=== PATIENT | male | born 1985 | race Caucasian/White ===

== ENCOUNTER 2024-04-04 12:24 | Outpatient (OUT) | payer MEDICARE, MEDICAID, SELFPAY ==
[2024-04-04 13:36] LABS: Basophils Percent Auto 0.1 % (0.2-2.0); Eosinophils Absolute Auto 0.5 10^3/uL (0.0-0.7); Eosinophils Percent Auto 6.7 % (0.9-7.0); Hematocrit 34.6 % (42.0-54.0); Hemoglobin 11.2 g/dL (14.0-18.0); Immature Granulocytes Abs Auto 0.02 10^3/uL (0.00-0.03); Immature Granulocytes Pct Auto 0.3 % (0.0-0.5); Lymphocytes Absolute Auto 2.4 10^3/uL (1.2-3.8); Lymphocytes Percent Auto 31.2 % (20.5-60.0); Mean Corpuscular HGB Conc 32.4 g/dL (29.9-35.2); Mean Corpuscular Hemoglobin 31.9 pg (25.9-34.0); Mean Corpuscular Volume 98.6 fL (80.0-94.0); Monocytes Absolute Auto 0.8 10^3/uL (0.3-0.8); Monocytes Percent Auto 9.9 % (1.7-12.0); Neutrophils Percent Auto 51.8 % (43.0-75.0); Platelet Count 192 10^3/uL (150-450); Red Blood Count 3.51 10^6/uL (4.70-6.10); Red Cell Distribution Width 13.7 % (11.0-15.0); White Blood Count 7.7 10^3/uL (4.0-11.0)
[2024-04-04 15:56] LABS: Alanine Aminotransferase 28 U/L (16-63); Albumin Globulin Ratio 1.3; Alkaline Phosphatase 166 U/L (46-116); Anion Gap 18.3; Aspartate Amino Transferase 21 U/L (15-37); Bilirubin Total 0.3 mg/dL (0.2-1.0); Calcium 9.5 mg/dL (8.5-10.1); Carbon Dioxide 20.8 mmol/L (21.0-32.0); Chloride 106 mmol/L (98-107); Chol HDL Ratio 3.1; Cholesterol 173 mg/dL (<=200); Estimated GFR (African America 22 (>=60); Estimated GFR (Non-African Ame 18 (>=60); Free T3 2.39 pg/mL (2.18-3.98); Glucose 95 mg/dL (74-106); HDL Cholesterol 56 mg/dL (40-60); LDL Cholesterol Calculated 91.2 mg/dL; Potassium 5.1 mmol/L (3.5-5.1); Prostate Specific Antigen Scrn 0.93 ng/mL (<=4.00); Sodium 140 mmol/L (136-145); Thyroid Stimulating Hormone 1.949 uIU/mL (0.358-3.740); Triglycerides 129 mg/dL (<=150); VLDL CHOLESTEROL 25.8 mg/dL
[2024-04-04 15:59] LABS: Estimated Average Glucose 100 mg/dL; Glycohemoglobin A1C 5.1 % (4.5-6.2)
== END 2024-04-04 12:25 | disposition home or self-care (01) ==
LOC: LAB 12:29
PROVIDERS: PCP Family Medicine; Visit Provider Family Medicine
DX: D64.9 Anemia, unspecified (principal); N18.6 End stage renal disease; I15.1 Hypertension secondary to other renal disorders; J96.11 Chronic respiratory failure with hypoxia; E21.3 Hyperparathyroidism, unspecified
CPT/HCPCS: 36415; 80053; 80061; 83036; 84436; 84443; 84481; 85025; G0103

== ENCOUNTER 2024-04-09 16:42 | Outpatient (REF) | payer MEDICARE, MEDICAID, SELFPAY ==
[2024-04-09 17:01] LABS: Internal Control Within Normal Limits; Occult Blood Negative
== END 2024-04-09 16:43 | disposition home or self-care (01) ==
LOC: LAB 16:42
PROVIDERS: PCP Family Medicine; Visit Provider Family Medicine
DX: N18.6 End stage renal disease (principal); I15.1 Hypertension secondary to other renal disorders; D64.9 Anemia, unspecified; J96.11 Chronic respiratory failure with hypoxia; E21.3 Hyperparathyroidism, unspecified
CPT/HCPCS: G0328

== ENCOUNTER 2024-08-22 15:19 | Outpatient (OUT) | payer MEDICARE, MEDICAID, SELFPAY ==
--- NOTE | 2024-08-22 15:20 | XR_ITS ---
The [address] [address] Patient Name: RIGO REDDY MRN: [id number] date: 1985 Sex: M Assigned Patient Location: RAD Current Patient Location: RAD Accession/Order Number: [id number] Exam Date: 08/22/2024 15:23 Report Date: 08/22/2024 15:45 At the request of: DEA COCHRAN Procedure: XR chest 2V EXAM: CHEST 2 VIEWS HISTORY: Acute Cough TECHNIQUE: PA and lateral views chest. COMPARISON: None. FINDINGS: The lungs are hyperinflated with background emphysema that is worse in the right upper lobe. There is no focal lung consolidation, pleural effusion or pneumothorax. There is a vague 8 mm nodule in the right upper lobe. Pulmonary vasculature is within normal limits. The cardiomediastinal silhouette is normal. XR/XR chest 2V IMPRESSION: 1. Chronic obstructive pulmonary disease without focal consolidation or effusion. Recommend followup imaging if symptoms worsen or persist. 2. Vague 8 mm nodule in the right upper lobe. Given background emphysema, recommend nonemergent/outpatient chest CT for further evaluation. Electronically authenticated by: DIVYA HO Date: 08/22/2024 15:45
== END 2024-08-22 15:20 | disposition home or self-care (01) ==
LOC: RAD 15:19
PROVIDERS: PCP Family Medicine; Visit Provider Internal Medicine
DX: R05.1 Acute cough (principal); R91.1 Solitary pulmonary nodule
CPT/HCPCS: 71046

== ENCOUNTER 2024-09-26 15:00 | Outpatient (OUT) | payer MEDICARE, MEDICAID, SELFPAY ==
--- NOTE | 2024-09-26 15:03 | CT_ITS ---
[address] [address] Patient Name: RIGO REDDY MRN: [id number] date: 1985 Sex: M Assigned Patient Location: CT Current Patient Location: Accession/Order Number: [id number] Exam Date: 09/26/2024 15:28 Report Date: 09/27/2024 07:53 At the request of: DEA COCHRAN Procedure: CT chest wo con EXAMINATION: CT chest wo con HISTORY: Solitary Pulmonary Nodule COMPARISON: 03/18/2021, 08/22/2024 TECHNIQUE: Multi-planar CT images were created with IV contrast. Axial, Coronal, and Sagittal images. Dose reduction techniques were achieved by using automated exposure control and/or adjustment of mA and/or kV according to patient size and/or use of iterative reconstruction technique. FINDINGS: LUNGS: Severe diffuse bilateral centrilobular emphysema. Moderate diffuse bronchiectasis with peribronchial thickening. Scattered stable nodules the largest solid noncalcified nodule in the right lung measures 7.9 mm along the major fissure axial image #29. Area of ill-defined soft tissue density medial basilar segment of the left lower lobe measuring 1.8 x 1.4 cm, axial image 77 PLEURA: No mass, effusion, or pneumothorax. VASCULATURE: No abnormality. SIRENA: No mass or adenopathy. MEDIASTINUM: No mass or adenopathy. CARDIAC: No enlargement or pericardial effusion Coronary arteries: Mild calcifications AORTA: No aortic aneurysm. CHEST WALL: No mass or axillary adenopathy. BONES: No bone lesion or fracture. LIMITED ABDOMEN: Severe bilateral renal atrophy OTHER: Negative. CT/CT chest wo con IMPRESSION: Stable emphysema and scattered pulmonary nodules Lung-RADS 2 FINDINGS: Solid nodule(s): <6 mm or new <4 mm; part solid nodule(s) <6 mm total diameter on baseline screening; nonsolid nodule(s) (GGN): <20 mm or greater than/equal to 20 mm and unchanged or slowly growing; category 3 or 4 nodules unchanged for greater than/equal to 3 months. MANAGEMENT: Continue annual screening with LDCT in 12 months. Electronically authenticated by: JUSTYN ZARAGOZA Date: 09/27/2024 07:53
== END 2024-09-26 15:01 | disposition home or self-care (01) ==
LOC: CT 15:00
PROVIDERS: PCP Family Medicine; Visit Provider Internal Medicine
DX: R91.1 Solitary pulmonary nodule (principal); J43.9 Emphysema, unspecified
CPT/HCPCS: 71250

== ENCOUNTER 2024-10-18 17:53 | Emergency (ER) | payer MEDICARE, MEDICAID, SELFPAY ==
[2024-10-18 18:01] VITALS: BP 129/97; PULSE 97; TEMP 37.4; O2SAT 97; BMI 22.2
--- OUTSIDE RECORDS SUMMARY | 2024-10-18 18:08 | XMS_ITS | CCD ---
Author Organization [facility] Care Team Providers Care [employer] Associate Name Role Phone PHYSICIAN, DEFAULT Unavailable Unavailable PHYSICIAN, DEFAULT Unavailable Unavailable DRE JAFFE Unavailable Unavailable Denis Melvin MD Primary Care Provider JUSTYN ALVAREZ Referring Unavailable DENIS MELVIN Primary Care Unavailable Denis Melvin MD Primary Care Provider DR DENIS MELVIN Admitting Unavailable OLEGARIO, DR BARRIOS Attending Unavailable DR DENIS MELVIN Primary Care Unavailable DR DENIS MELVIN Consulting Unavailable COTY MARVIN Admitting Unavailable COTY MARVIN Attending Unavailable OLEGARIO, DR BARRIOS Primary Care Unavailable COTY MARVIN Consulting Unavailable MD Denis Melvin Primary Care Provider MD Dre Cardoza Emergency Provider MD Sofia Barber Admit Provider MD Sofia Barber Attending Provider MD Melina Garcia Other Provider MD Kostas Wade Other Provider DO Van Bernardo Other Provider MD Ceferino Godinez Attending Provider MD Alejandro Escalera Other Provider [phone] ELOINA Mendieta Emergency Provider MD Michael Gonzalez Admit Provider MD Michael Gonzalez Attending Provider MD Gabby Bedolla Other Provider Asaad, MD Imad Other Provider MD Spencer Dyson Admit Provider MD Spencer Dyson Attending Provider Kostas Wade Unavailable MD Jessica Macdonald Other Provider MD Aureliano Rangel Other Provider MD David Zayas Other Provider VICTORIA Rose Other Provider MD Jami Grimes Other Provider MD Juve Blackwell Other Provider [phone] MD Edna Blanco Other Provider [phone] DO Jared Horvath Other Provider MD Kiya Ortega Other Provider MD Dre Kowalski Other Provider MD Antonio Lopez Other Provider DO Broderick Sesay Other Provider MD Rajendra Pierce Attending Provider MD Rojas No Other Provider [phone] Denis Melvin MD Primary Care Provider MD Kostas Wade Attending Provider Jessica Macdonald Consulting Unavailable Spencer Dyson Admitting Unavailable Denis Melvin Primary Care Unavailable Rajendra Pierce Attending Unavailable Jose, Melina Consulting Unavailable Aureliano Rangel Consulting Unavailable David Zayas Consulting Unavailable Gabby Bedolla Consulting Unavailable Alondra Rose Consulting Unavailable Jami Grimes Consulting Unavailable Juve Blackwell Consulting UnavailEdna Ruiz Consulting Unavailable Jared Horvath Consulting Unavailabl e Kiya Ortega Consulting Unavailable Dre Kowalski Consulting Unavailable Antonio Lopez Consulting Unavailable Broderick Sesay Consulting Unavailable Rojas No Consulting Unavailable Jose, Melina Consulting Unavailable Denis Melvin Primary Care Unavailable Sofia Barber Admitting Unavailable Herbert Ceferino Attending Unavailable Kostas Wade Consulting Unavailable Van Bernardo Consulting Unavailable Alejandro Escalera Consulting UnavailGabby Willson Consulting Unavailable Michael Gonzalez Attending Unavailable Denis Melvin Primary Care Unavailable Daromar Obaydadanie M Admitting Unavailable Asaad, Imad Consulting Unavailable Kostas Wade Admitting Unavailable Kostas Wade Attending Unavailable COTY MARVIN Attending Unavailable Denis Melvin MD Primary Care Provider [phone] Denis Melvin MD Primary Care Provider [phone] JUSTYN ALVAREZ Admitting Unavailable JUSTYN ALVAREZ Attending Unavailable DENIS MELVIN Primary Care Unavailable DENIS MELVIN Primary Care Unavailable JUSTYN ALVAREZ Admitting Unavailable JUSTYN ALVAREZ Attending Unavailable DENIS MELVIN Primary Care Unavailable JUSTYN ALVAREZ Attending Unavailable JUSTYN ALVAREZ Referring Unavailable Allergies Allergy Classification Reported Allergen(s) Allergy Type Date of Onset Reaction(s) Facility (9 sources) Latex Drug allergy (disorder) 0 [facility], Hives [facility] Repository (9 sources) Ciprofloxacin Drug Allergy 1 [facility] (10 sources) Latex Propensity to adverse reactions to drug 1 Hives, Other (See Comments) [facility] Work Phone: (1 source) Ciprofloxacin Drug Allergy [facility] Repository (10 sources) Ciprofloxacin; Translations: [ciprofloxacin] Drug Allergy 3 Unknown, Other [facility] (1 source) Latex Drug allergy (disorder) 3 [facility] Repository (1 source) Latex Allergy to substance 1 Hives, Rash [facility] Medications Current Medications Medication Drug Class(es) Dates Sig (Normalized) Sig (Original) Acetaminophen (5 sources) Start: 05-26-2023 acetaminophen (TYLENOL) tablet 650 mg Start: 01-18-2022 End: 02-01-2022 take 2 tablets by mouth every eight hours as needed acetaminophen (TYLENOL EXTRA STRENGTH) 500 mg tablet Take 2 tablets (1,000 mg total) by mouth every 8 (eight) hours as needed. 01/18/2022 Active Albuterol (1 source) beta2-Adrenergic Agonist Start: 05-26-2023 albuterol (PROVENTIL) (2.5 MG/3ML) 0.083% nebulizer solution 15 mg apixaban 2.5 mg oral tablet (15 sources) Factor Xa Inhibitor Start: 07-21-2023 End: 07-16-2024 take 1 tablet by mouth twice daily at bedtime ELIQUIS 2.5 mg tablet Indications: History of pulmonary embolism TAKE 1 TABLET BY MOUTH TWICE DAILY (IN THE MORNING and BEFORE bedtime) 60 tablet 11 07/16/2024 Active Start: 07-08-2021 End: 05-27-2023 take 1 tablet by mouth twice daily Apixaban (Eliquis) 2.5 mg Tablet Discontinued 2.5 MG PO Twice daily April 28, 2023 12:00am May 17, 2023 7:20pm ascorbic acid 60 mg / calcium pantothenate 10 mg / d-biotin 0.3 mg / folic acid 0.8 mg / niacinamide 20 mg / pyridoxine 10 mg / riboflavin 1.7 mg / thiamine 1.5 mg / vitamin b12 0.006 mg oral tablet (7 sources) Vitamin B12, Vitamin C Start: 12-06-2021 take 1 tablet by mouth once daily B Vngkazy-B-Ehyde Acid (TAVIA-BETY) TABS TAKE 1 TABLET BY MOUTH DAILY 0 12/06/2021 Active B Tjdowjx-S-Httrcm-E- Min-FA (DIALYVITE 3000) 3 MG TABS (1 source) B Kvdzbao-B-Dmtjhd-E-Mi n-FA (DIALYVITE 3000) 3 MG TABS Take by mouth Active B Zgkgkfu-E-Xyklf Acid (Renal Vitamin) 0.8 MG tablet (1 source) take 1 tablet by mouth in the morning B Gxatcme-B-Skofb Acid (Renal Vitamin) 0.8 MG tablet Take 1 tablet by mouth in the morning. Active B Complex-Vitamin C-Folic Acid (Dialyvite) 100-1 mg Tablet (7 sources) Start: 04-28-2023 take 1 tablet by mouth once daily at bedtime B Complex-Vitamin C-Folic Acid (Dialyvite) 100-1 mg Tablet Active 1 TAB PO Daily at bedtime April 28, 2023 12:00am Start: 04-28-2023 take 1 tablet by tor once daily B Complex-Vitamin C-Folic Acid (Dialyvite) 100-1 mg Tablet Active 1 TAB PO Daily April 28, 2023 12:00am calcium acetate 667 mg oral capsule (2 sources) take 1 capsule by mouth three times daily at mealtime calcium acetate (PHOSLO) 667 MG CAPS capsule Take 1 capsule by mouth 3 times daily (with meals) Active carboxymethylcellulose sodiu m 10 mg/ml ophthalmic solution (2 sources) take 1 drop(s) into the eye(s) twice daily carboxymethylcellulose 1 % ophthalmic solution Place 1 drop into both eyes 2 times daily Active carboxymethylcel lulose sodium 1 % drops 1 drop. Active clindamycin 0.01 mg/mg topical gel (3 sources) Lincosamide Antibacterial clindamycin (CLINDAGEL) 1 % gel Apply topically 2 times daily Apply topically 2 times daily. Active clonazePAM 0.5 mg oral tablet (19 sources) Benzodiazepine Start: 05-27-20 take 1 tablet by mouth in the morning, then take 1 tablet by mouth in the evening, then take 1 tablet by mouth at bedtime clonazePAM (KlonoPIN) 0.5 MG tablet Indications: Jerking TAKE 1 TABLET BY MOUTH IN THE MORNING, then ONE TABLET BY MOUTH IN THE EVENING, then ONE TABLET BY MOUTH BEFORE bedtime 90 tablet 5 04/18/2024 Active Start: 04-28-2023 take 0.5 mg by mouth three times daily Clonazepam Active 0.5 MG PO Three times daily April 28, 2023 12:00am dextromethorphan hydrobromide 20 mg / quiNIDine sulfate 10 mg oral capsule (20 sources) Antiarrhythmic, Uncompetitive P-atskfc-C-aspartate Receptor Antagonist, Cytochrome P450 2D6 Inhibitor, Sigma-1 Agonist Start: 10-31-2023 End: 08-14-2024 take 1 capsule by mouth in the morning Nuedexta 20-10 MG capsule Indications: Pseudobulbar affect TAKE 1 CAPSULE BY MOUTH IN THE MORNING and ONE CAPSULE BY MOUTH BEFORE bedtime 60 capsule 5 08/14/2024 Active Start: 04-28-2023 take [address] [facility] every twelve hours Dextromethorphan-Quinidine (Nuedexta) 20 -10 mg Capsule Active 1 CAP PO Q12H April 28, 2023 12:00am Start: 12-06-2021 take [address] [facility] twice daily NUEDEXTA 20-10 MG CAPS per capsule TAKE 1 CAPSULE BY MOUTH TWICE DAILY 12/06/2021 Active Dialyvite - (1 source) take 1 tablet by mouth once daily Dialyvite - 1 tablet Orally Once a day Active ertapenem 1000 mg injection (9 sources) Penem Antibacterial Start: take 0.5 g intravenously once daily Ertapenem Active 0.5 GM IV Daily May 19, 2023 12:00am Start: 05-03-2023 End: 05-17-2023 Ertapenem Discontinued 0.5 G M IV Q24H May 03, 2023 12:00am May 17, 2023 7:23pm written 05/07 x28 days Start: 05-03-2023 take 0.5 g intraveno usly every twenty-four hours Ertapenem Active 0.5 GM IV Q24H May 03, 2023 12:00am Ertapenem Sodium 1 GM as directed Injection Active 2 ml fentaNYL 0.05 mg/ml injection (3 sources) Opioid Agonist Start: 05-27-2023 fentaNYL (SUBL IMAZE) injection 50 mcg Start: 05-27-2023 fentaNYL (SUBL IMAZE) injection 25 mcg Start: 01-18-2022 fentaNYL (SUBL IMAZE) injection 25 mcg FIBER, CORN DEXTRIN, PO (1 source) FIBER, CORN DEXT RIN, PO Take by mouth Active 1 ml heparin sodium, porcine 1000 unt/ml injection (5 sources) Unfractionated Heparin, Anti-coagulant Start: 05-27-2023 heparin (porcine) injection 2,300 Units Start: 05-26-2023 inject 1 dose by sub cutaneous injection three times daily 5,000 Units, SubCUTAneous, EVERY 8 HOURS SCHEDULED (3 times per day), First dose on Mon05/26/23 at 2330, Until Discontinued Start: 05-26-2023 End: 05-26-2023 heparin (porcine) injection 5,000 Units Start: 01-18-2022 End: 01-18-2022 heparin (porcine) injection 1,900 Units 1 ml hydrALAZINE hydrochloride 20 mg/ml injection (1 source) Arteriolar Vasodilator Start: 05-27-2023 hydrALAZINE (APRESOLINE) injection 10 mg lidocaine 25 mg/ml / prilocaine 25 mg/ml topical cream (10 sources) Antiarrhythmic, Amide Local Anesthetic Start: 06-30-2023 lidocaine-prilocaine (Emla) 2.5-2.5 % cream APPLY to dialysis access site 1 (ONE) HOUR prior to treatment MONDAY, MONDAY, and Monday06/30/2023 Active Start: 04-28-2023 Lidocaine-Pril ocaine Active 1 APPLIC TOPICAL Once April 28, 2023 12:00am 45 minutes prior to dialysis Lidocaine-Priloc ghassan 2.5-2.5 % as directed Externally Active Maltodextrin (2 sources) Start: 05-17-2023 Maltodextrin A ctive 1 EACH PO Daily May 17, 2023 12:00am given mixed in apple juice. Maltodextrin (Fiber Powder) Powder (1 source) Start: 05-17-2023 Maltodextrin ( Fiber Powder) Powder Active 1 EACH PO Daily May 17, 2023 12:00am given mixed in apple juice. 0.5 ml meperidine hydrochloride 50 mg/ml injection (1 source) Opioid Agonist Start: 01-18-2022 meperidine (DEMEROL) injection SOLN 12.5 mg metoprolol tartrate 25 mg oral tablet (19 sources) beta-Adrenergic Radha Start: 04-25-2021 take 1 tablet by mouth twice daily metoprolol tartrate (LOPRESSOR) 25 MG tablet Take 1 tablet by mouth 2 times daily 04/25/2021 Active metoprolol tartr ate (Lopressor) 25 MG tablet every 12 (twelve) hours. Active OLANZapine 7.5 mg oral tablet (3 sources) Atypical Antipsychotic Start: 02-26-2024 End: 08-14-2024 take 1 tablet by mouth at bedtime OLANZapine (ZyPREXA) 7.5 MG tablet Indications: Agitation TAKE 1 TABLET BY MOUTH AT BEDTIME 30 tablet 5 08/14/2024 Active omeprazole 20 mg delayed release oral tablet (20 sources) Proton Pump Inhibitor Start: 05-07-2023 take 20 mg by mouth twice daily Omeprazole Active 20 MG PO Twice daily 60 May 07, 2023 12:49pm Start: 04-28-2023 End: 05-07-2023 take 20 mg by mouth once daily Omeprazole Discontinued 20 MG PO Daily April 28, 2023 12:00am May 07, 2023 1:08pm take 1 capsule by mo uth twice daily omeprazole (PRILOSEC) 20 MG delayed release capsule Take 1 capsule by mouth 2 times daily Active take 2 capsules by m outh every twelve hours omeprazole (PriLOSEC) [address] capsule Take 2 capsules by mouth every 12 (twelve) hours Active 2 ml ondansetron 2 mg/ml injection (2 sources) Serotonin-3 Receptor Antagonist Start: 05-27-2023 End: 05-28-2023 ondansetron (ZOFRAN) injection 4 mg Start: 01-18-2022 End: 01-18-2022 ondansetron (ZOFRAN) injecti on 4 mg ondansetron (ZOFRAN-ODT) disintegrating tablet 4 mg (1 source) Start: 05-26-2023 ondansetron (Z OFRAN-ODT) disintegrating tablet 4 mg psyllium 3400 mg powder for oral suspension (1 source) take 1 dose by mouth in the morning psyllium (METAMUCIL) powder Take 1 packet by mouth in the morning. Active RENAL VITAMIN 0.8 mg tablet (1 source) Start: 07-02-2022 take 1 tablet by mouth in the morning RENAL VITAMIN 0.8 mg tablet Take 1 tablet by mouth in the morning. 07/02/2022 Active 1000 ml sodium chloride 9 mg/ml injection (17 sources) Start: 09-12-2024 IntraVENous, a t 25 mL/hr, CONTINUOUS, Starting on Mon09/12/24 at 1430, Pre-Procedure(Cath) Start: 05-27-2023 sodium chlorid e flush 0.9 % injection 5-40 mL Start: 05-27-2023 0.9 % sodium c hloride infusion Start: 05-27-2023 sodium chlorid e flush 0.9 % injection 5-40 mL Start: 05-26-2023 IntraVENous, a t 5-250 mL/hr, PRN, if patient receiving piggyback infusions and maintenance fluids are not ordered OR KVO fluids to protect IV site / prevent frequent line interruptions/ long duration, Starting on Mon05/26/23 at 2305 For piggyback infusion, administer at same rate as piggyback for a total of 25 mL. Enter 25 mL into dose field and piggyback rate into rate field of order. If piggyback is infusing at a rate less than 100 mL/hr, enter 25 mL into dose field and 100 mL/hr into rate field of order. For KVO fluids, enter rate of 20 mL/hr or less into rate field of order. Start: 05-26-2023 take 1 dose intraven ously twice daily 5-40 mL, IntraVENous, EVERY 12 HOURS SCHEDULED (2 times per day), First dose on Mon05/26/23 at 2330, Until Discontinued For Line Patency: Peripheral IV = 5 mL; Midline or Central Line = 10 mL/lumen. If following IV push medication, administer flush at same rate as the IV push. Flush volume is determined by type of infusion therapy being given. For non-viscous solutions use: Peripheral IV = 5 mL Midline or Central Line = 10 mL/lumen For viscous solutions (i.e. blood components, parenteral nutrition, contrast media, or after obtaining blood sample) use: Peripheral IV = 10 mL Midline or Central Line = 20 mL/lumen Start: 05-26-2023 take 10 mL intraveno usly once as needed 10 mL, IntraVENous, PRN, Starting on Mon05/26/23 at 2305, Until Discontinued, Line Care, After every IV line use Start: 02-02-2023 sodium chlorid e flush 0.9 % injection 5-40 mL Start: 02-02-2023 0.9 % sodium c hloride infusion Start: 02-02-2023 sodium chlorid e flush 0.9 % injection 5-40 mL Start: 01-18-2022 sodium chlorid e flush 0.9 % injection 5-40 mL Start: 01-18-2022 sodium chlorid e flush 0.9 % injection 5-40 mL Start: 01-18-2022 0.9 % sodium c hloride infusion warfarin sodium 2 mg oral tablet (2 sources) Vitamin K Antagonist Start: 05-05-2021 End: 01-18-2022 warfarin (COUMADIN) 2 MG tablet Take 2-4 mg by mouth daily 0 05/05/2021 01/18/2022 Discontinued (LIST CLEANUP) wheat dextrin 3000 mg powder for oral solution (1 source) Start: 09-18-2004 Wheat Dextrin (Benefiber) powder as directed Orally 09/18/2004 Active Completed/Discontinued Medications Medication Drug Class(es) Dates Sig (Normalized) Sig (Original) 120 actuat albuterol 0.1 mg/actuat / ipratropium bromide 0.02 mg/actuat inhalation spray (7 sources) Anticholinergic, beta2-Adrenergic Agonist Start: 04-28-2023 End: 04-29-2023 take 1 puff(s) by inhalation every four hours Ipratropium-Albuter ol Discontinued 1 PUFF INHALATION Q4H April 28, 2023 12:00am April 29, 2023 7:31am bumetanide 1 mg oral tablet (19 sources) Loop Diuretic Start: 05-27-2023 take 2 mg by mouth once daily 2 mg, Oral, DAILY, First dose on 05/27/23 at 0900, Until Discontinued Start: 04-01-2021 take 1 tablet by tor th once daily bumetanide (BUMEX) 2 MG tablet Take 1 tablet by mouth daily 04/01/2021 Active busPIRone hydrochloride 10 mg oral tablet (6 sources) Start: 08-02-2022 take 10 mg by mouth once daily 10 mg, Oral, Nightly, First dose on Mon05/26/23 at 2200, Until Discontinued dilTIAZem hydrochloride 30 mg oral tablet (14 sources) Calcium Channel Radha Start: 05-27-2023 take 30 mg by mouth once daily 30 mg, Oral, DAILY, First dose on 05/27/23 at 0900, Until Discontinued Start: 04-25-2021 take 1 tablet by tor th three times daily dilTIAZem (CARDIZEM) 30 MG tablet Take 1 tablet by mouth 3 times daily 04/25/2021 Active folbee plus tablet 1 tablet (1 source) Start: 05-27-2023 take 1 tablet by mouth once daily 1 tablet, Oral, DAILY, First dose on 05/27/23 at 0900, Until Discontinued ipratropium bromide 0.2 mg/ml inhalation solution (17 sources) Anticholinergic Start: 05-27-2023 0.5 mg (500 mc g), Nebulization, 4 TIMES DAILY RESP, First dose on Mon05/27/23 at 0800, Until Discontinued Initiate RT Bronchodilator Protocol: Yes - Inpatient Protocol Start: 04-29-2023 take 500 ug by inhal ation every eight hours Ipratropium [place] Active 500 MCG INHALATION Q8H April 29, 2023 12:00am Start: 04-29-2023 take 1 mL by inhalat ion every eight hours Ipratropium [place] Active 2.5 ML INHALATION Q8H April 29, 2023 12:00am take 2.5 mL by inhal ation three times daily ipratropium (ATROVENT) 0.02 % nebulizer solution Inhale 2.5 mLs into the lungs 3 times daily Active ipratropium (Atr ovent) 0.02 % nebulizer solution every 8 (eight) hours. Active ipratropium (ATR OVENT) 0.02 % nebulizer solution Inhale 2.5 mL (0.5 mg total) by nebulization in the morning and 2.5 mL (0.5 mg total) at noon and 2.5 mL (0.5 mg total) in the evening. Active take 500 ug by inhal ation three times daily ipratropium (ATROVENT) 0.02 % nebulizer solution Inhale 500 mcg into the lungs 3 times daily 0 Active levalbuterol 0.417 mg/ml inhalation solution (20 sources) beta2-Adrenergic Agonist Start: 05-26-2023 1.25 mg (1 ampule), Nebulization, EVERY 6 HOURS PRN, Starting on Mon05/26/23 at 2148, Until Discontinued, Wheezing Start: 04-29-2023 levalbuterol ( XOPENEX) nebulizer solution 1.25 mg Start: 04-28-2023 End: 04-29-2023 take 2.5 mg by inhalation every four hours Levalbuterol Hcl Discontinued 2.5 MG INHALATION Q4H April 28, 2023 12:00am April 29, 2023 7:27am take 3 mL by inhalat ion three times daily levalbuterol (XOPENEX) 1.25 MG/3ML nebulizer solution Inhale 3 mLs into the lungs 3 times daily Active take 3 mL by inhalat ion three times daily levalbuterol (XOPENEX) 1.25 mg/3 mL nebulizer solution Inhale 3 mL (1.25 mg total) by nebulization 3 (three) times a day. Active take 3 mL by inhalat ion every eight hours as needed Levalbuterol HCl 1.25 MG/3ML 3 mL as needed Inhalation every 8 hrs Active magnesium oxide 400 mg oral tablet (13 sources) Start: 12-06-2021 take 1 tablet by mouth twice daily magnesium oxide (MAG-OX) 400 (241.3 Mg) MG TABS tablet TAKE 1 TABLET BY MOUTH TWICE DAILY 0 12/06/2021 Active Start: 03-31-2021 End: 08-18-2022 take 400 mg by mouth twice daily 400 mg, Oral, 2 TIMES DAILY, First dose on 05/27/23 at 0900, Until Discontinued pantoprazole 40 mg delayed release oral tablet (1 source) Proton Pump Inhibitor Start: 05-27-2023 take 40 mg by mouth once daily before breakfast 40 mg, Oral, DAILY BEFORE BREAKFAST, First dose on 05/27/23 at 0700, Until Discontinued Do not crush or break. Substituted for Omeprazole (PRILOSEC). polyethylene glycol 3350 40902 mg powder for oral solution (1 source) Osmotic Laxative Start: 05-26-2023 17 g, Oral, DAILY PRN, Starting on Mon05/26/23 at 2305, Until Discontinued, Constipation First line therapy for constipation sildenafil 20 mg oral tablet (19 sources) Phosphodiesterase 5 Inhibitor Start: 05-27-2023 take 20 mg by mouth three times daily 20 mg, Oral, 3 TIMES DAILY, First dose on 05/27/23 at 0900, Until Discontinued Start: 04-28-2023 Sildenafil (Pu lm.Hypertension) Active 20 MG PO Three times daily April 28, 2023 12:00am administer doses at least 4-6 hours apart Problems Active Problems Problem Classification Problem Date Documented Date Episodic/Chronic Administrative/social admission (20 sources) Advance directive discussed with patient; Translations: [Other specified counseling] Onset: 3 05-01-2023 Episodic Chronic kidney disease (20 sources) End stage renal failure on dialysis; Translations: [End stage renal disease] Onset: 3 Chronic Chronic obstructive pulmonary disease and bronchiectasis (1 source) Panacinar emphysema; Translations: [Panlobular emphysema] Onset: 1 04-14-2021 Chronic Complication of device; implant or graft (11 sources) Arteriovenous fistula stenosis; Translations: [Stenosis of other vascular prosthetic devices, implants and grafts, initial encounter] Onset: 2 Chronic Complication of device; implant or graft (10 sources) Mechanical complication of arteriovenous surgical fistula; Translations: [Other mechanical complication of surgically created arteriovenous fistula, initial encounter] Onset: 3 05-18-2023 Episodic Congestive heart failure; nonhypertensive (1 source) Unspecified diastolic (congestive) heart failure; Translations: [UNSPECIFIED DIASTOLIC HEART FAILURE] Onset: 2 Chronic Deficiency and other anemia (3 sources) Anemia of chronic disease; Translations: [Anemia in other chronic diseases classified elsewhere] Onset: 3 05-27-2023 Chronic Deficiency and other anemia (1 source) Anemia in chronic kidney disease; Translations: [Anemia in chronic kidney disease] Onset: 3 Chronic Deficiency and other anemia (14 sources) Anemia, unspecified; Translations: [Anemia, unspecified] Onset: 2 05-09-2023 Episodic Deficiency and other anemia (9 sources) Anemia; Translations: [Anemia, unspecified] 05-09-2023 Episodic Delirium, dementia, and amnestic and other cognitive disorders (2 sources) Pseudobulbar affect; Translations: [Pseudobulbar affect] Onset: 3 08-14-2024 Chronic Developmental disorders (5 sources) Unspecified intellectual disabilities; Translations: [Cognitive developmental delay] Onset: 2 05-27-2023 Chronic Diabetes mellitus without complication (1 source) Other abnormal glucose; Translations: [OTHER ABNORMAL GLUCOSE] Onset: 2 Episodic Disorders of lipid metabolism (1 source) Hyperlipidemia, unspecified; Translations: [HYPERLIPIDEMIA UNSPECIFIED] Onset: 2 Chronic Gastrointestinal hemorrhage (13 sources) Hematochezia; Translations: [Melena] Onset: 3 05-06-2023 Episodic Hyperplasia of prostate (2 sources) Large prostate ; Translations: [Benign prostatic hyperplasia without lower urinary tract symptoms] Chronic Hypertension with complications and secondary hypertension (4 sources) Hypertensive heart disease with heart failure; Translations: [HTN HEART DISEASE W/HEART FAIL] Onset: 2 Chronic Inflammatory conditions of male genital organs (16 sources) Prostatitis; Translations: [Inflammatory disease of prostate, unspecified] Onset: 3 05-04-2023 Episodic Malaise and fatigue (7 sources) Asthenia; Translations: [Weakness] Onset: 3 05-17-2023 Episodic Other aftercare (1 source) 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 Episodic Other circulatory disease (3 sources) Arteriovenous fistula; Translations: [Arteriovenous fistula, acquired] 05-17-2023 Chronic Other circulatory disease (4 sources) Arteriovenous fistula, acquired; Translations: [Arteriovenous fistula, acquired] Onset: 3 05-17-2023 Chronic Other circulatory disease (1 source) Hypotension, unspecified; Translations: [Hypotension, unspecified] Onset: 3 Episodic Other diseases of kidney and ureters (6 sources) Secondary hyperparathyroidism; Translations: [Secondary hyperparathyroidism of renal origin] 04-29-2023 Chronic Other diseases of kidney and ureters (9 sources) Secondary hyperparathyroidism of renal origin; Translations: [Secondary hyperparathyroidism (of renal origin)] Onset: 3 05-07-2023 Chronic Other gastrointestinal disorders (6 sources) Occult blood in stools; Translations: [Other fecal abnormalities] 05-06-2023 Episodic Other gastrointestinal disorders (7 sources) Other fecal abnormalities; Translations: [Nonspecific abnormal findings in stool contents] Onset: 3 05-07-2023 Episodic Other nervous system disorders (4 sources) Polyneuropathy, unspecified; Translations: [POLYNEUROPATHY UNSPECIFIED] Onset: 2 Chronic Other nervous system disorders (1 source) Static encephalopathy; Translations: [Other encephalopathy] Onset: 3 01-31-2023 Chronic Paralysis (20 sources) Cerebral palsy; Translations: [Cerebral palsy, unspecified] Onset: 3 05-01-2023 Chronic Pneumonia (except that caused by tuberculosis or sexually transmitted disease) (17 sources) Pneumonia; Translations: [Pneumonia, unspecified organism] Onset: 3 04-28-2023 Episodic Pulmonary heart disease (1 source) Pulmonary hypertension, unspecified; Translations: [Pulmonary hypertension, unspecified] Onset: 3 Chronic Pulmonary heart disease (4 sources) H/O: pulmonary embolus; Translations: [Personal history of pulmonary embolism] Onset: 1 Resolved: 1 07-16-2024 Episodic Residual codes; unclassified (3 sources) Obstructive sleep apnea syndrome; Translations: [Obstructive sleep apnea (adult) (pediatric)] Onset: 3 05-27-2023 Chronic Residual codes; unclassified (2 sources) Restlessness and agitation; Translations: [Restlessness and agitation] Onset: 3 08-14-2024 Chronic Residual codes; unclassified (2 sources) History of cardiovascular surgery; Translations: [Other specified postprocedural states] Onset: 3 09-12-2024 Episodic Respiratory failure; insufficiency; arrest (adult) (8 sources) Acute on chronic hypoxemic and hypercapnic respiratory failure; Translations: [Acute and chronic respiratory failure with hypoxia] Onset: 3 05-19-2023 Chronic Respiratory failure; insufficiency; arrest (adult) (7 sources) Acute hypercapnic respiratory failure; Translations: [Acute respiratory failure with hypercapnia] Onset: 3 05-17-2023 Episodic Respiratory failure; insufficiency; arrest (adult) (1 source) Respiratory failure; insufficiency; arrest (adult); Translations: [Acute and chronic respiratory failure with hypercapnia] Onset: 3 Septicemia (except in labor) (16 sources) Sepsis; Translations: [Sepsis, unspecified organism] Onset: 3 04-29-2023 Episodic Septicemia (except in labor) (1 source) Septicemia (except in labor); Translations: [Sepsis, unspecified organism] Onset: 3 Past or Other Problems Problem Classification Problem Date Documented Date Episodic/Chronic Acute and unspecified renal failure (1 source) Acute renal failure syndrome; Translations: [Acute kidney failure, unspecified] Onset: 03-17-2021 04-13-2021 Episodic Bacterial infection; unspecified site (20 sources) Bacteremia caused by Gram-negative bacteria; Translations: [Bacteremia] Onset: 04-13-2021 04-29-2023 Episodic Mood disorders (1 source) Disturbance in mood; Translations: [Emotional lability] Onset: 01-31-2023 Resolved: 01-31-2023 01-31-2023 Episodic Mood disorders (1 source) Mood disorders Onset: 04-12-2021 04-12-2021 Other aftercare (1 source) Long-term current use of anticoagulant; Translations: [[facility] (current) use of anticoagulants] Onset: 03-24-2021 Resolved: 07-13-2021 07-13-2021 Episodic Other connective tissue disease (1 source) Spasm of cervical paraspinous muscle; Translations: [Other muscle spasm] Onset: 01-31-2023 01-31-2023 Episodic Other nervous system disorders (1 source) Spasmodic movement; Translations: [Fasciculation] Onset: 01-31-2023 01-31-2023 Episodic Residual codes; unclassified (4 sources) Complication associated with vascular device; Translations: [Other specified health status] Onset: 05-26-2023 05-26-2023 Episodic Residual codes; unclassified (1 source) Other specified postprocedural states; Translations: [Other specified postprocedural states] Onset: 06-13-2023 Episodic Urinary tract infections (4 sources) Escherichia coli urinary tract infection; Translations: [Urinary tract infection, site not specified] Onset: 04-12-2021 05-27-2023 Episodic Results Test Name Value Interpretation Reference Range Facility BUN, POCon 09-12-2024 Urea nitrogen [Mass/Vol] 21 mg/dL Normal 8-26 [facility] Creatinine W/GFR Point of Ca reon 09-12-2024 Creatinine [Mass/Vol] 2.7 mg/dL High 0.51 - 1.19 mg/dL [facility] eGFR, POC 30 Low - PINF [facility] Comment on above: These results are not intended for use in patients <18 years of age. eGFR results are calculated without a race factor using the 2020 CKD-EPI equation. Careful clinical correlation is recommended, particularly when comparing to results calculated using previous equations. The CKD-EPI equation is less accurate in patients with extremes of muscle mass, extra-renal metabolism of creatine, excessive creatine ingestion, or following therapy that affects renal tubular secretion. Creatinine w/GFR, POCon Creatinine [Mass/Vol] 2.7 mg/dL High 0.51-1.19 [facility] GFR/1.73 sq M.predicted among non-blacks MDRD (S/P/Bld) [Vol rate/Area] 30 mL/min/{1.73_m2} Low >60 [facility] Comment on above: Result Comment: These results are not intended for use in patients <18 years of age. eGFR results are calculated without a race factor using the 2020 CKD-EPI equation. Careful clinical correlation is recommended, particularly when comparing to results calculated using previous equations. The CKD-EPI equation is less accurate in patients with extremes of muscle mass, extra-renal metabolism of creatine, excessive creatine ingestion, or following therapy that affects renal tubular secretion. Glucose (POC)on 09-12-2024 Glucose [Mass/Vol] 98 mg/dL Normal 74-100 [facility] Hemoglobin and hematocrit, b loodon 09-12-2024 Hematocrit (Bld) [Volume fraction] 33 % Low 41 - 53 % [facility] Hemoglobin (Bld) [Mass/Vol] 11.2 g/dL Low 13.5 - 17.5 g/dL [facility] Hgb/Hct, POCon 09-12-2024 Hematocrit (Bld) [Volume fraction] 33 % Low 41-53 [facility] Hemoglobin (Bld) [Mass/Vol] 11.2 g/dL Low 13.5-17.5 [facility] Lactic Acid (POC)on 09-12-19 25 Lactate [Moles/Vol] 0.6 mmol/L Normal 0.56-1.39 [facility] Lactic Acid, POCon POC Lactic Acid 0.6 mmol/L 0.56 - 1.39 mmol/L [facility] No Panel Informationon 09-12 Interpretation and review of laboratory results Abnormal [facility] POCT Glucoseon 09-12-2024 Glucose [Mass/Vol] 98 mg/dL 74 - 100 mg/dL [facility] POCT urea (BUN)on 09-12-2024 Urea nitrogen [Mass/Vol] 21 mg/dL 8 - 26 mg/dL [facility] POTASSIUM (POC)on 09-12-2024 Potassium [Moles/Vol] 4.3 mmol/L 3.5 - 4.5 mmol/L [facility] Potassium (POC)on 09-12-2024 Potassium [Moles/Vol] 4.3 mmol/L Normal 3.5-4.5 [facility] SODIUM (POC)on 09-12-2024 Sodium [Moles/Vol] 142 mmol/L 138 - 146 mmol/L [facility] Sodium (POC)on 09-12-2024 Sodium [Moles/Vol] 142 mmol/L Normal 138-146 [facility] BUN, POCon 05-21-2024 Urea nitrogen [Mass/Vol] 55 mg/dL High 8-26 [facility] Chloride (POC)on 05-21-2024 Chloride [Moles/Vol] 106 mmol/L Normal 98-107 [facility] Creatinine w/GFR, POCon 05-05 Creatinine [Mass/Vol] 3.1 mg/dL High 0.51-1.19 [facility] GFR/1.73 sq M.predicted among non-blacks MDRD (S/P/Bld) [Vol rate/Area] 25 mL/min/{1.73_m2} Low >60 [facility] Comment on above: Result Comment: These results are not intended for use in patients <18 years of age. eGFR results are calculated without a race factor using the 2020 CKD-EPI equation. Careful clinical correlation is recommended, particularly when comparing to results calculated using previous equations. The CKD-EPI equation is less accurate in patients with extremes of muscle mass, extra-renal metabolism of creatine, excessive creatine ingestion, or following therapy that affects renal tubular secretion. Glucose (POC)on 05-21-2024 Glucose [Mass/Vol] 103 mg/dL High 74-100 [facility] Hgb/Hct, POCon 05-21-2024 Hematocrit (Bld) [Volume fraction] 36 % Low 41-53 [facility] Hemoglobin (Bld) [Mass/Vol] 12.4 g/dL Low 13.5-17.5 [facility] Potassium (POC)on 05-21-2024 Potassium [Moles/Vol] 5.6 mmol/L High 3.5-4.5 [facility] Sodium (POC)on 05-21-2024 Sodium [Moles/Vol] 136 mmol/L Low 138-146 [facility] PSA Total (Not a Screen)on 0 05-30-2023 PSA Total (Not a Screen) 2.840 ng/mL Normal 0.000-4.00 0 [facility] Comment on above: Result Comment: PERF ORMED BY: [facility] [address] [place] [address] PATHOLOGIST C.O.D. BILLER DI CORONEL M.D. Performed By: #### C BC, BMP #### [address] Prostate specific Ag [Mass/v olume] in Serum or PlasmaOrdered By: Kostas Wade on 05-30-2023 Prostate specific Ag [Mass/Vol] 2.840 ng/mL 0.000-4.00 0 [facility] Basic Metabolic Panel w/ Ref kortney to MGon 05-27-2023 Anion gap [Moles/Vol] 18 mmol/L High 9 - 17 mmol/L [email or web address] Calcium [Mass/Vol] 8.6 mg/dL 8.6 - 10. 4 mg/dL [email or web address] Chloride [Moles/Vol] 103 mmol/L 98 - 10 7 mmol/L [email or web address] CO2 [Moles/Vol] 18 mmol/L Low 20 - 31 mmol/L [email or web address] Creatinine [Mass/Vol] 6.1 mg/dL Critically high 0.7 - 1.2 mg/dL [email or web address] GFR/1.73 sq M.predicted MDRD (S/P/Bld) [Vol rate/Area] 11 mL/min/{1.73_m2} Low - PINF [email or web address] Comment on above: These results are not intended for use in patients <18 years of age. eGFR results are calculated without a race factor using the 2020 CKD-EPI equation. Careful clinical correlation is recommended, particularly when comparing to results calculated using previous equations. The CKD-EPI equation is less accurate in patients with extremes of muscle mass, extra-renal metabolism of creatine, excessive creatine ingestion, or following therapy that affects renal tubular secretion. Glucose [Mass/Vol] 89 mg/dL 70 - 99 mg/dL [facility] Interpretation and review of laboratory results Abnormal [facility] Potassium [Moles/Vol] 4.5 mmol/L 3.7 - 5.3 mmol/L [facility] Sodium [Moles/Vol] 139 mmol/L 135 - 144 mmol/L [facility] Urea nitrogen [Mass/Vol] 45 mg/dL High 6 - 20 mg/dL [facility] CBC with Auto Differentialon 05-27-2023 Basophils (Bld) [#/Vol] B ON [facility] Basophils/100 WBC (Bld) 0 % 0 - 2 % B ON [facility] Eosinophils (Bld) [#/Vol] 0.70 10*3/uL High [facility] Eosinophils/100 WBC (Bld) 10 % High 1 - 4 % [facility] Erythrocyte distribution width (RBC) [Ratio] 14.5 % High 11.8 - 14.4 % [facility] Hematocrit (Bld) [Volume fraction] 38.3 % Low 40.7 - 50.3 % [facility] Hemoglobin (Bld) [Mass/Vol] 11.3 g/dL Low 13.0 - 17.0 g/dL [facility] Immature granulocytes (Bld) [#/Vol] 0.03 10*3/uL [facility] Immature granulocytes/100 WBC (Bld) 0 % 0 [facility] Interpretation and review of laboratory results Abnormal [facility] Lymphocytes/100 WBC (Bld) 24 % 24 - 43 % [facility] Lymphocytes/100 WBC (Bld) 1.62 % [facility] MCH (RBC) [Entitic mass] 30.0 pg 25.2 - 33.5 pg [facility] MCHC (RBC) [Mass/Vol] 29.5 g/dL 28.4 - 34.8 g/dL [facility] MCV (RBC) [Entitic vol] 101.6 fL 82.6 - 102.9 fL [facility] Monocytes/100 WBC (Bld) 10 % 3 - 12 % B ON [facility] Monocytes/100 WBC (Bld) 0.68 % B ON [facility] Neutrophils/100 WBC (Bld) 56 % 36 - 65 % [facility] Nucleated RBC/100 WBC (Bld) [Ratio] 0.0 % 0.0 per 100 WBC [facility] Platelet mean volume (Bld) [Entitic vol] 9.6 fL 8.1 - 13.5 fL [facility] Platelets (Bld) [#/Vol] 210 10*3/uL [facility] RBC (Bld) [#/Vol] 3.77 10*6/uL Low 4.21 - 5.77 m/uL [facility] RBC (Bld) [#/Vol] ANISOCYTOSIS PRESENT [facility] Segmented neutrophils/100 WBC (Bld) 3.65 % [facility] WBC other (Bld) [#/Vol] 6.7 B ON [facility] Cath hemo interfaceOrdered B y: User Epic on 05-27-2023 Body surface area Derived from formula 1.73 m2 [facility] Work Phone: Invasive vascular procedureo n 05-27-2023 Please see operative note [facility] CV CPACS HEMO [facility] Radiology Study observation (narrative) [facility] No Panel Informationon 05-27 No acute findings. [facility] EXAMINATION: 2 XRAY VIEWS OF THE RIGHT ANKLE; TWO XRAY VIEWS OF THE RIGHT FOOT 05/27/2023 9:06 am COMPARISON: None. HISTORY: ORDERING SYSTEM PROVIDED HISTORY: ankle pain TECHNOLOGIST PROVIDED HISTORY: ankle pain FINDINGS: Ankle and foot alignment anatomic. No acute osseous abnormality. Joint spaces maintained. Soft tissues unremarkable. [facility] Colin Walker DO - 05/27/2023 EXAMINATION: 2 XRAY VIEWS OF THE RIGHT ANKLE; TWO XRAY VIEWS OF THE RIGHT FOOT 05/27/2023 9:06 am COMPARISON: None. HISTORY: ORDERING SYSTEM PROVIDED HISTORY: ankle pain TECHNOLOGIST PROVIDED HISTORY: ankle pain FINDINGS: Ankle and foot alignment anatomic. No acute osseous abnormality. Joint spaces maintained. Soft tissues unremarkable. IMPRESSION: No acute findings. [facility] Radiology Study observation (narrative) [facility] No Panel InformationOrdered By: Colin Walker on 05-27-2023 [facility] Work Phone: Protime-INRon 05-27-2023 INR Coag (PPP) [Relative time] 0.9 {INR} [facility] Comment on above: Therapeutic Range: Moderate Anticoagulant Intensity: INR = 2.0-3.0 High Anticoagulant Intensity: INR = 2.5-3.5 PT Coag (PPP) [Time] 12.4 s [facility] CBC with Auto Differentialon 05-26-2023 Basophils (Bld) [#/Vol] B ON [facility] Basophils/100 WBC (Bld) 0 % 0 - 2 % B ON [facility] Eosinophils (Bld) [#/Vol] 0.76 10*3/uL High [facility] Eosinophils/100 WBC (Bld) 9 % High 1 - 4 % [facility] Erythrocyte distribution width (RBC) [Ratio] 14.5 % High 11.8 - 14.4 % [facility] Hematocrit (Bld) [Volume fraction] 35.1 % Low 40.7 - 50.3 % [facility] Hemoglobin (Bld) [Mass/Vol] 10.3 g/dL Low 13.0 - 17.0 g/dL [facility] Immature granulocytes (Bld) [#/Vol] 0.04 10*3/uL [facility] Immature granulocytes/100 WBC (Bld) 1 % High 0 [facility] Interpretation and review of laboratory results Abnormal [facility] Lymphocytes/100 WBC (Bld) 15 % Low 24 - 43 % [facility] Lymphocytes/100 WBC (Bld) 1.29 % [facility] MCH (RBC) [Entitic mass] 29.4 pg 25.2 - 33.5 pg [facility] MCHC (RBC) [Mass/Vol] 29.3 g/dL 28.4 - 34.8 g/dL [facility] MCV (RBC) [Entitic vol] 100.3 fL 82.6 - 102.9 fL [facility] Monocytes/100 WBC (Bld) 12 % 3 - 12 % B ON [facility] Monocytes/100 WBC (Bld) 0.98 % B ON [facility] Neutrophils/100 WBC (Bld) 63 % 36 - 65 % [facility] Nucleated RBC/100 WBC (Bld) [Ratio] 0.2 % High 0.0 per 100 WBC [facility] Platelet mean volume (Bld) [Entitic vol] 9.5 fL 8.1 - 13.5 fL [facility] Platelets (Bld) [#/Vol] 212 10*3/uL [facility] RBC (Bld) [#/Vol] 3.50 10*6/uL Low 4.21 - 5.77 m/uL [facility] RBC (Bld) [#/Vol] ANISOCYTOSIS PRESENT [facility] Segmented neutrophils/100 WBC (Bld) 5.46 % [facility] WBC other (Bld) [#/Vol] 8.6 B ON [facility] Comprehensive Metabolic Pane clara 05-26-2023 Albumin [Mass/Vol] 3.4 g/dL Low 3.5 - 5.2 g/dL [facility] Albumin/Globulin [Mass ratio] 1.4 {ratio} 1.0 - 2.5 [facility] ALP [Catalytic activity/Vol] 106 U/L 40 - 129 U/L [facility] ALT [Catalytic activity/Vol] 7 U/L 5 - 41 U/L [facility] Anion gap [Moles/Vol] 14 mmol/L 9 - 17 mmol/L [facility] AST [Catalytic activity/Vol] 8 U/L NINF - 40 U/L [facility] Bilirubin [Mass/Vol] 0.2 mg/dL Low 0.3 - 1 .2 mg/dL [facility] Calcium [Mass/Vol] 8.2 mg/dL Low 8.6 - 10. 4 mg/dL [facility] Chloride [Moles/Vol] 103 mmol/L 98 - 10 7 mmol/L [facility] CO2 [Moles/Vol] 19 mmol/L Low 20 - 31 mmol/L [facility] Creatinine [Mass/Vol] 5.9 mg/dL Critically high 0.7 - 1.2 mg/dL [facility] GFR/1.73 sq M.predicted MDRD (S/P/Bld) [Vol rate/Area] 12 mL/min/{1.73_m2} Low - PINF [facility] Comment on above: These results are not intended for use in patients <18 years of age. eGFR results are calculated without a race factor using the 2020 CKD-EPI equation. Careful clinical correlation is recommended, particularly when comparing to results calculated using previous equations. The CKD-EPI equation is less accurate in patients with extremes of muscle mass, extra-renal metabolism of creatine, excessive creatine ingestion, or following therapy that affects renal tubular secretion. Glucose [Mass/Vol] 96 mg/dL 70 - 99 mg/dL [facility] Interpretation and review of laboratory results Abnormal [facility] Potassium [Moles/Vol] 4.6 mmol/L 3.7 - 5.3 mmol/L [facility] Protein [Mass/Vol] 5.8 g/dL Low 6.4 - 8.3 g/dL [facility] Sodium [Moles/Vol] 136 mmol/L 135 - 144 mmol/L [facility] Urea nitrogen [Mass/Vol] 43 mg/dL High 6 - 20 mg/dL [facility] Basic Metabolic Panelon 05-05 Creatinine Clr Calc Pharmacy 23.47 [facility] Comment on above: Performed By: #### B MG MARQUEZ #### [address] GFR/1.73 sq M.predicted MDRD (S/P/Bld) [Vol rate/Area] 20.161 mL/min/{1.73_m2} [facility] Comment on above: Performed By: #### B MP, MG #### [facility] [address] [place] [address] [place] Calcium [Mass/volume] in Ser um or PlasmaOrdered By: Rajendra Pierce on 05-20-2023 Calcium [Mass/Vol] 9.0 mg/dL Normal 8.6-10.3 [facility] Comment on above: Performed By: #### B MP, MG #### [facility] [address] [place] [address] [place] Carbon dioxide, total [Moles /volume] in Serum or PlasmaOrdered By: Rajendra Pierce on 05-20-2023 CO2 [Moles/Vol] 29.3 mmol/L Normal 21.0-31.0 [facility] Comment on above: Performed By: #### B MARQUEZ, MG #### [facility] [address] [place] [address] [place] Chloride [Moles/volume] in S adolph or PlasmaOrdered By: Rajendra Pierce on 05-20-2023 Chloride [Moles/Vol] 103 mmol/L Normal 98-107 [facility] Comment on above: Performed By: #### B MARQUEZ, MG #### [facility] [address] [place] [address] [place] Creatinine [Mass/volume] in Serum or PlasmaOrdered By: Rajendra Pierce on 05-20-2023 Creatinine [Mass/Vol] 3.76 mg/dL Significan t change up 0.70-1.30 [facility] Comment on above: Delta: 6.70 on 05/19-5 Performed By: #### B MP, MG #### [facility] [address] [place] [address] [place] Glucose [Mass/volume] in Ser um or PlasmaOrdered By: Rajendra Pierce on 05-20-2023 Glucose [Mass/Vol] 93 mg/dL Normal 70-100 [facility] Comment on above: ADA recommended refe rence rangeRandom Glucose Reference Range is dependent on time and content of last meal. Glucose of more than 200 mg/dL in a nonstressed, ambulatory subject supports the diagnosis of Diabetes Mellitus. Result Comment: [facility] Glucose Reference Range is dependent on time and content of last meal. Glucose of more than 200 mg/dL in a nonstressed, ambulatory subject supports the diagnosis of Diabetes Mellitus. ADA recommended reference range Performed By: #### B MARQUEZ, MG #### [facility] [address] [place] [address] Magnesium [Mass/volume] in S adolph or PlasmaOrdered By: Rajendra Pierce on 05-20-2023 Magnesium [Mass/Vol] 2.0 mg/dL Normal 1.9-2.7 [facility] Comment on above: Result Comment: PERF ORMED BY: [place] [address] PATHOLOGIST C.O.D. BILLER DI CORONEL M.D. Performed By: #### B MARQUEZ, MG #### [address] No Panel InformationOrdered By: Rajendra Pierce on 05-20-2023 Estimated GFR (CKD-EPI) 20.161 mL/Min [facility] Creatinine Clearance (Chem 23.47 [facility] Potassium [Moles/volume] in Serum or PlasmaOrdered By: Rajendra Pierce on 05-20-2023 Potassium [Moles/Vol] 3.9 mmol/L Normal 3.5-5.1 [facility] Comment on above: Performed By: #### B MARQUEZ, MG #### [address] Serum or plasma anion gap de terminationOrdered By: Rajendra Pierce on 05-20-2023 Anion gap [Moles/Vol] 8.6 mmol/L Normal 6.0-15.0 [facility] Comment on above: Performed By: #### B MP, MG #### [address] Sodium [Moles/volume] in Ser um or PlasmaOrdered By: Rajendra Pierce on 05-20-2023 Sodium [Moles/Vol] 137 mmol/L Normal 136-145 [facility] Comment on above: Performed By: #### B MARQUEZ MG #### [facility] [address] Urea nitrogen [Mass/volume] in Serum or PlasmaOrdered By: Rajendra Pierce on 05-20-2023 Urea nitrogen [Mass/Vol] 21 mg/dL Significant change down 7-25 [facility] Comment on above: Delta: 54 on 3-0415 Performed By: #### B MARQUEZ MG #### [facility] [address] Albumin [Mass/volume] in Ser um or Plasma by Bromocresol green (BCG) dye binding methoOrdered By: Melina Garcia on 05-19-2023 Albumin BCG dye [Mass/Vol] 3.2 g/dL 3.5-5.7 [facility] Phosphate [Mass/volume] in S adolph or PlasmaOrdered By: Melina Garcia on 05-19-2023 Phosphate [Mass/Vol] 5.4 mg/dL 3.7-7.2 [facility] Renal Function Panelon 05-19 Albumin [Mass/Vol] 3.2 g/dL Low 3.5-5.7 [facility] Comment on above: Performed By: #### R ENAL ####[facility] [place] [id number] [facility] Anion gap [Moles/Vol] 17.6 mmol/L High 6.0-15.0 [facility] Comment on above: Performed By: #### R ENAL ####[facility] [place] [id number] [facility] Calcium [Mass/Vol] 8.4 mg/dL Low 8.6-10.3 [facility] Comment on above: Performed By: #### R ENAL ####[facility] [address] [place] [id number] [facility] Chloride [Moles/Vol] 102 mmol/L Normal 98-107 [facility] Comment on above: Performed By: #### R ENAL ####[facility] [id number] [place] [id number] [facility] CO2 [Moles/Vol] 24.7 mmol/L Normal 21.0-31.0 [facility] Comment on above: Performed By: #### R ENAL ####[place] [address] [place] [id number] [facility] Creatinine [Mass/Vol] 6.70 mg/dL Significan t change up 0.70-1.30 [facility] Comment on above: Performed By: #### R ENAL ####[place] [id number] Creatinine Clr Calc Pharmacy 14.31 Normal [facility] Comment on above: Result Comment: PERF ORMED BY: [facility] [facility] [address] [place] [id number] PATHOLOGIST C.O.D. BILLER DI CORONEL M.D. Performed By: #### R ENAL ####[address] GFR/1.73 sq M.predicted MDRD (S/P/Bld) [Vol rate/Area] 10.080 mL/min/{1.73_m2} Normal [facility] Comment on above: Performed By: #### R ENAL ####[place] [id number] [facility] Glucose [Mass/Vol] 87 mg/dL Normal 70-100 [facility] Comment on above: Result Comment: [place] Glucose Reference Range is dependent on time and content of last meal. Glucose of more than 200 mg/dL in a nonstressed, ambulatory subject supports the diagnosis of Diabetes Mellitus. ADA recommended reference range Performed By: #### R ENAL ####[place] [id number] [place] [id number] [facility] Phosphate [Mass/Vol] 5.4 mg/dL Normal 3.7-7.2 [facility] Comment on above: Performed By: #### R ENAL ####[place] [id number] [facility] Potassium [Moles/Vol] 4.3 mmol/L Normal 3.5-5.1 [facility] Comment on above: Performed By: #### R ENAL ####[facility] [address] [place] [address] [facility] Sodium [Moles/Vol] 140 mmol/L Significant change down 136-145 [facility] Comment on above: Performed By: #### R ENAL ####[facility] [address] [place] [address] [facility] Urea nitrogen [Mass/Vol] 54 mg/dL High 7-25 [facility] Comment on above: Performed By: #### R ENAL ####[facility] [id number] [place] [address] [facility] Amphetamine Screen Ql (U)Ord ered By: Rajendra Pierce on 05-18-2023 Amphetamines Ql (U) Negative Negative [facility] Arterial Blood Gason 023 ABG Base Excess -5.8 mmol/L Low -3.0-3.0 [facility] Comment on above: Performed By: #### A BG #### Point of Care testing , ABG Frac Inspired O2 40 % Normal [facility] Comment on above: Performed By: #### A BG #### Point of Care testing , ABG Oxygen Content 6.9 mmol/L Normal 6.6-9.7 [facility] Comment on above: Performed By: #### A BG #### Point of Care testing , ABG Oxygen Saturation 97.0 % Normal 95.0-100.0 [facility] Comment on above: Performed By: #### A BG #### Point of Care testing , ABG PCO2 57.6 mm[Hg] Off scale high 35.0-45.0 [facility] Comment on above: Performed By: #### A BG #### Point of Care testing , ABG PEEP 5 Normal [facility] Comment on above: Performed By: #### A BG #### Point of Care testing , ABG PH 7.21 Low 7.35-7.45 [facility] Comment on above: Performed By: #### A BG #### Point of Care testing , ABG PO2 90.1 mm[Hg] Normal 80.0-100.0 [facility] Comment on above: Performed By: #### A BG #### Point of Care testing , ABG TV 450 mL Normal [facility] Comment on above: Performed By: #### A BG #### Point of Care testing , CO2 [Moles/Vol] 24.2 mmol/L Normal 23.0-27.0 [facility] Comment on above: Performed By: #### A BG #### Point of Care testing , HCO3 (Bld) [Moles/Vol] 22.5 mmol/L Low 23.0-29.0 [facility] Comment on above: Performed By: #### A BG #### Point of Care testing , Respiratory Critical [facility] Comment on above: Result Comment: Crit ical Value called on: 05/18/2023 at 14:58 PERFORMED BY: [place] [address] PATHOLOGIST C.O.D. BILLER DI CORONEL M.D. Performed By: #### A BG #### Point of Care testing , Set Respiratory Rate 14 Normal [facility] Comment on above: Performed By: #### A BG #### Point of Care testing , VBG Draw Site Right Brachial Normal [facility] Comment on above: Performed By: #### A BG #### Point of Care testing , ABG Base Excess -7.0 mmol/L Low -3.0-3.0 [facility] Comment on above: Performed By: #### B MARQUEZ MG #### [facility] [address] [place] [address] ABG Frac Inspired O2 40 % [facility] Comment on above: Performed By: #### B MARQUEZ MG #### [facility] [address] [place] [address] ABG Oxygen Content 6.6 mmol/L Normal 6.6-9.7 [facility] Comment on above: Performed By: #### B MARQUEZ MG #### [facility] [address] [place] [address] ABG Oxygen Saturation 89.1 % Low 95.0-100.0 [facility] Comment on above: Performed By: #### B MP, MG #### [facility] [address] [place] [address] ABG PCO2 71.9 mm[Hg] Off scale high 35.0-45.0 [facility] Comment on above: Performed By: #### B MP, MG #### [facility] [address] [place] [address] ABG PEEP 8 Normal [facility] Comment on above: Performed By: #### B MP, MG #### [facility] [address] [place] [address] ABG PH 7.13 Off scale low 7.35-7.45 [facility] Comment on above: Performed By: #### B MP, MG #### [facility] [address] [place] [address] ABG PO2 56.5 mm[Hg] Low 80.0-100.0 [facility] Comment on above: Performed By: #### B MP, MG #### [facility] [address] [place] [address] CO2 [Moles/Vol] 25.3 mmol/L Normal 23.0-27.0 [facility] Comment on above: Performed By: #### B MP, MG #### [facility] [address] [place] [address] HCO3 (Bld) [Moles/Vol] 23.1 mmol/L Normal 23.0-29.0 [facility] Comment on above: Performed By: #### B MP, MG #### [facility] [address] [place] [address] Respiratory Critical Normal [facility] Comment on above: Result Comment: Crit ical Value called on: 05/18/2023 at 05:34 PERFORMED BY: [place] [address] PATHOLOGIST C.O.D. BILLER DI CORONEL M.D. Performed By: #### B MP, MG #### [facility] [address] VBG Draw Site Right Radial Normal [facility] Comment on above: Performed By: #### B MG MARQUEZ #### [facility] [address] Barbiturates [Presence] in U rine by Screen methodOrdered By: Rajendra Pierce on 05-18-2023 Barbiturates Screen Ql (U) Negative Negative [facility] Basic Metabolic Panelon 05-05 Anion gap [Moles/Vol] 9.3 mmol/L Normal 6.0-15.0 [facility] Comment on above: Performed By: #### A BG #### Point of Care testing , Calcium [Mass/Vol] 8.6 mg/dL Normal 8.6-10.3 [facility] Comment on above: Performed By: #### A BG #### Point of Care testing , Chloride [Moles/Vol] 104 mmol/L Normal 98-107 [facility] Comment on above: Performed By: #### A BG #### Point of Care testing , CO2 [Moles/Vol] 25.4 mmol/L Normal 21.0-31.0 [facility] Comment on above: Performed By: #### A BG #### Point of Care testing , Creatinine [Mass/Vol] 6.01 mg/dL High 0.70-1.30 [facility] Comment on above: Performed By: #### A BG #### Point of Care testing , Creatinine Clr Calc Pharmacy 15.35 [facility] Comment on above: Performed By: #### A BG #### Point of Care testing , GFR/1.73 sq M.predicted MDRD (S/P/Bld) [Vol rate/Area] 11.484 mL/min/{1.73_m2} [facility] Comment on above: Performed By: #### A BG #### Point of Care testing , Glucose [Mass/Vol] 97 mg/dL Normal 70-100 [facility] Comment on above: Result Comment: [place] Glucose Reference Range is dependent on time and content of last meal. Glucose of more than 200 mg/dL in a nonstressed, ambulatory subject supports the diagnosis of Diabetes Mellitus. ADA recommended reference range Performed By: #### A BG #### Point of Care testing , Potassium [Moles/Vol] 4.7 mmol/L Normal 3.5-5.1 [facility] Comment on above: Performed By: #### A BG #### Point of Care testing , Sodium [Moles/Vol] 134 mmol/L Low 136-145 [facility] Comment on above: Performed By: #### A BG #### Point of Care testing , Urea nitrogen [Mass/Vol] 44 mg/dL High 7-25 [facility] Comment on above: Performed By: #### A BG #### Point of Care testing , Basophils Auto (Bld) [#/Vol] Ordered By: Terra Cardoza on 05-18-2023 Basophils (Bld) [#/Vol] 0.1 10*3/uL 0.0-0.2 [facility] Basophils/100 WBC Auto (Bld) Ordered By: Terra Cardoza on 05-18-2023 Basophils/100 WBC (Bld) 0.6 % . [facility] Benzodiazepines Screen Ql (U )Ordered By: Rajendra Pierce on 05-18-2023 Benzodiazepines Ql (U) Negative Negative [facility] Benzoylecgonine [Presence] i n Urine by Screen methodOrdered By: Rajendra Pierce on 05-18-2023 Benzoylecgonine Screen Ql (U) Negative Negative [facility] Cannabinoids [Presence] in U rine by Screen methodOrdered By: Rajendra Pierce on 05-18-2023 Cannabinoids Screen Ql (U) Negative Negative [facility] Comment on above: These are unconfirme d results and should not be used for legal purposes. Drug Cut-Off Concentration: AMPH 1000 ng/mL SARAH 200 ng/mL CRISTA 200 ng/mL COCM 300 ng/mL OP 300 ng/mL PCP 25 ng/mL THC 20 ng/mL Complete Blood Count Auto Di ffon 05-18-2023 Basophils (Bld) [#/Vol] 0.1 10*3/uL Normal 0.0-0.2 [facility] Comment on above: Result Comment: PERF ORMED BY: [place] [address] PATHOLOGIST C.O.D. BILLER DI CORONEL M.D. Performed By: #### B MP, MG #### [facility] [address] [place] [address] [place] Basophils/100 WBC (Bld) 0.6 % Normal . [facility] Comment on above: Performed By: #### B MP, MG #### [facility] [address] [place] [address] [place] Eosinophils (Bld) [#/Vol] 0.5 10*3/uL High 0.0-0.45 [facility] Comment on above: Performed By: #### B MP, MG #### [place] [address] [place] Eosinophils/100 WBC (Bld) 5.3 % Normal . [facility] Comment on above: Performed By: #### B MP, MG #### [facility] [address] [place] [address] Erythrocyte distribution width (RBC) [Ratio] 14.8 % Normal 12.0-14.8 [facility] Comment on above: Performed By: #### B MP, MG #### [facility] [address] [place] [address] Hematocrit (Bld) [Volume fraction] 32.7 % Low 38.8-50.0 [facility] Comment on above: Performed By: #### B MP, MG #### [place] [address] [place] Hemoglobin (Bld) [Mass/Vol] 10.5 g/dL Low 13.0-17.0 [facility] Comment on above: Performed By: #### B MP, MG #### [place] [address] [place] Lymphocytes (Bld) [#/Vol] 1.0 10*3/uL Normal 1.00-4.8 [facility] Comment on above: Performed By: #### B MP, MG #### [address] Lymphocytes/100 WBC (Bld) 11.3 % Normal . [facility] Comment on above: Performed By: #### B MP, MG #### [facility] [address] [place] [address] MCH (RBC) [Entitic mass] 30.5 pg Normal 27.5-35.2 [facility] Comment on above: Performed By: #### B MP, MG #### [address] MCV (RBC) [Entitic vol] 94.6 fL Normal 83.5-101 [facility] Comment on above: Performed By: #### B MP, MG #### [address] Mean Corpuscular HGB Conc 32.2 g/dL Low 32.5-35.6 [facility] Comment on above: Performed By: #### B MP, MG #### [place] [address] [place] Monocytes (Bld) [#/Vol] 1.1 10*3/uL High 0.0-0.8 [facility] Comment on above: Performed By: #### B MP, MG #### [address] Monocytes/100 WBC (Bld) 11.8 % Normal . [facility] Comment on above: Performed By: #### B MP, MG #### [address] Neutrophils (Bld) [#/Vol] 6.4 10*3/uL Normal 1.8-7.7 [facility] Comment on above: Performed By: #### B MP, MG #### [address] Neutrophils/100 WBC (Bld) 71.0 % Normal . [facility] Comment on above: Performed By: #### B MP, MG #### [address] NRBC% 0.4 /100{WBC} Normal 0-0.5 [facility] Comment on above: Performed By: #### B MP, MG #### [address] Platelet mean volume (Bld) [Entitic vol] 7.3 fL Normal 6.6-10.1 [facility] Comment on above: Performed By: #### B MP, MG #### [address] Platelets (Bld) [#/Vol] 242 10*3/uL Normal 150-450 [facility] Comment on above: Performed By: #### B MP, MG #### [address] RBC (Bld) [#/Vol] 3.45 10*6/uL Low 3.90-5.60 [facility] Comment on above: Performed By: #### B MP, MG #### [address] WBC (Bld) [#/Vol] 9.1 10*3/uL Normal 4.1-10.5 [facility] Comment on above: Performed By: #### B MP, MG #### [address] Drug Screen,Urineon 05-18-20 23 Amphetamine Screen,Urine Negative Normal Negative [facility] Comment on above: Performed By: #### C UU, URDS #### [address] Barbiturate Screen,Urine Negative Normal Negative [facility] Comment on above: Performed By: #### C UU, URDS #### [address] Benzodiazepines Screen,Urine Negative Normal Negative [facility] Comment on above: Performed By: #### C UU, URDS #### [address] Cannabinoid Screen,Urine Negative Normal Negative [facility] Comment on above: Result Comment: Thes e are unconfirmed results and should not be used for legal purposes. Drug Cut-Off Concentration: AMPH 1000 ng/mL SARAH 200 ng/mL CRISTA 200 ng/mL COCM 300 ng/mL OP 300 ng/mL PCP 25 ng/mL THC 20 ng/mL PERFORMED BY: [place] [address] PATHOLOGIST C.O.D. BILLER DI CORONEL M.D. Performed By: #### C UU, URDS #### [facility] [address] [place] [address] Cocaine Screen,Urine Negative Normal Negative [facility] Comment on above: Performed By: #### C UU, URDS #### [facility] [address] [place] [address] Opiate Screen,Urine Negative Normal Negative [facility] Comment on above: Performed By: #### C UU, URDS #### [facility] [address] [place] [address] Phencyclidine Screen,Urine Negative Normal Negative [facility] Comment on above: Performed By: #### C UU, URDS #### [facility] [address] [place] [address] Eosinophils Auto (Bld) [#/Vo l]Ordered By: Terra Cardoza on 05-18-2023 Eosinophils (Bld) [#/Vol] 0.5 10*3/uL 0.0-0.45 [facility] Eosinophils/100 WBC Auto (Bl d)Ordered By: Terra Cardoza on 05-18-2023 Eosinophils/100 WBC (Bld) 5.3 % . [facility] Erythrocyte distribution wid th Auto (RBC) [Ratio]Ordered By: Terra Cardoza on 05-18-2023 Erythrocyte distribution width (RBC) [Ratio] 14.8 % 12.0-14.8 [facility] Hematocrit Auto (Bld) [Volum e fraction]Ordered By: Terra Cardoza on 05-18-2023 Hematocrit (Bld) [Volume fraction] 32.7 % 38.8-50.0 [facility] Hemoglobin [Mass/volume] in BloodOrdered By: Terra Cardoza on 05-18-2023 Hemoglobin (Bld) [Mass/Vol] 10.5 g/dL 13.0-17.0 [facility] Laboratory - Chemistry and C hemistry - challengeOrdered By: Rajendra Pierce on 05-18-2023 CO2 [Moles/Vol] 24.2 mmol/L 23.0-27.0 [facility] HCO3 (Bld) [Moles/Vol] 22.5 mmol/L 23.0-29.0 [facility] Leukocytes [#/volume] correc radha for nucleated erythrocytes in Blood by Automated counOrdered By: Terra Cardoza on 05-18-2023 WBC corrected for nucl RBC Auto (Bld) [#/Vol] 9.1 10*3/uL 4.1-10.5 [facility] Lymphocytes Auto (Bld) [#/Vo l]Ordered By: Terra Cardoza on 05-18-2023 Lymphocytes (Bld) [#/Vol] 1.0 10*3/uL 1.00-4.8 [facility] Lymphocytes/100 WBC Auto (Bl d)Ordered By: Terra Cardoza on 05-18-2023 Lymphocytes/100 WBC (Bld) 11.3 % . [facility] MCH Auto (RBC) [Entitic mass ]Ordered By: Terra Cardoza on 05-18-2023 MCH (RBC) [Entitic mass] 30.5 pg 27.5-35.2 [facility] MCHC Auto (RBC) [Mass/Vol]Or dered By: Terra Cardoza on 05-18-2023 MCHC (RBC) [Mass/Vol] 32.2 g/dL 32.5-35.6 [facility] MCV Auto (RBC) [Entitic vol] Ordered By: Terra Cardoza on 05-18-2023 MCV (RBC) [Entitic vol] 94.6 fL 83.5-101 [facility] Magnesiumon 05-18-2023 Magnesium [Mass/Vol] 1.7 mg/dL Low 1.9-2.7 [facility] Comment on above: Result Comment: PERF ORMED BY: [facility] [address] [place] [address] PATHOLOGIST C.O.D. BILLER DI CORONEL M.D. Performed By: #### A BG #### Point of Care testing , Monocytes Auto (Bld) [#/Vol] Ordered By: Terra Cardoza on 05-18-2023 Monocytes (Bld) [#/Vol] 1.1 10*3/uL 0.0-0.8 [facility] Monocytes/100 WBC Auto (Bld) Ordered By: Terra Cardoza on 05-18-2023 Monocytes/100 WBC (Bld) 11.8 % . [facility] Neutrophils Auto (Bld) [#/Vo l]Ordered By: Terra Cardoza on 05-18-2023 Neutrophils (Bld) [#/Vol] 6.4 10*3/uL 1.8-7.7 [facility] Neutrophils/100 WBC Auto (Bl d)Ordered By: Terra Cardoza on 05-18-2023 Neutrophils/100 WBC (Bld) 71.0 % . [facility] No Panel InformationOrdered By: Rajendra Pierce on 05-18-2023 Arterial Blood Base Excess -5.8 mmol/L -3.0-3.0 [facility] Arterial Blood Oxygen Content 6.9 mmol/L 6.6-9.7 [facility] Arterial Blood Oxygen Saturation 97.0 % 95.0-100.0 [facility] Arterial Blood Partial Pressure CO2 57.6 mm[Hg] 35.0-45.0 [facility] Arterial Blood Partial Pressure O2 90.1 mm[Hg] 80.0-100.0 [facility] Arterial Blood pH 7.21 7.35-7.45 [facility] Blood Gas Critical Value See comment [facility] Comment on above: Critical Value sainz d on: 05/18/2023 at 14:58 Blood Gas PEEP 5 cmH2O [facility] Blood Gas Sample Site Right brachial [facility] Blood Gas Set Respiration Rate 14 [facility] Blood Gas Tidal Volume 450 mL [facility] FiO2 40 % [facility] Nucleated erythrocytes [Pres ence] in Blood by Automated countOrdered By: Terra Cardoza on 05-18-2023 Nucleated RBC Auto Ql (Bld) 0.4 /100{WBC} 0-0.5 [facility] Opiates [Presence] in Urine by Screen methodOrdered By: Rajendra Pierce on 05-18-2023 Opiates Screen Ql (U) Negative Negative [facility] Phencyclidine Screen Ql (U)O rdered By: Rajendra Pierce on 05-18-2023 Phencyclidine Ql (U) Negative Negative [facility] Platelet mean volume Auto (B ld) [Entitic vol]Ordered By: Terra Cardoza on 05-18-2023 Platelet mean volume (Bld) [Entitic vol] 7.3 fL 6.6-10.1 [facility] Platelets Auto (Bld) [#/Vol] Ordered By: Terra Cardoza on 05-18-2023 Platelets (Bld) [#/Vol] 242 10*3/uL 150-450 [facility] RBC Auto (Bld) [#/Vol]Ordere d By: Terra Cardoza on 05-18-2023 RBC (Bld) [#/Vol] 3.45 10*6/uL 3.90-5.60 [facility] US AV Fistulaon 05-18-2023 US AV Fistula [facility] [place] [place] [address] Ultrasound Report Signed Patient: Ruddy Palmer MR#: [id number] 9 : 1985 Acct:[id number] Age/Sex: 37 / M ADM Date: 05/17/23 Loc: Room: [address] [place] [address] Type: ADM IN Attending Dr: Rajendra Pierce MD Ordering Provider: Terra Cardoza APRN Date of Service: 05/18/23 US/US AV Fistula: weak thrill to left upper arm fistula Copies to: VICTORIA Dodge MD Duplex examination of a left arm autologous fistula Indication for study: Inadequate fistula by physical examination PROCEDURE: Color-flow duplex scanning is used to interrogate the patient's left upper extremity autologous fistula. The vein is adequate in size between 6 and 12 mm in diameter. Flows are less than expected. Estimated flow in the left brachial artery is only 300 cc/m. There are sequential areas of anastomotic and midsegment stenosis in the vein. These are noted in the mid and distal portion of the fistula as well as at the anastomosis. Overall flow within the fistula is less than expected at between 204 100 cc/m. US/US AV Fistula IMPRESSION: This fistula has adequate size but there are several areas of stenosis noted. Overall flows are less than expected. Impression dictated by: Rojas No M.D.05/18/2023 1:35 PM [facility] Tech: Naz Pamela Transcribed By: DESEAN 05/18/23 133 Dictated By: Rojas No MD 05/18/231333 Signed By: 05/18/231334 [facility] Urine Cultureon 05-18-2023 Bacteria identified Cx Nom (U) No Growth 2 Days PERFORMED BY: [place] [address] PATHOLOGIST C.O.D. BILLER DI CORONEL M.D. [facility] Comment on above: Performed By: #### C UU, URDS #### [facility] [address] [place] [address] Urine culture routineOrdered By: Rajendra Pierce on 05-18-2023 Bacteria identified Cx Nom (U) No Growth 2 Days [facility] WBC Auto (Bld) [#/Vol]Ordere d By: Terra Cardoza on 05-18-2023 WBC (Bld) [#/Vol] 9.1 10*3/uL 4.1-10.5 [facility] Alanine aminotransferase [En zymatic activity/volume] in Serum or PlasmaOrdered By: Fransico Mendieta on 05-17-2023 ALT [Catalytic activity/Vol] 10 U/L 7-52 [facility] Albumin [Mass/volume] in Ser um or Plasma by Bromocresol green (BCG) dye binding methoOrdered By: Fransico Mendieta on 05-17-2023 Albumin BCG dye [Mass/Vol] 3.5 g/dL 3.5-5.7 [facility] Alkaline phosphatase [Enzyma tic activity/volume] in Serum or PlasmaOrdered By: Fransico Mendieta on 05-17-2023 ALP [Catalytic activity/Vol] 100 U/L 34-104 [facility] Arterial Blood Gason 023 ABG Base Excess -8.0 mmol/L Low -3.0-3.0 [facility] Comment on above: Performed By: #### C UU, URDS #### [facility] [address] ABG Frac Inspired O2 28 % Normal [facility] Comment on above: Performed By: #### C UU, URDS #### [facility] [address] ABG Oxygen Content 6.8 mmol/L Normal 6.6-9.7 [facility] Comment on above: Performed By: #### C UU, URDS #### [facility] [address] ABG Oxygen Saturation 95.3 % Normal 95.0-100.0 [facility] Comment on above: Performed By: #### C UU, URDS #### [facility] [address] ABG PCO2 70.8 mm[Hg] Off scale high 35.0-45.0 [facility] Comment on above: Performed By: #### C UU, URDS #### [facility] [address] ABG PH 7.11 Off scale low 7.35-7.45 [facility] Comment on above: Performed By: #### C UU, URDS #### [facility] [address] ABG PO2 79.9 mm[Hg] Low 80.0-100.0 [facility] [facility] Comment on above: Performed By: #### C UU, URDS #### [facility] [address] CO2 [Moles/Vol] 24.3 mmol/L Normal 23.0-27.0 [facility] Comment on above: Performed By: #### C UU, URDS #### [facility] [address] HCO3 (Bld) [Moles/Vol] 22.1 mmol/L Low 23.0-29.0 [facility] Comment on above: Performed By: #### C UU, URDS #### [facility] [address] Respiratory Critical Normal [facility] Comment on above: Result Comment: Crit ical Value called on: 05/17/2023 at 20:39 PERFORMED BY: [place] [address] PATHOLOGIST C.O.D. BILLER DI CORONEL M.D. Performed By: #### C UU, URDS #### [facility] [address] VBG Draw Site Right Brachial Normal [facility] Comment on above: Performed By: #### C UU, URDS #### [facility] [address] Aspartate aminotransferase [ Enzymatic activity/volume] in Serum or PlasmaOrdered By: Fransico Mendieta on 05-17-2023 AST [Catalytic activity/Vol] 14 U/L [facility] Automated erythrocytes count in urine sediment (number/area)Ordered By: Fransico Mendieta on 05-17-2023 RBC Auto (Urine sed) [#/Area] None seen [HPF] 0-4 [facility] Automated leukocytes count i n urine sediment (number/area)Ordered By: Fransico Mendieta on 05-17-2023 WBC Auto (Urine sed) [#/Area] 20-49 [HPF] 0-4 [facility] Bacterial blood cultureOrder ed By: Fransico Mendieta on 05-17-2023 Bacteria identified Cx Nom (Bld) NO GROWTH 5 DAYS [facility] Basic Metabolic Panelon 05-05 Anion gap [Moles/Vol] 8.6 mmol/L Normal 6.0-15.0 [facility] Comment on above: Performed By: #### A BG #### Point of Care testing , Calcium [Mass/Vol] 8.8 mg/dL Normal 8.6-10.3 [facility] Comment on above: Performed By: #### A BG #### Point of Care testing , Chloride [Moles/Vol] 102 mmol/L Normal 98-107 [facility] Comment on above: Performed By: #### A BG #### Point of Care testing , CO2 [Moles/Vol] 26.1 mmol/L Normal 21.0-31.0 [facility] Comment on above: Performed By: #### A BG #### Point of Care testing , Creatinine [Mass/Vol] 5.78 mg/dL High 0.70-1.30 [facility] Comment on above: Performed By: #### A BG #### Point of Care testing , Creatinine Clr Calc Pharmacy 15.56 [facility] Comment on above: Performed By: #### A BG #### Point of Care testing , GFR/1.73 sq M.predicted MDRD (S/P/Bld) [Vol rate/Area] 12.034 mL/min/{1.73_m2} [facility] Comment on above: Performed By: #### A BG #### Point of Care testing , Glucose [Mass/Vol] 105 mg/dL High 70-100 [facility] Comment on above: Result Comment: [facility] Glucose Reference Range is dependent on time and content of last meal. Glucose of more than 200 mg/dL in a nonstressed, ambulatory subject supports the diagnosis of Diabetes Mellitus. ADA recommended reference range Performed By: #### A BG #### Point of Care testing , Potassium [Moles/Vol] 4.7 mmol/L Normal 3.5-5.1 [facility] Comment on above: Performed By: #### A BG #### Point of Care testing , Sodium [Moles/Vol] 132 mmol/L Low 136-145 [facility] Comment on above: Performed By: #### A BG #### Point of Care testing , Urea nitrogen [Mass/Vol] 40 mg/dL High 7-25 [facility] Comment on above: Performed By: #### A BG #### Point of Care testing , Basophils Auto (Bld) [#/Vol] Ordered By: Fransico Mendieta on 05-17-2023 Basophils (Bld) [#/Vol] 0.1 10*3/uL 0.0-0.2 [facility] Basophils/100 WBC Auto (Bld) Ordered By: Fransico Mendieta on 05-17-2023 Basophils/100 WBC (Bld) 0.8 % . [facility] Bilirubin Test strip Ql (U)O rdered By: Fransico Mendieta on 05-17-2023 Bilirubin Ql (U) Negative Negative [facility] Bilirubin.direct [Mass/volum e] in Serum or PlasmaOrdered By: Fransico Mendieta on 05-17-2023 Bilirubin.direct [Mass/Vol] 0.00 mg/dL 0.03-0.18 [facility] Comment on above: If the DBIL is less than 0.1, IBIL is not able to becalculated. Bilirubin.total [Mass/volume ] in Serum or PlasmaOrdered By: Fransico Mendieta on 05-17-2023 Bilirubin [Mass/Vol] 0.3 mg/dL 0.3-1.0 [facility] Blood Cultureon 05-17-2023 Bacteria identified Cx Nom (Bld) NO GROWTH 5 DAYS PERFORMED BY: [place] [address] PATHOLOGIST C.O.D. BILLER DI CORONEL M.D. [facility] Comment on above: Performed By: #### A BG #### Point of Care testing , Bacteria identified Cx Nom (Bld) NO GROWTH 5 DAYS PERFORMED BY: [place] [address] PATHOLOGIST C.O.D. BILLER DI CORONEL M.D. [facility] Comment on above: Performed By: #### C UU, URDS #### [address] Calcium [Mass/volume] in Ser um or PlasmaOrdered By: Fransico Mendieta on 05-17-2023 Calcium [Mass/Vol] 8.8 mg/dL 8.6-10.3 [facility] Carbon dioxide, total [Moles /volume] in Serum or PlasmaOrdered By: Fransico Mendieta on 05-17-2023 CO2 [Moles/Vol] 26.1 mmol/L 21.0-31.0 [facility] Chloride [Moles/volume] in [place] or PlasmaOrdered By: Fransico Mendieta on 05-17-2023 Chloride [Moles/Vol] 102 mmol/L 98-107 [facility] Color Auto (U)Ordered By: Darian Mendieta on 05-17-2023 Color (U) Yellow Yellow [facility] Complete Blood Count Auto Di ffon 05-17-2023 Basophils (Bld) [#/Vol] 0.1 10*3/uL Normal 0.0-0.2 [facility] Comment on above: Result Comment: PERF ORMED BY: [facility] [place] [address] PATHOLOGIST C.O.D. BILLER DI CORONEL M.D. Performed By: #### A BG #### Point of Care testing , Basophils/100 WBC (Bld) 0.8 % Normal . [facility] Comment on above: Performed By: #### A BG #### Point of Care testing , Eosinophils (Bld) [#/Vol] 0.4 10*3/uL Normal 0.0-0.45 [facility] Comment on above: Performed By: #### A BG #### Point of Care testing , Eosinophils/100 WBC (Bld) 4.0 % Normal . [facility] Comment on above: Performed By: #### A BG #### Point of Care testing , Erythrocyte distribution width (RBC) [Ratio] 14.7 % Normal 12.0-14.8 [facility] Comment on above: Performed By: #### A BG #### Point of Care testing , Hematocrit (Bld) [Volume fraction] 33.3 % Low 38.8-50.0 [facility] Comment on above: Performed By: #### A BG #### Point of Care testing , Hemoglobin (Bld) [Mass/Vol] 10.6 g/dL Low 13.0-17.0 [facility] Comment on above: Performed By: #### A BG #### Point of Care testing , Lymphocytes (Bld) [#/Vol] 1.1 10*3/uL Normal 1.00-4.8 [facility] Comment on above: Performed By: #### A BG #### Point of Care testing , Lymphocytes/100 WBC (Bld) 9.9 % Normal . [facility] Comment on above: Performed By: #### A BG #### Point of Care testing , MCH (RBC) [Entitic mass] 29.9 pg Normal 27.5-35.2 [facility] Comment on above: Performed By: #### A BG #### Point of Care testing , MCV (RBC) [Entitic vol] 93.5 fL Normal 83.5-101 [facility] Comment on above: Performed By: #### A BG #### Point of Care testing , Mean Corpuscular HGB Conc 32.0 g/dL Low 32.5-35.6 [facility] Comment on above: Performed By: #### A BG #### Point of Care testing , Monocytes (Bld) [#/Vol] 1.5 10*3/uL High 0.0-0.8 [facility] Comment on above: Performed By: #### A BG #### Point of Care testing , Monocytes/100 WBC (Bld) 18.65 % Normal 0.00-20.00 [facility] Comment on above: Performed By: #### A BG #### Point of Care testing , Monocytes/100 WBC (Bld) 14.0 % Normal . [facility] Comment on above: Performed By: #### A BG #### Point of Care testing , Neutrophils (Bld) [#/Vol] 7.6 10*3/uL Normal 1.8-7.7 [facility] Comment on above: Performed By: #### A BG #### Point of Care testing , Neutrophils/100 WBC (Bld) 71.3 % Normal . [facility] Comment on above: Performed By: #### A BG #### Point of Care testing , NRBC% 0.3 /100{WBC} Normal 0-0.5 [facility] Comment on above: Performed By: #### A BG #### Point of Care testing , Platelet mean volume (Bld) [Entitic vol] 7.2 fL Normal 6.6-10.1 [facility] Comment on above: Performed By: #### A BG #### Point of Care testing , Platelets (Bld) [#/Vol] 266 10*3/uL Normal 150-450 [facility] Comment on above: Performed By: #### A BG #### Point of Care testing , RBC (Bld) [#/Vol] 3.56 10*6/uL Low 3.90-5.60 [facility] Comment on above: Performed By: #### A BG #### Point of Care testing , WBC (Bld) [#/Vol] 10.6 10*3/uL High 4.1-10.5 [facility] Comment on above: Performed By: #### A BG #### Point of Care testing , Creatine Kinaseon 05-17-2023 CK [Catalytic activity/Vol] 26 U/L Low 30-223 [facility] Comment on above: Performed By: #### A BG #### Point of Care testing , Creatine kinase [Enzymatic a ctivity/volume] in Serum or PlasmaOrdered By: Fransico Mendieta on 05-17-2023 CK [Catalytic activity/Vol] 26 U/L 30-223 [facility] Creatinine [Mass/volume] in Serum or PlasmaOrdered By: Fransico Mendieta on 05-17-2023 Creatinine [Mass/Vol] 5.78 mg/dL 0.70-1.30 [facility] Dipstick and Microscopicon 0 05-17-2023 Appearance (U) Clear Normal Clear [facility] Comment on above: Order Comment: Name Collection Type:: Clean-Voided Midstream Performed By: #### A BG #### Point of Care testing , Bacteria,Urine None Seen Normal None Seen [facility] Comment on above: Order Comment: Name Collection Type:: Clean-Voided Midstream Performed By: #### A BG #### Point of Care testing , Bilirubin,Urine Negative Normal Negative [facility] Comment on above: Order Comment: Name Collection Type:: Clean-Voided Midstream Performed By: #### A BG #### Point of Care testing , Color (U) Yellow Normal Yellow [facility] Comment on above: Order Comment: Name Collection Type:: Clean-Voided Midstream Performed By: #### A BG #### Point of Care testing , Glucose Ql (U) Normal Normal Normal [facility] Comment on above: Order Comment: Name Collection Type:: Clean-Voided Midstream Performed By: #### A BG #### Point of Care testing , Hyaline Casts,Urine None Seen Normal 0-8 [facility] Comment on above: Order Comment: Name Collection Type:: Clean-Voided Midstream Result Comment: PERF ORMED BY: [address] [place] [address] PATHOLOGIST C.O.D. BILLER DI CORONEL M.D. Performed By: #### A BG #### Point of Care testing , Ketones Ql (U) Negative Normal Negative [facility] Comment on above: Order Comment: Name Collection Type:: Clean-Voided Midstream Performed By: #### A BG #### Point of Care testing , Leukocyte esterase Test strip Ql (U) Negative Normal Negative [facility] Comment on above: Order Comment: Name Collection Type:: Clean-Voided Midstream Performed By: #### A BG #### Point of Care testing , Nitrite,Urine Negative Normal Negative [facility] Comment on above: Order Comment: Name Collection Type:: Clean-Voided Midstream Performed By: #### A BG #### Point of Care testing , Occult Blood,Urine Negative Normal Negative [facility] Comment on above: Order Comment: Name Collection Type:: Clean-Voided Midstream Result Comment: PERF ORMED BY: [address] [place] [address] PATHOLOGIST C.O.D. BILLER DI CORONEL M.D. Performed By: #### A BG #### Point of Care testing , pH (U) 6.0 [pH] Normal 5.0-9.0 [facility] Comment on above: Order Comment: Name Collection Type:: Clean-Voided Midstream Performed By: #### A BG #### Point of Care testing , Protein,Urine Trace High Negative [facility] Comment on above: Order Comment: Name Collection Type:: Clean-Voided Midstream Performed By: #### A BG #### Point of Care testing , RBC,Urine None Seen Normal 0-4 [facility] Comment on above: Order Comment: Name Collection Type:: Clean-Voided Midstream Performed By: #### A BG #### Point of Care testing , Specificy [place]on,Urine 1.006 Normal 1.00 1-1.03 0 [facility] Comment on above: Order Comment: Name Collection Type:: Clean-Voided Midstream Performed By: #### A BG #### Point of Care testing , Squamous Epithelial Cell,Urine None Seen Normal 0-2 [facility] Comment on above: Order Comment: Name Collection Type:: Clean-Voided Midstream Performed By: #### A BG #### Point of Care testing , Urobilinogen,Urine Normal Normal Normal [facility] Comment on above: Order Comment: Name Collection Type:: Clean-Voided Midstream Performed By: #### A BG #### Point of Care testing , WBC,Urine 20-49 High 0-4 [facility] Comment on above: Order Comment: Name Collection Type:: Clean-Voided Midstream Performed By: #### A BG #### Point of Care testing , ECG 12 lead ECGon 05-17-2023 ECG 12 lead ECG [facility] [place] [place] [address] Electrocardiograph Report Signed Patient: Ruddy Palmer MR#: [id number] 9 : 1985 Acct:[id number] Age/Sex: 37 / M ADM Date: 05/17/23 Loc: ER Room: Type: [facility] ER Attending Dr: Ordering Provider: Fransico Mendieta PA-C Date of Service: 05/17/23 ECG/ECG 12 lead ECG: Nausea/Vomiting/Diarrhea Copies to: Test Reason : Blood Pressure : / mmHG Vent. Rate : 075 BPM Atrial Rate : 075 BPM P-R Int : 170 ms QRS Dur : 098 ms QT Int : 334 ms P-R-T Axes : 081 080 071 degrees QTc Int : 372 ms Normal sinus rhythm Nonspecific ST abnormality Abnormal ECG When compared with ECG of 09-MAY-2023 16:01, No significant change was found Confirmed by Layton Becerra DO ([id number]) on 05/17/2023 7:33:34 PM Referred By: Electronically Signed By:Layton Becerra DO Transcribed By: MUS Signed By Layton Becerra DO 3 [phone] Normal [facility] Eosinophils Auto (Bld) [#/Vo l]Ordered By: Fransico Mendieta on 05-17-2023 Eosinophils (Bld) [#/Vol] 0.4 10*3/uL 0.0-0.45 [facility] Eosinophils/100 WBC Auto (Bl d)Ordered By: Fransico Mendieta on 05-17-2023 Eosinophils/100 WBC (Bld) 4.0 % . [facility] Erythrocyte distribution wid th Auto (RBC) [Ratio]Ordered By: Fransico Mendieta on 05-17-2023 Erythrocyte distribution width (RBC) [Ratio] 14.7 % 12.0-14.8 [facility] Globulin Calc (S) [Mass/Vol] Ordered By: Fransico Mendieta on 05-17-2023 Globulin (S) [Mass/Vol] 2.3 g/dL [facility] Glucose [Mass/volume] in Ser um or PlasmaOrdered By: Fransico Mendieta on 05-17-2023 Glucose [Mass/Vol] 105 mg/dL 70-100 [facility] Comment on above: ADA recommended refe rence rangeRandom Glucose Reference Range is dependent on time and content of last meal. Glucose of more than 200 mg/dL in a nonstressed, ambulatory subject supports the diagnosis of Diabetes Mellitus. Hematocrit Auto (Bld) [Volum e fraction]Ordered By: Fransico Mendieta on 05-17-2023 Hematocrit (Bld) [Volume fraction] 33.3 % 38.8-50.0 [facility] Hemoglobin [Mass/volume] in BloodOrdered By: Fransico Mendieta on 05-17-2023 Hemoglobin (Bld) [Mass/Vol] 10.6 g/dL 13.0-17.0 [facility] Hepatic Panelon 05-17-2023 Albumin [Mass/Vol] 3.5 g/dL Normal 3.5-5.7 [facility] Comment on above: Performed By: #### A BG #### Point of Care testing , Albumin/Globulin [Mass ratio] 1.5 {ratio} Normal [facility] Comment on above: Performed By: #### A BG #### Point of Care testing , ALP [Catalytic activity/Vol] 100 U/L Normal 34-104 [facility] Comment on above: Performed By: #### A BG #### Point of Care testing , ALT [Catalytic activity/Vol] 10 U/L Normal 7-52 [facility] Comment on above: Performed By: #### A BG #### Point of Care testing , AST [Catalytic activity/Vol] 14 U/L Normal 13-39 [facility] Comment on above: Performed By: #### A BG #### Point of Care testing , Bilirubin [Mass/Vol] 0.3 mg/dL Normal 0.3-1.0 [facility] Comment on above: Performed By: #### A BG #### Point of Care testing , Bilirubin,Indirect 0.3 mg/dL Normal [facility] Comment on above: Performed By: #### A BG #### Point of Care testing , Bilirubin.indirect [Mass/Vol] 0.00 mg/dL Low 0.03-0.18 [facility] Comment on above: Result Comment: If t he DBIL is less than 0.1, IBIL is not able to be calculated. Performed By: #### A BG #### Point of Care testing , Globulin (S) [Mass/Vol] 2.3 g/dL Normal [facility] Comment on above: Performed By: #### A BG #### Point of Care testing , Protein [Mass/Vol] 5.8 g/dL Low 6.4-8.9 [facility] Comment on above: Performed By: #### A BG #### Point of Care testing , Ketones Auto test strip (U) [Mass/Vol]Ordered By: Fransico Mendieta on 05-17-2023 Ketones (U) [Mass/Vol] Negative Negative [facility] - Chemistry and C hemistry - challengeOrdered By: Fransico Mendieta on 05-17-2023 CO2 [Moles/Vol] 24.3 mmol/L 23.0-27.0 [facility] HCO3 (Bld) [Moles/Vol] 22.1 mmol/L 23.0-29.0 [facility] Laboratory - UrinalysisOrder ed By: Fransico Mendieta on 05-17-2023 Hyaline casts LM Ql (Urine sed) None seen [LPF] 0-8 [facility] Leukocytes [#/volume] correc radha for nucleated erythrocytes in Blood by Automated counOrdered By: Fransico Mendieta on 05-17-2023 WBC corrected for nucl RBC Auto (Bld) [#/Vol] 10.6 10*3/uL 4.1-10.5 [facility] Lipaseon 05-17-2023 Lipase [Catalytic activity/Vol] 32.0 U/L Normal 11.0-82.0 [facility] Comment on above: Result Comment: PERF ORMED BY: [facility] [address] [place] [address] PATHOLOGIST C.O.D. BILLER DI CORONEL M.D. Performed By: #### A BG #### Point of Care testing , Lipase [Enzymatic activity/v olume] in Serum or PlasmaOrdered By: Fransico Mendieta on 05-17-2023 Lipase [Catalytic activity/Vol] 32.0 U/L 11.0-82.0 [facility] Lymphocytes Auto (Bld) [#/Vo l]Ordered By: Fransico Mendieta on 05-17-2023 Lymphocytes (Bld) [#/Vol] 1.1 10*3/uL 1.00-4.8 [facility] Lymphocytes/100 WBC Auto (Bl d)Ordered By: Fransico Mendieta on 05-17-2023 Lymphocytes/100 WBC (Bld) 9.9 % . [facility] MCH Auto (RBC) [Entitic mass ]Ordered By: Fransico Mendieta on 05-17-2023 MCH (RBC) [Entitic mass] 29.9 pg 27.5-35.2 [facility] MCHC Auto (RBC) [Mass/Vol]Or dered By: Fransico Mendieta on 05-17-2023 MCHC (RBC) [Mass/Vol] 32.0 g/dL 32.5-35.6 [facility] MCV Auto (RBC) [Entitic vol] Ordered By: Fransico Mendieta on 05-17-2023 MCV (RBC) [Entitic vol] 93.5 fL 83.5-101 [facility] Monocyte distribution width [Entitic volume] in Blood by AutomatedOrdered By: Fransico Mendieta on 05-17-2023 Monocyte distribution width Auto (Bld) [Entitic vol] 18.65 % 0.00-20.00 [facility] Monocytes Auto (Bld) [#/Vol] Ordered By: Fransico Mendieta on 05-17-2023 Monocytes (Bld) [#/Vol] 1.5 10*3/uL 0.0-0.8 [facility] Monocytes/100 WBC Auto (Bld) Ordered By: Fransico Mendieta on 05-17-2023 Monocytes/100 WBC (Bld) 14.0 % . [facility] Neutrophils Auto (Bld) [#/Vo l]Ordered By: Fransico Mendieta on 05-17-2023 Neutrophils (Bld) [#/Vol] 7.6 10*3/uL 1.8-7.7 [facility] Neutrophils/100 WBC Auto (Bl d)Ordered By: Fransico Mendieta on 05-17-2023 Neutrophils/100 WBC (Bld) 71.3 % . [facility] Nitrite Test strip Ql (U)Ord ered By: Fransico Mendieta on 05-17-2023 Nitrite Ql (U) Negative Negative [facility] No Panel InformationOrdered By: Fransico Mendieta on 05-17-2023 Arterial Blood Base Excess -8.0 mmol/L -3.0-3.0 [facility] Arterial Blood Oxygen Content 6.8 mmol/L 6.6-9.7 [facility] Arterial Blood Oxygen Saturation 95.3 % 95.0-100.0 [facility] Arterial Blood Partial Pressure CO2 70.8 mm[Hg] 35.0-45.0 [facility] Arterial Blood Partial Pressure O2 79.9 mm[Hg] 80.0-100.0 [facility] Arterial Blood pH 7.11 7.35-7.45 [facility] Blood Gas Critical Value See comment [facility] Comment on above: Critical Value sainz d on: 05/17/2023 at 20:39 Blood Gas Sample Site Right brachial [facility] FiO2 28 % [facility] Estimated GFR (CKD-EPI) 12.034 mL/Min [facility] Pharmacy Creatinine Clearance (Chem 15.56 [facility] Nucleated erythrocytes [Pres ence] in Blood by Automated countOrdered By: Fransico Mendieta on 05-17-2023 Nucleated RBC Auto Ql (Bld) 0.3 /100{WBC} 0-0.5 [facility] Platelet mean volume Auto (B ld) [Entitic vol]Ordered By: Fransico Mendieta on 05-17-2023 Platelet mean volume (Bld) [Entitic vol] 7.2 fL 6.6-10.1 [facility] Platelets Auto (Bld) [#/Vol] Ordered By: Fransico Mendieta on 05-17-2023 Platelets (Bld) [#/Vol] 266 10*3/uL 150-450 [facility] Potassium [Moles/volume] in Serum or PlasmaOrdered By: Fransico Mendieta on 05-17-2023 Potassium [Moles/Vol] 4.7 mmol/L 3.5-5.1 [facility] Protein Auto test strip (U) [Mass/Vol]Ordered By: Fransico Mendieta on 05-17-2023 Protein (U) [Mass/Vol] Trace mg/dL Negative [facility] Protein [Mass/volume] in Ser um or PlasmaOrdered By: Fransico Mendieta on 05-17-2023 Protein [Mass/Vol] 5.8 g/dL 6.4-8.9 [facility] RBC Auto (Bld) [#/Vol]Ordere d By: Fransico Mendieta on 05-17-2023 RBC (Bld) [#/Vol] 3.56 10*6/uL 3.90-5.60 [facility] Serum or plasma albumin/glob ulin mass ratioOrdered By: Fransico Mendieta on 05-17-2023 Albumin/Globulin [Mass ratio] 1.5 {ratio} [facility] Serum or plasma anion gap de terminationOrdered By: Fransico Mendieta on 05-17-2023 Anion gap [Moles/Vol] 8.6 mmol/L 6.0-15.0 [facility] Serum or plasma non-glucuron idated bilirubin measurement (mass/volume)Ordered By: Fransico Mendieta on 05-17-2023 Bilirubin.indirect [Mass/Vol] 0.3 mg/dL [facility] Sodium [Moles/volume] in Ser um or PlasmaOrdered By: Fransico Mendieta on 05-17-2023 Sodium [Moles/Vol] 132 mmol/L 136-145 [facility] Specific gravity Auto test s trip (U) [Rel density]Ordered By: Fransico Mnedieta on 05-17-2023 Specific gravity (U) [Rel density] 1.006 1.001-1.03 0 [facility] Squamous epithelial cells de tection in urine sediment by light microscopyOrdered By: Fransico Mendieta on 05-17-2023 Epithelial cells.squamous LM Ql (Urine sed) None seen [HPF] 0-2 [facility] Troponin I High Sensitivityo n 05-17-2023 Troponin I High Sensitivity 10.8 pg/mL Normal 0.0-20.0 [facility] Comment on above: Result Comment: PERF ORMED BY: [facility] [address] [place] [address] PATHOLOGIST C.O.D. BILLER DI CORONEL M.D. Performed By: #### A BG #### Point of Care testing , Troponin I.cardiac [Mass/vol ume] in Serum or Plasma by Detection limit <= 0.01 ng/Ordered By: Fransico Mendieta on 05-17-2023 Troponin I.cardiac DL <= 0.01 ng/mL [Mass/Vol] 10.8 pg/mL 0.0-20.0 [facility] Type and Screenon 09-13-2023 ABO and Rh group Nom (Bld) Blood group A Rh(D) positive Normal [facility] Comment on above: Result Comment: PERF ORMED BY: [place] [address] PATHOLOGIST C.O.D. BILLER DI CORONEL M.D. Urea nitrogen [Mass/volume] in Serum or PlasmaOrdered By: Fransico Mendieta on 05-17-2023 Urea nitrogen [Mass/Vol] 40 mg/dL 7 [facility] Urine bacteria detection by automated methodOrdered By: Fransico Mendieta on 05-17-2023 Bacteria Auto Ql (U) None seen None Seen [facility] Urine clarity by refractomet ry automatedOrdered By: Fransico Mendieta on 05-17-2023 Clarity Refractometry automated (U) Clear Clear [facility] Urine glucose measurement by automated test strip (mass/volume)Ordered By: Fransico Mendieta on 05-17-2023 Glucose Auto test strip (U) [Mass/Vol] Normal mg/dL Normal [facility] Urine hemoglobin detection b y automated test stripOrdered By: Fransico Mendieta on 05-17-2023 Hemoglobin Auto test strip Ql (U) Negative Negative [facility] Urine leukocyte esterase det ection by automated test stripOrdered By: Fransico Mendieta on 05-17-2023 Leukocyte esterase Auto test strip Ql (U) Negative Negative [facility] Urobilinogen Auto test strip (U) [Mass/Vol]Ordered By: Fransico Mendieta on 05-17-2023 Urobilinogen (U) [Mass/Vol] Normal mg/dL Normal [facility] WBC Auto (Bld) [#/Vol]Ordere d By: Fransico Mendieta on 05-17-2023 WBC (Bld) [#/Vol] 10.6 10*3/uL 4.1-10.5 [facility] XR chest 1V portableon 05-17 XR chest 1V portable [facility] Main [address] [address] XRay Report Signed Patient: Ruddy Palmer MR#: [id number] 9 : 1985 Acct:[id number] Age/Sex: 37 / M ADM Date: 05/17/23 Loc: ER Room: Type: [facility] ER Attending Dr: Copies to: Fransico Mendieta PA-C Ordering Provider: Fransico Mendieta PA-C Date of Service: 05/17/23 XR/XR chest 1V portable: Nausea/Vomiting/Diarrhea PORTABLE AP ERECT CHEST 1600 hours CLINICAL HISTORY: Nausea, fatigue, vomiting, diarrhea and snoring COMPARISON: 05/09/2023 A right-sided PICC line is again visualized. The lungs are hyperinflated and there are symmetric hyperlucency of the right in comparison to the left. No focal consolidation is noted. No sizable effusion or pneumothorax is seen. The cardiac and mediastinal contours are similar. The bony structures are osteopenic. XR/XR chest 1V portable IMPRESSION: OBSTRUCTIVE LUNG DISEASE. NO ACUTE FINDINGS. Impression dictated by: Holli Alfonso M.D.05/17/2023 4:43 PM Dictation Location: [place] [address] Transcribed By: [facility] 05/17/23 164 Dictated By: Holli Alfonso MD 05/17/23 1638 Signed By: 05/17/23 1643 [facility] pH Auto test strip (U)Ordere d By: Fransico Mendieta on 05-17-2023 pH (U) 6.0 [pH] 5.0-9.0 [facility] Basic Metabolic Panelon Creatinine Clr Calc Pharmacy 13.53 [facility] Comment on above: Result Comment: PERF ORMED BY: [place] [address] PATHOLOGIST C.O.D. BILLER DI CORONEL M.D. Performed By: #### C UU, URDS #### [facility] [address] [place] [address] [place] GFR/1.73 sq M.predicted MDRD (S/P/Bld) [Vol rate/Area] 9.403 mL/min/{1.73_m2} [facility] Comment on above: Performed By: #### C UU, URDS #### [facility] [address] [place], [place] [id number] [place] Calcium [Mass/volume] in Ser um or PlasmaOrdered By: Obaydah Daromar on 05-12-2023 Calcium [Mass/Vol] 8.4 mg/dL Low 8.6-10.3 [facility] Comment on above: Performed By: #### C UU, URDS #### [facility] [address] [place] [address] Carbon dioxide, total [Moles /volume] in Serum or PlasmaOrdered By: Obaydah Daromar on 05-12-2023 CO2 [Moles/Vol] 22.4 mmol/L Normal 21.0-31.0 [facility] Comment on above: Performed By: #### C UU, URDS #### [facility] [address] [place] [address] Chloride [Moles/volume] in S adolph or PlasmaOrdered By: Obaydah Daromar on 05-12-2023 Chloride [Moles/Vol] 99 mmol/L Normal 98-107 [facility] Comment on above: Performed By: #### C UU, URDS #### [facility] [address] [place] [address] Creatinine [Mass/volume] in Serum or PlasmaOrdered By: Obaydah Daromar on 05-12-2023 Creatinine [Mass/Vol] 7.10 mg/dL High 0.70-1.30 [facility] Comment on above: Performed By: #### C UU, URDS #### [facility] [address] [place] [address] [place] Erythrocyte distribution wid th [Ratio] by Automated countOrdered By: Obarlenedah Daromar on 05-12-2023 Erythrocyte distribution width (RBC) [Ratio] 14.8 % Normal 12.0-14.8 [facility] Comment on above: Performed By: #### C UU, URDS #### [facility] [address] [place] [address] [place] Erythrocytes [#/volume] in B lood by Automated countOrdered By: Obarlenedah Daromar on 05-12-2023 RBC (Bld) [#/Vol] 3.50 10*6/uL Low 3.90-5.60 [facility] Comment on above: Performed By: #### C YEIMY AGARWAL #### [facility] [address] Glucose [Mass/volume] in Ser um or PlasmaOrdered By: Michael Hindsr on 05-12-2023 Glucose [Mass/Vol] 96 mg/dL Normal 70-100 [facility] Comment on above: ADA recommended refe rence rangeRandom Glucose Reference Range is dependent on time and content of last meal. Glucose of more than 200 mg/dL in a nonstressed, ambulatory subject supports the diagnosis of Diabetes Mellitus. Result Comment: [place] Glucose Reference Range is dependent on time and content of last meal. Glucose of more than 200 mg/dL in a nonstressed, ambulatory subject supports the diagnosis of Diabetes Mellitus. ADA recommended reference range Performed By: #### C STEFANO, URJACQUELYN #### [facility] [address] Hematocrit [Volume Fraction] of Blood by Automated countOrdered By: Michael Gonzalez on 05-12-2023 Hematocrit (Bld) [Volume fraction] 31.9 % Significant change down 38.8-50.0 [facility] Comment on above: Delta: 22.2 on 05/11-1430 Performed By: #### C STEFANO, URDS #### [facility] [address] Hemoglobin [Mass/volume] in BloodOrdered By: Michael Gonzalez on 05-12-2023 Hemoglobin (Bld) [Mass/Vol] 10.6 g/dL Low 13.0-17.0 [facility] Comment on above: Performed By: #### C STEFANO, URDS #### [facility] [address] Hemogram CBC Without Diffon 05-12-2023 Mean Corpuscular HGB Conc 33.2 g/dL Normal 32.5-35.6 [facility] Comment on above: Performed By: #### C UU, URDS #### [facility] [address] WBC (Bld) [#/Vol] 9.1 10*3/uL Normal 4.1-10.5 [facility] Comment on above: Performed By: #### C UU, URDS #### [facility] [address] Leukocytes [#/volume] correc radha for nucleated erythrocytes in Blood by Automated counOrdered By: Michael Willardomar on 05-12-2023 WBC corrected for nucl RBC Auto (Bld) [#/Vol] 9.1 10*3/uL 4.1-10.5 [facility] MCH [Entitic mass] by Automa radha countOrdered By: Michael Hindsr on 05-12-2023 MCH (RBC) [Entitic mass] 30.3 pg Normal 27.5-35.2 [facility] Comment on above: Performed By: #### C UU, URDS #### [address] MCHC Auto (RBC) [Mass/Vol]Or dered By: Michael Willardomar on 05-12-2023 MCHC (RBC) [Mass/Vol] 33.2 g/dL 32.5-35.6 [facility] MCV [Entitic volume] by Auto mated countOrdered By: Michael Gonzalez on 05-12-2023 MCV (RBC) [Entitic vol] 91.1 fL Normal 83.5-101 [facility] Comment on above: Performed By: #### C UU, URDS #### [facility] [address] [place] [address] No Panel InformationOrdered By: Michael Gonzalez on 05-12-2023 Estimated GFR (CKD-EPI) 9.403 mL/Min [facility] Pharmacy Creatinine Clearance (Chem 13.53 [facility] Platelet mean volume [Entiti c volume] in Blood by Automated countOrdered By: Michael Hindsr on 05-12-2023 Platelet mean volume (Bld) [Entitic vol] 7.6 fL Normal 6.6-10.1 [facility] Comment on above: Result Comment: PERF ORMED BY: [place] [address] PATHOLOGIST C.O.D. BILLER DI CORONEL M.D. Performed By: #### C UU, URDS #### [facility] [address] [place] [address] [place] Platelets [#/volume] in Bloo d by Automated countOrdered By: Obaydah Daromar on 05-12-2023 Platelets (Bld) [#/Vol] 300 10*3/uL Normal 150-450 [facility] Comment on above: Performed By: #### C UU, URDS #### [address] Potassium [Moles/volume] in Serum or PlasmaOrdered By: Obaydah Daromar on 05-12-2023 Potassium [Moles/Vol] 4.2 mmol/L Normal 3.5-5.1 [facility] Comment on above: Performed By: #### C UU, URDS #### [address] Serum or plasma anion gap de terminationOrdered By: Obaydah Daromar on 05-12-2023 Anion gap [Moles/Vol] 15.8 mmol/L High 6.0-15.0 [facility] Comment on above: Performed By: #### C UU, URDS #### [facility] [address] [place] [address] [place] Sodium [Moles/volume] in Ser um or PlasmaOrdered By: Obaydah Daromar on 05-12-2023 Sodium [Moles/Vol] 133 mmol/L Low 136-145 [facility] Comment on above: Performed By: #### C UU, URDS #### [facility] [address] [place] [address] [place] Urea nitrogen [Mass/volume] in Serum or PlasmaOrdered By: Obaydah Daromar on 05-12-2023 Urea nitrogen [Mass/Vol] 86 mg/dL High 7-25 [facility] Comment on above: Performed By: #### C STEFANO URJACQUELYN #### [facility] [address] Basic Metabolic Panelon Anion gap [Moles/Vol] 14.3 mmol/L Normal 6.0-15.0 [facility] Comment on above: Performed By: #### C UBernarda, URDS #### [facility] [address] Calcium [Mass/Vol] 8.3 mg/dL Low 8.6-10.3 [facility] Comment on above: Performed By: #### C STEFANO URDS #### [address] Chloride [Moles/Vol] 99 mmol/L Normal 98-107 [facility] Comment on above: Performed By: #### C UBernarda, URDS #### [address] CO2 [Moles/Vol] 22.0 mmol/L Normal 21.0-31.0 [facility] Comment on above: Performed By: #### C STEFANO URJACQUELYN #### [address] Creatinine [Mass/Vol] 6.83 mg/dL Significan t change up 0.70-1.30 [facility] Comment on above: Performed By: #### C UU, URDS #### [address] Creatinine Clr Calc Pharmacy 13.57 Normal [facility] Comment on above: Result Comment: PERF ORMED BY: [place] [address] PATHOLOGIST C.O.D. BILLER DI CORONEL M.D. Performed By: #### C UU, URDS #### [address] GFR/1.73 sq M.predicted MDRD (S/P/Bld) [Vol rate/Area] 9.850 mL/min/{1.73_m2} Normal [facility] Comment on above: Performed By: #### C UU, URDS #### [facility] [address] Glucose [Mass/Vol] 93 mg/dL Normal 70-100 [facility] Comment on above: Result Comment: [facility] Glucose Reference Range is dependent on time and content of last meal. Glucose of more than 200 mg/dL in a nonstressed, ambulatory subject supports the diagnosis of Diabetes Mellitus. ADA recommended reference range Performed By: #### C UU, URDS #### [facility] [address] Potassium [Moles/Vol] 4.3 mmol/L Normal 3.5-5.1 [facility] Comment on above: Performed By: #### C UU, URDS #### [address] Sodium [Moles/Vol] 131 mmol/L Low 136-145 [facility] Comment on above: Performed By: #### C UU, URDS #### [address] Urea nitrogen [Mass/Vol] 80 mg/dL High 7-25 [facility] Comment on above: Performed By: #### C UU, URDS #### [address] Hemoglobin and Hematocriton 05-11-2023 Hematocrit (Bld) [Volume fraction] 22.2 % Low 38.8-50.0 [facility] Comment on above: Result Comment: PERF ORMED BY: [place] [address] PATHOLOGIST C.O.D. BILLER DI CORONEL M.D. Performed By: #### C UU, URDS #### [address] Hemoglobin (Bld) [Mass/Vol] 7.3 g/dL Low 13.0-17.0 [facility] Comment on above: Performed By: #### C UU, URDS #### [address] Hemogram CBC Without Diffon 05-11-2023 Erythrocyte distribution width (RBC) [Ratio] 14.6 % Normal 12.0-14.8 [facility] Comment on above: Performed By: #### C UU, URDS #### [address] Hematocrit (Bld) [Volume fraction] 24.8 % Low 38.8-50.0 [facility] Comment on above: Performed By: #### C UU, URDS #### [address] Hemoglobin (Bld) [Mass/Vol] 8.1 g/dL Low 13.0-17.0 [facility] Comment on above: Performed By: #### C UU, URDS #### [address] MCH (RBC) [Entitic mass] 30.5 pg Normal 27.5-35.2 [facility] Comment on above: Performed By: #### C UU, URDS #### [address] MCV (RBC) [Entitic vol] 93.4 fL Normal 83.5-101 [facility] Comment on above: Performed By: #### C UU, URDS #### [address] Mean Corpuscular HGB Conc 32.7 g/dL Normal 32.5-35.6 [facility] Comment on above: Performed By: #### C UU, URDS #### [address] Platelet mean volume (Bld) [Entitic vol] 7.3 fL Normal 6.6-10.1 [facility] Comment on above: Result Comment: PERF ORMED BY: [place] [address] PATHOLOGIST C.O.D. BILLER DI CORONEL M.D. Performed By: #### C UU, URDS #### [facility] [address] Platelets (Bld) [#/Vol] 350 10*3/uL Normal 150-450 [facility] Comment on above: Performed By: #### C UU, URDS #### [facility] [address] RBC (Bld) [#/Vol] 2.65 10*6/uL Low 3.90-5.60 [facility] Comment on above: Performed By: #### C UU, URDS #### [facility] [address] WBC (Bld) [#/Vol] 10.4 10*3/uL Normal 4.1-10.5 [facility] Comment on above: Performed By: #### C UU, URDS #### [facility] [address] Alanine aminotransferase [En zymatic activity/volume] in Serum or PlasmaOrdered By: Obaydah Daromar on 05-10-2023 ALT [Catalytic activity/Vol] 12 U/L 7-52 [facility] Albumin [Mass/volume] in Ser um or Plasma by Bromocresol green (BCG) dye binding methoOrdered By: Obaydah Daromar on 05-10-2023 Albumin BCG dye [Mass/Vol] 3.2 g/dL 3.5-5.7 [facility] Alkaline phosphatase [Enzyma tic activity/volume] in Serum or PlasmaOrdered By: Obaydah Daromar on 05-10-2023 ALP [Catalytic activity/Vol] 90 U/L 34-104 [facility] Aspartate aminotransferase [ Enzymatic activity/volume] in Serum or PlasmaOrdered By: Obaydah Daromar on 05-10-2023 AST [Catalytic activity/Vol] 11 U/L 13-39 [facility] Basophils Auto (Bld) [#/Vol] Ordered By: Obaydah Daromar on 05-10-2023 Basophils (Bld) [#/Vol] 0.0 10*3/uL 0.0-0.2 [facility] Basophils/100 WBC Auto (Bld) Ordered By: Michael Gonzalez on 05-10-2023 Basophils/100 WBC (Bld) 0.3 % . [facility] Bilirubin.total [Mass/volume ] in Serum or PlasmaOrdered By: Michael Gonzalez on 05-10-2023 Bilirubin [Mass/Vol] 0.5 mg/dL 0.3-1.0 [facility] Complete Blood Count Auto Di ffon 05-10-2023 Basophils (Bld) [#/Vol] 0.0 10*3/uL Normal 0.0-0.2 [facility] Comment on above: Result Comment: PERF ORMED BY: [place] [address] PATHOLOGIST C.O.D. BILLER DI CORONEL M.D. Performed By: #### C UU, URDS #### [address] Basophils/100 WBC (Bld) 0.3 % Normal . [facility] Comment on above: Performed By: #### C UU, URDS #### [address] Eosinophils (Bld) [#/Vol] 0.3 10*3/uL Normal 0.0-0.45 [facility] Comment on above: Performed By: #### C UU, URDS #### [place] [address] [place] Eosinophils/100 WBC (Bld) 3.7 % Normal . [facility] Comment on above: Performed By: #### C UU, URDS #### [address] Erythrocyte distribution width (RBC) [Ratio] 14.8 % Normal 12.0-14.8 [facility] Comment on above: Performed By: #### C UU, URDS #### [place] [address] [place] Hematocrit (Bld) [Volume fraction] 28.4 % Low 38.8-50.0 [facility] Comment on above: Performed By: #### C UU, URDS #### [facility] [address] Hemoglobin (Bld) [Mass/Vol] 9.2 g/dL Low 13.0-17.0 [facility] Comment on above: Performed By: #### C UU, URDS #### [address] Lymphocytes (Bld) [#/Vol] 1.2 10*3/uL Normal 1.00-4.8 [facility] Comment on above: Performed By: #### C STEFANO, URDS #### [address] Lymphocytes/100 WBC (Bld) 13.4 % Normal . [facility] Comment on above: Performed By: #### C STEFANO, URDS #### [address] MCH (RBC) [Entitic mass] 30.7 pg Normal 27.5-35.2 [facility] Comment on above: Performed By: #### C STEFANO, URDS #### [address] MCV (RBC) [Entitic vol] 94.9 fL Normal 83.5-101 [facility] Comment on above: Performed By: #### C BernardaU, URDS #### [address] Mean Corpuscular HGB Conc 32.4 g/dL Low 32.5-35.6 [facility] Comment on above: Performed By: #### C UU, URDS #### [address] Monocytes (Bld) [#/Vol] 0.8 10*3/uL Normal 0.0-0.8 [facility] Comment on above: Performed By: #### C BernardaU, URDS #### [facility] [address] [place] [address] [place] Monocytes/100 WBC (Bld) 9.0 % Normal . [facility] Comment on above: Performed By: #### C UU, URDS #### [facility] [address] Neutrophils (Bld) [#/Vol] 6.8 10*3/uL Normal 1.8-7.7 [facility] Comment on above: Performed By: #### C UU, URDS #### [facility] [address] Neutrophils/100 WBC (Bld) 73.6 % Normal . [facility] Comment on above: Performed By: #### C UU, URDS #### [facility] [address] NRBC% 0.1 /100{WBC} Normal 0-0.5 [facility] Comment on above: Performed By: #### C UU, URDS #### [facility] [address] Platelet mean volume (Bld) [Entitic vol] 7.7 fL Normal 6.6-10.1 [facility] Comment on above: Performed By: #### C UU, URDS #### [facility] [address] [place] [address] [place] Platelets (Bld) [#/Vol] 350 10*3/uL Normal 150-450 [facility] Comment on above: Performed By: #### C UU, URDS #### [facility] [address] [place] [address] [place] RBC (Bld) [#/Vol] 2.99 10*6/uL Low 3.90-5.60 [facility] Comment on above: Performed By: #### C UU, URDS #### [facility] [address] [place] [address] [place] WBC (Bld) [#/Vol] 9.2 10*3/uL Normal 4.1-10.5 [facility] Comment on above: Performed By: #### C UU, URDS #### [facility] [address] Comprehensive Metabolic Pane clara 05-10-2023 Albumin [Mass/Vol] 3.2 g/dL Low 3.5-5.7 [facility] Comment on above: Performed By: #### C UU, URDS #### [facility] [address] Albumin/Globulin [Mass ratio] 1.4 {ratio} Normal [facility] Comment on above: Performed By: #### C UU, URDS #### [facility] [address] ALP [Catalytic activity/Vol] 90 U/L Normal 34-104 [facility] Comment on above: Performed By: #### C UU, URDS #### [facility] [address] ALT [Catalytic activity/Vol] 12 U/L Normal 7-52 [facility] Comment on above: Performed By: #### C UU, URDS #### [facility] [address] Anion gap [Moles/Vol] 14.7 mmol/L Normal 6.0-15.0 [facility] Comment on above: Performed By: #### C UU, URDS #### [facility] [address] AST [Catalytic activity/Vol] 11 U/L Low 13-39 [facility] Comment on above: Performed By: #### C UU, URDS #### [facility] [address] Bilirubin [Mass/Vol] 0.5 mg/dL Normal 0.3-1.0 [facility] Comment on above: Performed By: #### C UU, URDS #### [facility] [address] Calcium [Mass/Vol] 8.2 mg/dL Low 8.6-10.3 [facility] Comment on above: Performed By: #### C UU, URDS #### [facility] [address] [place] [address] [place] Chloride [Moles/Vol] 99 mmol/L Normal 98-107 [facility] Comment on above: Performed By: #### C UU, URDS #### [facility] [address] [place] [address] [place] CO2 [Moles/Vol] 22.2 mmol/L Normal 21.0-31.0 [facility] Comment on above: Performed By: #### C UU, URDS #### [facility] [address] Creatinine [Mass/Vol] 5.62 mg/dL Significan t change up 0.70-1.30 [facility] Comment on above: Performed By: #### C UU, URDS #### [facility] [address] Creatinine Clr Calc Pharmacy 16.49 [facility] Comment on above: Performed By: #### C UU, URDS #### [facility] [address] [place] [address] [place] GFR/1.73 sq M.predicted MDRD (S/P/Bld) [Vol rate/Area] 12.447 mL/min/{1.73_m2} Normal [facility] Comment on above: Performed By: #### C UU, URDS #### [facility] [address] [place] [address] [place] Globulin (S) [Mass/Vol] 2.3 g/dL Normal [facility] Comment on above: Performed By: #### C UU, URDS #### [facility] [address] [place] [address] [place] Glucose [Mass/Vol] 89 mg/dL Normal 70-100 [facility] Comment on above: Result Comment: [place] Glucose Reference Range is dependent on time and content of last meal. Glucose of more than 200 mg/dL in a nonstressed, ambulatory subject supports the diagnosis of Diabetes Mellitus. ADA recommended reference range Performed By: #### C UU, URDS #### [facility] [facility] [address] [place] [address] [place] Potassium [Moles/Vol] 4.9 mmol/L Normal 3.5-5.1 [facility] Comment on above: Performed By: #### C UU, URDS #### [facility] [address] Protein [Mass/Vol] 5.5 g/dL Low 6.4-8.9 [facility] Comment on above: Performed By: #### C UU, URDS #### [facility] [address] Sodium [Moles/Vol] 131 mmol/L Low 136-145 [facility] Comment on above: Performed By: #### C UU, URDS #### [facility] [address] Urea nitrogen [Mass/Vol] 69 mg/dL High 7-25 [facility] Comment on above: Performed By: #### C UU, URDS #### [facility] [address] [place] [address] [place] Eosinophils Auto (Bld) [#/Vo l]Ordered By: Michael Gonzalez on 05-10-2023 Eosinophils (Bld) [#/Vol] 0.3 10*3/uL 0.0-0.45 [facility] Eosinophils/100 WBC Auto (Bl d)Ordered By: Michael Gonzalez on 05-10-2023 Eosinophils/100 WBC (Bld) 3.7 % . [facility] Globulin Calc (S) [Mass/Vol] Ordered By: Michael Gonzalez on 05-10-2023 Globulin (S) [Mass/Vol] 2.3 g/dL [facility] INR in Platelet poor plasma by Coagulation assayOrdered By: Michael Gonzalez on 05-10-2023 INR Coag (PPP) [Relative time] 0.9 {INR} [facility] Comment on above: INR Therapeutic Rang e A) Pre- and Peroperative OAT started two weeks before surgery. NOT HIP SURGERY: 1.5 - 2.5 HIP SURGERY: 2 - 3B) Primary and secondary prevention of venous THROMBOSIS: 2 - 3C) Active venous thrombosis, pulmonary embolismand prevention of recurrent venous thrombosis: 2 - 3D) Prevention of arterial thromboembolismincluding patients with mechanical heart valves: 3 - 4.5 Laboratory - CoagulationOrde red By: Michael Gonzalez on 05-10-2023 PT Coag (PPP) [Time] 10.7 s 9.0-12.9 [facility] Lymphocytes Auto (Bld) [#/Vo l]Ordered By: Michael Gonzalez on 05-10-2023 Lymphocytes (Bld) [#/Vol] 1.2 10*3/uL 1.00-4.8 [facility] Lymphocytes/100 WBC Auto (Bl d)Ordered By: Michael Gonzalez on 05-10-2023 Lymphocytes/100 WBC (Bld) 13.4 % . [facility] Magnesiumon 05-10-2023 Magnesium [Mass/Vol] 1.9 mg/dL Normal 1.9-2.7 [facility] Comment on above: Result Comment: PERF ORMED BY: [place] [address] PATHOLOGIST C.O.D. BILLER DI CORONEL M.D. Performed By: #### C UU, YEIMY #### [address] Magnesium [Mass/volume] in S ad[place] or PlasmaOrdered By: Michael Gonzalez on 05-10-2023 Magnesium [Mass/Vol] 1.9 mg/dL 1.9-2.7 [facility] Monocytes Auto (Bld) [#/Vol] Ordered By: Michael Hindsr on 05-10-2023 Monocytes (Bld) [#/Vol] 0.8 10*3/uL 0.0-0.8 [facility] Monocytes/100 WBC Auto (Bld) Ordered By: Michael Hindsr on 05-10-2023 Monocytes/100 WBC (Bld) 9.0 % . [facility] Neutrophils Auto (Bld) [#/Vo l]Ordered By: Michael Gonzalez on 05-10-2023 Neutrophils (Bld) [#/Vol] 6.8 10*3/uL 1.8-7.7 [facility] Neutrophils/100 WBC Auto (Bl d)Ordered By: Michael Gonzalez on 05-10-2023 Neutrophils/100 WBC (Bld) 73.6 % . [facility] Nucleated erythrocytes [Pres ence] in Blood by Automated countOrdered By: Michael Gonzalez on 05-10-2023 Nucleated RBC Auto Ql (Bld) 0.1 /100{WBC} 0-0.5 [facility] Phosphate [Mass/volume] in S ad[place] or PlasmaOrdered By: Michael Gonzalez on 05-10-2023 Phosphate [Mass/Vol] 7.0 mg/dL 3.7-7.2 [facility] Phosphoruson 05-10-2023 Phosphate [Mass/Vol] 7.0 mg/dL Normal 3.7-7.2 [facility] Comment on above: Performed By: #### C UU, URDS #### [address] Protein [Mass/volume] in Ser um or PlasmaOrdered By: Michael Gonzalez on 05-10-2023 Protein [Mass/Vol] 5.5 g/dL 6.4-8.9 [facility] Prothrombin Time INRon 05-10 INR Coag (PPP) [Relative time] 0.9 {INR} Normal [facility] Comment on above: Result Comment: INR Therapeutic Range A) Pre- and Peroperative OAT started two weeks before surgery. NOT HIP SURGERY: 1.5 - 2.5 HIP SURGERY: 2 - 3 B) Primary and secondary prevention of venous THROMBOSIS: 2 - 3 C) Active venous thrombosis, pulmonary embolism and prevention of recurrent venous thrombosis: 2 - 3 D) Prevention of arterial thromboembolism including patients with mechanical heart valves: 3 - 4.5 PERFORMED BY: [place] [address] PATHOLOGIST C.O.D. BILLER DI CORONEL M.D. Performed By: #### C UU, URDS #### [facility] [address] [place] [id number] [facility] PT Coag (PPP) [Time] 10.7 s Normal 9.0-12.9 [facility] Comment on above: Performed By: #### C UU, URDS #### [facility] [address] Serum or plasma albumin/glob ulin mass ratioOrdered By: Obdanuta Willardomar on 05-10-2023 Albumin/Globulin [Mass ratio] 1.4 {ratio} [facility] WBC Auto (Bld) [#/Vol]Ordere d By: Obaydadanie Willardomar on 05-10-2023 WBC (Bld) [#/Vol] 9.2 10*3/uL 4.1-10.5 [facility] Alanine aminotransferase [En zymatic activity/volume] in Serum or PlasmaOrdered By: Fransico Mendieta on 05-09-2023 ALT [Catalytic activity/Vol] 13 U/L 7-52 [facility] Albumin [Mass/volume] in Ser um or Plasma by Bromocresol green (BCG) dye binding methoOrdered By: Fransico Mendieta on 05-09-2023 Albumin BCG dye [Mass/Vol] 3.2 g/dL 3.5-5.7 [facility] Alkaline phosphatase [Enzyma tic activity/volume] in Serum or PlasmaOrdered By: Fransico Mendieta on 05-09-2023 ALP [Catalytic activity/Vol] 79 U/L 34-104 [facility] Aspartate aminotransferase [ Enzymatic activity/volume] in Serum or PlasmaOrdered By: Fransico Mendieta on 05-09-2023 AST [Catalytic activity/Vol] 13 U/L 13-39 [facility] B-Type Natriuretic Peptideon 05-09-2023 Natriuretic peptide B (Bld) [Mass/Vol] 787.0 pg/mL High 5-100 [facility] Comment on above: Result Comment: PERF ORMED BY: [place] [address] PATHOLOGIST C.O.D. BILLER DI CORONEL M.D. Performed By: #### B MP #### [facility] [address] Bacterial blood cultureOrder ed By: Fransico Mendieta on 05-09-2023 Bacteria identified Cx Nom (Bld) NO GROWTH 5 DAYS [facility] Basic Metabolic Panelon Anion gap [Moles/Vol] 11.0 mmol/L Normal 6.0-15.0 [facility] Comment on above: Performed By: #### C BC, BNP, CUBLD, BMP, HS TROP, CK, HEPATIC, LACTIC ####[facility] Calcium [Mass/Vol] 7.9 mg/dL Low 8.6-10.3 [facility] Comment on above: Performed By: #### C BC, BNP, CUBLD, BMP, HS TROP, CK, HEPATIC, LACTIC ####[facility] Chloride [Moles/Vol] 99 mmol/L Normal 98-107 [facility] Comment on above: Performed By: #### C BC, BNP, CUBLD, BMP, HS TROP, CK, HEPATIC, LACTIC ####[facility] CO2 [Moles/Vol] 23.8 mmol/L Normal 21.0-31.0 [facility] Comment on above: Performed By: #### C BC, BNP, CUBLD, BMP, HS TROP, CK, HEPATIC, LACTIC ####[place] [address] [address] Creatinine [Mass/Vol] 4.81 mg/dL High 0.70-1.30 [facility] Comment on above: Performed By: #### C BC, BNP, CUBLD, BMP, HS TROP, CK, HEPATIC, LACTIC ####[place] [address] Creatinine Clr Calc Pharmacy 19.82 Normal [facility] Comment on above: Result Comment: PERF ORMED BY: [facility] [address] [place] [address] PATHOLOGIST C.O.D. BILLER DI CORONEL M.D. Performed By: #### C BC, BNP, CUBLD, BMP, HS TROP, CK, HEPATIC, LACTIC ####[place] [address] [place] [id number] [facility] GFR/1.73 sq M.predicted MDRD (S/P/Bld) [Vol rate/Area] 15.003 mL/min/{1.73_m2} Normal [facility] Comment on above: Performed By: #### C BC, BNP, CUBLD, BMP, HS TROP, CK, HEPATIC, LACTIC ####[place] [address] [place] [id number] [facility] Glucose [Mass/Vol] 103 mg/dL High 70-100 [facility] Comment on above: Result Comment: [facility] Glucose Reference Range is dependent on time and content of last meal. Glucose of more than 200 mg/dL in a nonstressed, ambulatory subject supports the diagnosis of Diabetes Mellitus. ADA recommended reference range Performed By: #### C BC, BNP, CUBLD, BMP, HS TROP, CK, HEPATIC, LACTIC ####[place] [address] [place] [id number] [facility] Potassium [Moles/Vol] 4.8 mmol/L Normal 3.5-5.1 [facility] Comment on above: Performed By: #### C BC, BNP, CUBLD, BMP, HS TROP, CK, HEPATIC, LACTIC ####[place] [address] [place] [address] [facility] Sodium [Moles/Vol] 129 mmol/L Low 136-145 [facility] Comment on above: Performed By: #### C BC, BNP, CUBLD, BMP, HS TROP, CK, HEPATIC, LACTIC ####[address] [address] [facility] Urea nitrogen [Mass/Vol] 64 mg/dL High 7-25 [facility] Comment on above: Performed By: #### C BC, BNP, CUBLD, BMP, HS TROP, CK, HEPATIC, LACTIC ####[place] [address] [place] [address] [facility] Basophils Auto (Bld) [#/Vol] Ordered By: Fransico Mendieta on 05-09-2023 Basophils (Bld) [#/Vol] 0.0 10*3/uL 0.0-0.2 [facility] Basophils/100 WBC Auto (Bld) Ordered By: Fransico Mendieta on 05-09-2023 Basophils/100 WBC (Bld) 0.2 % . [facility] Bilirubin.direct [Mass/volum e] in Serum or PlasmaOrdered By: Fransico Mendieta on 05-09-2023 Bilirubin.direct [Mass/Vol] 0.00 mg/dL 0.03-0.18 [facility] Comment on above: If the DBIL is less than 0.1, IBIL is not able to becalculated. Bilirubin.total [Mass/volume ] in Serum or PlasmaOrdered By: Fransico Mendieta on 05-09-2023 Bilirubin [Mass/Vol] 0.3 mg/dL 0.3-1.0 [facility] Blood Cultureon 05-09-2023 Bacteria identified Cx Nom (Bld) NO GROWTH 5 DAYS PERFORMED BY: [place] [address] PATHOLOGIST C.O.D. BILLER DI CORONEL M.D. [facility] Comment on above: Performed By: #### B MP #### [facility] [address] [place] [address] Bacteria identified Cx Nom (Bld) NO GROWTH 5 DAYS PERFORMED BY: [place] [address] PATHOLOGIST C.O.D. BILLER DI CORONEL M.D. [facility] Comment on above: Performed By: #### B MP #### [facility] [address] [place] [address] Calcium [Mass/volume] in Ser um or PlasmaOrdered By: Fransico Mendieta on 05-09-2023 Calcium [Mass/Vol] 7.9 mg/dL 8.6-10.3 [facility] Carbon dioxide, total [Moles /volume] in Serum or PlasmaOrdered By: Fransico Mendieta on 05-09-2023 CO2 [Moles/Vol] 23.8 mmol/L 21.0-31.0 [facility] Chloride [Moles/volume] in S [place] or PlasmaOrdered By: Fransico Mendieta on 05-09-2023 Chloride [Moles/Vol] 99 mmol/L 98-107 [facility] Complete Blood Count Auto Di ffon 05-09-2023 Basophils (Bld) [#/Vol] 0.0 10*3/uL Normal 0.0-0.2 [facility] Comment on above: Result Comment: PERF ORMED BY: [facility] [address] [address] PATHOLOGIST C.O.D. BILLER DI CORONEL M.D. Performed By: #### C BC, BNP, CUBLD, BMP, HS TROP, CK, HEPATIC, LACTIC ####[address] Basophils/100 WBC (Bld) 0.2 % Normal . [facility] Comment on above: Performed By: #### C BC, BNP, CUBLD, BMP, HS TROP, CK, HEPATIC, LACTIC ####[address] Eosinophils (Bld) [#/Vol] 0.1 10*3/uL Normal 0.0-0.45 [facility] Comment on above: Performed By: #### C BC, BNP, CUBLD, BMP, HS TROP, CK, HEPATIC, LACTIC ####[address] Eosinophils/100 WBC (Bld) 1.2 % Normal . [facility] Comment on above: Performed By: #### C BC, BNP, CUBLD, BMP, HS TROP, CK, HEPATIC, LACTIC ####[address] Erythrocyte distribution width (RBC) [Ratio] 14.7 % Normal 12.0-14.8 [facility] Comment on above: Performed By: #### C BC, BNP, CUBLD, BMP, HS TROP, CK, HEPATIC, LACTIC ####[address] Hematocrit (Bld) [Volume fraction] 24.3 % Low 38.8-50.0 [facility] Comment on above: Performed By: #### C BC, BNP, CUBLD, BMP, HS TROP, CK, HEPATIC, LACTIC ####[address] Hemoglobin (Bld) [Mass/Vol] 7.6 g/dL Low 13.0-17.0 [facility] Comment on above: Performed By: #### C BC, BNP, CUBLD, BMP, HS TROP, CK, HEPATIC, LACTIC ####[address] Lymphocytes (Bld) [#/Vol] 1.3 10*3/uL Normal 1.00-4.8 [facility] Comment on above: Performed By: #### C BC, BNP, CUBLD, BMP, HS TROP, CK, HEPATIC, LACTIC ####[address] Lymphocytes/100 WBC (Bld) 13.3 % Normal . [facility] Comment on above: Performed By: #### C BC, BNP, CUBLD, BMP, HS TROP, CK, HEPATIC, LACTIC ####[address] MCH (RBC) [Entitic mass] 30.1 pg Normal 27.5-35.2 [facility] Comment on above: Performed By: #### C BC, BNP, CUBLD, BMP, HS TROP, CK, HEPATIC, LACTIC ####[address] MCV (RBC) [Entitic vol] 95.9 fL Normal 83.5-101 [facility] Comment on above: Performed By: #### C BC, BNP, CUBLD, BMP, HS TROP, CK, HEPATIC, LACTIC ####[address] Mean Corpuscular HGB Conc 31.4 g/dL Low 32.5-35.6 [facility] Comment on above: Performed By: #### C BC, BNP, CUBLD, BMP, HS TROP, CK, HEPATIC, LACTIC ####[address] Monocytes (Bld) [#/Vol] 1.1 10*3/uL High 0.0-0.8 [facility] Comment on above: Performed By: #### C BC, BNP, CUBLD, BMP, HS TROP, CK, HEPATIC, LACTIC ####[address] Monocytes/100 WBC (Bld) 18.33 % Normal 0.00-20.00 [facility] Comment on above: Performed By: #### C BC, BNP, CUBLD, BMP, HS TROP, CK, HEPATIC, LACTIC ####[address] Monocytes/100 WBC (Bld) 10.8 % Normal . [facility] Comment on above: Performed By: #### C BC, BNP, CUBLD, BMP, HS TROP, CK, HEPATIC, LACTIC ####[address] Neutrophils (Bld) [#/Vol] 7.5 10*3/uL Normal 1.8-7.7 [facility] Comment on above: Performed By: #### C BC, BNP, CUBLD, BMP, HS TROP, CK, HEPATIC, LACTIC ####[address] Neutrophils/100 WBC (Bld) 74.5 % Normal . [facility] Comment on above: Performed By: #### C BC, BNP, CUBLD, BMP, HS TROP, CK, HEPATIC, LACTIC ####[place] [id number] [facility] NRBC% 0.1 /100{WBC} Normal 0-0.5 [facility] Comment on above: Performed By: #### C BC, BNP, CUBLD, BMP, HS TROP, CK, HEPATIC, LACTIC ####[address] Platelet mean volume (Bld) [Entitic vol] 7.4 fL Normal 6.6-10.1 [facility] Comment on above: Performed By: #### C BC, BNP, CUBLD, BMP, HS TROP, CK, HEPATIC, LACTIC ####[facility] Platelets (Bld) [#/Vol] 362 10*3/uL Normal 150-450 [facility] Comment on above: Performed By: #### C BC, BNP, CUBLD, BMP, HS TROP, CK, HEPATIC, LACTIC ####[facility] RBC (Bld) [#/Vol] 2.53 10*6/uL Low 3.90-5.60 [facility] Comment on above: Performed By: #### C BC, BNP, CUBLD, BMP, HS TROP, CK, HEPATIC, LACTIC ####[facility] WBC (Bld) [#/Vol] 10.0 10*3/uL Normal 4.1-10.5 [facility] Comment on above: Performed By: #### C BC, BNP, CUBLD, BMP, HS TROP, CK, HEPATIC, LACTIC ####[facility] Creatine Kinaseon 05-09-2023 CK [Catalytic activity/Vol] 31 U/L Normal 30-223 [facility] Comment on above: Performed By: #### B MP #### [facility] [address] Creatine kinase [Enzymatic a ctivity/volume] in Serum or PlasmaOrdered By: Fransico Mendieta on 05-09-2023 CK [Catalytic activity/Vol] 31 U/L 30-223 [facility] Creatinine [Mass/volume] in Serum or PlasmaOrdered By: Fransico Mendieta on 05-09-2023 Creatinine [Mass/Vol] 4.81 mg/dL 0.70-1.30 [facility] ECG 12 lead ECGon 05-09-2023 ECG 12 lead ECG [facility] [address] [place] [address] [place] [address] Electrocardiograph Report Signed Patient: Ruddy Palmer MR#: [id number] 9 : 1985 Acct:[id number] Age/Sex: 37 / M ADM Date: 05/09/23 Loc: ER Room: Type: [facility] ER Attending Dr: Ordering Provider: Fransico Mendieta PA-C Date of Service: 05/09/2301/24/1601 ECG/ECG 12 lead ECG: Recheck/Abnormal Lab/Rx Copies to: Test Reason : Blood Pressure : / mmHG Vent. Rate : 074 BPM Atrial Rate : 074 BPM P-R Int : 176 ms QRS Dur : 094 ms QT Int : 346 ms P-R-T Axes : 083 085 084 degrees QTc Int : 384 ms Normal sinus rhythm ST elevation, consider early repolarization, pericarditis, or injury Nonspecific ST abnormality Abnormal ECG When compared with ECG of 28-APR-2023 13:07, No significant change was found Confirmed by Layton Becerra DO ([id number]) on 05/09/2023 6:51:23 PM Referred By: Electronically Signed By:Layton Becerra DO Transcribed By: MUS Signed By Layton Becerra DO 3 1851 Normal [facility] Eosinophils Auto (Bld) [#/Vo l]Ordered By: Fransico Mendieta on 05-09-2023 Eosinophils (Bld) [#/Vol] 0.1 10*3/uL 0.0-0.45 [facility] Eosinophils/100 WBC Auto (Bl d)Ordered By: Fransico Mendieta on 05-09-2023 Eosinophils/100 WBC (Bld) 1.2 % . [facility] Erythrocyte distribution wid th Auto (RBC) [Ratio]Ordered By: Fransico Mendieta on 05-09-2023 Erythrocyte distribution width (RBC) [Ratio] 14.7 % 12.0-14.8 [facility] Globulin Calc (S) [Mass/Vol] Ordered By: Fransico Mendieta on 05-09-2023 Globulin (S) [Mass/Vol] 2.1 g/dL [facility] Glucose [Mass/volume] in Ser um or PlasmaOrdered By: Fransico Mendieta on 05-09-2023 Glucose [Mass/Vol] 103 mg/dL 70-100 [facility] Comment on above: ADA recommended refe rence rangeRandom Glucose Reference Range is dependent on time and content of last meal. Glucose of more than 200 mg/dL in a nonstressed, ambulatory subject supports the diagnosis of Diabetes Mellitus. Hematocrit Auto (Bld) [Volum e fraction]Ordered By: Fransico Mendieta on 05-09-2023 Hematocrit (Bld) [Volume fraction] 24.3 % 38.8-50.0 [facility] Hemoglobin [Mass/volume] in BloodOrdered By: Fransico Mendieta on 05-09-2023 Hemoglobin (Bld) [Mass/Vol] 7.6 g/dL 13.0-17.0 [facility] Hepatic Panelon 05-09-2023 Albumin [Mass/Vol] 3.2 g/dL Low 3.5-5.7 [facility] Comment on above: Performed By: #### C BC, BNP, CUBLD, BMP, HS TROP, CK, HEPATIC, LACTIC ####[place] [address] Albumin/Globulin [Mass ratio] 1.5 {ratio} Normal [facility] Comment on above: Performed By: #### C BC, BNP, CUBLD, BMP, HS TROP, CK, HEPATIC, LACTIC ####[place] [id number] [facility] ALP [Catalytic activity/Vol] 79 U/L Normal 34-104 [facility] Comment on above: Performed By: #### C BC, BNP, CUBLD, BMP, HS TROP, CK, HEPATIC, LACTIC ####[place] [phone] [facility] ALT [Catalytic activity/Vol] 13 U/L Normal 7-52 [facility] Comment on above: Performed By: #### C BC, BNP, CUBLD, BMP, HS TROP, CK, HEPATIC, LACTIC ####[place] [phone] [facility] AST [Catalytic activity/Vol] 13 U/L Normal 13-39 [facility] Comment on above: Performed By: #### C BC, BNP, CUBLD, BMP, HS TROP, CK, HEPATIC, LACTIC ####[address] Bilirubin [Mass/Vol] 0.3 mg/dL Normal 0.3-1.0 [facility] Comment on above: Performed By: #### C BC, BNP, CUBLD, BMP, HS TROP, CK, HEPATIC, LACTIC ####[address] Bilirubin,Indirect 0.3 mg/dL Normal [facility] Comment on above: Performed By: #### C BC, BNP, CUBLD, BMP, HS TROP, CK, HEPATIC, LACTIC ####[address] Bilirubin.indirect [Mass/Vol] 0.00 mg/dL Low 0.03-0.18 [facility] Comment on above: Result Comment: If t he DBIL is less than 0.1, IBIL is not able to be calculated. Performed By: #### C BC, BNP, CUBLD, BMP, HS TROP, CK, HEPATIC, LACTIC ####[address] Globulin (S) [Mass/Vol] 2.1 g/dL Normal [facility] Comment on above: Performed By: #### C BC, BNP, CUBLD, BMP, HS TROP, CK, HEPATIC, LACTIC ####[address] Protein [Mass/Vol] 5.3 g/dL Low 6.4-8.9 [facility] Comment on above: Performed By: #### C BC, BNP, CUBLD, BMP, HS TROP, CK, HEPATIC, LACTIC ####[address] Lactate [Moles/volume] in Se rum or PlasmaOrdered By: Fransico Mendieta on 05-09-2023 Lactate [Moles/Vol] 0.4 mmol/L 0.5-2.2 [facility] Lactic Acidon 05-09-2023 Lactate [Moles/Vol] 0.4 mmol/L Normal 0.5-2.2 [facility] Comment on above: Result Comment: PERF ORMED BY: [facility] [address] [place] [address] PATHOLOGIST C.O.D. BILLER DI CORONEL M.D. Performed By: #### C BC, BNP, CUBLD, BMP, HS TROP, CK, HEPATIC, LACTIC ####[facility] [id number] [place] [address] [facility] LeukoReduced RBCon 3 LeukoReduced RBC TRANSFUSED 05/11/23 2146 Normal [facility] Leukocytes [#/volume] correc radha for nucleated erythrocytes in Blood by Automated counOrdered By: Fransico Mendieta on 05-09-2023 WBC corrected for nucl RBC Auto (Bld) [#/Vol] 10.0 10*3/uL 4.1-10.5 [facility] Lymphocytes Auto (Bld) [#/Vo l]Ordered By: Fransico Mendieta on 05-09-2023 Lymphocytes (Bld) [#/Vol] 1.3 10*3/uL 1.00-4.8 [facility] Lymphocytes/100 WBC Auto (Bl d)Ordered By: Fransico Mendieta on 05-09-2023 Lymphocytes/100 WBC (Bld) 13.3 % . [facility] MCH Auto (RBC) [Entitic mass ]Ordered By: Fransico Mendieta on 05-09-2023 MCH (RBC) [Entitic mass] 30.1 pg 27.5-35.2 [facility] MCHC Auto (RBC) [Mass/Vol]Or dered By: Fransico Mendieta on 05-09-2023 MCHC (RBC) [Mass/Vol] 31.4 g/dL 32.5-35.6 [facility] MCV Auto (RBC) [Entitic vol] Ordered By: Fransico Mendieta on 05-09-2023 MCV (RBC) [Entitic vol] 95.9 fL 83.5-101 [facility] Monocyte distribution width [Entitic volume] in Blood by AutomatedOrdered By: Fransico Mendieta on 05-09-2023 Monocyte distribution width Auto (Bld) [Entitic vol] 18.33 % 0.00-20.00 [facility] Monocytes Auto (Bld) [#/Vol] Ordered By: Fransico Mendieta on 05-09-2023 Monocytes (Bld) [#/Vol] 1.1 10*3/uL 0.0-0.8 [facility] Monocytes/100 WBC Auto (Bld) Ordered By: Fransico Mendieta on 05-09-2023 Monocytes/100 WBC (Bld) 10.8 % . [facility] Natriuretic peptide B [Mass/ Vol]Ordered By: Fransico Mendieta on 05-09-2023 Natriuretic peptide B (Bld) [Mass/Vol] 787.0 pg/mL 5-100 [facility] Neutrophils Auto (Bld) [#/Vo l]Ordered By: Fransico Mendieta on 05-09-2023 Neutrophils (Bld) [#/Vol] 7.5 10*3/uL 1.8-7.7 [facility] Neutrophils/100 WBC Auto (Bl d)Ordered By: Fransico Mendieta on 05-09-2023 Neutrophils/100 WBC (Bld) 74.5 % . [facility] No Panel InformationOrdered By: Fransico Mendieta on 05-09-2023 Estimated GFR (CKD-EPI) 15.003 mL/Min [facility] Creatinine Clearance (Chem 19.82 [facility] Nucleated erythrocytes [Pres ence] in Blood by Automated countOrdered By: Fransico Mendieta on 05-09-2023 Nucleated RBC Auto Ql (Bld) 0.1 /100{WBC} 0-0.5 [facility] Platelet mean volume Auto (B ld) [Entitic vol]Ordered By: Fransico Mendieta on 05-09-2023 Platelet mean volume (Bld) [Entitic vol] 7.4 fL 6.6-10.1 [facility] Platelets Auto (Bld) [#/Vol] Ordered By: Fransico Mendieta on 05-09-2023 Platelets (Bld) [#/Vol] 362 10*3/uL 150-450 [facility] Potassium [Moles/volume] in Serum or PlasmaOrdered By: Fransico Mendieta on 05-09-2023 Potassium [Moles/Vol] 4.8 mmol/L 3.5-5.1 [facility] Protein [Mass/volume] in Ser um or PlasmaOrdered By: Fransico Mendieta on 05-09-2023 Protein [Mass/Vol] 5.3 g/dL 6.4-8.9 [facility] RBC Auto (Bld) [#/Vol]Ordere d By: Fransico Mendieta on 05-09-2023 RBC (Bld) [#/Vol] 2.53 10*6/uL 3.90-5.60 [facility] Serum or plasma albumin/glob ulin mass ratioOrdered By: Fransico Mendieta on 05-09-2023 Albumin/Globulin [Mass ratio] 1.5 {ratio} [facility] Serum or plasma anion gap de terminationOrdered By: Fransico Mendieta on 05-09-2023 Anion gap [Moles/Vol] 11.0 mmol/L 6.0-15.0 [facility] Serum or plasma non-glucuron idated bilirubin measurement (mass/volume)Ordered By: Fransico Mendieta on 05-09-2023 Bilirubin.indirect [Mass/Vol] 0.3 mg/dL [facility] Sodium [Moles/volume] in Ser um or PlasmaOrdered By: Fransico Mendieta on 05-09-2023 Sodium [Moles/Vol] 129 mmol/L 136-145 [facility] Troponin I High Sensitivityo n 05-09-2023 Troponin I High Sensitivity 7.5 pg/mL Normal 0.0-20.0 [facility] Comment on above: Result Comment: PERF ORMED BY: [place] [address] PATHOLOGIST C.O.D. BILLER DI CORONEL M.D. Performed By: #### B MP #### [address] Troponin I.cardiac [Mass/vol ume] in Serum or Plasma by Detection limit <= 0.01 ng/Ordered By: Fransico Mendieta on 05-09-2023 Troponin I.cardiac DL <= 0.01 ng/mL [Mass/Vol] 7.5 pg/mL 0.0-20.0 [facility] Type and Screenon 05-09-2023 ABO and Rh group Nom (Bld) Blood group A Rh(D) positive Normal [facility] Comment on above: Order Comment: Trans fuse now? Y Number of units to transfuse now? 1 Transfuse now? Y Number of units to transfuse now? 2 Result Comment: PERF ORMED BY: [address] [address] PATHOLOGIST C.O.D. BILLER DI CORONEL M.D. Urea nitrogen [Mass/volume] in Serum or PlasmaOrdered By: Fransico Mendieta on 05-09-2023 Urea nitrogen [Mass/Vol] 64 mg/dL 03-28 [facility] WBC Auto (Bld) [#/Vol]Ordere d By: Fransico Mendieta on 05-09-2023 WBC (Bld) [#/Vol] 10.0 10*3/uL 4.1-10.5 [facility] XR chest 1V portableon 05-09 XR chest 1V portable [facility] Main [address] [address] XRay Report Signed Patient: Ruddy Palmer MR#: [id number] 9 : 1985 Acct:[id number] Age/Sex: 37 / M ADM Date: 05/09/23 Loc: ER Room: Type: [facility] ER Attending Dr: Copies to: Fransico Mendieta PA-C Ordering Provider: Fransico Mendieta PA-C Date of Service: 05/09/23 XR/XR chest 1V portable: Recheck/Abnormal Lab/Rx SINGLE VIEW CHEST CLINICAL HISTORY: Discharge Monday with sepsis and pneumonia. Increased fatigue and body swelling. COMPARISON: Chest 05/03/2023 FINDINGS: Right-sided PICC line is identified tip in the SVC. Heart appears normal in size. Prominent interstitial changes, similar to the prior study. No consolidation pneumothorax pleural effusion or free air. XR/XR chest 1V portable IMPRESSION: NO ACUTE FINDINGS. Impression dictated by: Maurilio Art Jr., D.OIsidra05/09/2023 5:15 PM Dictation Location: [place] [address] Transcribed By: [facility] 05/09/23 1715 Dictated By: Maurilio Art Jr, DO 05/09/23 1712 Signed By: 05/09/23 1715 Normal [facility] Alanine aminotransferase [En zymatic activity/volume] in Serum or PlasmaOrdered By: Ceferino Godinez on 05-07-2023 ALT [Catalytic activity/Vol] 15 U/L 7-52 [facility] Albumin [Mass/volume] in Ser um or Plasma by Bromocresol green (BCG) dye binding methoOrdered By: Ceferino Godinez on 05-07-2023 Albumin BCG dye [Mass/Vol] 3.2 g/dL 3.5-5.7 [facility] Alkaline phosphatase [Enzyma tic activity/volume] in Serum or PlasmaOrdered By: Ceferino Godinez on 05-07-2023 ALP [Catalytic activity/Vol] 102 U/L 34-104 [facility] Aspartate aminotransferase [ Enzymatic activity/volume] in Serum or PlasmaOrdered By: Ceferino Godinez on 05-07-2023 AST [Catalytic activity/Vol] 10 U/L 13-39 [facility] Automated basophil %Ordered By: Ceferino Godinez on 05-07-2023 Basophils/100 WBC (Bld) 0.3 % Normal . [facility] Comment on above: Performed By: #### C MP, CBC ####[facility] [id number] Automated basophil countOrde red By: Ceferino Godinez on 05-07-2023 Basophils (Bld) [#/Vol] 0.0 10*3/uL Normal 0.0-0.2 [facility] Comment on above: Result Comment: PERF ORMED BY: [facility] [address] [place] [address] PATHOLOGIST C.O.D. BILLER DI CORONEL M.D. Performed By: #### C MP, CBC ####[facility] [place] [id number] [facility] Automated blood monocyte cou ntOrdered By: Ceferino Godinez on 05-07-2023 Monocytes (Bld) [#/Vol] 0.2 10*3/uL Normal 0.0-0.8 [facility] Comment on above: Performed By: #### C MP, CBC ####[address] Automated eosinophil %Ordere d By: Ceferino Herbert on 05-07-2023 Eosinophils/100 WBC (Bld) 0.1 % Normal . [facility] Comment on above: Performed By: #### C MP, CBC ####[address] Automated eosinophil countOr dered By: Ceferino Herbert on 05-07-2023 Eosinophils (Bld) [#/Vol] 0.0 10*3/uL Normal 0.0-0.45 [facility] Comment on above: Performed By: #### C MP, CBC ####[address] Automated monocyte %Ordered By: Ceferinocleo Godinez on 05-07-2023 Monocytes/100 WBC (Bld) 1.6 % Normal . [facility] Comment on above: Performed By: #### C MP, CBC ####[address] Automated neutrophil %Ordere d By: Ceferino Herbert on 05-07-2023 Neutrophils/100 WBC (Bld) 93.1 % Normal . [facility] Comment on above: Performed By: #### C MP, CBC ####[address] Bilirubin.total [Mass/volume ] in Serum or PlasmaOrdered By: Ceferino Herbert on 05-07-2023 Bilirubin [Mass/Vol] 0.3 mg/dL 0.3-1.0 [facility] Calcium [Mass/volume] in Ser um or PlasmaOrdered By: Ceferino Herbert on 05-07-2023 Calcium [Mass/Vol] 8.1 mg/dL 8.6-10.3 [facility] Carbon dioxide, total [Moles /volume] in Serum or PlasmaOrdered By: Ceferino Herbert on 05-07-2023 CO2 [Moles/Vol] 25.2 mmol/L 21.0-31.0 [facility] Chloride [Moles/volume] in [place] or PlasmaOrdered By: Ceferino Godinez on 05-07-2023 Chloride [Moles/Vol] 97 mmol/L 98-107 [facility] Complete Blood Count Auto Di ffon 05-07-2023 Mean Corpuscular HGB Conc 32.4 g/dL Low 32.5-35.6 [facility] Comment on above: Performed By: #### C MP, CBC ####[facility] [id number] [place] [address] [facility] NRBC% 0.1 /100{WBC} Normal 0-0.5 [facility] Comment on above: Performed By: #### C MP, CBC ####[facility] [id number] [place] [address] [facility] Comprehensive Metabolic Pane clara 05-07-2023 Albumin [Mass/Vol] 3.2 g/dL Low 3.5-5.7 [facility] Comment on above: Performed By: #### C MP, CBC ####[address] [address] [facility] Albumin/Globulin [Mass ratio] 1.2 {ratio} Normal [facility] Comment on above: Performed By: #### C MP, CBC ####[address] [address] [facility] ALP [Catalytic activity/Vol] 102 U/L Normal 34-104 [facility] Comment on above: Performed By: #### C MP, CBC ####[facility] [id number] [place] [address] [facility] ALT [Catalytic activity/Vol] 15 U/L Normal 7-52 [facility] Comment on above: Performed By: #### C MP, CBC ####[address] [address] [facility] Anion gap [Moles/Vol] 12.5 mmol/L Normal 6.0-15.0 [facility] Comment on above: Performed By: #### C MP, CBC ####[facility] [address] [place] [address] [facility] AST [Catalytic activity/Vol] 10 U/L Low 13-39 [facility] Comment on above: Performed By: #### C MP, CBC ####[facility] [place] [address] [facility] Bilirubin [Mass/Vol] 0.3 mg/dL Normal 0.3-1.0 [facility] Comment on above: Performed By: #### C MP, CBC ####[facility] [id number] [place] [address] [facility] Calcium [Mass/Vol] 8.1 mg/dL Low 8.6-10.3 [facility] Comment on above: Performed By: #### C MP, CBC ####[place] [address] [place] [address] [facility] Chloride [Moles/Vol] 97 mmol/L Low 98-107 [facility] Comment on above: Performed By: #### C MP, CBC ####[place] [address] [place] [address] [facility] CO2 [Moles/Vol] 25.2 mmol/L Normal 21.0-31.0 [facility] Comment on above: Performed By: #### C MP, CBC ####[place] [address] [place] [address] [facility] Creatinine [Mass/Vol] 5.94 mg/dL Significan t change up 0.70-1.30 [facility] Comment on above: Performed By: #### C MP, CBC ####[place] [address] [place] [address] [facility] Creatinine Clr Calc Pharmacy 13.95 Normal [facility] Comment on above: Result Comment: PERF ORMED BY: [facility] [address] [place] [id number] PATHOLOGIST C.O.D. BILLER ID CORONEL M.D. Performed By: #### C MP, CBC ####[place] [address] [place] [address] [facility] GFR/1.73 sq M.predicted MDRD (S/P/Bld) [Vol rate/Area] 11.646 mL/min/{1.73_m2} Normal [facility] Comment on above: Performed By: #### C MP, CBC ####[place] [address] [place] [id number] [facility] Globulin (S) [Mass/Vol] 2.6 g/dL Normal [facility] Comment on above: Performed By: #### C MP, CBC ####[place] [id number] [facility] Glucose [Mass/Vol] 118 mg/dL High 70-100 [facility] Comment on above: Result Comment: [facility] Glucose Reference Range is dependent on time and content of last meal. Glucose of more than 200 mg/dL in a nonstressed, ambulatory subject supports the diagnosis of Diabetes Mellitus. ADA recommended reference range Performed By: #### C MP, CBC ####[place] [id number] [facility] Potassium [Moles/Vol] 4.7 mmol/L Normal 3.5-5.1 [facility] Comment on above: Performed By: #### C MP, CBC ####[place] [id number] [facility] Protein [Mass/Vol] 5.8 g/dL Low 6.4-8.9 [facility] Comment on above: Performed By: #### C MP, CBC ####[place] [id number] [facility] Sodium [Moles/Vol] 130 mmol/L Low 136-145 [facility] Comment on above: Performed By: #### C MP, CBC ####[place] [id number] [facility] Urea nitrogen [Mass/Vol] 82 mg/dL Significant change up 03-28 [facility] Comment on above: Performed By: #### C MP, CBC ####[place] [id number] [facility] Creatinine [Mass/volume] in Serum or PlasmaOrdered By: Ceferino Godinez on 05-07-2023 Creatinine [Mass/Vol] 5.94 mg/dL 0.70-1.30 [facility] Comment on above: Delta: 4.58 on 05/06 Erythrocyte distribution wid th [Ratio] by Automated countOrdered By: Ceferino Godinez on 05-07-2023 Erythrocyte distribution width (RBC) [Ratio] 14.5 % Normal 12.0-14.8 [facility] Comment on above: Performed By: #### C MP, CBC ####[facility] [address] [place] [id number] [facility] Erythrocytes [#/volume] in B lood by Automated countOrdered By: Ceferino Godinez on 05-07-2023 RBC (Bld) [#/Vol] 2.59 10*6/uL Low 3.90-5.60 [facility] Comment on above: Performed By: #### C MP, CBC ####[place] [address] [place] [id number] [facility] Globulin Calc (S) [Mass/Vol] Ordered By: Ceferino Godinez on 05-07-2023 Globulin (S) [Mass/Vol] 2.6 g/dL [facility] Glucose [Mass/volume] in Ser um or PlasmaOrdered By: Ceferino Godinez on 05-07-2023 Glucose [Mass/Vol] 118 mg/dL 70-100 [facility] Comment on above: ADA recommended refe rence rangeRandom Glucose Reference Range is dependent on time and content of last meal. Glucose of more than 200 mg/dL in a nonstressed, ambulatory subject supports the diagnosis of Diabetes Mellitus. Hematocrit [Volume Fraction] of Blood by Automated countOrdered By: Ceferino Godinez on 05-07-2023 Hematocrit (Bld) [Volume fraction] 24.2 % Low 38.8-50.0 [facility] Comment on above: Performed By: #### C MP, CBC ####[facility] [address] [place] [address] [facility] Hemoglobin [Mass/volume] in BloodOrdered By: Ceferino Godinez on 05-07-2023 Hemoglobin (Bld) [Mass/Vol] 7.9 g/dL Low 13.0-17.0 [facility] Comment on above: Performed By: #### C MP, CBC ####[address] Leukocytes [#/volume] correc radha for nucleated erythrocytes in Blood by Automated counOrdered By: Ceferino Herbert on 05-07-2023 WBC corrected for nucl RBC Auto (Bld) [#/Vol] 9.2 10*3/uL 4.1-10.5 [facility] Leukocytes [#/volume] in Blo od by Automated countOrdered By: Ceferino Herbert on 05-07-2023 WBC (Bld) [#/Vol] 9.2 10*3/uL Normal 4.1-10.5 [facility] Comment on above: Performed By: #### C MP, CBC ####[address] Lymphocytes [#/volume] in Bl ood by Automated countOrdered By: Ceferino Herbert on 05-07-2023 Lymphocytes (Bld) [#/Vol] 0.5 10*3/uL Low 1.00-4.8 [facility] Comment on above: Performed By: #### C MP, CBC ####[address] Lymphocytes/100 leukocytes i n Blood by Automated countOrdered By: Ceferinosarah Godinez on 05-07-2023 Lymphocytes/100 WBC (Bld) 4.9 % Normal . [facility] Comment on above: Performed By: #### C MP, CBC ####[place] [id number] [facility] MCH [Entitic mass] by Automa radha countOrdered By: Ceferino Herbert on 05-07-2023 MCH (RBC) [Entitic mass] 30.3 pg Normal 27.5-35.2 [facility] Comment on above: Performed By: #### C MP, CBC ####[address] [address] [facility] MCHC Auto (RBC) [Mass/Vol]Or dered By: Ceferino Herbert on 05-07-2023 MCHC (RBC) [Mass/Vol] 32.4 g/dL 32.5-35.6 [facility] MCV [Entitic volume] by Auto mated countOrdered By: Ceferino Herbert on 05-07-2023 MCV (RBC) [Entitic vol] 93.6 fL Normal 83.5-101 [facility] Comment on above: Performed By: #### C MP, CBC ####[address] Neutrophils [#/volume] in Bl ood by Automated countOrdered By: Ceferino Godinez on 05-07-2023 Neutrophils (Bld) [#/Vol] 8.6 10*3/uL High 1.8-7.7 [facility] Comment on above: Performed By: #### C MP, CBC ####[address] No Panel InformationOrdered By: Ceferinosarah Godinez on 05-07-2023 Estimated GFR (CKD-EPI) 11.646 mL/Min [facility] Creatinine Clearance (Chem 13.95 [facility] Nucleated erythrocytes [Pres ence] in Blood by Automated countOrdered By: Ceferino Herbert on 05-07-2023 Nucleated RBC Auto Ql (Bld) 0.1 /100{WBC} 0-0.5 [facility] Platelet mean volume [Entiti c volume] in Blood by Automated countOrdered By: Ceferino Herbert on 05-07-2023 Platelet mean volume (Bld) [Entitic vol] 7.9 fL Normal 6.6-10.1 [facility] Comment on above: Performed By: #### C MP, CBC ####[address] Platelets [#/volume] in Bloo d by Automated countOrdered By: Ceferino Godinez on 05-07-2023 Platelets (Bld) [#/Vol] 306 10*3/uL Normal 150-450 [facility] Comment on above: Performed By: #### C MP, CBC ####[facility] G[address] Potassium [Moles/volume] in Serum or PlasmaOrdered By: Ceferino Herbert on 05-07-2023 Potassium [Moles/Vol] 4.7 mmol/L 3.5-5.1 [facility] Protein [Mass/volume] in Ser um or PlasmaOrdered By: Ceferino Herbert on 05-07-2023 Protein [Mass/Vol] 5.8 g/dL 6.4-8.9 [facility] Serum or plasma albumin/glob ulin mass ratioOrdered By: Ceferino Herbert on 05-07-2023 Albumin/Globulin [Mass ratio] 1.2 {ratio} [facility] Serum or plasma anion gap de terminationOrdered By: Ceferino Herbert on 05-07-2023 Anion gap [Moles/Vol] 12.5 mmol/L 6.0-15.0 [facility] Sodium [Moles/volume] in Ser um or PlasmaOrdered By: Ceferino Herbert on 05-07-2023 Sodium [Moles/Vol] 130 mmol/L 136-145 [facility] Urea nitrogen [Mass/volume] in Serum or PlasmaOrdered By: Ceferino Herbert on 05-07-2023 Urea nitrogen [Mass/Vol] 82 mg/dL 7-25 [facility] Comment on above: Delta: 36 on [phone] Basic Metabolic Panelon Anion gap [Moles/Vol] 13.1 mmol/L Normal 6.0-15.0 [facility] Comment on above: Performed By: #### C BC, BMP #### [facility] [address] [place] [id number] [facility] Calcium [Mass/Vol] 8.4 mg/dL Low 8.6-10.3 [facility] Comment on above: Performed By: #### C BC, BMP #### [facility] [address] Chloride [Moles/Vol] 96 mmol/L Low 98-107 [facility] Comment on above: Performed By: #### C BC, BMP #### [address] CO2 [Moles/Vol] 26.6 mmol/L Normal 21.0-31.0 [facility] Comment on above: Performed By: #### C BC, BMP #### [address] Creatinine [Mass/Vol] 4.58 mg/dL Significan t change up 0.70-1.30 [facility] Comment on above: Performed By: #### C BC, BMP #### [address] Creatinine Clr Calc Pharmacy 18.81 [facility] Comment on above: Result Comment: PERF ORMED BY: [place] [address] PATHOLOGIST C.O.D. BILLER DI CORONEL M.D. Performed By: #### C BC, BMP #### [address] GFR/1.73 sq M.predicted MDRD (S/P/Bld) [Vol rate/Area] 15.911 mL/min/{1.73_m2} [facility] Comment on above: Performed By: #### C BC, BMP #### [address] Glucose [Mass/Vol] 140 mg/dL High 70-100 [facility] Comment on above: Result Comment: [place] Glucose Reference Range is dependent on time and content of last meal. Glucose of more than 200 mg/dL in a nonstressed, ambulatory subject supports the diagnosis of Diabetes Mellitus. ADA recommended reference range Performed By: #### C BC, BMP #### [address] Potassium [Moles/Vol] 4.7 mmol/L Normal 3.5-5.1 [facility] Comment on above: Performed By: #### C BC, BMP #### [address] Sodium [Moles/Vol] 131 mmol/L Low 136-145 [facility] Comment on above: Performed By: #### C BC, BMP #### [facility] [address] Urea nitrogen [Mass/Vol] 36 mg/dL High 7-25 [facility] Comment on above: Performed By: #### C BC, BMP #### [address] Complete Blood Count Auto Di ffon 05-06-2023 Basophils (Bld) [#/Vol] 0.0 10*3/uL Normal 0.0-0.2 [facility] Comment on above: Result Comment: PERF ORMED BY: [place] [address] PATHOLOGIST C.O.D. BILLER DI CORONEL M.D. Performed By: #### C BC, BMP #### [address] Basophils/100 WBC (Bld) 0.1 % Normal . [facility] Comment on above: Performed By: #### C BC, BMP #### [address] Eosinophils (Bld) [#/Vol] 0.0 10*3/uL Normal 0.0-0.45 [facility] Comment on above: Performed By: #### C BC, BMP #### [address] Eosinophils/100 WBC (Bld) 0.1 % Normal . [facility] Comment on above: Performed By: #### C BC, BMP #### [address] Erythrocyte distribution width (RBC) [Ratio] 14.4 % Normal 12.0-14.8 [facility] Comment on above: Performed By: #### C BC, BMP #### [address] Hematocrit (Bld) [Volume fraction] 27.1 % Low 38.8-50.0 [facility] Comment on above: Performed By: #### C BC, BMP #### [address] Hemoglobin (Bld) [Mass/Vol] 8.8 g/dL Low 13.0-17.0 [facility] Comment on above: Performed By: #### C BC, BMP #### [address] Lymphocytes (Bld) [#/Vol] 0.3 10*3/uL Low 1.00-4.8 [facility] Comment on above: Performed By: #### C BC, BMP #### [address] Lymphocytes/100 WBC (Bld) 3.9 % Normal . [facility] Comment on above: Performed By: #### C BC, BMP #### [address] MCH (RBC) [Entitic mass] 30.6 pg Normal 27.5-35.2 [facility] Comment on above: Performed By: #### C BC, BMP #### [address] MCV (RBC) [Entitic vol] 94.0 fL Normal 83.5-101 [facility] Comment on above: Performed By: #### C BC, BMP #### [address] Mean Corpuscular HGB Conc 32.6 g/dL Normal 32.5-35.6 [facility] Comment on above: Performed By: #### C BC, BMP #### [address] Monocytes (Bld) [#/Vol] 0.0 10*3/uL Normal 0.0-0.8 [facility] Comment on above: Performed By: #### C BC, BMP #### [address] [place] [address] [place] Monocytes/100 WBC (Bld) 0.7 % Normal . [facility] Comment on above: Performed By: #### C BC, BMP #### [facility] [address] Neutrophils (Bld) [#/Vol] 6.5 10*3/uL Normal 1.8-7.7 [facility] Comment on above: Performed By: #### C BC, BMP #### [facility] [address] Neutrophils/100 WBC (Bld) 95.2 % Normal . [facility] Comment on above: Performed By: #### C BC, BMP #### [facility] [address] NRBC% 0.1 /100{WBC} Normal 0-0.5 [facility] Comment on above: Performed By: #### C BC, BMP #### [facility] [address] Platelet mean volume (Bld) [Entitic vol] 7.9 fL Normal 6.6-10.1 [facility] Comment on above: Performed By: #### C BC, BMP #### [address] Platelets (Bld) [#/Vol] 223 10*3/uL Normal 150-450 [facility] Comment on above: Performed By: #### C BC, BMP #### [facility] [address] [address] RBC (Bld) [#/Vol] 2.88 10*6/uL Low 3.90-5.60 [facility] Comment on above: Performed By: #### C BC, BMP #### [facility] [address] WBC (Bld) [#/Vol] 6.8 10*3/uL Normal 4.1-10.5 [facility] Comment on above: Performed By: #### C BC, BMP #### [facility] [address] ABO/Rh Retypeon 05-05-2023 ABO/RH Recheck Result Positive Normal Fir [facility] Comment on above: Result Comment: PERF ORMED BY: [facility] [address] [place] [address] PATHOLOGIST C.O.D. BILLER DI CORONEL M.D. Band form neutrophils/100 WB C Manual cnt (Bld)Ordered By: Jessica Macdonald on 05-05-2023 Band form neutrophils/100 WBC (Bld) 1 % 0-5 [facility] Basophils/100 WBC Manual cnt (Bld)Ordered By: Jessica Macdonald on 05-05-2023 Basophils/100 WBC (Bld) 1 % 0-2 [facility] Diff and CBCon 05-05-2023 Band form neutrophils/100 WBC (Bld) 1 % Normal 0-5 [facility] Comment on above: Performed By: #### D IFF CBC ####[address] Basophils/100 WBC (Bld) 1 % Normal 0-2 [facility] Comment on above: Performed By: #### D IFF CBC ####[address] Eosinophils/100 WBC (Bld) 8 % High 1-3 [facility] Comment on above: Performed By: #### D IFF CBC ####[address] Erythrocyte distribution width (RBC) [Ratio] 13.6 % Normal 12.0-14.8 [facility] Comment on above: Performed By: #### D IFF CBC ####[address] Hematocrit (Bld) [Volume fraction] 22.4 % Low 38.8-50.0 [facility] Comment on above: Performed By: #### D IFF CBC ####[address] Hemoglobin (Bld) [Mass/Vol] 7.0 g/dL Low 13.0-17.0 [facility] Comment on above: Performed By: #### D IFF CBC ####[place] [address] [place] [address] [facility] Hypochromasia Moderate Normal [facility] Comment on above: Performed By: #### D IFF CBC ####[address] [address] [facility] Lymphocytes/100 WBC (Bld) 11 % Low 18-42 [facility] Comment on above: Performed By: #### D IFF CBC ####[address] [address] [facility] MCH (RBC) [Entitic mass] 30.1 pg Normal 27.5-35.2 [facility] Comment on above: Performed By: #### D IFF CBC ####[address] [address] [facility] MCV (RBC) [Entitic vol] 95.8 fL Normal 83.5-101 [facility] Comment on above: Performed By: #### D IFF CBC ####[address] [address] [facility] Mean Corpuscular HGB Conc 31.4 g/dL Low 32.5-35.6 [facility] Comment on above: Performed By: #### D IFF CBC ####[address] [address] [facility] Metamyelocytes 2 % High 0-0 [facility] Comment on above: Performed By: #### D IFF CBC ####[address] [address] [facility] Monocytes/100 WBC (Bld) 5 % Normal 2-11 [facility] Comment on above: Performed By: #### D IFF CBC ####[address] [address] [facility] Myelocytes 1 % High 0-0 [facility] Comment on above: Performed By: #### D IFF CBC ####[place] [id number] [facility] Platelet Estimate Normal Normal Normal [facility] Comment on above: Performed By: #### D IFF CBC ####[address] [place] [address] [facility] Platelet mean volume (Bld) [Entitic vol] 7.9 fL Normal 6.6-10.1 [facility] Comment on above: Performed By: #### D IFF CBC ####[address] [address] [facility] Platelet Morphology Normal Normal Normal [facility] Comment on above: Result Comment: PERF ORMED BY: [facility] [address] [place] [id number] PATHOLOGIST C.O.D. BILLER DI CORONEL M.D. Performed By: #### D IFF CBC ####[address] [address] [facility] Platelets (Bld) [#/Vol] 178 10*3/uL Normal 150-450 [facility] Comment on above: Performed By: #### D IFF CBC ####[address] [place] [address] [facility] RBC (Bld) [#/Vol] 2.34 10*6/uL Low 3.90-5.60 [facility] Comment on above: Performed By: #### D IFF CBC ####[address] [address] [facility] Segmented neutrophils/100 WBC (Bld) 71 % High 50-70 [facility] Comment on above: Performed By: #### D IFF CBC ####[address] [place] [address] [facility] Stomatocytes Moderate Normal [facility] Comment on above: Performed By: #### D IFF CBC ####[address] [address] [facility] WBC (Bld) [#/Vol] 10.2 10*3/uL Normal 4.1-10.5 [facility] Comment on above: Performed By: #### D IFF CBC ####[place] [address] [place] [address] [facility] Eosinophils/100 WBC Manual c nt (Bld)Ordered By: Jessica Macdonald on 05-05-2023 Eosinophils/100 WBC (Bld) 8 % 1-3 [facility] Ferritinon 05-05-2023 Ferritin [Mass/Vol] 1147.6 ng/mL High 23.9-336.2 [facility] Comment on above: Performed By: #### V [id number], FE and TIBC, DHRUV ####[facility] [id number] [place] [address] [facility] Ferritin [Mass/volume] in Se rum or PlasmaOrdered By: Jessica Macdonald on 05-05-2023 Ferritin [Mass/Vol] 1147.6 ng/mL 23.9-336.2 [facility] Folate [Mass/volume] in Seru m or PlasmaOrdered By: Jessica Macdonald on 05-05-2023 Folate [Mass/Vol] 36.0 ng/mL >5.9 [facility] Comment on above: Folate reference ran ge: >5.9 ng/mlThe WHO technical consultation on folate and vitamin [id number] has determined that folate concentrations lessthan 4 ng/ml are considered deficient. Hypochromia LM Ql (Bld)Order ed By: Jessica Macdonald on 05-05-2023 Hypochromia Ql (Bld) Moderate [facility] Iron [Mass/volume] in Serum or PlasmaOrdered By: Jessica Macdonald on 05-05-2023 Iron [Mass/Vol] 39 ug/dL 50-212 [facility] Iron and TIBC Profileon % Iron Saturation 20.0 % Normal 20-50 [facility] Comment on above: Performed By: #### V [id number], FE and TIBC, DHRUV ####[facility] [id number] [place] [address] [facility] Iron [Mass/Vol] 39 ug/dL Low 50-212 [facility] Comment on above: Performed By: #### V [id number], FE and TIBC, DHRUV ####[facility] [address]ns[address] [place] [address] [facility] Total Iron Binding Capacity 195 ug/dL Low 255-450 [facility] Comment on above: Performed By: #### V [id number], FE and TIBC, DHRUV ####[facility] [address] [place] [address] [facility] Transferrin [Mass/Vol] 139 mg/dL Low 203-362 [facility] Comment on above: Performed By: #### V [id number], FE and TIBC, DHRUV ####[facility] Hmu[address]19 [place] [address] [facility] Iron binding capacity [Mass/ volume] in Serum or PlasmaOrdered By: Jessica Macdonald on 05-05-2023 Iron binding capacity [Mass/Vol] 195 ug/dL 255-450 [facility] Iron saturation [Mass Fracti on] in Serum or PlasmaOrdered By: Jessica Macdonald on 05-05-2023 Iron saturation [Mass fraction] 20.0 % 20-50 [facility] LeukoReduced RBCon 3 LeukoReduced RBC TRANSFUSED 05/05/23 1512 Normal [facility] Lymphocytes/100 WBC Manual c nt (Bld)Ordered By: Jessica Macdonald on 05-05-2023 Lymphocytes/100 WBC (Bld) 11 % 18-42 [facility] Metamyelocytes/100 WBC Manua l cnt (Bld)Ordered By: Jessica Macdonald on 05-05-2023 Metamyelocytes/100 WBC (Bld) 2 % 0-0 [facility] Monocytes/100 WBC Manual cnt (Bld)Ordered By: Jessica Macdonald on 05-05-2023 Monocytes/100 WBC (Bld) 5 % 2-11 [facility] Myelocytes/100 WBC Manual cn t (Bld)Ordered By: Jessica Macdonald on 05-05-2023 Myelocytes/100 WBC (Bld) 1 % 0-0 [facility] Phosphate [Mass/volume] in S adolph or PlasmaOrdered By: Jessica Macdonald on 05-05-2023 Phosphate [Mass/Vol] 5.8 mg/dL 3.7-7.2 [facility] Platelet adequacy [Presence] in Blood by Light microscopyOrdered By: Jessica Macdonald on 05-05-2023 Platelets LM Ql (Bld) Normal Normal [facility] Platelet morphology finding [Identifier] in BloodOrdered By: Jessica Macdonald on 05-05-2023 Platelet morphology finding Nom (Bld) Normal Normal [facility] RBC morphologyOrdered By: Susan Macdonald on 05-05-2023 RBC morphology finding Nom (Bld) N/A [facility] Red blood cell stomatocyte d etectionOrdered By: Jessica Macdonald on 05-05-2023 Stomatocytes LM Ql (Bld) Moderate [facility] Renal Function Panelon 05-05 Albumin [Mass/Vol] 3.1 g/dL Low 3.5-5.7 [facility] Comment on above: Performed By: #### B MP, MG #### [facility] [address] Anion gap [Moles/Vol] 14.7 mmol/L Normal 6.0-15.0 [facility] Comment on above: Performed By: #### B MP, MG #### [facility] [address] [place] [address] [place] Calcium [Mass/Vol] 7.3 mg/dL Low 8.6-10.3 [facility] Comment on above: Performed By: #### B MP, MG #### [facility] [address] [place] [id number] [place] Chloride [Moles/Vol] 96 mmol/L Low 98-107 [facility] Comment on above: Performed By: #### B MP, MG #### [facility] [address] [place] [address] [place] CO2 [Moles/Vol] 27.0 mmol/L Normal 21.0-31.0 [facility] Comment on above: Performed By: #### B MP, MG #### [facility] [address] [place] [id number] [place] Creatinine [Mass/Vol] 6.65 mg/dL High 0.70-1.30 [facility] Comment on above: Performed By: #### B MP, MG #### [place] [address] [place] Creatinine Clr Calc Pharmacy 13.40 Normal [facility] Comment on above: Result Comment: PERF ORMED BY: [place] [address] PATHOLOGIST C.O.D. BILLER DI CORONEL M.D. Performed By: #### B MP, MG #### [place] [address] [place] GFR/1.73 sq M.predicted MDRD (S/P/Bld) [Vol rate/Area] 10.171 mL/min/{1.73_m2} Normal [facility] Comment on above: Performed By: #### B MP, MG #### [address] Glucose [Mass/Vol] 96 mg/dL Normal 70-100 [facility] Comment on above: Result Comment: [facility] Glucose Reference Range is dependent on time and content of last meal. Glucose of more than 200 mg/dL in a nonstressed, ambulatory subject supports the diagnosis of Diabetes Mellitus. ADA recommended reference range Performed By: #### B MP, MG #### [place] [address] [place] Phosphate [Mass/Vol] 5.8 mg/dL Normal 3.7-7.2 [facility] Comment on above: Performed By: #### B MP, MG #### [place] [address] [place] Potassium [Moles/Vol] 3.7 mmol/L Normal 3.5-5.1 [facility] Comment on above: Performed By: #### B MP, MG #### [place] [address] [place] Sodium [Moles/Vol] 134 mmol/L Low 136-145 [facility] Comment on above: Performed By: #### B MP, MG #### [place] [address] [place] Urea nitrogen [Mass/Vol] 53 mg/dL High 7-25 [facility] Comment on above: Performed By: #### B MP, MG #### [facility] [address] Segmented neutrophils/100 WB C Manual cnt (Bld)Ordered By: Jessica Macdonald on 05-05-2023 Segmented neutrophils/100 WBC (Bld) 71 % 50-70 [facility] Transferrin [Mass/volume] in Serum or PlasmaOrdered By: Jessica Macdonald on 05-05-2023 Transferrin [Mass/Vol] 139 mg/dL 203-362 [facility] Type and Screenon 05-05-2023 ABO and Rh group Nom (Bld) Blood group A Rh(D) positive Normal [facility] Comment on above: Order Comment: Trans fuse now? Y Number of units to transfuse now? 1 Vit. B12/Folate Profileon Cobalamin (Vitamin B12) [Mass/Vol] 3439 pg/mL High 180-914 [facility] Comment on above: Performed By: #### V [id number], FE and TIBC, DHRUV ####[facility] [id number] Folate 36.0 ng/mL Normal >5.9 [facility] Comment on above: Result Comment: Irma te reference range: >5.9 ng/ml The WHO technical consultation on folate and vitamin b12 deficiencies has determined that folate concentrations less than 4 ng/ml are considered deficient. PERFORMED BY: [facility] [address] [facility] [place] [address] PATHOLOGIST C.O.D. BILLER DI CORONEL M.D. Performed By: #### V [id number], FE and TIBC, DHRUV ####[facility] [id number] [place] [id number] [facility] Vitamin B12 ser/plasOrdered By: Jessica Macdonald on 05-05-2023 Cobalamin (Vitamin B12) [Mass/Vol] 3439 pg/mL 180-914 [facility] Arterial Blood Gason 05-03- 023 ABG Base Excess -1.3 mmol/L Normal -3.0-3.0 [facility] Comment on above: Performed By: #### A BG ####Point of Care testing, ABG Frac Inspired O2 50 % Normal [facility] Comment on above: Performed By: #### A BG ####Point of Care testing, ABG Oxygen Content 5.7 mmol/L Low 6.6-9.7 [facility] Comment on above: Performed By: #### A BG ####Point of Care testing, ABG Oxygen Saturation 94.5 % Low 95.0-100.0 [facility] Comment on above: Performed By: #### A BG ####Point of Care testing, ABG PCO2 69.8 mm[Hg] Off scale high 35.0-45.0 [facility] Comment on above: Performed By: #### A BG ####Point of Care testing, ABG PH 7.21 Low 7.35-7.45 [facility] Comment on above: Performed By: #### A BG ####Point of Care testing, ABG PO2 79.7 mm[Hg] Low 80.0-100.0 [facility] Comment on above: Performed By: #### A BG ####Point of Care testing, CO2 [Moles/Vol] 29.5 mmol/L High 23.0-27.0 [facility] Comment on above: Performed By: #### A BG ####Point of Care testing, HCO3 (Bld) [Moles/Vol] 27.4 mmol/L Normal 23.0-29.0 [facility] Comment on above: Performed By: #### A BG ####Point of Care testing, Respiratory Critical Normal [facility] Comment on above: Result Comment: Crit ical Value called on: 05/03/2023 at 18:19 PERFORMED BY: [facility] [address] [place] [address] PATHOLOGIST C.O.D. BILLER DI CORONEL M.D. Performed By: #### A BG ####Point of Care testing, VBG Draw Site Right Brachial Normal [facility] Comment on above: Performed By: #### A BG ####Point of Care testing, Basic Metabolic Panelon 08-3 Anion gap [Moles/Vol] 11.3 mmol/L Normal 6.0-15.0 [facility] Comment on above: Performed By: #### B MP #### [facility] [address] Calcium [Mass/Vol] 8.2 mg/dL Low 8.6-10.3 [facility] Comment on above: Performed By: #### B MP #### [facility] [address] Chloride [Moles/Vol] 92 mmol/L Low 98-107 [facility] Comment on above: Performed By: #### B MP #### [address] CO2 [Moles/Vol] 30.3 mmol/L Normal 21.0-31.0 [facility] Comment on above: Performed By: #### B MP #### [address] Creatinine [Mass/Vol] 5.78 mg/dL Significan t change up 0.70-1.30 [facility] Comment on above: Performed By: #### B MP #### [place] [address] [place] Creatinine Clr Calc Pharmacy 15.27 [facility] Comment on above: Result Comment: PERF ORMED BY: [place] [address] PATHOLOGIST C.O.D. BILLER DI CORONEL M.D. Performed By: #### B MP #### [place] [address] [place] GFR/1.73 sq M.predicted MDRD (S/P/Bld) [Vol rate/Area] 12.034 mL/min/{1.73_m2} [facility] Comment on above: Performed By: #### B MP #### [address] Glucose [Mass/Vol] 90 mg/dL Normal 70-100 [facility] Comment on above: Result Comment: [place] Glucose Reference Range is dependent on time and content of last meal. Glucose of more than 200 mg/dL in a nonstressed, ambulatory subject supports the diagnosis of Diabetes Mellitus. ADA recommended reference range Performed By: #### B MP #### [facility] [address] Potassium [Moles/Vol] 3.6 mmol/L Normal 3.5-5.1 [facility] Comment on above: Performed By: #### B MP #### [facility] [address] Sodium [Moles/Vol] 130 mmol/L Low 136-145 [facility] Comment on above: Performed By: #### B MP #### [facility] [address] Urea nitrogen [Mass/Vol] 47 mg/dL High 7-25 [facility] Comment on above: Performed By: #### B MP #### [facility] [address] Laboratory - Chemistry and C hemistry - challengeOrdered By: Bradford Henriquez on 05-03-2023 CO2 [Moles/Vol] 29.5 mmol/L 23.0-27.0 [facility] HCO3 (Bld) [Moles/Vol] 27.4 mmol/L 23.0-29.0 [facility] No Panel InformationOrdered By: Bradford Henriquez on 05-03-2023 Arterial Blood Base Excess -1.3 mmol/L -3.0-3.0 [facility] Arterial Blood Oxygen Content 5.7 mmol/L 6.6-9.7 [facility] Arterial Blood Oxygen Saturation 94.5 % 95.0-100.0 [facility] Arterial Blood Partial Pressure CO2 69.8 mm[Hg] 35.0-45.0 [facility] Arterial Blood Partial Pressure O2 79.7 mm[Hg] 80.0-100.0 [facility] Arterial Blood pH 7.21 7.35-7.45 [facility] Blood Gas Critical Value See comment [facility] Comment on above: Critical Value alistair sepulveda on: 05/03/2023 at 18:19 Blood Gas Sample Site Right brachial [facility] FiO2 50 % [facility] XR chest 1V portableon 05-03 XR chest 1V portable [facility] [address] [place] [address] [place] [address] XRay Report Signed Patient: Ruddy Palmer MR#: [id number] 9 : 1985 Acct:[id number] Age/Sex: 37 / M ADM Date: 04/28/23 Loc: Room: [address] [place] [address] Type: ADM IN Attending Dr: Bradford Henriquez MD Copies to: Bradford Henriquez MD Ordering Provider: Bradford Henriquez MD Date of Service: 05/03/23 XR/XR chest 1V portable: Dyspnea Plain film chest single view HISTORY: Shortness of breath COMPARISON: 04/28/2023 FINDINGS: SUPPORT DEVICES: None POSTSURGICAL CHANGES: None HEART: Within normal limits PULMONARY SIRENA: Within normal limits MEDIASTINUM: Unremarkable LUNGS AND PLEURA: Similar interstitial prominence with left basilar parenchymal densities. There are no large pleural effusion or pneumothorax. BONY STRUCTURES: Intact ADDITIONAL FINDINGS None XR/XR chest 1V portable IMPRESSION: Continued mild interstitial prominence in the left basilar parenchymal densities. No new findings. Impression dictated by: Rojas Navarrete M.D.05/03/2023 7:23 PM Dictation Location: [place] [address] Transcribed By: [facility] 05/03/231922 Dictated By: Rojas Navarrete DO 05/03/231917 Signed By: 05/03/231922 Normal [facility] Anisocytosis LM Ql (Bld)Orde red By: Bradford Henriquez on 05-02-2023 Anisocytosis Ql (Bld) Slight [place] [facility] Basic Metabolic Panelon 04-05 Anion gap [Moles/Vol] 11.7 mmol/L Normal 6.0-15.0 [facility] Comment on above: Performed By: #### B MP, SCAN CBC ####[facility] [id number] Calcium [Mass/Vol] 8.2 mg/dL Low 8.6-10.3 [facility] Comment on above: Performed By: #### B MP, SCAN CBC ####[facility] [id number] [place] [id number] [facility] Chloride [Moles/Vol] 95 mmol/L Low 98-107 [facility] Comment on above: Performed By: #### B MP, SCAN CBC ####[facility] [id number] CO2 [Moles/Vol] 30.1 mmol/L Normal 21.0-31.0 [facility] Comment on above: Performed By: #### B MP, SCAN CBC ####[facility] [id number] [address] Creatinine [Mass/Vol] 4.05 mg/dL Significan t change up 0.70-1.30 [facility] Comment on above: Performed By: #### B MP, SCAN CBC ####[place] [place] [address] [place] Creatinine Clr Calc Pharmacy 21.34 Normal [facility] Comment on above: Result Comment: PERF ORMED BY: [facility] [address] [place] [address] PATHOLOGIST C.O.D. BILLER DI CORONEL M.D. Performed By: #### B MP, SCAN CBC ####[place] [address] GFR/1.73 sq M.predicted MDRD (S/P/Bld) [Vol rate/Area] 18.441 mL/min/{1.73_m2} Normal [facility] Comment on above: Performed By: #### B MP, SCAN CBC ####[place] [address] [place] [id number] [facility] Glucose [Mass/Vol] 93 mg/dL Normal 70-100 [facility] Comment on above: Result Comment: [place] Glucose Reference Range is dependent on time and content of last meal. Glucose of more than 200 mg/dL in a nonstressed, ambulatory subject supports the diagnosis of Diabetes Mellitus. ADA recommended reference range Performed By: #### B MP, SCAN CBC ####[facility] [id number] [address] Potassium [Moles/Vol] 3.8 mmol/L Normal 3.5-5.1 [facility] Comment on above: Performed By: #### B MP, SCAN CBC ####[facility] [id number] Sodium [Moles/Vol] 133 mmol/L Low 136-145 [facility] Comment on above: Performed By: #### B MP, SCAN CBC ####[facility] [id number] [address] Urea nitrogen [Mass/Vol] 34 mg/dL High 7-25 [facility] Comment on above: Performed By: #### B MP, SCAN CBC ####[facility] [id number] [address] PSA Total (Not a Screen)on 0 05-02-2023 PSA Total (Not a Screen) 14.530 ng/mL High 0.000-4.00 0 [facility] Comment on above: Result Comment: PERF ORMED BY: [place] [address] PATHOLOGIST C.O.D. BILLER DI CORONEL M.D. Performed By: #### B MP, MG #### [facility] [address] Platelets Large [Presence] i n Blood by Light microscopyOrdered By: Bradford Henriquez on 05-02-2023 Platelets Large LM Ql (Bld) [facility] Poikilocytosis [Presence] in Blood by Light microscopyOrdered By: Bradford Henriquez on 05-02-2023 Poikilocytosis LM Ql (Bld) [facility] Polychromasia [Presence] in Blood by Light microscopyOrdered By: Bradford Henriquez on 05-02-2023 Polychromasia LM Ql (Bld) [facility] Prostate specific Ag [Mass/v olume] in Serum or PlasmaOrdered By: Kostas Wade on 05-02-2023 Prostate specific Ag [Mass/Vol] 14.530 ng/mL 0.000-4.00 0 [facility] Scan and CBCon 05-02-2023 Anisocytosis Ql (Bld) Slight Normal [place] [facility] Comment on above: Performed By: #### B MP, SCAN CBC ####[facility] [id number] [place] [address] [facility] Basophils (Bld) [#/Vol] 0.0 10*3/uL Normal 0.0-0.2 [facility] Comment on above: Performed By: #### B MP, SCAN CBC ####[place] [address] [place] [id number] [facility] Basophils/100 WBC (Bld) 0.2 % Normal . [facility] Comment on above: Performed By: #### B MP, SCAN CBC ####[place] [address] [place] [id number] [facility] Eosinophils (Bld) [#/Vol] 0.7 10*3/uL High 0.0-0.45 [facility] Comment on above: Performed By: #### B MP, SCAN CBC ####[place] [address] [place] [id number] [facility] Eosinophils/100 WBC (Bld) 6.0 % Normal . [facility] Comment on above: Performed By: #### B MP, SCAN CBC ####[place] [address] [place] [id number] [facility] Erythrocyte distribution width (RBC) [Ratio] 14.3 % Normal 12.0-14.8 [facility] Comment on above: Performed By: #### B MP, SCAN CBC ####[place] [address] [place] [address] [facility] Hematocrit (Bld) [Volume fraction] 25.4 % Low 38.8-50.0 [facility] Comment on above: Performed By: #### B MP, SCAN CBC ####[place] [address] [place] [address] [facility] Hemoglobin (Bld) [Mass/Vol] 8.2 g/dL Low 13.0-17.0 [facility] Comment on above: Performed By: #### B MP, SCAN CBC ####[address] Hypochromasia Slight Normal [facility] Comment on above: Performed By: #### B MP, SCAN CBC ####[address] Large Platelets Slight Normal [facility] Comment on above: Result Comment: PERF ORMED BY: [facility] [address] [place] [address] PATHOLOGIST C.O.D. BILLER DI CORONEL M.D. Performed By: #### B MP, SCAN CBC ####[address] Lymphocytes (Bld) [#/Vol] 1.0 10*3/uL Normal 1.00-4.8 [facility] Comment on above: Performed By: #### B MP, SCAN CBC ####[address] Lymphocytes/100 WBC (Bld) 8.8 % Normal . [facility] Comment on above: Performed By: #### B MP, SCAN CBC ####[address] MCH (RBC) [Entitic mass] 29.8 pg Normal 27.5-35.2 [facility] Comment on above: Performed By: #### B MP, SCAN CBC ####[address] MCV (RBC) [Entitic vol] 92.9 fL Normal 83.5-101 [facility] Comment on above: Performed By: #### B MP, SCAN CBC ####[address] Mean Corpuscular HGB Conc 32.1 g/dL Low 32.5-35.6 [facility] Comment on above: Performed By: #### B MP, SCAN CBC ####[address] Monocytes (Bld) [#/Vol] 1.3 10*3/uL High 0.0-0.8 [facility] Comment on above: Performed By: #### B MP, SCAN CBC ####[place] [id number] [facility] Monocytes/100 WBC (Bld) 11.5 % Normal . [facility] Comment on above: Performed By: #### B MP, SCAN CBC ####[place] [id number] [facility] Neutrophils (Bld) [#/Vol] 8.1 10*3/uL High 1.8-7.7 [facility] Comment on above: Performed By: #### B MP, SCAN CBC ####[place] [id number] [facility] Neutrophils/100 WBC (Bld) 73.5 % Normal . [facility] Comment on above: Performed By: #### B MP, SCAN CBC ####[place] [id number] [facility] NRBC% 0.1 /100{WBC} Normal 0-0.5 [facility] Comment on above: Performed By: #### B MP, SCAN CBC ####[place] [id number] [facility] Platelet Estimate Decreased Normal Normal [facility] Comment on above: Performed By: #### B MP, SCAN CBC ####[place] [id number] [facility] Platelet mean volume (Bld) [Entitic vol] 9.7 fL Normal 6.6-10.1 [facility] Comment on above: Performed By: #### B MP, SCAN CBC ####[address] [address] [facility] Platelets (Bld) [#/Vol] 66 10*3/uL Low 150-450 [facility] Comment on above: Performed By: #### B MP, SCAN CBC ####[place] [id number] [facility] Poikilocytosis Slight Normal [facility] Comment on above: Performed By: #### B MP, SCAN CBC ####[facility] [id number] [place] [id number] [facility] Polychromasia Slight Normal [facility] Comment on above: Performed By: #### B MP, SCAN CBC ####[facility] [id number] [place] [address] [facility] RBC (Bld) [#/Vol] 2.73 10*6/uL Low 3.90-5.60 [facility] Comment on above: Performed By: #### B MP, SCAN CBC ####[facility] [id number] [place] [address] [facility] Stomatocytes Moderate Normal [facility] Comment on above: Performed By: #### B MP, SCAN CBC ####[facility] [id number] [place] [id number] [facility] Tear Drop Cells Slight Normal [facility] Comment on above: Performed By: #### B MP, SCAN CBC ####[facility] [id number] [place] [id number] [facility] WBC (Bld) [#/Vol] 11.0 10*3/uL High 4.1-10.5 [facility] Comment on above: Performed By: #### B MP, SCAN CBC ####[facility] [id number] [place] [id number] [facility] Teardrop cell detectionOrder ed By: Bradford Henriquez on 05-02-2023 Dacrocytes LM Ql (Bld) Slight [facility] Bacterial blood cultureOrder ed By: Bradford Henriquez on 05-01-2023 Bacteria identified Cx Nom (Bld) NO GROWTH 5 DAYS [facility] Basic Metabolic Panelon 04-05 Anion gap [Moles/Vol] 14.9 mmol/L Normal 6.0-15.0 [facility] Comment on above: Order Comment: per r n draw last Performed By: #### B MP, CBCNO ####[address] Calcium [Mass/Vol] 8.4 mg/dL Low 8.6-10.3 [facility] Comment on above: Order Comment: per r n draw last Performed By: #### B MARQUEZ, CBCNO ####[place] [address] [place] [address] [facility] Chloride [Moles/Vol] 95 mmol/L Low 98-107 [facility] Comment on above: Order Comment: per r n draw last Performed By: #### B MARQUEZ, CBCNO ####[place] [address] [place] [address] [facility] CO2 [Moles/Vol] 23.9 mmol/L Normal 21.0-31.0 [facility] Comment on above: Order Comment: per r n draw last Performed By: #### B MARQUEZ, CBCNO ####[place] [address] [place] [address] [facility] Creatinine [Mass/Vol] 6.03 mg/dL Significan t change up 0.70-1.30 [facility] Comment on above: Order Comment: per r n draw last Performed By: #### B MARQUEZ, CBCNO ####[place] [address] [place] [address] [facility] Creatinine Clr Calc Pharmacy 14.35 Normal [facility] Comment on above: Order Comment: per r n draw last Result Comment: PERF ORMED BY: [facility] [address] [place] [id number] PATHOLOGIST C.O.D. BILLER DI CORONEL M.D. Performed By: #### B MARQUEZ, CBCNO ####[place] [address] [place] [address] [facility] GFR/1.73 sq M.predicted MDRD (S/P/Bld) [Vol rate/Area] 11.439 mL/min/{1.73_m2} Normal [facility] Comment on above: Order Comment: per r n draw last Performed By: #### B MARQUEZ, CBCNO ####[place] [address] [place] [address] [facility] Glucose [Mass/Vol] 82 mg/dL Normal 70-100 [facility] Comment on above: Order Comment: per r n draw last Result Comment: [place] Glucose Reference Range is dependent on time and content of last meal. Glucose of more than 200 mg/dL in a nonstressed, ambulatory subject supports the diagnosis of Diabetes Mellitus. ADA recommended reference range Performed By: #### B MARQUEZ, CBCNO ####[facility] [id number] [place] [address] [facility] Potassium [Moles/Vol] 3.8 mmol/L Normal 3.5-5.1 [facility] Comment on above: Order Comment: per r n draw last Performed By: #### B MARQUEZ, CBCNO ####[place] [address] [place] [address] [facility] Sodium [Moles/Vol] 130 mmol/L Low 136-145 [facility] Comment on above: Order Comment: per r n draw last Performed By: #### B MARQUEZ, CBCNO ####[place] [address] [place] [address] [facility] Urea nitrogen [Mass/Vol] 58 mg/dL High 7-25 [facility] Comment on above: Order Comment: per r n draw last Performed By: #### B MARQUEZ, CBCNO ####[place] [address] [place] [address] [facility] Blood Cultureon 05-01-2023 Bacteria identified Cx Nom (Bld) NO GROWTH 5 DAYS PERFORMED BY: [facility] [address] [place] [address] PATHOLOGIST C.O.D. BILLER DI CORONEL M.D. [facility] Comment on above: Performed By: #### C UBLD ####[place] [address] [place] [address] [facility] Bacteria identified Cx Nom (Bld) NO GROWTH 5 DAYS PERFORMED BY: [facility] [address] [place] [id number] PATHOLOGIST C.O.D. BILLER DI CORONEL M.D. [facility] Comment on above: Performed By: #### C UBLD ####[address] [address] [facility] CT abdomen pelvis wo conon 0 05-01-2023 CT abdomen pelvis wo con [facility] [place] [address] [place] [address] CT Scan Report Signed Patient: Ruddy Palmer MR#: [id number] 9 : 1985 Acct:[id number] Age/Sex: 37 / M ADM Date: 04/28/23 Loc: Room: [address] [place] [address] Type: ADM IN Attending Dr: Bradford Henriquez MD Copies to: MD Kostas Pierce MD Ordering Provider: Kostas Wade MD Date of Service: 05/01/23 CT/CT abdomen pelvis wo con: ecoli bacteremia CT ABDOMEN AND PELVIS WITHOUT INTRAVENOUS CONTRAST: CLINICAL HISTORY: Escherichia coli bacteremia. COMPARISON: None TECHNIQUE: Spiral images were obtained through the abdomen and pelvis without intravenous contrast. This CT exam was performed using one or more following dose reduction techniques: Automated exposure control, adjustment of the mA and/or kV according to patient size, or use of iterative reconstruction technique. FINDINGS: Lung Bases: [Emphysematous changes with bibasilar scarring.] Organs:Suboptimal evaluation due to lack of IV contrast. Cholelithiasis. Liver spleen pancreas and adrenal glands all appear unremarkable. Kidneys demonstrate no evidence of stone or hydronephrosis. The left kidney is asymmetrically atrophic compared to the left. Abdominal aorta appears normal in caliber.[ GI: Thickening of the esophagus at the GE junction. Stomach is grossly unremarkable. Small bowel appears nondilated. Appendix is normal. No acute colonic abnormality.[ Pelvis:[Prostatomegaly with urinary bladder wall thickening.] Peritoneum/Retroperitone um:No free air, free fluid or lymphadenopathy.[ Abd wall/Bones:Abdominal wall demonstrate no acute findings. Osseous structures demonstrate no acute findings. CT/CT abdomen pelvis wo con IMPRESSION: 1. No acute findings. 2. Cholelithiasis. 3. Thickening of the esophagus to the GE junction. Finding May relate to esophagitis. Correlation endoscopy is recommended as underlying malignancy cannot BE excluded. 4. Prostatomegaly with urinary bladder wall thickening suggestive of bladder outlet obstruction. Impression dictated by: Maurilio Art Jr., D.OIsidra05/01/2023 3:38 PM Dictation Location: [place] [address] Transcribed By: DESEAN 05/01/23 1538 Dictated By: Maurilio Art Jr, DO 05/01/23 1534 Signed By: 05/01/23 1538 Normal [facility] Fecal occult blood detection by immunochemistryOrdered By: Bradford Henriquez on 05-01-2023 Hemoglobin.gastrointest inal Ql (Stl) [facility] Hemogram CBC Without Diffon 05-01-2023 Erythrocyte distribution width (RBC) [Ratio] 14.1 % Normal 12.0-14.8 [facility] Comment on above: Order Comment: per r n draw last Performed By: #### B MARQUEZ CBCNO ####[address] Hematocrit (Bld) [Volume fraction] 26.5 % Low 38.8-50.0 [facility] Comment on above: Order Comment: per r n draw last Performed By: #### B MARQUEZ CBCNO ####[place] [id number] [facility] Hemoglobin (Bld) [Mass/Vol] 8.3 g/dL Low 13.0-17.0 [facility] Comment on above: Order Comment: per r n draw last Performed By: #### B MARQUEZ CBCNO ####[place] [id number] [facility] MCH (RBC) [Entitic mass] 29.2 pg Normal 27.5-35.2 [facility] Comment on above: Order Comment: per r n draw last Performed By: #### B MARQUEZ, CBCNO ####[place] [id number] [facility] MCV (RBC) [Entitic vol] 92.9 fL Normal 83.5-101 [facility] Comment on above: Order Comment: per r n draw last Performed By: #### B MARQUEZ, CBCNO ####[place] [id number] [facility] Mean Corpuscular HGB Conc 31.5 g/dL Low 32.5-35.6 [facility] Comment on above: Order Comment: per r n draw last Performed By: #### B MARQUEZ, CBCNO ####[place] [id number] [facility] Platelet mean volume (Bld) [Entitic vol] 10.2 fL High 6.6-10.1 [facility] Comment on above: Order Comment: per r n draw last Result Comment: PERF ORMED BY: [facility] [address] [address] PATHOLOGIST C.O.D. BILLER DI CORONEL M.D. Performed By: #### B MP, CBCNO ####[place] [id number] [facility] Platelets (Bld) [#/Vol] 63 10*3/uL Low 150-450 [facility] Comment on above: Order Comment: per r n draw last Performed By: #### B MP, CBCNO ####[place] [id number] [facility] RBC (Bld) [#/Vol] 2.85 10*6/uL Low 3.90-5.60 [facility] Comment on above: Order Comment: per r n draw last Performed By: #### B MP, CBCNO ####[address] WBC (Bld) [#/Vol] 13.1 10*3/uL High 4.1-10.5 [facility] Comment on above: Order Comment: per r n draw last Performed By: #### B MARQUEZ, CBCNO ####[place] [id number] [facility] Stool Occult Blood (Guaiac)o n 05-01-2023 Stool Occult Blood (Guaiac) Occult Blood Positive for Occult Blood by Guaiac Methodology ------ Reference range = Negative PERFORMED BY: [facility] [address] [place] [address] PATHOLOGIST C.O.D. BILLER DI CORONEL M.D. [facility] Comment on above: Performed By: #### C UU, URDS #### [address] Basic Metabolic Panelon 08-2 Anion gap [Moles/Vol] 10.6 mmol/L Normal 6.0-15.0 [facility] Comment on above: Performed By: #### B MP, MG #### [address] Calcium [Mass/Vol] 8.4 mg/dL Low 8.6-10.3 [facility] Comment on above: Performed By: #### B MP, MG #### [address] Chloride [Moles/Vol] 97 mmol/L Low 98-107 [facility] Comment on above: Performed By: #### B MP, MG #### [address] CO2 [Moles/Vol] 27.1 mmol/L Normal 21.0-31.0 [facility] Comment on above: Performed By: #### B MP, MG #### [address] Creatinine [Mass/Vol] 4.28 mg/dL Significan t change up 0.70-1.30 [facility] Comment on above: Performed By: #### B MP, MG #### [address] Creatinine Clr Calc Pharmacy 20.75 [facility] Comment on above: Result Comment: PERF ORMED BY: [place] [address] PATHOLOGIST C.O.D. BILLER DI CORONEL M.D. Performed By: #### B MP, MG #### [address] GFR/1.73 sq M.predicted MDRD (S/P/Bld) [Vol rate/Area] 17.258 mL/min/{1.73_m2} Normal [facility] Comment on above: Performed By: #### B MP, MG #### [facility] [address] Glucose [Mass/Vol] 86 mg/dL Normal 70-100 [facility] Comment on above: Result Comment: [place] Glucose Reference Range is dependent on time and content of last meal. Glucose of more than 200 mg/dL in a nonstressed, ambulatory subject supports the diagnosis of Diabetes Mellitus. ADA recommended reference range Performed By: #### B MP, MG #### [facility] [address] Potassium [Moles/Vol] 3.7 mmol/L Normal 3.5-5.1 [facility] Comment on above: Performed By: #### B MP, MG #### [facility] [address] Sodium [Moles/Vol] 131 mmol/L Low 136-145 [facility] Comment on above: Performed By: #### B MP, MG #### [facility] [address] Urea nitrogen [Mass/Vol] 43 mg/dL High 7-25 [facility] Comment on above: Performed By: #### B MP, MG #### [facility] [address] Blood Cultureon 04-30-2023 Bacteria identified Cx Nom (Bld) [facility] BCID Panel results called at 0308 on 05/01/23 Gram Stain Gram Negative Bacilli ORGANISM: Escherichia coli (ESBL) (O:ESCCOLESBL) Aerobic TRINA Charge (NMIC56) - SUSCEPTIBILITY ORGANISM: O:ESCCOLESBL ANTIBIOTIC INTERPRETATION TRINA Amikacin S <16 Amoxacillin/K Clavulanate S <8 Ampicillin R* >16 Ampicillin/Sulbactam R >16 Aztreonam ESBL >16 Cefazolin R* >16 Cefepime R* >16 Ceftazidime ESBL >16 Ceftazidime/Avibactam S <4 Ceftolozane/Tazobactam S <2 Ceftriaxone ESBL >32 Cefuroxime R* >16 Ciprofloxacin R >2 Ertapenem S <0.5 Gentamicin R >8 Levofloxacin R >4 Meropenem S <1 Meropenem/Vaborbactam S <2 Piperacillin/Tazobactam S <8 Tetracycline S <4 Tobramycin I 8 Trimethoprim/Sulfamethox azole S <0.5 [facility] BCID Panel results called at 0308 on 05/01/23 Staphylococcus aureus DNA [Presence] by LU with non-probe detection in Positive blood culture Not detected Bacteroides fragilis DNA [Presence] by LU with non-probe detection in Positive blood culture Not detected Paola auris DNA [Presence] by LU with non-probe detection in Positive blood culture Not detected Paola albicans DNA [Presence] by LU with non-probe detection in Positive blood culture Not detected Acinetobacter calcoaceticus-baumannii complex DNA [Presence] by LU with non-probe detection in Positive blood culture Not detected Cryptococcus neoformans or gattii 9002 Not detected Cephalosporin resistance blaCTX-M gene [Presence] by Molecular method Detected Escherichia coli Detected Enterobacterales DNA [Presence] by LU with non-probe detection in Positive blood culture Detected Enterobacter cloacae complex DNA [Presence] by LU with non-probe detection in Positive blood culture Not detected Staphylococcus epidermidis DNA [Presence] by LU with non-probe detection in Positive blood culture Not detected Enterococcus faecalis DNA [Presence] by LU with non-probe detection in Positive blood culture Not detected Enterococcus faecium DNA [Presence] by LU with non-probe detection in Positive blood culture Not detected Paola glabrata DNA [Presence] by LU with non-probe detection in Positive blood culture Not detected Haemophilus influenzae (reported as H flu) Not detected Carbapenem resistance blaIMP gene [Presence] by Molecular method Not detected Klebsiella aerogenes DNA [Presence] by LU with non-probe detection in Positive blood culture Not detected Klebsiella pneumoniae+Klebsiella variicola+Klebsiella quasipneumoniae DNA [Presence] by LU with non-probe detection in Positive blood culture Not detected Klebsiella oxytoca DNA [Presence] by LU with non-probe detection in Positive blood culture Not detected Carbapenem resistance blaKPC gene [Presence] by Molecular method Not detected Paola krusei DNA [Presence] by LU with non-probe detection in Positive blood culture Not detected Listeria monocytogenes (reported as listeriosis) Not detected Staphylococcus lugdunensis DNA [Presence] by LU with non-probe detection in Positive blood culture Not detected Methicillin resistance mecA+mecC genes+SCCmec+OrfX junction [Presence] by Molecular method Not Applicable Carbapenem resistance blaNDM gene [Presence] by Molecular method Not detected Neisseria meningitidis - reported as meningococcal disease Not detected Carbapenem resistance lorena OXA-48-like gene [Presence] by Molecular method Not detected Paola parapsilosis DNA [Presence] by LU with non-probe detection in Positive blood culture Not detected Streptococcus pneumoniae - reported at [facility] Not detected Proteus sp DNA [Presence] by LU with non-probe detection in Positive blood culture Not detected Pseudomonas aeruginosa DNA [Presence] by LU with non-probe detection in Positive blood culture Not detected Salmonella sp DNA [Presence] by LU with non-probe detection in Positive blood culture Not detected Serratia marcescens DNA [Presence] by LU with non-probe detection in Positive blood culture Not detected Staphylococcus sp DNA [Presence] by LU with non-probe detection in Positive blood culture Not detected Stenotrophomonas maltophilia DNA [Presence] by LU with non-probe detection in Positive blood culture Not detected Group A (Streptococcus pyogenes) [id number] Not detected Group B Strep (Streptococcus agalactiae) Not detected Streptococcus sp DNA [Presence] by LU with non-probe detection in Positive blood culture Not detected Paola tropicalis DNA [Presence] by LU with non-probe detection in Positive blood culture Not detected Vancomycin resistance Roland + vanB genes [Presence] by Molecular method Not Applicable Carbapenem resistance blaVIM gene [Presence] by Molecular method Not detected Colistin resistance mcr-1 gene [Presence] by Molecular method Not detected Methicillin resistance mecA+mecC genes [Presence] in Isolate (more content not included)... Normal [facility] Comment on above: Performed By: #### C UBLD ####[facility] Hemogram CBC Without Diffon 04-30-2023 Erythrocyte distribution width (RBC) [Ratio] 14.2 % Normal 12.0-14.8 [facility] Comment on above: Performed By: #### B MP, MG #### [facility] [address] Hematocrit (Bld) [Volume fraction] 26.0 % Low 38.8-50.0 [facility] Comment on above: Performed By: #### B MP, MG #### [address] Hemoglobin (Bld) [Mass/Vol] 8.3 g/dL Low 13.0-17.0 [facility] Comment on above: Performed By: #### B MP, MG #### [address] MCH (RBC) [Entitic mass] 29.6 pg Normal 27.5-35.2 [facility] Comment on above: Performed By: #### B MP, MG #### [address] MCV (RBC) [Entitic vol] 92.7 fL Normal 83.5-101 F [facility] Comment on above: Performed By: #### B MP, MG #### [address] Mean Corpuscular HGB Conc 32.0 g/dL Low 32.5-35.6 [facility] Comment on above: Performed By: #### B MP, MG #### [address] Platelet mean volume (Bld) [Entitic vol] 9.9 fL Normal 6.6-10.1 [facility] Comment on above: Result Comment: PERF ORMED BY: [place] [address] PATHOLOGIST C.O.D. BILLER DI CORONEL M.D. Performed By: #### B MP, MG #### [address] Platelets (Bld) [#/Vol] 59 10*3/uL Low 150-450 [facility] Comment on above: Performed By: #### B MP, MG #### [address] RBC (Bld) [#/Vol] 2.80 10*6/uL Low 3.90-5.60 [facility] Comment on above: Performed By: #### B MP, MG #### [facility] [address] WBC (Bld) [#/Vol] 14.4 10*3/uL High 4.1-10.5 [facility] Comment on above: Performed By: #### B MP, MG #### [facility] [address] Automated erythrocytes count in urine sediment (number/area)Ordered By: Dre Cardoza on 04-29-2023 RBC Auto (Urine sed) [#/Area] 20-49 [HPF] 0-4 [facility] Automated leukocytes count i n urine sediment (number/area)Ordered By: Dre Cardoza on 04-29-2023 WBC Auto (Urine sed) [#/Area] Innumerable [HPF] 0-4 [facility] Automated urine color determ inationOrdered By: Dre Cardoza on 04-29-2023 Color (U) [place] Critically abnormal Yellow [facility] Comment on above: Order Comment: Name Collection Type:: Straight Catheter Performed By: #### C BC, BMP #### [address] Basic Metabolic Panelon 04-05 Anion gap [Moles/Vol] 11.0 mmol/L Normal 6.0-15.0 [facility] Comment on above: Performed By: #### C UU, URDS #### [address] Calcium [Mass/Vol] 8.5 mg/dL Low 8.6-10.3 [facility] Comment on above: Performed By: #### C UU, URDS #### [address] Chloride [Moles/Vol] 97 mmol/L Low 98-107 [facility] Comment on above: Performed By: #### C UU, URDS #### [place] [address] [place] CO2 [Moles/Vol] 26.8 mmol/L Normal 21.0-31.0 [facility] Comment on above: Performed By: #### C UU, URDS #### [facility] [address] Creatinine [Mass/Vol] 5.30 mg/dL Significan t change up 0.70-1.30 [facility] Comment on above: Performed By: #### C UU, URDS #### [facility] [address] Creatinine Clr Calc Pharmacy 16.95 Normal [facility] Comment on above: Result Comment: PERF ORMED BY: [place] [address] PATHOLOGIST C.O.D. BILLER DI CORONEL M.D. Performed By: #### C UU, URDS #### [address] GFR/1.73 sq M.predicted MDRD (S/P/Bld) [Vol rate/Area] 13.354 mL/min/{1.73_m2} Normal [facility] Comment on above: Performed By: #### C UU, URDS #### [address] Glucose [Mass/Vol] 78 mg/dL Normal 70-100 [facility] Comment on above: Result Comment: [place] Glucose Reference Range is dependent on time and content of last meal. Glucose of more than 200 mg/dL in a nonstressed, ambulatory subject supports the diagnosis of Diabetes Mellitus. ADA recommended reference range Performed By: #### C UU, URDS #### [facility] [address] [place] [address] [place] Potassium [Moles/Vol] 4.8 mmol/L Normal 3.5-5.1 [facility] Comment on above: Performed By: #### C UU, URDS #### [facility] [address] [place] [address] [place] Sodium [Moles/Vol] 130 mmol/L Low 136-145 [facility] Comment on above: Performed By: #### C UU, URDS #### [facility] [address] [place] [address] [place] Urea nitrogen [Mass/Vol] 63 mg/dL Significant change up 03-28 [facility] Comment on above: Performed By: #### C UU, URDS #### [facility] [address] Bilirubin Test strip Ql (U)O rdered By: Dre Cardoza on 04-29-2023 Bilirubin Ql (U) 1+ Negative [facility] Dipstick and Microscopicon 0 04-29-2023 Appearance (U) [place] Critically abnormal Clear [facility] Comment on above: Order Comment: Name Collection Type:: Straight Catheter Performed By: #### C BC, BMP #### [facility] [address] [place] [address] [place] Bacteria,Urine 4+ High None Seen [facility] Comment on above: Order Comment: Name Collection Type:: Straight Catheter Performed By: #### C BC, BMP #### [facility] [address] [place] [address] [place] Bilirubin,Urine 1+ High Negative [facility] Comment on above: Order Comment: Name Collection Type:: Straight Catheter Performed By: #### C BC, BMP #### [facility] [address] [place] [address] [place] Glucose Ql (U) Normal Normal Normal [facility] Comment on above: Order Comment: Name Collection Type:: Straight Catheter Performed By: #### C BC, BMP #### [facility] [address] [place] [id number] [place] Hyaline Casts,Urine 0-8 Normal 0-8 [facility] Comment on above: Order Comment: Name Collection Type:: Straight Catheter Performed By: #### C BC, BMP #### [facility] [address] [place] [id number] [place] Ketones Ql (U) Negative Normal Negative [facility] Comment on above: Order Comment: Name Collection Type:: Straight Catheter Performed By: #### C BC, BMP #### [facility] [address] [place] [address] Leukocyte esterase Test strip Ql (U) 4+ High Negative [facility] Comment on above: Order Comment: Name Collection Type:: Straight Catheter Performed By: #### C BC, BMP #### [address] Nitrite,Urine Positive High Negative [facility] Comment on above: Order Comment: Name Collection Type:: Straight Catheter Performed By: #### C BC, BMP #### [address] Occult Blood,Urine 3+ High Negative [facility] Comment on above: Order Comment: Name Collection Type:: Straight Catheter Result Comment: PERF ORMED BY: [place] [address] PATHOLOGIST C.O.D. BILLER DI CORONEL M.D. Performed By: #### C BC, BMP #### [address] RBC,Urine 20-49 High 0-4 [facility] Comment on above: Order Comment: Name Collection Type:: Straight Catheter Performed By: #### C BC, BMP #### [address] Specificy [place],Urine 1.015 Normal 1.00 1-1.03 0 [facility] Comment on above: Order Comment: Name Collection Type:: Straight Catheter Performed By: #### C BC, BMP #### [address] Squamous Epithelial Cell,Urine 0-1 Normal 0-2 [facility] Comment on above: Order Comment: Name Collection Type:: Straight Catheter Performed By: #### C BC, BMP #### [address] Urobilinogen,Urine Normal Normal Normal [facility] Comment on above: Order Comment: Name Collection Type:: Straight Catheter Performed By: #### C BC, BMP #### [address] WBC,Urine Innumerable High 0-4 [facility] Comment on above: Order Comment: Name Collection Type:: Straight Catheter Performed By: #### C BC, BMP #### [address] Yeast,Urine Rare Critically abnormal None Seen [facility] Comment on above: Order Comment: Name Collection Type:: Straight Catheter Result Comment: PERF ORMED BY: [place] [address] PATHOLOGIST C.O.D. BILLER DI CORONEL M.D. Performed By: #### C BC, BMP #### [address] Hemogram CBC Without Diffon 04-29-2023 Erythrocyte distribution width (RBC) [Ratio] 14.0 % Normal 12.0-14.8 [facility] Comment on above: Performed By: #### C UU, URDS #### [address] Hematocrit (Bld) [Volume fraction] 28.0 % Low 38.8-50.0 [facility] Comment on above: Performed By: #### C UU, URDS #### [address] Hemoglobin (Bld) [Mass/Vol] 9.0 g/dL Low 13.0-17.0 [facility] Comment on above: Performed By: #### C UU, URDS #### [address] MCH (RBC) [Entitic mass] 29.9 pg Normal 27.5-35.2 [facility] Comment on above: Performed By: #### C UU, URDS #### [address] MCV (RBC) [Entitic vol] 92.7 fL Normal 83.5-101 [facility] Comment on above: Performed By: #### C UU, URDS #### [address] Mean Corpuscular HGB Conc 32.2 g/dL Low 32.5-35.6 [facility] Comment on above: Performed By: #### C UU, URDS #### [facility] [address] Platelet mean volume (Bld) [Entitic vol] 10.6 fL High 6.6-10.1 [facility] Comment on above: Result Comment: PERF ORMED BY: [place] [address] PATHOLOGIST C.O.D. BILLER DI CORONEL M.D. Performed By: #### C UU, URDS #### [facility] [address] Platelets (Bld) [#/Vol] 65 10*3/uL Low 150-450 [facility] Comment on above: Performed By: #### C UU, URDS #### [address] RBC (Bld) [#/Vol] 3.03 10*6/uL Low 3.90-5.60 [facility] Comment on above: Performed By: #### C UU, URDS #### [address] WBC (Bld) [#/Vol] 14.9 10*3/uL High 4.1-10.5 [facility] Comment on above: Performed By: #### C UU, URDS #### [address] Ketones Auto test strip (U) [Mass/Vol]Ordered By: Dre Cardoza on 04-29-2023 Ketones (U) [Mass/Vol] Negative Negative [facility] - UrinalysisOrder ed By: Dre Cardoza on 04-29-2023 Hyaline casts LM Ql (Urine sed) 0-8 [LPF] 0-8 [facility] Nitrite Test strip Ql (U)Ord ered By: Dre Cardoza on 04-29-2023 Nitrite Ql (U) Positive Negative [facility] Specific gravity Auto test s trip (U) [Rel density]Ordered By: Dre Cardoza on 04-29-2023 Specific gravity (U) [Rel density] 1.015 1.001-1.03 0 [facility] Squamous epithelial cells de tection in urine sediment by light microscopyOrdered By: Dre Cardoza on 04-29-2023 Epithelial cells.squamous LM Ql (Urine sed) 0-1 [HPF] 0-2 [facility] Urine Cultureon 04-29-2023 Bacteria identified Cx Nom (U) ORGANISM: Escherichia coli (ESBL) (O:ESCCOLESBL) [place] Count >100,000 Results called at 0842 on 05/01/23 Aerobic TRINA Charge (NMIC56) - SUSCEPTIBILITY ORGANISM: O:ESCCOLESBL ANTIBIOTIC INTERPRETATION TRINA Amikacin S <16 Amoxacillin/K Clavulanate S <8 Ampicillin R* >16 Ampicillin/Sulbactam R >16 Aztreonam ESBL >16 Cefazolin R* >16 Cefepime R* >16 Ceftazidime ESBL >16 Ceftazidime/Avibactam S <4 Ceftolozane/Tazobactam S <2 Ceftriaxone ESBL >32 Cefuroxime R* >16 Ciprofloxacin R >2 Ertapenem S <0.5 Gentamicin R >8 Levofloxacin R >4 Meropenem S <1 Meropenem/Vaborbactam S <2 Nitrofurantoin S <32 Piperacillin/Tazobactam S <8 Tetracycline S <4 Tigecycline S <2 Tobramycin I 8 Trimethoprim/Sulfamethox azole S <0.5 S = SUSCEPTIBLE I = INTERMEDIATE R = RESISTANT BLANK = DATA NOT AVAILABLE, OR DRUG NOT ADVISABLE OR TESTED R* = RESISTANCE DUE TO EXTENDED SPECTRUM BETA-LACTAMASES ESBL = EXTENDED SPECTRUM BETA-LACTAMASE TFG = THYMIDINE-DEPENDENT STRAIN ROSIE = BETA-LACTAMASE POSITIVE IB = INDUCIBLE BETA-LACTAMASE. APPEARS IN PLACE OF 'S' WITH SPECIES KNOWN TO POSSESS INDUCIBLE BETA-LACTAMASES. POTENTIALLY THEY MAY BECOME RESISTANT TO ALL B-LACTAM DRUGS. PERFORMED BY: [address] [place] [address] PATHOLOGIST C.O.D. BILLER DI CORONEL M.D. [facility] Comment on above: Performed By: #### C ERLIN, SOFÍA #### [address] Urine bacteria detection by automated methodOrdered By: Dre Cardoza on 04-29-2023 Bacteria Auto Ql (U) 4+ None Seen [facility] Urine clarity by refractomet ry automatedOrdered By: Dre Cardoza on 04-29-2023 Clarity Refractometry automated (U) Turbid Clear [facility] Urine culture routineOrdered By: Dre Cardoza on 04-29-2023 Bacteria identified Cx Nom (U) Escherichia coli (ESBL) [facility] Urine glucose measurement by automated test strip (mass/volume)Ordered By: Dre Cardoza on 04-29-2023 Glucose Auto test strip (U) [Mass/Vol] Normal mg/dL Normal [facility] Urine hemoglobin detection b y automated test stripOrdered By: Dre Cardoza on 04-29-2023 Hemoglobin Auto test strip Ql (U) 3+ Negative [facility] Urine leukocyte esterase det ection by automated test stripOrdered By: Dre Cardoza on 04-29-2023 Leukocyte esterase Auto test strip Ql (U) 4+ Negative [facility] Urine pH measurement by auto mated test stripOrdered By: Dre Cardoza on 04-29-2023 pH (U) 6.0 [pH] Normal 5.0-9.0 [facility] Comment on above: Order Comment: Name Collection Type:: Straight Catheter Performed By: #### C ERLIN, SOFÍA #### [place] [address] [place] Urine protein measurement by automated test strip (mass/volume)Ordered By: Dre Cardoza on 04-29-2023 Protein (U) [Mass/Vol] 300 mg/dL High Negative [facility] Comment on above: Order Comment: Name Collection Type:: Straight Catheter Performed By: #### C ERLIN, SOFÍA #### [place] [address] [place] Urobilinogen Auto test strip (U) [Mass/Vol]Ordered By: Dre Cardoza on 04-29-2023 Urobilinogen (U) [Mass/Vol] Normal mg/dL Normal [facility] Yeast detection in urine sed iment by light microscopyOrdered By: Dre Cardoza on 04-29-2023 Yeast LM Ql (Urine sed) Rare [HPF] None Seen [facility] Activated partial thrombopla stin time (aPTT) in platelet poor plasma by coagulation aOrdered By: Dre Cardoza on 04-28-2023 aPTT Coag (PPP) [Time] 36.0 s 25.1-36.5 [facility] Alanine aminotransferase [En zymatic activity/volume] in Serum or PlasmaOrdered By: Dre Cardoza on 04-28-2023 ALT [Catalytic activity/Vol] 27 U/L 7-52 [facility] Albumin [Mass/volume] in Ser um or Plasma by Bromocresol green (BCG) dye binding methoOrdered By: Dre Cardoza on 04-28-2023 Albumin BCG dye [Mass/Vol] 3.4 g/dL 3.5-5.7 [facility] Alkaline phosphatase [Enzyma tic activity/volume] in Serum or PlasmaOrdered By: Dre Cardoza on 04-28-2023 ALP [Catalytic activity/Vol] 107 U/L 34-104 [facility] Aspartate aminotransferase [ Enzymatic activity/volume] in Serum or PlasmaOrdered By: Dre Cardoza on 04-28-2023 AST [Catalytic activity/Vol] 27 U/L 13-39 [facility] Band form neutrophils/100 WB C Manual cnt (Bld)Ordered By: Dre Cardoza on 04-28-2023 Band form neutrophils/100 WBC (Bld) 36 % 0-5 [facility] Basophils Auto (Bld) [#/Vol] Ordered By: Dre Cardoza on 04-28-2023 Basophils (Bld) [#/Vol] N/A [facility] Basophils/100 WBC Auto (Bld) Ordered By: Dre Cardoza on 04-28-2023 Basophils/100 WBC (Bld) N/A [facility] Basophils/100 WBC Manual cnt (Bld)Ordered By: Dre Cardoza on 04-28-2023 Basophils/100 WBC (Bld) 0 % 0-2 [facility] Bilirubin.total [Mass/volume ] in Serum or PlasmaOrdered By: Dre Cardoza on 04-28-2023 Bilirubin [Mass/Vol] 0.3 mg/dL 0.3-1.0 [facility] Blood Cultureon 04-28-2023 Bacteria identified Cx Nom (Bld) [employer] BCID Panel results called at 0247 on 04/29/23 Gram Stain Gram Negative Bacilli ORGANISM: Escherichia coli (ESBL) (O:ESCCOLESBL) Organism Comments For TRINA Refer to Final Report of Blood Culture Collected Date 04/28/23 PERFORMED BY: [facility] [address] [place] [address] PATHOLOGIST C.O.D. BILLER DI CORONEL M.D. Normal [facility] Comment on above: Performed By: #### C UU, URDS #### [facility] [address] Bacteria identified Cx Nom (Bld) [employer] BCID Panel results called at 0247 on 04/29/23 ESBL results called at 0932 on 04/30/23 Gram Stain Gram Negative Bacilli ORGANISM: Escherichia coli (ESBL) (O:ESCCOLESBL) Aerobic TRINA Charge (NMIC56) - SUSCEPTIBILITY ORGANISM: O:ESCCOLESBL ANTIBIOTIC INTERPRETATION TRINA Amikacin S <16 Amoxacillin/K Clavulanate I 1616/8 Ampicillin R* >16 Ampicillin/Sulbactam R >16 Aztreonam ESBL >16 Cefazolin R* >16 Cefepime R* >16 Ceftazidime ESBL >16 Ceftazidime/Avibactam S <4 Ceftolozane/Tazobactam S <2 Ceftriaxone ESBL >32 Cefuroxime R* >16 Ciprofloxacin R >2 Ertapenem S <0.5 Gentamicin R >8 Levofloxacin R >4 Meropenem S <1 Meropenem/Vaborbactam S <2 Piperacillin/Tazobactam S <8 Tetracycline S <4 Tobramycin I 8 Trimethoprim/Sulfamethox azole S <0.5 [employer] BCID Panel results called at 0247 on 04/29/23 ESBL results called at 0932 on 04/30/23 Staphylococcus aureus DNA [Presence] by LU with non-probe detection in Positive blood culture Not detected Bacteroides fragilis DNA [Presence] by LU with non-probe detection in Positive blood culture Not detected Paola auris DNA [Presence] by LU with non-probe detection in Positive blood culture Not detected Paola albicans DNA [Presence] by LU with non-probe detection in Positive blood culture Not detected Acinetobacter calcoaceticus-baumannii complex DNA [Presence] by LU with non-probe detection in Positive blood culture Not detected Cryptococcus neoformans or gattii 9002 Not detected Cephalosporin resistance blaCTX-M gene [Presence] by Molecular method Detected Escherichia coli Detected Enterobacterales DNA [Presence] by LU with non-probe detection in Positive blood culture Detected Enterobacter cloacae complex DNA [Presence] by LU with non-probe detection in Positive blood culture Not detected Staphylococcus epidermidis DNA [Presence] by LU with non-probe detection in Positive blood culture Not detected Enterococcus faecalis DNA [Presence] by LU with non-probe detection in Positive blood culture Not detected Enterococcus faecium DNA [Presence] by LU with non-probe detection in Positive blood culture Not detected Paola glabrata DNA [Presence] by LU with non-probe detection in Positive blood culture Not detected Haemophilus influenzae (reported as H flu) Not detected Carbapenem resistance blaIMP gene [Presence] by Molecular method Not detected Klebsiella aerogenes DNA [Presence] by LU with non-probe detection in Positive blood culture Not detected Klebsiella pneumoniae+Klebsiella variicola+Klebsiella quasipneumoniae DNA [Presence] by LU with non-probe detection in Positive blood culture Not detected Klebsiella oxytoca DNA [Presence] by LU with non-probe detection in Positive blood culture Not detected Carbapenem resistance blaKPC gene [Presence] by Molecular method Not detected Paola krusei DNA [Presence] by LU with non-probe detection in Positive blood culture Not detected Listeria monocytogenes (reported as listeriosis) Not detected Staphylococcus lugdunensis DNA [Presence] by LU with non-probe detection in Positive blood culture Not detected Methicillin resistance mecA+mecC genes+SCCmec+OrfX junction [Presence] by Molecular method Not Applicable Carbapenem resistance blaNDM gene [Presence] by Molecular method Not detected Neisseria meningitidis - reported as meningococcal disease Not detected Carbapenem resistance lorena OXA-48-like gene [Presence] by Molecular method Not detected Paola parapsilosis DNA [Presence] by LU with non-probe detection in Positive blood culture Not detected Streptococcus pneumoniae - reported at IS Not detected Proteus sp DNA [Presence] by LU with non-probe detection in Positive blood culture Not detected Pseudomonas aeruginosa DNA [Presence] by LU with non-probe detection in Positive blood culture Not detected Salmonella sp DNA [Presence] by LU with non-probe detection in Positive blood culture Not detected Serratia marcescens DNA [Presence] by LU with non-probe detection in Positive blood culture Not detected Staphylococcus sp DNA [Presence] by LU with non-probe detection in Positive blood culture Not detected Stenotrophomonas maltophilia DNA [Presence] by LU with non-probe detection in Positive blood culture Not detected Group A (Streptococcus pyogenes) [id number] Not detected Group B Strep (Streptococcus agalactiae) Not detected Streptococcus sp DNA [Presence] by LU with non-probe detection in Positive blood culture Not detected Paola tropicalis DNA [Presence] by LU with non-probe detection in Positive blood culture Not detected Vancomycin resistance Roland + vanB genes [Presence] by Molecular method Not Applicable Carbapenem resistance blaVIM gene [Presence] by Molecular method Not detected Colistin resistance mcr-1 gene [Presence] b (more content not included)... Normal [facility] Comment on above: Performed By: #### C BC, BMP #### [address] Rao cells [Presence] in Blo od by Light microscopyOrdered By: Dre Cardoza on 04-28-2023 Rao cells LM Ql (Bld) Slight Fi [facility] Calcium [Mass/volume] in Ser um or PlasmaOrdered By: Dre Cardoza on 04-28-2023 Calcium [Mass/Vol] 9.0 mg/dL 8.6-10.3 [facility] Carbon dioxide, total [Moles /volume] in Serum or PlasmaOrdered By: Dre Cardoza on 04-28-2023 CO2 [Moles/Vol] 20.7 mmol/L 21.0-31.0 [facility] Chloride [Moles/volume] in [place] or PlasmaOrdered By: Dre Cardoza on 04-28-2023 Chloride [Moles/Vol] 96 mmol/L 98-107 [facility] Comprehensive Metabolic Pane clara 04-28-2023 Albumin [Mass/Vol] 3.4 g/dL Low 3.5-5.7 [facility] Comment on above: Performed By: #### C BC, BMP #### [facility] [address] Albumin/Globulin [Mass ratio] 1.3 {ratio} Normal [facility] Comment on above: Performed By: #### C BC, BMP #### [facility] [address] ALP [Catalytic activity/Vol] 107 U/L High 34-104 [facility] Comment on above: Performed By: #### C BC, BMP #### [facility] [address] ALT [Catalytic activity/Vol] 27 U/L Normal 7-52 [facility] Comment on above: Performed By: #### C BC, BMP #### [facility] [address] Anion gap [Moles/Vol] 16.3 mmol/L High 6.0-15.0 [facility] Comment on above: Performed By: #### C BC, BMP #### [facility] [address] AST [Catalytic activity/Vol] 27 U/L Normal 13-39 [facility] Comment on above: Performed By: #### C BC, BMP #### [facility] [address] Bilirubin [Mass/Vol] 0.3 mg/dL Normal 0.3-1.0 [facility] Comment on above: Performed By: #### C BC, BMP #### [facility] [address] Calcium [Mass/Vol] 9.0 mg/dL Normal 8.6-10.3 [facility] Comment on above: Performed By: #### C BC, BMP #### [facility] [address] [place] [address] [place] Chloride [Moles/Vol] 96 mmol/L Low 98-107 [facility] Comment on above: Performed By: #### C BC, BMP #### [facility] [address] CO2 [Moles/Vol] 20.7 mmol/L Low 21.0-31.0 [facility] Comment on above: Performed By: #### C BC, BMP #### [facility] [address] Creatinine [Mass/Vol] 6.75 mg/dL High 0.70-1.30 [facility] Comment on above: Performed By: #### C BC, BMP #### [facility] [address] [place] [address] [place] GFR/1.73 sq M.predicted MDRD (S/P/Bld) [Vol rate/Area] 9.990 mL/min/{1.73_m2} Normal [facility] Comment on above: Performed By: #### C BC, BMP #### [address] Globulin (S) [Mass/Vol] 2.6 g/dL Normal [facility] Comment on above: Performed By: #### C BC, BMP #### [address] Glucose [Mass/Vol] 97 mg/dL Normal 70-100 [facility] Comment on above: Result Comment: [place] Glucose Reference Range is dependent on time and content of last meal. Glucose of more than 200 mg/dL in a nonstressed, ambulatory subject supports the diagnosis of Diabetes Mellitus. ADA recommended reference range Performed By: #### C BC, BMP #### [facility] [address] Potassium [Moles/Vol] 5.0 mmol/L Normal 3.5-5.1 [facility] Comment on above: Performed By: #### C BC, BMP #### [facility] [address] Protein [Mass/Vol] 6.0 g/dL Low 6.4-8.9 [facility] Comment on above: Performed By: #### C BC, BMP #### [place] [address] [place] Sodium [Moles/Vol] 128 mmol/L Low 136-145 [facility] Comment on above: Performed By: #### C BC, BMP #### [facility] [address] Urea nitrogen [Mass/Vol] 98 mg/dL High 03-28 [facility] Comment on above: Performed By: #### C BC, BMP #### [facility] [address] [place] [id number] [place] Creatine Kinaseon 04-28-2023 CK [Catalytic activity/Vol] 398 U/L High [facility] Comment on above: Performed By: #### C BC, BMP #### [address] Creatine kinase [Enzymatic a ctivity/volume] in Serum or PlasmaOrdered By: Dre Cardoza on 04-28-2023 CK [Catalytic activity/Vol] 398 U/L [facility] Creatinine [Mass/volume] in Serum or PlasmaOrdered By: Dre Cardoza on 04-28-2023 Creatinine [Mass/Vol] 6.75 mg/dL 0.70-1.30 [facility] Diff and CBCon 04-28-2023 Band form neutrophils/100 WBC (Bld) 36 % High 0-5 [facility] Comment on above: Performed By: #### C BC, BMP #### [facility] [address] [place] [address] Basophils/100 WBC (Bld) 0 % Normal 0-2 [facility] Comment on above: Performed By: #### C BC, BMP #### [facility] [address] [place] [address] [place] Crenated RBC Slight Normal [facility] Comment on above: Performed By: #### C BC, BMP #### [facility] [address] [place] [address] [place] Eosinophils/100 WBC (Bld) 1 % Normal 1-3 [facility] Comment on above: Performed By: #### C BC, BMP #### [facility] [address] [place] [address] [place] Erythrocyte distribution width (RBC) [Ratio] 13.8 % Normal 12.0-14.8 [facility] Comment on above: Performed By: #### C BC, BMP #### [address] Hematocrit (Bld) [Volume fraction] 31.6 % Low 38.8-50.0 [facility] Comment on above: Performed By: #### C BC, BMP #### [address] Hemoglobin (Bld) [Mass/Vol] 10.0 g/dL Low 13.0-17.0 [facility] Comment on above: Performed By: #### C BC, BMP #### [address] Hypochromasia Slight Normal [facility] Comment on above: Performed By: #### C BC, BMP #### [address] Lymphocytes/100 WBC (Bld) 2 % Low 18-42 [facility] Comment on above: Performed By: #### C BC, BMP #### [address] MCH (RBC) [Entitic mass] 29.4 pg Normal 27.5-35.2 [facility] Comment on above: Performed By: #### C BC, BMP #### [address] MCV (RBC) [Entitic vol] 92.8 fL Normal 83.5-101 [facility] Comment on above: Performed By: #### C BC, BMP #### [address] Mean Corpuscular HGB Conc 31.7 g/dL Low 32.5-35.6 [facility] Comment on above: Performed By: #### C BC, BMP #### [address] Metamyelocytes 5 % High 0-0 [facility] Comment on above: Performed By: #### C BC, BMP #### [address] Monocytes/100 WBC (Bld) 42.47 % High 0.00-20.00 [facility] Comment on above: Result Comment: For adults in ED, MDW > 20.0 may be associated with a higher risk of sepsis during the first 12 hrs of hospital admission The predictive value of MDW for identifying sepsis in patients with hematological abnormalities has not been established Performed By: #### C BC, BMP #### [facility] [address] Monocytes/100 WBC (Bld) 3 % Normal 2-11 [facility] Comment on above: Performed By: #### C BC, BMP #### [address] Platelet Estimate Decreased Normal Normal [facility] Comment on above: Performed By: #### C BC, BMP #### [address] Platelet mean volume (Bld) [Entitic vol] 10.3 fL High 6.6-10.1 [facility] Comment on above: Performed By: #### C BC, BMP #### [address] Platelet Morphology Normal Normal Normal [facility] Comment on above: Result Comment: PERF ORMED BY: [place] [address] PATHOLOGIST C.O.D. BILLER DI CORONEL M.D. Performed By: #### C BC, BMP #### [place] [address] [place] Platelets (Bld) [#/Vol] 80 10*3/uL Low 150-450 [facility] Comment on above: Performed By: #### C BC, BMP #### [place] [address] [place] RBC (Bld) [#/Vol] 3.40 10*6/uL Low 3.90-5.60 [facility] Comment on above: Performed By: #### C BC, BMP #### [facility] [address] Segmented neutrophils/100 WBC (Bld) 53 % Normal 50-70 [facility] Comment on above: Performed By: #### C BC, BMP #### [facility] [address] WBC (Bld) [#/Vol] 19.9 10*3/uL High 4.1-10.5 [facility] Comment on above: Performed By: #### C ERLIN, BMP #### [facility] [address] ECG 12 lead ECGon 04-28-2023 ECG 12 lead ECG [facility] [place] [address] [place] [address] Electrocardiograph Report Signed Patient: Ruddy Palmer MR#: [id number] 9 : 1985 Acct:[id number] Age/Sex: 37 / M ADM Date: 04/28/23 Loc: ER Room: Type: [facility] ER Attending Dr: Ordering Provider: Dre Cardoza MD Date of Service: 04/28/23 ECG/ECG 12 lead ECG: ALTERED MENTAL STATUS Copies to: Test Reason : Blood Pressure : 100/051 mmHG Vent. Rate : 077 BPM Atrial Rate : 077 BPM P-R Int : 154 ms QRS Dur : 104 ms QT Int : 344 ms P-R-T Axes : 082 085 074 degrees QTc Int : 389 ms Normal sinus rhythm Nonspecific ST abnormality Abnormal ECG No previous ECGs available Confirmed by DRE CARDOZA MD ([id number]) on 04/28/2023 2:50:30 PM Referred By: Electronically Signed By:DRE CARDOZA MD Transcribed By: MUS Signed By Dre Cardoza MD 04/28/23 1450 Normal [facility] Eosinophils Auto (Bld) [#/Vo l]Ordered By: Dre Cardoza on 04-28-2023 Eosinophils (Bld) [#/Vol] N/A [facility] Eosinophils/100 WBC Auto (Bl d)Ordered By: Dre Cardoza on 04-28-2023 Eosinophils/100 WBC (Bld) N/A [facility] Eosinophils/100 WBC Manual c nt (Bld)Ordered By: Dre Cardoza on 04-28-2023 Eosinophils/100 WBC (Bld) 1 % 1-3 [facility] Erythrocyte distribution wid th Auto (RBC) [Ratio]Ordered By: Dre Cardoza on 04-28-2023 Erythrocyte distribution width (RBC) [Ratio] 13.8 % 12.0-14.8 [facility] Globulin Calc (S) [Mass/Vol] Ordered By: Dre Cardoza on 04-28-2023 Globulin (S) [Mass/Vol] 2.6 g/dL [facility] Glucose [Mass/volume] in Ser um or PlasmaOrdered By: Dre Cardoza on 04-28-2023 Glucose [Mass/Vol] 97 mg/dL 70-100 [facility] Comment on above: ADA recommended refe rence rangeRandom Glucose Reference Range is dependent on time and content of last meal. Glucose of more than 200 mg/dL in a nonstressed, ambulatory subject supports the diagnosis of Diabetes Mellitus. Hematocrit Auto (Bld) [Volum e fraction]Ordered By: Dre Cardoza on 04-28-2023 Hematocrit (Bld) [Volume fraction] 31.6 % 38.8-50.0 [facility] Hemoglobin [Mass/volume] in BloodOrdered By: Dre Cardoza on 04-28-2023 Hemoglobin (Bld) [Mass/Vol] 10.0 g/dL 13.0-17.0 [facility] Hypochromia LM Ql (Bld)Order ed By: Dre Cardoza on 04-28-2023 Hypochromia Ql (Bld) Slight [facility] INR in Platelet poor plasma by Coagulation assayOrdered By: Dre Cardoza on 04-28-2023 INR Coag (PPP) [Relative time] 1.2 {INR} [facility] Comment on above: INR Therapeutic Rang e A) Pre- and Peroperative OAT started two weeks before surgery. NOT HIP SURGERY: 1.5 - 2.5 HIP SURGERY: 2 - 3B) Primary and secondary prevention of venous THROMBOSIS: 2 - 3C) Active venous thrombosis, pulmonary embolismand prevention of recurrent venous thrombosis: 2 - 3D) Prevention of arterial thromboembolismincluding patients with mechanical heart valves: 3 - 4.5 Laboratory - CoagulationOrde red By: Dre Cardoza on 04-28-2023 PT Coag (PPP) [Time] 14.4 s 9.0-12.9 [facility] Lactate [Moles/volume] in Se rum or PlasmaOrdered By: Dre Cardoza on 04-28-2023 Lactate [Moles/Vol] 1.4 mmol/L 0.5-2.2 [facility] Lactic Acidon 04-28-2023 Lactate [Moles/Vol] 2.5 mmol/L Off scale high 0.5-2.2 [facility] Comment on above: Result Comment: Crit ical Result : Called to and read back by: HUHG ROMAN at: 04/28/2023 14:35:18 by:MLG PERFORMED BY: [phone] PATHOLOGIST C.O.D. BILLER DI CORONEL M.D. Performed By: #### C BC, BMP #### [facility] [address] [place] [address] Lactic Acid Reflexon 023 Lactic Acid Reflex 1.4 mmol/L Normal 0.5-2.2 [facility] Comment on above: Order Comment: RN No tified AB [id number] Result Comment: PERF ORMED BY: [place] [phone] PATHOLOGIST C.O.D. BILLER DI CORONEL M.D. Performed By: #### C UU, URDS #### [facility] [address] [place] [address] Leukocytes [#/volume] correc radha for nucleated erythrocytes in Blood by Automated counOrdered By: Dre Cardoza on 04-28-2023 WBC corrected for nucl RBC Auto (Bld) [#/Vol] 19.9 10*3/uL 4.1-10.5 [facility] Lymphocytes Auto (Bld) [#/Vo l]Ordered By: Dre Cardoza on 04-28-2023 Lymphocytes (Bld) [#/Vol] N/A [facility] Lymphocytes/100 WBC Auto (Bl d)Ordered By: Dre Cardoza on 04-28-2023 Lymphocytes/100 WBC (Bld) N/A [facility] Lymphocytes/100 WBC Manual c nt (Bld)Ordered By: Dre Cardoza on 04-28-2023 Lymphocytes/100 WBC (Bld) 2 % 18-42 [facility] MCH Auto (RBC) [Entitic mass ]Ordered By: Dre Cardoza on 04-28-2023 MCH (RBC) [Entitic mass] 29.4 pg 27.5-35.2 [facility] MCHC Auto (RBC) [Mass/Vol]Or dered By: Dre Cardoza on 04-28-2023 MCHC (RBC) [Mass/Vol] 31.7 g/dL 32.5-35.6 [facility] MCV Auto (RBC) [Entitic vol] Ordered By: Dre Cardoza on 04-28-2023 MCV (RBC) [Entitic vol] 92.8 fL 83.5-101 [facility] Metamyelocytes/100 WBC Manua l cnt (Bld)Ordered By: Dre Cardoza on 04-28-2023 Metamyelocytes/100 WBC (Bld) 5 % 0-0 [facility] Monocyte distribution width [Entitic volume] in Blood by AutomatedOrdered By: Dre Cardoza on 04-28-2023 Monocyte distribution width Auto (Bld) [Entitic vol] 42.47 % 0.00-20.00 [facility] Comment on above: For adults in ED, MD W > 20.0 may be associated with a higher risk of sepsis during the first 12 hrs of hospital admissionThe predictive value of MDW for identifying sepsis in patients with hematological abnormalities has not been established Monocytes Auto (Bld) [#/Vol] Ordered By: Dre Cardoza on 04-28-2023 Monocytes (Bld) [#/Vol] N/A [facility] Monocytes/100 WBC Auto (Bld) Ordered By: Dre Cardoza on 04-28-2023 Monocytes/100 WBC (Bld) N/A [facility] Monocytes/100 WBC Manual cnt (Bld)Ordered By: Dre Cardoza on 04-28-2023 Monocytes/100 WBC (Bld) 3 % 2-11 [facility] Neutrophils Auto (Bld) [#/Vo l]Ordered By: Dre Cardoza on 04-28-2023 Neutrophils (Bld) [#/Vol] N/A [facility] Neutrophils/100 WBC Auto (Bl d)Ordered By: Dre Cardoza on 04-28-2023 Neutrophils/100 WBC (Bld) N/A [facility] No Panel InformationOrdered By: Dre Cardoza on 04-28-2023 Estimated GFR (CKD-EPI) 9.990 mL/Min [facility] Pharmacy Creatinine Clearance (Chem N/A [facility] Nucleated erythrocytes [Pres ence] in Blood by Automated countOrdered By: Dre Cardoza on 04-28-2023 Nucleated RBC Auto Ql (Bld) N/A [facility] Partial Thromboplastin Timeo n 04-28-2023 aPTT Coag (Bld) [Time] 36.0 s Normal 25.1-36.5 [facility] Comment on above: Result Comment: PERF ORMED BY: [place] [address] PATHOLOGIST C.O.D. BILLER DI CORONEL M.D. Performed By: #### C BC, BMP #### [address] Platelet adequacy [Presence] in Blood by Light microscopyOrdered By: Dre Cardoza on 04-28-2023 Platelets LM Ql (Bld) Decreased Normal [facility] Platelet mean volume Auto (B ld) [Entitic vol]Ordered By: Dre Cardoza on 04-28-2023 Platelet mean volume (Bld) [Entitic vol] 10.3 fL 6.6-10.1 [facility] Platelet morphology finding [Identifier] in BloodOrdered By: Dre Cardoza on 04-28-2023 Platelet morphology finding Nom (Bld) Normal Normal [facility] Platelets Auto (Bld) [#/Vol] Ordered By: Dre Cardoza on 04-28-2023 Platelets (Bld) [#/Vol] 80 10*3/uL 150-450 [facility] Potassium [Moles/volume] in Serum or PlasmaOrdered By: Dre Cardoza on 04-28-2023 Potassium [Moles/Vol] 5.0 mmol/L 3.5-5.1 [facility] Protein [Mass/volume] in Ser um or PlasmaOrdered By: Dre Cardoza on 04-28-2023 Protein [Mass/Vol] 6.0 g/dL 6.4-8.9 [facility] Prothrombin Time INRon 04-28 INR Coag (PPP) [Relative time] 1.2 {INR} Normal [facility] Comment on above: Result Comment: INR Therapeutic Range A) Pre- and Peroperative OAT started two weeks before surgery. NOT HIP SURGERY: 1.5 - 2.5 HIP SURGERY: 2 - 3 B) Primary and secondary prevention of venous THROMBOSIS: 2 - 3 C) Active venous thrombosis, pulmonary embolism and prevention of recurrent venous thrombosis: 2 - 3 D) Prevention of arterial thromboembolism including patients with mechanical heart valves: 3 - 4.5 Performed By: #### C ERLIN, SOFÍA #### [facility] [address] PT Coag (PPP) [Time] 14.4 s High 9.0-12.9 [facility] Comment on above: Performed By: #### C ERLIN, SOFÍA #### [facility] [address] [place] [address] RBC Auto (Bld) [#/Vol]Ordere d By: Dre Cardoza on 04-28-2023 RBC (Bld) [#/Vol] 3.40 10*6/uL 3.90-5.60 [facility] RBC morphologyOrdered By: Becky Cardoza on 04-28-2023 RBC morphology finding Nom (Bld) N/A [facility] Segmented neutrophils/100 WB C Manual cnt (Bld)Ordered By: Dre Cardoza on 04-28-2023 Segmented neutrophils/100 WBC (Bld) 53 % 50-70 [facility] Serum or plasma albumin/glob ulin mass ratioOrdered By: Dre Cardoza on 04-28-2023 Albumin/Globulin [Mass ratio] 1.3 {ratio} [facility] Serum or plasma anion gap de terminationOrdered By: Dre Cardoza on 04-28-2023 Anion gap [Moles/Vol] 16.3 mmol/L 6.0-15.0 [facility] Sodium [Moles/volume] in Ser um or PlasmaOrdered By: Dre Cardoza on 08-25-2023 Sodium [Moles/Vol] 128 mmol/L 136-145 [facility] Thyroid Stimulating Hormoneo n 04-28-2023 TSH Qn 1.33 m[IU]/L Normal 0.45-5.33 [facility] Comment on above: Result Comment: PERF ORMED BY: [place] [address] PATHOLOGIST C.O.D. BILLER DI CORONEL M.D. Performed By: #### C ERLIN, BMP #### [facility] [address] [place], [place] [id number] [facility] Thyrotropin [Units/volume] i n Serum or PlasmaOrdered By: Dre Cardoza on 04-28-2023 TSH Qn 1.33 m[IU]/L 0.45-5.33 [facility] Troponin I High Sensitivityo n 04-28-2023 Troponin I High Sensitivity 24.4 pg/mL High 0.0-20.0 [facility] Comment on above: Result Comment: PERF ORMED BY: [place] [address] PATHOLOGIST C.O.D. BILLER DI CORONEL M.D. Performed By: #### C ERLIN, BMP #### [facility] [address] [place] [address] Troponin I.cardiac [Mass/vol ume] in Serum or Plasma by Detection limit <= 0.01 ng/Ordered By: Dre Cardoza on 04-28-2023 Troponin I.cardiac DL <= 0.01 ng/mL [Mass/Vol] 24.4 pg/mL 0.0-20.0 [facility] Urea nitrogen [Mass/volume] in Serum or PlasmaOrdered By: Dre Cardoza on 04-28-2023 Urea nitrogen [Mass/Vol] 98 mg/dL 03-28 [facility] WBC Auto (Bld) [#/Vol]Ordere d By: Dre Cradoza on 04-28-2023 WBC (Bld) [#/Vol] 19.9 10*3/uL 4.1-10.5 [facility] XR chest 1V portableon 04-28 XR chest 1V portable [facility] [place] [address] XRay Report Signed Patient: Ruddy Palmer MR#: [id number] 9 : 1985 Acct:[id number] Age/Sex: 37 / M ADM Date: 04/28/23 Loc: ER Room: Type: PRE ER Attending Dr: Copies to: Dre Cardoza MD Ordering Provider: Dre Cardoza MD Date of Service: 04/28/23 XR/XR chest 1V portable: ALTERED MENTAL STATUS Plain film chest single view HISTORY: Hypotension. Fever. COMPARISON: None FINDINGS: SUPPORT DEVICES: None POSTSURGICAL CHANGES: None HEART: Within normal limits PULMONARY SIRENA: Within normal limits MEDIASTINUM: Unremarkable LUNGS AND PLEURA: No pleural effusion or pneumothorax. Minor interstitial prominence. Left basilar consolidation suggesting subtle infiltrate/atelectasis. BONY STRUCTURES: Intact ADDITIONAL FINDINGS None XR/XR chest 1V portable IMPRESSION: No acute process. Minor interstitial changes with left basilar parenchymal densities suggesting subtle infiltrate/atelectasis. Impression dictated by: Rojas Navarrete M.D.04/28/2023 2:05 PM Dictation Location: [place] [address] Transcribed By: [facility] 04/28/23 140 Dictated By: Rojas Navarrete DO 04/28/23 140 Signed By: 04/28/23 140 [facility] Basic Metabolic Panelon 10-06 Anion gap [Moles/Vol] 12 mmol/L 9 - 17 mmol/L [email or web address] Calcium [Mass/Vol] 9.3 mg/dL 8.6 - 10. 4 mg/dL [email or web address] Chloride [Moles/Vol] 98 mmol/L 98 - 10 7 mmol/L [email or web address] CO2 [Moles/Vol] 27 mmol/L 20 - 31 mmol/L [email or web address] Creatinine [Mass/Vol] 4.16 mg/dL High 0.70 - 1.20 mg/dL [email or web address] GFR/1.73 sq M.predicted MDRD (S/P/Bld) [Vol rate/Area] 18 mL/min/{1.73_m2} Low - PINF [email or web address] Comment on above: These results are not intended for use in patients <18 years of age. eGFR results are calculated without a race factor using the 2020 CKD-EPI equation. Careful clinical correlation is recommended, particularly when comparing to results calculated using previous equations. The CKD-EPI equation is less accurate in patients with extremes of muscle mass, extra-renal metabolism of creatine, excessive creatine ingestion, or following therapy that affects renal tubular secretion. Glucose [Mass/Vol] 101 mg/dL High 70 - 99 mg/dL [facility] Interpretation and review of laboratory results Abnormal [facility] Potassium [Moles/Vol] 4.3 mmol/L 3.7 - 5.3 mmol/L [facility] Sodium [Moles/Vol] 137 mmol/L 135 - 144 mmol/L [facility] Urea nitrogen [Mass/Vol] 55 mg/dL High 6 - 20 mg/dL [facility] DEXTROMETHORPHANon Dextromethorphan 63.7 ng/ml Critically high 2.0 - 6.0 [facility] Comment on above: Result Comment: This test was developed and its performance characteristics determined by [facility]. It has not been cleared or approved by the Food and Drug Administration. Performed By: #### D EXTRO #### [facility] [address] [place] [address] Dr. Hoda Richards BNPon 08-11-2022 Natriuretic peptide B (Bld) [Mass/Vol] 919.0 pg/mL Critically high <=450.0 [facility] Comment on above: Performed By: #### T SH, CMP, T7, LIPID, BNP #### [facility] [address] [place] [address] Dr. Hoda Richards CBC AUTO DIFFon 08-11-2022 BASO # 0.0 103/ul Normal 0.0-0.1 [facility] Comment on above: Performed By: #### C BC #### [facility] [address] [place] [address] Dr. Hoda Richards Basophils/100 WBC (Bld) 0.1 % Critically low 0.2-2.0 [facility] Comment on above: Performed By: #### C BC #### [facility] [address] [place] [address] Dr. Hoda Richards EO # 0.6 103/ul Normal 0.0-0.7 [facility] Comment on above: Performed By: #### C BC #### [facility] [address] [place] [address] Dr. Hoda Richards Eosinophils/100 WBC (Bld) 7.1 % Critically high 0.9-7.0 [facility] Comment on above: Performed By: #### C BC #### [facility] [address] [place] [address] Dr. Hoda Richards Erythrocyte distribution width (RBC) [Ratio] 13.6 % Normal 11.0-15.0 [facility] Comment on above: Performed By: #### C BC #### [facility] [address] [place] [address] Dr. Hoda Richards Hematocrit (Bld) [Volume fraction] 33.8 % Critically low 42.0-54.0 [facility] Comment on above: Performed By: #### C BC #### [facility] [address] [place] [address] Dr. Hoda Richards Hemoglobin (Bld) [Mass/Vol] 10.9 g/dL Critically low 14.0-18.0 [facility] Comment on above: Performed By: #### C BC #### [facility] [address] [place] [address] Dr. Hoda Richards IG # 0.02 10e3/ul Normal 0.00-0.03 [facility] Comment on above: Performed By: #### C BC #### [facility] [address] [place] [address] Dr. Hoda Richards IG % 0.2 % Normal 0.0-0.5 [facility] Comment on above: Performed By: #### C BC #### [facility] [address] [place] [address] Dr. Hoda Richards LYMPH # 2.1 103/ul Normal 1.2-3.8 [facility] Comment on above: Performed By: #### C BC #### [facility] [address] [place] [address] Dr. Hoda Richards Lymphocytes/100 WBC (Bld) 22.9 % Normal 20.5-60.0 [facility] Comment on above: Performed By: #### C BC #### [facility] [address] [place] [address] Dr. Hoda Richards MANUAL DIFF REQ NO Normal [facility] Comment on above: Performed By: #### C BC #### [facility] [address] [place] [address] [address] Hoda Richards MCH (RBC) [Entitic mass] 30.9 pg Normal 25.9-34.0 [facility] Comment on above: Performed By: #### C BC #### [facility] [address] [place] [address] Dr. Hoda Richards MCHC (RBC) [Mass/Vol] 32.2 g/dL Normal 29.9-35.2 [facility] Comment on above: Performed By: #### C BC #### [facility] [address] [place] [address] Dr. Hoda Richards MCV (RBC) [Entitic vol] 95.8 fL Critically high 80.0-94 .0 [facility] Comment on above: Performed By: #### C BC #### [facility] [address] [place] [address] Dr. Hoda Richards MONO # 0.6 103/ul Normal 0.3-0.8 [facility] Comment on above: Performed By: #### C BC #### [facility] [address] [place] [address] Dr. Hoda Richards Monocytes/100 WBC (Bld) 7.0 % Normal 1.7-12.[address] [facility] Comment on above: Performed By: #### C BC #### [facility] [address] [place] [address] Dr. Hoda Richards NEUT # 5.6 103/ul Normal 1.4-6.5 [facility] Comment on above: Performed By: #### C BC #### [facility] [address] [place] [address] Dr. Hoda Richards Neutrophils/100 WBC (Bld) 62.7 % Normal 43.0-75.0 [facility] Comment on above: Performed By: #### C BC #### [facility] [address] [address] [address] Hoda Richards Platelet mean volume (Bld) [Entitic vol] 9.5 fL Normal 9.5-13.5 [facility] Comment on above: Performed By: #### C BC #### [facility] [address] [place] [address] Dr. Hoda Richards PLT 235 103/ul Normal 150-450 [facility] Comment on above: Performed By: #### C BC #### [facility] [address] [address] [address] Hoda Richards RBC 3.53 106/ul Critically low 4.70-6.10 [facility] Comment on above: Performed By: #### C BC #### [facility] [address] [address] [address] Hoda Richards WBC 9.0 103/ul Normal 4.0-11.0 [facility] Comment on above: Performed By: #### C BC #### [facility] [address] [place] [address] Dr. Hoda Richards FREE THYROXINE INDEX T7on FTI 2.38 Normal 1.30-4.50 [facility] Comment on above: Performed By: #### T SH, CMP, T7, LIPID, BNP #### [facility] [address] [place] [address] Dr. Hoda Richards T3U 35.0 % Normal 33.0-40.0 [facility] Comment on above: Performed By: #### T SH, CMP, T7, LIPID, BNP #### [facility] [address] [place] [address] Dr. Hoda Richards T4 [Mass/Vol] 6.80 ug/dL Normal 4.50-12.10 [facility] Comment on above: Performed By: #### T SH, CMP, T7, LIPID, BNP #### [facility] [address] [place] [address] Dr. Hoda Richards GLYCOHEMOGLOBIN A1Con 2021 ADA RECOMMENDATION SEE BELOW Normal [facility] Comment on above: Result Comment: ADA RECOMMENDED LIMIT 4.0 - 6.0 ADA THERAPEUTIC TARGET < 7.0 ACTION SUGGESTED > 7.0 Performed By: #### A 1C #### [facility] [address] [place] [address] Dr. Hoda Richards Glucose [Mass/Vol] 103 mg/dL Normal [facility] Comment on above: Performed By: #### A 1C #### [facility] [address] [place] [address] Dr. Hoda Richards HbA1c (Bld) [Mass fraction] 5.2 % Normal 4.5-6.2 [facility] Comment on above: Performed By: #### A 1C #### [facility] [address] [place] [address] Dr. Hoda Richards IRONon 08-11-2022 Iron [Mass/Vol] 58.0 ug/dL Critically low 65.0-175.[address] [facility] Comment on above: Performed By: #### I RUBÉN #### [facility] [address] [place] [address] Dr. Hoda Richards LIPID PROFILEon 08-11-2022 CHOL-HDL RATIO NORM SEE BELOW Normal [facility] Comment on above: Result Comment: 3.3 - 4.4 LOW RISK 4.4 - 7.1 AVERAGE RISK 7.1 - 11.0 MODERATE RISK >11.0 HIGH RISK Performed By: #### T SH, CMP, T7, LIPID, BNP #### [facility] [address] [place] [address] Dr. Hoda Richards Cholesterol [Mass/Vol] 157 mg/dL Normal <=200 [facility] Comment on above: Performed By: #### T SH, CMP, T7, LIPID, BNP #### [facility] [address] [place] [address] Dr. Hoda Richards Cholesterol in HDL [Mass/Vol] 48 mg/dL Normal 40-60 [facility] Comment on above: Performed By: #### T SH, CMP, T7, LIPID, BNP #### [facility] [address] [address] [address] Hoda Richards Cholesterol in LDL [Mass/Vol] 73.2 mg/dL Normal [facility] Comment on above: Performed By: #### T SH, CMP, T7, LIPID, BNP #### [facility] [address] [address] [address] Hoda Richards Cholesterol.total/Rhiannon sterol in HDL [Mass ratio] 3.3 {ratio} Normal [facility] Comment on above: Performed By: #### T SH, CMP, T7, LIPID, BNP #### [facility] [address] [address] [address] Hoda Richards HDL NORMAL > or = 60 mg/dl - LO W CARDIOVASCULAR RISK <40 mg/dl - HIGH CARDIOVASCULAR RISK Normal [facility] Comment on above: Performed By: #### T SH, CMP, T7, LIPID, BNP #### [facility] [address] [address] [address] Hoda Richards LDL CALC NORMAL SEE BELOW Normal [facility] Comment on above: Result Comment: <100 mg/dl OPTIMAL 100 - 129 mg/dl NEAR OR ABOVE OPTIMAL 130 - 159 mg/dl BORDERLINE HIGH 160 - 189 mg/dl HIGH >190 mg/dl VERY HIGH Performed By: #### T SH, CMP, T7, LIPID, BNP #### [facility] [address] [address] [address] Hoda Richards Triglyceride [Mass/Vol] 179 mg/dL Critically high <=150 [facility] Comment on above: Performed By: #### T SH, CMP, T7, LIPID, BNP #### [facility] [address] [address] [address] Hoda Richards VLDL CALC 35.8 mg/dL Normal [facility] Comment on above: Performed By: #### T SH, CMP, T7, LIPID, BNP #### [facility] [address] [address] [address] Hoda Richards PROF 14(COMP METB)on 022 Albumin [Mass/Vol] 4.0 g/dL Normal 3.4-5.0 [facility] Comment on above: Performed By: #### T SH, CMP, T7, LIPID, BNP #### [facility] [address] [place] [address] Dr. Hoda Richards Albumin/Globulin [Mass ratio] 1.1 {ratio} Normal [facility] Comment on above: Performed By: #### T SH, CMP, T7, LIPID, BNP #### [facility] [address] [place] [address] Dr. Hoda Richards ALP [Catalytic activity/Vol] 126 U/L Critically high 46-116 [facility] Comment on above: Performed By: #### T SH, CMP, T7, LIPID, BNP #### [facility] [address] [place] [address] Dr. Hoda Richards ALT [Catalytic activity/Vol] 24 U/L Normal 16-63 [facility] Comment on above: Performed By: #### T SH, CMP, T7, LIPID, BNP #### [facility] [address] [place] [address] Dr. Hoda Richards Anion gap [Moles/Vol] 14.2 mmol/L Normal [facility] Comment on above: Performed By: #### T SH, CMP, T7, LIPID, BNP #### [facility] [address] [place] [address] Dr. Hoda Richards AST [Catalytic activity/Vol] 18 U/L Normal 15-37 [facility] Comment on above: Performed By: #### T SH, CMP, T7, LIPID, BNP #### [facility] [address] [place] [address] Dr. Hoda Richards Bilirubin [Mass/Vol] 0.3 mg/dL Normal 0.2-1.0 [facility] Comment on above: Performed By: #### T SH, CMP, T7, LIPID, BNP #### [facility] [address] [place] [address] Dr. Hoda Richards Calcium [Mass/Vol] 9.2 mg/dL Normal 8.5-10.1 [facility] Comment on above: Performed By: #### T SH, CMP, T7, LIPID, BNP #### [facility] [address] [place] [address] Dr. Hoda Richards Chloride [Moles/Vol] 102 mmol/L Normal 98-107 [facility] Comment on above: Performed By: #### T SH, CMP, T7, LIPID, BNP #### [facility] [address] [place] [address] Dr. Hoda Richards CO2 [Moles/Vol] 28.1 mmol/L Normal 21.0-32.0 [facility] Comment on above: Performed By: #### T SH, CMP, T7, LIPID, BNP #### [facility] [address] [place] [address] Dr. Hoda Richards Creatinine [Mass/Vol] 3.77 mg/dL Critically high 0.70-1.30 [facility] Comment on above: Performed By: #### T SH, CMP, T7, LIPID, BNP #### [facility] [address] [place] [address] Dr. Hoda Richards EGFR-AF KOSOVAN 22 mL/min/1.73m2 Critically low >=60 [facility] Comment on above: Performed By: #### T SH, CMP, T7, LIPID, BNP #### [facility] [address] [place] [address] Dr. Hoda Richards EGFR-NON AF KOSOVAN 18 mL/min/1.73m2 Critically low >=60 [facility] Comment on above: Performed By: #### T SH, CMP, T7, LIPID, BNP #### [facility] [address] [place] [address] Dr. Hoda Richards Globulin (S) [Mass/Vol] 3.5 g/dL Normal [facility] Comment on above: Performed By: #### T SH, CMP, T7, LIPID, BNP #### [facility] [address] [place] [address] Dr. Hoda Richards Glucose [Mass/Vol] 94 mg/dL Normal 74-106 [facility] Comment on above: Performed By: #### T SH, CMP, T7, LIPID, BNP #### [facility] [address] [address] [address] Hoda Richards Potassium [Moles/Vol] 4.3 mmol/L Normal 3.5-5.1 [facility] Comment on above: Performed By: #### T SH, CMP, T7, LIPID, BNP #### [facility] [address] [address] [address] Hoda Richards Protein [Mass/Vol] 7.5 g/dL Normal 6.4-8.2 [facility] Comment on above: Performed By: #### T SH, CMP, T7, LIPID, BNP #### [facility] [address] [address] [address] Hoda Richards Sodium [Moles/Vol] 140 mmol/L Normal 136-145 [facility] Comment on above: Performed By: #### T SH, CMP, T7, LIPID, BNP #### [facility] [address] [place] [address] Dr. Hoda Richards Urea nitrogen [Mass/Vol] 54.0 mg/dL Critically high 7.0-18.0 [facility] Comment on above: Performed By: #### T SH, CMP, T7, LIPID, BNP #### [facility] [address] [place] [address] Dr. Hoda Richards Urea nitrogen/Creatinine [Mass ratio] 14.3 mg/mg Normal [facility] Comment on above: Performed By: #### T SH, CMP, T7, LIPID, BNP #### [facility] [address] [place] [address] Dr. Hoda Richards TSHon 08-11-2022 TSH 1.682 uIU/mL Normal 0.358-3.74 0 [facility] Comment on above: Performed By: #### T SH, CMP, T7, LIPID, BNP #### [facility] [address] [place] [address] Dr. Hoda Richards POTASSIUM (POC)on 02-04-2022 Interpretation and review of laboratory results Abnormal [facility] Potassium [Moles/Vol] 4.6 mmol/L High 3.5 - 4.5 mmol/L [facility] CHLORIDE (POC)on 01-18-2022 Chloride [Moles/Vol] 105 mmol/L 98 - 10 7 mmol/L [facility] Creatinine W/GFR Point of Ca reon 01-18-2022 Creatinine [Mass/Vol] 3.06 mg/dL High 0.51 - 1.19 mg/dL [facility] GFR Non- 23 mL/min Low >60 [facility] GFR/1.73 sq M.predicted MDRD (S/P/Bld) [Vol rate/Area] 28 mL/min/{1.73_m2} Low >60 [facility] GFR/1.73 sq M.predicted MDRD (S/P/Bld) [Vol rate/Area] [facility] Comment on above: Average GFR for 30-3 9 years old: 107 mL/min/1.73sq m Chronic Kidney Disease: <60 mL/min/1.73sq m Kidney failure: <15 mL/min/1.73sq m eGFR calculated using average adult body mass. Additional eGFR calculator available at: http://www.[employer]/multiple_crcl_2012.htm Hemoglobin and hematocrit, b loodon 01-18-2022 Hematocrit (Bld) [Volume fraction] 38 % Low 41 - 53 % [facility] Hemoglobin (Bld) [Mass/Vol] 12.8 g/dL Low 13.5 - 17.5 g/dL [facility] No Panel Informationon 01-18 Interpretation and review of laboratory results Abnormal [facility] POCT Glucoseon 01-18-2022 Glucose [Mass/Vol] 95 mg/dL 74 - 100 mg/dL [facility] POCT urea (BUN)on 01-18-2022 Urea nitrogen [Mass/Vol] 23 mg/dL 8 - 26 mg/dL [facility] POTASSIUM (POC)on 01-18-2022 Potassium [Moles/Vol] 4.6 mmol/L High 3.5 - 4.5 mmol/L [facility] SODIUM (POC)on 01-18-2022 Sodium [Moles/Vol] 140 mmol/L 138 - 146 mmol/L [facility] VL Upper Extremity Bilateral Venous Duplexon 01-03-2022 [facility] Upper Extremity Vein Mapping and Upper Extremity Vein Mapping Procedure Patient Name SPENCER SIERRA Date of Study 01/03/2022 J Date of 1985 Gender Male Age 36 year(s) Race Room Number OP Corporate ID [id number] # Patient Acct [id number] # MR # [id number] 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 Indications for Study:Pre-op AV fistula. Patient Status:Out Patient. Technical Quality:Adequate visualization. Conclusions Summary Marginal caliber cephalic and basilic veins for fistula on the right Absent cephalic vein on the left. Good caliber basilic vein for transposition on the left. Signature Left Impression: Most portions of the cephalic vein were too small to visualized. Velocities are measured in cm/s ; Diameters are measured in cm Cephalic Mapping + ++--- -----+ +-----++ --------+ +---- ---+ ! !!Right ! !Left !! ! ! ! + ++--- -----+ +-----++ --------+ +---- ---+ !Location !!AP Diam.!Trans Diam!Depth!!AP Diam.!Trans Diam!Depth ! + ++--- -----+ +-----++ --------+ +---- ---+ !Cephalic at UA !!0.26 !0.26 !1.04 !!0.07 !0.07 !0.6 ! + ++--- -----+ +-----++ --------+ +---- ---+ !Cephalic at Mid UA!!0.25 !0.25 !1.38 !! ! ! ! + ++--- -----+ +-----++ --------+ +---- ---+ !Cephalic at AF !!0.27 !0.27 !0.33 !! ! ! ! + ++--- -----+ +-----++ --------+ +---- ---+ !Cephalic at Mid LA!!0.08 !0.08 !0.23 !! ! ! ! + ++--- -----+ +-----++ --------+ +---- ---+ !Cephalic at LA !!0.11 !0.11 !0.22 !!0.06 !0.06 !0.24 ! + ++--- -----+ +-----++ --------+ +---- ---+ Basilic Mapping + ++--- ----+ +-----++ -------+ +---- ---+ ! !!Right ! !Left !! ! ! ! + ++--- ----+ +-----++ -------+ +---- ---+ !Location !!AP Diam!Trans Diam !Depth!!AP Diam!Trans Diam !Depth ! + ++--- ----+ +-----++ -------+ +---- ---+ !Basilic at UA !!0.41 !0.41 !1.1 !!0.7 !0.7 !1.21 ! + ++--- ----+ +-----++ -------+ +---- ---+ !Basilic at Mid UA !!0.22 !0.22 !1.21 !!0.61 !0.61 !1.19 ! + ++--- ----+ +-----++ -------+ +---- ---+ !Basilic at AF !!0.32 !0.32 !0.67 !!0.5 !0.5 !0.71 ! + ++--- ----+ +-----++ -------+ +---- ---+ !Basilic at Mid LA !!0.24 !0.24 !0.28 !!0.22 !0.22 !0.29 ! + ++--- ----+ +-----++ -------+ +---- ---+ !Basilic at LA !!0.18 !0.18 !0.16 !!0.09 !0.09 !0.23 ! 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 Indications for Study:Pre-op AV fistula. Patient Status:Out Patient. Technical Quality:Adequate visualization. Conclusions Summary Marginal caliber cephalic and basilic veins for fistula on the right Absent cephalic vein on the left. Good caliber basilic vein for transposition on the left. Signature Left Impression: Most portions of the cephalic vein were too small to visualized. Velocities are measured in cm/s ; Diameters are measured in cm Cephalic Mapping + ++--- -----+ +-----++ --------+ +---- --- + ! !!Right ! !Left !! ! ! ! + ++--- -----+ +-----++ --------+ +---- --- + !Location !!AP Diam.!Trans Diam!Depth!!AP Diam.!Trans Diam!Depth ! + ++--- -----+ +-----++ --------+ +---- --- + !Cephalic at UA !!0.26 !0.26 !1.04 !!0.07 !0.07 !0.6 ! + ++--- -----+ +-----++ --------+ +---- --- + !Cephalic at Mid UA!!0.25 !0.25 !1.38 !! ! ! ! + ++--- -----+ +-----++ --------+ +---- --- + !Cephalic at AF !!0.27 !0.27 !0.33 !! ! ! ! + ++--- -----+ +-----++ --------+ +---- --- + !Cephalic at Mid LA!!0.08 !0.08 !0.23 !! ! ! ! + ++--- -----+ +-----++ --------+ +---- --- + !Cephalic at LA !!0.11 !0.11 !0.22 !!0.06 !0.06 !0.24 ! + ++--- -----+ +-----++ --------+ +---- --- + Basilic Mapping + ++--- ----+ +-----++ -------+ +---- --- + ! !!Right ! !Left !! ! ! ! + ++--- ----+ +-----++ -------+ +---- --- + !Location !!AP Diam!Trans Diam !Depth!!AP Diam!Trans Diam !Depth ! + ++--- ----+ +-----++ -------+ +---- --- + !Basilic at UA !!0.41 !0.41 !1.1 !!0.7 !0.7 !1.21 ! + ++--- ----+ +-----++ -------+ +---- --- + !Basilic at Mid UA !!0.22 !0.22 !1.21 !!0.61 !0.61 !1.19 ! + ++--- ----+ +-----++ -------+ +---- --- + !Basilic at AF !!0.32 !0.32 !0.67 !!0.5 !0.5 !0.71 ! + ++--- ----+ +-----++ -------+ +---- --- + !Basilic at Mid LA !!0.24 !0.24 !0.28 !!0.22 !0.22 !0.29 ! + ++--- ----+ +-----++ -------+ +---- --- + !Basilic at LA !!0.18 !0.18 !0.16 !!0.09 !0.09 !0.23 ! + ++--- ----+ +-----++ -------+ +---- --- + [employer] Work Phone: [employer] Work Phone: Radiology Study observation (narrative) [facility] Work Phone: Vital Signs Date Time Vital Sign Value Performing Clinician Facility 09-12-2024 18:00-0500 Diastolic blood pressure 73 mm[Hg] Justyn Alvarez MD Work Phone: [facility] [employer] 09-12-2024 18:00-0500 Heart rate 72 /min Justyn Alvarez MD Work Phone: [facility] [employer] 09-12-2024 18:00-0500 SaO2% (BldA) [Mass fraction] 100 % Justyn Alvarez MD Work Phone: [facility] [employer] 09-12-2024 18:00-0500 Systolic blood pressure 160 mm[Hg] Justyn Alvarez MD Work Phone: [facility] [employer] 09-12-2024 14:33-0500 Body temperature 96.8 [degF] Justyn Alvarez MD Work Phone: [email or web address] 09-12-2024 14:33-0500 Respiratory rate 12 /min Justyn Alvarez MD Work Phone: [email or web address] 05-27-2023 17:11-0400 Body mass index (BMI) [Ratio] 18.13 kg/m2 Kostas Roque MD Work Phone: [email or web address] 05-27-2023 17:11-0400 Body temperature 98.1 [degF] Kostas Roque MD Work Phone: [email or web address] 05-27-2023 17:11-0400 Body weight 55.7 kg Kostas Roque MD Work Phone: [email or web address] 05-27-2023 17:11-0400 Diastolic blood pressure 91 mm[Hg] Kostas Roque MD Work Phone: [email or web address] 05-27-2023 17:11-0400 Heart rate 77 /min Kostas Roque MD Work Phone: [email or web address] 05-27-2023 17:11-0400 Respiratory rate 17 /min Kostas Roque MD Work Phone: [email or web address] 05-27-2023 17:11-0400 Systolic blood pressure 153 mm[Hg] Kostas Roque MD Work Phone: [email or web address] 05-27-2023 12:35-0400 SaO2% (BldA) [Mass fraction] 96 % Kostas Roque MD Work Phone: [email or web address] 05-26-2023 23:15-0400 Body height 175.3 cm Kostas Roque MD Work Phone: [email or web address] 05-25-2023 14:30-0400 Body weight 61.69 kg Kostas Wade Other [employer] Other 05-20-2023 15:33-0400 Respiratory rate 20 /min MD Denis Melvin Work Phone: [facility] 05-20-2023 14:34-0400 Heart rate 80 /min MD Denis Melvin Work Phone: [facility] 05-20-2023 08:00-0400 Body temperature 98 [degF] MD Denis Melvin Work Phone: [facility] 05-20-2023 08:00-0400 Diastolic blood pressure 73 mm[Hg] MD Denis Melvin Work Phone: [facility] 05-20-2023 08:00-0400 Inhaled oxygen concentration 40 % MD Denis Melvin Work Phone: [facility] 05-20-2023 08:00-0400 Inhaled oxygen flow rate 3 L/min MD Denis Melvin Work Phone: [facility] 05-20-2023 08:00-0400 SaO2% (BldA) [Mass fraction] 94 % MD Denis Melvin Work Phone: [facility] 05-20-2023 08:00-0400 Systolic blood pressure 129 mm[Hg] MD Denis Melvin Work Phone: [facility] 05-20-2023 06:00-0400 Body weight 62.3 kg MD Denis Melvin Work Phone: [facility] 05-18-2023 12:24-0400 Body height 175.26 cm MD Denis Melvin Work Phone: [facility] 05-17-2023 23:05-0400 Diastolic blood pressure 63 mm[Hg] MD Denis Melvin Work Phone: [facility] 05-17-2023 23:05-0400 Heart rate 88 /min MD Denis Melvin Work Phone: [facility] 05-17-2023 23:05-0400 Respiratory rate 16 /min MD Denis Melvin Work Phone: [facility] 05-17-2023 23:05-0400 SaO2% (BldA) [Mass fraction] 97 % MD Denis Melvin Work Phone: [facility] 05-17-2023 23:05-0400 Systolic blood pressure 122 mm[Hg] MD Denis Melvin Work Phone: [facility] 05-17-2023 21:21-0400 Inhaled oxygen concentration 40 % MD Denis Melvin Work Phone: [facility] 05-17-2023 20:44-0400 Inhaled oxygen flow rate 3 L/min MD Densi Melvin Work Phone: [facility] 05-17-2023 12:34-0400 Body height 175.26 cm MD Denis Melvin Work Phone: [facility] 05-17-2023 12:34-0400 Body temperature 98.8 [degF] MD Denis Melvin Work Phone: [facility] 05-17-2023 12:34-0400 Body weight 63.5 kg MD Denis Melvin Work Phone: [facility] 05-12-2023 16:00-0400 Inhaled oxygen concentration 3 % MD Denis Melvin Work Phone: [facility] 05-12-2023 16:00-0400 Inhaled oxygen flow rate 3 L/min MD Denis Melvin Work Phone: [facility] 05-12-2023 16:00-0400 SaO2% (BldA) [Mass fraction] 96 % MD Denis Melvin Work Phone: [facility] 05-12-2023 14:00-0400 Body temperature 98.5 [degF] MD Denis Melvin Work Phone: [facility] 05-12-2023 14:00-0400 Diastolic blood pressure 76 mm[Hg] MD Denis Melvin Work Phone: [facility] 05-12-2023 14:00-0400 Heart rate 88 /min MD Denis Melvin Work Phone: [facility] 05-12-2023 14:00-0400 Respiratory rate 16 /min MD Denis Melvin Work Phone: [facility] 05-12-2023 14:00-0400 Systolic blood pressure 123 mm[Hg] MD Denis Melvin Work Phone: [facility] 05-12-2023 06:00-0400 Body weight 67.8 kg MD Denis Melvin Work Phone: [facility] 05-10-2023 15:21-0400 Body height 175.26 cm MD Denis Melvin Work Phone: [facility] 05-09-2023 20:28-0400 Diastolic blood pressure 52 mm[Hg] MD Denis Melvin Work Phone: [facility] 05-09-2023 20:28-0400 Heart rate 74 /min MD Denis Melvin Work Phone: [facility] 05-09-2023 20:28-0400 Systolic blood pressure 113 mm[Hg] MD Denis Melvin Work Phone: [facility] 05-09-2023 19:18-0400 Inhaled oxygen flow rate 3 L/min MD Denis Melvin Work Phone: [facility] 05-09-2023 19:18-0400 Respiratory rate 20 /min MD Denis Melvin Work Phone: [facility] 05-09-2023 19:18-0400 SaO2% (BldA) [Mass fraction] 95 % MD Denis Melvin Work Phone: [facility] 05-09-2023 16:02-0400 Body height 175.26 cm MD Denis Melvin Work Phone: [facility] 05-09-2023 16:02-0400 Body temperature 98.4 [degF] MD Denis Melvin Work Phone: [facility] 05-09-2023 16:02-0400 Body weight 67.3 kg MD Denis Melvin Work Phone: [facility] 05-07-2023 15:08-0400 Body temperature 98.5 [degF] MD Denis Melvin Work Phone: [facility] 05-07-2023 15:08-0400 Diastolic blood pressure 68 mm[Hg] MD Denis Melvin Work Phone: [facility] 05-07-2023 15:08-0400 Heart rate 88 /min MD Denis Melvin Work Phone: [facility] 05-07-2023 15:08-0400 Inhaled oxygen flow rate 5 L/min MD Denis Melvin Work Phone: [facility] 05-07-2023 15:08-0400 Respiratory rate 22 /min MD Denis Melvin Work Phone: [facility] 05-07-2023 15:08-0400 SaO2% (BldA) [Mass fraction] 95 % MD Denis Melvin Work Phone: [facility] 05-07-2023 15:08-0400 Systolic blood pressure 112 mm[Hg] MD Denis Melvin Work Phone: [facility] 05-07-2023 12:00-0400 Inhaled oxygen concentration 40 % MD Denis Melvin Work Phone: [facility] 05-07-2023 05:01-0400 Body weight 58.5 kg MD Denis Melvin Work Phone: [facility] 05-05-2023 16:02-0400 Body height 175.26 cm MD Denis Melvin Work Phone: [facility] 04-28-2023 20:00-0400 Body height 175.26 cm MD Denis Melvin Work Phone: [facility] 04-28-2023 20:00-0400 Body temperature 100.3 [degF] MD Denis Melvin Work Phone: [facility] 04-28-2023 20:00-0400 Body weight 63.7 kg MD Denis Melvin Work Phone: [facility] 04-28-2023 20:00-0400 Diastolic blood pressure 65 mm[Hg] MD Denis Melvin Work Phone: [facility] 04-28-2023 20:00-0400 Heart rate 97 /min MD Denis Melvin Work Phone: [facility] 04-28-2023 20:00-0400 Inhaled oxygen flow rate 2 L/min MD Denis Melvin Work Phone: [facility] 04-28-2023 20:00-0400 Respiratory rate 18 /min MD Denis Melvin Work Phone: [facility] 04-28-2023 20:00-0400 SaO2% (BldA) [Mass fraction] 93 % MD Denis Melvin Work Phone: [facility] 04-28-2023 20:00-0400 Systolic blood pressure 104 mm[Hg] MD Denis Melvin Work Phone: [facility] 02-02-2023 16:45-0400 Diastolic blood pressure 99 mm[Hg] Justyn Alvarez MD Work Phone: [facility] [employer] 02-02-2023 16:45-0400 Heart rate 66 /min Justyn Alvarez MD Work Phone: [facility] [employer] 02-02-2023 16:45-0400 Respiratory rate 0 /min Justyn Alvarez MD Work Phone: [facility] [employer] 02-02-2023 16:45-0400 SaO2% (BldA) [Mass fraction] 95 % Justyn Alvarez MD Work Phone: [facility] [employer] 02-02-2023 16:45-0400 Systolic blood pressure 134 mm[Hg] Justyn Alvarez MD Work Phone: [facility] [employer] 10-27-2022 12:45-0500 Heart rate 58 /min Justyn Alvarez MD Work Phone: [facility] [employer] 10-27-2022 12:45-0500 Respiratory rate 18 /min Justyn [facility]varez [facility] 10-27-2022 12:45-0500 SaO2% (BldA) [Mass fraction] 96 % Justyn Alvarez MD [facility] 10-27-2022 10:37-0500 Body height 175.3 cm Justyn Alvarez MD [facility] 10-27-2022 10:37-0500 Body mass index (BMI) [Ratio] 20.12 kg/m2 Justyn Alvarez MD [facility] 10-27-2022 10:37-0500 Body temperature 97.59 [degF] Justyn Alvarez MD [facility] 10-27-2022 10:37-0500 Body weight 61.8 kg Justyn Alvarez MD Work Phone: [facility] [employer] 10-27-2022 10:37-0500 Diastolic blood pressure 92 mm[Hg] Justyn Alvarez MD Work Phone: [facility] [employer] 10-27-2022 10:37-0500 Systolic blood pressure 137 mm[Hg] Justyn Alvarez MD [facility] 08-18-2022 11:06-0500 Diastolic blood pressure 85 mm[Hg] Justyn Alvarez MD Work Phone: [facility] [employer] 08-18-2022 11:06-0500 Heart rate 63 /min Justyn Alvarez MD Work Phone: [facility] [employer] 08-18-2022 11:06-0500 SaO2% (BldA) [Mass fraction] 98 % Justyn Alvarez MD Work Phone: [facility] [employer] 08-18-2022 11:06-0500 Systolic blood pressure 128 mm[Hg] Justyn Alvarez MD Work Phone: [facility] [employer] 08-18-2022 10:54-0500 Respiratory rate 16 /min Justyn Alvarez MD Work Phone: [facility] 08-18-2022 09:12-0500 Body height 175.3 cm Justyn Alvarez MD Work Phone: [facility] 08-18-2022 09:12-0500 Body mass index (BMI) [Ratio] 20.12 kg/m2 Justyn Alvarez MD Work Phone: [facility] [employer] 08-18-2022 09:12-0500 Body temperature 98.1 [degF] Justyn Alvarez MD Work Phone: [facility] 08-18-2022 09:12-0500 Body weight 61.8 kg Justyn Alvarez MD Work Phone: [facility] 02-04-2022 11:54-0400 Body temperature 97.59 [degF] [facility] [employer] 02-04-2022 11:54-0400 Diastolic blood pressure 87 mm[Hg] [facility] 02-04-2022 11:54-0400 Heart rate 56 /min St[facility] [employer] 02-04-2022 11:54-0400 Respiratory rate 16 /min [facility] [employer] 02-04-2022 11:54-0400 SaO2% (BldA) [Mass fraction] 98 % St[facility] [email or web address] 02-04-2022 11:54-0400 Systolic blood pressure 144 mm[Hg] Stv A [facility] [employer] 01-18-2022 12:35-0400 Diastolic blood pressure 69 mm[Hg] Justyn Alvarez MD [facility] 01-18-2022 12:35-0400 Heart rate 57 /min Justyn Alvarez MD Work Phone[facility] 01-18-2022 12:35-0400 Respiratory rate 11 /min Justyn Alvarez MD Work Phone: [facility] 01-18-2022 12:35-0400 SaO2% (BldA) [Mass fraction] 100 % Jusytn Alvarez MD Work Phone: [facility] 01-18-2022 12:35-0400 Systolic blood pressure 127 mm[Hg] Justyn Alvarez MD Work Phone: [facility] Encounters Encounter Date Encounter Type Care Provider Facility Start: 09-12-2024 End: 09-12-2024 ambulatory JUSTYN ALVAREZ [facility] Start: 09-12-2024 End: 09-12-2024 Subsequent hospital visit by physician Justyn Alvarez MD Work Phone: [facility] Comment on above: 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); S/P arteriovenous (AV) fistula creation Start: 08-14-2024 End: 08-14-2024 Refill Coty Marvin MD Work Phone: [facility] 111 Comment on above: Agitation; Pseudobulbar affect Start: 07-16-2024 End: 07-16-2024 Refill Josue Key MD Work Phone[facility] Comment on above: History of pulmonary embolism Start: 05-21-2024 End: 05-21-2024 ambulatory DENIS MELVIN [facility] Start: 08-29-2023 End: 08-29-2023 ambulatory COTY MARVIN Not Available Start: 05-30-2023 End: 05-30-2023 ambulatory Kostas Wade Facility:[facility] Start: 05-30-2023 End: 05-30-2023 ambulatory MD Denis Melvin Work Phone: [facility] Work Phone: Start: 05-30-2023 End: 05-30-2023 Patient encounter procedure MD Denis Melvin Work Phone: [facility] Work Phone: Start: 05-26-2023 End: 05-27-2023 Emergency department patient visit Kostas Roque MD Work Phone: [facility] Comment on above: Problem with vascula r access (Primary Dx); AV graft thrombosis, initial encounter (HCC); Malfunction of arteriovenous graft, initial encounter (HCC); Cognitive developmental delay; Cerebral palsy, unspecified type (HCC) Start: 05-25-2023 End: 05-25-2023 ambulatory Kostas Wade Other [place] [facility] Other Start: 05-25-2023 Office outpatient vi sit 25 minutes Kostas Wade [facility] Infectious Disease Start: 05-17-2023 End: 05-20-2023 Evaluation and management of inpatient Jessica Macdonald Facility:[facility] Start: 05-17-2023 End: 05-20-2023 Evaluation and management of inpatient MD Denis Melvin Work Phone: [facility] Work Phone: Start: 05-09-2023 End: 05-12-2023 Evaluation and management of inpatient Aziz Bakhous Facility:[facility] Start: 05-09-2023 End: 05-12-2023 Evaluation and management of inpatient MD Denis Melvin Work Phone: [facility] Work Phone: Start: 04-28-2023 End: 05-07-2023 Evaluation and management of inpatient Melina Jose Facility:[facility] Start: 04-28-2023 End: 05-07-2023 Evaluation and management of inpatient MD Denis Melvin Work Phone: [facility] Work Phone: Start: 02-02-2023 End: 02-02-2023 Subsequent hospital visit by physician Justyn Alvarez MD Work Phone: [facility] Start: 10-27-2022 End: 10-27-2022 Subsequent hospital visit by physician Justyn Alvarez MD Work Phone: [facility] Start: 08-18-2022 End: 08-18-2022 Subsequent hospital visit by physician Justyn Alvarez MD Work Phone: [facility] Start: 08-11-2022 End: 08-12-2022 ambulatory COTY RUBIN Facility: Start: 02-04-2022 End: 02-04-2022 Subsequent hospital visit by physician [facility] [employer] Specialist Rm A [facility] [employer] Comment on above: Arrived Start: 01-18-2022 End: 01-18-2022 Subsequent hospital visit by physician Justyn Alvarez MD Work Phone: [facility] Start: 01-03-2022 End: 01-04-2022 ambulatory JUST[facility]VAREZ [facility] Start: 01-03-2022 End: 01-03-[address] [facility] Start: 01-03-2022 End: 01-03-2022 Subsequent hospital visit by physician [facility] Rm [facility] Comment on above: ESRD (end stage tavia l disease) on dialysis (HCC); Preop testing Start: 11-23-2017 End: 11-24-2017 Ambulatory DEFAULT PHYSICIAN Facility:[facility] Procedures Date Procedure Procedure Detail Performing Clinician Start: 09-12-2024 CATH HEMO INTERFACE Migel mike Alvarez MD Work Phone: Start: 09-12-2024 CREATININE W/GFR POI NT OF CARE Justyn Alvarez MD Work Phone: Start: 09-12-2024 Gluc bld gluc mntr d ev cleared fda spec home use Justyn Alvarez MD Work Phone: Start: 09-12-2024 LACTIC ACID,POINT OF CARE Justyn Alvarez MD Work Phone: Start: 09-12-2024 Potassium [Moles/vol ume] in Serum or Plasma Justyn Alvarez MD Work Phone: Start: 09-12-2024 Sodium [Moles/volume ] in Serum or Plasma Justyn Alvarez MD Work Phone: Start: 09-12-2024 CATH HEMO INTERFACE Migel Alvarez MD Work Phone: Start: 05-27-2023 INVASIVE VASCULAR PROCEDURE Cindy Love MD Work Phone: Start: 05-27-2023 Radiologic examinati on ankle 2 views Beronica Malik MD Work Phone: Start: 05-27-2023 CATH HEMO INTERFACE Amirah Love MD Work Phone: Start: 05-27-2023 BASIC METABOLIC PANE L W/ REFLEX TO MG FOR LOW K Anabell Alvarez 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 BILLER DI CORONEL M.D. Start: 05-17-2023 Plain chest X-ray MD Gutierres Work Phone: Start: 05-17-2023 Blood culture for ba cteria, including anaerobic screen MD Denis Melvin Work Phone: Start: 05-09-2023 Antibody screen Jessica cavazos Comment on above: Order Comment: Trans fuse now? Y Number of units to transfuse now? 1 Transfuse now? Y Number of units to transfuse now? 2 Result Comment: PERF ORMED BY: [facility] [address] [place] [address] PATHOLOGIST C.O.D. BILLER DI CORONEL M.D. Start: 05-09-2023 Plain chest X-ray MD Gutierres Work Phone: Start: 05-09-2023 Blood culture for ba cteria, including anaerobic screen MD Denis Melvin Work Phone: Start: 05-05-2023 Antibody screen Lennyhossein Grant marcelocarlito Comment on above: Order Comment: Trans fuse now? Y Number of units to transfuse now? 1 Result Comment: PERF ORMED BY: [facility] [address] [place] [address] PATHOLOGIST C.O.D. BILLER DI CORONEL M.D. Start: 05-04-2023 Insertion of periphe rally inserted central catheter MD Denis Melvin Work Phone: Start: 05-03-2023 Plain chest X-ray MD Gutierres Work Phone: Start: 05-01-2023 Blood culture for ba cteria, including anaerobic screen MD Denis Melvin Work Phone: Start: 05-01-2023 Screening for occult blood in feces MD Denis Melvin Work Phone: Start: 05-01-2023 CT of abdomen and pe lvis without contrast MD Denis Melvin Work Phone: Start: 04-29-2023 Urine culture MD Yuly Melvin Work Phone: Start: 04-28-2023 Plain chest X-ray MD Gutierres Work Phone: Start: 10-27-2022 End: 10-27-2022 Intro cath dialysis circuit dx angrph fluor s&i Justyn Alvarez MD Work Phone: Start: 10-27-2022 Basic metabolic pane l calcium total Alexis Doll MD Work Phone: Start: 02-04-2022 Potassium [Moles/vol ume] in Serum or Plasma Cindy Love MD Work Phone: Start: 01-18-2022 Chloride [Moles/volu me] in Serum or Plasma Justyn Alvarez MD Work Phone: Start: 01-18-2022 CREATININE W/GFR POI NT OF CARE Justyn Alvarez MD Work Phone: Start: 01-18-2022 Gluc bld gluc mntr d ev cleared fda spec home use Justyn Alvarez MD Work Phone: Start: 01-18-2022 Potassium [Moles/vol ume] in Serum or Plasma Justyn Alvarez MD Work Phone: Start: 01-18-2022 Sodium [Moles/volume ] in Serum or Plasma Justyn Alvarez MD Work Phone: Start: 01-03-2022 Dup-scan xtr veins c omplete bilateral study Justyn Alvarez MD Work Phone: Plan of Treatment Date Care Activity Detail Author Start: 2034 Shingles vaccine (1 of 2) Shingles vaccine (1 of 2) [facility] Start: 10-29-2024 End: 10-29-2024 Patient encounter procedure 10/29/2024 3:45 PM EST Office Visit [facility] [address] [place] [address] Coty Marvin MD [address] [facility] [address] [place] [address] [facility] Start: 08-12-2024 End: 08-12-2024 Telemedicine consultation with patient 08/12/2024 2:00 PM EST Telemedicine [facility] [address] [place] [address] Josue Key MD [address] [place], [place] [id number] [facility] Start: 08-10-2024 Adult BMI Screening Adult BMI Screening [facility] Start: 08-10-2024 Tobacco Screening Tobacco Screening [facility] Start: 05-05-2024 COVID-19 Vaccine ( season) [facility] Start: 05-05-2024 Influenza vaccination [facility] Start: 04-04-2024 Influenza vaccination Flu [facility] (#1[facility] Start: 10-27-2023 GFR test (Diabetes, CKD 3-4, OR last GFR 15-59) GFR test (Diabetes, CKD 3-4, OR last GFR 15-59) [facility] Start: 07-31-2023 Annual Wellness Visit (Medicare) Annual Wellness Visit (Medicare) [facility] Start: 05-20-2023 [facility] Start: 05-18-2023 Referral to vascular surgeon [facility] Start: 05-18-2023 Blood chemistry [facility] Start: 05-18-2023 Ultrasonography of arteriovenous fistula US AV Fistula [facility] Start: 05-18-2023 [facility] Start: 05-17-2023 Consultation [facility] Start: 05-17-2023 Physical therapy procedure [facility] Start: 05-17-2023 Referral to occupational therapist [facility] Start: 05-17-2023 Referral to milk driver [facility] Start: 05-17-2023 Hospital admission [facility] Start: 05-17-2023 End: 05-17-2023 [facility] Start: 05-17-2023 Bacteria identified in Blood by Culture Blood Culture [facility] Start: 05-17-2023 Blood culture for bacteria, including anaerobic screen Blood Culture [facility] Start: 05-17-2023 Performance of Urinary Filtration, Intermittent, Less than 6 Hours Per Day Performance of Urinary Filtration, Intermittent, Less than 6 Hours Per Day [facility] Start: 05-12-2023 [facility] Start: 05-11-2023 Referral to tree chipper [facility] Start: 05-10-2023 Comprehensive metabolic 2000 panel - Serum or Plasma [facility] Start: 05-10-2023 End: 05-10-2023 [facility] Start: 05-09-2023 [facility] Start: 05-09-2023 Referral to milk driver [facility] Start: 05-09-2023 Referral to speech and language therapy service [facility] Start: 05-09-2023 Physical therapy procedure [facility] Start: 05-09-2023 Referral to occupational therapist [facility] Start: 05-09-2023 Hospital admission [facility] Start: 05-09-2023 [facility] Start: 05-09-2023 Bacteria identified in Blood by Culture [facility] Start: 05-09-2023 Blood culture for bacteria, including anaerobic screen Blood Culture [facility] Start: 05-09-2023 Performance of Urinary Filtration, Intermittent, Less than 6 Hours Per Day Performance of Urinary Filtration, Intermittent, Less than 6 Hours Per Day [facility] Start: 05-07-2023 [facility] Start: 05-06-2023 Referral to tree chipper [facility] Start: 05-05-2023 [facility] Start: 05-03-2023 Blood chemistry [facility] Start: 05-02-2023 Blood chemistry [facility] Start: 05-01-2023 Administration of prophylactic treatment [facility] Start: 05-01-2023 Physical therapy procedure [facility] Start: 05-01-2023 Blood chemistry [facility] Start: 05-01-2023 [facility] Start: 04-30-2023 Referral to palliative care physician [facility] Start: 04-30-2023 Blood chemistry [facility] Start: 04-30-2023 End: 04-30-2023 [facility] Start: 04-29-2023 Referral to infectious diseases physician [facility] Start: 04-29-2023 Blood chemistry [facility] Start: 04-29-2023 [facility] Start: 04-28-2023 [facility] Start: 04-28-2023 Hospital admission [facility] Start: 04-28-2023 Referral to milk driver [facility] Start: 04-28-2023 Bacteria identified in Blood by Culture Blood Culture [facility] Start: 04-28-2023 Insertion of Infusion Device into Superior Vena Cava, Percutaneous Approach Insertion of Infusion Device into Superior Vena Cava, Percutaneous Approach [facility] Start: 04-28-2023 Performance of Urinary Filtration, Intermittent, Less than 6 Hours Per Day Performance of Urinary Filtration, Intermittent, Less than 6 Hours Per Day [facility] Start: 04-28-2023 [facility] Start: 04-28-2023 Bacteria identified in Urine by Culture [facility] Start: 04-04-2023 Influenza vaccination [facility] Start: 02-02-2023 End: 02-02-2023 Angiography extremity unilateral rs&i ANGIOGRAM Malfunction of arteriovenous dialysis fistula, initial encounter ([facility]) 02/02/2023 3:20 PM EDT [facility] Start: 05-12-2022 Creatinine measurement Creatinine [facility] Start: 05-12-2022 Potassium [Moles/volume] in Serum or Plasma Potassium [facility] Start: 05-05-2022 Influenza vaccination Flu vaccine (Season Ended) [facility] Start: 04-04-2022 Influenza vaccination Flu vaccine (#1) [facility] Start: 02-07-2022 End: 02-07-2022 Patient encounter procedure 02/07/2022 Office Visit Vascular Surgery Justyn Alvarez MD [address] [place] [id number] [facility] Start: 01-18-2022 End: 01-18-2022 Admission to same day surgery center 01/18/2022 Surgery IP Unit Justyn Alvarez MD [address] [address] [address] [place], [place] [id number] UPPER EXTREMITY AV FISTULA CREATION VS AV GRAFT [facility] Comment on above: UPPER EXTREMITY AV FISTULA CREATION VS A V GRAFT Start: 01-18-2022 Subsequent hospital visit by physician 01/18/2022 Hospital Encounter IP Unit Justyn Alvarez MD [address] [address] [address] [place], [place] [id number] [facility] Start: 01-18-2022 End: 01-18-2022 AV FISTULA CREATION [facility] Start: 2003 Shingles vaccine (1 of 2) Shingles vaccine (1 of 2) [facility] Start: 2002 Hepatitis C screening Hepatitis C screen [facility] Start: 1999 HIV screening HIV screen [facility] Start: 04-09-1999 DTaP,Tdap and Td Vaccines (6 - Tdap) DTaP,Tdap and Td Vaccines (6 - Tdap) [facility] Start: 04-09-1999 DTaP/Tdap/Td vaccine (6 - Tdap) DTaP/Tdap/Td vaccine (6 - Tdap) [facility] Start: 1997 Varicella vaccine (1 of 2 - 13+ 2-dose series) Varicella vaccine (1 of 2 - 13+ 2-dose series) [facility] Start: 1996 Depression Screen Depression Screen [facility] Start: 1996 Depression Screening Depression Screening [facility] Start: 1990 Pneumococcal 0-64 years Vaccine (1 - PCV) Pneumococcal 0-64 years Vaccine (1 - PCV) [facility] Start: 1990 Pneumococcal 0-64 years Vaccine (1 of 2 - PCV) Pneumococcal 0-64 years Vaccine (1 of 2 - PCV) [facility] Start: 1989 COVID-19 Vaccine (1) COVID-19 Vaccine (1) [facility] Start: 1985 Varicella vaccine (1 of 2 - 2-dose childhood series) Varicella vaccine (1 of 2 - 2-dose childhood series) [facility] Start: 03-21-1985 COVID-19 Vaccine (#1) COVID-19 Vaccine (#1) [facility] Adult NIV/Positive A irway Pressure Adult NIV/Positive Airway Pressure Respiratory Care Routine Every 4hr until discontinued starting 05/27/2023 [facility] Comment on above: Every 4hr until discontinued starting Bacteria identified in Blood by Culture [facility] End: 02-04-2022 Catheterization and angiography procedure details panel [facility] Work Phone: Comment on above: One Time for 1 Occurrences starting 0 11/2021 until 02/04/2022 End: 08-18-2022 Catheterization and angiography procedure details panel Cardiac Catheterization Cardiac Cath Routine One Time for 1 Occurrences starting 08/18/2022 until 08/18/2022 [facility] Phone: Comment on above: One Time for 1 Occurrences starting 08/04 until 08/18/2022 End: 10-27-2022 Catheterization and angiography procedure details panel Diagnostic Cardiac [employer] Specialist Procedure Cardiac Cath Routine One Time for 1 Occurrences starting 10/27/2022 until 10/27/2022 [facility] Phone: Comment on above: One Time for 1 Occurrences starting 10/06 until 10/27/2022 End: 02-02-2023 Catheterization and angiography procedure details panel [facility] Phone: Comment on above: One Time for 1 Occurrences starting 09/2022 until 02/02/2023 Continuous pulse oximetry Pulse oximetry, continuous Respiratory Care Routine Every 4hr until discontinued starting 05/27/2023 [email or web address] Comment on above: Every 4hr until discontinued starting End: 05-27-2023 Hemodialysis Hemodialysis Dialysis Routine One Time for 1 Occurrences starting 05/27/2023 until 05/27/2023 [email or web address] Comment on above: One Time for 1 Occurrences starting 05/06 until 05/27/2023 Initiate ED RT Bronc hospasm Protocol Initiate ED RT Bronchospasm Protocol Respiratory Care Routine Daily until discontinued starting 05/26/2023 [email or web address] Comment on above: Daily until discontinued starting 2022 End: 01-18-2022 INITIATE PACU OXYGEN THERAPY PROTOCOL Initiate PACU Oxygen Therapy Protocol Respiratory Care Routine Continuous until discontinued starting 01/18/2022 [employer] Phone: Comment on above: Continuous until discontinued starting 0 01/18/2022 End: 05-27-2023 INITIATE PACU OXYGEN THERAPY PROTOCOL Initiate PACU Oxygen Therapy Protocol Respiratory Care Routine Continuous until discontinued starting 05/27/2023 [email or web address] Comment on above: Continuous until discontinued starting 0 05/27/2023 Intermittent pulse oximetry Puls e Oximetry Spot Check Respiratory Care Routine As Needed until discontinued starting 05/26/2023 [email or web address] Comment on above: As Needed until discontinued starting Oxygen therapy [Mini mum Data Set] Initiate Oxygen Therapy Protocol Respiratory Care Routine As Needed until discontinued starting 02/04/2022 [email or web address] Work Phone: Comment on above: As Needed until discontinued starting Oxygen therapy [Mini mum Data Set] Initiate Oxygen Therapy Protocol Respiratory Care Routine As Needed until discontinued starting 08/18/2022 [email or web address] Work Phone: Comment on above: As Needed until discontinued starting Oxygen therapy [Mini mum Data Set] Initiate Oxygen Therapy Protocol Respiratory Care Routine As Needed until discontinued starting 02/02/2023 [email or web address] Work Phone: Comment on above: As Needed until discontinued starting Oxygen therapy [Mini mum Data Set] Initiate Oxygen Therapy Protocol Respiratory Care Routine As Needed until discontinued starting 02/02/2023 [email or web address] Work Phone: Comment on above: As Needed until discontinued starting Oxygen therapy [Mini mum Data Set] Initiate Oxygen Therapy Protocol Respiratory Care Routine As Needed until discontinued starting 05/26/2023 [email or web address] Work Phone: Comment on above: As Needed until discontinued starting Oxygen therapy [Mini mum Data Set] Initiate Oxygen Therapy Protocol Respiratory Care Routine As Needed until discontinued starting 09/12/2024 [employer] Comment on above: As Needed until discontinued starting Patient Education Anemia of Infl ammation (DC) Chronic Kidney Disease (DC) Normocytic Normochromic Anemia (DC) [facility] Work Phone: Patient referral [facility] Work Phone: End: 02-04-2022 POC CHEMISTRY (NA,K,ICA,GLU,CALC HCT/HGB,LACTATE,CREA,CL) POC CHEMISTRY (NA,K,ICA,GLU,CALC HCT/HGB,LACTATE,CREA,CL) Point of Care Testing STAT One Time for 1 Occurrences starting 02/04/2022 until 02/04/2022 [facility] Work Phone: Comment on above: One Time for 1 Occurrences starting 11/2021 until 02/04/2022 End: 09-12-2024 POC CHEMISTRY (NA,K,ICA,GLU,CALC HCT/HGB,LACTATE,CREA,CL) POC CHEMISTRY (NA,K,ICA,GLU,CALC HCT/HGB,LACTATE,CREA,CL) Point of Care Testing Routine One Time for 1 Occurrences starting 09/12/2024 until 09/12/2024 [facility] Comment on above: One Time for 1 Occurrences starting 05/2025 until 09/12/2024 End: 05-27-2023 Wound ostomy eval and treat Wound ostomy eval and treat Wound Ostomy Routine One Time for 1 Occurrences starting 05/27/2023 until 05/27/2023 [facility] Comment on above: One Time for 1 Occurrences starting 05/06 until 05/27/2023 [facility] Immunizations Immunization Date Immunization Notes Care Provider [facility] 08-01-2022 COVID-19 mRNA Bivale nt Booster (Pfizer) MD Denis Melvin Work Phone: [facility] 07-01-2022 influenza virus vaccine, unspecified formulation Josue Key MD Work Phone: [employer] 09-01-2021 COVID-19 mRNA Bivale nt Booster (Moderna) MD Denis Melvin Work Phone: [facility] 10-29-2020 COVID-19 mRNA-1273 (Moderna) MD Denis Melvin Work Phone: [facility] 10-01-2020 COVID-19 mRNA-1273 (Moderna) MD Denis Melvin Work Phone: [facility] Payers Date Payer Category Payer Self-pay 2017 Medicaid [id number] 2004 Medicare [id number] 1984 Unknown [id number] 2.16.8 [id number] 1984 Unknown [id number] 2.16.84 [id number] 1984 Unknown [id number] 2.16.84 [id number] 1984 Unknown [id number] 1984 Unknown [id number] 2.16. [id number] 1984 Unknown [id number] 2.16. [id number] 1984 Unknown [id number] 2.16. [id number] 1959 Medicaid [id number]. [id number] 1960 Medicare [id number] Unknown Unknown [id number] 2.16.8 [id number] Unknown [id number] 2.16.8 [id number] Unknown [id number] 2.16.8 [id number] Unknown [id number] 2.16.8 [id number] Social History Date Type Detail Facility Start: 01-03-2022 End: 08-18-2022 Tobacco smoking status NHIS Never smoked tobacco [facility] Start: 01-03-2022 End: 08-18-2022 Tobacco use and exposure Smokeless tobacco non-user [employer] Phone: Start: 01-03-2022 End: 09-12-2024 Alcohol intake Lifetime non-drinker (finding) [employer] Phone: Start: 1985 Sex Assigned At Not on file [employer] Work Phone: Start: 01-08-2022 End: 10-27-2022 Exposure to SARS-CoV-2 (event) Not sure [employer] Phone: Start: 04-28-2023 End: 05-06-2023 Tobacco smoking status NHIS Unknown if ever smoked [facility] Start: 1985 Sex Assigned At Male [facility] Start: 05-27-2023 End: 08-05-2023 Sex Assigned At [facility] Start: 05-27-2023 End: 08-05-2023 History of Social function [facility] Do you belong to any clubs or organizations such as synagogue groups, unions, fraternal or athletic groups, or school groups? No [facility] Are you now , , , , never or living with a partner? Never [facility] How often to you hav e a drink containing alcohol? Never [facility] Average Number of Drinks Not on file [facility] Do you feel stress - tense, restless, nervous, or anxious, or unable to sleep at night because your mind is troubled all the time - these days [OSQ] Not at all [facility] Start: 04-09-2015 Sex Male (finding) [facility] Start: 04-01-2021 Gender identity Identifies as male gender (finding) [facility] Start: 01-27-2023 Alcohol Comment Caffeine: none [facility] (I/We) worried whegenaro er (my/our) food would run out before (I/we) got money to buy more. Never true [facility] Procedure Code Equipment Code Equipment Origin al Text Equipment Identifier Dates Graft Vasc L40cm Dia6mm Bov Car Art Cllgn For Func Had Accs - [id number] Start: 01-18-2022 Graft Vasc L300m m Od4-7mm Univ Eptfe Str Std Wall Tapr - [id number] , [id number] FDA Start: 06-13-2023 Goals Date Patient Goal Desired Activity /State Personal health goal Comment on above: Formatting of this n ote might be different from the original. Evaluation of progress towards goal: Pts family plan for pt to discharge home with family support; decline need for home care services. Functional Status Date Assessment Result Facility 05-20-2023 Functional status Patient at [facility] Work Phone: 05-12-2023 Functional status Patient at [facility] Work Phone: 05-07-2023 Functional status Patient is Pro gressing Toward Baseline [facility] Work Phone: 04-28-2023 Functional status Patient at [facility] Work Phone: Mental Status Date Assessment Result Facility 05-20-2023 Cognitive function Cognitive Sta tus Patient at Baseline [facility] Work Phone: 05-12-2023 Cognitive function Cognitive Sta tus Patient at Baseline [facility] Work Phone: 05-07-2023 Cognitive function Cognitive Sta tus Patient at Baseline [facility] Work Phone: 04-28-2023 Cognitive function Cognitive Sta tus Patient at Baseline [facility] Work Phone: Clinical Notes 2018 to 09-12-2024 Laith Huston RN - 09/12/2024 6:22 PM Laith Gómez RN - 09/12/2024 6:11 PM ESTLaith Huston RN - 09/12/2024 5:11 PM ESTFrida Doan RN - 09/12/2024 2:17 PM ESTDischarge Instructions Note Date & Type Note Facility 09-12-2024 History of Presen t illness Narrative Discharge instructions given to care givers Patient walked to restroom. Patient voids large amount Received post procedure Patient admitted, consent signed and questions answered. Patient ready for procedure. Call light to reach with side rails up 2 of 2. Family and guardian at bedside with patient. History and physical needed. documented in this encounter [facility] 09-12-2024 Hospital Discharg e instructions Carlos Lima DO - 09/12/2024 4:32 PM EST Vascular Surgery Patient Discharge Instructions Discharged To: Home RESUME ACTIVITY: WOUND CARE: Suture to be removed in 1-2 weeks. Can be removed at dialysis clinic BATHING: no restrictions. DRIVING: No restrictions RETURN TO WORK: No restrictions WALKING: Yes LIFTING: No restrictions DIET: Ok to resume regular diet. MEDICATIONS: Take medications as prescribed by physician. If prescribed narcotic medications (Congers, Percocet, or Roxicodone) attempt to wean off medications as soon as possible. FOLLOW UP: Call and make appointment to follow up in vascular surgery clinic as needed. SPECIAL INSTRUCTIONS: Ok to use left upper extremity AV graft for dialysis. documented in this encounter [facility] 05-27-2023 History of Presen t illness Narrative Discharge instructions given to mom. Dialysis Post Treatment Note Vitals: 05/27/23 1711 BP: (!) 153/91 Pulse: 77 Resp: 17 Temp: 98.1 F (36.7 C) SpO2: Pre-Weight = 56.6kg Post-weight = Weight - Scale: 122 lb 12.7 oz (55.7 kg) Total Liters Processed = Blood Volume Processed (Liters): 75.32 L Rinseback Volume (mL) = Rinseback Volume (ml): 250 ml Net Removal (mL) = 1200 Type of access used=Perm catheter Length of [id number] Patient tolerated treatment well. Patient seen in dialysis, tolerating treatment well. No overt concerns noted. Tunnel catheter works well. Orders were discussed with dialysis staff. Dialysis Time Out To be done by RN and tech or 2 RNs Staff Names Oxana FALL & Camille GUERRERO [x] Identity of the patient using 2 patient identifiers [x] Consent for treatment [x] Equipment-proper machine and dialyzer [x] B-Hep B status [x] Orders- to include bath, blood flow, dialyzer, time and fluid removal [x] Access-Correct site and in working order [x] Time for patient to ask questions. Images from the original note were not included. Division of Vascular Surgery Progress Note History of Present Illness: Ruddy Palmer is a 37 y.o. gentleman who presents with thrombosed LUE AV graft. Plan for OR today for thrombectomy and fistulagram. Pt was seen and examined at bedside this morning. No acute events overnight. Mother is at bedside. She denies any complaints from the patient at this time. Physical Exam: Vitals: BP 131/65 Pulse 68 Temp 97.9 F (36.6 C) (Axillary) Resp 18 Ht 5' 9 (1.753 m) Wt 135 lb 4.8 oz (61.4 kg) SpO2 96% BMI 19.98 kg/m Physical Exam Vitals and nursing note reviewed. Constitutional: General: He is sleeping. Appearance: Normal appearance. He is not ill-appearing or toxic-appearing. HENT: Head: Normocephalic and atraumatic. Nose: Nose normal. Mouth/Throat: Mouth: Mucous membranes are moist. Pharynx: Oropharynx is clear. Cardiovascular: Rate and Rhythm: Normal rate and regular rhythm. Pulses: Normal pulses. Comments: Left upper extremity AV graft noted. Absent thrill, nonpulsatile. Suspect thrombosis. Pulmonary: Effort: Pulmonary effort is normal. Abdominal: General: Abdomen is flat. Musculoskeletal: General: No swelling or deformity. Skin: General: Skin is warm and dry. Neurological: Mental Status: He is easily aroused. Imaging/Labs: 37-year-old male with thrombosis of left upper extremity AV graft. Assessment and Plan: -Plan for open lobectomy of left upper extremity AV graft with completion fistulogram this morning. The procedure, risk, benefits, alternatives, and expected outcomes were discussed with the patient's mother who is at bedside. All questions were answered. Written consent was obtained. -Plan for dialysis afterwards [facility] Office: [phone] Email: [email or web address] attestation - Cindy Love MD - 05/27/2023 12:09 PM EDT Images from the original note were not included. ATTENDING ATTESTATION: I personally examined Ruddy Palmer today and confirmed the pertinent history, exam and medical decision making in the resident's note. Please note there may be additional comments below. Additional Comments: Unsuccessful thrombectomy of AV graft, tunneled dialysis catheter placed. Ok to undergo dialysis with catheter and discharge afterwards. Plan for new access creation in the next 1-2 weeks as outpatient. [facility] O: C: Email: [email or web address] NOTE: The electrolyte replacement protocol for potassium/magnesium has been discontinued per P&T guidelines because the patient has reduced renal function (CrCl < 30 mL/min). The patient's most recent potassium & magnesium levels are: Recent Labs 05/26/23 1620 K 4.6 Estimated Creatinine Clearance: 15 mL/min (A) (based on SCr of 5.9 mg/dL (HH)). For patients with decreased renal function (below 30ml/min) needing potassium/magnesium supplementation, please order individual bolus doses with appropriate monitoring. Please contact the inpatient pharmacy with any concerns. Thank you. Images from the original note were not included. Pharmacist Review and Automatic Dose Adjustment of Prophylactic Enoxaparin Reviewed reason(s) for admission/hospital problem list The reviewing pharmacist has made an adjustment to the ordered enoxaparin dose or converted to UFH per the approved [facility] protocol and table as identified below. Ruddy Palmer is a 37 y.o. male. Recent Labs 05/26/23 1620 CREATININE 5.9* Estimated Creatinine Clearance: 15 mL/min (A) (based on SCr of 5.9 mg/dL (HH)). Recent Labs 05/26/23 1620 HGB 10.3* HCT 35.1* PLT 212 No results for input(s): INR in the last 72 hours. Height: Ht Readings from Last 1 Encounters: 10/27/22 5' 9 (1.753 m) Weight: Wt Readings from Last 1 Encounters: 05/26/23 141 lb (64 kg) Plan: Based upon the patient's weight and renal function Ordered: Enoxaparin 40mg SUBQ Daily Changed/converted to New Order: Heparin 5,000 units SUBQ TID Thank you, Carlos Petersen RPH 05/26/2023, 9:53 PM documented in this encounter [facility] 05-27-2023 Hospital course Narrative Images from the original note were not included. [facility] Office: [phone] Les Geiger DO, Tank Heard DO, Bright Rollins DO, Rojas Alex DO, Malachi Lemons MD, Andressa Stewart MD, Urvashi Rebollar MD, Reema Booker MD, Chaz Armstrong MD, Cindy Galvan MD, Chivo Lara DO, Eber Garcia MD, Tamica Kaur DO, Migel Huff MD, Bandar Mccurdy MD, Kostas Geiger DO, Beronica Malik MD, Shaggy Lei DO, Aniya Fish MD, Archana Lal MD, Gisella Irving MD, Ángel Wadsworth MD, Aquilino Mallory MD, Elsy Wynne MD, Mayuri Le MD, Abner Morales MD, Juve Moeller DO, Victorino Bruno MD, Jason Brwon MD, Quang Grande MD, Christina Landis CNP, Nadya Schultz CNP,, Spencer Valencia CNP, Mimi Bridges, CARMELLA, Muriel Mcfarland CNP, Gerri Roth CNP, Stefany Méndez [employer], Elvira Stuart, [employer] SUPERVISOR, Ashley Mendes CNP, Felipa Stern CNP, Nevin Ovalle, FRANCHESCA, Thelma Navarrete CNP, Anabell Alvarez, BEATRICE [facility] Discharge Summary Patient ID: Ruddy Palmer : 1985 ACCOUNT: [id number] Patient Location : Patient's PCP: Denis Melvin MD Admit Date: 05/26/2023 Discharge Date: 05/27/23 Length of Stay: 0 Code Status: Full Code Admitting Physician: Bandar Mccurdy MD Discharge Physician: Urvashi Rebollar MD Active Discharge Diagnosis : Primary Problem Problem with vascular access Hospital Problems Active Hospital Problems Diagnosis Date Noted E-coli UTI [N39.0, B96.20] 05/27/2023 Acute on chronic respiratory failure with hypoxia ([facility]) [J96.21] 05/27/2023 RILEY (obstructive sleep apnea) [G47.33] 05/27/2023 Cognitive developmental delay [F81.9] 05/27/2023 Cerebral palsy (HCC) [G80.9] 05/27/2023 ESRD (end stage renal disease) ([facility]) [N18.6] 05/27/2023 Anemia, chronic disease [D63.8] 05/27/2023 Problem with vascular access [Z78.9] 05/26/2023 AV graft thrombosis, initial encounter ([facility]) [T82.868A] 05/26/2023 Admission Condition: fair Discharged Condition: stable Hospital Stay: Hospital Course: Ruddy Palmer is a 37 y.o. male who was admitted for the management of Problem with vascular access , presented to ER with Vascular Access Problem Patient had thrombosed AV fistula . He has known H/O ESRD on hemodialysis, Cerebral Palsy. He was recently admitted at [facility] for HCAP and discharged on Ertepenem for home Via PICC line. Patient underwent surgery for open thrombectomy and AV graft was non salvageable. Tunneled catheter was placed and patient had hemodialysis . Patient was advised to continue Etepenem as previously prescribed and follow up with ID and PCP. PICC line will need to removed once antibiotics completed. Significant therapeutic interventions: Open thrombectomy of Left AV graft Tunneled catheter placement Hemodialysis Significant Diagnostic Studies: Labs / Micro:/Radiology Recent Labs 05/27/23 0634 05/26/23 1620 WBC 6.7 8.6 HGB 11.3* 10.3* HCT 38.3* 35.1* MCV 101.6 100.3 PLT 210 212 Latest Ref Rng & Units 05/27/2023 6:34 AM 05/26/2023 4:20 PM 10/27/2022 12:34 PM Labs Renal BUN 6 - 20 mg/dL 45 43 55 Cr 0.7 - 1.2 mg/dL 6.1 5.9 4.16 K 3.7 - 5.3 mmol/L 4.5 4.6 4.3 Na 135 - 144 mmol/L 139 136 137 Lab Results Component Value Date ALT 7 05/26/2023 AST 8 05/26/2023 ALKPHOS 106 05/26/2023 BILITOT 0.2 (L) 05/26/2023 No results found for: TSHFT4 , TSH No results found for: HAV , HEPAIGM , HEPBIGM , HEPBCAB , HBEAG , HEPCAB No results found for: VOL , APPEARANCE , COLORU , LABSPEC , LABPH , LEUKBLD , NITRU , GLUCOSEU , KETUA , UROBILINOGEN , BILIRUBINUR , OCBU No results found for: LABA1C No results found for: EAG Lab Results Component Value Date INR 0.9 05/27/2023 PROTIME 12.4 05/27/2023 XR ANKLE RIGHT (2 VIEWS) Result Date: 05/27/2023 No acute findings. XR FOOT RIGHT (2 VIEWS) Result Date: 05/27/2023 No acute findings. , Consultations: Consults: Final Specialist Recommendations/Findings: IP CONSULT TO VASCULAR SURGERY IP CONSULT TO HOSPITALIST IP CONSULT TO PHARMACY The patient was seen and examined on day of discharge and this discharge summary is in conjunction with any daily progress note from day of discharge. Discharge plan: Disposition: Home with home Health Physician Follow Up: PCP Denis Melvin MD No follow-up provider specified. Requiring Further Evaluation/Follow Up POST HOSPITALIZATION/Incidental Findings: IV antibiotics Diet: Activity: limited Instructions to Patient: follow up with vascular Discharge Medications: Medication List CONTINUE taking these medications acetaminophen 500 MG tablet Commonly known as: TYLENOL Take 2 tablets by mouth every 8 hours as needed for Pain bumetanide 2 MG tablet Commonly known as: BUMEX busPIRone 10 MG tablet Commonly known as: BUSPAR clonazePAM 0.5 MG tablet Commonly known as: KLONOPIN dilTIAZem 30 MG tablet Commonly known as: CARDIZEM ipratropium 0.02 % nebulizer solution Commonly known as: ATROVENT levalbuterol 1.25 MG/3ML nebulizer solution Commonly known as: XOPENEX magnesium oxide 400 (241.3 Mg) MG Tabs tablet Commonly known as: MAG-OX metoprolol tartrate 25 MG tablet Commonly known as: LOPRESSOR Nuedexta 20-10 MG Caps per capsule Generic drug: dextromethorphan-quiNIDine omeprazole 20 MG delayed release capsule Commonly known as: PRILOSEC tavia-bety Tabs sildenafil 20 MG tablet Commonly known as: REVATIO STOP taking these medications apixaban 2.5 MG Tabs tablet Commonly known as: ELIQUIS Time Spent on discharge is 33 mins in patient examination, evaluation, counseling as well as medication reconciliation, prescriptions for required medications, discharge plan and follow up. Electronically signed by Urvashi Rebollar MD 05/27/[address] Denis Melvin MD for the opportunity to be involved in this patient's care. documented in this encounter [facility] 05-27-2023 Hospital Discharg e instructions Urvashi Rebollar MD - 05/27/2023 5:01 PM EDT Continuity of Care Form Patient Name: Ruddy Palmer : 1985 Admit date: 05/26/2023 Discharge date: Code Status Order: Full Code Advance Directives: Admitting Physician: Bandar Mccurdy MD PCP: Denis Melvin MD Discharging Nurse: Discharging Hospital Unit/Room#: 0441/0441-01 Discharging Unit Phone Number: Emergency Contact: Extended Emergency Contact Information Primary Emergency Contact: Ernesto Lackey Mobile Relation: Parent Secondary Emergency Contact: Fabby Lackey Relation: Parent Past Surgical History: Past Surgical History: Procedure Laterality Date CENTRAL VENOUS CATHETER for dialysis DIALYSIS FISTULA CREATION Left 01/18/2022 LEFT UPPER EXTREMITY AV FISTULA GRAFT CREATION, 6MM X 44CM ARTEGRAFT performed by Justyn Alvarez MD at [facility] CVOR DIALYSIS FISTULA CREATION Left 08/18/2022 LEFT UPPER EXTREMITY FISTULAGRAM performed by Justyn Alvarez MD at [facility] CVOR FISTULAGRAM Left 08/18/2022 FISTULAGRAM Left FISTULAGRAM Left 10/27/2022 left upper extremity fistulagram with angioplasty of av fistula performed by Justyn Alvarez MD at [facility] CVOR HERNIA REPAIR X3 OTHER SURGICAL HISTORY multiple cleaning ear canals OTHER SURGICAL HISTORY Left 01/18/2022 Left AV fistula TONSILLECTOMY VASCULAR SURGERY Left 02/02/2023 UPPER EXTREMITY FISTULAGRAM with balloon angioplasty of fistula. performed by Justyn Alvarez MD at [facility] Immunization History: There is no immunization history on file for this patient. Active Problems: Patient Active Problem List Diagnosis Code Stenosis of AV fistula, initial encounter ([facility]) T82.858A Problem with vascular access Z78.9 AV graft thrombosis, initial encounter ([facility]) T82.868A E-coli UTI N39.0, B96.20 Acute on chronic respiratory failure with hypoxia ([facility]) J96.21 RILEY (obstructive sleep apnea) G47.33 Cognitive developmental delay F81.9 Cerebral palsy ([facility]) G80.9 ESRD (end stage renal disease) ([facility]) N18.6 Anemia, chronic disease D63.8 Isolation/Infection: Isolation No Isolation Patient Infection Status None to display Nurse Assessment: Last Vital Signs: BP (!) 141/88 Pulse 82 Temp 98 F (36.7 C) Resp 15 Ht 5' 9 (1.753 m) Wt 128 lb 12 oz (58.4 kg) SpO2 96% BMI 19.01 kg/m Last documented pain score (0-10 scale): Last Weight: Wt Readings from Last 1 Encounters: 05/27/23 128 lb 12 oz (58.4 kg) Mental Status: {IP PT MENTAL STATUS:} IV Access: { JOANNE IV ACCESS:731156756} Nursing Mobility/ADLs: Walking {CHP DME ADLs:850615333} Transfer {CHP DME ADLs:849638752} Bathing {CHP DME ADLs:856141377} Dressing {CHP DME ADLs:871528822} Toileting {CHP DME ADLs:981423136} Feeding {CHP DME ADLs:874028403} Candy Decorator {CHP DME ADLs:155568619} Med Delivery { JOANNE MED Delivery:075720240} Wound Care Documentation and Therapy: Puncture 08/18/22 Brachial (Active) Number of days: 282 Puncture 10/27/22 Brachial (Active) Number of days: 212 Puncture 02/02/23 Elbow (Active) Number of days: 114 Incision 01/18/22 Brachial Anterior;Distal;Left (Active) Number of days: 494 Incision 01/18/22 Brachial Anterior;Left (Active) Number of days: 494 Incision 05/27/23 Radial Left;Proximal (Active) Dressing Status Clean;Dry;Intact 05/27/23 1200 Dressing/Treatment Dry dressing 05/27/23 1200 Drainage Amount None (dry) 05/27/23 1200 Number of days: 0 Elimination: Continence: Bowel: {YES / NO:} Bladder: {YES / NO:} Urinary Catheter: {Urinary Catheter:321983496} Colostomy/Ileostomy/Ileal Conduit: {YES / NO:} Date of Last BM: Intake/Output Summary (Last 24 hours) at 05/27/2023 1701 Last data filed at 05/27/2023 1120 Gross per 24 hour Intake 500 ml Output -- Net 500 ml No intake/output data recorded. Safety Concerns: { JOANNE Safety Concerns:967851307} Impairments/Disabilities: { JAONNE Impairments/Disabilities:368683 273} Nutrition Therapy: Current Nutrition Therapy: { JOANNE Diet List:390523955} Routes of Feeding: {[facility] Other Feedings:014139149} Liquids: {[facility] liquid thickness:12869} Daily Fluid Restriction: {[facility] DME Yes amt example:790078129} Last Modified Barium Swallow with Video (Video Swallowing Test): {Done Not Done Date:} Treatments at the Time of Hospital Discharge: Respiratory Treatments: Oxygen Therapy: {Therapy; copd oxygen:80744} Ventilator: { CC Vent List:963862217} Rehab Therapies: {THERAPEUTIC INTERVENTION:0729824747} Weight Bearing Status/Restrictions: {[facility] Weight Bearin} Other Medical Equipment (for information only, NOT a DME order): {EQUIPMENT:925870156} Other Treatments: Patient's personal belongings (please select all that are sent with patient): {[facility] DME Belongings:953050066} RN SIGNATURE: {Esignature:463159440} CASE MANAGEMENT/SOCIAL WORK SECTION Inpatient Status Date: Readmission Risk Assessment Score: Readmission Risk Risk of Unplanned Readmission: 0 Discharging to Facility/ Agency Name: Address: Phone: Fax: Dialysis Facility (if applicable) Name: Address: Dialysis Schedule: Phone: Fax: [employer]er/Independent Driver signature: {Belengnature:936510800} PHYSICIAN SECTION Prognosis: Guarded Condition at Discharge: Stable Rehab Potential (if transferring to Rehab): Guarded Recommended Labs or Other Treatments After Discharge: PT, Line care . Home antibiotics Remove PICC line once antibiotics completed. Physician Certification: I certify the above information and transfer of Ruddy Palmer is necessary for the continuing treatment of the diagnosis listed and that he requires Home Care for less 30 days. Update Admission H&P: No change in H&P PHYSICIAN SIGNATURE: documented in this encounter [facility] 05-25-2023 Evaluation note Encounter Date Diagnosis Assessment Notes May, Bacteremia (ICD-10 - R78.81) Patient's PSA was quite elevated when he was hospitalized as were treating him with a prolonged treatment course given concern for prostate being the source. Follow-up PSA to be done next week sometime. Antibiotics he has approximately 10 to 14 days left and he is tolerating ertapenem. He is having some loose stools but does not appear to be uncomfortable. Patient's mom as well as telephone recorder states he is doing quite well otherwise. Will await PSA today determine true stop date of IV antibiotic as sometimes prostate sources need to be treated with longer courses of antibiotics May, Unspecified Escherichia coli [E. coli] as the cause of diseases classified elsewhere (ICD-10 - B96.20) May, Bacterial infection, unspecified (ICD-10 - A49.9) May, Extended spectrum beta lactamase (ESBL) resistance (ICD-10 - Z16.12) May, Prostate enlargement (ICD-10 - N40.0) May, Receiving intravenous antibiotic treatment at home (ICD-10 - Z79.2) [employer] Other 09-16-2023 Progress note Author Melina Garcia [facility] May 20, 2023 1:40pm Note Date/Time May 20, 2023 1:39pm [facility] [address] [place], [place] [id number] Nephrology Progress Note Signed Patient: Ruddy Palmer MR#: [id number] : 1985 Acct:[id number] Age/Sex: 37 / M Adm Date: 3 Loc: Room: [address] [place] [address] Type: ADM IN Attending Dr: Rajendra Pierce MD Copies to: ~ Date of Service: 05/20/2023 Subjective Subjective Narrative: This is a 37-year-old male with a medical history of cerebral palsy, infantile intracranial hemorrhage, hypertension, blindness, deafness, chronic respiratory failure on home oxygen, pulm hypertension, history of PE on Eliquis ,ESRD on hemodialysis was brought into the emergency room for generalized weakness. On evaluation emergency room patient had a ABG which showed pH 7.11 PCO2 70.8 PO2 79.9 bicarb 22.1. His chest x-ray showed no acute finding. Patient was placed on BiPAP due to the hypercapnic respiratory failure. Patient has a ESRD due to the solitary kidney and septic induced MCKENNA. He has been on dialysis for more than 2 years and currently goes to the [facility] twice a week schedule Monday and Monday. He currently has AV fistula and was found to have a weak thrill on admission. He had ultrasound of the fistula which showed low blood flow with multiple stenosis. Nephrology is consulted for his ESRD management during the hospital stay. Interval history Patient was seen and examined at bedside in his room. He is on nasal oxygen. Patient appears to be his baseline. Patient is nonverbal. He had hemodialysis yesterday and tolerated well. Exam Physical Exam Vital Signs: Temp Pulse Resp BP Pulse Ox O2 Del Method O2 Flow Rate 98.0 F 68 16 129/73 94 L Nasal Cannula 3 05/20/23 08:00 05/20/23 08:00 05/20/23 08:00 05/20/23 08:00 05/20/23 08:00 05/20/23 08:00 05/20/23 08:00 FiO2 40 05/20/23 08:00 Narrative: General: Appears comfortable and not in distress Heart: S1-S2, no rub Lung: Bilateral air entry, no wheezing or crackles Abdomen: Soft, positive bowel sounds Extremities: No edema, no cyanosis Head: Atraumatic, normocephalic Ear: No external ear redness or tenderness Eyes: No pallor or redness Neck: No JVD or visible mass Skin: No rashes , warm to touch 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: Nonverbal, 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 Objective Intake and Output I&O: Intake & Output 05/17/23 05/18/23 05/19/23 05/20/23 23:59 23:59 23:59 23:59 Intake Total 100 / 100 700 / 700 1680 / 1680 100 / 100 Output Total 500 / 500 1499 / 1499 Balance 100 / 100 200 / 200 181 / 181 100 / 100 Weight 65.1 kg 67.7 kg 64.4 kg 62.3 kg Meds and Allergies Meds: Active Medications Acetaminophen (Acetaminophen 325 Mg Tablet) 650 mg PO Q6HR PRN PRN Reason: Pain Scale 1 - 3 or fever Stop: 05/16/24 22:34 Bumetanide (Bumetanide 2 Mg Tablet) 2 mg PO SuTuWeThSa@0900 [facility] Stop: 05/17/24 08:59 Last Admin: 05/20/23 09:14 Dose: 2 mg Clonazepam (Clonazepam 0.25 Mg Tablet) 0.25 mg PO TID PRN PRN Reason: anxiety Stop: 11/13/23 22:49 Darbepoetin Tatianna (Darbepoetin Tatianna In Polysorbat 60 Mcg/Ml Vial) 60 mcg IV-PUSHFr@0900 [facility] Stop: 05/18/24 08:59 Last Admin: 05/19/23 10:07 Dose: 60 mcg Diltiazem HCl (Diltiazem 30 Mg Tablet) 30 mg PO TID [facility] Stop: 05/16/24 22:49 Last Admin: 05/20/23 09:14 Dose: 30 mg Heparin Sodium (Porcine) (Heparin 10,000 Unit/10 Ml Vial) 2,000 unit IV PRN PRN PRN Reason: Dialysis Stop: 05/18/24 07:46 Heparin Sodium (Porcine) (Heparin 10,000 Unit/10 Ml Vial) 1,000 unit IV PRN PRN PRN Reason: Dialysis Stop: 05/18/24 07:46 Ertapenem 0.5 gm/ Sodium (Chloride) 100 mls @ 200 mls/hr IV Q24H PENNY Stop: 05/17/24 18:59 Last Infusion: 05/19/23 18:38 Dose: Infused Sodium Chloride (0.9% Sodium Chloride 1,000 Ml) 1,000 mls @ 0 mls/hr MISCELLANE.Q0M PRN PRN Reason: Dialysis Stop: 05/18/24 07:46 Last Infusion: 05/19/23 10:09 Dose: Infused Ipratropium [place] (Ipratropium [place] 0.5 Mg/2.5 Ml Vial.Neb) 0.5 mg INHALATION TID [facility] Stop: 05/16/24 22:59 Last Admin: 05/20/23 07:33 Dose: 0.5 mg Levalbuterol HCl (Levalbuterol Hcl *Nf* 1.25 Mg/3 Ml Vial.Neb) 1.25 mg INHALATION TID [facility]; Protocol Stop: 05/16/24 22:59 Last Admin: 05/20/23 07:32 Dose: 1.25 mg Metoprolol Tartrate (Metoprolol Tartrate 25 Mg Tablet) 25 mg PO BID PENNY Stop: 05/16/24 22:49 Last Admin: 05/20/23 09:14 Dose: 25 mg Non-Formulary Medication (Maltodextrin) 1 each PO DAILY PENNY Stop: 05/17/24 08:59 Non-Formulary Medication (Dextromethorphan-Quinidine [Nuedexta]) 1 cap PO Q12H PENNY Stop: 05/16/24 22:59 Pantoprazole Sodium (Pantoprazole 40 Mg Tablet.Dr) 40 mg PO DAILY PENNY Stop: 05/18/24 08:59 Last Admin: 05/20/23 09:14 Dose: 40 mg Sildenafil Citrate (Sildenafil Citrate 20 Mg Tablet) 20 mg PO TID PENNY Stop: 05/16/24 22:49 Last Admin: 05/20/23 09:14 Dose: 20 mg Sodium Chloride (Sodium Chloride 0.9 % 10 Ml Syringe) 0 ml IV-PUSH QSHIFT PENNY Stop: 05/17/24 13:59 Last Admin: 05/19/23 22:08 Dose: 10 ml Sodium Chloride (Sodium Chloride 0.9 % 10 Ml Syringe) 0 ml IV-PUSH PRN PRN PRN Reason: Flush Stop: 05/18/24 07:46 Last Admin: 05/19/23 18:09 Dose: 10 ml Vitamin B Complex/Vit C/Folic Acid (Folic Acid/Vit Bcomp,C 1 Tab Tablet) 1 tab PO QHS PENNY Stop: 05/17/24 21:59 Last Admin: 05/19/23 22:07 Dose: 1 tab Allergies ciprofloxacin [From Cipro] Allergy (Verified 05/17/23 12:29) Hives latex Allergy (Verified 05/17/23 12:29) Hives Results Labs 05/18/23 04:15 05/20/23 05:00 Labs: 05/20/23 05:00 BUN 21 D Creatinine 3.76 H D Radiology Impressions Impressions - last 24 hours: Any impression(s) listed above is documentation that was entered by the reading physician into a diagnostic report(s) for Ruddy Palmer. I have reviewed the report(s) and am incorporating any findings in the treatment plan of this patient where applicable. A&P - Nephrology Assessment/Plan (1) Acute hypercapnic respiratory failure: Assessment/Problem Details: Patient was found to have acute hypercapnic hayder failure and currently on BiPAP.. Pulmonary has been consulted currently on BiPAP. (2) ESRD (end stage renal disease) on dialysis: Assessment/Problem Details: He has ESRD due to the solitary kidney and failure to recovery after septic shock induced MCKENNA. He currently goes to the [facility] twice a week schedule. (3) Dialysis AV fistula malfunction: Assessment/Problem Details: His AV fistula showed low blood flow with multiple stenosis. (4) Anemia of renal disease: Assessment/Problem Details: Hemoglobin is within the goal. He currently receives Mircera with hemodialysis. (5) Secondary hyperparathyroidism: Assessment/Problem Details: He has a secondary hyperparathyroidism due to the ESRD. He currently on IV Hectorol with dialysis. (6) Prostatitis: Assessment/Problem Details: He is recently diagnosed to have prostatitis currently on IV ertapenem. Plan * No need for dialysis today. Next dialysis will be on Monday. * Will continue IV Zemplar with hemodialysis. * Will continue Aranesp once weekly with hemodialysis while he is inpatient. * Vascular surgery consult appreciated recommended fistulogram inpatient versus outpatient. Documented By: Melina Garcia MD 05/20/2337 Signed By: <Electronically signed by Melina Garcia MD> 05/20/23 1340 [facility] Work Phone: 1([phone]) 867-426909-16-2023 Progress note Author Rajendra Pierce [facility] May 20, 2023 11:45am Note Date/Time May 20, 2023 11:45am [facility] [address] [place] [id number] Progress Note Signed Patient: Ruddy Palmer MR#: [id number] : 1985 Acct:[id number] Age/Sex: 37 / M Adm Date: 3 Loc: 4P Room: [address] [place] [address] Type: ADM IN Attending Dr: Rajendra Pierce MD Copies to: ~ Date of Service: 05/20/2023 Progress Narrative Note PROGRESS NOTE Progress Note: I called his mom Fabby and gave her update on his condition, status and tx plan. I answered all other questions. Fabby is appreciative of the care that her sonhad received here at [facility]. Documented By: Rajendra Pierce MD 05/20/23 114 Signed By: <Electronically signed by Rajendra Pierce MD> 05/20/23 1145 [facility] Work Phone: 1(472) 613-672809-16-2023 Discharge summary Author Rajendra Pierce [facility] May 20, 2023 11:43am Note Date/Time May 20, 2023 11:40am [facility] [address] [place] [address] Discharge Summary Signed Patient: Ruddy Palmer MR#: [id number] : 1985 Acct:[id number] Age/Sex: 37 / M Adm Date: 3 Loc: 4P Room: [address] [place] [address]: Rajendra Pierce MD Copies to: MD Rajendra Rutledge MD~ Providers Date of Discharge: 05/20/23 Discharging Provider: Rajendra Pierce Primary Care Provider: Denis Melvin Consults: 05/17/23 22:35 Consult to Nephrology Routine 05/17/23 22:40 Consult to Occupational Therapy Routine Consult to Physical Therapy Routine 05/17/23 23:09 Consult to Pulmonology Routine 05/18/23 14:10 Consult to Vascular Surgery Routine Discharge Diagnosis (1) Acute hypercapnic respiratory failure: (2) ESRD (end stage renal disease): (3) Anemia of renal disease: (4) Secondary hyperparathyroidism: (5) ESRD (end stage renal disease) on dialysis: (6) Cerebral palsy: (7) E coli bacteremia: Final Diagnosis Final Discharge Diagnosis: As listed above and others that are not listed Summary Hospital Course Hospital course: Mr. Palmer is a 37-year-old gentleman who is known to have cerebral palsy, blindness, deafness, bedbound status and significant cognitive and functional disability. He is known to have end-stage renal disease on hemodialysis. Patient came in with lethargy and change in mental status. He was found to haverecurrent hypercapnic respiratory failure requiring the use of BiPAP. Patient had improvement and resolution of the change in mental status with BiPAPand the correction of his high hypercapnia. Patient was seen by pulmonology team. Given his recurrent episodes of hypercapnia, pulmonary team recommended initiation of noninvasive ventilation athome. This was arranged and ready to be delivered to his home. The plan is to teach his mom how to operate the machine at home. Patient had received hemodialysis without any complications Patient has been on intravenous antibiotic after he was recently admitted with UTI and bacteremia. Patient will continue to receive IV antibiotic at home to complete the recommended course. Patient has multiple complex medical issues as listed above and others that are not listed. All appear to be stable. Patient is awake. Unable to engage. Unable to answer any questions. Nonverbal. Patient is back to baseline state. I do not have any clear or strong clinical justification to extend inpatient hospitalization. Patient however will require close and the frequent monitoringas well as additional work-up, investigation and therapeutic intervention that could take place from this point on post discharge. That is to prevent relapse,decompensation, rehospitalization and other medical implications. Patient will be arranged to have a hospital bed to help with change position, skin care, feed while in upright position to prevent aspiration. Patient will be arranged to have noninvasive ventilation at home. Patient will be arranged to have home health care. I instructed patient to ask her primary care doctor [facility] to address abnormalities seen on labs and imagingand to follow-up on needed medical care in the outpatient setting. Time Spent with Patient Time spent providing/coordinating discharge services (# min): 60 Diagnostic Studies Completed and Pending Studies Pending studies at discharge: 05/17/23 14:13 Blood Culture Stat Preliminary micro results at discharge 05/17/23 14:13 Blood Culture - Preliminary Blood - Right Antecubital No Growth 2 Days 05/17/23 14:18 Blood Culture - Preliminary Blood - Pic Line No Growth 2 Days Labs on day of discharge: 05/20/23 05:00: PHA Creatinine Clear 23.47, Sodium 137, Potassium 3.9, Chloride 103, Carbon Dioxide 29.3, Anion Gap 8.6, BUN 21 D, Creatinine 3.76 H D, Est GFR(CKD- EPI) 20.161, Glucose 93, Calcium 9.0, Magnesium 2.0 Exam Physical Exam Vital Signs: Temp Pulse Resp BP Pulse Ox O2 Del Method O2 Flow Rate 98.0 F 68 16 129/73 94 L Nasal Cannula 3 05/20/23 08:00 05/20/23 08:00 05/20/23 08:00 05/20/23 08:00 05/20/23 08:00 05/20/23 08:00 05/20/23 08:00 FiO2 40 05/20/23 06:31 Narrative: CONST- Thin, features of cerebral palsy. HEAD - Normocephalic and atraumatic EENT-Blind, bilateral eye atrophy. NECK-Supple, no cervical lymphadenopathy CARDIAC-normal rate, regular rhythm, S1 & S2. PULM-diminished, bipap on, no accessory muscle use or cough noted ABD - Soft.? Bowel sounds are normal. No distention. No tenderness noted EXTREM-no edema BLE calves, nontender SKIN- W/D good turgor MS-unable to assess as patient does not participate in exam, AV fistula to LUE NEURO- nonverbal, upper and lower extremities muscle atrophy. Upper and lower extremity joints contraction PSYCH-unable to assess Discharge Plan Discharge Plan Patient Disposition: Home Additional Instructions: I may not have addressed or treated all of your medical illnesses or the abnormal blood work or imaging studies during this hospitalization. Please ask your primary care provider to obtain [facility] records entirely to follow up on all of the abnormal physical, laboratory, and imaging findings that I have not addressed. Please return back to the emergency room or seek medical attention if your symptoms worsen or return. Discharging you from [facility] does not mean that your medical care ends here and now. You may still need additional monitoring, work up, investigation, and treatment plan to be handled from this point on by out patient providers including your primary care provider and specialists. For any medication question, please contact your retail pharmacist or your primary care provider. Thank you. Prescriptions: New ertapenem 1 gram recon soln 0.5 g IV DAILY 15 Days Qty: 15 0RF Continued bumetanide 2 mg Tablet 2 mg PO QAM Rx Instructions: only on non-dialysis days. (T,W,T,S,S) clonazepam 0.5 mg Tablet 0.5 mg PO TID lidocaine-prilocaine 2.5-2.5 % Cream 1 applic TOPICAL ONCE Rx Instructions: 45 minutes prior to dialysis diltiazem HCl 30 mg Tablet 30 mg PO TID metoprolol tartrate 25 mg Tablet 25 mg PO BID sildenafil (pulm.hypertension) 20 mg Tablet 20 mg PO TID Rx Instructions: administer doses at least 4-6 hours apart Dialyvite 100-1 mg Tablet 1 tab PO QHS Nuedexta 20-10 mg Capsule 1 cap PO Q12H levalbuterol HCl 1.25 mg/3 mL solution for nebulization 1.25 mg INHALATION Q8H Patient Comments: USE 1 VIAL VIA NEBULIZER EVERY 8 HOURS ipratropium bromide 0.02 % solution 500 mcg inhalation Q8H Patient Comments: USE 1 VIAL VIA NEBULIZER EVERY 8 HOURS omeprazole 20 mg Tablet,Delayed Release (Dr/Ec) 20 mg PO BID Qty: 60 0RF maltodextrin Powder 1 ea PO DAILY Rx Instructions: given mixed in apple juice. Other Ambulatory Orders: DME Home Medical Equipment (Routine) Timeframe: 20230518 Location: Determined by Patient Ordered By: Rajendra Pierce Follow Up: Kostas Wade MD [Active Staff] - 05/25/23 2:30 pm (Please keep previously scheduled follow up appointment with Infectious Disease.) Quinton Gonzales [Referring] - Documented By: Rajendra Pierce MD 05/20/23 1136 Signed By: <Electronically signed by Rajendra Pierce MD> 05/20/23 1143 [facility] Work Phone: 1(825) 291-467109-16-2023 Progress note Author Rajendra Pierce [facility] May 20, 2023 10:59am Note Date/Time May 20, 2023 10:59am [facility] [address] [place], [place] [id number] Hospitalist Progress Note Signed Patient: Ruddy Palmer MR#: [id number] : 1985 Acct:[id number] Age/Sex: 37 / M Adm Date: 3 Loc: 4 Room: [address] [place] [address] Type: ADM IN Attending Dr: Rajendra Pierce MD Copies to: ~ Date of Service: 05/20/2023 Subjective Subjective Narrative: Patient resting in bed, nursing staff at bedside for breakfast food. No family at bedside. Exam Physical Exam Vital Signs: Temp Pulse Resp BP Pulse Ox O2 Del Method O2 Flow Rate 98.0 F 68 16 129/73 94 L Nasal Cannula 3 05/20/23 08:00 05/20/23 08:00 05/20/23 08:00 05/20/23 08:00 05/20/23 08:00 05/20/23 08:00 05/20/23 08:00 FiO2 40 05/20/23 06:31 Narrative: CONST- Thin, features of cerebral palsy. HEAD - Normocephalic and atraumatic EENT-Blind, bilateral eye atrophy. NECK-Supple, no cervical lymphadenopathy CARDIAC-normal rate, regular rhythm, S1 & S2. PULM-diminished, bipap on, no accessory muscle use or cough noted ABD - Soft.? Bowel sounds are normal. No distention. No tenderness noted EXTREM-no edema BLE calves, nontender SKIN- W/D good turgor MS-unable to assess as patient does not participate in exam, AV fistula to LUE NEURO- nonverbal, upper and lower extremities muscle atrophy. Upper and lower extremity joints contraction PSYCH-unable to assess Objective Lab Results 05/18/23 04:15 05/20/23 05:00 Microbiology Results Microbiology 05/18/23 09:52 Straight Catheter Urine Culture - Final No Growth 2 Days 05/17/23 14:13 Blood - Right Antecubital Blood Culture - Preliminary No Growth 2 Days 05/17/23 14:18 Blood - Pic Line Blood Culture - Preliminary No Growth 2 Days Meds Allergies and Active Meds Allergies ciprofloxacin [From Cipro] Allergy (Verified 05/17/23 12:29) Hives latex Allergy (Verified 05/17/23 12:29) Hives Active Meds: Active Medications Generic Name Dose Route Start Last Admin Trade Name Freq PRN Reason Stop Dose Admin Acetaminophen 650 mg 05/17/23 22:35 Acetaminophen 325 Mg Tablet PO 05/16/24 22:34 Q6HR PRN Pain Scale 1 - 3 or fever Bumetanide 2 mg 05/18/23 09:00 05/20/23 09:14 Bumetanide 2 Mg Tablet PO 05/17/24 08:59 2 mg SuTuWeThSa@0900 PENNY Administration Clonazepam 0.25 mg 05/18/23 11:47 Clonazepam 0.25 Mg Tablet PO 11/13/23 22:49 TID PRN anxiety Darbepoetin Tatianna 60 mcg 05/19/23 09:00 05/19/23 10:07 Darbepoetin Tatianna In Polysorbat 60 Mcg/Ml Vial IV-PUSH 05/18/24 08:59 60 mcg Fr@0900 PENNY Administration Diltiazem HCl 30 mg 05/17/23 22:50 05/20/23 09:14 Diltiazem 30 Mg Tablet PO 05/16/24 22:49 30 mg TID PENNY Administration Heparin Sodium (Porcine) 2,000 unit 05/19/23 07:47 Heparin 10,000 Unit/10 Ml Vial IV 05/18/24 07:46 PRN PRN Dialysis Heparin Sodium (Porcine) 1,000 unit 05/19/23 07:47 Heparin 10,000 Unit/10 Ml Vial IV 05/18/24 07:46 PRN PRN Dialysis Ertapenem 0.5 gm/ Sodium 100 mls @ 200 mls/hr 05/18/23 19:00 05/19/23 18:38 Chloride IV 05/17/24 18:59 Infused Q24H PENNY Infusion Sodium Chloride 1,000 mls @ 0 mls/hr 05/19/23 07:47 05/19/23 10:09 0.9% Sodium Chloride 1,000 Ml MISCELLANE 05/18/24 07:46 Infused .Q0M PRN Infusion Dialysis As Directed Ipratropium [place] 0.5 mg 05/18/23 09:00 05/20/23 07:33 Ipratropium [place] 0.5 Mg/2.5 Ml Vial.Neb INHALATION 05/16/24 22:59 0.5 mg TID PENNY Administration Levalbuterol HCl 1.25 mg 05/18/23 09:00 05/20/23 07:32 Levalbuterol Hcl *Nf* 1.25 Mg/3 Ml Vial.Neb INHALATION 05/16/24 22:59 1.25 mg TID PENNY Administration Protocol Metoprolol Tartrate 25 mg 05/17/23 22:50 05/20/23 09:14 Metoprolol Tartrate 25 Mg Tablet PO 05/16/24 22:49 25 mg BID PENNY Administration Non-Formulary Medication 1 each 05/18/23 09:00 Maltodextrin PO 05/17/24 08:59 DAILY PENNY Non-Formulary Medication 1 cap 05/17/23 23:00 Dextromethorphan-Quinidine [Nuedexta] PO 05/16/24 22:59 Q12H PENNY Pantoprazole Sodium 40 mg 05/19/23 09:00 05/20/23 09:14 Pantoprazole 40 Mg Tablet. PO 05/18/24 08:59 40 mg DAILY PENNY Administration Sildenafil Citrate 20 mg 05/17/23 22:50 05/20/23 09:14 Sildenafil Citrate 20 Mg Tablet PO 05/16/24 22:49 20 mg TID PENNY Administration Sodium Chloride 0 ml 05/18/23 14:00 05/19/23 22:08 Sodium Chloride 0.9 % 10 Ml Syringe IV-PUSH 05/17/24 13:59 10 ml QSHIFT PENNY Administration Sodium Chloride 0 ml 05/19/23 07:47 05/19/23 18:09 Sodium Chloride 0.9 % 10 Ml Syringe IV-PUSH 05/18/24 07:46 10 ml PRN PRN Administration Flush Vitamin B Complex/Vit C/Folic Acid 1 tab 05/18/23 22:00 05/19/23 22:07 Folic Acid/Vit Bcomp,C 1 Tab Tablet PO 05/17/24 21:59 1 tab QHS PENNY Administration A&P - Hospitalist Assessment/Plan (1) Acute hypercapnic respiratory failure: (2) ESRD (end stage renal disease): (3) Anemia of renal disease: (4) Secondary hyperparathyroidism: (5) ESRD (end stage renal disease) on dialysis: (6) Cerebral palsy: Plan Acute hypercapnic respiratory failure Chronic hypoxic respiratory failure?wears oxygen at all times at home ? Continue BiPAP overnight and as needed -Pulmonology consulted and following, recommended noninvasive positive pressure ventilation Patient will be discharged home once cleared by pulmonary team and noninvasive positive pressure ventilation is arranged. Weakness and fatigue ? 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 Consult nephrology -Left upper extremity AV fistula?patient has had fistula declotted before ? US AV fistula showed decreased flow fistula, vascular consult placed. Vascular team is recommending elective fistulogram. -BUN 40, creatinine 5.78 upon admission?has worsened today to BUN 54, creatinine 6.7 Chronic conditions E. coli bacteremia?continue ertapenem, repeat blood cultures negative. Hearing impaired, blindness?assist with mealtimes Cerebral palsy Severe pulmonary hypertension?continue sildenafil HTN?monitor, continue diltiazem, metoprolol, Bumex?not on hemodialysis days Panacinar emphysema, bronchopulmonary dysplasia, asthma?continue nebulizers DVT PPx-SCDs, nonpharmacological therapy due to anemia, recent GI bleed Diet order-pur?ed CODE STATUS-DNR CCA without intubation as discussed with mother and prior records Documented By: Rajendra Piecre MD 05/20/231056 Signed By: <Electronically signed by Rajendra Pierce MD> 05/20/231058 [facility] Work Phone: 1(210) 301-485409-15-2023 History and physical note Author Spencer Dyson [facility] May 19, 2023 8:09pm Note Date/Time May 17, 2023 10:09pm [facility] [address] [place] [address] Hospitalist H&P Signed Patient: Ruddy Palmer MR#: [id number] : 1985 Acct:[id number] Age/Sex: 37 / M Adm Date: 3 Loc: Room: [address] [place] [address] Type: ADM IN Attending Dr: Rajendra Pierce MD Copies to: Spencer J Karis, MD MD Terra Rutledge APRN Rafik Massouh, MD~ HPI DATE OF EXAMINATION: 05/17/23 CHIEF COMPLAINT: weakness HISTORY OF PRESENT ILLNESS: Mr. Palmer is a 37-year-old male with a PMH of cerebral palsy, blindness, ESRD on HD, asthma, emphysema, severe pulmonary hypertension the presents to the emergency room today for complaints of weakness, fatigue. Patient seen and evaluated in the emergency room, resting on the cart quietly, mother at bedside. Mother states that she noticed last night after dinner the patient almost fell forward when trying to pull his pants up in the bathroom. She states she noticed he was snoring a lot last night horrendous snoring and this morning hewoke up and there was a large amount of slimy saliva with chunks on the bed, shethinks that he had thrown up in his sleep. She states his gait was unsteady when she walked into the bathroom he needed a lot of redirection, she got him inthe bathtub we gave him a bath and when he went to stand up he kind of slumped down into the tub and had to pick him up out of the bottom of the bathtub. Thatshe decided to bring him here. She had also noted that his SPO2 at home had been in the 90s. He has had some episodes of diarrhea. She states that he was just discharged on Monday and had been doing well until last night. EKG in the ER shows normal sinus rhythm. Chest x-ray shows no acute process, obstructive lung disease, right-sided PICC. Lab work was essentially unremarkable, creatinine down to 5.78, BUN 40?these are improved from previous hospitalization. Patient was going to be discharged to home but they noticed a difference in his breathing so they performed an ABG?pH 7.11, PCO2 70.8, PO2 79.9, bicarb 22.1. Patient was placed on BiPAP 10/5 with a rate of 12 and an FiO2 of 40%. He will be admitted to the progressive floor under the care of thehospitalist team for further evaluation and treatment. Review of Systems Review of Systems Unobtainable due to mental condition [facility] Medical History (Updated 05/17/23 @ 22:22 by Terra Cardoza APRN) A-V fistula LUE Adult hyaline membrane disease Asthma Blind Cerebral palsy Cystic BPD (bronchopulmonary dysplasia) Hearing impaired Hypertension Non-verbal learning disorder Panacinar emphysema Pulmonary hypertension Surgical History (Updated 05/17/23 @ 22:18 by Terra Cardoza APRN) H/O eye surgery Attempted to reattach retina x 1, 1984, 1985 H/O inguinal hernia repair 1984-right, 1985-left History of placement of ear tubes 1985, 1986 Social History Marital Status: Single Household Members: family Housing: house Smoking Status: Never smoker Substance Use Type: None Current Occupational Status: disabled Social History Comments: lives with parents, mother is caregiver at home, 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 Medications and Allergies Allergies ciprofloxacin [From Cipro] Allergy (Verified 05/17/23 12:29) Hives latex Allergy (Verified 05/17/23 12:29) Hives Home Medications bumetanide 2 mg tablet 2 mg PO QAM 04/28/23 [History Confirmed 05/17/23] clonazepam 0.5 mg tablet 0.5 mg PO TID 04/28/23 [History Confirmed 05/17/23] dextromethorphan 20 mg-quinidine 10 mg capsule (Nuedexta) 1 cap PO Q12H 04/28/23[History Confirmed 05/17/23] diltiazem HCl 30 mg tablet 30 mg PO TID 04/28/23 [History Confirmed 05/17/23] lidocaine-prilocaine 2.5 %-2.5 % topical cream 1 applic topical ONCE 04/28/23 [History Confirmed 05/17/23] metoprolol tartrate 25 mg tablet 25 mg PO BID 04/28/23 [History Confirmed 05/17/23] sildenafil (pulm.hypertension) 20 mg tablet 20 mg PO TID 04/28/23 [History Confirmed 05/17/23] vitamin B complex-vitamin C 100 mg-folic acid 1 mg tablet (Dialyvite) 1 tab PO QHS 04/28/23 [History Confirmed 05/17/23] ipratropium bromide 0.02 % solution for inhalation 500 mcg inhalation Q8H 04/29/23 [History Confirmed 05/17/23] levalbuterol HCl 1.25 mg/3 mL solution for nebulization 1.25 mg inhalation Q8H 04/29/23 [History Confirmed 05/17/23] omeprazole 20 mg tablet,delayed release 20 mg PO BID #60 tabs 05/07/23 [Rx Confirmed 05/17/23] maltodextrin 1 ea PO DAILY 05/17/23 [History Confirmed 05/17/23] Exam Physical Exam Vital Signs: Temp Pulse Resp BP Pulse Ox O2 Del Method O2 Flow Rate 98.8 F 83 18 116/58 L 94 L Nasal Cannula 3 05/17/23 12:34 05/17/23 21:34 05/17/23 21:34 05/17/23 20:44 05/17/23 21:21 05/17/23 20:44 05/17/23 20:44 FiO2 40 05/17/23 21:21 Narrative: CONST- Appears well -developed and well nourished. Thin HEAD - Normocephalic and atraumatic EENT-Blind, conjunctive are non-erythemic, moist oral mucosa, pharynx clear NECK-Supple, no cervical lymphadenopathy CARDIAC-normal rate, regular rhythm, S1 & S2. PULM-diminished, fine crackles anterior and posterior, bipap, no accessory muscle use or cough noted ABD - Soft. Bowel sounds are normal. No distention. No tenderness EXTREM-no edema BLE calves, nontender SKIN- W/D good turgor MS- MAEX4 spontaneously with equal with equal strength, AV fistula to LUE, weak thrill noted to lower portion NEURO- nonverbal, tongue midline, equal facial symmetry, no focal motor deficits PSYCH-Mood, affect, and behavior appropriate Results Lab Results Labs: Laboratory Last Values Corrected WBC 10.6 X10E3/uL (4.1-10.5) H 05/17/23 14:04 Uncorrected WBC Count 10.6 x10E3/uL (4.1-10.5) H 05/17/23 14:04 RBC 3.56 X10E6/uL (3.90-5.60) L 05/17/23 14:04 Hgb 10.6 g/dL (13.0-17.0) L 05/17/23 14:04 Hct 33.3 % (38.8-50.0) L 05/17/23 14:04 MCV 93.5 fl (83.5-101) 05/17/23 14:04 MCH 29.9 pg (27.5-35.2) 05/17/23 14:04 MCHC 32.0 g/dL (32.5-35.6) L 05/17/23 14:04 RDW 14.7 % (12.0-14.8) 05/17/23 14:04 Plt Count 266 x10E3/uL (150-450) 05/17/23 14:04 MPV 7.2 fl (6.6-10.1) 05/17/23 14:04 Neut % (Auto) 71.3 % (.) 05/17/23 14:04 Lymph % (Auto) 9.9 % (.) 05/17/23 14:04 [place] % (Auto) 14.0 % (.) 05/17/23 14:04 Eos % (Auto) 4.0 % (.) 05/17/23 14:04 Baso % (Auto) 0.8 % (.) 05/17/23 14:04 Nucleat RBC Rel Count 0.3 /100 WBC (0-0.5) 05/17/23 14:04 Neut # (Auto) 7.6 x10E3/uL (1.8-7.7) 05/17/23 14:04 Lymph # (Auto) 1.1 x10E3/uL (1.00-4.8) 05/17/23 14:04 [place] # (Auto) 1.5 x10E3/uL (0.0-0.8) H 05/17/23 14:04 Eos # (Auto) 0.4 x10E3/uL (0.0-0.45) 05/17/23 14:04 Baso # (Auto) 0.1 x10E3/uL (0.0-0.2) 05/17/23 14:04 Monocyte Dist Width 18.65 % (0.00-20.00) 05/17/23 14:04 Sample Site Right brachial 05/17/23 20:37 ABG pH 7.11 (7.35-7.45) L* 05/17/23 20:37 ABG pCO2 70.8 mmHg (35.0-45.0) H* 05/17/23 20:37 ABG pO2 79.9 mmHg (80.0-100.0) L 05/17/23 20:37 ABG HCO3 22.1 mmol/L (23.0-29.0) L 05/17/23 20:37 ABG Total CO2 24.3 mmol/L (23.0-27.0) 05/17/23 20:37 ABG O2 Saturation 95.3 % (95.0-100.0) 05/17/23 20:37 ABG O2 Content 6.8 mmol/L (6.6-9.7) 05/17/23 20:37 ABG Base Excess -8.0 mmol/L (-3.0-3.0) L 05/17/23 20:37 FiO2 28 % 05/17/23 20:37 Critical Value 05/17/23 20:37 PHA Creatinine Clear 15.56 05/17/23 14:04 Sodium 132 mmol/L (136-145) L 05/17/23 14:04 Potassium 4.7 mmol/L (3.5-5.1) 05/17/23 14:04 Chloride 102 mmol/L (98-107) 05/17/23 14:04 Carbon Dioxide 26.1 mmol/L (21.0-31.0) 05/17/23 14:04 Anion Gap 8.6 mEq/L (6.0-15.0) 05/17/23 14:04 BUN 40 mg/dL (7-25) H 05/17/23 14:04 Creatinine 5.78 mg/dL (0.70-1.30) H 05/17/23 14:04 Est GFR (CKD-EPI) 12.034 mL/Min 05/17/23 14:04 Glucose 105 mg/dL (70-100) H 05/17/23 14:04 Calcium 8.8 mg/dL (8.6-10.3) 05/17/23 14:04 Total Bilirubin 0.3 mg/dl (0.3-1.0) 05/17/23 14:04 Direct Bilirubin 0.00 mg/dL (0.03-0.18) L 05/17/23 14:04 Indirect Bilirubin 0.3 mg/dL 05/17/23 14:04 AST 14 U/L (13-39) 05/17/23 14:04 ALT 10 U/L (7-52) 05/17/23 14:04 Alkaline Phosphatase 100 U/L (34-104) 05/17/23 14:04 Total Creatine Kinase 26 U/L (30-223) L 05/17/23 14:04 Troponin I High Sens 10.8 pg/mL (0.0-20.0) 05/17/23 14:04 Total Protein 5.8 gm/dL (6.4-8.9) L 05/17/23 14:04 Albumin 3.5 gm/dL (3.5-5.7) 05/17/23 14:04 Globulin 2.3 gm/dL 05/17/23 14:04 Albumin/Globulin Ratio 1.5 05/17/23 14:04 Lipase 32.0 U/L (11.0-82.0) 05/17/23 14:04 Urine Color Yellow (Yellow) 05/17/23 17:27 Urine Appearance Clear (Clear) 05/17/23 17:27 Urine pH 6.0 (5.0-9.0) 05/17/23 17:27 Ur Specific [place] 1.006 (1.001-1.030) 05/17/23 17:27 Urine Protein Trace mg/dL (Negative) H 05/17/23 17:27 Urine Glucose (UA) Normal mg/dL (Normal) 05/17/23 17:27 Urine Ketones Negative (Negative) 05/17/23 17:27 Urine Occult Blood Negative (Negative) 05/17/23 17:27 Urine Nitrite Negative (Negative) 05/17/23 17:27 Urine Bilirubin Negative (Negative) 05/17/23 17:27 Urine Urobilinogen Normal mg/dL (Normal) 05/17/23 17:27 Ur Leukocyte Esterase Negative (Negative) 05/17/23 17:27 Urine RBC None seen /HPF (0-4) 05/17/23 17:27 Urine WBC 20-49 /HPF (0-4) H 05/17/23 17:27 Ur Squamous Epith Cells None seen /HPF (0-2) 05/17/23 17:27 Urine Bacteria None seen (None Seen) 05/17/23 17:27 Hyaline Casts None seen /LPF (0-8) 05/17/23 17:27 Blood Type A Positive 05/17/23 14:04 Antibody Screen Negative 05/17/23 14:04 ABG Interpretation ABG results: 05/17/23 20:37 ABG pH 7.11 L* ABG pCO2 70.8 H* ABG pO2 79.9 L ABG HCO3 22.1 L ABG Total CO2 24.3 ABG O2 Saturation 95.3 ABG O2 Content 6.8 ABG Base Excess -8.0 L Assessment & Plan Assessment/Plan (1) Acute hypercapnic respiratory failure: (2) Weakness: (3) ESRD (end stage renal disease) on dialysis: (4) A-V fistula: Plan Acute hypercapnic respiratory failure Chronic hypoxic respiratory failure?wears oxygen at all times at home ? Continue BiPAP overnight and as needed ? Patient wears 3 L nasal cannula at all times ? Repeat ABG in a.m. Weakness and fatigue ? 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 Consult nephrology Left upper extremity AV fistula?weak thrill noted, patient has had fistula declotted before ? US AV fistula in am Chronic conditions E. coli bacteremia?continue ertapenem Hearing impaired, blindness?assist with mealtimes Cerebral palsy Severe pulmonary hypertension?continue sildenafil HTN?monitor, continue diltiazem, metoprolol, Bumex?not on hemodialysis days Panacinar emphysema, bronchopulmonary dysplasia, asthma?continue nebulizers DVT PPx-SCDs, nonpharmacological therapy due to anemia, recent GI bleed Diet order-pur?ed CODE STATUS-DNR CCA without intubation as discussed with mother and prior records IP vs OBS Justification Based on differential dx, clinical care plan, and risk of adverse events, if untreated, in my clinical judgement this patient requires an acute care setting as: INPATIENT because of an expectation of an over 2 midnight stay. Estimated length of stay (# of days): 3 Documented By: Terra Cardoza APRN 05/17/232208 Signed By: <Electronically signed by VICTORIA Cardoza> 05/17/232257 <Electronically signed by Spencer Dyson MD> 05/19/232008 [facility] Work Phone: 1([phone]) 482-779309-15-2023 Consult note Author Rojas No [facility] May 19, 2023 2:42pm Note Date/Time May 19, 2023 2:42pm [facility] [address] [place] [address] Vascular Surgery Consult Note Signed Patient: Ruddy Palmer MR#: [id number] : 1985 Acct:[id number] Age/Sex: 37 / M Adm Date: 3 Loc: 4 Room: [address] [place] [address] Type: ADM IN Attending Dr: Rajendra Pierce MD Copies to: MD Rojas Rutledge MD Rafik Massouh, MD~ HPI Consult HPI Reason for consult: Inadequate left arm fistula History of present illness: Mr. Palmer is a 37 year old male with a left upper arm autologous fistula who dialyzes in [facility]. He generally gets intervention for his access in [place]. I was asked to examine his dialysis access today as it is quite pulsatile and the flows by ultrasound are diminished. cc:: CC: Rajendra Pierce MD Data of Consult Consult date: 05/19/2023 Requesting Physician: Rajendra Pierce MD [facility] Medical History A-V fistula LUE Adult hyaline membrane disease Asthma Blind Cerebral palsy Cystic BPD (bronchopulmonary dysplasia) ESRD (end stage renal disease) on dialysis M + F Hearing impaired Hypertension Non-verbal learning disorder Panacinar emphysema Pulmonary hypertension Surgical History H/O eye surgery Attempted to reattach retina x 1, 1984, 1985 H/O inguinal hernia repair 1984-right, 1985-left History of placement of ear tubes 1985, 1986 Social History Smoking Status: Never smoker Substance Use Type: None Social History Comments: Mother Allergies & Active Medications Medications and Allergies Allergies ciprofloxacin [From Cipro] Allergy (Verified 05/17/23 12:29) Hives latex Allergy (Verified 05/17/23 12:29) Hives Exam Physical Exam Vital Signs: Temp Pulse Resp BP Pulse Ox O2 Del Method O2 Flow Rate 97.6 F 66 20 147/83 H 100 BiPAP 3 05/19/23 13:29 05/19/23 13:29 05/19/23 13:29 05/19/23 13:29 05/19/23 13:29 05/19/23 13:29 05/19/23 09:00 FiO2 40 05/19/23 13:29 Narrative: Left upper arm access is pulsatile. There is a thrill proximally but no distal thrill. Results Labs 05/18/23 04:15 05/19/23 04:15 Labs: Laboratory Results - last 24 hr 05/18/23 05/19/23 14:56 04:15 Sample Site Right brachial ABG pH 7.21 L ABG pCO2 57.6 H* ABG pO2 90.1 ABG HCO3 22.5 L ABG Total CO2 24.2 ABG O2 Saturation 97.0 ABG O2 Content 6.9 ABG Base Excess -5.8 L Set Respiration Rate 14 FiO2 40 Tidal Volume 450 PEEP 5 Critical Value PHA Creatinine Clear 14.31 Sodium 140 D Potassium 4.3 Chloride 102 Carbon Dioxide 24.7 Anion Gap 17.6 H BUN 54 H Creatinine 6.70 H D Est GFR (CKD-EPI) 10.080 Glucose 87 Calcium 8.4 L Phosphorus 5.4 Albumin 3.2 L A&P - Vascular (1) Acute hypercapnic respiratory failure: Code(s): J96.02 - Acute respiratory failure with hypercapnia Status: Acute (2) E coli bacteremia: Code(s): R78.81 - Bacteremia; B96.20 - Unspecified Escherichia coli [E. coli] as the cause of diseases classified elsewhere Status: Acute (3) ESRD (end stage renal disease): Code(s): N18.6 - End stage renal disease Status: Inactive (4) Dialysis AV fistula malfunction: Plan: Based on his ultrasound and physical examination he warrants diagnostic fistulogram and intervention for his fistula. If he remains in the hospital over the weekend I will do this for him Monday. If he is discharged prior to that date it can be arranged as an outpatient through our office [facility] Code(s): T82.590A - Other mechanical complication of surgically created arteriovenous fistula, initial encounter Status: Acute Documented By: Rojas No MD 05/19/23 144 0 Signed By: <Electronically signed by MD Rojas No> 05/19/23 1442 [facility] Work Phone: [phone]) 739-965509-15-2023 Progress note Author Jami Grimes [facility] May 19, 2023 2:40pm Note Date/Time May 19, 2023 2:40pm [facility] [address] [place] [address] Pulmonology Progress Note Signed Patient: Ruddy Palmer MR#: [id number] : 1985 Acct:[id number] Age/Sex: 37 / M Adm Date: 3 Loc: Room: [address] [place] [address] Type: ADM IN Attending Dr: Rajendra Pierce MD Copies to: ~ Date of Service: 05/19/2023 Subjective Subjective Narrative: Patient was seen, examined and discussed during rounds today, he was in the inpatient dialysis unit receiving his hemodialysis when I saw him. He had BiPAPon which he tolerated adequately, his gases showed improvement in his hypercapnia. Patient had ABGs done on May 04 which was the first ever done on him showing same level of hypercapnia with a CO2 of 69 but his pH was 7.21, yesterday's pH was 7.11 with the same PCO2, indicating acute metabolic acidosis on top of his chronic respiratory acidosis. His CO2 is down to 57 today with pHup to 7.21 after initiating BiPAP therapy. Exam Physical Exam Vital Signs: Temp Pulse Resp BP Pulse Ox O2 Del Method O2 Flow Rate 97.6 F 66 20 147/83 H 100 BiPAP 3 05/19/23 13:29 05/19/23 13:29 05/19/23 13:29 05/19/23 13:29 05/19/23 13:29 05/19/23 13:29 05/19/23 09:00 FiO2 40 05/19/23 13:29 Narrative: General: Patient is alert awake, somewhat agitated during dialysis but otherwiseappears in no significant distress, currently with BiPAP on via facemask Eyes: Pupils equal round reactive to light HEENT: Normocephalic, atraumatic, oral mucosa moist Neck: Supple no lymphadenopathy or thyromegaly Cardiovascular: S1, S2, normal sounds, no murmurs or gallops noted, regular rhythm Lungs: Adequate air entry bilaterally, clear to auscultation Extremities: No significant peripheral edema, peripheral pulses adequate Neurologic: Limited exam at this point Objective Intake and Output I&O - Last 24 Hours: Intake & Output 0905/19/23 05/19/23 23:59 07:59 15:59 Intake Total 300 / 600 0 / 980 980 / 980 Output Total 1499 / 1499 Balance 300 / 100 0 / -519 -519 / -519 Weight 64.4 kg Labs 05/18/23 04:15 05/19/23 04:15 Microbiology Micro: Microbiology 05/17/23 14:13 Blood Culture - Preliminary Blood - Right Antecubital No Growth 2 Days 05/17/23 14:18 Blood Culture - Preliminary Blood - Pic Line No Growth 2 Days 05/18/23 09:52 Urine Culture - Preliminary Straight Catheter No Growth 1 Day Assessment/Plan Assessment/Plan (1) Anemia of renal disease: (2) ESRD (end stage renal disease) on dialysis: (3) Cerebral palsy: (4) Acute on chronic respiratory failure with hypoxia and hypercapnia: (5) Pneumonia: (6) Sepsis associated hypotension: (7) E coli bacteremia: Plan Patient is stable with noninvasive ventilatory support at this point. I suspecthe has chronic hypercapnic respiratory failure with baseline PCO2 around 70 now with decompensated with a combination of respiratory and metabolic acidosis, requiring noninvasive ventilatory support with some improvement. Patient is limited in terms of mobility, he has high risk for aspiration, hospital bed to maintain elevation of the head of the bed is essential in his care and would be recommended, noninvasive ventilatory support at home is recommended as well, will initiate paperwork to arrange for equipments meanwhile continue all currenttreatment as before, can use BiPAP as needed during the day and at night. Documented By: Jami Grimes MD 05/19/23 1435 Signed By: <Electronically signed by Jami Grimes MD> 05/19/23 1440 [facility] Work Phone: 1(536) 553-298409-15-2023 Progress note Author Rajendra Pierce [facility] May 19, 2023 1:13pm Note Date/Time May 19, 2023 1:07pm [facility] [address] [place], [place] [id number] Progress Note Signed Patient: Ruddy Palmer MR#: [id number] : 1985 Acct:[id number] Age/Sex: 37 / M Adm Date: 3 Loc: Room: [address] [place] [address] Type: ADM IN Attending Dr: Rajendra Pierce MD Copies to: ~ Date of Service: 05/19/2023 Progress Narrative Note PROGRESS NOTE Progress Note: Patient needs a hospital bed for home use. Patient requires frequent or immediate changes in body positioning not feasible in a standard bed due to cerebral palsy and hypoxic respiratory failure. Patient requires head of bed to be elevated more than 30 degrees most of the time due to hypoxic respiratory failure and risk of aspiration, and use of noninvasive positive pressure ventilation. Documented By: Valorie Arrington RN 05/19/23 1300 Signed By: <Electronically signed by Valorie Arrington RN> 05/19/23 1312 <Electronically signed by Rajendra Pierce MD> 05/19/233 [facility] Work Phone: 1(350) 311-209309-15-2023 Progress note Author Rajendra Pierce [facility] May 19, 2023 12:32pm Note Date/Time May 19, 2023 8:22am [facility] [address] [place] [address] Hospitalist Progress Note Signed Patient: Ruddy Palmer MR#: [id number] : 1985 Acct:[id number] Age/Sex: 37 / M Adm Date: 3 Loc: 4 Room: 4G2056-2 Type: ADM IN Attending Dr: Rajendra Pierce MD Copies to: ~ Date of Service: 05/19/2023 Subjective Subjective Narrative: Patient resting in bed, nursing staff at bedside for breakfast food. No family at bedside. Exam Physical Exam Vital Signs: Temp Pulse Resp BP Pulse Ox O2 Del Method O2 Flow Rate 97.6 F 83 20 114/59 L 95 Nasal Cannula 3 05/19/23 07:58 05/19/23 07:58 05/19/23 07:58 05/19/23 07:58 05/19/23 07:58 05/19/23 07:58 05/19/23 07:58 FiO2 40 05/19/23 05:34 Narrative: CONST- Thin, features of cerebral palsy. HEAD - Normocephalic and atraumatic EENT-Blind, bilateral eye atrophy. NECK-Supple, no cervical lymphadenopathy CARDIAC-normal rate, regular rhythm, S1 & S2. PULM-diminished, bipap on, no accessory muscle use or cough noted ABD - Soft.? Bowel sounds are normal. No distention. No tenderness noted EXTREM-no edema BLE calves, nontender SKIN- W/D good turgor MS-unable to assess as patient does not participate in exam, AV fistula to LUE NEURO- nonverbal, upper and lower extremities muscle atrophy. Upper and lower extremity joints contraction PSYCH-unable to assess Objective Lab Results 05/18/23 04:15 05/19/23 04:15 Microbiology Results Microbiology 05/17/23 14:13 Blood - Right Antecubital Blood Culture - Preliminary No Growth 1 Day 05/17/23 14:18 Blood - Pic Line Blood Culture - Preliminary No Growth 1 Day Meds Allergies and Active Meds Allergies ciprofloxacin [From Cipro] Allergy (Verified 05/17/23 12:29) Hives latex Allergy (Verified 05/17/23 12:29) Hives Active Meds: Active Medications Generic Name Dose Route Start Last Admin Trade Name Freq PRN Reason Stop Dose Admin Acetaminophen 650 mg 05/17/23 22:35 Acetaminophen 325 Mg Tablet PO 05/16/24 22:34 Q6HR PRN Pain Scale 1 - 3 or fever Bumetanide 2 mg 05/18/23 09:00 05/18/23 08:43 Bumetanide 2 Mg Tablet PO 05/17/24 08:59 2 mg SuTuWeThSa@0900 [facility] Administration Clonazepam 0.25 mg 05/18/23 11:47 Clonazepam 0.25 Mg Tablet PO 11/13/23 22:49 TID PRN anxiety Darbepoetin Tatianna 60 mcg 05/19/23 09:00 Darbepoetin Tatianna In Polysorbat 60 Mcg/Ml Vial IV-PUSH 05/18/24 08:59 Fr@0900 [facility] Diltiazem HCl 30 mg 05/17/23 22:50 05/18/23 22:03 Diltiazem 30 Mg Tablet PO 05/16/24 22:49 30 mg TID PENNY Administration Heparin Sodium (Porcine) 2,000 unit 05/19/23 07:47 Heparin 10,000 Unit/10 Ml Vial IV 05/18/24 07:46 PRN PRN Dialysis Heparin Sodium (Porcine) 1,000 unit 05/19/23 07:47 Heparin 10,000 Unit/10 Ml Vial IV 05/18/24 07:46 PRN PRN Dialysis Ertapenem 0.5 gm/ Sodium 100 mls @ 200 mls/hr 05/18/23 19:00 05/18/23 19:13 Chloride IV 05/17/24 18:59 200 mls/hr Q24H PENNY Administration Sodium Chloride 1,000 mls @ 0 mls/hr 05/19/23 07:47 0.9% Sodium Chloride 1,000 Ml MISCELLANE 05/18/24 07:46 .Q0M PRN Dialysis As Directed Ipratropium [place] 0.5 mg 05/18/23 09:00 05/18/23 20:50 Ipratropium [place] 0.5 Mg/2.5 Ml Vial.Neb INHALATION 05/16/24 22:59 0.5 mg TID PENNY Administration Levalbuterol HCl 1.25 mg 05/18/23 09:00 05/18/23 20:50 Levalbuterol Hcl *Nf* 1.25 Mg/3 Ml Vial.Neb INHALATION 05/16/24 22:59 1.25 mg TID PENNY Administration Protocol Lidocaine/Prilocaine 1 applic 05/19/23 08:30 Lidocaine-Prilocaine Cr 2.5-2.5% 5 Gm Tube TOPICAL 05/19/23 08:31 ONCE ONE Metoprolol Tartrate 25 mg 05/17/23 22:50 05/18/23 22:03 Metoprolol Tartrate 25 Mg Tablet PO 05/16/24 22:49 25 mg BID PENNY Administration Non-Formulary Medication 1 each 05/18/23 09:00 Maltodextrin PO 05/17/24 08:59 DAILY PENNY Non-Formulary Medication 1 cap 05/17/23 23:00 Dextromethorphan-Quinidine [Nuedexta] PO 05/16/24 22:59 Q12H PENNY Pantoprazole Sodium 40 mg 05/19/23 09:00 Pantoprazole 40 Mg Tablet. PO 05/18/24 08:59 DAILY PENNY Sildenafil Citrate 20 mg 05/17/23 22:50 05/18/23 22:03 Sildenafil Citrate 20 Mg Tablet PO 05/16/24 22:49 20 mg TID PENNY Administration Sodium Chloride 0 ml 05/18/23 14:00 05/19/23 05:11 Sodium Chloride 0.9 % 10 Ml Syringe IV-PUSH 05/17/24 13:59 Not Given QSHIFT PENNY Sodium Chloride 0 ml 05/19/23 07:47 Sodium Chloride 0.9 % 10 Ml Syringe IV-PUSH 05/18/24 07:46 PRN PRN Flush Vitamin B Complex/Vit C/Folic Acid 1 tab 05/18/23 22:00 05/18/23 22:03 Folic Acid/Vit Bcomp,C 1 Tab Tablet PO 05/17/24 21:59 1 tab QHS PENNY Administration A&P - Hospitalist Assessment/Plan (1) Acute hypercapnic respiratory failure: (2) E coli bacteremia: (3) ESRD (end stage renal disease): Plan Acute hypercapnic respiratory failure Chronic hypoxic respiratory failure?wears oxygen at all times at home ? Continue BiPAP overnight and as needed ? Patient wears 3 L nasal cannula at all times ? Repeat ABG shortly after admission showed pH 7.13, PCO2 71.9, PO2 56.5, 89% O2 sat -ABG to improved today pH 7.21, PCO2 57.6, PO2 90.1, HCO3 22.5 -Pulmonology consulted and following, recommended noninvasive positive pressure ventilation Patient will be discharged home once cleared by pulmonary team and noninvasive positive pressure ventilation is arranged. Weakness and fatigue ? 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 Consult nephrology -Left upper extremity AV fistula?patient has had fistula declotted before ? US AV fistula showed decreased flow fistula, vascular consult placed -BUN 40, creatinine 5.78 upon admission?has worsened today to BUN 54, creatinine 6.7 Chronic conditions E. coli bacteremia?continue ertapenem Hearing impaired, blindness?assist with mealtimes Cerebral palsy Severe pulmonary hypertension?continue sildenafil HTN?monitor, continue diltiazem, metoprolol, Bumex?not on hemodialysis days Panacinar emphysema, bronchopulmonary dysplasia, asthma?continue nebulizers DVT PPx-SCDs, nonpharmacological therapy due to anemia, recent GI bleed Diet order-pur?ed CODE STATUS-DNR CCA without intubation as discussed with mother and prior records Documented By: Rajendra Pierce MD 05/19/23 0820 Signed By: <Electronically signed by Rajendra Pierce MD> 05/19/23 1232 <Electronically signed by DO BALL Lissett Hernandez> 05/19/23 0822 [facility] Work Phone: [phone]) 140-373609-15-2023 Progress note Author Melina Garcia [facility] May 19, 2023 10:24am Note Date/Time May 19, 2023 10:24am [facility] [address] [place], [place] [id number] Nephrology Progress Note Signed Patient: Ruddy Palmer MR#: [id number] : 1985 Acct:[id number] Age/Sex: 37 / M Adm Date: 3 Loc: Room: [address] [place] [address] Type: ADM IN Attending Dr: Rajendra Pierce MD Copies to: ~ Date of Service: 05/19/2023 Subjective Subjective Narrative: This is a 37-year-old male with a medical history of cerebral palsy, infantile intracranial hemorrhage, hypertension, blindness, deafness, chronic respiratory failure on home oxygen, pulm hypertension, history of PE on Eliquis ,ESRD on hemodialysis was brought into the emergency room for generalized weakness. On evaluation emergency room patient had a ABG which showed pH 7.11 PCO2 70.8 PO2 79.9 bicarb 22.1. His chest x-ray showed no acute finding. Patient was placed on BiPAP due to the hypercapnic respiratory failure. Patient has a ESRD due to the solitary kidney and septic induced MCKENNA. He has been on dialysis for more than 2 years and currently goes to the [facility] twice a week schedule Monday and Monday. He currently has AV fistula and was found to have a weak thrill on admission. He had ultrasound of the fistula which showed low blood flow with multiple stenosis. Nephrology is consulted for his ESRD management during the hospital stay. Interval history Patient was seen and examined at bedside and case was discussed with the HD RN. He is currently on BiPAP. Exam Physical Exam Vital Signs: Temp Pulse Resp BP Pulse Ox O2 Del Method O2 Flow Rate 97.7 F 69 20 130/71 100 BiPAP 3 05/19/23 09:32 05/19/23 10:00 05/19/23 09:32 05/19/23 10:00 05/19/23 09:32 05/19/23 09:32 05/19/23 09:00 FiO2 40 05/19/23 09:32 Narrative: General: Appears comfortable and not in distress Heart: S1-S2, no rub Lung: Bilateral air entry, no wheezing or crackles Abdomen: Soft, positive bowel sounds Extremities: No edema, no cyanosis Head: Atraumatic, normocephalic Ear: No external ear redness or tenderness Eyes: No pallor or redness Neck: No JVD or visible mass Skin: No rashes , warm to touch 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: Nonverbal, 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 Objective Intake and Output I&O: Intake & Output 05/16/23 05/17/23 05/18/23 05/19/23 23:59 23:59 23:59 23:59 Intake Total 100 / 100 600 / 600 500 / 500 Output Total 500 / 500 Balance 100 / 100 100 / 100 500 / 500 Weight 65.1 kg 67.7 kg 64.4 kg Meds and Allergies Meds: Active Medications Acetaminophen (Acetaminophen 325 Mg Tablet) 650 mg PO Q6HR PRN PRN Reason: Pain Scale 1 - 3 or fever Stop: 05/16/24 22:34 Bumetanide (Bumetanide 2 Mg Tablet) 2 mg PO SuTuWeThSa@0900 [facility] Stop: 05/17/24 08:59 Last Admin: 05/18/23 08:43 Dose: 2 mg Clonazepam (Clonazepam 0.25 Mg Tablet) 0.25 mg PO TID PRN PRN Reason: anxiety Stop: 11/13/23 22:49 Darbepoetin Tatianna (Darbepoetin Tatianna In Polysorbat 60 Mcg/Ml Vial) 60 mcg IV-PUSHFr@0900 [facility] Stop: 05/18/24 08:59 Last Admin: 05/19/23 10:07 Dose: 60 mcg Diltiazem HCl (Diltiazem 30 Mg Tablet) 30 mg PO TID [facility] Stop: 05/16/24 22:49 Last Admin: 05/19/23 08:34 Dose: Not Given Heparin Sodium (Porcine) (Heparin 10,000 Unit/10 Ml Vial) 2,000 unit IV PRN PRN PRN Reason: Dialysis Stop: 05/18/24 07:46 Heparin Sodium (Porcine) (Heparin 10,000 Unit/10 Ml Vial) 1,000 unit IV PRN PRN PRN Reason: Dialysis Stop: 05/18/24 07:46 Ertapenem 0.5 gm/ Sodium (Chloride) 100 mls @ 200 mls/hr IV Q24H PENNY Stop: 05/17/24 18:59 Last Admin: 05/18/23 19:13 Dose: 200 mls/hr Sodium Chloride (0.9% Sodium Chloride 1,000 Ml) 1,000 mls @ 0 mls/hr MISCELLANE.Q0M PRN PRN Reason: Dialysis Stop: 05/18/24 07:46 Last Infusion: 05/19/23 10:09 Dose: Infused Ipratropium [place] (Ipratropium [place] 0.5 Mg/2.5 Ml Vial.Kelsey) 0.5 mg INHALATION TID [facility] Stop: 05/16/24 22:59 Last Admin: 05/19/23 09:00 Dose: 0.5 mg Levalbuterol HCl (Levalbuterol Hcl *Nf* 1.25 Mg/3 Ml Vial.Kelsey) 1.25 mg INHALATION TID [facility]; Protocol Stop: 05/16/24 22:59 Last Admin: 05/19/23 08:59 Dose: 1.25 mg Metoprolol Tartrate (Metoprolol Tartrate 25 Mg Tablet) 25 mg PO BID [facility] Stop: 05/16/24 22:49 Last Admin: 05/19/23 08:34 Dose: Not Given Non-Formulary Medication (Maltodextrin) 1 each PO DAILY PENNY Stop: 05/17/24 08:59 Non-Formulary Medication (Dextromethorphan-Quinidine [Nuedexta]) 1 cap PO Q12H PENNY Stop: 05/16/24 22:59 Pantoprazole Sodium (Pantoprazole 40 Mg Tablet.) 40 mg PO DAILY [facility] Stop: 05/18/24 08:59 Sildenafil Citrate (Sildenafil Citrate 20 Mg Tablet) 20 mg PO TID [facility] Stop: 05/16/24 22:49 Last Admin: 05/19/23 08:34 Dose: Not Given Sodium Chloride (Sodium Chloride 0.9 % 10 Ml Syringe) 0 ml IV-PUSH QSHIFT PENNY Stop: 05/17/24 13:59 Last Admin: 05/19/23 05:11 Dose: Not Given Sodium Chloride (Sodium Chloride 0.9 % 10 Ml Syringe) 0 ml IV-PUSH PRN PRN PRN Reason: Flush Stop: 05/18/24 07:46 Last Admin: 05/19/23 10:08 Dose: 10 ml Vitamin B Complex/Vit C/Folic Acid (Folic Acid/Vit Bcomp,C 1 Tab Tablet) 1 tab PO QHS PENYN Stop: 05/17/24 21:59 Last Admin: 05/18/23 22:03 Dose: 1 tab Allergies ciprofloxacin [From Cipro] Allergy (Verified 05/17/23 12:29) Hives latex Allergy (Verified 05/17/23 12:29) Hives Results Labs 05/18/23 04:15 05/19/23 04:15 Labs: 05/19/23 04:15 BUN 54 H Creatinine 6.70 H D Phosphorus 5.4 Albumin 3.2 L Radiology Impressions Impressions - last 24 hours: Impressions A/V Fistula Ultrasound 05/18/23 05:00 IMPRESSION: This fistula has adequate size but there are several areas of stenosis noted. Overall flows are less than expected. Impression dictated by: Rojas No M.D.05/18/2023 1:35 PM Dictation Location: [facility]04 Any impression(s) listed above is documentation that was entered by the reading physician into a diagnostic report(s) for Ruddy Palmer. I have reviewed the report(s) and am incorporating any findings in the treatment plan of this patient where applicable. A&P - Nephrology Assessment/Plan (1) Acute hypercapnic respiratory failure: Assessment/Problem Details: Patient was found to have acute hypercapnic hayder failure and currently on BiPAP.. Pulmonary has been consulted currently on BiPAP. (2) ESRD (end stage renal disease) on dialysis: Assessment/Problem Details: He has ESRD due to the solitary kidney and failure to recovery after septic shock induced MCKENNA. He currently goes to the [facility] twice a week schedule. (3) Dialysis AV fistula malfunction: Assessment/Problem Details: His AV fistula showed low blood flow with multiple stenosis. (4) Anemia of renal disease: Assessment/Problem Details: Hemoglobin is within the goal. He currently receives Mircera with hemodialysis. (5) Secondary hyperparathyroidism: Assessment/Problem Details: He has a secondary hyperparathyroidism due to the ESRD. He currently on IV Hectorol with dialysis. (6) Prostatitis: Assessment/Problem Details: He is recently diagnosed to have prostatitis currently on IV ertapenem. Plan * Hemodialysis today as ordered. * Will continue IV Zemplar with hemodialysis. * Will continue Aranesp once weekly with hemodialysis while he is inpatient. * Continue vent management of respiratory failure as per pulmonary. * Vascular surgery has been consulted for his AV graft stenoses. * Continue IV antibiotics. Pharmacy to dose medication. Documented By: Melina Garcia MD 05/19/23 1022 Signed By: <Electronically signed by Melina Garcia MD> 05/19/23 1024 [facility] Work Phone: [phone] 606-957709-14-2023 Consult note Author Melina Garcia [facility] May 18, 2023 2:43pm Note Date/Time May 18, 2023 2:26pm [facility] [address] [place] [address] Nephrology Consult Note Signed Patient: Ruddy Palmer MR#: [id number] : 1985 Acct:[id number] Age/Sex: 37 / M Adm Date: 3 Loc: Room: [address] [place] [address] Type: ADM IN Attending Dr: Rajendra Pierce MD Copies to: MD Denis Faulkner MD Rafik Massouh, MD~ Providers Consult Date: 05/18/23 Requesting Provider: Rajendra Pierce MD Primary Care Provider: Denis Melvin MD HPI Reason for Consult: ESRD management History of Present Illness: This is a 37-year-old male with a medical history of cerebral palsy, infantile intracranial hemorrhage, hypertension, blindness, deafness, chronic respiratory failure on home oxygen, pulm hypertension, history of PE on Eliquis ,ESRD on hemodialysis was brought into the emergency room for generalized weakness. On evaluation emergency room patient had a ABG which showed pH 7.11 PCO2 70.8 PO2 79.9 bicarb 22.1. His chest x-ray showed no acute finding. Patient was placed on BiPAP due to the hypercapnic respiratory failure. Patient has a ESRD due to the solitary kidney and septic induced MCKENNA. He has been on dialysis for more than 2 years and currently goes to the [facility] twice a week schedule Monday and Monday. He currently has AV fistula and was found to have a weak thrill on admission. He had ultrasound of the fistula which showed low blood flow with multiple stenosis. Nephrology is consulted for his ESRD management during the hospital stay. Patient was seen and examined at bedside and case wasdiscussed with the bedside RN. Patient is a poor historian most of history was taken from patient chart. Patient had a multiple hospitalization during the last few weeks. His last hospitalization was due to the symptomatic anemia and E. coli bacteremia. He was discharged home on IV ertapenem. Review of Systems Review of Systems Unobtainable due to mental status [facility] Medical History A-V fistula LUE Adult hyaline membrane disease Asthma Blind Cerebral palsy Cystic BPD (bronchopulmonary dysplasia) ESRD (end stage renal disease) on dialysis M + F Hearing impaired Hypertension Non-verbal learning disorder Panacinar emphysema Pulmonary hypertension Surgical History H/O eye surgery Attempted to reattach retina x 1, 1984, 1985 H/O inguinal hernia repair 1984-right, 1985-left History of placement of ear tubes 1985, 1986 Social History Smoking Status: Never smoker Substance Use Type: None Social History Comments: Mother Meds Medications & Allergies Allergies ciprofloxacin [From Cipro] Allergy (Verified 05/17/23 12:29) Hives latex Allergy (Verified 05/17/23 12:29) Hives Home Medications bumetanide 2 mg tablet 2 mg PO QAM 04/28/23 [History Confirmed 05/17/23] clonazepam 0.5 mg tablet 0.5 mg PO TID 04/28/23 [History Confirmed 05/17/23] dextromethorphan 20 mg-quinidine 10 mg capsule (Nuedexta) 1 cap PO Q12H 04/28/23[History Confirmed 05/17/23] diltiazem HCl 30 mg tablet 30 mg PO TID 04/28/23 [History Confirmed 05/17/23] lidocaine-prilocaine 2.5 %-2.5 % topical cream 1 applic topical ONCE 04/28/23 [History Confirmed 05/17/23] metoprolol tartrate 25 mg tablet 25 mg PO BID 04/28/23 [History Confirmed 05/17/23] sildenafil (pulm.hypertension) 20 mg tablet 20 mg PO TID 04/28/23 [History Confirmed 05/17/23] vitamin B complex-vitamin C 100 mg-folic acid 1 mg tablet (Dialyvite) 1 tab PO QHS 04/28/23 [History Confirmed 05/17/23] ipratropium bromide 0.02 % solution for inhalation 500 mcg inhalation Q8H 04/29/23 [History Confirmed 05/17/23] levalbuterol HCl 1.25 mg/3 mL solution for nebulization 1.25 mg inhalation Q8H 04/29/23 [History Confirmed 05/17/23] omeprazole 20 mg tablet,delayed release 20 mg PO BID #60 tabs 05/07/23 [Rx Confirmed 05/17/23] maltodextrin 1 ea PO DAILY 05/17/23 [History Confirmed 05/17/23] Active Medications: Active Medications Acetaminophen (Acetaminophen 325 Mg Tablet) 650 mg PO Q6HR PRN PRN Reason: Pain Scale 1 - 3 or fever Stop: 05/16/24 22:34 Bumetanide (Bumetanide 2 Mg Tablet) 2 mg PO SuTuWeThSa@0900 [facility] Stop: 05/17/24 08:59 Last Admin: 05/18/23 08:43 Dose: 2 mg Clonazepam (Clonazepam 0.25 Mg Tablet) 0.25 mg PO TID PRN PRN Reason: anxiety Stop: 11/13/23 22:49 Diltiazem HCl (Diltiazem 30 Mg Tablet) 30 mg PO TID [facility] Stop: 05/16/24 22:49 Last Admin: 05/18/23 13:27 Dose: 30 mg Ertapenem 0.5 gm/ Sodium (Chloride) 100 mls @ 200 mls/hr IV Q24H [facility] Stop: 05/17/24 18:59 Ipratropium [place] (Ipratropium [place] 0.5 Mg/2.5 Ml Vial.Neb) 0.5 mg INHALATION TID [facility] Stop: 05/16/24 22:59 Last Admin: 05/18/23 13:20 Dose: 0.5 mg Levalbuterol HCl (Levalbuterol Hcl *Nf* 1.25 Mg/3 Ml Vial.Neb) 1.25 mg INHALATION TID [facility]; Protocol Stop: 05/16/24 22:59 Last Admin: 05/18/23 13:20 Dose: 1.25 mg Metoprolol Tartrate (Metoprolol Tartrate 25 Mg Tablet) 25 mg PO BID PENNY Stop: 05/16/24 22:49 Last Admin: 05/18/23 08:43 Dose: 25 mg Non-Formulary Medication (Maltodextrin) 1 each PO DAILY PENNY Stop: 05/17/24 08:59 Non-Formulary Medication (Dextromethorphan-Quinidine [Nuedexta]) 1 cap PO Q12H PENNY Stop: 05/16/24 22:59 Pantoprazole Sodium (Pantoprazole 40 Mg Tablet.Dr) 40 mg PO DAILY PENNY Stop: 05/18/24 08:59 Sildenafil Citrate (Sildenafil Citrate 20 Mg Tablet) 20 mg PO TID PENNY Stop: 05/16/24 22:49 Last Admin: 05/18/23 13:27 Dose: 20 mg Sodium Chloride (Sodium Chloride 0.9 % 10 Ml Syringe) 0 ml IV-PUSH PRN PRN PRN Reason: Flush Stop: 05/16/24 12:27 Last Admin: 05/17/23 19:14 Dose: 10 ml Sodium Chloride (Sodium Chloride 0.9 % 10 Ml Syringe) 0 ml IV-PUSH QSHIFT PENNY Stop: 05/17/24 05:59 Last Admin: 05/18/23 13:27 Dose: 10 ml Sodium Chloride (Sodium Chloride 0.9 % 10 Ml Syringe) 10 ml IV-PUSH Q8H PENNY Stop: 05/17/24 11:59 Last Admin: 05/18/23 13:27 Dose: 10 ml Sodium Chloride (Sodium Chloride 0.9 % 10 Ml Syringe) 0 ml IV-PUSH QSHIFT PENNY Stop: 05/17/24 13:59 Last Admin: 05/18/23 13:27 Dose: 10 ml Vitamin B Complex/Vit C/Folic Acid (Folic Acid/Vit Bcomp,C 1 Tab Tablet) 1 tab PO QHS PENNY Stop: 05/17/24 21:59 Exam Physical Exam Vital Signs: Temp Pulse Resp BP Pulse Ox O2 Del Method O2 Flow Rate 98.2 F 78 18 105/70 93 L BiPAP 3 05/18/23 11:23 05/18/23 13:21 05/18/23 13:21 05/18/23 11:23 05/18/23 12:50 05/18/23 11:23 05/17/23 20:44 FiO2 40 05/18/23 12:50 Narrative: General: Appears comfortable and not in distress Heart: S1-S2, no rub Lung: Bilateral air entry, no wheezing or crackles Abdomen: Soft, positive bowel sounds Extremities: No edema, no cyanosis Head: Atraumatic, normocephalic Ear: No external ear redness or tenderness Eyes: No pallor or redness Neck: No JVD or visible mass Skin: No rashes , warm to touch 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: Nonverbal, 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 Results Labs 05/18/23 04:15 05/18/23 04:15 Labs: 05/17/23 05/17/23 05/18/23 14:04 17:27 04:15 BUN 40 H 44 H Creatinine 5.78 H 6.01 H Albumin 3.5 Urine Color Yellow Urine Appearance Clear Urine pH 6.0 Ur Specific Hermon 1.006 Urine Protein Trace H Urine Glucose (UA) Normal Urine Ketones Negative Urine Occult Blood Negative Urine Nitrite Negative Ur Leukocyte Esterase Negative Urine RBC None seen Urine WBC 20-49 H Urine Bacteria None seen Radiology Impressions Impressions - last 24 hours: Impressions Chest X-Ray 05/17/23 15:51 IMPRESSION: OBSTRUCTIVE LUNG DISEASE. NO ACUTE FINDINGS. Impression dictated by: Holli Alfonso M.D.05/17/2023 4:43 PM Dictation Location: [place] [address] A/V Fistula Ultrasound 05/18/23 05:00 IMPRESSION: This fistula has adequate size but there are several areas of stenosis noted. Overall flows are less than expected. Impression dictated by: Rojas No M.D.05/18/2023 1:35 PM Dictation Location: [place] [address] Any impression(s) listed above is documentation that was entered by the reading physician into a diagnostic report(s) for Ruddy Palmer. I have reviewed the report(s) and am incorporating any findings in the treatment plan of this patient where applicable. A&P - Nephrology Assessment/Plan (1) Acute hypercapnic respiratory failure: Assessment/Problem Details: Patient was found to have acute hypercapnic hayder failure and currently on BiPAP.. Pulmonary has been consulted currently on BiPAP. (2) ESRD (end stage renal disease) on dialysis: Assessment/Problem Details: He has ESRD due to the solitary kidney and failure to recovery after septic shock induced MCKENNA. He currently goes to the [facility] twice a week schedule. (3) Dialysis AV fistula malfunction: Assessment/Problem Details: His AV fistula showed low blood flow with multiple stenosis. (4) Anemia of renal disease: Assessment/Problem Details: Hemoglobin is within the goal. He currently receives Mircera with hemodialysis. (5) Secondary hyperparathyroidism: Assessment/Problem Details: He has a secondary hyperparathyroidism due to the ESRD. He currently on IV Hectorol with dialysis. (6) Prostatitis: Assessment/Problem Details: He is recently diagnosed to have prostatitis currently on IV ertapenem. Plan * No need for dialysis today. Next dialysis will be tomorrow as per schedule. * Will continue IV Zemplar with hemodialysis. * Will continue Aranesp once weekly with hemodialysis while he is inpatient. * Continue vent management of respiratory failure as per pulmonary. * Will consult vascular surgery for AV fistula malfunction. * Continue IV antibiotics. Pharmacy to dose medication. * Thanks for consult. We will continue follow with you. Please feel free to call us with any question. Documented By: Melina Garcia MD 05/18/23 1419 Signed By: <Electronically signed by Melina Garcia MD> 05/18/23 1443 [facility] Work Phone: 1(147) 655-610209-14-2023 Consult note Author Juve Blackwell [facility] May 18, 2023 1:06pm Note Date/Time May 18, 2023 10:45am [facility] [address] [place] [address] Pulmonology Consult Note Signed Patient: Ruddy Palmer MR#: [id number] : 1985 Acct:[id number] Age/Sex: 37 / M Adm Date: 3 Loc: Room: [address] [place] [address] Type: ADM IN Attending Dr: Rajendra Pierce MD Copies to: Carlos Rust MD, RES MD Denis Giang MD Rafik Massouh, MD~ HPI Date/Time of Consultation: Date of Service: 05/18/2023 Time of Service: 10:15 Consulting Provider: Juve Blackwell Requesting Provider: Rajendra Pierce Reason for Consult: Acute hypercapnic respiratory failure History of Present Illness History of present illness: Mr. Palmer is a 37 year old male with past medical history of cerebral palsy, blindness, ESRD on HD, asthma, emphysema, severe pulmonary hypertension who presented to the hospital for 1 day of weakness and fatigue. He has been hospitalized twice in the past month for E. coli sepsis and symptomatic anemia. He was most recently discharged on 05/12/2023 and was recovering well per mother until 2 nights ago he was showing greater weakness and fatigue. Yesterday he continued to decline to the point that he seemed too weak to licensing court magistrate the bathtub and his mother and caregiver state and laying down and decided to bring him to the ER. His mother reports he also had snoring worse than normal the night prior, similar to the time preceding previous hospitalizations for respiratory failure. She was also concerned she will come up yesterday that he had possibly vomited in his sleep. He typically wears 2 L oxygen at home, but had been wearing 3 L since his most recent hospitalization. His mother reports home oxygen saturations never went below 92%. In the ED EKG showed normal sinusrhythm, chest x-ray showed no acute process. Labs showed hemoglobin 10.6, same as at discharge for his hospitalization for anemia, and BUN 48 and creatinine 5.78, both improved from most recent hospitalization. The ER was planning for discharge home when mother noticed changes in his breathing. ABG was obtained and showed pH 7.11, CO2 70.8, O2 79.9. He was placed on BiPAP and admitted. Repeat ABG this morning showed no significant change. Patient is resting comfortably in bed and mother reports no significant change in his status since admission. Review of Systems Review of Systems Unobtainable due to mental status Review of systems: 10 point review of systems is negative aside from noted above. [facility] Medical History (Updated 05/18/23 @ 03:13 by Nicole Nolan RN) A-V fistula LUE Adult hyaline membrane disease Asthma Blind Cerebral palsy Cystic BPD (bronchopulmonary dysplasia) ESRD (end stage renal disease) on dialysis M + F Hearing impaired Hypertension Non-verbal learning disorder Panacinar emphysema Pulmonary hypertension Surgical History H/O eye surgery Attempted to reattach retina x 1, 1984, 1985 H/O inguinal hernia repair 1985-right, 1985-left History of placement of ear tubes 1985, 1986 Social History Smoking Status: Never smoker Substance Use Type: None Social History Comments: Mother Meds Medications and Allergies Allergies ciprofloxacin [From Cipro] Allergy (Verified 05/17/23 12:29) Hives latex Allergy (Verified 05/17/23 12:29) Hives Home Medications bumetanide 2 mg tablet 2 mg PO QAM 04/28/23 [History Confirmed 05/17/23] clonazepam 0.5 mg tablet 0.5 mg PO TID 04/28/23 [History Confirmed 05/17/23] dextromethorphan 20 mg-quinidine 10 mg capsule (Nuedexta) 1 cap PO Q12H 04/28/23[History Confirmed 05/17/23] diltiazem HCl 30 mg tablet 30 mg PO TID 04/28/23 [History Confirmed 05/17/23] lidocaine-prilocaine 2.5 %-2.5 % topical cream 1 applic topical ONCE 04/28/23 [History Confirmed 05/17/23] metoprolol tartrate 25 mg tablet 25 mg PO BID 04/28/23 [History Confirmed 05/17/23] sildenafil (pulm.hypertension) 20 mg tablet 20 mg PO TID 04/28/23 [History Confirmed 05/17/23] vitamin B complex-vitamin C 100 mg-folic acid 1 mg tablet (Dialyvite) 1 tab PO QHS 04/28/23 [History Confirmed 05/17/23] ipratropium bromide 0.02 % solution for inhalation 500 mcg inhalation Q8H 04/29/23 [History Confirmed 05/17/23] levalbuterol HCl 1.25 mg/3 mL solution for nebulization 1.25 mg inhalation Q8H 04/29/23 [History Confirmed 05/17/23] omeprazole 20 mg tablet,delayed release 20 mg PO BID #60 tabs 05/07/23 [Rx Confirmed 05/17/23] maltodextrin 1 ea PO DAILY 05/17/23 [History Confirmed 05/17/23] Exam Physical Exam Vital Signs: Temp Pulse Resp BP Pulse Ox O2 Del Method O2 Flow Rate 97.8 F 74 16 128/68 95 BiPAP 3 05/18/23 08:41 05/18/23 09:26 05/18/23 09:26 05/18/23 08:41 05/18/23 09:26 05/18/23 08:41 05/17/23 20:44 FiO2 40 05/18/23 09:26 Narrative: Constitutional: Sleeping, on BiPAP, resting in bed comfortably HEENT: Moist mucous membranes, neck supple, blind Cardiovascular: RRR, no M/R/G, normal S1 and S2, no JVD Respiratory: Sounds diminished bilaterally, on BiPAP GI: Soft, NTND, normoactive bowel sounds : Deferred Neuro: Nonverbal, responding to stimulation but not fully arousable Skin: No rash, bruising, abrasions noted. Extremities: No clubbing, cyanosis or edema. Left upper extremity AV fistula Psych: Deferred Const Nutritional Appearance: average body habitus Orientation: not alert, not awake and obtunded Limitations: altered mental status HEENT Head: normal to inspection, normocephalic and atraumatic Ears: external ears normal Nose: external nose normal Face and sinus: normal facial exam Eyes Eyelids: eyelids normal Sclera: sclerae normal Neck Neck: normal visual inspection and no lymphadenopathy Chest Chest palpation & inspection: normal inspection of the chest Resp Auscultation: clear to auscultation bilaterally, no rales, no rhonchi and no wheezes Cardio Rate: regular rate Rhythm: regular rhythm Heart Sounds: S1 normal, S2 normal, no gallops, no murmurs and no rubs GI Inspection: normal to inspection Palpation: soft Auscultation: hypoactive bowel sounds Rectal Exam: deferred General: deferred Skin General: no rashes or lesions noted (Warm and dry) Extrem General: normal to inspection (SCDs in place) and no pedal edema Results Intake and Output I&O - Last 24 Hours: Intake & Output 05/17/23 05/18/23 05/18/23 23:59 07:59 15:59 Intake Total 100 / 100 50 / 50 Balance 100 / 100 50 / 50 Weight 65.1 kg 67.7 kg Labs 05/18/23 04:15 05/18/23 04:15 Microbiology Micro: 05/18/23 09:52 Urine Culture - Pending Straight Catheter 05/17/23 14:13 Blood Culture - Pending Blood - Right Antecubital 05/17/23 14:18 Blood Culture - Pending Blood - Pic Line Imaging and Cardiology Chest x-ray: Status: image reviewed by me Additional comments: Date of Service: 05/17/23 XR/XR chest 1V portable: Nausea/Vomiting/Diarrhea ? PORTABLE AP ERECT CHEST? 1600 hours CLINICAL HISTORY:? Nausea, fatigue, vomiting, diarrhea and snoring COMPARISON:? 05/09/2023 A right-sided PICC line is again visualized.? The lungs are hyperinflated and there are symmetric hyperlucency of the right in comparison to the left.? No focal consolidation is noted.? No sizable effusion or pneumothorax is seen.? Thecardiac and mediastinal contours are similar.? The bony structures are osteopenic. XR/XR chest 1V portable IMPRESSION: ? OBSTRUCTIVE LUNG DISEASE. ? NO ACUTE FINDINGS. Assessment/Plan (1) Anemia of renal disease: (2) Weakness: (3) Acute hypercapnic respiratory failure: (4) ESRD (end stage renal disease) on dialysis: (5) Cerebral palsy: Plan Patient is a 37-year-old male with past medical history of cerebral palsy, blindness, ESRD on HD, asthma, emphysema, severe pulmonary hypertension being treated for acute hypercapnic respiratory failure. His presentation is somewhat similar to his most recent hospitalization for symptomatic anemia, however his hemoglobin has remained stable since discharge. There was also concern for aspiration pneumonia but WBC is within normal limits and chest x-ray shows no acute processes. Given his recent hospitalizations and multiple chronic diagnoses including cerebral palsy, his acute hypercapnic respiratory failure ismost likely due to insufficient 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 response for respiratory compensation. We will consider increasing BiPAP settings and continue to monitor. Case discussed and patient seen on rounds in conjunction with Dr. Rust. Patient was interviewed and examined. Vital signs and labs were reviewed. Exam is notable for BiPAP mask in place. Lungs were clear without obvious wheezes, rhonchi, nor rales. Cardiovascular exam was regular without murmur or gallop. Abdomen was soft to palpation without obvious tenderness nor guarding. Extremities reveal no edema with SCDs in place. I agree with the note above. Patient has prior history of cerebral palsy and is nonverbal but is ambulatory per family. 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 There is a questionable history of a pulmonary vascular filling defect with patient taken off anticoagulation at last visit due to anemia though without obvious source of GI blood losswith deferral of endoscopy due to reported history of pulmonary hypertension treated with sildenafil monotherapy. The patient has no obvious pulmonary limitations to activity. Given the patient's overall clinical scenario, the patient's hypoventilation may be more 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 related exacerbated by an acute issue with note of prior ESBL producing E. coli presumably from the urine and concernsfor prostatitis. Patient has been on ertapenem IV. His exam and laboratory values as well as radiographic studies do not suggest an obvious other etiology for worsening of 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 function. Cultures are pending and will give the patient adose of vancomycin which should last given the patient's chronic end-stage renaldisease. The patient is confirmed to be DNR CCA without intubation. We will change him to noninvasive positive pressure ventilation with average volume assured pressure support as I suspect this is poor a central hypercapnic respiratory failure and not necessarily obstructive. We will follow with you and provide assistance as able. Documented By: Carlos Rust MD, RES 05/18/23 1015 Signed By: <Electronically signed by MD LIZZY Rust> 05/18/23 1210 <Electronically signed by MD Juve Blackwell> 05/18/23 130[address] [facility] Work Phone: 1(637) 461-484609-14-2023 Progress note Author Rajendra Pierce [facility] May 18, 2023 11:49am Note Date/Time May 18, 2023 8:41am [facility] [address] [place] [address] Hospitalist Progress Note Signed Patient: Ruddy Palmer MR#: [id number] : 1985 Acct:[id number] Age/Sex: 37 / M Adm Date: 3 Loc: 4 Room: [address] [place] [address] Type: ADM IN Attending Dr: Rajendra Pierce MD Copies to: ~ Date of Service: 05/18/2023 Subjective Subjective Narrative: Patient sleeping in bed with BiPAP on, no family at bedside. Does grimace to painful stimuli but otherwise does not arouse to verbal stimuli. Is blind and hearing impaired. Update mother at bedside when we returned to room. States he does snore loudly but has never witnessed any apneic episodes. She does state that prior to coming hospital he did have a lot of salivating and possibly emesis episode while sleeping. Otherwise, she does just endorse generalized weakness. Patientdoes not speak at baseline. Exam Physical Exam Vital Signs: Temp Pulse Resp BP Pulse Ox O2 Del Method O2 Flow Rate 97.7 F 67 16 108/69 96 BiPAP 3 05/17/23 23:39 05/18/23 05:25 05/18/23 05:25 05/18/23 04:00 05/18/23 05:25 05/18/23 04:00 05/17/23 20:44 FiO2 40 05/18/23 05:25 Narrative: CONST- Thin HEAD - Normocephalic and atraumatic EENT-Blind NECK-Supple, no cervical lymphadenopathy CARDIAC-normal rate, regular rhythm, S1 & S2. PULM-diminished, bipap on, no accessory muscle use or cough noted ABD - Soft.? Bowel sounds are normal. No distention. No tenderness noted EXTREM-no edema BLE calves, nontender SKIN- W/D good turgor MS-unable to assess as patient does not participate in exam, AV fistula to LUE NEURO- nonverbal PSYCH-unable to assess Objective Lab Results 05/18/23 04:15 05/18/23 04:15 ABG Interpretation ABG results: 05/17/23 05/18/23 20:37 05:32 ABG pH 7.11 L* 7.13 L* ABG pCO2 70.8 H* 71.9 H* ABG pO2 79.9 L 56.5 L ABG HCO3 22.1 L 23.1 ABG Total CO2 24.3 25.3 ABG O2 Saturation 95.3 89.1 L ABG O2 Content 6.8 6.6 ABG Base Excess -8.0 L -7.0 L Meds Allergies and Active Meds Allergies ciprofloxacin [From Cipro] Allergy (Verified 05/17/23 12:29) Hives latex Allergy (Verified 05/17/23 12:29) Hives Active Meds: Active Medications Generic Name Dose Route Start Last Admin Trade Name Freq PRN Reason Stop Dose Admin Acetaminophen 650 mg 05/17/23 22:35 Acetaminophen 325 Mg Tablet PO 05/16/24 22:34 Q6HR PRN Pain Scale 1 - 3 or fever Bumetanide 2 mg 05/18/23 09:00 Bumetanide 2 Mg Tablet PO 05/17/24 08:59 [id number] PENNY Clonazepam 0.5 mg 05/17/23 22:50 05/18/23 00:56 Clonazepam 0.5 Mg Tablet PO 11/13/23 22:49 Not Given TID PENNY Diltiazem HCl 30 mg 05/17/23 22:50 05/18/23 00:56 Diltiazem 30 Mg Tablet PO 05/16/24 22:49 30 mg TID PENNY Administration Ertapenem 0.5 gm/ Sodium 100 mls @ 200 mls/hr 05/18/23 19:00 Chloride IV 05/17/24 18:59 Q24H PENNY Ipratropium [place] 0.5 mg 05/18/23 09:00 Ipratropium [place] 0.5 Mg/2.5 Ml Vial.Neb INHALATION 05/16/24 22:59 TID PENNY Levalbuterol HCl 1.25 mg 05/18/23 09:00 Levalbuterol Hcl *Nf* 1.25 Mg/3 Ml Vial.Neb INHALATION 05/16/24 22:59 TID [facility] Protocol Metoprolol Tartrate 25 mg 05/17/23 22:50 05/18/23 00:56 Metoprolol Tartrate 25 Mg Tablet PO 05/16/24 22:49 25 mg BID PENNY Administration Non-Formulary Medication 1 each 05/18/23 09:00 Maltodextrin PO 05/17/24 08:59 DAILY PENNY Non-Formulary Medication 1 cap 05/17/23 23:00 Dextromethorphan-Quinidine [Nuedexta] PO 05/16/24 22:59 Q12H PENNY Pantoprazole Sodium 40 mg 05/18/23 23:30 Pantoprazole 40 Mg Tablet. PO 05/17/24 23:29 BID PENNY Sildenafil Citrate 20 mg 05/17/23 22:50 05/18/23 00:56 Sildenafil Citrate 20 Mg Tablet PO 05/16/24 22:49 20 mg TID PENNY Administration Sodium Chloride 0 ml 05/17/23 12:28 05/17/23 19:14 Sodium Chloride 0.9 % 10 Ml Syringe IV-PUSH 05/16/24 12:27 10 ml PRN PRN Administration Flush Sodium Chloride 0 ml 05/18/23 06:00 05/18/23 05:14 Sodium Chloride 0.9 % 10 Ml Syringe IV-PUSH 05/17/24 05:59 10 ml QSHIFT PENNY Administration Vitamin B Complex/Vit C/Folic Acid 1 tab 05/18/23 22:00 Folic Acid/Vit Bcomp,C 1 Tab Tablet PO 05/17/24 21:59 QHS [facility] A&P - Hospitalist Assessment/Plan (1) Acute hypercapnic respiratory failure: (2) E coli bacteremia: (3) ESRD (end stage renal disease): Plan Acute hypercapnic respiratory failure I suspect that the patient may have obstructive sleep apnea or hypoventilation syndrome Patient also reportedly has obstructive lung disease according to his mom. No prior history of smoking. Suspect that patient has restrictive lung disease Chronic hypoxic respiratory failure?wears oxygen at all times at home ? Continue BiPAP overnight and as needed ? Patient wears 3 L nasal cannula at all times ? Repeat ABG showed pH 7.13, PCO2 71.9, PO2 56.5, 89% O2 sat -Pulmonology consulted Defer further needed diagnostic and therapeutic invention related to his respiratory status and hypoventilation to pulmonary team Weakness and fatigue ? 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 Consult nephrology -Left upper extremity AV fistula?patient has had fistula declotted before ? US AV fistula, read pending -BUN 40, creatinine 5.78 upon admission Chronic conditions E. coli bacteremia?continue ertapenem Hearing impaired, blindness?assist with mealtimes Cerebral palsy Severe pulmonary hypertension?continue sildenafil HTN?monitor, continue diltiazem, metoprolol, Bumex?not on hemodialysis days Panacinar emphysema, bronchopulmonary dysplasia, asthma?continue nebulizers DVT PPx-SCDs, nonpharmacological therapy due to anemia, recent GI bleed Diet order-pur?ed CODE STATUS-DNR CCA without intubation as discussed with mother and prior records Discussed this case with his mom at the bedside. Documented By: Rajendra Pierce MD 05/18/23 0835 Signed By: <Electronically signed by Rajendra Pierce MD> 05/18/23 1149 <Electronically signed by DO LIZZY Hernandez> 05/18/23 110[address] [facility] Work Phone: 1(253) 319-612009-08-2023 Discharge summary Author Michael Gonzalez [facility] May 12, 2023 1:55pm Note Date/Time May 12, 2023 1:55pm [facility] [address] [place] [address] Discharge Summary Signed Patient: Ruddy Palmer MR#: [id number] : 1985 Acct:[id number] Age/Sex: 37 / M Adm Date: 3 Loc: Room: [address] [place] [address]: Michael Gonzalez MD Copies to: MD Michael Rutledge MD~ Providers Date of Discharge: 05/12/23 Discharging Provider: Michael Gonzalez Primary Care Provider: Denis Melvin Consults: 05/09/23 18:50 Consult to Occupational Therapy Routine Consult to Physical Therapy Routine 05/09/23 20:00 Consult to Speech Therapy Routine 05/09/23 20:03 Consult to Nephrology Routine 05/10/23 00:44 Consult to Dietitian Routine 05/10/23 08:30 Speech Therapy Modified Barium Swallow ONCE 05/11/23 13:15 Consult to Gastroenterology Routine Discharge Diagnosis (1) Symptomatic anemia: (2) ESRD (end stage renal disease): (3) E coli bacteremia: Final Diagnosis Final Discharge Diagnosis: Acute blood loss anemia Symptomatic anemia Concern for GI bleed E.coli Bacteremia- being treated Suspected prostatitis source ESRD on HD Chronic hypoxic respiratory failure on home oxygen Physical debility Functional decline 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, Cerebral Palsy, Blindness, Hearing impairment Summary Hospital Course Hospital course: Patient is a 37-year-old male past medical history of hypertension, 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 No report of nausea, vomiting, abdominal pain, melena, coffee-ground emesis, rectal bleed.? Patient had dialysis session yesterday which they could not remove any fluids due to hypotension.? Patient normally gets around as per mother and participate in activities but currently has been very weak.? He was discharged recently from our facility on ertapenem for E. coli bacteremia with suspected source of prostatitis with plan to complete 4 weeks of antibiotics.? Mother also reports that he has been waking upwith redness and puffiness under his right eye, no other rash on his body, she suspects side effects from ertapenem. It did go resolve on its own.? She broughthim in today for further evaluation and management.? In the ER, he was found to have low hemoglobin compared to his baseline with borderline blood pressure which appears to be symptomatic anemia for which she was ordered 1 unit of bloodin the ER, occult blood was positive.? Decision was made to admit for further evaluation and management. During hospital course, patient required multiple blood transfusions total of 3 units while here with improvement in Hb to 10.6 as of most recent check. He underwent HD as per nephrology. Patient seems back to baseline status. GI was consulted and recommended to investigate GI etiology in outpatient settings at tertiary care center where optimal management on pulmonary HTN can be done prioranesthesia or any other elective endoscopic procedures. This has been discussed between our GI specialist and patient's parents and they agreed to the plan. Patient remained hemodynamically stable at this time and suitable for discharge with outpatient follow ups. Advised to continue to hold Eliquis for now in the setting of anemia of unclear etiology and follow with PCP to check H/H and assess if need to restart Eliquis. Advised to continue with Ertapenem IV AB as prior with no change. He tolerated this AB while here with no adverse event noted or reported. Patient is stable for discharge at this time. Condition Condition at Discharge: Stable Time Spent with Patient Time spent providing/coordinating discharge services (# min): 37 Diagnostic Studies Completed and Pending Studies Pending studies at discharge: 05/09/23 20:32 Blood Culture Stat 05/12/23 20:00 Hemoglobin and Hematocrit Q6HR Preliminary micro results at discharge 05/09/23 20:32 Blood Culture - Preliminary Blood - Right Hand No Growth 2 Days 05/09/23 16:23 Blood Culture - Preliminary Blood - Pic Line No Growth 2 Days Labs on day of discharge: 05/12/23 05:00: PHA Creatinine Clear 13.53, Sodium 133 L, Potassium 4.2, Chloride 99, Carbon Dioxide 22.4, Anion Gap 15.8 H, BUN 86 H, Creatinine 7.10 H,Est GFR (CKD- EPI) 9.403, Glucose 96, Calcium 8.4 L 05/12/23 05:00: Corrected WBC 9.1, RBC 3.50 L, Hgb 10.6 L, Hct 31.9 L D, MCV 91.1, MCH 30.3, MCHC 33.2, RDW 14.8, Plt Count 300, MPV 7.6 05/11/23 14:30: Hgb 7.3 L, Hct 22.2 L 05/09/23 20:31: Blood Type A Positive, Antibody Screen Negative, Crossmatch (AHG) See Detail Exam Physical Exam Vital Signs: Temp Pulse Resp BP Pulse Ox O2 Del Method O2 Flow Rate 98.1 F 93 H 16 134/73 97 Nasal Cannula 3 05/12/23 13:13 05/12/23 13:13 05/12/23 13:13 05/12/23 13:13 05/12/23 13:13 05/12/23 13:13 05/12/23 13:13 FiO2 3 05/12/23 09:30 Narrative: Const General: comfortable HEENT normal oropharyngeal mucosa without any ulcers or exudates Eyes: blind in both eyes. Pulmonary Auscultation: Diminished breath sounds, no crackles, no wheezes Cardiovascular Rate: normal rate Rhythm: regular rhythm Heart Sounds: S1 normal, S2 normal and no murmurs GI Inspection: non-distended Palpation: soft, not firm and nontender. No rigidity or rebound. Deferred Neuro General: alert and awake. seems at baseline. Extrem General: no cyanosis, no pedal edema Discharge Plan Discharge Plan Patient Disposition: Home Health [facility] Activity: Ambulate as Tolerated Diet: Renal and Other Comment: See speech therapy recommendations below. Additional Instructions: Continue oxygen as per chronic orders Continue hemodialysis treatments as before Speech therapy recommendations: *Constant feeding supervision with meals *Thin liquids *Pureed solids and meats *Crush pills and give in applesauce *Sit upright at 90 degrees during all oral intake *Take small bites and sips *Pace yourself and eat at a slow-rate Home health to manage: -RN and PT to eval and treat -Monitor VS per protocol -Fall precautions -Perform GI and respiratory assessments -Assist with medication management and education -Monitor for signs of infection or bleeding -Monitor intake and output -Daily weight -Continue oxygen as per chronic orders -Continue hemodialysis treatments as before -Maintain and perform routine care to right upper arm PICC line *Resume IV antibiotics as previously ordered -Speech therapy recommendations: *Constant feeding supervision with meals *Thin liquids *Pureed solids and meats *Crush pills and give in applesauce *Sit upright at 90 degrees during all oral intake *Take small bites and sips *Pace yourself and eat at a slow-rate GI recommends an outpatient EGD be arranged in a tertiary care center. Instructions: Anemia of Inflammation (DC), Chronic Kidney Disease (DC), Normocytic Normochromic Anemia (DC) Prescriptions: Continued bumetanide 2 mg Tablet 2 mg PO QAM Rx Instructions: only on non-dialysis days. (T,W,T,S,S) clonazepam 0.5 mg Tablet 0.5 mg PO TID lidocaine-prilocaine 2.5-2.5 % Cream 1 applic TOPICAL ONCE Rx Instructions: 45 minutes prior to dialysis diltiazem HCl 30 mg Tablet 30 mg PO TID metoprolol tartrate 25 mg Tablet 25 mg PO BID sildenafil (pulm.hypertension) 20 mg Tablet 20 mg PO TID Rx Instructions: administer doses at least 4-6 hours apart Dialyvite 100-1 mg Tablet 1 tab PO DAILY Nuedexta 20-10 mg Capsule 1 cap PO Q12H levalbuterol HCl 1.25 mg/3 mL solution for nebulization 1.25 mg INHALATION Q8H Patient Comments: USE 1 VIAL VIA NEBULIZER EVERY 8 HOURS ipratropium bromide 0.02 % solution 2.5 ml inhalation Q8H Patient Comments: USE 1 VIAL VIA NEBULIZER EVERY 8 HOURS ertapenem 1 gram recon soln 0.5 g IV Q24H 28 Days Qty: 28 0RF Rx Instructions: written 05/07 x28 days omeprazole 20 mg Tablet,Delayed Release (Dr/Ec) 20 mg PO BID Qty: 60 0RF Held Eliquis 2.5 mg Tablet 2.5 mg PO BID Hold Instructions: Recommend to hold Eliquis for now due to anemia. Follow upwith PCP regarding this if need to restart. Also reach out to GI clinic to make an appointment at [facility] or [facility] for Endoscopy if needed. Other Ambulatory Orders: Initiate Home Health (Routine) Timeframe: [id number] Location: Determined by Patient Ordered By: Michael Gonzalez Follow Up: Denis Melvin MD [Primary Care Provider] - 05/17/23 11:15 am (You have been scheduled for a follow up appointment for the following date and time, please call to reschedule if needed.) Documented By: Michael Gonzalez MD 05/12/23 13 48 Signed By: <Electronically signed by Michael Gonzalez MD> 05/12/23 1355 [facility] Work Phone: 1(671) 652-551709-08-2023 Progress note Author Gabby Bedolla [facility] May 12, 2023 12:47pm Note Date/Time May 12, 2023 12:47pm [facility] [address] [place] [address] Nephrology Progress Note Signed Patient: Ruddy Palmer MR#: [id number] : 1985 Acct:[id number] Age/Sex: 37 / M Adm Date: 3 Loc: Room: [address] [place] [address] Type: ADM IN Attending Dr: Michael Gonzalez MD Copies to: ~ Date of Service: 05/12/2023 Subjective Subjective Narrative: This is a 37-year-old male patient with a past medical history of cerebral palsy, infantile intra cranial hemorrhage, hypertension, blindness and deafness,COPD, chronic respiratory failure, pulmonary hypertension, history of PE on Eliquis, history of end-stage renal disease on twice weekly hemodialysis at [facility]. Patient was brought in to the hospital by his mother for generalized weakness and fatigue for the last couple days. Last hemodialysis session was Monday without Ultrafiltration due to low blood pressure. Normally patient can move around but he has not been able to do so for the last couple days. In the emergency room hemoglobin was found to be low at 7.6 g deciliter. Eliquis was held and patient was given 1 unit of blood. Patient currently on Protonix 40 mg IV twice daily Of note, patient was recently admitted to the hospital for E. coli bacteremia from prostatitis and was discharged with IV ertapenem to complete 4 weeks course Currently he is being treated with meropenem. Patient was seen and examined in his room. Patient is awake cannot talk. Patient is coughing. Remains on 3 L nasal cannula. Interval history: Patient was seen and examined during hemodialysis session today. Vital signs stable. Patient is up able to communicate GI evaluated the patient for GI bleed. Patient deemed high risk for EGD/colonoscopy. Patient received 1 unit of blood yesterday and hemoglobin is up to 10.6 g deciliter. There is no active bleeding Exam Physical Exam Vital Signs: Temp Pulse Resp BP Pulse Ox O2 Del Method O2 Flow Rate 97.8 F 98 H 20 120/66 96 Nasal Cannula 3 05/12/23 09:30 05/12/23 12:30 05/12/23 12:14 05/12/23 12:30 05/12/23 09:30 05/12/23 09:30 05/12/23 08:00 FiO2 3 05/12/23 09:30 Narrative: General: No acute distress Head :atraumatic normocephalic Eyes: PERRLA. Neck: no JVD no bruit. Heart: S1-S2. RRR Respiratory: Clear to auscultation. No wheezing. No crackles Abdomen: Soft, positive bowel sounds,no tenderness. Neurology: Not oriented. Patient has history of cerebral palsy. No focal deficits Extremity. No cyanosis. No edema. Lower extremity muscle wasting Skin: No skin rash Objective Intake and Output I&O: Intake & Output 05/09/23 05/10/23 05/11/23 05/12/23 23:59 23:59 23:59 23:59 Intake Total 200 / 200 280 / 280 875 / 875 700 / 700 Balance 200 / 200 280 / 280 875 / 875 700 / 700 Weight 65.3 kg 65.4 kg 67.8 kg 67.8 kg Meds and Allergies Meds: Active Medications Acetaminophen (Acetaminophen 325 Mg Tablet) 650 mg PO Q6HR PRN PRN Reason: Pain Scale 1 - 3 or fever Stop: 05/08/24 18:44 Bumetanide (Bumetanide 2 Mg Tablet) 2 mg PO Camacho@0900 [facility] Stop: 05/09/24 08:59 Last Admin: 05/11/23 09:28 Dose: 2 mg Clonazepam (Clonazepam 0.5 Mg Tablet) 0.5 mg PO TID [facility] Stop: 11/07/23 21:59 Last Admin: 05/11/23 22:21 Dose: 0.5 mg Darbepoetin Tatianna (Darbepoetin Tatianna In Polysorbat 40 Mcg/Ml Vial) 40 mcg IV- PUSHFR@10 [facility] Stop: 05/11/24 09:59 Last Admin: 05/12/23 10:10 Dose: 40 mcg Diltiazem HCl (Diltiazem 30 Mg Tablet) 30 mg PO TID [facility] Stop: 05/08/24 21:59 Last Admin: 05/11/23 22:21 Dose: 30 mg Diphenhydramine HCl (Diphenhydramine 50 Mg/Ml Vial) 25 mg IV-PUSH Q8H PRN PRN Reason: Severe Rash or Itching Stop: 05/08/24 18:44 Ferric Sodium Gluconate Complex (Sodium Ferric Gluconat/Sucrose 62.5 Mg/5 Ml Vial) 62.5 mg IV-PUSH MO [facility] Stop: 05/14/24 08:01 Ertapenem 0.5 gm/ Sodium (Chloride) 100 mls @ 200 mls/hr IV Q24H [facility] Stop: 05/09/24 17:59 Last Infusion: 05/11/23 19:20 Dose: Infused Sodium Chloride (0.9 % Sodium Chloride) 500 mls @ 20 mls/hr IV PROTOCOL PRN PRN Reason: BLOOD TRANSFUSION Stop: 05/12/23 15:09 Sodium Chloride (0.9% Sodium Chloride 1,000 Ml) 1,000 mls @ 0 mls/hr MISCELLANE.Q0M PRN PRN Reason: Dialysis Stop: 05/11/24 08:01 Last Infusion: 05/12/23 10:12 Dose: Infused Ipratropium [place] (Ipratropium [place] 0.5 Mg/2.5 Ml Vial.Neb) 0.5 mg INHALATION QID.RESP [facility] Stop: 05/08/24 19:59 Last Admin: 05/12/23 12:14 Dose: 0.5 mg Lidocaine/Prilocaine (Lidocaine-Prilocaine Cr 2.5-2.5% 5 Gm Tube) 1 applic TOPICAL MOFR@0800 [facility] Stop: 05/11/24 07:59 Last Admin: 05/12/23 08:58 Dose: 1 applic Metoprolol Tartrate (Metoprolol Tartrate 25 Mg Tablet) 25 mg PO BID [facility] Stop: 05/08/24 20:59 Last Admin: 05/11/23 20:11 Dose: 25 mg Non-Formulary Medication (Dextromethorphan-Quinidine [Nuedexta]) 1 cap PO Q12H [facility] Stop: 05/10/24 14:29 Pantoprazole Sodium (Pantoprazole 40 Mg Vial) 40 mg IV-PUSH BID [facility] Stop: 05/08/24 20:59 Last Admin: 05/11/23 20:11 Dose: 40 mg Paricalcitol (Paricalcitol 10 Mcg/2 Ml Vial) 2 mcg IV-PUSH MoFr@09 [facility] Stop: 05/11/24 08:14 Last Admin: 05/12/23 10:10 Dose: 2 mcg Prochlorperazine Edisylate (Prochlorperazine Edisylate 10 Mg/2 Ml Vial) 5 mg IV- PUSH Q4H PRN PRN Reason: Nausea And Vomiting Stop: 05/08/24 18:44 Sodium Chloride (Sodium Chloride 0.9 % 10 Ml Syringe) 0 ml IV-PUSH PRN PRN PRN Reason: Flush Stop: 05/08/24 15:45 Last Admin: 05/12/23 10:11 Dose: 10 ml Sodium Chloride (Sodium Chloride 0.9 % 10 Ml Syringe) 10 ml IV-PUSH PRN PRN PRN Reason: Flush Stop: 05/08/24 18:44 Sodium Chloride (Sodium Chloride 0.9 % 10 Ml Vial.Pf) 10 ml INJECTION PRN PRN PRN Reason: Dilution Stop: 05/08/24 18:44 Last Admin: 05/11/23 09:28 Dose: 10 ml Sodium Chloride (Sodium Chloride 0.9 % 10 Ml Syringe) 0 ml IV-PUSH PRN PRN PRN Reason: Flush Stop: 05/11/24 08:01 Vitamin B Complex/Vit C/Folic Acid (Folic Acid/Vit Bcomp,C 1 Tab Tablet) 1 tab PO DAILY [facility] Stop: 05/09/24 08:59 Last Admin: 05/11/23 09:32 Dose: 1 tab Allergies ciprofloxacin [From Cipro] Allergy (Verified 05/09/23 15:47) Hives latex Allergy (Verified 05/09/23 15:47) Hives Results Labs 05/12/23 05:00 05/12/23 05:00 Labs: 05/12/23 05:00 BUN 86 H Creatinine 7.10 H Radiology Impressions Impressions - last 24 hours: Any impression(s) listed above is documentation that was entered by the reading physician into a diagnostic report(s) for Ruddy Palmer. I have reviewed the report(s) and am incorporating any findings in the treatment plan of this patient where applicable. A&P - Nephrology Assessment/Plan (1) ESRD (end stage renal disease): Plan: Patient has been on twice weekly hemodialysis schedule Monday and Monday. Patient goes to [facility]. Patient has functioning left upper extremity AVfistula (2) Symptomatic anemia: Plan: Patient presented with generalized weakness and fatigue. He was found to have low hemoglobin 7.6 g deciliter. Fecal occult test in the stool came back positive. Currently on Protonix. Hemoglobin is up to 9.2 g deciliter (3) E coli bacteremia: Plan: Patient was admitted recently for E. coli bacteremia from prostatitis. Currently receiving ertapenem IV as outpatient. Antibiotics was switched to meropenem while inpatient Plan - Hemodialysis session today. Blood flow rate 400, dialysate flow rate 500, ultrafiltration 2 L -Blood pressure and volume status are well controlled. Patient is back on metoprolol. Diltiazem remains on hold for low blood pressure yesterday. -Eliquis remains on hold for GI bleed. Continue to monitor H&H and transfuse asneeded. Currently patient on PPI. Will defer consulting GI to the primary hospitalist service. -Continue Zemplar per outpatient hemodialysis order -Patient is on ertapenem FOr E. coli bacteremia. Will defer ertapenem dosing to the pharmacy. -We will give the patient 1 dose of Aranesp 60 mcg IV 1 time. Continue Ferrlecit 62.5 mg IV weekly -Check renal function panel before hemodialysis to adjust order as needed Documented By: Gabby Bedolla MD 05/12/23 1244 Signed By: <Electronically signed by Gabby Bedolla MD> 05/12/23 1247 [facility] Work Phone: [phone]) 650-427509-07-2023 Consult note Author Elizabeth Benson [facility] May 11, 2023 7:42pm Note Date/Time May 11, 2023 7:28pm [facility] [address] [place] [address] Gastroenterology Consult Note Signed Patient: Ruddy Palmer MR#: [id number] : 1985 Acct:[id number] Age/Sex: 37 / M Adm Date: 3 Loc: Room: [address] [place] [address] Type: ADM IN Attending Dr: Michael Gonzalez MD Copies to: MD Elizabeth Rutledge MD Obaydah M Daromar, MD~ HPI Data of Consult Date of Consultation: 05/11/23 Requesting Physician: Michael Gonzalez MD Consult Narrative History of present illness: Mr. 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 As per the mother, patient has been having generalized weakness and fatigue. Per mother patient does not have black stools. he sometime gets dark brown BMs. His last BM was yesterday and it was light brown. 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 Medications and Allergies Allergies ciprofloxacin [From Cipro] Allergy (Verified 05/09/23 15:47) Hives latex Allergy (Verified 05/09/23 15:47) Hives Home Medications apixaban 2.5 mg tablet (Eliquis) 2.5 mg PO BID 04/28/23 [History Confirmed 05/10/23] bumetanide 2 mg tablet 2 mg PO QAM 04/28/23 [History Confirmed 05/10/23] clonazepam 0.5 mg tablet 0.5 mg PO TID 04/28/23 [History Confirmed 05/10/23] dextromethorphan 20 mg-quinidine 10 mg capsule (Nuedexta) 1 cap PO Q12H 04/28/23[History Confirmed 05/10/23] diltiazem HCl 30 mg tablet 30 mg PO TID 04/28/23 [History Confirmed 05/10/23] lidocaine-prilocaine 2.5 %-2.5 % topical cream 1 applic topical ONCE 04/28/23 [History Confirmed 05/10/23] metoprolol tartrate 25 mg tablet 25 mg PO BID 04/28/23 [History Confirmed 05/10/23] sildenafil (pulm.hypertension) 20 mg tablet 20 mg PO TID 04/28/23 [History Confirmed 05/10/23] vitamin B complex-vitamin C 100 mg-folic acid 1 mg tablet (Dialyvite) 1 tab PO DAILY 04/28/23 [History Confirmed 05/10/23] ipratropium bromide 0.02 % solution for inhalation 2.5 ml inhalation Q8H 04/29/23 [History Confirmed 05/10/23] levalbuterol HCl 1.25 mg/3 mL solution for nebulization 1.25 mg inhalation Q8H 04/29/23 [History Confirmed 05/10/23] ertapenem 1 gram solution for injection 0.5 g IV Q24H 28 days #28 ea 05/03/23 [Rx Confirmed 05/10/23] omeprazole 20 mg tablet,delayed release 20 mg PO BID #60 tabs 05/07/23 [Rx Confirmed 05/10/23] Exam Physical Exam Vital Signs: Temp Pulse Resp BP Pulse Ox O2 Del Method O2 Flow Rate 98.0 F 96 H 18 157/80 H 95 Nasal Cannula 3 05/11/23 18:44 05/11/23 18:44 05/11/23 18:44 05/11/23 18:44 05/11/23 18:44 05/11/23 15:48 05/11/23 15:48 Narrative: General: NAD Eyes: No Icterus. Skin: No Jaundice Cardiac: RRR, No murmurs Lungs: CTA Abdomen: Soft, NT, + BS Neuro: AOX0 Results Labs Labs: Laboratory Results - last 24 hr 05/09/23 05/11/23 05/11/23 20:31 04:25 04:25 Corrected WBC 10.4 RBC 2.65 L Hgb 8.1 L Hct 24.8 L MCV 93.4 MCH 30.5 MCHC 32.7 RDW 14.6 Plt Count 350 MPV 7.3 PHA Creatinine Clear 13.57 Sodium 131 L Potassium 4.3 Chloride 99 Carbon Dioxide 22.0 Anion Gap 14.3 BUN 80 H Creatinine 6.83 H D Est GFR (CKD-EPI) 9.850 Glucose 93 Calcium 8.3 L Blood Type A Positive Antibody Screen Negative Crossmatch (AHG) See Detail 05/11/23 14:30 Corrected WBC RBC Hgb 7.3 L Hct 22.2 L MCV MCH MCHC RDW Plt Count MPV PHA Creatinine Clear Sodium Potassium Chloride Carbon Dioxide Anion Gap BUN Creatinine Est GFR (CKD-EPI) Glucose Calcium Blood Type Antibody Screen Crossmatch (AHG) A&P - Gastroenterology Assessment/Plan (1) Anemia: Code(s): D64.9 - Anemia, unspecified Status: Acute Plan Mr. 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 Hb dropped 9.2-->7.3 without evidence of overt bleeding. Last BM yesterday is light brown per family. He never had melena or hematochezia. Occult bleeding cant cause such drop in Hb. FOBT has no value in this clinical scenario. Fatigue is expected when patient has bacteremia in the setting of his other comorbidities. Patient has anemia of chronic disease related to his comorbidities including ESRD. - Based on the previous findings there is no emergent indication for endoscopic evaluation. GI etiology of anemia can be investigated as outpatient. I explainedto the family(father and mother) that I recommend endoscopic evaluation to be done in a tertiary care center where optimal management of pulmonary hypertension can be done prior to anesthesia or any elective endoscopic procedure. Both parents agreed with the plan. All questions were answered. Both reportedunderstanding. Documented By: Elizabeth Benson MD 05/11/231920 Signed By: <Electronically signed by Elizabeth Benson MD> 05/11/231941 [facility] Work Phone: 1([phone]) 360-715209-07-2023 Progress note Author Michael Gonzalez [facility] May 11, 2023 4:04pm Note Date/Time May 11, 2023 2:21pm [facility] [address] [place] [address] Hospitalist Progress Note Signed with Addenda Patient: Ruddy Palmer MR#: [id number] : 1985 Acct:[id number] Age/Sex: 37 / M Adm Date: 3 Loc: Room: [address] [place] [address] Type: ADM IN Attending Dr: Michael Gonzalez MD Copies to: ~ ADDENDUM1 Repeat hemoglobin came back 7.3 from 8.1 this am and 9.2 yesterday. Will transfuse another 2 units of blood. Continue close monitoring. Awaiting GI evaluation for input. Addendum Documented By: Michael Gonzalez MD 05/11/23 160 Addendum Signed By: <Electronically signed by Michael Gonzalez MD> 05/11/23 1604 Date of Service: 05/11/2023 Subjective Subjective Narrative: Patient was evaluated at bedside. Remained afebrile, no leukocytosis. No adverse events noted from Ertapenem overnight. His caregiver at bedside. Hb improved with blood transfusion but again downtrending today. He is again more weak today and wants to stay in bed. Caregiver mentioned dark stools during thisstay and previous hospital stay. No nausea, vomiting, diarrhea. Exam Physical Exam Vital Signs: Temp Pulse Resp BP Pulse Ox O2 Del Method O2 Flow Rate 97.7 F 85 20 143/76 H 96 Nasal Cannula 3 05/11/23 12:25 05/11/23 12:25 05/11/23 12:25 05/11/23 12:25 05/11/23 12:25 05/11/23 12:25 05/11/23 12:25 Narrative: Const General: comfortable HEENT normal oropharyngeal mucosa without any ulcers or exudates Eyes: blind in both eyes. Pulmonary Auscultation: Diminished breath sounds, no crackles, no wheezes Cardiovascular Rate: normal rate Rhythm: regular rhythm Heart Sounds: S1 normal, S2 normal and no murmurs GI Inspection: non-distended Palpation: soft, not firm and nontender. No rigidity or rebound. Deferred Neuro General: alert and awake. seems at baseline. Extrem General: no cyanosis, no pedal edema Objective Lab Results 05/11/23 04:25 05/11/23 04:25 Microbiology Results Microbiology 05/09/23 20:32 Blood - Right Hand Blood Culture - Preliminary No Growth 1 Day 05/09/23 16:23 Blood - Pic Line Blood Culture - Preliminary No Growth 1 Day Meds Allergies and Active Meds Allergies ciprofloxacin [From Cipro] Allergy (Verified 05/09/23 15:47) Hives latex Allergy (Verified 05/09/23 15:47) Hives Active Meds: Active Medications Generic Name Dose Route Start Last Admin Trade Name Freq PRN Reason Stop Dose Admin Acetaminophen 650 mg 05/09/23 18:45 Acetaminophen 325 Mg Tablet PO 05/08/24 18:44 Q6HR PRN Pain Scale 1 - 3 or fever Bumetanide 2 mg 05/10/23 09:00 05/11/23 09:28 Bumetanide 2 Mg Tablet PO 05/09/24 08:59 2 mg SuTuWeThSa@0900 [facility] Administration Diltiazem HCl 30 mg 05/09/23 22:00 Diltiazem 30 Mg Tablet PO 05/08/24 21:59 TID P[facility] Diphenhydramine HCl 25 mg 05/09/23 18:45 Diphenhydramine 50 Mg/Ml Vial IV-PUSH 05/08/24 18:44 Q8H PRN Severe Rash or Itching Ertapenem 0.5 gm/ Sodium 100 mls @ 200 mls/hr 05/10/23 18:00 05/10/23 20:42 Chloride IV 05/09/24 17:59 200 mls/hr Q24H [facility] Administration Ipratropium [place] 0.5 mg 05/10/23 08:00 05/11/23 11:50 Ipratropium [place] 0.5 Mg/2.5 Ml Vial.Neb INHALATION 05/08/24 19:59 0.5 mg QID.RESP [facility] Administration Lidocaine/Prilocaine 1 applic 05/12/23 08:00 Lidocaine-Prilocaine Cr 2.5-2.5% 5 Gm Tube TOPICAL 05/11/24 07:59 MOFR@0800 [facility] Metoprolol Tartrate 25 mg 05/09/23 21:00 Metoprolol Tartrate 25 Mg Tablet PO 05/08/24 20:59 BID PENNY Pantoprazole Sodium 40 mg 05/09/23 21:00 05/11/23 09:28 Pantoprazole 40 Mg Vial IV-PUSH 05/08/24 20:59 40 mg BID PENNY Administration Prochlorperazine Edisylate 5 mg 05/09/23 18:45 Prochlorperazine Edisylate 10 Mg/2 Ml Vial IV-PUSH 05/08/24 18:44 Q4H PRN Nausea And Vomiting Sodium Chloride 0 ml 05/09/23 15:46 05/11/23 09:28 Sodium Chloride 0.9 % 10 Ml Syringe IV-PUSH 05/08/24 15:45 10 ml PRN PRN Administration Flush Sodium Chloride 10 ml 05/09/23 18:45 Sodium Chloride 0.9 % 10 Ml Syringe IV-PUSH 05/08/24 18:44 PRN PRN Flush Sodium Chloride 10 ml 05/09/23 18:45 05/11/23 09:28 Sodium Chloride 0.9 % 10 Ml Vial.Pf INJECTION 05/08/24 18:44 10 ml PRN PRN Administration Dilution Vitamin B Complex/Vit C/Folic Acid 1 tab 05/10/23 09:00 05/11/23 09:32 Folic Acid/Vit Bcomp,C 1 Tab Tablet PO 05/09/24 08:59 1 tab DAILY [facility] Administration A&P - Hospitalist Assessment/Plan (1) Symptomatic anemia: (2) Cerebral palsy: (3) Anemia of renal disease: Plan Acute blood loss anemia Symptomatic anemia Concern for GI bleed -Vitals relatively stable on admission -Hemoglobin 7.6 on admission. transfused 1 unit in ER. Hb improved to 9.2 then today down to 8.1. -Occult blood positive -Transfuse as needed to keep Hb above 8 or symptomatic anemia or ongoing bleeding -diet per ST eval -Protonix IV BID -Antiemetics IV/IM as directed -Hold antiplatelets and anticoagulation -Avoid NSAIDs -Will consult GI for opinion. -Monitor on telemetry -Monitor for any overt GI bleed/hemodynamic status E.coli Bacteremia- being treated Pneumonia Suspected prostatitis source -Discharged recently from our facility with PICC, plan to complete 4 weeks of IVAB. Reported by family concern for allergic reaction/side effects while infusingErtapenem. He did receive Ertapenem while here with no reported adverse events. ESRD on HD Chronic hypoxic respiratory failure on home oxygen -Oxygen requirements seems at baseline -Nephrology following Physical debility Functional decline 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, Cerebral Palsy, Blindness, Hearing impairment -PT/OT following -CM following for disposition Home medications reviewed and restarted as appropriate. Resumed metoprolol and Cardizem PO home meds and Klonopin. Diet: per ST DVT ppx: SCDs, hold Eliquis for now GI ppx: Protonix Code status: DNR CCA without intubation Discussed with patient's caregiver at bedside. All questions answered. Documented By: Michael Gonzalez MD 05/11/23 14 17 Signed By: <Electronically signed by Michael Gonzalez MD> 05/11/23 [facility] Work Phone: [phone]) [phone] Progress note Author Gabby Bedolla [facility] May 11, 2023 12:09pm Note Date/Time May 11, 2023 12:08pm [facility] [address] [place] [address] Nephrology Progress Note Signed Patient: Ruddy Palmer MR#: [id number] : 1985 Acct:[id number] Age/Sex: 37 / M Adm Date: 3 Loc: Room: [address] [place] [address] Type: ADM IN Attending Dr: Michael Gonzalez MD Copies to: ~ Date of Service: 05/11/2023 Subjective Subjective Narrative: This is a 37-year-old male patient with a past medical history of cerebral palsy, infantile intra cranial hemorrhage, hypertension, blindness and deafness,COPD, chronic respiratory failure, pulmonary hypertension, history of PE on Eliquis, history of end-stage renal disease on twice weekly hemodialysis at [facility]. Patient was brought in to the hospital by his mother for generalized weakness and fatigue for the last couple days. Last hemodialysis session was Monday without Ultrafiltration due to low blood pressure. Normally patient can move around but he has not been able to do so for the last couple days. In the emergency room hemoglobin was found to be low at 7.6 g deciliter. Eliquis was held and patient was given 1 unit of blood. Patient currently on Protonix 40 mg IV twice daily Of note, patient was recently admitted to the hospital for E. coli bacteremia from prostatitis and was discharged with IV ertapenem to complete 4 weeks course Currently he is being treated with meropenem. Patient was seen and examined in his room. Patient is awake cannot talk. Patient is coughing. Remains on 3 L nasal cannula. Interval history: Patient was seen and examined in his room. Patient's mother at bedside Patient has been doing well as per the mother. There is no reported shortness of breath. Remains on nasal cannula 3 L/min which is home dose. No reported nausea vomiting. No reported chest pain Hemoglobin continues to drop. Hemoglobin down to 8.1 g/dL. Patient received 1 unit of RBCs at admission for hemoglobin of 7.2 with appropriate hemoglobin response up to 9.2 g deciliter next day. There is no active bleeding. Patient has positive fecal occult blood status. Patient is back on ertapenem for E. coli bacteremia Exam Physical Exam Vital Signs: Temp Pulse Resp BP Pulse Ox O2 Del Method O2 Flow Rate 97.4 F L 100 H 20 155/76 H 94 L Nasal Cannula 3 05/11/23 08:00 05/11/23 11:50 05/11/23 11:50 05/11/23 08:00 05/11/23 08:00 05/11/23 08:00 05/11/23 08:00 Narrative: General: No acute distress Head :atraumatic normocephalic Eyes: PERRLA. Neck: no JVD no bruit. Heart: S1-S2. RRR Respiratory: Clear to auscultation. No wheezing. No crackles Abdomen: Soft, positive bowel sounds,no tenderness. Neurology: Not oriented. Patient has history of cerebral palsy. No focal deficits Extremity. No cyanosis. No edema. Lower extremity muscle wasting Skin: No skin rash Objective Intake and Output I&O: Intake & Output 05/08/23 05/09/23 05/10/23 05/11/23 23:59 23:59 23:59 23:59 Intake Total 200 / 200 280 / 280 0 / 0 Balance 200 / 200 280 / 280 0 / 0 Weight 65.3 kg 65.4 kg 67.8 kg Meds and Allergies Meds: Active Medications Acetaminophen (Acetaminophen 325 Mg Tablet) 650 mg PO Q6HR PRN PRN Reason: Pain Scale 1 - 3 or fever Stop: 05/08/24 18:44 Bumetanide (Bumetanide 2 Mg Tablet) 2 mg PO SuTuWeThSa@0900 [facility] Stop: 05/09/24 08:59 Last Admin: 05/11/23 09:28 Dose: 2 mg Diltiazem HCl (Diltiazem 30 Mg Tablet) 30 mg PO TID [facility] Stop: 05/08/24 21:59 Diphenhydramine HCl (Diphenhydramine 50 Mg/Ml Vial) 25 mg IV-PUSH Q8H PRN PRN Reason: Severe Rash or Itching Stop: 05/08/24 18:44 Ertapenem 0.5 gm/ Sodium (Chloride) 100 mls @ 200 mls/hr IV Q24H [facility] Stop: 05/09/24 17:59 Last Admin: 05/10/23 20:42 Dose: 200 mls/hr Ipratropium [place] (Ipratropium [place] 0.5 Mg/2.5 Ml Vial.Neb) 0.5 mg INHALATION QID.RESP [facility] Stop: 05/08/24 19:59 Last Admin: 05/11/23 11:50 Dose: 0.5 mg Lidocaine/Prilocaine (Lidocaine-Prilocaine Cr 2.5-2.5% 5 Gm Tube) 1 applic TOPICAL MOFR@0800 [facility] Stop: 05/11/24 07:59 Metoprolol Tartrate (Metoprolol Tartrate 25 Mg Tablet) 25 mg PO BID [facility] Stop: 05/08/24 20:59 Pantoprazole Sodium (Pantoprazole 40 Mg Vial) 40 mg IV-PUSH BID [facility] Stop: 05/08/24 20:59 Last Admin: 05/11/23 09:28 Dose: 40 mg Prochlorperazine Edisylate (Prochlorperazine Edisylate 10 Mg/2 Ml Vial) 5 mg IV- PUSH Q4H PRN PRN Reason: Nausea And Vomiting Stop: 05/08/24 18:44 Sodium Chloride (Sodium Chloride 0.9 % 10 Ml Syringe) 0 ml IV-PUSH PRN PRN PRN Reason: Flush Stop: 05/08/24 15:45 Last Admin: 05/11/23 09:28 Dose: 10 ml Sodium Chloride (Sodium Chloride 0.9 % 10 Ml Syringe) 10 ml IV-PUSH PRN PRN PRN Reason: Flush Stop: 05/08/24 18:44 Sodium Chloride (Sodium Chloride 0.9 % 10 Ml Vial.Pf) 10 ml INJECTION PRN PRN PRN Reason: Dilution Stop: 05/08/24 18:44 Last Admin: 05/11/23 09:28 Dose: 10 ml Vitamin B Complex/Vit C/Folic Acid (Folic Acid/Vit Bcomp,C 1 Tab Tablet) 1 tab PO DAILY [facility] Stop: 05/09/24 08:59 Last Admin: 05/11/23 09:32 Dose: 1 tab Allergies ciprofloxacin [From Cipro] Allergy (Verified 05/09/23 15:47) Hives latex Allergy (Verified 05/09/23 15:47) Hives Results Labs 05/11/23 04:25 05/11/23 04:25 Labs: 05/11/23 04:25 BUN 80 H Creatinine 6.83 H D Radiology Impressions Impressions - last 24 hours: Any impression(s) listed above is documentation that was entered by the reading physician into a diagnostic report(s) for Ruddy Palmer. I have reviewed the report(s) and am incorporating any findings in the treatment plan of this patient where applicable. A&P - Nephrology Assessment/Plan (1) ESRD (end stage renal disease): Plan: Patient has been on twice weekly hemodialysis schedule Monday and Monday. Patient goes to [facility]. Patient has functioning left upper extremity AVfistula (2) Symptomatic anemia: Plan: Patient presented with generalized weakness and fatigue. He was found to have low hemoglobin 7.6 g deciliter. Fecal occult test in the stool came back positive. Currently on Protonix. Hemoglobin is up to 9.2 g deciliter (3) E coli bacteremia: Plan: Patient was admitted recently for E. coli bacteremia from prostatitis. Currently receiving ertapenem IV as outpatient. Antibiotics was switched to meropenem while inpatient Plan - There is no need for hemodialysis session today. Next hemodialysis session will be Monday. -Blood pressure and volume status are well controlled. Home metoprolol and diltiazem are on hold for low blood pressure yesterday. Patient slightly tachycardic. I recommend to start home metoprolol -Eliquis remains on hold for GI bleed. Continue to monitor H&H and transfuse asneeded. Currently patient on PPI. Will defer consulting GI to the primary hospitalist service. -Continue active vitamin D as per outpatient hemodialysis order -Patient is already been for E. coli bacteremia. Will defer ertapenem dosing to the pharmacy -Check renal function panel tomorrow before hemodialysis to adjust order as needed Documented By: Gabby Bedolla MD 05/11/23 120 Signed By: <Electronically signed by Gabby Bedolla MD> 05/11/23 1202 [facility] Work Phone: [phone]) 950-544109-07-2023 Hospital Discharge instructionsAmbulatory Orders* Initiate Home Health Time Frame: 05/11/23, Location: Determined By Patient Additional Instructions Continue oxygen as per chronic orders Continue hemodialysis treatments as before Speech therapy recommendations: *Constant feeding supervision with meals *Thin liquids *Pureed solids and meats *Crush pills and give in applesauce *Sit upright at 90 degrees during all oral intake *Take small bites and sips *Pace yourself and eat at a slow-rate Home health to manage: -RN and PT to eval and treat -Monitor VS per protocol -Fall precautions -Perform GI and respiratory assessments -Assist with medication management and education -Monitor for signs of infection or bleeding -Monitor intake and output -Daily weight -Continue oxygen as per chronic orders -Continue hemodialysis treatments as before -Maintain and perform routine care to right upper arm PICC line *Resume IV antibiotics as previously ordered -Speech therapy recommendations: *Constant feeding supervision with meals *Thin liquids *Pureed solids and meats *Crush pills and give in applesauce *Sit upright at 90 degrees during all oral intake *Take small bites and sips *Pace yourself and eat at a slow-rate GI recommends an outpatient EGD be arranged in a tertiary care center. [facility] Work Phone: [phone]) 774-189209-06-2023 Progress note Author Michael Gonzalez [facility] May 10, 2023 1:45pm Note Date/Time May 10, 2023 1:45pm [facility] [address] [place], [place] [id number] Hospitalist Progress Note Signed Patient: Ruddy Palmer MR#: [id number] : 1985 Acct:[id number] Age/Sex: 37 / M Adm Date: 3 Loc: Room: [address] [place] [address] Type: ADM IN Attending Dr: Michael Gonzalez MD Copies to: ~ Date of Service: 05/10/2023 Subjective Subjective Narrative: Patient was evaluated at bedside. Remained afebrile, no leukocytosis. No adverseevents noted from Meropenem. He is out of bed to chair today. Hb improved with blood transfusion. He is more awake today. Mother at bedside, she states he seems back to his baseline. PT/OT following. Exam Physical Exam Vital Signs: Temp Pulse Resp BP Pulse Ox O2 Del Method O2 Flow Rate 98.7 F 90 18 113/52 L 95 Nasal Cannula 3 05/10/23 09:00 05/10/23 12:07 05/10/23 12:07 05/10/23 09:00 05/10/23 09:00 05/10/23 09:00 05/10/23 09:00 Narrative: Const General: comfortable HEENT normal oropharyngeal mucosa without any ulcers or exudates Eyes: blind in both eyes. Pulmonary Auscultation: Diminished breath sounds, no crackles, no wheezes Cardiovascular Rate: normal rate Rhythm: regular rhythm Heart Sounds: S1 normal, S2 normal and no murmurs GI Inspection: non-distended Palpation: soft, not firm and nontender. No rigidity or rebound. Deferred Neuro General: alert and awake. seems back to baseline. Extrem General: no cyanosis, no pedal edema Objective Lab Results 05/10/23 05:01 05/10/23 05:01 Meds Allergies and Active Meds Allergies ciprofloxacin [From Cipro] Allergy (Verified 05/09/23 15:47) Hives latex Allergy (Verified 05/09/23 15:47) Hives Active Meds: Active Medications Generic Name Dose Route Start Last Admin Trade Name Freq PRN Reason Stop Dose Admin Acetaminophen 650 mg 05/09/23 18:45 Acetaminophen 325 Mg Tablet PO 05/08/24 18:44 Q6HR PRN Pain Scale 1 - 3 or fever Bumetanide 2 mg 05/10/23 09:00 05/10/23 10:30 Bumetanide 2 Mg Tablet PO 05/09/24 08:59 2 mg [id number]@0900 PENNY Administration Diltiazem HCl 30 mg 05/09/23 22:00 Diltiazem 30 Mg Tablet PO 05/08/24 21:59 TID PENNY Diphenhydramine HCl 25 mg 05/09/23 18:45 Diphenhydramine 50 Mg/Ml Vial IV-PUSH 05/08/24 18:44 Q8H PRN Severe Rash or Itching Ertapenem 1 each 05/10/23 13:40 Ertapenem - Pharmacy Dosing MISCELLANE ONCE PRN ZZ.Pharmacy Consult Protocol Sodium Chloride 500 mls @ 20 mls/hr 05/09/23 19:51 05/09/23 23:02 0.9 % Sodium Chloride IV 05/10/23 19:50 0 mls/hr PROTOCOL PRN Infusion BLOOD TRANSFUSION Ipratropium [place] 0.5 mg 05/10/23 08:00 05/10/23 12:06 Ipratropium [place] 0.5 Mg/2.5 Ml Vial.Neb INHALATION 05/08/24 19:59 0.5 mg QID.RESP PENNY Administration Lidocaine/Prilocaine 1 applic 05/09/23 20:00 Lidocaine-Prilocaine Cr 2.5-2.5% 5 Gm Tube TOPICAL 05/08/24 19:59 PRN PRN Dialysis Metoprolol Tartrate 25 mg 05/09/23 21:00 Metoprolol Tartrate 25 Mg Tablet PO 05/08/24 20:59 BID PENNY Pantoprazole Sodium 40 mg 05/09/23 21:00 05/10/23 10:30 Pantoprazole 40 Mg Vial IV-PUSH 05/08/24 20:59 40 mg BID PENNY Administration Prochlorperazine Edisylate 5 mg 05/09/23 18:45 Prochlorperazine Edisylate 10 Mg/2 Ml Vial IV-PUSH 05/08/24 18:44 Q4H PRN Nausea And Vomiting Sodium Chloride 0 ml 05/09/23 15:46 05/09/23 23:01 Sodium Chloride 0.9 % 10 Ml Syringe IV-PUSH 05/08/24 15:45 10 ml PRN PRN Administration Flush Sodium Chloride 10 ml 05/09/23 18:45 Sodium Chloride 0.9 % 10 Ml Syringe IV-PUSH 05/08/24 18:44 PRN PRN Flush Sodium Chloride 10 ml 05/09/23 18:45 05/09/23 23:01 Sodium Chloride 0.9 % 10 Ml Vial.Pf INJECTION 05/08/24 18:44 10 ml PRN PRN Administration Dilution Vitamin B Complex/Vit C/Folic Acid 1 tab 05/10/23 09:00 05/10/23 10:30 Folic Acid/Vit Bcomp,C 1 Tab Tablet PO 05/09/24 08:59 1 tab DAILY PENNY Administration A&P - Hospitalist Assessment/Plan (1) Symptomatic anemia: (2) Cerebral palsy: (3) Anemia of renal disease: Plan Acute blood loss anemia Symptomatic anemia Concern for GI bleed -Vitals relatively stable on admission -Hemoglobin 7.6 on admission. transfused 1 unit in ER. Hb improved to 9.2. -Occult blood positive -Transfuse as needed to keep Hb above 8 or symptomatic anemia or ongoing bleeding -diet per ST eval -Protonix IV BID -Antiemetics IV/IM as directed -Hold antiplatelets and anticoagulation -Avoid NSAIDs -Will consider GI consult if any signs of overt GI bleed since he was deemed high risk EGD. -Monitor on telemetry -Monitor for any overt GI bleed/hemodynamic status E.coli Bacteremia- being treated Pneumonia Suspected prostatitis source -Discharged recently from our facility with PICC, plan to complete 4 weeks of IVAB. Reported by family concern for allergic reaction/side effects while infusingErtapenem. He received meropenem with no adverse events. Will change him back toErtapenem and monitor for any reaction. Benadryl ordered as needed. ESRD on HD Chronic hypoxic respiratory failure on home oxygen -Oxygen requirements seems at baseline -No indication for urgent HD at this time. He had HD session yesterday and they did not remove fluids due to hypotension. -Nephrology consult to maintain HD schedule and fluids removal. Physical debility Functional decline 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, Cerebral Palsy, Blindness, Hearing impairment -PT/OT following -CM following for disposition Home medications reviewed and restarted as appropriate. We will hold his blood pressure medications due to soft BP and Klonopin due to mental status Diet: per ST DVT ppx:SCDs, hold Eliquis for now GI ppx: Protonix Code status: DNR CCA without intubation Discussed with patient's mother at bedside. All questions answered. Documented By: Michael Gonzalez MD 05/10/23 13 40 Signed By: <Electronically signed by Michael Gonzalez MD> 05/10/23 1345 [facility] Work Phone: [phone]) 493-638209-06-2023 Consult note Author Gabby Bedolla [facility] May 10, 2023 10:59am Note Date/Time May 10, 2023 10:55am [facility] [address] [place] [address] Nephrology Consult Note Signed Patient: Ruddy Palmer MR#: [id number] : 1985 Acct:[id number] Age/Sex: 37 / M Adm Date: 3 Loc: Room: [address] [place] [address] Type: ADM IN Attending Dr: Michael Gonzalez MD Copies to: MD Denis Winchester MD Obaydah M Daromar, MD~ Providers Consult Date: 05/10/23 Requesting Provider: Michael Gonzalez MD Primary Care Provider: Denis Melvin MD HPI Reason for Consult: End-stage renal disease on hemodialysis History of Present Illness: This is a 37-year-old male patient with a past medical history of cerebral palsy, infantile intra cranial hemorrhage, hypertension, blindness and deafness,COPD, chronic respiratory failure, pulmonary hypertension, history of PE on Eliquis, history of end-stage renal disease on twice weekly hemodialysis at [facility]. Patient was brought in to the hospital by his mother for generalized weakness and fatigue for the last couple days. Last hemodialysis session was Monday without Ultrafiltration due to low blood pressure. Normally patient can move around but he has not been able to do so for the last couple days. In the emergency room hemoglobin was found to be low at 7.6 g deciliter. Eliquis was held and patient was given 1 unit of blood. Patient currently on Protonix 40 mg IV twice daily Of note, patient was recently admitted to the hospital for E. coli bacteremia from prostatitis and was discharged with IV ertapenem to complete 4 weeks course Currently he is being treated with meropenem. Patient was seen and examined in his room. Patient is awake cannot talk. Patient is coughing. 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 Meds Medications & Allergies Allergies ciprofloxacin [From Cipro] Allergy (Verified 05/09/23 15:47) Hives latex Allergy (Verified 05/09/23 15:47) Hives Home Medications apixaban 2.5 mg tablet (Eliquis) 2.5 mg PO BID 04/28/23 [History Confirmed 05/09/23] bumetanide 2 mg tablet 2 mg PO QAM 04/28/23 [History Confirmed 05/09/23] clonazepam 0.5 mg tablet 0.5 mg PO TID 04/28/23 [History Confirmed 05/09/23] dextromethorphan 20 mg-quinidine 10 mg capsule (Nuedexta) 1 cap PO Q12H 04/28/23[History Confirmed 05/09/23] diltiazem HCl 30 mg tablet 30 mg PO TID 04/28/23 [History Confirmed 05/09/23] lidocaine-prilocaine 2.5 %-2.5 % topical cream 1 applic topical ONCE 04/28/23 [History Confirmed 05/09/23] metoprolol tartrate 25 mg tablet 25 mg PO BID 04/28/23 [History Confirmed 05/09/23] sildenafil (pulm.hypertension) 20 mg tablet 20 mg PO TID 04/28/23 [History Confirmed 05/09/23] vitamin B complex-vitamin C 100 mg-folic acid 1 mg tablet (Dialyvite) 1 tab PO DAILY 04/28/23 [History Confirmed 05/09/23] ipratropium bromide 0.02 % solution for inhalation 2.5 ml inhalation Q8H 04/29/23 [History Confirmed 05/09/23] levalbuterol HCl 1.25 mg/3 mL solution for nebulization 1.25 mg inhalation Q8H 04/29/23 [History Confirmed 05/09/23] ertapenem 1 gram solution for injection 0.5 g IV Q24H 28 days #28 ea 05/03/23 [Rx Confirmed 05/09/23] omeprazole 20 mg tablet,delayed release 20 mg PO BID #60 tabs 05/07/23 [Rx Confirmed 05/09/23] Active Medications: Active Medications Acetaminophen (Acetaminophen 325 Mg Tablet) 650 mg PO Q6HR PRN PRN Reason: Pain Scale 1 - 3 or fever Stop: 05/08/24 18:44 Bumetanide (Bumetanide 2 Mg Tablet) 2 mg PO SuTuWeThSa@0900 [facility] Stop: 05/09/24 08:59 Last Admin: 05/10/23 10:30 Dose: 2 mg Diltiazem HCl (Diltiazem 30 Mg Tablet) 30 mg PO TID [facility] Stop: 05/08/24 21:59 Diphenhydramine HCl (Diphenhydramine 50 Mg/Ml Vial) 25 mg IV-PUSH Q8H PRN PRN Reason: Severe Rash or Itching Stop: 05/08/24 18:44 Sodium Chloride (0.9 % Sodium Chloride) 500 mls @ 20 mls/hr IV PROTOCOL PRN PRN Reason: BLOOD TRANSFUSION Stop: 05/10/23 19:50 Last Infusion: 05/09/23 23:02 Dose: 0 mls/hr Meropenem (Merrem) 0.5 gm in 100 mls @ 200 mls/hr IV Q24H [facility] Last Infusion: 05/09/23 23:30 Dose: Infused Ipratropium [place] (Ipratropium [place] 0.5 Mg/2.5 Ml Vial.Neb) 0.5 mg INHALATION QID.RESP [facility] Stop: 05/08/24 19:59 Last Admin: 05/10/23 08:09 Dose: 0.5 mg Lidocaine/Prilocaine (Lidocaine-Prilocaine Cr 2.5-2.5% 5 Gm Tube) 1 applic TOPICAL PRN PRN PRN Reason: Dialysis Stop: 05/08/24 19:59 Metoprolol Tartrate (Metoprolol Tartrate 25 Mg Tablet) 25 mg PO BID [facility] Stop: 05/08/24 20:59 Pantoprazole Sodium (Pantoprazole 40 Mg Vial) 40 mg IV-PUSH BID [facility] Stop: 05/08/24 20:59 Last Admin: 05/10/23 10:30 Dose: 40 mg Prochlorperazine Edisylate (Prochlorperazine Edisylate 10 Mg/2 Ml Vial) 5 mg IV- PUSH Q4H PRN PRN Reason: Nausea And Vomiting Stop: 05/08/24 18:44 Sodium Chloride (Sodium Chloride 0.9 % 10 Ml Syringe) 0 ml IV-PUSH PRN PRN PRN Reason: Flush Stop: 05/08/24 15:45 Last Admin: 05/09/23 23:01 Dose: 10 ml Sodium Chloride (Sodium Chloride 0.9 % 10 Ml Syringe) 10 ml IV-PUSH PRN PRN PRN Reason: Flush Stop: 05/08/24 18:44 Sodium Chloride (Sodium Chloride 0.9 % 10 Ml Vial.Pf) 10 ml INJECTION PRN PRN PRN Reason: Dilution Stop: 05/08/24 18:44 Last Admin: 05/09/23 23:01 Dose: 10 ml Vitamin B Complex/Vit C/Folic Acid (Folic Acid/Vit Bcomp,C 1 Tab Tablet) 1 tab PO DAILY PENNY Stop: 05/09/24 08:59 Last Admin: 05/10/23 10:30 Dose: 1 tab Exam Physical Exam Vital Signs: Temp Pulse Resp BP Pulse Ox O2 Del Method O2 Flow Rate 98.7 F 95 H 18 125/79 95 Nasal Cannula 3 05/10/23 08:00 05/10/23 08:13 05/10/23 08:13 05/10/23 08:00 05/10/23 08:00 05/10/23 08:10 05/10/23 08:10 Narrative: General: No acute distress Head :atraumatic normocephalic Eyes: PERRLA. Neck: no JVD no bruit. Heart: S1-S2. RRR Respiratory: Clear to auscultation. No wheezing. No crackles Abdomen: Soft, positive bowel sounds,no tenderness. Neurology: Not oriented. Patient has history of cerebral palsy. No focal deficits Extremity. No cyanosis. No edema. Lower extremity muscle wasting Skin: No skin rash Results Labs 05/10/23 05:01 05/10/23 05:01 Labs: 05/09/23 05/10/23 16:23 05:01 BUN 64 H 69 H Creatinine 4.81 H 5.62 H D Phosphorus 7.0 Albumin 3.2 L 3.2 L Radiology Impressions Impressions - last 24 hours: Impressions Chest X-Ray 05/09/23 16:30 IMPRESSION: NO ACUTE FINDINGS. Impression dictated by: Maurilio Art Jr., D.O.05/09/2023 5:15 PM Dictation Location: [place] [address] Any impression(s) listed above is documentation that was entered by the reading physician into a diagnostic report(s) for Ruddy Palmer. I have reviewed the report(s) and am incorporating any findings in the treatment plan of this patient where applicable. A&P - Nephrology Assessment/Plan (1) ESRD (end stage renal disease): Plan: Patient has been on twice weekly hemodialysis schedule Monday and Monday. Patient goes to [facility]. Patient has functioning left upper extremity AVfistula (2) Symptomatic anemia: Plan: Patient presented with generalized weakness and fatigue. He was found to have low hemoglobin 7.6 g deciliter. Fecal occult test in the stool came back positive. Currently on Protonix. Hemoglobin is up to 9.2 g deciliter (3) E coli bacteremia: Plan: Patient was admitted recently for E. coli bacteremia from prostatitis. Currently receiving ertapenem IV as outpatient. Antibiotics was switched to meropenem while inpatient Plan - There is no need for hemodialysis session today. Next hemodialysis session will be Monday. -Continue to monitor H&H and transfuse as needed. Currently patient on PPI. Will defer consulting GI to the primary hospitalist service -Antibiotics switched to meropenem for recent history of E. coli bacteremia. Please dose meropenem for patient on twice weekly hemodialysis Documented By: Gabby Bedolla MD 05/10/23 1051 Signed By: <Electronically signed by Gabby Bedolla MD> 05/10/23 105 [facility] Work Phone: [phone]) 985-591009-05-2023 History and physical note Author Michael Gonzalez [facility] May 09, 2023 8:02pm Note Date/Time May 09, 2023 7:01pm [facility] [address] [place] [address] Hospitalist H&P Signed Patient: Ruddy Palmer MR#: [id number] : 1985 Acct:[id number] Age/Sex: 37 / M Adm Date: 3 Loc: Room: [address] [place] [address] Type: ADM IN Attending Dr: Michael Gonzalez MD Copies to: MD Michael Rutledge MD~ HPI DATE OF EXAMINATION: 05/09/23 CHIEF COMPLAINT: Generalized weakness HISTORY OF PRESENT ILLNESS: Patient is a 37-year-old male past medical history of hypertension, 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 No report of nausea, vomiting, abdominal pain, melena, coffee- ground emesis, rectal bleed. Patient had dialysis session yesterday which they could not remove any fluids due to hypotension. Patient normally gets around as per mother and participate in activities but currently has been very weak. He was discharged recently fromour facility on ertapenem for E. coli bacteremia with suspected source of prostatitis with plan to complete 4 weeks of antibiotics. Mother also reports that he has been waking up with redness and puffiness under his right eye, no other rash on his body, she suspects side effects from ertapenem. It did go resolve on its own. She brought him in today for further evaluation and management. In the ER, he was found to have low hemoglobin compared to his baseline with borderline blood pressure which appears to be symptomatic anemia for which she was ordered 1 unit of blood in the ER, occult blood was positive. Decision was made to admit for further evaluation and management. Review of Systems Review of Systems Unobtainable due to mental condition [facility] Medical History Adult hyaline membrane disease Asthma Blind Cerebral palsy Cystic BPD (bronchopulmonary dysplasia) Hearing impaired Hypertension Non-verbal learning disorder Panacinar emphysema Pulmonary hypertension Social History Smoking Status: Never smoker Substance Use Type: None Meds Medications and Allergies Allergies ciprofloxacin [From Cipro] Allergy (Verified 05/09/23 15:47) Hives latex Allergy (Verified 05/09/23 15:47) Hives Home Medications apixaban 2.5 mg tablet (Eliquis) 2.5 mg PO BID 04/28/23 [History Confirmed 05/09/23] bumetanide 2 mg tablet 2 mg PO QAM 04/28/23 [History Confirmed 05/09/23] clonazepam 0.5 mg tablet 0.5 mg PO TID 04/28/23 [History Confirmed 05/09/23] dextromethorphan 20 mg-quinidine 10 mg capsule (Nuedexta) 1 cap PO Q12H 04/28/23[History Confirmed 05/09/23] diltiazem HCl 30 mg tablet 30 mg PO TID 04/28/23 [History Confirmed 05/09/23] lidocaine-prilocaine 2.5 %-2.5 % topical cream 1 applic topical ONCE 04/28/23 [History Confirmed 05/09/23] metoprolol tartrate 25 mg tablet 25 mg PO BID 04/28/23 [History Confirmed 05/09/23] sildenafil (pulm.hypertension) 20 mg tablet 20 mg PO TID 04/28/23 [History Confirmed 05/09/23] vitamin B complex-vitamin C 100 mg-folic acid 1 mg tablet (Dialyvite) 1 tab PO DAILY 04/28/23 [History Confirmed 05/09/23] ipratropium bromide 0.02 % solution for inhalation 2.5 ml inhalation Q8H 04/29/23 [History Confirmed 05/09/23] levalbuterol HCl 1.25 mg/3 mL solution for nebulization 1.25 mg inhalation Q8H 04/29/23 [History Confirmed 05/09/23] ertapenem 1 gram solution for injection 0.5 g IV Q24H 28 days #28 ea 05/03/23 [Rx Confirmed 05/09/23] omeprazole 20 mg tablet,delayed release 20 mg PO BID #60 tabs 05/07/23 [Rx Confirmed 05/09/23] Exam Physical Exam Vital Signs: Temp Pulse Resp BP Pulse Ox O2 Del Method O2 Flow Rate 98.4 F 72 24 111/53 L 99 Nasal Cannula 3 05/09/23 16:02 05/09/23 17:46 05/09/23 17:00 05/09/23 17:46 05/09/23 17:46 05/09/23 17:46 05/09/23 17:46 Narrative: Const General: lethargic HEENT normal oropharyngeal mucosa without any ulcers or exudates Eyes: Conjunctiva normal Pulmonary Auscultation: Diminished breath sounds, no crackles, no wheezes Cardiovascular Rate: normal rate Rhythm: regular rhythm Heart Sounds: S1 normal, S2 normal and no murmurs GI Inspection: non-distended Palpation: soft, not firm and nontender. No rigidity or rebound. Deferred Neuro General: lethargic and somnolent, limited exam, unable to participate. Extrem General: no cyanosis, no pedal edema Results Lab Results Labs: Laboratory Last Values Corrected WBC 10.0 X10E3/uL (4.1-10.5) 05/09/23 16:23 Uncorrected WBC Count 10.0 x10E3/uL (4.1-10.5) 05/09/23 16:23 RBC 2.53 X10E6/uL (3.90-5.60) L 05/09/23 16:23 Hgb 7.6 g/dL (13.0-17.0) L 05/09/23 16:23 Hct 24.3 % (38.8-50.0) L 05/09/23 16:23 MCV 95.9 fl (83.5-101) 05/09/23 16:23 MCH 30.1 pg (27.5-35.2) 05/09/23 16:23 MCHC 31.4 g/dL (32.5-35.6) L 05/09/23 16:23 RDW 14.7 % (12.0-14.8) 05/09/23 16:23 Plt Count 362 x10E3/uL (150-450) 05/09/23 16:23 MPV 7.4 fl (6.6-10.1) 05/09/23 16:23 Neut % (Auto) 74.5 % (.) 05/09/23 16:23 Lymph % (Auto) 13.3 % (.) 05/09/23 16:23 [place] % (Auto) 10.8 % (.) 05/09/23 16:23 Eos % (Auto) 1.2 % (.) 05/09/23 16:23 Baso % (Auto) 0.2 % (.) 05/09/23 16:23 Nucleat RBC Rel Count 0.1 /100 WBC (0-0.5) 05/09/23 16:23 Neut # (Auto) 7.5 x10E3/uL (1.8-7.7) 05/09/23 16:23 Lymph # (Auto) 1.3 x10E3/uL (1.00-4.8) 05/09/23 16:23 [place] # (Auto) 1.1 x10E3/uL (0.0-0.8) H 05/09/23 16:23 Eos # (Auto) 0.1 x10E3/uL (0.0-0.45) 05/09/23 16:23 Baso # (Auto) 0.0 x10E3/uL (0.0-0.2) 05/09/23 16:23 Monocyte Dist Width 18.33 % (0.00-20.00) 05/09/23 16:23 PHA Creatinine Clear 19.82 05/09/23 16:23 Sodium 129 mmol/L (136-145) L 05/09/23 16:23 Potassium 4.8 mmol/L (3.5-5.1) 05/09/23 16:23 Chloride 99 mmol/L (98-107) 05/09/23 16:23 Carbon Dioxide 23.8 mmol/L (21.0-31.0) 05/09/23 16:23 Anion Gap 11.0 mEq/L (6.0-15.0) 05/09/23 16:23 BUN 64 mg/dL (7-25) H 05/09/23 16:23 Creatinine 4.81 mg/dL (0.70-1.30) H 05/09/23 16:23 Est GFR (CKD-EPI) 15.003 mL/Min 05/09/23 16:23 Glucose 103 mg/dL (70-100) H 05/09/23 16:23 Lactic Acid 0.4 mmol/L (0.5-2.2) 05/09/23 16:23 Calcium 7.9 mg/dL (8.6-10.3) L 05/09/23 16:23 Total Bilirubin 0.3 mg/dl (0.3-1.0) 05/09/23 16:23 Direct Bilirubin 0.00 mg/dL (0.03-0.18) L 05/09/23 16:23 Indirect Bilirubin 0.3 mg/dL 05/09/23 16:23 AST 13 U/L (13-39) 05/09/23 16:23 ALT 13 U/L (7-52) 05/09/23 16:23 Alkaline Phosphatase 79 U/L (34-104) 05/09/23 16:23 Total Creatine Kinase 31 U/L (30-223) 05/09/23 16:23 Troponin I High Sens 7.5 pg/mL (0.0-20.0) 05/09/23 16:23 B-Natriuretic Peptide 787.0 pg/mL (5-100) H 05/09/23 16:23 Total Protein 5.3 gm/dL (6.4-8.9) L 05/09/23 16:23 Albumin 3.2 gm/dL (3.5-5.7) L 05/09/23 16:23 Globulin 2.1 gm/dL 05/09/23 16:23 Albumin/Globulin Ratio 1.5 05/09/23 16:23 Assessment & Plan Assessment/Plan (1) Symptomatic anemia: (2) Cerebral palsy: (3) Anemia of renal disease: Plan Acute blood loss anemia Symptomatic anemia Concern for GI bleed -Vitals relatively stable on admission -Hemoglobin 7.6 on admission. He will be transfused 1 unit in ER. Dropped from 8.8 (05/06/2023). Follow-up H&H every 6 hours -Occult blood positive -Obtain 2 large bore IV access -Transfuse as needed to keep Hb above 8 or symptomatic anemia or ongoing bleeding -Renal diet -Protonix IV BID -Antiemetics IV/IM as directed -Hold antiplatelets and anticoagulation -Avoid NSAIDs -Will consider GI consult if any signs of overt GI bleed since he was deemed high risk EGD. -Monitor on telemetry -Monitor for any overt GI bleed/hemodynamic status E.coli Bacteremia- being treated Pneumonia Suspected prostatitis source -Discharged recently from our facility with PICC, plan to complete 4 weeks of IVAB. Reported by family concern for allergic reaction/side effects while infusingErtapenem. Will change to Meropenem for now and watch for any rash, swelling or other side effects. ESRD on HD Chronic hypoxic respiratory failure on home oxygen -Oxygen requirements seems at baseline -No indication for urgent HD at this time. He had HD session yesterday and they did not remove fluids due to hypotension. -Nephrology consult to maintain HD schedule and fluids removal. 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 We will hold his blood pressure medications due to soft BP and Klonopin due to mental status Diet: Renal diet DVT ppx:SCDs, hold Eliquis for now GI ppx: Protonix Code status: DNR CCA without intubation Disposition: Inpatient status Discussed with patient at bedside. All questions answered. In agreement with theabove plan IP vs OBS Justification Based on differential dx, clinical care plan, and risk of adverse events, if untreated, in my clinical judgement this patient requires an acute care setting as: INPATIENT because of an expectation of an over 2 midnight stay. Estimated length of stay (# of days): 3 Documented By: Michael Gonzalez MD 05/09/23 18 52 Signed By: <Electronically signed by Michael Gonzalez MD> 05/09/232001 [facility] Work Phone: 1(637) 873-931809-03-2023 Discharge summary Author Ceferino Godinez [facility] May 07, 2023 12:59pm Note Date/Time May 07, 2023 12:59pm [facility] [address] [place] [address] Discharge Summary Signed Patient: Ruddy Palmer MR#: [id number] : 1985 Acct:[id number] Age/Sex: 37 / M Adm Date: 3 Loc: Room: [address] [place] [address]: Ceferino Godinez MD Copies to: MD Ceferino Rutledge MD~ Providers Date of Discharge: 05/07/23 Discharging Provider: Ceferino Godinez Primary Care Provider: Denis Melvin Consults: 04/28/23 15:30 Consult to Nephrology Stat 04/29/23 07:53 Consult to Infectious Diseases Routine 04/30/23 12:04 Consult to Palliative Care Doctor Routine 05/01/23 11:25 Consult to Occupational Therapy Routine Consult to Physical Therapy Routine 05/05/23 12:45 swallow [Consult to Speech Therapy] Routine 05/06/23 13:42 Consult to Gastroenterology Routine Discharge Diagnosis (1) ESRD (end stage renal disease): (2) Sepsis associated hypotension: (3) Anemia of renal disease: (4) Secondary hyperparathyroidism: Final Diagnosis Final Discharge Diagnosis: 1. E. coli bacteremia 2. End-stage renal disease currently on hemodialysis 3. Pneumonia 4. Possible prostatitis Summary Hospital Course Hospital course: This is an unfortunate 37-year-old gentleman with history of cerebral palsy and intracranial hemorrhage at , currently has ESRD on hemodialysis sent to us from the dialysis because of low blood pressure and generalized weakness. He was found to be positive for E. coli in the blood with no specific source. His PSA was high at 14.53. Infectious disease was consulted. He was treated with IV ertapenem. As per infectious disease he will be continuing this IV antibiotic for 4 weeks. Accordingly PICC has been done. Home health will be delivering him IV antibiotic. He also has anemia with positive blood in the stool. We consulted tree chipper they did not find any reason for scope at this time. We increased omeprazole from once a day to twice daily. Patient will continue his hemodialysis as an outpatient. His next dialysis session willbe tomorrow. Details of his hospital stay, consultants notes, imaging studies, and biochemical lab results will be found in the electronic health record of [facility]. On the day of discharge patient was at his baseline. Mother was there to take him home in stable condition. Condition Condition at Discharge: Stable Time Spent with Patient Time spent providing/coordinating discharge services (# min): 25 Surgeries and Procedures Operation Date: 05/04/23 11:05 Actual Procedures p IR PICC Line Insertion(Right) - Rojas No MD Diagnostic Studies Completed and Pending Studies Pending studies at discharge: 05/01/23 12:01 Sputum Culture Routine 05/05/23 11:16 Stool Occult Blood (Guaiac) Routine Labs on day of discharge: 05/07/23 04:40: PHA Creatinine Clear 13.95, Sodium 130 L, Potassium 4.7, Chloride 97 L, Carbon Dioxide 25.2, Anion Gap 12.5, BUN 82 H D, Creatinine 5.94 H D, Est GFR (CKD-EPI) 11.646, Glucose 118 H, Calcium 8.1 L, Total Bilirubin 0.3, AST 10 L, ALT 15, Alkaline Phosphatase 102, Total Protein 5.8 L, Albumin 3.2 L, Globulin 2.6, Albumin/Globulin Ratio 1.2 05/07/23 04:00: Corrected WBC 9.2, Uncorrected WBC Count 9.2, RBC 2.59 L, Hgb 7.9 L, Hct 24.2 L, MCV 93.6, MCH 30.3, MCHC 32.4 L, RDW 14.5, Plt Count 306, MPV7.9, Neut % (Auto) 93.1, Lymph % (Auto) 4.9, [place] % (Auto) 1.6, Eos % (Auto) 0.1, Baso % (Auto) 0.3, Nucleat RBC Rel Count 0.1, Neut # (Auto) 8.6 H, Lymph # (Auto) 0.5 L, [place] # (Auto) 0.2, Eos # (Auto) 0.0, Baso # (Auto) 0.0 Exam Physical Exam Vital Signs: Temp Pulse Resp BP Pulse Ox O2 Del Method O2 Flow Rate 98.5 F 90 20 117/64 94 L Nasal Cannula 5 05/07/23 08:00 05/07/23 10:11 05/07/23 10:11 05/07/23 08:00 05/07/23 08:00 05/07/23 08:00 05/07/23 11:57 FiO2 40 05/06/23 17:59 Discharge Plan Discharge Plan Patient Disposition: Home Health [facility] Activity: No Activity Restriction Diet: Renal Additional Instructions: Continue Hemodialysis as scheduled. Please weigh yourself daily. Keep a record of these to take to your Dr. appointments. Continue to use home oxygen as directed. HOME HEALTH TO MANAGE: Nursing/PT to eval and treat Monitor VS per protocol Monitor Urinary assessment and for signs of increased infection--UTI, Bacteremia Monitor assessment--ESRD Assist with medication management and provide medication education Assist with monitoring daily weights Maintain and routine care to PICC line--Educate family on *Inserted on 05/04/23 Maintain home oxygen at 2l continuous Administer IV antibiotic as ordered--Educate family on Provide education on high risk fall precautions PSA in 3 weeks, see order Prescriptions: New ertapenem 1 gram recon soln 0.5 g IV Q24H 28 Days Qty: 28 0RF Continued bumetanide 2 mg Tablet 2 mg PO QAM Rx Instructions: only on non-dialysis days. (T,W,T,S,S) clonazepam 0.5 mg Tablet 0.5 mg PO TID lidocaine-prilocaine [Emla] 2.5-2.5 % Cream 1 applic TOPICAL ONCE Rx Instructions: 45 minutes prior to dialysis diltiazem HCl 30 mg Tablet 30 mg PO TID metoprolol tartrate 25 mg Tablet 25 mg PO BID sildenafil (pulm.hypertension) 20 mg Tablet 20 mg PO TID Rx Instructions: administer doses at least 4-6 hours apart Dialyvite 100-1 mg Tablet 1 tab PO DAILY Nuedexta 20-10 mg Capsule 1 cap PO Q12H Eliquis 2.5 mg Tablet 2.5 mg PO BID levalbuterol HCl 1.25 mg/3 mL solution for nebulization 1.25 mg INHALATION Q8H Patient Comments: USE 1 VIAL VIA NEBULIZER EVERY 8 HOURS ipratropium bromide 0.02 % solution 2.5 ml inhalation Q8H Patient Comments: USE 1 VIAL VIA NEBULIZER EVERY 8 HOURS Changed omeprazole 20 mg Tablet,Delayed Release (Dr/Ec) 20 mg PO BID Qty: 60 0RF Other Ambulatory Orders: PSA Total (Not a Screen) (Routine) Timeframe: 3 Weeks Location: Determined by Patient Ordered By: Kostas Wade Initiate Home Health (Routine) Timeframe: 20230504 Location: Determined by Patient Ordered By: Bradford BOWIE Home Medical Equipment (Routine) Timeframe: 1 Day Location: Determined by Patient Ordered By: Ceferino Godinez Follow Up: Kostas Wade MD [Active Staff] - 05/25/23 2:30 pm Denis Melvin MD [Primary Care Provider] - 05/10/23 10:45 am (Post hospital appointment. Please call to reschedule if needed.) Documented By: Ceferino Godinez MD 05/07/23 1253 Signed By: <Electronically signed by Ceferino Godinez MD> 05/07/23 1259 [facility] Work Phone: 1(706) 215-243309-03-2023 Progress note Author Jessica Macdonald [facility] May 07, 2023 10:51am Note Date/Time May 07, 2023 10:51am [facility] [address] [place] [address] Nephrology Progress Note Signed Patient: Ruddy Palmer MR#: [id number] : 1985 Acct:[id number] Age/Sex: 37 / M Adm Date: 3 Loc: Room: [address] [place] [address] Type: ADM IN Attending Dr: Ceferino Godinez MD Copies to: ~ Date of Service: 05/07/2023 Subjective Subjective Narrative: This is a 37-year-old male with a medical history of hypertension, cerebral palsy, COPD, pulm hypertension , ESRD, PE on Apixaban, anemia of renal disease and secondary hyperparathyroidism was brought into the emergency room for fever and hypotension. He does not communicate and most of the history was taken frompatient's chart and the patient's mother. His mother stated that patient started running fever 2 days prior to admission and had a fever of 102. He started having mild cough. He went for a his dialysis and was noticed to have a hypotension so he was sent to the emergency room for evaluation. Mother reported patient has a ESRD for 2 years after he had a septic shock and required dialysis. She reported that he was seen by the milk driver many years ago whenhe was found to have a solitary kidney. Patient currently goes to the [facility] twice a week Monday and Monday schedule. He currently has AV fistula asa dialysis access. Mother reported that patient still makes urine but he he is incontinent. Nephrology is consulted for ESRD management during the hospital stay. Interval history Patient is sleeping comfortably, no reported complaints. Blood pressure stable. Patient on IV ertapenem via PICC line E. coli, ESBL per ID recommendation. Hemoglobin did drop again to 7.9 from 8.8 g/dL yesterday. He had 1 unit of packed RBCs. No evidence of obvious bleeding. Iron stores, B12 and folic acid are adequate. Stool for blood was positive on May 01 however the patient does not seems to have obvious active bleeding at this point with adequate iron stores. He does receive erythropoietin with hemodialysis. Lab was reviewed Exam Physical Exam Vital Signs: Temp Pulse Resp BP Pulse Ox O2 Del Method O2 Flow Rate 36.9 C 90 20 117/64 94 L Nasal Cannula 4 05/07/23 08:00 05/07/23 10:11 05/07/23 10:11 05/07/23 08:00 05/07/23 08:00 05/07/23 08:00 05/07/23 08:00 FiO2 40 05/06/23 17:59 Narrative: General: Awake, nonverbal. HEENT: Legally blind he has mild pallor with no jaundice or cyanosis. Neck: Supple no JVD no carotid bruit CVS S1-S2: regular rate and rhythm no murmur no gallop Chest clear to auscultation percussion no wheezing no crackles Abdomen: Soft bowel sounds normoactive no rebound no guarding Extremities no edema no clubbing Neurologic non verbal Skin exam: Normal no skin rash or lesions Vascular access: Left arm AV fistula with good thrill. No evidence of infection. Objective Intake and Output I&O: Intake & Output 05/04/23 05/05/23 05/06/23 05/07/23 23:59 23:59 23:59 23:59 Intake Total 1030 / 1030 900 / 900 550 / 550 150 / 150 Output Total 0 / 0 1902 / 1902 0 / 0 Balance 1030 / 1030 -1002 / -1002 550 / 550 150 / 150 Weight 61 kg 62.9 kg 60.8 kg 58.5 kg Meds and Allergies Meds: Active Medications Acetaminophen (Acetaminophen 325 Mg Tablet) 650 mg PO Q6H PRN PRN Reason: Pain 1-5 or fever Stop: 04/27/24 17:45 Last Admin: 05/02/23 21:42 Dose: 650 mg Hydrocodone Bitart/Acetaminophen (Hydrocodone/Acetaminophen 5-325 Mg Tablet) 1 tab PO Q4H PRN PRN Reason: Pain Scale 4 - 6 Last Admin: 05/07/23 06:59 Dose: 1 tab Acetylcysteine (Acetylcysteine 10% 100 Mg/Ml Vial) 400 mg INHALATION BID [facility] Stop: 05/04/24 09:29 Last Admin: 05/07/23 05:54 Dose: 400 mg Apixaban (Apixaban 2.5 Mg Tablet) 2.5 mg PO BID PENNY Stop: 04/27/24 20:59 Last Admin: 05/07/23 08:48 Dose: Not Given Bumetanide (Bumetanide 2 Mg Tablet) 2 mg PO SuTuWeThSa@0900 PENNY Stop: 04/28/24 08:59 Last Admin: 05/07/23 08:47 Dose: 2 mg Clonazepam (Clonazepam 0.5 Mg Tablet) 0.5 mg PO TID PENNY Stop: 10/25/23 21:59 Last Admin: 05/07/23 08:47 Dose: 0.5 mg Diltiazem HCl (Diltiazem 30 Mg Tablet) 30 mg PO TID [facility] Stop: 04/27/24 21:59 Last Admin: 05/07/23 08:47 Dose: 30 mg Ferric Sodium Gluconate Complex (Sodium Ferric Gluconat/Sucrose 62.5 Mg/5 Ml Vial) 62.5 mg IV-PUSH WEEKLY [facility] Stop: 04/30/24 08:59 Last Admin: 05/01/23 12:07 Dose: 62.5 mg Sodium Chloride (0.9% Sodium Chloride 1,000 Ml) 1,000 mls @ 0 mls/hr MISCELLANE.Q0M PRN PRN Reason: Dialysis Stop: 04/27/24 15:23 Last Infusion: 05/01/23 12:09 Dose: Infused Ertapenem 0.5 gm/ Sodium (Chloride) 100 mls @ 200 mls/hr IV Q24H PENNY Stop: 04/29/24 11:29 Last Admin: 05/06/23 14:37 Dose: 200 mls/hr Sodium Chloride (0.9% Sodium Chloride 1,000 Ml) 1,000 mls @ 0 mls/hr MISCELLANE.Q0M PRN PRN Reason: Dialysis Stop: 04/30/24 08:32 Last Infusion: 05/05/23 10:31 Dose: Infused Sodium Chloride (0.9% Sodium Chloride 1,000 Ml) 1,000 mls @ 0 mls/hr MISCELLANE.Q0M PRN PRN Reason: Dialysis Stop: 04/30/24 10:46 Ipratropium [place] (Ipratropium [place] 0.5 Mg/2.5 Ml Vial.Neb) 0.5 mg INHALATION QID [facility] Stop: 04/28/24 21:59 Last Admin: 05/07/23 09:58 Dose: 0.5 mg Levalbuterol HCl (Levalbuterol Hcl *Nf* 1.25 Mg/3 Ml Vial.Neb) 1.25 mg INHALATION Q4H.SHABANA [facility]; Protocol Stop: 05/04/24 12:59 Last Admin: 05/07/23 09:58 Dose: 1.25 mg Lidocaine/Prilocaine (Lidocaine-Prilocaine Cr 2.5-2.5% 5 Gm Tube) 1 applic TOPICAL ONCE PRN PRN Reason: Dialysis Stop: 04/27/24 17:44 Last Admin: 05/05/23 08:57 Dose: 1 applic Methylprednisolone Sodium Succinate (Methylprednisolone Sod Succ 40 Mg/Ml Vial) 40 mg IV-PUSH Q8HR [facility] Stop: 05/04/24 13:59 Last Admin: 05/07/23 05:05 Dose: 40 mg Metoprolol Tartrate (Metoprolol Tartrate 25 Mg Tablet) 25 mg PO BID [facility] Stop: 04/27/24 20:59 Last Admin: 04/28/23 21:28 Dose: 25 mg Ondansetron HCl (Ondansetron 4 Mg/2 Ml Vial) 4 mg IV-PUSH Q6H PRN PRN Reason: Nausea And Vomiting Stop: 04/27/24 17:45 Pantoprazole Sodium (Pantoprazole 40 Mg Tablet.) 40 mg PO BID [facility] Stop: 05/05/24 20:59 Last Admin: 05/07/23 08:47 Dose: 40 mg Paricalcitol (Paricalcitol 10 Mcg/2 Ml Vial) 2 mcg IV-PUSH MoFr@11 [facility] Stop: 04/30/24 10:59 Last Admin: 05/05/23 10:30 Dose: 2 mcg Potassium Chloride (Potassium Chloride Er 20 Meq Tab.Er.Prt) 40 meq PO DAILY PRN PRN Reason: Hypokalemia Stop: 04/27/24 17:45 Sildenafil Citrate (Sildenafil Citrate 20 Mg Tablet) 20 mg PO TID [facility] Stop: 04/27/24 21:59 Last Admin: 05/07/23 08:47 Dose: 20 mg Sodium Chloride (Sodium Chloride 0.9 % 10 Ml Syringe) 0 ml IV-PUSH PRN PRN PRN Reason: Flush Stop: 04/27/24 13:03 Last Admin: 05/05/23 15:28 Dose: 10 ml Sodium Chloride (Sodium Chloride 0.9 % 10 Ml Syringe) 0 ml IV-PUSH PRN PRN PRN Reason: Flush Stop: 04/27/24 15:23 Last Admin: 04/29/23 12:39 Dose: 10 ml Sodium Chloride (Sodium Chloride 0.9 % 10 Ml Syringe) 0 ml IV-PUSH PRN PRN PRN Reason: Flush Stop: 04/30/24 08:32 Last Admin: 05/05/23 10:30 Dose: 10 ml Sodium Chloride (Sodium Chloride 0.9 % 10 Ml Syringe) 0 ml IV-PUSH PRN PRN PRN Reason: Flush Stop: 04/30/24 10:46 Sodium Chloride (Sodium Chloride 0.9 % 10 Ml Syringe) 0 ml IV-PUSH PRN PRN PRN Reason: Flush Stop: 05/02/24 10:16 Sterile Water (Water For Injection,Sterile 10 Ml Vial) 1 ml INJECTION PRN PRN PRN Reason: Reconstitute methylPREDNISolone sod succ Stop: 05/04/24 09:21 Last Admin: 05/07/23 05:05 Dose: 1 ml Allergies ciprofloxacin [From Cipro] Allergy (Verified 04/28/23 13:10) Hives latex Allergy (Verified 04/28/23 13:10) Hives Results Labs 05/07/23 04:00 05/07/23 04:40 Labs: 05/07/23 04:40 BUN 82 H D Creatinine 5.94 H D Albumin 3.2 L Radiology Impressions Impressions - last 24 hours: Any impression(s) listed above is documentation that was entered by the reading physician into a diagnostic report(s) for Ruddy Palmer. I have reviewed the report(s) and am incorporating any findings in the treatment plan of this patient where applicable. A&P - Nephrology Assessment/Plan (1) ESRD (end stage renal disease): Plan: He has a ESRD after MCKENNA in setting of sepsis. He has been on dialysis for 2 years and currently goes to the [facility] twice a week on Monday schedule (2) Sepsis associated hypotension: Plan: He was presented with fever leukocytosis and hypertension. His blood culture positive for E. coli bacteremia on ertapenem for ESBL. Source could be prostatic based on the CT scan finding of prostatomegaly and bladder outlet obstruction. (3) Anemia of renal disease: Plan: Hemoglobin is low in the setting of infection he receives Mircera with dialysis. Hemoglobin dropped further to 7 g/dL today. Platelets did improve. Stool for occult blood was positive in 05/01. Repeat stool for blood is pending. (4) Secondary hyperparathyroidism: Plan: He has a secondary hyperparathyroidism and currently receives IV Hectorol with dialysis. Plan * Patient had 1 unit of packed RBCs with improvement of hemoglobin from 7 to 8.8 g/dL however today is slightly down to 7.9 g/dL. Platelets did improve up to 306 thousand. Stool for occult blood was positive in 05/01. Repeat stool for blood is pending. No evidence of active bleeding at this point. Patient has adequate iron stores, B12 and folic acid. Patient will continue Aranesp as outpatient and hemoglobin expected to improve with treatment of infection. * Patient gets twice weekly dialysis. Next hemodialysis will be on Monday if the patient still in the hospital otherwise it will be at his dialysis unit in [place]. * Patient had PICC line to continue ertapenem 0.5 g daily for ESBL bacteremia. CT scan of the abdomen showed prostatomegaly and PSA is elevated suggestive of prostatitis as a source of E. coli. ID recommend 4 weeks of antibiotics. Documented By: Jessica Macdonald MD 05/07/23 1047 Signed By: <Electronically signed by MD Jessica Macdonald> 05/07/23 1055 [facility] Work Phone: 1(639) 235-155709-02-2023 Consult note Author Alejandro Escalera [facility] May 06, 2023 3:39pm Note Date/Time May 06, 2023 3:39pm [facility] [address] [place] [address] Gastroenterology Consult Note Signed Patient: Ruddy Palmer MR#: [id number] : 1985 Acct:[id number] Age/Sex: 37 / M Adm Date: 3 Loc: Room: [address] [place] [address] Type: ADM IN Attending Dr: Ceferino Godinez MD Copies to: MD Alejandro Rutledge MD Mushtaq Mahmood, MD~ HPI Data of Consult Date of Consultation: 05/06/23 Requesting Physician: Ceferino Godinez MD Consult Narrative History of present illness: Mr. Palmer is a 37 year old male who is consulted because of anemia and Hemoccult positive stools. The history is well recorded. The patient has a history of cerebral palsy and blindness. Despite this he is semiindependent at home. He can hold himself if you hand to close to him and walks around the house and cannot communicate nonverbally. He is not verbal at all. He has had problems with recurrent infections. He first had a UTI with sepsis which led torenal impairment. He now requires dialysis therapy. He was felt to have refluxand is not clear if he had endoscopy in the past. He was on PPI therapy twice aday but has been decreased to 20 mg of omeprazole every morning. CT scan did show thickening of the distal esophagus consistent with reflux esophagitis. Patient was admitted to the hospital with pneumonia and fever of 102 degrees. He was noted to be hypotensive with his dialysis which led to admission. Medical problems to include adult hyaline membrane disease, koehler acinar emphysema, pulmonary hypertension, history of pulmonary embolus for which she messi Eliqudavid. cc:: CC: Ceferino Godinez MD Review of Systems Review of Systems All other systems reviewed & are negative unless noted below or in HPI [facility] Medical History (Updated 05/06/23 @ 15:37 by Alejandro Escalera MD) Adult hyaline membrane disease Asthma Blind Cerebral palsy Cystic BPD (bronchopulmonary dysplasia) Hearing impaired Hypertension Non-verbal learning disorder Panacinar emphysema Pulmonary hypertension Social History Smoking Status: Unknown if ever smoked Substance Use Type: Unknown Meds Medications and Allergies Allergies ciprofloxacin [From Cipro] Allergy (Verified 04/28/23 13:10) Hives latex Allergy (Verified 04/28/23 13:10) Hives Home Medications apixaban 2.5 mg tablet (Eliquis) 2.5 mg PO BID 04/28/23 [History Confirmed 04/28/23] bumetanide 2 mg tablet 2 mg PO QAM 04/28/23 [History Confirmed 04/28/23] clonazepam 0.5 mg tablet 0.5 mg PO TID 04/28/23 [History Confirmed 04/28/23] dextromethorphan 20 mg-quinidine 10 mg capsule (Nuedexta) 1 cap PO Q12H 04/28/23[History Confirmed 04/28/23] diltiazem HCl 30 mg tablet 30 mg PO TID 04/28/23 [History Confirmed 04/28/23] lidocaine-prilocaine 2.5 %-2.5 % topical cream 1 applic topical ONCE 04/28/23 [History Confirmed 04/28/23] metoprolol tartrate 25 mg tablet 25 mg PO BID 04/28/23 [History Confirmed 04/28/23] omeprazole 20 mg tablet,delayed release 20 mg PO DAILY 04/28/23 [History Confirmed 04/28/23] sildenafil (pulm.hypertension) 20 mg tablet 20 mg PO TID 04/28/23 [History Confirmed 04/28/23] vitamin B complex-vitamin C 100 mg-folic acid 1 mg tablet (Dialyvite) 1 tab PO DAILY 04/28/23 [History Confirmed 04/28/23] ipratropium bromide 0.02 % solution for inhalation 2.5 ml inhalation Q8H 04/29/23 [History Confirmed 04/29/23] levalbuterol HCl 1.25 mg/3 mL solution for nebulization 1.25 mg inhalation Q8H 04/29/23 [History Confirmed 04/29/23] ertapenem 1 gram solution for injection 0.5 g IV Q24H 28 days #28 ea 05/03/23 [Rx] Exam Physical Exam Vital Signs: Temp Pulse Resp BP Pulse Ox O2 Del Method O2 Flow Rate 98.5 F 90 18 118/74 92 L Nasal Cannula 4 05/06/23 14:00 05/06/23 12:33 05/06/23 14:00 05/06/23 14:00 05/06/23 14:00 05/06/23 14:00 05/06/23 14:00 FiO2 40 05/06/23 14:00 Narrative: Constitutional: Well-developed, well nourished, does not respond to verbal stimuli. Head: Normocephalic. Eyes pupils equal and round, reactive to light and accommodation. No icterus or conjunctivitis. Ears: Normal appearance. Neck and nodes: negative Mouth, nose and throat: Normal appearance. Chest: Clear to auscultation and percussion. Heart: Regular rhythm without murmurs or gallops. No thrills or heaves. Abdomen: No distention or tympany. Normal bowel sounds. Liver and spleen normal to percussion and palpation. No masses or tenderness. No bruits heard Rectum: Grossly normal. Extremities: No palmar erythema. No Dupuytren's contractures. No edema noted. Neuro: Grossly negative. Skin: Normal Results Labs Labs: Laboratory Results - last 24 hr 05/05/23 05/06/23 05/06/23 09:50 05:05 05:05 Corrected WBC 6.8 Uncorrected WBC Count 6.8 RBC 2.88 L Hgb 8.8 L Hct 27.1 L MCV 94.0 MCH 30.6 MCHC 32.6 RDW 14.4 Plt Count 223 MPV 7.9 Neut % (Auto) 95.2 Lymph % (Auto) 3.9 [place] % (Auto) 0.7 Eos % (Auto) 0.1 Baso % (Auto) 0.1 Nucleat RBC Rel Count 0.1 Neut # (Auto) 6.5 Lymph # (Auto) 0.3 L [place] # (Auto) 0.0 Eos # (Auto) 0.0 Baso # (Auto) 0.0 PHA Creatinine Clear 18.81 Sodium 131 L Potassium 4.7 Chloride 96 L Carbon Dioxide 26.6 Anion Gap 13.1 BUN 36 H Creatinine 4.58 H D Est GFR (CKD-EPI) 15.911 Glucose 140 H Calcium 8.4 L Ferritin 1147.6 H Vitamin B12 3439 H Folate 36.0 A&P - Gastroenterology Assessment/Plan (1) Heme + stool: Plan: Patient likely has reflux esophagitis is noted on CT scan and this has been noticed in the past when he was started on twice daily PPI therapy. I would increase patient's omeprazole to 40 mg p.o. twice daily. Is probably possible that he had reflux and aspiration causing this pneumonia. I believe that endoscopy would be more risk than benefit unless he develops active GI bleeding. Patient can be safely discharged from a GI standpoint. Code(s): R19.5 - Other fecal abnormalities Status: Acute Documented By: Alejandro Escalera MD 05/06/23 4191 Signed By: <Electronically signed by MD Alejandro Escalera> 05/06/23 1539 [facility] Work Phone: 1(757) 214-402109-02-2023 Progress note Author Ceferino Godinez [facility] May 06, 2023 1:50pm Note Date/Time May 06, 2023 1:50pm [facility] [address] [place] [address] Hospitalist Progress Note Signed Patient: Ruddy Palmer MR#: [id number] : 1985 Acct:[id number] Age/Sex: 37 / M Adm Date: 3 Loc: Room: [address] [place] [address] Type: ADM IN Attending Dr: Ceferino Godinez MD Copies to: ~ Date of Service: 05/06/2023 Subjective Subjective Narrative: Patient was seen at bedside. He is nonverbal. Mom was sitting at bedside. He became little bit irritable as I touched him. As per mom this is normal for him. He did not spike any fever. His H&H incremented appropriately. He had stool occult positive. Currently he is on Eliquis for pulmonary embolism about 3 years ago. Exam Physical Exam Vital Signs: Temp Pulse Resp BP Pulse Ox O2 Del Method O2 Flow Rate 98.5 F 90 18 128/71 92 L Nasal Cannula 4 05/06/23 12:00 05/06/23 12:33 05/06/23 12:33 05/06/23 12:00 05/06/23 12:00 05/06/23 12:00 05/06/23 12:00 FiO2 40 05/06/23 10:00 Objective Lab Results 05/06/23 05:05 05/06/23 05:05 Microbiology Results Microbiology 05/01/23 09:25 Blood - Right Hand Blood Culture - Final NO GROWTH 5 DAYS 05/01/23 09:23 Blood - Right Antecubital Blood Culture - Final NO GROWTH 5 DAYS Meds Allergies and Active Meds Allergies ciprofloxacin [From Cipro] Allergy (Verified 04/28/23 13:10) Hives latex Allergy (Verified 04/28/23 13:10) Hives Active Meds: Active Medications Generic Name Dose Route Start Last Admin Trade Name Freq PRN Reason Stop Dose Admin Acetaminophen 650 mg 04/28/23 17:46 05/02/23 21:42 Acetaminophen 325 Mg Tablet PO 04/27/24 17:45 650 mg Q6H PRN Administration Pain 1-5 or fever Hydrocodone Bitart/Acetaminophen 1 tab 04/28/23 17:46 05/05/23 10:59 Hydrocodone/Acetaminophen 5-325 Mg Tablet PO 1 tab Q4H PRN Administration Pain Scale 4 - 6 Acetylcysteine 400 mg 05/05/23 09:30 05/06/23 07:46 Acetylcysteine 10% 100 Mg/Ml Vial INHALATION 05/04/24 09:29 400 mg BID PENNY Administration Apixaban 2.5 mg 04/28/23 21:00 05/06/23 09:27 Apixaban 2.5 Mg Tablet PO 04/27/24 20:59 2.5 mg BID PENNY Administration Bumetanide 2 mg 04/29/23 09:00 05/06/23 09:27 Bumetanide 2 Mg Tablet PO 04/28/24 08:59 2 mg SuTuWeThSa@0900 PENNY Administration Clonazepam 0.5 mg 04/28/23 22:00 05/06/23 13:44 Clonazepam 0.5 Mg Tablet PO 10/25/23 21:59 0.5 mg TID PENNY Administration Diltiazem HCl 30 mg 04/28/23 22:00 05/06/23 13:45 Diltiazem 30 Mg Tablet PO 04/27/24 21:59 30 mg TID PENNY Administration Ferric Sodium Gluconate Complex 62.5 mg 05/01/23 09:00 05/01/23 12:07 Sodium Ferric Gluconat/Sucrose 62.5 Mg/5 Ml Vial IV-PUSH 04/30/24 08:59 62.5 mg WEEKLY PENNY Administration Sodium Chloride 1,000 mls @ 0 mls/hr 04/28/23 15:24 05/01/23 12:09 0.9% Sodium Chloride 1,000 Ml MISCELLANE 04/27/24 15:23 Infused .Q0M PRN Infusion Dialysis As Directed Ertapenem 0.5 gm/ Sodium 100 mls @ 200 mls/hr 04/30/23 11:30 05/05/23 15:28 Chloride IV 04/29/24 11:29 200 mls/hr Q24H PENNY Administration Sodium Chloride 1,000 mls @ 0 mls/hr 05/01/23 08:33 09/01/23 10:31 0.9% Sodium Chloride 1,000 Ml MISCELLANE 04/30/24 08:32 Infused .Q0M PRN Infusion Dialysis As Directed Sodium Chloride 1,000 mls @ 0 mls/hr 05/01/23 10:47 0.9% Sodium Chloride 1,000 Ml MISCELLANE 04/30/24 10:46 .Q0M PRN Dialysis As Directed Ipratropium [place] 0.5 mg 04/29/23 22:00 05/06/23 12:32 Ipratropium [place] 0.5 Mg/2.5 Ml Vial.Neb INHALATION 04/28/24 21:59 0.5 mg QID PENNY Administration Levalbuterol HCl 1.25 mg 05/05/23 13:00 05/06/23 12:33 Levalbuterol Hcl *Nf* 1.25 Mg/3 Ml Vial.Neb INHALATION 05/04/24 12:59 1.25 mg Q4H.WA PENNY Administration Protocol Lidocaine/Prilocaine 1 applic 04/28/23 17:45 05/05/23 08:57 Lidocaine-Prilocaine Cr 2.5-2.5% 5 Gm Tube TOPICAL 04/27/24 17:44 1 applic ONCE PRN Administration Dialysis Methylprednisolone Sodium Succinate 40 mg 05/05/23 14:00 05/06/23 13:45 Methylprednisolone Sod Succ 40 Mg/Ml Vial IV-PUSH 05/04/24 13:59 40 mg Q8HR PENNY Administration Metoprolol Tartrate 25 mg 04/28/23 21:00 04/28/23 21:28 Metoprolol Tartrate 25 Mg Tablet PO 04/27/24 20:59 25 mg BID PENNY Administration Ondansetron HCl 4 mg 04/28/23 17:46 Ondansetron 4 Mg/2 Ml Vial IV-PUSH 04/27/24 17:45 Q6H PRN Nausea And Vomiting Pantoprazole Sodium 40 mg 04/29/23 09:00 05/06/23 09:27 Pantoprazole 40 Mg Tablet. PO 04/28/24 08:59 40 mg DAILY PENNY Administration Paricalcitol 2 mcg 05/01/23 11:00 05/05/23 10:30 Paricalcitol 10 Mcg/2 Ml Vial IV-PUSH 08/27/24 10:59 2 mcg MoFr@11 PENNY Administration Potassium Chloride 40 meq 04/28/23 17:46 Potassium Chloride Er 20 Meq Tab.Er.Prt PO 04/27/24 17:45 DAILY PRN Hypokalemia Sildenafil Citrate 20 mg 04/28/23 22:00 05/06/23 13:45 Sildenafil Citrate 20 Mg Tablet PO 04/27/24 21:59 20 mg TID PENNY Administration Sodium Chloride 0 ml 04/28/23 13:04 05/05/23 15:28 Sodium Chloride 0.9 % 10 Ml Syringe IV-PUSH 04/27/24 13:03 10 ml PRN PRN Administration Flush Sodium Chloride 0 ml 04/28/23 15:24 04/29/23 12:39 Sodium Chloride 0.9 % 10 Ml Syringe IV-PUSH 04/27/24 15:23 10 ml PRN PRN Administration Flush Sodium Chloride 0 ml 05/01/23 08:33 05/05/23 10:30 Sodium Chloride 0.9 % 10 Ml Syringe IV-PUSH 04/30/24 08:32 10 ml PRN PRN Administration Flush Sodium Chloride 0 ml 05/01/23 10:47 Sodium Chloride 0.9 % 10 Ml Syringe IV-PUSH 04/30/24 10:46 PRN PRN Flush Sodium Chloride 0 ml 05/03/23 10:17 Sodium Chloride 0.9 % 10 Ml Syringe IV-PUSH 05/02/24 10:16 PRN PRN Flush Sterile Water 1 ml 05/05/23 09:22 05/06/23 05:09 Water For Injection,Sterile 10 Ml Vial INJECTION 05/04/24 09:21 1 ml PRN PRN Administration Reconstitute methylPREDNISolone sod succ A&P - Hospitalist Assessment/Plan (1) Prostatitis: (2) Cerebral palsy: (3) Anemia of renal disease: (4) ESRD (end stage renal disease): (5) E coli bacteremia: (6) Sepsis associated hypotension: (7) Blood in stool: Plan Patient has PICC. He will continue with Invanz at this moment. He will need a longer antibiotic as per ID. Antibiotic has been supplied to the home. Eventually he will go home with his PICC home health nurse monitor his IV antibiotic. At this moment parents are agreeing to take him home however I consulted tree chipper. He had low H&H and occult blood in the stool. I want to get their opinion whether patient will be a candidate for any further scope or we will keep him under observation. If I get clearance from the gastroenterology then he will be able to go home tomorrow. Documented By: Ceferino Godinez MD 05/06/23 1927 Signed By: <Electronically signed by Ceferino Godinez MD> 05/06/23 1357 [facility] Work Phone: [phone] 249-887509-02-2023 Progress note Author Jessica Macdonald [facility] May 06, 2023 11:12am Note Date/Time May 06, 2023 11:12am [facility] [address] [place] [address] Nephrology Progress Note Signed Patient: Ruddy Palmer MR#: [id number] : 1985 Acct:[id number] Age/Sex: 37 / M Adm Date: 3 Loc: Room: [address] [place] [address] Type: ADM IN Attending Dr: Ceferino Godinez MD Copies to: ~ Date of Service: 05/06/2023 Subjective Subjective Narrative: This is a 37-year-old male with a medical history of hypertension, cerebral palsy, COPD, pulm hypertension , ESRD, PE on Apixaban, anemia of renal disease and secondary hyperparathyroidism was brought into the emergency room for fever and hypotension. He does not communicate and most of the history was taken frompatient's chart and the patient's mother. His mother stated that patient started running fever 2 days prior to admission and had a fever of 102. He started having mild cough. He went for a his dialysis and was noticed to have a hypotension so he was sent to the emergency room for evaluation. Mother reported patient has a ESRD for 2 years after he had a septic shock and required dialysis. She reported that he was seen by the milk driver many years ago whenhe was found to have a solitary kidney. Patient currently goes to the [facility] twice a week Monday and Monday schedule. He currently has AV fistula asa dialysis access. Mother reported that patient still makes urine but he he is incontinent. Nephrology is consulted for ESRD management during the hospital stay. Interval history Patient is awake, no reported complaints. Patient had hemodialysis yesterday with no events. Blood pressure stable. Still has intermittent fever with temperature today 37.4 ?C. Patient has a PICCline for prolonged course of antibiotic for E. coli, ESBL per ID recommendation. Hemoglobin was down to 7 g/dL yesterday. He received 1 unit of packed RBCs and hemoglobin is appropriate To 8.8 g/dL. No evidence of obvious bleeding. Iron stores, B12 and folic acid are adequate. Stool for blood was positive on however the patient does not seems to have active bleeding at this point withadequate iron stores. Exam Physical Exam Vital Signs: Temp Pulse Resp BP Pulse Ox O2 Del Method O2 Flow Rate 37.4 C H 106 H 18 118/74 92 L Nasal Cannula 4 05/06/23 10:05/06/23 08:00 05/06/23 10:05/06/23 10:00 05/06/23 10:05/06/23 10:00 05/06/23 10:00 FiO2 40 05/06/23 10:00 Narrative: General: Awake, nonverbal. HEENT: Legally blind he has mild pallor with no jaundice or cyanosis. Neck: Supple no JVD no carotid bruit CVS S1-S2: regular rate and rhythm no murmur no gallop Chest clear to auscultation percussion no wheezing no crackles Abdomen: Soft bowel sounds normoactive no rebound no guarding Extremities no edema no clubbing Neurologic non verbal Skin exam: Normal no skin rash or lesions Vascular access: Left arm AV fistula with good thrill. No evidence of infection. Objective Intake and Output I&O: Intake & Output 05/03/23 05/04/23 05/05/23 05/06/23 23:59 23:59 23:59 23:59 Intake Total 1230 / 1230 1030 / 1030 800 / 800 150 / 150 Output Total 250 / 250 0 / 0 1902 / 1902 0 / 0 Balance 980 / 980 1030 / 1030 -1102 / -1102 150 / 150 Weight 62.3 kg 61 kg 62.9 kg 60.8 kg Meds and Allergies Meds: Active Medications Acetaminophen (Acetaminophen 325 Mg Tablet) 650 mg PO Q6H PRN PRN Reason: Pain 1-5 or fever Stop: 04/27/24 17:45 Last Admin: 05/02/23 21:42 Dose: 650 mg Hydrocodone Bitart/Acetaminophen (Hydrocodone/Acetaminophen 5-325 Mg Tablet) 1 tab PO Q4H PRN PRN Reason: Pain Scale 4 - 6 Last Admin: 05/05/23 10:59 Dose: 1 tab Acetylcysteine (Acetylcysteine 10% 100 Mg/Ml Vial) 400 mg INHALATION BID PENNY Stop: 05/04/24 09:29 Last Admin: 05/06/23 07:46 Dose: 400 mg Apixaban (Apixaban 2.5 Mg Tablet) 2.5 mg PO BID PENNY Stop: 04/27/24 20:59 Last Admin: 05/06/23 09:27 Dose: 2.5 mg Bumetanide (Bumetanide 2 Mg Tablet) 2 mg PO SuTuWeThSa@0900 PENNY Stop: 04/28/24 08:59 Last Admin: 05/06/23 09:27 Dose: 2 mg Clonazepam (Clonazepam 0.5 Mg Tablet) 0.5 mg PO TID PENNY Stop: 10/25/23 21:59 Last Admin: 05/06/23 09:28 Dose: 0.5 mg Diltiazem HCl (Diltiazem 30 Mg Tablet) 30 mg PO TID PENNY Stop: 04/27/24 21:59 Last Admin: 05/06/23 09:28 Dose: 30 mg Ferric Sodium Gluconate Complex (Sodium Ferric Gluconat/Sucrose 62.5 Mg/5 Ml Vial) 62.5 mg IV-PUSH WEEKLY [facility] Stop: 04/30/24 08:59 Last Admin: 05/01/23 12:07 Dose: 62.5 mg Sodium Chloride (0.9% Sodium Chloride 1,000 Ml) 1,000 mls @ 0 mls/hr MISCELLANE.Q0M PRN PRN Reason: Dialysis Stop: 04/27/24 15:23 Last Infusion: 05/01/23 12:09 Dose: Infused Ertapenem 0.5 gm/ Sodium (Chloride) 100 mls @ 200 mls/hr IV Q24H PENNY Stop: 04/29/24 11:29 Last Admin: 05/05/23 15:28 Dose: 200 mls/hr Sodium Chloride (0.9% Sodium Chloride 1,000 Ml) 1,000 mls @ 0 mls/hr MISCELLANE.Q0M PRN PRN Reason: Dialysis Stop: 04/30/24 08:32 Last Infusion: 05/05/23 10:31 Dose: Infused Sodium Chloride (0.9% Sodium Chloride 1,000 Ml) 1,000 mls @ 0 mls/hr MISCELLANE.Q0M PRN PRN Reason: Dialysis Stop: 04/30/24 10:46 Sodium Chloride (0.9 % Sodium Chloride) 500 mls @ 20 mls/hr IV PROTOCOL PRN PRN Reason: BLOOD TRANSFUSION Stop: 05/06/23 11:10 Ipratropium [place] (Ipratropium [place] 0.5 Mg/2.5 Ml Vial.Neb) 0.5 mg INHALATION QID [facility] Stop: 04/28/24 21:59 Last Admin: 05/06/23 07:45 Dose: 0.5 mg Levalbuterol HCl (Levalbuterol Hcl *Nf* 1.25 Mg/3 Ml Vial.Neb) 1.25 mg INHALATION Q4H.[place] [facility]; Protocol Stop: 05/04/24 12:59 Last Admin: 05/06/23 07:45 Dose: 1.25 mg Lidocaine/Prilocaine (Lidocaine-Prilocaine Cr 2.5-2.5% 5 Gm Tube) 1 applic TOPICAL ONCE PRN PRN Reason: Dialysis Stop: 04/27/24 17:44 Last Admin: 05/05/23 08:57 Dose: 1 applic Methylprednisolone Sodium Succinate (Methylprednisolone Sod Succ 40 Mg/Ml Vial) 40 mg IV-PUSH Q8HR [facility] Stop: 05/04/24 13:59 Last Admin: 05/06/23 05:09 Dose: 40 mg Metoprolol Tartrate (Metoprolol Tartrate 25 Mg Tablet) 25 mg PO BID [facility] Stop: 04/27/24 20:59 Last Admin: 04/28/23 21:28 Dose: 25 mg Ondansetron HCl (Ondansetron 4 Mg/2 Ml Vial) 4 mg IV-PUSH Q6H PRN PRN Reason: Nausea And Vomiting Stop: 04/27/24 17:45 Pantoprazole Sodium (Pantoprazole 40 Mg Tablet.) 40 mg PO DAILY [facility] Stop: 04/28/24 08:59 Last Admin: 05/06/23 09:27 Dose: 40 mg Paricalcitol (Paricalcitol 10 Mcg/2 Ml Vial) 2 mcg IV-PUSH MoFr@11 [facility] Stop: 04/30/24 10:59 Last Admin: 05/05/23 10:30 Dose: 2 mcg Potassium Chloride (Potassium Chloride Er 20 Meq Tab.Er.Prt) 40 meq PO DAILY PRN PRN Reason: Hypokalemia Stop: 04/27/24 17:45 Sildenafil Citrate (Sildenafil Citrate 20 Mg Tablet) 20 mg PO TID PENNY Stop: 04/27/24 21:59 Last Admin: 05/06/23 09:27 Dose: 20 mg Sodium Chloride (Sodium Chloride 0.9 % 10 Ml Syringe) 0 ml IV-PUSH PRN PRN PRN Reason: Flush Stop: 04/27/24 13:03 Last Admin: 05/05/23 15:28 Dose: 10 ml Sodium Chloride (Sodium Chloride 0.9 % 10 Ml Syringe) 0 ml IV-PUSH PRN PRN PRN Reason: Flush Stop: 04/27/24 15:23 Last Admin: 04/29/23 12:39 Dose: 10 ml Sodium Chloride (Sodium Chloride 0.9 % 10 Ml Syringe) 0 ml IV-PUSH PRN PRN PRN Reason: Flush Stop: 04/30/24 08:32 Last Admin: 05/05/23 10:30 Dose: 10 ml Sodium Chloride (Sodium Chloride 0.9 % 10 Ml Syringe) 0 ml IV-PUSH PRN PRN PRN Reason: Flush Stop: 04/30/24 10:46 Sodium Chloride (Sodium Chloride 0.9 % 10 Ml Syringe) 0 ml IV-PUSH PRN PRN PRN Reason: Flush Stop: 05/02/24 10:16 Sterile Water (Water For Injection,Sterile 10 Ml Vial) 1 ml INJECTION PRN PRN PRN Reason: Reconstitute methylPREDNISolone sod succ Stop: 05/04/24 09:21 Last Admin: 05/06/23 05:09 Dose: 1 ml Allergies ciprofloxacin [From Cipro] Allergy (Verified 04/28/23 13:10) Hives latex Allergy (Verified 04/28/23 13:10) Hives Results Labs 05/06/23 05:05 05/06/23 05:05 Labs: 05/05/23 05/06/23 09:50 05:05 BUN 36 H Creatinine 4.58 H D Iron Saturation 20.0 Ferritin 1147.6 H Radiology Impressions Impressions - last 24 hours: Any impression(s) listed above is documentation that was entered by the reading physician into a diagnostic report(s) for Ruddy Palmer. I have reviewed the report(s) and am incorporating any findings in the treatment plan of this patient where applicable. A&P - Nephrology Assessment/Plan (1) ESRD (end stage renal disease): Plan: He has a ESRD after MCKENNA in setting of sepsis. He has been on dialysis for 2 years and currently goes to the [facility] twice a week on Monday schedule (2) Sepsis associated hypotension: Plan: He was presented with fever leukocytosis and hypertension. His blood culture positive for E. coli bacteremia on ertapenem for ESBL. Source could be prostatic based on the CT scan finding of prostatomegaly and bladder outlet obstruction. (3) Anemia of renal disease: Plan: Hemoglobin is low in the setting of infection he receives Mircera with dialysis. Hemoglobin dropped further to 7 g/dL today. Platelets did improve. Stool for occult blood was positive in 05/01. Repeat stool for blood is pending. (4) Secondary hyperparathyroidism: Plan: He has a secondary hyperparathyroidism and currently receives IV Hectorol with dialysis. Plan * Hemoglobin dropped further to 7 g/dL today. Platelets did improve. Stool for occult blood was positive in 05/01. Repeat stool for blood is pending. Hemoglobin did improve after 1 unit of packed RBCs to 8.8 g/dL. No evidence of active bleeding at this point. Patient has adequate iron stores, B12 and folic acid. Patient will continue Aranesp as outpatient and hemoglobin expected to improve with treatment of infection. * Patient had full hemodialysis yesterday. Next hemodialysis will be on Monday if the patient still in the hospital otherwise it will be at his dialysis unit in [place]. * Patient had PICC line to continue ertapenem 0.5 g daily for ESBL bacteremia. CT scan of the abdomen showed prostatomegaly and PSA is elevated suggestive of prostatitis as a source of E. coli. ID recommend 4 weeks of antibiotics. Documented By: Jessica Macdonald MD 05/06/231106 Signed By: <Electronically signed by MD Jessica Macdonald> 05/06/23 1115 [facility] Work Phone: 1(459) 857-109009-01-2023 Progress note Author Kostas Wade [facility] May 05, 2023 2:16pm Note Date/Time May 05, 2023 2:16pm [facility] [address] [place] [address] Infect. Disease Progress Note Signed Patient: Ruddy Palmer MR#: [id number] : 1985 Acct:[id number] Age/Sex: 37 / M Adm Date: 3 Loc: Room: [address] [place] [address] Type: ADM IN Attending Dr: Bradford Henriquez MD Copies to: ~ Date of Service: 05/05/2023 Subjective Interval history: Patient being fed by his caregiver. Looks comfortable. No distress. Exam Physical Exam Vital Signs: Vital Signs Temp Pulse Pulse Resp BP BP BP 05/05/23 11:59 108 H 119/64 05/05/23 11:30 118 H 119/64 05/05/23 10:30 117 H 126/62 05/05/23 11:00 107 H 131/67 05/05/23 10:00 108 H 127/82 05/05/23 09:46 99 F 61 22 126/60 05/05/23 08:00 05/05/23 08:00 98.8 F 126 H 22 135/68 05/05/23 08:28 114 H 24 05/05/23 08:00 05/05/23 03:26 97.9 F 95 H 18 112/71 05/05/23 00:00 14 05/05/23 00:10 05/04/23 20:00 103 H 14 106/71 05/04/23 20:00 05/04/23 20:08 97 H 22 05/04/23 20:01 100 H 22 05/04/23 19:51 106 H 22 05/04/23 15:45 98.7 F 94 H 20 122/73 05/04/23 15:45 05/04/23 15:45 111 H 20 Const General: cooperative and no acute distress Orientation: other (nonverbal at baseline) HEENT Head: normal to inspection Neck Neck: normal visual inspection Chest Chest palpation & inspection: normal inspection of the chest Resp Effort & Inspection: normal respiratory effort Cardio Palpation: normal PMI GI Inspection: normal to inspection Skin General: no rashes or lesions noted Neuro General: patient alert Extrem General: muscle atrophy Objective Labs CBC/BMP: CBC, BMP 05/05/23 05/05/23 09:50 09:50 Corrected WBC 10.2 Uncorrected WBC Count 10.2 RBC 2.34 L Hgb 7.0 L Hct 22.4 L Plt Count 178 Sodium 134 L Potassium 3.7 Chloride 96 L Carbon Dioxide 27.0 Anion Gap 14.7 BUN 53 H Creatinine 6.65 H Calcium 7.3 L Labs: 05/05/23 09:50 BUN 53 H Creatinine 6.65 H Microbiology Microbiology: Microbiology - Results from entire visit 05/01/23 09:23 Blood - Right Antecubital Blood Culture - Preliminary No Growth 4 Days 05/01/23 09:25 Blood - Right Hand Blood Culture - Preliminary No Growth 4 Days 04/30/23 05:50 Blood - Right Antecubital Blood Culture - Final Escherichia coli (ESBL) 04/30/23 05:50 Blood - Right Antecubital Bacterial ID (NA Multiplex Assay) - Final 04/28/23 14:23 Blood - Right Antecubital Blood Culture - Final Escherichia coli (ESBL) 04/28/23 13:23 Blood - Right Antecubital Blood Culture - Final Escherichia coli (ESBL) 04/28/23 13:23 Blood - Right Antecubital Bacterial ID (NA Multiplex Assay) - Final 05/01/23 16:32 Stool Stool Occult Blood (TRINA) - Final 04/29/23 17:00 Straight Catheter Urine Culture - Final Escherichia coli (ESBL) Allergies and Medications Allergies and Active Meds Allergies ciprofloxacin [From Cipro] Allergy (Verified 04/28/23 13:10) Hives latex Allergy (Verified 04/28/23 13:10) Hives Active Medications Acetaminophen (Acetaminophen 325 Mg Tablet) 650 mg PO Q6H PRN PRN Reason: Pain 1-5 or fever Stop: 04/27/24 17:45 Last Admin: 05/02/23 21:42 Dose: 650 mg Hydrocodone Bitart/Acetaminophen (Hydrocodone/Acetaminophen 5-325 Mg Tablet) 1 tab PO Q4H PRN PRN Reason: Pain Scale 4 - 6 Last Admin: 05/05/23 10:59 Dose: 1 tab Acetylcysteine (Acetylcysteine 10% 100 Mg/Ml Vial) 400 mg INHALATION BID PENNY Stop: 05/04/24 09:29 Last Admin: 05/05/23 09:34 Dose: Not Given Apixaban (Apixaban 2.5 Mg Tablet) 2.5 mg PO BID [facility] Stop: 04/27/24 20:59 Last Admin: 05/05/23 08:42 Dose: Not Given Bumetanide (Bumetanide 2 Mg Tablet) 2 mg PO SuTuWeThSa@0900 PENNY Stop: 04/28/24 08:59 Last Admin: 05/04/23 08:04 Dose: 2 mg Clonazepam (Clonazepam 0.5 Mg Tablet) 0.5 mg PO TID [facility] Stop: 10/25/23 21:59 Last Admin: 05/05/23 08:42 Dose: Not Given Diltiazem HCl (Diltiazem 30 Mg Tablet) 30 mg PO TID [facility] Stop: 04/27/24 21:59 Last Admin: 05/05/23 08:42 Dose: Not Given Ferric Sodium Gluconate Complex (Sodium Ferric Gluconat/Sucrose 62.5 Mg/5 Ml Vial) 62.5 mg IV-PUSH WEEKLY [facility] Stop: 04/30/24 08:59 Last Admin: 05/01/23 12:07 Dose: 62.5 mg Sodium Chloride (0.9% Sodium Chloride 1,000 Ml) 1,000 mls @ 0 mls/hr MISCELLANE.Q0M PRN PRN Reason: Dialysis Stop: 04/27/24 15:23 Last Infusion: 05/01/23 12:09 Dose: Infused Ertapenem 0.5 gm/ Sodium (Chloride) 100 mls @ 200 mls/hr IV Q24H PENNY Stop: 04/29/24 11:29 Last Admin: 05/04/23 15:21 Dose: 200 mls/hr Sodium Chloride (0.9% Sodium Chloride 1,000 Ml) 1,000 mls @ 0 mls/hr MISCELLANE.Q0M PRN PRN Reason: Dialysis Stop: 04/30/24 08:32 Last Infusion: 05/05/23 10:31 Dose: Infused Sodium Chloride (0.9% Sodium Chloride 1,000 Ml) 1,000 mls @ 0 mls/hr [email or web address].[email or web address] PRN PRN Reason: Dialysis Stop: 04/30/24 10:46 Sodium Chloride (0.9 % Sodium Chloride) 500 mls @ 20 mls/hr IV PROTOCOL PRN PRN Reason: BLOOD TRANSFUSION Stop: 05/06/23 11:10 Ipratropium [place] (Ipratropium [place] 0.5 Mg/2.5 Ml Vial.Neb) 0.5 mg INHALATION QID [facility] Stop: 04/28/24 21:59 Last Admin: 05/05/23 08:27 Dose: 0.5 mg Levalbuterol HCl (Levalbuterol Hcl *Nf* 1.25 Mg/3 Ml Vial.Neb) 1.25 mg INHALATION Q4H.SHABANA [facility]; Protocol Stop: 05/04/24 12:59 Lidocaine/Prilocaine (Lidocaine-Prilocaine Cr 2.5-2.5% 5 Gm Tube) 1 applic TOPICAL ONCE PRN PRN Reason: Dialysis Stop: 04/27/24 17:44 Last Admin: 05/05/23 08:57 Dose: 1 applic Methylprednisolone Sodium Succinate (Methylprednisolone Sod Succ 40 Mg/Ml Vial) 40 mg IV-PUSH Q8HR [facility] Stop: 05/04/24 13:59 Metoprolol Tartrate (Metoprolol Tartrate 25 Mg Tablet) 25 mg PO BID [facility] Stop: 04/27/24 20:59 Last Admin: 04/28/23 21:28 Dose: 25 mg Ondansetron HCl (Ondansetron 4 Mg/2 Ml Vial) 4 mg IV-PUSH Q6H PRN PRN Reason: Nausea And Vomiting Stop: 04/27/24 17:45 Pantoprazole Sodium (Pantoprazole 40 Mg Tablet.) 40 mg PO DAILY [facility] Stop: 04/28/24 08:59 Last Admin: 05/05/23 08:42 Dose: Not Given Paricalcitol (Paricalcitol 10 Mcg/2 Ml Vial) 2 mcg IV-PUSH MoFr@11 [facility] Stop: 04/30/24 10:59 Last Admin: 05/05/23 10:30 Dose: 2 mcg Potassium Chloride (Potassium Chloride Er 20 Meq Tab.Er.Prt) 40 meq PO DAILY PRN PRN Reason: Hypokalemia Stop: 04/27/24 17:45 Sildenafil Citrate (Sildenafil Citrate 20 Mg Tablet) 20 mg PO TID [facility] Stop: 04/27/24 21:59 Last Admin: 05/05/23 08:42 Dose: Not Given Sodium Chloride (Sodium Chloride 0.9 % 10 Ml Syringe) 0 ml IV-PUSH PRN PRN PRN Reason: Flush Stop: 04/27/24 13:03 Last Admin: 05/03/23 15:12 Dose: 10 ml Sodium Chloride (Sodium Chloride 0.9 % 10 Ml Syringe) 0 ml IV-PUSH PRN PRN PRN Reason: Flush Stop: 04/27/24 15:23 Last Admin: 04/29/23 12:39 Dose: 10 ml Sodium Chloride (Sodium Chloride 0.9 % 10 Ml Syringe) 0 ml IV-PUSH PRN PRN PRN Reason: Flush Stop: 04/30/24 08:32 Last Admin: 05/05/23 10:30 Dose: 10 ml Sodium Chloride (Sodium Chloride 0.9 % 10 Ml Syringe) 0 ml IV-PUSH PRN PRN PRN Reason: Flush Stop: 04/30/24 10:46 Sodium Chloride (Sodium Chloride 0.9 % 10 Ml Syringe) 0 ml IV-PUSH PRN PRN PRN Reason: Flush Stop: 05/02/24 10:16 Sterile Water (Water For Injection,Sterile 10 Ml Vial) 1 ml INJECTION PRN PRN PRN Reason: Reconstitute methylPREDNISolone sod succ Stop: 05/04/24 09:21 A&P - Infectious Disease Assessment/Plan (1) E coli bacteremia: Code(s): R78.81 - Bacteremia; B96.20 - Unspecified Escherichia coli [E. coli] as the cause of diseases classified elsewhere Status: Acute (2) ESRD (end stage renal disease): Code(s): N18.6 - End stage renal disease Status: Acute (3) Pneumonia: Code(s): J18.9 - Pneumonia, unspecified organism Status: Acute Plan Patient source of E. coli in his blood I feel is secondary to perhaps prostate source based on imaging findings. PSA elevated 14.530. Given this we will treat for prostate a source of infection. Plan to treat for 4 weeks. PICC linecan be placed PSA ordered for 3 weeks. Documented By: Kostas Wade MD 05/05/23 141 Signed By: <Electronically signed by MD Kostas Wade> 05/05/23 1416 [facility] Work Phone: [phone] 767-795709-01-2023 Progress note Author Bradford Henriquez [facility] May 05, 2023 12:45pm Note Date/Time May 05, 2023 12:45pm [facility] [address] [place] [address] Hospitalist Progress Note Signed Patient: Ruddy Palmer MR#: [id number] : 1985 Acct:[id number] Age/Sex: 37 / M Adm Date: 3 Loc: 3T Room: [address] [place] [address] Type: ADM IN Attending Dr: Bradford Henriquez MD Copies to: ~ Date of Service: 05/05/2023 Subjective Subjective Narrative: Assessment And Plan 37M with PMH of HTN, 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, Cerebral Palsy, Blindness, Hearing impairment, COPD, CRF (on Home O2), Pulmonary HTN, ESRD (on HD), PE (on Eliquis) who presented with Hypotension from dialysis center and admitted for the evaluation and treatment of suspected Bacterial Pneumonia vs UTI Acute hypercapnic respiratory failure Seen and examined Clinically slightly worse Diffuse wheezing Requiring more O2 H/H are trending down Transfuse one unit blood Dialysis today Discussed with nephrolog y Albuterol and Atrovent Add Solu medrol IV 40 mg TID Increase Levalbuterol to every 4 hours Swallow evaluation UTI ECOli ESBL E.Coli Bacteremia No fever BLood cultures Blood Culture Preliminary 05/01/23-311 Gram Stain Gram Negative Bacilli Organism 1 Escherichia coli (ESBL) Urine culture Urine Culture Final 05/01/23-47 Organism 1 Escherichia coli (ESBL) [place] Count >100,000 CFU/ml Repeat blood cultures is negative so far PICC line placement Plan to dc with 2 weeks Invanz ID is following Bacterial pneumonia - ruled out No fever Blood cultures grew ECOLI Urine culture grew ECOLI On Invanz daily Swallow eval ESRD Nephrology was consulted for the management of dialysis and ESRD complication recommendation appreciated Dialysis today Transfuse one RBC Subjective: Not doing well Requiring more O2 Diffuse wheezing He is not verbal Exam Physical Exam Vital Signs: Temp Pulse Resp BP Pulse Ox O2 Del Method O2 Flow Rate 99 F 108 H 22 119/64 93 L Nasal Cannula 5 05/05/23 09:46 05/05/23 11:59 05/05/23 09:46 05/05/23 11:59 05/05/23 09:46 05/05/23 09:46 05/05/23 09:46 FiO2 40 05/04/23 08:00 Narrative: General:alert and awake non verbal not on acute distress HEENT: PERRLA, oral mucosa moist Neck: Supple no JVD no carotid bruit CVS S1-S2 regular rate and rhythm no murmur no gallop Chest clear to auscultation percussion no wheezing no crackles Abdomen: Soft bowel sounds normoactive no rebound no guarding Extremities no edema no clubbing Neurologic non verbal Skin exam: Normal no skin rash or lesions Musculoskeletal exam normal no joint effusion no movement limited no redness or swelling Objective Lab Results 05/05/23 09:50 05/05/23 09:50 Microbiology Results Microbiology 05/01/23 09:23 Blood - Right Antecubital Blood Culture - Preliminary No Growth 4 Days 05/01/23 09:25 Blood - Right Hand Blood Culture - Preliminary No Growth 4 Days Meds Allergies and Active Meds Allergies ciprofloxacin [From Cipro] Allergy (Verified 04/28/23 13:10) Hives latex Allergy (Verified 04/28/23 13:10) Hives Active Meds: Active Medications Generic Name Dose Route Start Last Admin Trade Name Nehemias PRN Reason Stop Dose Admin Acetaminophen 650 mg 04/28/23 17:46 05/02/23 21:42 Acetaminophen 325 Mg Tablet PO 04/27/24 17:45 650 mg Q6H PRN Administration Pain 1-5 or fever Hydrocodone Bitart/Acetaminophen 1 tab 04/28/23 17:46 05/05/23 10:59 Hydrocodone/Acetaminophen 5-325 Mg Tablet PO 1 tab Q4H PRN Administration Pain Scale 4 - 6 Acetylcysteine 400 mg 05/05/23 09:30 05/05/23 09:34 Acetylcysteine 10% 100 Mg/Ml Vial INHALATION 05/04/24 09:29 Not Given BID PENNY Apixaban 2.5 mg 04/28/23 21:00 05/05/23 08:42 Apixaban 2.5 Mg Tablet PO 04/27/24 20:59 Not Given BID PENNY Bumetanide 2 mg 04/29/23 09:00 05/04/23 08:04 Bumetanide 2 Mg Tablet PO 04/28/24 08:59 2 mg SuTuWeThSa@0900 PENNY Administration Clonazepam 0.5 mg 04/28/23 22:00 05/05/23 08:42 Clonazepam 0.5 Mg Tablet PO 10/25/23 21:59 Not Given TID PENNY Diltiazem HCl 30 mg 04/28/23 22:00 05/05/23 08:42 Diltiazem 30 Mg Tablet PO 04/27/24 21:59 Not Given TID PENNY Ferric Sodium Gluconate Complex 62.5 mg 05/01/23 09:00 05/01/23 12:07 Sodium Ferric Gluconat/Sucrose 62.5 Mg/5 Ml Vial IV-PUSH 04/30/24 08:59 62.5 mg WEEKLY PENNY Administration Sodium Chloride 1,000 mls @ 0 mls/hr 04/28/23 15:24 05/01/23 12:09 0.9% Sodium Chloride 1,000 Ml MISCELLANE 04/27/24 15:23 Infused .Q0M PRN Infusion Dialysis As Directed Ertapenem 0.5 gm/ Sodium 100 mls @ 200 mls/hr 04/30/23 11:30 05/04/23 15:21 Chloride IV 04/29/24 11:29 200 mls/hr Q24H [facility] Administration Sodium Chloride 1,000 mls @ 0 mls/hr 05/01/23 08:33 05/05/23 10:31 0.9% Sodium Chloride 1,000 Ml MISCELLANE 04/30/24 08:32 Infused .Q0M PRN Infusion Dialysis As Directed Sodium Chloride 1,000 mls @ 0 mls/hr 05/01/23 10:47 0.9% Sodium Chloride 1,000 Ml MISCELLANE 04/30/24 10:46 .Q0M PRN Dialysis As Directed Sodium Chloride 500 mls @ 20 mls/hr 05/05/23 11:11 0.9 % Sodium Chloride IV 05/06/23 11:10 PROTOCOL PRN BLOOD TRANSFUSION Ipratropium [place] 0.5 mg 04/29/23 22:00 05/05/23 08:27 Ipratropium [place] 0.5 Mg/2.5 Ml Vial.Neb INHALATION 04/28/24 21:59 0.5 mg QID PENNY Administration Levalbuterol HCl 1.25 mg 05/05/23 13:00 Levalbuterol Hcl *Nf* 1.25 Mg/3 Ml Vial.Neb INHALATION 05/04/24 12:59 Q4H.WA [facility] Protocol Lidocaine/Prilocaine 1 applic 04/28/23 17:45 05/05/23 08:57 Lidocaine-Prilocaine Cr 2.5-2.5% 5 Gm Tube TOPICAL 04/27/24 17:44 1 applic ONCE PRN Administration Dialysis Methylprednisolone Sodium Succinate 40 mg 05/05/23 14:00 Methylprednisolone Sod Succ 40 Mg/Ml Vial IV-PUSH 05/04/24 13:59 Q8HR [facility] Metoprolol Tartrate 25 mg 04/28/23 21:00 04/28/23 21:28 Metoprolol Tartrate 25 Mg Tablet PO 04/27/24 20:59 25 mg BID P[facility] Administration Ondansetron HCl 4 mg 04/28/23 17:46 Ondansetron 4 Mg/2 Ml Vial IV-PUSH 04/27/24 17:45 Q6H PRN Nausea And Vomiting Pantoprazole Sodium 40 mg 04/29/23 09:00 05/05/23 08:42 Pantoprazole 40 Mg Tablet. PO 04/28/24 08:59 Not Given DAILY [facility] Paricalcitol 2 mcg 05/01/23 11:00 05/05/23 10:30 Paricalcitol 10 Mcg/2 Ml Vial IV-PUSH 04/30/24 10:59 2 mcg MoFr@11 [facility] Administration Potassium Chloride 40 meq 04/28/23 17:46 Potassium Chloride Er 20 Meq Tab.Er.Prt PO 04/27/24 17:45 DAILY PRN Hypokalemia Sildenafil Citrate 20 mg 04/28/23 22:00 05/05/23 08:42 Sildenafil Citrate 20 Mg Tablet PO 04/27/24 21:59 Not Given TID PENNY Sodium Chloride 0 ml 04/28/23 13:04 05/03/23 15:12 Sodium Chloride 0.9 % 10 Ml Syringe IV-PUSH 04/27/24 13:03 10 ml PRN PRN Administration Flush Sodium Chloride 0 ml 04/28/23 15:24 04/29/23 12:39 Sodium Chloride 0.9 % 10 Ml Syringe IV-PUSH 04/27/24 15:23 10 ml PRN PRN Administration Flush Sodium Chloride 0 ml 05/01/23 08:33 05/05/23 10:30 Sodium Chloride 0.9 % 10 Ml Syringe IV-PUSH 04/30/24 08:32 10 ml PRN PRN Administration Flush Sodium Chloride 0 ml 05/01/23 10:47 Sodium Chloride 0.9 % 10 Ml Syringe IV-PUSH 04/30/24 10:46 PRN PRN Flush Sodium Chloride 0 ml 05/03/23 10:17 Sodium Chloride 0.9 % 10 Ml Syringe IV-PUSH 05/02/24 10:16 PRN PRN Flush Sterile Water 1 ml 05/05/23 09:22 Water For Injection,Sterile 10 Ml Vial INJECTION 05/04/24 09:21 PRN PRN Reconstitute methylPREDNISolone sod succ Documented By: Bradford Henriquez MD 05/05/23 1241 Signed By: <Electronically signed by Bradford Henriquez MD> 05/05/23 1245 [facility] Work Phone: [phone]) 680-825509-01-2023 Progress note Author Jessica [facility] May 05, 2023 11:16am Note Date/Time May 05, 2023 11:16am [facility] [address] [place] [address] Nephrology Progress Note Signed Patient: Ruddy Palmer MR#: [id number] : 1985 Acct:[id number] Age/Sex: 37 / M Adm Date: 3 Loc: Room: [address] [place] [address] Type: ADM IN Attending Dr: Bradford Henriquez MD Copies to: ~ Date of Service: 05/05/2023 Subjective Subjective Narrative: This is a 37-year-old male with a medical history of hypertension, cerebral palsy, COPD, pulm hypertension , ESRD, PE on Apixaban, anemia of renal disease and secondary hyperparathyroidism was brought into the emergency room for fever and hypotension. He does not communicate and most of the history was taken frompatient's chart and the patient's mother. His mother stated that patient started running fever 2 days prior to admission and had a fever of 102. He started having mild cough. He went for a his dialysis and was noticed to have a hypotension so he was sent to the emergency room for evaluation. Mother reported patient has a ESRD for 2 years after he had a septic shock and required dialysis. She reported that he was seen by the milk driver many years ago whenhe was found to have a solitary kidney. Patient currently goes to the [facility] twice a week Monday and Monday schedule. He currently has AV fistula asa dialysis access. Mother reported that patient still makes urine but he he is incontinent. Nephrology is consulted for ESRD management during the hospital stay. Interval history Patient is being seen and examined on hemodialysis. He had right arm PICC line yesterday to continue ertapenem as outpatient for total 4 weeks for E. coli ESBL bacteremia related to prostatitis. Patient is more lethargic with shortness of breath. He is known to have pulmonary hypertension on sildenafil. Hemoglobin did drop down to 7 g/dL with no obvious bleeding. Platelet count has been low however it is up more than 100today. Patient almost at his dry weight. He has good urine output. Exam Physical Exam Vital Signs: Temp Pulse Resp BP Pulse Ox O2 Del Method O2 Flow Rate 37.2 C 107 H 22 131/67 93 L Nasal Cannula 5 05/05/23 09:46 05/05/23 11:00 05/05/23 09:46 05/05/23 11:00 05/05/23 09:46 05/05/23 09:46 05/05/23 09:46 FiO2 40 05/04/23 08:00 Narrative: General: Awake, nonverbal. HEENT: Legally blind he has mild pallor with no jaundice or cyanosis. Neck: Supple no JVD no carotid bruit CVS S1-S2: regular rate and rhythm no murmur no gallop Chest clear to auscultation percussion no wheezing no crackles Abdomen: Soft bowel sounds normoactive no rebound no guarding Extremities no edema no clubbing Neurologic non verbal Skin exam: Normal no skin rash or lesions Vascular access: Left arm AV fistula with good thrill. No evidence of infection. Objective Intake and Output I&O: Intake & Output 05/02/23 05/03/23 05/04/23 05/05/23 23:59 23:59 23:59 23:59 Intake Total 1150 / 1150 1230 / 1230 930 / 930 650 / 650 Output Total 250 / 250 0 / 0 Balance 1150 / 1150 980 / 980 930 / 930 650 / 650 Weight 61 kg 62.3 kg 61 kg 62.9 kg Meds and Allergies Meds: Active Medications Acetaminophen (Acetaminophen 325 Mg Tablet) 650 mg PO Q6H PRN PRN Reason: Pain 1-5 or fever Stop: 04/27/24 17:45 Last Admin: 05/02/23 21:42 Dose: 650 mg Hydrocodone Bitart/Acetaminophen (Hydrocodone/Acetaminophen 5-325 Mg Tablet) 1 tab PO Q4H PRN PRN Reason: Pain Scale 4 - 6 Last Admin: 05/05/23 10:59 Dose: 1 tab Acetylcysteine (Acetylcysteine 10% 100 Mg/Ml Vial) 400 mg INHALATION BID [facility] Stop: 05/04/24 09:29 Last Admin: 05/05/23 09:34 Dose: Not Given Apixaban (Apixaban 2.5 Mg Tablet) 2.5 mg PO BID [facility] Stop: 04/27/24 20:59 Last Admin: 05/05/23 08:42 Dose: Not Given Bumetanide (Bumetanide 2 Mg Tablet) 2 mg PO SuTuWeThSa@0900 [facility] Stop: 04/28/24 08:59 Last Admin: 05/04/23 08:04 Dose: 2 mg Clonazepam (Clonazepam 0.5 Mg Tablet) 0.5 mg PO TID [facility] Stop: 10/25/23 21:59 Last Admin: 05/05/23 08:42 Dose: Not Given Diltiazem HCl (Diltiazem 30 Mg Tablet) 30 mg PO TID [facility] Stop: 04/27/24 21:59 Last Admin: 05/05/23 08:42 Dose: Not Given Ferric Sodium Gluconate Complex (Sodium Ferric Gluconat/Sucrose 62.5 Mg/5 Ml Vial) 62.5 mg IV-PUSH WEEKLY [facility] Stop: 04/30/24 08:59 Last Admin: 05/01/23 12:07 Dose: 62.5 mg Sodium Chloride (0.9% Sodium Chloride 1,000 Ml) 1,000 mls @ 0 mls/hr MISCELLANE.Q0M PRN PRN Reason: Dialysis Stop: 04/27/24 15:23 Last Infusion: 05/01/23 12:09 Dose: Infused Ertapenem 0.5 gm/ Sodium (Chloride) 100 mls @ 200 mls/hr IV Q24H [facility] Stop: 04/29/24 11:29 Last Admin: 05/04/23 15:21 Dose: 200 mls/hr Sodium Chloride (0.9% Sodium Chloride 1,000 Ml) 1,000 mls @ 0 mls/hr MISCELLANE.Q0M PRN PRN Reason: Dialysis Stop: 04/30/24 08:32 Last Infusion: 05/05/23 10:31 Dose: Infused Sodium Chloride (0.9% Sodium Chloride 1,000 Ml) 1,000 mls @ 0 mls/hr MISCELLANE.Q0M PRN PRN Reason: Dialysis Stop: 04/30/24 10:46 Sodium Chloride (0.9 % Sodium Chloride) 500 mls @ 20 mls/hr IV PROTOCOL PRN PRN Reason: BLOOD TRANSFUSION Stop: 05/06/23 11:10 Ipratropium [place] (Ipratropium [place] 0.5 Mg/2.5 Ml Vial.Neb) 0.5 mg INHALATION QID [facility] Stop: 04/28/24 21:59 Last Admin: 05/05/23 08:27 Dose: 0.5 mg Levalbuterol HCl (Levalbuterol Hcl *Nf* 1.25 Mg/3 Ml Vial.Neb) 1.25 mg INHALATION Q4H.SHABANA [facility]; Protocol Stop: 05/04/24 12:59 Lidocaine/Prilocaine (Lidocaine-Prilocaine Cr 2.5-2.5% 5 Gm Tube) 1 applic TOPICAL ONCE PRN PRN Reason: Dialysis Stop: 04/27/24 17:44 Last Admin: 05/05/23 08:57 Dose: 1 applic Methylprednisolone Sodium Succinate (Methylprednisolone Sod Succ 40 Mg/Ml Vial) 40 mg IV-PUSH Q8HR [facility] Stop: 05/04/24 13:59 Metoprolol Tartrate (Metoprolol Tartrate 25 Mg Tablet) 25 mg PO BID [facility] Stop: 04/27/24 20:59 Last Admin: 04/28/23 21:28 Dose: 25 mg Ondansetron HCl (Ondansetron 4 Mg/2 Ml Vial) 4 mg IV-PUSH Q6H PRN PRN Reason: Nausea And Vomiting Stop: 04/27/24 17:45 Pantoprazole Sodium (Pantoprazole 40 Mg Tablet.Dr) 40 mg PO DAILY [facility] Stop: 04/28/24 08:59 Last Admin: 05/05/23 08:42 Dose: Not Given Paricalcitol (Paricalcitol 10 Mcg/2 Ml Vial) 2 mcg IV-PUSH MoFr@11 [facility] Stop: 04/30/24 10:59 Last Admin: 05/05/23 10:30 Dose: 2 mcg Potassium Chloride (Potassium Chloride Er 20 Meq Tab.Er.Prt) 40 meq PO DAILY PRN PRN Reason: Hypokalemia Stop: 04/27/24 17:45 Sildenafil Citrate (Sildenafil Citrate 20 Mg Tablet) 20 mg PO TID [facility] Stop: 04/27/24 21:59 Last Admin: 05/05/23 08:42 Dose: Not Given Sodium Chloride (Sodium Chloride 0.9 % 10 Ml Syringe) 0 ml IV-PUSH PRN PRN PRN Reason: Flush Stop: 04/27/24 13:03 Last Admin: 05/03/23 15:12 Dose: 10 ml Sodium Chloride (Sodium Chloride 0.9 % 10 Ml Syringe) 0 ml IV-PUSH PRN PRN PRN Reason: Flush Stop: 04/27/24 15:23 Last Admin: 04/29/23 12:39 Dose: 10 ml Sodium Chloride (Sodium Chloride 0.9 % 10 Ml Syringe) 0 ml IV-PUSH PRN PRN PRN Reason: Flush Stop: 04/30/24 08:32 Last Admin: 05/05/23 10:30 Dose: 10 ml Sodium Chloride (Sodium Chloride 0.9 % 10 Ml Syringe) 0 ml IV-PUSH PRN PRN PRN Reason: Flush Stop: 04/30/24 10:46 Sodium Chloride (Sodium Chloride 0.9 % 10 Ml Syringe) 0 ml IV-PUSH PRN PRN PRN Reason: Flush Stop: 05/02/24 10:16 Sterile Water (Water For Injection,Sterile 10 Ml Vial) 1 ml INJECTION PRN PRN PRN Reason: Reconstitute methylPREDNISolone sod succ Stop: 05/04/24 09:21 Allergies ciprofloxacin [From Cipro] Allergy (Verified 04/28/23 13:10) Hives latex Allergy (Verified 04/28/23 13:10) Hives Results Labs 05/05/23 09:50 05/05/23 09:50 Labs: 05/05/23 09:50 BUN 53 H Creatinine 6.65 H Phosphorus 5.8 Albumin 3.1 L Radiology Impressions Impressions - last 24 hours: Any impression(s) listed above is documentation that was entered by the reading physician into a diagnostic report(s) for Ruddy Palmer. I have reviewed the report(s) and am incorporating any findings in the treatment plan of this patient where applicable. A&P - Nephrology Assessment/Plan (1) ESRD (end stage renal disease): Plan: He has a ESRD after MCKENNA in setting of sepsis. He has been on dialysis for 2 years and currently goes to the [facility] twice a week on Monday schedule (2) Sepsis associated hypotension: Plan: He was presented with fever leukocytosis and hypertension. His blood culture positive for E. coli bacteremia on ertapenem for ESBL. Source could be prostatic based on the CT scan finding of prostatomegaly and bladder outlet obstruction. (3) Anemia of renal disease: Plan: Hemoglobin is low in the setting of infection he receives Mircera with dialysis. Hemoglobin dropped further to 7 g/dL today. Platelets did improve. (4) Secondary hyperparathyroidism: Plan: He has a secondary hyperparathyroidism and currently receives IV Hectorol with dialysis. Plan * Hemodialysis today per his chronic orders for 3 and half hours, 3K bath. We will check BMP today and adjust potassium bath accordingly. * Hemoglobin did drop down to 7 g/dL. Heparin still on hold since platelets was low however platelets did improve. Patient has more shortness of breath seems to be related to underlying obstructive lung disease however he required more oxygen in the setting of anemia. We will transfuse 1 unit of packed RBCs. * Patient had PICC line to continue ertapenem 0.5 g daily for ESBL bacteremia. CT scan of the abdomen showed prostatomegaly and PSA is elevated suggestive of prostatitis as a source of E. coli. ID recommend 3 to 4 weeks of antibiotics. * Continue darbepoetin tatianna 40 mcg weekly, ferric sodium gluconate 62.5 mg IV weekly and paricalcitol 2 mcg with each hemodialysis * Will check iron stores, B12 and folic acid and replete as indicated. We will check stool for blood as well. He does not take any blood thinner medications. Documented By: Jessica Macdonald MD 05/05/231112 Signed By: <Electronically signed by MD Jessica Macdonald> 05/05/23 1116 [facility] Work Phone: [phone]) 461-937708-31-2023 Progress note Author Jessica Macdonald [facility] May 04, 2023 12:22pm Note Date/Time May 04, 2023 12 :22pm [facility] [address] [place] [address] Nephrology Progress Note Signed Patient: Ruddy Palmer MR#: [id number] : 1985 Acct:[id number] Age/Sex: 37 / M Adm Date: 3 Loc: Room: [address] [place] [address] Type: ADM IN Attending Dr: Bradford Henriquez MD Copies to: ~ Date of Service: 05/04/2023 Subjective Subjective Narrative: This is a 37-year-old male with a medical history of hypertension, cerebral palsy, COPD, pulm hypertension , ESRD, PE on Apixaban, anemia of renal disease and secondary hyperparathyroidism was brought into the emergency room for fever and hypotension. He does not communicate and most of the history was taken frompatient's chart and the patient's mother. His mother stated that patient started running fever 2 days prior to admission and had a fever of 102. He started having mild cough. He went for a his dialysis and was noticed to have a hypotension so he was sent to the emergency room for evaluation. Mother reported patient has a ESRD for 2 years after he had a septic shock and required dialysis. She reported that he was seen by the milk driver many years ago whenhe was found to have a solitary kidney. Patient currently goes to the [facility] twice a week Monday and Monday schedule. He currently has AV fistula asa dialysis access. Mother reported that patient still makes urine but he he is incontinent. Nephrology is consulted for ESRD management during the hospital stay. Interval history No new complaints. Patient still ertapenem for E. coli ESBL bacteremia that need to be continued as outpatient. Patient is going to have PICC line. Patient gets dialysis twice a week since he has some residual renal function. Patient has mild acidosis however seems to be mainly respiratory with PCO2 69.8 Exam Physical Exam Vital Signs: Temp Pulse Resp BP Pulse Ox O2 Del Method O2 Flow Rate 36.9 C 94 H 24 122/75 95 BiPAP 10 05/04/23 08:00 05/04/23 09:00 05/04/23 09:00 05/04/23 08:00 05/04/23 08:00 05/04/23 08:00 05/04/23 08:00 FiO2 40 05/04/23 08:00 Narrative: General: Awake, nonverbal. HEENT: Legally blind he has mild pallor with no jaundice or cyanosis. Neck: Supple no JVD no carotid bruit CVS S1-S2: regular rate and rhythm no murmur no gallop Chest clear to auscultation percussion no wheezing no crackles Abdomen: Soft bowel sounds normoactive no rebound no guarding Extremities no edema no clubbing Neurologic non verbal Skin exam: Normal no skin rash or lesions Vascular access: Left arm AV fistula with good thrill. No evidence of infection. Objective Intake and Output I&O: Intake & Output 05/01/23 05/02/23 05/03/23 05/04/23 23:59 23:59 23:59 23:59 Intake Total 1350 / 1350 1150 / 1150 1130 / 1130 Output Total 1500 / 1500 250 / 250 Balance -150 / -150 1150 / 1150 880 / 880 Weight 61.1 kg 61 kg 62.3 kg 61 kg Meds and Allergies Meds: Active Medications Acetaminophen (Acetaminophen 325 Mg Tablet) 650 mg PO Q6H PRN PRN Reason: Pain 1-5 or fever Stop: 04/27/24 17:45 Last Admin: 05/02/23 21:42 Dose: 650 mg Hydrocodone Bitart/Acetaminophen (Hydrocodone/Acetaminophen 5-325 Mg Tablet) 1 tab PO Q4H PRN PRN Reason: Pain Scale 4 - 6 Apixaban (Apixaban 2.5 Mg Tablet) 2.5 mg PO BID [facility] Stop: 04/27/24 20:59 Last Admin: 05/04/23 08:04 Dose: 2.5 mg Bumetanide (Bumetanide 2 Mg Tablet) 2 mg PO SuTuWeThSa@0900 [facility] Stop: 04/28/24 08:59 Last Admin: 05/04/23 08:04 Dose: 2 mg Clonazepam (Clonazepam 0.5 Mg Tablet) 0.5 mg PO TID [facility] Stop: 10/25/23 21:59 Last Admin: 05/04/23 08:04 Dose: 0.5 mg Diltiazem HCl (Diltiazem 30 Mg Tablet) 30 mg PO TID [facility] Stop: 04/27/24 21:59 Last Admin: 05/04/23 08:04 Dose: 30 mg Ferric Sodium Gluconate Complex (Sodium Ferric Gluconat/Sucrose 62.5 Mg/5 Ml Vial) 62.5 mg IV-PUSH WEEKLY [facility] Stop: 04/30/24 08:59 Last Admin: 05/01/23 12:07 Dose: 62.5 mg Sodium Chloride (0.9% Sodium Chloride 1,000 Ml) 1,000 mls @ 0 mls/hr MISCELLANE.Q0M PRN PRN Reason: Dialysis Stop: 04/27/24 15:23 Last Infusion: 05/01/23 12:09 Dose: Infused Ertapenem 0.5 gm/ Sodium (Chloride) 100 mls @ 200 mls/hr IV Q24H PENNY Stop: 04/29/24 11:29 Last Admin: 05/03/23 15:11 Dose: 200 mls/hr Sodium Chloride (0.9% Sodium Chloride 1,000 Ml) 1,000 mls @ 0 mls/hr MISCELLANE.Q0M PRN PRN Reason: Dialysis Stop: 04/30/24 08:32 Sodium Chloride (0.9% Sodium Chloride 1,000 Ml) 1,000 mls @ 0 mls/hr MISCELLANE.Q0M PRN PRN Reason: Dialysis Stop: 04/30/24 10:46 Ipratropium [place] (Ipratropium [place] 0.5 Mg/2.5 Ml Vial.Neb) 0.5 mg INHALATION QID [facility] Stop: 04/28/24 21:59 Last Admin: 05/04/23 09:09 Dose: 0.5 mg Levalbuterol HCl (Levalbuterol Hcl *Nf* 1.25 Mg/3 Ml Vial.Neb) 1.25 mg INHALATION QID [facility]; Protocol Stop: 04/28/24 21:59 Last Admin: 05/04/23 09:09 Dose: 1.25 mg Lidocaine/Prilocaine (Lidocaine-Prilocaine Cr 2.5-2.5% 5 Gm Tube) 1 applic TOPICAL ONCE PRN PRN Reason: Dialysis Stop: 04/27/24 17:44 Last Admin: 05/01/23 08:34 Dose: 1 applic Metoprolol Tartrate (Metoprolol Tartrate 25 Mg Tablet) 25 mg PO BID [facility] Stop: 04/27/24 20:59 Last Admin: 04/28/23 21:28 Dose: 25 mg Ondansetron HCl (Ondansetron 4 Mg/2 Ml Vial) 4 mg IV-PUSH Q6H PRN PRN Reason: Nausea And Vomiting Stop: 04/27/24 17:45 Pantoprazole Sodium (Pantoprazole 40 Mg Tablet.Dr) 40 mg PO DAILY [facility] Stop: 04/28/24 08:59 Last Admin: 05/04/23 08:04 Dose: 40 mg Paricalcitol (Paricalcitol 10 Mcg/2 Ml Vial) 2 mcg IV-PUSH MoFr@11 [facility] Stop: 04/30/24 10:59 Last Admin: 05/01/23 12:06 Dose: 2 mcg Potassium Chloride (Potassium Chloride Er 20 Meq Tab.Er.Prt) 40 meq PO DAILY PRN PRN Reason: Hypokalemia Stop: 04/27/24 17:45 Sildenafil Citrate (Sildenafil Citrate 20 Mg Tablet) 20 mg PO TID [facility] Stop: 04/27/24 21:59 Last Admin: 05/04/23 08:04 Dose: 20 mg Sodium Chloride (Sodium Chloride 0.9 % 10 Ml Syringe) 0 ml IV-PUSH PRN PRN PRN Reason: Flush Stop: 04/27/24 13:03 Last Admin: 05/03/23 15:12 Dose: 10 ml Sodium Chloride (Sodium Chloride 0.9 % 10 Ml Syringe) 0 ml IV-PUSH PRN PRN PRN Reason: Flush Stop: 04/27/24 15:23 Last Admin: 04/29/23 12:39 Dose: 10 ml Sodium Chloride (Sodium Chloride 0.9 % 10 Ml Syringe) 0 ml IV-PUSH PRN PRN PRN Reason: Flush Stop: 04/30/24 08:32 Sodium Chloride (Sodium Chloride 0.9 % 10 Ml Syringe) 0 ml IV-PUSH PRN PRN PRN Reason: Flush Stop: 04/30/24 10:46 Sodium Chloride (Sodium Chloride 0.9 % 10 Ml Syringe) 0 ml IV-PUSH PRN PRN PRN Reason: Flush Stop: 05/02/24 10:16 Allergies ciprofloxacin [From Cipro] Allergy (Verified 04/28/23 13:10) Hives latex Allergy (Verified 04/28/23 13:10) Hives Results Labs 05/02/23 05:40 05/03/23 05:40 Radiology Impressions Impressions - last 24 hours: Impressions Chest X-Ray 05/03/23 17:30 IMPRESSION: Continued mild interstitial prominence in the left basilar parenchymal densities. No new findings. Impression dictated by: Rojas Navarrete M.D.05/03/2023 7:23 PM Dictation Location: [place] [address] Any impression(s) listed above is documentation that was entered by the reading physician into a diagnostic report(s) for Ruddy Palmer. I have reviewed the report(s) and am incorporating any findings in the treatment plan of this patient where applicable. A&P - Nephrology Assessment/Plan (1) ESRD (end stage renal disease): Plan: He has a ESRD after MCKENNA in setting of sepsis. He has been on dialysis for 2 years and currently goes to the [facility] twice a week on Monday schedule (2) Sepsis associated hypotension: Plan: He was presented with fever leukocytosis and hypertension. His blood culture positive for E. coli bacteremia on ertapenem for ESBL. Source could be prostatic based on the CT scan finding of prostatomegaly and bladder outlet obstruction. (3) Anemia of renal disease: Plan: Hemoglobin is low in the setting of infection he receives Mircera with dialysis. (4) Secondary hyperparathyroidism: Plan: He has a secondary hyperparathyroidism and currently receives IV Hectorol with dialysis. Plan * Patient gets dialysis twice a week on Monday and Monday. He has no volume overload. Acidosis seems to be related to respiratory acidosis with decreased ventilation. Next hemodialysis will be tomorrow. * Patient going to have PICC line to continue ertapenem 0.5 g daily for ESBL bacteremia. CT scan of the abdomen showed prostatomegaly and PSA is elevated suggestive of prostatitis as a source of E. coli. ID recommend 3 to 4 weeks of antibiotics. * Continue darbepoetin tatianna 40 mcg weekly, ferric sodium gluconate 62.5 mg IV weekly and paricalcitol 2 mcg with each hemodialysis Documented By: Jessica Macdonald MD 05/04/23 1219 Signed By: <Electronically signed by MD Jessica Macdonald> 05/04/23 1222 [facility] Work Phone: 1(524) 947-410808-31-2023 Hospital Discharge instructionsAmbulatory Orders* Initiate Home Health Time Frame: 05/04/23, Location: Determined By Patient * DME Home Medical Equipment Time Frame: 1 Day, Location: Determined By Patient Additional Instructions Continue Hemodialysis as scheduled. Please weigh yourself daily. Keep a record of these to take to your Dr. appointments. Continue to use home oxygen as directed. HOME HEALTH TO MANAGE: Nursing/PT to eval and treat Monitor VS per protocol Monitor Urinary assessment and for signs of increased infection--UTI, Bacteremia Monitor assessment--ESRD Assist with medication management and provide medication education Assist with monitoring daily weights Maintain and routine care to PICC line--Educate family on *Inserted on 05/04/23 Oxygen at 5L per nasal cannula, wean as tolerated back to chronic 2L Administer IV antibiotic as ordered--Educate family on Provide education on high risk fall precautions PSA in 3 weeks, see order COntinue pureed [facility] Work Phone: [phone]) 839-349608-31-2023 Progress note Author Bradford Henriquez [facility] May 04, 2023 10:50am Note Date/Time May 04, 2023 10 :43am [facility] [address] [place] [address] Hospitalist Progress Note Signed Patient: Ruddy Palmer MR#: [id number] : 1985 Acct:[id number] Age/Sex: 37 / M Adm Date: 3 Loc: Room: [address] [place] [address] Type: ADM IN Attending Dr: Bradford Henriquez MD Copies to: ~ Date of Service: 05/04/2023 Subjective Subjective Narrative: Assessment And Plan 37M with PMH of HTN, 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, Cerebral Palsy, Blindness, Hearing impairment, COPD, CRF (on Home O2), Pulmonary HTN, ESRD (on HD), PE (on Eliquis) who presented with Hypotension from dialysis center and admitted for the evaluation and treatment of suspected Bacterial Pneumonia vs UTI Acute hypercapnic respiratory failure Seen and examined Clinically better BIPAP at night Switched to NS Staturation is 97% Albuterol and Atrovent UTI ECOli ESBL E.Coli Bacteremia No fever BLood cultures Blood Culture Preliminary 05/01/23-311 Gram Stain Gram Negative Bacilli Organism 1 Escherichia coli (ESBL) Urine culture Urine Culture Final 05/01/23-846 Organism 1 Escherichia coli (ESBL) [place] Count >100,000 CFU/ml Repeat blood cultures is negative so far PICC line placement Plan to dc with 2 weeks Invanz ID is following Bacterial pneumonia - ruled out No fever Blood cultures grew ECOLI Urine culture grew ECOLI On Invanz daily Repeat blood cultures are negative so far ESRD Nephrology was consulted for the management of dialysis and ESRD complication recommendation appreciated Plan to dc on IV Invanz daily for [address] PICC line Subjective: Was on BIPAP over the night He is not verbal Not on acute distress No fever Exam Physical Exam Vital Signs: Temp Pulse Resp BP Pulse Ox O2 Del Method O2 Flow Rate 98.5 F 94 H 24 122/75 95 BiPAP 10 05/04/23 08:00 05/04/23 09:00 05/04/23 09:00 05/04/23 08:00 05/04/23 08:00 05/04/23 08:00 05/04/23 08:00 FiO2 40 05/04/23 08:00 Narrative: General:alert and awake non verbal not on acute distress HEENT: PERRLA, oral mucosa moist Neck: Supple no JVD no carotid bruit CVS S1-S2 regular rate and rhythm no murmur no gallop Chest clear to auscultation percussion no wheezing no crackles Abdomen: Soft bowel sounds normoactive no rebound no guarding Extremities no edema no clubbing Neurologic non verbal Skin exam: Normal no skin rash or lesions Musculoskeletal exam normal no joint effusion no movement limited no redness or swelling Objective Lab Results 05/02/23 05:40 05/03/23 05:40 Microbiology Results Microbiology 05/01/23 09:23 Blood - Right Antecubital Blood Culture - Preliminary No Growth 3 Days 05/01/23 09:25 Blood - Right Hand Blood Culture - Preliminary No Growth 3 Days 04/30/23 05:50 Blood - Right Antecubital Blood Culture - Final Escherichia coli (ESBL) 04/30/23 05:50 Blood - Right Antecubital Bacterial ID (NA Multiplex Assay) - Final Meds Allergies and Active Meds Allergies ciprofloxacin [From Cipro] Allergy (Verified 04/28/23 13:10) Hives latex Allergy (Verified 04/28/23 13:10) Hives Active Meds: Active Medications Generic Name Dose Route Start Last Admin Trade Name Freq PRN Reason Stop Dose Admin Acetaminophen 650 mg 04/28/23 17:46 05/02/23 21:42 Acetaminophen 325 Mg Tablet PO 04/27/24 17:45 650 mg Q6H PRN Administration Pain 1-5 or fever Hydrocodone Bitart/Acetaminophen 1 tab 04/28/23 17:46 Hydrocodone/Acetaminophen 5-325 Mg Tablet PO Q4H PRN Pain Scale 4 - 6 Apixaban 2.5 mg 04/28/23 21:00 05/04/23 08:04 Apixaban 2.5 Mg Tablet PO 04/27/24 20:59 2.5 mg BID PENNY Administration Bumetanide 2 mg 04/29/23 09:00 05/04/23 08:04 Bumetanide 2 Mg Tablet PO 04/28/24 08:59 2 mg [id number]@0900 PENNY Administration Clonazepam 0.5 mg 04/28/23 22:00 05/04/23 08:04 Clonazepam 0.5 Mg Tablet PO 10/25/23 21:59 0.5 mg TID PENNY Administration Diltiazem HCl 30 mg 04/28/23 22:00 05/04/23 08:04 Diltiazem 30 Mg Tablet PO 04/27/24 21:59 30 mg TID PENNY Administration Ferric Sodium Gluconate Complex 62.5 mg 05/01/23 09:00 05/01/23 12:07 Sodium Ferric Gluconat/Sucrose 62.5 Mg/5 Ml Vial IV-PUSH 04/30/24 08:59 62.5 mg WEEKLY PENNY Administration Sodium Chloride 1,000 mls @ 0 mls/hr 04/28/23 15:24 05/01/23 12:09 0.9% Sodium Chloride 1,000 Ml MISCELLANE 04/27/24 15:23 Infused .Q0M PRN Infusion Dialysis As Directed Ertapenem 0.5 gm/ Sodium 100 mls @ 200 mls/hr 04/30/23 11:30 05/03/23 15:11 Chloride IV 04/29/24 11:29 200 mls/hr Q24H PENNY Administration Sodium Chloride 1,000 mls @ 0 mls/hr 05/01/23 08:33 0.9% Sodium Chloride 1,000 Ml MISCELLANE 04/30/24 08:32 .Q0M PRN Dialysis As Directed Sodium Chloride 1,000 mls @ 0 mls/hr 05/01/23 10:47 0.9% Sodium Chloride 1,000 Ml MISCELLANE 04/30/24 10:46 .Q0M PRN Dialysis As Directed Ipratropium [place] 0.5 mg 04/29/23 22:00 05/04/23 09:09 Ipratropium [place] 0.5 Mg/2.5 Ml Vial.Neb INHALATION 04/28/24 21:59 0.5 mg QID PENNY Administration Levalbuterol HCl 1.25 mg 04/29/23 22:00 05/04/23 09:09 Levalbuterol Hcl *Nf* 1.25 Mg/3 Ml Vial.Neb INHALATION 04/28/24 21:59 1.25 mg QID PENNY Administration Protocol Lidocaine/Prilocaine 1 applic 04/28/23 17:45 05/01/23 08:34 Lidocaine-Prilocaine Cr 2.5-2.5% 5 Gm Tube TOPICAL 04/27/24 17:44 1 applic ONCE PRN Administration Dialysis Metoprolol Tartrate 25 mg 04/28/23 21:00 04/28/23 21:28 Metoprolol Tartrate 25 Mg Tablet PO 04/27/24 20:59 25 mg BID PENNY Administration Ondansetron HCl 4 mg 04/28/23 17:46 Ondansetron 4 Mg/2 Ml Vial IV-PUSH 04/27/24 17:45 Q6H PRN Nausea And Vomiting Pantoprazole Sodium 40 mg 04/29/23 09:00 05/04/23 08:04 Pantoprazole 40 Mg Tablet.Dr PO 04/28/24 08:59 40 mg DAILY PENNY Administration Paricalcitol 2 mcg 05/01/23 11:00 05/01/23 12:06 Paricalcitol 10 Mcg/2 Ml Vial IV-PUSH 04/30/24 10:59 2 mcg MoFr@11 PENNY Administration Potassium Chloride 40 meq 04/28/23 17:46 Potassium Chloride Er 20 Meq Tab.Er.Prt PO 04/27/24 17:45 DAILY PRN Hypokalemia Sildenafil Citrate 20 mg 04/28/23 22:00 05/04/23 08:04 Sildenafil Citrate 20 Mg Tablet PO 04/27/24 21:59 20 mg TID PENNY Administration Sodium Chloride 0 ml 04/28/23 13:04 05/03/23 15:12 Sodium Chloride 0.9 % 10 Ml Syringe IV-PUSH 04/27/24 13:03 10 ml PRN PRN Administration Flush Sodium Chloride 0 ml 04/28/23 15:24 04/29/23 12:39 Sodium Chloride 0.9 % 10 Ml Syringe IV-PUSH 04/27/24 15:23 10 ml PRN PRN Administration Flush Sodium Chloride 0 ml 05/01/23 08:33 Sodium Chloride 0.9 % 10 Ml Syringe IV-PUSH 04/30/24 08:32 PRN PRN Flush Sodium Chloride 0 ml 05/01/23 10:47 Sodium Chloride 0.9 % 10 Ml Syringe IV-PUSH 04/30/24 10:46 PRN PRN Flush Sodium Chloride 0 ml 05/03/23 10:17 Sodium Chloride 0.9 % 10 Ml Syringe IV-PUSH 05/02/24 10:16 PRN PRN Flush Documented By: Bradford Henriquez MD 05/04/23 1039 Signed By: <Electronically signed by Bradford Henriquez MD> 05/04/23 1050 [facility] Work Phone: [phone]) [phone] Progress note Author Kostas Wade [facility] May 04, 2023 10:46am Note Date/Time May 04, 2023 10 :43am [facility] [address] [place], [place] [id number] Infect. Disease Progress Note Signed Patient: Ruddy Palmer MR#: [id number] : 1985 Acct:[id number] Age/Sex: 37 / M Adm Date: 3 Loc: 3T Room: [address] [place] [address] Type: ADM IN Attending Dr: Bradford Henriquez MD Copies to: ~ Date of Service: 05/04/2023 Subjective Interval history: Patient is clinically about the same. His caregiver was present in the room. Ihad a nice discussion with her about plan of care. Patient is awaiting PICC line Exam Physical Exam Vital Signs: Temp Pulse Resp BP Pulse Ox O2 Del Method O2 Flow Rate 98.5 F 94 H 24 122/75 95 BiPAP 10 05/04/23 08:00 05/04/23 09:00 05/04/23 09:00 05/04/23 08:00 05/04/23 08:00 05/04/23 08:00 05/04/23 08:00 FiO2 40 05/04/23 08:00 Const General: cooperative and no acute distress HEENT Head: normal to inspection Neck Neck: normal visual inspection Chest Chest palpation & inspection: normal inspection of the chest Resp Effort & Inspection: normal respiratory effort and cough Cardio Palpation: normal PMI GI Inspection: normal to inspection Skin General: no rashes or lesions noted Neuro General: patient alert Extrem General: muscle atrophy Objective Microbiology Microbiology: Microbiology - Results from entire visit 05/01/23 09:23 Blood - Right Antecubital Blood Culture - Preliminary No Growth 3 Days 05/01/23 09:25 Blood - Right Hand Blood Culture - Preliminary No Growth 3 Days 04/30/23 05:50 Blood - Right Antecubital Blood Culture - Final Escherichia coli (ESBL) 04/30/23 05:50 Blood - Right Antecubital Bacterial ID (NA Multiplex Assay) - Final 04/28/23 14:23 Blood - Right Antecubital Blood Culture - Final Escherichia coli (ESBL) 04/28/23 13:23 Blood - Right Antecubital Blood Culture - Final Escherichia coli (ESBL) 04/28/23 13:23 Blood - Right Antecubital Bacterial ID (NA Multiplex Assay) - Final 05/01/23 16:32 Stool Stool Occult Blood (TRINA) - Final 04/29/23 17:00 Straight Catheter Urine Culture - Final Escherichia coli (ESBL) Allergies and Medications Allergies and Active Meds Allergies ciprofloxacin [From Cipro] Allergy (Verified 04/28/23 13:10) Hives latex Allergy (Verified 04/28/23 13:10) Hives Active Medications Acetaminophen (Acetaminophen 325 Mg Tablet) 650 mg PO Q6H PRN PRN Reason: Pain 1-5 or fever Stop: 04/27/24 17:45 Last Admin: 05/02/23 21:42 Dose: 650 mg Hydrocodone Bitart/Acetaminophen (Hydrocodone/Acetaminophen 5-325 Mg Tablet) 1 tab PO Q4H PRN PRN Reason: Pain Scale 4 - 6 Apixaban (Apixaban 2.5 Mg Tablet) 2.5 mg PO BID PENNY Stop: 04/27/24 20:59 Last Admin: 05/04/23 08:04 Dose: 2.5 mg Bumetanide (Bumetanide 2 Mg Tablet) 2 mg PO SuTuWeThSa@0900 PENNY Stop: 04/28/24 08:59 Last Admin: 05/04/23 08:04 Dose: 2 mg Clonazepam (Clonazepam 0.5 Mg Tablet) 0.5 mg PO TID [facility] Stop: 10/25/23 21:59 Last Admin: 05/04/23 08:04 Dose: 0.5 mg Diltiazem HCl (Diltiazem 30 Mg Tablet) 30 mg PO TID PENNY Stop: 04/27/24 21:59 Last Admin: 05/04/23 08:04 Dose: 30 mg Ferric Sodium Gluconate Complex (Sodium Ferric Gluconat/Sucrose 62.5 Mg/5 Ml Vial) 62.5 mg IV-PUSH WEEKLY PENNY Stop: 04/30/24 08:59 Last Admin: 05/01/23 12:07 Dose: 62.5 mg Sodium Chloride (0.9% Sodium Chloride 1,000 Ml) 1,000 mls @ 0 mls/hr MISCELLANE.Q0M PRN PRN Reason: Dialysis Stop: 04/27/24 15:23 Last Infusion: 05/01/23 12:09 Dose: Infused Ertapenem 0.5 gm/ Sodium (Chloride) 100 mls @ 200 mls/hr IV Q24H PENNY Stop: 04/29/24 11:29 Last Admin: 05/03/23 15:11 Dose: 200 mls/hr Sodium Chloride (0.9% Sodium Chloride 1,000 Ml) 1,000 mls @ 0 mls/hr MISCELLANE.Q0M PRN PRN Reason: Dialysis Stop: 04/30/24 08:32 Sodium Chloride (0.9% Sodium Chloride 1,000 Ml) 1,000 mls @ 0 mls/hr MISCELLANE.Q0M PRN PRN Reason: Dialysis Stop: 04/30/24 10:46 Ipratropium [place] (Ipratropium [place] 0.5 Mg/2.5 Ml Vial.[place]sey) 0.5 mg INHALATION QID [facility] Stop: 04/28/24 21:59 Last Admin: 05/04/23 09:09 Dose: 0.5 mg Levalbuterol HCl (Levalbuterol Hcl *Nf* 1.25 Mg/3 Ml Vial.Kelsey) 1.25 mg INHALATION QID [facility]; Protocol Stop: 04/28/24 21:59 Last Admin: 05/04/23 09:09 Dose: 1.25 mg Lidocaine/Prilocaine (Lidocaine-Prilocaine Cr 2.5-2.5% 5 Gm Tube) 1 applic TOPICAL ONCE PRN PRN Reason: Dialysis Stop: 04/27/24 17:44 Last Admin: 05/01/23 08:34 Dose: 1 applic Metoprolol Tartrate (Metoprolol Tartrate 25 Mg Tablet) 25 mg PO BID [facility] Stop: 04/27/24 20:59 Last Admin: 04/28/23 21:28 Dose: 25 mg Ondansetron HCl (Ondansetron 4 Mg/2 Ml Vial) 4 mg IV-PUSH Q6H PRN PRN Reason: Nausea And Vomiting Stop: 04/27/24 17:45 Pantoprazole Sodium (Pantoprazole 40 Mg Tablet.) 40 mg PO DAILY [facility] Stop: 04/28/24 08:59 Last Admin: 05/04/23 08:04 Dose: 40 mg Paricalcitol (Paricalcitol 10 Mcg/2 Ml Vial) 2 mcg IV-PUSH MoFr@11 [facility] Stop: 04/30/24 10:59 Last Admin: 05/01/23 12:06 Dose: 2 mcg Potassium Chloride (Potassium Chloride Er 20 Meq Tab.Er.Prt) 40 meq PO DAILY PRN PRN Reason: Hypokalemia Stop: 04/27/24 17:45 Sildenafil Citrate (Sildenafil Citrate 20 Mg Tablet) 20 mg PO TID [facility] Stop: 04/27/24 21:59 Last Admin: 05/04/23 08:04 Dose: 20 mg Sodium Chloride (Sodium Chloride 0.9 % 10 Ml Syringe) 0 ml IV-PUSH PRN PRN PRN Reason: Flush Stop: 04/27/24 13:03 Last Admin: 05/03/23 15:12 Dose: 10 ml Sodium Chloride (Sodium Chloride 0.9 % 10 Ml Syringe) 0 ml IV-PUSH PRN PRN PRN Reason: Flush Stop: 04/27/24 15:23 Last Admin: 04/29/23 12:39 Dose: 10 ml Sodium Chloride (Sodium Chloride 0.9 % 10 Ml Syringe) 0 ml IV-PUSH PRN PRN PRN Reason: Flush Stop: 04/30/24 08:32 Sodium Chloride (Sodium Chloride 0.9 % 10 Ml Syringe) 0 ml IV-PUSH PRN PRN PRN Reason: Flush Stop: 04/30/24 10:46 Sodium Chloride (Sodium Chloride 0.9 % 10 Ml Syringe) 0 ml IV-PUSH PRN PRN PRN Reason: Flush Stop: 05/02/24 10:16 A&P - Infectious Disease Assessment/Plan (1) E coli bacteremia: Code(s): R78.81 - Bacteremia; B96.20 - Unspecified Escherichia coli [E. coli] as the cause of diseases classified elsewhere Status: Acute (2) ESRD (end stage renal disease): Code(s): N18.6 - End stage renal disease Status: Acute (3) Pneumonia: Code(s): J18.9 - Pneumonia, unspecified organism Status: Acute Plan Patient source of E. coli in his blood I feel is secondary to perhaps prostate source based on imaging findings. Once blood cultures clear for which they are negative now at 1 day will likely benefit from a couple weeks worth of IV antibiotics. Given the ESBL producing organism he has grown continuing ertapenem. PSA elevated 14.530. Given this we will treat for prostate a sourceof infection. Plan 3 to 4 weeks. PICC line can be placed Documented By: Kostas Wade MD 05/04/23 104 Signed By: <Electronically signed by MD Kostas Wade> 05/04/23 1046 [facility] Work Phone: 1(139) 565-373408-30-2023 Progress note Author [facility] May 03, 2023 11:54am Note Date/Time May 03, 2023 11 :54am [facility] [address] [place] [address] Nephrology Progress Note Signed Patient: Ruddy Palmer MR#: [id number] : 1985 Acct:[id number] Age/Sex: 37 / M Adm Date: 3 Loc: Room: [address] [place] [address] Type: ADM IN Attending Dr: Bradford Henriquez MD Copies to: ~ Date of Service: 05/03/2023 Subjective Subjective Narrative: This is a 37-year-old male with a medical history of hypertension, cerebral palsy, COPD, pulm hypertension , ESRD, PE on Apixaban, anemia of renal disease and secondary hyperparathyroidism was brought into the emergency room for fever and hypotension. He does not communicate and most of the history was taken frompatient's chart and the patient's mother. His mother stated that patient started running fever 2 days prior to admission and had a fever of 102. He started having mild cough. He went for a his dialysis and was noticed to have a hypotension so he was sent to the emergency room for evaluation. Mother reported patient has a ESRD for 2 years after he had a septic shock and required dialysis. She reported that he was seen by the milk driver many years ago whenhe was found to have a solitary kidney. Patient currently goes to the [facility] twice a week Monday and Monday schedule. He currently has AV fistula asa dialysis access. Mother reported that patient still makes urine but he he is incontinent. Nephrology is consulted for ESRD management during the hospital stay. Interval history Patient is being seen and examined in his room. He is nonverbal. Cannot express himself with no reported complaints. Patient still on ertapenem for E. coli ESBL bacteremia source of which most likely prostate since he had prostatomegaly on CT scan and PSA is elevated 14.5. ID recommended 3 to 4 weeks of IV antibiotics for prostatitis. Patient gets dialysis twice a week since he has some residual renal function. Lab was reviewed today. Potassium 3.6. Blood pressure is normal. No acidosis. Exam Physical Exam Vital Signs: Temp Pulse Resp BP Pulse Ox O2 Del Method O2 Flow Rate 37.1 C 99 H 20 126/76 93 L Nasal Cannula 5 05/03/23 08:00 05/03/23 08:45 05/03/23 08:45 05/03/23 08:00 05/03/23 08:00 05/03/23 08:00 05/03/23 08:00 Narrative: General: Awake, nonverbal. HEENT: Legally blind he has mild pallor with no jaundice or cyanosis. Neck: Supple no JVD no carotid bruit CVS S1-S2: regular rate and rhythm no murmur no gallop Chest clear to auscultation percussion no wheezing no crackles Abdomen: Soft bowel sounds normoactive no rebound no guarding Extremities no edema no clubbing Neurologic non verbal Skin exam: Normal no skin rash or lesions Vascular access: Left arm AV fistula with good thrill. No evidence of infection. Objective Intake and Output I&O: Intake & Output 04/30/23 05/01/23 05/02/23 05/03/23 23:59 23:59 23:59 23:59 Intake Total 340 / 340 1350 / 1350 1150 / 1150 150 / 150 Output Total 1500 / 1500 Balance 340 / 340 -150 / -150 1150 / 1150 150 / 150 Weight 62.7 kg 61.1 kg 61 kg 62.3 kg Meds and Allergies Meds: Active Medications Acetaminophen (Acetaminophen 325 Mg Tablet) 650 mg PO Q6H PRN PRN Reason: Pain 1-5 or fever Stop: 04/27/24 17:45 Last Admin: 05/02/23 21:42 Dose: 650 mg Hydrocodone Bitart/Acetaminophen (Hydrocodone/Acetaminophen 5-325 Mg Tablet) 1 tab PO Q4H PRN PRN Reason: Pain Scale 4 - 6 Apixaban (Apixaban 2.5 Mg Tablet) 2.5 mg PO BID PENNY Stop: 04/27/24 20:59 Last Admin: 08/30/23 08:21 Dose: 2.5 mg Bumetanide (Bumetanide 2 Mg Tablet) 2 mg PO SuTuWeThSa@0900 PENNY Stop: 04/28/24 08:59 Last Admin: 05/03/23 08:21 Dose: 2 mg Clonazepam (Clonazepam 0.5 Mg Tablet) 0.5 mg PO TID [facility]ENNY Stop: 10/25/23 21:59 Last Admin: 05/03/23 08:21 Dose: 0.5 mg Diltiazem HCl (Diltiazem 30 Mg Tablet) 30 mg PO TID PENNY Stop: 04/27/24 21:59 Last Admin: 05/03/23 08:21 Dose: 30 mg Ferric Sodium Gluconate Complex (Sodium Ferric Gluconat/Sucrose 62.5 Mg/5 Ml Vial) 62.5 mg IV-PUSH WEEKLY [facility] Stop: 04/30/24 08:59 Last Admin: 05/01/23 12:07 Dose: 62.5 mg Sodium Chloride (0.9% Sodium Chloride 1,000 Ml) 1,000 mls @ 0 mls/hr MISCELLANE.Q0M PRN PRN Reason: Dialysis Stop: 04/27/24 15:23 Last Infusion: 05/01/23 12:09 Dose: Infused Ertapenem 0.5 gm/ Sodium (Chloride) 100 mls @ 200 mls/hr IV Q24H PENNY Stop: 04/29/24 11:29 Last Infusion: 05/02/23 15:00 Dose: Infused Sodium Chloride (0.9% Sodium Chloride 1,000 Ml) 1,000 mls @ 0 mls/hr MISCELLANE.Q0M PRN PRN Reason: Dialysis Stop: 04/30/24 08:32 Sodium Chloride (0.9% Sodium Chloride 1,000 Ml) 1,000 mls @ 0 mls/hr MISCELLANE.Q0M PRN PRN Reason: Dialysis Stop: 04/30/24 10:46 Ipratropium [place] (Ipratropium [place] 0.5 Mg/2.5 Ml Vial.Neb) 0.5 mg INHALATION QID [facility] Stop: 04/28/24 21:59 Last Admin: 05/03/23 08:44 Dose: 0.5 mg Levalbuterol HCl (Levalbuterol Hcl *Nf* 1.25 Mg/3 Ml Vial.Neb) 1.25 mg INHALATION QID [facility]; Protocol Stop: 04/28/24 21:59 Last Admin: 05/03/23 08:43 Dose: 1.25 mg Lidocaine/Prilocaine (Lidocaine-Prilocaine Cr 2.5-2.5% 5 Gm Tube) 1 applic TOPICAL ONCE PRN PRN Reason: Dialysis Stop: 04/27/24 17:44 Last Admin: 05/01/23 08:34 Dose: 1 applic Metoprolol Tartrate (Metoprolol Tartrate 25 Mg Tablet) 25 mg PO BID [facility] Stop: 04/27/24 20:59 Last Admin: 04/28/23 21:28 Dose: 25 mg Non-Formulary Medication (Dextromethorphan-Quinidine [Nuedexta]) 1 cap PO Q12H [facility] Stop: 04/27/24 17:44 Ondansetron HCl (Ondansetron 4 Mg/2 Ml Vial) 4 mg IV-PUSH Q6H PRN PRN Reason: Nausea And Vomiting Stop: 04/27/24 17:45 Pantoprazole Sodium (Pantoprazole 40 Mg Tablet.Dr) 40 mg PO DAILY [facility] Stop: 04/28/24 08:59 Last Admin: 05/03/23 08:21 Dose: 40 mg Paricalcitol (Paricalcitol 10 Mcg/2 Ml Vial) 2 mcg IV-PUSH MoFr@11 [facility] Stop: 04/30/24 10:59 Last Admin: 05/01/23 12:06 Dose: 2 mcg Potassium Chloride (Potassium Chloride Er 20 Meq Tab.Er.Prt) 40 meq PO DAILY PRN PRN Reason: Hypokalemia Stop: 04/27/24 17:45 Sildenafil Citrate (Sildenafil Citrate 20 Mg Tablet) 20 mg PO TID [facility] Stop: 04/27/24 21:59 Last Admin: 05/03/23 08:21 Dose: 20 mg Sodium Chloride (Sodium Chloride 0.9 % 10 Ml Syringe) 0 ml IV-PUSH PRN PRN PRN Reason: Flush Stop: 04/27/24 13:03 Last Admin: 05/02/23 14:30 Dose: 10 ml Sodium Chloride (Sodium Chloride 0.9 % 10 Ml Syringe) 0 ml IV-PUSH PRN PRN PRN Reason: Flush Stop: 04/27/24 15:23 Last Admin: 04/29/23 12:39 Dose: 10 ml Sodium Chloride (Sodium Chloride 0.9 % 10 Ml Syringe) 0 ml IV-PUSH PRN PRN PRN Reason: Flush Stop: 04/30/24 08:32 Sodium Chloride (Sodium Chloride 0.9 % 10 Ml Syringe) 0 ml IV-PUSH PRN PRN PRN Reason: Flush Stop: 04/30/24 10:46 Sodium Chloride (Sodium Chloride 0.9 % 10 Ml Syringe) 0 ml IV-PUSH PRN PRN PRN Reason: Flush Stop: 05/02/24 10:16 Allergies ciprofloxacin [From Cipro] Allergy (Verified 04/28/23 13:10) Hives latex Allergy (Verified 04/28/23 13:10) Hives Results Labs 05/02/23 05:40 05/03/23 05:40 Labs: 05/03/23 05:40 BUN 47 H Creatinine 5.78 H D Radiology Impressions Impressions - last 24 hours: Any impression(s) listed above is documentation that was entered by the reading physician into a diagnostic report(s) for Ruddy Palmer. I have reviewed the report(s) and am incorporating any findings in the treatment plan of this patient where applicable. A&P - Nephrology Assessment/Plan (1) ESRD (end stage renal disease): Plan: He has a ESRD after [facility]CK[facility] in setting of sepsis. He has been on dialysis for 2 years and currently goes to the [facility] twice a week on Monday schedule (2) Sepsis associated hypotension: Plan: He was presented with fever leukocytosis and hypertension. His blood culture positive for E. coli bacteremia on ertapenem for ESBL. Source could be prostatic based on the CT scan finding of prostatomegaly and bladder outlet obstruction. (3) Anemia of renal disease: Plan: Hemoglobin is below the goal. He receives Mircera with dialysis. (4) Secondary hyperparathyroidism: Plan: He has a secondary hyperparathyroidism and currently receives IV Hectorol with dialysis. Plan * Patient gets dialysis twice a week on Monday and Monday. No volume overload or hyperkalemia. Next hemodialysis will be on Monday if still in-house. * Continue ertapenem 0.5 g daily for ESBL bacteremia. CT scan of the abdomen showed prostatomegaly and PSA is elevated suggestive of prostatitis as a source of E. coli. ID recommend 3 to 4 weeks of antibiotics. * Continue darbepoetin tatianna 40 mcg weekly, ferric sodium gluconate 62.5 mg IV we ekly and paricalcitol 2 mcg with each hemodialysis * Continue oral Bumex as the patient has residual urine output and renal function * Monitor platelets closely and stop Eliquis if patient's platelet continue to drop Documented By: Jessica Macdonald MD 05/03/23 1149 Signed By: <Electronically signed by MD Jessica Macdonald> 05/03/23 115 [facility] Work Phone: 1(462) 491-106208-30-2023 Progress note Author Kostas Wade [facility] May 03, 2023 11:27am Note Date/Time May 03, 2023 11 :27am [facility] [address] [place] [address] Infect. Disease Progress Note Signed Patient: Ruddy Palmer MR#: [id number] : 1985 Acct:[id number] Age/Sex: 37 / M Adm Date: 3 Loc: Room: [address] [place] [address] Type: ADM IN Attending Dr: Bradford Henriquez MD Copies to: ~ Date of Service: 05/03/2023 Subjective Interval history: Patient is about the same as he has been. Again nonverbal eyes closed. Vital signs were stable overnight. Exam Physical Exam Vital Signs: Temp Pulse Resp BP Pulse Ox O2 Del Method O2 Flow Rate 98.8 F 99 H 20 126/76 93 L Nasal Cannula 5 05/03/23 08:00 05/03/23 08:45 05/03/23 08:45 05/03/23 08:00 05/03/23 08:00 05/03/23 08:00 05/03/23 08:00 Const General: combative and ill appearing HEENT Head: normal to inspection Neck Neck: normal visual inspection Chest Chest palpation & inspection: normal inspection of the chest Resp Effort & Inspection: normal respiratory effort and cough Cardio Palpation: normal PMI GI Inspection: normal to inspection Skin General: no rashes or lesions noted Objective Labs CBC/BMP: CBC, BMP 05/03/23 05:40 Sodium 130 L Potassium 3.6 Chloride 92 L Carbon Dioxide 30.3 Anion Gap 11.3 BUN 47 H Creatinine 5.78 H D Calcium 8.2 L Labs: 05/03/23 05:40 BUN 47 H Creatinine 5.78 H D Laboratory Results - last 24 hr 05/02/23 05/03/23 12:20 05:40 PHA Creatinine Clear 15.27 Sodium 130 L Potassium 3.6 Chloride 92 L Carbon Dioxide 30.3 Anion Gap 11.3 BUN 47 H Creatinine 5.78 H D Est GFR (CKD-EPI) 12.034 Glucose 90 Calcium 8.2 L Total PSA 14.530 H Microbiology Microbiology: Microbiology - Results from entire visit 05/01/23 09:23 Blood - Right Antecubital Blood Culture - Preliminary No Growth 2 Days 05/01/23 09:25 Blood - Right Hand Blood Culture - Preliminary No Growth 2 Days 04/30/23 05:50 Blood - Right Antecubital Blood Culture - Final Escherichia coli (ESBL) 04/30/23 05:50 Blood - Right Antecubital Bacterial ID (NA Multiplex Assay) - Final 04/28/23 14:23 Blood - Right Antecubital Blood Culture - Final Escherichia coli (ESBL) 04/28/23 13:23 Blood - Right Antecubital Blood Culture - Final Escherichia coli (ESBL) 04/28/23 13:23 Blood - Right Antecubital Bacterial ID (NA Multiplex Assay) - Final 05/01/23 16:32 Stool Stool Occult Blood (TRINA) - Final 04/29/23 17:00 Straight Catheter Urine Culture - Final Escherichia coli (ESBL) Allergies and Medications Allergies and Active Meds Allergies ciprofloxacin [From Cipro] Allergy (Verified 04/28/23 13:10) Hives latex Allergy (Verified 04/28/23 13:10) Hives Active Medications Acetaminophen (Acetaminophen 325 Mg Tablet) 650 mg PO Q6H PRN PRN Reason: Pain 1-5 or fever Stop: 04/27/24 17:45 Last Admin: 05/02/23 21:42 Dose: 650 mg Hydrocodone Bitart/Acetaminophen (Hydrocodone/Acetaminophen 5-325 Mg Tablet) 1 tab PO Q4H PRN PRN Reason: Pain Scale 4 - 6 Apixaban (Apixaban 2.5 Mg Tablet) 2.5 mg PO BID [facility] Stop: 04/27/24 20:59 Last Admin: 05/03/23 08:21 Dose: 2.5 mg Bumetanide (Bumetanide 2 Mg Tablet) 2 mg PO SuTuWeThSa@0900 [facility] Stop: 04/28/24 08:59 Last Admin: 05/03/23 08:21 Dose: 2 mg Clonazepam (Clonazepam 0.5 Mg Tablet) 0.5 mg PO TID [facility] Stop: 10/25/23 21:59 Last Admin: 05/03/23 08:21 Dose: 0.5 mg Diltiazem HCl (Diltiazem 30 Mg Tablet) 30 mg PO TID [facility] Stop: 04/27/24 21:59 Last Admin: 05/03/23 08:21 Dose: 30 mg Ferric Sodium Gluconate Complex (Sodium Ferric Gluconat/Sucrose 62.5 Mg/5 Ml Vial) 62.5 mg IV-PUSH WEEKLY [facility] Stop: 04/30/24 08:59 Last Admin: 05/01/23 12:07 Dose: 62.5 mg Sodium Chloride (0.9% Sodium Chloride 1,000 Ml) 1,000 mls @ 0 mls/hr MISCELLANE.Q0M PRN PRN Reason: Dialysis Stop: 04/27/24 15:23 Last Infusion: 05/01/23 12:09 Dose: Infused Ertapenem 0.5 gm/ Sodium (Chloride) 100 mls @ 200 mls/hr IV Q24H [facility] Stop: 04/29/24 11:29 Last Infusion: 05/02/23 15:00 Dose: Infused Sodium Chloride (0.9% Sodium Chloride 1,000 Ml) 1,000 mls @ 0 mls/hr MISCELLANE.Q0M PRN PRN Reason: Dialysis Stop: 04/30/24 08:32 Sodium Chloride (0.9% Sodium Chloride 1,000 Ml) 1,000 mls @ 0 mls/hr MISCELLANE.Q0M PRN PRN Reason: Dialysis Stop: 04/30/24 10:46 Ipratropium [place] (Ipratropium [place] 0.5 Mg/2.5 Ml Vial.Neb) 0.5 mg INHALATION QID [facility] Stop: 04/28/24 21:59 Last Admin: 05/03/23 08:44 Dose: 0.5 mg Levalbuterol HCl (Levalbuterol Hcl *Nf* 1.25 Mg/3 Ml Vial.Neb) 1.25 mg INHALATION QID [facility]; Protocol Stop: 04/28/24 21:59 Last Admin: 05/03/23 08:43 Dose: 1.25 mg Lidocaine/Prilocaine (Lidocaine-Prilocaine Cr 2.5-2.5% 5 Gm Tube) 1 applic TOPICAL ONCE PRN PRN Reason: Dialysis Stop: 04/27/24 17:44 Last Admin: 05/01/23 08:34 Dose: 1 applic Metoprolol Tartrate (Metoprolol Tartrate 25 Mg Tablet) 25 mg PO BID [facility] Stop: 04/27/24 20:59 Last Admin: 04/28/23 21:28 Dose: 25 mg Non-Formulary Medication (Dextromethorphan-Quinidine [Nuedexta]) 1 cap PO Q12H [facility] Stop: 04/27/24 17:44 Ondansetron HCl (Ondansetron 4 Mg/2 Ml Vial) 4 mg IV-PUSH Q6H PRN PRN Reason: Nausea And Vomiting Stop: 04/27/24 17:45 Pantoprazole Sodium (Pantoprazole 40 Mg Tablet.Dr) 40 mg PO DAILY [facility] Stop: 04/28/24 08:59 Last Admin: 05/03/23 08:21 Dose: 40 mg Paricalcitol (Paricalcitol 10 Mcg/2 Ml Vial) 2 mcg IV-PUSH MoFr@11 [facility] Stop: 04/30/24 10:59 Last Admin: 05/01/23 12:06 Dose: 2 mcg Potassium Chloride (Potassium Chloride Er 20 Meq Tab.Er.Prt) 40 meq PO DAILY PRN PRN Reason: Hypokalemia Stop: 04/27/24 17:45 Sildenafil Citrate (Sildenafil Citrate 20 Mg Tablet) 20 mg PO TID [facility] Stop: 04/27/24 21:59 Last Admin: 05/03/23 08:21 Dose: 20 mg Sodium Chloride (Sodium Chloride 0.9 % 10 Ml Syringe) 0 ml IV-PUSH PRN PRN PRN Reason: Flush Stop: 04/27/24 13:03 Last Admin: 05/02/23 14:30 Dose: 10 ml Sodium Chloride (Sodium Chloride 0.9 % 10 Ml Syringe) 0 ml IV-PUSH PRN PRN PRN Reason: Flush Stop: 04/27/24 15:23 Last Admin: 04/29/23 12:39 Dose: 10 ml Sodium Chloride (Sodium Chloride 0.9 % 10 Ml Syringe) 0 ml IV-PUSH PRN PRN PRN Reason: Flush Stop: 04/30/24 08:32 Sodium Chloride (Sodium Chloride 0.9 % 10 Ml Syringe) 0 ml IV-PUSH PRN PRN PRN Reason: Flush Stop: 04/30/24 10:46 Sodium Chloride (Sodium Chloride 0.9 % 10 Ml Syringe) 0 ml IV-PUSH PRN PRN PRN Reason: Flush Stop: 05/02/24 10:16 A&P - Infectious Disease Assessment/Plan (1) E coli bacteremia: Code(s): R78.81 - Bacteremia; B96.20 - Unspecified Escherichia coli [E. coli] as the cause of diseases classified elsewhere Status: Acute (2) ESRD (end stage renal disease): Code(s): N18.6 - End stage renal disease Status: Acute (3) Pneumonia: Code(s): J18.9 - Pneumonia, unspecified organism Status: Acute Plan Patient source of E. coli in his blood I feel is secondary to perhaps prostate source based on imaging findings. Once blood cultures clear for which they are negative now at 1 day will likely benefit from a couple weeks worth of IV antibiotics. Given the ESBL producing organism he has grown continuing ertapenem. PSA elevated 14.530. Given this we will treat for prostate a sourceof infection. Plan 3 to 4 weeks. PICC line can be placed Documented By: Kostas Wade MD 05/03/231123 Signed By: <Electronically signed by MD Kostas Wade> 05/03/23 [facility] Work Phone: 1(329) 265-267308-30-2023 Progress note Author Bradford Henriquez [facility] May 03, 2023 10:21am Note Date/Time May 03, 2023 10 :17am [facility] [address] [place] [address] Hospitalist Progress Note Signed Patient: Ruddy Palmer MR#: [id number] : 1985 Acct:[id number] Age/Sex: 37 / M Adm Date: 3 Loc: 3T Room: [address] [place] [address] Type: ADM IN Attending Dr: Bradford Henriquez MD Copies to: ~ Date of Service: 05/03/2023 Subjective Subjective Narrative: Assessment And Plan 37M with PMH of HTN, 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, Cerebral Palsy, Blindness, Hearing impairment, COPD, CRF (on Home O2), Pulmonary HTN, ESRD (on HD), PE (on Eliquis) who presented with Hypotension from dialysis center and admitted for the evaluation and treatment of suspected Bacterial Pneumonia vs UTI UTI ECOli ESBL E.Coli Bacteremia Seen and examined Clinically better No fever BLood cultures Blood Culture Preliminary 05/01/23-311 Gram Stain Gram Negative Bacilli Organism 1 Escherichia coli (ESBL) Urine culture Urine Culture Final 05/01/23-47 Organism 1 Escherichia coli (ESBL) [place] Count >100,000 CFU/ml Repeat blood cultures is negative so far PICC line placement Plan to dc with 2 weeks Invanz ID is following Bacterial pneumonia - ruled out No fever Blood cultures grew ECOLI Urine culture grew ECOLI On Invanz daily Repeat blood cultures are negative so far ESRD Nephrology was consulted for the management of dialysis and ESRD complication recommendation appreciated Plan to dc on IV Invanz daily for [address] PICC line Subjective: He is not verbal Not on acute distress No fever Exam Physical Exam Vital Signs: Temp Pulse Resp BP Pulse Ox O2 Del Method O2 Flow Rate 98.8 F 99 H 20 126/76 93 L Nasal Cannula 5 05/03/23 08:00 05/03/23 08:45 05/03/23 08:45 05/03/23 08:00 05/03/23 08:00 05/03/23 08:00 05/03/23 08:00 Narrative: General:alert and awake non verbal not on acute distress HEENT: PERRLA, oral mucosa moist Neck: Supple no JVD no carotid bruit CVS S1-S2 regular rate and rhythm no murmur no gallop Chest clear to auscultation percussion no wheezing no crackles Abdomen: Soft bowel sounds normoactive no rebound no guarding Extremities no edema no clubbing Neurologic non verbal Skin exam: Normal no skin rash or lesions Musculoskeletal exam normal no joint effusion no movement limited no redness or swelling Objective Lab Results 05/02/23 05:40 05/03/23 05:40 Microbiology Results Microbiology 05/01/23 09:23 Blood - Right Antecubital Blood Culture - Preliminary No Growth 2 Days 05/01/23 09:25 Blood - Right Hand Blood Culture - Preliminary No Growth 2 Days 04/30/23 05:50 Blood - Right Antecubital Blood Culture - Final Escherichia coli (ESBL) 04/30/23 05:50 Blood - Right Antecubital Bacterial ID (NA Multiplex Assay) - Final 04/28/23 14:23 Blood - Right Antecubital Blood Culture - Final Escherichia coli (ESBL) 04/28/23 13:23 Blood - Right Antecubital Blood Culture - Final Escherichia coli (ESBL) 04/28/23 13:23 Blood - Right Antecubital Bacterial ID (NA Multiplex Assay) - Final Meds Allergies and Active Meds Allergies ciprofloxacin [From Cipro] Allergy (Verified 04/28/23 13:10) Hives latex Allergy (Verified 04/28/23 13:10) Hives Active Meds: Active Medications Generic Name Dose Route Start Last Admin Trade Name Jaradq PRN Reason Stop Dose Admin Acetaminophen 650 mg 04/28/23 17:46 05/02/23 21:42 Acetaminophen 325 Mg Tablet PO 04/27/24 17:45 650 mg Q6H PRN Administration Pain 1-5 or fever Hydrocodone Bitart/Acetaminophen 1 tab 04/28/23 17:46 Hydrocodone/Acetaminophen 5-325 Mg Tablet PO Q4H PRN Pain Scale 4 - 6 Apixaban 2.5 mg 04/28/23 21:00 05/03/23 08:21 Apixaban 2.5 Mg Tablet PO 04/27/24 20:59 2.5 mg BID [facility] Administration Bumetanide 2 mg 04/29/23 09:00 05/03/23 08:21 Bumetanide 2 Mg Tablet PO 08/25/24 08:59 2 mg [id number]@0900 [facility] Administration Clonazepam 0.5 mg 04/28/23 22:00 05/03/23 08:21 Clonazepam 0.5 Mg Tablet PO 10/25/23 21:59 0.5 mg TID [facility] Administration Diltiazem HCl 30 mg 04/28/23 22:00 05/03/23 08:21 Diltiazem 30 Mg Tablet PO 04/27/24 21:59 30 mg TID [facility] Administration Ferric Sodium Gluconate Complex 62.5 mg 05/01/23 09:00 05/01/23 12:07 Sodium Ferric Gluconat/Sucrose 62.5 Mg/5 Ml Vial IV-PUSH 04/30/24 08:59 62.5 mg WEEKLY [facility] Administration Sodium Chloride 1,000 mls @ 0 mls/hr 04/28/23 15:24 05/01/23 12:09 0.9% Sodium Chloride 1,000 Ml MISCELLANE 04/27/24 15:23 Infused .Q0M PRN Infusion Dialysis As Directed Ertapenem 0.5 gm/ Sodium 100 mls @ 200 mls/hr 04/30/23 11:30 05/02/23 15:00 Chloride IV 04/29/24 11:29 Infused Q24H [facility] Infusion Sodium Chloride 1,000 mls @ 0 mls/hr 05/01/23 08:33 0.9% Sodium Chloride 1,000 Ml MISCELLANE 04/30/24 08:32 .Q0M PRN Dialysis As Directed Sodium Chloride 1,000 mls @ 0 mls/hr 05/01/23 10:47 0.9% Sodium Chloride 1,000 Ml MISCELLANE 04/30/24 10:46 .Q0M PRN Dialysis As Directed Ipratropium [place] 0.5 mg 04/29/23 22:00 05/03/23 08:44 Ipratropium [place] 0.5 Mg/2.5 Ml Vial.Neb INHALATION 04/28/24 21:59 0.5 mg QID [facility] Administration Levalbuterol HCl 1.25 mg 04/29/23 22:00 05/03/23 08:43 Levalbuterol Hcl *Nf* 1.25 Mg/3 Ml Vial.Neb INHALATION 04/28/24 21:59 1.25 mg QID [facility] Administration Protocol Lidocaine/Prilocaine 1 applic 04/28/23 17:45 05/01/23 08:34 Lidocaine-Prilocaine Cr 2.5-2.5% 5 Gm Tube TOPICAL 04/27/24 17:44 1 applic ONCE PRN Administration Dialysis Metoprolol Tartrate 25 mg 04/28/23 21:00 04/28/23 21:28 Metoprolol Tartrate 25 Mg Tablet PO 04/27/24 20:59 25 mg BID [facility] Administration Non-Formulary Medication 1 cap 04/28/23 17:45 Dextromethorphan-Quinidine [Nuedexta] PO 04/27/24 17:44 Q12H [facility] Ondansetron HCl 4 mg 04/28/23 17:46 Ondansetron 4 Mg/2 Ml Vial IV-PUSH 04/27/24 17:45 Q6H PRN Nausea And Vomiting Pantoprazole Sodium 40 mg 04/29/23 09:00 05/03/23 08:21 Pantoprazole 40 Mg Tablet.Dr PO 04/28/24 08:59 40 mg DAILY [facility] Administration Paricalcitol 2 mcg 05/01/23 11:00 05/01/23 12:06 Paricalcitol 10 Mcg/2 Ml Vial IV-PUSH 04/30/24 10:59 2 mcg MoFr@11 [facility] Administration Potassium Chloride 40 meq 04/28/23 17:46 Potassium Chloride Er 20 Meq Tab.Er.Prt PO 04/27/24 17:45 DAILY PRN Hypokalemia Sildenafil Citrate 20 mg 04/28/23 22:00 05/03/23 08:21 Sildenafil Citrate 20 Mg Tablet PO 04/27/24 21:59 20 mg TID [facility] Administration Sodium Chloride 0 ml 04/28/23 13:04 05/02/23 14:30 Sodium Chloride 0.9 % 10 Ml Syringe IV-PUSH 04/27/24 13:03 10 ml PRN PRN Administration Flush Sodium Chloride 0 ml 04/28/23 15:24 04/29/23 12:39 Sodium Chloride 0.9 % 10 Ml Syringe IV-PUSH 04/27/24 15:23 10 ml PRN PRN Administration Flush Sodium Chloride 0 ml 05/01/23 08:33 Sodium Chloride 0.9 % 10 Ml Syringe IV-PUSH 04/30/24 08:32 PRN PRN Flush Sodium Chloride 0 ml 05/01/23 10:47 Sodium Chloride 0.9 % 10 Ml Syringe IV-PUSH 04/30/24 10:46 PRN PRN Flush Documented By: Bradford Henriquez MD 05/03/23 1016 Signed By: <Electronically signed by Bradford Henriquez MD> 05/03/23 1021 [facility] Work Phone: 1(855) 134-537408-29-2023 Progress note Author Van Bernardo [facility] May 02, 2023 2:36pm Note Date/Time May 02, 2023 2: 29pm [facility] [address] [place], [place] [id number] Palliative Care Progress Note Signed Patient: Ruddy Palmer MR#: [id number] : 1985 Acct:[id number] Age/Sex: 37 / M Adm Date: 3 Loc: Room: [address] [place] [address] Type: ADM IN Attending Dr: Bradford Henriquez MD Copies to: ~ Date of Service: 05/02/2023 Subjective Subjective HPI: This is a 37-year-old male with past medical history significant for cerebral palsy, hypertension, blindness, hearing impairment, COPD, pulmonary pretension, end- stage renal disease on hemodialysis twice weekly x2 years, pulmonary embolism on Eliquis. He was sent to the ER from his dialysis unit?[facility] in [place] because he was febrile and hypotensive. Patient did have mild lactic acidosis and was given IV fluids in the ED. Chest x-ray showed left basilar parenchymal densities and blood cultures were taken. Blood cultures do show ESBL. Respiratory panel was negative. Patient was started on IV antibiotics. Infectious disease and nephrology consulted. Today is hospitalization day #3. Patient is nonverbal and does not follow commands. Palliative medicine was consulted to help with goals of care and with advance care planning. Patient seen and evaluated at the dialysis unit on the fourth floor. He appearsto be comfortable, but chronically ill. He does not answer any questions or follow any commands. He does not open his eyes. Dialysis staff say that he didgive them his arm and was able to get through dialysis without a problem today. Patient appears to be well kept and well groomed. His CODE STATUS currently is DNR CCA without intubation, confirmed by family on admission. Patient's caregiver is at bedside in his hospital room?Laurie. She tells me that patient does have legal guardian in place?his mom, Fabby, and his stepdad, Ernesto, are his legal guardians. I called his mom, Fabby, and had a 35-minute discussion on the phone about goals of care and advance care planning. She tells me that Ruddy was a premature baby at , born at 29 weeks gestational age. He was 2 pounds and 10 ounces at and was on the ventilator machine for 5 months with severe respiratory failure. She tells me he was blind at , and also blind because he needed high levels of O2 to survive. Also he has had hearing impairment that been severe since he was born. She tells me that she had abruptio placenta when she was with him, andthat prompted the early delivery. She says that Ruddy was in the ICU for 6-1/2 months before he was brought home. She tells me that Ruddy has had a cognitive level of a 12-month to [id number] at baseline. She tells me that Ruddy has not been able to talk, but has been able to follow commands. He is dependent on ADLs?including toileting, bathing, dressing, feeding. But he does get up and walk at home spontaneously, and is even able to follow some commands and goes to the restroom when she asks him to. Over the past 5 years Fabby says that Ruddy has had numerous hospitalizations. His last hospitalization was in 2020, and he was sick with sepsis and renal failure. He does have history ofsolitary kidney. He has been on dialysis since 2020. Mom says he does still produce quite a bit of urine. He is only on dialysis twice weekly. She says she does feed Ruddy all meals, he is unable to chew food and is on a pur?ed diet. Had a long talk with Fabby, Ruddy's mother, on the phone. She understands that Ruddy is sick with positive blood cultures and is having further evaluation?including CT scan of abdomen pelvis to rule out other sources of infection. We did discuss how Ruddy will likely need IV antibiotics for some time depending on the work-up for the source of infection. She prefers he discharged to home instead of retirement facility when he is ready for discharge. She says she has plenty of help with caregivers. She says the caregivers help when she is working, and then when she is off work she is Ruddy'sprimary caregiver. She thinks Ruddy would be much more comfortable at home rather than retirement facility for rehab and IV antibiotics. We did talk about quality life and when Ruddy might want to discontinue dialysis in the future. For now, she thinks Ruddy has had a decent quality life at home. But Fabby did tell me that his quality life has been slowly declining recently. She says she would have a tough time deciding to stop hemodialysis in the futurebecause she would feel like she would be responsible for Ruddy's . We did have a talk about this on the phone. Fabby did confirm CODE STATUS of DNR CCA without intubation. She does not think Ruddy would want CPR if his heart were tostop and she does not think he would want to be on a ventilator machine in the future. Fabby says she will be in to visit him later this evening, we will attempt to talk later. Fabby was thankful for the conversation. Will follow up tomorrow. Please call if questions. 05/02 Patient seen and evaluated. He does seem to be more responsive today, but does not follow commands for me. He opens his eyes more. His corneas appear to be white. He continues on IV antibiotics, will receive dialysis tomorrow. Repeat blood cultures show no growth thus far. CT scan showed possible prostatitis/bladder wall thickening as etiology for infection. His caregiver, Laurie,is at bedside. I called his coguardian, his stepdad, Ernesto. I reviewed Ruddy's current condition and answered questions. Ernesto did again say that they do not just want to keep Ruddy alive on machines, but want to ensure he has some quality life. They tell me that Ruddy has been able to walk around the home, sometimes follow commands, and they think Ruddy would be good with this level of functioning. This is how he has been functioning his whole life. But if he canno longer achieve this level of activity, they tell me that they do not just want to keep him alive on machines. We did talk about how they do not necessarily need to take him to the hospital in the future if he worsens or has more problems. We did talk about what focusing on comfort care might look like in the future?including hospice. We also talked about at what point they might be ready to discontinue hemodialysis in the future as well. Ernesto was thankful for the call. Exam Physical Exam Vital Signs: Temp Pulse Resp BP Pulse Ox O2 Del Method O2 Flow Rate 98.6 F 110 H 18 126/72 95 Nasal Cannula 4 05/02/23 12:45 05/02/23 12:45 05/02/23 12:45 05/02/23 12:45 05/02/23 12:45 05/02/23 12:45 05/02/23 12:45 Const General: comfortable, no acute distress, frail appearing and ill appearing chronically Orientation: not alert, not awake and obtunded HEENT Head: normal to inspection, normocephalic and atraumatic Nose: external nose normal Eyes Eyelids: eyelids normal Neck Neck: supple Lymphatic: no lymphadenopathy noted Resp Auscultation: clear to auscultation bilaterally, diminished lung sounds bilaterally, no rales, no rhonchi and no wheezes Cardio Rate: regular rate Rhythm: regular rhythm GI Palpation: soft, no guarding, no masses and nontender Neuro General: not alert and not awake Extrem General: no edema Objective Labs 05/02/23 05:40 05/02/23 05:40 Labs: Laboratory Results - last 24 hr 05/02/23 05/02/23 05:40 05:40 Corrected WBC 11.0 H Uncorrected WBC Count 11.0 H RBC 2.73 L Hgb 8.2 L Hct 25.4 L MCV 92.9 MCH 29.8 MCHC 32.1 L RDW 14.3 Plt Count 66 L MPV 9.7 Neut % (Auto) 73.5 Lymph % (Auto) 8.8 [place] % (Auto) 11.5 Eos % (Auto) 6.0 Baso % (Auto) 0.2 Nucleat RBC Rel Count 0.1 Neut # (Auto) 8.1 H Lymph # (Auto) 1.0 [place] # (Auto) 1.3 H Eos # (Auto) 0.7 H Baso # (Auto) 0.0 Platelet Estimate Decreased Large Platelets Slight Plt Morphology Comment N/A RBC Morphology N/A Polychromasia Slight Hypochromasia Slight Poikilocytosis Slight Anisocytosis Slight Tear Drop Cells Slight Stomatocytes Moderate PHA Creatinine Clear 21.34 Sodium 133 L Potassium 3.8 Chloride 95 L Carbon Dioxide 30.1 Anion Gap 11.7 BUN 34 H Creatinine 4.05 H D Est GFR (CKD-EPI) 18.441 Glucose 93 Calcium 8.2 L Microbiology Microbiology: Microbiology 04/30/23 05:50 Blood - Right Antecubital Blood Culture - Preliminary Escherichia coli 04/30/23 05:50 Blood - Right Antecubital Bacterial ID (NA Multiplex Assay) - Final 05/01/23 09:25 Blood - Right Hand Blood Culture - Preliminary No Growth 1 Day 05/01/23 09:23 Blood - Right Antecubital Blood Culture - Preliminary No Growth 1 Day 04/28/23 14:23 Blood - Right Antecubital Blood Culture - Final Escherichia coli (ESBL) 04/28/23 13:23 Blood - Right Antecubital Blood Culture - Final Escherichia coli (ESBL) 04/28/23 13:23 Blood - Right Antecubital Bacterial ID (NA Multiplex Assay) - Final 05/01/23 16:32 Stool Stool Occult Blood (TRINA) - Final Assessment/Plan Assessment/Plan (1) ESRD (end stage renal disease): Code(s): N18.6 - End stage renal disease (2) E coli bacteremia: Code(s): R78.81 - Bacteremia; B96.20 - Unspecified Escherichia coli [E. coli] as the cause of diseases classified elsewhere (3) Cerebral palsy: Code(s): G80.9 - Cerebral palsy, unspecified (4) Counseling regarding advanced care planning and goals of care: Code(s): Z71.89 - Other specified counseling Plan 05/02 Patient seen and evaluated. He does seem to be more responsive today, but does not follow commands for me. He opens his eyes more. His corneas appear to be white. He continues on IV antibiotics, will receive dialysis tomorrow. Repeat blood cultures show no growth thus far. CT scan showed possible prostatitis/bladder wall thickening as etiology for infection. His caregiver, Laurie, is at bedside. I called his coguardian, his stepdad, Ernesto. I reviewed Ruddy's current condition and answered questions. Ernesto did again say that they do not just want to keep Ruddy alive on machines, but want to ensure he has some quality life. They tell me that Ruddy has been able to walk around the home, sometimes follow commands, and they think Ruddy would be good with this level of functioning. This is how he has been functioning his whole life. But if he canno longer achieve this level of activity, they tell me that they do not just want to keep him alive on machines. We did talk about how they do not necessarily need to take him to the hospital in the future if he worsens or has more problems. We did talk about what focusing on comfort care might look like in the future?including hospice. We also talked about at what point they might be ready to discontinue hemodialysis in the future as well. Ernesto was thankful for the call. Documented By: Van Bernardo DO 05/02/23 1 427 Signed By: <Electronically signed by DO Van Bernardo> 05/02/23 1436 [facility] Work Phone: 1(809) 464-476408-29-2023 Progress note Author Jessica Macdonald [facility] May 02, 2023 2:01pm Note Date/Time May 02, 2023 2: 01pm [facility] [address] [place] [address] Nephrology Progress Note Signed Patient: Ruddy Palmer MR#: [id number] : 1985 Acct:[id number] Age/Sex: 37 / M Adm Date: 3 Loc: Room: [address] [place] [address] Type: ADM IN Attending Dr: Bradford Henriquez MD Copies to: ~ Date of Service: 05/02/2023 Subjective Subjective Narrative: This is a 37-year-old male with a medical history of hypertension, cerebral palsy, COPD, pulm hypertension , ESRD, PE on Apixaban, anemia of renal disease and secondary hyperparathyroidism was brought into the emergency room for fever and hypotension. He does not communicate and most of the history was taken frompatient's chart and the patient's mother. His mother stated that patient started running fever 2 days prior to admission and had a fever of 102. He started having mild cough. He went for a his dialysis and was noticed to have a hypotension so he was sent to the emergency room for evaluation. Mother reported patient has a ESRD for 2 years after he had a septic shock and required dialysis. She reported that he was seen by the milk driver many years ago whenhe was found to have a solitary kidney. Patient currently goes to the [facility] twice a week Monday and Monday schedule. He currently has AV fistula asa dialysis access. Mother reported that patient still makes urine but he he is incontinent. Nephrology is consulted for ESRD management during the hospital stay. Interval history Patient is being seen and examined in his bed. He is awake however he does not communicate. Mother in the room. Patient has no fever or chills. Blood pressure stable 126/72. He still on ertapenem for ESBL E. coli. CT scan showed large prostate which could be possibly the source. PSA is pending. No shortness of breath. No edema Exam Physical Exam Vital Signs: Temp Pulse Resp BP Pulse Ox O2 Del Method O2 Flow Rate 37.0 C 110 H 18 126/72 95 Nasal Cannula 4 05/02/23 12:45 05/02/23 12:45 05/02/23 12:45 05/02/23 12:45 05/02/23 12:45 05/02/23 12:45 05/02/23 12:45 Narrative: General: Awake, nonverbal on dialysis HEENT: Atraumatic, normal cephalic. He has mild pallor with no jaundice or cyanosis. Neck: Supple no JVD no carotid bruit CVS S1-S2: regular rate and rhythm no murmur no gallop Chest clear to auscultation percussion no wheezing no crackles Abdomen: Soft bowel sounds normoactive no rebound no guarding Extremities no edema no clubbing Neurologic non verbal Skin exam: Normal no skin rash or lesions Musculoskeletal exam normal no joint effusion no movement limited no redness or swelling Vascular access: Left arm AV fistula with good thrill. No evidence of infection. Objective Intake and Output I&O: Intake & Output 04/29/23 04/30/23 05/01/23 05/02/23 23:59 23:59 23:59 23:59 Intake Total 1060 / 1060 340 / 340 1350 / 1350 700 / 700 Output Total 500 / 500 1500 / 1500 Balance 560 / 560 340 / 340 -150 / -150 700 / 700 Weight 63.4 kg 62.7 kg 61.1 kg 61 kg Meds and Allergies Meds: Active Medications Acetaminophen (Acetaminophen 325 Mg Tablet) 650 mg PO Q6H PRN PRN Reason: Pain 1-5 or fever Stop: 04/27/24 17:45 Last Admin: 04/30/23 09:26 Dose: 650 mg Hydrocodone Bitart/Acetaminophen (Hydrocodone/Acetaminophen 5-325 Mg Tablet) 1 tab PO Q4H PRN PRN Reason: Pain Scale 4 - 6 Apixaban (Apixaban 2.5 Mg Tablet) 2.5 mg PO BID [facility] Stop: 04/27/24 20:59 Last Admin: 05/02/23 12:43 Dose: 2.5 mg Bumetanide (Bumetanide 2 Mg Tablet) 2 mg PO SuTuWeThSa@0900 [facility] Stop: 04/28/24 08:59 Last Admin: 05/02/23 09:11 Dose: 2 mg Clonazepam (Clonazepam 0.5 Mg Tablet) 0.5 mg PO TID [facility] Stop: 10/25/23 21:59 Last Admin: 05/02/23 09:11 Dose: 0.5 mg Diltiazem HCl (Diltiazem 30 Mg Tablet) 30 mg PO TID [facility] Stop: 04/27/24 21:59 Last Admin: 05/02/23 09:11 Dose: 30 mg Ferric Sodium Gluconate Complex (Sodium Ferric Gluconat/Sucrose 62.5 Mg/5 Ml Vial) 62.5 mg IV-PUSH WEEKLY [facility] Stop: 04/30/24 08:59 Last Admin: 05/01/23 12:07 Dose: 62.5 mg Sodium Chloride (0.9% Sodium Chloride 1,000 Ml) 1,000 mls @ 0 mls/hr MISCELLANE.Q0M PRN PRN Reason: Dialysis Stop: 04/27/24 15:23 Last Infusion: 05/01/23 12:09 Dose: Infused Ertapenem 0.5 gm/ Sodium (Chloride) 100 mls @ 200 mls/hr IV Q24H [facility] Stop: 04/29/24 11:29 Last Infusion: 05/01/23 16:30 Dose: Infused Sodium Chloride (0.9% Sodium Chloride 1,000 Ml) 1,000 mls @ 0 mls/hr MISCELLANE.Q0M PRN PRN Reason: Dialysis Stop: 04/30/24 08:32 Sodium Chloride (0.9% Sodium Chloride 1,000 Ml) 1,000 mls @ 0 mls/hr MISCELLANE.Q0M PRN PRN Reason: Dialysis Stop: 04/30/24 10:46 Ipratropium [place] (Ipratropium [place] 0.5 Mg/2.5 Ml Vial.Kelsey) 0.5 mg INHALATION QID [facility] Stop: 04/28/24 21:59 Last Admin: 05/02/23 12:13 Dose: 0.5 mg Levalbuterol HCl (Levalbuterol Hcl *Nf* 1.25 Mg/3 Ml Vial.Kelsey) 1.25 mg INHALATION QID [facility]; Protocol Stop: 04/28/24 21:59 Last Admin: 05/02/23 12:13 Dose: 1.25 mg Lidocaine/Prilocaine (Lidocaine-Prilocaine Cr 2.5-2.5% 5 Gm Tube) 1 applic TOPICAL ONCE PRN PRN Reason: Dialysis Stop: 04/27/24 17:44 Last Admin: 05/01/23 08:34 Dose: 1 applic Metoprolol Tartrate (Metoprolol Tartrate 25 Mg Tablet) 25 mg PO BID [facility] Stop: 04/27/24 20:59 Last Admin: 04/28/23 21:28 Dose: 25 mg Non-Formulary Medication (Dextromethorphan-Quinidine [Nuedexta]) 1 cap PO Q12H [facility] Stop: 04/27/24 17:44 Ondansetron HCl (Ondansetron 4 Mg/2 Ml Vial) 4 mg IV-PUSH Q6H PRN PRN Reason: Nausea And Vomiting Stop: 04/27/24 17:45 Pantoprazole Sodium (Pantoprazole 40 Mg Tablet.) 40 mg PO DAILY [facility] Stop: 04/28/24 08:59 Last Admin: 05/02/23 09:11 Dose: 40 mg Paricalcitol (Paricalcitol 10 Mcg/2 Ml Vial) 2 mcg IV-PUSH MoFr@11 [facility] Stop: 04/30/24 10:59 Last Admin: 05/01/23 12:06 Dose: 2 mcg Potassium Chloride (Potassium Chloride Er 20 Meq Tab.Er.Prt) 40 meq PO DAILY PRN PRN Reason: Hypokalemia Stop: 04/27/24 17:45 Sildenafil Citrate (Sildenafil Citrate 20 Mg Tablet) 20 mg PO TID [facility] Stop: 04/27/24 21:59 Last Admin: 05/02/23 09:11 Dose: 20 mg Sodium Chloride (Sodium Chloride 0.9 % 10 Ml Syringe) 0 ml IV-PUSH PRN PRN PRN Reason: Flush Stop: 04/27/24 13:03 Last Admin: 05/01/23 15:54 Dose: 10 ml Sodium Chloride (Sodium Chloride 0.9 % 10 Ml Syringe) 0 ml IV-PUSH PRN PRN PRN Reason: Flush Stop: 04/27/24 15:23 Last Admin: 04/29/23 12:39 Dose: 10 ml Sodium Chloride (Sodium Chloride 0.9 % 10 Ml Syringe) 0 ml IV-PUSH PRN PRN PRN Reason: Flush Stop: 04/30/24 08:32 Sodium Chloride (Sodium Chloride 0.9 % 10 Ml Syringe) 0 ml IV-PUSH PRN PRN PRN Reason: Flush Stop: 04/30/24 10:46 Allergies ciprofloxacin [From Cipro] Allergy (Verified 04/28/23 13:10) Hives latex Allergy (Verified 04/28/23 13:10) Hives Results Labs 05/02/23 05:40 05/02/23 05:40 Labs: 05/02/23 05:40 BUN 34 H Creatinine 4.05 H D Radiology Impressions Impressions - last 24 hours: Impressions Abdomen/Pelvis CT 05/01/23 11:57 IMPRESSION: 1. No acute findings. 2. Cholelithiasis. 3. Thickening of the esophagus to the GE junction. Finding May relate to esophagitis. Correlation endoscopy is recommended as underlying malignancy cannot BE excluded. 4. Prostatomegaly with urinary bladder wall thickening suggestive of bladder outlet obstruction. Impression dictated by: Maurilio Art Jr., D.OIsidra05/01/2023 3:38 PM Dictation Location: [place] [address] Any impression(s) listed above is documentation that was entered by the reading physician into a diagnostic report(s) for Ruddy Palmer. I have reviewed the report(s) and am incorporating any findings in the treatment plan of this patient where applicable. A&P - Nephrology Assessment/Plan (1) ESRD (end stage renal disease): Plan: He has a ESRD after [facility]EN[facility] in setting of sepsis. He has been on dialysis for 2 years and currently goes to the [facility] twice a week on Monday schedule (2) Sepsis associated hypotension: Plan: He was presented with fever leukocytosis and hypertension. His blood culture positive for E. coli bacteremia on ertapenem for ESBL. Source could be prostatic based on the CT scan finding of prostatomegaly and bladder outlet obstruction. (3) Anemia of renal disease: Plan: Hemoglobin is below the goal. He receives Mircera with dialysis. (4) Secondary hyperparathyroidism: Plan: He has a secondary hyperparathyroidism and currently receives IV Hectorol with dialysis. Plan * Patient had full hemodialysis yesterday. No volume overload, hyperkalemia or acidosis. Monitor daily intake and output and renal panel and plan for dialysis tomorrow * Continue ertapenem 0.5 g daily for ESBL bacteremia. ID was consulted and CT scan showed prostatomegaly with bladder neck obstruction possibly contributing to UTI. BC is pending. * Patient still makes urine as per the mother. Continue Bumex on nondialysis day. * Continue darbepoetin tatianna 40 mcg weekly, ferric sodium gluconate 62.5 mg IV weekly and paricalcitol 2 mcg with each hemodialysis * Monitor platelets closely and stop Eliquis if patient's platelet continue to drop Considering his mental status and multiple comorbidities, he was evaluated by palliative care and condition discussed with his family. Patient is currently DNR CCA without intubation however family would continue dialysis. Patient is able to help himself at home Documented By: Jessica Macdonald MD 05/02/23 8545 Signed By: <Electronically signed by MD Jessica Macdonald> 05/02/23 1409 [facility] Work Phone: 1(670) 380-330308-29-2023 Progress note Author Bradford Henriquez [facility] May 02, 2023 11:44am Note Date/Time May 02, 2023 11 :42am [facility] [address] [place] [address] Hospitalist Progress Note Signed Patient: Ruddy Palmer MR#: [id number] : 1985 Acct:[id number] Age/Sex: 37 / M Adm Date: 3 Loc: 3T Room: [address] [place] [address] Type: ADM IN Attending Dr: Bradford Henriquez MD Copies to: ~ Date of Service: 05/02/2023 Subjective Subjective Narrative: Assessment And Plan 37M with PMH of HTN, 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, Cerebral Palsy, Blindness, Hearing impairment, COPD, CRF (on Home O2), Pulmonary HTN, ESRD (on HD), PE (on Eliquis) who presented with Hypotension from dialysis center and admitted for the evaluation and treatment of suspected Bacterial Pneumonia vs UTI UTI ECOli ESBL E.Coli Bacteremia Seen and examined Clinically better No fever BLood cultures Blood Culture Preliminary 05/01/23-311 Gram Stain Gram Negative Bacilli Organism 1 Escherichia coli (ESBL) Urine culture Urine Culture Final 05/01/23-846 Organism 1 Escherichia coli (ESBL) [place] Count >100,000 CFU/ml Repeat blood cultures is negative so far Discussed with ID Plan for PICC line tomorrow Plan for 2 weeks ATB C/w Invanz IV Bacterial pneumonia - ruled out No fever CBC is trending down Blood cultures grew ECOLI Urine culture grew ECOLI On Invanz daily ESRD Nephrology was consulted for the management of dialysis and ESRD complication recommendation appreciated Subjective: He is not verbal Not on acute distress No fever Chronic diseases:?Unless mentioned Above, Essential home medications have been continued.? DVT Px:?Addressed Disposition:?To be determined Plan of care Discussed with:?the medical team, the patient mother Exam Physical Exam Vital Signs: Temp Pulse Resp BP Pulse Ox O2 Del Method O2 Flow Rate 98.2 F 122 H 18 117/63 93 L Nasal Cannula 4 05/02/23 09:00 05/02/23 09:00 05/02/23 09:00 05/02/23 09:00 05/02/23 09:00 05/02/23 09:00 05/02/23 09:00 Narrative: General:alert and awake non verbal not on acute distress HEENT: PERRLA, oral mucosa moist Neck: Supple no JVD no carotid bruit CVS S1-S2 regular rate and rhythm no murmur no gallop Chest clear to auscultation percussion no wheezing no crackles Abdomen: Soft bowel sounds normoactive no rebound no guarding Extremities no edema no clubbing Neurologic non verbal Skin exam: Normal no skin rash or lesions Musculoskeletal exam normal no joint effusion no movement limited no redness or swelling Objective Lab Results 05/02/23 05:40 05/02/23 05:40 Microbiology Results Microbiology 05/01/23 09:25 Blood - Right Hand Blood Culture - Preliminary No Growth 1 Day 05/01/23 09:23 Blood - Right Antecubital Blood Culture - Preliminary No Growth 1 Day 04/28/23 14:23 Blood - Right Antecubital Blood Culture - Final Escherichia coli (ESBL) 04/28/23 13:23 Blood - Right Antecubital Blood Culture - Final Escherichia coli (ESBL) 04/28/23 13:23 Blood - Right Antecubital Bacterial ID (NA Multiplex Assay) - Final 04/30/23 05:50 Blood - Right Antecubital Blood Culture - Preliminary Escherichia coli 04/30/23 05:50 Blood - Right Antecubital Bacterial ID (NA Multiplex Assay) - Final 05/01/23 16:32 Stool Stool Occult Blood (TRINA) - Final 04/29/23 17:00 Straight Catheter Urine Culture - Final Escherichia coli (ESBL) Meds Allergies and Active Meds Allergies ciprofloxacin [From Cipro] Allergy (Verified 04/28/23 13:10) Hives latex Allergy (Verified 04/28/23 13:10) Hives Active Meds: Active Medications Generic Name Dose Route Start Last Admin Trade Name Freq PRN Reason Stop Dose Admin Acetaminophen 650 mg 04/28/23 17:46 04/30/23 09:26 Acetaminophen 325 Mg Tablet PO 04/27/24 17:45 650 mg Q6H PRN Administration Pain 1-5 or fever Hydrocodone Bitart/Acetaminophen 1 tab 04/28/23 17:46 Hydrocodone/Acetaminophen 5-325 Mg Tablet PO Q4H PRN Pain Scale 4 - 6 Apixaban 2.5 mg 04/28/23 21:00 05/01/23 21:46 Apixaban 2.5 Mg Tablet PO 04/27/24 20:59 2.5 mg BID PENNY Administration Bumetanide 2 mg 04/29/23 09:00 05/02/23 09:11 Bumetanide 2 Mg Tablet PO 04/28/24 08:59 2 mg SuTuWeThSa@0900 PENNY Administration Clonazepam 0.5 mg 04/28/23 22:00 05/02/23 09:11 Clonazepam 0.5 Mg Tablet PO 10/25/23 21:59 0.5 mg TID PENNY Administration Diltiazem HCl 30 mg 04/28/23 22:00 05/02/23 09:11 Diltiazem 30 Mg Tablet PO 04/27/24 21:59 30 mg TID PENNY Administration Ferric Sodium Gluconate Complex 62.5 mg 05/01/23 09:00 05/01/23 12:07 Sodium Ferric Gluconat/Sucrose 62.5 Mg/5 Ml Vial IV-PUSH 04/30/24 08:59 62.5 mg WEEKLY PENNY Administration Sodium Chloride 1,000 mls @ 0 mls/hr 04/28/23 15:24 05/01/23 12:09 0.9% Sodium Chloride 1,000 Ml MISCELLANE 04/27/24 15:23 Infused .Q0M PRN Infusion Dialysis As Directed Ertapenem 0.5 gm/ Sodium 100 mls @ 200 mls/hr 04/30/23 11:30 05/01/23 16:30 Chloride IV 04/29/24 11:29 Infused Q24H PENNY Infusion Sodium Chloride 1,000 mls @ 0 mls/hr 05/01/23 08:33 0.9% Sodium Chloride 1,000 Ml MISCELLANE 04/30/24 08:32 .Q0M PRN Dialysis As Directed Sodium Chloride 1,000 mls @ 0 mls/hr 05/01/23 10:47 0.9% Sodium Chloride 1,000 Ml MISCELLANE 04/30/24 10:46 .Q0M PRN Dialysis As Directed Ipratropium [place] 0.5 mg 04/29/23 22:00 05/02/23 08:35 Ipratropium [place] 0.5 Mg/2.5 Ml Vial.Neb INHALATION 04/28/24 21:59 0.5 mg QID PENNY Administration Levalbuterol HCl 1.25 mg 04/29/23 22:00 05/02/23 08:35 Levalbuterol Hcl *Nf* 1.25 Mg/3 Ml Vial.Neb INHALATION 04/28/24 21:59 1.25 mg QID PENNY Administration Protocol Lidocaine/Prilocaine 1 applic 04/28/23 17:45 05/01/23 08:34 Lidocaine-Prilocaine Cr 2.5-2.5% 5 Gm Tube TOPICAL 04/27/24 17:44 1 applic ONCE PRN Administration Dialysis Metoprolol Tartrate 25 mg 04/28/23 21:00 04/28/23 21:28 Metoprolol Tartrate 25 Mg Tablet PO 04/27/24 20:59 25 mg BID PENNY Administration Non-Formulary Medication 1 cap 04/28/23 17:45 Dextromethorphan-Quinidine [Nuedexta] PO 04/27/24 17:44 Q12H PENNY Ondansetron HCl 4 mg 04/28/23 17:46 Ondansetron 4 Mg/2 Ml Vial IV-PUSH 04/27/24 17:45 Q6H PRN Nausea And Vomiting Pantoprazole Sodium 40 mg 04/29/23 09:00 05/02/23 09:11 Pantoprazole 40 Mg Tablet.Dr PO 04/28/24 08:59 40 mg DAILY PENNY Administration Paricalcitol 2 mcg 05/01/23 11:00 05/01/23 12:06 Paricalcitol 10 Mcg/2 Ml Vial IV-PUSH 04/30/24 10:59 2 mcg MoFr@11 PEN[facility] Administration Potassium Chloride 40 meq 04/28/23 17:46 Potassium Chloride Er 20 Meq Tab.Er.Prt PO 04/27/24 17:45 DAILY PRN Hypokalemia Sildenafil Citrate 20 mg 04/28/23 22:00 05/02/23 09:11 Sildenafil Citrate 20 Mg Tablet PO 04/27/24 21:59 20 mg TID PENNY Administration Sodium Chloride 0 ml 04/28/23 13:04 05/01/23 15:54 Sodium Chloride 0.9 % 10 Ml Syringe IV-PUSH 04/27/24 13:03 10 ml PRN PRN Administration Flush Sodium Chloride 0 ml 04/28/23 15:24 04/29/23 12:39 Sodium Chloride 0.9 % 10 Ml Syringe IV-PUSH 04/27/24 15:23 10 ml PRN PRN Administration Flush Sodium Chloride 0 ml 05/01/23 08:33 Sodium Chloride 0.9 % 10 Ml Syringe IV-PUSH 04/30/24 08:32 PRN PRN Flush Sodium Chloride 0 ml 05/01/23 10:47 Sodium Chloride 0.9 % 10 Ml Syringe IV-PUSH 04/30/24 10:46 PRN PRN Flush Documented By: Bradford Henriquez MD 05/02/23 1142 Signed By: <Electronically signed by Bradford Henriquez MD> 05/02/23 1144 [facility] Work Phone: 1(110) 221-122908-29-2023 Progress note Author Kostas Wade [facility] May 02, 2023 11:36am Note Date/Time May 02, 2023 11 :36am [facility] [address] [place] [address] Infect. Disease Progress Note Signed Patient: Ruddy Palmer MR#: [id number] : 1985 Acct:[id number] Age/Sex: 37 / M Adm Date: 3 Loc: Room: [address] [place] [address] Type: ADM IN Attending Dr: Bradford Henriquez MD Copies to: ~ Date of Service: 05/02/2023 Subjective Interval history: Clinically not much changed compared to yesterday. At baseline mentation. Overnight was afebrile. Exam Physical Exam Vital Signs: Vital Signs Temp Pulse Pulse Resp BP BP Pulse Ox 05/02/23 08:55 05/02/23 09:00 98.2 F 122 H 18 117/63 93 L 05/02/23 08:36 112 H 20 05/02/23 08:00 05/02/23 00:00 05/02/23 03:48 97.9 F 05/02/23 00:00 05/01/23 23:15 112 H 105/59 L 94 L 05/01/23 20:00 05/01/23 20:00 101 H 18 100/55 L 100 05/01/23 20:09 108 H 20 05/01/23 20:01 109 H 20 05/01/23 16:40 114 H 20 05/01/23 16:33 113 H 22 05/01/23 16:00 05/01/23 15:50 98.4 F 121 H 20 114/70 94 L 05/01/23 13:22 110 H 115/64 05/01/23 13:45 98 F 105 H 18 119/69 96 05/01/23 12:30 90 82/39 L 05/01/23 14:10 97.7 F 117 H 20 102/67 96 05/01/23 12:00 85 98/49 L O2 Del Method O2 Flow Rate 05/02/23 08:55 Nasal Cannula 4 05/02/23 09:00 Nasal Cannula 4 05/02/23 08:36 05/02/23 08:00 Nasal Cannula 4 05/02/23 00:00 Nasal Cannula 4 05/02/23 03:48 05/02/23 00:00 Nasal Cannula 4 05/01/23 23:15 Nasal Cannula 4 05/01/23 20:00 Nasal Cannula 4 05/01/23 20:00 Nasal Cannula 4 05/01/23 20:09 05/01/23 20:01 05/01/23 16:40 05/01/23 16:33 05/01/23 16:00 Nasal Cannula 4 05/01/23 15:50 Nasal Cannula 4 05/01/23 13:22 05/01/23 13:45 Nasal Cannula 4 05/01/23 12:30 05/01/23 14:10 Nasal Cannula 4 05/01/23 12:00 Intake and Output 05/01/23 05/02/23 05/02/23 23:59 07:59 15:59 Intake Total 200 / 1350 200 / 200 Balance 200 / -150 200 / 200 Intake: IV 100 / 1000 Ertapenem 0.5 gm In Sodium 100 / 200 Chloride 0.9% 100 ml 100 ml @ 200 mls/hr IV Q24H [facility] Rx#: [id number] Oral 100 / 350 200 / 200 Other: # Unmeasured Voids 3 3 Weight 61 kg Date of Last Bowel Movement 04/29/23 04/29/23 05/02/23 Patient Weight 05/02/23 23:59 Weight 61 kg Const General: combative and ill appearing HEENT Head: normal to inspection Neck Neck: normal visual inspection Chest Chest palpation & inspection: normal inspection of the chest Resp Effort & Inspection: normal respiratory effort and cough Cardio Palpation: normal PMI GI Inspection: normal to inspection Skin General: no rashes or lesions noted Objective Labs CBC/BMP: CBC, BMP 05/02/23 05/02/23 05:40 05:40 Corrected WBC 11.0 H Uncorrected WBC Count 11.0 H RBC 2.73 L Hgb 8.2 L Hct 25.4 L Plt Count 66 L Sodium 133 L Potassium 3.8 Chloride 95 L Carbon Dioxide 30.1 Anion Gap 11.7 BUN 34 H Creatinine 4.05 H D Calcium 8.2 L Labs: 05/02/23 05:40 BUN 34 H Creatinine 4.05 H D Microbiology Microbiology: Microbiology - Results from entire visit 05/01/23 09:25 Blood - Right Hand Blood Culture - Preliminary No Growth 1 Day 05/01/23 09:23 Blood - Right Antecubital Blood Culture - Preliminary No Growth 1 Day 04/28/23 14:23 Blood - Right Antecubital Blood Culture - Final Escherichia coli (ESBL) 04/28/23 13:23 Blood - Right Antecubital Blood Culture - Final Escherichia coli (ESBL) 04/28/23 13:23 Blood - Right Antecubital Bacterial ID (NA Multiplex Assay) - Final 04/30/23 05:50 Blood - Right Antecubital Blood Culture - Preliminary Escherichia coli 04/30/23 05:50 Blood - Right Antecubital Bacterial ID (NA Multiplex Assay) - Final 05/01/23 16:32 Stool Stool Occult Blood (TRINA) - Final 04/29/23 17:00 Straight Catheter Urine Culture - Final Escherichia coli (ESBL) Additional Results Results Comment: ABC CT: IMPRESSION: ? 1. ? No acute findings. 2.? Cholelithiasis. 3.? Thickening of the esophagus to the GE junction. Finding May relate to esophagitis. Correlation endoscopy is recommended as underlying malignancy cannot BE excluded. 4.? Prostatomegaly with urinary bladder wall thickening suggestive of bladder outlet obstruction. Allergies and Medications Allergies and Active Meds Allergies ciprofloxacin [From Cipro] Allergy (Verified 04/28/23 13:10) Hives latex Allergy (Verified 04/28/23 13:10) Hives Active Medications Acetaminophen (Acetaminophen 325 Mg Tablet) 650 mg PO Q6H PRN PRN Reason: Pain 1-5 or fever Stop: 04/27/24 17:45 Last Admin: 04/30/23 09:26 Dose: 650 mg Hydrocodone Bitart/Acetaminophen (Hydrocodone/Acetaminophen 5-325 Mg Tablet) 1 tab PO Q4H PRN PRN Reason: Pain Scale 4 - 6 Apixaban (Apixaban 2.5 Mg Tablet) 2.5 mg PO BID [facility]NY Stop: 04/27/24 20:59 Last Admin: 05/01/23 21:46 Dose: 2.5 mg Bumetanide (Bumetanide 2 Mg Tablet) 2 mg PO SuTuWeThSa@0900 [facility] Stop: 04/28/24 08:59 Last Admin: 05/02/23 09:11 Dose: 2 mg Clonazepam (Clonazepam 0.5 Mg Tablet) 0.5 mg PO TID PENNY Stop: 10/25/23 21:59 Last Admin: 05/02/23 09:11 Dose: 0.5 mg Diltiazem HCl (Diltiazem 30 Mg Tablet) 30 mg PO TID PENNY Stop: 04/27/24 21:59 Last Admin: 05/02/23 09:11 Dose: 30 mg Ferric Sodium Gluconate Complex (Sodium Ferric Gluconat/Sucrose 62.5 Mg/5 Ml Vial) 62.5 mg IV-PUSH WEEKLY [facility]NY Stop: 04/30/24 08:59 Last Admin: 05/01/23 12:07 Dose: 62.5 mg Sodium Chloride (0.9% Sodium Chloride 1,000 Ml) 1,000 mls @ 0 mls/hr MISCELLANE.Q0M PRN PRN Reason: Dialysis Stop: 04/27/24 15:23 Last Infusion: 05/01/23 12:09 Dose: Infused Ertapenem 0.5 gm/ Sodium (Chloride) 100 mls @ 200 mls/hr IV Q24H [facility] Stop: 04/29/24 11:29 Last Infusion: 05/01/23 16:30 Dose: Infused Sodium Chloride (0.9% Sodium Chloride 1,000 Ml) 1,000 mls @ 0 mls/hr MISCELLANE.Q0M PRN PRN Reason: Dialysis Stop: 04/30/24 08:32 Sodium Chloride (0.9% Sodium Chloride 1,000 Ml) 1,000 mls @ 0 mls/hr MISCELLANE.Q0M PRN PRN Reason: Dialysis Stop: 04/30/24 10:46 Ipratropium [place] (Ipratropium [place] 0.5 Mg/2.5 Ml Vial.Neb) 0.5 mg INHALATION QID [facility] Stop: 04/28/24 21:59 Last Admin: 05/02/23 08:35 Dose: 0.5 mg Levalbuterol HCl (Levalbuterol Hcl *Nf* 1.25 Mg/3 Ml Vial.Kelsey) 1.25 mg INHALATION QID [facility]; Protocol Stop: 04/28/24 21:59 Last Admin: 05/02/23 08:35 Dose: 1.25 mg Lidocaine/Prilocaine (Lidocaine-Prilocaine Cr 2.5-2.5% 5 Gm Tube) 1 applic TOPICAL ONCE PRN PRN Reason: Dialysis Stop: 04/27/24 17:44 Last Admin: 05/01/23 08:34 Dose: 1 applic Metoprolol Tartrate (Metoprolol Tartrate 25 Mg Tablet) 25 mg PO BID [facility] Stop: 04/27/24 20:59 Last Admin: 04/28/23 21:28 Dose: 25 mg Non-Formulary Medication (Dextromethorphan-Quinidine [Nuedexta]) 1 cap PO Q12H [facility] Stop: 04/27/24 17:44 Ondansetron HCl (Ondansetron 4 Mg/2 Ml Vial) 4 mg IV-PUSH Q6H PRN PRN Reason: Nausea And Vomiting Stop: 04/27/24 17:45 Pantoprazole Sodium (Pantoprazole 40 Mg Tablet.) 40 mg PO DAILY [facility] Stop: 04/28/24 08:59 Last Admin: 05/02/23 09:11 Dose: 40 mg Paricalcitol (Paricalcitol 10 Mcg/2 Ml Vial) 2 mcg IV-PUSH MoFr@11 [facility] Stop: 04/30/24 10:59 Last Admin: 05/01/23 12:06 Dose: 2 mcg Potassium Chloride (Potassium Chloride Er 20 Meq Tab.Er.Prt) 40 meq PO DAILY PRN PRN Reason: Hypokalemia Stop: 04/27/24 17:45 Sildenafil Citrate (Sildenafil Citrate 20 Mg Tablet) 20 mg PO TID [facility] Stop: 04/27/24 21:59 Last Admin: 05/02/23 09:11 Dose: 20 mg Sodium Chloride (Sodium Chloride 0.9 % 10 Ml Syringe) 0 ml IV-PUSH PRN PRN PRN Reason: Flush Stop: 04/27/24 13:03 Last Admin: 05/01/23 15:54 Dose: 10 ml Sodium Chloride (Sodium Chloride 0.9 % 10 Ml Syringe) 0 ml IV-PUSH PRN PRN PRN Reason: Flush Stop: 04/27/24 15:23 Last Admin: 04/29/23 12:39 Dose: 10 ml Sodium Chloride (Sodium Chloride 0.9 % 10 Ml Syringe) 0 ml IV-PUSH PRN PRN PRN Reason: Flush Stop: 04/30/24 08:32 Sodium Chloride (Sodium Chloride 0.9 % 10 Ml Syringe) 0 ml IV-PUSH PRN PRN PRN Reason: Flush Stop: 04/30/24 10:46 A&P - Infectious Disease Assessment/Plan (1) E coli bacteremia: Code(s): R78.81 - Bacteremia; B96.20 - Unspecified Escherichia coli [E. coli] as the cause of diseases classified elsewhere Status: Acute (2) ESRD (end stage renal disease): Code(s): N18.6 - End stage renal disease Status: Acute (3) Pneumonia: Code(s): J18.9 - Pneumonia, unspecified organism Status: Acute Plan Patient source of E. coli in his blood I feel is secondary to perhaps prostate source based on imaging findings. Once blood cultures clear for which they are negative now at 1 day will likely benefit from a couple weeks worth of IV antibiotics. Given the ESBL producing organism he has grown continuing ertapenem. Given the prostamegaly seen on CT scan for what is worth we will check a PSA Documented By: Kostas Wade MD 05/02/23 1134 Signed By: <Electronically signed by MD Kostas Wade> 05/02/23 1136 [facility] Work Phone: [phone] 845-947708-28-2023 Consult note Author Van Bernardo [facility] May 01, 2023 5:18pm Note Date/Time May 01, 2023 2: 00pm [facility] [address] [place] [address] Palliative Care Consult Note Signed with Juan David Patient: Ruddy Palmer MR#: [id number] : 1985 Acct:[id number] Age/Sex: 37 / M Adm Date: 3 Loc: Room: [address] [place] [address] Type: ADM IN Attending Dr: Bradford Henriquez MD Copies to: MD Denis Pierce MD Larry E Jr Robinson,~ ADDENDUM1 I was able to meet up with patient's mother, Fabby, and we had Ernesto, patient's stepfather, on the phone. They are both patient's legal co-guardians. We again reviewed Ruddy's condition. They are hoping he improves with treatmentof the infection and he might somehow return to the function he had before he got sick this past week. If he fails to improve or worsens, we did discuss comfort care options including stopping dialysis and even considering hospice. They do not think they want to pursue retirement facility at discharge. But they are hoping he will be able to get up and participate in and some care like he did before he got sick this past week. For now they want to continue hemodialysis and hope he improves. But they did make it clear that they want toensure Ruddy is comfortable and does not suffer. We will follow-up tomorrow. 20 additional minutes spent discussing goals of care. Addendum Documented By: DO Van Bernardo 05/01/231717 Addendum Signed By: <Electronically signed by DO Van Bernardo> 05/01/231717 HPI Data of Consult Date of Consult: 05/01/2023 Requesting Physician: Bradford Henriquez MD Primary Care Provider: Denis Melvin MD Consult Narrative Reason for Consult: Advance care planning, goals of care HPI: This is a 37-year-old male with past medical history significant for cerebral palsy, hypertension, blindness, hearing impairment, COPD, pulmonary pretension, end- stage renal disease on hemodialysis twice weekly x2 years, pulmonary embolism on Eliquis. He was sent to the ER from his dialysis unit?[facility] in [place] because he was febrile and hypotensive. Patient did have mild lactic acidosis and was given IV fluids in the ED. Chest x-ray showed left basilar parenchymal densities and blood cultures were taken. Blood cultures do show ESBL. Respiratory panel was negative. Patient was started on IV antibiotics. Infectious disease and nephrology consulted. Today is hospitalization day #3. Patient is nonverbal and does not follow commands. Palliative medicine was consulted to help with goals of care and with advance care planning. Patient seen and evaluated at the dialysis unit on the fourth floor. He appearsto be comfortable, but chronically ill. He does not answer any questions or follow any commands. He does not open his eyes. Dialysis staff say that he didgive them his arm and was able to get through dialysis without a problem today. Patient appears to be well kept and well groomed. His CODE STATUS currently is DNR CCA without intubation, confirmed by family on admission. Patient's caregiver is at bedside in his hospital room?Laurie. She tells me that patient does have legal guardian in place?his mom, Fabby, and his stepdad, Ernesto, are his legal guardians. I called his mom, Fabby, and had a 35-minute discussion on the phone about goals of care and advance care planning. She tells me that Ruddy was a premature baby at , born at 29 weeks gestational age. He was 2 pounds and 10 ounces at and was on the ventilator machine for 5 months with severe respiratory failure. She tells me he was blind at , and also blind because he needed high levels of O2 to survive. Also he has had hearing impairment that been severe since he was born. She tells me that she had abruptio placenta when she was with him, andthat prompted the early delivery. She says that Ruddy was in the ICU for 6-1/2 months before he was brought home. She tells me that Ruddy has had a cognitive level of a 12-month to [id number] at baseline. She tells me that Ruddy has not been able to talk, but has been able to follow commands. He is dependent on ADLs?including toileting, bathing, dressing, feeding. But he does get up and walk at home spontaneously, and is even able to follow some commands and goes to the restroom when she asks him to. Over the past 5 years Fabby says that Ruddy has had numerous hospitalizations. His last hospitalization was in 2020, and he was sick with sepsis and renal failure. He does have history ofsolitary kidney. He has been on dialysis since 2020. Mom says he does still produce quite a bit of urine. He is only on dialysis twice weekly. She says she does feed Ruddy all meals, he is unable to chew food and is on a pur?ed diet. Had a long talk with Fabby, Ruddy's mother, on the phone. She understands that Ruddy is sick with positive blood cultures and is having further evaluation?including CT scan of abdomen pelvis to rule out other sources of infection. We did discuss how Ruddy will likely need IV antibiotics for some time depending on the work-up for the source of infection. She prefers he discharged to home instead of retirement facility when he is ready for discharge. She says she has plenty of help with caregivers. She says the caregivers help when she is working, and then when she is off work she is Ruddy'sprimary caregiver. She thinks Ruddy would be much more comfortable at home rather than retirement facility for rehab and IV antibiotics. We did talk about quality life and when Ruddy might want to discontinue dialysis in the future. For now, she thinks Ruddy has had a decent quality life at home. But Fabby did tell me that his quality life has been slowly declining recently. She says she would have a tough time deciding to stop hemodialysis in the futurebecause she would feel like she would be responsible for Ruddy's . We did have a talk about this on the phone. Fabby did confirm CODE STATUS of DNR CCA without intubation. She does not think Ruddy would want CPR if his heart were tostop and she does not think he would want to be on a ventilator machine in the future. Fabby says she will be in to visit him later this evening, we will attempt to talk later. Fabby was thankful for the conversation. Will follow up tomorrow. Please call if questions. Review of Systems Review of Systems Unobtainable due to mental condition [facility] Medical History (Updated 05/01/23 @ 14:42 by Van Bernardo DO) Adult hyaline membrane disease Asthma Blind Cerebral palsy Cystic BPD (bronchopulmonary dysplasia) Hearing impaired Hypertension Non-verbal learning disorder Panacinar emphysema Pulmonary hypertension Social History Smoking Status: Unknown if ever smoked Substance Use Type: Unknown Allergies & Medications Medications and Allergies Allergies ciprofloxacin [From Cipro] Allergy (Verified 04/28/23 13:10) Hives latex Allergy (Verified 04/28/23 13:10) Hives Home Medications apixaban 2.5 mg tablet (Eliquis) 2.5 mg PO BID 04/28/23 [History Confirmed 04/28/23] bumetanide 2 mg tablet 2 mg PO QAM 04/28/23 [History Confirmed 04/28/23] clonazepam 0.5 mg tablet 0.5 mg PO TID 04/28/23 [History Confirmed 04/28/23] dextromethorphan 20 mg-quinidine 10 mg capsule (Nuedexta) 1 cap PO Q12H 04/28/23[History Confirmed 04/28/23] diltiazem HCl 30 mg tablet 30 mg PO TID 04/28/23 [History Confirmed 04/28/23] lidocaine-prilocaine 2.5 %-2.5 % topical cream 1 applic topical ONCE 04/28/23 [History Confirmed 04/28/23] metoprolol tartrate 25 mg tablet 25 mg PO BID 04/28/23 [History Confirmed 04/28/23] omeprazole 20 mg tablet,delayed release 20 mg PO DAILY 04/28/23 [History Confirmed 04/28/23] sildenafil (pulm.hypertension) 20 mg tablet 20 mg PO TID 04/28/23 [History Confirmed 04/28/23] vitamin B complex-vitamin C 100 mg-folic acid 1 mg tablet (Dialyvite) 1 tab PO DAILY 04/28/23 [History Confirmed 04/28/23] ipratropium bromide 0.02 % solution for inhalation 2.5 ml inhalation Q8H 04/29/23 [History Confirmed 04/29/23] levalbuterol HCl 1.25 mg/3 mL solution for nebulization 1.25 mg inhalation Q8H 04/29/23 [History Confirmed 04/29/23] Active Medications Acetaminophen (Acetaminophen 325 Mg Tablet) 650 mg PO Q6H PRN PRN Reason: Pain 1-5 or fever Stop: 04/27/24 17:45 Last Admin: 04/30/23 09:26 Dose: 650 mg Hydrocodone Bitart/Acetaminophen (Hydrocodone/Acetaminophen 5-325 Mg Tablet) 1 tab PO Q4H PRN PRN Reason: Pain Scale 4 - 6 Apixaban (Apixaban 2.5 Mg Tablet) 2.5 mg PO BID [facility]NY Stop: 04/27/24 20:59 Last Admin: 05/01/23 08:34 Dose: 2.5 mg Bumetanide (Bumetanide 2 Mg Tablet) 2 mg PO SuTuWeThSa@0900 [facility] Stop: 04/28/24 08:59 Last Admin: 04/30/23 09:27 Dose: 2 mg Clonazepam (Clonazepam 0.5 Mg Tablet) 0.5 mg PO TID [facility] Stop: 10/25/23 21:59 Last Admin: 05/01/23 08:34 Dose: 0.5 mg Diltiazem HCl (Diltiazem 30 Mg Tablet) 30 mg PO TID [facility] Stop: 04/27/24 21:59 Last Admin: 05/01/23 08:20 Dose: Not Given Ferric Sodium Gluconate Complex (Sodium Ferric Gluconat/Sucrose 62.5 Mg/5 Ml Vial) 62.5 mg IV-PUSH WEEKLY [facility] Stop: 04/30/24 08:59 Last Admin: 05/01/23 12:07 Dose: 62.5 mg Sodium Chloride (0.9% Sodium Chloride 1,000 Ml) 1,000 mls @ 0 mls/hr MISCELLANE.Q0M PRN PRN Reason: Dialysis Stop: 04/27/24 15:23 Last Infusion: 05/01/23 12:09 Dose: Infused Ertapenem 0.5 gm/ Sodium (Chloride) 100 mls @ 200 mls/hr IV Q24H [facility] Stop: 04/29/24 11:29 Last Infusion: 05/01/23 07:00 Dose: Infused Sodium Chloride (0.9% Sodium Chloride 1,000 Ml) 1,000 mls @ 0 mls/hr MISCELLANE.Q0M PRN PRN Reason: Dialysis Stop: 04/30/24 08:32 Sodium Chloride (0.9% Sodium Chloride 1,000 Ml) 1,000 mls @ 0 mls/hr MISCELLANE.Q0M PRN PRN Reason: Dialysis Stop: 04/30/24 10:46 Ipratropium [place] (Ipratropium [place] 0.5 Mg/2.5 Ml Vial.Neb) 0.5 mg INHALATION QID [facility] Stop: 04/28/24 21:59 Last Admin: 05/01/23 07:21 Dose: 0.5 mg Levalbuterol HCl (Levalbuterol Hcl *Nf* 1.25 Mg/3 Ml Vial.Neb) 1.25 mg INHALATION QID [facility]; Protocol Stop: 04/28/24 21:59 Last Admin: 05/01/23 07:21 Dose: 1.25 mg Lidocaine/Prilocaine (Lidocaine-Prilocaine Cr 2.5-2.5% 5 Gm Tube) 1 applic TOPICAL ONCE PRN PRN Reason: Dialysis Stop: 04/27/24 17:44 Last Admin: 05/01/23 08:34 Dose: 1 applic Metoprolol Tartrate (Metoprolol Tartrate 25 Mg Tablet) 25 mg PO BID [facility] Stop: 04/27/24 20:59 Last Admin: 04/28/23 21:28 Dose: 25 mg Non-Formulary Medication (Dextromethorphan-Quinidine [Nuedexta]) 1 cap PO Q12H [facility] Stop: 04/27/24 17:44 Ondansetron HCl (Ondansetron 4 Mg/2 Ml Vial) 4 mg IV-PUSH Q6H PRN PRN Reason: Nausea And Vomiting Stop: 04/27/24 17:45 Pantoprazole Sodium (Pantoprazole 40 Mg Tablet.) 40 mg PO DAILY [facility] Stop: 04/28/24 08:59 Last Admin: 05/01/23 08:34 Dose: 40 mg Paricalcitol (Paricalcitol 10 Mcg/2 Ml Vial) 2 mcg IV-PUSH MoFr@11 [facility] Stop: 04/30/24 10:59 Last Admin: 05/01/23 12:06 Dose: 2 mcg Potassium Chloride (Potassium Chloride Er 20 Meq Tab.Er.Prt) 40 meq PO DAILY PRN PRN Reason: Hypokalemia Stop: 04/27/24 17:45 Sildenafil Citrate (Sildenafil Citrate 20 Mg Tablet) 20 mg PO TID [facility] Stop: 04/27/24 21:59 Last Admin: 05/01/23 08:20 Dose: Not Given Sodium Chloride (Sodium Chloride 0.9 % 10 Ml Syringe) 0 ml IV-PUSH PRN PRN PRN Reason: Flush Stop: 04/27/24 13:03 Last Admin: 05/01/23 12:08 Dose: 10 ml Sodium Chloride (Sodium Chloride 0.9 % 10 Ml Syringe) 0 ml IV-PUSH PRN PRN PRN Reason: Flush Stop: 04/27/24 15:23 Last Admin: 04/29/23 12:39 Dose: 10 ml Sodium Chloride (Sodium Chloride 0.9 % 10 Ml Syringe) 0 ml IV-PUSH PRN PRN PRN Reason: Flush Stop: 04/30/24 08:32 Sodium Chloride (Sodium Chloride 0.9 % 10 Ml Syringe) 0 ml IV-PUSH PRN PRN PRN Reason: Flush Stop: 04/30/24 10:46 Exam Physical Exam Vital Signs: Temp Pulse Resp BP Pulse Ox O2 Del Method O2 Flow Rate 98.2 F 85 18 98/49 L 92 L Nasal Cannula 4 05/01/23 08:20 05/01/23 12:00 05/01/23 09:40 05/01/23 12:00 05/01/23 09:40 05/01/23 09:40 05/01/23 09:40 Const General: comfortable, no acute distress, frail appearing and ill appearing chronically Orientation: not alert, not awake and obtunded HEENT Head: normal to inspection, normocephalic and atraumatic Nose: external nose normal Eyes Eyelids: eyelids normal Other: doesn't open his eyes. Blind per family. Neck Neck: supple Lymphatic: no lymphadenopathy noted Resp Auscultation: clear to auscultation bilaterally, diminished lung sounds bilaterally, no rales, no rhonchi and no wheezes Cardio Rate: regular rate Rhythm: regular rhythm GI Palpation: soft, no guarding, no masses and nontender Musc Other: Cachexia Neuro General: not alert and not awake Extrem General: no edema Results Labs 05/01/23 06:42 05/01/23 06:42 Labs: Laboratory Last Values Corrected WBC 13.1 X10E3/uL (4.1-10.5) H 05/01/23 06:42 Uncorrected WBC Count 19.9 x10E3/uL (4.1-10.5) H 04/28/23 13:23 RBC 2.85 X10E6/uL (3.90-5.60) L 05/01/23 06:42 Hgb 8.3 g/dL (13.0-17.0) L 05/01/23 06:42 Hct 26.5 % (38.8-50.0) L 05/01/23 06:42 MCV 92.9 fl (83.5-101) 05/01/23 06:42 MCH 29.2 pg (27.5-35.2) 05/01/23 06:42 MCHC 31.5 g/dL (32.5-35.6) L 05/01/23 06:42 RDW 14.1 % (12.0-14.8) 05/01/23 06:42 Plt Count 63 x10E3/uL (150-450) L 05/01/23 06:42 MPV 10.2 fl (6.6-10.1) H 05/01/23 06:42 Neut % (Auto) N/A 04/28/23 13:23 Lymph % (Auto) N/A 04/28/23 13:23 [place] % (Auto) N/A 04/28/23 13:23 Eos % (Auto) N/A 04/28/23 13:23 Baso % (Auto) N/A 04/28/23 13:23 Nucleat RBC Rel Count N/A 04/28/23 13:23 Neut # (Auto) N/A 04/28/23 13:23 Lymph # (Auto) N/A 04/28/23 13:23 [place] # (Auto) N/A 04/28/23 13:23 Eos # (Auto) N/A 04/28/23 13:23 Baso # (Auto) N/A 04/28/23 13:23 Band Neutrophils % 36 % (0-5) H 04/28/23 13:23 Lymphocytes % 2 % (18-42) L 04/28/23 13:23 Monocytes % 3 % (2-11) 04/28/23 13:23 Eosinophils % 1 % (1-3) 04/28/23 13:23 Basophils % 0 % (0-2) 04/28/23 13:23 Metamyelocytes % 5 % (0-0) H 04/28/23 13:23 Segmented Neutrophils 53 % (50-70) 04/28/23 13:23 Monocyte Dist Width 42.47 % (0.00-20.00) H 04/28/23 13:23 Platelet Estimate Decreased (Normal) 04/28/23 13:23 Plt Morphology Comment Normal (Normal) 04/28/23 13:23 RBC Morphology N/A 04/28/23 13:23 Hypochromasia Slight 04/28/23 13:23 Crenated Cell Slight 04/28/23 13:23 PT 14.4 Seconds (9.0-12.9) H 04/28/23 13:23 INR 1.2 04/28/23 13:23 APTT 36.0 Seconds (25.1-36.5) 04/28/23 13:23 PHA Creatinine Clear 14.35 05/01/23 06:42 Sodium 130 mmol/L (136-145) L 05/01/23 06:42 Potassium 3.8 mmol/L (3.5-5.1) 05/01/23 06:42 Chloride 95 mmol/L (98-107) L 05/01/23 06:42 Carbon Dioxide 23.9 mmol/L (21.0-31.0) 05/01/23 06:42 Anion Gap 14.9 mEq/L (6.0-15.0) 05/01/23 06:42 BUN 58 mg/dL (7-25) H 05/01/23 06:42 Creatinine 6.03 mg/dL (0.70-1.30) H D 05/01/23 06:42 Est GFR (CKD-EPI) 11.439 mL/Min 05/01/23 06:42 Glucose 82 mg/dL (70-100) 05/01/23 06:42 Lactic Acid 1.4 mmol/L (0.5-2.2) 04/28/23 19:31 Calcium 8.4 mg/dL (8.6-10.3) L 05/01/23 06:42 Total Bilirubin 0.3 mg/dl (0.3-1.0) 04/28/23 13:23 AST 27 U/L (13-39) 04/28/23 13:23 ALT 27 U/L (7-52) 04/28/23 13:23 Alkaline Phosphatase 107 U/L (34-104) H 04/28/23 13:23 Total Creatine Kinase 398 U/L (30-223) H 04/28/23 13:23 Troponin I High Sens 24.4 pg/mL (0.0-20.0) H 04/28/23 13:23 Total Protein 6.0 gm/dL (6.4-8.9) L 04/28/23 13:23 Albumin 3.4 gm/dL (3.5-5.7) L 04/28/23 13:23 Globulin 2.6 gm/dL 04/28/23 13:23 Albumin/Globulin Ratio 1.3 04/28/23 13:23 TSH 3rd Generation 1.33 uIU/mL (0.45-5.33) 04/28/23 13:23 Urine Color [place] (Yellow) A 04/29/23 17:00 Urine Appearance Turbid (Clear) A 04/29/23 17:00 Urine pH 6.0 (5.0-9.0) 04/29/23 17:00 Ur Specific [place] 1.015 (1.001-1.030) 04/29/23 17:00 Urine Protein 300 mg/dL (Negative) H 04/29/23 17:00 Urine Glucose (UA) Normal mg/dL (Normal) 04/29/23 17:00 Urine Ketones Negative (Negative) 04/29/23 17:00 Urine Occult Blood 3+ (Negative) H 04/29/23 17:00 Urine Nitrite Positive (Negative) H 04/29/23 17:00 Urine Bilirubin 1+ (Negative) H 04/29/23 17:00 Urine Urobilinogen Normal mg/dL (Normal) 04/29/23 17:00 Ur Leukocyte Esterase 4+ (Negative) H 04/29/23 17:00 Urine RBC 20-49 /HPF (0-4) H 04/29/23 17:00 Urine WBC Innumerable /HPF (0-4) H 04/29/23 17:00 Ur Squamous Epith Cells 0-1 /HPF (0-2) 04/29/23 17:00 Urine Bacteria 4+ (None Seen) H 04/29/23 17:00 Hyaline Casts 0-8 /LPF (0-8) 04/29/23 17:00 Urine Yeast Rare /HPF (None Seen) A 04/29/23 17:00 Microbiology Microbiology: 05/01/23 09:23 Blood Culture - Pending Blood - Right Antecubital 05/01/23 09:25 Blood Culture - Pending Blood - Right Hand 04/28/23 14:23 Blood Culture - Preliminary Blood - Right Antecubital Escherichia coli (ESBL) 04/28/23 13:23 Blood Culture - Preliminary Blood - Right Antecubital Escherichia coli (ESBL) Bacterial ID (NA Multiplex Assay) - Final 04/29/23 17:00 Urine Culture - Final Straight Catheter Escherichia coli (ESBL) 04/30/23 05:50 Blood Culture - Preliminary Blood - Right Antecubital Escherichia coli (ESBL) Bacterial ID (NA Multiplex Assay) - Final Assessment/Plan (1) ESRD (end stage renal disease): Code(s): N18.6 - End stage renal disease (2) E coli bacteremia: Code(s): R78.81 - Bacteremia; B96.20 - Unspecified Escherichia coli [E. coli] as the cause of diseases classified elsewhere (3) Cerebral palsy: Code(s): G80.9 - Cerebral palsy, unspecified (4) Counseling regarding advanced care planning and goals of care: Code(s): Z71.89 - Other specified counseling Plan Patient's caregiver is at bedside in his hospital room?Laurie. She tells me that patient does have legal guardian in place?his mom, Fabby, and his stepdad, Ernesto, are his legal guardians. I called his mom, Fabby, and had a 35-minute discussion on the phone about goals of care and advance care planning. She tells me that Ruddy was a premature baby at , born at 29 weeks gestational age. He was 2 pounds and 10 ounces at and was on the ventilator machine for 5 months with severe respiratory failure. She tells me he was blind at , and also blind because he needed high levels of O2 to survive. Also he has had hearing impairment that been severe since he was born. She tells me that she had abruptio placenta when she was with him, andthat prompted the early delivery. She says that Ruddy was in the ICU for 6-1/2 months before he was brought home. She tells me that Ruddy has had a cognitive level of a 12-month to [id number] at baseline. She tells me that Ruddy has not been able to talk, but has been able to follow commands. He is dependent on ADLs?including toileting, bathing, dressing, feeding. But he does get up and walk at home spontaneously, and is even able to follow some commands and goes to the restroom when she asks him to. Over the past 5 years Fabby says that Ruddy has had numerous hospitalizations. His last hospitalization was in 2020, and he was sick with sepsis and renal failure. He does have history ofsolitary kidney. He has been on dialysis since 2020. Mom says he does still produce quite a bit of urine. He is only on dialysis twice weekly. She says she does feed Ruddy all meals, he is unable to chew food and is on a pur?ed diet. Had a long talk with Fabby, Ruddy's mother, on the phone. She understands that Ruddy is sick with positive blood cultures and is having further evaluation?including CT scan of abdomen pelvis to rule out other sources of infection. We did discuss how Ruddy will likely need IV antibiotics for some time depending on the work-up for the source of infection. She prefers he discharged to home instead of retirement facility when he is ready for discharge. She says she has plenty of help with caregivers. She says the caregivers help when she is working, and then when she is off work she is Ruddy'sprimary caregiver. She thinks Ruddy would be much more comfortable at home rather than retirement facility for rehab and IV antibiotics. We did talk about quality life and when Ruddy might want to discontinue dialysis in the future. For now, she thinks Ruddy has had a decent quality life at home. But Fabby did tell me that his quality life has been slowly declining recently. She says she would have a tough time deciding to stop hemodialysis in the futurebecause she would feel like she would be responsible for Ruddy's . We did have a talk about this on the phone. Fabby did confirm CODE STATUS of DNR CCA without intubation. She does not think Ruddy would want CPR if his heart were tostop and she does not think he would want to be on a ventilator machine in the future. Fabby says she will be in to visit him later this evening, we will attempt to talk later. Fabby was thankful for the conversation. Will follow up tomorrow. Please call if questions. Documented By: Van Bernardo DO 05/01/23 1 400 Signed By: <Electronically signed by DO Van Bernardo> 05/01/23 1656 [facility] Work Phone: [phone] 129-270108-28-2023 Progress note Author Jessica Macdonald [facility] May 01, 2023 12:26pm Note Date/Time May 01, 2023 12 :16pm [facility] [address] [place] [address] Nephrology Progress Note Signed Patient: Ruddy Palmer MR#: [id number] : 1985 Acct:[id number] Age/Sex: 37 / M Adm Date: 3 Loc: Room: [address] [place] [address] Type: ADM IN Attending Dr: Bradford Henriquez MD Copies to: ~ Date of Service: 05/01/2023 Subjective Subjective Narrative: This is a 37-year-old male with a medical history of hypertension, cerebral palsy, COPD, pulm hypertension , ESRD, PE on Apixaban, anemia of renal disease and secondary hyperparathyroidism was brought into the emergency room for fever and hypotension. He does not communicate and most of the history was taken frompatient's chart and the patient's mother. His mother stated that patient started running fever 2 days prior to admission and had a fever of 102. He started having mild cough. He went for a his dialysis and was noticed to have a hypotension so he was sent to the emergency room for evaluation. Mother reported patient has a ESRD for 2 years after he had a septic shock and required dialysis. She reported that he was seen by the milk driver many years ago whenhe was found to have a solitary kidney. Patient currently goes to the [facility] twice a week Monday and Monday schedule. He currently has AV fistula asa dialysis access. Mother reported that patient still makes urine but he he is incontinent. Nephrology is consulted for ESRD management during the hospital stay. Interval history Patient is being seen and examined on hemodialysis. He is awake, no fever or chills. Blood pressure is borderline 98/49. Patient does not communicate. Urine analysis and blood culture showed evidence of ESBL E. coli. He is on ertapenem. He was evaluated by ID and further work-up including CT scan of the abdomen is pending. Chest x-ray on admission showed minor interstitial changes on the left side suggestive of subtle infiltrate/atelectasis. Exam Physical Exam Vital Signs: Temp Pulse Resp BP Pulse Ox O2 Del Method O2 Flow Rate 36.8 C 85 18 98/49 L 92 L Nasal Cannula 4 05/01/23 08:20 05/01/23 12:00 05/01/23 09:40 05/01/23 12:00 05/01/23 09:40 05/01/23 09:40 05/01/23 09:40 Narrative: General: Awake, nonverbal on dialysis HEENT: Atraumatic, normal cephalic. He has mild pallor with no jaundice or cyanosis. Neck: Supple no JVD no carotid bruit CVS S1-S2: regular rate and rhythm no murmur no gallop Chest clear to auscultation percussion no wheezing no crackles Abdomen: Soft bowel sounds normoactive no rebound no guarding Extremities no edema no clubbing Neurologic non verbal Skin exam: Normal no skin rash or lesions Musculoskeletal exam normal no joint effusion no movement limited no redness or swelling Vascular access: Left arm AV fistula with good thrill. No evidence of infection. Objective Intake and Output I&O: Intake & Output 04/28/23 04/29/23 04/30/23 05/01/23 23:59 23:59 23:59 23:59 Intake Total 1650 / 1650 1060 / 1060 340 / 340 600 / 600 Output Total 488 / 488 500 / 500 Balance 1162 / 1162 560 / 560 340 / 340 600 / 600 Weight 63.7 kg 63.4 kg 62.7 kg 61.1 kg Meds and Allergies Meds: Active Medications Acetaminophen (Acetaminophen 325 Mg Tablet) 650 mg PO Q6H PRN PRN Reason: Pain 1-5 or fever Stop: 04/27/24 17:45 Last Admin: 04/30/23 09:26 Dose: 650 mg Hydrocodone Bitart/Acetaminophen (Hydrocodone/Acetaminophen 5-325 Mg Tablet) 1 tab PO Q4H PRN PRN Reason: Pain Scale 4 - 6 Apixaban (Apixaban 2.5 Mg Tablet) 2.5 mg PO BID [facility] Stop: 04/27/24 20:59 Last Admin: 05/01/23 08:34 Dose: 2.5 mg Bumetanide (Bumetanide 2 Mg Tablet) 2 mg PO SuTuWeThSa@0900 [facility] Stop: 04/28/24 08:59 Last Admin: 04/30/23 09:27 Dose: 2 mg Clonazepam (Clonazepam 0.5 Mg Tablet) 0.5 mg PO TID [facility] Stop: 10/25/23 21:59 Last Admin: 05/01/23 08:34 Dose: 0.5 mg Diltiazem HCl (Diltiazem 30 Mg Tablet) 30 mg PO TID [facility] Stop: 04/27/24 21:59 Last Admin: 05/01/23 08:20 Dose: Not Given Ferric Sodium Gluconate Complex (Sodium Ferric Gluconat/Sucrose 62.5 Mg/5 Ml Vial) 62.5 mg IV-PUSH WEEKLY [facility] Stop: 04/30/24 08:59 Last Admin: 05/01/23 12:07 Dose: 62.5 mg Sodium Chloride (0.9% Sodium Chloride 1,000 Ml) 1,000 mls @ 0 mls/hr MISCELLANE.Q0M PRN PRN Reason: Dialysis Stop: 04/27/24 15:23 Last Infusion: 05/01/23 12:09 Dose: Infused Ertapenem 0.5 gm/ Sodium (Chloride) 100 mls @ 200 mls/hr IV Q24H [facility] Stop: 04/29/24 11:29 Last Infusion: 05/01/23 07:00 Dose: Infused Sodium Chloride (0.9% Sodium Chloride 1,000 Ml) 1,000 mls @ 0 mls/hr MISCELLANE.Q0M PRN PRN Reason: Dialysis Stop: 04/30/24 08:32 Sodium Chloride (0.9% Sodium Chloride 1,000 Ml) 1,000 mls @ 0 mls/hr MISCELLANE.Q0M PRN PRN Reason: Dialysis Stop: 04/30/24 10:46 Ipratropium [place] (Ipratropium [place] 0.5 Mg/2.5 Ml Vial.Neb) 0.5 mg INHALATION QID [facility] Stop: 04/28/24 21:59 Last Admin: 05/01/23 07:21 Dose: 0.5 mg Levalbuterol HCl (Levalbuterol Hcl *Nf* 1.25 Mg/3 Ml Vial.Neb) 1.25 mg INHALATION QID [facility]; Protocol Stop: 04/28/24 21:59 Last Admin: 05/01/23 07:21 Dose: 1.25 mg Lidocaine/Prilocaine (Lidocaine-Prilocaine Cr 2.5-2.5% 5 Gm Tube) 1 applic TOPICAL ONCE PRN PRN Reason: Dialysis Stop: 04/27/24 17:44 Last Admin: 05/01/23 08:34 Dose: 1 applic Metoprolol Tartrate (Metoprolol Tartrate 25 Mg Tablet) 25 mg PO BID [facility] Stop: 04/27/24 20:59 Last Admin: 04/28/23 21:28 Dose: 25 mg Non-Formulary Medication (Dextromethorphan-Quinidine [Nuedexta]) 1 cap PO Q12H [facility] Stop: 04/27/24 17:44 Ondansetron HCl (Ondansetron 4 Mg/2 Ml Vial) 4 mg IV-PUSH Q6H PRN PRN Reason: Nausea And Vomiting Stop: 04/27/24 17:45 Pantoprazole Sodium (Pantoprazole 40 Mg Tablet.Dr) 40 mg PO DAILY [facility] Stop: 04/28/24 08:59 Last Admin: 05/01/23 08:34 Dose: 40 mg Paricalcitol (Paricalcitol 10 Mcg/2 Ml Vial) 2 mcg IV-PUSH MoFr@11 [facility] Stop: 04/30/24 10:59 Last Admin: 05/01/23 12:06 Dose: 2 mcg Potassium Chloride (Potassium Chloride Er 20 Meq Tab.Er.Prt) 40 meq PO DAILY PRN PRN Reason: Hypokalemia Stop: 04/27/24 17:45 Sildenafil Citrate (Sildenafil Citrate 20 Mg Tablet) 20 mg PO TID [facility] Stop: 04/27/24 21:59 Last Admin: 05/01/23 08:20 Dose: Not Given Sodium Chloride (Sodium Chloride 0.9 % 10 Ml Syringe) 0 ml IV-PUSH PRN PRN PRN Reason: Flush Stop: 04/27/24 13:03 Last Admin: 05/01/23 12:08 Dose: 10 ml Sodium Chloride (Sodium Chloride 0.9 % 10 Ml Syringe) 0 ml IV-PUSH PRN PRN PRN Reason: Flush Stop: 04/27/24 15:23 Last Admin: 04/29/23 12:39 Dose: 10 ml Sodium Chloride (Sodium Chloride 0.9 % 10 Ml Syringe) 0 ml IV-PUSH PRN PRN PRN Reason: Flush Stop: 04/30/24 08:32 Sodium Chloride (Sodium Chloride 0.9 % 10 Ml Syringe) 0 ml IV-PUSH PRN PRN PRN Reason: Flush Stop: 04/30/24 10:46 Allergies ciprofloxacin [From Cipro] Allergy (Verified 04/28/23 13:10) Hives latex Allergy (Verified 04/28/23 13:10) Hives Results Labs 05/01/23 06:42 05/01/23 06:42 Labs: 05/01/23 06:42 BUN 58 H Creatinine 6.03 H D Radiology Impressions Impressions - last 24 hours: Any impression(s) listed above is documentation that was entered by the reading physician into a diagnostic report(s) for Ruddy Palmer. I have reviewed the report(s) and am incorporating any findings in the treatment plan of this patient where applicable. A&P - Nephrology Assessment/Plan (1) ESRD (end stage renal disease): Plan: He has a ESRD after [facility]CK[facility] in setting of sepsis. He has been on dialysis for 2 years and currently goes to the [facility] twice a week on Monday schedule (2) Sepsis associated hypotension: Plan: He was presented with fever leukocytosis and hypertension. His blood culture positive for E. coli bacteremia on ertapenem for ESBL. (3) Anemia of renal disease: Plan: Hemoglobin is below the goal. He receives Mircera with dialysis. (4) Secondary hyperparathyroidism: Plan: He has a secondary hyperparathyroidism and currently receives IV Hectorol with dialysis. Plan * Hemodialysis today for 3 and half hour, will change potassium bath to CK. 1 L ultrafiltration as tolerated. No heparin will be used as platelets still low 63,000 in the setting of infection. Patient already on apixaban. * Patient is currently on Ativan 0.5 g daily for ESBL bacteremia. ID was consulted and CT scan of the abdomen and sputum cultures are pending. Patient is not able to give clear history. * Patient still makes urine as per the mother. Continue Bumex on nondialysis day. * Continue darbepoetin tatianna 40 mcg weekly, ferric sodium gluconate 62.5 mg IV weekly and paricalcitol 2 mcg with each hemodialysis * Monitor platelets closely and stop Eliquis if patient's platelet continue to drop Documented By: Jessica Macdonald MD 05/01/235 Signed By: <Electronically signed by MD Jessica Macdonald> 05/01/23 1221 [facility] Work Phone: 1(500) 719-594608-28-2023 Consult note Author Kostas Wade [facility] May 01, 2023 12:02pm Note Date/Time May 01, 2023 11 :57am [facility] [address] [place] [address] Infect. Disease Consult Note Signed Patient: Ruddy Palmer MR#: [id number] : 1985 Acct:[id number] Age/Sex: 37 / M Adm Date: 3 Loc: Room: [address] [place] [address] Type: ADM IN Attending Dr: Bradford Henriquez MD Copies to: MD Denis Pierce MD Michael S Blank, MD~ HPI Data of Consult Consult date: 05/01/23 Requesting Physician: Bradford Henriquez MD Primary Care Provider: Denis Melvin MD Consult Narrative History of present illness: This is a 37M with PMH of HTN, Cerebral Palsy, Blindness, Hearing impairment, COPD, Pulmonary HTN, ESRD (on HD), PE (on Eliquis) who presented with Hypotesionand admitted for the evaluation and treatment of suspected Bacterial Pneumonia? ? The patient presented with hypotension prior to HD today and was subsequently sent to the ED for evaluation. The patient's mother reported that she had observed him coughing over the past two days, accompanied by a fever reaching upto 102F. The patient has been unable to communicate since childhood. Blood cultures have been positive for E. 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 Patient is coughing whenI saw him in dialysis but I do not see a sputum culture obtained CC: Bradford Henriquez MD Review of Systems Review of Systems Unobtainable due to mental condition [facility] Medical History (Updated 04/29/23 @ 10:27 by Melina Garcia MD) Adult hyaline membrane disease Asthma Blind Cerebral palsy Cystic BPD (bronchopulmonary dysplasia) Hearing impaired Hypertension Non-verbal learning disorder Panacinar emphysema Pulmonary hypertension Social History Smoking Status: Unknown if ever smoked Substance Use Type: Unknown Allergies and Medications Allergies and Active Meds Allergies ciprofloxacin [From Cipro] Allergy (Verified 04/28/23 13:10) Hives latex Allergy (Verified 04/28/23 13:10) Hives Active Medications Acetaminophen (Acetaminophen 325 Mg Tablet) 650 mg PO Q6H PRN PRN Reason: Pain 1-5 or fever Stop: 04/27/24 17:45 Last Admin: 04/30/23 09:26 Dose: 650 mg Hydrocodone Bitart/Acetaminophen (Hydrocodone/Acetaminophen 5-325 Mg Tablet) 1 tab PO Q4H PRN PRN Reason: Pain Scale 4 - 6 Apixaban (Apixaban 2.5 Mg Tablet) 2.5 mg PO BID [facility] Stop: 04/27/24 20:59 Last Admin: 05/01/23 08:34 Dose: 2.5 mg Bumetanide (Bumetanide 2 Mg Tablet) 2 mg PO SuTuWeThSa@0900 [facility] Stop: 04/28/24 08:59 Last Admin: 04/30/23 09:27 Dose: 2 mg Clonazepam (Clonazepam 0.5 Mg Tablet) 0.5 mg PO TID [facility] Stop: 10/25/23 21:59 Last Admin: 05/01/23 08:34 Dose: 0.5 mg Diltiazem HCl (Diltiazem 30 Mg Tablet) 30 mg PO TID [facility] Stop: 04/27/24 21:59 Last Admin: 05/01/23 08:20 Dose: Not Given Ferric Sodium Gluconate Complex (Sodium Ferric Gluconat/Sucrose 62.5 Mg/5 Ml Vial) 62.5 mg IV-PUSH WEEKLY [facility] Stop: 04/30/24 08:59 Sodium Chloride (0.9% Sodium Chloride 1,000 Ml) 1,000 mls @ 0 mls/hr MISCELLANE.Q0M PRN PRN Reason: Dialysis Stop: 04/27/24 15:23 Last Admin: 04/29/23 11:11 Dose: 999 mls/hr Ertapenem 0.5 gm/ Sodium (Chloride) 100 mls @ 200 mls/hr IV Q24H [facility] Stop: 04/29/24 11:29 Last Infusion: 05/01/23 07:00 Dose: Infused Sodium Chloride (0.9% Sodium Chloride 1,000 Ml) 1,000 mls @ 0 mls/hr MISCELLANE.Q0M PRN PRN Reason: Dialysis Stop: 04/30/24 08:32 Sodium Chloride (0.9% Sodium Chloride 1,000 Ml) 1,000 mls @ 0 mls/hr MISCELLANE.Q0M PRN PRN Reason: Dialysis Stop: 04/30/24 10:46 Ipratropium [place] (Ipratropium [place] 0.5 Mg/2.5 Ml Vial.Neb) 0.5 mg INHALATION QID [facility] Stop: 04/28/24 21:59 Last Admin: 05/01/23 07:21 Dose: 0.5 mg Levalbuterol HCl (Levalbuterol Hcl *Nf* 1.25 Mg/3 Ml Vial.Neb) 1.25 mg INHALATION QID [facility]; Protocol Stop: 04/28/24 21:59 Last Admin: 05/01/23 07:21 Dose: 1.25 mg Lidocaine/Prilocaine (Lidocaine-Prilocaine Cr 2.5-2.5% 5 Gm Tube) 1 applic TOPICAL ONCE PRN PRN Reason: Dialysis Stop: 04/27/24 17:44 Last Admin: 05/01/23 08:34 Dose: 1 applic Metoprolol Tartrate (Metoprolol Tartrate 25 Mg Tablet) 25 mg PO BID [facility] Stop: 04/27/24 20:59 Last Admin: 04/28/23 21:28 Dose: 25 mg Non-Formulary Medication (Dextromethorphan-Quinidine [Nuedexta]) 1 cap PO Q12H [facility] Stop: 04/27/24 17:44 Ondansetron HCl (Ondansetron 4 Mg/2 Ml Vial) 4 mg IV-PUSH Q6H PRN PRN Reason: Nausea And Vomiting Stop: 04/27/24 17:45 Pantoprazole Sodium (Pantoprazole 40 Mg Tablet.) 40 mg PO DAILY [facility] Stop: 04/28/24 08:59 Last Admin: 05/01/23 08:34 Dose: 40 mg Paricalcitol (Paricalcitol 10 Mcg/2 Ml Vial) 2 mcg IV-PUSH MoFr@11 [facility] Stop: 04/30/24 10:59 Potassium Chloride (Potassium Chloride Er 20 Meq Tab.Er.Prt) 40 meq PO DAILY PRN PRN Reason: Hypokalemia Stop: 04/27/24 17:45 Sildenafil Citrate (Sildenafil Citrate 20 Mg Tablet) 20 mg PO TID [facility] Stop: 04/27/24 21:59 Last Admin: 05/01/23 08:20 Dose: Not Given Sodium Chloride (Sodium Chloride 0.9 % 10 Ml Syringe) 0 ml IV-PUSH PRN PRN PRN Reason: Flush Stop: 04/27/24 13:03 Last Admin: 04/28/23 16:23 Dose: 10 ml Sodium Chloride (Sodium Chloride 0.9 % 10 Ml Syringe) 0 ml IV-PUSH PRN PRN PRN Reason: Flush Stop: 04/27/24 15:23 Last Admin: 04/29/23 12:39 Dose: 10 ml Sodium Chloride (Sodium Chloride 0.9 % 10 Ml Syringe) 0 ml IV-PUSH PRN PRN PRN Reason: Flush Stop: 04/30/24 08:32 Sodium Chloride (Sodium Chloride 0.9 % 10 Ml Syringe) 0 ml IV-PUSH PRN PRN PRN Reason: Flush Stop: 04/30/24 10:46 Exam Physical Exam Vital Signs: Temp Pulse Resp BP Pulse Ox O2 Del Method O2 Flow Rate 98.2 F 110 H 18 104/53 L 92 L Nasal Cannula 4 05/01/23 08:20 05/01/23 11:30 05/01/23 09:40 05/01/23 11:30 05/01/23 09:40 05/01/23 09:40 05/01/23 09:40 Const General: combative and ill appearing HEENT Head: normal to inspection Neck Neck: normal visual inspection Chest Chest palpation & inspection: normal inspection of the chest Resp Effort & Inspection: normal respiratory effort and cough Cardio Palpation: normal PMI GI Inspection: normal to inspection Skin General: no rashes or lesions noted Neuro Other: Patient is at his baseline mental status cannot provide a history. Results Labs 05/01/23 06:42 05/01/23 06:42 Labs: 05/01/23 06:42: Corrected WBC 13.1 H 05/01/23 06:42: BUN 58 H, Creatinine 6.03 H D Microbiology Results Microbiology Narrative: 05/01/23 09:23 Blood Culture - Pending Blood - Right Antecubital 05/01/23 09:25 Blood Culture - Pending Blood - Right Hand 04/28/23 14:23 Blood Culture - Preliminary Blood - Right Antecubital Escherichia coli (ESBL) 04/28/23 13:23 Blood Culture - Preliminary Blood - Right Antecubital Escherichia coli (ESBL) Bacterial ID (NA Multiplex Assay) - Final 04/29/23 17:00 Urine Culture - Final Straight Catheter Escherichia coli (ESBL) 04/30/23 05:50 Blood Culture - Preliminary Blood - Right Antecubital Escherichia coli (ESBL) Bacterial ID (NA Multiplex Assay) - Final Imaging and Cardiology Status: report viewed by me Results Comments: CXR: IMPRESSION:? No acute process.? Minor interstitial changes with left basilar parenchymal densities suggesting subtle infiltrate/atelectasis. A&P - Infectious Disease (1) E coli bacteremia: Status: Acute (2) ESRD (end stage renal disease): Status: Acute (3) Pneumonia: Status: Acute Plan Patient is coughing when I saw him in dialysis but no sputum perhaps is able to be obtained. Will order sputum culture regardless. Follow-up cultures from the blood are pending. He had a urine culture that also grew some bacteria and given he cannot really communicate very well would like to get a CT scan of the abdomen pelvis without contrast to further evaluate for potential other sources. I agree with ertapenem as treating his ESBL E. coli. Documented By: Kostas Wade MD 05/01/23 1156 Signed By: <Electronically signed by MD Kostas Wade> 05/01/23 1204 [facility] Work Phone: 1(985) 451-584008-28-2023 Progress note Author Bradford Henriquez [facility] May 01, 2023 8:54am Note Date/Time May 01, 2023 8: 46am [facility] [address] [place] [address] Hospitalist Progress Note Signed Patient: Ruddy Palmer MR#: [id number] : 1985 Acct:[id number] Age/Sex: 37 / M Adm Date: 3 Loc: Room: [address] [place] [address] Type: ADM IN Attending Dr: Bradford Henriquez MD Copies to: ~ Date of Service: 05/01/2023 Subjective Subjective Narrative: Assessment And Plan 37M with PMH of HTN, 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, Cerebral Palsy, Blindness, Hearing impairment, COPD, CRF (on Home O2), Pulmonary HTN, ESRD (on HD), PE (on Eliquis) who presented with Hypotension from dialysis center and admitted for the evaluation and treatment of suspected Bacterial Pneumonia vs UTI UTI ECOli ESBL E.Coli Bacteremia Seen and examined Clinically better No fever CBc is improving BLood cultures Blood Culture Preliminary 05/01/23-0312 Gram Stain Gram Negative Bacilli Organism 1 Escherichia coli (ESBL) Urine culture Urine Culture Final 05/01/23-0847 Organism 1 Escherichia coli (ESBL) [place] Count >100,000 CFU/ml ID is following Repeat blood cultures C/w Invanz IV Bacterial pneumonia - ruled out No fever CBC is trending down Blood cultures grew ECOLI Urine culture grew ECOLI On Invanz daily ESRD Nephrology was consulted for the management of dialysis and ESRD complication recommendation appreciated Advance care planing i offered palliative consult to the mother given all his comorbidity who agree Subjective: He is not verbal Not on acute distress No fever Chronic diseases:?Unless mentioned Above, Essential home medications have been continued.? DVT Px:?Addressed Disposition:?To be determined Plan of care Discussed with:?the medical team, the patient mother Exam Physical Exam Vital Signs: Temp Pulse Resp BP Pulse Ox O2 Del Method O2 Flow Rate 98.2 F 117 H 16 103/57 L 94 L Nasal Cannula 4 05/01/23 08:20 05/01/23 08:20 05/01/23 08:20 05/01/23 08:20 05/01/23 08:20 05/01/23 08:20 05/01/23 08:20 Narrative: General:alert and awake non verbal not on acute distress HEENT: PERRLA, oral mucosa moist Neck: Supple no JVD no carotid bruit CVS S1-S2 regular rate and rhythm no murmur no gallop Chest clear to auscultation percussion no wheezing no crackles Abdomen: Soft bowel sounds normoactive no rebound no guarding Extremities no edema no clubbing Neurologic non verbal Skin exam: Normal no skin rash or lesions Musculoskeletal exam normal no joint effusion no movement limited no redness or swelling Objective Lab Results 05/01/23 06:42 05/01/23 06:42 Microbiology Results Microbiology 04/28/23 14:23 Blood - Right Antecubital Blood Culture - Preliminary Escherichia coli (ESBL) 04/28/23 13:23 Blood - Right Antecubital Blood Culture - Preliminary Escherichia coli (ESBL) 04/28/23 13:23 Blood - Right Antecubital Bacterial ID (NA Multiplex Assay) - Final 04/30/23 05:50 Blood - Right Antecubital Blood Culture - Preliminary Escherichia coli (ESBL) 04/30/23 05:50 Blood - Right Antecubital Bacterial ID (NA Multiplex Assay) - Final 04/29/23 17:00 Straight Catheter Urine Culture - Preliminary Escherichia coli Meds Allergies and Active Meds Allergies ciprofloxacin [From Cipro] Allergy (Verified 04/28/23 13:10) Hives latex Allergy (Verified 04/28/23 13:10) Hives Active Meds: Active Medications Generic Name Dose Route Start Last Admin Trade Name Freq PRN Reason Stop Dose Admin Acetaminophen 650 mg 04/28/23 17:46 04/30/23 09:26 Acetaminophen 325 Mg Tablet PO 04/27/24 17:45 650 mg Q6H PRN Administration Pain 1-5 or fever Hydrocodone Bitart/Acetaminophen 1 tab 04/28/23 17:46 Hydrocodone/Acetaminophen 5-325 Mg Tablet PO Q4H PRN Pain Scale 4 - 6 Apixaban 2.5 mg 04/28/23 21:00 05/01/23 08:34 Apixaban 2.5 Mg Tablet PO 04/27/24 20:59 2.5 mg BID [facility] Administration Bumetanide 2 mg 04/29/23 09:00 04/30/23 09:27 Bumetanide 2 Mg Tablet PO 04/28/24 08:59 2 mg SuTuWeThSa@0900 [facility] Administration Clonazepam 0.5 mg 04/28/23 22:00 05/01/23 08:34 Clonazepam 0.5 Mg Tablet PO 10/25/23 21:59 0.5 mg TID PENNY Administration Diltiazem HCl 30 mg 04/28/23 22:00 04/30/23 21:54 Diltiazem 30 Mg Tablet PO 04/27/24 21:59 30 mg TID PENNY Administration Ferric Sodium Gluconate Complex 62.5 mg 05/01/23 09:00 Sodium Ferric Gluconat/Sucrose 62.5 Mg/5 Ml Vial IV-PUSH 04/30/24 08:59 WEEKLY PENNY Sodium Chloride 1,000 mls @ 0 mls/hr 04/28/23 15:24 04/29/23 11:11 0.9% Sodium Chloride 1,000 Ml MISCELLANE 04/27/24 15:23 999 mls/hr .Q0M PRN Administration Dialysis As Directed Ertapenem 0.5 gm/ Sodium 100 mls @ 200 mls/hr 04/30/23 11:30 04/30/23 11:57 Chloride IV 04/29/24 11:29 200 mls/hr Q24H PENNY Administration Sodium Chloride 1,000 mls @ 0 mls/hr 05/01/23 08:33 0.9% Sodium Chloride 1,000 Ml MISCELLANE 04/30/24 08:32 .Q0M PRN Dialysis As Directed Ipratropium [place] 0.5 mg 04/29/23 22:00 05/01/23 07:21 Ipratropium [place] 0.5 Mg/2.5 Ml Vial.Neb INHALATION 04/28/24 21:59 0.5 mg QID PENNY Administration Levalbuterol HCl 1.25 mg 04/29/23 22:00 05/01/23 07:21 Levalbuterol Hcl *Nf* 1.25 Mg/3 Ml Vial.Neb INHALATION 04/28/24 21:59 1.25 mg QID PENNY Administration Protocol Lidocaine/Prilocaine 1 applic 04/28/23 17:45 05/01/23 08:34 Lidocaine-Prilocaine Cr 2.5-2.5% 5 Gm Tube TOPICAL 04/27/24 17:44 1 applic ONCE PRN Administration Dialysis Metoprolol Tartrate 25 mg 04/28/23 21:00 04/28/23 21:28 Metoprolol Tartrate 25 Mg Tablet PO 04/27/24 20:59 25 mg BID PENNY Administration Non-Formulary Medication 1 cap 04/28/23 17:45 Dextromethorphan-Quinidine [Nuedexta] PO 04/27/24 17:44 Q12H PENNY Ondansetron HCl 4 mg 04/28/23 17:46 Ondansetron 4 Mg/2 Ml Vial IV-PUSH 04/27/24 17:45 Q6H PRN Nausea And Vomiting Pantoprazole Sodium 40 mg 04/29/23 09:00 05/01/23 08:34 Pantoprazole 40 Mg Tablet.Dr PO 04/28/24 08:59 40 mg DAILY PENNY Administration Paricalcitol 2 mcg 04/29/23 09:05 04/29/23 11:11 Paricalcitol 10 Mcg/2 Ml Vial IV-PUSH 05/04/24 09:04 2 mcg PRN PRN Administration Dialysis Potassium Chloride 40 meq 04/28/23 17:46 Potassium Chloride Er 20 Meq Tab.Er.Prt PO 04/27/24 17:45 DAILY PRN Hypokalemia Sildenafil Citrate 20 mg 04/28/23 22:00 04/30/23 21:54 Sildenafil Citrate 20 Mg Tablet PO 04/27/24 21:59 20 mg TID PENNY Administration Sodium Chloride 0 ml 04/28/23 13:04 04/28/23 16:23 Sodium Chloride 0.9 % 10 Ml Syringe IV-PUSH 04/27/24 13:03 10 ml PRN PRN Administration Flush Sodium Chloride 0 ml 04/28/23 15:24 04/29/23 12:39 Sodium Chloride 0.9 % 10 Ml Syringe IV-PUSH 04/27/24 15:23 10 ml PRN PRN Administration Flush Sodium Chloride 0 ml 05/01/23 08:33 Sodium Chloride 0.9 % 10 Ml Syringe IV-PUSH 04/30/24 08:32 PRN PRN Flush Documented By: Bradford Henriquez MD 05/01/23 0843 Signed By: <Electronically signed by Bradford Henriquez MD> 05/01/23 0854 [facility] Work Phone: [phone] Progress note Author Sofia Barber [facility] April 30, 2023 5:24pm Note Date/Time April 30, 2023 11 :59am [facility] [address] [place] [address] Hospitalist Progress Note Signed Patient: Ruddy Palmer MR#: [id number] : 1985 Acct:[id number] Age/Sex: 37 / M Adm Date: 3 Loc: Room: [address] [place] [address] Type: ADM IN Attending Dr: Sofia Barber MD Copies to: ~ Date of Service: 04/30/2023 Subjective Subjective Narrative: Assessment And Plan 37M with PMH of HTN, 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 Mild Fever noted, there was leukocytosis Mild lactic acidosis up to 2.5 was resolved with IVF CXR ED shows left basilar parenchymal densities Blood Cx pending Upper Respiratory Panel PCR (including covid19) is negative there is possible infiltrates in the CXR, therefore he was started on Empiric Abx Blood Cx E.Coli resume Metoprol O2 Supplement Abx: switch to Invanz Breathing Tx if needed ID consult Bacterial pneumonia - ruled out give the positive urine and E.Coli Bacteremia his illness likely caused by UTI rather pneumonia therefore Azithromycin IV was discontented ESRD Nephrology was consulted for the management of dialysis and ESRD complication recommendation appreciated Advance care planing i offered palliative consult to the mother given all his comorbidity who agree INTERVAL HPI:?As Above, Pt resting in bed. can't obtain any information form him Chronic diseases:?Unless mentioned Above, Essential home medications have been continued.? DVT Px:?Addressed Disposition:?To be determined Plan of care Discussed with:?the medical team, the patient mother Exam Physical Exam Vital Signs: Temp Pulse Resp BP Pulse Ox O2 Del Method O2 Flow Rate 37.6 C H 91 H 24 115/67 95 Nasal Cannula 3 04/30/23 08:00 04/30/23 08:10 04/30/23 08:10 04/30/23 08:00 04/30/23 08:00 04/30/23 08:10 04/30/23 08:10 Narrative: GEN: not Cooperative NECK: Supple, ? JVD LUNGS: diminished breathing sounds CV: S1S2 nl, ? M/R/G ABD: Soft, ND, + BS, ? HSM EXT: No edema in LE bilaterally NEURO: limited Objective Lab Results 04/30/23 05:50 04/30/23 05:50 Microbiology Results Microbiology 04/29/23 17:00 Straight Catheter Urine Culture - Preliminary Gram Negative Bacilli 04/28/23 13:23 Blood - Right Antecubital Blood Culture - Preliminary Escherichia coli (ESBL) 04/28/23 13:23 Blood - Right Antecubital Bacterial ID (NA Multiplex Assay) - Final 04/28/23 14:23 Blood - Right Antecubital Blood Culture - Preliminary Escherichia coli (ESBL) Meds Allergies and Active Meds Allergies ciprofloxacin [From Cipro] Allergy (Verified 04/28/23 13:10) Hives latex Allergy (Verified 04/28/23 13:10) Hives Active Meds: Active Medications Generic Name Dose Route Start Last Admin Trade Name Freq PRN Reason Stop Dose Admin Acetaminophen 650 mg 04/28/23 17:46 04/30/23 09:26 Acetaminophen 325 Mg Tablet PO 04/27/24 17:45 650 mg Q6H PRN Administration Pain 1-5 or fever Hydrocodone Bitart/Acetaminophen 1 tab 04/28/23 17:46 Hydrocodone/Acetaminophen 5-325 Mg Tablet PO Q4H PRN Pain Scale 4 - 6 Apixaban 2.5 mg 04/28/23 21:00 04/30/23 09:27 Apixaban 2.5 Mg Tablet PO 04/27/24 20:59 2.5 mg BID PENNY Administration Bumetanide 2 mg 04/29/23 09:00 04/30/23 09:27 Bumetanide 2 Mg Tablet PO 04/28/24 08:59 2 mg [id number] PENNY Administration Clonazepam 0.5 mg 04/28/23 22:00 04/30/23 09:27 Clonazepam 0.5 Mg Tablet PO 10/25/23 21:59 0.5 mg TID PENNY Administration Diltiazem HCl 30 mg 04/28/23 22:00 04/30/23 09:27 Diltiazem 30 Mg Tablet PO 04/27/24 21:59 30 mg TID PENNY Administration Sodium Chloride 1,000 mls @ 0 mls/hr 04/28/23 15:24 04/29/23 11:11 0.9% Sodium Chloride 1,000 Ml MISCELLANE 04/27/24 15:23 999 mls/hr .Q0M PRN Administration Dialysis As Directed Ertapenem 0.5 gm/ Sodium 100 mls @ 200 mls/hr 04/30/23 11:30 Chloride IV 04/29/24 11:29 Q24H PENNY Ipratropium [place] 0.5 mg 04/29/23 22:00 04/30/23 08:10 Ipratropium [place] 0.5 Mg/2.5 Ml Vial.Neb INHALATION 04/28/24 21:59 0.5 mg QID PENNY Administration Levalbuterol HCl 1.25 mg 04/29/23 22:00 04/30/23 08:09 Levalbuterol Hcl *Nf* 1.25 Mg/3 Ml Vial.Neb INHALATION 04/28/24 21:59 1.25 mg QID PENNY Administration Protocol Lidocaine/Prilocaine 1 applic 04/28/23 17:45 Lidocaine-Prilocaine Cr 2.5-2.5% 5 Gm Tube TOPICAL 04/27/24 17:44 ONCE PRN Dialysis Metoprolol Tartrate 25 mg 04/28/23 21:00 04/28/23 21:28 Metoprolol Tartrate 25 Mg Tablet PO 04/27/24 20:59 25 mg BID PENNY Administration Non-Formulary Medication 1 cap 04/28/23 17:45 Dextromethorphan-Quinidine [Nuedexta] PO 04/27/24 17:44 Q12H PENNY Ondansetron HCl 4 mg 04/28/23 17:46 Ondansetron 4 Mg/2 Ml Vial IV-PUSH 04/27/24 17:45 Q6H PRN Nausea And Vomiting Pantoprazole Sodium 40 mg 04/29/23 09:00 04/30/23 09:27 Pantoprazole 40 Mg Tablet. PO 04/28/24 08:59 40 mg DAILY PENNY Administration Paricalcitol 2 mcg 04/29/23 09:05 04/29/23 11:11 Paricalcitol 10 Mcg/2 Ml Vial IV-PUSH 05/04/24 09:04 2 mcg PRN PRN Administration Dialysis Potassium Chloride 40 meq 04/28/23 17:46 Potassium Chloride Er 20 Meq Tab.Er.Prt PO 04/27/24 17:45 DAILY PRN Hypokalemia Sildenafil Citrate 20 mg 04/28/23 22:00 04/30/23 09:27 Sildenafil Citrate 20 Mg Tablet PO 04/27/24 21:59 20 mg TID PENNY Administration Sodium Chloride 0 ml 04/28/23 13:04 04/28/23 16:23 Sodium Chloride 0.9 % 10 Ml Syringe IV-PUSH 04/27/24 13:03 10 ml PRN PRN Administration Flush Sodium Chloride 0 ml 04/28/23 15:24 04/29/23 12:39 Sodium Chloride 0.9 % 10 Ml Syringe IV-PUSH 04/27/24 15:23 10 ml PRN PRN Administration Flush Documented By: Sofia Barber MD 04/30/23 1151 Signed By: <Electronically signed by Sofia Barber MD> 04/30/23 1721 [facility] Work Phone: [phone] Progress note Author Melina Garcia [facility] April 30, 2023 11:00am Note Date/Time April 30, 2023 10 :43am [facility] [address] [place] [address] Nephrology Progress Note Signed Patient: Ruddy Palmer MR#: [id number] : 1985 Acct:[id number] Age/Sex: 37 / M Adm Date: 3 Loc: Room: [address] [place] [address] Type: ADM IN Attending Dr: Sofia Barber MD Copies to: ~ Date of Service: 04/30/2023 Subjective Subjective Narrative: This is a 37-year-old male with a medical history of hypertension, cerebral palsy, COPD, pulm hypertension, ESRD, PE, anemia of renal disease and secondary hyperparathyroidism was brought into the emergency room for fever and hypotension. He is a poor historian most of the history was taken from patient's chart and the patient's mother. I called the patient's mother and shetold me patient started running fever since Monday night and had a fever of 102. He started having mild cough yesterday. He went for a his dialysis yesterday and was noticed to have a hypotension so he was sent to the emergency room for evaluation. Mother reported patient has a ESRD for 2 years after he had a septic shock and required dialysis. She reported that he was seen by the milk driver many years ago when he was found to have a solitary kidney. Patient currently goes to the [facility] twice a week Monday and Monday schedule. He currently has IV fistula as a dialysis access. Mother reported that patient still makes urine but he he is incontinent. Nephrology is consulted forESRD management during the hospital stay. Patient had short session of dialysisyesterday and again having as additional session today due to his frail condition. Interval history Patient was seen and examined at bedside. He had a dialysis yesterday toleratedwell. His blood pressures improved. Leukocytosis trending down but has a persistent thrombocytopenia. His blood culture is positive for a ESBL E. coli. Urine cultures are also positive for gram-negative bacilli. He was on Zithromaxand ceftriaxone which was just changed to ertapenem today. Exam Physical Exam Vital Signs: Temp Pulse Resp BP Pulse Ox O2 Del Method O2 Flow Rate 99.7 F H 91 H 24 115/67 95 Nasal Cannula 3 04/30/23 08:00 04/30/23 08:10 04/30/23 08:10 04/30/23 08:00 04/30/23 08:00 04/30/23 08:10 04/30/23 08:10 Narrative: General: Appears comfortable and not in distress Heart: S1-S2, no rub Lung: Bilateral air entry, no wheezing or crackles Abdomen: Soft, positive bowel sounds Extremities: No edema, no cyanosis Head: Atraumatic, normocephalic Ear: No external ear redness or tenderness Eyes: No pallor or redness Neck: No JVD or visible mass Skin: No rashes , warm to touch 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: A 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, nonverbal and 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 or follows commands Musculoskeletal: No joint swelling or limitation of movement Objective Intake and Output I&O: Intake & Output 04/27/23 04/28/23 04/29/23 04/30/23 23:59 23:59 23:59 23:59 Intake Total 1650 / 1650 560 / 560 Output Total 488 / 488 500 / 500 Balance 1162 / 1162 60 / 60 Weight 63.7 kg 63.4 kg 62.7 kg Meds and Allergies Meds: Active Medications Acetaminophen (Acetaminophen 325 Mg Tablet) 650 mg PO Q6H PRN PRN Reason: Pain 1-5 or fever Stop: 04/27/24 17:45 Last Admin: 04/30/23 09:26 Dose: 650 mg Hydrocodone Bitart/Acetaminophen (Hydrocodone/Acetaminophen 5-325 Mg Tablet) 1 tab PO Q4H PRN PRN Reason: Pain Scale 4 - 6 Apixaban (Apixaban 2.5 Mg Tablet) 2.5 mg PO BID [facility] Stop: 04/27/24 20:59 Last Admin: 04/30/23 09:27 Dose: 2.5 mg Bumetanide (Bumetanide 2 Mg Tablet) 2 mg PO [id number]@0900 [facility] Stop: 04/28/24 08:59 Last Admin: 04/30/23 09:27 Dose: 2 mg Clonazepam (Clonazepam 0.5 Mg Tablet) 0.5 mg PO TID [facility] Stop: 10/25/23 21:59 Last Admin: 04/30/23 09:27 Dose: 0.5 mg Diltiazem HCl (Diltiazem 30 Mg Tablet) 30 mg PO TID [facility] Stop: 04/27/24 21:59 Last Admin: 04/30/23 09:27 Dose: 30 mg Sodium Chloride (0.9% Sodium Chloride 1,000 Ml) 1,000 mls @ 0 mls/hr MISCELLANE.Q0M PRN PRN Reason: Dialysis Stop: 04/27/24 15:23 Last Admin: 04/29/23 11:11 Dose: 999 mls/hr Azithromycin (Zithromax) 500 mg in 250 mls @ 250 mls/hr IV Q24H [facility] Last Admin: 04/29/23 13:51 Dose: 250 mls/hr Ceftriaxone Sodium (Rocephin) 2 gm in 50 mls @ 100 mls/hr IV Q24H [facility] Last Admin: 04/29/23 13:49 Dose: 100 mls/hr Ipratropium [place] (Ipratropium [place] 0.5 Mg/2.5 Ml Vial.Kelsey) 0.5 mg INHALATION QID [facility] Stop: 04/28/24 21:59 Last Admin: 04/30/23 08:10 Dose: 0.5 mg Levalbuterol HCl (Levalbuterol Hcl *Nf* 1.25 Mg/3 Ml Vial.Kelsey) 1.25 mg INHALATION QID [facility]; Protocol Stop: 04/28/24 21:59 Last Admin: 04/30/23 08:09 Dose: 1.25 mg Lidocaine/Prilocaine (Lidocaine-Prilocaine Cr 2.5-2.5% 5 Gm Tube) 1 applic TOPICAL ONCE PRN PRN Reason: Dialysis Stop: 04/27/24 17:44 Metoprolol Tartrate (Metoprolol Tartrate 25 Mg Tablet) 25 mg PO BID [facility] Stop: 04/27/24 20:59 Last Admin: 04/28/23 21:28 Dose: 25 mg Non-Formulary Medication (Dextromethorphan-Quinidine [Nuedexta]) 1 cap PO Q12H [facility] Stop: 04/27/24 17:44 Ondansetron HCl (Ondansetron 4 Mg/2 Ml Vial) 4 mg IV-PUSH Q6H PRN PRN Reason: Nausea And Vomiting Stop: 04/27/24 17:45 Pantoprazole Sodium (Pantoprazole 40 Mg Tablet.) 40 mg PO DAILY [facility] Stop: 04/28/24 08:59 Last Admin: 04/30/23 09:27 Dose: 40 mg Paricalcitol (Paricalcitol 10 Mcg/2 Ml Vial) 2 mcg IV-PUSH PRN PRN PRN Reason: Dialysis Stop: 05/04/24 09:04 Last Admin: 04/29/23 11:11 Dose: 2 mcg Potassium Chloride (Potassium Chloride Er 20 Meq Tab.Er.Prt) 40 meq PO DAILY PRN PRN Reason: Hypokalemia Stop: 04/27/24 17:45 Sildenafil Citrate (Sildenafil Citrate 20 Mg Tablet) 20 mg PO TID [facility] Stop: 04/27/24 21:59 Last Admin: 04/30/23 09:27 Dose: 20 mg Sodium Chloride (Sodium Chloride 0.9 % 10 Ml Syringe) 0 ml IV-PUSH PRN PRN PRN Reason: Flush Stop: 04/27/24 13:03 Last Admin: 04/28/23 16:23 Dose: 10 ml Sodium Chloride (Sodium Chloride 0.9 % 10 Ml Syringe) 0 ml IV-PUSH PRN PRN PRN Reason: Flush Stop: 04/27/24 15:23 Last Admin: 04/29/23 12:39 Dose: 10 ml Allergies ciprofloxacin [From Cipro] Allergy (Verified 04/28/23 13:10) Hives latex Allergy (Verified 04/28/23 13:10) Hives Results Labs 04/30/23 05:50 04/30/23 05:50 Labs: 04/29/23 04/30/23 17:00 05:50 BUN 43 H Creatinine 4.28 H D Urine Color [place] A Urine Appearance Turbid A Urine pH 6.0 Ur Specific [place] 1.015 Urine Protein 300 H Urine Glucose (UA) Normal Urine Ketones Negative Urine Occult Blood 3+ H Urine Nitrite Positive H Ur Leukocyte Esterase 4+ H Urine RBC 20-49 H Urine WBC Innumerable H Urine Bacteria 4+ H Radiology Impressions Impressions - last 24 hours: Any impression(s) listed above is documentation that was entered by the reading physician into a diagnostic report(s) for Ruddy Palmer. I have reviewed the report(s) and am incorporating any findings in the treatment plan of this patient where applicable. A&P - Nephrology Assessment/Plan (1) Sepsis associated hypotension: Plan: He was presented with fever leukocytosis and hypertension. His blood culture positive for E. coli bacteremia. Currently on IV antibiotics. (2) ESRD (end stage renal disease): Plan: He has a ESRD after [facility] in setting of sepsis. He has been on dialysis for 2 years and currently goes to the [facility] twice a week on Monday schedule (3) E coli bacteremia: Plan: He has a E. coli bacteremia due to the unclear etiology. Differential diagnosesare endocarditis versus UTI. His urine culture is positive for gram-negative bacilli. Graft site looks good with no sign of infection. (4) Anemia of renal disease: Plan: Hemoglobin is below the goal. He receives Mircera with dialysis. (5) Secondary hyperparathyroidism: Plan: He has a secondary hyperparathyroidism and currently receives IV Hectorol with dialysis. Plan * No need for dialysis today. Next dialysis will be tomorrow. * Blood cultures positive for ESBL. Agreed to change antibiotic to ertapenem * Consult ID due to the bacteremia. * Patient still makes urine as per the mother. Continue Bumex on nondialysis day. * Will give IV Zemplar with dialysis. * Check renal function daily. * Monitor platelets closely and stop Eliquis if patient's platelet continue to drop Documented By: Melina Garcia MD 04/30/23 1036 Signed By: <Electronically signed by Melina Garcia MD> 04/30/23 1100 [facility] Work Phone: [phone]) 308-523308-27-2023 Progress note Author Sofia Barber [facility] April 30, 2023 1:33am Note Date/Time April 29, 2023 4: 14pm [facility] [address] [place] [address] Hospitalist Progress Note Signed Patient: Ruddy Palmer MR#: [id number] : 1985 Acct:[id number] Age/Sex: 37 / M Adm Date: 3 Loc: Room: [address] [place] [address] Type: ADM IN Attending Dr: Sofia Barber MD Copies to: ~ Date of Service: 04/29/2023 Subjective Subjective Narrative: Assessment And Plan 37M with PMH of HTN, 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 Mild Fever noted, there leukocytosis and hypoxia. also given the patient can't give any history UTI can't be ruled out Mild lactic acidosis up to 2.5 was resolved with IVF CXR ED shows left basilar parenchymal densities Blood Cx pending Upper Respiratory Panel PCR (including covid19) is negative there is possible infiltrates in the CXR, therefore he was started on Empiric Abx Blood Cx E.Coli Hold Metoprol O2 Supplement Empiric Abx: Ceftriaxone (switch to 2g daily) and Azithromycin IV Breathing Tx if needed Agree with ID consult ESRD Nephrology was consulted for the management of dialysis and ESRD complication recommendation appreciated INTERVAL HPI:?As Above, Pt resting in bed. Chronic diseases:?Unless mentioned Above, Essential home medications have been continued.? DVT Px:?Addressed Disposition:?To be determined Plan of care Discussed with:?the medical team, the patient mother Exam Physical Exam Vital Signs: Temp Pulse Resp BP Pulse Ox O2 Del Method O2 Flow Rate 36.5 C 90 20 112/61 92 L Nasal Cannula 3 04/29/23 12:59 04/29/23 15:53 04/29/23 15:53 04/29/23 12:59 04/29/23 12:59 04/29/23 15:53 04/29/23 15:53 Narrative: GEN: not Cooperative NECK: Supple, ? JVD LUNGS: diminished breathing sounds. normal respiratory effort. CV: S1S2 nl, ? M/R/G ABD: Soft, ND, + BS,? HSM EXT: No edema in LE bilaterally NEURO: limited Objective Lab Results 04/29/23 05:41 04/29/23 05:41 Microbiology Results Microbiology 04/28/23 14:23 Blood - Right Antecubital Blood Culture - Preliminary Escherichia coli 04/28/23 13:23 Blood - Right Antecubital Blood Culture - Preliminary Escherichia coli 04/28/23 13:23 Blood - Right Antecubital Bacterial ID (NA Multiplex Assay) - Final Meds Allergies and Active Meds Allergies ciprofloxacin [From Cipro] Allergy (Verified 04/28/23 13:10) Hives latex Allergy (Verified 04/28/23 13:10) Hives Active Meds: Active Medications Generic Name Dose Route Start Last Admin Trade Name Nehemias PRN Reason Stop Dose Admin Acetaminophen 650 mg 04/28/23 17:46 04/29/23 03:46 Acetaminophen 325 Mg Tablet PO 04/27/24 17:45 650 mg Q6H PRN Administration Pain 1-5 or fever Hydrocodone Bitart/Acetaminophen 1 tab 04/28/23 17:46 Hydrocodone/Acetaminophen 5-325 Mg Tablet PO Q4H PRN Pain Scale 4 - 6 Apixaban 2.5 mg 04/28/23 21:00 04/29/23 13:51 Apixaban 2.5 Mg Tablet PO 04/27/24 20:59 2.5 mg BID PENNY Administration Bumetanide 2 mg 04/29/23 09:00 04/29/23 13:55 Bumetanide 2 Mg Tablet PO 04/28/24 08:59 Not Given [id number]@0900 PENNY Clonazepam 0.5 mg 04/28/23 22:00 04/29/23 13:50 Clonazepam 0.5 Mg Tablet PO 10/25/23 21:59 0.5 mg TID PENNY Administration Diltiazem HCl 30 mg 04/28/23 22:00 04/29/23 13:51 Diltiazem 30 Mg Tablet PO 04/27/24 21:59 30 mg TID PENNY Administration Sodium Chloride 1,000 mls @ 0 mls/hr 04/28/23 15:24 04/29/23 11:11 0.9% Sodium Chloride 1,000 Ml MISCELLANE 04/27/24 15:23 999 mls/hr .Q0M PRN Administration Dialysis As Directed Azithromycin 500 mg in 250 mls @ 250 mls/hr 04/29/23 13:00 04/29/23 13:51 Zithromax IV 250 mls/hr Q24H PENNY Administration Ceftriaxone Sodium 2 gm in 50 mls @ 100 mls/hr 04/29/23 12:00 04/29/23 13:49 Rocephin IV 100 mls/hr Q24H PENNY Administration Ipratropium [place] 0.5 mg 04/29/23 08:00 04/29/23 15:47 Ipratropium [place] 0.5 Mg/2.5 Ml Vial.Neb INHALATION 04/28/24 07:59 0.5 mg Q8H PENNY Administration Levalbuterol HCl 1.25 mg 04/29/23 08:00 04/29/23 15:47 Levalbuterol Hcl *Nf* 1.25 Mg/3 Ml Vial.Neb INHALATION 04/28/24 07:59 1.25 mg Q8H PENNY Administration Protocol Lidocaine/Prilocaine 1 applic 04/28/23 17:45 Lidocaine-Prilocaine Cr 2.5-2.5% 5 Gm Tube TOPICAL 04/27/24 17:44 ONCE PRN Dialysis Metoprolol Tartrate 25 mg 04/28/23 21:00 04/28/23 21:28 Metoprolol Tartrate 25 Mg Tablet PO 04/27/24 20:59 25 mg BID PENNY Administration Non-Formulary Medication 1 cap 04/28/23 17:45 Dextromethorphan-Quinidine [Nuedexta] PO 04/27/24 17:44 Q12H PENNY Ondansetron HCl 4 mg 04/28/23 17:46 Ondansetron 4 Mg/2 Ml Vial IV-PUSH 04/27/24 17:45 Q6H PRN Nausea And Vomiting Pantoprazole Sodium 40 mg 04/29/23 09:00 04/29/23 13:51 Pantoprazole 40 Mg Tablet. PO 04/28/24 08:59 40 mg DAILY PENNY Administration Paricalcitol 2 mcg 04/29/23 09:05 04/29/23 11:11 Paricalcitol 10 Mcg/2 Ml Vial IV-PUSH 05/04/24 09:04 2 mcg PRN PRN Administration Dialysis Potassium Chloride 40 meq 04/28/23 17:46 Potassium Chloride Er 20 Meq Tab.Er.Prt PO 04/27/24 17:45 DAILY PRN Hypokalemia Sildenafil Citrate 20 mg 04/28/23 22:00 04/29/23 13:51 Sildenafil Citrate 20 Mg Tablet PO 04/27/24 21:59 20 mg TID PENNY Administration Sodium Chloride 0 ml 04/28/23 13:04 04/28/23 16:23 Sodium Chloride 0.9 % 10 Ml Syringe IV-PUSH 04/27/24 13:03 10 ml PRN PRN Administration Flush Sodium Chloride 0 ml 04/28/23 15:24 04/29/23 12:39 Sodium Chloride 0.9 % 10 Ml Syringe IV-PUSH 04/27/24 15:23 10 ml PRN PRN Administration Flush Documented By: Sofia Barber MD 04/29/23 1612 Signed By: <Electronically signed by Sofia Barber MD> 04/30/23 0133 [facility] Work Phone: [phone]) [phone] Consult note Author Melina Garcia [facility] April 29, 2023 10:48am Note Date/Time April 29, 2023 10 :05am [facility] [address] [place] [address] Nephrology Consult Note Signed Patient: Ruddy Palmer MR#: [id number] : 1985 Acct:[id number] Age/Sex: 37 / M Adm Date: 3 Loc: Room: [address] [place] [address] Type: ADM IN Attending Dr: Sofia Barber MD Copies to: MD Denis Faulkner MD Marwan Wassouf, MD~ Providers Consult Date: 04/29/23 Requesting Provider: Sofia Barber MD Primary Care Provider: Denis Melvin MD HPI Reason for Consult: ESRD management History of Present Illness: This is a 37-year-old male with a medical history of hypertension, cerebral palsy, COPD, pulm hypertension, ESRD, PE, anemia of renal disease and secondary hyperparathyroidism was brought into the emergency room for fever and hypotension. He is a poor historian most of the history was taken from patient'schart and the patient's mother. I called the patient's mother and she told me patient started running fever since Monday night and had a fever of 102. Hestarted having mild cough yesterday. He went for a his dialysis yesterday and was noticed to have a hypotension so he was sent to the emergency room for evaluation. Mother reported patient has a ESRD for 2 years after he had a septic shock and required dialysis. She reported that he was seen by the milk driver many years ago when he was found to have a solitary kidney. Patient currently goes to the [facility] twice a week Monday and Monday schedule. He currently has IV fistula as a dialysis access. Mother reported that patient still makes urine but he he is incontinent. Nephrology is consulted for ESRD management during the hospital stay. Patient had short session of dialysis yesterday and again having as additional session today due to his frail condition. Patient was seen and examined at bedside during hemodialysis. He isrelatively hypertensive. His antihypertensive medications from home are on hold. Review of Systems Review of Systems Unobtainable due to mental status [facility] Medical History (Updated 04/29/23 @ 10:27 by Melina Garcia MD) Adult hyaline membrane disease Asthma Blind Cerebral palsy Cystic BPD (bronchopulmonary dysplasia) Hearing impaired Hypertension Non-verbal learning disorder Panacinar emphysema Pulmonary hypertension Social History Smoking Status: Unknown if ever smoked Substance Use Type: Unknown Meds Medications & Allergies Allergies ciprofloxacin [From Cipro] Allergy (Verified 04/28/23 13:10) Hives latex Allergy (Verified 04/28/23 13:10) Hives Home Medications apixaban 2.5 mg tablet (Eliquis) 2.5 mg PO BID 04/28/23 [History Confirmed 04/28/23] bumetanide 2 mg tablet 2 mg PO QAM 04/28/23 [History Confirmed 04/28/23] clonazepam 0.5 mg tablet 0.5 mg PO TID 04/28/23 [History Confirmed 04/28/23] dextromethorphan 20 mg-quinidine 10 mg capsule (Nuedexta) 1 cap PO Q12H 04/28/23[History Confirmed 04/28/23] diltiazem HCl 30 mg tablet 30 mg PO TID 04/28/23 [History Confirmed 04/28/23] lidocaine-prilocaine 2.5 %-2.5 % topical cream 1 applic topical ONCE 04/28/23 [History Confirmed 04/28/23] metoprolol tartrate 25 mg tablet 25 mg PO BID 04/28/23 [History Confirmed 04/28/23] omeprazole 20 mg tablet,delayed release 20 mg PO DAILY 04/28/23 [History Confirmed 04/28/23] sildenafil (pulm.hypertension) 20 mg tablet 20 mg PO TID 04/28/23 [History Confirmed 04/28/23] vitamin B complex-vitamin C 100 mg-folic acid 1 mg tablet (Dialyvite) 1 tab PO DAILY 04/28/23 [History Confirmed 04/28/23] ipratropium bromide 0.02 % solution for inhalation 2.5 ml inhalation Q8H 04/29/23 [History Confirmed 04/29/23] levalbuterol HCl 1.25 mg/3 mL solution for nebulization 1.25 mg inhalation Q8H 04/29/23 [History Confirmed 04/29/23] Active Medications: Active Medications Acetaminophen (Acetaminophen 325 Mg Tablet) 650 mg PO Q6H PRN PRN Reason: Pain 1-5 or fever Stop: 04/27/24 17:45 Last Admin: 04/29/23 03:46 Dose: 650 mg Hydrocodone Bitart/Acetaminophen (Hydrocodone/Acetaminophen 5-325 Mg Tablet) 1 tab PO Q4H PRN PRN Reason: Pain Scale 4 - 6 Apixaban (Apixaban 2.5 Mg Tablet) 2.5 mg PO BID [facility] Stop: 04/27/24 20:59 Last Admin: 04/28/23 21:28 Dose: 2.5 mg Bumetanide (Bumetanide 2 Mg Tablet) 2 mg PO [id number]@0900 [facility] Stop: 04/28/24 08:59 Clonazepam (Clonazepam 0.5 Mg Tablet) 0.5 mg PO TID [facility] Stop: 10/25/23 21:59 Last Admin: 04/29/23 09:13 Dose: Not Given Diltiazem HCl (Diltiazem 30 Mg Tablet) 30 mg PO TID [facility] Stop: 04/27/24 21:59 Last Admin: 04/29/23 09:13 Dose: Not Given Sodium Chloride (0.9% Sodium Chloride 1,000 Ml) 1,000 mls @ 0 mls/hr MISCELLANE.Q0M PRN PRN Reason: Dialysis Stop: 04/27/24 15:23 Last Infusion: 04/28/23 16:46 Dose: Infused Ceftriaxone Sodium (Rocephin) 1 gm in 50 mls @ 100 mls/hr IV Q24H [facility] Azithromycin (Zithromax) 500 mg in 250 mls @ 250 mls/hr IV Q24H [facility] Ipratropium [place] (Ipratropium [place] 0.5 Mg/2.5 Ml Vial.Neb) 0.5 mg INHALATION Q8H [facility] Stop: 04/28/24 07:59 Last Admin: 04/29/23 08:01 Dose: 0.5 mg Levalbuterol HCl (Levalbuterol Hcl *Nf* 1.25 Mg/3 Ml Vial.Kelsey) 1.25 mg INHALATION Q8H [facility]; Protocol Stop: 04/28/24 07:59 Last Admin: 04/29/23 08:01 Dose: 1.25 mg Lidocaine/Prilocaine (Lidocaine-Prilocaine Cr 2.5-2.5% 5 Gm Tube) 1 applic TOPICAL ONCE PRN PRN Reason: Dialysis Stop: 04/27/24 17:44 Metoprolol Tartrate (Metoprolol Tartrate 25 Mg Tablet) 25 mg PO BID [facility] Stop: 04/27/24 20:59 Last Admin: 04/28/23 21:28 Dose: 25 mg Non-Formulary Medication (Dextromethorphan-Quinidine [Nuedexta]) 1 cap PO Q12H [facility] Stop: 04/27/24 17:44 Ondansetron HCl (Ondansetron 4 Mg/2 Ml Vial) 4 mg IV-PUSH Q6H PRN PRN Reason: Nausea And Vomiting Stop: 04/27/24 17:45 Pantoprazole Sodium (Pantoprazole 40 Mg Tablet.) 40 mg PO DAILY [facility] Stop: 04/28/24 08:59 Paricalcitol (Paricalcitol 10 Mcg/2 Ml Vial) 2 mcg IV-PUSH PRN PRN PRN Reason: Dialysis Stop: 05/04/24 09:04 Potassium Chloride (Potassium Chloride Er 20 Meq Tab.Er.Prt) 40 meq PO DAILY PRN PRN Reason: Hypokalemia Stop: 04/27/24 17:45 Sildenafil Citrate (Sildenafil Citrate 20 Mg Tablet) 20 mg PO TID [facility] Stop: 04/27/24 21:59 Last Admin: 04/29/23 09:12 Dose: Not Given Sodium Chloride (Sodium Chloride 0.9 % 10 Ml Syringe) 0 ml IV-PUSH PRN PRN PRN Reason: Flush Stop: 04/27/24 13:03 Last Admin: 04/28/23 16:23 Dose: 10 ml Sodium Chloride (Sodium Chloride 0.9 % 10 Ml Syringe) 0 ml IV-PUSH PRN PRN PRN Reason: Flush Stop: 04/27/24 15:23 Exam Physical Exam Vital Signs: Temp Pulse Resp BP Pulse Ox O2 Del Method O2 Flow Rate 98.3 F 85 20 99/59 L 93 L Nasal Cannula 3 04/29/23 08:00 04/29/23 10:01 04/29/23 08:08 04/29/23 10:01 04/29/23 08:00 04/29/23 08:02 04/29/23 08:02 Narrative: General: Appears comfortable and not in distress Heart: S1-S2, no rub Lung: Bilateral air entry, no wheezing or crackles Abdomen: Soft, positive bowel sounds Extremities: No edema, no cyanosis Head: Atraumatic, normocephalic Ear: No external ear redness or tenderness Eyes: No pallor or redness Neck: No JVD or visible mass Skin: No rashes , warm to touch 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 Minor interstitial changes with left basilar parenchymal densities suggesting subtle infiltrate/atelectasis. Impression dictated by: Rojas Navarrete M.D.04/28/2023 2:05 PM Dictation Location: [place] [address] Any impression(s) listed above is documentation that was entered by the reading physician into a diagnostic report(s) for Ruddy Palmre. I have reviewed the report(s) and am incorporating any findings in the treatment plan of this patient where applicable. A&P - Nephrology Assessment/Plan (1) Sepsis associated hypotension: Plan: He was presented with a fever leukocytosis and hypertension. His blood culture positive for E. coli bacteremia. Currently on IV antibiotics. (2) ESRD (end stage renal disease): Plan: He has a ESRD after [facility] in setting of sepsis. He has been on dialysis for 2 years and currently goes to the [facility] twice a week on Monday schedule (3) E coli bacteremia: Plan: He has a E. coli bacteremia due to the unclear etiology. Differential diagnoses are endocarditis versus UTI or graft infection. (4) Anemia of renal disease: Plan: Hemoglobin is below the goal. He receives Mircera with dialysis. (5) Secondary hyperparathyroidism: Plan: He has a secondary hyperparathyroidism and currently receives IV Hectorol with dialysis. Plan * Will do another session of dialysis today as he has only short session of dialysis yesterday. * Continue IV antibiotic and adjust as needed is on culture sensitivity. Pharmacy to dose medication. * Consult ID due to the bacteremia. * Patient still makes urine as per the mother. Continue Bumex on nondialysis day. * Will give IV Zemplar with dialysis. * Check renal function daily. * Thanks for the consult. We will continue follow with you. Please feel free to call us with any question. Documented By: Melina Garcia MD 04/29/23 1004 Signed By: <Electronically signed by Melina Garcia MD> 04/29/23 7[address] [facility] Work Phone: 1(107) 260-981608-26-2023 History and physical note Author Sofia Barber [facility] April 29, 2023 1:26am Note Date/Time April 28, 2023 5: 45pm [facility] [address] [place] [address] Hospitalist H&P Signed Patient: Ruddy Palmer MR#: [id number] : 1985 Acct:[id number] Age/Sex: 37 / M Adm Date: 3 Loc: Room: [address] [place] [address] Type: ADM IN Attending Dr: Sofia Barber MD Copies to: MD Sofia Rutledge MD~ HPI DATE OF EXAMINATION: 04/28/23 HISTORY OF PRESENT ILLNESS: This is a 37M with PMH of HTN, Cerebral Palsy, Blindness, Hearing impairment, COPD, Pulmonary HTN, ESRD (on HD), PE (on Eliquis) who presented with Hypotesionand admitted for the evaluation and treatment of suspected Bacterial Pneumonia The patient presented with hypotension prior to HD today and was subsequently sent to the ED for evaluation. The patient's mother reported that she had observed him coughing over the past two days, accompanied by a fever reaching upto 102F. The patient has been unable to communicate since childhood. ROS: Unable to obtain Assessment And Plan Possible Bacterial pneumonia He was noted with hypotension before his dialysis today. Mild Fever noted, thereleukocytosis, hypoxia, Mild lactic acidosis up to 2.5 was resolved with IVF CXR ED shows left basilar parenchymal densities Blood Cx pending Upper Respiratory Panel PCR (including covid19) is negative there is possible infiltrates in the CXR, therefore he was started on Empiric Abx Blood Cx pending O2 Supplement Empiric Abx: Ceftriaxone and Azithromycin IV Breathing Tx if needed ESRD Nephrology was consulted for the management of dialysis and ESRD complication EKG ED (i personally reviewed it) shows NSR@77 bpm no significant acute changes Chronic diseases:?Unless mentioned Above, Essential home medications have been continued.? DVT Px:?Addressed Code Status: DNRCCA, DNI, discussed with patient mother Plan of care Discussed with:?the medical team, the patient mother [facility] Medical History (Updated 04/28/23 @ 15:33 by Dre Cardoza MD) Adult hyaline membrane disease Asthma Blind Cerebral palsy Cystic BPD (bronchopulmonary dysplasia) ESRF (end stage renal failure) Hearing impaired Hypertension Non-verbal learning disorder Panacinar emphysema Pulmonary hypertension Social History Smoking Status: Unknown if ever smoked Substance Use Type: Unknown Meds Medications and Allergies Allergies ciprofloxacin [From Cipro] Allergy (Verified 04/28/23 13:10) Hives latex Allergy (Verified 04/28/23 13:10) Hives Home Medications apixaban 2.5 mg tablet (Eliquis) 2.5 mg PO BID 04/28/23 [History Confirmed 04/28/23] bumetanide 2 mg tablet 2 mg PO QAM 04/28/23 [History Confirmed 04/28/23] clonazepam 0.5 mg tablet 0.5 mg PO TID 04/28/23 [History Confirmed 04/28/23] dextromethorphan 20 mg-quinidine 10 mg capsule (Nuedexta) 1 cap PO Q12H 04/28/23[History Confirmed 04/28/23] diltiazem HCl 30 mg tablet 30 mg PO TID 04/28/23 [History Confirmed 04/28/23] ipratropium 20 mcg-albuterol 100 mcg/actuation mist for inhalation 1 puff inhalation Q4H 04/28/23 [History Confirmed 04/28/23] levalbuterol HCl 1.25 mg/3 mL solution for nebulization 2.5 mg inhalation Q4H 04/28/23 [History Confirmed 04/28/23] lidocaine-prilocaine 2.5 %-2.5 % topical cream 1 applic topical ONCE 04/28/23 [History Confirmed 04/28/23] metoprolol tartrate 25 mg tablet 25 mg PO BID 04/28/23 [History Confirmed 04/28/23] omeprazole 20 mg tablet,delayed release 20 mg PO DAILY 04/28/23 [History Confirmed 04/28/23] sildenafil (pulm.hypertension) 20 mg tablet 20 mg PO TID 04/28/23 [History Confirmed 04/28/23] vitamin B complex-vitamin C 100 mg-folic acid 1 mg tablet (Dialyvite) 1 tab PO DAILY 04/28/23 [History Confirmed 04/28/23] Exam Physical Exam Vital Signs: Temp Pulse Resp BP Pulse Ox O2 Del Method O2 Flow Rate 36.5 C 80 16 90/55 L 94 L Nasal Cannula 2 04/28/23 13:09 04/28/23 17:30 04/28/23 15:15 04/28/23 17:30 04/28/23 15:15 04/28/23 15:15 04/28/23 15:15 Narrative: GEN: not Cooperative NECK: Supple, ? JVD LUNGS: crackers in the right base no wheezing . normal respiratory effort. CV: S1S2 nl, ? M/R/G ABD: Soft, ND, + BS, ? rebound/guarding,? HSM EXT: No edema in LE bilaterally NEURO: limited Results Lab Results Labs: Laboratory Last Values Corrected WBC 19.9 X10E3/uL (4.1-10.5) H 04/28/23 13:23 Uncorrected WBC Count 19.9 x10E3/uL (4.1-10.5) H 04/28/23 13:23 RBC 3.40 X10E6/uL (3.90-5.60) L 04/28/23 13:23 Hgb 10.0 g/dL (13.0-17.0) L 04/28/23 13:23 Hct 31.6 % (38.8-50.0) L 04/28/23 13:23 MCV 92.8 fl (83.5-101) 04/28/23 13:23 MCH 29.4 pg (27.5-35.2) 04/28/23 13:23 MCHC 31.7 g/dL (32.5-35.6) L 04/28/23 13:23 RDW 13.8 % (12.0-14.8) 04/28/23 13:23 Plt Count 80 x10E3/uL (150-450) L 04/28/23 13:23 MPV 10.3 fl (6.6-10.1) H 04/28/23 13:23 Neut % (Auto) N/A 04/28/23 13:23 Lymph % (Auto) N/A 04/28/23 13:23 [place] % (Auto) N/A 04/28/23 13:23 Eos % (Auto) N/A 04/28/23 13:23 Baso % (Auto) N/A 04/28/23 13:23 Nucleat RBC Rel Count N/A 04/28/23 13:23 Neut # (Auto) N/A 04/28/23 13:23 Lymph # (Auto) N/A 04/28/23 13:23 [place] # (Auto) N/A 04/28/23 13:23 Eos # (Auto) N/A 04/28/23 13:23 Baso # (Auto) N/A 04/28/23 13:23 Band Neutrophils % 36 % (0-5) H 04/28/23 13:23 Lymphocytes % 2 % (18-42) L 04/28/23 13:23 Monocytes % 3 % (2-11) 04/28/23 13:23 Eosinophils % 1 % (1-3) 04/28/23 13:23 Basophils % 0 % (0-2) 04/28/23 13:23 Metamyelocytes % 5 % (0-0) H 04/28/23 13:23 Segmented Neutrophils 53 % (50-70) 04/28/23 13:23 Monocyte Dist Width 42.47 % (0.00-20.00) H 04/28/23 13:23 Platelet Estimate Decreased (Normal) 04/28/23 13:23 Plt Morphology Comment Normal (Normal) 04/28/23 13:23 RBC Morphology N/A 04/28/23 13:23 Hypochromasia Slight 04/28/23 13:23 Crenated Cell Slight 04/28/23 13:23 PT 14.4 Seconds (9.0-12.9) H 04/28/23 13:23 INR 1.2 04/28/23 13:23 APTT 36.0 Seconds (25.1-36.5) 04/28/23 13:23 PHA Creatinine Clear N/A 04/28/23 13:23 Sodium 128 mmol/L (136-145) L 04/28/23 13:23 Potassium 5.0 mmol/L (3.5-5.1) 04/28/23 13:23 Chloride 96 mmol/L (98-107) L 04/28/23 13:23 Carbon Dioxide 20.7 mmol/L (21.0-31.0) L 04/28/23 13:23 Anion Gap 16.3 mEq/L (6.0-15.0) H 04/28/23 13:23 BUN 98 mg/dL (7-25) H 04/28/23 13:23 Creatinine 6.75 mg/dL (0.70-1.30) H 04/28/23 13:23 Est GFR (CKD-EPI) 9.990 mL/Min 04/28/23 13:23 Glucose 97 mg/dL (70-100) 04/28/23 13:23 Lactic Acid 2.5 mmol/L (0.5-2.2) H* 04/28/23 13:23 Calcium 9.0 mg/dL (8.6-10.3) 04/28/23 13:23 Total Bilirubin 0.3 mg/dl (0.3-1.0) 04/28/23 13:23 AST 27 U/L (13-39) 04/28/23 13:23 ALT 27 U/L (7-52) 04/28/23 13:23 Alkaline Phosphatase 107 U/L (34-104) H 04/28/23 13:23 Total Creatine Kinase 398 U/L (30-223) H 04/28/23 13:23 Troponin I High Sens 24.4 pg/mL (0.0-20.0) H 04/28/23 13:23 Total Protein 6.0 gm/dL (6.4-8.9) L 04/28/23 13:23 Albumin 3.4 gm/dL (3.5-5.7) L 04/28/23 13:23 Globulin 2.6 gm/dL 04/28/23 13:23 Albumin/Globulin Ratio 1.3 04/28/23 13:23 TSH 3rd Generation 1.33 uIU/mL (0.45-5.33) 04/28/23 13:23 Assessment & Plan IP vs OBS Justification Based on differential dx, clinical care plan, and risk of adverse events, if untreated, in my clinical judgement this patient requires an acute care setting as: INPATIENT because of an expectation of an over 2 midnight stay. Estimated length of stay (# of days): 3 Documented By: Sofia Barber MD 04/28/23 [id number] Signed By: <Electronically signed by Sofia Barber MD> 04/29/23 0126 [facility] Work Phone: 1([phone]) 291-707508-25-2023 History and physical note Author Sofia Barber [facility] April 29, 2023 1:26am Note Date/Time April 28, 2023 5: 45pm [facility] [address] [place] [address] Hospitalist H&P Signed Patient: Ruddy Palmer MR#: [id number] : 1985 Acct:[id number] Age/Sex: 37 / M Adm Date: 3 Loc: Room: [address] [place] [address] Type: ADM IN Attending Dr: Sofia Barber MD Copies to: MD Sofia Rutledge MD~ HPI DATE OF EXAMINATION: 04/28/23 HISTORY OF PRESENT ILLNESS: This is a 37M with PMH of HTN, Cerebral Palsy, Blindness, Hearing impairment, COPD, Pulmonary HTN, ESRD (on HD), PE (on Eliquis) who presented with Hypotesionand admitted for the evaluation and treatment of suspected Bacterial Pneumonia The patient presented with hypotension prior to HD today and was subsequently sent to the ED for evaluation. The patient's mother reported that she had observed him coughing over the past two days, accompanied by a fever reaching upto 102F. The patient has been unable to communicate since childhood. ROS: Unable to obtain Assessment And Plan Possible Bacterial pneumonia He was noted with hypotension before his dialysis today. Mild Fever noted, thereleukocytosis, hypoxia, Mild lactic acidosis up to 2.5 was resolved with IVF CXR ED shows left basilar parenchymal densities Blood Cx pending Upper Respiratory Panel PCR (including covid19) is negative there is possible infiltrates in the CXR, therefore he was started on Empiric Abx Blood Cx pending O2 Supplement Empiric Abx: Ceftriaxone and Azithromycin IV Breathing Tx if needed ESRD Nephrology was consulted for the management of dialysis and ESRD complication EKG ED (i personally reviewed it) shows NSR@77 bpm no significant acute changes Chronic diseases:?Unless mentioned Above, Essential home medications have been continued.? DVT Px:?Addressed Code Status: DNRCCA, DNI, discussed with patient mother Plan of care Discussed with:?the medical team, the patient mother [facility] Medical History (Updated 04/28/23 @ 15:33 by Dre Cardoza MD) Adult hyaline membrane disease Asthma Blind Cerebral palsy Cystic BPD (bronchopulmonary dysplasia) ESRF (end stage renal failure) Hearing impaired Hypertension Non-verbal learning disorder Panacinar emphysema Pulmonary hypertension Social History Smoking Status: Unknown if ever smoked Substance Use Type: Unknown Meds Medications and Allergies Allergies ciprofloxacin [From Cipro] Allergy (Verified 04/28/23 13:10) Hives latex Allergy (Verified 04/28/23 13:10) Hives Home Medications apixaban 2.5 mg tablet (Eliquis) 2.5 mg PO BID 04/28/23 [History Confirmed 04/28/23] bumetanide 2 mg tablet 2 mg PO QAM 04/28/23 [History Confirmed 04/28/23] clonazepam 0.5 mg tablet 0.5 mg PO TID 04/28/23 [History Confirmed 04/28/23] dextromethorphan 20 mg-quinidine 10 mg capsule (Nuedexta) 1 cap PO Q12H 04/28/23[History Confirmed 04/28/23] diltiazem HCl 30 mg tablet 30 mg PO TID 04/28/23 [History Confirmed 04/28/23] ipratropium 20 mcg-albuterol 100 mcg/actuation mist for inhalation 1 puff inhalation Q4H 04/28/23 [History Confirmed 04/28/23] levalbuterol HCl 1.25 mg/3 mL solution for nebulization 2.5 mg inhalation Q4H 04/28/23 [History Confirmed 04/28/23] lidocaine-prilocaine 2.5 %-2.5 % topical cream 1 applic topical ONCE 04/28/23 [History Confirmed 04/28/23] metoprolol tartrate 25 mg tablet 25 mg PO BID 04/28/23 [History Confirmed 04/28/23] omeprazole 20 mg tablet,delayed release 20 mg PO DAILY 04/28/23 [History Confirmed 04/28/23] sildenafil (pulm.hypertension) 20 mg tablet 20 mg PO TID 04/28/23 [History Confirmed 04/28/23] vitamin B complex-vitamin C 100 mg-folic acid 1 mg tablet (Dialyvite) 1 tab PO DAILY 04/28/23 [History Confirmed 04/28/23] Exam Physical Exam Vital Signs: Temp Pulse Resp BP Pulse Ox O2 Del Method O2 Flow Rate 36.5 C 80 16 90/55 L 94 L Nasal Cannula 2 04/28/23 13:09 04/28/23 17:30 04/28/23 15:15 04/28/23 17:30 04/28/23 15:15 04/28/23 15:15 04/28/23 15:15 Narrative: GEN: not Cooperative NECK: Supple, ? JVD LUNGS: crackers in the right base no wheezing . normal respiratory effort. CV: S1S2 nl, ? M/R/G ABD: Soft, ND, + BS, ? rebound/guarding,? HSM EXT: No edema in LE bilaterally NEURO: limited Results Lab Results Labs: Laboratory Last Values Corrected WBC 19.9 X10E3/uL (4.1-10.5) H 04/28/23 13:23 Uncorrected WBC Count 19.9 x10E3/uL (4.1-10.5) H 04/28/23 13:23 RBC 3.40 X10E6/uL (3.90-5.60) L 04/28/23 13:23 Hgb 10.0 g/dL (13.0-17.0) L 04/28/23 13:23 Hct 31.6 % (38.8-50.0) L 04/28/23 13:23 MCV 92.8 fl (83.5-101) 04/28/23 13:23 MCH 29.4 pg (27.5-35.2) 04/28/23 13:23 MCHC 31.7 g/dL (32.5-35.6) L 04/28/23 13:23 RDW 13.8 % (12.0-14.8) 04/28/23 13:23 Plt Count 80 x10E3/uL (150-450) L 04/28/23 13:23 MPV 10.3 fl (6.6-10.1) H 04/28/23 13:23 Neut % (Auto) N/A 04/28/23 13:23 Lymph % (Auto) N/A 04/28/23 13:23 [place] % (Auto) N/A 04/28/23 13:23 Eos % (Auto) N/A 04/28/23 13:23 Baso % (Auto) N/A 04/28/23 13:23 Nucleat RBC Rel Count N/A 04/28/23 13:23 Neut # (Auto) N/A 04/28/23 13:23 Lymph # (Auto) N/A 04/28/23 13:23 [place] # (Auto) N/A 04/28/23 13:23 Eos # (Auto) N/A 04/28/23 13:23 Baso # (Auto) N/A 04/28/23 13:23 Band Neutrophils % 36 % (0-5) H 04/28/23 13:23 Lymphocytes % 2 % (18-42) L 04/28/23 13:23 Monocytes % 3 % (2-11) 04/28/23 13:23 Eosinophils % 1 % (1-3) 04/28/23 13:23 Basophils % 0 % (0-2) 04/28/23 13:23 Metamyelocytes % 5 % (0-0) H 04/28/23 13:23 Segmented Neutrophils 53 % (50-70) 04/28/23 13:23 Monocyte Dist Width 42.47 % (0.00-20.00) H 04/28/23 13:23 Platelet Estimate Decreased (Normal) 04/28/23 13:23 Plt Morphology Comment Normal (Normal) 04/28/23 13:23 RBC Morphology N/A 04/28/23 13:23 Hypochromasia Slight 04/28/23 13:23 Crenated Cell Slight 04/28/23 13:23 PT 14.4 Seconds (9.0-12.9) H 04/28/23 13:23 INR 1.2 04/28/23 13:23 APTT 36.0 Seconds (25.1-36.5) 04/28/23 13:23 PHA Creatinine Clear N/A 04/28/23 13:23 Sodium 128 mmol/L (136-145) L 04/28/23 13:23 Potassium 5.0 mmol/L (3.5-5.1) 04/28/23 13:23 Chloride 96 mmol/L (98-107) L 04/28/23 13:23 Carbon Dioxide 20.7 mmol/L (21.0-31.0) L 04/28/23 13:23 Anion Gap 16.3 mEq/L (6.0-15.0) H 04/28/23 13:23 BUN 98 mg/dL (7-25) H 04/28/23 13:23 Creatinine 6.75 mg/dL (0.70-1.30) H 04/28/23 13:23 Est GFR (CKD-EPI) 9.990 mL/Min 04/28/23 13:23 Glucose 97 mg/dL (70-100) 04/28/23 13:23 Lactic Acid 2.5 mmol/L (0.5-2.2) H* 04/28/23 13:23 Calcium 9.0 mg/dL (8.6-10.3) 04/28/23 13:23 Total Bilirubin 0.3 mg/dl (0.3-1.0) 04/28/23 13:23 AST 27 U/L (13-39) 04/28/23 13:23 ALT 27 U/L (7-52) 04/28/23 13:23 Alkaline Phosphatase 107 U/L (34-104) H 04/28/23 13:23 Total Creatine Kinase 398 U/L (30-223) H 04/28/23 13:23 Troponin I High Sens 24.4 pg/mL (0.0-20.0) H 04/28/23 13:23 Total Protein 6.0 gm/dL (6.4-8.9) L 04/28/23 13:23 Albumin 3.4 gm/dL (3.5-5.7) L 04/28/23 13:23 Globulin 2.6 gm/dL 04/28/23 13:23 Albumin/Globulin Ratio 1.3 04/28/23 13:23 TSH 3rd Generation 1.33 uIU/mL (0.45-5.33) 04/28/23 13:23 Assessment & Plan IP vs OBS Justification Based on differential dx, clinical care plan, and risk of adverse events, if untreated, in my clinical judgement this patient requires an acute care setting as: INPATIENT because of an expectation of an over 2 midnight stay. Estimated length of stay (# of days): 3 Documented By: Sofia Barber MD 04/28/23 3872 Signed By: <Electronically signed by Sofia Barber MD> 04/29/23 0126 [facility] Work Phone: [phone] 171-443406-01-2023 History of Present illness Narrative* Frida Doan RN - 02/02/2023 5:29 PM EDT All discharge instructions reviewed, questions answered, paper signed and given copy. Patient discharged per wheelchair with family and belongings. * Frida Doan RN - 02/02/2023 5:28 PM EDT Patient up walking with assistance, gait steady while up. * Frida Doan RN - 02/02/2023 4:14 PM EDT Patient returned to room. Post procedure recovery initiated. Patient assessment unchanged from before. Dressing to left arm is dry and intact no drainage noted. God thrill and bruit noted. * Frida Doan RN - 02/02/2023 3:10 PM EDT Patient taken to OR before admission completed * Frida Doan RN - 02/02/2023 2:55 PM EDT Patient admitted, consent signed and questions answered. Patient ready for procedure. Call light toreach with side rails up 2 of 2.. family at bedside with patient. History and physical needed. documented [facility] this [facility] Work Phone: [phone]) 810-855406-01-2023 Hospital Discharge instructions* Discharge Instructions* Naz Atkins DO - 02/02/2023 4:34 PM EDT May use fistula immediately for dialysis. Take tylenol as needed for pain. Follow up as needed with Dr. Alvarez. documented in [facility] encounterABRA[facility] [employer] Phone: 1([phone]) 269-955202-23-2023 History of Present illness Narrative* Fabby Vance RN - 10/27/2022 3:17 PM EST Discharged via WC. * Fabby Vance RN - 10/27/2022 3:05 PM EST Assisted with getting dressed. Took water and some pudding. * Fabby Vance RN - 10/27/2022 2:59 PM EST Discharge teaching completed with parents present. * Fabby Vance RN - 10/27/2022 2:41 PM EST Returned to [facility] post procedure at 1429. Family at bedside drsg at fistula site with gauze and cleartagederm overtop intact. * Fabby Vance RN - 10/27/2022 10:18 AM EST Patient admitted, consent signed by parents. all questions answered. Pt ready for procedure. Bed inlow position, call light to reach with side rails up 2 of 2. . Family at bedside with patient. Leftupper arm prepped appropriately. documented in this encounterLOVERING [facility]ALS[facility] Phone: [phone]) 116-269002-23-2023 Hospital Discharge instructions* Discharge Instructions* Fabby Vance RN - 10/27/2022 2:45 PM EST Discharge Date: Discharged To: Home RESUME ACTIVITY: WOUND CARE: Remove top/ clear dressing in 48 hours Remove steri strip dressing in 7 days BATHING: Ok to shower in 24 hrs. DRIVING: No driving while on pain medication Activity as tolerated without strenuous activities DIET: Ok to resume regular diet. SPECIAL INSTRUCTIONS: Call the Vascular office if you have a fever > 100 F, or if your incision becomes red, tender, or drains more than a small amount of clear fluid. Call / seek help if affected hand/arm becomes numb and cold, nailbeds turn blue and or severe pain to affected site. Call Vascular office for follow up appointment as needed. 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 Patient discharged per wheelchair with family and belongings. * Julianne Reese RN - 08/18/2022 10:54 AM EST Received post procedure to [facility] to room 3. Assessment obtained. Restrictions reviewed with patient. Post procedure pathway initiated. Left arm incision site soft , band aid dry and intact. No hematomanoted. Family at side. Patient without complaints. * Julianne Reese RN - 08/18/2022 9:11 AM EST Patient admitted, consent signed and questions answered. Patient ready for procedure. Call light toreach with side rails up 2 of 2. Family at bedside with patient. History and physical needs to be completed. documented in [facility] Phone: [phone] Hospital Discharge instructions* Discharge Instructions* Justyn Alvarez MD - 08/18/2022 10:48 AM EST Okay to use the left upper extremity AV graft for dialysis. documented in this encounterSent[facility] Phone: [phone] Hospital Discharge instructions* Instructions* Leana Sauceda RN - 02/04/2022 Dialysis can use tunnel cath. Fistula marked documented in this encounterSent[facility] Phone: [phone] History of Present illness Narrative* Leana Sauceda RN - 02/04/2022 1:15 PM EDT All discharge instructions explained to family. Patient discharged ambulatory with parents and belongings. * Leana Sauceda RN - 02/04/2022 12:[address] Love removes sutures at bedside, sandoval fistula site an repositions tunnel cath using sterile technique. Pt tolerates well. * Leana Sauceda RN - 02/04/2022 12:15 PM EDT Patient admitted, consent signed and questions answered. Patient ready for procedure. Call light toreach with side rails up 2 of 2.. Parents at bedside with patientPatient non verbal. Mother signs consent. History and physical complete. Dr Cruz and Dr Love in to see patient and parents. Tunnel cath accessed using sterile procedure for lab work and IV access.. documented in this [facility]AB[facility] [employer] Phone: [phone]) 729-985306-03-2022 Reason for visit Narrative* Auth/Cert Specialty Diagnoses / Procedures Referred By Osiris monreal Referred To Contact [facility] Commercial Credit Specialist [facility] [place] [address] [employer] [address] [place] [address] Referral ID Status Reason Start Date Expiration Date Visits Re quested Visits Authorized [id number] 1 1 [facility] Phone: 1(237) 859-623705-17-2022 History of Present illness Narrative* Tami Mcmahan RN - 01/18/2022 11:55 AM EDT Returned tp room 6 on PCC post op for recovery, sleeping soundly responds to strong verbal stimuli,simple mask cont. To o2 at 5l, sao2 100, vitals stable, family at bedside during recovery. * Tami Mcmahan RN - 01/18/2022 8:58 AM EDT Patient admitted, consent signed, all questions answered. Pt ready for procedure. Bed in low position, call light to reach with side rails up 2 of 2. familyat bedside with patient. * Bhavya Andrade RN - 01/18/2022 8:26 AM EDT Patient admitted with parents present as patient is nonverbal, consent signed and questions answered. Patient ready for procedure. Call light to reach with side rails up 2 of 2. Family at bedside with patient. History and physical completed. Anesthesia notified of admission. documented in this encounterSecant Therapeutics Phone: [phone] 789-663401-18-2019 Consult note Author Rojas No [facility] May 19, 2023 2:42pm Note Date/Time May 19, 2023 2:42pm [facility] [address] [place] [address] Vascular Surgery Consult Note Signed Patient: Ruddy Palmer MR#: [id number] : 1985 Acct:[id number] Age/Sex: 37 / M Adm Date: 3 Loc: Room: [address] [place] [address] Type: ADM IN Attending Dr: Rajendra Pierce MD Copies to: MD Rojas Rutledge MD Rafik Massouh, MD~ HPI Consult HPI Reason for consult: Inadequate left arm fistula History of present illness: Mr. Palmer is a 37 year old male with a left upper arm autologous fistula who dialyzes in [facility]. He generally gets intervention for his access in [place]. I was asked to examine his dialysis access today as it is quite pulsatile and the flows by ultrasound are diminished. cc:: CC: Rajendra Pierce MD Data of Consult Consult date: 05/19/2023 Requesting Physician: Rajendra Pierce MD [facility] Medical History A-V fistula LUE Adult hyaline membrane disease Asthma Blind Cerebral palsy Cystic BPD (bronchopulmonary dysplasia) ESRD (end stage renal disease) on dialysis M + F Hearing impaired Hypertension Non-verbal learning disorder Panacinar emphysema Pulmonary hypertension Surgical History H/O eye surgery Attempted to reattach retina x 1, 1984, 1985 H/O inguinal hernia repair 1984-right, 1985-left History of placement of ear tubes 1985, 1986 Social History Smoking Status: Never smoker Substance Use Type: None Social History Comments: Mother Allergies & Active Medications Medications and Allergies Allergies ciprofloxacin [From Cipro] Allergy (Verified 05/17/23 12:29) Hives latex Allergy (Verified 05/17/23 12:29) Hives Exam Physical Exam Vital Signs: Temp Pulse Resp BP Pulse Ox O2 Del Method O2 Flow Rate 97.6 F 66 20 147/83 H 100 BiPAP 3 05/19/23 13:29 05/19/23 13:29 05/19/23 13:29 05/19/23 13:29 05/19/23 13:29 05/19/23 13:29 05/19/23 09:00 FiO2 40 05/19/23 13:29 Narrative: Left upper arm access is pulsatile. There is a thrill proximally but no distal thrill. Results Labs 05/18/23 04:15 05/19/23 04:15 Labs: Laboratory Results - last 24 hr 05/18/23 05/19/23 14:56 04:15 Sample Site Right brachial ABG pH 7.21 L ABG pCO2 57.6 H* ABG pO2 90.1 ABG HCO3 22.5 L ABG Total CO2 24.2 ABG O2 Saturation 97.0 ABG O2 Content 6.9 ABG Base Excess -5.8 L Set Respiration Rate 14 FiO2 40 Tidal Volume 450 PEEP 5 Critical Value PHA Creatinine Clear 14.31 Sodium 140 D Potassium 4.3 Chloride 102 Carbon Dioxide 24.7 Anion Gap 17.6 H BUN 54 H Creatinine 6.70 H D Est GFR (CKD-EPI) 10.080 Glucose 87 Calcium 8.4 L Phosphorus 5.4 Albumin 3.2 L A&P - Vascular (1) Acute hypercapnic respiratory failure: Code(s): J96.02 - Acute respiratory failure with hypercapnia Status: Acute (2) E coli bacteremia: Code(s): R78.81 - Bacteremia; B96.20 - Unspecified Escherichia coli [E. coli] as the cause of diseases classified elsewhere Status: Acute (3) ESRD (end stage renal disease): Code(s): N18.6 - End stage renal disease Status: Inactive (4) Dialysis AV fistula malfunction: Plan: Based on his ultrasound and physical examination he warrants diagnostic fistulogram and intervention for his fistula. If he remains in the hospital over the weekend I will do this for him Monday. If he is discharged prior to that date it can be arranged as an outpatient through our office [facility] Code(s): T82.590A - Other mechanical complication of surgically created arteriovenous fistula, initial encounter Status: Acute Documented By: Rojas No MD 05/19/23 144 0 Signed By: <Electronically signed by MD Rojas No> 05/19/23 1442 [facility] Work Phone: Consult note Author Melina Garcia [facility] April 29, 2023 10:48am Note Date/Time April 29, 2023 10 :05am [facility] [address] [place] [address] Nephrology Consult Note Signed Patient: Ruddy Palmer MR#: [id number] : 1985 Acct:[id number] Age/Sex: 37 / M Adm Date: 3 Loc: Room: [address] [place] [address] Type: ADM IN Attending Dr: Sofia Barber MD Copies to: MD Denis Faulkner MD Marwan Wassouf, MD~ Providers Consult Date: 04/29/23 Requesting Provider: Sofia Barber MD Primary Care Provider: Denis Melvin MD HPI Reason for Consult: ESRD management History of Present Illness: This is a 37-year-old male with a medical history of hypertension, cerebral palsy, COPD, pulm hypertension, ESRD, PE, anemia of renal disease and secondary hyperparathyroidism was brought into the emergency room for fever and hypotension. He is a poor historian most of the history was taken from patient'schart and the patient's mother. I called the patient's mother and she told me patient started running fever since Monday night and had a fever of 102. Hestarted having mild cough yesterday. He went for a his dialysis yesterday and was noticed to have a hypotension so he was sent to the emergency room for evaluation. Mother reported patient has a ESRD for 2 years after he had a septic shock and required dialysis. She reported that he was seen by the milk driver many years ago when he was found to have a solitary kidney. Patient currently goes to the [facility] twice a week Monday and Monday schedule. He currently has IV fistula as a dialysis access. Mother reported that patient still makes urine but he he is incontinent. Nephrology is consulted for ESRD management during the hospital stay. Patient had short session of dialysis yesterday and again having as additional session today due to his frail condition. Patient was seen and examined at bedside during hemodialysis. He isrelatively hypertensive. His antihypertensive medications from home are on hold. Review of Systems Review of Systems Unobtainable due to mental status [facility] Medical History (Updated 04/29/23 @ 10:27 by Melina Garcia MD) Adult hyaline membrane disease Asthma Blind Cerebral palsy Cystic BPD (bronchopulmonary dysplasia) Hearing impaired Hypertension Non-verbal learning disorder Panacinar emphysema Pulmonary hypertension Social History Smoking Status: Unknown if ever smoked Substance Use Type: Unknown Meds Medications & Allergies Allergies ciprofloxacin [From Cipro] Allergy (Verified 04/28/23 13:10) Hives latex Allergy (Verified 04/28/23 13:10) Hives Home Medications apixaban 2.5 mg tablet (Eliquis) 2.5 mg PO BID 04/28/23 [History Confirmed 04/28/23] bumetanide 2 mg tablet 2 mg PO QAM 04/28/23 [History Confirmed 04/28/23] clonazepam 0.5 mg tablet 0.5 mg PO TID 04/28/23 [History Confirmed 04/28/23] dextromethorphan 20 mg-quinidine 10 mg capsule (Nuedexta) 1 cap PO Q12H 04/28/23[History Confirmed 04/28/23] diltiazem HCl 30 mg tablet 30 mg PO TID 04/28/23 [History Confirmed 04/28/23] lidocaine-prilocaine 2.5 %-2.5 % topical cream 1 applic topical ONCE 04/28/23 [History Confirmed 04/28/23] metoprolol tartrate 25 mg tablet 25 mg PO BID 04/28/23 [History Confirmed 04/28/23] omeprazole 20 mg tablet,delayed release 20 mg PO DAILY 04/28/23 [History Confirmed 04/28/23] sildenafil (pulm.hypertension) 20 mg tablet 20 mg PO TID 04/28/23 [History Confirmed 04/28/23] vitamin B complex-vitamin C 100 mg-folic acid 1 mg tablet (Dialyvite) 1 tab PO DAILY 04/28/23 [History Confirmed 04/28/23] ipratropium bromide 0.02 % solution for inhalation 2.5 ml inhalation Q8H 04/29/23 [History Confirmed 04/29/23] levalbuterol HCl 1.25 mg/3 mL solution for nebulization 1.25 mg inhalation Q8H 04/29/23 [History Confirmed 04/29/23] Active Medications: Active Medications Acetaminophen (Acetaminophen 325 Mg Tablet) 650 mg PO Q6H PRN PRN Reason: Pain 1-5 or fever Stop: 04/27/24 17:45 Last Admin: 04/29/23 03:46 Dose: 650 mg Hydrocodone Bitart/Acetaminophen (Hydrocodone/Acetaminophen 5-325 Mg Tablet) 1 tab PO Q4H PRN PRN Reason: Pain Scale 4 - 6 Apixaban (Apixaban 2.5 Mg Tablet) 2.5 mg PO BID [facility] Stop: 04/27/24 20:59 Last Admin: 04/28/23 21:28 Dose: 2.5 mg Bumetanide (Bumetanide 2 Mg Tablet) 2 mg PO SuTuWeThSa@0900 [facility] Stop: 04/28/24 08:59 Clonazepam (Clonazepam 0.5 Mg Tablet) 0.5 mg PO TID [facility] Stop: 10/25/23 21:59 Last Admin: 04/29/23 09:13 Dose: Not Given Diltiazem HCl (Diltiazem 30 Mg Tablet) 30 mg PO TID [facility] Stop: 04/27/24 21:59 Last Admin: 04/29/23 09:13 Dose: Not Given Sodium Chloride (0.9% Sodium Chloride 1,000 Ml) 1,000 mls @ 0 mls/hr MISCELLANE.Q0M PRN PRN Reason: Dialysis Stop: 04/27/24 15:23 Last Infusion: 04/28/23 16:46 Dose: Infused Ceftriaxone Sodium (Rocephin) 1 gm in 50 mls @ 100 mls/hr IV Q24H [facility] Azithromycin (Zithromax) 500 mg in 250 mls @ 250 mls/hr IV Q24H [facility] Ipratropium Andover (Ipratropium Andover 0.5 Mg/2.5 Ml Vial.Neb) 0.5 mg INHALATION Q8H [facility] Stop: 04/28/24 07:59 Last Admin: 04/29/23 08:01 Dose: 0.5 mg Levalbuterol HCl (Levalbuterol Hcl *Nf* 1.25 Mg/3 Ml Vial.Neb) 1.25 mg INHALATION Q8H [facility]; Protocol Stop: 04/28/24 07:59 Last Admin: 04/29/23 08:01 Dose: 1.25 mg Lidocaine/Prilocaine (Lidocaine-Prilocaine Cr 2.5-2.5% 5 Gm Tube) 1 applic TOPICAL ONCE PRN PRN Reason: Dialysis Stop: 04/27/24 17:44 Metoprolol Tartrate (Metoprolol Tartrate 25 Mg Tablet) 25 mg PO BID [facility] Stop: 04/27/24 20:59 Last Admin: 04/28/23 21:28 Dose: 25 mg Non-Formulary Medication (Dextromethorphan-Quinidine [Nuedexta]) 1 cap PO Q12H [facility] Stop: 04/27/24 17:44 Ondansetron HCl (Ondansetron 4 Mg/2 Ml Vial) 4 mg IV-PUSH Q6H PRN PRN Reason: Nausea And Vomiting Stop: 04/27/24 17:45 Pantoprazole Sodium (Pantoprazole 40 Mg Tablet.Dr) 40 mg PO DAILY [facility] Stop: 04/28/24 08:59 Paricalcitol (Paricalcitol 10 Mcg/2 Ml Vial) 2 mcg IV-PUSH PRN PRN PRN Reason: Dialysis Stop: 05/04/24 09:04 Potassium Chloride (Potassium Chloride Er 20 Meq Tab.Er.Prt) 40 meq PO DAILY PRN PRN Reason: Hypokalemia Stop: 04/27/24 17:45 Sildenafil Citrate (Sildenafil Citrate 20 Mg Tablet) 20 mg PO TID [facility] Stop: 04/27/24 21:59 Last Admin: 04/29/23 09:12 Dose: Not Given Sodium Chloride (Sodium Chloride 0.9 % 10 Ml Syringe) 0 ml IV-PUSH PRN PRN PRN Reason: Flush Stop: 04/27/24 13:03 Last Admin: 04/28/23 16:23 Dose: 10 ml Sodium Chloride (Sodium Chloride 0.9 % 10 Ml Syringe) 0 ml IV-PUSH PRN PRN PRN Reason: Flush Stop: 04/27/24 15:23 Exam Physical Exam Vital Signs: Temp Pulse Resp BP Pulse Ox O2 Del Method O2 Flow Rate 98.3 F 85 20 99/59 L 93 L Nasal Cannula 3 04/29/23 08:00 04/29/23 10:01 04/29/23 08:08 04/29/23 10:01 04/29/23 08:00 04/29/23 08:02 04/29/23 08:02 Narrative: General: Appears comfortable and not in distress Heart: S1-S2, no rub Lung: Bilateral air entry, no wheezing or crackles Abdomen: Soft, positive bowel sounds Extremities: No edema, no cyanosis Head: Atraumatic, normocephalic Ear: No external ear redness or tenderness Eyes: No pallor or redness Neck: No JVD or visible mass Skin: No rashes , warm to touch 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 Minor interstitial changes with left basilar parenchymal densities suggesting subtle infiltrate/atelectasis. Impression dictated by: Rojas Navarrete M.D.04/28/2023 2:05 PM Dictation Location: [place] [address] Any impression(s) listed above is documentation that was entered by the reading physician into a diagnostic report(s) for Ruddy Palmer. I have reviewed the report(s) and am incorporating any findings in the treatment plan of this patient where applicable. A&P - Nephrology Assessment/Plan (1) Sepsis associated hypotension: Plan: He was presented with a fever leukocytosis and hypertension. His blood culture positive for E. coli bacteremia. Currently on IV antibiotics. (2) ESRD (end stage renal disease): Plan: He has a ESRD after [facility] in setting of sepsis. He has been on dialysis for 2 years and currently goes to the [facility] twice a week on Monday schedule (3) E coli bacteremia: Plan: He has a E. coli bacteremia due to the unclear etiology. Differential diagnoses are endocarditis versus UTI or graft infection. (4) Anemia of renal disease: Plan: Hemoglobin is below the goal. He receives Mircera with dialysis. (5) Secondary hyperparathyroidism: Plan: He has a secondary hyperparathyroidism and currently receives IV Hectorol with dialysis. Plan * Will do another session of dialysis today as he has only short session of dialysis yesterday. * Continue IV antibiotic and adjust as needed is on culture sensitivity. Pharmacy to dose medication. * Consult ID due to the bacteremia. * Patient still makes urine as per the mother. Continue Bumex on nondialysis day. * Will give IV Zemplar with dialysis. * Check renal function daily. * Thanks for the consult. We will continue follow with you. Please feel free to call us with any question. Documented By: Melina Garcia MD 04/29/23 1004 Signed By: <Electronically signed by Melina Garcia MD> 04/29/23 1048 [facility] Work Phone: Consult note Author Kostas Wade [facility] May 01, 2023 12:02pm Note Date/Time May 01, 2023 11 :57am [facility] [address] [place] [address] Infect. Disease Consult Note Signed Patient: Ruddy Palmer MR#: [id number] : 1985 Acct:[id number] Age/Sex: 37 / M Adm Date: 3 Loc: Room: [address] [place] [address] Type: ADM IN Attending Dr: Bradford Henriquez MD Copies to: MD Denis Pierce MD Michael S Blank, MD~ HPI Data of Consult Consult date: 05/01/23 Requesting Physician: Bradford Henriquez MD Primary Care Provider: Denis Melvin MD Consult Narrative History of present illness: This is a 37M with PMH of HTN, Cerebral Palsy, Blindness, Hearing impairment, COPD, Pulmonary HTN, ESRD (on HD), PE (on Eliquis) who presented with Hypotesionand admitted for the evaluation and treatment of suspected Bacterial Pneumonia? ? The patient presented with hypotension prior to HD today and was subsequently sent to the ED for evaluation. The patient's mother reported that she had observed him coughing over the past two days, accompanied by a fever reaching upto 102F. The patient has been unable to communicate since childhood. Blood cultures have been positive for E. 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 Patient is coughing whenI saw him in dialysis but I do not see a sputum culture obtained CC: Bradford Henriquez MD Review of Systems Review of Systems Unobtainable due to mental condition [facility] Medical History (Updated 04/29/23 @ 10:27 by Melina Garcia MD) Adult hyaline membrane disease Asthma Blind Cerebral palsy Cystic BPD (bronchopulmonary dysplasia) Hearing impaired Hypertension Non-verbal learning disorder Panacinar emphysema Pulmonary hypertension Social History Smoking Status: Unknown if ever smoked Substance Use Type: Unknown Allergies and Medications Allergies and Active Meds Allergies ciprofloxacin [From Cipro] Allergy (Verified 04/28/23 13:10) Hives latex Allergy (Verified 04/28/23 13:10) Hives Active Medications Acetaminophen (Acetaminophen 325 Mg Tablet) 650 mg PO Q6H PRN PRN Reason: Pain 1-5 or fever Stop: 04/27/24 17:45 Last Admin: 04/30/23 09:26 Dose: 650 mg Hydrocodone Bitart/Acetaminophen (Hydrocodone/Acetaminophen 5-325 Mg Tablet) 1 tab PO Q4H PRN PRN Reason: Pain Scale 4 - 6 Apixaban (Apixaban 2.5 Mg Tablet) 2.5 mg PO BID [facility] Stop: 04/27/24 20:59 Last Admin: 05/01/23 08:34 Dose: 2.5 mg Bumetanide (Bumetanide 2 Mg Tablet) 2 mg PO SuTuWeThSa@0900 [facility] Stop: 04/28/24 08:59 Last Admin: 04/30/23 09:27 Dose: 2 mg Clonazepam (Clonazepam 0.5 Mg Tablet) 0.5 mg PO TID [facility] Stop: 10/25/23 21:59 Last Admin: 05/01/23 08:34 Dose: 0.5 mg Diltiazem HCl (Diltiazem 30 Mg Tablet) 30 mg PO TID [facility] Stop: 04/27/24 21:59 Last Admin: 05/01/23 08:20 Dose: Not Given Ferric Sodium Gluconate Complex (Sodium Ferric Gluconat/Sucrose 62.5 Mg/5 Ml Vial) 62.5 mg IV-PUSH WEEKLY [facility] Stop: 04/30/24 08:59 Sodium Chloride (0.9% Sodium Chloride 1,000 Ml) 1,000 mls @ 0 mls/hr MISCELLANE.Q0M PRN PRN Reason: Dialysis Stop: 04/27/24 15:23 Last Admin: 04/29/23 11:11 Dose: 999 mls/hr Ertapenem 0.5 gm/ Sodium (Chloride) 100 mls @ 200 mls/hr IV Q24H [facility] Stop: 04/29/24 11:29 Last Infusion: 05/01/23 07:00 Dose: Infused Sodium Chloride (0.9% Sodium Chloride 1,000 Ml) 1,000 mls @ 0 mls/hr MISCELLANE.Q0M PRN PRN Reason: Dialysis Stop: 04/30/24 08:32 Sodium Chloride (0.9% Sodium Chloride 1,000 Ml) 1,000 mls @ 0 mls/hr MISCELLANE.Q0M PRN PRN Reason: Dialysis Stop: 04/30/24 10:46 Ipratropium Andover (Ipratropium [place] 0.5 Mg/2.5 Ml Vial.Neb) 0.5 mg INHALATION QID [facility] Stop: 04/28/24 21:59 Last Admin: 05/01/23 07:21 Dose: 0.5 mg Levalbuterol HCl (Levalbuterol Hcl *Nf* 1.25 Mg/3 Ml Vial.Kelsey) 1.25 mg INHALATION QID [facility]; Protocol Stop: 04/28/24 21:59 Last Admin: 05/01/23 07:21 Dose: 1.25 mg Lidocaine/Prilocaine (Lidocaine-Prilocaine Cr 2.5-2.5% 5 Gm Tube) 1 applic TOPICAL ONCE PRN PRN Reason: Dialysis Stop: 04/27/24 17:44 Last Admin: 05/01/23 08:34 Dose: 1 applic Metoprolol Tartrate (Metoprolol Tartrate 25 Mg Tablet) 25 mg PO BID [facility] Stop: 04/27/24 20:59 Last Admin: 04/28/23 21:28 Dose: 25 mg Non-Formulary Medication (Dextromethorphan-Quinidine [Nuedexta]) 1 cap PO Q12H [facility] Stop: 04/27/24 17:44 Ondansetron HCl (Ondansetron 4 Mg/2 Ml Vial) 4 mg IV-PUSH Q6H PRN PRN Reason: Nausea And Vomiting Stop: 04/27/24 17:45 Pantoprazole Sodium (Pantoprazole 40 Mg Tablet.) 40 mg PO DAILY [facility] Stop: 04/28/24 08:59 Last Admin: 05/01/23 08:34 Dose: 40 mg Paricalcitol (Paricalcitol 10 Mcg/2 Ml Vial) 2 mcg IV-PUSH MoFr@11 [facility] Stop: 04/30/24 10:59 Potassium Chloride (Potassium Chloride Er 20 Meq Tab.Er.Prt) 40 meq PO DAILY PRN PRN Reason: Hypokalemia Stop: 04/27/24 17:45 Sildenafil Citrate (Sildenafil Citrate 20 Mg Tablet) 20 mg PO TID PENNY Stop: 04/27/24 21:59 Last Admin: 05/01/23 08:20 Dose: Not Given Sodium Chloride (Sodium Chloride 0.9 % 10 Ml Syringe) 0 ml IV-PUSH PRN PRN PRN Reason: Flush Stop: 04/27/24 13:03 Last Admin: 04/28/23 16:23 Dose: 10 ml Sodium Chloride (Sodium Chloride 0.9 % 10 Ml Syringe) 0 ml IV-PUSH PRN PRN PRN Reason: Flush Stop: 04/27/24 15:23 Last Admin: 04/29/23 12:39 Dose: 10 ml Sodium Chloride (Sodium Chloride 0.9 % 10 Ml Syringe) 0 ml IV-PUSH PRN PRN PRN Reason: Flush Stop: 04/30/24 08:32 Sodium Chloride (Sodium Chloride 0.9 % 10 Ml Syringe) 0 ml IV-PUSH PRN PRN PRN Reason: Flush Stop: 04/30/24 10:46 Exam Physical Exam Vital Signs: Temp Pulse Resp BP Pulse Ox O2 Del Method O2 Flow Rate 98.2 F 110 H 18 104/53 L 92 L Nasal Cannula 4 05/01/23 08:20 05/01/23 11:30 05/01/23 09:40 05/01/23 11:30 05/01/23 09:40 05/01/23 09:40 05/01/23 09:40 Const General: combative and ill appearing HEENT Head: normal to inspection Neck Neck: normal visual inspection Chest Chest palpation & inspection: normal inspection of the chest Resp Effort & Inspection: normal respiratory effort and cough Cardio Palpation: normal PMI GI Inspection: normal to inspection Skin General: no rashes or lesions noted Neuro Other: Patient is at his baseline mental status cannot provide a history. Results Labs 05/01/23 06:42 05/01/23 06:42 Labs: 05/01/23 06:42: Corrected WBC 13.1 H 05/01/23 06:42: BUN 58 H, Creatinine 6.03 H D Microbiology Results Microbiology Narrative: 05/01/23 09:23 Blood Culture - Pending Blood - Right Antecubital 05/01/23 09:25 Blood Culture - Pending Blood - Right Hand 04/28/23 14:23 Blood Culture - Preliminary Blood - Right Antecubital Escherichia coli (ESBL) 04/28/23 13:23 Blood Culture - Preliminary Blood - Right Antecubital Escherichia coli (ESBL) Bacterial ID (NA Multiplex Assay) - Final 04/29/23 17:00 Urine Culture - Final Straight Catheter Escherichia coli (ESBL) 04/30/23 05:50 Blood Culture - Preliminary Blood - Right Antecubital Escherichia coli (ESBL) Bacterial ID (NA Multiplex Assay) - Final Imaging and Cardiology Status: report viewed by me Results Comments: CXR: IMPRESSION:? No acute process.? Minor interstitial changes with left basilar parenchymal densities suggesting subtle infiltrate/atelectasis. A&P - Infectious Disease (1) E coli bacteremia: Status: Acute (2) ESRD (end stage renal disease): Status: Acute (3) Pneumonia: Status: Acute Plan Patient is coughing when I saw him in dialysis but no sputum perhaps is able to be obtained. Will order sputum culture regardless. Follow-up cultures from the blood are pending. He had a urine culture that also grew some bacteria and given he cannot really communicate very well would like to get a CT scan of the abdomen pelvis without contrast to further evaluate for potential other sources. I agree with ertapenem as treating his ESBL E. coli. Documented By: Kostas Wade MD 05/01/23 1156 Signed By: <Electronically signed by MD Kostas Wade> 05/01/23 1202 [facility] Work Phone: Consult note Author Van Bernardo [facility] May 01, 2023 5:18pm Note Date/Time May 01, 2023 2: 00pm [facility] [address] [place] [address] Palliative Care Consult Note Signed with Juan David Patient: Ruddy Palmer MR#: [id number] : 1985 Acct:[id number] Age/Sex: 37 / M Adm Date: 3 Loc: Room: [address] [place] [address] Type: ADM IN Attending Dr: Bradford Henriquez MD Copies to: MD Denis Pierce MD Larry E Jr Robinson,~ ADDENDUM1 I was able to meet up with patient's mother, Fabby, and we had [place]ot, patient's stepfather, on the phone. They are both patient's legal co-guardians. We again reviewed Ruddy's condition. They are hoping he improves with treatmentof the infection and he might somehow return to the function he had before he got sick this past week. If he fails to improve or worsens, we did discuss comfort care options including stopping dialysis and even considering hospice. They do not think they want to pursue retirement facility at discharge. But they are hoping he will be able to get up and participate in and some care like he did before he got sick this past week. For now they want to continue hemodialysis and hope he improves. But they did make it clear that they want toensure Ruddy is comfortable and does not suffer. We will follow-up tomorrow. 20 additional minutes spent discussing goals of care. Addendum Documented By: DO Van Bernardo 05/01/231717 Addendum Signed By: <Electronically signed by DO Van Bernardo> 05/01/231717 HPI Data of Consult Date of Consult: 05/01/2023 Requesting Physician: Bradford Henriquez MD Primary Care Provider: Denis Melvin MD Consult Narrative Reason for Consult: Advance care planning, goals of care HPI: This is a 37-year-old male with past medical history significant for cerebral palsy, hypertension, blindness, hearing impairment, COPD, pulmonary pretension, end- stage renal disease on hemodialysis twice weekly x2 years, pulmonary embolism on Eliquis. He was sent to the ER from his dialysis unit?[facility] in [place] because he was febrile and hypotensive. Patient did have mild lactic acidosis and was given IV fluids in the ED. Chest x-ray showed left basilar parenchymal densities and blood cultures were taken. Blood cultures do show ESBL. Respiratory panel was negative. Patient was started on IV antibiotics. Infectious disease and nephrology consulted. Today is hospitalization day #3. Patient is nonverbal and does not follow commands. Palliative medicine was consulted to help with goals of care and with advance care planning. Patient seen and evaluated at the dialysis unit on the fourth floor. He appearsto be comfortable, but chronically ill. He does not answer any questions or follow any commands. He does not open his eyes. Dialysis staff say that he didgive them his arm and was able to get through dialysis without a problem today. Patient appears to be well kept and well groomed. His CODE STATUS currently is DNR CCA without intubation, confirmed by family on admission. Patient's caregiver is at bedside in his hospital room?Laurie. She tells me that patient does have legal guardian in place?his mom, Fabby, and his stepdad, Ernesto, are his legal guardians. I called his mom, Fabby, and had a 35-minute discussion on the phone about goals of care and advance care planning. She tells me that Ruddy was a premature baby at , born at 29 weeks gestational age. He was 2 pounds and 10 ounces at and was on the ventilator machine for 5 months with severe respiratory failure. She tells me he was blind at , and also blind because he needed high levels of O2 to survive. Also he has had hearing impairment that been severe since he was born. She tells me that she had abruptio placenta when she was with him, andthat prompted the early delivery. She says that Ruddy was in the ICU for 6-1/2 months before he was brought home. She tells me that Ruddy has had a cognitive level of a 12-month to [id number] at baseline. She tells me that Ruddy has not been able to talk, but has been able to follow commands. He is dependent on ADLs?including toileting, bathing, dressing, feeding. But he does get up and walk at home spontaneously, and is even able to follow some commands and goes to the restroom when she asks him to. Over the past 5 years Fabby says that Ruddy has had numerous hospitalizations. His last hospitalization was in 2020, and he was sick with sepsis and renal failure. He does have history ofsolitary kidney. He has been on dialysis since 2020. Mom says he does still produce quite a bit of urine. He is only on dialysis twice weekly. She says she does feed Ruddy all meals, he is unable to chew food and is on a pur?ed diet. Had a long talk with Fabby, Ruddy's mother, on the phone. She understands that Ruddy is sick with positive blood cultures and is having further evaluation?including CT scan of abdomen pelvis to rule out other sources of infection. We did discuss how Ruddy will likely need IV antibiotics for some time depending on the work-up for the source of infection. She prefers he discharged to home instead of retirement facility when he is ready for discharge. She says she has plenty of help with caregivers. She says the caregivers help when she is working, and then when she is off work she is Ruddy'sprimary caregiver. She thinks Ruddy would be much more comfortable at home rather than retirement facility for rehab and IV antibiotics. We did talk about quality life and when Ruddy might want to discontinue dialysis in the future. For now, she thinks Ruddy has had a decent quality life at home. But Fabby did tell me that his quality life has been slowly declining recently. She says she would have a tough time deciding to stop hemodialysis in the futurebecause she would feel like she would be responsible for Ruddy's . We did have a talk about this on the phone. Fabby did confirm CODE STATUS of DNR CCA without intubation. She does not think Ruddy would want CPR if his heart were tostop and she does not think he would want to be on a ventilator machine in the future. Fabby says she will be in to visit him later this evening, we will attempt to talk later. Fabby was thankful for the conversation. Will follow up tomorrow. Please call if questions. Review of Systems Review of Systems Unobtainable due to mental condition [facility] Medical History (Updated 05/01/23 @ 14:42 by Van Bernardo DO) Adult hyaline membrane disease Asthma Blind Cerebral palsy Cystic BPD (bronchopulmonary dysplasia) Hearing impaired Hypertension Non-verbal learning disorder Panacinar emphysema Pulmonary hypertension Social History Smoking Status: Unknown if ever smoked Substance Use Type: Unknown Allergies & Medications Medications and Allergies Allergies ciprofloxacin [From Cipro] Allergy (Verified 04/28/23 13:10) Hives latex Allergy (Verified 04/28/23 13:10) Hives Home Medications apixaban 2.5 mg tablet (Eliquis) 2.5 mg PO BID 04/28/23 [History Confirmed 04/28/23] bumetanide 2 mg tablet 2 mg PO QAM 04/28/23 [History Confirmed 04/28/23] clonazepam 0.5 mg tablet 0.5 mg PO TID 04/28/23 [History Confirmed 04/28/23] dextromethorphan 20 mg-quinidine 10 mg capsule (Nuedexta) 1 cap PO Q12H 04/28/23[History Confirmed 04/28/23] diltiazem HCl 30 mg tablet 30 mg PO TID 04/28/23 [History Confirmed 04/28/23] lidocaine-prilocaine 2.5 %-2.5 % topical cream 1 applic topical ONCE 04/28/23 [History Confirmed 04/28/23] metoprolol tartrate 25 mg tablet 25 mg PO BID 04/28/23 [History Confirmed 04/28/23] omeprazole 20 mg tablet,delayed release 20 mg PO DAILY 04/28/23 [History Confirmed 04/28/23] sildenafil (pulm.hypertension) 20 mg tablet 20 mg PO TID 04/28/23 [History Confirmed 04/28/23] vitamin B complex-vitamin C 100 mg-folic acid 1 mg tablet (Dialyvite) 1 tab PO DAILY 04/28/23 [History Confirmed 04/28/23] ipratropium bromide 0.02 % solution for inhalation 2.5 ml inhalation Q8H 04/29/23 [History Confirmed 04/29/23] levalbuterol HCl 1.25 mg/3 mL solution for nebulization 1.25 mg inhalation Q8H 04/29/23 [History Confirmed 04/29/23] Active Medications Acetaminophen (Acetaminophen 325 Mg Tablet) 650 mg PO Q6H PRN PRN Reason: Pain 1-5 or fever Stop: 04/27/24 17:45 Last Admin: 04/30/23 09:26 Dose: 650 mg Hydrocodone Bitart/Acetaminophen (Hydrocodone/Acetaminophen 5-325 Mg Tablet) 1 tab PO Q4H PRN PRN Reason: Pain Scale 4 - 6 Apixaban (Apixaban 2.5 Mg Tablet) 2.5 mg PO BID PENNY Stop: 04/27/24 20:59 Last Admin: 05/01/23 08:34 Dose: 2.5 mg Bumetanide (Bumetanide 2 Mg Tablet) 2 mg PO [id number]@0900 [facility] Stop: 04/28/24 08:59 Last Admin: 04/30/23 09:27 Dose: 2 mg Clonazepam (Clonazepam 0.5 Mg Tablet) 0.5 mg PO TID [facility] Stop: 10/25/23 21:59 Last Admin: 05/01/23 08:34 Dose: 0.5 mg Diltiazem HCl (Diltiazem 30 Mg Tablet) 30 mg PO TID [facility] Stop: 04/27/24 21:59 Last Admin: 05/01/23 08:20 Dose: Not Given Ferric Sodium Gluconate Complex (Sodium Ferric Gluconat/Sucrose 62.5 Mg/5 Ml Vial) 62.5 mg IV-PUSH WEEKLY [facility] Stop: 04/30/24 08:59 Last Admin: 05/01/23 12:07 Dose: 62.5 mg Sodium Chloride (0.9% Sodium Chloride 1,000 Ml) 1,000 mls @ 0 mls/hr MISCELLANE.Q0M PRN PRN Reason: Dialysis Stop: 04/27/24 15:23 Last Infusion: 05/01/23 12:09 Dose: Infused Ertapenem 0.5 gm/ Sodium (Chloride) 100 mls @ 200 mls/hr IV Q24H [facility] Stop: 04/29/24 11:29 Last Infusion: 05/01/23 07:00 Dose: Infused Sodium Chloride (0.9% Sodium Chloride 1,000 Ml) 1,000 mls @ 0 mls/hr MISCELLANE.Q0M PRN PRN Reason: Dialysis Stop: 04/30/24 08:32 Sodium Chloride (0.9% Sodium Chloride 1,000 Ml) 1,000 mls @ 0 mls/hr MISCELLANE.Q0M PRN PRN Reason: Dialysis Stop: 04/30/24 10:46 Ipratropium [place] (Ipratropium [place] 0.5 Mg/2.5 Ml Vial.Neb) 0.5 mg INHALATION QID [facility] Stop: 04/28/24 21:59 Last Admin: 05/01/23 07:21 Dose: 0.5 mg Levalbuterol HCl (Levalbuterol Hcl *Nf* 1.25 Mg/3 Ml Vial.Neb) 1.25 mg INHALATION QID [facility]; Protocol Stop: 04/28/24 21:59 Last Admin: 05/01/23 07:21 Dose: 1.25 mg Lidocaine/Prilocaine (Lidocaine-Prilocaine Cr 2.5-2.5% 5 Gm Tube) 1 applic TOPICAL ONCE PRN PRN Reason: Dialysis Stop: 04/27/24 17:44 Last Admin: 05/01/23 08:34 Dose: 1 applic Metoprolol Tartrate (Metoprolol Tartrate 25 Mg Tablet) 25 mg PO BID PENNY Stop: 04/27/24 20:59 Last Admin: 04/28/23 21:28 Dose: 25 mg Non-Formulary Medication (Dextromethorphan-Quinidine [Nuedexta]) 1 cap PO Q12H PENNY Stop: 04/27/24 17:44 Ondansetron HCl (Ondansetron 4 Mg/2 Ml Vial) 4 mg IV-PUSH Q6H PRN PRN Reason: Nausea And Vomiting Stop: 04/27/24 17:45 Pantoprazole Sodium (Pantoprazole 40 Mg Tablet.Dr) 40 mg PO DAILY PENNY Stop: 04/28/24 08:59 Last Admin: 05/01/23 08:34 Dose: 40 mg Paricalcitol (Paricalcitol 10 Mcg/2 Ml Vial) 2 mcg IV-PUSH MoFr@11 PENNY Stop: 04/30/24 10:59 Last Admin: 05/01/23 12:06 Dose: 2 mcg Potassium Chloride (Potassium Chloride Er 20 Meq Tab.Er.Prt) 40 meq PO DAILY PRN PRN Reason: Hypokalemia Stop: 04/27/24 17:45 Sildenafil Citrate (Sildenafil Citrate 20 Mg Tablet) 20 mg PO TID PENNY Stop: 04/27/24 21:59 Last Admin: 05/01/23 08:20 Dose: Not Given Sodium Chloride (Sodium Chloride 0.9 % 10 Ml Syringe) 0 ml IV-PUSH PRN PRN PRN Reason: Flush Stop: 04/27/24 13:03 Last Admin: 05/01/23 12:08 Dose: 10 ml Sodium Chloride (Sodium Chloride 0.9 % 10 Ml Syringe) 0 ml IV-PUSH PRN PRN PRN Reason: Flush Stop: 04/27/24 15:23 Last Admin: 04/29/23 12:39 Dose: 10 ml Sodium Chloride (Sodium Chloride 0.9 % 10 Ml Syringe) 0 ml IV-PUSH PRN PRN PRN Reason: Flush Stop: 04/30/24 08:32 Sodium Chloride (Sodium Chloride 0.9 % 10 Ml Syringe) 0 ml IV-PUSH PRN PRN PRN Reason: Flush Stop: 04/30/24 10:46 Exam Physical Exam Vital Signs: Temp Pulse Resp BP Pulse Ox O2 Del Method O2 Flow Rate 98.2 F 85 18 98/49 L 92 L Nasal Cannula 4 05/01/23 08:20 05/01/23 12:00 05/01/23 09:40 05/01/23 12:00 05/01/23 09:40 05/01/23 09:40 05/01/23 09:40 Const General: comfortable, no acute distress, frail appearing and ill appearing chronically Orientation: not alert, not awake and obtunded HEENT Head: normal to inspection, normocephalic and atraumatic Nose: external nose normal Eyes Eyelids: eyelids normal Other: doesn't open his eyes. Blind per family. Neck Neck: supple Lymphatic: no lymphadenopathy noted Resp Auscultation: clear to auscultation bilaterally, diminished lung sounds bilaterally, no rales, no rhonchi and no wheezes Cardio Rate: regular rate Rhythm: regular rhythm GI Palpation: soft, no guarding, no masses and nontender Musc Other: Cachexia Neuro General: not alert and not awake Extrem General: no edema Results Labs 05/01/23 06:42 05/01/23 06:42 Labs: Laboratory Last Values Corrected WBC 13.1 X10E3/uL (4.1-10.5) H 05/01/23 06:42 Uncorrected WBC Count 19.9 x10E3/uL (4.1-10.5) H 04/28/23 13:23 RBC 2.85 X10E6/uL (3.90-5.60) L 05/01/23 06:42 Hgb 8.3 g/dL (13.0-17.0) L 05/01/23 06:42 Hct 26.5 % (38.8-50.0) L 05/01/23 06:42 MCV 92.9 fl (83.5-101) 05/01/23 06:42 MCH 29.2 pg (27.5-35.2) 05/01/23 06:42 MCHC 31.5 g/dL (32.5-35.6) L 05/01/23 06:42 RDW 14.1 % (12.0-14.8) 05/01/23 06:42 Plt Count 63 x10E3/uL (150-450) L 05/01/23 06:42 MPV 10.2 fl (6.6-10.1) H 05/01/23 06:42 Neut % (Auto) N/A 04/28/23 13:23 Lymph % (Auto) N/A 04/28/23 13:23 [place] % (Auto) N/A 04/28/23 13:23 Eos % (Auto) N/A 04/28/23 13:23 Baso % (Auto) N/A 04/28/23 13:23 Nucleat RBC Rel Count N/A 04/28/23 13:23 Neut # (Auto) N/A 04/28/23 13:23 Lymph # (Auto) N/A 04/28/23 13:23 [place] # (Auto) N/A 04/28/23 13:23 Eos # (Auto) N/A 04/28/23 13:23 Baso # (Auto) N/A 04/28/23 13:23 Band Neutrophils % 36 % (0-5) H 04/28/23 13:23 Lymphocytes % 2 % (18-42) L 04/28/23 13:23 Monocytes % 3 % (2-11) 04/28/23 13:23 Eosinophils % 1 % (1-3) 04/28/23 13:23 Basophils % 0 % (0-2) 04/28/23 13:23 Metamyelocytes % 5 % (0-0) H 04/28/23 13:23 Segmented Neutrophils 53 % (50-70) 04/28/23 13:23 Monocyte Dist Width 42.47 % (0.00-20.00) H 04/28/23 13:23 Platelet Estimate Decreased (Normal) 04/28/23 13:23 Plt Morphology Comment Normal (Normal) 04/28/23 13:23 RBC Morphology N/A 04/28/23 13:23 Hypochromasia Slight 04/28/23 13:23 Crenated Cell Slight 04/28/23 13:23 PT 14.4 Seconds (9.0-12.9) H 04/28/23 13:23 INR 1.2 04/28/23 13:23 APTT 36.0 Seconds (25.1-36.5) 04/28/23 13:23 PHA Creatinine Clear 14.35 05/01/23 06:42 Sodium 130 mmol/L (136-145) L 05/01/23 06:42 Potassium 3.8 mmol/L (3.5-5.1) 05/01/23 06:42 Chloride 95 mmol/L (98-107) L 05/01/23 06:42 Carbon Dioxide 23.9 mmol/L (21.0-31.0) 05/01/23 06:42 Anion Gap 14.9 mEq/L (6.0-15.0) 05/01/23 06:42 BUN 58 mg/dL (7-25) H 05/01/23 06:42 Creatinine 6.03 mg/dL (0.70-1.30) H D 05/01/23 06:42 Est GFR (CKD-EPI) 11.439 mL/Min 05/01/23 06:42 Glucose 82 mg/dL (70-100) 05/01/23 06:42 Lactic Acid 1.4 mmol/L (0.5-2.2) 04/28/23 19:31 Calcium 8.4 mg/dL (8.6-10.3) L 05/01/23 06:42 Total Bilirubin 0.3 mg/dl (0.3-1.0) 04/28/23 13:23 AST 27 U/L (13-39) 04/28/23 13:23 ALT 27 U/L (7-52) 04/28/23 13:23 Alkaline Phosphatase 107 U/L (34-104) H 04/28/23 13:23 Total Creatine Kinase 398 U/L (30-223) H 04/28/23 13:23 Troponin I High Sens 24.4 pg/mL (0.0-20.0) H 04/28/23 13:23 Total Protein 6.0 gm/dL (6.4-8.9) L 04/28/23 13:23 Albumin 3.4 gm/dL (3.5-5.7) L 04/28/23 13:23 Globulin 2.6 gm/dL 04/28/23 13:23 Albumin/Globulin Ratio 1.3 04/28/23 13:23 TSH 3rd Generation 1.33 uIU/mL (0.45-5.33) 04/28/23 13:23 Urine Color [place] (Yellow) A 04/29/23 17:00 Urine Appearance Turbid (Clear) A 04/29/23 17:00 Urine pH 6.0 (5.0-9.0) 04/29/23 17:00 Ur Specific [place] 1.015 (1.001-1.030) 04/29/23 17:00 Urine Protein 300 mg/dL (Negative) H 04/29/23 17:00 Urine Glucose (UA) Normal mg/dL (Normal) 04/29/23 17:00 Urine Ketones Negative (Negative) 04/29/23 17:00 Urine Occult Blood 3+ (Negative) H 04/29/23 17:00 Urine Nitrite Positive (Negative) H 04/29/23 17:00 Urine Bilirubin 1+ (Negative) H 04/29/23 17:00 Urine Urobilinogen Normal mg/dL (Normal) 04/29/23 17:00 Ur Leukocyte Esterase 4+ (Negative) H 04/29/23 17:00 Urine RBC 20-49 /HPF (0-4) H 04/29/23 17:00 Urine WBC Innumerable /HPF (0-4) H 04/29/23 17:00 Ur Squamous Epith Cells 0-1 /HPF (0-2) 04/29/23 17:00 Urine Bacteria 4+ (None Seen) H 04/29/23 17:00 Hyaline Casts 0-8 /LPF (0-8) 04/29/23 17:00 Urine Yeast Rare /HPF (None Seen) A 04/29/23 17:00 Microbiology Microbiology: 05/01/23 09:23 Blood Culture - Pending Blood - Right Antecubital 05/01/23 09:25 Blood Culture - Pending Blood - Right Hand 04/28/23 14:23 Blood Culture - Preliminary Blood - Right Antecubital Escherichia coli (ESBL) 04/28/23 13:23 Blood Culture - Preliminary Blood - Right Antecubital Escherichia coli (ESBL) Bacterial ID (NA Multiplex Assay) - Final 04/29/23 17:00 Urine Culture - Final Straight Catheter Escherichia coli (ESBL) 04/30/23 05:50 Blood Culture - Preliminary Blood - Right Antecubital Escherichia coli (ESBL) Bacterial ID (NA Multiplex Assay) - Final Assessment/Plan (1) ESRD (end stage renal disease): Code(s): N18.6 - End stage renal disease (2) E coli bacteremia: Code(s): R78.81 - Bacteremia; B96.20 - Unspecified Escherichia coli [E. coli] as the cause of diseases classified elsewhere (3) Cerebral palsy: Code(s): G80.9 - Cerebral palsy, unspecified (4) Counseling regarding advanced care planning and goals of care: Code(s): Z71.89 - Other specified counseling Plan Patient's caregiver is at bedside in his hospital room?Laurie. She tells me that patient does have legal guardian in place?his mom, Fabby, and his stepdad, Ernesto, are his legal guardians. I called his mom, Fabby, and had a 35-minute discussion on the phone about goals of care and advance care planning. She tells me that Ruddy was a premature baby at , born at 29 weeks gestational age. He was 2 pounds and 10 ounces at and was on the ventilator machine for 5 months with severe respiratory failure. She tells me he was blind at , and also blind because he needed high levels of O2 to survive. Also he has had hearing impairment that been severe since he was born. She tells me that she had abruptio placenta when she was with him, andthat prompted the early delivery. She says that Ruddy was in the ICU for 6-1/2 months before he was brought home. She tells me that Ruddy has had a cognitive level of a 12-month to [id number] at baseline. She tells me that Ruddy has not been able to talk, but has been able to follow commands. He is dependent on ADLs?including toileting, bathing, dressing, feeding. But he does get up and walk at home spontaneously, and is even able to follow some commands and goes to the restroom when she asks him to. Over the past 5 years Fabby says that Ruddy has had numerous hospitalizations. His last hospitalization was in 2020, and he was sick with sepsis and renal failure. He does have history ofsolitary kidney. He has been on dialysis since 2020. Mom says he does still produce quite a bit of urine. He is only on dialysis twice weekly. She says she does feed Ruddy all meals, he is unable to chew food and is on a pur?ed diet. Had a long talk with Fabby, Ruddy's mother, on the phone. She understands that Ruddy is sick with positive blood cultures and is having further evaluation?including CT scan of abdomen pelvis to rule out other sources of infection. We did discuss how Ruddy will likely need IV antibiotics for some time depending on the work-up for the source of infection. She prefers he discharged to home instead of retirement facility when he is ready for discharge. She says she has plenty of help with caregivers. She says the caregivers help when she is working, and then when she is off work she is Ruddy'sprimary caregiver. She thinks Ruddy would be much more comfortable at home rather than retirement facility for rehab and IV antibiotics. We did talk about quality life and when Ruddy might want to discontinue dialysis in the future. For now, she thinks Ruddy has had a decent quality life at home. But Fabby did tell me that his quality life has been slowly declining recently. She says she would have a tough time deciding to stop hemodialysis in the futurebecause she would feel like she would be responsible for Ruddy's . We did have a talk about this on the phone. Fabby did confirm CODE STATUS of DNR CCA without intubation. She does not think Ruddy would want CPR if his heart were tostop and she does not think he would want to be on a ventilator machine in the future. Fabby says she will be in to visit him later this evening, we will attempt to talk later. Fabby was thankful for the conversation. Will follow up tomorrow. Please call if questions. Documented By: Van Bernardo DO 05/01/23 1 400 Signed By: <Electronically signed by DO Van Bernardo> 05/01/23 5655 [facility] Work Phone: Consult note Author Juve Blackwell [facility] May 18, 2023 1:06pm Note Date/Time May 18, 2023 10:45am [facility] [address] [place] [id number] Pulmonology Consult Note Signed Patient: Ruddy Palmer MR#: [id number] : 1985 Acct:[id number] Age/Sex: 37 / M Adm Date: 3 Loc: 4 Room: [address] [place] [address] Type: ADM IN Attending Dr: Rajendra Pierce MD Copies to: Carlos Rust MD, RES MD Denis Giang MD Rafik Massouh, MD~ HPI Date/Time of Consultation: Date of Service: 05/18/2023 Time of Service: 10:15 Consulting Provider: Juve Blackwell Requesting Provider: Rajendra Pierce Reason for Consult: Acute hypercapnic respiratory failure History of Present Illness History of present illness: Mr. Palmer is a 37 year old male with past medical history of cerebral palsy, blindness, ESRD on HD, asthma, emphysema, severe pulmonary hypertension who presented to the hospital for 1 day of weakness and fatigue. He has been hospitalized twice in the past month for E. coli sepsis and symptomatic anemia. He was most recently discharged on 05/12/2023 and was recovering well per mother until 2 nights ago he was showing greater weakness and fatigue. Yesterday he continued to decline to the point that he seemed too weak to licensing court magistrate the bathtub and his mother and caregiver state and laying down and decided to bring him to the ER. His mother reports he also had snoring worse than normal the night prior, similar to the time preceding previous hospitalizations for respiratory failure. She was also concerned she will come up yesterday that he had possibly vomited in his sleep. He typically wears 2 L oxygen at home, but had been wearing 3 L since his most recent hospitalization. His mother reports home oxygen saturations never went below 92%. In the ED EKG showed normal sinusrhythm, chest x-ray showed no acute process. Labs showed hemoglobin 10.6, same as at discharge for his hospitalization for anemia, and BUN 48 and creatinine 5.78, both improved from most recent hospitalization. The ER was planning for discharge home when mother noticed changes in his breathing. ABG was obtained and showed pH 7.11, CO2 70.8, O2 79.9. He was placed on BiPAP and admitted. Repeat ABG this morning showed no significant change. Patient is resting comfortably in bed and mother reports no significant change in his status since admission. Review of Systems Review of Systems Unobtainable due to mental status Review of systems: 10 point review of systems is negative aside from noted above. [facility] Medical History (Updated 05/18/23 @ 03:13 by Nicole Nolan RN) A-V fistula LUE Adult hyaline membrane disease Asthma Blind Cerebral palsy Cystic BPD (bronchopulmonary dysplasia) ESRD (end stage renal disease) on dialysis M + F Hearing impaired Hypertension Non-verbal learning disorder Panacinar emphysema Pulmonary hypertension Surgical History H/O eye surgery Attempted to reattach retina x 1, 1984, 1985 H/O inguinal hernia repair 1984-right, 1985-left History of placement of ear tubes 1985, 1986 Social History Smoking Status: Never smoker Substance Use Type: None Social History Comments: Mother Meds Medications and Allergies Allergies ciprofloxacin [From Cipro] Allergy (Verified 05/17/23 12:29) Hives latex Allergy (Verified 05/17/23 12:29) Hives Home Medications bumetanide 2 mg tablet 2 mg PO QAM 04/28/23 [History Confirmed 05/17/23] clonazepam 0.5 mg tablet 0.5 mg PO TID 04/28/23 [History Confirmed 05/17/23] dextromethorphan 20 mg-quinidine 10 mg capsule (Nuedexta) 1 cap PO Q12H 04/28/23[History Confirmed 05/17/23] diltiazem HCl 30 mg tablet 30 mg PO TID 04/28/23 [History Confirmed 05/17/23] lidocaine-prilocaine 2.5 %-2.5 % topical cream 1 applic topical ONCE 04/28/23 [History Confirmed 05/17/23] metoprolol tartrate 25 mg tablet 25 mg PO BID 04/28/23 [History Confirmed 05/17/23] sildenafil (pulm.hypertension) 20 mg tablet 20 mg PO TID 04/28/23 [History Confirmed 05/17/23] vitamin B complex-vitamin C 100 mg-folic acid 1 mg tablet (Dialyvite) 1 tab PO QHS 04/28/23 [History Confirmed 05/17/23] ipratropium bromide 0.02 % solution for inhalation 500 mcg inhalation Q8H 04/29/23 [History Confirmed 05/17/23] levalbuterol HCl 1.25 mg/3 mL solution for nebulization 1.25 mg inhalation Q8H 04/29/23 [History Confirmed 05/17/23] omeprazole 20 mg tablet,delayed release 20 mg PO BID #60 tabs 05/07/23 [Rx Confirmed 05/17/23] maltodextrin 1 ea PO DAILY 05/17/23 [History Confirmed 05/17/23] Exam Physical Exam Vital Signs: Temp Pulse Resp BP Pulse Ox O2 Del Method O2 Flow Rate 97.8 F 74 16 128/68 95 BiPAP 3 05/18/23 08:41 05/18/23 09:26 05/18/23 09:26 05/18/23 08:41 05/18/23 09:26 05/18/23 08:41 05/17/23 20:44 FiO2 40 05/18/23 09:26 Narrative: Constitutional: Sleeping, on BiPAP, resting in bed comfortably HEENT: Moist mucous membranes, neck supple, blind Cardiovascular: RRR, no M/R/G, normal S1 and S2, no JVD Respiratory: Sounds diminished bilaterally, on BiPAP GI: Soft, NTND, normoactive bowel sounds : Deferred Neuro: Nonverbal, responding to stimulation but not fully arousable Skin: No rash, bruising, abrasions noted. Extremities: No clubbing, cyanosis or edema. Left upper extremity AV fistula Psych: Deferred Const Nutritional Appearance: average body habitus Orientation: not alert, not awake and obtunded Limitations: altered mental status HEENT Head: normal to inspection, normocephalic and atraumatic Ears: external ears normal Nose: external nose normal Face and sinus: normal facial exam Eyes Eyelids: eyelids normal Sclera: sclerae normal Neck Neck: normal visual inspection and no lymphadenopathy Chest Chest palpation & inspection: normal inspection of the chest Resp Auscultation: clear to auscultation bilaterally, no rales, no rhonchi and no wheezes Cardio Rate: regular rate Rhythm: regular rhythm Heart Sounds: S1 normal, S2 normal, no gallops, no murmurs and no rubs GI Inspection: normal to inspection Palpation: soft Auscultation: hypoactive bowel sounds Rectal Exam: deferred General: deferred Skin General: no rashes or lesions noted (Warm and dry) Extrem General: normal to inspection (SCDs in place) and no pedal edema Results Intake and Output I&O - Last 24 Hours: Intake & Output 05/17/23 05/18/23 05/18/23 23:59 07:59 15:59 Intake Total 100 / 100 50 / 50 Balance 100 / 100 50 / 50 Weight 65.1 kg 67.7 kg Labs 05/18/23 04:15 05/18/23 04:15 Microbiology Micro: 05/18/23 09:52 Urine Culture - Pending Straight Catheter 05/17/23 14:13 Blood Culture - Pending Blood - Right Antecubital 05/17/23 14:18 Blood Culture - Pending Blood - Pic Line Imaging and Cardiology Chest x-ray: Status: image reviewed by me Additional comments: Date of Service: 05/17/23 XR/XR chest 1V portable: Nausea/Vomiting/Diarrhea ? PORTABLE AP ERECT CHEST? 1600 hours CLINICAL HISTORY:? Nausea, fatigue, vomiting, diarrhea and snoring COMPARISON:? 05/09/2023 A right-sided PICC line is again visualized.? The lungs are hyperinflated and there are symmetric hyperlucency of the right in comparison to the left.? No focal consolidation is noted.? No sizable effusion or pneumothorax is seen.? Thecardiac and mediastinal contours are similar.? The bony structures are osteopenic. XR/XR chest 1V portable IMPRESSION: ? OBSTRUCTIVE LUNG DISEASE. ? NO ACUTE FINDINGS. Assessment/Plan (1) Anemia of renal disease: (2) Weakness: (3) Acute hypercapnic respiratory failure: (4) ESRD (end stage renal disease) on dialysis: (5) Cerebral palsy: Plan Patient is a 37-year-old male with past medical history of cerebral palsy, blindness, ESRD on HD, asthma, emphysema, severe pulmonary hypertension being treated for acute hypercapnic respiratory failure. His presentation is somewhat similar to his most recent hospitalization for symptomatic anemia, however his hemoglobin has remained stable since discharge. There was also concern for aspiration pneumonia but WBC is within normal limits and chest x-ray shows no acute processes. Given his recent hospitalizations and multiple chronic diagnoses including cerebral palsy, his acute hypercapnic respiratory failure ismost likely due to insufficient 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 response for respiratory compensation. We will consider increasing BiPAP settings and continue to monitor. Case discussed and patient seen on rounds in conjunction with Dr. Rust. Patient was interviewed and examined. Vital signs and labs were reviewed. Exam is notable for BiPAP mask in place. Lungs were clear without obvious wheezes, rhonchi, nor rales. Cardiovascular exam was regular without murmur or gallop. Abdomen was soft to palpation without obvious tenderness nor guarding. Extremities reveal no edema with SCDs in place. I agree with the note above. Patient has prior history of cerebral palsy and is nonverbal but is ambulatory per family. 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 There is a questionable history of a pulmonary vascular filling defect with patient taken off anticoagulation at last visit due to anemia though without obvious source of GI blood losswith deferral of endoscopy due to reported history of pulmonary hypertension treated with sildenafil monotherapy. The patient has no obvious pulmonary limitations to activity. Given the patient's overall clinical scenario, the patient's hypoventilation may be more 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 related exacerbated by an acute issue with note of prior ESBL producing E. coli presumably from the urine and concernsfor prostatitis. Patient has been on ertapenem IV. His exam and laboratory values as well as radiographic studies do not suggest an obvious other etiology for worsening of 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 function. Cultures are pending and will give the patient adose of vancomycin which should last given the patient's chronic end-stage renaldisease. The patient is confirmed to be DNR CCA without intubation. We will change him to noninvasive positive pressure ventilation with average volume assured pressure support as I suspect this is poor a central hypercapnic respiratory failure and not necessarily obstructive. We will follow with you and provide assistance as able. Documented By: Carlos Rust MD, RES 05/18/23 1015 Signed By: <Electronically signed by MD LIZZY Rust> 05/18/23 1210 <Electronically signed by MD Juve Blackwell> 05/18/23 1306 [facility] Work Phone: Consult note Author Melina Garcia [facility] May 18, 2023 2:43pm Note Date/Time May 18, 2023 2:26pm [facility] [address] [place] [address] Nephrology Consult Note Signed Patient: Ruddy Palmer MR#: [id number] : 1985 Acct:[id number] Age/Sex: 37 / M Adm Date: 3 Loc: Room: [address] [place] [address] Type: ADM IN Attending Dr: Rajendra Pierce MD Copies to: MD Denis Faulkner MD Rafik Massouh, MD~ Providers Consult Date: 05/18/23 Requesting Provider: Rajendra Pierce MD Primary Care Provider: Denis Melvin MD HPI Reason for Consult: ESRD management History of Present Illness: This is a 37-year-old male with a medical history of cerebral palsy, infantile intracranial hemorrhage, hypertension, blindness, deafness, chronic respiratory failure on home oxygen, pulm hypertension, history of PE on Eliquis ,ESRD on hemodialysis was brought into the emergency room for generalized weakness. On evaluation emergency room patient had a ABG which showed pH 7.11 PCO2 70.8 PO2 79.9 bicarb 22.1. His chest x-ray showed no acute finding. Patient was placed on BiPAP due to the hypercapnic respiratory failure. Patient has a ESRD due to the solitary kidney and septic induced MCKENNA. He has been on dialysis for more than 2 years and currently goes to the [facility] twice a week schedule Monday and Monday. He currently has AV fistula and was found to have a weak thrill on admission. He had ultrasound of the fistula which showed low blood flow with multiple stenosis. Nephrology is consulted for his ESRD management during the hospital stay. Patient was seen and examined at bedside and case wasdiscussed with the bedside RN. Patient is a poor historian most of history was taken from patient chart. Patient had a multiple hospitalization during the last few weeks. His last hospitalization was due to the symptomatic anemia and E. coli bacteremia. He was discharged home on IV ertapenem. Review of Systems Review of Systems Unobtainable due to mental status [facility] Medical History A-V fistula LUE Adult hyaline membrane disease Asthma Blind Cerebral palsy Cystic BPD (bronchopulmonary dysplasia) ESRD (end stage renal disease) on dialysis M + F Hearing impaired Hypertension Non-verbal learning disorder Panacinar emphysema Pulmonary hypertension Surgical History H/O eye surgery Attempted to reattach retina x 1, 1984, 1985 H/O inguinal hernia repair 1984-right, 1985-left History of placement of ear tubes 1985, 1986 Social History Smoking Status: Never smoker Substance Use Type: None Social History Comments: Mother Meds Medications & Allergies Allergies ciprofloxacin [From Cipro] Allergy (Verified 05/17/23 12:29) Hives latex Allergy (Verified 05/17/23 12:29) Hives Home Medications bumetanide 2 mg tablet 2 mg PO QAM 04/28/23 [History Confirmed 05/17/23] clonazepam 0.5 mg tablet 0.5 mg PO TID 04/28/23 [History Confirmed 05/17/23] dextromethorphan 20 mg-quinidine 10 mg capsule (Nuedexta) 1 cap PO Q12H 04/28/23[History Confirmed 05/17/23] diltiazem HCl 30 mg tablet 30 mg PO TID 04/28/23 [History Confirmed 05/17/23] lidocaine-prilocaine 2.5 %-2.5 % topical cream 1 applic topical ONCE 04/28/23 [History Confirmed 05/17/23] metoprolol tartrate 25 mg tablet 25 mg PO BID 04/28/23 [History Confirmed 05/17/23] sildenafil (pulm.hypertension) 20 mg tablet 20 mg PO TID 04/28/23 [History Confirmed 05/17/23] vitamin B complex-vitamin C 100 mg-folic acid 1 mg tablet (Dialyvite) 1 tab PO QHS 04/28/23 [History Confirmed 05/17/23] ipratropium bromide 0.02 % solution for inhalation 500 mcg inhalation Q8H 04/29/23 [History Confirmed 05/17/23] levalbuterol HCl 1.25 mg/3 mL solution for nebulization 1.25 mg inhalation Q8H 04/29/23 [History Confirmed 05/17/23] omeprazole 20 mg tablet,delayed release 20 mg PO BID #60 tabs 05/07/23 [Rx Confirmed 05/17/23] maltodextrin 1 ea PO DAILY 05/17/23 [History Confirmed 05/17/23] Active Medications: Active Medications Acetaminophen (Acetaminophen 325 Mg Tablet) 650 mg PO Q6HR PRN PRN Reason: Pain Scale 1 - 3 or fever Stop: 05/16/24 22:34 Bumetanide (Bumetanide 2 Mg Tablet) 2 mg PO [id number]@0900 [facility] Stop: 05/17/24 08:59 Last Admin: 05/18/23 08:43 Dose: 2 mg Clonazepam (Clonazepam 0.25 Mg Tablet) 0.25 mg PO TID PRN PRN Reason: anxiety Stop: 11/13/23 22:49 Diltiazem HCl (Diltiazem 30 Mg Tablet) 30 mg PO TID [facility] Stop: 05/16/24 22:49 Last Admin: 05/18/23 13:27 Dose: 30 mg Ertapenem 0.5 gm/ Sodium (Chloride) 100 mls @ 200 mls/hr IV Q24H [facility] Stop: 05/17/24 18:59 Ipratropium [place] (Ipratropium [place] 0.5 Mg/2.5 Ml Vial.Neb) 0.5 mg INHALATION TID [facility] Stop: 05/16/24 22:59 Last Admin: 05/18/23 13:20 Dose: 0.5 mg Levalbuterol HCl (Levalbuterol Hcl *Nf* 1.25 Mg/3 Ml Vial.Neb) 1.25 mg INHALATION TID [facility]; Protocol Stop: 05/16/24 22:59 Last Admin: 05/18/23 13:20 Dose: 1.25 mg Metoprolol Tartrate (Metoprolol Tartrate 25 Mg Tablet) 25 mg PO BID [facility] Stop: 05/16/24 22:49 Last Admin: 05/18/23 08:43 Dose: 25 mg Non-Formulary Medication (Maltodextrin) 1 each PO DAILY [facility] Stop: 05/17/24 08:59 Non-Formulary Medication (Dextromethorphan-Quinidine [Nuedexta]) 1 cap PO Q12H [facility] Stop: 05/16/24 22:59 Pantoprazole Sodium (Pantoprazole 40 Mg Tablet.) 40 mg PO DAILY [facility] Stop: 05/18/24 08:59 Sildenafil Citrate (Sildenafil Citrate 20 Mg Tablet) 20 mg PO TID [facility] Stop: 05/16/24 22:49 Last Admin: 05/18/23 13:27 Dose: 20 mg Sodium Chloride (Sodium Chloride 0.9 % 10 Ml Syringe) 0 ml IV-PUSH PRN PRN PRN Reason: Flush Stop: 05/16/24 12:27 Last Admin: 05/17/23 19:14 Dose: 10 ml Sodium Chloride (Sodium Chloride 0.9 % 10 Ml Syringe) 0 ml IV-PUSH QSHIFT [facility] Stop: 05/17/24 05:59 Last Admin: 05/18/23 13:27 Dose: 10 ml Sodium Chloride (Sodium Chloride 0.9 % 10 Ml Syringe) 10 ml IV-PUSH Q8H [facility] Stop: 05/17/24 11:59 Last Admin: 05/18/23 13:27 Dose: 10 ml Sodium Chloride (Sodium Chloride 0.9 % 10 Ml Syringe) 0 ml IV-PUSH QSHIFT [facility] Stop: 05/17/24 13:59 Last Admin: 05/18/23 13:27 Dose: 10 ml Vitamin B Complex/Vit C/Folic Acid (Folic Acid/Vit Bcomp,C 1 Tab Tablet) 1 tab PO QHS [facility] Stop: 05/17/24 21:59 Exam Physical Exam Vital Signs: Temp Pulse Resp BP Pulse Ox O2 Del Method O2 Flow Rate 98.2 F 78 18 105/70 93 L BiPAP 3 05/18/23 11:23 05/18/23 13:21 05/18/23 13:21 05/18/23 11:23 05/18/23 12:50 05/18/23 11:23 05/17/23 20:44 FiO2 40 05/18/23 12:50 Narrative: General: Appears comfortable and not in distress Heart: S1-S2, no rub Lung: Bilateral air entry, no wheezing or crackles Abdomen: Soft, positive bowel sounds Extremities: No edema, no cyanosis Head: Atraumatic, normocephalic Ear: No external ear redness or tenderness Eyes: No pallor or redness Neck: No JVD or visible mass Skin: No rashes , warm to touch 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: Nonverbal, 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 Results Labs 05/18/23 04:15 05/18/23 04:15 Labs: 05/17/23 05/17/23 05/18/23 14:04 17:27 04:15 BUN 40 H 44 H Creatinine 5.78 H 6.01 H Albumin 3.5 Urine Color Yellow Urine Appearance Clear Urine pH 6.0 Ur Specific Hermon 1.006 Urine Protein Trace H Urine Glucose (UA) Normal Urine Ketones Negative Urine Occult Blood Negative Urine Nitrite Negative Ur Leukocyte Esterase Negative Urine RBC None seen Urine WBC 20-49 H Urine Bacteria None seen Radiology Impressions Impressions - last 24 hours: Impressions Chest X-Ray 05/17/23 15:51 IMPRESSION: OBSTRUCTIVE LUNG DISEASE. NO ACUTE FINDINGS. Impression dictated by: Holli Alfonso M.D.05/17/2023 4:43 PM Dictation Location: [facility]-02 A/V Fistula Ultrasound 05/18/23 05:00 IMPRESSION: This fistula has adequate size but there are several areas of stenosis noted. Overall flows are less than expected. Impression dictated by: Rojas No M.D.05/18/2023 1:35 PM Dictation Location: [place] [address] Any impression(s) listed above is documentation that was entered by the reading physician into a diagnostic report(s) for Ruddy Palmer. I have reviewed the report(s) and am incorporating any findings in the treatment plan of this patient where applicable. A&P - Nephrology Assessment/Plan (1) Acute hypercapnic respiratory failure: Assessment/Problem Details: Patient was found to have acute hypercapnic hayder failure and currently on BiPAP.. Pulmonary has been consulted currently on BiPAP. (2) ESRD (end stage renal disease) on dialysis: Assessment/Problem Details: He has ESRD due to the solitary kidney and failure to recovery after septic shock induced MCKENNA. He currently goes to the [facility] twice a week schedule. (3) Dialysis AV fistula malfunction: Assessment/Problem Details: His AV fistula showed low blood flow with multiple stenosis. (4) Anemia of renal disease: Assessment/Problem Details: Hemoglobin is within the goal. He currently receives Mircera with hemodialysis. (5) Secondary hyperparathyroidism: Assessment/Problem Details: He has a secondary hyperparathyroidism due to the ESRD. He currently on IV Hectorol with dialysis. (6) Prostatitis: Assessment/Problem Details: He is recently diagnosed to have prostatitis currently on IV ertapenem. Plan * No need for dialysis today. Next dialysis will be tomorrow as per schedule. * Will continue IV Zemplar with hemodialysis. * Will continue Aranesp once weekly with hemodialysis while he is inpatient. * Continue vent management of respiratory failure as per pulmonary. * Will consult vascular surgery for AV fistula malfunction. * Continue IV antibiotics. Pharmacy to dose medication. * Thanks for consult. We will continue follow with you. Please feel free to call us with any question. Documented By: Melina Garcia MD 05/18/23 1419 Signed By: <Electronically signed by Melina Garcia MD> 05/18/23 1443 [facility] Work Phone: Discharge summary Author Rajendra Pierce [facility] May 20, 2023 11:43am Note Date/Time May 20, 2023 11:40am [facility] [address] [place] [address] Discharge Summary Signed Patient: Ruddy Palmer MR#: [id number] : 1985 Acct:[id number] Age/Sex: 37 / M Adm Date: 3 Loc: Room: [address] [place] [address]: Rajendra Pierce MD Copies to: MD Rajendra Rutledge MD~ Providers Date of Discharge: 05/20/23 Discharging Provider: Rajendra Pierce Primary Care Provider: Denis Melvin Consults: 05/17/23 22:35 Consult to Nephrology Routine 05/17/23 22:40 Consult to Occupational Therapy Routine Consult to Physical Therapy Routine 05/17/23 23:09 Consult to Pulmonology Routine 05/18/23 14:10 Consult to Vascular Surgery Routine Discharge Diagnosis (1) Acute hypercapnic respiratory failure: (2) ESRD (end stage renal disease): (3) Anemia of renal disease: (4) Secondary hyperparathyroidism: (5) ESRD (end stage renal disease) on dialysis: (6) Cerebral palsy: (7) E coli bacteremia: Final Diagnosis Final Discharge Diagnosis: As listed above and others that are not listed Summary Hospital Course Hospital course: Mr. Palmer is a 37-year-old gentleman who is known to have cerebral palsy, blindness, deafness, bedbound status and significant cognitive and functional disability. He is known to have end-stage renal disease on hemodialysis. Patient came in with lethargy and change in mental status. He was found to haverecurrent hypercapnic respiratory failure requiring the use of BiPAP. Patient had improvement and resolution of the change in mental status with BiPAPand the correction of his high hypercapnia. Patient was seen by pulmonology team. Given his recurrent episodes of hypercapnia, pulmonary team recommended initiation of noninvasive ventilation athome. This was arranged and ready to be delivered to his home. The plan is to teach his mom how to operate the machine at home. Patient had received hemodialysis without any complications Patient has been on intravenous antibiotic after he was recently admitted with UTI and bacteremia. Patient will continue to receive IV antibiotic at home to complete the recommended course. Patient has multiple complex medical issues as listed above and others that are not listed. All appear to be stable. Patient is awake. Unable to engage. Unable to answer any questions. Nonverbal. Patient is back to baseline state. I do not have any clear or strong clinical justification to extend inpatient hospitalization. Patient however will require close and the frequent monitoringas well as additional work-up, investigation and therapeutic intervention that could take place from this point on post discharge. That is to prevent relapse,decompensation, rehospitalization and other medical implications. Patient will be arranged to have a hospital bed to help with change position, skin care, feed while in upright position to prevent aspiration. Patient will be arranged to have noninvasive ventilation at home. Patient will be arranged to have home health care. I instructed patient to ask her primary care doctor to obtain [facility] record entirely to address abnormalities seen on labs and imagingand to follow-up on needed medical care in the outpatient setting. Time Spent with Patient Time spent providing/coordinating discharge services (# min): 60 Diagnostic Studies Completed and Pending Studies Pending studies at discharge: 05/17/23 14:13 Blood Culture Stat Preliminary micro results at discharge 05/17/23 14:13 Blood Culture - Preliminary Blood - Right Antecubital No Growth 2 Days 05/17/23 14:18 Blood Culture - Preliminary Blood - Pic Line No Growth 2 Days Labs on day of discharge: 05/20/23 05:00: PHA Creatinine Clear 23.47, Sodium 137, Potassium 3.9, Chloride 103, Carbon Dioxide 29.3, Anion Gap 8.6, BUN 21 D, Creatinine 3.76 H D, Est GFR(CKD- EPI) 20.161, Glucose 93, Calcium 9.0, Magnesium 2.0 Exam Physical Exam Vital Signs: Temp Pulse Resp BP Pulse Ox O2 Del Method O2 Flow Rate 98.0 F 68 16 129/73 94 L Nasal Cannula 3 05/20/23 08:00 05/20/23 08:00 05/20/23 08:00 05/20/23 08:00 05/20/23 08:00 05/20/23 08:00 05/20/23 08:00 FiO2 40 05/20/23 06:31 Narrative: CONST- Thin, features of cerebral palsy. HEAD - Normocephalic and atraumatic EENT-Blind, bilateral eye atrophy. NECK-Supple, no cervical lymphadenopathy CARDIAC-normal rate, regular rhythm, S1 & S2. PULM-diminished, bipap on, no accessory muscle use or cough noted ABD - Soft.? Bowel sounds are normal. No distention. No tenderness noted EXTREM-no edema BLE calves, nontender SKIN- W/D good turgor MS-unable to assess as patient does not participate in exam, AV fistula to LUE NEURO- nonverbal, upper and lower extremities muscle atrophy. Upper and lower extremity joints contraction PSYCH-unable to assess Discharge Plan Discharge Plan Patient Disposition: Home Additional Instructions: I may not have addressed or treated all of your medical illnesses or the abnormal blood work or imaging studies during this hospitalization. Please ask your primary care provider to obtain [facility] records entirely to follow up on all of the abnormal physical, laboratory, and imaging findings that I have not addressed. Please return back to the emergency room or seek medical attention if your symptoms worsen or return. Discharging you from [facility] does not mean that your medical care ends here and now. You may still need additional monitoring, work up, investigation, and treatment plan to be handled from this point on by out patient providers including your primary care provider and specialists. For any medication question, please contact your retail pharmacist or your primary care provider. Thank you. Prescriptions: New ertapenem 1 gram recon soln 0.5 g IV DAILY 15 Days Qty: 15 0RF Continued bumetanide 2 mg Tablet 2 mg PO QAM Rx Instructions: only on non-dialysis days. (T,W,T,S,S) clonazepam 0.5 mg Tablet 0.5 mg PO TID lidocaine-prilocaine 2.5-2.5 % Cream 1 applic TOPICAL ONCE Rx Instructions: 45 minutes prior to dialysis diltiazem HCl 30 mg Tablet 30 mg PO TID metoprolol tartrate 25 mg Tablet 25 mg PO BID sildenafil (pulm.hypertension) 20 mg Tablet 20 mg PO TID Rx Instructions: administer doses at least 4-6 hours apart Dialyvite 100-1 mg Tablet 1 tab PO QHS Nuedexta 20-10 mg Capsule 1 cap PO Q12H levalbuterol HCl 1.25 mg/3 mL solution for nebulization 1.25 mg INHALATION Q8H Patient Comments: USE 1 VIAL VIA NEBULIZER EVERY 8 HOURS ipratropium bromide 0.02 % solution 500 mcg inhalation Q8H Patient Comments: USE 1 VIAL VIA NEBULIZER EVERY 8 HOURS omeprazole 20 mg Tablet,Delayed Release (Dr/Ec) 20 mg PO BID Qty: 60 0RF maltodextrin Powder 1 ea PO DAILY Rx Instructions: given mixed in apple juice. Other Ambulatory Orders: DME Home Medical Equipment (Routine) Timeframe: [id number] Location: Determined by Patient Ordered By: Rajendra Pierce Follow Up: Kostas Wade MD [Active Staff] - 05/25/23 2:30 pm (Please keep previously scheduled follow up appointment with Infectious Disease.) Quinton Gonzales [Referring] - Documented By: Rajendra Pierce MD 05/20/23 1136 Signed By: <Electronically signed by Rajendra Pierce MD> 05/20/23 1143 [facility] Work Phone: Evaluation note* Diagnosis ESRD (end stage renal disease) on dialysis (HCC) End stage renal disease Preop testing Preoperative examination, unspecified documented in this encounter [employer] Phone: evaluation note* Diagnosis Stenosis of AV fistula, initial encounter ([facility]) documented in this encounter [facility] [employer] Phone: evalnulyfw note* Diagnosis Stenosis of AV fistula, initial encounter ([facility]) documented in this encounter [facility] [employer] Phone: evalnoesup note* Diagnosis Onset Date Resolution Status Chronic renal failure acute Pneumonia acute [facility] Work Phone: Evaluation note* Diagnosis Onset Date Resolution Status Anemia of renal disease acut e Blood in stool acute Cerebral palsy acute Counseling regarding advance d care planning and goals of care acute E coli bacteremia acute ESRD (end stage renal disease) acute Heme + stool acute Pneumonia acute Prostatitis acute Secondary hyperparathyroidism acute Sepsis associated hypotension acute [facility] Work Phone: Evaluation note* Diagnosis Onset Date Resolution Status Anemia of renal disease acut e Blood in stool acute Cerebral palsy acute Counseling regarding advance d care planning and goals of care acute E coli bacteremia acute ESRD (end stage renal disease) acute Heme + stool acute Pneumonia acute Prostatitis acute Secondary hyperparathyroidism acute Sepsis associated hypotension acute Anemia of renal disease acut e Cerebral palsy acute Symptomatic anemia acute [facility] Work Phone: Evaluation note* Diagnosis Onset Date Resolution Status Anemia of renal disease acut e Blood in stool acute Cerebral palsy acute Counseling regarding advance d care planning and goals of care acute E coli bacteremia acute ESRD (end stage renal disease) acute Heme + stool acute Pneumonia acute Prostatitis acute Secondary hyperparathyroidism acute Sepsis associated hypotension acute Anemia acute Anemia of renal disease acut e Cerebral palsy acute Counseling regarding advance d care planning and goals of care acute E coli bacteremia acute ESRD (end stage renal disease) acute Symptomatic anemia [facility] Work Phone: Evaluation note* Diagnosis Onset Date Resolution Status Anemia of renal disease acut e Blood in stool acute Cerebral palsy acute Counseling regarding advance d care planning and goals of care acute E coli bacteremia acute ESRD (end stage renal disease) acute Heme + stool acute Pneumonia acute Prostatitis acute Secondary hyperparathyroidism acute Sepsis associated hypotension acute Anemia acute Anemia of renal disease acut e Cerebral palsy acute Counseling regarding advance d care planning and goals of care acute E coli bacteremia acute ESRD (end stage renal disease) acute Symptomatic anemia acute A-V fistula acute Acute hypercapnic respiratory failure acute Anemia acute Cerebral palsy acute Counseling regarding advance d care planning and goals of care acute ESRD (end stage renal disease) acute ESRD (end stage renal disease) on dialysis acute Weakness acute [facility] Work Phone: Evaluation note* Diagnosis Onset Date Resolution Status Anemia of renal disease acut e Blood in stool acute Cerebral palsy acute Counseling regarding advance d care planning and goals of care acute E coli bacteremia acute Heme + stool acute Pneumonia acute Prostatitis acute Secondary hyperparathyroidism acute Sepsis associated hypotension acute Anemia acute Anemia of renal disease acut e Cerebral palsy acute Counseling regarding advance d care planning and goals of care acute E coli bacteremia acute Symptomatic anemia acute A-V fistula acute Acute hypercapnic respiratory failure acute Acute on chronic respiratory failure with hypoxia and hypercapnia acute Anemia acute Anemia of renal disease acut e Cerebral palsy acute Counseling regarding advance d care planning and goals of care acute Dialysis AV fistula malfunction acute E coli bacteremia acute ESRD (end stage renal disease) on dialysis acute Pneumonia acute Prostatitis acute Secondary hyperparathyroidism acute Sepsis associated hypotension acute Weakness acute [facility] Work Phone: Evaluation note* Diagnosis Problem with vascular access- Primary Problem with vascular access AV graft thrombosis, initial encounter ([facility]) Malfunction of arteriovenous graft, initial encounter ([facility]) Cognitive developmental delay Cerebral palsy, unspecified type ([facility]) AV graft thrombosis, initial encounter ([facility]) E-coli UTI Urinary tract infection, site not specified Acute on chronic respiratory failure with hypoxia (HCC) RILEY (obstructive sleep apnea) Obstructive sleep apnea (adult) (pediatric) Cognitive developmental delay Cerebral palsy (HCC) Infantile cerebral palsy, unspecified ESRD (end stage renal disease) (HCC) End stage renal disease Anemia, chronic disease Anemia of other chronic disease Malfunction of arteriovenous graft, initial encounter ([facility]) documented [facility]* Diagnosis History of pulmonary embolism Personal history of venous thrombosis and embolism [facility] Diagnosis Jerking- Primary Abnormal involuntary movements PBA (pseudobulbar affect) 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, spinal cord, and nervous system Cervical paraspinal muscle spasm Spasm of muscle Agitation Other and unspecified special symptom or syndrome, not elsewhere classified Agitation- Primary Other and unspecified special symptom or syndrome, not elsewhere classified Jerking Abnormal involuntary movements PBA (pseudobulbar affect) 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, spinal cord, and nervous system Pseudobulbar affect Agitation Other and unspecified special symptom or syndrome, not elsewhere classified Pseudobulbar affect documented in this encounter [facility] HealthcareEvaluation note* Diagnosis Complication of arteriovenous dialysis fistula- Primary Other complications due to other vascular device, implant, and graft S/P arteriovenous (AV) fistula creation Dialysis AV fistula malfunction (HCC) Mechanical complication of other vascular device, implant, and graft documented in this encounter [facility] HealthHistory and physical note Author Michael Gonzalez [facility] May 09, 2023 8:02pm Note Date/Time May 09, 2023 7:01pm [facility] [address] [place] [address] Hospitalist H&P Signed Patient: Ruddy Palmer MR#: [id number] : 1985 Acct:[id number] Age/Sex: 37 / M Adm Date: 3 Loc: Room: [address] [place] [address] Type: ADM IN Attending Dr: Michael Gonzalez MD Copies to: MD Michael Rutledge MD~ HPI DATE OF EXAMINATION: 05/09/23 CHIEF COMPLAINT: Generalized weakness HISTORY OF PRESENT ILLNESS: Patient is a 37-year-old male past medical history of hypertension, 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 No report of nausea, vomiting, abdominal pain, melena, coffee- ground emesis, rectal bleed. Patient had dialysis session yesterday which they could not remove any fluids due to hypotension. Patient normally gets around as per mother and participate in activities but currently has been very weak. He was discharged recently fromour facility on ertapenem for E. coli bacteremia with suspected source of prostatitis with plan to complete 4 weeks of antibiotics. Mother also reports that he has been waking up with redness and puffiness under his right eye, no other rash on his body, she suspects side effects from ertapenem. It did go resolve on its own. She brought him in today for further evaluation and management. In the ER, he was found to have low hemoglobin compared to his baseline with borderline blood pressure which appears to be symptomatic anemia for which she was ordered 1 unit of blood in the ER, occult blood was positive. Decision was made to admit for further evaluation and management. Review of Systems Review of Systems Unobtainable due to mental condition PMFSH Medical History Adult hyaline membrane disease Asthma Blind Cerebral palsy Cystic BPD (bronchopulmonary dysplasia) Hearing impaired Hypertension Non-verbal learning disorder Panacinar emphysema Pulmonary hypertension Social History Smoking Status: Never smoker Substance Use Type: None Meds Medications and Allergies Allergies ciprofloxacin [From Cipro] Allergy (Verified 05/09/23 15:47) Hives latex Allergy (Verified 05/09/23 15:47) Hives Home Medications apixaban 2.5 mg tablet (Eliquis) 2.5 mg PO BID 04/28/23 [History Confirmed 05/09/23] bumetanide 2 mg tablet 2 mg PO QAM 04/28/23 [History Confirmed 05/09/23] clonazepam 0.5 mg tablet 0.5 mg PO TID 04/28/23 [History Confirmed 05/09/23] dextromethorphan 20 mg-quinidine 10 mg capsule (Nuedexta) 1 cap PO Q12H 04/28/23[History Confirmed 05/09/23] diltiazem HCl 30 mg tablet 30 mg PO TID 04/28/23 [History Confirmed 05/09/23] lidocaine-prilocaine 2.5 %-2.5 % topical cream 1 applic topical ONCE 04/28/23 [History Confirmed 05/09/23] metoprolol tartrate 25 mg tablet 25 mg PO BID 04/28/23 [History Confirmed 05/09/23] sildenafil (pulm.hypertension) 20 mg tablet 20 mg PO TID 04/28/23 [History Confirmed 05/09/23] vitamin B complex-vitamin C 100 mg-folic acid 1 mg tablet (Dialyvite) 1 tab PO DAILY 04/28/23 [History Confirmed 05/09/23] ipratropium bromide 0.02 % solution for inhalation 2.5 ml inhalation Q8H 04/29/23 [History Confirmed 05/09/23] levalbuterol HCl 1.25 mg/3 mL solution for nebulization 1.25 mg inhalation Q8H 04/29/23 [History Confirmed 05/09/23] ertapenem 1 gram solution for injection 0.5 g IV Q24H 28 days #28 ea 05/03/23 [Rx Confirmed 05/09/23] omeprazole 20 mg tablet,delayed release 20 mg PO BID #60 tabs 05/07/23 [Rx Confirmed 05/09/23] Exam Physical Exam Vital Signs: Temp Pulse Resp BP Pulse Ox O2 Del Method O2 Flow Rate 98.4 F 72 24 111/53 L 99 Nasal Cannula 3 05/09/23 16:02 05/09/23 17:46 05/09/23 17:00 05/09/23 17:46 05/09/23 17:46 05/09/23 17:46 05/09/23 17:46 Narrative: Const General: lethargic HEENT normal oropharyngeal mucosa without any ulcers or exudates Eyes: Conjunctiva normal Pulmonary Auscultation: Diminished breath sounds, no crackles, no wheezes Cardiovascular Rate: normal rate Rhythm: regular rhythm Heart Sounds: S1 normal, S2 normal and no murmurs GI Inspection: non-distended Palpation: soft, not firm and nontender. No rigidity or rebound. Deferred Neuro General: lethargic and somnolent, limited exam, unable to participate. Extrem General: no cyanosis, no pedal edema Results Lab Results Labs: Laboratory Last Values Corrected WBC 10.0 X10E3/uL (4.1-10.5) 05/09/23 16:23 Uncorrected WBC Count 10.0 x10E3/uL (4.1-10.5) 05/09/23 16:23 RBC 2.53 X10E6/uL (3.90-5.60) L 05/09/23 16:23 Hgb 7.6 g/dL (13.0-17.0) L 05/09/23 16:23 Hct 24.3 % (38.8-50.0) L 05/09/23 16:23 MCV 95.9 fl (83.5-101) 05/09/23 16:23 MCH 30.1 pg (27.5-35.2) 05/09/23 16:23 MCHC 31.4 g/dL (32.5-35.6) L 05/09/23 16:23 RDW 14.7 % (12.0-14.8) 05/09/23 16:23 Plt Count 362 x10E3/uL (150-450) 05/09/23 16:23 MPV 7.4 fl (6.6-10.1) 05/09/23 16:23 Neut % (Auto) 74.5 % (.) 05/09/23 16:23 Lymph % (Auto) 13.3 % (.) 05/09/23 16:23 [place] % (Auto) 10.8 % (.) 05/09/23 16:23 Eos % (Auto) 1.2 % (.) 05/09/23 16:23 Baso % (Auto) 0.2 % (.) 05/09/23 16:23 Nucleat RBC Rel Count 0.1 /100 WBC (0-0.5) 05/09/23 16:23 Neut # (Auto) 7.5 x10E3/uL (1.8-7.7) 05/09/23 16:23 Lymph # (Auto) 1.3 x10E3/uL (1.00-4.8) 05/09/23 16:23 [place] # (Auto) 1.1 x10E3/uL (0.0-0.8) H 05/09/23 16:23 Eos # (Auto) 0.1 x10E3/uL (0.0-0.45) 05/09/23 16:23 Baso # (Auto) 0.0 x10E3/uL (0.0-0.2) 05/09/23 16:23 Monocyte Dist Width 18.33 % (0.00-20.00) 05/09/23 16:23 PHA Creatinine Clear 19.82 05/09/23 16:23 Sodium 129 mmol/L (136-145) L 05/09/23 16:23 Potassium 4.8 mmol/L (3.5-5.1) 05/09/23 16:23 Chloride 99 mmol/L (98-107) 05/09/23 16:23 Carbon Dioxide 23.8 mmol/L (21.0-31.0) 05/09/23 16:23 Anion Gap 11.0 mEq/L (6.0-15.0) 05/09/23 16:23 BUN 64 mg/dL (7-25) H 05/09/23 16:23 Creatinine 4.81 mg/dL (0.70-1.30) H 05/09/23 16:23 Est GFR (CKD-EPI) 15.003 mL/Min 05/09/23 16:23 Glucose 103 mg/dL (70-100) H 05/09/23 16:23 Lactic Acid 0.4 mmol/L (0.5-2.2) 05/09/23 16:23 Calcium 7.9 mg/dL (8.6-10.3) L 05/09/23 16:23 Total Bilirubin 0.3 mg/dl (0.3-1.0) 05/09/23 16:23 Direct Bilirubin 0.00 mg/dL (0.03-0.18) L 05/09/23 16:23 Indirect Bilirubin 0.3 mg/dL 05/09/23 16:23 AST 13 U/L (13-39) 05/09/23 16:23 ALT 13 U/L (7-52) 05/09/23 16:23 Alkaline Phosphatase 79 U/L (34-104) 05/09/23 16:23 Total Creatine Kinase 31 U/L (30-223) 05/09/23 16:23 Troponin I High Sens 7.5 pg/mL (0.0-20.0) 05/09/23 16:23 B-Natriuretic Peptide 787.0 pg/mL (5-100) H 05/09/23 16:23 Total Protein 5.3 gm/dL (6.4-8.9) L 05/09/23 16:23 Albumin 3.2 gm/dL (3.5-5.7) L 05/09/23 16:23 Globulin 2.1 gm/dL 05/09/23 16:23 Albumin/Globulin Ratio 1.5 05/09/23 16:23 Assessment & Plan Assessment/Plan (1) Symptomatic anemia: (2) Cerebral palsy: (3) Anemia of renal disease: Plan Acute blood loss anemia Symptomatic anemia Concern for GI bleed -Vitals relatively stable on admission -Hemoglobin 7.6 on admission. He will be transfused 1 unit in ER. Dropped from 8.8 (05/06/2023). Follow-up H&H every 6 hours -Occult blood positive -Obtain 2 large bore IV access -Transfuse as needed to keep Hb above 8 or symptomatic anemia or ongoing bleeding -Renal diet -Protonix IV BID -Antiemetics IV/IM as directed -Hold antiplatelets and anticoagulation -Avoid NSAIDs -Will consider GI consult if any signs of overt GI bleed since he was deemed high risk EGD. -Monitor on telemetry -Monitor for any overt GI bleed/hemodynamic status E.coli Bacteremia- being treated Pneumonia Suspected prostatitis source -Discharged recently from our facility with PICC, plan to complete 4 weeks of IVAB. Reported by family concern for allergic reaction/side effects while infusingErtapenem. Will change to Meropenem for now and watch for any rash, swelling or other side effects. ESRD on HD Chronic hypoxic respiratory failure on home oxygen -Oxygen requirements seems at baseline -No indication for urgent HD at this time. He had HD session yesterday and they did not remove fluids due to hypotension. -Nephrology consult to maintain HD schedule and fluids removal. 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 We will hold his blood pressure medications due to soft BP and Klonopin due to mental status Diet: Renal diet DVT ppx:SCDs, hold Eliquis for now GI ppx: Protonix Code status: DNR CCA without intubation Disposition: Inpatient status Discussed with patient at bedside. All questions answered. In agreement with theabove plan IP vs OBS Justification Based on differential dx, clinical care plan, and risk of adverse events, if untreated, in my clinical judgement this patient requires an acute care setting as: INPATIENT because of an expectation of an over 2 midnight stay. Estimated length of stay (# of days): 3 Documented By: Michael Gonzalez MD 05/09/23 18 52 Signed By: <Electronically signed by Michael Gonzalez MD> 05/09/232001 [facility] Work Phone: History and physical note Author [facility] May 19, 2023 8:09pm Note Date/Time May 17, 2023 10:09pm [facility] [address] [place] [address] Hospitalist H&P Signed Patient: Ruddy Palmer MR#: [id number] : 1985 Acct:[id number] Age/Sex: 37 / M Adm Date: 3 Loc: Room: [address] [place] [address] Type: ADM IN Attending Dr: Rajendra Pierce MD Copies to: MD Denis Dominguez MD Paula G Smith, APRN Rafik Massouh, MD~ HPI DATE OF EXAMINATION: 05/17/23 CHIEF COMPLAINT: weakness HISTORY OF PRESENT ILLNESS: Mr. Palmer is a 37-year-old male with a PMH of cerebral palsy, blindness, ESRD on HD, asthma, emphysema, severe pulmonary hypertension the presents to the emergency room today for complaints of weakness, fatigue. Patient seen and evaluated in the emergency room, resting on the cart quietly, mother at bedside. Mother states that she noticed last night after dinner the patient almost fell forward when trying to pull his pants up in the bathroom. She states she noticed he was snoring a lot last night horrendous snoring and this morning hewoke up and there was a large amount of slimy saliva with chunks on the bed, shethinks that he had thrown up in his sleep. She states his gait was unsteady when she walked into the bathroom he needed a lot of redirection, she got him inthe bathtub we gave him a bath and when he went to stand up he kind of slumped down into the tub and had to pick him up out of the bottom of the bathtub. Thatshe decided to bring him here. She had also noted that his SPO2 at home had been in the 90s. He has had some episodes of diarrhea. She states that he was just discharged on Monday and had been doing well until last night. EKG in the ER shows normal sinus rhythm. Chest x-ray shows no acute process, obstructive lung disease, right-sided PICC. Lab work was essentially unremarkable, creatinine down to 5.78, BUN 40?these are improved from previous hospitalization. Patient was going to be discharged to home but they noticed a difference in his breathing so they performed an ABG?pH 7.11, PCO2 70.8, PO2 79.9, bicarb 22.1. Patient was placed on BiPAP 10/5 with a rate of 12 and an FiO2 of 40%. He will be admitted to the progressive floor under the care of thehospitalist team for further evaluation and treatment. Review of Systems Review of Systems Unobtainable due to mental condition [facility] Medical History (Updated 05/17/23 @ 22:22 by Terra Cardoza APRN) A-V fistula LUE Adult hyaline membrane disease Asthma Blind Cerebral palsy Cystic BPD (bronchopulmonary dysplasia) Hearing impaired Hypertension Non-verbal learning disorder Panacinar emphysema Pulmonary hypertension Surgical History (Updated 05/17/23 @ 22:18 by Terra Cardoza APRN) H/O eye surgery Attempted to reattach retina x 1, 1984, 1985 H/O inguinal hernia repair 1984-right, 1985-left History of placement of ear tubes 1985, 1986 Social History Marital Status: Single Household Members: family Housing: house Smoking Status: Never smoker Substance Use Type: None Current Occupational Status: disabled Social History Comments: lives with parents, mother is caregiver at home, 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 Meds Medications and Allergies Allergies ciprofloxacin [From Cipro] Allergy (Verified 05/17/23 12:29) Hives latex Allergy (Verified 05/17/23 12:29) Hives Home Medications bumetanide 2 mg tablet 2 mg PO QAM 04/28/23 [History Confirmed 05/17/23] clonazepam 0.5 mg tablet 0.5 mg PO TID 04/28/23 [History Confirmed 05/17/23] dextromethorphan 20 mg-quinidine 10 mg capsule (Nuedexta) 1 cap PO Q12H 04/28/23[History Confirmed 05/17/23] diltiazem HCl 30 mg tablet 30 mg PO TID 04/28/23 [History Confirmed 05/17/23] lidocaine-prilocaine 2.5 %-2.5 % topical cream 1 applic topical ONCE 04/28/23 [History Confirmed 05/17/23] metoprolol tartrate 25 mg tablet 25 mg PO BID 04/28/23 [History Confirmed 05/17/23] sildenafil (pulm.hypertension) 20 mg tablet 20 mg PO TID 04/28/23 [History Confirmed 05/17/23] vitamin B complex-vitamin C 100 mg-folic acid 1 mg tablet (Dialyvite) 1 tab PO QHS 04/28/23 [History Confirmed 05/17/23] ipratropium bromide 0.02 % solution for inhalation 500 mcg inhalation Q8H 04/29/23 [History Confirmed 05/17/23] levalbuterol HCl 1.25 mg/3 mL solution for nebulization 1.25 mg inhalation Q8H 04/29/23 [History Confirmed 05/17/23] omeprazole 20 mg tablet,delayed release 20 mg PO BID #60 tabs 05/07/23 [Rx Confirmed 05/17/23] maltodextrin 1 ea PO DAILY 05/17/23 [History Confirmed 05/17/23] Exam Physical Exam Vital Signs: Temp Pulse Resp BP Pulse Ox O2 Del Method O2 Flow Rate 98.8 F 83 18 116/58 L 94 L Nasal Cannula 3 05/17/23 12:34 05/17/23 21:34 05/17/23 21:34 05/17/23 20:44 05/17/23 21:21 05/17/23 20:44 05/17/23 20:44 FiO2 40 05/17/23 21:21 Narrative: CONST- Appears well -developed and well nourished. Thin HEAD - Normocephalic and atraumatic EENT-Blind, conjunctive are non-erythemic, moist oral mucosa, pharynx clear NECK-Supple, no cervical lymphadenopathy CARDIAC-normal rate, regular rhythm, S1 & S2. PULM-diminished, fine crackles anterior and posterior, bipap, no accessory muscle use or cough noted ABD - Soft. Bowel sounds are normal. No distention. No tenderness EXTREM-no edema BLE calves, nontender SKIN- W/D good turgor MS- MAEX4 spontaneously with equal with equal strength, AV fistula to LUE, weak thrill noted to lower portion NEURO- nonverbal, tongue midline, equal facial symmetry, no focal motor deficits PSYCH-Mood, affect, and behavior appropriate Results Lab Results Labs: Laboratory Last Values Corrected WBC 10.6 X10E3/uL (4.1-10.5) H 05/17/23 14:04 Uncorrected WBC Count 10.6 x10E3/uL (4.1-10.5) H 05/17/23 14:04 RBC 3.56 X10E6/uL (3.90-5.60) L 05/17/23 14:04 Hgb 10.6 g/dL (13.0-17.0) L 05/17/23 14:04 Hct 33.3 % (38.8-50.0) L 05/17/23 14:04 MCV 93.5 fl (83.5-101) 05/17/23 14:04 MCH 29.9 pg (27.5-35.2) 05/17/23 14:04 MCHC 32.0 g/dL (32.5-35.6) L 05/17/23 14:04 RDW 14.7 % (12.0-14.8) 05/17/23 14:04 Plt Count 266 x10E3/uL (150-450) 05/17/23 14:04 MPV 7.2 fl (6.6-10.1) 05/17/23 14:04 Neut % (Auto) 71.3 % (.) 05/17/23 14:04 Lymph % (Auto) 9.9 % (.) 05/17/23 14:04 [place] % (Auto) 14.0 % (.) 05/17/23 14:04 Eos % (Auto) 4.0 % (.) 05/17/23 14:04 Baso % (Auto) 0.8 % (.) 05/17/23 14:04 Nucleat RBC Rel Count 0.3 /100 WBC (0-0.5) 05/17/23 14:04 Neut # (Auto) 7.6 x10E3/uL (1.8-7.7) 05/17/23 14:04 Lymph # (Auto) 1.1 x10E3/uL (1.00-4.8) 05/17/23 14:04 [place] # (Auto) 1.5 x10E3/uL (0.0-0.8) H 05/17/23 14:04 Eos # (Auto) 0.4 x10E3/uL (0.0-0.45) 05/17/23 14:04 Baso # (Auto) 0.1 x10E3/uL (0.0-0.2) 05/17/23 14:04 Monocyte Dist Width 18.65 % (0.00-20.00) 05/17/23 14:04 Sample Site Right brachial 05/17/23 20:37 ABG pH 7.11 (7.35-7.45) L* 05/17/23 20:37 ABG pCO2 70.8 mmHg (35.0-45.0) H* 05/17/23 20:37 ABG pO2 79.9 mmHg (80.0-100.0) L 05/17/23 20:37 ABG HCO3 22.1 mmol/L (23.0-29.0) L 05/17/23 20:37 ABG Total CO2 24.3 mmol/L (23.0-27.0) 05/17/23 20:37 ABG O2 Saturation 95.3 % (95.0-100.0) 05/17/23 20:37 ABG O2 Content 6.8 mmol/L (6.6-9.7) 05/17/23 20:37 ABG Base Excess -8.0 mmol/L (-3.0-3.0) L 05/17/23 20:37 FiO2 28 % 05/17/23 20:37 Critical Value 05/17/23 20:37 PHA Creatinine Clear 15.56 05/17/23 14:04 Sodium 132 mmol/L (136-145) L 05/17/23 14:04 Potassium 4.7 mmol/L (3.5-5.1) 05/17/23 14:04 Chloride 102 mmol/L (98-107) 05/17/23 14:04 Carbon Dioxide 26.1 mmol/L (21.0-31.0) 05/17/23 14:04 Anion Gap 8.6 mEq/L (6.0-15.0) 05/17/23 14:04 BUN 40 mg/dL (7-25) H 05/17/23 14:04 Creatinine 5.78 mg/dL (0.70-1.30) H 05/17/23 14:04 Est GFR (CKD-EPI) 12.034 mL/Min 05/17/23 14:04 Glucose 105 mg/dL (70-100) H 05/17/23 14:04 Calcium 8.8 mg/dL (8.6-10.3) 05/17/23 14:04 Total Bilirubin 0.3 mg/dl (0.3-1.0) 05/17/23 14:04 Direct Bilirubin 0.00 mg/dL (0.03-0.18) L 05/17/23 14:04 Indirect Bilirubin 0.3 mg/dL 05/17/23 14:04 AST 14 U/L (13-39) 05/17/23 14:04 ALT 10 U/L (7-52) 05/17/23 14:04 Alkaline Phosphatase 100 U/L (34-104) 05/17/23 14:04 Total Creatine Kinase 26 U/L (30-223) L 05/17/23 14:04 Troponin I High Sens 10.8 pg/mL (0.0-20.0) 05/17/23 14:04 Total Protein 5.8 gm/dL (6.4-8.9) L 05/17/23 14:04 Albumin 3.5 gm/dL (3.5-5.7) 05/17/23 14:04 Globulin 2.3 gm/dL 05/17/23 14:04 Albumin/Globulin Ratio 1.5 05/17/23 14:04 Lipase 32.0 U/L (11.0-82.0) 05/17/23 14:04 Urine Color Yellow (Yellow) 05/17/23 17:27 Urine Appearance Clear (Clear) 05/17/23 17:27 Urine pH 6.0 (5.0-9.0) 05/17/23 17:27 Ur Specific [place] 1.006 (1.001-1.030) 05/17/23 17:27 Urine Protein Trace mg/dL (Negative) H 05/17/23 17:27 Urine Glucose (UA) Normal mg/dL (Normal) 05/17/23 17:27 Urine Ketones Negative (Negative) 05/17/23 17:27 Urine Occult Blood Negative (Negative) 05/17/23 17:27 Urine Nitrite Negative (Negative) 05/17/23 17:27 Urine Bilirubin Negative (Negative) 05/17/23 17:27 Urine Urobilinogen Normal mg/dL (Normal) 05/17/23 17:27 Ur Leukocyte Esterase Negative (Negative) 05/17/23 17:27 Urine RBC None seen /HPF (0-4) 05/17/23 17:27 Urine WBC 20-49 /HPF (0-4) H 05/17/23 17:27 Ur Squamous Epith Cells None seen /HPF (0-2) 05/17/23 17:27 Urine Bacteria None seen (None Seen) 05/17/23 17:27 Hyaline Casts None seen /LPF (0-8) 05/17/23 17:27 Blood Type A Positive 05/17/23 14:04 Antibody Screen Negative 05/17/23 14:04 ABG Interpretation ABG results: 05/17/23 20:37 ABG pH 7.11 L* ABG pCO2 70.8 H* ABG pO2 79.9 L ABG HCO3 22.1 L ABG Total CO2 24.3 ABG O2 Saturation 95.3 ABG O2 Content 6.8 ABG Base Excess -8.0 L Assessment & Plan Assessment/Plan (1) Acute hypercapnic respiratory failure: (2) Weakness: (3) ESRD (end stage renal disease) on dialysis: (4) A-V fistula: Plan Acute hypercapnic respiratory failure Chronic hypoxic respiratory failure?wears oxygen at all times at home ? Continue BiPAP overnight and as needed ? Patient wears 3 L nasal cannula at all times ? Repeat ABG in a.m. Weakness and fatigue ? 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 Consult nephrology Left upper extremity AV fistula?weak thrill noted, patient has had fistula declotted before ? US AV fistula in am Chronic conditions E. coli bacteremia?continue ertapenem Hearing impaired, blindness?assist with mealtimes Cerebral palsy Severe pulmonary hypertension?continue sildenafil HTN?monitor, continue diltiazem, metoprolol, Bumex?not on hemodialysis days Panacinar emphysema, bronchopulmonary dysplasia, asthma?continue nebulizers DVT PPx-SCDs, nonpharmacological therapy due to anemia, recent GI bleed Diet order-pur?ed CODE STATUS-DNR CCA without intubation as discussed with mother and prior records IP vs OBS Justification Based on differential dx, clinical care plan, and risk of adverse events, if untreated, in my clinical judgement this patient requires an acute care setting as: INPATIENT because of an expectation of an over 2 midnight stay. Estimated length of stay (# of days): 3 Documented By: Terra Cardoza APRN 05/17/232208 Signed By: <Electronically signed by VICTORIA Cardoza> 05/17/234 <Electronically signed by Spencer Dyson MD> 05/19/232008 [facility] Work Phone: History general Narrative - Reported* Type Description Date Medical History blind Medical History hearing impared Medical History non verbal Medical History mental retardation Medical History mild Cerebral palsy Medical History HTN Medical History chronic constipation Medical History incontinence Medical History asthma Medical History inability to chew Medical History premature Medical History BPD Medical History hyaline membrane disease Medical History first 5 months of life on vent Medical History first 1.5 years on oxygen Medical History ESRD ON DIALYSIS Medical History SECONDARY HYPERPARATHYROIDISM Surgical History central IV incerted 1984 Surgical History inguinal hurnia repair right an d left side 1985 Surgical History eye surgery 1985 Surgical History ear tubes X2 1985 Surgical History eye surgery (attempt 2) 1985 Surgical History umbilical hurnia repair/ circum cision 1988 Surgical History A & D 1991 Surgical History molar extraction 2005 Surgical History ear canal cleaning x 5 2006-201 4 Surgical History entropion repair of right lower lid x2 2011 Hospitalization History see above [facility] Other Hospital Discharge instructions* Instructions* Chula Curry, DO - 01/18/2022 Surgery Patient Discharge Instructions Discharge Date: 01/18/2022 Discharged To: Home Medications: Tylenol as prescribed for pain control. WOUND CARE: Do not remove top dressing for 48 hrs. There are sutures in place. Leave in place until follow up visit. BATHING: Ok to shower in 48 hours. Wash over incisions with soap and water daily. Cover with any dry dressing such as a gauze pad WALKING: Yes LIFTING: Avoid lifting heavy objects with the left upper extremity. DIET: Ok to resume regular diet. SPECIAL INSTRUCTIONS: After you leave the hospital, call your doctor if any of the following occurs: Pain or symptoms that worsen Other new symptoms Signs of infection, including fever and chills Nausea and/or vomiting that you can't control with the medications you were given Pain that you can't control with the medications you've been given Excessive tenderness or swelling Changes in bowel or sexual function Dizziness or lightheadedness Rash or hives Watch for signs of infection: Excessive warmth or bright redness around your incisions Leakage of bloody or cloudy fluid from you incisions Fever over 100.5 [facility] Work Phone: Hospital Discharge instructionsAmbulatory Orders* Initiate Home Health Time Frame: 1 Day, Location: Determined By Patient Additional Instructions I may not have addressed or treated all of your medical illnesses or the abnormal blood work or imaging studies during this hospitalization. Please ask your primary care provider to obtain [facility] records entirely to follow up on all of the abnormal physical, laboratory, and imaging findings that I have not addressed. Please return back to the emergency room or seek medical attention if your symptoms worsen or return. Discharging you from [facility] does not mean that your medical care ends here and now. You may still need additional monitoring, work up, investigation, and treatment plan to be handled from this point on by out patient providers including your primary care provider and specialists. For any medication question, please contact your retail pharmacist or your primary care provider. Thank you. Home Health to manage care: - DNRCCA without intubation - Routine vital signs - Continue chronic home oxygen - Continue hemodialysis per chronic schedule - Non-invasive ventilator as directed by Heat Treater Apprentice orders - Maintain PICC line for IV antibiotics, routine care/flushes per protocol [facility] Work Phone: InstructionsNot on filedocumented in this encounter [employer] note Author Sofia Barber [facility] April 30, 2023 1:33am Note Date/Time April 29, 2023 4: 14pm [facility] [address] [place] [address] Hospitalist Progress Note Signed Patient: Ruddy Palmer MR#: [id number] : 1985 Acct:[id number] Age/Sex: 37 / M Adm Date: 3 Loc: Room: [address] [place] [address] Type: ADM IN Attending Dr: Sofia Barber MD Copies to: ~ Date of Service: 04/29/2023 Subjective Subjective Narrative: Assessment And Plan 37M with PMH of HTN, 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 Mild Fever noted, there leukocytosis and hypoxia. also given the patient can't give any history UTI can't be ruled out Mild lactic acidosis up to 2.5 was resolved with IVF CXR ED shows left basilar parenchymal densities Blood Cx pending Upper Respiratory Panel PCR (including covid19) is negative there is possible infiltrates in the CXR, therefore he was started on Empiric Abx Blood Cx E.Coli Hold Metoprol O2 Supplement Empiric Abx: Ceftriaxone (switch to 2g daily) and Azithromycin IV Breathing Tx if needed Agree with ID consult ESRD Nephrology was consulted for the management of dialysis and ESRD complication recommendation appreciated INTERVAL HPI:?As Above, Pt resting in bed. Chronic diseases:?Unless mentioned Above, Essential home medications have been continued.? DVT Px:?Addressed Disposition:?To be determined Plan of care Discussed with:?the medical team, the patient mother Exam Physical Exam Vital Signs: Temp Pulse Resp BP Pulse Ox O2 Del Method O2 Flow Rate 36.5 C 90 20 112/61 92 L Nasal Cannula 3 04/29/23 12:59 04/29/23 15:53 04/29/23 15:53 04/29/23 12:59 04/29/23 12:59 04/29/23 15:53 04/29/23 15:53 Narrative: GEN: not Cooperative NECK: Supple, ? JVD LUNGS: diminished breathing sounds. normal respiratory effort. CV: S1S2 nl, ? M/R/G ABD: Soft, ND, + BS,? HSM EXT: No edema in LE bilaterally NEURO: limited Objective Lab Results 04/29/23 05:41 04/29/23 05:41 Microbiology Results Microbiology 04/28/23 14:23 Blood - Right Antecubital Blood Culture - Preliminary Escherichia coli 04/28/23 13:23 Blood - Right Antecubital Blood Culture - Preliminary Escherichia coli 04/28/23 13:23 Blood - Right Antecubital Bacterial ID (NA Multiplex Assay) - Final Meds Allergies and Active Meds Allergies ciprofloxacin [From Cipro] Allergy (Verified 04/28/23 13:10) Hives latex Allergy (Verified 04/28/23 13:10) Hives Active Meds: Active Medications Generic Name Dose Route Start Last Admin Trade Name Freq PRN Reason Stop Dose Admin Acetaminophen 650 mg 04/28/23 17:46 04/29/23 03:46 Acetaminophen 325 Mg Tablet PO 04/27/24 17:45 650 mg Q6H PRN Administration Pain 1-5 or fever Hydrocodone Bitart/Acetaminophen 1 tab 04/28/23 17:46 Hydrocodone/Acetaminophen 5-325 Mg Tablet PO Q4H PRN Pain Scale 4 - 6 Apixaban 2.5 mg 04/28/23 21:00 04/29/23 13:51 Apixaban 2.5 Mg Tablet PO 04/27/24 20:59 2.5 mg BID PENNY Administration Bumetanide 2 mg 04/29/23 09:00 04/29/23 13:55 Bumetanide 2 Mg Tablet PO 04/28/24 08:59 Not Given [id number] PENNY Clonazepam 0.5 mg 04/28/23 22:00 04/29/23 13:50 Clonazepam 0.5 Mg Tablet PO 10/25/23 21:59 0.5 mg TID PENNY Administration Diltiazem HCl 30 mg 04/28/23 22:00 04/29/23 13:51 Diltiazem 30 Mg Tablet PO 04/27/24 21:59 30 mg TID PENNY Administration Sodium Chloride 1,000 mls @ 0 mls/hr 04/28/23 15:24 04/29/23 11:11 0.9% Sodium Chloride 1,000 Ml MISCELLANE 04/27/24 15:23 999 mls/hr .Q0M PRN Administration Dialysis As Directed Azithromycin 500 mg in 250 mls @ 250 mls/hr 04/29/23 13:00 04/29/23 13:51 Zithromax IV 250 mls/hr Q24H PENNY Administration Ceftriaxone Sodium 2 gm in 50 mls @ 100 mls/hr 04/29/23 12:00 04/29/23 13:49 Rocephin IV 100 mls/hr Q24H PENNY Administration Ipratropium [place] 0.5 mg 04/29/23 08:00 04/29/23 15:47 Ipratropium [place] 0.5 Mg/2.5 Ml Vial.Neb INHALATION 04/28/24 07:59 0.5 mg Q8H PENNY Administration Levalbuterol HCl 1.25 mg 04/29/23 08:00 04/29/23 15:47 Levalbuterol Hcl *Nf* 1.25 Mg/3 Ml Vial.Neb INHALATION 04/28/24 07:59 1.25 mg Q8H PENNY Administration Protocol Lidocaine/Prilocaine 1 applic 04/28/23 17:45 Lidocaine-Prilocaine Cr 2.5-2.5% 5 Gm Tube TOPICAL 04/27/24 17:44 ONCE PRN Dialysis Metoprolol Tartrate 25 mg 04/28/23 21:00 04/28/23 21:28 Metoprolol Tartrate 25 Mg Tablet PO 04/27/24 20:59 25 mg BID PENNY Administration Non-Formulary Medication 1 cap 04/28/23 17:45 Dextromethorphan-Quinidine [Nuedexta] PO 04/27/24 17:44 Q12H PENNY Ondansetron HCl 4 mg 04/28/23 17:46 Ondansetron 4 Mg/2 Ml Vial IV-PUSH 04/27/24 17:45 Q6H PRN Nausea And Vomiting Pantoprazole Sodium 40 mg 04/29/23 09:00 04/29/23 13:51 Pantoprazole 40 Mg Tablet. PO 04/28/24 08:59 40 mg DAILY PENNY Administration Paricalcitol 2 mcg 04/29/23 09:05 04/29/23 11:11 Paricalcitol 10 Mcg/2 Ml Vial IV-PUSH 05/04/24 09:04 2 mcg PRN PRN Administration Dialysis Potassium Chloride 40 meq 04/28/23 17:46 Potassium Chloride Er 20 Meq Tab.Er.Prt PO 04/27/24 17:45 DAILY PRN Hypokalemia Sildenafil Citrate 20 mg 04/28/23 22:00 04/29/23 13:51 Sildenafil Citrate 20 Mg Tablet PO 04/27/24 21:59 20 mg TID PENNY Administration Sodium Chloride 0 ml 04/28/23 13:04 04/28/23 16:23 Sodium Chloride 0.9 % 10 Ml Syringe IV-PUSH 04/27/24 13:03 10 ml PRN PRN Administration Flush Sodium Chloride 0 ml 04/28/23 15:24 04/29/23 12:39 Sodium Chloride 0.9 % 10 Ml Syringe IV-PUSH 04/27/24 15:23 10 ml PRN PRN Administration Flush Documented By: Sofia Barber MD 04/29/23 1612 Signed By: <Electronically signed by Sofia Barber MD> 04/30/23 0133 [facility] Work Phone: Progress note Author Melina Garcia [facility] April 30, 2023 11:00am Note Date/Time April 30, 2023 10 :43am [facility] [address] [place] [address] Nephrology Progress Note Signed Patient: Ruddy Palmer MR#: [id number] : 1985 Acct:[id number] Age/Sex: 37 / M Adm Date: 3 Loc: Room: [address] [place] [address] Type: ADM IN Attending Dr: Sofia Barber MD Copies to: ~ Date of Service: 04/30/2023 Subjective Subjective Narrative: This is a 37-year-old male with a medical history of hypertension, cerebral palsy, COPD, pulm hypertension, ESRD, PE, anemia of renal disease and secondary hyperparathyroidism was brought into the emergency room for fever and hypotension. He is a poor historian most of the history was taken from patient's chart and the patient's mother. I called the patient's mother and shetold me patient started running fever since Monday night and had a fever of 102. He started having mild cough yesterday. He went for a his dialysis yesterday and was noticed to have a hypotension so he was sent to the emergency room for evaluation. Mother reported patient has a ESRD for 2 years after he had a septic shock and required dialysis. She reported that he was seen by the milk driver many years ago when he was found to have a solitary kidney. Patient currently goes to the [facility] twice a week Monday and Monday schedule. He currently has IV fistula as a dialysis access. Mother reported that patient still makes urine but he he is incontinent. Nephrology is consulted forESRD management during the hospital stay. Patient had short session of dialysisyesterday and again having as additional session today due to his frail condition. Interval history Patient was seen and examined at bedside. He had a dialysis yesterday toleratedwell. His blood pressures improved. Leukocytosis trending down but has a persistent thrombocytopenia. His blood culture is positive for a ESBL E. coli. Urine cultures are also positive for gram-negative bacilli. He was on Zithromaxand ceftriaxone which was just changed to ertapenem today. Exam Physical Exam Vital Signs: Temp Pulse Resp BP Pulse Ox O2 Del Method O2 Flow Rate 99.7 F H 91 H 24 115/67 95 Nasal Cannula 3 04/30/23 08:00 04/30/23 08:10 04/30/23 08:10 04/30/23 08:00 04/30/23 08:00 04/30/23 08:10 04/30/23 08:10 Narrative: General: Appears comfortable and not in distress Heart: S1-S2, no rub Lung: Bilateral air entry, no wheezing or crackles Abdomen: Soft, positive bowel sounds Extremities: No edema, no cyanosis Head: Atraumatic, normocephalic Ear: No external ear redness or tenderness Eyes: No pallor or redness Neck: No JVD or visible mass Skin: No rashes , warm to touch 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: A somnolent, nonverbal and 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 or follows commands Musculoskeletal: No joint swelling or limitation of movement Objective Intake and Output I&O: Intake & Output 04/27/23 04/28/23 04/29/23 04/30/23 23:59 23:59 23:59 23:59 Intake Total 1650 / 1650 560 / 560 Output Total 488 / 488 500 / 500 Balance 1162 / 1162 60 / 60 Weight 63.7 kg 63.4 kg 62.7 kg Meds and Allergies Meds: Active Medications Acetaminophen (Acetaminophen 325 Mg Tablet) 650 mg PO Q6H PRN PRN Reason: Pain 1-5 or fever Stop: 04/27/24 17:45 Last Admin: 04/30/23 09:26 Dose: 650 mg Hydrocodone Bitart/Acetaminophen (Hydrocodone/Acetaminophen 5-325 Mg Tablet) 1 tab PO Q4H PRN PRN Reason: Pain Scale 4 - 6 Apixaban (Apixaban 2.5 Mg Tablet) 2.5 mg PO BID [facility] Stop: 04/27/24 20:59 Last Admin: 04/30/23 09:27 Dose: 2.5 mg Bumetanide (Bumetanide 2 Mg Tablet) 2 mg PO [id number]@0900 [facility] Stop: 04/28/24 08:59 Last Admin: 04/30/23 09:27 Dose: 2 mg Clonazepam (Clonazepam 0.5 Mg Tablet) 0.5 mg PO TID [facility] Stop: 10/25/23 21:59 Last Admin: 04/30/23 09:27 Dose: 0.5 mg Diltiazem HCl (Diltiazem 30 Mg Tablet) 30 mg PO TID [facility] Stop: 04/27/24 21:59 Last Admin: 04/30/23 09:27 Dose: 30 mg Sodium Chloride (0.9% Sodium Chloride 1,000 Ml) 1,000 mls @ 0 mls/hr MISCELLANE.Q0M PRN PRN Reason: Dialysis Stop: 04/27/24 15:23 Last Admin: 04/29/23 11:11 Dose: 999 mls/hr Azithromycin (Zithromax) 500 mg in 250 mls @ 250 mls/hr IV Q24H [facility] Last Admin: 04/29/23 13:51 Dose: 250 mls/hr Ceftriaxone Sodium (Rocephin) 2 gm in 50 mls @ 100 mls/hr IV Q24H [facility] Last Admin: 04/29/23 13:49 Dose: 100 mls/hr Ipratropium [place] (Ipratropium [place] 0.5 Mg/2.5 Ml Vial.Neb) 0.5 mg INHALATION QID [facility] Stop: 04/28/24 21:59 Last Admin: 04/30/23 08:10 Dose: 0.5 mg Levalbuterol HCl (Levalbuterol Hcl *Nf* 1.25 Mg/3 Ml Vial.Neb) 1.25 mg INHALATION QID [facility]; Protocol Stop: 04/28/24 21:59 Last Admin: 04/30/23 08:09 Dose: 1.25 mg Lidocaine/Prilocaine (Lidocaine-Prilocaine Cr 2.5-2.5% 5 Gm Tube) 1 applic TOPICAL ONCE PRN PRN Reason: Dialysis Stop: 04/27/24 17:44 Metoprolol Tartrate (Metoprolol Tartrate 25 Mg Tablet) 25 mg PO BID [facility] Stop: 04/27/24 20:59 Last Admin: 04/28/23 21:28 Dose: 25 mg Non-Formulary Medication (Dextromethorphan-Quinidine [Nuedexta]) 1 cap PO Q12H PENNY Stop: 04/27/24 17:44 Ondansetron HCl (Ondansetron 4 Mg/2 Ml Vial) 4 mg IV-PUSH Q6H PRN PRN Reason: Nausea And Vomiting Stop: 04/27/24 17:45 Pantoprazole Sodium (Pantoprazole 40 Mg Tablet.Dr) 40 mg PO DAILY [facility] Stop: 04/28/24 08:59 Last Admin: 04/30/23 09:27 Dose: 40 mg Paricalcitol (Paricalcitol 10 Mcg/2 Ml Vial) 2 mcg IV-PUSH PRN PRN PRN Reason: Dialysis Stop: 05/04/24 09:04 Last Admin: 04/29/23 11:11 Dose: 2 mcg Potassium Chloride (Potassium Chloride Er 20 Meq Tab.Er.Prt) 40 meq PO DAILY PRN PRN Reason: Hypokalemia Stop: 04/27/24 17:45 Sildenafil Citrate (Sildenafil Citrate 20 Mg Tablet) 20 mg PO TID [facility] Stop: 04/27/24 21:59 Last Admin: 04/30/23 09:27 Dose: 20 mg Sodium Chloride (Sodium Chloride 0.9 % 10 Ml Syringe) 0 ml IV-PUSH PRN PRN PRN Reason: Flush Stop: 04/27/24 13:03 Last Admin: 04/28/23 16:23 Dose: 10 ml Sodium Chloride (Sodium Chloride 0.9 % 10 Ml Syringe) 0 ml IV-PUSH PRN PRN PRN Reason: Flush Stop: 04/27/24 15:23 Last Admin: 04/29/23 12:39 Dose: 10 ml Allergies ciprofloxacin [From Cipro] Allergy (Verified 04/28/23 13:10) Hives latex Allergy (Verified 04/28/23 13:10) Hives Results Labs 04/30/23 05:50 04/30/23 05:50 Labs: 04/29/23 04/30/23 17:00 05:50 BUN 43 H Creatinine 4.28 H D Urine Color [place] A Urine Appearance Turbid A Urine pH 6.0 Ur Specific [place] 1.015 Urine Protein 300 H Urine Glucose (UA) Normal Urine Ketones Negative Urine Occult Blood 3+ H Urine Nitrite Positive H Ur Leukocyte Esterase 4+ H Urine RBC 20-49 H Urine WBC Innumerable H Urine Bacteria 4+ H Radiology Impressions Impressions - last 24 hours: Any impression(s) listed above is documentation that was entered by the reading physician into a diagnostic report(s) for Ruddy Palmer. I have reviewed the report(s) and am incorporating any findings in the treatment plan of this patient where applicable. A&P - Nephrology Assessment/Plan (1) Sepsis associated hypotension: Plan: He was presented with fever leukocytosis and hypertension. His blood culture positive for E. coli bacteremia. Currently on IV antibiotics. (2) ESRD (end stage renal disease): Plan: He has a ESRD after [facility]EN[facility] in setting of sepsis. He has been on dialysis for 2 years and currently goes to the [facility] twice a week on Monday schedule (3) E coli bacteremia: Plan: He has a E. coli bacteremia due to the unclear etiology. Differential diagnosesare endocarditis versus UTI. His urine culture is positive for gram-negative bacilli. Graft site looks good with no sign of infection. (4) Anemia of renal disease: Plan: Hemoglobin is below the goal. He receives Mircera with dialysis. (5) Secondary hyperparathyroidism: Plan: He has a secondary hyperparathyroidism and currently receives IV Hectorol with dialysis. Plan * No need for dialysis today. Next dialysis will be tomorrow. * Blood cultures positive for ESBL. Agreed to change antibiotic to ertapenem * Consult ID due to the bacteremia. * Patient still makes urine as per the mother. Continue Bumex on nondialysis day. * Will give IV Zemplar with dialysis. * Check renal function daily. * Monitor platelets closely and stop Eliquis if patient's platelet continue to drop Documented By: Melina Garcia MD 04/30/23 1036 Signed By: <Electronically signed by Melina Garcia MD> 04/30/23 1100 [facility] Work Phone: Progress note Author Sofia Barber [facility] April 30, 2023 5:24pm Note Date/Time April 30, 2023 11 :59am [facility] [address] [place] [address] Hospitalist Progress Note Signed Patient: Ruddy Palmer MR#: [id number] : 1985 Acct:[id number] Age/Sex: 37 / M Adm Date: 3 Loc: Room: [address] [place] [address] Type: ADM IN Attending Dr: Sofia Barber MD Copies to: ~ Date of Service: 04/30/2023 Subjective Subjective Narrative: Assessment And Plan 37M with PMH of HTN, 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 Mild Fever noted, there was leukocytosis Mild lactic acidosis up to 2.5 was resolved with IVF CXR ED shows left basilar parenchymal densities Blood Cx pending Upper Respiratory Panel PCR (including covid19) is negative there is possible infiltrates in the CXR, therefore he was started on Empiric Abx Blood Cx E.Coli resume Metoprol O2 Supplement Abx: switch to Invanz Breathing Tx if needed ID consult Bacterial pneumonia - ruled out give the positive urine and E.Coli Bacteremia his illness likely caused by UTI rather pneumonia therefore Azithromycin IV was discontented ESRD Nephrology was consulted for the management of dialysis and ESRD complication recommendation appreciated Advance care planing i offered palliative consult to the mother given all his comorbidity who agree INTERVAL HPI:?As Above, Pt resting in bed. can't obtain any information form him Chronic diseases:?Unless mentioned Above, Essential home medications have been continued.? DVT Px:?Addressed Disposition:?To be determined Plan of care Discussed with:?the medical team, the patient mother Exam Physical Exam Vital Signs: Temp Pulse Resp BP Pulse Ox O2 Del Method O2 Flow Rate 37.6 C H 91 H 24 115/67 95 Nasal Cannula 3 04/30/23 08:00 04/30/23 08:10 04/30/23 08:10 04/30/23 08:00 04/30/23 08:00 04/30/23 08:10 04/30/23 08:10 Narrative: GEN: not Cooperative NECK: Supple, ? JVD LUNGS: diminished breathing sounds CV: S1S2 nl, ? M/R/G ABD: Soft, ND, + BS, ? HSM EXT: No edema in LE bilaterally NEURO: limited Objective Lab Results 04/30/23 05:50 04/30/23 05:50 Microbiology Results Microbiology 04/29/23 17:00 Straight Catheter Urine Culture - Preliminary Gram Negative Bacilli 04/28/23 13:23 Blood - Right Antecubital Blood Culture - Preliminary Escherichia coli (ESBL) 04/28/23 13:23 Blood - Right Antecubital Bacterial ID (NA Multiplex Assay) - Final 04/28/23 14:23 Blood - Right Antecubital Blood Culture - Preliminary Escherichia coli (ESBL) Meds Allergies and Active Meds Allergies ciprofloxacin [From Cipro] Allergy (Verified 04/28/23 13:10) Hives latex Allergy (Verified 04/28/23 13:10) Hives Active Meds: Active Medications Generic Name Dose Route Start Last Admin Trade Name Freq PRN Reason Stop Dose Admin Acetaminophen 650 mg 04/28/23 17:46 04/30/23 09:26 Acetaminophen 325 Mg Tablet PO 04/27/24 17:45 650 mg Q6H PRN Administration Pain 1-5 or fever Hydrocodone Bitart/Acetaminophen 1 tab 04/28/23 17:46 Hydrocodone/Acetaminophen 5-325 Mg Tablet PO Q4H PRN Pain Scale 4 - 6 Apixaban 2.5 mg 04/28/23 21:00 04/30/23 09:27 Apixaban 2.5 Mg Tablet PO 04/27/24 20:59 2.5 mg BID PENNY Administration Bumetanide 2 mg 04/29/23 09:00 04/30/23 09:27 Bumetanide 2 Mg Tablet PO 04/28/24 08:59 2 mg [id number]@0900 PENNY Administration Clonazepam 0.5 mg 04/28/23 22:00 04/30/23 09:27 Clonazepam 0.5 Mg Tablet PO 10/25/23 21:59 0.5 mg TID PENNY Administration Diltiazem HCl 30 mg 04/28/23 22:00 04/30/23 09:27 Diltiazem 30 Mg Tablet PO 04/27/24 21:59 30 mg TID PENNY Administration Sodium Chloride 1,000 mls @ 0 mls/hr 04/28/23 15:24 04/29/23 11:11 0.9% Sodium Chloride 1,000 Ml MISCELLANE 04/27/24 15:23 999 mls/hr .Q0M PRN Administration Dialysis As Directed Ertapenem 0.5 gm/ Sodium 100 mls @ 200 mls/hr 04/30/23 11:30 Chloride IV 04/29/24 11:29 Q24H PENNY Ipratropium [place] 0.5 mg 04/29/23 22:00 04/30/23 08:10 Ipratropium [place] 0.5 Mg/2.5 Ml Vial.Neb INHALATION 04/28/24 21:59 0.5 mg QID PENNY Administration Levalbuterol HCl 1.25 mg 04/29/23 22:00 04/30/23 08:09 Levalbuterol Hcl *Nf* 1.25 Mg/3 Ml Vial.Neb INHALATION 04/28/24 21:59 1.25 mg QID PENNY Administration Protocol Lidocaine/Prilocaine 1 applic 04/28/23 17:45 Lidocaine-Prilocaine Cr 2.5-2.5% 5 Gm Tube TOPICAL 04/27/24 17:44 ONCE PRN Dialysis Metoprolol Tartrate 25 mg 04/28/23 21:00 04/28/23 21:28 Metoprolol Tartrate 25 Mg Tablet PO 04/27/24 20:59 25 mg BID PENNY Administration Non-Formulary Medication 1 cap 04/28/23 17:45 Dextromethorphan-Quinidine [Nuedexta] PO 04/27/24 17:44 Q12H PENNY Ondansetron HCl 4 mg 04/28/23 17:46 Ondansetron 4 Mg/2 Ml Vial IV-PUSH 04/27/24 17:45 Q6H PRN Nausea And Vomiting Pantoprazole Sodium 40 mg 04/29/23 09:00 04/30/23 09:27 Pantoprazole 40 Mg Tablet.Dr PO 04/28/24 08:59 40 mg DAILY PENNY Administration Paricalcitol 2 mcg 04/29/23 09:05 04/29/23 11:11 Paricalcitol 10 Mcg/2 Ml Vial IV-PUSH 05/04/24 09:04 2 mcg PRN PRN Administration Dialysis Potassium Chloride 40 meq 04/28/23 17:46 Potassium Chloride Er 20 Meq Tab.Er.Prt PO 04/27/24 17:45 DAILY PRN Hypokalemia Sildenafil Citrate 20 mg 04/28/23 22:00 04/30/23 09:27 Sildenafil Citrate 20 Mg Tablet PO 04/27/24 21:59 20 mg TID PENNY Administration Sodium Chloride 0 ml 04/28/23 13:04 04/28/23 16:23 Sodium Chloride 0.9 % 10 Ml Syringe IV-PUSH 04/27/24 13:03 10 ml PRN PRN Administration Flush Sodium Chloride 0 ml 04/28/23 15:24 04/29/23 12:39 Sodium Chloride 0.9 % 10 Ml Syringe IV-PUSH 04/27/24 15:23 10 ml PRN PRN Administration Flush Documented By: Sofia Barber MD 04/30/23 1151 Signed By: <Electronically signed by Sofia Barber MD> 04/30/23 0824 [facility] Work Phone: Progress note Author Bradford Henriquez [facility] May 01, 2023 8:54am Note Date/Time May 01, 2023 8: 46am [facility] [address] [place] [address] Hospitalist Progress Note Signed Patient: Ruddy Palmer MR#: [id number] : 1985 Acct:[id number] Age/Sex: 37 / M Adm Date: 3 Loc: 3T Room: [address] [place] [address] Type: ADM IN Attending Dr: Bradford Henriquez MD Copies to: ~ Date of Service: 05/01/2023 Subjective Subjective Narrative: Assessment And Plan 37M with PMH of HTN, 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, Cerebral Palsy, Blindness, Hearing impairment, COPD, CRF (on Home O2), Pulmonary HTN, ESRD (on HD), PE (on Eliquis) who presented with Hypotension from dialysis center and admitted for the evaluation and treatment of suspected Bacterial Pneumonia vs UTI UTI ECOli ESBL E.Coli Bacteremia Seen and examined Clinically better No fever CBc is improving BLood cultures Blood Culture Preliminary 05/01/23 Gram Stain Gram Negative Bacilli Organism 1 Escherichia coli (ESBL) Urine culture Urine Culture Final 05/01/23 Organism 1 Escherichia coli (ESBL) [place] Count >100,000 CFU/ml ID is following Repeat blood cultures C/w Invanz IV Bacterial pneumonia - ruled out No fever CBC is trending down Blood cultures grew ECOLI Urine culture grew ECOLI On Invanz daily ESRD Nephrology was consulted for the management of dialysis and ESRD complication recommendation appreciated Advance care planing i offered palliative consult to the mother given all his comorbidity who agree Subjective: He is not verbal Not on acute distress No fever Chronic diseases:?Unless mentioned Above, Essential home medications have been continued.? DVT Px:?Addressed Disposition:?To be determined Plan of care Discussed with:?the medical team, the patient mother Exam Physical Exam Vital Signs: Temp Pulse Resp BP Pulse Ox O2 Del Method O2 Flow Rate 98.2 F 117 H 16 103/57 L 94 L Nasal Cannula 4 05/01/23 08:20 05/01/23 08:20 05/01/23 08:20 05/01/23 08:20 05/01/23 08:20 05/01/23 08:20 05/01/23 08:20 Narrative: General:alert and awake non verbal not on acute distress HEENT: PERRLA, oral mucosa moist Neck: Supple no JVD no carotid bruit CVS S1-S2 regular rate and rhythm no murmur no gallop Chest clear to auscultation percussion no wheezing no crackles Abdomen: Soft bowel sounds normoactive no rebound no guarding Extremities no edema no clubbing Neurologic non verbal Skin exam: Normal no skin rash or lesions Musculoskeletal exam normal no joint effusion no movement limited no redness or swelling Objective Lab Results 05/01/23 06:42 05/01/23 06:42 Microbiology Results Microbiology 04/28/23 14:23 Blood - Right Antecubital Blood Culture - Preliminary Escherichia coli (ESBL) 04/28/23 13:23 Blood - Right Antecubital Blood Culture - Preliminary Escherichia coli (ESBL) 04/28/23 13:23 Blood - Right Antecubital Bacterial ID (NA Multiplex Assay) - Final 04/30/23 05:50 Blood - Right Antecubital Blood Culture - Preliminary Escherichia coli (ESBL) 04/30/23 05:50 Blood - Right Antecubital Bacterial ID (NA Multiplex Assay) - Final 04/29/23 17:00 Straight Catheter Urine Culture - Preliminary Escherichia coli Meds Allergies and Active Meds Allergies ciprofloxacin [From Cipro] Allergy (Verified 04/28/23 13:10) Hives latex Allergy (Verified 04/28/23 13:10) Hives Active Meds: Active Medications Generic Name Dose Route Start Last Admin Trade Name Freq PRN Reason Stop Dose Admin Acetaminophen 650 mg 04/28/23 17:46 04/30/23 09:26 Acetaminophen 325 Mg Tablet PO 04/27/24 17:45 650 mg Q6H PRN Administration Pain 1-5 or fever Hydrocodone Bitart/Acetaminophen 1 tab 04/28/23 17:46 Hydrocodone/Acetaminophen 5-325 Mg Tablet PO Q4H PRN Pain Scale 4 - 6 Apixaban 2.5 mg 04/28/23 21:00 05/01/23 08:34 Apixaban 2.5 Mg Tablet PO 04/27/24 20:59 2.5 mg BID PENNY Administration Bumetanide 2 mg 04/29/23 09:00 04/30/23 09:27 Bumetanide 2 Mg Tablet PO 04/28/24 08:59 2 mg [id number]@0900 PENNY Administration Clonazepam 0.5 mg 04/28/23 22:00 05/01/23 08:34 Clonazepam 0.5 Mg Tablet PO 10/25/23 21:59 0.5 mg TID PENNY Administration Diltiazem HCl 30 mg 04/28/23 22:00 04/30/23 21:54 Diltiazem 30 Mg Tablet PO 04/27/24 21:59 30 mg TID PENNY Administration Ferric Sodium Gluconate Complex 62.5 mg 05/01/23 09:00 Sodium Ferric Gluconat/Sucrose 62.5 Mg/5 Ml Vial IV-PUSH 04/30/24 08:59 WEEKLY PENNY Sodium Chloride 1,000 mls @ 0 mls/hr 04/28/23 15:24 04/29/23 11:11 0.9% Sodium Chloride 1,000 Ml MISCELLANE 04/27/24 15:23 999 mls/hr .Q0M PRN Administration Dialysis As Directed Ertapenem 0.5 gm/ Sodium 100 mls @ 200 mls/hr 04/30/23 11:30 04/30/23 11:57 Chloride IV 04/29/24 11:29 200 mls/hr Q24H PENNY Administration Sodium Chloride 1,000 mls @ 0 mls/hr 05/01/23 08:33 0.9% Sodium Chloride 1,000 Ml MISCELLANE 04/30/24 08:32 .Q0M PRN Dialysis As Directed Ipratropium [place] 0.5 mg 04/29/23 22:00 05/01/23 07:21 Ipratropium [place] 0.5 Mg/2.5 Ml Vial.Neb INHALATION 04/28/24 21:59 0.5 mg QID PENNY Administration Levalbuterol HCl 1.25 mg 04/29/23 22:00 05/01/23 07:21 Levalbuterol Hcl *Nf* 1.25 Mg/3 Ml Vial.Neb INHALATION 04/28/24 21:59 1.25 mg QID PENNY Administration Protocol Lidocaine/Prilocaine 1 applic 04/28/23 17:45 05/01/23 08:34 Lidocaine-Prilocaine Cr 2.5-2.5% 5 Gm Tube TOPICAL 04/27/24 17:44 1 applic ONCE PRN Administration Dialysis Metoprolol Tartrate 25 mg 04/28/23 21:00 04/28/23 21:28 Metoprolol Tartrate 25 Mg Tablet PO 04/27/24 20:59 25 mg BID PENNY Administration Non-Formulary Medication 1 cap 04/28/23 17:45 Dextromethorphan-Quinidine [Nuedexta] PO 04/27/24 17:44 Q12H PENNY Ondansetron HCl 4 mg 04/28/23 17:46 Ondansetron 4 Mg/2 Ml Vial IV-PUSH 04/27/24 17:45 Q6H PRN Nausea And Vomiting Pantoprazole Sodium 40 mg 04/29/23 09:00 05/01/23 08:34 Pantoprazole 40 Mg Tablet.Dr PO 04/28/24 08:59 40 mg DAILY PENNY Administration Paricalcitol 2 mcg 04/29/23 09:05 04/29/23 11:11 Paricalcitol 10 Mcg/2 Ml Vial IV-PUSH 05/04/24 09:04 2 mcg PRN PRN Administration Dialysis Potassium Chloride 40 meq 04/28/23 17:46 Potassium Chloride Er 20 Meq Tab.Er.Prt PO 04/27/24 17:45 DAILY PRN Hypokalemia Sildenafil Citrate 20 mg 04/28/23 22:00 04/30/23 21:54 Sildenafil Citrate 20 Mg Tablet PO 04/27/24 21:59 20 mg TID PENNY Administration Sodium Chloride 0 ml 04/28/23 13:04 04/28/23 16:23 Sodium Chloride 0.9 % 10 Ml Syringe IV-PUSH 04/27/24 13:03 10 ml PRN PRN Administration Flush Sodium Chloride 0 ml 04/28/23 15:24 04/29/23 12:39 Sodium Chloride 0.9 % 10 Ml Syringe IV-PUSH 04/27/24 15:23 10 ml PRN PRN Administration Flush Sodium Chloride 0 ml 05/01/23 08:33 Sodium Chloride 0.9 % 10 Ml Syringe IV-PUSH 04/30/24 08:32 PRN PRN Flush Documented By: Bradford Henriquez MD 05/01/23 0843 Signed By: <Electronically signed by Bradford Henriquez MD> 05/01/23 0854 [facility] Work Phone: Progress note Author Jessica Macdonald [facility] May 01, 2023 12:26pm Note Date/Time May 01, 2023 12 :16pm [facility] [address] [place] [address] Nephrology Progress Note Signed Patient: Ruddy Palmer MR#: [id number] : 1985 Acct:[id number] Age/Sex: 37 / M Adm Date: 3 Loc: Room: 5P2778-1 Type: ADM IN Attending Dr: Bradford Henriquez MD Copies to: ~ Date of Service: 05/01/2023 Subjective Subjective Narrative: This is a 37-year-old male with a medical history of hypertension, cerebral palsy, COPD, pulm hypertension , ESRD, PE on Apixaban, anemia of renal disease and secondary hyperparathyroidism was brought into the emergency room for fever and hypotension. He does not communicate and most of the history was taken frompatient's chart and the patient's mother. His mother stated that patient started running fever 2 days prior to admission and had a fever of 102. He started having mild cough. He went for a his dialysis and was noticed to have a hypotension so he was sent to the emergency room for evaluation. Mother reported patient has a ESRD for 2 years after he had a septic shock and required dialysis. She reported that he was seen by the milk driver many years ago whenhe was found to have a solitary kidney. Patient currently goes to the [facility] twice a week Monday and Monday schedule. He currently has AV fistula asa dialysis access. Mother reported that patient still makes urine but he he is incontinent. Nephrology is consulted for ESRD management during the hospital stay. Interval history Patient is being seen and examined on hemodialysis. He is awake, no fever or chills. Blood pressure is borderline 98/49. Patient does not communicate. Urine analysis and blood culture showed evidence of ESBL E. coli. He is on ertapenem. He was evaluated by ID and further work-up including CT scan of the abdomen is pending. Chest x-ray on admission showed minor interstitial changes on the left side suggestive of subtle infiltrate/atelectasis. Exam Physical Exam Vital Signs: Temp Pulse Resp BP Pulse Ox O2 Del Method O2 Flow Rate 36.8 C 85 18 98/49 L 92 L Nasal Cannula 4 05/01/23 08:20 05/01/23 12:00 05/01/23 09:40 05/01/23 12:00 05/01/23 09:40 05/01/23 09:40 05/01/23 09:40 Narrative: General: Awake, nonverbal on dialysis HEENT: Atraumatic, normal cephalic. He has mild pallor with no jaundice or cyanosis. Neck: Supple no JVD no carotid bruit CVS S1-S2: regular rate and rhythm no murmur no gallop Chest clear to auscultation percussion no wheezing no crackles Abdomen: Soft bowel sounds normoactive no rebound no guarding Extremities no edema no clubbing Neurologic non verbal Skin exam: Normal no skin rash or lesions Musculoskeletal exam normal no joint effusion no movement limited no redness or swelling Vascular access: Left arm AV fistula with good thrill. No evidence of infection. Objective Intake and Output I&O: Intake & Output 04/28/23 04/29/23 04/30/23 05/01/23 23:59 23:59 23:59 23:59 Intake Total 1650 / 1650 1060 / 1060 340 / 340 600 / 600 Output Total 488 / 488 500 / 500 Balance 1162 / 1162 560 / 560 340 / 340 600 / 600 Weight 63.7 kg 63.4 kg 62.7 kg 61.1 kg Meds and Allergies Meds: Active Medications Acetaminophen (Acetaminophen 325 Mg Tablet) 650 mg PO Q6H PRN PRN Reason: Pain 1-5 or fever Stop: 04/27/24 17:45 Last Admin: 04/30/23 09:26 Dose: 650 mg Hydrocodone Bitart/Acetaminophen (Hydrocodone/Acetaminophen 5-325 Mg Tablet) 1 tab PO Q4H PRN PRN Reason: Pain Scale 4 - 6 Apixaban (Apixaban 2.5 Mg Tablet) 2.5 mg PO BID PENNY Stop: 04/27/24 20:59 Last Admin: 05/01/23 08:34 Dose: 2.5 mg Bumetanide (Bumetanide 2 Mg Tablet) 2 mg PO SuTuWeThSa@0900 [facility] Stop: 04/28/24 08:59 Last Admin: 04/30/23 09:27 Dose: 2 mg Clonazepam (Clonazepam 0.5 Mg Tablet) 0.5 mg PO TID [facility] Stop: 10/25/23 21:59 Last Admin: 05/01/23 08:34 Dose: 0.5 mg Diltiazem HCl (Diltiazem 30 Mg Tablet) 30 mg PO TID [facility] Stop: 04/27/24 21:59 Last Admin: 05/01/23 08:20 Dose: Not Given Ferric Sodium Gluconate Complex (Sodium Ferric Gluconat/Sucrose 62.5 Mg/5 Ml Vial) 62.5 mg IV-PUSH WEEKLY [facility] Stop: 04/30/24 08:59 Last Admin: 05/01/23 12:07 Dose: 62.5 mg Sodium Chloride (0.9% Sodium Chloride 1,000 Ml) 1,000 mls @ 0 mls/hr MISCELLANE.Q0M PRN PRN Reason: Dialysis Stop: 04/27/24 15:23 Last Infusion: 05/01/23 12:09 Dose: Infused Ertapenem 0.5 gm/ Sodium (Chloride) 100 mls @ 200 mls/hr IV Q24H [facility] Stop: 04/29/24 11:29 Last Infusion: 05/01/23 07:00 Dose: Infused Sodium Chloride (0.9% Sodium Chloride 1,000 Ml) 1,000 mls @ 0 mls/hr MISCELLANE.Q0M PRN PRN Reason: Dialysis Stop: 04/30/24 08:32 Sodium Chloride (0.9% Sodium Chloride 1,000 Ml) 1,000 mls @ 0 mls/hr MISCELLANE.Q0M PRN PRN Reason: Dialysis Stop: 04/30/24 10:46 Ipratropium [place] (Ipratropium [place] 0.5 Mg/2.5 Ml Vial.Neb) 0.5 mg INHALATION QID [facility] Stop: 04/28/24 21:59 Last Admin: 05/01/23 07:21 Dose: 0.5 mg Levalbuterol HCl (Levalbuterol Hcl *Nf* 1.25 Mg/3 Ml Vial.Neb) 1.25 mg INHALATION QID [facility]; Protocol Stop: 04/28/24 21:59 Last Admin: 05/01/23 07:21 Dose: 1.25 mg Lidocaine/Prilocaine (Lidocaine-Prilocaine Cr 2.5-2.5% 5 Gm Tube) 1 applic TOPICAL ONCE PRN PRN Reason: Dialysis Stop: 04/27/24 17:44 Last Admin: 05/01/23 08:34 Dose: 1 applic Metoprolol Tartrate (Metoprolol Tartrate 25 Mg Tablet) 25 mg PO BID PENNY Stop: 04/27/24 20:59 Last Admin: 04/28/23 21:28 Dose: 25 mg Non-Formulary Medication (Dextromethorphan-Quinidine [Nuedexta]) 1 cap PO Q12H PENNY Stop: 04/27/24 17:44 Ondansetron HCl (Ondansetron 4 Mg/2 Ml Vial) 4 mg IV-PUSH Q6H PRN PRN Reason: Nausea And Vomiting Stop: 04/27/24 17:45 Pantoprazole Sodium (Pantoprazole 40 Mg Tablet.) 40 mg PO DAILY PENNY Stop: 04/28/24 08:59 Last Admin: 05/01/23 08:34 Dose: 40 mg Paricalcitol (Paricalcitol 10 Mcg/2 Ml Vial) 2 mcg IV-PUSH MoFr@11 PENNY Stop: 04/30/24 10:59 Last Admin: 05/01/23 12:06 Dose: 2 mcg Potassium Chloride (Potassium Chloride Er 20 Meq Tab.Er.Prt) 40 meq PO DAILY PRN PRN Reason: Hypokalemia Stop: 04/27/24 17:45 Sildenafil Citrate (Sildenafil Citrate 20 Mg Tablet) 20 mg PO TID PENNY Stop: 04/27/24 21:59 Last Admin: 05/01/23 08:20 Dose: Not Given Sodium Chloride (Sodium Chloride 0.9 % 10 Ml Syringe) 0 ml IV-PUSH PRN PRN PRN Reason: Flush Stop: 04/27/24 13:03 Last Admin: 05/01/23 12:08 Dose: 10 ml Sodium Chloride (Sodium Chloride 0.9 % 10 Ml Syringe) 0 ml IV-PUSH PRN PRN PRN Reason: Flush Stop: 04/27/24 15:23 Last Admin: 04/29/23 12:39 Dose: 10 ml Sodium Chloride (Sodium Chloride 0.9 % 10 Ml Syringe) 0 ml IV-PUSH PRN PRN PRN Reason: Flush Stop: 04/30/24 08:32 Sodium Chloride (Sodium Chloride 0.9 % 10 Ml Syringe) 0 ml IV-PUSH PRN PRN PRN Reason: Flush Stop: 04/30/24 10:46 Allergies ciprofloxacin [From Cipro] Allergy (Verified 04/28/23 13:10) Hives latex Allergy (Verified 04/28/23 13:10) Hives Results Labs 05/01/23 06:42 05/01/23 06:42 Labs: 05/01/23 06:42 BUN 58 H Creatinine 6.03 H D Radiology Impressions Impressions - last 24 hours: Any impression(s) listed above is documentation that was entered by the reading physician into a diagnostic report(s) for Ruddy Palmer. I have reviewed the report(s) and am incorporating any findings in the treatment plan of this patient where applicable. A&P - Nephrology Assessment/Plan (1) ESRD (end stage renal disease): Plan: He has a ESRD after MCKENNA in setting of sepsis. He has been on dialysis for 2 years and currently goes to the [facility] twice a week on Monday schedule (2) Sepsis associated hypotension: Plan: He was presented with fever leukocytosis and hypertension. His blood culture positive for E. coli bacteremia on ertapenem for ESBL. (3) Anemia of renal disease: Plan: Hemoglobin is below the goal. He receives Mircera with dialysis. (4) Secondary hyperparathyroidism: Plan: He has a secondary hyperparathyroidism and currently receives IV Hectorol with dialysis. Plan * Hemodialysis today for 3 and half hour, will change potassium bath to CK. 1 L ultrafiltration as tolerated. No heparin will be used as platelets still low 63,000 in the setting of infection. Patient already on apixaban. * Patient is currently on Ativan 0.5 g daily for ESBL bacteremia. ID was consulted and CT scan of the abdomen and sputum cultures are pending. Patient is not able to give clear history. * Patient still makes urine as per the mother. Continue Bumex on nondialysis day. * Continue darbepoetin tatianna 40 mcg weekly, ferric sodium gluconate 62.5 mg IV weekly and paricalcitol 2 mcg with each hemodialysis * Monitor platelets closely and stop Eliquis if patient's platelet continue to drop Documented By: Jessica Macdonald MD 05/01/23 1215 Signed By: <Electronically signed by MD Jessica Macdonald> 05/01/23 1226 [facility] Work Phone: Progress note Author Kostas Wade [facility] May 02, 2023 11:36am Note Date/Time May 02, 2023 11 :36am [facility] [address] [place] [address] Infect. Disease Progress Note Signed Patient: Ruddy Palmer MR#: [id number] : 1985 Acct:[id number] Age/Sex: 37 / M Adm Date: 3 Loc: Room: [address] [place] [address] Type: ADM IN Attending Dr: Bradford Henriquez MD Copies to: ~ Date of Service: 05/02/2023 Subjective Interval history: Clinically not much changed compared to yesterday. At baseline mentation. Overnight was afebrile. Exam Physical Exam Vital Signs: Vital Signs Temp Pulse Pulse Resp BP BP Pulse Ox 05/02/23 08:55 05/02/23 09:00 98.2 F 122 H 18 117/63 93 L 05/02/23 08:36 112 H 20 05/02/23 08:00 05/02/23 00:00 05/02/23 03:48 97.9 F 05/02/23 00:00 05/01/23 23:15 112 H 105/59 L 94 L 05/01/23 20:00 05/01/23 20:00 101 H 18 100/55 L 100 05/01/23 20:09 108 H 20 05/01/23 20:01 109 H 20 05/01/23 16:40 114 H 20 05/01/23 16:33 113 H 22 05/01/23 16:00 05/01/23 15:50 98.4 F 121 H 20 114/70 94 L 05/01/23 13:22 110 H 115/64 05/01/23 13:45 98 F 105 H 18 119/69 96 05/01/23 12:30 90 82/39 L 05/01/23 14:10 97.7 F 117 H 20 102/67 96 05/01/23 12:00 85 98/49 L O2 Del Method O2 Flow Rate 05/02/23 08:55 Nasal Cannula 4 05/02/23 09:00 Nasal Cannula 4 05/02/23 08:36 05/02/23 08:00 Nasal Cannula 4 05/02/23 00:00 Nasal Cannula 4 05/02/23 03:48 05/02/23 00:00 Nasal Cannula 4 05/01/23 23:15 Nasal Cannula 4 05/01/23 20:00 Nasal Cannula 4 05/01/23 20:00 Nasal Cannula 4 05/01/23 20:09 05/01/23 20:01 05/01/23 16:40 05/01/23 16:33 05/01/23 16:00 Nasal Cannula 4 05/01/23 15:50 Nasal Cannula 4 05/01/23 13:22 05/01/23 13:45 Nasal Cannula 4 05/01/23 12:30 05/01/23 14:10 Nasal Cannula 4 05/01/23 12:00 Intake and Output 05/01/23 05/02/23 05/02/23 23:59 07:59 15:59 Intake Total 200 / 1350 200 / 200 Balance 200 / -150 200 / 200 Intake: IV 100 / 1000 Ertapenem 0.5 gm In Sodium 100 / 200 Chloride 0.9% 100 ml 100 ml @ 200 mls/hr IV Q24H [facility] Rx#: [id number] Oral 100 / 350 200 / 200 Other: # Unmeasured Voids 3 3 Weight 61 kg Date of Last Bowel Movement 04/29/23 04/29/23 05/02/23 Patient Weight 05/02/23 23:59 Weight 61 kg Const General: combative and ill appearing HEENT Head: normal to inspection Neck Neck: normal visual inspection Chest Chest palpation & inspection: normal inspection of the chest Resp Effort & Inspection: normal respiratory effort and cough Cardio Palpation: normal PMI GI Inspection: normal to inspection Skin General: no rashes or lesions noted Objective Labs CBC/BMP: CBC, BMP 05/02/23 05/02/23 05:40 05:40 Corrected WBC 11.0 H Uncorrected WBC Count 11.0 H RBC 2.73 L Hgb 8.2 L Hct 25.4 L Plt Count 66 L Sodium 133 L Potassium 3.8 Chloride 95 L Carbon Dioxide 30.1 Anion Gap 11.7 BUN 34 H Creatinine 4.05 H D Calcium 8.2 L Labs: 05/02/23 05:40 BUN 34 H Creatinine 4.05 H D Microbiology Microbiology: Microbiology - Results from entire visit 05/01/23 09:25 Blood - Right Hand Blood Culture - Preliminary No Growth 1 Day 05/01/23 09:23 Blood - Right Antecubital Blood Culture - Preliminary No Growth 1 Day 04/28/23 14:23 Blood - Right Antecubital Blood Culture - Final Escherichia coli (ESBL) 04/28/23 13:23 Blood - Right Antecubital Blood Culture - Final Escherichia coli (ESBL) 04/28/23 13:23 Blood - Right Antecubital Bacterial ID (NA Multiplex Assay) - Final 04/30/23 05:50 Blood - Right Antecubital Blood Culture - Preliminary Escherichia coli 04/30/23 05:50 Blood - Right Antecubital Bacterial ID (NA Multiplex Assay) - Final 05/01/23 16:32 Stool Stool Occult Blood (TRINA) - Final 04/29/23 17:00 Straight Catheter Urine Culture - Final Escherichia coli (ESBL) Additional Results Results Comment: ABC CT: IMPRESSION: ? 1. ? No acute findings. 2.? Cholelithiasis. 3.? Thickening of the esophagus to the GE junction. Finding May relate to esophagitis. Correlation endoscopy is recommended as underlying malignancy cannot BE excluded. 4.? Prostatomegaly with urinary bladder wall thickening suggestive of bladder outlet obstruction. Allergies and Medications Allergies and Active Meds Allergies ciprofloxacin [From Cipro] Allergy (Verified 04/28/23 13:10) Hives latex Allergy (Verified 04/28/23 13:10) Hives Active Medications Acetaminophen (Acetaminophen 325 Mg Tablet) 650 mg PO Q6H PRN PRN Reason: Pain 1-5 or fever Stop: 04/27/24 17:45 Last Admin: 04/30/23 09:26 Dose: 650 mg Hydrocodone Bitart/Acetaminophen (Hydrocodone/Acetaminophen 5-325 Mg Tablet) 1 tab PO Q4H PRN PRN Reason: Pain Scale 4 - 6 Apixaban (Apixaban 2.5 Mg Tablet) 2.5 mg PO BID PENNY Stop: 04/27/24 20:59 Last Admin: 05/01/23 21:46 Dose: 2.5 mg Bumetanide (Bumetanide 2 Mg Tablet) 2 mg PO OraliauWeTh@00 PENNY Stop: 04/28/24 08:59 Last Admin: 05/02/23 09:11 Dose: 2 mg Clonazepam (Clonazepam 0.5 Mg Tablet) 0.5 mg PO TID PENNY Stop: 10/25/23 21:59 Last Admin: 05/02/23 09:11 Dose: 0.5 mg Diltiazem HCl (Diltiazem 30 Mg Tablet) 30 mg PO TID PENNY Stop: 04/27/24 21:59 Last Admin: 05/02/23 09:11 Dose: 30 mg Ferric Sodium Gluconate Complex (Sodium Ferric Gluconat/Sucrose 62.5 Mg/5 Ml Vial) 62.5 mg IV-PUSH WEEKLY [facility] Stop: 04/30/24 08:59 Last Admin: 05/01/23 12:07 Dose: 62.5 mg Sodium Chloride (0.9% Sodium Chloride 1,000 Ml) 1,000 mls @ 0 mls/hr MISCELLANE.Q0M PRN PRN Reason: Dialysis Stop: 04/27/24 15:23 Last Infusion: 05/01/23 12:09 Dose: Infused Ertapenem 0.5 gm/ Sodium (Chloride) 100 mls @ 200 mls/hr IV Q24H PENNY Stop: 04/29/24 11:29 Last Infusion: 05/01/23 16:30 Dose: Infused Sodium Chloride (0.9% Sodium Chloride 1,000 Ml) 1,000 mls @ 0 mls/hr MISCELLANE.Q0M PRN PRN Reason: Dialysis Stop: 04/30/24 08:32 Sodium Chloride (0.9% Sodium Chloride 1,000 Ml) 1,000 mls @ 0 mls/hr MISCELLANE.Q0M PRN PRN Reason: Dialysis Stop: 04/30/24 10:46 Ipratropium [place] (Ipratropium [place] 0.5 Mg/2.5 Ml Vial.Neb) 0.5 mg INHALATION QID [facility] Stop: 04/28/24 21:59 Last Admin: 05/02/23 08:35 Dose: 0.5 mg Levalbuterol HCl (Levalbuterol Hcl *Nf* 1.25 Mg/3 Ml Vial.Neb) 1.25 mg INHALATION QID [facility]; Protocol Stop: 04/28/24 21:59 Last Admin: 05/02/23 08:35 Dose: 1.25 mg Lidocaine/Prilocaine (Lidocaine-Prilocaine Cr 2.5-2.5% 5 Gm Tube) 1 applic TOPICAL ONCE PRN PRN Reason: Dialysis Stop: 04/27/24 17:44 Last Admin: 05/01/23 08:34 Dose: 1 applic Metoprolol Tartrate (Metoprolol Tartrate 25 Mg Tablet) 25 mg PO BID PENNY Stop: 04/27/24 20:59 Last Admin: 04/28/23 21:28 Dose: 25 mg Non-Formulary Medication (Dextromethorphan-Quinidine [Nuedexta]) 1 cap PO Q12H [facility] Stop: 04/27/24 17:44 Ondansetron HCl (Ondansetron 4 Mg/2 Ml Vial) 4 mg IV-PUSH Q6H PRN PRN Reason: Nausea And Vomiting Stop: 04/27/24 17:45 Pantoprazole Sodium (Pantoprazole 40 Mg Tablet.Dr) 40 mg PO DAILY [facility] Stop: 04/28/24 08:59 Last Admin: 05/02/23 09:11 Dose: 40 mg Paricalcitol (Paricalcitol 10 Mcg/2 Ml Vial) 2 mcg IV-PUSH MoFr@11 [facility] Stop: 04/30/24 10:59 Last Admin: 05/01/23 12:06 Dose: 2 mcg Potassium Chloride (Potassium Chloride Er 20 Meq Tab.Er.Prt) 40 meq PO DAILY PRN PRN Reason: Hypokalemia Stop: 04/27/24 17:45 Sildenafil Citrate (Sildenafil Citrate 20 Mg Tablet) 20 mg PO TID PENNY Stop: 04/27/24 21:59 Last Admin: 05/02/23 09:11 Dose: 20 mg Sodium Chloride (Sodium Chloride 0.9 % 10 Ml Syringe) 0 ml IV-PUSH PRN PRN PRN Reason: Flush Stop: 04/27/24 13:03 Last Admin: 05/01/23 15:54 Dose: 10 ml Sodium Chloride (Sodium Chloride 0.9 % 10 Ml Syringe) 0 ml IV-PUSH PRN PRN PRN Reason: Flush Stop: 04/27/24 15:23 Last Admin: 04/29/23 12:39 Dose: 10 ml Sodium Chloride (Sodium Chloride 0.9 % 10 Ml Syringe) 0 ml IV-PUSH PRN PRN PRN Reason: Flush Stop: 04/30/24 08:32 Sodium Chloride (Sodium Chloride 0.9 % 10 Ml Syringe) 0 ml IV-PUSH PRN PRN PRN Reason: Flush Stop: 04/30/24 10:46 A&P - Infectious Disease Assessment/Plan (1) E coli bacteremia: Code(s): R78.81 - Bacteremia; B96.20 - Unspecified Escherichia coli [E. coli] as the cause of diseases classified elsewhere Status: Acute (2) ESRD (end stage renal disease): Code(s): N18.6 - End stage renal disease Status: Acute (3) Pneumonia: Code(s): J18.9 - Pneumonia, unspecified organism Status: Acute Plan Patient source of E. coli in his blood I feel is secondary to perhaps prostate source based on imaging findings. Once blood cultures clear for which they are negative now at 1 day will likely benefit from a couple weeks worth of IV antibiotics. Given the ESBL producing organism he has grown continuing ertapenem. Given the prostamegaly seen on CT scan for what is worth we will check a PSA Documented By: Kostas Wade MD 05/02/234 Signed By: <Electronically signed by MD Kostas Wade> 05/02/23 1136 [facility] Work Phone: Progress note Author Bradford Henriquez [facility] May 02, 2023 11:44am Note Date/Time May 02, 2023 11 :42am [facility] [address] [place] [address] Hospitalist Progress Note Signed Patient: Ruddy Palmer MR#: [id number] : 1985 Acct:[id number] Age/Sex: 37 / M Adm Date: 3 Loc: Room: [address] [place] [address] Type: ADM IN Attending Dr: Bradford Henriquez MD Copies to: ~ Date of Service: 05/02/2023 Subjective Subjective Narrative: Assessment And Plan 37M with PMH of HTN, 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, Cerebral Palsy, Blindness, Hearing impairment, COPD, CRF (on Home O2), Pulmonary HTN, ESRD (on HD), PE (on Eliquis) who presented with Hypotension from dialysis center and admitted for the evaluation and treatment of suspected Bacterial Pneumonia vs UTI UTI ECOli ESBL E.Coli Bacteremia Seen and examined Clinically better No fever BLood cultures Blood Culture Preliminary 05/01/23-311 Gram Stain Gram Negative Bacilli Organism 1 Escherichia coli (ESBL) Urine culture Urine Culture Final 05/01/23-846 Organism 1 Escherichia coli (ESBL) [place] Count >100,000 CFU/ml Repeat blood cultures is negative so far Discussed with ID Plan for PICC line tomorrow Plan for 2 weeks ATB C/w Invanz IV Bacterial pneumonia - ruled out No fever CBC is trending down Blood cultures grew ECOLI Urine culture grew ECOLI On Invanz daily ESRD Nephrology was consulted for the management of dialysis and ESRD complication recommendation appreciated Subjective: He is not verbal Not on acute distress No fever Chronic diseases:?Unless mentioned Above, Essential home medications have been continued.? DVT Px:?Addressed Disposition:?To be determined Plan of care Discussed with:?the medical team, the patient mother Exam Physical Exam Vital Signs: Temp Pulse Resp BP Pulse Ox O2 Del Method O2 Flow Rate 98.2 F 122 H 18 117/63 93 L Nasal Cannula 4 05/02/23 09:00 05/02/23 09:00 05/02/23 09:00 05/02/23 09:00 05/02/23 09:00 05/02/23 09:00 05/02/23 09:00 Narrative: General:alert and awake non verbal not on acute distress HEENT: PERRLA, oral mucosa moist Neck: Supple no JVD no carotid bruit CVS S1-S2 regular rate and rhythm no murmur no gallop Chest clear to auscultation percussion no wheezing no crackles Abdomen: Soft bowel sounds normoactive no rebound no guarding Extremities no edema no clubbing Neurologic non verbal Skin exam: Normal no skin rash or lesions Musculoskeletal exam normal no joint effusion no movement limited no redness or swelling Objective Lab Results 05/02/23 05:40 05/02/23 05:40 Microbiology Results Microbiology 05/01/23 09:25 Blood - Right Hand Blood Culture - Preliminary No Growth 1 Day 05/01/23 09:23 Blood - Right Antecubital Blood Culture - Preliminary No Growth 1 Day 04/28/23 14:23 Blood - Right Antecubital Blood Culture - Final Escherichia coli (ESBL) 04/28/23 13:23 Blood - Right Antecubital Blood Culture - Final Escherichia coli (ESBL) 04/28/23 13:23 Blood - Right Antecubital Bacterial ID (NA Multiplex Assay) - Final 04/30/23 05:50 Blood - Right Antecubital Blood Culture - Preliminary Escherichia coli 04/30/23 05:50 Blood - Right Antecubital Bacterial ID (NA Multiplex Assay) - Final 05/01/23 16:32 Stool Stool Occult Blood (TRINA) - Final 04/29/23 17:00 Straight Catheter Urine Culture - Final Escherichia coli (ESBL) Meds Allergies and Active Meds Allergies ciprofloxacin [From Cipro] Allergy (Verified 04/28/23 13:10) Hives latex Allergy (Verified 04/28/23 13:10) Hives Active Meds: Active Medications Generic Name Dose Route Start Last Admin Trade Name Freq PRN Reason Stop Dose Admin Acetaminophen 650 mg 04/28/23 17:46 04/30/23 09:26 Acetaminophen 325 Mg Tablet PO 04/27/24 17:45 650 mg Q6H PRN Administration Pain 1-5 or fever Hydrocodone Bitart/Acetaminophen 1 tab 04/28/23 17:46 Hydrocodone/Acetaminophen 5-325 Mg Tablet PO Q4H PRN Pain Scale 4 - 6 Apixaban 2.5 mg 04/28/23 21:00 05/01/23 21:46 Apixaban 2.5 Mg Tablet PO 04/27/24 20:59 2.5 mg BID PENNY Administration Bumetanide 2 mg 04/29/23 09:00 05/02/23 09:11 Bumetanide 2 Mg Tablet PO 04/28/24 08:59 2 mg SuTuWeThSa@0900 PENNY Administration Clonazepam 0.5 mg 04/28/23 22:00 05/02/23 09:11 Clonazepam 0.5 Mg Tablet PO 10/25/23 21:59 0.5 mg TID PENNY Administration Diltiazem HCl 30 mg 04/28/23 22:00 05/02/23 09:11 Diltiazem 30 Mg Tablet PO 04/27/24 21:59 30 mg TID PENNY Administration Ferric Sodium Gluconate Complex 62.5 mg 05/01/23 09:00 05/01/23 12:07 Sodium Ferric Gluconat/Sucrose 62.5 Mg/5 Ml Vial IV-PUSH 04/30/24 08:59 62.5 mg WEEKLY PENNY Administration Sodium Chloride 1,000 mls @ 0 mls/hr 04/28/23 15:24 05/01/23 12:09 0.9% Sodium Chloride 1,000 Ml MISCELLANE 04/27/24 15:23 Infused .Q0M PRN Infusion Dialysis As Directed Ertapenem 0.5 gm/ Sodium 100 mls @ 200 mls/hr 04/30/23 11:30 05/01/23 16:30 Chloride IV 04/29/24 11:29 Infused Q24H PENNY Infusion Sodium Chloride 1,000 mls @ 0 mls/hr 05/01/23 08:33 0.9% Sodium Chloride 1,000 Ml MISCELLANE 04/30/24 08:32 .Q0M PRN Dialysis As Directed Sodium Chloride 1,000 mls @ 0 mls/hr 05/01/23 10:47 0.9% Sodium Chloride 1,000 Ml MISCELLANE 04/30/24 10:46 .Q0M PRN Dialysis As Directed Ipratropium [place] 0.5 mg 04/29/23 22:00 05/02/23 08:35 Ipratropium [place] 0.5 Mg/2.5 Ml Vial.Neb INHALATION 04/28/24 21:59 0.5 mg QID PENNY Administration Levalbuterol HCl 1.25 mg 04/29/23 22:00 05/02/23 08:35 Levalbuterol Hcl *Nf* 1.25 Mg/3 Ml Vial.Neb INHALATION 04/28/24 21:59 1.25 mg QID PENNY Administration Protocol Lidocaine/Prilocaine 1 applic 04/28/23 17:45 05/01/23 08:34 Lidocaine-Prilocaine Cr 2.5-2.5% 5 Gm Tube TOPICAL 04/27/24 17:44 1 applic ONCE PRN Administration Dialysis Metoprolol Tartrate 25 mg 04/28/23 21:00 04/28/23 21:28 Metoprolol Tartrate 25 Mg Tablet PO 04/27/24 20:59 25 mg BID PENNY Administration Non-Formulary Medication 1 cap 04/28/23 17:45 Dextromethorphan-Quinidine [Nuedexta] PO 04/27/24 17:44 Q12H PENNY Ondansetron HCl 4 mg 04/28/23 17:46 Ondansetron 4 Mg/2 Ml Vial IV-PUSH 04/27/24 17:45 Q6H PRN Nausea And Vomiting Pantoprazole Sodium 40 mg 04/29/23 09:00 05/02/23 09:11 Pantoprazole 40 Mg Tablet.Dr PO 04/28/24 08:59 40 mg DAILY PENNY Administration Paricalcitol 2 mcg 05/01/23 11:00 05/01/23 12:06 Paricalcitol 10 Mcg/2 Ml Vial IV-PUSH 04/30/24 10:59 2 mcg MoFr@11 [facility] Administration Potassium Chloride 40 meq 04/28/23 17:46 Potassium Chloride Er 20 Meq Tab.Er.Prt PO 04/27/24 17:45 DAILY PRN Hypokalemia Sildenafil Citrate 20 mg 04/28/23 22:00 05/02/23 09:11 Sildenafil Citrate 20 Mg Tablet PO 04/27/24 21:59 20 mg TID PENNY Administration Sodium Chloride 0 ml 04/28/23 13:04 05/01/23 15:54 Sodium Chloride 0.9 % 10 Ml Syringe IV-PUSH 04/27/24 13:03 10 ml PRN PRN Administration Flush Sodium Chloride 0 ml 04/28/23 15:24 04/29/23 12:39 Sodium Chloride 0.9 % 10 Ml Syringe IV-PUSH 04/27/24 15:23 10 ml PRN PRN Administration Flush Sodium Chloride 0 ml 05/01/23 08:33 Sodium Chloride 0.9 % 10 Ml Syringe IV-PUSH 04/30/24 08:32 PRN PRN Flush Sodium Chloride 0 ml 05/01/23 10:47 Sodium Chloride 0.9 % 10 Ml Syringe IV-PUSH 04/30/24 10:46 PRN PRN Flush Documented By: Bradford Henriquez MD 05/02/23 1142 Signed By: <Electronically signed by Bradford Henriquez MD> 05/02/23 1144 [facility] Work Phone: Progress note Author Jessica Macdonald [facility] May 02, 2023 2:01pm Note Date/Time May 02, 2023 2: 01pm [facility] [address] [place] [address] Nephrology Progress Note Signed Patient: Ruddy Palmer MR#: [id number] : 1985 Acct:[id number] Age/Sex: 37 / M Adm Date: 3 Loc: Room: [address] [place] [address] Type: ADM IN Attending Dr: Bradford Henriquez MD Copies to: ~ Date of Service: 05/02/2023 Subjective Subjective Narrative: This is a 37-year-old male with a medical history of hypertension, cerebral palsy, COPD, pulm hypertension , ESRD, PE on Apixaban, anemia of renal disease and secondary hyperparathyroidism was brought into the emergency room for fever and hypotension. He does not communicate and most of the history was taken frompatient's chart and the patient's mother. His mother stated that patient started running fever 2 days prior to admission and had a fever of 102. He started having mild cough. He went for a his dialysis and was noticed to have a hypotension so he was sent to the emergency room for evaluation. Mother reported patient has a ESRD for 2 years after he had a septic shock and required dialysis. She reported that he was seen by the milk driver many years ago whenhe was found to have a solitary kidney. Patient currently goes to the [facility] twice a week Monday and Monday schedule. He currently has AV fistula asa dialysis access. Mother reported that patient still makes urine but he he is incontinent. Nephrology is consulted for ESRD management during the hospital stay. Interval history Patient is being seen and examined in his bed. He is awake however he does not communicate. Mother in the room. Patient has no fever or chills. Blood pressure stable 126/72. He still on ertapenem for ESBL E. coli. CT scan showed large prostate which could be possibly the source. PSA is pending. No shortness of breath. No edema Exam Physical Exam Vital Signs: Temp Pulse Resp BP Pulse Ox O2 Del Method O2 Flow Rate 37.0 C 110 H 18 126/72 95 Nasal Cannula 4 05/02/23 12:45 05/02/23 12:45 05/02/23 12:45 05/02/23 12:45 05/02/23 12:45 05/02/23 12:45 05/02/23 12:45 Narrative: General: Awake, nonverbal on dialysis HEENT: Atraumatic, normal cephalic. He has mild pallor with no jaundice or cyanosis. Neck: Supple no JVD no carotid bruit CVS S1-S2: regular rate and rhythm no murmur no gallop Chest clear to auscultation percussion no wheezing no crackles Abdomen: Soft bowel sounds normoactive no rebound no guarding Extremities no edema no clubbing Neurologic non verbal Skin exam: Normal no skin rash or lesions Musculoskeletal exam normal no joint effusion no movement limited no redness or swelling Vascular access: Left arm AV fistula with good thrill. No evidence of infection. Objective Intake and Output I&O: Intake & Output 04/29/23 04/30/23 05/01/23 05/02/23 23:59 23:59 23:59 23:59 Intake Total 1060 / 1060 340 / 340 1350 / 1350 700 / 700 Output Total 500 / 500 1500 / 1500 Balance 560 / 560 340 / 340 -150 / -150 700 / 700 Weight 63.4 kg 62.7 kg 61.1 kg 61 kg Meds and Allergies Meds: Active Medications Acetaminophen (Acetaminophen 325 Mg Tablet) 650 mg PO Q6H PRN PRN Reason: Pain 1-5 or fever Stop: 04/27/24 17:45 Last Admin: 04/30/23 09:26 Dose: 650 mg Hydrocodone Bitart/Acetaminophen (Hydrocodone/Acetaminophen 5-325 Mg Tablet) 1 tab PO Q4H PRN PRN Reason: Pain Scale 4 - 6 Apixaban (Apixaban 2.5 Mg Tablet) 2.5 mg PO BID PENNY Stop: 04/27/24 20:59 Last Admin: 05/02/23 12:43 Dose: 2.5 mg Bumetanide (Bumetanide 2 Mg Tablet) 2 mg PO SuTuWeThSa@0900 PENNY Stop: 04/28/24 08:59 Last Admin: 05/02/23 09:11 Dose: 2 mg Clonazepam (Clonazepam 0.5 Mg Tablet) 0.5 mg PO TID [facility] Stop: 10/25/23 21:59 Last Admin: 05/02/23 09:11 Dose: 0.5 mg Diltiazem HCl (Diltiazem 30 Mg Tablet) 30 mg PO TID [facility] Stop: 04/27/24 21:59 Last Admin: 05/02/23 09:11 Dose: 30 mg Ferric Sodium Gluconate Complex (Sodium Ferric Gluconat/Sucrose 62.5 Mg/5 Ml Vial) 62.5 mg IV-PUSH WEEKLY [facility] Stop: 04/30/24 08:59 Last Admin: 05/01/23 12:07 Dose: 62.5 mg Sodium Chloride (0.9% Sodium Chloride 1,000 Ml) 1,000 mls @ 0 mls/hr MISCELLANE.Q0M PRN PRN Reason: Dialysis Stop: 04/27/24 15:23 Last Infusion: 05/01/23 12:09 Dose: Infused Ertapenem 0.5 gm/ Sodium (Chloride) 100 mls @ 200 mls/hr IV Q24H [facility] Stop: 04/29/24 11:29 Last Infusion: 05/01/23 16:30 Dose: Infused Sodium Chloride (0.9% Sodium Chloride 1,000 Ml) 1,000 mls @ 0 mls/hr MISCELLANE.Q0M PRN PRN Reason: Dialysis Stop: 04/30/24 08:32 Sodium Chloride (0.9% Sodium Chloride 1,000 Ml) 1,000 mls @ 0 mls/hr MISCELLANE.Q0M PRN PRN Reason: Dialysis Stop: 04/30/24 10:46 Ipratropium [place] (Ipratropium [place] 0.5 Mg/2.5 Ml Vial.Neb) 0.5 mg INHALATION QID [facility] Stop: 04/28/24 21:59 Last Admin: 05/02/23 12:13 Dose: 0.5 mg Levalbuterol HCl (Levalbuterol Hcl *Nf* 1.25 Mg/3 Ml Vial.Neb) 1.25 mg INHALATION QID [facility]; Protocol Stop: 04/28/24 21:59 Last Admin: 05/02/23 12:13 Dose: 1.25 mg Lidocaine/Prilocaine (Lidocaine-Prilocaine Cr 2.5-2.5% 5 Gm Tube) 1 applic TOPICAL ONCE PRN PRN Reason: Dialysis Stop: 04/27/24 17:44 Last Admin: 05/01/23 08:34 Dose: 1 applic Metoprolol Tartrate (Metoprolol Tartrate 25 Mg Tablet) 25 mg PO BID [facility] Stop: 04/27/24 20:59 Last Admin: 04/28/23 21:28 Dose: 25 mg Non-Formulary Medication (Dextromethorphan-Quinidine [Nuedexta]) 1 cap PO Q12H [facility] Stop: 04/27/24 17:44 Ondansetron HCl (Ondansetron 4 Mg/2 Ml Vial) 4 mg IV-PUSH Q6H PRN PRN Reason: Nausea And Vomiting Stop: 04/27/24 17:45 Pantoprazole Sodium (Pantoprazole 40 Mg Tablet.) 40 mg PO DAILY [facility] Stop: 04/28/24 08:59 Last Admin: 05/02/23 09:11 Dose: 40 mg Paricalcitol (Paricalcitol 10 Mcg/2 Ml Vial) 2 mcg IV-PUSH MoFr@11 [facility] Stop: 04/30/24 10:59 Last Admin: 05/01/23 12:06 Dose: 2 mcg Potassium Chloride (Potassium Chloride Er 20 Meq Tab.Er.Prt) 40 meq PO DAILY PRN PRN Reason: Hypokalemia Stop: 04/27/24 17:45 Sildenafil Citrate (Sildenafil Citrate 20 Mg Tablet) 20 mg PO TID [facility] Stop: 04/27/24 21:59 Last Admin: 05/02/23 09:11 Dose: 20 mg Sodium Chloride (Sodium Chloride 0.9 % 10 Ml Syringe) 0 ml IV-PUSH PRN PRN PRN Reason: Flush Stop: 04/27/24 13:03 Last Admin: 05/01/23 15:54 Dose: 10 ml Sodium Chloride (Sodium Chloride 0.9 % 10 Ml Syringe) 0 ml IV-PUSH PRN PRN PRN Reason: Flush Stop: 04/27/24 15:23 Last Admin: 04/29/23 12:39 Dose: 10 ml Sodium Chloride (Sodium Chloride 0.9 % 10 Ml Syringe) 0 ml IV-PUSH PRN PRN PRN Reason: Flush Stop: 04/30/24 08:32 Sodium Chloride (Sodium Chloride 0.9 % 10 Ml Syringe) 0 ml IV-PUSH PRN PRN PRN Reason: Flush Stop: 04/30/24 10:46 Allergies ciprofloxacin [From Cipro] Allergy (Verified 04/28/23 13:10) Hives latex Allergy (Verified 04/28/23 13:10) Hives Results Labs 05/02/23 05:40 05/02/23 05:40 Labs: 05/02/23 05:40 BUN 34 H Creatinine 4.05 H D Radiology Impressions Impressions - last 24 hours: Impressions Abdomen/Pelvis CT 05/01/23 11:57 IMPRESSION: 1. No acute findings. 2. Cholelithiasis. 3. Thickening of the esophagus to the GE junction. Finding May relate to esophagitis. Correlation endoscopy is recommended as underlying malignancy cannot BE excluded. 4. Prostatomegaly with urinary bladder wall thickening suggestive of bladder outlet obstruction. Impression dictated by: Maurilio Art Jr., D.OIsidra05/01/2023 3:38 PM Dictation Location: [place] [address] Any impression(s) listed above is documentation that was entered by the reading physician into a diagnostic report(s) for Ruddy Palmer. I have reviewed the report(s) and am incorporating any findings in the treatment plan of this patient where applicable. A&P - Nephrology Assessment/Plan (1) ESRD (end stage renal disease): Plan: He has a ESRD after MCKENNA in setting of sepsis. He has been on dialysis for 2 years and currently goes to the [facility] twice a week on Monday schedule (2) Sepsis associated hypotension: Plan: He was presented with fever leukocytosis and hypertension. His blood culture positive for E. coli bacteremia on ertapenem for ESBL. Source could be prostatic based on the CT scan finding of prostatomegaly and bladder outlet obstruction. (3) Anemia of renal disease: Plan: Hemoglobin is below the goal. He receives Mircera with dialysis. (4) Secondary hyperparathyroidism: Plan: He has a secondary hyperparathyroidism and currently receives IV Hectorol with dialysis. Plan * Patient had full hemodialysis yesterday. No volume overload, hyperkalemia or acidosis. Monitor daily intake and output and renal panel and plan for dialysis tomorrow * Continue ertapenem 0.5 g daily for ESBL bacteremia. ID was consulted and CT scan showed prostatomegaly with bladder neck obstruction possibly contributing to UTI. BC is pending. * Patient still makes urine as per the mother. Continue Bumex on nondialysis day. * Continue darbepoetin tatianna 40 mcg weekly, ferric sodium gluconate 62.5 mg IV weekly and paricalcitol 2 mcg with each hemodialysis * Monitor platelets closely and stop Eliquis if patient's platelet continue to drop Considering his mental status and multiple comorbidities, he was evaluated by palliative care and condition discussed with his family. Patient is currently DNR CCA without intubation however family would continue dialysis. Patient is able to help himself at home Documented By: Jessica Macdonald MD 05/02/23 7406 Signed By: <Electronically signed by MD Jessica Macdonald> 05/02/23 1406 [facility] Work Phone: Progress note Author Rajendra Pierce [facility] May 18, 2023 11:49am Note Date/Time May 18, 2023 8:41am [facility] [address] [place] [address] Hospitalist Progress Note Signed Patient: Ruddy Palmer MR#: [id number] : 1985 Acct:[id number] Age/Sex: 37 / M Adm Date: 3 Loc: Room: [address] [place] [address] Type: ADM IN Attending Dr: Rajendra Pierce MD Copies to: ~ Date of Service: 05/18/2023 Subjective Subjective Narrative: Patient sleeping in bed with BiPAP on, no family at bedside. Does grimace to painful stimuli but otherwise does not arouse to verbal stimuli. Is blind and hearing impaired. Update mother at bedside when we returned to room. States he does snore loudly but has never witnessed any apneic episodes. She does state that prior to coming hospital he did have a lot of salivating and possibly emesis episode while sleeping. Otherwise, she does just endorse generalized weakness. Patientdoes not speak at baseline. Exam Physical Exam Vital Signs: Temp Pulse Resp BP Pulse Ox O2 Del Method O2 Flow Rate 97.7 F 67 16 108/69 96 BiPAP 3 05/17/23 23:39 05/18/23 05:25 05/18/23 05:25 05/18/23 04:00 05/18/23 05:25 05/18/23 04:00 05/17/23 20:44 FiO2 40 05/18/23 05:25 Narrative: CONST- Thin HEAD - Normocephalic and atraumatic EENT-Blind NECK-Supple, no cervical lymphadenopathy CARDIAC-normal rate, regular rhythm, S1 & S2. PULM-diminished, bipap on, no accessory muscle use or cough noted ABD - Soft.? Bowel sounds are normal. No distention. No tenderness noted EXTREM-no edema BLE calves, nontender SKIN- W/D good turgor MS-unable to assess as patient does not participate in exam, AV fistula to LUE NEURO- nonverbal PSYCH-unable to assess Objective Lab Results 05/18/23 04:15 05/18/23 04:15 ABG Interpretation ABG results: 05/17/23 05/18/23 20:37 05:32 ABG pH 7.11 L* 7.13 L* ABG pCO2 70.8 H* 71.9 H* ABG pO2 79.9 L 56.5 L ABG HCO3 22.1 L 23.1 ABG Total CO2 24.3 25.3 ABG O2 Saturation 95.3 89.1 L ABG O2 Content 6.8 6.6 ABG Base Excess -8.0 L -7.0 L Meds Allergies and Active Meds Allergies ciprofloxacin [From Cipro] Allergy (Verified 05/17/23 12:29) Hives latex Allergy (Verified 05/17/23 12:29) Hives Active Meds: Active Medications Generic Name Dose Route Start Last Admin Trade Name Freq PRN Reason Stop Dose Admin Acetaminophen 650 mg 05/17/23 22:35 Acetaminophen 325 Mg Tablet PO 05/16/24 22:34 Q6HR PRN Pain Scale 1 - 3 or fever Bumetanide 2 mg 05/18/23 09:00 Bumetanide 2 Mg Tablet PO 05/17/24 08:59 SuTuWeThSa@0900 [facility] Clonazepam 0.5 mg 05/17/23 22:50 05/18/23 00:56 Clonazepam 0.5 Mg Tablet PO 11/13/23 22:49 Not Given TID PENNY Diltiazem HCl 30 mg 05/17/23 22:50 05/18/23 00:56 Diltiazem 30 Mg Tablet PO 05/16/24 22:49 30 mg TID PENNY Administration Ertapenem 0.5 gm/ Sodium 100 mls @ 200 mls/hr 05/18/23 19:00 Chloride IV 05/17/24 18:59 Q24H PENNY Ipratropium [place] 0.5 mg 05/18/23 09:00 Ipratropium [place] 0.5 Mg/2.5 Ml Vial.Neb INHALATION 05/16/24 22:59 TID PENNY Levalbuterol HCl 1.25 mg 05/18/23 09:00 Levalbuterol Hcl *Nf* 1.25 Mg/3 Ml Vial.Neb INHALATION 05/16/24 22:59 TID PENNY Protocol Metoprolol Tartrate 25 mg 05/17/23 22:50 05/18/23 00:56 Metoprolol Tartrate 25 Mg Tablet PO 05/16/24 22:49 25 mg BID PENNY Administration Non-Formulary Medication 1 each 05/18/23 09:00 Maltodextrin PO 05/17/24 08:59 DAILY PENNY Non-Formulary Medication 1 cap 05/17/23 23:00 Dextromethorphan-Quinidine [Nuedexta] PO 05/16/24 22:59 Q12H PENNY Pantoprazole Sodium 40 mg 05/18/23 23:30 Pantoprazole 40 Mg Tablet. PO 05/17/24 23:29 BID PENNY Sildenafil Citrate 20 mg 05/17/23 22:50 05/18/23 00:56 Sildenafil Citrate 20 Mg Tablet PO 05/16/24 22:49 20 mg TID PENNY Administration Sodium Chloride 0 ml 05/17/23 12:28 05/17/23 19:14 Sodium Chloride 0.9 % 10 Ml Syringe IV-PUSH 05/16/24 12:27 10 ml PRN PRN Administration Flush Sodium Chloride 0 ml 05/18/23 06:00 05/18/23 05:14 Sodium Chloride 0.9 % 10 Ml Syringe IV-PUSH 05/17/24 05:59 10 ml QSHIFT PENNY Administration Vitamin B Complex/Vit C/Folic Acid 1 tab 05/18/23 22:00 Folic Acid/Vit Bcomp,C 1 Tab Tablet PO 05/17/24 21:59 QHS [facility] A&P - Hospitalist Assessment/Plan (1) Acute hypercapnic respiratory failure: (2) E coli bacteremia: (3) ESRD (end stage renal disease): Plan Acute hypercapnic respiratory failure I suspect that the patient may have obstructive sleep apnea or hypoventilation syndrome Patient also reportedly has obstructive lung disease according to his mom. No prior history of smoking. Suspect that patient has restrictive lung disease Chronic hypoxic respiratory failure?wears oxygen at all times at home ? Continue BiPAP overnight and as needed ? Patient wears 3 L nasal cannula at all times ? Repeat ABG showed pH 7.13, PCO2 71.9, PO2 56.5, 89% O2 sat -Pulmonology consulted Defer further needed diagnostic and therapeutic invention related to his respiratory status and hypoventilation to pulmonary team Weakness and fatigue ? 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 Consult nephrology -Left upper extremity AV fistula?patient has had fistula declotted before ? US AV fistula, read pending -BUN 40, creatinine 5.78 upon admission Chronic conditions E. coli bacteremia?continue ertapenem Hearing impaired, blindness?assist with mealtimes Cerebral palsy Severe pulmonary hypertension?continue sildenafil HTN?monitor, continue diltiazem, metoprolol, Bumex?not on hemodialysis days Panacinar emphysema, bronchopulmonary dysplasia, asthma?continue nebulizers DVT PPx-SCDs, nonpharmacological therapy due to anemia, recent GI bleed Diet order-pur?ed CODE STATUS-DNR CCA without intubation as discussed with mother and prior records Discussed this case with his mom at the bedside. Documented By: Rajendra Pierce MD 05/18/23 0886 Signed By: <Electronically signed by Rajendra Pierce MD> 05/18/23 1149 <Electronically signed by DO LIZZY Hernandez> 05/18/23 1106 [facility] Work Phone: Progress note Author Rajendra Pierce [facility] May 19, 2023 12:32pm Note Date/Time May 19, 2023 8:22am [facility] [address] [place], [place] [id number] Hospitalist Progress Note Signed Patient: Ruddy Palmer MR#: [id number] : 1985 Acct:[id number] Age/Sex: 37 / M Adm Date: 3 Loc: 4 Room: [address] [place] [address] Type: ADM IN Attending Dr: Rajendra Pierce MD Copies to: ~ Date of Service: 05/19/2023 Subjective Subjective Narrative: Patient resting in bed, nursing staff at bedside for breakfast food. No family at bedside. Exam Physical Exam Vital Signs: Temp Pulse Resp BP Pulse Ox O2 Del Method O2 Flow Rate 97.6 F 83 20 114/59 L 95 Nasal Cannula 3 05/19/23 07:58 05/19/23 07:58 05/19/23 07:58 05/19/23 07:58 05/19/23 07:58 05/19/23 07:58 05/19/23 07:58 FiO2 40 05/19/23 05:34 Narrative: CONST- Thin, features of cerebral palsy. HEAD - Normocephalic and atraumatic EENT-Blind, bilateral eye atrophy. NECK-Supple, no cervical lymphadenopathy CARDIAC-normal rate, regular rhythm, S1 & S2. PULM-diminished, bipap on, no accessory muscle use or cough noted ABD - Soft.? Bowel sounds are normal. No distention. No tenderness noted EXTREM-no edema BLE calves, nontender SKIN- W/D good turgor MS-unable to assess as patient does not participate in exam, AV fistula to LUE NEURO- nonverbal, upper and lower extremities muscle atrophy. Upper and lower extremity joints contraction PSYCH-unable to assess Objective Lab Results 05/18/23 04:15 05/19/23 04:15 Microbiology Results Microbiology 05/17/23 14:13 Blood - Right Antecubital Blood Culture - Preliminary No Growth 1 Day 05/17/23 14:18 Blood - Pic Line Blood Culture - Preliminary No Growth 1 Day Meds Allergies and Active Meds Allergies ciprofloxacin [From Cipro] Allergy (Verified 05/17/23 12:29) Hives latex Allergy (Verified 05/17/23 12:29) Hives Active Meds: Active Medications Generic Name Dose Route Start Last Admin Trade Name Freq PRN Reason Stop Dose Admin Acetaminophen 650 mg 05/17/23 22:35 Acetaminophen 325 Mg Tablet PO 05/16/24 22:34 Q6HR PRN Pain Scale 1 - 3 or fever Bumetanide 2 mg 05/18/23 09:00 05/18/23 08:43 Bumetanide 2 Mg Tablet PO 05/17/24 08:59 2 mg SuTuWeThSa@0900 PEN[facility] Administration Clonazepam 0.25 mg 05/18/23 11:47 Clonazepam 0.25 Mg Tablet PO 11/13/23 22:49 TID PRN anxiety Darbepoetin Tatianna 60 mcg 05/19/23 09:00 Darbepoetin Tatianna In Polysorbat 60 Mcg/Ml Vial IV-PUSH 05/18/24 08:59 Fr@0900 [facility] Diltiazem HCl 30 mg 05/17/23 22:50 05/18/23 22:03 Diltiazem 30 Mg Tablet PO 05/16/24 22:49 30 mg TID PENNY Administration Heparin Sodium (Porcine) 2,000 unit 05/19/23 07:47 Heparin 10,000 Unit/10 Ml Vial IV 05/18/24 07:46 PRN PRN Dialysis Heparin Sodium (Porcine) 1,000 unit 05/19/23 07:47 Heparin 10,000 Unit/10 Ml Vial IV 05/18/24 07:46 PRN PRN Dialysis Ertapenem 0.5 gm/ Sodium 100 mls @ 200 mls/hr 05/18/23 19:00 05/18/23 19:13 Chloride IV 05/17/24 18:59 200 mls/hr Q24H PENNY Administration Sodium Chloride 1,000 mls @ 0 mls/hr 05/19/23 07:47 0.9% Sodium Chloride 1,000 Ml MISCELLANE 05/18/24 07:46 .Q0M PRN Dialysis As Directed Ipratropium [place] 0.5 mg 05/18/23 09:00 05/18/23 20:50 Ipratropium [place] 0.5 Mg/2.5 Ml Vial.Neb INHALATION 05/16/24 22:59 0.5 mg TID PENNY Administration Levalbuterol HCl 1.25 mg 05/18/23 09:00 05/18/23 20:50 Levalbuterol Hcl *Nf* 1.25 Mg/3 Ml Vial.Neb INHALATION 05/16/24 22:59 1.25 mg TID PENNY Administration Protocol Lidocaine/Prilocaine 1 applic 05/19/23 08:30 Lidocaine-Prilocaine Cr 2.5-2.5% 5 Gm Tube TOPICAL 05/19/23 08:31 ONCE ONE Metoprolol Tartrate 25 mg 05/17/23 22:50 05/18/23 22:03 Metoprolol Tartrate 25 Mg Tablet PO 05/16/24 22:49 25 mg BID PENNY Administration Non-Formulary Medication 1 each 05/18/23 09:00 Maltodextrin PO 05/17/24 08:59 DAILY PENNY Non-Formulary Medication 1 cap 05/17/23 23:00 Dextromethorphan-Quinidine [Nuedexta] PO 05/16/24 22:59 Q12H PENNY Pantoprazole Sodium 40 mg 05/19/23 09:00 Pantoprazole 40 Mg Tablet. PO 05/18/24 08:59 DAILY PENNY Sildenafil Citrate 20 mg 05/17/23 22:50 05/18/23 22:03 Sildenafil Citrate 20 Mg Tablet PO 05/16/24 22:49 20 mg TID PENNY Administration Sodium Chloride 0 ml 05/18/23 14:00 05/19/23 05:11 Sodium Chloride 0.9 % 10 Ml Syringe IV-PUSH 05/17/24 13:59 Not Given QSHIFT PENNY Sodium Chloride 0 ml 05/19/23 07:47 Sodium Chloride 0.9 % 10 Ml Syringe IV-PUSH 05/18/24 07:46 PRN PRN Flush Vitamin B Complex/Vit C/Folic Acid 1 tab 05/18/23 22:00 05/18/23 22:03 Folic Acid/Vit Bcomp,C 1 Tab Tablet PO 05/17/24 21:59 1 tab QHS PENNY Administration A&P - Hospitalist Assessment/Plan (1) Acute hypercapnic respiratory failure: (2) E coli bacteremia: (3) ESRD (end stage renal disease): Plan Acute hypercapnic respiratory failure Chronic hypoxic respiratory failure?wears oxygen at all times at home ? Continue BiPAP overnight and as needed ? Patient wears 3 L nasal cannula at all times ? Repeat ABG shortly after admission showed pH 7.13, PCO2 71.9, PO2 56.5, 89% O2 sat -ABG to improved today pH 7.21, PCO2 57.6, PO2 90.1, HCO3 22.5 -Pulmonology consulted and following, recommended noninvasive positive pressure ventilation Patient will be discharged home once cleared by pulmonary team and noninvasive positive pressure ventilation is arranged. Weakness and fatigue ? 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 Consult nephrology -Left upper extremity AV fistula?patient has had fistula declotted before ? US AV fistula showed decreased flow fistula, vascular consult placed -BUN 40, creatinine 5.78 upon admission?has worsened today to BUN 54, creatinine 6.7 Chronic conditions E. coli bacteremia?continue ertapenem Hearing impaired, blindness?assist with mealtimes Cerebral palsy Severe pulmonary hypertension?continue sildenafil HTN?monitor, continue diltiazem, metoprolol, Bumex?not on hemodialysis days Panacinar emphysema, bronchopulmonary dysplasia, asthma?continue nebulizers DVT PPx-SCDs, nonpharmacological therapy due to anemia, recent GI bleed Diet order-pur?ed CODE STATUS-DNR CCA without intubation as discussed with mother and prior records Documented By: Rajendra Pierce MD 05/19/23 0820 Signed By: <Electronically signed by Rajendra Pierce MD> 05/19/23 1232 <Electronically signed by DO LIZZY Hernandez> 05/19/23 0822 [facility] Work Phone: Progress note Author Melina Garcia [facility] May 19, 2023 10:24am Note Date/Time May 19, 2023 10:24am [facility] [address] [place] [address] Nephrology Progress Note Signed Patient: Ruddy Palmer MR#: [id number] : 1985 Acct:[id number] Age/Sex: 37 / M Adm Date: 3 Loc: Room: [address] [place] [address] Type: ADM IN Attending Dr: Rajendra Pierce MD Copies to: ~ Date of Service: 05/19/2023 Subjective Subjective Narrative: This is a 37-year-old male with a medical history of cerebral palsy, infantile intracranial hemorrhage, hypertension, blindness, deafness, chronic respiratory failure on home oxygen, pulm hypertension, history of PE on Eliquis ,ESRD on hemodialysis was brought into the emergency room for generalized weakness. On evaluation emergency room patient had a ABG which showed pH 7.11 PCO2 70.8 PO2 79.9 bicarb 22.1. His chest x-ray showed no acute finding. Patient was placed on BiPAP due to the hypercapnic respiratory failure. Patient has a ESRD due to the solitary kidney and septic induced MCKENNA. He has been on dialysis for more than 2 years and currently goes to the [facility] twice a week schedule Monday and Monday. He currently has AV fistula and was found to have a weak thrill on admission. He had ultrasound of the fistula which showed low blood flow with multiple stenosis. Nephrology is consulted for his ESRD management during the hospital stay. Interval history Patient was seen and examined at bedside and case was discussed with the HD RN. He is currently on BiPAP. Exam Physical Exam Vital Signs: Temp Pulse Resp BP Pulse Ox O2 Del Method O2 Flow Rate 97.7 F 69 20 130/71 100 BiPAP 3 05/19/23 09:32 05/19/23 10:00 05/19/23 09:32 05/19/23 10:00 05/19/23 09:32 05/19/23 09:32 05/19/23 09:00 FiO2 40 05/19/23 09:32 Narrative: General: Appears comfortable and not in distress Heart: S1-S2, no rub Lung: Bilateral air entry, no wheezing or crackles Abdomen: Soft, positive bowel sounds Extremities: No edema, no cyanosis Head: Atraumatic, normocephalic Ear: No external ear redness or tenderness Eyes: No pallor or redness Neck: No JVD or visible mass Skin: No rashes , warm to touch 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: Nonverbal, 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 Objective Intake and Output I&O: Intake & Output 05/16/23 05/17/23 05/18/23 05/19/23 23:59 23:59 23:59 23:59 Intake Total 100 / 100 600 / 600 500 / 500 Output Total 500 / 500 Balance 100 / 100 100 / 100 500 / 500 Weight 65.1 kg 67.7 kg 64.4 kg Meds and Allergies Meds: Active Medications Acetaminophen (Acetaminophen 325 Mg Tablet) 650 mg PO Q6HR PRN PRN Reason: Pain Scale 1 - 3 or fever Stop: 05/16/24 22:34 Bumetanide (Bumetanide 2 Mg Tablet) 2 mg PO SuTuWeThSa@0900 [facility] Stop: 05/17/24 08:59 Last Admin: 05/18/23 08:43 Dose: 2 mg Clonazepam (Clonazepam 0.25 Mg Tablet) 0.25 mg PO TID PRN PRN Reason: anxiety Stop: 11/13/23 22:49 Darbepoetin Tatianna (Darbepoetin Tatianna In Polysorbat 60 Mcg/Ml Vial) 60 mcg IV-PUSHFr@0900 [facility] Stop: 05/18/24 08:59 Last Admin: 05/19/23 10:07 Dose: 60 mcg Diltiazem HCl (Diltiazem 30 Mg Tablet) 30 mg PO TID [facility] Stop: 05/16/24 22:49 Last Admin: 05/19/23 08:34 Dose: Not Given Heparin Sodium (Porcine) (Heparin 10,000 Unit/10 Ml Vial) 2,000 unit IV PRN PRN PRN Reason: Dialysis Stop: 05/18/24 07:46 Heparin Sodium (Porcine) (Heparin 10,000 Unit/10 Ml Vial) 1,000 unit IV PRN PRN PRN Reason: Dialysis Stop: 05/18/24 07:46 Ertapenem 0.5 gm/ Sodium (Chloride) 100 mls @ 200 mls/hr IV Q24H [facility] Stop: 05/17/24 18:59 Last Admin: 05/18/23 19:13 Dose: 200 mls/hr Sodium Chloride (0.9% Sodium Chloride 1,000 Ml) 1,000 mls @ 0 mls/hr MISCELLANE.Q0M PRN PRN Reason: Dialysis Stop: 05/18/24 07:46 Last Infusion: 05/19/23 10:09 Dose: Infused Ipratropium [place] (Ipratropium [place] 0.5 Mg/2.5 Ml Vial.Neb) 0.5 mg INHALATION TID [facility] Stop: 05/16/24 22:59 Last Admin: 05/19/23 09:00 Dose: 0.5 mg Levalbuterol HCl (Levalbuterol Hcl *Nf* 1.25 Mg/3 Ml Vial.Neb) 1.25 mg INHALATION TID [facility]; Protocol Stop: 05/16/24 22:59 Last Admin: 05/19/23 08:59 Dose: 1.25 mg Metoprolol Tartrate (Metoprolol Tartrate 25 Mg Tablet) 25 mg PO BID PENNY Stop: 05/16/24 22:49 Last Admin: 05/19/23 08:34 Dose: Not Given Non-Formulary Medication (Maltodextrin) 1 each PO DAILY PENNY Stop: 05/17/24 08:59 Non-Formulary Medication (Dextromethorphan-Quinidine [Nuedexta]) 1 cap PO Q12H PEN[facility] Stop: 05/16/24 22:59 Pantoprazole Sodium (Pantoprazole 40 Mg Tablet.Dr) 40 mg PO DAILY [facility] Stop: 05/18/24 08:59 Sildenafil Citrate (Sildenafil Citrate 20 Mg Tablet) 20 mg PO TID [facility] Stop: 05/16/24 22:49 Last Admin: 05/19/23 08:34 Dose: Not Given Sodium Chloride (Sodium Chloride 0.9 % 10 Ml Syringe) 0 ml IV-PUSH QSHIFT PENNY Stop: 05/17/24 13:59 Last Admin: 05/19/23 05:11 Dose: Not Given Sodium Chloride (Sodium Chloride 0.9 % 10 Ml Syringe) 0 ml IV-PUSH PRN PRN PRN Reason: Flush Stop: 05/18/24 07:46 Last Admin: 05/19/23 10:08 Dose: 10 ml Vitamin B Complex/Vit C/Folic Acid (Folic Acid/Vit Bcomp,C 1 Tab Tablet) 1 tab PO QHS [facility] Stop: 05/17/24 21:59 Last Admin: 05/18/23 22:03 Dose: 1 tab Allergies ciprofloxacin [From Cipro] Allergy (Verified 05/17/23 12:29) Hives latex Allergy (Verified 05/17/23 12:29) Hives Results Labs 05/18/23 04:15 05/19/23 04:15 Labs: 05/19/23 04:15 BUN 54 H Creatinine 6.70 H D Phosphorus 5.4 Albumin 3.2 L Radiology Impressions Impressions - last 24 hours: Impressions A/V Fistula Ultrasound 05/18/23 05:00 IMPRESSION: This fistula has adequate size but there are several areas of stenosis noted. Overall flows are less than expected. Impression dictated by: Rojas No M.D.05/18/2023 1:35 PM Dictation Location: [facility] Any impression(s) listed above is documentation that was entered by the reading physician into a diagnostic report(s) for Ruddy Palmer. I have reviewed the report(s) and am incorporating any findings in the treatment plan of this patient where applicable. A&P - Nephrology Assessment/Plan (1) Acute hypercapnic respiratory failure: Assessment/Problem Details: Patient was found to have acute hypercapnic hayder failure and currently on BiPAP.. Pulmonary has been consulted currently on BiPAP. (2) ESRD (end stage renal disease) on dialysis: Assessment/Problem Details: He has ESRD due to the solitary kidney and failure to recovery after septic shock induced MCKENNA. He currently goes to the [facility] twice a week schedule. (3) Dialysis AV fistula malfunction: Assessment/Problem Details: His AV fistula showed low blood flow with multiple stenosis. (4) Anemia of renal disease: Assessment/Problem Details: Hemoglobin is within the goal. He currently receives Mircera with hemodialysis. (5) Secondary hyperparathyroidism: Assessment/Problem Details: He has a secondary hyperparathyroidism due to the ESRD. He currently on IV Hectorol with dialysis. (6) Prostatitis: Assessment/Problem Details: He is recently diagnosed to have prostatitis currently on IV ertapenem. Plan * Hemodialysis today as ordered. * Will continue IV Zemplar with hemodialysis. * Will continue Aranesp once weekly with hemodialysis while he is inpatient. * Continue vent management of respiratory failure as per pulmonary. * Vascular surgery has been consulted for his AV graft stenoses. * Continue IV antibiotics. Pharmacy to dose medication. Documented By: Melina Garcia MD 05/19/23 1022 Signed By: <Electronically signed by Melina Garcia MD> 05/19/23 1024 [facility] Work Phone: Progress note Author Rajendra Pierce [facility] May 19, 2023 1:13pm Note Date/Time May 19, 2023 1:07pm [facility] [address] [place] [address] Progress Note Signed Patient: Ruddy Palmer MR#: [id number] : 1985 Acct:[id number] Age/Sex: 37 / M Adm Date: 3 Loc: 4 Room: [address] [place] [address] Type: ADM IN Attending Dr: Rajendra Pierce MD Copies to: ~ Date of Service: 05/19/2023 Progress Narrative Note PROGRESS NOTE Progress Note: Patient needs a hospital bed for home use. Patient requires frequent or immediate changes in body positioning not feasible in a standard bed due to cerebral palsy and hypoxic respiratory failure. Patient requires head of bed to be elevated more than 30 degrees most of the time due to hypoxic respiratory failure and risk of aspiration, and use of noninvasive positive pressure ventilation. Documented By: Valorie Arrington RN 05/19/23 1300 Signed By: <Electronically signed by Valorie Arrington RN> 05/19/23 1312 <Electronically signed by Rajendra Pierce MD> 05/19/231312 [facility] Work Phone: Progress note Author Jami Grimes [facility] May 19, 2023 2:40pm Note Date/Time May 19, 2023 2:40pm [facility] [address] [place] [address] Pulmonology Progress Note Signed Patient: Ruddy Palmer MR#: [id number] : 1985 Acct:[id number] Age/Sex: 37 / M Adm Date: 3 Loc: Room: [address] [place] [address] Type: ADM IN Attending Dr: Rajendra Pierce MD Copies to: ~ Date of Service: 05/19/2023 Subjective Subjective Narrative: Patient was seen, examined and discussed during rounds today, he was in the inpatient dialysis unit receiving his hemodialysis when I saw him. He had BiPAPon which he tolerated adequately, his gases showed improvement in his hypercapnia. Patient had ABGs done on May 04 which was the first ever done on him showing same level of hypercapnia with a CO2 of 69 but his pH was 7.21, yesterday's pH was 7.11 with the same PCO2, indicating acute metabolic acidosis on top of his chronic respiratory acidosis. His CO2 is down to 57 today with pHup to 7.21 after initiating BiPAP therapy. Exam Physical Exam Vital Signs: Temp Pulse Resp BP Pulse Ox O2 Del Method O2 Flow Rate 97.6 F 66 20 147/83 H 100 BiPAP 3 05/19/23 13:29 05/19/23 13:29 05/19/23 13:29 05/19/23 13:29 05/19/23 13:29 05/19/23 13:29 05/19/23 09:00 FiO2 40 05/19/23 13:29 Narrative: General: Patient is alert awake, somewhat agitated during dialysis but otherwiseappears in no significant distress, currently with BiPAP on via facemask Eyes: Pupils equal round reactive to light HEENT: Normocephalic, atraumatic, oral mucosa moist Neck: Supple no lymphadenopathy or thyromegaly Cardiovascular: S1, S2, normal sounds, no murmurs or gallops noted, regular rhythm Lungs: Adequate air entry bilaterally, clear to auscultation Extremities: No significant peripheral edema, peripheral pulses adequate Neurologic: Limited exam at this point Objective Intake and Output I&O - Last 24 Hours: Intake & Output 05/18/23 05/19/23 05/19/23 23:59 07:59 15:59 Intake Total 300 / 600 0 / 980 980 / 980 Output Total 1499 / 1499 Balance 300 / 100 0 / -519 -519 / -519 Weight 64.4 kg Labs 05/18/23 04:15 05/19/23 04:15 Microbiology Micro: Microbiology 05/17/23 14:13 Blood Culture - Preliminary Blood - Right Antecubital No Growth 2 Days 05/17/23 14:18 Blood Culture - Preliminary Blood - Pic Line No Growth 2 Days 05/18/23 09:52 Urine Culture - Preliminary Straight Catheter No Growth 1 Day Assessment/Plan Assessment/Plan (1) Anemia of renal disease: (2) ESRD (end stage renal disease) on dialysis: (3) Cerebral palsy: (4) Acute on chronic respiratory failure with hypoxia and hypercapnia: (5) Pneumonia: (6) Sepsis associated hypotension: (7) E coli bacteremia: Plan Patient is stable with noninvasive ventilatory support at this point. I suspecthe has chronic hypercapnic respiratory failure with baseline PCO2 around 70 now with decompensated with a combination of respiratory and metabolic acidosis, requiring noninvasive ventilatory support with some improvement. Patient is limited in terms of mobility, he has high risk for aspiration, hospital bed to maintain elevation of the head of the bed is essential in his care and would be recommended, noninvasive ventilatory support at home is recommended as well, will initiate paperwork to arrange for equipments meanwhile continue all currenttreatment as before, can use BiPAP as needed during the day and at night. Documented By: Jami Grimes MD 05/19/23 1435 Signed By: <Electronically signed by Jami Grimes MD> 05/19/23 1440 [facility] Work Phone: Progress note Author Rajendra Pierce [facility] May 20, 2023 10:59am Note Date/Time May 20, 2023 10:59am [facility] [address] [place] [address] Hospitalist Progress Note Signed Patient: Ruddy Palmer MR#: [id number] : 1985 Acct:[id number] Age/Sex: 37 / M Adm Date: 3 Loc: Room: [address] [place] [address] Type: ADM IN Attending Dr: Rajendra Pierce MD Copies to: ~ Date of Service: 05/20/2023 Subjective Subjective Narrative: Patient resting in bed, nursing staff at bedside for breakfast food. No family at bedside. Exam Physical Exam Vital Signs: Temp Pulse Resp BP Pulse Ox O2 Del Method O2 Flow Rate 98.0 F 68 16 129/73 94 L Nasal Cannula 3 05/20/23 08:00 05/20/23 08:00 05/20/23 08:00 05/20/23 08:00 05/20/23 08:00 05/20/23 08:00 05/20/23 08:00 FiO2 40 05/20/23 06:31 Narrative: CONST- Thin, features of cerebral palsy. HEAD - Normocephalic and atraumatic EENT-Blind, bilateral eye atrophy. NECK-Supple, no cervical lymphadenopathy CARDIAC-normal rate, regular rhythm, S1 & S2. PULM-diminished, bipap on, no accessory muscle use or cough noted ABD - Soft.? Bowel sounds are normal. No distention. No tenderness noted EXTREM-no edema BLE calves, nontender SKIN- W/D good turgor MS-unable to assess as patient does not participate in exam, AV fistula to LUE NEURO- nonverbal, upper and lower extremities muscle atrophy. Upper and lower extremity joints contraction PSYCH-unable to assess Objective Lab Results 05/18/23 04:15 05/20/23 05:00 Microbiology Results Microbiology 05/18/23 09:52 Straight Catheter Urine Culture - Final No Growth 2 Days 05/17/23 14:13 Blood - Right Antecubital Blood Culture - Preliminary No Growth 2 Days 05/17/23 14:18 Blood - Pic Line Blood Culture - Preliminary No Growth 2 Days Meds Allergies and Active Meds Allergies ciprofloxacin [From Cipro] Allergy (Verified 05/17/23 12:29) Hives latex Allergy (Verified 05/17/23 12:29) Hives Active Meds: Active Medications Generic Name Dose Route Start Last Admin Trade Name Freq PRN Reason Stop Dose Admin Acetaminophen 650 mg 05/17/23 22:35 Acetaminophen 325 Mg Tablet PO 05/16/24 22:34 Q6HR PRN Pain Scale 1 - 3 or fever Bumetanide 2 mg 05/18/23 09:00 05/20/23 09:14 Bumetanide 2 Mg Tablet PO 05/17/24 08:59 2 mg SuTuWeThSa@0900 PENNY Administration Clonazepam 0.25 mg 05/18/23 11:47 Clonazepam 0.25 Mg Tablet PO 11/13/23 22:49 TID PRN anxiety Darbepoetin Tatianna 60 mcg 05/19/23 09:00 05/19/23 10:07 Darbepoetin Tatianna In Polysorbat 60 Mcg/Ml Vial IV-PUSH 05/18/24 08:59 60 mcg Fr@0900 PENNY Administration Diltiazem HCl 30 mg 05/17/23 22:50 05/20/23 09:14 Diltiazem 30 Mg Tablet PO 05/16/24 22:49 30 mg TID PENNY Administration Heparin Sodium (Porcine) 2,000 unit 05/19/23 07:47 Heparin 10,000 Unit/10 Ml Vial IV 05/18/24 07:46 PRN PRN Dialysis Heparin Sodium (Porcine) 1,000 unit 05/19/23 07:47 Heparin 10,000 Unit/10 Ml Vial IV 05/18/24 07:46 PRN PRN Dialysis Ertapenem 0.5 gm/ Sodium 100 mls @ 200 mls/hr 05/18/23 19:00 05/19/23 18:38 Chloride IV 05/17/24 18:59 Infused Q24H PENNY Infusion Sodium Chloride 1,000 mls @ 0 mls/hr 05/19/23 07:47 05/19/23 10:09 0.9% Sodium Chloride 1,000 Ml MISCELLANE 05/18/24 07:46 Infused .Q0M PRN Infusion Dialysis As Directed Ipratropium [place] 0.5 mg 05/18/23 09:00 05/20/23 07:33 Ipratropium [place] 0.5 Mg/2.5 Ml Vial.Neb INHALATION 05/16/24 22:59 0.5 mg TID PENNY Administration Levalbuterol HCl 1.25 mg 05/18/23 09:00 05/20/23 07:32 Levalbuterol Hcl *Nf* 1.25 Mg/3 Ml Vial.Neb INHALATION 05/16/24 22:59 1.25 mg TID PENNY Administration Protocol Metoprolol Tartrate 25 mg 05/17/23 22:50 05/20/23 09:14 Metoprolol Tartrate 25 Mg Tablet PO 05/16/24 22:49 25 mg BID PENNY Administration Non-Formulary Medication 1 each 05/18/23 09:00 Maltodextrin PO 05/17/24 08:59 DAILY PENNY Non-Formulary Medication 1 cap 05/17/23 23:00 Dextromethorphan-Quinidine [Nuedexta] PO 05/16/24 22:59 Q12H PENNY Pantoprazole Sodium 40 mg 05/19/23 09:00 05/20/23 09:14 Pantoprazole 40 Mg Tablet. PO 05/18/24 08:59 40 mg DAILY PENNY Administration Sildenafil Citrate 20 mg 05/17/23 22:50 05/20/23 09:14 Sildenafil Citrate 20 Mg Tablet PO 05/16/24 22:49 20 mg TID PENNY Administration Sodium Chloride 0 ml 05/18/23 14:00 05/19/23 22:08 Sodium Chloride 0.9 % 10 Ml Syringe IV-PUSH 05/17/24 13:59 10 ml QSHIFT PENNY Administration Sodium Chloride 0 ml 05/19/23 07:47 05/19/23 18:09 Sodium Chloride 0.9 % 10 Ml Syringe IV-PUSH 05/18/24 07:46 10 ml PRN PRN Administration Flush Vitamin B Complex/Vit C/Folic Acid 1 tab 05/18/23 22:00 05/19/23 22:07 Folic Acid/Vit Bcomp,C 1 Tab Tablet PO 05/17/24 21:59 1 tab QHS PENNY Administration A&P - Hospitalist Assessment/Plan (1) Acute hypercapnic respiratory failure: (2) ESRD (end stage renal disease): (3) Anemia of renal disease: (4) Secondary hyperparathyroidism: (5) ESRD (end stage renal disease) on dialysis: (6) Cerebral palsy: Plan Acute hypercapnic respiratory failure Chronic hypoxic respiratory failure?wears oxygen at all times at home ? Continue BiPAP overnight and as needed -Pulmonology consulted and following, recommended noninvasive positive pressure ventilation Patient will be discharged home once cleared by pulmonary team and noninvasive positive pressure ventilation is arranged. Weakness and fatigue ? 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 Consult nephrology -Left upper extremity AV fistula?patient has had fistula declotted before ? US AV fistula showed decreased flow fistula, vascular consult placed. Vascular team is recommending elective fistulogram. -BUN 40, creatinine 5.78 upon admission?has worsened today to BUN 54, creatinine 6.7 Chronic conditions E. coli bacteremia?continue ertapenem, repeat blood cultures negative. Hearing impaired, blindness?assist with mealtimes Cerebral palsy Severe pulmonary hypertension?continue sildenafil HTN?monitor, continue diltiazem, metoprolol, Bumex?not on hemodialysis days Panacinar emphysema, bronchopulmonary dysplasia, asthma?continue nebulizers DVT PPx-SCDs, nonpharmacological therapy due to anemia, recent GI bleed Diet order-pur?ed CODE STATUS-DNR CCA without intubation as discussed with mother and prior records Documented By: Rajendra Pierce MD 05/20/23 1057 Signed By: <Electronically signed by Rajendra Pierce MD> 05/20/23 1056 [facility] Work Phone: Progress note Author Rajendra Pierce [facility] May 20, 2023 11:45am Note Date/Time May 20, 2023 11:45am [facility] [address] [place] [address] Progress Note Signed Patient: Ruddy Palmer MR#: [id number] : 1985 Acct:[id number] Age/Sex: 37 / M Adm Date: 3 Loc: Room: [address] [place] [address] Type: ADM IN Attending Dr: Rajendra Pierce MD Copies to: ~ Date of Service: 05/20/2023 Progress Narrative Note PROGRESS NOTE Progress Note: I called his mom Fabby and gave her update on his condition, status and tx plan. I answered all other questions. Fabby is appreciative of the care that her sonhad received here at [facility]. Documented By: Rajendra Pierce MD 05/20/23 1143 Signed By: <Electronically signed by Rajendra Pierce MD> 05/20/23 1145 [facility] Work Phone: Progress note Author Melina Garcia [facility] May 20, 2023 1:40pm Note Date/Time May 20, 2023 1:39pm [facility] [address] [place] [address] Nephrology Progress Note Signed Patient: Ruddy Palmer MR#: [id number] : 1985 Acct:[id number] Age/Sex: 37 / M Adm Date: 3 Loc: Room: [address] [place] [address] Type: ADM IN Attending Dr: Rajendra Pierce MD Copies to: ~ Date of Service: 05/20/2023 Subjective Subjective Narrative: This is a 37-year-old male with a medical history of cerebral palsy, infantile intracranial hemorrhage, hypertension, blindness, deafness, chronic respiratory failure on home oxygen, pulm hypertension, history of PE on Eliquis ,ESRD on hemodialysis was brought into the emergency room for generalized weakness. On evaluation emergency room patient had a ABG which showed pH 7.11 PCO2 70.8 PO2 79.9 bicarb 22.1. His chest x-ray showed no acute finding. Patient was placed on BiPAP due to the hypercapnic respiratory failure. Patient has a ESRD due to the solitary kidney and septic induced MCKENNA. He has been on dialysis for more than 2 years and currently goes to the [facility] twice a week schedule Monday and Monday. He currently has AV fistula and was found to have a weak thrill on admission. He had ultrasound of the fistula which showed low blood flow with multiple stenosis. Nephrology is consulted for his ESRD management during the hospital stay. Interval history Patient was seen and examined at bedside in his room. He is on nasal oxygen. Patient appears to be his baseline. Patient is nonverbal. He had hemodialysis yesterday and tolerated well. Exam Physical Exam Vital Signs: Temp Pulse Resp BP Pulse Ox O2 Del Method O2 Flow Rate 98.0 F 68 16 129/73 94 L Nasal Cannula 3 05/20/23 08:00 05/20/23 08:00 05/20/23 08:00 05/20/23 08:00 05/20/23 08:00 05/20/23 08:00 05/20/23 08:00 FiO2 40 05/20/23 08:00 Narrative: General: Appears comfortable and not in distress Heart: S1-S2, no rub Lung: Bilateral air entry, no wheezing or crackles Abdomen: Soft, positive bowel sounds Extremities: No edema, no cyanosis Head: Atraumatic, normocephalic Ear: No external ear redness or tenderness Eyes: No pallor or redness Neck: No JVD or visible mass Skin: No rashes , warm to touch 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: Nonverbal, 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 Objective Intake and Output I&O: Intake & Output 05/17/23 05/18/23 05/19/23 05/20/23 23:59 23:59 23:59 23:59 Intake Total 100 / 100 700 / 700 1680 / 1680 100 / 100 Output Total 500 / 500 1499 / 1499 Balance 100 / 100 200 / 200 181 / 181 100 / 100 Weight 65.1 kg 67.7 kg 64.4 kg 62.3 kg Meds and Allergies Meds: Active Medications Acetaminophen (Acetaminophen 325 Mg Tablet) 650 mg PO Q6HR PRN PRN Reason: Pain Scale 1 - 3 or fever Stop: 05/16/24 22:34 Bumetanide (Bumetanide 2 Mg Tablet) 2 mg PO SuTuWeThSa@0900 [facility] Stop: 05/17/24 08:59 Last Admin: 05/20/23 09:14 Dose: 2 mg Clonazepam (Clonazepam 0.25 Mg Tablet) 0.25 mg PO TID PRN PRN Reason: anxiety Stop: 11/13/23 22:49 Darbepoetin Tatianna (Darbepoetin Tatianna In Polysorbat 60 Mcg/Ml Vial) 60 mcg IV-PUSHFr@0900 PENNY Stop: 05/18/24 08:59 Last Admin: 05/19/23 10:07 Dose: 60 mcg Diltiazem HCl (Diltiazem 30 Mg Tablet) 30 mg PO TID PENNY Stop: 05/16/24 22:49 Last Admin: 05/20/23 09:14 Dose: 30 mg Heparin Sodium (Porcine) (Heparin 10,000 Unit/10 Ml Vial) 2,000 unit IV PRN PRN PRN Reason: Dialysis Stop: 05/18/24 07:46 Heparin Sodium (Porcine) (Heparin 10,000 Unit/10 Ml Vial) 1,000 unit IV PRN PRN PRN Reason: Dialysis Stop: 05/18/24 07:46 Ertapenem 0.5 gm/ Sodium (Chloride) 100 mls @ 200 mls/hr IV Q24H PENNY Stop: 05/17/24 18:59 Last Infusion: 05/19/23 18:38 Dose: Infused Sodium Chloride (0.9% Sodium Chloride 1,000 Ml) 1,000 mls @ 0 mls/hr MISCELLANE.Q0M PRN PRN Reason: Dialysis Stop: 05/18/24 07:46 Last Infusion: 05/19/23 10:09 Dose: Infused Ipratropium [place] (Ipratropium [place] 0.5 Mg/2.5 Ml Vial.Neb) 0.5 mg INHALATION TID [facility] Stop: 05/16/24 22:59 Last Admin: 05/20/23 07:33 Dose: 0.5 mg Levalbuterol HCl (Levalbuterol Hcl *Nf* 1.25 Mg/3 Ml Vial.Neb) 1.25 mg INHALATION TID [facility]; Protocol Stop: 05/16/24 22:59 Last Admin: 05/20/23 07:32 Dose: 1.25 mg Metoprolol Tartrate (Metoprolol Tartrate 25 Mg Tablet) 25 mg PO BID PENNY Stop: 05/16/24 22:49 Last Admin: 05/20/23 09:14 Dose: 25 mg Non-Formulary Medication (Maltodextrin) 1 each PO DAILY [facility] Stop: 05/17/24 08:59 Non-Formulary Medication (Dextromethorphan-Quinidine [Nuedexta]) 1 cap PO Q12H PENNY Stop: 05/16/24 22:59 Pantoprazole Sodium (Pantoprazole 40 Mg Tablet.Dr) 40 mg PO DAILY PENNY Stop: 05/18/24 08:59 Last Admin: 05/20/23 09:14 Dose: 40 mg Sildenafil Citrate (Sildenafil Citrate 20 Mg Tablet) 20 mg PO TID PENNY Stop: 05/16/24 22:49 Last Admin: 05/20/23 09:14 Dose: 20 mg Sodium Chloride (Sodium Chloride 0.9 % 10 Ml Syringe) 0 ml IV-PUSH QSHIFT PENNY Stop: 05/17/24 13:59 Last Admin: 05/19/23 22:08 Dose: 10 ml Sodium Chloride (Sodium Chloride 0.9 % 10 Ml Syringe) 0 ml IV-PUSH PRN PRN PRN Reason: Flush Stop: 05/18/24 07:46 Last Admin: 05/19/23 18:09 Dose: 10 ml Vitamin B Complex/Vit C/Folic Acid (Folic Acid/Vit Bcomp,C 1 Tab Tablet) 1 tab PO QHS PENNY Stop: 05/17/24 21:59 Last Admin: 05/19/23 22:07 Dose: 1 tab Allergies ciprofloxacin [From Cipro] Allergy (Verified 05/17/23 12:29) Hives latex Allergy (Verified 05/17/23 12:29) Hives Results Labs 05/18/23 04:15 05/20/23 05:00 Labs: 05/20/23 05:00 BUN 21 D Creatinine 3.76 H D Radiology Impressions Impressions - last 24 hours: Any impression(s) listed above is documentation that was entered by the reading physician into a diagnostic report(s) for Ruddy Palmer. I have reviewed the report(s) and am incorporating any findings in the treatment plan of this patient where applicable. A&P - Nephrology Assessment/Plan (1) Acute hypercapnic respiratory failure: Assessment/Problem Details: Patient was found to have acute hypercapnic hayder failure and currently on BiPAP.. Pulmonary has been consulted currently on BiPAP. (2) ESRD (end stage renal disease) on dialysis: Assessment/Problem Details: He has ESRD due to the solitary kidney and failure to recovery after septic shock induced MCKENNA. He currently goes to the [facility] twice a week schedule. (3) Dialysis AV fistula malfunction: Assessment/Problem Details: His AV fistula showed low blood flow with multiple stenosis. (4) Anemia of renal disease: Assessment/Problem Details: Hemoglobin is within the goal. He currently receives Mircera with hemodialysis. (5) Secondary hyperparathyroidism: Assessment/Problem Details: He has a secondary hyperparathyroidism due to the ESRD. He currently on IV Hectorol with dialysis. (6) Prostatitis: Assessment/Problem Details: He is recently diagnosed to have prostatitis currently on IV ertapenem. Plan * No need for dialysis today. Next dialysis will be on Monday. * Will continue IV Zemplar with hemodialysis. * Will continue Aranesp once weekly with hemodialysis while he is inpatient. * Vascular surgery consult appreciated recommended fistulogram inpatient versus outpatient. Documented By: Melina Garcia MD 05/20/23 0937 Signed By: <Electronically signed by Melina Garcia MD> 05/20/23 1340 [facility] Work Phone: [facility] Narrative* Auth/Cert Specialty Diagnoses / Procedures Referred By Osiris t Referred To Contact Diagnoses End stage renal disease END STAGE RENAL DISEASE Procedures IL AV ANAST,UP ARM CEPHALIC VEIN TRANSPOSIT UPPER EXTREMITY AV FISTULA CREATION VS AV GRAFT Justyn Alvarez MD [address] [address] [address] [place] [address] [facility] [address] [place] [address] Referral ID Status Reason Start Date Expiration Date Visits Re quested Visits Authorized 1 1 [employer] Phone: Summary Purpose Family History No Family History Records FoundNo Family History Records FoundNo Family History Records FoundNo Family History Records FoundNo Family History Records FoundNo Family History Records Found Advance Directives No Advanced Directives Records FoundLatest Code Status on File Code Status Date Activated Date Inactivated Comments Full Code 01/18/2022 8:38 AM Latest Code Status on File Code Status Date Activated Date Inactivated Comments Full Code 02/04/2022 1:20 PM Full Code 01/18/2022 8:38 AM 01/18/2022 3:54 PM Latest Code Status on File Code Status Date Activated Date Inactivated Comments Full Code 08/18/2022 8:45 AM Full Code 02/04/2022 1:20 PM 02/05/2022 2:40 AM Latest Code Status on File Code Status Date Activated Date Inactivated Comments Full Code 10/27/2022 11:07 AM Full Code 08/18/2022 8:45 AM 08/19/2022 12:01 PM Latest Code Status on File Code Status Date Activated Date Inactivated Comments Full Code 02/02/2023 2:29 PM Code Status History Code Status Date Activated Date Inactivated Comments Full Code 10/27/2022 11:07 AM 10/30/2022 5:14 PM Full Code 08/18/2022 8:45 AM 08/19/2022 12:01 PM Full Code 02/04/2022 1:20 PM 02/05/2022 2:40 AM Full Code 01/18/2022 8:38 AM 01/18/2022 3:54 PM Advance Directive Response Recorded Date/ Time Advance Directives No April 28, 2023 2:48pm Latest Code Status on File Code Status Date Activated Date Inactivated Comments Full Code 05/26/2023 9:49 PM Code Status History Code Status Date Activated Date Inactivated Comments Full Code 02/02/2023 2:29 PM 02/02/2023 7:49 PM Full Code 10/27/2022 11:07 AM 10/30/2022 5:14 PM Full Code 08/18/2022 8:45 AM 08/19/2022 12:01 PM Full Code 02/04/2022 1:20 PM 02/05/2022 2:40 AM Documents on File Type Date Recorded Patient Fence Repairman Expl anation DNR Physician Order 04/29/2021 3:20 PM DNR Physician Order 04/05/2021 3:14 PM Date Activated Date Inactivated Comments 04/12/2021 10:07 PM 04/25/2021 3:23 PM Date Activated Date Inactivated Comments 03/17/2021 1:14 PM 03/31/2021 8:27 PM Date Activated Date Inactivated Comments 03/17/2021 5:07 AM 03/17/2021 1:14 PM Documents on File Type Date Recorded Patient Fence Repairman Expl anation ACP-Guardianship 05/22/2024 5:12 PM ACP-Guardianship 08/08/2023 3:02 PM ACP-Do Not Resuscitate 08/08/2023 2:53 PM ACP-Do Not Resuscitate 06/16/2023 12:25 PM ACP-Guardianship 06/16/2023 12:25 PM ACP-Guardianship 06/13/2023 10:[address] [facility] PROBATE VISION, LETTER OF GUARDIANSHIP ACP-Do Not Resuscitate 06/13/2023 10:40 AM DNR COMFORT CARE ACP-Guardianship 05/30/2023 2:51 PM ACP-Do Not Resuscitate 05/30/2023 2:51 PM Date Activated Date Inactivated Comments 09/12/2024 2:10 PM Date Activated Date Inactivated Comments 05/21/2024 12:42 PM 05/21/2024 6:06 PM Date Activated Date Inactivated Comments 08/05/2023 5:43 AM 08/07/2023 11:22 PM Date Activated Date Inactivated Comments 08/05/2023 12:10 AM 08/05/2023 5:43 AM Date Activated Date Inactivated Comments 06/13/2023 6:08 PM 06/14/2023 8:59 PM Reason for Referral Specialty Diagnoses / Procedures Referred By Contac t Referred To Contact Radiology Diagnoses ESRD (end stage renal disease) on dialysis (HCC) Preop testing Procedures VL UPPER EXTREMITY BILATERAL VEIN MAPPING Justyn Alvarez MD [address] [facility] [place] [address] Referral ID Status Reason Start Date Expiration Date V isits Requested Visits Authorized [id number] Pending Review 12/13/2021 12/13/2022 1 1 Specialty Diagnoses / Procedures Referred By Contac t Referred To Contact 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 [employer] 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 Diagnoses Cognitive developmental delay Cerebral palsy, unspecified type (HCC) Urvashi Rebollar MD [address] [facility] [address] [place] [address] Referral ID Status Reason Start Date Expiration Date V isits Requested Visits Authorized [id number] Open Specialty Services Required 05/27/2023 05/26/2024 1 1 Question Answer I certify that I, or a nurse practitioner or physician anesthesiology physician assistant working with me, had an in-person encounter with the patient and the reason for the home care services is documented in the clinical note on: 05/27/2023 Will the referring provider be the attending provider for home health? Cleary of attending provider for home health Denis Melvin MD The patient is confined to home: Due to illness or injury that necessitates supportive device aid, use of special transportation, or assistance of another person to leave home, AND there is a normal inability to leave home, AND leaving home requires considerable taxing effort, Due to a condition where leaving their home is medically contraindicated, AND there is a normal inability to leave home, AND leaving home requires a considerable and taxing effort Patient requires the following home health services Home Health Aide Comments Certification and medical necessity: I certify that, based on my findings, the following services are medically necessary home health services for Ruddy Palmer for the following reasons: - Vital signs monitoring: Nurse to perform BP, HR, RR, Temp, and Weight with each visit and teach patient and caregivers on taking daily. Nurse to call physician if pulse less than 50 or greater than 120, respiratory rate less than 12 or greater than 25, oral temperature greater than or equal to 101 oF, systolic BP less than 90 or greater than 170, diastolic BP less than 50 or greater than 100. - Vascular catheter device orders: PICC Line for IV antibiotics - IV antibiotics Chief Complaint and Reason for Visit Chief Complaint hypotenison Reason for Visit Chronic renal failur e Pneumonia Chief Complaint hypotenison Reason for Visit Anemia of renal dise ase Blood in stool Cerebral palsy Counseling regarding advanced care planning and goals of care E coli bacteremia ESRD (end stage renal disease) Heme + stool Pneumonia Prostatitis Secondary hyperparathyroidism Sepsis associated hypotension Chief Complaint hypotenison sob facial swelling Reason for Visit Anemia of renal dise ase Blood in stool Cerebral palsy Counseling regarding advanced care planning and goals of care E coli bacteremia ESRD (end stage renal disease) Heme + stool Pneumonia Prostatitis Secondary hyperparathyroidism Sepsis associated hypotension Anemia of renal disease Cerebral palsy Symptomatic anemia Chief Complaint hypotenison sob facial swelling Reason for Visit Anemia of renal dise ase Blood in stool Cerebral palsy Counseling regarding advanced care planning and goals of care E coli bacteremia ESRD (end stage renal disease) Heme + stool Pneumonia Prostatitis Secondary hyperparathyroidism Sepsis associated hypotension Anemia Anemia of renal disease Cerebral palsy Counseling regarding advanced care planning and goals of care E coli bacteremia ESRD (end stage renal disease) Symptomatic anemia Chief Complaint hypotenison sob facial swelling weakness,vomiting,diarrhea Reason for Visit Anemia of renal dise ase Blood in stool Cerebral palsy Counseling regarding advanced care planning and goals of care E coli bacteremia ESRD (end stage renal disease) Heme + stool Pneumonia Prostatitis Secondary hyperparathyroidism Sepsis associated hypotension Anemia Anemia of renal disease Cerebral palsy Counseling regarding advanced care planning and goals of care E coli bacteremia ESRD (end stage renal disease) Symptomatic anemia A-V fistula Acute hypercapnic respiratory failure Anemia Cerebral palsy Counseling regarding advanced care planning and goals of care ESRD (end stage renal disease) ESRD (end stage renal disease) on dialysis Weakness Chief Complaint hypotenison sob facial swelling weakness,vomiting,diarrhea Reason for Visit Anemia of renal dise ase Blood in stool Cerebral palsy Counseling regarding advanced care planning and goals of care E coli bacteremia Heme + stool Pneumonia Prostatitis Secondary hyperparathyroidism Sepsis associated hypotension Anemia Anemia of renal disease Cerebral palsy Counseling regarding advanced care planning and goals of care E coli bacteremia Symptomatic anemia A-V fistula Acute hypercapnic respiratory failure Acute on chronic respiratory failure with hypoxia and hypercapnia Anemia Anemia of renal disease Cerebral palsy Counseling regarding advanced care planning and goals of care Dialysis AV fistula malfunction E coli bacteremia ESRD (end stage renal disease) on dialysis Pneumonia Prostatitis Secondary hyperparathyroidism Sepsis associated hypotension Weakness Chief Complaint hypotenison sob facial swelling weakness,vomiting,diarrhea Prostatitis Reason for Visit Anemia of renal dise ase Blood in stool Cerebral palsy Counseling regarding advanced care planning and goals of care E coli bacteremia Heme + stool Pneumonia Prostatitis Secondary hyperparathyroidism Sepsis associated hypotension Anemia Anemia of renal disease Cerebral palsy Counseling regarding advanced care planning and goals of care E coli bacteremia Symptomatic anemia A-V fistula Acute hypercapnic respiratory failure Acute on chronic respiratory failure with hypoxia and hypercapnia Anemia Anemia of renal disease Cerebral palsy Counseling regarding advanced care planning and goals of care Dialysis AV fistula malfunction E coli bacteremia ESRD (end stage renal disease) on dialysis Pneumonia Prostatitis Secondary hyperparathyroidism Sepsis associated hypotension Weakness Additional Source Comments (unrecognized sect ion and content) No Status Records FoundNo Status Records FoundNo Status Records FoundNo Status Records FoundNo Status Records FoundNo Status Records Found INFORMATION SOURCE (unrecogn ized section and content) DATE CREATED AUTHOR 02/23/2018 [facility] DATE CREATED AUTHOR AUTHOR'S ORGANIZ ATION 01/05/2022 [facility] DATE CREATED AUTHOR AUTHOR'S ORGANIZ ATION 2022 [facility] DATE CREATED AUTHOR AUTHOR'S ORGANIZ ATION 06/07/[address] [facility] DATE CREATED AUTHOR AUTHOR'S ORGANIZ ATION 08/31/2023 [facility] EPIC DATE CREATED AUTHOR AUTHOR'S ORGANIZ ATION 09/17/2024 [facility] Reason for Visit (unrecogniz ed section and content) Specialty Diagnoses / Procedures Referred By Osiris monreal Referred To Contact Radiology Diagnoses ESRD (end stage renal disease) on dialysis (HCC) Preop testing Procedures VL UPPER EXTREMITY BILATERAL VEIN MAPPING Justyn Alvarez MD [address] [address] [address] [place] [address] Referral ID Status Reason Start Date Expiration Date V isits Requested Visits Authorized [id number] Pending Review 12/13/2021 12/13/2022 1 1 Specialty Diagnoses / Procedures Referred By Osiris monreal Referred To Contact Diagnoses Malfunction of arteriovenous dialysis fistula, initial encounter (HCC) Malfunction of arteriovenous dialysis fistula, initial encounter ([facility]) [T82.590A] Procedures IL OFFICE/OUTPT VISIT,PROCEDURE ONLY IL INJECT SINUS TRACT FOR DX W XRAY lue fistulagram Justyn Alvarez MD [address] [address] [address] [place] [address] [email or web address] [address] [place] [address] Referral ID Status Reason Start Date Expiration Date Visits Re quested Visits Authorized [id number] 1 1 Specialty Diagnoses / Procedures Referred By Osiris monreal Referred To Contact Diagnoses Malfunction of arteriovenous dialysis fistula, initial encounter (HCC) Malfunction of arteriovenous dialysis fistula, initial encounter (HCC) [T82.590A] Procedures IL INTRO CATH DIALYSIS CIRCUIT DX ANGRPH FLUOR S&I lue fistulagram Justyn Alvarez MD [address] [address] [address] [place] [address] [email or web address] [address] [place] [address] Referral ID Status Reason Start Date Expiration Date Visits Re quested Visits Authorized [id number] 1 1 Specialty Diagnoses / Procedures Referred By Contac t Referred To Contact Diagnoses Malfunction of arteriovenous dialysis fistula, initial encounter (HCC) MALFUNCTIONING FISTULA Procedures CHG ANGIOGRAPHY EXTREMITY UNILATERAL RS&I IL INTRO CATH DIALYSIS CIRCUIT DX ANGRPH FLUOR S&I UPPER EXTREMITY FISTULAGRAM Justyn Alvarez MD [address] [address] [address] [place] [address] [facility] [employer] [address] [place] [address] Referral ID Status Reason Start Date Expiration Date Visits Re quested Visits Authorized [id number] 1 1 Reason Comments Vascular Access Problem Reason Comments Med Refill Specialty Diagnoses / Procedures Referred By Contac t Referred To Contact Diagnoses Malfunction of arteriovenous dialysis fistula, initial encounter (HCC) Malfunction of arteriovenous dialysis fistula, initial encounter (HCC) [T82.590A] Procedures IL INTRO CATH DIALYSIS CIRCUIT DX ANGRPH FLUOR S&I UPPER EXTREMITY FISTULAGRAM Justyn Alvarez MD [address] [place] [address] [facility] [employer] [address] [place] [address] Referral ID Status Reason Start Date Expiration Date Visits Re quested Visits Authorized [id number] 1 1 Care Teams (unrecognized sec tion and content) Team Status: Active Member Role Status Dates Denis Melvin MD Primary Care Provider Active Team Status: Inactive Member Role Status Dates Denis Melvin MD Primary Care Provider Active Dre Cardoza MD Emergency Provider Active Sofia Barber MD Admit Provider Active Melina Garcia MD Other Provider Active Kostas Wade MD Other Provider Active Van Bernardo DO Other Provider Active Ceferino Godinez MD Attending Provider Active Alejandro Escalera MD Other Provider Active [employer] Relationship Specialty Start Date End Date Denis Melvin MD [address] [place] [address] PCP - General Family Medicine 05/13/21 [employer] Relationship Specialty Start Date End Date Denis Melvin MD [address] [place] [address] PCP - General Family Medicine 05/13/21 [employer] Relationship Specialty Start Date End Date Denis Melvin MD [id number] PCP - General Family Medicine 05/13/21 [employer] Relationship Specialty Start Date End Date Denis Melvin MD [id number] PCP - General Family Medicine 05/13/21 [employer] Relationship Specialty Start Date End Date Denis Melvin MD [id number] PCP - General Family Medicine 05/13/21 [employer] Relationship Specialty Start Date End Date Denis Melvin MD [address] [id number] PCP - General Family Medicine 05/13/21 Team Status: Active Member Role Status Carlene Melvin MD Primary Care Provider Active Dre Cardoza MD Emergency Provider Active Sofia Barber MD Admit Provider, Attending Provider Active Melina Garcia MD Other Provider Active Team Status: Active Member Role Status Carlene Melvin MD Primary Care Provider Active Fransico Mendieta PA-C Emergency Provider Active Michael Gonzalez MD Admit Provider, Attending Provi jade Active Team Status: Inactive Member Role Status Carlene Melvin MD Primary Care Provider Active Fransico Mendieta PA-C Emergency Provider Active Michael Gonzalez MD Admit Provider, Attending Provi jade Active Gabby Bedolla MD Other Provider Active Elizabeth Benson MD Other Provider Active Team Status: Active Member Role Status Carlene Melvin MD Primary Care Provider Active Fransico Mendieta PA-C Emergency Provider Active Spencer Dyson MD Admit Provider, Attending Pro vider Active Team Status: Inactive Member Role Status Carlene Melvin MD Primary Care Provider Active Fransico Mendieta PA-C Emergency Provider Active Spencer Dyson MD Admit Provider Active Jessica Macdonald MD Other Provider Active Melina Garcia MD Other Provider Active Aureliano Rangel MD Other Provider Active David Zayas MD Other Provider Active Gabby Bedolla MD Other Provider Active Alondra Rose APRN [facility] Other Provider Active Jami Grimes MD Other Provider Active Juve Blackwell MD Other Provider Active Edna Blanco MD Other Provider Active Jared Horvath , Other Provider Active Kiya Ortega MD Other Provider Active rDe Kowalski MD Other Provider Active Antonio Lopez MD Other Provider Active Broderick Sesay , DO Other Provider Active Rajendra Pierce MD Attending Provider Active Rojas No MD Other Provider Active [employer] Relationship Specialty Start Date End Date Denis Melvin MD [address] [place] [address] PCP - General Family Medicine 05/13/21 Team Status: Inactive Member Role Status Carlene Wade MD Attending Provider Active [employer] Relationship Specialty Start Date End Date Denis Melvin MD PCP - General Family Medicine 06/08/20 [employer] Relationship Specialty Start Date End Date Denis Melvin MD [address] [place] [address] PCP - General Family Medicine 01/31/23 [employer] Relationship Specialty Start Date End Date Denis Melvin MD [address] [place] [address] PCP - General Family Medicine 05/13/21 Ordered Prescriptions (unrec ognized section and content) Prescription Sig Dispensed Refills Start Date End Da te acetaminophen (TYLENOL) 500 MG tablet Take 2 tablets by mouth every 8 hours as needed for Pain 84 tablet 0 01/18/2022 02/01/2022 Scheduled Active and Recently Administ ered Medications (unrecognized section and content) Medication Order 01/16/2022 01/17/2022 01/18/2022 heparin (porcine) injection 1,900 Units (COMPLETED) 1,900 Units, IntraCATHeter, ONCE, 1 dose, On Mon01/18/22 at 1315, Flush tunnel cath ports with 1900 units of heparin, Intra-op 1317 (Given - Provid er: Tami Mcmahan RN) sodium chloride flush 0.9 % injection 5-40 mL 5-40 mL, IntraVENous, EVERY 12 HOURS SCHEDULED (2 times per day), First dose on Mon01/18/22 at 2100, Until Discontinued, For Line Patency: Peripheral IV = 5 mL; Midline or Central Line = 10 mL/lumen. If following IV push medication, administer flush at same rate as the IV push. Flush volume is determined by type of infusion therapy being given. For non-viscous solutions use: Peripheral IV = 5 mL Midline or Central Line = 10 mL/lumen For viscous solutions (i.e. blood components, parenteral nutrition, contrast media, or after obtaining blood sample) use: Peripheral IV = 10 mL Midline or Central Line = 20 mL/lumen, PACU only 2100 (Due) Continuous Medication Order 01/16/2022 01/17/2022 01/18/2022 0.9 % sodium chloride infusion IntraVENous, at 25 mL/hr, CONTINUOUS, Starting on Mon01/18/22 at 0900, Pre-Procedure(Cath) 0902 (New Bag - Prov ider: VICTORIA Mason CRNA)1115 (New Bag - Provider: VICTORIA Mason CRNA) PRN Medication Order 01/16/2022 01/17/2022 01/18/2022 0.9 % sodium chloride infusion IntraVENous, at 5-250 mL/hr, PRN, if patient receiving piggyback infusions and maintenance fluids are not ordered OR KVO fluids to protect IV site / prevent frequent line interruptions/ long duration, Starting on Mon01/18/22 at 1256, For piggyback infusion, administer at same rate as piggyback for a total of 25 mL. Enter 25 mL into dose field and piggyback rate into rate field of order. If piggyback is infusing at a rate less than 100 mL/hr, enter 25 mL into dose field and 100 mL/hr into rate field of order. For KVO fluids, enter rate of 20 mL/hr or less into rate field of order., PACU only fentaNYL (SUBLIMAZE) injection 25 mcg 25 mcg, IntraVENous, EVERY 5 MIN PRN, 2 doses, Starting on Mon01/18/22 at 1256, Until Discontinued, Pain Moderate (4-6), For Phase I. If Phase II oral narcotics have been administered in the last 60 minutes, do not administer IV narcotics unless specifically approved by provider., PACU only gelatin adsorbable (GELFOAM) sponge (CANCELED) PRN, Starting on Mon01/18/22 at 0830, Intra-op 0830 (Given - Provid er: Justyn Alvarez MD - Comment: MEDICATION AND EXPIRATION VERIFED WITH SCRUB AND PLACED ONTO STERILE FIELD.) lidocaine PF 1 % injection (CANCELED) PRN, Starting on Mon01/18/22 at 0830, Until Mon01/18/22 at 1152, Intra-op 0830 (Given - Provid er: Justyn Alvarez MD - Comment: MEDICATION AND EXPIRATION VERIFED WITH SCRUB AND PLACED ONTO STERILE FIELD. 18ML INJECTED.) meperidine (DEMEROL) injection SOLN 12.5 mg 12.5 mg, IntraVENous, EVERY 5 MIN PRN, 2 doses, Starting on Mon01/18/22 at 1256, Until Discontinued, Shivering, Shivering,, May give every 5 minutes to max of 50mg., PACU only ondansetron (ZOFRAN) injection 4 mg 4 mg, IntraVENous, ONCE PRN, 1 dose, Starting on Mon01/18/22 at 1256, Until Mon01/18/22 at 2359, Nausea, PACU only sodium chloride 0.9 % 500 mL with heparin (porcine) 5,000 Units (CANCELED) PRN, Starting on Mon01/18/22 at 0830, Intra-op 0830 (Given - Provid er: Justyn Alvarez MD - Comment: MEDICATION AND EXPIRATION VERIFED WITH SCRUB AND PLACED ONTO STERILE FIELD.) sodium chloride 0.9 % irrigation (COMPLETED) CONTINUOUS PRN, Starting on Mon01/18/22 at 0830, Intra-op 0830 (New Bag - Prov ider: Justyn Alvarez MD - Comment: MEDICATION AND EXPIRATION VERIFED WITH SCRUB AND PLACED ONTO STERILE FIELD.) sodium chloride flush 0.9 % injection 5-40 mL 5-40 mL, IntraVENous, PRN, Starting on Mon01/18/22 at 1256, Until Discontinued, Line Care, After every IV line use, For Line Patency: Peripheral IV = 5 mL; Midline or Central Line = 10 mL/lumen. If following IV push medication, administer flush at same rate as the IV push. Flush volume is determined by type of infusion therapy being given. For non-viscous solutions use: Peripheral IV = 5 mL Midline or Central Line = 10 mL/lumen For viscous solutions (i.e. blood components, parenteral nutrition, contrast media, or after obtaining blood sample) use: Peripheral IV = 10 mL Midline or Central Line = 20 mL/lumen, PACU only thrombin kit (CANCELED) PRN, Starting on Mon01/18/22 at 0830, Intra-op 0830 (Given - Provid er: Justyn Alvarez MD - Comment: MEDICATION AND EXPIRATION VERIFED WITH SCRUB AND PLACED ONTO STERILE FIELD.) No Frequency Medication Order 01/16/2022 01/17/2022 01/18/2022 propofol 1000 MG/100ML injection 1 dose, Starting on Mon01/18/22 at 0820, Until Mon01/18/22 at 2028, Mayito Rawls: cabinet override Do not administer through the same I.V. catheter with blood or plasma. Tubing and any unused portions of propofol vials should be discarded after 12 hours., Mayito Rawls: cabinet override 0830 (Due) PRN Medication Order 08/16/2022 08/17/2022 08/18/2022 iodixanol (VISIPAQUE) 320 MG/ML injection (CANCELED) PRN, Starting on Melissa 08/18/22 at 1019, Until Melissa 08/18/22 at 1116, Intra-op 1019 (Given - Provid er: Justyn Alvarez MD - Comment: MEDICATION AND EXPIRATION VERIFIED WITH SCRUB AND PLACED ON STERILE FIELD) lidocaine PF 1 % injection (CANCELED) PRN, Starting on Melissa 08/18/22 at 1018, Until Melissa 08/18/22 at 1116, Intra-op 1018 (Given - Provid er: Justyn Alvarez MD - Comment: MEDICATION AND EXPIRATION VERIFIED WITH SCRUB AND PLACED ON STERILE FIELD) sodium chloride 0.9 % 1,000 mL with heparin (porcine) 2,000 Units (CANCELED) PRN, Starting on Melissa 08/18/22 at 1018, Intra-op 1018 (Given - Provid er: Justyn Alvarez MD - Comment: MEDICATION AND EXPIRATION VERIFIED WITH SCRUB AND PLACED ON STERILE FIELD) No Frequency Medication Order 08/16/2022 08/17/2022 08/18/2022 albumin human 5 % IV solution 1 dose, Starting on Melissa 08/18/22 at 1553, Until Mon08/19/22 at 0359, Mayito Rawls: cabinet override, Mireya Rawlsnt: cabinet override 1600 (Due) labetalol (NORMODYNE;TRANDATE) 5 MG/ML injection 1 dose, Starting on Melissa 08/18/22 at 1229, Until Mon08/19/22 at 0029, Mayito Rawls: cabinet override, Mayito Rawls: cabinet override 1230 (Due) PRN Medication Order 10/25/2022 10/26/2022 10/27/2022 iodixanol (VISIPAQUE) 320 MG/ML injection (CANCELED) PRN, Starting on Melissa 10/27/22 at 1037, Until Melissa 10/27/22 at 1427, Intra-op 1037 (Given - Provid er: Justyn Alvarez MD - Comment: medication and expiration verified with scrub and given to sterile field.) lidocaine PF 1 % injection (CANCELED) PRN, Starting on Melissa 10/27/22 at 1039, Until Melissa 10/27/22 at 1427, Intra-op 1039 (Given - Provid er: Justyn Alvarez MD - Comment: medication and expiration verified with scrub and given to sterile field.) Scheduled Medication Order 01/31/2023 02/01/2023 02/02/2023 sodium chloride flush 0.9 % injection 5-40 mL 5-40 mL, IntraVENous, EVERY 12 HOURS SCHEDULED (2 times per day), First dose on Melissa 02/02/23 at 2100, Until Discontinued, For Line Patency: Peripheral IV = 5 mL; Midline or Central Line = 10 mL/lumen. If following IV push medication, administer flush at same rate as the IV push. Flush volume is determined by type of infusion therapy being given. For non-viscous solutions use: Peripheral IV = 5 mL Midline or Central Line = 10 mL/lumen For viscous solutions (i.e. blood components, parenteral nutrition, contrast media, or after obtaining blood sample) use: Peripheral IV = 10 mL Midline or Central Line = 20 mL/lumen, Pre-Procedure(Cath) 2100 (Due) PRN Medication Order 01/31/2023 02/01/2023 02/02/2023 0.9 % sodium chloride infusion IntraVENous, at 5-250 mL/hr, PRN, if patient receiving piggyback infusions and maintenance fluids are not ordered OR KVO fluids to protect IV site / prevent frequent line interruptions/ long duration, Starting on Melissa 02/02/23 at 1611, For piggyback infusion, administer at same rate as piggyback for a total of 25 mL. Enter 25 mL into dose field and piggyback rate into rate field of order. If piggyback is infusing at a rate less than 100 mL/hr, enter 25 mL into dose field and 100 mL/hr into rate field of order. For KVO fluids, enter rate of 20 mL/hr or less into rate field of order., Pre-Procedure(Cath) heparin (porcine) injection (CANCELED) PRN, Starting on Melissa 02/02/23 at 1545, Until Melissa 02/02/23 at 1611, Intra-op 1545 (Given - Provid er: Jenni Bolden RN - Comment: MEDICATION GIVEN BY SEDATION RN PER DR. ALVAREZ) iodixanol (VISIPAQUE) 320 MG/ML injection (CANCELED) PRN, Starting on Melissa 02/02/23 at 1515, Until Melissa 02/02/23 at 1611, Intra-op 1515 (Given - Provid er: Justyn Alvarez MD - Comment: medication, date and expiration date verified [facility] and given to sterile field per AB.) lidocaine PF 1 % injection (CANCELED) PRN, Starting on Melissa 02/02/23 at 1515, Until Melissa 02/02/23 at 1611, Intra-op 1515 (Given - Provid er: Justyn Alvarez MD - Comment: medication, dose and expiratin date verified with scrub and given to sterile field by AB.) sod chloride IRR soln 0.9 % 1,000 mL with heparin (porcine) 2,000 Units (CANCELED) PRN, Starting on Melissa 02/02/23 at 1515, Intra-op 1515 (Given - Provid er: Justyn Alvarez MD - Comment: medication, dose and expiration date veified with scrub and given tot sterile field per AB.) sodium chloride flush 0.9 % injection 5-40 mL 5-40 mL, IntraVENous, PRN, Starting on Melissa 02/02/23 at 1611, Until Discontinued, Line Care, After every IV line use, For Line Patency: Peripheral IV = 5 mL; Midline or Central Line = 10 mL/lumen. If following IV push medication, administer flush at same rate as the IV push. Flush volume is determined by type of infusion therapy being given. For non-viscous solutions use: Peripheral IV = 5 mL Midline or Central Line = 10 mL/lumen For viscous solutions (i.e. blood components, parenteral nutrition, contrast media, or after obtaining blood sample) use: Peripheral IV = 10 mL Midline or Central Line = 20 mL/lumen, Pre-Procedure(Cath) No Frequency Medication Order 01/31/2023 02/01/2023 02/02/2023 iodixanol (VISIPAQUE) 320 MG/ML injection 1 dose, Starting on Mon02/02/23 at 1435, Until Mon02/03/23 at 0244, Tammerine, Jenni: cabinet override, Tammerine, Jenni: cabinet override 1445 (Due) lidocaine 1 % injection 1 dose, Starting on Mon02/02/23 at 1436, Until Mon02/03/23 at 0244, Tammerine, Jenni: cabinet override, Tammerine, Jenni: cabinet override 1445 (Due) Scheduled Medication Order 05/25/2023 05/26/2023 05/27/2023 bumetanide (BUMEX) tablet 2 mg 2 mg, Oral, DAILY, First dose on 05/27/23 at 0900, Until Discontinued 0800 (Not Given - Provider: Irena Berg RN - Reason: Pt NPO) busPIRone (BUSPAR) tablet 10 mg 10 mg, Oral, Nightly, First dose on Mon05/26/23 at 2200, Until Discontinued 2225 (Given - Provider: Lupis Delgado RN) 2100 (Due) clonazePAM (KLONOPIN) tablet 0.5 mg 0.5 mg, Oral, 2 TIMES DAILY, First dose on 05/27/23 at 0900, Until Discontinued 0900 (Not Given - Provider: Irena Berg RN - Reason: Pt NPO)2100 (Due) dextromethorphan-quiNIDine (NUEDEXTA) 20-10 MG per capsule 1 capsule (Patient Supplied) 1 capsule, Oral, 2 TIMES DAILY, First dose on 05/27/23 at 0900, Until Discontinued, Please use home med 0800 (Not Given - Provider: Irena Berg RN - Reason: Medication not available)2100 (Due) dilTIAZem (CARDIZEM) tablet 30 mg 30 mg, Oral, DAILY, First dose on 05/27/23 at 0900, Until Discontinued 08 (Not Given - Provider: Irena Berg RN - Reason: Pt NPO) folbee plus tablet 1 tablet 1 tablet, Oral, DAILY, First dose on 05/27/23 at 0900, Until Discontinued 09 (Due) heparin (porcine) injection 5,000 Units (CANCELED) 5,000 Units, SubCUTAneous, EVERY 8 HOURS SCHEDULED (3 times per day), First dose on Mon05/26/23 at 2200, Until Discontinued 2225 (Given - Provider: Lupis Delgado RN) heparin (porcine) injection 5,000 Units 5,000 Units, SubCUTAneous, EVERY 8 HOURS SCHEDULED (3 times per day), First dose on Mon05/26/23 at 2330, Until Discontinued 2358 (Not Given - Provider: Iman Arias RN - Reason: Other) 0539 (Given - Provider: Iman Arias RN)1442 (Not Given - Provider: Irena Berg RN - Reason: Transfer to a Procedural area)2200 (Due) ipratropium (ATROVENT) 0.02 % nebulizer solution 0.5 mg 0.5 mg (500 mcg), Nebulization, 4 TIMES DAILY RESP, First dose on Mon05/27/23 at 0800, Until Discontinued, Initiate RT Bronchodilator Protocol: Yes - Inpatient Protocol 0936 (Not Given - Provider: Eduin Dempsey RCP - Reason: Patient not available)1624 (Not Given - Provider: Eduin Dempsey RCP - Reason: Patient not available)1800 (Not Given - Provider: Eduin Dempsey RCP - Reason: Patient not available)2000 (Due) ipratropium 0.5 mg-albuterol 2.5 mg (DUONEB) nebulizer solution 1 Dose (COMPLETED)(Linked Group 1) 1 Dose, Inhalation, ONCE, 1 dose, On Mon05/26/23 at 1600, Initiate RT Bronchodilator Protocol: Yes - ED protocol 1639 (See Alternative - Provider: Ramos Murphy RCP)1640 (Given - Provider: Ramos Murphy RCP) levalbuterol (XOPENEX) nebulizer solution 1.25 mg 1.25 mg, Nebulization, 3 TIMES DAILY, First dose on Mon05/26/23 at 2045, Until Discontinued 2034 (Given - Provider: Armen Tobias RCP) 0541 (Given - Provider: Marlene Anaya RCP)1624 (Not Given - Provider: Eduin Dempsey RCP - Reason: Patient not available)1800 (Not Given - Provider: Eduin Dempsey RCP - Reason: Patient/family refused) magnesium oxide (MAG-OX) tablet 400 mg 400 mg, Oral, 2 TIMES DAILY, First dose on Mon05/27/23 at 0900, Until Discontinued 899 (Not Given - Provider: Irena Berg RN - Reason: Pt NPO)2100 (Due) metoprolol tartrate (LOPRESSOR) tablet 25 mg 25 mg, Oral, 2 TIMES DAILY, First dose on Mon05/26/23 at 2200, Until Discontinued 2224 (Given - Provider: Lupis Delgado RN) 0900 (Not Given - Provider: Irena Berg RN - Reason: Pt NPO)2100 (Due) pantoprazole (PROTONIX) tablet 40 mg 40 mg, Oral, DAILY BEFORE BREAKFAST, First dose on Mon05/27/23 at 0700, Until Discontinued, Do not crush or break. Substituted for Omeprazole (PRILOSEC). 0800 (Not Given - Provider: Irena Berg RN - Reason: Pt NPO) sildenafil (REVATIO) tablet 20 mg 20 mg, Oral, 3 TIMES DAILY, First dose on Mon05/27/23 at 0900, Until Discontinued 0800 (Not Given - Provider: Irena Berg RN - Reason: Pt NPO)1444 (Not Given - Provider: Irena Berg RN - Reason: Transfer to a Procedural area)2100 (Due) sodium chloride flush 0.9 % injection 5-40 mL 5-40 mL, IntraVENous, EVERY 12 HOURS SCHEDULED (2 times per day), First dose on Mon05/26/23 at 2200, Until Discontinued, For Line Patency: Peripheral IV = 5 mL; Midline or Central Line = 10 mL/lumen. If following IV push medication, administer flush at same rate as the IV push. Flush volume is determined by type of infusion therapy being given. For non-viscous solutions use: Peripheral IV = 5 mL Midline or Central Line = 10 mL/lumen For viscous solutions (i.e. blood components, parenteral nutrition, contrast media, or after obtaining blood sample) use: Peripheral IV = 10 mL Midline or Central Line = 20 mL/lumen 2358 (Given - Provider: Iman Arias RN) 0800 (Not Given - Provider: Irena Berg RN - Reason: Contraindicated)2100 (Due) sodium chloride flush 0.9 % injection 5-40 mL 5-40 mL, IntraVENous, EVERY 12 HOURS SCHEDULED (2 times per day), First dose on Mon05/26/23 at 2330, Until Discontinued, For Line Patency: Peripheral IV = 5 mL; Midline or Central Line = 10 mL/lumen. If following IV push medication, administer flush at same rate as the IV push. Flush volume is determined by type of infusion therapy being given. For non-viscous solutions use: Peripheral IV = 5 mL Midline or Central Line = 10 mL/lumen For viscous solutions (i.e. blood components, parenteral nutrition, contrast media, or after obtaining blood sample) use: Peripheral IV = 10 mL Midline or Central Line = 20 mL/lumen 2359 (Not Given - Provider: Iman Arias RN - Reason: Other) 0800 (Given - Provider: Irena Berg RN)2100 (Due) sodium chloride flush 0.9 % injection 5-40 mL 5-40 mL, IntraVENous, EVERY 12 HOURS SCHEDULED (2 times per day), First dose on Mon05/27/23 at 2100, Until Discontinued, For Line Patency: Peripheral IV = 5 mL; Midline or Central Line = 10 mL/lumen. If following IV push medication, administer flush at same rate as the IV push. Flush volume is determined by type of infusion therapy being given. For non-viscous solutions use: Peripheral IV = 5 mL Midline or Central Line = 10 mL/lumen For viscous solutions (i.e. blood components, parenteral nutrition, contrast media, or after obtaining blood sample) use: Peripheral IV = 10 mL Midline or Central Line = 20 mL/lumen, PACU only 2100 (Due) PRN Medication Order 05/25/2023 05/26/2023 05/27/2023 0.9 % sodium chloride infusion IntraVENous, at 5-250 mL/hr, PRN, if patient receiving piggyback infusions and maintenance fluids are not ordered OR KVO fluids to protect IV site / prevent frequent line interruptions/ long duration, Starting on Mon05/26/23 at 2148, For piggyback infusion, administer at same rate as piggyback for a total of 25 mL. Enter 25 mL into dose field and piggyback rate into rate field of order. If piggyback is infusing at a rate less than 100 mL/hr, enter 25 mL into dose field and 100 mL/hr into rate field of order. For KVO fluids, enter rate of 20 mL/hr or less into rate field of order. 0.9 % sodium chloride infusion IntraVENous, at 5-250 mL/hr, PRN, if patient receiving piggyback infusions and maintenance fluids are not ordered OR KVO fluids to protect IV site / prevent frequent line interruptions/ long duration, Starting on Mon05/26/23 at 2305, For piggyback infusion, administer at same rate as piggyback for a total of 25 mL. Enter 25 mL into dose field and piggyback rate into rate field of order. If piggyback is infusing at a rate less than 100 mL/hr, enter 25 mL into dose field and 100 mL/hr into rate field of order. For KVO fluids, enter rate of 20 mL/hr or less into rate field of order. 0.9 % sodium chloride infusion IntraVENous, at 5-250 mL/hr, PRN, if patient receiving piggyback infusions and maintenance fluids are not ordered OR KVO fluids to protect IV site / prevent frequent line interruptions/ long duration, Starting on 05/27/23 at 1142, For piggyback infusion, administer at same rate as piggyback for a total of 25 mL. Enter 25 mL into dose field and piggyback rate into rate field of order. If piggyback is infusing at a rate less than 100 mL/hr, enter 25 mL into dose field and 100 mL/hr into rate field of order. For KVO fluids, enter rate of 20 mL/hr or less into rate field of order., PACU only acetaminophen (TYLENOL) suppository 650 mg(Linked Group 2) 650 mg, Rectal, EVERY 6 HOURS PRN, Starting on Mon05/26/23 at 2305, Until Discontinued, Pain Mild (1-3), Fever, For temp greater than 100.4 F (38 C), Administer if oral route cannot be used. acetaminophen (TYLENOL) tablet 650 mg(Linked Group 2) 650 mg, Oral, EVERY 6 HOURS PRN, Starting on Mon05/26/23 at 2305, Until Discontinued, Pain Mild (1-3), Fever, For temp greater than 100.4 F (38 C), Maximum dose of acetaminophen is 4000 mg from all sources in 24 hours. albuterol (PROVENTIL) (2.5 MG/3ML) 0.083% nebulizer solution 15 mg(Linked Group 3) 15 mg, Nebulization, EVERY 1 HOUR PRN, 2 doses, Starting on Mon05/26/23 at 1551, Until Discontinued, Wheezing, Severe Shortness of Breath, Initiate RT Bronchodilator Protocol: Yes - ED protocol fentaNYL (SUBLIMAZE) injection 25 mcg 25 mcg, IntraVENous, EVERY 5 MIN PRN, 2 doses, Starting on 05/27/23 at 1142, Until Discontinued, Pain Moderate (4-6), For Phase I. If Phase II oral narcotics have been administered in the last 60 minutes, do not administer IV narcotics unless specifically approved by provider., PACU only fentaNYL (SUBLIMAZE) injection 50 mcg 50 mcg, IntraVENous, EVERY 5 MIN PRN, 2 doses, Starting on 05/27/23 at 1142, Until Discontinued, Pain Severe (7-10), For Phase I. If Phase II oral narcotics have been administered in the last 60 minutes, do not administer IV narcotics unless specifically approved by provider., PACU only gelatin adsorbable (GELFOAM) sponge (CANCELED) PRN, Starting on 05/27/23 at 0800, Intra-op 0800 (Given - Provid er: Cindy Love MD - Comment: 1 100SQCM GELFOAM VERIFIED WITH SCRUB AND PLACED ON STERILE FIELD) heparin (porcine) injection 2,300 Units 2,300 Units, IntraCATHeter, PRN, Starting on 05/27/23 at 1627, Until Discontinued, Line Care, line care, For installation into each catheter limb Venous 2.3 units To be given in Dialysis 1650 (Given - Provid er: Oxana Wiseman) heparin (porcine) injection 2,300 Units 2,300 Units, IntraCATHeter, PRN, Starting on 05/27/23 at 1628, Until Discontinued, Line Care, line care, For installation into each catheter limb Arterial 2.3 units To be given in Dialysis 1649 (Given - Provid er: Oxana Wiseman) heparin (porcine) injection (CANCELED) PRN, Starting on 05/27/23 at 1117, Until 05/27/23 at 1138, Intra-op 1117 (Given - Provid er: Cindy Love MD - Comment: 5000 UNITS HEPARIN VERIFIED WITH SCRUB AND PLACED ON STERILE FIELD FOR TUNNEL CATH INJECTION) heparin 2 units/mL solution in 0.9% sodium chloride (COMPLETED) CONTINUOUS PRN, Starting on 05/27/23 at 0800, Until Discontinued, Intra-op 0800 (New Bag - Provider: Cindy Love MD - Comment: 2000 UNITS HEPARIN/1000 ML 0.9% NS VERIFIED WITH SCRUB AND PLACED ON STERILE FIELD) hydrALAZINE (APRESOLINE) injection 10 mg 10 mg, IntraVENous, EVERY 15 MIN PRN, 2 doses, Starting on 05/27/23 at 1142, Until Discontinued, High Blood Pressure, for SBP greater than 180 mmHg for 2 consecutive measurements taken from different sites, Inform provider if SBP is still greater than 180 mmHg 10 minutes after second antihypertensive dose is administered., PACU only iodixanol (VISIPAQUE) 320 MG/ML injection (CANCELED) PRN, Starting on 05/27/23 at 0800, Until 05/27/23 at 1138, Intra-op 0800 (Given - Provid er: Cindy Love MD - Comment: 50 ML VISIPAQUE VERIFIED WITH SCRUB AND PLACED ON STERILE FIELD; 0 ML VISIPAQUE ADMINISTERED TO PT) ipratropium (ATROVENT) 0.02 % nebulizer solution 0.5 mg(Linked Group 3) 0.5 mg, Nebulization, EVERY 1 HOUR PRN, 2 doses, Starting on Mon05/26/23 at 1551, Until Discontinued, Wheezing, Severe Shortness of Breath, Initiate RT Bronchodilator Protocol: Yes - ED protocol 2034 (Given - Provider: Armen Tobias RCP) 99 (Held - Provider: Armen Tobias RCP - Reason: Other) levalbuterol (XOPENEX) nebulizer solution 1.25 mg 1.25 mg (1 ampule), Nebulization, EVERY 6 HOURS PRN, Starting on 05/26/23 at 2148, Until Discontinued, Wheezing lidocaine 1 % injection (CANCELED) PRN, Starting on 05/27/23 at 1050, Until 05/27/23 at 1138, Intra-op 1050 (Given - Provid er: Cindy Love MD - Comment: 40 ML 1% LIDOCAINE VERIFIED WITH SCRUB AND PLACED ON STERILE FIELD; 30 ML LIDOCAINE ADMINISTERED TO PT) ondansetron (ZOFRAN) injection 4 mg(Linked Group 4) 4 mg, IntraVENous, EVERY 6 HOURS PRN, Starting on Mon05/26/23 at 2305, Until Discontinued, Nausea, Vomiting, Administer if oral route cannot be used. ondansetron (ZOFRAN) injection 4 mg 4 mg, IntraVENous, ONCE PRN, 1 dose, Starting on 05/27/23 at 1142, Until 05/28/23 at 1142, Nausea, Initial antiemetic therapy., PACU only ondansetron (ZOFRAN-ODT) disintegrating tablet 4 mg(Linked Group 4) 4 mg, Oral, EVERY 8 HOURS PRN, Starting on Mon05/26/23 at 2305, Until Discontinued, Nausea, Vomiting polyethylene glycol (GLYCOLAX) packet 17 g 17 g, Oral, DAILY PRN, Starting on Mon05/26/23 at 2305, Until Discontinued, Constipation, First line therapy for constipation sodium chloride flush 0.9 % injection 10 mL 10 mL, IntraVENous, PRN, Starting on Mon05/26/23 at 2305, Until Discontinued, Line Care, After every IV line use sodium chloride flush 0.9 % injection 5-40 mL 5-40 mL, IntraVENous, PRN, Starting on Mon05/26/23 at 2148, Until Discontinued, Line Care, After every IV line use, For Line Patency: Peripheral IV = 5 mL; Midline or Central Line = 10 mL/lumen. If following IV push medication, administer flush at same rate as the IV push. Flush volume is determined by type of infusion therapy being given. For non-viscous solutions use: Peripheral IV = 5 mL Midline or Central Line = 10 mL/lumen For viscous solutions (i.e. blood components, parenteral nutrition, contrast media, or after obtaining blood sample) use: Peripheral IV = 10 mL Midline or Central Line = 20 mL/lumen sodium chloride flush 0.9 % injection 5-40 mL 5-40 mL, IntraVENous, PRN, Starting on 05/27/23 at 1142, Until Discontinued, Line Care, After every IV line use, For Line Patency: Peripheral IV = 5 mL; Midline or Central Line = 10 mL/lumen. If following IV push medication, administer flush at same rate as the IV push. Flush volume is determined by type of infusion therapy being given. For non-viscous solutions use: Peripheral IV = 5 mL Midline or Central Line = 10 mL/lumen For viscous solutions (i.e. blood components, parenteral nutrition, contrast media, or after obtaining blood sample) use: Peripheral IV = 10 mL Midline or Central Line = 20 mL/lumen, PACU only thrombin 5,000 unit syringe spray kit (CANCELED) PRN, Starting on 05/27/23 at 0800, Intra-op 0800 (Given - Provid er: Cindy Stalin Akbani, MD - Comment: 97762 UNITS THROMBIN VERIFIED WITH SCRUB AND PLACED ON STERILE FIELD) No Frequency Medication Order 05/25/2023 05/26/2023 05/27/2023 gelatin adsorbable (GELFOAM) 100 sponge Starting on 05/27/23 at 0745, For 1 dose, Andria Mckeon: cabinet override 0800 (Due) iodixanol (VISIPAQUE) 320 MG/ML injection 1 dose, Starting on 05/27/23 at 0808, Until 05/27/23 at 2014, Andria Mckeon: cabinet override, Andria Mckeon: cabinet override 0815 (Due) lidocaine 1 % injection 1 dose, Starting on 05/27/23 at 0745, Until 05/27/23 at 1959, Andria Mckeon: cabinet override, Andria Mckeon: cabinet override 0800 (Due) thrombin 5000 units kit Starting on 05/27/23 at 0745, For 1 dose, Andria Mckeon: cabinet override 0800 (Due) Linked Groups Order Group 1: ipratropium 0.5 mg-albuterol 2.5 mg (DUONEB) nebulizer solution 1 Dose (COMPLETED)Jump to med 1 Dose, Inhalation, ONCE, 1 dose, On Mon05/26/23 at 1600
Initiate RT Bronchodilator Protocol: Yes - ED protocol Or albuterol (PROVENTIL) (2.5 MG/3ML) 0.083% nebulizer solution 2.5 mg (CANCELED) 2.5 mg, Nebulization, ONCE, 1 dose, On Mon05/26/23 at 1600
Initiate RT Bronchodilator Protocol: Yes - ED protocol Group 2: acetaminophen (TYLENOL) tablet 650 mgJump to med 650 mg, Oral, EVERY 6 HOURS PRN, Starting on Mon05/26/23 at 2305, Until Discontinued, Pain Mild (1-3), Fever, For temp greater than 100.4 F (38 C)
Maximum dose of acetaminophen is 4000 mg from all sources in 24 hours.
Or acetaminophen (TYLENOL) suppository 650 mgJump to med 650 mg, Rectal, EVERY 6 HOURS PRN, Starting on Mon05/26/23 at 2305, Until Discontinued, Pain Mild (1-3), Fever, For temp greater than 100.4 F (38 C)
Administer if oral route cannot be used.
Group 3: albuterol (PROVENTIL) (2.5 MG/3ML) 0.083% nebulizer solution 15 mgJump to med 15 mg, Nebulization, EVERY 1 HOUR PRN, 2 doses, Starting on Mon05/26/23 at 1551, Until Discontinued, Wheezing, Severe Shortness of Breath
Initiate RT Bronchodilator Protocol: Yes - ED protocol And ipratropium (ATROVENT) 0.02 % nebulizer solution 0.5 mgJump to med 0.5 mg, Nebulization, EVERY 1 HOUR PRN, 2 doses, Starting on Mon05/26/23 at 1551, Until Discontinued, Wheezing, Severe Shortness of Breath
Initiate RT Bronchodilator Protocol: Yes - ED protocol Group 4: ondansetron (ZOFRAN-ODT) disintegrating tablet 4 mgJump to med 4 mg, Oral, EVERY 8 HOURS PRN, Starting on Mon05/26/23 at 2305, Until Discontinued, Nausea, Vomiting Or ondansetron (ZOFRAN) injection 4 mgJump to med 4 mg, IntraVENous, EVERY 6 HOURS PRN, Starting on Mon05/26/23 at 2305, Until Discontinued, Nausea, Vomiting
Administer if oral route cannot be used.
Continuous Medication Order 09/10/2024 09/11/2024 09/12/2024 0.9 % sodium chloride infusion IntraVENous, at 25 mL/hr, CONTINUOUS, Starting on Melissa 09/12/24 at 1430, Pre-Procedure(Cath) 1527 (New Bag - Prov ider: VICTORIA Doss CRNA)1633 (Anesthesia Volume Adjustment - Provider: VICTORIA Doss CRNA) PRN Medication Order 09/10/2024 09/11/2024 09/12/2024 iodixanol (VISIPAQUE) 320 MG/ML injection (CANCELED) PRN, Starting on Melissa 09/12/24 at 1547, Until Melissa 09/12/24 at 1629, Intra-op 1547 (Given - Provid er: Justyn Alvarez MD - Comment: med/exp date verified w/scrub and dispensed to sterile field.) lidocaine PF 1 % injection (CANCELED) PRN, Starting on Melissa 09/12/24 at 1546, Until Melissa 09/12/24 at 1629, Intra-op 1546 (Given - Provid er: Justyn Alvarez MD - Comment: med/exp date verified w/scrub and dispensed to sterile field.) sod chloride IRR soln 0.9 % 500 mL with heparin (porcine) 1,000 Units (CANCELED) PRN, Starting on Melissa 09/12/24 at 1546, Intra-op 1546 (Given - Provid er: Justyn Alvarez MD - Comment: med/exp date verified w/scrub and dipensed to sterile field.) No Frequency Medication Order 09/10/2024 09/11/2024 09/12/2024 iodixanol (VISIPAQUE) 320 MG/ML injection 1 dose, Starting on Mon09/12/24 at 1504, Until Mon09/13/24 at 0314, Guillermo Christensen: cabinet override, Guillermo Christensen: cabinet override 1515 (Due) FOR RECORDS PERTAINING TO PATIENTS WHO ARE OR HAVE BEEN ENROLLED IN A CHEMICAL DEPENDENCY/SUBSTANCEABUSE PROGRAM, SOME INFORMATION MAY BE OMITTED. This clinical summary was aggregated from multiple sources. Caution should be exercised in using it in the provision of clinical care. This summary normalizes information from multiple sources, and as a consequence, information in this document may materially change the coding, format and clinical context of patient data. In addition, data may be omitted in some cases. CLINICAL DECISIONS SHOULD BE BASED ON THE PRIMARY CLINICAL RECORDS. [employer] provides no warranty or guarantee of the accuracy or completeness of information in this document.
--- NOTE | 2024-10-18 18:15 | XR_ITS ---
The [address] [address] Patient Name: RIGO REDDY MRN: [id number] date: 1985 Sex: M Assigned Patient Location: ED.MAIN Current Patient Location: Accession/Order Number: [id number] Exam Date: 10/18/2024 18:44 Report Date: 10/18/2024 21:23 At the request of: EVER MEDEIROS Procedure: XR hip BI w PEL 1V EXAM: XR hip BI w PEL 1V HISTORY: fall COMPARISON: None. TECHNIQUE: 5 views of bilateral hips FINDINGS: No acute fracture seen. Joint alignment is normal. Joint spaces are preserved. Soft tissues appear unremarkable. XR/XR hip BI w PEL 1V IMPRESSION: No acute fracture amount. Electronically authenticated by: JOJO MANJARREZ Date: 10/18/2024 21:23
--- NOTE | 2024-10-18 18:15 | XR_ITS ---
The [address] [address] Patient Name: RIGO REDDY MRN: [id number] date: 1985 Sex: M Assigned Patient Location: ED.MAIN Current Patient Location: ER Accession/Order Number: [id number] Exam Date: 10/18/2024 18:44 Report Date: 10/18/2024 21:41 At the request of: EVER MEDEIROS Procedure: XR hand LT min 3V EXAM: XR hand LT min 3V HISTORY: fall COMPARISON: None. TECHNIQUE: 3 views of the left hand FINDINGS: Acute mildly impacted and mildly displaced fractures of the base of the first, second, third, fourth and fifth metacarpals is seen. Joint alignment is normal. Joint spaces are preserved. Soft tissue swelling is seen. XR/XR hand LT min 3V IMPRESSION: Acute mildly impacted and mildly displaced fractures of the base of the first, second, third, fourth and fifth metacarpals Electronically authenticated by: JOJO MANJARREZ Date: 10/18/2024 21:41
--- NOTE | 2024-10-18 18:15 | CT_ITS ---
The [address] [address] Patient Name: RIGO REDDY MRN: [facility]:[id number] date: 1985 Sex: M Assigned Patient Location: ED.MAIN Current Patient Location: ED.MAIN Accession/Order Number: [id number] Exam Date: 10/18/2024 18:44 Report Date: 10/18/2024 20:35 At the request of: EVER MEEDIROS Procedure: CT head/brain wo con EXAMINATION: CT head/brain wo con HISTORY: fall COMPARISON: None. TECHNIQUE: CT head without intravenous contrast. Dose reduction techniques were achieved by using: automated exposure control and/or adjustment of mA and /or kV according to patient size and/or use of iterative reconstruction technique. FINDINGS: There is moderate prominence of the ventricles and sulci. There is no evidence for acute intracranial hemorrhage. There is mild hypoattenuation in the supratentorial white matter, most compatible with chronic microvascular ischemia. There is no mass effect or midline shift. There are no abnormal extraaxial fluid collections. CT/CT head/brain wo con IMPRESSION: Negative for acute intracranial hemorrhage or convincing acute intracranial process. There is moderate ventriculomegaly, which could be from central cerebral atrophy without overt hydrocephalus. Electronically authenticated by: RIGO RUFF Date: 10/18/2024 20:35
--- NOTE | 2024-10-18 19:13 | CT_ITS ---
The [address] [address] Patient Name: RIGO REDDY MRN: [id number] date: 1985 Sex: M Assigned Patient Location: ER Current Patient Location: ER Accession/Order Number: [id number] Exam Date: 10/18/2024 19:15 Report Date: 10/18/2024 22:08 At the request of: EVER MEDEIROS Procedure: CT chest wo con CT CHEST WITHOUT CONTRAST. HISTORY: fall COMPARISON: CT chest dated 09/26/2024 TECHNIQUE: Unenhanced chest CT including axial, sagittal and coronal reformatted images. FINDINGS: LUNGS: Redemonstrated severe emphysema. No airspace disease. There are no pleural effusions. No pneumothorax. AORTA: No aortic aneurysm. LYMPH NODES: No enlarged mediastinal lymph nodes by CT criteria. HEART: Normal size. No pericardial effusion. Coronary artery calcification. UPPER ABDOMEN: Cholelithiasis. MUSCULOSKELETAL: Axial skeleton shows no acute abnormality. CT/CT chest wo con IMPRESSION: No acute traumatic injury in the chest. No evidence of acute rib fracture. No airspace disease. Electronically authenticated by: KARISSA ALANIS Date: 10/18/2024 22:08
--- NOTE | 2024-10-18 19:20 | ED_ITS ---
Documented by User: Bettye Bryan 10/18/24 20:45 HPI HPI - General Adult General Chief complaint: Fall Stated complaint: fell, upper and lower extremity injury Time Seen by Provider: 10/18/24 17:57 Source: patient Mode of arrival: walk-in History of Present Illness HPI narrative: 39-year-old male presents here with a chief complaint of left hand pain and fall. Patient is a 39-year-old that lives with mom who she states she has been has a history of blindness and is averbal. He has a history of CP. Mom states since the fall that she did witness . Mother states he fell forward when his oxygen tubing got caught on the armchair of his chair that he was sitting and he fell forward slightly landing on his hand and face. He did have a nosebleed right after the injury occurred. He now has left hand pain and swelling. She was concerned because he was not ambulating as he normally would and seem to be in pain. Patient does wince in pain when I touch his left hand with bruising and ecchymosis noted. No bruising or ecchymosis noted to the left chest wall but he does have some wincing when I touch the chest wall. When I straighten out his leg he does wince as well. He has no obvious deformities to his lower extremities bruising or leg shortening. Related Data Home Medications ?Medication ?Instructions ?Recorded ?Confirmed apixaban 2.5 mg tablet (Eliquis) 2.5 mg PO Q12H 10/18/24 10/18/24 bumetanide 2 mg tablet 2 mg PO DAILY 10/18/24 10/18/24 calcium acetate(phosphat bind) 667 667 mg PO Q8H 10/18/24 10/18/24 mg capsule clonazepam 0.5 mg tablet 0.5 mg PO Q8H 10/18/24 10/18/24 dextromethorphan 20 mg-quinidine 1 cap PO Q12H 10/18/24 10/18/24 10 mg capsule (Nuedexta) diltiazem HCl 30 mg tablet 30 mg PO Q8H 10/18/24 10/18/24 ipratropium bromide 0.02 % 2.5 ml continuous nebulization Q8H 10/18/24 10/18/24 solution for inhalation levalbuterol HCl 1.25 mg/3 mL 1.25 mg inhalation Q8H 10/18/24 10/18/24 solution for nebulization metoprolol tartrate 25 mg tablet 25 mg PO Q12H 10/18/24 10/18/24 olanzapine 7.5 mg tablet 7.5 mg PO DAILY 10/18/24 10/18/24 omeprazole 20 mg capsule,delayed 20 mg PO Q12H 10/18/24 10/18/24 release sildenafil (pulm.hypertension) 20 20 mg PO Q8H 10/18/24 10/18/24 mg tablet Allergies Allergy/AdvReac Type Severity Reaction Status Date / Time ciprofloxacin (From Cipro) AdvReac Severe Hives Verified 10/19/24 15:55 latex AdvReac Severe Hives Verified 10/19/24 15:55 Opioid HPI Opioid Management Most Recent Opioid Data: Last Pain Scale 8 10/18/24 19:26 10/18/24 Review of Systems ROS Narrative All Systems are negative except as noted/marked.All systems reviewed and otherwise negative [facility] Medical History (Updated 10/19/24 @ 16:29 by RHIANNA Cleary) Premature of male Prematurity, weight 500-749 grams, with less than 24 completed weeks of gestation ?P07.02 - Extremely low weight , 500-749 grams (ICD-10) Asthma ?J45.909 - Unspecified asthma, uncomplicated (ICD-10) Hypertension ?I10 - Essential (primary) hypertension (ICD-10) Pulmonary hypertension ?I27.20 - Pulmonary hypertension, unspecified (ICD-10) Cerebral palsy ?G80.9 - Cerebral palsy, unspecified (ICD-10) Exam Narrative Exam Narrative: Nurses note and vital signs reviewed and patient is not hypoxic. General: The patient appears well and in no apparent distress. Patient is resting comfortably on cart. Skin: Warm, dry, no pallor noted. There is no rash noted. Head: Normocephalic, atraumatic Eye: Chronic cataracts film over left eye Ears, Nose, Mouth, and Throat: oral mucosa is moist. Nares patent. Mouth without vesicles. Ear canals patent. Tm's without Erythema Cardiovascular: Regular Rate and Rhythm Respiratory: Patient is in no distress, no accessory muscle use, lungs are clear to auscultation, no wheezing, rales or rhonchi Back: non-tender, no CVA tenderness bilaterally to percussion. GI: Normal bowel sounds, no tenderness to palpation, no masses appreciated. No rebound, guarding, or rigidity noted. Musculoskeletal: Right hand swelling bruising ecchymosis to the 1st through 4th digits, neurovascularly intact good capillary refill distally, no leg shortening noted bilateral lower extremities bruising or swelling the patient has no eviden ce of calf tenderness, no pitting edema, symmetrical pulses noted bilaterally Neurological: Chronically aphasic Psychiatric: Cooperative Constitutional Vital Signs, click to edit/add: Last Vital Signs Temp 99.3 F 10/18/24 18:01 Pulse 97 H 10/18/24 18:01 Resp 16 10/18/24 20:58 BP 129/97 H 10/18/24 18:01 Pulse Ox 97 10/18/24 18:01 O2 Del Method Room Air 10/18/24 18:01 Course Vital Signs Vital signs: Vital Signs Temperature 99.3 F 10/18/24 18:01 Pulse Rate 97 H 10/18/24 18:01 Respiratory Rate 18 10/18/24 18:01 Blood Pressure 129/97 H 10/18/24 18:01 Pulse Oximetry 97 10/18/24 18:01 Oxygen Delivery Method Room Air 10/18/24 18:01 Temperature 99.3 F 10/18/24 18:01 Pulse Rate 97 H 10/18/24 18:01 Respiratory Rate 16 10/18/24 20:58 Blood Pressure 129/97 H 10/18/24 18:01 Pulse Oximetry 97 10/18/24 18:01 Oxygen Delivery Method Room Air 10/18/24 18:01 Medical Decision Making [facility] Narrative Medical decision making narrative: 39-year-old male presents here with a chief complaint of left hand pain and fall. Patient is a 39-year-old that lives with mom who she states she has been has a history of blindness and is averbal. He has a history of CP. Mom states since the fall that she did witness . Mother states he fell forward when his oxygen tubing got caught on the armchair of his chair that he was sitting and he fell forward slightly landing on his hand and face. He did have a nosebleed right after the injury occurred. He now has left hand pain and swelling. She was concerned because he was not ambulating as he normally would and seem to be in pain. Patient does wince in pain when I touch his left hand with bruising and ecchymosis noted. No bruising or ecchymosis noted to the left chest wall but he does have some wincing when I touch the chest wall. When I straighten out his leg he does wince as well. He has no obvious deformities to his lower extremities bruising or leg shortening. patient has fractures noted to the left 1st through 4th metacarpals to the left hand. Volar splint placed by myself. Extremities neurovascular intact before and after application. Sling was also applied. Patient was medicated here with 1 Martin. Her pain is controlled. CT of the head is negative. Patient's family members are comfortable taking patient home patient looks well at this time. They are going to follow-up with a orthopedic physician in [facility] as he has dialysis on Wednesdays and Fridays in [place] and is easier for them to follow-up. Differential Diagnosis Differential Diagnosis: hand fracture, fall, head injury epistaxis Medical Records Medical records reviewed: Yes I reviewed the patient's medical records Imaging Data CT scan - chest: Radiologist's impression: ITS Impressions Hand X-Ray 10/18/24 18:15 IMPRESSION: Acute mildly impacted and mildly displaced fractures of the base of the first, second, third, fourth and fifth metacarpals Electronically authenticated by: JOJO MANJARREZ Date: 10/18/2024 21:[address] 10/18/24 18:15 IMPRESSION: Negative for acute intracranial hemorrhage or convincing acute intracranial process. There is moderate ventriculomegaly, which could be from central cerebral atrophy without overt hydrocephalus. Electronically authenticated by: RIGO RUFF Date: 10/18/2024 20:35 Hip/Pelvis X-Ray 10/18/24 18:15 IMPRESSION: No acute fracture amount. Electronically authenticated by: JOJO MANJARREZ Date: 10/18/2024 21:[address] 10/18/24 19:13 IMPRESSION: No acute traumatic injury in the chest. No evidence of acute rib fracture. No airspace disease. Electronically authenticated by: KARISSA ALANIS Date: 10/18/2024 22:08 Discharge Plan Discharge Chief Complaint: Fall Clinical Impression: Multiple hand fractures, Epistaxis Patient Disposition: Home, Self-Care Time of Disposition Decision: 20:41 Condition: Good Prescriptions / Home Meds: No Action bumetanide 2 mg tablet 2 mg PO DAILY diltiazem HCl 30 mg tablet 30 mg PO Q8H ipratropium bromide 0.02 % solution 2.5 ml continuous nebulization Q8H levalbuterol HCl 1.25 mg/3 mL solution for nebulization 1.25 mg INHALATION Q8H metoprolol tartrate 25 mg tablet 25 mg PO Q12H Nuedexta 20-10 mg capsule 1 cap PO Q12H clonazepam 0.5 mg tablet 0.5 mg PO Q8H omeprazole 20 mg capsule,delayed release(DR/EC) 20 mg PO Q12H sildenafil (pulm.hypertension) 20 mg tablet 20 mg PO Q8H Eliquis 2.5 mg tablet 2.5 mg PO Q12H calcium acetate(phosphat bind) 667 mg capsule 667 mg PO Q8H olanzapine 7.5 mg tablet 7.5 mg PO DAILY Print Language: Faroese Instructions: Hand Fracture (ED), Nosebleed (ED) Additional Instructions: follow up with orthopedic doctor within next week, Dr hare is available on Mondays in [place] Referrals: Simón Canales MD [Primary Care Provider] - 1 week Vinod Hare MD [Physician] - 1 week Discharge Date/Time: 10/18/24 21:00 Documented by User: Rojas Lino MD 10/21/24 19:59 HPI HPI - General Adult General Chief complaint: Fall Stated complaint: fell, upper and lower extremity injury Time Seen by Provider: 10/18/24 17:57 Related Data Home Medications ?Medication ?Instructions ?Recorded ?Confirmed apixaban 2.5 mg tablet (Eliquis) 2.5 mg PO Q12H 10/18/24 10/18/24 bumetanide 2 mg tablet 2 mg PO DAILY 10/18/24 10/18/24 calcium acetate(phosphat bind) 667 667 mg PO Q8H 10/18/24 10/18/24 mg capsule clonazepam 0.5 mg tablet 0.5 mg PO Q8H 10/18/24 10/18/24 dextromethorphan 20 mg-quinidine 1 cap PO Q12H 10/18/24 10/18/24 10 mg capsule (Nuedexta) diltiazem HCl 30 mg tablet 30 mg PO Q8H 10/18/24 10/18/24 ipratropium bromide 0.02 % 2.5 ml continuous nebulization Q8H 10/18/24 10/18/24 solution for inhalation levalbuterol HCl 1.25 mg/3 mL 1.25 mg inhalation Q8H 10/18/24 10/18/24 solution for nebulization metoprolol tartrate 25 mg tablet 25 mg PO Q12H 10/18/24 10/18/24 olanzapine 7.5 mg tablet 7.5 mg PO DAILY 10/18/24 10/18/24 omeprazole 20 mg capsule,delayed 20 mg PO Q12H 10/18/24 10/18/24 release sildenafil (pulm.hypertension) 20 20 mg PO Q8H 10/18/24 10/18/24 mg tablet Allergies Allergy/AdvReac Type Severity Reaction Status Date / Time ciprofloxacin (From Cipro) AdvReac Severe Hives Verified 10/19/24 15:55 latex AdvReac Severe Hives Verified 10/19/24 15:55 Opioid HPI Opioid Management Most Recent Opioid Data: Last Pain Scale 8 10/18/24 19:26 10/18/24 [facility] Medical History (Updated 10/19/24 @ 16:29 by RHIANNA Cleary) Premature of male Prematurity, weight 500-749 grams, with less than 24 completed weeks of gestation ?P07.02 - Extremely low weight , 500-749 grams (ICD-10) Asthma ?J45.909 - Unspecified asthma, uncomplicated (ICD-10) Hypertension ?I10 - Essential (primary) hypertension (ICD-10) Pulmonary hypertension ?I27.20 - Pulmonary hypertension, unspecified (ICD-10) Cerebral palsy ?G80.9 - Cerebral palsy, unspecified (ICD-10) Exam Constitutional Vital Signs, click to edit/add: Last Vital Signs Temp 99.3 F 10/18/24 18:01 Pulse 97 H 10/18/24 18:01 Resp 16 10/18/24 20:58 BP 129/97 H 10/18/24 18:01 Pulse Ox 97 10/18/24 18:01 O2 Del Method Room Air 10/18/24 18:01 Course Vital Signs Vital signs: Vital Signs Temperature 99.3 F 10/18/24 18:01 Pulse Rate 97 H 10/18/24 18:01 Respiratory Rate 18 10/18/24 18:01 Blood Pressure 129/97 H 10/18/24 18:01 Pulse Oximetry 97 10/18/24 18:01 Oxygen Delivery Method Room Air 10/18/24 18:01 Temperature 99.3 F 10/18/24 18:01 Pulse Rate 97 H 10/18/24 18:01 Respiratory Rate 16 10/18/24 20:58 Blood Pressure 129/97 H 10/18/24 18:01 Pulse Oximetry 97 10/18/24 18:01 Oxygen Delivery Method Room Air 10/18/24 18:01 Medical Decision Making MDM Narrative Medical decision making narrative: 39-year-old male presents here with a chief complaint of left hand pain and fall. Patient is a 39-year-old that lives with mom who she states she has been has a history of blindness and is averbal. He has a history of CP. Mom states since the fall that she did witness . Mother states he fell forward when his oxygen tubing got caught on the armchair of his chair that he was sitting and he fell forward slightly landing on his hand and face. He did have a nosebleed r ight after the injury occurred. He now has left hand pain and swelling. She was concerned because he was not ambulating as he normally would and seem to be in pain. Patient does wince in pain when I touch his left hand with bruising and ecchymosis noted. No bruising or ecchymosis noted to the left chest wall but he does have some wincing when I touch the chest wall. When I straighten out his leg he does wince as well. He has no obvious deformities to his lower extremities bruising or leg shortening. patient has fractures noted to the left 1st through 4th metacarpals to the left hand. Volar splint placed by myself. Extremities neurovascular intact before and after application. Sling was also applied. Patient was medicated here with 1 Martin. Her pain is controlled. CT of the head is negative. Patient's family members are comfortable taking patient home patient looks well at this time. They are going to follow-up with a orthopedic physician in [place] as he has dialysis on Wednesdays and Fridays in [place] and is easier for them to follow-up. I, Dr Lino, have reviewed the above progress note and course of action in the ER; agree with the above. I have personally seen and evaluated this patient, gone over history and physicalwith the PA> 1900 patient is transition to Dr. Mendoza to discuss the final disposition with Bettye Bryan PA-C. Imaging Data CT scan - chest: Radiologist's impression: ITS Impressions Hand X-Ray 10/18/24 18:15 IMPRESSION: Acute mildly impacted and mildly displaced fractures of the base of the first, second, third, fourth and fifth metacarpals Electronically authenticated by: JOJO MANJARREZ Date: 10/18/2024 21:[address] 10/18/24 18:15 IMPRESSION: Negative for acute intracranial hemorrhage or convincing acute intracranial process. There is moderate ventriculomegaly, which could be from central cerebral atrophy without overt hydrocephalus. Electronically authenticated by: RIGO RUFF Date: 10/18/2024 20:35 Hip/Pelvis X-Ray 10/18/24 18:15 IMPRESSION: No acute fracture amount. Electronically authenticated by: JOJO MANJARREZ Date: 10/18/2024 21:[address] 10/18/24 19:13
--- NOTE | 2024-10-18 19:23 | PC.NURSE ---
Back to XR for rib.
[2024-10-18] MEDS: HYDROCODONE/ACET 5-325 MG TABLET 1 TAB PO ×2 (19:26→20:49)
--- NOTE | 2024-10-18 19:50 | PC.NURSE ---
PA in to splint pt's LUE. Pt tolerated fair. Sling and ice pack applied.
== END 2024-10-18 21:00 | disposition home or self-care (01) ==
PROVIDERS: Emergency Provider Emergency Medicine; PCP Family Medicine
DX: S62.232A Other displaced fracture of base of first metacarpal bone, left hand, initial encounter for closed fracture (principal); S62.311A Displaced fracture of base of second metacarpal bone, left hand, initial encounter for closed fracture; S62.313A Displaced fracture of base of third metacarpal bone, left hand, initial encounter for closed fracture; S62.315A Displaced fracture of base of fourth metacarpal bone, left hand, initial encounter for closed fracture; R04.0 Epistaxis; W07.XXXA Fall from chair, initial encounter; G80.9 Cerebral palsy, unspecified; H54.7 Unspecified visual loss; S62.317A Displaced fracture of base of fifth metacarpal bone, left hand, initial encounter for closed fracture
CPT/HCPCS: 29125; 70450; 71250; 73130; 73523; 99284

== ENCOUNTER 2024-10-19 15:46 | Emergency (ER) | payer MEDICARE, MEDICAID, SELFPAY ==
[2024-10-19 15:52] VITALS: BP 107/66; PULSE 94; TEMP 37.5; O2SAT 95; BMI 21.4
--- OUTSIDE RECORDS SUMMARY | 2024-10-19 15:53 | XMS_ITS | CCD ---
Author Organization [facility] Care Team Providers Care Bottom Loader Name Role Phone PHYSICIAN, DEFAULT Unavailable Unavailable [...] Care Provider MD Dre Cardoza Emergency Provider [phone] MD Sofia Barber Admit Provider [phone] MD Sofia Barber Attending Provider MD Melina Garcia Other Provider MD Kostas Wade Other Provider DO Van Bernardo Other Provider MD Ceferino Godinez Attending Provider MD Alejandro Escalera Other Provider [phone] ELOINA Mendieta Emergency Provider MD Michael Gonzalez Admit Provider [phone] MD Michael Gonzalez Attending Provider [phone] MD Gabby Bedolla Other Provider Asaad, MD Imad Other Provider MD Spencer Dyson Admit Provider MD Spencer Dyson Attending Provider [phone] Kostas Wade Unavailable MD Jessica Macdonald Other Provider MD Aureliano Rnagel Other Provider MD David Zayas Other Provider VICTORIA Rose Other Provider MD Jami Grimes Other Provider MD Juve Blackwell Other Provider [phone] MD Edna Blanco Other Provider [phone] DO Jared Horvath Other Provider [phone] MD Kiya Ortega Other Provider MD Dre Kowalski Other Provider MD Antonio Lopez Other Provider DO Broderick Sesay Other Provider MD Rajendra Pierce Attending Provider [phone] MD Rojas No Other Provider Denis Melvin MD Primary Care Provider MD [...] Unavailable Denis Melvin MD Primary Care Provider [phone] Denis Melvin MD Primary Care Provider [phone] JUSTYN ALVAREZ Admitting Unavailable JUSTYN ALVAREZ Attending Unavailable DENIS MELVIN Primary Care Unavailable DENIS MELVIN Primary Care Unavailable JUSTYN ALVAREZ Admitting Unavailable JUSTYN ALVAREZ Attending Unavailable DENIS MELVIN Primary Care Unavailable JUSTYN ALVAREZ Attending Unavailable JUSTYN ALVAREZ Referring Unavailable Allergies Allergy Classification Reported Allergen(s) Allergy Type Date of Onset Reaction(s) Facility (9 sources) Latex Drug allergy (disorder) 0 [facility], Hives [facility] Repository (9 sources) Ciprofloxacin Drug Allergy 1 [facility] (10 sources) Latex Propensity to adverse reactions to drug 1 Hives, Other (See Comments) [facility] Work Phone: (1 source) Ciprofloxacin Drug Allergy [facility] Repository (10 sources) Ciprofloxacin; Translations: [ciprofloxacin] Drug Allergy 3 Unknown, Other (1 source) Latex Drug allergy (disorder) 3 Repository (1 source) Latex Allergy to substance [...] 1 tablet by mouth once daily B Afrfupa-V-Fvocx Acid (TAVIA-BETY) TABS TAKE 1 TABLET BY MOUTH DAILY 0 12/06/2021 Active B Omfsjfx-Q-Jsoijl-E- Min-FA (DIALYVITE 3000) 3 MG TABS (1 source) B Wwlnewt-Q-Duewrx-E-Mi n-FA (DIALYVITE 3000) 3 MG TABS Take by mouth Active B Dtwvpmn-G-Mlcrn Acid (Renal Vitamin) 0.8 MG tablet (1 source) take 1 tablet by mouth in the morning B Lssqqvu-S-Kuckl Acid (Renal Vitamin) 0.8 MG tablet Take [...] mg oral capsule (20 sources) Antiarrhythmic, Uncompetitive D-kkmxeg-X-aspartate Receptor Antagonist, Cytochrome P450 2D6 Inhibitor, Sigma-1 Agonist Start: 10-31-2023 End: 08-14-2024 take 1 capsule by mouth in the morning Nuedexta 20-10 MG capsule Indications: Pseudobulbar affect TAKE 1 CAPSULE BY MOUTH IN THE MORNING and ONE CAPSULE BY MOUTH BEFORE bedtime 60 capsule 5 08/14/2024 Active Start: 04-28-2023 take 1 capsule by mo [facility] every twelve hours Dextromethorphan-Quinidine (Nuedexta) 20 -10 mg Capsule Active 1 CAP PO Q12H April 28, 2023 12:00am Start: 12-06-2021 take 1 capsule by mo [facility] twice daily NUEDEXTA 20-10 MG CAPS per [...] by inhal ation every eight hours Ipratropium Stilwell Active 500 MCG INHALATION Q8H April 29, 2023 12:00am Start: 04-29-2023 take 1 mL by inhalat ion every eight hours Ipratropium Stilwell Active 2.5 ML INHALATION Q8H April 29, [...] Substituted for Omeprazole (PRILOSEC). 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 Episodic Other circulatory [...] source) Long-term current use of anticoagulant; Translations: [longterm (current) use of anticoagulants] Onset: 03-24-2021 Resolved: [...] Urea nitrogen [Mass/Vol] 21 mg/dL Normal 8-26 [facility] Creatinine W/GFR Point of Ca reon 09-12-2024 Creatinine [Mass/Vol] 2.7 mg/dL High 0.51 - 1.19 mg/dL [facility] eGFR, POC 30 Low - PINF [facility] Comment on above: These results are not [...] POCon Creatinine [Mass/Vol] 2.7 mg/dL High 0.51-1.19 [facility] GFR/1.73 sq M.predicted among non-blacks MDRD (S/P/Bld) [Vol rate/Area] 30 mL/min/{1.73_m2} Low >60 [facility] Comment on above: Result Comment: [...] 09-12-2024 Glucose [Mass/Vol] 98 mg/dL Normal 74-100 [facility] Hemoglobin and hematocrit, b loodon 09-12-2024 Hematocrit (Bld) [Volume fraction] 33 % Low 41 - 53 % [facility] Hemoglobin (Bld) [Mass/Vol] 11.2 g/dL Low 13.5 - 17.5 g/dL [facility] Hgb/Hct, POCon 09-12-2024 Hematocrit (Bld) [Volume fraction] 33 % Low 41-53 [facility] Hemoglobin (Bld) [Mass/Vol] 11.2 g/dL Low 13.5-17.5 [facility] Lactic Acid (POC)on 09-12-19 25 Lactate [Moles/Vol] 0.6 mmol/L Normal 0.56-1.39 [facility] Lactic Acid, POCon POC Lactic Acid 0.6 mmol/L 0.56 - 1.39 mmol/L [facility] No Panel Informationon 09-12 Interpretation and review of laboratory results Abnormal [facility] POCT Glucoseon 09-12-2024 Glucose [Mass/Vol] 98 mg/dL 74 - 100 mg/dL [facility] POCT urea (BUN)on 09-12-2024 Urea nitrogen [Mass/Vol] 21 mg/dL 8 - 26 mg/dL [facility] POTASSIUM (POC)on 09-12-2024 Potassium [Moles/Vol] 4.3 mmol/L 3.5 - 4.5 mmol/L [facility] Potassium (POC)on 09-12-2024 Potassium [Moles/Vol] 4.3 mmol/L Normal 3.5-4.5 [facility] SODIUM (POC)on 09-12-2024 Sodium [Moles/Vol] 142 mmol/L 138 - 146 mmol/L [facility] Sodium (POC)on 09-12-2024 Sodium [Moles/Vol] 142 mmol/L Normal 138-146 [facility] BUN, POCon 05-21-2024 Urea nitrogen [Mass/Vol] 55 mg/dL High 8-26 [facility] Chloride (POC)on 05-21-2024 Chloride [Moles/Vol] 106 mmol/L Normal 98-107 [facility] Creatinine w/GFR, POCon 05-05 Creatinine [Mass/Vol] 3.1 mg/dL High 0.51-1.19 [facility] GFR/1.73 sq M.predicted among non-blacks MDRD (S/P/Bld) [Vol rate/Area] 25 mL/min/{1.73_m2} Low >60 [facility] Comment on above: Result Comment: [...] 05-21-2024 Glucose [Mass/Vol] 103 mg/dL High 74-100 [facility] Hgb/Hct, POCon 05-21-2024 Hematocrit (Bld) [Volume fraction] 36 % Low 41-53 [facility] Hemoglobin (Bld) [Mass/Vol] 12.4 g/dL Low 13.5-17.5 [facility] Potassium (POC)on 05-21-2024 Potassium [Moles/Vol] 5.6 mmol/L High 3.5-4.5 [facility] Sodium (POC)on 05-21-2024 Sodium [Moles/Vol] 136 mmol/L Low 138-146 [facility] PSA Total (Not a Screen)on 0 05-30-2023 PSA Total (Not a Screen) 2.840 ng/mL Normal 0.000-4.00 0 Comment on above: Result Comment: PERF ORMED BY: [facility] [address] [place] [address] PATHOLOGIST CYBER SECURITY MANAGER DI CORONEL M.D. Performed By: #### C BC, BMP #### [address] Prostate specific Ag [Mass/v olume] in Serum or PlasmaOrdered By: Kostas Wade on 05-30-2023 Prostate specific Ag [Mass/Vol] 2.840 ng/mL 0.000-4.00 0 Basic Metabolic Panel w/ Ref kortney to MGon 05-27-2023 Anion gap [Moles/Vol] 18 mmol/L High 9 - 17 mmol/L [employer] Calcium [Mass/Vol] 8.6 mg/dL 8.6 - 10. 4 mg/dL [employer] Chloride [Moles/Vol] 103 mmol/L 98 - 10 7 mmol/L [employer] CO2 [Moles/Vol] 18 mmol/L Low 20 - 31 mmol/L [employer] Creatinine [Mass/Vol] 6.1 mg/dL Critically high 0.7 - 1.2 mg/dL [employer] GFR/1.73 sq M.predicted MDRD (S/P/Bld) [Vol rate/Area] 11 mL/min/{1.73_m2} Low - PINF [employer] Comment on above: These results are not [...] [Mass/Vol] 89 mg/dL 70 - 99 mg/dL [facility] Interpretation and review of laboratory results Abnormal [facility] Potassium [Moles/Vol] 4.5 mmol/L 3.7 - 5.3 mmol/L [facility] Sodium [Moles/Vol] 139 mmol/L 135 - 144 mmol/L [facility] Urea nitrogen [Mass/Vol] 45 mg/dL High 6 - 20 mg/dL [facility] CBC with Auto Differentialon 05-27-2023 Basophils (Bld) [#/Vol] B ON [facility] Basophils/100 WBC (Bld) 0 % 0 - 2 % B ON [facility] Eosinophils (Bld) [#/Vol] 0.70 10*3/uL High [facility] Eosinophils/100 WBC (Bld) 10 % High 1 - 4 % [facility] Erythrocyte distribution width (RBC) [Ratio] 14.5 % High 11.8 - 14.4 % [facility] Hematocrit (Bld) [Volume fraction] 38.3 % Low 40.7 - 50.3 % [facility] Hemoglobin (Bld) [Mass/Vol] 11.3 g/dL Low 13.0 - 17.0 g/dL [facility] Immature granulocytes (Bld) [#/Vol] 0.03 10*3/uL [facility] Immature granulocytes/100 WBC (Bld) 0 % 0 [facility] Interpretation and review of laboratory results Abnormal [facility] Lymphocytes/100 WBC (Bld) 24 % 24 - 43 % [facility] Lymphocytes/100 WBC (Bld) 1.62 % [facility] MCH (RBC) [Entitic mass] 30.0 pg 25.2 - 33.5 pg [facility] MCHC (RBC) [Mass/Vol] 29.5 g/dL 28.4 - 34.8 g/dL [facility] MCV (RBC) [Entitic vol] 101.6 fL 82.6 - 102.9 fL [facility] Monocytes/100 WBC (Bld) 10 % 3 - 12 % B ON [facility] Monocytes/100 WBC (Bld) 0.68 % B ON [facility] Neutrophils/100 WBC (Bld) 56 % 36 - 65 % [facility] Nucleated RBC/100 WBC (Bld) [Ratio] 0.0 % 0.0 per 100 WBC [facility] Platelet mean volume (Bld) [Entitic vol] 9.6 fL 8.1 - 13.5 fL [facility] Platelets (Bld) [#/Vol] 210 10*3/uL [facility] RBC (Bld) [#/Vol] 3.77 10*6/uL Low 4.21 - 5.77 m/uL [facility] RBC (Bld) [#/Vol] ANISOCYTOSIS PRESENT [facility] Segmented neutrophils/100 WBC (Bld) 3.65 % [facility] WBC other (Bld) [#/Vol] 6.7 B ON [facility] Cath hemo interfaceOrdered B y: User Epic on 05-27-2023 Body surface area Derived from formula 1.73 m2 [facility] Work Phone: Invasive vascular procedureo n 05-27-2023 Please see operative note [facility] CV CPACS HEMO [facility] Radiology Study observation (narrative) [facility] No Panel Informationon 05-27 No acute findings. [facility] EXAMINATION: 2 XRAY VIEWS OF THE RIGHT ANKLE; TWO XRAY VIEWS OF THE RIGHT FOOT 05/27/2023 9:06 am COMPARISON: None. HISTORY: ORDERING SYSTEM PROVIDED HISTORY: ankle pain TECHNOLOGIST PROVIDED HISTORY: ankle pain FINDINGS: Ankle and foot alignment anatomic. No acute osseous abnormality. Joint spaces maintained. Soft tissues unremarkable. [facility] Colin Walker DO - 05/27/2023 EXAMINATION: 2 XRAY VIEWS OF THE RIGHT ANKLE; TWO XRAY VIEWS OF THE RIGHT FOOT 05/27/2023 9:06 am COMPARISON: None. HISTORY: ORDERING SYSTEM PROVIDED HISTORY: ankle pain TECHNOLOGIST PROVIDED HISTORY: ankle pain FINDINGS: Ankle and foot alignment anatomic. No acute osseous abnormality. Joint spaces maintained. Soft tissues unremarkable. IMPRESSION: No acute findings. [facility] Radiology Study observation (narrative) [facility] No Panel InformationOrdered By: Colin Walker on 05-27-2023 [facility] Work Phone: Protime-INRon 05-27-2023 INR Coag (PPP) [Relative time] 0.9 {INR} [facility] Comment on above: Therapeutic Range: Moderate Anticoagulant Intensity: INR = 2.0-3.0 High Anticoagulant Intensity: INR = 2.5-3.5 PT Coag (PPP) [Time] 12.4 s [facility] CBC with Auto Differentialon 05-26-2023 Basophils (Bld) [#/Vol] B ON [facility] Basophils/100 WBC (Bld) 0 % 0 - 2 % B ON [facility] Eosinophils (Bld) [#/Vol] 0.76 10*3/uL High [facility] Eosinophils/100 WBC (Bld) 9 % High 1 - 4 % [facility] Erythrocyte distribution width (RBC) [Ratio] 14.5 % High 11.8 - 14.4 % [facility] Hematocrit (Bld) [Volume fraction] 35.1 % Low 40.7 - 50.3 % [facility] Hemoglobin (Bld) [Mass/Vol] 10.3 g/dL Low 13.0 - 17.0 g/dL [facility] Immature granulocytes (Bld) [#/Vol] 0.04 10*3/uL [facility] Immature granulocytes/100 WBC (Bld) 1 % High 0 [facility] Interpretation and review of laboratory results Abnormal [facility] Lymphocytes/100 WBC (Bld) 15 % Low 24 - 43 % [facility] Lymphocytes/100 WBC (Bld) 1.29 % [facility] MCH (RBC) [Entitic mass] 29.4 pg 25.2 - 33.5 pg [facility] MCHC (RBC) [Mass/Vol] 29.3 g/dL 28.4 - 34.8 g/dL [facility] MCV (RBC) [Entitic vol] 100.3 fL 82.6 - 102.9 fL [facility] Monocytes/100 WBC (Bld) 12 % 3 - 12 % B ON [facility] Monocytes/100 WBC (Bld) 0.98 % B ON [facility] Neutrophils/100 WBC (Bld) 63 % 36 - 65 % [facility] Nucleated RBC/100 WBC (Bld) [Ratio] 0.2 % High 0.0 per 100 WBC [facility] Platelet mean volume (Bld) [Entitic vol] 9.5 fL 8.1 - 13.5 fL [facility] Platelets (Bld) [#/Vol] 212 10*3/uL [facility] RBC (Bld) [#/Vol] 3.50 10*6/uL Low 4.21 - 5.77 m/uL [facility] RBC (Bld) [#/Vol] ANISOCYTOSIS PRESENT [facility] Segmented neutrophils/100 WBC (Bld) 5.46 % [facility] WBC other (Bld) [#/Vol] 8.6 B ON [facility] Comprehensive Metabolic Pane clara 05-26-2023 Albumin [Mass/Vol] 3.4 g/dL Low 3.5 - 5.2 g/dL [facility] Albumin/Globulin [Mass ratio] 1.4 {ratio} 1.0 - 2.5 [facility] ALP [Catalytic activity/Vol] 106 U/L 40 - 129 U/L [facility] ALT [Catalytic activity/Vol] 7 U/L 5 - 41 U/L [facility] Anion gap [Moles/Vol] 14 mmol/L 9 - 17 mmol/L [facility] AST [Catalytic activity/Vol] 8 U/L NINF - 40 U/L [facility] Bilirubin [Mass/Vol] 0.2 mg/dL Low 0.3 - 1 .2 mg/dL [facility] Calcium [Mass/Vol] 8.2 mg/dL Low 8.6 - 10. 4 mg/dL [facility] Chloride [Moles/Vol] 103 mmol/L 98 - 10 7 mmol/L [facility] CO2 [Moles/Vol] 19 mmol/L Low 20 - 31 mmol/L [facility] Creatinine [Mass/Vol] 5.9 mg/dL Critically high 0.7 - 1.2 mg/dL [facility] GFR/1.73 sq M.predicted MDRD (S/P/Bld) [Vol rate/Area] 12 mL/min/{1.73_m2} Low - PINF [facility] Comment on above: These results are not [...] [Mass/Vol] 96 mg/dL 70 - 99 mg/dL [facility] Interpretation and review of laboratory results Abnormal [facility] Potassium [Moles/Vol] 4.6 mmol/L 3.7 - 5.3 mmol/L [facility] Protein [Mass/Vol] 5.8 g/dL Low 6.4 - 8.3 g/dL [facility] Sodium [Moles/Vol] 136 mmol/L 135 - 144 mmol/L [facility] Urea nitrogen [Mass/Vol] 43 mg/dL High 6 - 20 mg/dL [facility] Basic Metabolic Panelon 05-05 Creatinine Clr Calc Pharmacy 23.47 [facility] Comment on above: Performed By: #### B MG MARQUEZ #### [address] GFR/1.73 sq M.predicted MDRD (S/P/Bld) [Vol rate/Area] 20.161 mL/min/{1.73_m2} [facility] Comment on above: Performed By: #### B MP, MG #### [facility] [address] [place] [address] [place] Calcium [Mass/volume] in Ser um or PlasmaOrdered By: Rajendra Pierce on 05-20-2023 Calcium [Mass/Vol] 9.0 mg/dL Normal 8.6-10.3 [facility] Comment on above: Performed By: #### B MP, MG #### [facility] [address] [place] [address] [place] Carbon dioxide, total [Moles /volume] in Serum or PlasmaOrdered By: Rajendra Pierce on 05-20-2023 CO2 [Moles/Vol] 29.3 mmol/L Normal 21.0-31.0 [facility] Comment on above: Performed By: #### B MARQUEZ, MG #### [facility] [address] [place] [address] [place] Chloride [Moles/volume] in S adolph or PlasmaOrdered By: Rajendra Pierce on 05-20-2023 Chloride [Moles/Vol] 103 mmol/L Normal 98-107 [facility] Comment on above: Performed By: #### B MARQUEZ, MG #### [facility] [address] [place] [address] [place] Creatinine [Mass/volume] in Serum or PlasmaOrdered By: Rajendra Pierce on 05-20-2023 Creatinine [Mass/Vol] 3.76 mg/dL Significan t change up 0.70-1.30 Comment on above: Delta: 6.70 on 05/19-5 Performed By: #### B MP, MG #### [facility] [address] [place] [address] [place] Glucose [Mass/volume] in Ser um or PlasmaOrdered By: Rajendra Pierce on 05-20-2023 Glucose [Mass/Vol] 93 mg/dL Normal 70-100 [facility] Comment on above: ADA recommended refe rence rangeRandom Glucose Reference Range is dependent on time and content of last meal. Glucose of more than 200 mg/dL in a nonstressed, ambulatory subject supports the diagnosis of Diabetes Mellitus. Result Comment: [facility] Glucose Reference Range is dependent on time and content of last meal. Glucose of more than 200 mg/dL in a nonstressed, ambulatory subject supports the diagnosis of Diabetes Mellitus. ADA recommended reference range Performed By: #### B MARQUEZ, MG #### [facility] [address] [place] [address] Magnesium [Mass/volume] in S adolph or PlasmaOrdered By: Rajendra Pierce on 05-20-2023 Magnesium [Mass/Vol] 2.0 mg/dL Normal 1.9-2.7 [facility] Comment on above: Result Comment: PERF ORMED BY: [place] [address] PATHOLOGIST CYBER SECURITY MANAGER DI CORONEL M.D. Performed By: #### B MARQUEZ, MG #### [address] No Panel InformationOrdered By: Rajendra Pierce on 05-20-2023 Estimated GFR (CKD-EPI) 20.161 mL/Min Pharmacy Creatinine Clearance (Chem 23.47 Potassium [Moles/volume] in Serum or PlasmaOrdered By: Rajendra Pierce on 05-20-2023 Potassium [Moles/Vol] 3.9 mmol/L Normal 3.5-5.1 [facility] Comment on above: Performed By: #### B MARQUEZ, MG #### [address] Serum or plasma anion gap de terminationOrdered By: Rajendra Pierce on 05-20-2023 Anion gap [Moles/Vol] 8.6 mmol/L Normal 6.0-15.0 [facility] Comment on above: Performed By: #### B MP, MG #### [address] Sodium [Moles/volume] in Ser um or PlasmaOrdered By: Rajendra Pierce on 05-20-2023 Sodium [Moles/Vol] 137 mmol/L Normal 136-145 [facility] Comment on above: Performed By: #### B MARQUEZ MG #### [facility] [address] Urea nitrogen [Mass/volume] in Serum or PlasmaOrdered By: Rajendra Pierce on 05-20-2023 Urea nitrogen [Mass/Vol] 21 mg/dL Significant change down 7-25 Comment on above: Delta: 54 on 3-0415 Performed By: #### B MARQUEZ MG #### [facility] [address] Albumin [Mass/volume] in Ser um or Plasma by Bromocresol green (BCG) dye binding methoOrdered By: Melina Garcia on 05-19-2023 Albumin BCG dye [Mass/Vol] 3.2 g/dL 3.5-5.7 Phosphate [Mass/volume] in S adolph or PlasmaOrdered By: Melina Garcia on 05-19-2023 Phosphate [Mass/Vol] 5.4 mg/dL 3.7-7.2 [facility] Renal Function Panelon 05-19 Albumin [Mass/Vol] 3.2 g/dL Low 3.5-5.7 [facility] Comment on above: Performed By: #### R ENAL ####[facility] [place] [id number] [facility] Anion gap [Moles/Vol] 17.6 mmol/L High 6.0-15.0 [facility] Comment on above: Performed By: #### R ENAL ####[facility] [place] [id number] [facility] Calcium [Mass/Vol] 8.4 mg/dL Low 8.6-10.3 [facility] Comment on above: Performed By: #### R ENAL ####[facility] [id number] [place] [id number] [facility] Chloride [Moles/Vol] 102 mmol/L Normal 98-107 [facility] Comment on above: Performed By: #### R ENAL ####[facility] [id number] [place] [id number] [facility] CO2 [Moles/Vol] 24.7 mmol/L Normal 21.0-31.0 [facility] Comment on above: Performed By: #### R ENAL ####[place] [id number] [place] [id number] [facility] Creatinine [Mass/Vol] 6.70 mg/dL Significan t change up 0.70-1.30 Comment on above: Performed By: #### R ENAL ####[place] [id number] Creatinine Clr Calc Pharmacy 14.31 Normal Comment on above: Result Comment: PERF ORMED BY: [facility] [address] [place] [id number] PATHOLOGIST CYBER SECURITY MANAGER DI CORONEL M.D. Performed By: #### R ENAL ####[address] GFR/1.73 sq M.predicted MDRD (S/P/Bld) [Vol rate/Area] 10.080 mL/min/{1.73_m2} Normal [facility] Comment on above: Performed By: #### R ENAL ####[place] [id number] [facility] Glucose [Mass/Vol] 87 mg/dL Normal 70-100 [facility] Comment on above: Result Comment: Center Glucose Reference Range is dependent on time and content of last meal. Glucose of more than 200 mg/dL in a nonstressed, ambulatory subject supports the diagnosis of Diabetes Mellitus. ADA recommended reference range Performed By: #### R ENAL ####[place] [id number] [place] [id number] [facility] Phosphate [Mass/Vol] 5.4 mg/dL Normal 3.7-7.2 [facility] Comment on above: Performed By: #### R ENAL ####[place] [id number] [facility] Potassium [Moles/Vol] 4.3 mmol/L Normal 3.5-5.1 [facility] Comment on above: Performed By: #### R ENAL ####[facility] [id number] [place] [address] [facility] Sodium [Moles/Vol] 140 mmol/L Significant change down 136-145 Comment on above: Performed By: #### R ENAL ####[facility] [id number] [place] [address] [facility] Urea nitrogen [Mass/Vol] 54 mg/dL High 7-25 Comment on above: Performed By: #### R ENAL ####[facility] [id number] [place] [address] [facility] Amphetamine Screen Ql (U)Ord ered By: Rajendra Pierce on 05-18-2023 Amphetamines Ql (U) Negative Negative [facility] Arterial Blood Gason 023 ABG Base Excess -5.8 mmol/L Low -3.0-3.0 [facility] Comment on above: Performed By: #### A BG #### Point of Care testing , ABG Frac Inspired O2 40 % Normal [facility] Comment on above: Performed By: #### A BG #### Point of Care testing , ABG Oxygen Content 6.9 mmol/L Normal 6.6-9.7 [facility] Comment on above: Performed By: #### A BG #### Point of Care testing , ABG Oxygen Saturation 97.0 % Normal 95.0-100.0 [facility] Comment on above: Performed By: #### A BG #### Point of Care testing , ABG PCO2 57.6 mm[Hg] Off scale high 35.0-45.0 Comment on above: Performed By: #### A BG #### Point of Care testing , ABG PEEP 5 Normal Comment on above: Performed By: #### A BG #### Point of Care testing , ABG PH 7.21 Low 7.35-7.45 Comment on above: Performed By: #### A BG #### Point of Care testing , ABG PO2 90.1 mm[Hg] Normal 80.0-100.0 Comment on above: Performed By: #### A BG #### Point of Care testing , ABG TV 450 mL Normal Comment on above: Performed By: #### A BG #### Point of Care testing , CO2 [Moles/Vol] 24.2 mmol/L Normal 23.0-27.0 [facility] Comment on above: Performed By: #### A BG #### Point of Care testing , HCO3 (Bld) [Moles/Vol] 22.5 mmol/L Low 23.0-29.0 [facility] Comment on above: Performed By: #### A BG #### Point of Care testing , Respiratory Critical [facility] Comment on above: Result Comment: Crit ical Value called on: 05/18/2023 at 14:58 PERFORMED BY: [place] [address] PATHOLOGIST CYBER SECURITY MANAGER DI CORONEL M.D. Performed By: #### A BG #### Point of Care testing , Set Respiratory Rate 14 Normal [facility] Comment on above: Performed By: #### A BG #### Point of Care testing , VBG Draw Site Right Brachial Normal [facility] Comment on above: Performed By: #### A BG #### Point of Care testing , ABG Base Excess -7.0 mmol/L Low -3.0-3.0 [facility] Comment on above: Performed By: #### B MARQUEZ MG #### [facility] [address] [place] [address] ABG Frac Inspired O2 40 % [facility] Comment on above: Performed By: #### B MARQUEZ MG #### [facility] [address] [place] [address] ABG Oxygen Content 6.6 mmol/L Normal 6.6-9.7 [facility] Comment on above: Performed By: #### B MARQUEZ MG #### [facility] [address] [place] [address] ABG Oxygen Saturation 89.1 % Low 95.0-100.0 [facility] Comment on above: Performed By: #### B MP, MG #### [facility] [address] [place] [address] ABG PCO2 71.9 mm[Hg] Off scale high 35.0-45.0 Comment on above: Performed By: #### B MP, MG #### [facility] [address] [place] [address] ABG PEEP 8 Normal Comment on above: Performed By: #### B MP, MG #### [facility] [address] [place] [address] ABG PH 7.13 Off scale low 7.35-7.45 Comment on above: Performed By: #### B MP, MG #### [facility] [address] [place] [address] ABG PO2 56.5 mm[Hg] Low 80.0-100.0 Comment on above: Performed By: #### B MP, MG #### [facility] [address] [place] [address] CO2 [Moles/Vol] 25.3 mmol/L Normal 23.0-27.0 [facility] Comment on above: Performed By: #### B MP, MG #### [facility] [address] [place] [address] HCO3 (Bld) [Moles/Vol] 23.1 mmol/L Normal 23.0-29.0 [facility] Comment on above: Performed By: #### B MP, MG #### [facility] [address] [place] [address] Respiratory Critical Normal [facility] Comment on above: Result Comment: Crit ical Value called on: 05/18/2023 at 05:34 PERFORMED BY: [place] [address] PATHOLOGIST CYBER SECURITY MANAGER DI CORONEL M.D. Performed By: #### B MP, MG #### [facility] [address] VBG Draw Site Right Radial Normal Comment on above: Performed By: #### B MG MARQUEZ #### [facility] [address] Barbiturates [Presence] in U rine by Screen methodOrdered By: Rajendra Pierce on 05-18-2023 Barbiturates Screen Ql (U) Negative Negative Basic Metabolic Panelon 05-05 Anion gap [Moles/Vol] 9.3 mmol/L Normal 6.0-15.0 [facility] Comment on above: Performed By: #### A BG #### Point of Care testing , Calcium [Mass/Vol] 8.6 mg/dL Normal 8.6-10.3 [facility] Comment on above: Performed By: #### A BG #### Point of Care testing , Chloride [Moles/Vol] 104 mmol/L Normal 98-107 [facility] Comment on above: Performed By: #### A BG #### Point of Care testing , CO2 [Moles/Vol] 25.4 mmol/L Normal 21.0-31.0 [facility] Comment on above: Performed By: #### A BG #### Point of Care testing , Creatinine [Mass/Vol] 6.01 mg/dL High 0.70-1.30 [facility] Comment on above: Performed By: #### A BG #### Point of Care testing , Creatinine Clr Calc Pharmacy 15.35 [facility] Comment on above: Performed By: #### A BG #### Point of Care testing , GFR/1.73 sq M.predicted MDRD (S/P/Bld) [Vol rate/Area] 11.484 mL/min/{1.73_m2} [facility] Comment on above: Performed By: #### A BG #### Point of Care testing , Glucose [Mass/Vol] 97 mg/dL Normal 70-100 [facility] Comment on above: Result Comment: Center Glucose Reference Range is dependent on time and content of last meal. Glucose of more than 200 mg/dL in a nonstressed, ambulatory subject supports the diagnosis of Diabetes Mellitus. ADA recommended reference range Performed By: #### A BG #### Point of Care testing , Potassium [Moles/Vol] 4.7 mmol/L Normal 3.5-5.1 [facility] Comment on above: Performed By: #### A BG #### Point of Care testing , Sodium [Moles/Vol] 134 mmol/L Low 136-145 [facility] Comment on above: Performed By: #### A BG #### Point of Care testing , Urea nitrogen [Mass/Vol] 44 mg/dL High 7-25 Comment on above: Performed By: #### A BG #### Point of Care testing , Basophils Auto (Bld) [#/Vol] Ordered By: Terra Cardoza on 05-18-2023 Basophils (Bld) [#/Vol] 0.1 10*3/uL 0.0-0.2 Basophils/100 WBC Auto (Bld) Ordered By: Terra Cardoza on 05-18-2023 Basophils/100 WBC (Bld) 0.6 % . [facility] Benzodiazepines Screen Ql (U )Ordered By: Rajendra Pierce on 05-18-2023 Benzodiazepines Ql (U) Negative Negative [facility] Benzoylecgonine [Presence] i n Urine by Screen methodOrdered By: Rajendra Pierce on 05-18-2023 Benzoylecgonine Screen Ql (U) Negative Negative Cannabinoids [Presence] in U rine by Screen methodOrdered By: Rajendra Pierce on 05-18-2023 Cannabinoids Screen Ql (U) Negative Negative Comment on above: These are unconfirme d results and should not be used for legal purposes. Drug Cut-Off Concentration: AMPH 1000 ng/mL SARAH 200 ng/mL CRISTA 200 ng/mL COCM 300 ng/mL OP 300 ng/mL PCP 25 ng/mL THC 20 ng/mL Complete Blood Count Auto Di ffon 05-18-2023 Basophils (Bld) [#/Vol] 0.1 10*3/uL Normal 0.0-0.2 Comment on above: Result Comment: PERF ORMED BY: [place] [address] PATHOLOGIST CYBER SECURITY MANAGER DI CORONEL M.D. Performed By: #### B MP, MG #### [facility] [address] [place] [address] [place] Basophils/100 WBC (Bld) 0.6 % Normal . [facility] Comment on above: Performed By: #### B MP, MG #### [facility] [address] [place] [address] [place] Eosinophils (Bld) [#/Vol] 0.5 10*3/uL High 0.0-0.45 Comment on above: Performed By: #### B MP, MG #### [place] [address] [place] Eosinophils/100 WBC (Bld) 5.3 % Normal . Comment on above: Performed By: #### B MP, MG #### [facility] [address] [place] [address] Erythrocyte distribution width (RBC) [Ratio] 14.8 % Normal 12.0-14.8 Comment on above: Performed By: #### B MP, MG #### [facility] [address] [place] [address] Hematocrit (Bld) [Volume fraction] 32.7 % Low 38.8-50.0 Comment on above: Performed By: #### B MP, MG #### [place] [address] [place] Hemoglobin (Bld) [Mass/Vol] 10.5 g/dL Low 13.0-17.0 Comment on above: Performed By: #### B MP, MG #### [place] [address] [place] Lymphocytes (Bld) [#/Vol] 1.0 10*3/uL Normal 1.00-4.8 Comment on above: Performed By: #### B MP, MG #### [address] Lymphocytes/100 WBC (Bld) 11.3 % Normal . Comment on above: Performed By: #### B MP, MG #### [facility] [address] [place] [address] MCH (RBC) [Entitic mass] 30.5 pg Normal 27.5-35.2 Comment on above: Performed By: #### B MP, MG #### [address] MCV (RBC) [Entitic vol] 94.6 fL Normal 83.5-101 [facility] Comment on above: Performed By: #### B MP, MG #### [address] Mean Corpuscular HGB Conc 32.2 g/dL Low 32.5-35.6 Comment on above: Performed By: #### B MP, MG #### [place] [address] [place] Monocytes (Bld) [#/Vol] 1.1 10*3/uL High 0.0-0.8 Comment on above: Performed By: #### B MP, MG #### [address] Monocytes/100 WBC (Bld) 11.8 % Normal . [facility] Comment on above: Performed By: #### B MP, MG #### [address] Neutrophils (Bld) [#/Vol] 6.4 10*3/uL Normal 1.8-7.7 Comment on above: Performed By: #### B MP, MG #### [address] Neutrophils/100 WBC (Bld) 71.0 % Normal . Comment on above: Performed By: #### B MP, MG #### [address] NRBC% 0.4 /100{WBC} Normal 0-0.5 Comment on above: Performed By: #### B MP, MG #### [address] Platelet mean volume (Bld) [Entitic vol] 7.3 fL Normal 6.6-10.1 Comment on above: Performed By: #### B MP, MG #### [address] Platelets (Bld) [#/Vol] 242 10*3/uL Normal 150-450 Comment on above: Performed By: #### B MP, MG #### [address] RBC (Bld) [#/Vol] 3.45 10*6/uL Low 3.90-5.60 [facility] Comment on above: Performed By: #### B MP, MG #### [address] WBC (Bld) [#/Vol] 9.1 10*3/uL Normal 4.1-10.5 [facility] Comment on above: Performed By: #### B MP, MG #### [address] Drug Screen,Urineon 05-18-20 23 Amphetamine Screen,Urine Negative Normal Negative Comment on above: Performed By: #### C UU, URDS #### [address] Barbiturate Screen,Urine Negative Normal Negative Comment on above: Performed By: #### C UU, URDS #### [address] Benzodiazepines Screen,Urine Negative Normal Negative Comment on above: Performed By: #### C UU, URDS #### [address] Cannabinoid Screen,Urine Negative Normal Negative Comment on above: Result Comment: Thes e are unconfirmed results and should not be used for legal purposes. Drug Cut-Off Concentration: AMPH 1000 ng/mL SARAH 200 ng/mL CRISTA 200 ng/mL COCM 300 ng/mL OP 300 ng/mL PCP 25 ng/mL THC 20 ng/mL PERFORMED BY: [place] [address] PATHOLOGIST CYBER SECURITY MANAGER DI CORONEL M.D. Performed By: #### C UU, URDS #### [facility] [address] [place] [address] Cocaine Screen,Urine Negative Normal Negative [facility] Comment on above: Performed By: #### C UU, URDS #### [facility] [address] [place] [address] Opiate Screen,Urine Negative Normal Negative [facility] Comment on above: Performed By: #### C UU, URDS #### [facility] [address] [place] [address] Phencyclidine Screen,Urine Negative Normal Negative Comment on above: Performed By: #### C UU, URDS #### [facility] [address] [place] [address] Eosinophils Auto (Bld) [#/Vo l]Ordered By: Terra Cardoza on 05-18-2023 Eosinophils (Bld) [#/Vol] 0.5 10*3/uL 0.0-0.45 Eosinophils/100 WBC Auto (Bl d)Ordered By: Terra Cardoza on 05-18-2023 Eosinophils/100 WBC (Bld) 5.3 % . Erythrocyte distribution wid th Auto (RBC) [Ratio]Ordered By: Terra Cardoza on 05-18-2023 Erythrocyte distribution width (RBC) [Ratio] 14.8 % 12.0-14.8 Hematocrit Auto (Bld) [Volum e fraction]Ordered By: Terra Cardoza on 05-18-2023 Hematocrit (Bld) [Volume fraction] 32.7 % 38.8-50.0 Hemoglobin [Mass/volume] in BloodOrdered By: Terra Cardoza on 05-18-2023 Hemoglobin (Bld) [Mass/Vol] 10.5 g/dL 13.0-17.0 Laboratory - Chemistry and C hemistry - challengeOrdered By: Rajendra Pierce on 05-18-2023 CO2 [Moles/Vol] 24.2 mmol/L 23.0-27.0 [facility] HCO3 (Bld) [Moles/Vol] 22.5 mmol/L 23.0-29.0 [facility] Leukocytes [#/volume] correc radha for nucleated erythrocytes in Blood by Automated counOrdered By: Terra Cardoza on 05-18-2023 WBC corrected for nucl RBC Auto (Bld) [#/Vol] 9.1 10*3/uL 4.1-10.5 Lymphocytes Auto (Bld) [#/Vo l]Ordered By: Terra Cardoza on 05-18-2023 Lymphocytes (Bld) [#/Vol] 1.0 10*3/uL 1.00-4.8 Lymphocytes/100 WBC Auto (Bl d)Ordered By: Terra Cardoza on 05-18-2023 Lymphocytes/100 WBC (Bld) 11.3 % . MCH Auto (RBC) [Entitic mass ]Ordered By: Terra Cardoza on 05-18-2023 MCH (RBC) [Entitic mass] 30.5 pg 27.5-35.2 MCHC Auto (RBC) [Mass/Vol]Or dered By: Terra Cardoza on 05-18-2023 MCHC (RBC) [Mass/Vol] 32.2 g/dL 32.5-35.6 [facility] MCV Auto (RBC) [Entitic vol] Ordered By: Terra Cardoza on 05-18-2023 MCV (RBC) [Entitic vol] 94.6 fL 83.5-101 [facility] Magnesiumon 05-18-2023 Magnesium [Mass/Vol] 1.7 mg/dL Low 1.9-2.7 [facility] Comment on above: Result Comment: PERF ORMED BY: [facility] [address] [place] [address] PATHOLOGIST CYBER SECURITY MANAGER DI CORONEL M.D. Performed By: #### A BG #### Point of Care testing , Monocytes Auto (Bld) [#/Vol] Ordered By: Terra Cardoza on 05-18-2023 Monocytes (Bld) [#/Vol] 1.1 10*3/uL 0.0-0.8 Monocytes/100 WBC Auto (Bld) Ordered By: Terra Cardoza on 05-18-2023 Monocytes/100 WBC (Bld) 11.8 % . [facility] Neutrophils Auto (Bld) [#/Vo l]Ordered By: Terra Cardoza on 05-18-2023 Neutrophils (Bld) [#/Vol] 6.4 10*3/uL 1.8-7.7 Neutrophils/100 WBC Auto (Bl d)Ordered By: Terra Cardoza on 05-18-2023 Neutrophils/100 WBC (Bld) 71.0 % . No Panel InformationOrdered By: Rajendra Pierce on 05-18-2023 Arterial Blood Base Excess -5.8 mmol/L -3.0-3.0 Arterial Blood Oxygen Content 6.9 mmol/L 6.6-9.7 Arterial Blood Oxygen Saturation 97.0 % 95.0-100.0 Arterial Blood Partial Pressure CO2 57.6 mm[Hg] 35.0-45.0 Arterial Blood Partial Pressure O2 90.1 mm[Hg] 80.0-100.0 Arterial Blood pH 7.21 7.35-7.45 [facility] Blood Gas Critical Value See comment Comment on above: Critical Value sainz d on: 05/18/2023 at 14:58 Blood Gas PEEP 5 cmH2O Blood Gas Sample Site Right brachial Blood Gas Set Respiration Rate 14 Blood Gas Tidal Volume 450 mL [facility] FiO2 40 % Nucleated erythrocytes [Pres ence] in Blood by Automated countOrdered By: Terra Cardoza on 05-18-2023 Nucleated RBC Auto Ql (Bld) 0.4 /100{WBC} 0-0.5 Opiates [Presence] in Urine by Screen methodOrdered By: Rajendra Pierce on 05-18-2023 Opiates Screen Ql (U) Negative Negative Fir [facility] Phencyclidine Screen Ql (U)O rdered By: Rajendra Pierce on 05-18-2023 Phencyclidine Ql (U) Negative Negative [facility] Platelet mean volume Auto (B ld) [Entitic vol]Ordered By: Terra Cardoza on 05-18-2023 Platelet mean volume (Bld) [Entitic vol] 7.3 fL 6.6-10.1 Platelets Auto (Bld) [#/Vol] Ordered By: Terra Cardoza on 05-18-2023 Platelets (Bld) [#/Vol] 242 10*3/uL 150-450 RBC Auto (Bld) [#/Vol]Ordere d By: Terra Cardoza on 05-18-2023 RBC (Bld) [#/Vol] 3.45 10*6/uL 3.90-5.60 [facility] US AV Fistulaon 05-18-2023 US AV Fistula [facility] [place] [address] Ultrasound Report Signed Patient: Ruddy Palmer MR#: [id number] 9 : 1985 Acct:[id number] Age/Sex: 37 / M ADM Date: 05/17/23 Loc: Room: [address] [place] [address] Type: ADM IN Attending Dr: Rajendra Pierce [...] Rojas No M.D.05/18/2023 1:35 PM [facility]: Naz Pamela Transcribed By: DESEAN 05/18/23 133 Dictated By: Rojas No MD 05/18/[id number] Signed By: 05/18/[id number] [facility] Urine Cultureon 05-18-2023 Bacteria identified Cx Nom (U) No Growth 2 Days PERFORMED BY: [place] [address] PATHOLOGIST CYBER SECURITY MANAGER DI CORONEL M.D. [facility] Comment on above: Performed By: #### C UU, URDS #### [facility] [address] [place] [address] Urine culture routineOrdered By: Rajendra Pierce on 05-18-2023 Bacteria identified Cx Nom (U) No Growth 2 Days WBC Auto (Bld) [#/Vol]Ordere d By: Terra Cardoza on 05-18-2023 WBC (Bld) [#/Vol] 9.1 10*3/uL 4.1-10.5 [facility] Alanine aminotransferase [En zymatic activity/volume] in Serum or PlasmaOrdered By: Fransico Mendieta on 05-17-2023 ALT [Catalytic activity/Vol] 10 U/L 7-52 Albumin [Mass/volume] in Ser um or Plasma by Bromocresol green (BCG) dye binding methoOrdered By: Fransico Mendieta on 05-17-2023 Albumin BCG dye [Mass/Vol] 3.5 g/dL 3.5-5.7 Alkaline phosphatase [Enzyma tic activity/volume] in Serum or PlasmaOrdered By: Fransico Mendieta on 05-17-2023 ALP [Catalytic activity/Vol] 100 U/L 34-104 Arterial Blood Gason 023 ABG Base Excess -8.0 mmol/L Low -3.0-3.0 [facility] Comment on above: Performed By: #### C UU, URDS #### [facility] [address] ABG Frac Inspired O2 28 % Normal [facility] Comment on above: Performed By: #### C UU, URDS #### [facility] [address] ABG Oxygen Content 6.8 mmol/L Normal 6.6-9.7 [facility] Comment on above: Performed By: #### C UU, URDS #### [facility] [address] ABG Oxygen Saturation 95.3 % Normal 95.0-100.0 [facility] Comment on above: Performed By: #### C UU, URDS #### [facility] [address] ABG PCO2 70.8 mm[Hg] Off scale high 35.0-45.0 Comment on above: Performed By: #### C UU, URDS #### [facility] [address] ABG PH 7.11 Off scale low 7.35-7.45 Comment on above: Performed By: #### C UU, URDS #### [facility] [address] ABG PO2 79.9 mm[Hg] Low 80.0-100.0 Comment on above: Performed By: #### C UU, URDS #### [facility] [address] CO2 [Moles/Vol] 24.3 mmol/L Normal 23.0-27.0 [facility] Comment on above: Performed By: #### C UU, URDS #### [facility] [address] HCO3 (Bld) [Moles/Vol] 22.1 mmol/L Low 23.0-29.0 [facility] Comment on above: Performed By: #### C UU, URDS #### [facility] [address] Respiratory Critical Normal [facility] Comment on above: Result Comment: Crit ical Value called on: 05/17/2023 at 20:39 PERFORMED BY: [place] [address] PATHOLOGIST CYBER SECURITY MANAGER DI CORONEL M.D. Performed By: #### C UU, URDS #### [facility] [address] VBG Draw Site Right Brachial Normal [facility] Comment on above: Performed By: #### C UU, URDS #### [facility] [address] Aspartate aminotransferase [ Enzymatic activity/volume] in Serum or PlasmaOrdered By: Fransico Mendieta on 05-17-2023 AST [Catalytic activity/Vol] 14 U/L Automated erythrocytes count in urine sediment (number/area)Ordered By: Fransico Mendieta on 05-17-2023 RBC Auto (Urine sed) [#/Area] None seen [HPF] 0-4 Automated leukocytes count i n urine sediment (number/area)Ordered By: Fransico Mendieta on 05-17-2023 WBC Auto (Urine sed) [#/Area] 20-49 [HPF] 0-4 Bacterial blood cultureOrder ed By: Fransico Mendieta on 05-17-2023 Bacteria identified Cx Nom (Bld) NO GROWTH 5 DAYS Basic Metabolic Panelon 05-05 Anion gap [Moles/Vol] 8.6 mmol/L Normal 6.0-15.0 [facility] Comment on above: Performed By: #### A BG #### Point of Care testing , Calcium [Mass/Vol] 8.8 mg/dL Normal 8.6-10.3 [facility] Comment on above: Performed By: #### A BG #### Point of Care testing , Chloride [Moles/Vol] 102 mmol/L Normal 98-107 [facility] Comment on above: Performed By: #### A BG #### Point of Care testing , CO2 [Moles/Vol] 26.1 mmol/L Normal 21.0-31.0 [facility] Comment on above: Performed By: #### A BG #### Point of Care testing , Creatinine [Mass/Vol] 5.78 mg/dL High 0.70-1.30 [facility] Comment on above: Performed By: #### A BG #### Point of Care testing , Creatinine Clr Calc Pharmacy 15.56 [facility] Comment on above: Performed By: #### A BG #### Point of Care testing , GFR/1.73 sq M.predicted MDRD (S/P/Bld) [Vol rate/Area] 12.034 mL/min/{1.73_m2} [facility] Comment on above: Performed By: #### A BG #### Point of Care testing , Glucose [Mass/Vol] 105 mg/dL High 70-100 [facility] Comment on above: Result Comment: [facility] Glucose Reference Range is dependent on time and content of last meal. Glucose of more than 200 mg/dL in a nonstressed, ambulatory subject supports the diagnosis of Diabetes Mellitus. ADA recommended reference range Performed By: #### A BG #### Point of Care testing , Potassium [Moles/Vol] 4.7 mmol/L Normal 3.5-5.1 [facility] Comment on above: Performed By: #### A BG #### Point of Care testing , Sodium [Moles/Vol] 132 mmol/L Low 136-145 [facility] Comment on above: Performed By: #### A BG #### Point of Care testing , Urea nitrogen [Mass/Vol] 40 mg/dL High 7-25 Comment on above: Performed By: #### A BG #### Point of Care testing , Basophils Auto (Bld) [#/Vol] Ordered By: Fransico Mendieta on 05-17-2023 Basophils (Bld) [#/Vol] 0.1 10*3/uL 0.0-0.2 Basophils/100 WBC Auto (Bld) Ordered By: Fransico Mendieta on 05-17-2023 Basophils/100 WBC (Bld) 0.8 % . [facility] Bilirubin Test strip Ql (U)O rdered By: Fransico Mendieta on 05-17-2023 Bilirubin Ql (U) Negative Negative [facility] Bilirubin.direct [Mass/volum e] in Serum or PlasmaOrdered By: Fransico Mendieta on 05-17-2023 Bilirubin.direct [Mass/Vol] 0.00 mg/dL 0.03-0.18 Comment on above: If the DBIL is less than 0.1, IBIL is not able to becalculated. Bilirubin.total [Mass/volume ] in Serum or PlasmaOrdered By: Fransico Mendieta on 05-17-2023 Bilirubin [Mass/Vol] 0.3 mg/dL 0.3-1.0 [facility] Blood Cultureon 05-17-2023 Bacteria identified Cx Nom (Bld) NO GROWTH 5 DAYS PERFORMED BY: [place] [address] PATHOLOGIST CYBER SECURITY MANAGER DI CORONEL M.D. [facility] Comment on above: Performed By: #### A BG #### Point of Care testing , Bacteria identified Cx Nom (Bld) NO GROWTH 5 DAYS PERFORMED BY: [place] [address] PATHOLOGIST CYBER SECURITY MANAGER DI CORONEL M.D. [facility] Comment on above: Performed By: #### C UU, URDS #### [address] Calcium [Mass/volume] in Ser um or PlasmaOrdered By: Fransico Mendieta on 05-17-2023 Calcium [Mass/Vol] 8.8 mg/dL 8.6-10.3 [facility] Carbon dioxide, total [Moles /volume] in Serum or PlasmaOrdered By: Fransico Mendieta on 05-17-2023 CO2 [Moles/Vol] 26.1 mmol/L 21.0-31.0 [facility] Chloride [Moles/volume] in S adolph or PlasmaOrdered By: Fransico Mendieta on 05-17-2023 Chloride [Moles/Vol] 102 mmol/L 98-107 [facility] Color Auto (U)Ordered By: Darian Mendieta on 05-17-2023 Color (U) Yellow Yellow Complete Blood Count Auto Di ffon 05-17-2023 Basophils (Bld) [#/Vol] 0.1 10*3/uL Normal 0.0-0.2 Comment on above: Result Comment: PERF ORMED BY: [facility] [place] [address] PATHOLOGIST CYBER SECURITY MANAGER DI CORONEL M.D. Performed By: #### A BG #### Point of Care testing , Basophils/100 WBC (Bld) 0.8 % Normal . [facility] Comment on above: Performed By: #### A BG #### Point of Care testing , Eosinophils (Bld) [#/Vol] 0.4 10*3/uL Normal 0.0-0.45 Comment on above: Performed By: #### A BG #### Point of Care testing , Eosinophils/100 WBC (Bld) 4.0 % Normal . Comment on above: Performed By: #### A BG #### Point of Care testing , Erythrocyte distribution width (RBC) [Ratio] 14.7 % Normal 12.0-14.8 Comment on above: Performed By: #### A BG #### Point of Care testing , Hematocrit (Bld) [Volume fraction] 33.3 % Low 38.8-50.0 Comment on above: Performed By: #### A BG #### Point of Care testing , Hemoglobin (Bld) [Mass/Vol] 10.6 g/dL Low 13.0-17.0 Comment on above: Performed By: #### A BG #### Point of Care testing , Lymphocytes (Bld) [#/Vol] 1.1 10*3/uL Normal 1.00-4.8 Comment on above: Performed By: #### A BG #### Point of Care testing , Lymphocytes/100 WBC (Bld) 9.9 % Normal . Comment on above: Performed By: #### A BG #### Point of Care testing , MCH (RBC) [Entitic mass] 29.9 pg Normal 27.5-35.2 Comment on above: Performed By: #### A BG #### Point of Care testing , MCV (RBC) [Entitic vol] 93.5 fL Normal 83.5-101 [facility] Comment on above: Performed By: #### A BG #### Point of Care testing , Mean Corpuscular HGB Conc 32.0 g/dL Low 32.5-35.6 Comment on above: Performed By: #### A BG #### Point of Care testing , Monocytes (Bld) [#/Vol] 1.5 10*3/uL High 0.0-0.8 Comment on above: Performed By: #### A BG #### Point of Care testing , Monocytes/100 WBC (Bld) 18.65 % Normal 0.00-20.00 [facility] Comment on above: Performed By: #### A BG #### Point of Care testing , Monocytes/100 WBC (Bld) 14.0 % Normal . [facility] Comment on above: Performed By: #### A BG #### Point of Care testing , Neutrophils (Bld) [#/Vol] 7.6 10*3/uL Normal 1.8-7.7 Comment on above: Performed By: #### A BG #### Point of Care testing , Neutrophils/100 WBC (Bld) 71.3 % Normal . Comment on above: Performed By: #### A BG #### Point of Care testing , NRBC% 0.3 /100{WBC} Normal 0-0.5 Comment on above: Performed By: #### A BG #### Point of Care testing , Platelet mean volume (Bld) [Entitic vol] 7.2 fL Normal 6.6-10.1 Comment on above: Performed By: #### A BG #### Point of Care testing , Platelets (Bld) [#/Vol] 266 10*3/uL Normal 150-450 Comment on above: Performed By: #### A BG #### Point of Care testing , RBC (Bld) [#/Vol] 3.56 10*6/uL Low 3.90-5.60 [facility] Comment on above: Performed By: #### A BG #### Point of Care testing , WBC (Bld) [#/Vol] 10.6 10*3/uL High 4.1-10.5 [facility] Comment on above: Performed By: #### A BG #### Point of Care testing , Creatine Kinaseon 05-17-2023 CK [Catalytic activity/Vol] 26 U/L Low 30-223 Comment on above: Performed By: #### A BG #### Point of Care testing , Creatine kinase [Enzymatic a ctivity/volume] in Serum or PlasmaOrdered By: Fransico Mendieta on 05-17-2023 CK [Catalytic activity/Vol] 26 U/L 30-223 Creatinine [Mass/volume] in Serum or PlasmaOrdered By: Fransico Mendieta on 05-17-2023 Creatinine [Mass/Vol] 5.78 mg/dL 0.70-1.30 [facility] Dipstick and Microscopicon 0 05-17-2023 Appearance (U) Clear Normal Clear Comment on above: Order Comment: Name Collection Type:: Clean-Voided Midstream Performed By: #### A BG #### Point of Care testing , Bacteria,Urine None Seen Normal None Seen Comment on above: Order Comment: Name Collection Type:: Clean-Voided Midstream Performed By: #### A BG #### Point of Care testing , Bilirubin,Urine Negative Normal Negative Comment on above: Order Comment: Name Collection Type:: Clean-Voided Midstream Performed By: #### A BG #### Point of Care testing , Color (U) Yellow Normal Yellow Comment on above: Order Comment: Name Collection Type:: Clean-Voided Midstream Performed By: #### A BG #### Point of Care testing , Glucose Ql (U) Normal Normal Normal Comment on above: Order Comment: Name Collection Type:: Clean-Voided Midstream Performed By: #### A BG #### Point of Care testing , Hyaline Casts,Urine None Seen Normal 0-8 [facility] Comment on above: Order Comment: Name Collection Type:: Clean-Voided Midstream Result Comment: PERF ORMED BY: [address] [place] [address] PATHOLOGIST CYBER SECURITY MANAGER DI CORONEL M.D. Performed By: #### A BG #### Point of Care testing , Ketones Ql (U) Negative Normal Negative Comment on above: Order Comment: Name Collection Type:: Clean-Voided Midstream Performed By: #### A BG #### Point of Care testing , Leukocyte esterase Test strip Ql (U) Negative Normal Negative Comment on above: Order Comment: Name Collection Type:: Clean-Voided Midstream Performed By: #### A BG #### Point of Care testing , Nitrite,Urine Negative Normal Negative Comment on above: Order Comment: Name Collection Type:: Clean-Voided Midstream Performed By: #### A BG #### Point of Care testing , Occult Blood,Urine Negative Normal Negative [facility] Comment on above: Order Comment: Name Collection Type:: Clean-Voided Midstream Result Comment: PERF ORMED BY: [address] [place] [address] PATHOLOGIST CYBER SECURITY MANAGER DI CORONEL M.D. Performed By: #### A BG #### Point of Care testing , pH (U) 6.0 [pH] Normal 5.0-9.0 Comment on above: Order Comment: Name Collection Type:: Clean-Voided Midstream Performed By: #### A BG #### Point of Care testing , Protein,Urine Trace High Negative Comment on above: Order Comment: Name Collection Type:: Clean-Voided Midstream Performed By: #### A BG #### Point of Care testing , RBC,Urine None Seen Normal 0-4 Comment on above: Order Comment: Name Collection Type:: Clean-Voided Midstream Performed By: #### A BG #### Point of Care testing , Specificy [place],Urine 1.006 Normal 1.00 1-1.03 0 Comment on above: Order Comment: Name Collection Type:: Clean-Voided Midstream Performed By: #### A BG #### Point of Care testing , Squamous Epithelial Cell,Urine None Seen Normal 0-2 Comment on above: Order Comment: Name Collection Type:: Clean-Voided Midstream Performed By: #### A BG #### Point of Care testing , Urobilinogen,Urine Normal Normal Normal [facility] Comment on above: Order Comment: Name Collection Type:: Clean-Voided Midstream Performed By: #### A BG #### Point of Care testing , WBC,Urine 20-49 High 0-4 Comment on above: Order Comment: Name Collection Type:: Clean-Voided Midstream Performed By: #### A BG #### Point of Care testing , ECG 12 lead ECGon 05-17-2023 ECG 12 lead ECG [facility] [place] [address] Electrocardiograph Report Signed Patient: Ruddy Palmer MR#: [id number] 9 : 1985 Acct:[id number] Age/Sex: 37 / M ADM Date: 05/17/23 Loc: ER Room: Type: [facility] ER Attending Dr: Ordering Provider: Fransico [...] was found Confirmed by Layton Becerra DO ([id number]) on 05/17/2023 7:33:34 PM Referred By: Electronically Signed By:Layton Becerra DO Transcribed By: MUS Signed By Layton Becerra DO 3 [phone] Normal Eosinophils Auto (Bld) [#/Vo l]Ordered By: Fransico Mendieta on 05-17-2023 Eosinophils (Bld) [#/Vol] 0.4 10*3/uL 0.0-0.45 Eosinophils/100 WBC Auto (Bl d)Ordered By: Fransico Mendieta on 05-17-2023 Eosinophils/100 WBC (Bld) 4.0 % . Erythrocyte distribution wid th Auto (RBC) [Ratio]Ordered By: Fransico Mendieta on 05-17-2023 Erythrocyte distribution width (RBC) [Ratio] 14.7 % 12.0-14.8 Globulin Calc (S) [Mass/Vol] Ordered By: Fransico Mendieta on 05-17-2023 Globulin (S) [Mass/Vol] 2.3 g/dL [facility] Glucose [Mass/volume] in Ser um or PlasmaOrdered By: Fransico Mendieta on 05-17-2023 Glucose [Mass/Vol] 105 mg/dL 70-100 [facility] Comment on above: ADA recommended refe rence rangeRandom Glucose Reference Range is dependent on time and content of last meal. Glucose of more than 200 mg/dL in a nonstressed, ambulatory subject supports the diagnosis of Diabetes Mellitus. Hematocrit Auto (Bld) [Volum e fraction]Ordered By: Fransico Mendieta on 05-17-2023 Hematocrit (Bld) [Volume fraction] 33.3 % 38.8-50.0 Hemoglobin [Mass/volume] in BloodOrdered By: Fransico Mendieta on 05-17-2023 Hemoglobin (Bld) [Mass/Vol] 10.6 g/dL 13.0-17.0 Hepatic Panelon 05-17-2023 Albumin [Mass/Vol] 3.5 g/dL Normal 3.5-5.7 [facility] Comment on above: Performed By: #### A BG #### Point of Care testing , Albumin/Globulin [Mass ratio] 1.5 {ratio} Normal Comment on above: Performed By: #### A BG #### Point of Care testing , ALP [Catalytic activity/Vol] 100 U/L Normal 34-104 Comment on above: Performed By: #### A BG #### Point of Care testing , ALT [Catalytic activity/Vol] 10 U/L Normal 7-52 Comment on above: Performed By: #### A BG #### Point of Care testing , AST [Catalytic activity/Vol] 14 U/L Normal 13-39 Comment on above: Performed By: #### A BG #### Point of Care testing , Bilirubin [Mass/Vol] 0.3 mg/dL Normal 0.3-1.0 [facility] Comment on above: Performed By: #### A BG #### Point of Care testing , Bilirubin,Indirect 0.3 mg/dL Normal [facility] Comment on above: Performed By: #### A BG #### Point of Care testing , Bilirubin.indirect [Mass/Vol] 0.00 mg/dL Low 0.03-0.18 Comment on above: Result Comment: If t he DBIL is less than 0.1, IBIL is not able to be calculated. Performed By: #### A BG #### Point of Care testing , Globulin (S) [Mass/Vol] 2.3 g/dL Normal [facility] Comment on above: Performed By: #### A BG #### Point of Care testing , Protein [Mass/Vol] 5.8 g/dL Low 6.4-8.9 [facility] Comment on above: Performed By: #### A BG #### Point of Care testing , Ketones Auto test strip (U) [Mass/Vol]Ordered By: Fransico Mendieta on 05-17-2023 Ketones (U) [Mass/Vol] Negative Negative Fi [facility] Laboratory - Chemistry and C hemistry - challengeOrdered By: Fransico Mendieta on 05-17-2023 CO2 [Moles/Vol] 24.3 mmol/L 23.0-27.0 [facility] HCO3 (Bld) [Moles/Vol] 22.1 mmol/L 23.0-29.0 [facility] Laboratory - UrinalysisOrder ed By: Fransico Mendieta on 05-17-2023 Hyaline casts LM Ql (Urine sed) None seen [LPF] 0-8 Leukocytes [#/volume] correc radha for nucleated erythrocytes in Blood by Automated counOrdered By: Fransico Mendieta on 05-17-2023 WBC corrected for nucl RBC Auto (Bld) [#/Vol] 10.6 10*3/uL 4.1-10.5 Lipaseon 05-17-2023 Lipase [Catalytic activity/Vol] 32.0 U/L Normal 11.0-82.0 Comment on above: Result Comment: PERF ORMED BY: [facility] [address] [place] [address] PATHOLOGIST CYBER SECURITY MANAGER ID CORONEL M.D. Performed By: #### A BG #### Point of Care testing , Lipase [Enzymatic activity/v olume] in Serum or PlasmaOrdered By: Fransico Mendieta on 05-17-2023 Lipase [Catalytic activity/Vol] 32.0 U/L 11.0-82.0 Lymphocytes Auto (Bld) [#/Vo l]Ordered By: Fransico Mendieta on 05-17-2023 Lymphocytes (Bld) [#/Vol] 1.1 10*3/uL 1.00-4.8 Lymphocytes/100 WBC Auto (Bl d)Ordered By: Fransico Mendieta on 05-17-2023 Lymphocytes/100 WBC (Bld) 9.9 % . MCH Auto (RBC) [Entitic mass ]Ordered By: Fransico Mendieta on 05-17-2023 MCH (RBC) [Entitic mass] 29.9 pg 27.5-35.2 MCHC Auto (RBC) [Mass/Vol]Or dered By: Fransico Mendieta on 05-17-2023 MCHC (RBC) [Mass/Vol] 32.0 g/dL 32.5-35.6 [facility] MCV Auto (RBC) [Entitic vol] Ordered By: Fransico Mendieta on 05-17-2023 MCV (RBC) [Entitic vol] 93.5 fL 83.5-101 [facility] Monocyte distribution width [Entitic volume] in Blood by AutomatedOrdered By: Fransico Mendieta on 05-17-2023 Monocyte distribution width Auto (Bld) [Entitic vol] 18.65 % 0.00-20.00 Monocytes Auto (Bld) [#/Vol] Ordered By: Fransico Mendieta on 05-17-2023 Monocytes (Bld) [#/Vol] 1.5 10*3/uL 0.0-0.8 Monocytes/100 WBC Auto (Bld) Ordered By: Fransico Mendieta on 05-17-2023 Monocytes/100 WBC (Bld) 14.0 % . [facility] Neutrophils Auto (Bld) [#/Vo l]Ordered By: Fransico Mendieta on 05-17-2023 Neutrophils (Bld) [#/Vol] 7.6 10*3/uL 1.8-7.7 Neutrophils/100 WBC Auto (Bl d)Ordered By: Fransico Mendieta on 05-17-2023 Neutrophils/100 WBC (Bld) 71.3 % . Nitrite Test strip Ql (U)Ord ered By: Fransico Mendieta on 05-17-2023 Nitrite Ql (U) Negative Negative No Panel InformationOrdered By: Fransico Mendieta on 05-17-2023 Arterial Blood Base Excess -8.0 mmol/L -3.0-3.0 Arterial Blood Oxygen Content 6.8 mmol/L 6.6-9.7 Arterial Blood Oxygen Saturation 95.3 % 95.0-100.0 Arterial Blood Partial Pressure CO2 70.8 mm[Hg] 35.0-45.0 Arterial Blood Partial Pressure O2 79.9 mm[Hg] 80.0-100.0 Arterial Blood pH 7.11 7.35-7.45 [facility] Blood Gas Critical Value See comment Comment on above: Critical Value sainz d on: 05/17/2023 at 20:39 Blood Gas Sample Site Right brachial FiO2 28 % Estimated GFR (CKD-EPI) 12.034 mL/Min Pharmacy Creatinine Clearance (Chem 15.56 Nucleated erythrocytes [Pres ence] in Blood by Automated countOrdered By: Fransico Mendieta on 05-17-2023 Nucleated RBC Auto Ql (Bld) 0.3 /100{WBC} 0-0.5 Platelet mean volume Auto (B ld) [Entitic vol]Ordered By: Fransico Mendieta on 05-17-2023 Platelet mean volume (Bld) [Entitic vol] 7.2 fL 6.6-10.1 Platelets Auto (Bld) [#/Vol] Ordered By: Fransico Mendieta on 05-17-2023 Platelets (Bld) [#/Vol] 266 10*3/uL 150-450 Potassium [Moles/volume] in Serum or PlasmaOrdered By: Fransico Mendieta on 05-17-2023 Potassium [Moles/Vol] 4.7 mmol/L 3.5-5.1 [facility] Protein Auto test strip (U) [Mass/Vol]Ordered By: Fransico Mendieta on 05-17-2023 Protein (U) [Mass/Vol] Trace mg/dL Negative [facility] Protein [Mass/volume] in Ser um or PlasmaOrdered By: Fransico Mendieta on 05-17-2023 Protein [Mass/Vol] 5.8 g/dL 6.4-8.9 [facility] RBC Auto (Bld) [#/Vol]Ordere d By: Fransico Mendieta on 05-17-2023 RBC (Bld) [#/Vol] 3.56 10*6/uL 3.90-5.60 [facility] Serum or plasma albumin/glob ulin mass ratioOrdered By: Fransico Mendieta on 05-17-2023 Albumin/Globulin [Mass ratio] 1.5 {ratio} Serum or plasma anion gap de terminationOrdered By: Fransico Mendieta on 05-17-2023 Anion gap [Moles/Vol] 8.6 mmol/L 6.0-15.0 [facility] Serum or plasma non-glucuron idated bilirubin measurement (mass/volume)Ordered By: Fransico Mendieta on 05-17-2023 Bilirubin.indirect [Mass/Vol] 0.3 mg/dL Sodium [Moles/volume] in Ser um or PlasmaOrdered By: Fransico Mendieta on 05-17-2023 Sodium [Moles/Vol] 132 mmol/L 136-145 [facility] Specific gravity Auto test s trip (U) [Rel density]Ordered By: Fransico Mendieta on 05-17-2023 Specific gravity (U) [Rel density] 1.006 1.001-1.03 0 Squamous epithelial cells de tection in urine sediment by light microscopyOrdered By: Fransico Mendieta on 05-17-2023 Epithelial cells.squamous LM Ql (Urine sed) None seen [HPF] 0-2 Troponin I High Sensitivityo n 05-17-2023 Troponin I High Sensitivity 10.8 pg/mL Normal 0.0-20.0 Comment on above: Result Comment: PERF ORMED BY: [facility] [address] [place] [address] PATHOLOGIST CYBER SECURITY MANAGER DI CORONEL M.D. Performed By: #### A BG #### Point of Care testing , Troponin I.cardiac [Mass/vol ume] in Serum or Plasma by Detection limit <= 0.01 ng/Ordered By: Fransico Mendieta on 05-17-2023 Troponin I.cardiac DL <= 0.01 ng/mL [Mass/Vol] 10.8 pg/mL 0.0-20.0 Type and Screenon 09-13-2023 ABO and Rh group Nom (Bld) Blood group A Rh(D) positive Normal Comment on above: Result Comment: PERF ORMED BY: [place] [address] PATHOLOGIST CYBER SECURITY MANAGER DI CORONEL M.D. Urea nitrogen [Mass/volume] in Serum or PlasmaOrdered By: Fransico Mendieta on 05-17-2023 Urea nitrogen [Mass/Vol] 40 mg/dL 7 Urine bacteria detection by automated methodOrdered By: Fransico Mendieta on 05-17-2023 Bacteria Auto Ql (U) None seen None Seen [facility] Urine clarity by refractomet ry automatedOrdered By: Fransico Mendieta on 05-17-2023 Clarity Refractometry automated (U) Clear Clear Urine glucose measurement by automated test strip (mass/volume)Ordered By: Fransico Mendieta on 05-17-2023 Glucose Auto test strip (U) [Mass/Vol] Normal mg/dL Normal Urine hemoglobin detection b y automated test stripOrdered By: Fransico Mendieta on 05-17-2023 Hemoglobin Auto test strip Ql (U) Negative Negative Urine leukocyte esterase det ection by automated test stripOrdered By: Fransico Mendieta on 05-17-2023 Leukocyte esterase Auto test strip Ql (U) Negative Negative Urobilinogen Auto test strip (U) [Mass/Vol]Ordered By: Fransico Mendieta on 05-17-2023 Urobilinogen (U) [Mass/Vol] Normal mg/dL Normal WBC Auto (Bld) [#/Vol]Ordere d By: Fransico Mendieta on 05-17-2023 WBC (Bld) [#/Vol] 10.6 10*3/uL 4.1-10.5 [facility] XR chest 1V portableon 05-17 XR chest 1V portable [facility] Main [address] [address] XRay Report Signed Patient: Ruddy Palmer MR#: [id number] 9 : 1985 Acct:[id number] Age/Sex: 37 / M ADM Date: 05/17/23 Loc: ER Room: Type: [facility] ER Attending Dr: Copies to: Fransico [...] Holli Alfonso M.D.05/17/2023 4:43 PM Dictation Location: [place] [address] Transcribed By: [facility] 05/17/23 164 Dictated By: Holli Alfonso MD 05/17/23 1638 Signed By: 05/17/23 1643 [facility] pH Auto test strip (U)Ordere d By: Fransico Mendieta on 05-17-2023 pH (U) 6.0 [pH] 5.0-9.0 Basic Metabolic Panelon Creatinine Clr Calc Pharmacy 13.53 [facility] Comment on above: Result Comment: PERF ORMED BY: [place] [address] PATHOLOGIST CYBER SECURITY MANAGER DI CORONEL M.D. Performed By: #### C UU, URDS #### [facility] [address] [place] [address] [place] GFR/1.73 sq M.predicted MDRD (S/P/Bld) [Vol rate/Area] 9.403 mL/min/{1.73_m2} [facility] Comment on above: Performed By: #### C UU, URDS #### [facility] [address] [place], [place] [id number] [place] Calcium [Mass/volume] in Ser um or PlasmaOrdered By: Obaydah Daromar on 05-12-2023 Calcium [Mass/Vol] 8.4 mg/dL Low 8.6-10.3 [facility] Comment on above: Performed By: #### C UU, URDS #### [facility] [address] [place] [address] Carbon dioxide, total [Moles /volume] in Serum or PlasmaOrdered By: Obaydah Daromar on 05-12-2023 CO2 [Moles/Vol] 22.4 mmol/L Normal 21.0-31.0 [facility] Comment on above: Performed By: #### C UU, URDS #### [facility] [address] [place] [address] Chloride [Moles/volume] in S adolph or PlasmaOrdered By: Obaydah Daromar on 05-12-2023 Chloride [Moles/Vol] 99 mmol/L Normal 98-107 [facility] Comment on above: Performed By: #### C UU, URDS #### [facility] [address] [place] [address] Creatinine [Mass/volume] in Serum or PlasmaOrdered By: Obaydah Daromar on 05-12-2023 Creatinine [Mass/Vol] 7.10 mg/dL High 0.70-1.30 [facility] Comment on above: Performed By: #### C UU, URDS #### [facility] [address] [place] [address] [place] Erythrocyte distribution wid th [Ratio] by Automated countOrdered By: Obarlenedah Daromar on 05-12-2023 Erythrocyte distribution width (RBC) [Ratio] 14.8 % Normal 12.0-14.8 Comment on above: Performed By: #### C UU, URDS #### [facility] [address] [place] [address] [place] Erythrocytes [#/volume] in B lood by Automated countOrdered By: Obarlenedah Daromar on 05-12-2023 RBC (Bld) [#/Vol] 3.50 10*6/uL Low 3.90-5.60 [facility] Comment on above: Performed By: #### C YEIMY AGARWAL #### [facility] [address] Glucose [Mass/volume] in Ser um or PlasmaOrdered By: Michael Hindsr on 05-12-2023 Glucose [Mass/Vol] 96 mg/dL Normal 70-100 [facility] Comment on above: ADA recommended refe rence rangeRandom Glucose Reference Range is dependent on time and content of last meal. Glucose of more than 200 mg/dL in a nonstressed, ambulatory subject supports the diagnosis of Diabetes Mellitus. Result Comment: [facility] Glucose Reference Range is dependent on time and content of last meal. Glucose of more than 200 mg/dL in a nonstressed, ambulatory subject supports the diagnosis of Diabetes Mellitus. ADA recommended reference range Performed By: #### C STEFANO, URJACQUELYN #### [facility] [address] Hematocrit [Volume Fraction] of Blood by Automated countOrdered By: Michael Gonzalez on 05-12-2023 Hematocrit (Bld) [Volume fraction] 31.9 % Significant change down 38.8-50.0 Comment on above: Delta: 22.2 on 05/11-1430 Performed By: #### C STEFANO, URDS #### [facility] [address] Hemoglobin [Mass/volume] in BloodOrdered By: Michael Gonzalez on 05-12-2023 Hemoglobin (Bld) [Mass/Vol] 10.6 g/dL Low 13.0-17.0 Comment on above: Performed By: #### C STEFANO, URDS #### [facility] [address] Hemogram CBC Without Diffon 05-12-2023 Mean Corpuscular HGB Conc 33.2 g/dL Normal 32.5-35.6 Comment on above: Performed By: #### C UU, URDS #### [facility] [address] WBC (Bld) [#/Vol] 9.1 10*3/uL Normal 4.1-10.5 [facility] Comment on above: Performed By: #### C UU, URDS #### [facility] [address] Leukocytes [#/volume] correc radha for nucleated erythrocytes in Blood by Automated counOrdered By: Michael Willardomar on 05-12-2023 WBC corrected for nucl RBC Auto (Bld) [#/Vol] 9.1 10*3/uL 4.1-10.5 MCH [Entitic mass] by Automa radha countOrdered By: Michael Hindsr on 05-12-2023 MCH (RBC) [Entitic mass] 30.3 pg Normal 27.5-35.2 Comment on above: Performed By: #### C UU, URDS #### [address] MCHC Auto (RBC) [Mass/Vol]Or dered By: Michael Willardomar on 05-12-2023 MCHC (RBC) [Mass/Vol] 33.2 g/dL 32.5-35.6 [facility] MCV [Entitic volume] by Auto mated countOrdered By: Michael Gonzalez on 05-12-2023 MCV (RBC) [Entitic vol] 91.1 fL Normal 83.5-101 [facility] Comment on above: Performed By: #### C UU, URDS #### [facility] [address] [place] [address] No Panel InformationOrdered By: Michael Gonzalez on 05-12-2023 Estimated GFR (CKD-EPI) 9.403 mL/Min Pharmacy Creatinine Clearance (Chem 13.53 Platelet mean volume [Entiti c volume] in Blood by Automated countOrdered By: Michael Hindsr on 05-12-2023 Platelet mean volume (Bld) [Entitic vol] 7.6 fL Normal 6.6-10.1 Comment on above: Result Comment: PERF ORMED BY: [place] [address] PATHOLOGIST CYBER SECURITY MANAGER DI CORONEL M.D. Performed By: #### C UU, URDS #### [facility] [address] [place] [address] [place] Platelets [#/volume] in Bloo d by Automated countOrdered By: Obaydah Daromar on 05-12-2023 Platelets (Bld) [#/Vol] 300 10*3/uL Normal 150-450 Comment on above: Performed By: #### C UU, URDS #### [address] Potassium [Moles/volume] in Serum or PlasmaOrdered By: Obaydah Daromar on 05-12-2023 Potassium [Moles/Vol] 4.2 mmol/L Normal 3.5-5.1 [facility] Comment on above: Performed By: #### C UU, URDS #### [address] Serum or plasma anion gap de terminationOrdered By: Obaydah Daromar on 05-12-2023 Anion gap [Moles/Vol] 15.8 mmol/L High 6.0-15.0 [facility] Comment on above: Performed By: #### C UU, URDS #### [facility] [address] [place] [address] [place] Sodium [Moles/volume] in Ser um or PlasmaOrdered By: Obaydah Daromar on 05-12-2023 Sodium [Moles/Vol] 133 mmol/L Low 136-145 [facility] Comment on above: Performed By: #### C UU, URDS #### [facility] [address] [place] [address] [place] Urea nitrogen [Mass/volume] in Serum or PlasmaOrdered By: Obaydah Daromar on 05-12-2023 Urea nitrogen [Mass/Vol] 86 mg/dL High 7-25 Comment on above: Performed By: #### C STEFANO URJACQUELYN #### [facility] [address] Basic Metabolic Panelon Anion gap [Moles/Vol] 14.3 mmol/L Normal 6.0-15.0 [facility] Comment on above: Performed By: #### C UBernarda, URDS #### [facility] [address] Calcium [Mass/Vol] 8.3 mg/dL Low 8.6-10.3 [facility] Comment on above: Performed By: #### C STEFANO URDS #### [address] Chloride [Moles/Vol] 99 mmol/L Normal 98-107 [facility] Comment on above: Performed By: #### C UBernarda, URDS #### [address] CO2 [Moles/Vol] 22.0 mmol/L Normal 21.0-31.0 [facility] Comment on above: Performed By: #### C STEFANO URJACQUELYN #### [address] Creatinine [Mass/Vol] 6.83 mg/dL Significan t change up 0.70-1.30 Comment on above: Performed By: #### C UU, URDS #### [address] Creatinine Clr Calc Pharmacy 13.57 Normal Comment on above: Result Comment: PERF ORMED BY: [place] [address] PATHOLOGIST CYBER SECURITY MANAGER DI CORONEL M.D. Performed By: #### C UU, URDS #### [address] GFR/1.73 sq M.predicted MDRD (S/P/Bld) [Vol rate/Area] 9.850 mL/min/{1.73_m2} Normal Comment on above: Performed By: #### C UU, URDS #### [facility] [address] Glucose [Mass/Vol] 93 mg/dL Normal 70-100 [facility] Comment on above: Result Comment: [facility] Glucose Reference Range is dependent on time and content of last meal. Glucose of more than 200 mg/dL in a nonstressed, ambulatory subject supports the diagnosis of Diabetes Mellitus. ADA recommended reference range Performed By: #### C UU, URDS #### [facility] [address] Potassium [Moles/Vol] 4.3 mmol/L Normal 3.5-5.1 [facility] Comment on above: Performed By: #### C UU, URDS #### [address] Sodium [Moles/Vol] 131 mmol/L Low 136-145 [facility] Comment on above: Performed By: #### C UU, URDS #### [address] Urea nitrogen [Mass/Vol] 80 mg/dL High 7-25 Comment on above: Performed By: #### C UU, URDS #### [address] Hemoglobin and Hematocriton 05-11-2023 Hematocrit (Bld) [Volume fraction] 22.2 % Low 38.8-50.0 Comment on above: Result Comment: PERF ORMED BY: [place] [address] PATHOLOGIST CYBER SECURITY MANAGER DI CORONEL M.D. Performed By: #### C UU, URDS #### [address] Hemoglobin (Bld) [Mass/Vol] 7.3 g/dL Low 13.0-17.0 Comment on above: Performed By: #### C UU, URDS #### [address] Hemogram CBC Without Diffon 05-11-2023 Erythrocyte distribution width (RBC) [Ratio] 14.6 % Normal 12.0-14.8 Comment on above: Performed By: #### C UU, URDS #### [address] Hematocrit (Bld) [Volume fraction] 24.8 % Low 38.8-50.0 Comment on above: Performed By: #### C UU, URDS #### [address] Hemoglobin (Bld) [Mass/Vol] 8.1 g/dL Low 13.0-17.0 Comment on above: Performed By: #### C UU, URDS #### [address] MCH (RBC) [Entitic mass] 30.5 pg Normal 27.5-35.2 Comment on above: Performed By: #### C UU, URDS #### [address] MCV (RBC) [Entitic vol] 93.4 fL Normal 83.5-101 [facility] Comment on above: Performed By: #### C UU, URDS #### [address] Mean Corpuscular HGB Conc 32.7 g/dL Normal 32.5-35.6 Comment on above: Performed By: #### C UU, URDS #### [address] Platelet mean volume (Bld) [Entitic vol] 7.3 fL Normal 6.6-10.1 Comment on above: Result Comment: PERF ORMED BY: [place] [address] PATHOLOGIST CYBER SECURITY MANAGER DI CORONEL M.D. Performed By: #### C UU, URDS #### [facility] [address] Platelets (Bld) [#/Vol] 350 10*3/uL Normal 150-450 Comment on above: Performed By: #### C UU, URDS #### [facility] [address] RBC (Bld) [#/Vol] 2.65 10*6/uL Low 3.90-5.60 [facility] Comment on above: Performed By: #### C UU, URDS #### [facility] [address] WBC (Bld) [#/Vol] 10.4 10*3/uL Normal 4.1-10.5 [facility] Comment on above: Performed By: #### C UU, URDS #### [facility] [address] Alanine aminotransferase [En zymatic activity/volume] in Serum or PlasmaOrdered By: Obaydah Daromar on 05-10-2023 ALT [Catalytic activity/Vol] 12 U/L 7-52 Albumin [Mass/volume] in Ser um or Plasma by Bromocresol green (BCG) dye binding methoOrdered By: Obaydah Daromar on 05-10-2023 Albumin BCG dye [Mass/Vol] 3.2 g/dL 3.5-5.7 Alkaline phosphatase [Enzyma tic activity/volume] in Serum or PlasmaOrdered By: Obaydah Daromar on 05-10-2023 ALP [Catalytic activity/Vol] 90 U/L 34-104 Aspartate aminotransferase [ Enzymatic activity/volume] in Serum or PlasmaOrdered By: Obaydah Daromar on 05-10-2023 AST [Catalytic activity/Vol] 11 U/L 13-39 Basophils Auto (Bld) [#/Vol] Ordered By: Obaydah Daromar on 05-10-2023 Basophils (Bld) [#/Vol] 0.0 10*3/uL 0.0-0.2 Basophils/100 WBC Auto (Bld) Ordered By: Michael Gonzalez on 05-10-2023 Basophils/100 WBC (Bld) 0.3 % . [facility] Bilirubin.total [Mass/volume ] in Serum or PlasmaOrdered By: Michael Gonzalez on 05-10-2023 Bilirubin [Mass/Vol] 0.5 mg/dL 0.3-1.0 [facility] Complete Blood Count Auto Di ffon 05-10-2023 Basophils (Bld) [#/Vol] 0.0 10*3/uL Normal 0.0-0.2 Comment on above: Result Comment: PERF ORMED BY: [place] [address] PATHOLOGIST CYBER SECURITY MANAGER DI CORONEL M.D. Performed By: #### C UU, URDS #### [address] Basophils/100 WBC (Bld) 0.3 % Normal . [facility] Comment on above: Performed By: #### C UU, URDS #### [address] Eosinophils (Bld) [#/Vol] 0.3 10*3/uL Normal 0.0-0.45 Comment on above: Performed By: #### C UU, URDS #### [place] [address] [place] Eosinophils/100 WBC (Bld) 3.7 % Normal . Comment on above: Performed By: #### C UU, URDS #### [address] Erythrocyte distribution width (RBC) [Ratio] 14.8 % Normal 12.0-14.8 Comment on above: Performed By: #### C UU, URDS #### [place] [address] [place] Hematocrit (Bld) [Volume fraction] 28.4 % Low 38.8-50.0 Comment on above: Performed By: #### C UU, URDS #### [facility] [address] Hemoglobin (Bld) [Mass/Vol] 9.2 g/dL Low 13.0-17.0 Comment on above: Performed By: #### C UU, URDS #### [address] Lymphocytes (Bld) [#/Vol] 1.2 10*3/uL Normal 1.00-4.8 Comment on above: Performed By: #### C STEFANO, URDS #### [address] Lymphocytes/100 WBC (Bld) 13.4 % Normal . Comment on above: Performed By: #### C STEFANO, URDS #### [address] MCH (RBC) [Entitic mass] 30.7 pg Normal 27.5-35.2 Comment on above: Performed By: #### C STEFANO, URDS #### [address] MCV (RBC) [Entitic vol] 94.9 fL Normal 83.5-101 [facility] Comment on above: Performed By: #### C BernardaU, URDS #### [address] Mean Corpuscular HGB Conc 32.4 g/dL Low 32.5-35.6 Comment on above: Performed By: #### C UU, URDS #### [address] Monocytes (Bld) [#/Vol] 0.8 10*3/uL Normal 0.0-0.8 Comment on above: Performed By: #### C BernardaU, URDS #### [facility] [address] [place] [address] [place] Monocytes/100 WBC (Bld) 9.0 % Normal . [facility] Comment on above: Performed By: #### C UU, URDS #### [facility] [address] Neutrophils (Bld) [#/Vol] 6.8 10*3/uL Normal 1.8-7.7 Comment on above: Performed By: #### C UU, URDS #### [facility] [address] Neutrophils/100 WBC (Bld) 73.6 % Normal . Comment on above: Performed By: #### C UU, URDS #### [facility] [address] NRBC% 0.1 /100{WBC} Normal 0-0.5 Comment on above: Performed By: #### C UU, URDS #### [facility] [address] Platelet mean volume (Bld) [Entitic vol] 7.7 fL Normal 6.6-10.1 Comment on above: Performed By: #### C UU, URDS #### [facility] [address] [place] [address] [place] Platelets (Bld) [#/Vol] 350 10*3/uL Normal 150-450 Comment on above: Performed By: #### C UU, URDS #### [facility] [address] [place] [address] [place] RBC (Bld) [#/Vol] 2.99 10*6/uL Low 3.90-5.60 [facility] Comment on above: Performed By: #### C UU, URDS #### [facility] [address] [place] [address] [place] WBC (Bld) [#/Vol] 9.2 10*3/uL Normal 4.1-10.5 [facility] Comment on above: Performed By: #### C UU, URDS #### [facility] [address] Comprehensive Metabolic Pane clara 05-10-2023 Albumin [Mass/Vol] 3.2 g/dL Low 3.5-5.7 [facility] Comment on above: Performed By: #### C UU, URDS #### [facility] [address] Albumin/Globulin [Mass ratio] 1.4 {ratio} Normal Comment on above: Performed By: #### C UU, URDS #### [facility] [address] ALP [Catalytic activity/Vol] 90 U/L Normal 34-104 Comment on above: Performed By: #### C UU, URDS #### [facility] [address] ALT [Catalytic activity/Vol] 12 U/L Normal 7-52 Comment on above: Performed By: #### C UU, URDS #### [facility] [address] Anion gap [Moles/Vol] 14.7 mmol/L Normal 6.0-15.0 [facility] Comment on above: Performed By: #### C UU, URDS #### [facility] [address] AST [Catalytic activity/Vol] 11 U/L Low 13-39 Comment on above: Performed By: #### C UU, URDS #### [facility] [address] Bilirubin [Mass/Vol] 0.5 mg/dL Normal 0.3-1.0 [facility] Comment on above: Performed By: #### C UU, URDS #### [facility] [address] Calcium [Mass/Vol] 8.2 mg/dL Low 8.6-10.3 [facility] Comment on above: Performed By: #### C UU, URDS #### [facility] [address] [place] [address] [place] Chloride [Moles/Vol] 99 mmol/L Normal 98-107 [facility] Comment on above: Performed By: #### C UU, URDS #### [facility] [address] [place] [address] [place] CO2 [Moles/Vol] 22.2 mmol/L Normal 21.0-31.0 [facility] Comment on above: Performed By: #### C UU, URDS #### [facility] [address] Creatinine [Mass/Vol] 5.62 mg/dL Significan t change up 0.70-1.30 Comment on above: Performed By: #### C UU, URDS #### [facility] [address] Creatinine Clr Calc Pharmacy 16.49 [facility] Comment on above: Performed By: #### C UU, URDS #### [facility] [address] [place] [address] [place] GFR/1.73 sq M.predicted MDRD (S/P/Bld) [Vol rate/Area] 12.447 mL/min/{1.73_m2} Normal [facility] Comment on above: Performed By: #### C UU, URDS #### [facility] [address] [place] [address] [place] Globulin (S) [Mass/Vol] 2.3 g/dL Normal [facility] Comment on above: Performed By: #### C UU, URDS #### [facility] [address] [place] [address] [place] Glucose [Mass/Vol] 89 mg/dL Normal 70-100 [facility] Comment on above: Result Comment: Center Glucose Reference Range is dependent on time and content of last meal. Glucose of more than 200 mg/dL in a nonstressed, ambulatory subject supports the diagnosis of Diabetes Mellitus. ADA recommended reference range Performed By: #### C UU, URDS #### [facility] [address] [place] [address] [place] Potassium [Moles/Vol] 4.9 mmol/L Normal 3.5-5.1 [facility] Comment on above: Performed By: #### C UU, URDS #### [facility] [address] Protein [Mass/Vol] 5.5 g/dL Low 6.4-8.9 [facility] Comment on above: Performed By: #### C UU, URDS #### [facility] [address] Sodium [Moles/Vol] 131 mmol/L Low 136-145 [facility] Comment on above: Performed By: #### C UU, URDS #### [facility] [address] Urea nitrogen [Mass/Vol] 69 mg/dL High 7-25 Comment on above: Performed By: #### C UU, URDS #### [facility] [address] [place] [address] [place] Eosinophils Auto (Bld) [#/Vo l]Ordered By: Michael Gonzalez on 05-10-2023 Eosinophils (Bld) [#/Vol] 0.3 10*3/uL 0.0-0.45 Eosinophils/100 WBC Auto (Bl d)Ordered By: Michael Gonzalez on 05-10-2023 Eosinophils/100 WBC (Bld) 3.7 % . Globulin Calc (S) [Mass/Vol] Ordered By: Michael Gonzalez on 05-10-2023 Globulin (S) [Mass/Vol] 2.3 g/dL [facility] INR in Platelet poor plasma by Coagulation assayOrdered By: Michael Gonzalez on 05-10-2023 INR Coag (PPP) [Relative time] 0.9 {INR} Comment on above: INR Therapeutic Rang e [...] PT Coag (PPP) [Time] 10.7 s 9.0-12.9 [facility] Lymphocytes Auto (Bld) [#/Vo l]Ordered By: Michael Gonzalez on 05-10-2023 Lymphocytes (Bld) [#/Vol] 1.2 10*3/uL 1.00-4.8 Lymphocytes/100 WBC Auto (Bl d)Ordered By: Michael Gonzalez on 05-10-2023 Lymphocytes/100 WBC (Bld) 13.4 % . Magnesiumon 05-10-2023 Magnesium [Mass/Vol] 1.9 mg/dL Normal 1.9-2.7 [facility] Comment on above: Result Comment: PERF ORMED BY: [place] [address] PATHOLOGIST CYBER SECURITY MANAGER DI CORONEL M.D. Performed By: #### C UU, YEIMY #### [address] Magnesium [Mass/volume] in S adolph or PlasmaOrdered By: Michael Gonzalez on 05-10-2023 Magnesium [Mass/Vol] 1.9 mg/dL 1.9-2.7 [facility] Monocytes Auto (Bld) [#/Vol] Ordered By: iMchael Hindsr on 05-10-2023 Monocytes (Bld) [#/Vol] 0.8 10*3/uL 0.0-0.8 Monocytes/100 WBC Auto (Bld) Ordered By: Michael Hindsr on 05-10-2023 Monocytes/100 WBC (Bld) 9.0 % . [facility] Neutrophils Auto (Bld) [#/Vo l]Ordered By: Michael Gonzalez on 05-10-2023 Neutrophils (Bld) [#/Vol] 6.8 10*3/uL 1.8-7.7 Neutrophils/100 WBC Auto (Bl d)Ordered By: Michael Gonzalez on 05-10-2023 Neutrophils/100 WBC (Bld) 73.6 % . Nucleated erythrocytes [Pres ence] in Blood by Automated countOrdered By: Michael Gonzalez on 05-10-2023 Nucleated RBC Auto Ql (Bld) 0.1 /100{WBC} 0-0.5 Phosphate [Mass/volume] in S adolph or PlasmaOrdered By: Michael Gonzalez on 05-10-2023 Phosphate [Mass/Vol] 7.0 mg/dL 3.7-7.2 [facility] Phosphoruson 05-10-2023 Phosphate [Mass/Vol] 7.0 mg/dL Normal 3.7-7.2 [facility] Comment on above: Performed By: #### C UU, URDS #### [address] Protein [Mass/volume] in Ser um or PlasmaOrdered By: Michael Gonzalez on 05-10-2023 Protein [Mass/Vol] 5.5 g/dL 6.4-8.9 [facility] Prothrombin Time INRon 05-10 INR Coag (PPP) [Relative time] 0.9 {INR} Normal Comment on above: Result Comment: INR Therapeutic [...] heart valves: 3 - 4.5 PERFORMED BY: [place] [address] PATHOLOGIST CYBER SECURITY MANAGER DI CORONEL M.D. Performed By: #### C UU, URDS #### [facility] [address] [place] [id number] [facility] PT Coag (PPP) [Time] 10.7 s Normal 9.0-12.9 [facility] Comment on above: Performed By: #### C UU, URDS #### [facility] [address] Serum or plasma albumin/glob ulin mass ratioOrdered By: Obdanuta Willardomar on 05-10-2023 Albumin/Globulin [Mass ratio] 1.4 {ratio} WBC Auto (Bld) [#/Vol]Ordere d By: Obaydadanie Willardomar on 05-10-2023 WBC (Bld) [#/Vol] 9.2 10*3/uL 4.1-10.5 [facility] Alanine aminotransferase [En zymatic activity/volume] in Serum or PlasmaOrdered By: Fransico Mendieta on 05-09-2023 ALT [Catalytic activity/Vol] 13 U/L 7-52 Albumin [Mass/volume] in Ser um or Plasma by Bromocresol green (BCG) dye binding methoOrdered By: Fransico Mendieta on 05-09-2023 Albumin BCG dye [Mass/Vol] 3.2 g/dL 3.5-5.7 Alkaline phosphatase [Enzyma tic activity/volume] in Serum or PlasmaOrdered By: Fransico Mendieta on 05-09-2023 ALP [Catalytic activity/Vol] 79 U/L 34-104 Aspartate aminotransferase [ Enzymatic activity/volume] in Serum or PlasmaOrdered By: Fransico Mendieta on 05-09-2023 AST [Catalytic activity/Vol] 13 U/L 13-39 B-Type Natriuretic Peptideon 05-09-2023 Natriuretic peptide B (Bld) [Mass/Vol] 787.0 pg/mL High 5-100 Comment on above: Result Comment: PERF ORMED BY: [place] [address] PATHOLOGIST CYBER SECURITY MANAGER DI CORONEL M.D. Performed By: #### B MP #### [facility] [address] Bacterial blood cultureOrder ed By: Fransico Mendieta on 05-09-2023 Bacteria identified Cx Nom (Bld) NO GROWTH 5 DAYS Basic Metabolic Panelon Anion gap [Moles/Vol] 11.0 mmol/L Normal 6.0-15.0 [facility] Comment on above: Performed By: #### C BC, BNP, CUBLD, BMP, HS TROP, CK, HEPATIC, LACTIC ####[facility] Calcium [Mass/Vol] 7.9 mg/dL Low 8.6-10.3 [facility] Comment on above: Performed By: #### C BC, BNP, CUBLD, BMP, HS TROP, CK, HEPATIC, LACTIC ####[facility] Chloride [Moles/Vol] 99 mmol/L Normal 98-107 [facility] Comment on above: Performed By: #### C BC, BNP, CUBLD, BMP, HS TROP, CK, HEPATIC, LACTIC ####[facility] CO2 [Moles/Vol] 23.8 mmol/L Normal 21.0-31.0 [facility] Comment on above: Performed By: #### C BC, BNP, CUBLD, BMP, HS TROP, CK, HEPATIC, LACTIC ####[place] [id number] [address] Creatinine [Mass/Vol] 4.81 mg/dL High 0.70-1.30 [facility] Comment on above: Performed By: #### C BC, BNP, CUBLD, BMP, HS TROP, CK, HEPATIC, LACTIC ####[place] [id number] [address] Creatinine Clr Calc Pharmacy 19.82 Normal Comment on above: Result Comment: PERF ORMED BY: [facility] [address] [place] [address] PATHOLOGIST CYBER SECURITY MANAGER DI CORONEL M.D. Performed By: #### C BC, BNP, CUBLD, BMP, HS TROP, CK, HEPATIC, LACTIC ####[place] [id number] [place] [id number] [facility] GFR/1.73 sq M.predicted MDRD (S/P/Bld) [Vol rate/Area] 15.003 mL/min/{1.73_m2} Normal [facility] Comment on above: Performed By: #### C BC, BNP, CUBLD, BMP, HS TROP, CK, HEPATIC, LACTIC ####[place] [id number] [place] [id number] [facility] Glucose [Mass/Vol] 103 mg/dL High 70-100 [facility] Comment on above: Result Comment: [facility] Glucose Reference Range is dependent on time and content of last meal. Glucose of more than 200 mg/dL in a nonstressed, ambulatory subject supports the diagnosis of Diabetes Mellitus. ADA recommended reference range Performed By: #### C BC, BNP, CUBLD, BMP, HS TROP, CK, HEPATIC, LACTIC ####[place] [id number] [place] [id number] [facility] Potassium [Moles/Vol] 4.8 mmol/L Normal 3.5-5.1 [facility] Comment on above: Performed By: #### C BC, BNP, CUBLD, BMP, HS TROP, CK, HEPATIC, LACTIC ####[place] [id number] [place] [address] [facility] Sodium [Moles/Vol] 129 mmol/L Low 136-145 [facility] Comment on above: Performed By: #### C BC, BNP, CUBLD, BMP, HS TROP, CK, HEPATIC, LACTIC ####[address] [address] [facility] Urea nitrogen [Mass/Vol] 64 mg/dL High 7-25 Comment on above: Performed By: #### C BC, BNP, CUBLD, BMP, HS TROP, CK, HEPATIC, LACTIC ####[place] [id number] [place] [address] [facility] Basophils Auto (Bld) [#/Vol] Ordered By: Fransico Mendieta on 05-09-2023 Basophils (Bld) [#/Vol] 0.0 10*3/uL 0.0-0.2 Basophils/100 WBC Auto (Bld) Ordered By: Fransico Mendieta on 05-09-2023 Basophils/100 WBC (Bld) 0.2 % . [facility] Bilirubin.direct [Mass/volum e] in Serum or PlasmaOrdered By: Fransico Mendieta on 05-09-2023 Bilirubin.direct [Mass/Vol] 0.00 mg/dL 0.03-0.18 Comment on above: If the DBIL is less than 0.1, IBIL is not able to becalculated. Bilirubin.total [Mass/volume ] in Serum or PlasmaOrdered By: Fransico Mendieta on 05-09-2023 Bilirubin [Mass/Vol] 0.3 mg/dL 0.3-1.0 [facility] Blood Cultureon 05-09-2023 Bacteria identified Cx Nom (Bld) NO GROWTH 5 DAYS PERFORMED BY: [place] [address] PATHOLOGIST CYBER SECURITY MANAGER DI CORONEL M.D. [facility] Comment on above: Performed By: #### B MP #### [facility] [address] [place] [address] Bacteria identified Cx Nom (Bld) NO GROWTH 5 DAYS PERFORMED BY: [place] [address] PATHOLOGIST CYBER SECURITY MANAGER DI CORONEL M.D. [facility] Comment on above: Performed By: #### B MP #### [facility] [address] [place] [address] Calcium [Mass/volume] in Ser um or PlasmaOrdered By: Fransico Mendieta on 05-09-2023 Calcium [Mass/Vol] 7.9 mg/dL 8.6-10.3 [facility] Carbon dioxide, total [Moles /volume] in Serum or PlasmaOrdered By: Fransico Mendieta on 05-09-2023 CO2 [Moles/Vol] 23.8 mmol/L 21.0-31.0 [facility] Chloride [Moles/volume] in S adolph or PlasmaOrdered By: Fransico Mendieta on 05-09-2023 Chloride [Moles/Vol] 99 mmol/L 98-107 [facility] Complete Blood Count Auto Di ffon 05-09-2023 Basophils (Bld) [#/Vol] 0.0 10*3/uL Normal 0.0-0.2 Comment on above: Result Comment: PERF ORMED BY: [facility] [address] [place] [address] PATHOLOGIST CYBER SECURITY MANAGER DI CORONEL M.D. Performed By: #### C BC, BNP, CUBLD, BMP, HS TROP, CK, HEPATIC, LACTIC ####[address] Basophils/100 WBC (Bld) 0.2 % Normal . [facility] Comment on above: Performed By: #### C BC, BNP, CUBLD, BMP, HS TROP, CK, HEPATIC, LACTIC ####[address] Eosinophils (Bld) [#/Vol] 0.1 10*3/uL Normal 0.0-0.45 Comment on above: Performed By: #### C BC, BNP, CUBLD, BMP, HS TROP, CK, HEPATIC, LACTIC ####[address] Eosinophils/100 WBC (Bld) 1.2 % Normal . Comment on above: Performed By: #### C BC, BNP, CUBLD, BMP, HS TROP, CK, HEPATIC, LACTIC ####[address] Erythrocyte distribution width (RBC) [Ratio] 14.7 % Normal 12.0-14.8 Comment on above: Performed By: #### C BC, BNP, CUBLD, BMP, HS TROP, CK, HEPATIC, LACTIC ####[address] Hematocrit (Bld) [Volume fraction] 24.3 % Low 38.8-50.0 Comment on above: Performed By: #### C BC, BNP, CUBLD, BMP, HS TROP, CK, HEPATIC, LACTIC ####[address] Hemoglobin (Bld) [Mass/Vol] 7.6 g/dL Low 13.0-17.0 Comment on above: Performed By: #### C BC, BNP, CUBLD, BMP, HS TROP, CK, HEPATIC, LACTIC ####[address] Lymphocytes (Bld) [#/Vol] 1.3 10*3/uL Normal 1.00-4.8 Comment on above: Performed By: #### C BC, BNP, CUBLD, BMP, HS TROP, CK, HEPATIC, LACTIC ####[address] Lymphocytes/100 WBC (Bld) 13.3 % Normal . Comment on above: Performed By: #### C BC, BNP, CUBLD, BMP, HS TROP, CK, HEPATIC, LACTIC ####[address] MCH (RBC) [Entitic mass] 30.1 pg Normal 27.5-35.2 Comment on above: Performed By: #### C BC, BNP, CUBLD, BMP, HS TROP, CK, HEPATIC, LACTIC ####[address] MCV (RBC) [Entitic vol] 95.9 fL Normal 83.5-101 [facility] Comment on above: Performed By: #### C BC, BNP, CUBLD, BMP, HS TROP, CK, HEPATIC, LACTIC ####[address] Mean Corpuscular HGB Conc 31.4 g/dL Low 32.5-35.6 Comment on above: Performed By: #### C BC, BNP, CUBLD, BMP, HS TROP, CK, HEPATIC, LACTIC ####[address] Monocytes (Bld) [#/Vol] 1.1 10*3/uL High 0.0-0.8 Comment on above: Performed By: #### C BC, BNP, CUBLD, BMP, HS TROP, CK, HEPATIC, LACTIC ####[address] Monocytes/100 WBC (Bld) 18.33 % Normal 0.00-20.00 [facility] Comment on above: Performed By: #### C BC, BNP, CUBLD, BMP, HS TROP, CK, HEPATIC, LACTIC ####[address] Monocytes/100 WBC (Bld) 10.8 % Normal . [facility] Comment on above: Performed By: #### C BC, BNP, CUBLD, BMP, HS TROP, CK, HEPATIC, LACTIC ####[address] Neutrophils (Bld) [#/Vol] 7.5 10*3/uL Normal 1.8-7.7 Comment on above: Performed By: #### C BC, BNP, CUBLD, BMP, HS TROP, CK, HEPATIC, LACTIC ####[address] Neutrophils/100 WBC (Bld) 74.5 % Normal . Comment on above: Performed By: #### C BC, BNP, CUBLD, BMP, HS TROP, CK, HEPATIC, LACTIC ####[place] [id number] [facility] NRBC% 0.1 /100{WBC} Normal 0-0.5 Comment on above: Performed By: #### C BC, BNP, CUBLD, BMP, HS TROP, CK, HEPATIC, LACTIC ####[address] Platelet mean volume (Bld) [Entitic vol] 7.4 fL Normal 6.6-10.1 Comment on above: Performed By: #### C BC, BNP, CUBLD, BMP, HS TROP, CK, HEPATIC, LACTIC ####[facility] Platelets (Bld) [#/Vol] 362 10*3/uL Normal 150-450 Comment on above: Performed By: #### C BC, BNP, CUBLD, BMP, HS TROP, CK, HEPATIC, LACTIC ####[facility] RBC (Bld) [#/Vol] 2.53 10*6/uL Low 3.90-5.60 [facility] Comment on above: Performed By: #### C BC, BNP, CUBLD, BMP, HS TROP, CK, HEPATIC, LACTIC ####[facility] WBC (Bld) [#/Vol] 10.0 10*3/uL Normal 4.1-10.5 [facility] Comment on above: Performed By: #### C BC, BNP, CUBLD, BMP, HS TROP, CK, HEPATIC, LACTIC ####[facility] Creatine Kinaseon 05-09-2023 CK [Catalytic activity/Vol] 31 U/L Normal 30-223 Comment on above: Performed By: #### B MP #### [facility] [address] Creatine kinase [Enzymatic a ctivity/volume] in Serum or PlasmaOrdered By: Fransico Mendieta on 05-09-2023 CK [Catalytic activity/Vol] 31 U/L 30-223 Creatinine [Mass/volume] in Serum or PlasmaOrdered By: Fransico Mendieta on 05-09-2023 Creatinine [Mass/Vol] 4.81 mg/dL 0.70-1.30 [facility] ECG 12 lead ECGon 05-09-2023 ECG 12 lead ECG [facility] [address] [place] [address] [place] [address] Electrocardiograph Report Signed Patient: Ruddy Palmer MR#: [id number] 9 : 1985 Acct:[id number] Age/Sex: 37 / M ADM Date: 05/09/23 Loc: ER Room: Type: [facility] ER Attending Dr: Ordering Provider: Fransico [...] was found Confirmed by Layton Becerra DO ([id number]) on 05/09/2023 6:51:23 PM Referred By: Electronically Signed By:Layton Becerra DO Transcribed By: MUS Signed By Layton Becerra DO 3 1851 Normal Eosinophils Auto (Bld) [#/Vo l]Ordered By: Fransico Mendieta on 05-09-2023 Eosinophils (Bld) [#/Vol] 0.1 10*3/uL 0.0-0.45 Eosinophils/100 WBC Auto (Bl d)Ordered By: Fransico Mendieta on 05-09-2023 Eosinophils/100 WBC (Bld) 1.2 % . Erythrocyte distribution wid th Auto (RBC) [Ratio]Ordered By: Fransico Mendieta on 05-09-2023 Erythrocyte distribution width (RBC) [Ratio] 14.7 % 12.0-14.8 Globulin Calc (S) [Mass/Vol] Ordered By: Fransico Mendieta on 05-09-2023 Globulin (S) [Mass/Vol] 2.1 g/dL [facility] [facility] Glucose [Mass/volume] in Ser um or PlasmaOrdered By: Fransico Mendieta on 05-09-2023 Glucose [Mass/Vol] 103 mg/dL 70-100 [facility] Comment on above: ADA recommended refe rence rangeRandom Glucose Reference Range is dependent on time and content of last meal. Glucose of more than 200 mg/dL in a nonstressed, ambulatory subject supports the diagnosis of Diabetes Mellitus. Hematocrit Auto (Bld) [Volum e fraction]Ordered By: Fransico Mendieta on 05-09-2023 Hematocrit (Bld) [Volume fraction] 24.3 % 38.8-50.0 Hemoglobin [Mass/volume] in BloodOrdered By: Fransico Mendieta on 05-09-2023 Hemoglobin (Bld) [Mass/Vol] 7.6 g/dL 13.0-17.0 Hepatic Panelon 05-09-2023 Albumin [Mass/Vol] 3.2 g/dL Low 3.5-5.7 [facility] Comment on above: Performed By: #### C BC, BNP, CUBLD, BMP, HS TROP, CK, HEPATIC, LACTIC ####[place] [id number] [address] Albumin/Globulin [Mass ratio] 1.5 {ratio} Normal Comment on above: Performed By: #### C BC, BNP, CUBLD, BMP, HS TROP, CK, HEPATIC, LACTIC ####[place] [id number] [facility] ALP [Catalytic activity/Vol] 79 U/L Normal 34-104 Comment on above: Performed By: #### C BC, BNP, CUBLD, BMP, HS TROP, CK, HEPATIC, LACTIC ####[place] [id number] [facility] ALT [Catalytic activity/Vol] 13 U/L Normal 7-52 Comment on above: Performed By: #### C BC, BNP, CUBLD, BMP, HS TROP, CK, HEPATIC, LACTIC ####[place] [id number] [facility] AST [Catalytic activity/Vol] 13 U/L Normal 13-39 Comment on above: Performed By: #### C BC, BNP, CUBLD, BMP, HS TROP, CK, HEPATIC, LACTIC ####[address] Bilirubin [Mass/Vol] 0.3 mg/dL Normal 0.3-1.0 [facility] Comment on above: Performed By: #### C BC, BNP, CUBLD, BMP, HS TROP, CK, HEPATIC, LACTIC ####[address] Bilirubin,Indirect 0.3 mg/dL Normal [facility] Comment on above: Performed By: #### C BC, BNP, CUBLD, BMP, HS TROP, CK, HEPATIC, LACTIC ####[address] Bilirubin.indirect [Mass/Vol] 0.00 mg/dL Low 0.03-0.18 Comment on above: Result Comment: If t he DBIL is less than 0.1, IBIL is not able to be calculated. Performed By: #### C BC, BNP, CUBLD, BMP, HS TROP, CK, HEPATIC, LACTIC ####[address] Globulin (S) [Mass/Vol] 2.1 g/dL Normal [facility] Comment on above: Performed By: #### C BC, BNP, CUBLD, BMP, HS TROP, CK, HEPATIC, LACTIC ####[address] Protein [Mass/Vol] 5.3 g/dL Low 6.4-8.9 [facility] Comment on above: Performed By: #### C BC, BNP, CUBLD, BMP, HS TROP, CK, HEPATIC, LACTIC ####[address] Lactate [Moles/volume] in Se rum or PlasmaOrdered By: Fransico Mendieta on 05-09-2023 Lactate [Moles/Vol] 0.4 mmol/L 0.5-2.2 [facility] Lactic Acidon 05-09-2023 Lactate [Moles/Vol] 0.4 mmol/L Normal 0.5-2.2 [facility] Comment on above: Result Comment: PERF ORMED BY: [facility] [address] [place] [address] PATHOLOGIST CYBER SECURITY MANAGER DI CORONEL M.D. Performed By: #### C BC, BNP, CUBLD, BMP, HS TROP, CK, HEPATIC, LACTIC ####[facility] [id number] [place] [address] [facility] LeukoReduced RBCon 3 LeukoReduced RBC TRANSFUSED 05/11/23 2146 Normal Leukocytes [#/volume] correc radha for nucleated erythrocytes in Blood by Automated counOrdered By: Fransico Mendieta on 05-09-2023 WBC corrected for nucl RBC Auto (Bld) [#/Vol] 10.0 10*3/uL 4.1-10.5 Lymphocytes Auto (Bld) [#/Vo l]Ordered By: Fransico Mendieta on 05-09-2023 Lymphocytes (Bld) [#/Vol] 1.3 10*3/uL 1.00-4.8 Lymphocytes/100 WBC Auto (Bl d)Ordered By: Fransico Mendieta on 05-09-2023 Lymphocytes/100 WBC (Bld) 13.3 % . MCH Auto (RBC) [Entitic mass ]Ordered By: Fransico Mendieta on 05-09-2023 MCH (RBC) [Entitic mass] 30.1 pg 27.5-35.2 MCHC Auto (RBC) [Mass/Vol]Or dered By: Fransico Mendieta on 05-09-2023 MCHC (RBC) [Mass/Vol] 31.4 g/dL 32.5-35.6 [facility] MCV Auto (RBC) [Entitic vol] Ordered By: Fransico Mendieta on 05-09-2023 MCV (RBC) [Entitic vol] 95.9 fL 83.5-101 [facility] Monocyte distribution width [Entitic volume] in Blood by AutomatedOrdered By: Fransico Mendieta on 05-09-2023 Monocyte distribution width Auto (Bld) [Entitic vol] 18.33 % 0.00-20.00 Monocytes Auto (Bld) [#/Vol] Ordered By: Fransico Mendieta on 05-09-2023 Monocytes (Bld) [#/Vol] 1.1 10*3/uL 0.0-0.8 Monocytes/100 WBC Auto (Bld) Ordered By: Fransico Mendieta on 05-09-2023 Monocytes/100 WBC (Bld) 10.8 % . [facility] Natriuretic peptide B [Mass/ Vol]Ordered By: Fransico Mendieta on 05-09-2023 Natriuretic peptide B (Bld) [Mass/Vol] 787.0 pg/mL 5-100 Neutrophils Auto (Bld) [#/Vo l]Ordered By: Fransico Mendieta on 05-09-2023 Neutrophils (Bld) [#/Vol] 7.5 10*3/uL 1.8-7.7 Neutrophils/100 WBC Auto (Bl d)Ordered By: Fransico Mendieta on 05-09-2023 Neutrophils/100 WBC (Bld) 74.5 % . No Panel InformationOrdered By: Fransico Mendieta on 05-09-2023 Estimated GFR (CKD-EPI) 15.003 mL/Min Pharmacy Creatinine Clearance (Chem 19.82 Nucleated erythrocytes [Pres ence] in Blood by Automated countOrdered By: Fransico Mendieta on 05-09-2023 Nucleated RBC Auto Ql (Bld) 0.1 /100{WBC} 0-0.5 Platelet mean volume Auto (B ld) [Entitic vol]Ordered By: Fransico Mendieta on 05-09-2023 Platelet mean volume (Bld) [Entitic vol] 7.4 fL 6.6-10.1 Platelets Auto (Bld) [#/Vol] Ordered By: Fransico Mendieta on 05-09-2023 Platelets (Bld) [#/Vol] 362 10*3/uL 150-450 Potassium [Moles/volume] in Serum or PlasmaOrdered By: Fransico Mendieta on 05-09-2023 Potassium [Moles/Vol] 4.8 mmol/L 3.5-5.1 [facility] Protein [Mass/volume] in Ser um or PlasmaOrdered By: Fransico Mendieta on 05-09-2023 Protein [Mass/Vol] 5.3 g/dL 6.4-8.9 [facility] RBC Auto (Bld) [#/Vol]Ordere d By: Fransico Mendieta on 05-09-2023 RBC (Bld) [#/Vol] 2.53 10*6/uL 3.90-5.60 [facility] Serum or plasma albumin/glob ulin mass ratioOrdered By: Fransico Mendieta on 05-09-2023 Albumin/Globulin [Mass ratio] 1.5 {ratio} Serum or plasma anion gap de terminationOrdered By: Fransico Mendieta on 05-09-2023 Anion gap [Moles/Vol] 11.0 mmol/L 6.0-15.0 [facility] Serum or plasma non-glucuron idated bilirubin measurement (mass/volume)Ordered By: Fransico Mendieta on 05-09-2023 Bilirubin.indirect [Mass/Vol] 0.3 mg/dL Sodium [Moles/volume] in Ser um or PlasmaOrdered By: Fransico Mendieta on 05-09-2023 Sodium [Moles/Vol] 129 mmol/L 136-145 [facility] Troponin I High Sensitivityo n 05-09-2023 Troponin I High Sensitivity 7.5 pg/mL Normal 0.0-20.0 Comment on above: Result Comment: PERF ORMED BY: [place] [address] PATHOLOGIST CYBER SECURITY MANAGER DI CORONEL M.D. Performed By: #### B MP #### [address] Troponin I.cardiac [Mass/vol ume] in Serum or Plasma by Detection limit <= 0.01 ng/Ordered By: Fransico Mendieta on 05-09-2023 Troponin I.cardiac DL <= 0.01 ng/mL [Mass/Vol] 7.5 pg/mL 0.0-20.0 Type and Screenon 05-09-2023 ABO and Rh group Nom (Bld) Blood group A Rh(D) positive Normal Comment on above: Order Comment: Trans fuse now? Y Number of units to transfuse now? 1 Transfuse now? Y Number of units to transfuse now? 2 Result Comment: PERF ORMED BY: [address] [address] PATHOLOGIST CYBER SECURITY MANAGER DI CORONEL M.D. Urea nitrogen [Mass/volume] in Serum or PlasmaOrdered By: Fransico Mendieta on 05-09-2023 Urea nitrogen [Mass/Vol] 64 mg/dL 03-28 WBC Auto (Bld) [#/Vol]Ordere d By: Fransico Mendieta on 05-09-2023 WBC (Bld) [#/Vol] 10.0 10*3/uL 4.1-10.5 [facility] XR chest 1V portableon 05-09 XR chest 1V portable [facility] Main [address] [address] XRay Report Signed Patient: Ruddy Palmer MR#: [id number] 9 : 1985 Acct:[id number] Age/Sex: 37 / M ADM Date: 05/09/23 Loc: ER Room: Type: [facility] ER Attending Dr: Copies to: Fransico [...] Art Jr., D.OIsidra05/09/2023 5:15 PM Dictation Location: [place] [address] Transcribed By: [facility] 05/09/23 1715 Dictated By: Maurilio Art Jr, DO 05/09/23 1712 Signed By: 05/09/23 1715 Normal Alanine aminotransferase [En zymatic activity/volume] in Serum or PlasmaOrdered By: Ceferino Godinez on 05-07-2023 ALT [Catalytic activity/Vol] 15 U/L 7-52 Albumin [Mass/volume] in Ser um or Plasma by Bromocresol green (BCG) dye binding methoOrdered By: Ceferino Godinez on 05-07-2023 Albumin BCG dye [Mass/Vol] 3.2 g/dL 3.5-5.7 Alkaline phosphatase [Enzyma tic activity/volume] in Serum or PlasmaOrdered By: Ceferino Godinez on 05-07-2023 ALP [Catalytic activity/Vol] 102 U/L 34-104 Aspartate aminotransferase [ Enzymatic activity/volume] in Serum or PlasmaOrdered By: Ceferino Godinez on 05-07-2023 AST [Catalytic activity/Vol] 10 U/L 13-39 Automated basophil %Ordered By: Ceferino Godinez on 05-07-2023 Basophils/100 WBC (Bld) 0.3 % Normal . [facility] Comment on above: Performed By: #### C MP, CBC ####[facility] [id number] Automated basophil countOrde red By: Ceferino Godinez on 05-07-2023 Basophils (Bld) [#/Vol] 0.0 10*3/uL Normal 0.0-0.2 Comment on above: Result Comment: PERF ORMED BY: [facility] [address] [place] [address] PATHOLOGIST CYBER SECURITY MANAGER DI CORONEL M.D. Performed By: #### C MP, CBC ####[facility] [place] [id number] [facility] Automated blood monocyte cou ntOrdered By: Ceferino Godinez on 05-07-2023 Monocytes (Bld) [#/Vol] 0.2 10*3/uL Normal 0.0-0.8 Comment on above: Performed By: #### C MP, CBC ####[address] Automated eosinophil %Ordere d By: Ceferino Herbert on 05-07-2023 Eosinophils/100 WBC (Bld) 0.1 % Normal . Comment on above: Performed By: #### C MP, CBC ####[address] Automated eosinophil countOr dered By: Ceferino Herbert on 05-07-2023 Eosinophils (Bld) [#/Vol] 0.0 10*3/uL Normal 0.0-0.45 Comment on above: Performed By: #### C MP, CBC ####[address] Automated monocyte %Ordered By: Ceferinocleo Godinez on 05-07-2023 Monocytes/100 WBC (Bld) 1.6 % Normal . [facility] Comment on above: Performed By: #### C MP, CBC ####[address] Automated neutrophil %Ordere d By: Ceferino Herbert on 05-07-2023 Neutrophils/100 WBC (Bld) 93.1 % Normal . Comment on above: Performed By: #### C MP, CBC ####[address] Bilirubin.total [Mass/volume ] in Serum or PlasmaOrdered By: Ceferino Herbert on 05-07-2023 Bilirubin [Mass/Vol] 0.3 mg/dL 0.3-1.0 [facility] Calcium [Mass/volume] in Ser um or PlasmaOrdered By: Ceferino Herbert on 05-07-2023 Calcium [Mass/Vol] 8.1 mg/dL 8.6-10.3 [facility] Carbon dioxide, total [Moles /volume] in Serum or PlasmaOrdered By: Ceferino Herbert on 05-07-2023 CO2 [Moles/Vol] 25.2 mmol/L 21.0-31.0 [facility] Chloride [Moles/volume] in S adolph or PlasmaOrdered By: Ceferino Godinez on 05-07-2023 Chloride [Moles/Vol] 97 mmol/L 98-107 [facility] Complete Blood Count Auto Di ffon 05-07-2023 Mean Corpuscular HGB Conc 32.4 g/dL Low 32.5-35.6 Comment on above: Performed By: #### C MP, CBC ####[facility] [id number] [place] [address] [facility] NRBC% 0.1 /100{WBC} Normal 0-0.5 Comment on above: Performed By: #### C MP, CBC ####[facility] [id number] [place] [address] [facility] Comprehensive Metabolic Pane clara 05-07-2023 Albumin [Mass/Vol] 3.2 g/dL Low 3.5-5.7 [facility] Comment on above: Performed By: #### C MP, CBC ####[address] [address] [facility] Albumin/Globulin [Mass ratio] 1.2 {ratio} Normal Comment on above: Performed By: #### C MP, CBC ####[address] [address] [facility] ALP [Catalytic activity/Vol] 102 U/L Normal 34-104 Comment on above: Performed By: #### C MP, CBC ####[facility] [id number] [place] [address] [facility] ALT [Catalytic activity/Vol] 15 U/L Normal 7-52 Comment on above: Performed By: #### C MP, CBC ####[address] [address] [facility] Anion gap [Moles/Vol] 12.5 mmol/L Normal 6.0-15.0 [facility] Comment on above: Performed By: #### C MP, CBC ####[facility] [id number] [place] [address] [facility] AST [Catalytic activity/Vol] 10 U/L Low 13-39 Comment on above: Performed By: #### C MP, CBC ####[facility] [place] [address] [facility] Bilirubin [Mass/Vol] 0.3 mg/dL Normal 0.3-1.0 [facility] Comment on above: Performed By: #### C MP, CBC ####[facility] [id number] [place] [address] [facility] Calcium [Mass/Vol] 8.1 mg/dL Low 8.6-10.3 [facility] Comment on above: Performed By: #### C MP, CBC ####[place] [address] [place] [address] [facility] Chloride [Moles/Vol] 97 mmol/L Low 98-107 [facility] Comment on above: Performed By: #### C MP, CBC ####[place] [address] [place] [address] [facility] CO2 [Moles/Vol] 25.2 mmol/L Normal 21.0-31.0 [facility] Comment on above: Performed By: #### C MP, CBC ####[place] [address] [place] [address] [facility] Creatinine [Mass/Vol] 5.94 mg/dL Significan t change up 0.70-1.30 Comment on above: Performed By: #### C MP, CBC ####[place] [address] [place] [address] [facility] Creatinine Clr Calc Pharmacy 13.95 Normal Comment on above: Result Comment: PERF ORMED BY: [facility] [address] [place] [id number] PATHOLOGIST CYBER SECURITY MANAGER DI CORONEL M.D. Performed By: #### C MP, CBC ####[place] [id number] [place] [address] [facility] GFR/1.73 sq M.predicted MDRD (S/P/Bld) [Vol rate/Area] 11.646 mL/min/{1.73_m2} Normal [facility] Comment on above: Performed By: #### C MP, CBC ####[place] [id number] [place] [id number] [facility] Globulin (S) [Mass/Vol] 2.6 g/dL Normal [facility] Comment on above: Performed By: #### C MP, CBC ####[place] [id number] [facility] Glucose [Mass/Vol] 118 mg/dL High 70-100 [facility] Comment on above: Result Comment: [facility] Glucose Reference Range is dependent on time and content of last meal. Glucose of more than 200 mg/dL in a nonstressed, ambulatory subject supports the diagnosis of Diabetes Mellitus. ADA recommended reference range Performed By: #### C MP, CBC ####[place] [id number] [facility] Potassium [Moles/Vol] 4.7 mmol/L Normal 3.5-5.1 [facility] Comment on above: Performed By: #### C MP, CBC ####[place] [id number] [facility] Protein [Mass/Vol] 5.8 g/dL Low 6.4-8.9 [facility] Comment on above: Performed By: #### C MP, CBC ####[place] [id number] [facility] Sodium [Moles/Vol] 130 mmol/L Low 136-145 [facility] Comment on above: Performed By: #### C MP, CBC ####[place] [id number] [facility] Urea nitrogen [Mass/Vol] 82 mg/dL Significant change up 03-28 Comment on above: Performed By: #### C MP, CBC ####[place] [id number] [facility] Creatinine [Mass/volume] in Serum or PlasmaOrdered By: Ceferino Godinez on 05-07-2023 Creatinine [Mass/Vol] 5.94 mg/dL 0.70-1.30 [facility] Comment on above: Delta: 4.58 on 05/06 Erythrocyte distribution wid th [Ratio] by Automated countOrdered By: Ceferino Godinez on 05-07-2023 Erythrocyte distribution width (RBC) [Ratio] 14.5 % Normal 12.0-14.8 Comment on above: Performed By: #### C MP, CBC ####[facility] [id number] [place] [id number] [facility] Erythrocytes [#/volume] in B lood by Automated countOrdered By: Ceferino Godinez on 05-07-2023 RBC (Bld) [#/Vol] 2.59 10*6/uL Low 3.90-5.60 [facility] Comment on above: Performed By: #### C MP, CBC ####[place] [id number] [place] [id number] [facility] Globulin Calc (S) [Mass/Vol] Ordered By: Ceferino Godinez on 05-07-2023 Globulin (S) [Mass/Vol] 2.6 g/dL [facility] Glucose [Mass/volume] in Ser um or PlasmaOrdered By: Ceferino Godinez on 05-07-2023 Glucose [Mass/Vol] 118 mg/dL 70-100 [facility] Comment on above: ADA recommended refe rence rangeRandom Glucose Reference Range is dependent on time and content of last meal. Glucose of more than 200 mg/dL in a nonstressed, ambulatory subject supports the diagnosis of Diabetes Mellitus. Hematocrit [Volume Fraction] of Blood by Automated countOrdered By: Ceferino Godinez on 05-07-2023 Hematocrit (Bld) [Volume fraction] 24.2 % Low 38.8-50.0 Comment on above: Performed By: #### C MP, CBC ####[facility] [id number] [place] [address] [facility] Hemoglobin [Mass/volume] in BloodOrdered By: Ceferino Godinez on 05-07-2023 Hemoglobin (Bld) [Mass/Vol] 7.9 g/dL Low 13.0-17.0 Comment on above: Performed By: #### C MP, CBC ####[address] Leukocytes [#/volume] correc radha for nucleated erythrocytes in Blood by Automated counOrdered By: Ceferino Herbert on 05-07-2023 WBC corrected for nucl RBC Auto (Bld) [#/Vol] 9.2 10*3/uL 4.1-10.5 Leukocytes [#/volume] in Blo od by Automated countOrdered By: Ceferino Herbert on 05-07-2023 WBC (Bld) [#/Vol] 9.2 10*3/uL Normal 4.1-10.5 [facility] Comment on above: Performed By: #### C MP, CBC ####[address] Lymphocytes [#/volume] in Bl ood by Automated countOrdered By: Ceferino Herbert on 05-07-2023 Lymphocytes (Bld) [#/Vol] 0.5 10*3/uL Low 1.00-4.8 Comment on above: Performed By: #### C MP, CBC ####[address] Lymphocytes/100 leukocytes i n Blood by Automated countOrdered By: Ceferinosarah Godinez on 05-07-2023 Lymphocytes/100 WBC (Bld) 4.9 % Normal . Comment on above: Performed By: #### C MP, CBC ####[place] [id number] [facility] MCH [Entitic mass] by Automa radha countOrdered By: Ceferino Herbert on 05-07-2023 MCH (RBC) [Entitic mass] 30.3 pg Normal 27.5-35.2 Comment on above: Performed By: #### C MP, CBC ####[address] [address] [facility] MCHC Auto (RBC) [Mass/Vol]Or dered By: Ceferino Herbert on 05-07-2023 MCHC (RBC) [Mass/Vol] 32.4 g/dL 32.5-35.6 [facility] MCV [Entitic volume] by Auto mated countOrdered By: Ceferino Herbert on 05-07-2023 MCV (RBC) [Entitic vol] 93.6 fL Normal 83.5-101 [facility] Comment on above: Performed By: #### C MP, CBC ####[address] Neutrophils [#/volume] in Bl ood by Automated countOrdered By: Ceferino Godinez on 05-07-2023 Neutrophils (Bld) [#/Vol] 8.6 10*3/uL High 1.8-7.7 Comment on above: Performed By: #### C MP, CBC ####[address] No Panel InformationOrdered By: Ceferinosarah Godinez on 05-07-2023 Estimated GFR (CKD-EPI) 11.646 mL/Min Pharmacy Creatinine Clearance (Chem 13.95 Nucleated erythrocytes [Pres ence] in Blood by Automated countOrdered By: Ceferino Herbert on 05-07-2023 Nucleated RBC Auto Ql (Bld) 0.1 /100{WBC} 0-0.5 Platelet mean volume [Entiti c volume] in Blood by Automated countOrdered By: Ceferino Herbert on 05-07-2023 Platelet mean volume (Bld) [Entitic vol] 7.9 fL Normal 6.6-10.1 Comment on above: Performed By: #### C MP, CBC ####[address] Platelets [#/volume] in Bloo d by Automated countOrdered By: Ceferino Godinez on 05-07-2023 Platelets (Bld) [#/Vol] 306 10*3/uL Normal 150-450 Comment on above: Performed By: #### C MP, CBC ####[facility] [id number] Potassium [Moles/volume] in Serum or PlasmaOrdered By: Ceferino Herbert on 05-07-2023 Potassium [Moles/Vol] 4.7 mmol/L 3.5-5.1 [facility] Protein [Mass/volume] in Ser um or PlasmaOrdered By: Ceferino Herbert on 05-07-2023 Protein [Mass/Vol] 5.8 g/dL 6.4-8.9 [facility] Serum or plasma albumin/glob ulin mass ratioOrdered By: Ceferino Herbert on 05-07-2023 Albumin/Globulin [Mass ratio] 1.2 {ratio} Serum or plasma anion gap de terminationOrdered By: Ceferino Herbert on 05-07-2023 Anion gap [Moles/Vol] 12.5 mmol/L 6.0-15.0 [facility] Sodium [Moles/volume] in Ser um or PlasmaOrdered By: Ceferino Herbert on 05-07-2023 Sodium [Moles/Vol] 130 mmol/L 136-145 [facility] Urea nitrogen [Mass/volume] in Serum or PlasmaOrdered By: Ceferino Herbert on 05-07-2023 Urea nitrogen [Mass/Vol] 82 mg/dL 7-25 Comment on above: Delta: 36 on 3-0505 Basic Metabolic Panelon Anion gap [Moles/Vol] 13.1 mmol/L Normal 6.0-15.0 [facility] Comment on above: Performed By: #### C BC, BMP #### [facility] [address] [place] [id number] [facility] Calcium [Mass/Vol] 8.4 mg/dL Low 8.6-10.3 [facility] Comment on above: Performed By: #### C BC, BMP #### [facility] [address] Chloride [Moles/Vol] 96 mmol/L Low 98-107 [facility] Comment on above: Performed By: #### C BC, BMP #### [address] CO2 [Moles/Vol] 26.6 mmol/L Normal 21.0-31.0 [facility] Comment on above: Performed By: #### C BC, BMP #### [address] Creatinine [Mass/Vol] 4.58 mg/dL Significan t change up 0.70-1.30 Comment on above: Performed By: #### C BC, BMP #### [address] Creatinine Clr Calc Pharmacy 18.81 [facility] Comment on above: Result Comment: PERF ORMED BY: [place] [address] PATHOLOGIST CYBER SECURITY MANAGER DI CORONEL M.D. Performed By: #### C BC, BMP #### [address] GFR/1.73 sq M.predicted MDRD (S/P/Bld) [Vol rate/Area] 15.911 mL/min/{1.73_m2} [facility] Comment on above: Performed By: #### C BC, BMP #### [address] Glucose [Mass/Vol] 140 mg/dL High 70-100 [facility] Comment on above: Result Comment: Center Glucose Reference Range is dependent on time and content of last meal. Glucose of more than 200 mg/dL in a nonstressed, ambulatory subject supports the diagnosis of Diabetes Mellitus. ADA recommended reference range Performed By: #### C BC, BMP #### [address] Potassium [Moles/Vol] 4.7 mmol/L Normal 3.5-5.1 [facility] Comment on above: Performed By: #### C BC, BMP #### [address] Sodium [Moles/Vol] 131 mmol/L Low 136-145 [facility] Comment on above: Performed By: #### C BC, BMP #### [facility] [address] Urea nitrogen [Mass/Vol] 36 mg/dL High 7-25 Comment on above: Performed By: #### C BC, BMP #### [address] Complete Blood Count Auto Di ffon 05-06-2023 Basophils (Bld) [#/Vol] 0.0 10*3/uL Normal 0.0-0.2 Comment on above: Result Comment: PERF ORMED BY: [place] [address] PATHOLOGIST CYBER SECURITY MANAGER DI CORONEL M.D. Performed By: #### C BC, BMP #### [address] Basophils/100 WBC (Bld) 0.1 % Normal . [facility] Comment on above: Performed By: #### C BC, BMP #### [address] Eosinophils (Bld) [#/Vol] 0.0 10*3/uL Normal 0.0-0.45 Comment on above: Performed By: #### C BC, BMP #### [address] Eosinophils/100 WBC (Bld) 0.1 % Normal . Comment on above: Performed By: #### C BC, BMP #### [address] Erythrocyte distribution width (RBC) [Ratio] 14.4 % Normal 12.0-14.8 Comment on above: Performed By: #### C BC, BMP #### [address] Hematocrit (Bld) [Volume fraction] 27.1 % Low 38.8-50.0 Comment on above: Performed By: #### C BC, BMP #### [address] Hemoglobin (Bld) [Mass/Vol] 8.8 g/dL Low 13.0-17.0 Comment on above: Performed By: #### C BC, BMP #### [address] Lymphocytes (Bld) [#/Vol] 0.3 10*3/uL Low 1.00-4.8 Comment on above: Performed By: #### C BC, BMP #### [address] Lymphocytes/100 WBC (Bld) 3.9 % Normal . Comment on above: Performed By: #### C BC, BMP #### [address] MCH (RBC) [Entitic mass] 30.6 pg Normal 27.5-35.2 Comment on above: Performed By: #### C BC, BMP #### [address] MCV (RBC) [Entitic vol] 94.0 fL Normal 83.5-101 [facility] Comment on above: Performed By: #### C BC, BMP #### [address] Mean Corpuscular HGB Conc 32.6 g/dL Normal 32.5-35.6 Comment on above: Performed By: #### C BC, BMP #### [address] Monocytes (Bld) [#/Vol] 0.0 10*3/uL Normal 0.0-0.8 Comment on above: Performed By: #### C BC, BMP #### [address] [place] [address] [place] Monocytes/100 WBC (Bld) 0.7 % Normal . [facility] Comment on above: Performed By: #### C BC, BMP #### [facility] [address] Neutrophils (Bld) [#/Vol] 6.5 10*3/uL Normal 1.8-7.7 Comment on above: Performed By: #### C BC, BMP #### [facility] [address] Neutrophils/100 WBC (Bld) 95.2 % Normal . Comment on above: Performed By: #### C BC, BMP #### [facility] [address] NRBC% 0.1 /100{WBC} Normal 0-0.5 Comment on above: Performed By: #### C BC, BMP #### [facility] [address] Platelet mean volume (Bld) [Entitic vol] 7.9 fL Normal 6.6-10.1 Comment on above: Performed By: #### C BC, BMP #### [address] Platelets (Bld) [#/Vol] 223 10*3/uL Normal 150-450 Comment on above: Performed By: #### C BC, BMP #### [facility] [address] RBC (Bld) [#/Vol] 2.88 10*6/uL Low 3.90-5.60 [facility] Comment on above: Performed By: #### C BC, BMP #### [facility] [address] WBC (Bld) [#/Vol] 6.8 10*3/uL Normal 4.1-10.5 [facility] Comment on above: Performed By: #### C BC, BMP #### [facility] [address] ABO/Rh Retypeon 05-05-2023 ABO/RH Recheck Result Positive Normal Fir [facility] Comment on above: Result Comment: PERF ORMED BY: [facility] [address] [place] [address] PATHOLOGIST CYBER SECURITY MANAGER DI CORONEL M.D. Band form neutrophils/100 WB C Manual cnt (Bld)Ordered By: Jessica Macdonald on 05-05-2023 Band form neutrophils/100 WBC (Bld) 1 % 0-5 Basophils/100 WBC Manual cnt (Bld)Ordered By: Jessica Macdonald on 05-05-2023 Basophils/100 WBC (Bld) 1 % 0-2 [facility] Diff and CBCon 05-05-2023 Band form neutrophils/100 WBC (Bld) 1 % Normal 0-5 Comment on above: Performed By: #### D IFF CBC ####[address] Basophils/100 WBC (Bld) 1 % Normal 0-2 [facility] Comment on above: Performed By: #### D IFF CBC ####[address] Eosinophils/100 WBC (Bld) 8 % High 1-3 Comment on above: Performed By: #### D IFF CBC ####[address] Erythrocyte distribution width (RBC) [Ratio] 13.6 % Normal 12.0-14.8 Comment on above: Performed By: #### D IFF CBC ####[address] Hematocrit (Bld) [Volume fraction] 22.4 % Low 38.8-50.0 Comment on above: Performed By: #### D IFF CBC ####[address] Hemoglobin (Bld) [Mass/Vol] 7.0 g/dL Low 13.0-17.0 Comment on above: Performed By: #### D IFF CBC ####[id number] [place] [address] [facility] Hypochromasia Moderate Normal Comment on above: Performed By: #### D IFF CBC ####[address] [address] [facility] Lymphocytes/100 WBC (Bld) 11 % Low 18-42 Comment on above: Performed By: #### D IFF CBC ####[address] [address] [facility] MCH (RBC) [Entitic mass] 30.1 pg Normal 27.5-35.2 Comment on above: Performed By: #### D IFF CBC ####[address] [address] [facility] MCV (RBC) [Entitic vol] 95.8 fL Normal 83.5-101 [facility] Comment on above: Performed By: #### D IFF CBC ####[address] [address] [facility] Mean Corpuscular HGB Conc 31.4 g/dL Low 32.5-35.6 Comment on above: Performed By: #### D IFF CBC ####[address] [address] [facility] Metamyelocytes 2 % High 0-0 Comment on above: Performed By: #### D IFF CBC ####[address] [address] [facility] Monocytes/100 WBC (Bld) 5 % Normal 2-11 [facility] Comment on above: Performed By: #### D IFF CBC ####[address] [address] [facility] Myelocytes 1 % High 0-0 Comment on above: Performed By: #### D IFF CBC ####[place] [id number] [facility] Platelet Estimate Normal Normal Normal [facility] Comment on above: Performed By: #### D IFF CBC ####[address] [place] [address] [facility] Platelet mean volume (Bld) [Entitic vol] 7.9 fL Normal 6.6-10.1 Comment on above: Performed By: #### D IFF CBC ####[address] [address] [facility] Platelet Morphology Normal Normal Normal [facility] Comment on above: Result Comment: PERF ORMED BY: [facility] [address] [place] [id number] PATHOLOGIST CYBER SECURITY MANAGER DI CORONEL M.D. Performed By: #### D IFF CBC ####[address] [address] [facility] Platelets (Bld) [#/Vol] 178 10*3/uL Normal 150-450 Comment on above: Performed By: #### D IFF CBC ####[address] [place] [address] [facility] RBC (Bld) [#/Vol] 2.34 10*6/uL Low 3.90-5.60 [facility] Comment on above: Performed By: #### D IFF CBC ####[address] [address] [facility] Segmented neutrophils/100 WBC (Bld) 71 % High 50-70 Comment on above: Performed By: #### D IFF CBC ####[address] [place] [address] [facility] Stomatocytes Moderate Normal Comment on above: Performed By: #### D IFF CBC ####[address] [address] [facility] WBC (Bld) [#/Vol] 10.2 10*3/uL Normal 4.1-10.5 [facility] Comment on above: Performed By: #### D IFF CBC ####[address] [address] [address] [place] [address] [facility] Eosinophils/100 WBC Manual c nt (Bld)Ordered By: Jessica Macdonald on 05-05-2023 Eosinophils/100 WBC (Bld) 8 % 1-3 Ferritinon 05-05-2023 Ferritin [Mass/Vol] 1147.6 ng/mL High 23.9-336.2 [facility] Comment on above: Performed By: #### V [id number], FE and TIBC, DHRUV ####[facility] [id number] [place] [address] [facility] Ferritin [Mass/volume] in Se rum or PlasmaOrdered By: Jessica Macdonald on 05-05-2023 Ferritin [Mass/Vol] 1147.6 ng/mL 23.9-336.2 [facility] Folate [Mass/volume] in Seru m or PlasmaOrdered By: Jessica Macdonald on 05-05-2023 Folate [Mass/Vol] 36.0 ng/mL >5.9 [facility] Comment on above: Folate reference ran ge: >5.9 ng/mlThe WHO technical consultation on folate and vitamin [id number] has determined that folate concentrations lessthan 4 ng/ml are considered deficient. Hypochromia LM Ql (Bld)Order ed By: Jessica Macdonald on 05-05-2023 Hypochromia Ql (Bld) Moderate [facility] Iron [Mass/volume] in Serum or PlasmaOrdered By: Jessica Macdonald on 05-05-2023 Iron [Mass/Vol] 39 ug/dL 50-212 Iron and TIBC Profileon % Iron Saturation 20.0 % Normal 20-50 [facility] Comment on above: Performed By: #### V [id number], FE and TIBC, DHRUV ####[facility] [id number] [place] [address] [facility] Iron [Mass/Vol] 39 ug/dL Low 50-212 Comment on above: Performed By: #### V [id number], FE and TIBC, DHRUV ####[facility] [id number] [place] [address] [facility] Total Iron Binding Capacity 195 ug/dL Low 255-450 Comment on above: Performed By: #### V [id number], FE and TIBC, DHRUV ####[facility] [id number] [place] [address] [facility] Transferrin [Mass/Vol] 139 mg/dL Low 203-362 [facility] Comment on above: Performed By: #### V [id number], FE and TIBC, DHRUV ####[facility] [id number] [place] [address] [facility] Iron binding capacity [Mass/ volume] in Serum or PlasmaOrdered By: Jessica Macdonald on 05-05-2023 Iron binding capacity [Mass/Vol] 195 ug/dL 255-450 Iron saturation [Mass Fracti on] in Serum or PlasmaOrdered By: Jessica Macdonald on 05-05-2023 Iron saturation [Mass fraction] 20.0 % 20-50 LeukoReduced RBCon 3 LeukoReduced RBC TRANSFUSED 05/05/23 1512 Normal Lymphocytes/100 WBC Manual c nt (Bld)Ordered By: Jessica Macdonald on 05-05-2023 Lymphocytes/100 WBC (Bld) 11 % 18-42 Metamyelocytes/100 WBC Manua l cnt (Bld)Ordered By: Jessica Macdonald on 05-05-2023 Metamyelocytes/100 WBC (Bld) 2 % 0-0 Monocytes/100 WBC Manual cnt (Bld)Ordered By: Jessica Macdonald on 05-05-2023 Monocytes/100 WBC (Bld) 5 % 2-11 [facility] Myelocytes/100 WBC Manual cn t (Bld)Ordered By: Jessica Macdonald on 05-05-2023 Myelocytes/100 WBC (Bld) 1 % 0-0 Phosphate [Mass/volume] in S adolph or PlasmaOrdered By: Jessica Macdonald on 05-05-2023 Phosphate [Mass/Vol] 5.8 mg/dL 3.7-7.2 [facility] Platelet adequacy [Presence] in Blood by Light microscopyOrdered By: Jessica Macdonald on 05-05-2023 Platelets LM Ql (Bld) Normal Normal [facility] Platelet morphology finding [Identifier] in BloodOrdered By: Jessica Macdonald on 05-05-2023 Platelet morphology finding Nom (Bld) Normal Normal RBC morphologyOrdered By: Susan Macdonald on 05-05-2023 RBC morphology finding Nom (Bld) N/A Red blood cell stomatocyte d etectionOrdered By: Jessica Macdonald on 05-05-2023 Stomatocytes LM Ql (Bld) Moderate Renal Function Panelon 05-05 Albumin [Mass/Vol] 3.1 g/dL Low 3.5-5.7 [facility] Comment on above: Performed By: #### B MP, MG #### [facility] [address] Anion gap [Moles/Vol] 14.7 mmol/L Normal 6.0-15.0 [facility] Comment on above: Performed By: #### B MP, MG #### [facility] [address] [place] [address] [place] Calcium [Mass/Vol] 7.3 mg/dL Low 8.6-10.3 [facility] Comment on above: Performed By: #### B MP, MG #### [facility] [address] [place] [id number] [place] Chloride [Moles/Vol] 96 mmol/L Low 98-107 [facility] Comment on above: Performed By: #### B MP, MG #### [facility] [address] [place] [address] [place] CO2 [Moles/Vol] 27.0 mmol/L Normal 21.0-31.0 [facility] Comment on above: Performed By: #### B MP, MG #### [facility] [address] [place] [id number] [place] Creatinine [Mass/Vol] 6.65 mg/dL High 0.70-1.30 [facility] Comment on above: Performed By: #### B MP, MG #### [place] [address] [place] Creatinine Clr Calc Pharmacy 13.40 Normal Comment on above: Result Comment: PERF ORMED BY: [place] [address] PATHOLOGIST CYBER SECURITY MANAGER DI CORONEL M.D. Performed By: #### B MP, MG #### [place] [address] [place] GFR/1.73 sq M.predicted MDRD (S/P/Bld) [Vol rate/Area] 10.171 mL/min/{1.73_m2} Normal [facility] Comment on above: Performed By: #### B MP, MG #### [address] Glucose [Mass/Vol] 96 mg/dL Normal 70-100 [facility] Comment on above: Result Comment: [facility] Glucose Reference Range is dependent on time and content of last meal. Glucose of more than 200 mg/dL in a nonstressed, ambulatory subject supports the diagnosis of Diabetes Mellitus. ADA recommended reference range Performed By: #### B MP, MG #### [place] [address] [place] Phosphate [Mass/Vol] 5.8 mg/dL Normal 3.7-7.2 [facility] Comment on above: Performed By: #### B MP, MG #### [place] [address] [place] Potassium [Moles/Vol] 3.7 mmol/L Normal 3.5-5.1 [facility] Comment on above: Performed By: #### B MP, MG #### [place] [address] [place] Sodium [Moles/Vol] 134 mmol/L Low 136-145 [facility] Comment on above: Performed By: #### B MP, MG #### [place] [address] [place] Urea nitrogen [Mass/Vol] 53 mg/dL High 7-25 Comment on above: Performed By: #### B MP, MG #### [facility] [address] Segmented neutrophils/100 WB C Manual cnt (Bld)Ordered By: Jessica Macdonald on 05-05-2023 Segmented neutrophils/100 WBC (Bld) 71 % 50-70 Transferrin [Mass/volume] in Serum or PlasmaOrdered By: Jessica Macdonald on 05-05-2023 Transferrin [Mass/Vol] 139 mg/dL 203-362 [facility] Type and Screenon 05-05-2023 ABO and Rh group Nom (Bld) Blood group A Rh(D) positive Normal Comment on above: Order Comment: Trans fuse now? Y Number of units to transfuse now? 1 Vit. B12/Folate Profileon Cobalamin (Vitamin B12) [Mass/Vol] 3439 pg/mL High 180-914 Comment on above: Performed By: #### V [id number], FE and TIBC, DHRUV ####[facility] [id number] [address] Folate 36.0 ng/mL Normal >5.9 Comment on above: Result Comment: Irma te reference range: >5.9 ng/ml The WHO technical consultation on folate and vitamin b12 deficiencies has determined that folate concentrations less than 4 ng/ml are considered deficient. PERFORMED BY: [facility] [address] [facility] [place] [address] PATHOLOGIST CYBER SECURITY MANAGER DI CORONEL M.D. Performed By: #### V [id number], FE and TIBC, DHRUV ####[facility] [id number] [place] [id number] [facility] Vitamin B12 ser/plasOrdered By: Jessica Macdonald on 05-05-2023 Cobalamin (Vitamin B12) [Mass/Vol] 3439 pg/mL 180-914 Arterial Blood Gason 05-03- 023 ABG Base Excess -1.3 mmol/L Normal -3.0-3.0 [facility] Comment on above: Performed By: #### A BG ####Point of Care testing, ABG Frac Inspired O2 50 % Normal [facility] Comment on above: Performed By: #### A BG ####Point of Care testing, ABG Oxygen Content 5.7 mmol/L Low 6.6-9.7 [facility] Comment on above: Performed By: #### A BG ####Point of Care testing, ABG Oxygen Saturation 94.5 % Low 95.0-100.0 [facility] Comment on above: Performed By: #### A BG ####Point of Care testing, ABG PCO2 69.8 mm[Hg] Off scale high 35.0-45.0 Comment on above: Performed By: #### A BG ####Point of Care testing, ABG PH 7.21 Low 7.35-7.45 Comment on above: Performed By: #### A BG ####Point of Care testing, ABG PO2 79.7 mm[Hg] Low 80.0-100.0 Comment on above: Performed By: #### A BG ####Point of Care testing, CO2 [Moles/Vol] 29.5 mmol/L High 23.0-27.0 [facility] Comment on above: Performed By: #### A BG ####Point of Care testing, HCO3 (Bld) [Moles/Vol] 27.4 mmol/L Normal 23.0-29.0 [facility] Comment on above: Performed By: #### A BG ####Point of Care testing, Respiratory Critical Normal [facility] Comment on above: Result Comment: Crit ical Value called on: 05/03/2023 at 18:19 PERFORMED BY: [facility] [address] [place] [address] PATHOLOGIST CYBER SECURITY MANAGER DI CORONEL M.D. Performed By: #### A BG ####Point of Care testing, VBG Draw Site Right Brachial Normal [facility] Comment on above: Performed By: #### A BG ####Point of Care testing, Basic Metabolic Panelon 08-3 Anion gap [Moles/Vol] 11.3 mmol/L Normal 6.0-15.0 [facility] Comment on above: Performed By: #### B MP #### [facility] [address] Calcium [Mass/Vol] 8.2 mg/dL Low 8.6-10.3 [facility] Comment on above: Performed By: #### B MP #### [facility] [address] Chloride [Moles/Vol] 92 mmol/L Low 98-107 [facility] Comment on above: Performed By: #### B MP #### [address] CO2 [Moles/Vol] 30.3 mmol/L Normal 21.0-31.0 [facility] Comment on above: Performed By: #### B MP #### [address] Creatinine [Mass/Vol] 5.78 mg/dL Significan t change up 0.70-1.30 Comment on above: Performed By: #### B MP #### [place] [address] [place] Creatinine Clr Calc Pharmacy 15.27 [facility] Comment on above: Result Comment: PERF ORMED BY: [place] [address] PATHOLOGIST CYBER SECURITY MANAGER DI CORONEL M.D. Performed By: #### B MP #### [place] [address] [place] GFR/1.73 sq M.predicted MDRD (S/P/Bld) [Vol rate/Area] 12.034 mL/min/{1.73_m2} [facility] Comment on above: Performed By: #### B MP #### [address] Glucose [Mass/Vol] 90 mg/dL Normal 70-100 [facility] Comment on above: Result Comment: Center Glucose Reference Range is dependent on time and content of last meal. Glucose of more than 200 mg/dL in a nonstressed, ambulatory subject supports the diagnosis of Diabetes Mellitus. ADA recommended reference range Performed By: #### B MP #### [facility] [address] Potassium [Moles/Vol] 3.6 mmol/L Normal 3.5-5.1 [facility] Comment on above: Performed By: #### B MP #### [facility] [address] Sodium [Moles/Vol] 130 mmol/L Low 136-145 [facility] Comment on above: Performed By: #### B MP #### [facility] [address] Urea nitrogen [Mass/Vol] 47 mg/dL High 7-25 Comment on above: Performed By: #### B MP #### [facility] [address] Laboratory - Chemistry and C hemistry - challengeOrdered By: Bradford Henriquez on 05-03-2023 CO2 [Moles/Vol] 29.5 mmol/L 23.0-27.0 [facility] HCO3 (Bld) [Moles/Vol] 27.4 mmol/L 23.0-29.0 [facility] No Panel InformationOrdered By: Bradford Henriquez on 05-03-2023 Arterial Blood Base Excess -1.3 mmol/L -3.0-3.0 Arterial Blood Oxygen Content 5.7 mmol/L 6.6-9.7 Arterial Blood Oxygen Saturation 94.5 % 95.0-100.0 Arterial Blood Partial Pressure CO2 69.8 mm[Hg] 35.0-45.0 Arterial Blood Partial Pressure O2 79.7 mm[Hg] 80.0-100.0 Arterial Blood pH 7.21 7.35-7.45 [facility] Blood Gas Critical Value See comment Comment on above: Critical Value alistair sepulveda on: 05/03/2023 at 18:19 Blood Gas Sample Site Right brachial FiO2 50 % XR chest 1V portableon 05-03 XR chest 1V portable [facility] [address] [place] [address] [place] [address] XRay Report Signed Patient: Ruddy Palmer MR#: [id number] 9 : 1985 Acct:[id number] Age/Sex: 37 / M ADM Date: 04/28/23 Loc: Room: [address] [place] [address] Type: ADM IN Attending Dr: Bradford Henriquez [...] Rojas Navarrete M.D.05/03/2023 7:23 PM Dictation Location: [place] [address] Transcribed By: [facility] 05/03/231922 Dictated By: Rojas Navarrete DO 05/03/231917 Signed By: 05/03/231922 Normal Anisocytosis LM Ql (Bld)Orde red By: Bradford Henriquez on 05-02-2023 Anisocytosis Ql (Bld) Slight Fir [facility] Basic Metabolic Panelon 04-05 Anion gap [Moles/Vol] 11.7 mmol/L Normal 6.0-15.0 [facility] Comment on above: Performed By: #### B MP, SCAN CBC ####[facility] [id number] [address] Calcium [Mass/Vol] 8.2 mg/dL Low 8.6-10.3 [facility] Comment on above: Performed By: #### B MP, SCAN CBC ####[facility] [id number] [place] [id number] [facility] Chloride [Moles/Vol] 95 mmol/L Low 98-107 [facility] Comment on above: Performed By: #### B MP, SCAN CBC ####[facility] [id number] [address] CO2 [Moles/Vol] 30.1 mmol/L Normal 21.0-31.0 [facility] Comment on above: Performed By: #### B MP, SCAN CBC ####[facility] [id number] [address] Creatinine [Mass/Vol] 4.05 mg/dL Significan t change up 0.70-1.30 Comment on above: Performed By: #### B MP, SCAN CBC ####[address] [place] [address] [place] Creatinine Clr Calc Pharmacy 21.34 Normal Comment on above: Result Comment: PERF ORMED BY: [facility] [address] [place] [address] PATHOLOGIST CYBER SECURITY MANAGER DI CORONEL M.D. Performed By: #### B MP, SCAN CBC ####[place] [id number] GFR/1.73 sq M.predicted MDRD (S/P/Bld) [Vol rate/Area] 18.441 mL/min/{1.73_m2} Normal [facility] Comment on above: Performed By: #### B MP, SCAN CBC ####[place] [place] [id number] [facility] Glucose [Mass/Vol] 93 mg/dL Normal 70-100 [facility] Comment on above: Result Comment: Center Glucose Reference Range is dependent on time and content of last meal. Glucose of more than 200 mg/dL in a nonstressed, ambulatory subject supports the diagnosis of Diabetes Mellitus. ADA recommended reference range Performed By: #### B MP, SCAN CBC ####[facility] [id number] [address] Potassium [Moles/Vol] 3.8 mmol/L Normal 3.5-5.1 [facility] Comment on above: Performed By: #### B MP, SCAN CBC ####[facility] [id number] [address] Sodium [Moles/Vol] 133 mmol/L Low 136-145 [facility] Comment on above: Performed By: #### B MP, SCAN CBC ####[facility] [id number] [address] Urea nitrogen [Mass/Vol] 34 mg/dL High 7-25 Comment on above: Performed By: #### B MP, SCAN CBC ####[facility] [id number] [address] PSA Total (Not a Screen)on 0 05-02-2023 PSA Total (Not a Screen) 14.530 ng/mL High 0.000-4.00 0 Comment on above: Result Comment: PERF ORMED BY: [place] [address] PATHOLOGIST CYBER SECURITY MANAGER DI CORONEL M.D. Performed By: #### B MP, MG #### [facility] [address] Platelets Large [Presence] i n Blood by Light microscopyOrdered By: Bradford Henriquez on 05-02-2023 Platelets Large LM Ql (Bld) [facility] Poikilocytosis [Presence] in Blood by Light microscopyOrdered By: Bradford Henriquez on 05-02-2023 Poikilocytosis LM Ql (Bld) [facility] Polychromasia [Presence] in Blood by Light microscopyOrdered By: Bradford Henriquez on 05-02-2023 Polychromasia LM Ql (Bld) [facility] Prostate specific Ag [Mass/v olume] in Serum or PlasmaOrdered By: Kostas Wade on 05-02-2023 Prostate specific Ag [Mass/Vol] 14.530 ng/mL 0.000-4.00 0 Scan and CBCon 05-02-2023 Anisocytosis Ql (Bld) Slight Normal Fir [facility] Comment on above: Performed By: #### B MP, SCAN CBC ####[facility] [id number] [place] [address] [facility] Basophils (Bld) [#/Vol] 0.0 10*3/uL Normal 0.0-0.2 Comment on above: Performed By: #### B MP, SCAN CBC ####[place] [address] [place] [id number] [facility] Basophils/100 WBC (Bld) 0.2 % Normal . [facility] Comment on above: Performed By: #### B MP, SCAN CBC ####[place] [address] [place] [id number] [facility] Eosinophils (Bld) [#/Vol] 0.7 10*3/uL High 0.0-0.45 Comment on above: Performed By: #### B MP, SCAN CBC ####[place] [address] [place] [id number] [facility] Eosinophils/100 WBC (Bld) 6.0 % Normal . Comment on above: Performed By: #### B MP, SCAN CBC ####[place] [address] [place] [id number] [facility] Erythrocyte distribution width (RBC) [Ratio] 14.3 % Normal 12.0-14.8 Comment on above: Performed By: #### B MP, SCAN CBC ####[place] [address] [place] [address] [facility] Hematocrit (Bld) [Volume fraction] 25.4 % Low 38.8-50.0 Comment on above: Performed By: #### B MP, SCAN CBC ####[place] [address] [place] [address] [facility] Hemoglobin (Bld) [Mass/Vol] 8.2 g/dL Low 13.0-17.0 Comment on above: Performed By: #### B MP, SCAN CBC ####[address] Hypochromasia Slight Normal Comment on above: Performed By: #### B MP, SCAN CBC ####[address] Large Platelets Slight Normal Comment on above: Result Comment: PERF ORMED BY: [facility] [address] [place] [address] PATHOLOGIST CYBER SECURITY MANAGER DI CORONEL M.D. Performed By: #### B MP, SCAN CBC ####[address] Lymphocytes (Bld) [#/Vol] 1.0 10*3/uL Normal 1.00-4.8 Comment on above: Performed By: #### B MP, SCAN CBC ####[address] Lymphocytes/100 WBC (Bld) 8.8 % Normal . Comment on above: Performed By: #### B MP, SCAN CBC ####[address] MCH (RBC) [Entitic mass] 29.8 pg Normal 27.5-35.2 Comment on above: Performed By: #### B MP, SCAN CBC ####[address] MCV (RBC) [Entitic vol] 92.9 fL Normal 83.5-101 [facility] Comment on above: Performed By: #### B MP, SCAN CBC ####[address] Mean Corpuscular HGB Conc 32.1 g/dL Low 32.5-35.6 Comment on above: Performed By: #### B MP, SCAN CBC ####[address] Monocytes (Bld) [#/Vol] 1.3 10*3/uL High 0.0-0.8 Comment on above: Performed By: #### B MP, SCAN CBC ####[place] [id number] [facility] Monocytes/100 WBC (Bld) 11.5 % Normal . [facility] Comment on above: Performed By: #### B MP, SCAN CBC ####[place] [id number] [facility] Neutrophils (Bld) [#/Vol] 8.1 10*3/uL High 1.8-7.7 Comment on above: Performed By: #### B MP, SCAN CBC ####[place] [id number] [facility] Neutrophils/100 WBC (Bld) 73.5 % Normal . Comment on above: Performed By: #### B MP, SCAN CBC ####[place] [id number] [facility] NRBC% 0.1 /100{WBC} Normal 0-0.5 Comment on above: Performed By: #### B MP, SCAN CBC ####[place] [id number] [facility] Platelet Estimate Decreased Normal Normal [facility] Comment on above: Performed By: #### B MP, SCAN CBC ####[place] [id number] [facility] Platelet mean volume (Bld) [Entitic vol] 9.7 fL Normal 6.6-10.1 Comment on above: Performed By: #### B MP, SCAN CBC ####[address] [address] [facility] Platelets (Bld) [#/Vol] 66 10*3/uL Low 150-450 [facility] Comment on above: Performed By: #### B MP, SCAN CBC ####[place] [id number] [facility] Poikilocytosis Slight Normal Comment on above: Performed By: #### B MP, SCAN CBC ####[facility] Anm4796 [place] [id number] [facility] Polychromasia Slight Normal Comment on above: Performed By: #### B MP, SCAN CBC ####[facility] Lbn0855 [place] [address] [facility] RBC (Bld) [#/Vol] 2.73 10*6/uL Low 3.90-5.60 [facility] Comment on above: Performed By: #### B MP, SCAN CBC ####[facility] Wom8090 [place] [address] [facility] Stomatocytes Moderate Normal Comment on above: Performed By: #### B MP, SCAN CBC ####[facility] Lln9209 [place] [id number] [facility] Tear Drop Cells Slight Normal Comment on above: Performed By: #### B MP, SCAN CBC ####[facility] Neh5655 [place] [id number] [facility] WBC (Bld) [#/Vol] 11.0 10*3/uL High 4.1-10.5 [facility] Comment on above: Performed By: #### B MP, SCAN CBC ####[facility] Pmg0079 [place] [id number] [facility] Teardrop cell detectionOrder ed By: Bradford Henriquez on 05-02-2023 Dacrocytes LM Ql (Bld) Slight [facility] Bacterial blood cultureOrder ed By: Bradford Henriquez on 05-01-2023 Bacteria identified Cx Nom (Bld) NO GROWTH 5 DAYS Basic Metabolic Panelon 04-05 Anion gap [Moles/Vol] 14.9 mmol/L Normal 6.0-15.0 [facility] Comment on above: Order Comment: per r n draw last Performed By: #### B MP, CBCNO ####[address] Calcium [Mass/Vol] 8.4 mg/dL Low 8.6-10.3 [facility] Comment on above: Order Comment: per r n draw last Performed By: #### B MARQUEZ, CBCNO ####[place] [id number] [place] [address] [facility] Chloride [Moles/Vol] 95 mmol/L Low 98-107 [facility] Comment on above: Order Comment: per r n draw last Performed By: #### B MARQUEZ, CBCNO ####[place] [id number] [place] [address] [facility] CO2 [Moles/Vol] 23.9 mmol/L Normal 21.0-31.0 [facility] Comment on above: Order Comment: per r n draw last Performed By: #### B MARQUEZ, CBCNO ####[place] [id number] [place] [address] [facility] Creatinine [Mass/Vol] 6.03 mg/dL Significan t change up 0.70-1.30 Comment on above: Order Comment: per r n draw last Performed By: #### B MARQUEZ, CBCNO ####[place] [id number] [place] [address] [facility] Creatinine Clr Calc Pharmacy 14.35 Normal Comment on above: Order Comment: per r n draw last Result Comment: PERF ORMED BY: [facility] [address] [place] [id number] PATHOLOGIST CYBER SECURITY MANAGER DI CORONEL M.D. Performed By: #### B MARQUEZ, CBCNO ####[place] [id number] [place] [address] [facility] GFR/1.73 sq M.predicted MDRD (S/P/Bld) [Vol rate/Area] 11.439 mL/min/{1.73_m2} Normal [facility] Comment on above: Order Comment: per r n draw last Performed By: #### B MARQUEZ, CBCNO ####[place] [id number] [place] [address] [facility] Glucose [Mass/Vol] 82 mg/dL Normal 70-100 [facility] Comment on above: Order Comment: per r n draw last Result Comment: Center Glucose Reference Range is dependent on time and content of last meal. Glucose of more than 200 mg/dL in a nonstressed, ambulatory subject supports the diagnosis of Diabetes Mellitus. ADA recommended reference range Performed By: #### B MARQUEZ, CBCNO ####[facility] Ojd9944 [place] [address] [facility] Potassium [Moles/Vol] 3.8 mmol/L Normal 3.5-5.1 [facility] Comment on above: Order Comment: per r n draw last Performed By: #### B MARQUEZ, CBCNO ####[place] [id number] [place] [address] [facility] Sodium [Moles/Vol] 130 mmol/L Low 136-145 [facility] Comment on above: Order Comment: per r n draw last Performed By: #### B MARQUEZ, CBCNO ####[place] [id number] [place] [address] [facility] Urea nitrogen [Mass/Vol] 58 mg/dL High 7-25 Comment on above: Order Comment: per r n draw last Performed By: #### B MARQUEZ, CBCNO ####[place] [id number] [place] [address] [facility] Blood Cultureon 05-01-2023 Bacteria identified Cx Nom (Bld) NO GROWTH 5 DAYS PERFORMED BY: [facility] [address] [place] [address] PATHOLOGIST CYBER SECURITY MANAGER DI CORONEL M.D. [facility] Comment on above: Performed By: #### C UBLD ####[place] [id number] [place] [address] [facility] Bacteria identified Cx Nom (Bld) NO GROWTH 5 DAYS PERFORMED BY: [facility] [address] [place] [id number] PATHOLOGIST CYBER SECURITY MANAGER DI CORONEL M.D. [facility] Comment on above: Performed By: #### C UBLD ####[address] [address] [facility] CT abdomen pelvis wo conon 0 05-01-2023 CT abdomen pelvis wo con [facility] Main [place] [address] [place] [address] CT Scan Report Signed Patient: Ruddy Palmer MR#: [id number] 9 : 1985 Acct:[id number] Age/Sex: 37 / M ADM Date: 04/28/23 Loc: Room: [address] [place] [address] Type: ADM IN Attending Dr: Bradford Henriquez [...] Art Jr., D.OIsidra05/01/2023 3:38 PM Dictation Location: [place] [address] Transcribed By: DESEAN 05/01/23 1538 Dictated By: Maurilio Art Jr, DO 05/01/23 1534 Signed By: 05/01/23 1538 Normal Fecal occult blood detection by immunochemistryOrdered By: Bradford Henriquez on 05-01-2023 Hemoglobin.gastrointest inal Ql (Stl) Hemogram CBC Without Diffon 05-01-2023 Erythrocyte distribution width (RBC) [Ratio] 14.1 % Normal 12.0-14.8 Comment on above: Order Comment: per r n draw last Performed By: #### B MARQUEZ CBCNO ####[address] Hematocrit (Bld) [Volume fraction] 26.5 % Low 38.8-50.0 Comment on above: Order Comment: per r n draw last Performed By: #### B MARQUEZ CBCNO ####[place] [id number] [facility] Hemoglobin (Bld) [Mass/Vol] 8.3 g/dL Low 13.0-17.0 Comment on above: Order Comment: per r n draw last Performed By: #### B MARQUEZ CBCNO ####[place] [id number] [facility] MCH (RBC) [Entitic mass] 29.2 pg Normal 27.5-35.2 Comment on above: Order Comment: per r n draw last Performed By: #### B MARQUEZ, CBCNO ####[place] [id number] [facility] MCV (RBC) [Entitic vol] 92.9 fL Normal 83.5-101 [facility] Comment on above: Order Comment: per r n draw last Performed By: #### B MARQUEZ, CBCNO ####[place] [id number] [facility] Mean Corpuscular HGB Conc 31.5 g/dL Low 32.5-35.6 Comment on above: Order Comment: per r n draw last Performed By: #### B MARQUEZ, CBCNO ####[place] [id number] [facility] Platelet mean volume (Bld) [Entitic vol] 10.2 fL High 6.6-10.1 Comment on above: Order Comment: per r n draw last Result Comment: PERF ORMED BY: [facility] [address] [address] PATHOLOGIST CYBER SECURITY MANAGER DI CORONEL M.D. Performed By: #### B MP, CBCNO ####[place] [id number] [facility] Platelets (Bld) [#/Vol] 63 10*3/uL Low 150-450 [facility] Comment on above: Order Comment: per r n draw last Performed By: #### B MP, CBCNO ####[place] [id number] [facility] RBC (Bld) [#/Vol] 2.85 10*6/uL Low 3.90-5.60 [facility] Comment on above: Order Comment: per r n draw last Performed By: #### B MP, CBCNO ####[address] WBC (Bld) [#/Vol] 13.1 10*3/uL High 4.1-10.5 [facility] Comment on above: Order Comment: per r n draw last Performed By: #### B MARQUEZ, CBCNO ####[place] [id number] [facility] Stool Occult Blood (Guaiac)o n 05-01-2023 Stool Occult Blood (Guaiac) Occult Blood Positive for Occult Blood by Guaiac Methodology ------ Reference range = Negative PERFORMED BY: [facility] [address] [address] PATHOLOGIST CYBER SECURITY MANAGER DI CORONEL M.D. [facility] Comment on above: Performed By: #### C UU, URDS #### [address] Basic Metabolic Panelon 08-2 Anion gap [Moles/Vol] 10.6 mmol/L Normal 6.0-15.0 [facility] Comment on above: Performed By: #### B MP, MG #### [address] Calcium [Mass/Vol] 8.4 mg/dL Low 8.6-10.3 [facility] Comment on above: Performed By: #### B MP, MG #### [address] Chloride [Moles/Vol] 97 mmol/L Low 98-107 [facility] Comment on above: Performed By: #### B MP, MG #### [address] CO2 [Moles/Vol] 27.1 mmol/L Normal 21.0-31.0 [facility] Comment on above: Performed By: #### B MP, MG #### [address] Creatinine [Mass/Vol] 4.28 mg/dL Significan t change up 0.70-1.30 Comment on above: Performed By: #### B MP, MG #### [address] Creatinine Clr Calc Pharmacy 20.75 [facility] Comment on above: Result Comment: PERF ORMED BY: [place] [address] PATHOLOGIST CYBER SECURITY MANAGER DI CORONEL M.D. Performed By: #### B MP, MG #### [address] GFR/1.73 sq M.predicted MDRD (S/P/Bld) [Vol rate/Area] 17.258 mL/min/{1.73_m2} Normal [facility] Comment on above: Performed By: #### B MP, MG #### [facility] [address] Glucose [Mass/Vol] 86 mg/dL Normal 70-100 [facility] Comment on above: Result Comment: Center Glucose Reference Range is dependent on time and content of last meal. Glucose of more than 200 mg/dL in a nonstressed, ambulatory subject supports the diagnosis of Diabetes Mellitus. ADA recommended reference range Performed By: #### B MP, MG #### [facility] [address] Potassium [Moles/Vol] 3.7 mmol/L Normal 3.5-5.1 [facility] Comment on above: Performed By: #### B MP, MG #### [facility] [address] Sodium [Moles/Vol] 131 mmol/L Low 136-145 [facility] Comment on above: Performed By: #### B MP, MG #### [facility] [address] Urea nitrogen [Mass/Vol] 43 mg/dL High 7-25 Comment on above: Performed By: #### B MP, MG #### [facility] [address] Blood Cultureon 04-30-2023 Bacteria identified Cx [...] Tobramycin I 8 Trimethoprim/Sulfamethox azole S <0.5 [employer] BC[facility] Panel results called at 0308 on [...] Not detected Streptococcus pneumoniae - reported at [facility] Not detected Proteus sp DNA [Presence] by [...] culture Not detected Group A (Streptococcus pyogenes) [id number] Not detected Group B Strep (Streptococcus agalactiae) [...] in Isolate (more content not included)... Normal Comment on above: Performed By: #### C UBLD ####[facility] Hemogram CBC Without Diffon 04-30-2023 Erythrocyte distribution width (RBC) [Ratio] 14.2 % Normal 12.0-14.8 Comment on above: Performed By: #### B MP, MG #### [facility] [address] Hematocrit (Bld) [Volume fraction] 26.0 % Low 38.8-50.0 Comment on above: Performed By: #### B MP, MG #### [address] Hemoglobin (Bld) [Mass/Vol] 8.3 g/dL Low 13.0-17.0 Comment on above: Performed By: #### B MP, MG #### [address] MCH (RBC) [Entitic mass] 29.6 pg Normal 27.5-35.2 Comment on above: Performed By: #### B MP, MG #### [address] MCV (RBC) [Entitic vol] 92.7 fL Normal 83.5-101 [facility] Comment on above: Performed By: #### B MP, MG #### [address] Mean Corpuscular HGB Conc 32.0 g/dL Low 32.5-35.6 Comment on above: Performed By: #### B MP, MG #### [address] Platelet mean volume (Bld) [Entitic vol] 9.9 fL Normal 6.6-10.1 Comment on above: Result Comment: PERF ORMED BY: [place] [address] PATHOLOGIST CYBER SECURITY MANAGER DI CORONEL M.D. Performed By: #### B MP, MG #### [address] Platelets (Bld) [#/Vol] 59 10*3/uL Low 150-450 [facility] Comment on above: Performed By: #### B MP, MG #### [address] RBC (Bld) [#/Vol] 2.80 10*6/uL Low 3.90-5.60 [facility] Comment on above: Performed By: #### B MP, MG #### [facility] [address] WBC (Bld) [#/Vol] 14.4 10*3/uL High 4.1-10.5 [facility] Comment on above: Performed By: #### B MP, MG #### [facility] [address] Automated erythrocytes count in urine sediment (number/area)Ordered By: Dre Cardoza on 04-29-2023 RBC Auto (Urine sed) [#/Area] 20-49 [HPF] 0-4 Automated leukocytes count i n urine sediment (number/area)Ordered By: Dre Cardoza on 04-29-2023 WBC Auto (Urine sed) [#/Area] Innumerable [HPF] 0-4 Automated urine color determ inationOrdered By: Dre Cardoza on 04-29-2023 Color (U) [place] Critically abnormal Yellow Comment on above: Order Comment: Name Collection Type:: Straight Catheter Performed By: #### C BC, BMP #### [address] Basic Metabolic Panelon 04-05 Anion gap [Moles/Vol] 11.0 mmol/L Normal 6.0-15.0 [facility] Comment on above: Performed By: #### C UU, URDS #### [address] Calcium [Mass/Vol] 8.5 mg/dL Low 8.6-10.3 [facility] Comment on above: Performed By: #### C UU, URDS #### [address] Chloride [Moles/Vol] 97 mmol/L Low 98-107 [facility] Comment on above: Performed By: #### C UU, URDS #### [place] [address] [place] CO2 [Moles/Vol] 26.8 mmol/L Normal 21.0-31.0 [facility] Comment on above: Performed By: #### C UU, URDS #### [facility] [address] Creatinine [Mass/Vol] 5.30 mg/dL Significan t change up 0.70-1.30 Comment on above: Performed By: #### C UU, URDS #### [facility] [address] Creatinine Clr Calc Pharmacy 16.95 Normal Comment on above: Result Comment: PERF ORMED BY: [place] [address] PATHOLOGIST CYBER SECURITY MANAGER DI CORONEL M.D. Performed By: #### C UU, URDS #### [address] GFR/1.73 sq M.predicted MDRD (S/P/Bld) [Vol rate/Area] 13.354 mL/min/{1.73_m2} Normal [facility] Comment on above: Performed By: #### C UU, URDS #### [address] Glucose [Mass/Vol] 78 mg/dL Normal 70-100 [facility] Comment on above: Result Comment: Center Glucose Reference Range is dependent on time and content of last meal. Glucose of more than 200 mg/dL in a nonstressed, ambulatory subject supports the diagnosis of Diabetes Mellitus. ADA recommended reference range Performed By: #### C UU, URDS #### [facility] [address] [place] [address] [place] Potassium [Moles/Vol] 4.8 mmol/L Normal 3.5-5.1 [facility] Comment on above: Performed By: #### C UU, URDS #### [facility] [address] [place] [address] [place] Sodium [Moles/Vol] 130 mmol/L Low 136-145 [facility] Comment on above: Performed By: #### C UU, URDS #### [facility] [address] [place] [address] [place] Urea nitrogen [Mass/Vol] 63 mg/dL Significant change up 03-28 Comment on above: Performed By: #### C UU, URDS #### [facility] [address] Bilirubin Test strip Ql (U)O rdered By: Dre Cardoza on 04-29-2023 Bilirubin Ql (U) 1+ Negative [facility] Dipstick and Microscopicon 0 04-29-2023 Appearance (U) Turbid Critically abnormal Clear Comment on above: Order Comment: Name Collection Type:: Straight Catheter Performed By: #### C BC, BMP #### [facility] [address] [place] [address] [place] Bacteria,Urine 4+ High None Seen Comment on above: Order Comment: Name Collection Type:: Straight Catheter Performed By: #### C BC, BMP #### [facility] [address] [place] [address] [place] Bilirubin,Urine 1+ High Negative Comment on above: Order Comment: Name Collection Type:: Straight Catheter Performed By: #### C BC, BMP #### [facility] [address] [place] [address] [place] Glucose Ql (U) Normal Normal Normal Comment on above: Order Comment: Name Collection Type:: Straight Catheter Performed By: #### C BC, BMP #### [facility] [address] [place] [id number] [place] Hyaline Casts,Urine 0-8 Normal 0-8 [facility] Comment on above: Order Comment: Name Collection Type:: Straight Catheter Performed By: #### C BC, BMP #### [facility] [address] [place] [id number] [place] Ketones Ql (U) Negative Normal Negative Comment on above: Order Comment: Name Collection Type:: Straight Catheter Performed By: #### C BC, BMP #### [facility] [address] [place] [address] Leukocyte esterase Test strip Ql (U) 4+ High Negative Comment on above: Order Comment: Name Collection Type:: Straight Catheter Performed By: #### C BC, BMP #### [address] Nitrite,Urine Positive High Negative Comment on above: Order Comment: Name Collection Type:: Straight Catheter Performed By: #### C BC, BMP #### [address] Occult Blood,Urine 3+ High Negative [facility] Comment on above: Order Comment: Name Collection Type:: Straight Catheter Result Comment: PERF ORMED BY: [place] [address] PATHOLOGIST CYBER SECURITY MANAGER DI CORONEL M.D. Performed By: #### C BC, BMP #### [address] RBC,Urine 20-49 High 0-4 Comment on above: Order Comment: Name Collection Type:: Straight Catheter Performed By: #### C BC, BMP #### [address] Specificy [place],Urine 1.015 Normal 1.00 1-1.03 0 Comment on above: Order Comment: Name Collection Type:: Straight Catheter Performed By: #### C BC, BMP #### [address] Squamous Epithelial Cell,Urine 0-1 Normal 0-2 Comment on above: Order Comment: Name Collection Type:: Straight Catheter Performed By: #### C BC, BMP #### [address] Urobilinogen,Urine Normal Normal Normal [facility] Comment on above: Order Comment: Name Collection Type:: Straight Catheter Performed By: #### C BC, BMP #### [address] WBC,Urine Innumerable High 0-4 Comment on above: Order Comment: Name Collection Type:: Straight Catheter Performed By: #### C BC, BMP #### [address] Yeast,Urine Rare Critically abnormal None Seen Comment on above: Order Comment: Name Collection Type:: Straight Catheter Result Comment: PERF ORMED BY: [place] [address] PATHOLOGIST CYBER SECURITY MANAGER DI CORONEL M.D. Performed By: #### C BC, BMP #### [address] Hemogram CBC Without Diffon 04-29-2023 Erythrocyte distribution width (RBC) [Ratio] 14.0 % Normal 12.0-14.8 Comment on above: Performed By: #### C UU, URDS #### [address] Hematocrit (Bld) [Volume fraction] 28.0 % Low 38.8-50.0 Comment on above: Performed By: #### C UU, URDS #### [address] Hemoglobin (Bld) [Mass/Vol] 9.0 g/dL Low 13.0-17.0 Comment on above: Performed By: #### C UU, URDS #### [address] MCH (RBC) [Entitic mass] 29.9 pg Normal 27.5-35.2 Comment on above: Performed By: #### C UU, URDS #### [address] MCV (RBC) [Entitic vol] 92.7 fL Normal 83.5-101 [facility] Comment on above: Performed By: #### C UU, URDS #### [address] Mean Corpuscular HGB Conc 32.2 g/dL Low 32.5-35.6 Comment on above: Performed By: #### C UU, URDS #### [facility] [address] Platelet mean volume (Bld) [Entitic vol] 10.6 fL High 6.6-10.1 Comment on above: Result Comment: PERF ORMED BY: [place] [address] PATHOLOGIST CYBER SECURITY MANAGER DI CORONEL M.D. Performed By: #### C UU, URDS #### [facility] [address] Platelets (Bld) [#/Vol] 65 10*3/uL Low 150-450 [facility] Comment on above: Performed By: #### C UU, URDS #### [address] RBC (Bld) [#/Vol] 3.03 10*6/uL Low 3.90-5.60 [facility] Comment on above: Performed By: #### C UU, URDS #### [address] WBC (Bld) [#/Vol] 14.9 10*3/uL High 4.1-10.5 [facility] Comment on above: Performed By: #### C UU, URDS #### [address] Ketones Auto test strip (U) [Mass/Vol]Ordered By: Dre Cardoza on 04-29-2023 Ketones (U) [Mass/Vol] Negative Negative [facility] - UrinalysisOrder ed By: Dre Cardoza on 04-29-2023 Hyaline casts LM Ql (Urine sed) 0-8 [LPF] 0-8 Nitrite Test strip Ql (U)Ord ered By: Dre Cardoza on 04-29-2023 Nitrite Ql (U) Positive Negative Specific gravity Auto test s trip (U) [Rel density]Ordered By: Dre Cardoza on 04-29-2023 Specific gravity (U) [Rel density] 1.015 1.001-1.03 0 Squamous epithelial cells de tection in urine sediment by light microscopyOrdered By: Dre Cardoza on 04-29-2023 Epithelial cells.squamous LM Ql (Urine sed) 0-1 [HPF] 0-2 Urine Cultureon 04-29-2023 Bacteria identified Cx Nom (U) ORGANISM: Escherichia coli (ESBL) (O:ESCCOLESBL) [place] Count >100,000 Results called at 0842 on [...] RESISTANT TO ALL B-LACTAM DRUGS. PERFORMED BY: [address] [place] [address] PATHOLOGIST CYBER SECURITY MANAGER DI CORONEL M.D. [facility] Comment on above: Performed By: #### C ERLIN, SOFÍA #### [address] Urine bacteria detection by automated methodOrdered By: Dre Cardoza on 04-29-2023 Bacteria Auto Ql (U) 4+ None Seen [facility] Urine clarity by refractomet ry automatedOrdered By: Dre Cardoza on 04-29-2023 Clarity Refractometry automated (U) Turbid Clear Urine culture routineOrdered By: Dre Cardoza on 04-29-2023 Bacteria identified Cx Nom (U) Escherichia coli (ESBL) [facility] Urine glucose measurement by automated test strip (mass/volume)Ordered By: Dre Cardoza on 04-29-2023 Glucose Auto test strip (U) [Mass/Vol] Normal mg/dL Normal Urine hemoglobin detection b y automated test stripOrdered By: Dre Cardoza on 04-29-2023 Hemoglobin Auto test strip Ql (U) 3+ Negative Urine leukocyte esterase det ection by automated test stripOrdered By: Dre Cardoza on 04-29-2023 Leukocyte esterase Auto test strip Ql (U) 4+ Negative Urine pH measurement by auto mated test stripOrdered By: Dre Cardoza on 04-29-2023 pH (U) 6.0 [pH] Normal 5.0-9.0 Comment on above: Order Comment: Name Collection Type:: Straight Catheter Performed By: #### C ERLIN, SOFÍA #### [place] [address] [place] Urine protein measurement by automated test strip (mass/volume)Ordered By: Dre Cardoza on 04-29-2023 Protein (U) [Mass/Vol] 300 mg/dL High Negative [facility] Comment on above: Order Comment: Name Collection Type:: Straight Catheter Performed By: #### C ERLIN, SOFÍA #### [place] [address] [place] Urobilinogen Auto test strip (U) [Mass/Vol]Ordered By: Dre Cardoza on 04-29-2023 Urobilinogen (U) [Mass/Vol] Normal mg/dL Normal Yeast detection in urine sed iment by light microscopyOrdered By: Dre Cardoza on 04-29-2023 Yeast LM Ql (Urine sed) Rare [HPF] None Seen [facility] Activated partial thrombopla stin time (aPTT) in platelet poor plasma by coagulation aOrdered By: Dre Cardoza on 04-28-2023 aPTT Coag (PPP) [Time] 36.0 s 25.1-36.5 [facility] Alanine aminotransferase [En zymatic activity/volume] in Serum or PlasmaOrdered By: Dre Cardoza on 04-28-2023 ALT [Catalytic activity/Vol] 27 U/L 7-52 Albumin [Mass/volume] in Ser um or Plasma by Bromocresol green (BCG) dye binding methoOrdered By: Dre Cardoza on 04-28-2023 Albumin BCG dye [Mass/Vol] 3.4 g/dL 3.5-5.7 Alkaline phosphatase [Enzyma tic activity/volume] in Serum or PlasmaOrdered By: Dre Cardoza on 04-28-2023 ALP [Catalytic activity/Vol] 107 U/L 34-104 Aspartate aminotransferase [ Enzymatic activity/volume] in Serum or PlasmaOrdered By: Dre Cardoza on 04-28-2023 AST [Catalytic activity/Vol] 27 U/L 13-39 Band form neutrophils/100 WB C Manual cnt (Bld)Ordered By: Dre Cardoza on 04-28-2023 Band form neutrophils/100 WBC (Bld) 36 % 0-5 Basophils Auto (Bld) [#/Vol] Ordered By: Dre Cardoza on 04-28-2023 Basophils (Bld) [#/Vol] N/A [facility] Basophils/100 WBC Auto (Bld) Ordered By: Dre Cardoza on 04-28-2023 Basophils/100 WBC (Bld) N/A [facility] Basophils/100 WBC Manual cnt (Bld)Ordered By: Dre Cardoza on 04-28-2023 Basophils/100 WBC (Bld) 0 % 0-2 [facility] Bilirubin.total [Mass/volume ] in Serum or PlasmaOrdered By: Dre Cardoza on 04-28-2023 Bilirubin [Mass/Vol] 0.3 mg/dL 0.3-1.0 [facility] Blood Cultureon 04-28-2023 Bacteria identified Cx Nom (Bld) BioFire BCID Panel results called at 0247 on 04/29/23 Gram Stain Gram Negative Bacilli ORGANISM: Escherichia coli (ESBL) (O:ESCCOLESBL) Organism Comments For TRINA Refer to Final Report of Blood Culture Collected Date 04/28/23 PERFORMED BY: [facility] [address] [place] [address] PATHOLOGIST CYBER SECURITY MANAGER DI CORONEL M.D. Normal Comment on above: Performed By: #### C UU, URDS #### [facility] [address] Bacteria identified Cx Nom (Bld) BioFire [...] culture Not detected Group A (Streptococcus pyogenes) [id number] Not detected Group B Strep (Streptococcus agalactiae) Not detected Streptococcus sp DNA [Presence] by UL with non-probe detection in Positive blood culture Not detected Paola tropicalis DNA [Presence] by LU with non-probe detection in Positive blood culture Not detected Vancomycin resistance Roland + vanB genes [Presence] by Molecular method Not Applicable Carbapenem resistance blaVIM gene [Presence] by Molecular method Not detected Colistin resistance mcr-1 gene [Presence] b (more content not included)... Normal Comment on above: Performed By: #### C BC, BMP #### [address] Rao cells [Presence] in Blo od by Light microscopyOrdered By: Dre Cardoza on 04-28-2023 Rao cells LM Ql (Bld) Slight Fi [facility] Calcium [Mass/volume] in Ser um or PlasmaOrdered By: Dre Cardoza on 04-28-2023 Calcium [Mass/Vol] 9.0 mg/dL 8.6-10.3 [facility] Carbon dioxide, total [Moles /volume] in Serum or PlasmaOrdered By: Dre Cardoza on 04-28-2023 CO2 [Moles/Vol] 20.7 mmol/L 21.0-31.0 [facility] Chloride [Moles/volume] in S ad[place] or PlasmaOrdered By: Dre Cardoza on 04-28-2023 Chloride [Moles/Vol] 96 mmol/L 98-107 [facility] Comprehensive Metabolic Pane clara 04-28-2023 Albumin [Mass/Vol] 3.4 g/dL Low 3.5-5.7 [facility] Comment on above: Performed By: #### C BC, BMP #### [facility] [address] Albumin/Globulin [Mass ratio] 1.3 {ratio} Normal Comment on above: Performed By: #### C BC, BMP #### [facility] [address] ALP [Catalytic activity/Vol] 107 U/L High 34-104 Comment on above: Performed By: #### C BC, BMP #### [facility] [address] ALT [Catalytic activity/Vol] 27 U/L Normal 7-52 Comment on above: Performed By: #### C BC, BMP #### [facility] [address] Anion gap [Moles/Vol] 16.3 mmol/L High 6.0-15.0 [facility] Comment on above: Performed By: #### C BC, BMP #### [facility] [address] AST [Catalytic activity/Vol] 27 U/L Normal 13-39 Comment on above: Performed By: #### C BC, BMP #### [facility] [address] Bilirubin [Mass/Vol] 0.3 mg/dL Normal 0.3-1.0 [facility] Comment on above: Performed By: #### C BC, BMP #### [facility] [address] Calcium [Mass/Vol] 9.0 mg/dL Normal 8.6-10.3 [facility] Comment on above: Performed By: #### C BC, BMP #### [facility] [address] [place] [address] [place] Chloride [Moles/Vol] 96 mmol/L Low 98-107 [facility] Comment on above: Performed By: #### C BC, BMP #### [facility] [address] CO2 [Moles/Vol] 20.7 mmol/L Low 21.0-31.0 [facility] Comment on above: Performed By: #### C BC, BMP #### [facility] [address] Creatinine [Mass/Vol] 6.75 mg/dL High 0.70-1.30 [facility] Comment on above: Performed By: #### C BC, BMP #### [facility] [address] [place] [address] [place] GFR/1.73 sq M.predicted MDRD (S/P/Bld) [Vol rate/Area] 9.990 mL/min/{1.73_m2} Normal Comment on above: Performed By: #### C BC, BMP #### [address] Globulin (S) [Mass/Vol] 2.6 g/dL Normal [facility] Comment on above: Performed By: #### C BC, BMP #### [address] Glucose [Mass/Vol] 97 mg/dL Normal 70-100 [facility] Comment on above: Result Comment: Center Glucose Reference Range is dependent on time and content of last meal. Glucose of more than 200 mg/dL in a nonstressed, ambulatory subject supports the diagnosis of Diabetes Mellitus. ADA recommended reference range Performed By: #### C BC, BMP #### [facility] [address] Potassium [Moles/Vol] 5.0 mmol/L Normal 3.5-5.1 [facility] Comment on above: Performed By: #### C BC, BMP #### [facility] [address] Protein [Mass/Vol] 6.0 g/dL Low 6.4-8.9 [facility] Comment on above: Performed By: #### C BC, BMP #### [place] [address] [place] Sodium [Moles/Vol] 128 mmol/L Low 136-145 [facility] Comment on above: Performed By: #### C BC, BMP #### [facility] [address] Urea nitrogen [Mass/Vol] 98 mg/dL High 03-28 Comment on above: Performed By: #### C BC, BMP #### [facility] [address] [place] [id number] [place] Creatine Kinaseon 04-28-2023 CK [Catalytic activity/Vol] 398 U/L High Comment on above: Performed By: #### C BC, BMP #### [address] Creatine kinase [Enzymatic a ctivity/volume] in Serum or PlasmaOrdered By: Dre Cardoza on 04-28-2023 CK [Catalytic activity/Vol] 398 U/L Creatinine [Mass/volume] in Serum or PlasmaOrdered By: Dre Cardoza on 04-28-2023 Creatinine [Mass/Vol] 6.75 mg/dL 0.70-1.30 [facility] Diff and CBCon 04-28-2023 Band form neutrophils/100 WBC (Bld) 36 % High 0-5 Comment on above: Performed By: #### C BC, BMP #### [facility] [address] [place] [address] Basophils/100 WBC (Bld) 0 % Normal 0-2 [facility] Comment on above: Performed By: #### C BC, BMP #### [facility] [address] [place] [address] [place] Crenated RBC Slight Normal Comment on above: Performed By: #### C BC, BMP #### [facility] [address] [place] [address] [place] Eosinophils/100 WBC (Bld) 1 % Normal 1-3 Comment on above: Performed By: #### C BC, BMP #### [facility] [address] [place] [address] [place] Erythrocyte distribution width (RBC) [Ratio] 13.8 % Normal 12.0-14.8 Comment on above: Performed By: #### C BC, BMP #### [address] Hematocrit (Bld) [Volume fraction] 31.6 % Low 38.8-50.0 Comment on above: Performed By: #### C BC, BMP #### [address] Hemoglobin (Bld) [Mass/Vol] 10.0 g/dL Low 13.0-17.0 Comment on above: Performed By: #### C BC, BMP #### [address] Hypochromasia Slight Normal Comment on above: Performed By: #### C BC, BMP #### [address] Lymphocytes/100 WBC (Bld) 2 % Low 18-42 Comment on above: Performed By: #### C BC, BMP #### [address] MCH (RBC) [Entitic mass] 29.4 pg Normal 27.5-35.2 Comment on above: Performed By: #### C BC, BMP #### [address] MCV (RBC) [Entitic vol] 92.8 fL Normal 83.5-101 [facility] Comment on above: Performed By: #### C BC, BMP #### [address] Mean Corpuscular HGB Conc 31.7 g/dL Low 32.5-35.6 Comment on above: Performed By: #### C BC, BMP #### [address] Metamyelocytes 5 % High 0-0 Comment on above: Performed By: #### C BC, BMP #### [address] Monocytes/100 WBC (Bld) 42.47 % High 0.00-20.00 [facility] Comment on above: Result Comment: For adults in ED, MDW > 20.0 may be associated with a higher risk of sepsis during the first 12 hrs of hospital admission The predictive value of MDW for identifying sepsis in patients with hematological abnormalities has not been established Performed By: #### C BC, BMP #### [facility] [address] Monocytes/100 WBC (Bld) 3 % Normal 2-11 [facility] Comment on above: Performed By: #### C BC, BMP #### [address] Platelet Estimate Decreased Normal Normal [facility] Comment on above: Performed By: #### C BC, BMP #### [address] Platelet mean volume (Bld) [Entitic vol] 10.3 fL High 6.6-10.1 Comment on above: Performed By: #### C BC, BMP #### [address] Platelet Morphology Normal Normal Normal [facility] Comment on above: Result Comment: PERF ORMED BY: [place] [address] PATHOLOGIST CYBER SECURITY MANAGER DI CORONEL M.D. Performed By: #### C BC, BMP #### [place] [address] [place] Platelets (Bld) [#/Vol] 80 10*3/uL Low 150-450 [facility] Comment on above: Performed By: #### C BC, BMP #### [place] [address] [place] RBC (Bld) [#/Vol] 3.40 10*6/uL Low 3.90-5.60 [facility] Comment on above: Performed By: #### C BC, BMP #### [facility] [address] Segmented neutrophils/100 WBC (Bld) 53 % Normal 50-70 Comment on above: Performed By: #### C BC, BMP #### [facility] [address] WBC (Bld) [#/Vol] 19.9 10*3/uL High 4.1-10.5 [facility] Comment on above: Performed By: #### C ERLIN, BMP #### [facility] [address] ECG 12 lead ECGon 04-28-2023 ECG 12 lead ECG [facility] [place] [address] [place] [address] Electrocardiograph Report Signed Patient: Ruddy Palmer MR#: [id number] 9 : 1985 Acct:[id number] Age/Sex: 37 / M ADM Date: 04/28/23 Loc: ER Room: Type: [facility] ER Attending Dr: Ordering Provider: Dre [...] By Dre Cardoza MD 04/28/23 1450 Normal Eosinophils Auto (Bld) [#/Vo l]Ordered By: Dre Cardoza on 04-28-2023 Eosinophils (Bld) [#/Vol] N/A Eosinophils/100 WBC Auto (Bl d)Ordered By: Dre Cardoza on 04-28-2023 Eosinophils/100 WBC (Bld) N/A Eosinophils/100 WBC Manual c nt (Bld)Ordered By: Dre Cardoza on 04-28-2023 Eosinophils/100 WBC (Bld) 1 % 1-3 Erythrocyte distribution wid th Auto (RBC) [Ratio]Ordered By: Dre Cardoza on 04-28-2023 Erythrocyte distribution width (RBC) [Ratio] 13.8 % 12.0-14.8 Globulin Calc (S) [Mass/Vol] Ordered By: Dre Cardoza on 04-28-2023 Globulin (S) [Mass/Vol] 2.6 g/dL [facility] Glucose [Mass/volume] in Ser um or PlasmaOrdered By: Dre Cardoza on 04-28-2023 Glucose [Mass/Vol] 97 mg/dL 70-100 [facility] Comment on above: ADA recommended refe rence rangeRandom Glucose Reference Range is dependent on time and content of last meal. Glucose of more than 200 mg/dL in a nonstressed, ambulatory subject supports the diagnosis of Diabetes Mellitus. Hematocrit Auto (Bld) [Volum e fraction]Ordered By: Dre Cardoza on 04-28-2023 Hematocrit (Bld) [Volume fraction] 31.6 % 38.8-50.0 Hemoglobin [Mass/volume] in BloodOrdered By: Dre Cardoza on 04-28-2023 Hemoglobin (Bld) [Mass/Vol] 10.0 g/dL 13.0-17.0 Hypochromia LM Ql (Bld)Order ed By: Dre Cardoza on 04-28-2023 Hypochromia Ql (Bld) Slight [facility] INR in Platelet poor plasma by Coagulation assayOrdered By: Dre Cardoza on 04-28-2023 INR Coag (PPP) [Relative time] 1.2 {INR} Comment on above: INR Therapeutic Rang e [...] PT Coag (PPP) [Time] 14.4 s 9.0-12.9 [facility] Lactate [Moles/volume] in Se rum or PlasmaOrdered By: Dre Cardoza on 04-28-2023 Lactate [Moles/Vol] 1.4 mmol/L 0.5-2.2 [facility] Lactic Acidon 04-28-2023 Lactate [Moles/Vol] 2.5 mmol/L Off scale high 0.5-2.2 [facility] Comment on above: Result Comment: Crit ical Result : Called to and read back by: HUGH ROMAN at: 04/28/2023 14:35:18 by:MLG PERFORMED BY: [phone] PATHOLOGIST CYBER SECURITY MANAGER DI CORONEL M.D. Performed By: #### C BC, BMP #### [facility] [address] [place] [address] Lactic Acid Reflexon 023 Lactic Acid Reflex 1.4 mmol/L Normal 0.5-2.2 [facility] Comment on above: Order Comment: RN No tified AB 1841 Result Comment: PERF ORMED BY: [place] [phone] PATHOLOGIST CYBER SECURITY MANAGER DI CORONEL M.D. Performed By: #### C UU, URDS #### [facility] [address] [place] [address] Leukocytes [#/volume] correc radha for nucleated erythrocytes in Blood by Automated counOrdered By: Dre Cardoza on 04-28-2023 WBC corrected for nucl RBC Auto (Bld) [#/Vol] 19.9 10*3/uL 4.1-10.5 Lymphocytes Auto (Bld) [#/Vo l]Ordered By: Dre Cardoza on 04-28-2023 Lymphocytes (Bld) [#/Vol] N/A Lymphocytes/100 WBC Auto (Bl d)Ordered By: Dre Cardoza on 04-28-2023 Lymphocytes/100 WBC (Bld) N/A Lymphocytes/100 WBC Manual c nt (Bld)Ordered By: Dre Cardoza on 04-28-2023 Lymphocytes/100 WBC (Bld) 2 % 18-42 MCH Auto (RBC) [Entitic mass ]Ordered By: Dre Cardoza on 04-28-2023 MCH (RBC) [Entitic mass] 29.4 pg 27.5-35.2 MCHC Auto (RBC) [Mass/Vol]Or dered By: Dre Cardoza on 04-28-2023 MCHC (RBC) [Mass/Vol] 31.7 g/dL 32.5-35.6 [facility] MCV Auto (RBC) [Entitic vol] Ordered By: Dre Cardoza on 04-28-2023 MCV (RBC) [Entitic vol] 92.8 fL 83.5-101 [facility] Metamyelocytes/100 WBC Manua l cnt (Bld)Ordered By: Dre Cardoza on 04-28-2023 Metamyelocytes/100 WBC (Bld) 5 % 0-0 Monocyte distribution width [Entitic volume] in Blood by AutomatedOrdered By: Dre Cardoza on 04-28-2023 Monocyte distribution width Auto (Bld) [Entitic vol] 42.47 % 0.00-20.00 Comment on above: For adults in ED, MD W > 20.0 may be associated with a higher risk of sepsis during the first 12 hrs of hospital admissionThe predictive value of MDW for identifying sepsis in patients with hematological abnormalities has not been established Monocytes Auto (Bld) [#/Vol] Ordered By: Dre Cardoza on 04-28-2023 Monocytes (Bld) [#/Vol] N/A [facility] Monocytes/100 WBC Auto (Bld) Ordered By: Dre Cardoza on 04-28-2023 Monocytes/100 WBC (Bld) N/A [facility] Monocytes/100 WBC Manual cnt (Bld)Ordered By: Dre Cardoza on 04-28-2023 Monocytes/100 WBC (Bld) 3 % 2-11 [facility] Neutrophils Auto (Bld) [#/Vo l]Ordered By: Dre Cardoza on 04-28-2023 Neutrophils (Bld) [#/Vol] N/A Neutrophils/100 WBC Auto (Bl d)Ordered By: Dre Cardoza on 04-28-2023 Neutrophils/100 WBC (Bld) N/A No Panel InformationOrdered By: Dre Cardoza on 04-28-2023 Estimated GFR (CKD-EPI) 9.990 mL/Min Pharmacy Creatinine Clearance (Chem N/A Nucleated erythrocytes [Pres ence] in Blood by Automated countOrdered By: Dre Cardoza on 04-28-2023 Nucleated RBC Auto Ql (Bld) N/A Partial Thromboplastin Timeo n 04-28-2023 aPTT Coag (Bld) [Time] 36.0 s Normal 25.1-36.5 [facility] Comment on above: Result Comment: PERF ORMED BY: [place] [address] PATHOLOGIST CYBER SECURITY MANAGER DI CORONEL M.D. Performed By: #### C BC, BMP #### [address] Platelet adequacy [Presence] in Blood by Light microscopyOrdered By: Dre Cardoza on 04-28-2023 Platelets LM Ql (Bld) Decreased Normal [facility] Platelet mean volume Auto (B ld) [Entitic vol]Ordered By: Dre Cardoza on 04-28-2023 Platelet mean volume (Bld) [Entitic vol] 10.3 fL 6.6-10.1 Platelet morphology finding [Identifier] in BloodOrdered By: Dre Cardoza on 04-28-2023 Platelet morphology finding Nom (Bld) Normal Normal Platelets Auto (Bld) [#/Vol] Ordered By: Dre Cardoza on 04-28-2023 Platelets (Bld) [#/Vol] 80 10*3/uL 150-450 [facility] Potassium [Moles/volume] in Serum or PlasmaOrdered By: Dre Cardoza on 04-28-2023 Potassium [Moles/Vol] 5.0 mmol/L 3.5-5.1 [facility] Protein [Mass/volume] in Ser um or PlasmaOrdered By: Dre Cardoza on 04-28-2023 Protein [Mass/Vol] 6.0 g/dL 6.4-8.9 [facility] Prothrombin Time INRon 04-28 INR Coag (PPP) [Relative time] 1.2 {INR} Normal Comment on above: Result Comment: INR Therapeutic [...] Performed By: #### C ERLIN, SOFÍA #### [facility] [address] PT Coag (PPP) [Time] 14.4 s High 9.0-12.9 [facility] Comment on above: Performed By: #### C ERLIN, SOFÍA #### [facility] [address] [place] [address] RBC Auto (Bld) [#/Vol]Ordere d By: Dre Cardoza on 04-28-2023 RBC (Bld) [#/Vol] 3.40 10*6/uL 3.90-5.60 [facility] RBC morphologyOrdered By: Becky Cardoza on 04-28-2023 RBC morphology finding Nom (Bld) N/A Segmented neutrophils/100 WB C Manual cnt (Bld)Ordered By: Dre Cardoza on 04-28-2023 Segmented neutrophils/100 WBC (Bld) 53 % 50-70 Serum or plasma albumin/glob ulin mass ratioOrdered By: Dre Cardoza on 04-28-2023 Albumin/Globulin [Mass ratio] 1.3 {ratio} Serum or plasma anion gap de terminationOrdered By: Dre Cardoza on 04-28-2023 Anion gap [Moles/Vol] 16.3 mmol/L 6.0-15.0 [facility] Sodium [Moles/volume] in Ser um or PlasmaOrdered By: Dre Carodza on 08-25-2023 Sodium [Moles/Vol] 128 mmol/L 136-145 [facility] Thyroid Stimulating Hormoneo n 04-28-2023 TSH Qn 1.33 m[IU]/L Normal 0.45-5.33 Comment on above: Result Comment: PERF ORMED BY: [place] [address] PATHOLOGIST CYBER SECURITY MANAGER DI CORONEL M.D. Performed By: #### C ERLIN, BMP #### [facility] [address] [place], [place] [id number] [facility] Thyrotropin [Units/volume] i n Serum or PlasmaOrdered By: Dre Cardoza on 04-28-2023 TSH Qn 1.33 m[IU]/L 0.45-5.33 Troponin I High Sensitivityo n 04-28-2023 Troponin I High Sensitivity 24.4 pg/mL High 0.0-20.0 Comment on above: Result Comment: PERF ORMED BY: [place] [address] PATHOLOGIST CYBER SECURITY MANAGER DI CORONEL M.D. Performed By: #### C ERLIN, BMP #### [facility] [address] [place] [address] Troponin I.cardiac [Mass/vol ume] in Serum or Plasma by Detection limit <= 0.01 ng/Ordered By: Dre Cardoza on 04-28-2023 Troponin I.cardiac DL <= 0.01 ng/mL [Mass/Vol] 24.4 pg/mL 0.0-20.0 Urea nitrogen [Mass/volume] in Serum or PlasmaOrdered By: Dre Cardoza on 04-28-2023 Urea nitrogen [Mass/Vol] 98 mg/dL 03-28 WBC Auto (Bld) [#/Vol]Ordere d By: Dre Cardoza on 04-28-2023 WBC (Bld) [#/Vol] 19.9 10*3/uL 4.1-10.5 [facility] XR chest 1V portableon 04-28 XR chest 1V portable [facility] [place] [address] XRay Report Signed Patient: Ruddy Palmer MR#: [id number] 9 : 1985 Acct:[id number] Age/Sex: 37 / M ADM Date: 04/28/23 [...] Rojas Navarrete M.D.04/28/2023 2:05 PM Dictation Location: [place] [address] Transcribed By: [facility] 04/28/23 140 Dictated By: Rojas Navarrete DO 04/28/23 140 Signed By: 04/28/23 140 [facility] Basic Metabolic Panelon 10-06 Anion gap [Moles/Vol] 12 mmol/L 9 - 17 mmol/L [employer] Calcium [Mass/Vol] 9.3 mg/dL 8.6 - 10. 4 mg/dL [employer] Chloride [Moles/Vol] 98 mmol/L 98 - 10 7 mmol/L [employer] CO2 [Moles/Vol] 27 mmol/L 20 - 31 mmol/L [employer] Creatinine [Mass/Vol] 4.16 mg/dL High 0.70 - 1.20 mg/dL [employer] GFR/1.73 sq M.predicted MDRD (S/P/Bld) [Vol rate/Area] 18 mL/min/{1.73_m2} Low - PINF [employer] Comment on above: These results are not [...] 101 mg/dL High 70 - 99 mg/dL [facility] Interpretation and review of laboratory results Abnormal [facility] Potassium [Moles/Vol] 4.3 mmol/L 3.7 - 5.3 mmol/L [facility] Sodium [Moles/Vol] 137 mmol/L 135 - 144 mmol/L [facility] Urea nitrogen [Mass/Vol] 55 mg/dL High 6 - 20 mg/dL [facility] DEXTROMETHORPHANon Dextromethorphan 63.7 ng/ml Critically high 2.0 - 6.0 [facility] Comment on above: Result Comment: This test was developed and its performance characteristics determined by [employer]. It has not been cleared or approved by the Food and Drug Administration. Performed By: #### D EXTRO #### [facility] [address] [place] [address] Dr. Hoda Richards BNPon 08-11-2022 Natriuretic peptide B (Bld) [Mass/Vol] 919.0 pg/mL Critically high <=450.0 [facility] Comment on above: Performed By: #### T SH, CMP, T7, LIPID, BNP #### [facility] [address] [place] [address] Dr. Hoda Richards CBC AUTO DIFFon 08-11-2022 BASO # 0.0 103/ul Normal 0.0-0.1 [facility] Comment on above: Performed By: #### C BC #### [facility] [address] [place] [address] Dr. Hoda Richards Basophils/100 WBC (Bld) 0.1 % Critically low 0.2-2.0 [facility] Comment on above: Performed By: #### C BC #### [facility] [address] [place] [address] Dr. Hoda Richards EO # 0.6 103/ul Normal 0.0-0.7 [facility] Comment on above: Performed By: #### C BC #### [facility] [address] [place] [address] Dr. Hoda Richards Eosinophils/100 WBC (Bld) 7.1 % Critically high 0.9-7.0 [facility] Comment on above: Performed By: #### C BC #### [facility] [address] [place] [address] Dr. Hoda Richards Erythrocyte distribution width (RBC) [Ratio] 13.6 % Normal 11.0-15.0 [facility] Comment on above: Performed By: #### C BC #### [facility] [address] [place] [address] Dr. Hoda Richards Hematocrit (Bld) [Volume fraction] 33.8 % Critically low 42.0-54.0 [facility] Comment on above: Performed By: #### C BC #### [facility] [address] [place] [address] Dr. Hoda Richards Hemoglobin (Bld) [Mass/Vol] 10.9 g/dL Critically low 14.0-18.0 [facility] Comment on above: Performed By: #### C BC #### [facility] [address] [place] [address] Dr. Hoda Richards IG # 0.02 10e3/ul Normal 0.00-0.03 [facility] Comment on above: Performed By: #### C BC #### [facility] [address] [place] [address] Dr. Hoda Richards IG % 0.2 % Normal 0.0-0.5 [facility] Comment on above: Performed By: #### C BC #### [facility] [address] [place] [address] Dr. Hoda Richards LYMPH # 2.1 103/ul Normal 1.2-3.8 [facility] Comment on above: Performed By: #### C BC #### [facility] [address] [place] [address] Dr. Hoda Richards Lymphocytes/100 WBC (Bld) 22.9 % Normal 20.5-60.0 [facility] Comment on above: Performed By: #### C BC #### [facility] [address] [place] [address] Dr. Hoda Richards MANUAL DIFF REQ NO Normal [facility] Comment on above: Performed By: #### C BC #### [facility] [address] [place] [address] [address] Hoda Richards MCH (RBC) [Entitic mass] 30.9 pg Normal 25.9-34.0 [facility] Comment on above: Performed By: #### C BC #### [facility] [address] [place] [address] Dr. Hoda Richards MCHC (RBC) [Mass/Vol] 32.2 g/dL Normal 29.9-35.2 [facility] Comment on above: Performed By: #### C BC #### [facility] [address] [place] [address] Dr. Hoda Richards MCV (RBC) [Entitic vol] 95.8 fL Critically high 80.0-94 .0 [facility] Comment on above: Performed By: #### C BC #### [facility] [address] [place] [address] Dr. Hoda Richards MONO # 0.6 103/ul Normal 0.3-0.8 [facility] Comment on above: Performed By: #### C BC #### [facility] [address] [place] [address] Dr. Hoda Richards Monocytes/100 WBC (Bld) 7.0 % Normal 1.7-12.0 [facility] Comment on above: Performed By: #### C BC #### [facility] [address] [place] [address] Dr. Hoda Richards NEUT # 5.6 103/ul Normal 1.4-6.5 [facility] Comment on above: Performed By: #### C BC #### [facility] [address] [place] [address] Dr. Hoda Richards Neutrophils/100 WBC (Bld) 62.7 % Normal 43.0-75.0 [facility] Comment on above: Performed By: #### C BC #### [facility] [address] [address] [address] Hoda Richards Platelet mean volume (Bld) [Entitic vol] 9.5 fL Normal 9.5-13.5 [facility] Comment on above: Performed By: #### C BC #### [facility] [address] [place] [address] Dr. Hoda Richards PLT 235 103/ul Normal 150-450 [facility] Comment on above: Performed By: #### C BC #### [facility] [address] [address] [address] Hoda Richards RBC 3.53 106/ul Critically low 4.70-6.10 [facility] Comment on above: Performed By: #### C BC #### [facility] [address] [address] [address] Hoda Richards WBC 9.0 103/ul Normal 4.0-11.0 [facility] Comment on above: Performed By: #### C BC #### [facility] [address] [place] [address] Dr. Hoda Richards FREE THYROXINE INDEX T7on FTI 2.38 Normal 1.30-4.50 [facility] Comment on above: Performed By: #### T SH, CMP, T7, LIPID, BNP #### [facility] [address] [place] [address] Dr. Hoda Richards T3U 35.0 % Normal 33.0-40.0 [facility] Comment on above: Performed By: #### T SH, CMP, T7, LIPID, BNP #### [facility] [address] [place] [address] Dr. Hoda Richards T4 [Mass/Vol] 6.80 ug/dL Normal 4.50-12.[address] [facility] Comment on above: Performed By: #### T SH, CMP, T7, LIPID, BNP #### [facility] [address] [place] [address] Dr. Hoda Richards GLYCOHEMOGLOBIN A1Con 2021 ADA RECOMMENDATION SEE BELOW Normal [facility] Comment on above: Result Comment: ADA RECOMMENDED LIMIT 4.0 - 6.0 ADA THERAPEUTIC TARGET < 7.0 ACTION SUGGESTED > 7.0 Performed By: #### A 1C #### [facility] [address] [place] [address] Dr. Hoda Richards Glucose [Mass/Vol] 103 mg/dL Normal [facility] Comment on above: Performed By: #### A 1C #### [facility] [address] [place] [address] Dr. Hoda Richards HbA1c (Bld) [Mass fraction] 5.2 % Normal 4.5-6.2 [facility] Comment on above: Performed By: #### A 1C #### [facility] [address] [place] [address] Dr. Hoda Richards IRONon 08-11-2022 Iron [Mass/Vol] 58.0 ug/dL Critically low 65.0-175.0 [facility] Comment on above: Performed By: #### I RUBÉN #### [facility] [address] [place] [address] Dr. Hoda Richards LIPID PROFILEon 08-11-2022 CHOL-HDL RATIO NORM SEE BELOW Normal [facility] Comment on above: Result Comment: 3.3 - 4.4 LOW RISK 4.4 - 7.1 AVERAGE RISK 7.1 - 11.0 MODERATE RISK >11.0 HIGH RISK Performed By: #### T SH, CMP, T7, LIPID, BNP #### [facility] [address] [place] [address] Dr. Hoda Richards Cholesterol [Mass/Vol] 157 mg/dL Normal <=200 [facility] Comment on above: Performed By: #### T SH, CMP, T7, LIPID, BNP #### [facility] [address] [place] [address] Dr. Hoda Richards Cholesterol in HDL [Mass/Vol] 48 mg/dL Normal 40-60 [facility] Comment on above: Performed By: #### T SH, CMP, T7, LIPID, BNP #### [facility] [address] [address] [address] Hoda Richards Cholesterol in LDL [Mass/Vol] 73.2 mg/dL Normal [facility] Comment on above: Performed By: #### T SH, CMP, T7, LIPID, BNP #### [facility] [address] [address] [address] Hoda Richards Cholesterol.total/Rhiannon sterol in HDL [Mass ratio] 3.3 {ratio} Normal [facility] Comment on above: Performed By: #### T SH, CMP, T7, LIPID, BNP #### [facility] [address] [address] [address] Hoda Richards HDL NORMAL > or = 60 mg/dl - LO W CARDIOVASCULAR RISK <40 mg/dl - HIGH CARDIOVASCULAR RISK Normal [facility] Comment on above: Performed By: #### T SH, CMP, T7, LIPID, BNP #### [facility] [address] [address] [address] Hoda Richards LDL CALC NORMAL SEE BELOW Normal [facility] Comment on above: Result Comment: <100 mg/dl OPTIMAL 100 - 129 mg/dl NEAR OR ABOVE OPTIMAL 130 - 159 mg/dl BORDERLINE HIGH 160 - 189 mg/dl HIGH >190 mg/dl VERY HIGH Performed By: #### T SH, CMP, T7, LIPID, BNP #### [facility] [address] [address] [address] Hoda Richards Triglyceride [Mass/Vol] 179 mg/dL Critically high <=150 [facility] Comment on above: Performed By: #### T SH, CMP, T7, LIPID, BNP #### [facility] [address] [address] [address] Hoda Richards VLDL CALC 35.8 mg/dL Normal [facility] Comment on above: Performed By: #### T SH, CMP, T7, LIPID, BNP #### [facility] [address] [address] [address] Hoda Richards PROF 14(COMP METB)on 022 Albumin [Mass/Vol] 4.0 g/dL Normal 3.4-5.0 [facility] Comment on above: Performed By: #### T SH, CMP, T7, LIPID, BNP #### [facility] [address] [place] [address] Dr. Hoda Richards Albumin/Globulin [Mass ratio] 1.1 {ratio} Normal [facility] Comment on above: Performed By: #### T SH, CMP, T7, LIPID, BNP #### [facility] [address] [place] [address] Dr. Hoda Richards ALP [Catalytic activity/Vol] 126 U/L Critically high 46-116 [facility] Comment on above: Performed By: #### T SH, CMP, T7, LIPID, BNP #### [facility] [address] [place] [address] Dr. Hoda Richards ALT [Catalytic activity/Vol] 24 U/L Normal 16-63 [facility] Comment on above: Performed By: #### T SH, CMP, T7, LIPID, BNP #### [facility] [address] [place] [address] Dr. Hoda Richards Anion gap [Moles/Vol] 14.2 mmol/L Normal [facility] Comment on above: Performed By: #### T SH, CMP, T7, LIPID, BNP #### [facility] [address] [place] [address] Dr. Hoda Richards AST [Catalytic activity/Vol] 18 U/L Normal 15-37 [facility] Comment on above: Performed By: #### T SH, CMP, T7, LIPID, BNP #### [facility] [address] [place] [address] Dr. Hoda Richards Bilirubin [Mass/Vol] 0.3 mg/dL Normal 0.2-1.0 [facility] Comment on above: Performed By: #### T SH, CMP, T7, LIPID, BNP #### [facility] [address] [place] [address] Dr. Hoda Richards Calcium [Mass/Vol] 9.2 mg/dL Normal 8.5-10.1 [facility] Comment on above: Performed By: #### T SH, CMP, T7, LIPID, BNP #### [facility] [address] [place] [address] Dr. Hoda Richards Chloride [Moles/Vol] 102 mmol/L Normal 98-107 [facility] Comment on above: Performed By: #### T SH, CMP, T7, LIPID, BNP #### [facility] [address] [place] [address] Dr. Hoda Richards CO2 [Moles/Vol] 28.1 mmol/L Normal 21.0-32.0 [facility] Comment on above: Performed By: #### T SH, CMP, T7, LIPID, BNP #### [facility] [address] [place] [address] Dr. Hoda Richards Creatinine [Mass/Vol] 3.77 mg/dL Critically high 0.70-1.30 [facility] Comment on above: Performed By: #### T SH, CMP, T7, LIPID, BNP #### [facility] [address] [place] [address] Dr. Hoda Richards EGFR-AF CYMRAES 22 mL/min/1.73m2 Critically low >=60 [facility] Comment on above: Performed By: #### T SH, CMP, T7, LIPID, BNP #### [facility] [address] [place] [address] Dr. Hoda Richards EGFR-NON AF CYMRAES 18 mL/min/1.73m2 Critically low >=60 [facility] Comment on above: Performed By: #### T SH, CMP, T7, LIPID, BNP #### [facility] [address] [place] [address] Dr. Hoda Richards Globulin (S) [Mass/Vol] 3.5 g/dL Normal [facility] Comment on above: Performed By: #### T SH, CMP, T7, LIPID, BNP #### [facility] [address] [place] [address] Dr. Hoda Richards Glucose [Mass/Vol] 94 mg/dL Normal 74-106 [facility] Comment on above: Performed By: #### T SH, CMP, T7, LIPID, BNP #### [facility] [address] [address] [address] Hoda Richards Potassium [Moles/Vol] 4.3 mmol/L Normal 3.5-5.1 [facility] Comment on above: Performed By: #### T SH, CMP, T7, LIPID, BNP #### [facility] [address] [address] [address] Hoda Richards Protein [Mass/Vol] 7.5 g/dL Normal 6.4-8.2 [facility] Comment on above: Performed By: #### T SH, CMP, T7, LIPID, BNP #### [facility] [address] [address] [address] Hoda Richards Sodium [Moles/Vol] 140 mmol/L Normal 136-145 [facility] Comment on above: Performed By: #### T SH, CMP, T7, LIPID, BNP #### [facility] [address] [place] [address] Dr. Hoda Richards Urea nitrogen [Mass/Vol] 54.0 mg/dL Critically high 7.0-18.0 [facility] Comment on above: Performed By: #### T SH, CMP, T7, LIPID, BNP #### [facility] [address] [place] [address] Dr. Hoda Richards Urea nitrogen/Creatinine [Mass ratio] 14.3 mg/mg Normal [facility] Comment on above: Performed By: #### T SH, CMP, T7, LIPID, BNP #### [facility] [address] [place] [address] Dr. Hoda Richards TSHon 08-11-2022 TSH 1.682 uIU/mL Normal 0.358-3.74 0 [facility] Comment on above: Performed By: #### T SH, CMP, T7, LIPID, BNP #### [facility] [address] [place] [address] Dr. Hoda Richards POTASSIUM (POC)on 02-04-2022 Interpretation and review of laboratory results Abnormal [facility] Potassium [Moles/Vol] 4.6 mmol/L High 3.5 - 4.5 mmol/L [facility] CHLORIDE (POC)on 01-18-2022 Chloride [Moles/Vol] 105 mmol/L 98 - 10 7 mmol/L [facility] Creatinine W/GFR Point of Ca reon 01-18-2022 Creatinine [Mass/Vol] 3.06 mg/dL High 0.51 - 1.19 mg/dL [facility] GFR Non- 23 mL/min Low >60 [facility] GFR/1.73 sq M.predicted MDRD (S/P/Bld) [Vol rate/Area] 28 mL/min/{1.73_m2} Low >60 [facility] GFR/1.73 sq M.predicted MDRD (S/P/Bld) [Vol rate/Area] [facility] Comment on above: Average GFR for 30-3 9 years old: 107 mL/min/1.73sq m Chronic Kidney Disease: <60 mL/min/1.73sq m Kidney failure: <15 mL/min/1.73sq m eGFR calculated using average adult body mass. Additional eGFR calculator available at: http://www.[employer]/multiple_crcl_2012.htm Hemoglobin and hematocrit, b loodon 01-18-2022 Hematocrit (Bld) [Volume fraction] 38 % Low 41 - 53 % [facility] Hemoglobin (Bld) [Mass/Vol] 12.8 g/dL Low 13.5 - 17.5 g/dL [facility] No Panel Informationon 01-18 Interpretation and review of laboratory results Abnormal [facility] POCT Glucoseon 01-18-2022 Glucose [Mass/Vol] 95 mg/dL 74 - 100 mg/dL [facility] POCT urea (BUN)on 01-18-2022 Urea nitrogen [Mass/Vol] 23 mg/dL 8 - 26 mg/dL [facility] POTASSIUM (POC)on 01-18-2022 Potassium [Moles/Vol] 4.6 mmol/L High 3.5 - 4.5 mmol/L [facility] SODIUM (POC)on 01-18-2022 Sodium [Moles/Vol] 140 mmol/L 138 - 146 mmol/L [facility] VL Upper Extremity Bilateral Venous Duplexon 01-03-2022 [facility] Upper Extremity Vein Mapping and Upper Extremity Vein Mapping Procedure Patient Name SPENCER SIERRA Date of Study 01/03/2022 J Date of 1985 Gender Male Age 36 year(s) Race Room Number OP Corporate ID [id number] # Patient Acct [id number] # MR # [id number] .Net Developer Polly Granados RVT Interpreting Physician Justyn Alvarez [...] + ++--- ----+ +-----++ -------+ +---- ---+ [facility] Justyn Alvarez MD - 01/03/2022 [facility] Upper Extremity Vein Mapping and Upper Extremity Vein Mapping Procedure Patient Name SPENCER SIERRA Date of Study 01/03/2022 J Date of 1985 Gender Male Age 36 year(s) Race Room Number OP Corporate ID [id number] # Patient Acct [id number] # MR # [id number] .Net Developer Polly Granados RVT Interpreting Physician Justyn Alvarez [...] ++--- ----+ +-----++ -------+ +---- --- + [employer] Work Phone: [employer] Work Phone: Radiology Study observation (narrative) [employer] [facility] Work Phone: Vital Signs Date Time Vital Sign Value Performing Clinician Facility 09-12-2024 18:00-0500 Diastolic blood pressure 73 mm[Hg] Justyn Alvarez MD Work Phone: [facility] [employer] 09-12-2024 18:00-0500 Heart rate 72 /min Justyn Alvarez MD Work Phone: [facility] [employer] 09-12-2024 18:00-0500 SaO2% (BldA) [Mass fraction] 100 % Justyn Alvarez MD Work Phone: [facility] [employer] 09-12-2024 18:00-0500 Systolic blood pressure 160 mm[Hg] Justyn Alvarez MD Work Phone: [facility] [employer] 09-12-2024 14:33-0500 Body temperature 96.8 [degF] Justyn Alvarez MD Work Phone: [employer] 09-12-2024 14:33-0500 Respiratory rate 12 /min Justyn Alvarez MD Work Phone: [employer] 05-27-2023 17:11-0400 Body mass index (BMI) [Ratio] 18.13 kg/m2 Kostas Roque MD Work Phone: [employer] 05-27-2023 17:11-0400 Body temperature 98.1 [degF] Kostas Roque MD Work Phone: [employer] 05-27-2023 17:11-0400 Body weight 55.7 kg Kostas Roque MD Work Phone: [employer] 05-27-2023 17:11-0400 Diastolic blood pressure 91 mm[Hg] Kostas Roque MD Work Phone: [employer] 05-27-2023 17:11-0400 Heart rate 77 /min Kostas Roque MD Work Phone: [employer] 05-27-2023 17:11-0400 Respiratory rate 17 /min Kostas Roque MD Work Phone: [employer] 05-27-2023 17:11-0400 Systolic blood pressure 153 mm[Hg] Kostas Roque MD Work Phone: [employer] 05-27-2023 12:35-0400 SaO2% (BldA) [Mass fraction] 96 % Kostas Roque MD Work Phone: [employer] 05-26-2023 23:15-0400 Body height 175.3 cm Kostas Roque MD Work Phone: [employer] 05-25-2023 14:30-0400 Body weight 61.69 kg Kostas Wade Other [employer] 05-20-2023 15:33-0400 Respiratory rate 20 /min MD Denis Melvin Work Phone: 05-20-2023 14:34-0400 Heart rate 80 /min MD Denis Melvin Work Phone: 05-20-2023 08:00-0400 Body temperature 98 [degF] MD Denis Melvin Work Phone: 05-20-2023 08:00-0400 Diastolic blood pressure 73 mm[Hg] MD Denis Melvin Work Phone: 05-20-2023 08:00-0400 Inhaled oxygen concentration 40 % MD Denis Melvin Work Phone: 05-20-2023 08:00-0400 Inhaled oxygen flow rate 3 L/min MD Denis Melvin Work Phone: 05-20-2023 08:00-0400 SaO2% (BldA) [Mass fraction] 94 % MD Denis Melvin Work Phone: 05-20-2023 08:00-0400 Systolic blood pressure 129 mm[Hg] MD Denis Mlevin Work Phone: 05-20-2023 06:00-0400 Body weight 62.3 kg MD Denis Melvin Work Phone: 05-18-2023 12:24-0400 Body height 175.26 cm MD Denis Melvin Work Phone: 05-17-2023 23:05-0400 Diastolic blood pressure 63 mm[Hg] MD Denis Melvin Work Phone: 05-17-2023 23:05-0400 Heart rate 88 /min MD Denis Melvin Work Phone: 05-17-2023 23:05-0400 Respiratory rate 16 /min MD Denis Melvin Work Phone: 05-17-2023 23:05-0400 SaO2% (BldA) [Mass fraction] 97 % MD Denis Melvin Work Phone: 05-17-2023 23:05-0400 Systolic blood pressure 122 mm[Hg] MD Denis Melvin Work Phone: 05-17-2023 21:21-0400 Inhaled oxygen concentration 40 % MD Denis Melvin Work Phone: 05-17-2023 20:44-0400 Inhaled oxygen flow rate 3 L/min MD Denis Melvin Work Phone: 05-17-2023 12:34-0400 Body height 175.26 cm MD Denis Melvin Work Phone: 05-17-2023 12:34-0400 Body temperature 98.8 [degF] MD Denis Melvin Work Phone: 05-17-2023 12:34-0400 Body weight 63.5 kg MD Denis Melvin Work Phone: 05-12-2023 16:00-0400 Inhaled oxygen concentration 3 % MD Denis Melvin Work Phone: 05-12-2023 16:00-0400 Inhaled oxygen flow rate 3 L/min MD Denis Melvin Work Phone: 05-12-2023 16:00-0400 SaO2% (BldA) [Mass fraction] 96 % MD Denis Melvin Work Phone: 05-12-2023 14:00-0400 Body temperature 98.5 [degF] MD Denis Melvin Work Phone: 05-12-2023 14:00-0400 Diastolic blood pressure 76 mm[Hg] MD Denis Melvin Work Phone: 05-12-2023 14:00-0400 Heart rate 88 /min MD Denis Melvin Work Phone: 05-12-2023 14:00-0400 Respiratory rate 16 /min MD Denis Melvin Work Phone: 05-12-2023 14:00-0400 Systolic blood pressure 123 mm[Hg] MD Denis Melvin Work Phone: 05-12-2023 06:00-0400 Body weight 67.8 kg MD Denis Melvin Work Phone: 05-10-2023 15:21-0400 Body height 175.26 cm MD Denis Melvin Work Phone: 05-09-2023 20:28-0400 Diastolic blood pressure 52 mm[Hg] MD Denis Melvin Work Phone: 05-09-2023 20:28-0400 Heart rate 74 /min MD Denis Melvin Work Phone: 05-09-2023 20:28-0400 Systolic blood pressure 113 mm[Hg] MD Denis Melvin Work Phone: 05-09-2023 19:18-0400 Inhaled oxygen flow rate 3 L/min MD Denis Melvin Work Phone: 05-09-2023 19:18-0400 Respiratory rate 20 /min MD Denis Melvin Work Phone: 05-09-2023 19:18-0400 SaO2% (BldA) [Mass fraction] 95 % MD Denis Melvin Work Phone: 05-09-2023 16:02-0400 Body height 175.26 cm MD Denis Melvin Work Phone: 05-09-2023 16:02-0400 Body temperature 98.4 [degF] MD Denis Melvin Work Phone: 05-09-2023 16:02-0400 Body weight 67.3 kg MD Denis Melvin Work Phone: 05-07-2023 15:08-0400 Body temperature 98.5 [degF] MD Denis Melvin Work Phone: 05-07-2023 15:08-0400 Diastolic blood pressure 68 mm[Hg] MD Denis Melvin Work Phone: 05-07-2023 15:08-0400 Heart rate 88 /min MD Denis Melvin Work Phone: 05-07-2023 15:08-0400 Inhaled oxygen flow rate 5 L/min MD Denis Melvin Work Phone: 05-07-2023 15:08-0400 Respiratory rate 22 /min MD Denis Melvin Work Phone: 05-07-2023 15:08-0400 SaO2% (BldA) [Mass fraction] 95 % MD Denis Melvin Work Phone: 05-07-2023 15:08-0400 Systolic blood pressure 112 mm[Hg] MD Denis Melvin Work Phone: 05-07-2023 12:00-0400 Inhaled oxygen concentration 40 % MD Denis Melvin Work Phone: 05-07-2023 05:01-0400 Body weight 58.5 kg MD Denis Melvin Work Phone: 05-05-2023 16:02-0400 Body height 175.26 cm MD Denis Melvin Work Phone: 04-28-2023 20:00-0400 Body height 175.26 cm MD Denis Melvin Work Phone: 04-28-2023 20:00-0400 Body temperature 100.3 [degF] MD Denis Melvin Work Phone: 04-28-2023 20:00-0400 Body weight 63.7 kg MD Denis Melvin Work Phone: 04-28-2023 20:00-0400 Diastolic blood pressure 65 mm[Hg] MD Denis Melvin Work Phone: 04-28-2023 20:00-0400 Heart rate 97 /min MD Denis Melvin Work Phone: 04-28-2023 20:00-0400 Inhaled oxygen flow rate 2 L/min MD Denis Melvin Work Phone: 04-28-2023 20:00-0400 Respiratory rate 18 /min MD Denis Melvin Work Phone: 04-28-2023 20:00-0400 SaO2% (BldA) [Mass fraction] 93 % MD Denis Melvin Work Phone: 04-28-2023 20:00-0400 Systolic blood pressure 104 mm[Hg] MD Denis Melvin Work Phone: 02-02-2023 16:45-0400 Diastolic blood pressure 99 mm[Hg] Justyn Alvarez MD Work Phone: [facility] [employer] 02-02-2023 16:45-0400 Heart rate 66 /min Justyn Alvarez MD Work Phone: [facility] [employer] 02-02-2023 16:45-0400 Respiratory rate 0 /min Justyn Alvarez MD Work Phone: [facility] [employer] 02-02-2023 16:45-0400 SaO2% (BldA) [Mass fraction] 95 % Justyn Alvarez MD Work Phone: [facility] [employer] 02-02-2023 16:45-0400 Systolic blood pressure 134 mm[Hg] Justyn Alvarez MD Work Phone: [facility] [employer] 10-27-2022 12:45-0500 Heart rate 58 /min Justyn Alvarez MD Work Phone: [facility] [employer] 10-27-2022 12:45-0500 Respiratory rate 18 /min Justyn Alvarez MD [facility] 10-27-2022 12:45-0500 SaO2% (BldA) [Mass fraction] 96 % Justyn Alvarez MD Work Phone[facility] 10-27-2022 10:37-0500 Body height 175.3 cm Justyn Alvarez MD [facility] 10-27-2022 10:37-0500 Body mass index (BMI) [Ratio] 20.12 kg/m2 Justyn Alvarez MD [facility] 10-27-2022 10:37-0500 Body temperature 97.59 [degF] Justyn Alvarez MD [facility] 10-27-2022 10:37-0500 Body weight 61.8 kg Justyn Alvarez MD Work Phone: [facility] [employer] 10-27-2022 10:37-0500 Diastolic blood pressure 92 mm[Hg] Justyn Alvarez MD Work Phone: [facility] [employer] 10-27-2022 10:37-0500 Systolic blood pressure 137 mm[Hg] Justyn Alvarez MD [facility] 08-18-2022 11:06-0500 Diastolic blood pressure 85 mm[Hg] Justyn Alvarez MD Work Phone: [facility] [employer] 08-18-2022 11:06-0500 Heart rate 63 /min Justyn Alvarez MD Work Phone: [facility] [employer] [facility] 08-18-2022 11:06-0500 SaO2% (BldA) [Mass fraction] 98 % Justyn Alvarez MD Work Phone: [facility] [employer] [facility] 08-18-2022 11:06-0500 Systolic blood pressure 128 mm[Hg] Justyn Alvarez MD Work Phone: [facility] [employer] 08-18-2022 10:54-0500 Respiratory rate 16 /min Justyn Alvarez MD Work Phone[facility] 08-18-2022 09:12-0500 Body height 175.3 cm Justyn Alvarez MD Work Phone[facility] 08-18-2022 09:12-0500 Body mass index (BMI) [Ratio] 20.12 kg/m2 Justyn Alvarez MD Work Phone[facility] [employer] 08-18-2022 09:12-0500 Body temperature 98.1 [degF] Justyn Alvarez MD Work Phone[facility] 08-18-2022 09:12-0500 Body weight 61.8 kg Justyn Alvarez MD Work Phone[facility] 02-04-2022 11:54-0400 Body temperature 97.59 [degF] Stv [facility] [employer] 02-04-2022 11:54-0400 Diastolic blood pressure 87 mm[Hg] [facility] 02-04-2022 11:54-0400 Heart rate 56 /min Stv A [facility] [employer] 02-04-2022 11:54-0400 Respiratory rate 16 /min Stv A [employer] 02-04-2022 11:54-0400 SaO2% (BldA) [Mass fraction] 98 % Stv A [employer] 02-04-2022 11:54-0400 Systolic blood pressure 144 mm[Hg] Stv A [facility] [employer] 01-18-2022 12:35-0400 Diastolic blood pressure 69 mm[Hg] uJstyn Alvarez MD [facility] Phone[email or web address] 01-18-2022 12:35-0400 Heart rate 57 /min Justyn Alvarez MD Work Phone[email or web address] 01-18-2022 12:35-0400 Respiratory rate 11 /min Justyn Alvarez MD Work Phone: [facility] 01-18-2022 12:35-0400 SaO2% (BldA) [Mass fraction] 100 % Justyn Alvarez MD Work Phone: [facility] 01-18-2022 12:35-0400 Systolic blood pressure 127 mm[Hg] Justyn Alvarez MD Work Phone: [facility] Encounters Encounter Date Encounter Type Care Provider Facility Start: 09-12-2024 End: 09-12-2024 ambulatory JUSTYN ALVAREZ [facility] Start: 09-12-2024 End: 09-12-2024 Subsequent hospital visit by physician Justyn Alvarez MD Work Phone: [facility] Comment on above: 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); S/P arteriovenous (AV) fistula creation Start: 08-14-2024 End: 08-14-2024 Refill Coty Marvin MD Work Phone: [facility] 111 Comment on above: Agitation; Pseudobulbar affect Start: 07-16-2024 End: 07-16-2024 Refill Josue Key MD [facility] Phone: [facility] Comment on above: History of pulmonary embolism Start: 05-21-2024 End: 05-21-2024 ambulatory DENIS MELVIN [facility] Start: 08-29-2023 End: 08-29-2023 ambulatory COTY MARVIN Not Available Start: 05-30-2023 End: 05-30-2023 ambulatory Kostas Wade Facility: Start: 05-30-2023 End: 05-30-2023 ambulatory MD Denis Melvin Work Phone: [facility] Work Phone: Start: 05-30-2023 End: 05-30-2023 Patient encounter procedure MD Denis Melvin Work Phone: [facility] Work Phone: Start: 05-26-2023 End: 05-27-2023 Emergency department patient visit Kostas Roque MD Work Phone: [facility] On[facility]/Med Surg Comment on above: Problem with vascula r access (Primary Dx); AV graft thrombosis, initial encounter (HCC); Malfunction of arteriovenous graft, initial encounter (HCC); Cognitive developmental delay; Cerebral palsy, unspecified type (HCC) Start: 05-25-2023 End: 05-25-2023 ambulatory Kostas Wade Other [email or web address] Other Start: 05-25-2023 Office outpatient vi sit 25 minutes Kostas Wade [facility] Infectious Disease Start: 05-17-2023 End: 05-20-2023 Evaluation and management of inpatient Jessica Macdonald Facility: Start: 05-17-2023 End: 05-20-2023 Evaluation and management of inpatient MD Denis Melvin Work Phone: [facility] [place] [facility] Work Phone: Start: 05-09-2023 End: 05-12-2023 Evaluation and management of inpatient Aziz Bakhous Facility: Start: 05-09-2023 End: 05-12-2023 Evaluation and management of inpatient MD Denis Melvin Work Phone: [facility] [place] [facility] Work Phone: Start: 04-28-2023 End: 05-07-2023 Evaluation and management of inpatient Melina Jose Facility: Start: 04-28-2023 End: 05-07-2023 Evaluation and management of inpatient MD Denis Melvin Work Phone: [facility] [place] [facility] Work Phone: Start: 02-02-2023 End: [...] End: 02-04-2022 Subsequent hospital visit by physician [facility] Cdl Driver Rm A [facility] Cdl Driver Comment on above: Arrived Start: 01-18-2022 End: 01-18-2022 Subsequent hospital visit by physician Justyn Alvarez MD Work Phone: [facility] Start: 01-03-2022 End: 01-04-2022 ambulatory JUSTYN ALVAREZ [place] Start: 01-03-2022 End: 01-03-[address] [facility] L [facility] Start: 01-03-2022 End: 01-03-2022 Subsequent hospital visit by physician [facility] Rm [facility] V[facility] Lab Comment on above: ESRD (end stage tavia l disease) on dialysis (HCC); Preop testing Start: 11-23-2017 End: 11-24-2017 Ambulatory DEFAULT PHYSICIAN Facility:[facility] Procedures Date Procedure Procedure Detail Performing [...] TO MG FOR LOW K Anabell Alvarez COMPOSER TEACHING ARTIST - TIEDOWN OPERATOR Work Phone: Start: 05-27-2023 Prothrombin time Anabell Alvarez COMPOSER TEACHING ARTIST - TIEDOWN OPERATOR Work Phone: Start: 05-26-2023 Comprehensive metabo lic panel Stuart Garcia DO Work Phone: Start: 05-18-2023 Urine culture MD Yuly Melvin Work Phone: Start: 05-18-2023 Ultrasonography of arteriovenous fistula MD Denis Melvin Work Phone: Start: 05-17-2023 Antibody screen Jessica cavazos Comment on above: Result Comment: PERF ORMED BY: [facility] [address] [place] [address] PATHOLOGIST CYBER SECURITY MANAGER DI CORONEL M.D. Start: 05-17-2023 Plain chest [...] now? 2 Result Comment: PERF ORMED BY: [facility] [address] [place] [address] PATHOLOGIST CYBER SECURITY MANAGER DI CORONEL M.D. Start: 05-09-2023 Plain chest X-ray MD Gutierres Work Phone: Start: 05-09-2023 Blood culture for ba cteria, including anaerobic screen MD Denis Melvin Work Phone: Start: 05-05-2023 Antibody screen Lennyhossein Grant marcelocarlito Comment on above: Order Comment: Trans fuse now? Y Number of units to transfuse now? 1 Result Comment: PERF ORMED BY: [facility] [address] [place] [address] PATHOLOGIST CYBER SECURITY MANAGER DI CORONEL M.D. Start: 05-04-2023 Insertion of [...] of 2) Shingles vaccine (1 of 2) [facility] Start: 10-29-2024 End: 10-29-2024 Patient encounter procedure 10/29/2024 3:45 PM EST Office Visit [facility] [address] [place] [address] Coty Marvin MD [address] [place] [address] [facility] Start: 08-12-2024 End: 08-12-2024 Telemedicine consultation with patient 08/12/2024 2:00 PM EST Telemedicine [facility] [address] [place] [address] Josue Key MD [address] [place], [place] [id number] [facility] Start: 08-10-2024 Adult BMI Screening Adult BMI Screening [facility] Start: 08-10-2024 Tobacco Screening Tobacco Screening [facility] Start: 05-05-2024 COVID-19 Vaccine ( season) [facility] Vacc[facility] Start: 05-05-2024 Influenza vaccination [facility] Start: 04-04-2024 Influenza vaccination Flu vaccine (#1) [facility] Start: 10-27-2023 GFR test (Diabetes, CKD 3-4, OR last GFR 15-59) GFR test (Diabetes, CKD 3-4, OR last GFR 15-59) [facility] Start: 07-31-2023 Annual Wellness Visit (Medicare) Annual Wellness Visit (Medicare) [facility] Start: 05-20-2023 Start: 05-18-2023 Referral to vascular surgeon Start: 05-18-2023 Blood chemistry Start: 05-18-2023 Ultrasonography of arteriovenous fistula US AV Fistula Start: 05-18-2023 Start: 05-17-2023 Consultation Start: 05-17-2023 Physical therapy procedure [facility] Start: 05-17-2023 Referral to occupational therapist Start: 05-17-2023 Referral to steeler [facility] Start: 05-17-2023 Hospital admission Start: 05-17-2023 End: 05-17-2023 Start: 05-17-2023 Bacteria identified in Blood by Culture Blood Culture Start: 05-17-2023 Blood culture for bacteria, including anaerobic screen Blood Culture Start: 05-17-2023 Performance of Urinary Filtration, Intermittent, Less than 6 Hours Per Day Performance of Urinary Filtration, Intermittent, Less than 6 Hours Per Day Start: 05-12-2023 Start: 05-11-2023 Referral to renal nurse Start: 05-10-2023 Comprehensive metabolic 2000 panel - Serum or Plasma Start: 05-10-2023 End: 05-10-2023 Start: 05-09-2023 Start: 05-09-2023 Referral to steeler [facility] Start: 05-09-2023 Referral to speech and language therapy service Start: 05-09-2023 Physical therapy procedure [facility] Start: 05-09-2023 Referral to occupational therapist Start: 05-09-2023 Hospital admission Start: 05-09-2023 Start: 05-09-2023 Bacteria identified in Blood by Culture Start: 05-09-2023 Blood culture for bacteria, including anaerobic screen Blood Culture Start: 05-09-2023 Performance of Urinary Filtration, Intermittent, Less than 6 Hours Per Day Performance of Urinary Filtration, Intermittent, Less than 6 Hours Per Day Start: 05-07-2023 Start: 05-06-2023 Referral to renal nurse Start: 05-05-2023 Start: 05-03-2023 Blood chemistry Start: 05-02-2023 Blood chemistry Start: 05-01-2023 Administration of prophylactic treatment Start: 05-01-2023 Physical therapy procedure [facility] Start: 05-01-2023 Blood chemistry Start: 05-01-2023 Start: 04-30-2023 Referral to palliative care physician Start: 04-30-2023 Blood chemistry Start: 04-30-2023 End: 04-30-2023 Start: 04-29-2023 Referral to infectious diseases physician Start: 04-29-2023 Blood chemistry Start: 04-29-2023 Start: 04-28-2023 Start: 04-28-2023 Hospital admission Start: 04-28-2023 Referral to steeler [facility] Start: 04-28-2023 Bacteria identified in Blood by Culture Blood Culture Start: 04-28-2023 Insertion of Infusion Device into Superior Vena Cava, Percutaneous Approach Insertion of Infusion Device into Superior Vena Cava, Percutaneous Approach Start: 04-28-2023 Performance of Urinary Filtration, Intermittent, Less than 6 Hours Per Day Performance of Urinary Filtration, Intermittent, Less than 6 Hours Per Day Start: 04-28-2023 Start: 04-28-2023 Bacteria identified in Urine by Culture Start: 04-04-2023 Influenza vaccination [facility] Start: 02-02-2023 End: 02-02-2023 Angiography extremity unilateral rs&i ANGIOGRAM Malfunction of arteriovenous dialysis fistula, initial encounter ([facility]) 02/02/2023 3:20 PM EDT [facility] Start: 05-12-2022 Creatinine measurement Creatinine [facility] Start: 05-12-2022 Potassium [Moles/volume] in Serum or Plasma Potassium [facility] Start: 05-05-2022 Influenza vaccination Flu vaccine (Season Ended) [facility] Start: 04-04-2022 Influenza vaccination Flu vaccine (#1) [facility] Start: 02-07-2022 End: 02-07-2022 Patient encounter procedure 02/07/2022 Office Visit Vascular Surgery Justyn Alvarez MD [address] [place] [id number] [facility] Start: 01-18-2022 End: 01-18-2022 Admission to same day surgery center 01/18/2022 Surgery IP Unit Justyn Alvarez MD [address] [address] [address] [place], [place] [id number] UPPER EXTREMITY AV FISTULA CREATION VS AV GRAFT [facility] Comment on above: UPPER EXTREMITY AV FISTULA CREATION VS A V GRAFT Start: 01-18-2022 Subsequent hospital visit by physician 01/18/2022 Hospital Encounter IP Unit Justyn Alvarez MD [address] [address] [address] [place], [place] [id number] [facility] Start: 01-18-2022 End: 01-18-2022 AV FISTULA CREATION [facility] Start: 2003 Shingles vaccine (1 of 2) Shingles vaccine (1 of 2) [facility] Start: 2002 Hepatitis C screening Hepatitis C screen [facility] Start: 1999 HIV screening HIV screen [facility] Start: 04-09-1999 DTaP,Tdap and Td Vaccines (6 - Tdap) DTaP,Tdap and Td Vaccines (6 - Tdap) [facility] Start: 04-09-1999 DTaP/Tdap/Td vaccine (6 - Tdap) DTaP/Tdap/Td vaccine (6 - Tdap) [facility] Start: 1997 Varicella vaccine (1 of 2 - 13+ 2-dose series) Varicella vaccine (1 of 2 - 13+ 2-dose series) [facility] Start: 1996 Depression Screen Depression Screen [facility] Start: 1996 Depression Screening Depression Screening [facility] Start: 1990 Pneumococcal 0-64 years Vaccine (1 - PCV) Pneumococcal 0-64 years Vaccine (1 - PCV) [facility] Start: 1990 Pneumococcal 0-64 years Vaccine (1 of 2 - PCV) Pneumococcal 0-64 years Vaccine (1 of 2 - PCV) [facility] Start: 1989 COVID-19 Vaccine (1) COVID-19 Vaccine (1) [facility] Start: 1985 Varicella vaccine (1 of 2 - 2-dose childhood series) Varicella vaccine (1 of 2 - 2-dose childhood series) [facility] Start: 03-21-1985 COVID-19 Vaccine (#1) COVID-19 Vaccine (#1) [facility] Adult NIV/Positive A irway Pressure Adult NIV/Positive Airway Pressure Respiratory Care Routine Every 4hr until discontinued starting 05/27/2023 [facility] Comment on above: Every 4hr until discontinued starting Bacteria identified in Blood by Culture End: 02-04-2022 Catheterization and angiography procedure details panel [facility] Work Phone: Comment on above: One Time for 1 Occurrences starting 0 11/2021 until 02/04/2022 End: 08-18-2022 Catheterization and angiography procedure details panel Cardiac Catheterization Cardiac Cath Routine One Time for 1 Occurrences starting 08/18/2022 until 08/18/2022 [employer] Phone: Comment on above: One Time for 1 Occurrences starting 08/04 until 08/18/2022 End: 10-27-2022 Catheterization and angiography procedure details panel Diagnostic Cardiac Cdl Driver Procedure Cardiac Cath Routine One Time for 1 Occurrences starting 10/27/2022 until 10/27/2022 [employer] Phone: Comment on above: One Time for 1 Occurrences starting 10/06 until 10/27/2022 End: 02-02-2023 Catheterization and angiography procedure details panel [employer] Phone: Comment on above: One Time for 1 Occurrences starting 09/2022 until 02/02/2023 Continuous pulse oximetry Pulse oximetry, continuous Respiratory Care Routine Every 4hr until discontinued starting 05/27/2023 [employer] Comment on above: Every 4hr until discontinued starting End: 05-27-2023 Hemodialysis Hemodialysis Dialysis Routine One Time for 1 Occurrences starting 05/27/2023 until 05/27/2023 [employer] Comment on above: One Time for 1 Occurrences starting 05/06 until 05/27/2023 Initiate ED RT Bronc hospasm Protocol Initiate ED RT Bronchospasm Protocol Respiratory Care Routine Daily until discontinued starting 05/26/2023 [employer] Comment on above: Daily until discontinued starting 2022 End: 01-18-2022 INITIATE PACU OXYGEN THERAPY PROTOCOL Initiate PACU Oxygen Therapy Protocol Respiratory Care Routine Continuous until discontinued starting 01/18/2022 [employer] Phone: Comment on above: Continuous until discontinued starting 0 01/18/2022 End: 05-27-2023 INITIATE PACU OXYGEN THERAPY PROTOCOL Initiate PACU Oxygen Therapy Protocol Respiratory Care Routine Continuous until discontinued starting 05/27/2023 [employer] Comment on above: Continuous until discontinued starting 0 05/27/2023 Intermittent pulse oximetry Puls e Oximetry Spot Check Respiratory Care Routine As Needed until discontinued starting 05/26/2023 [employer] Comment on above: As Needed until discontinued starting Oxygen therapy [Mini mum Data Set] Initiate Oxygen Therapy Protocol Respiratory Care Routine As Needed until discontinued starting 02/04/2022 [employer] Work Phone: Comment on above: As Needed until discontinued starting Oxygen therapy [Mini mum Data Set] Initiate Oxygen Therapy Protocol Respiratory Care Routine As Needed until discontinued starting 08/18/2022 [employer] Work Phone: Comment on above: As Needed until discontinued starting Oxygen therapy [Mini mum Data Set] Initiate Oxygen Therapy Protocol Respiratory Care Routine As Needed until discontinued starting 02/02/2023 [employer] Work Phone: Comment on above: As Needed until discontinued starting Oxygen therapy [Mini mum Data Set] Initiate Oxygen Therapy Protocol Respiratory Care Routine As Needed until discontinued starting 02/02/2023 [employer] Work Phone: Comment on above: As Needed until discontinued starting Oxygen therapy [Mini mum Data Set] Initiate Oxygen Therapy Protocol Respiratory Care Routine As Needed until discontinued starting 05/26/2023 [employer] Work Phone: Comment on above: As Needed until discontinued starting Oxygen therapy [Mini mum Data Set] Initiate Oxygen Therapy Protocol Respiratory Care Routine As Needed until discontinued starting 09/12/2024 [employer] Comment on above: As Needed until discontinued starting Patient Education Anemia of Infl ammation (DC) Chronic Kidney Disease (DC) Normocytic Normochromic Anemia (DC) [facility] Work Phone: Patient referral [facility] Work Phone: End: 02-04-2022 POC CHEMISTRY (NA,K,ICA,GLU,CALC HCT/HGB,LACTATE,CREA,CL) POC CHEMISTRY (NA,K,ICA,GLU,CALC HCT/HGB,LACTATE,CREA,CL) Point of Care Testing STAT One Time for 1 Occurrences starting 02/04/2022 until 02/04/2022 [facility] Work Phone: Comment on above: One Time for 1 Occurrences starting 11/2021 until 02/04/2022 End: 09-12-2024 POC CHEMISTRY (NA,K,ICA,GLU,CALC HCT/HGB,LACTATE,CREA,CL) POC CHEMISTRY (NA,K,ICA,GLU,CALC HCT/HGB,LACTATE,CREA,CL) Point of Care Testing Routine One Time for 1 Occurrences starting 09/12/2024 until 09/12/2024 [facility] Comment on above: One Time for 1 Occurrences starting 05/2025 until 09/12/2024 End: 05-27-2023 Wound ostomy eval and treat Wound ostomy eval and treat Wound Ostomy Routine One Time for 1 Occurrences starting 05/27/2023 until 05/27/2023 [facility] Comment on above: One Time for 1 Occurrences starting 05/06 until 05/27/2023 [facility] Immunizations Immunization Date Immunization Notes Care Provider [facility] 08-01-2022 COVID-19 mRNA Bivale nt Booster (Pfizer) MD Denis Melvin Work Phone: 07-01-2022 influenza virus vaccine, unspecified formulation Josue Key MD Work Phone: [employer] 09-01-2021 COVID-19 mRNA Bivale nt Booster (Moderna) MD Denis Melvin Work Phone: 10-29-2020 COVID-19 mRNA-1273 (Moderna) MD Denis Melvin Work Phone: 10-01-2020 COVID-19 mRNA-1273 (Moderna) MD Denis Melvin Work Phone: Payers Date Payer Category Payer Self-pay 2017 Medicaid [id number] 2004 Medicare [id number] 1984 Unknown [id number] 2.16.8 [id number] 1984 Unknown [id number] 2.16.84 [id number] 1984 Unknown [id number] 2.16.84 [id number] 1984 Unknown [id number] [id number] 1984 Unknown [id number] 2.16. [id number] 1984 Unknown [id number] 2.16. [id number] 1984 Unknown [id number] 2.16. [id number] 1959 Medicaid [id number] 1. [id number] 1960 Medicare [id number] Unknown Unknown [id number] 2.16.8 [id number] Unknown [id number] 2.16.8 [id number] Unknown [id number] 2.16.8 [id number] Unknown [id number] 2.16.8 [id number] Social History Date Type Detail Facility Start: 01-03-2022 End: 08-18-2022 Tobacco smoking status NHIS Never smoked tobacco [employer] Start: 01-03-2022 End: 08-18-2022 Tobacco use and exposure Smokeless tobacco non-user [employer] Phone: Start: 01-03-2022 End: 09-12-2024 Alcohol intake Lifetime non-drinker (finding) [employer] Phone: Start: 1985 Sex Assigned At Not on file [employer] Work Phone: Start: 01-08-2022 End: 10-27-2022 Exposure to SARS-CoV-2 (event) Not sure [employer] Phone: Start: 04-28-2023 End: 05-06-2023 Tobacco smoking status NHIS Unknown if ever smoked Start: 1985 Sex Assigned At Male Start: 05-27-2023 End: 08-05-2023 Sex Assigned At [facility] Start: 05-27-2023 End: 08-05-2023 History of Social function [facility] Do you belong to any clubs or organizations such as oriental orthodox groups, unions, fraternal or athletic groups, or school groups? No [facility] Are you now , , , , never or living with a partner? Never [facility] How often to you hav e a drink containing alcohol? Never [facility] Average Number of Drinks Not on file [facility] Do you feel stress - tense, restless, nervous, or anxious, or unable to sleep at night because your mind is troubled all the time - these days [OSQ] Not at all [facility] Start: 04-09-2015 Sex Male (finding) [facility] Start: 04-01-2021 Gender identity Identifies as male gender (finding) [facility] Start: 01-27-2023 Alcohol Comment Caffeine: none [facility] (I/We) worried whegenaro er (my/our) food would run out before (I/we) got money to buy more. Never true [facility] Medical Equipment Procedure Code Equipment Code Equipment Origin al Text Equipment Identifier Dates Graft Vasc L40cm Dia6mm Bov Car Art Cllgn For Func Had Accs - [id number] Start: 01-18-2022 Graft Vasc L300m m Od4-7mm Univ Eptfe Str Std Wall Tapr - [id number] FDA Start: 06-13-2023 Goals Date Patient Goal Desired Activity /State Personal health goal Comment on above: Formatting of this n ote might be different from the original. Evaluation of progress towards goal: Pts family plan for pt to discharge home with family support; decline need for home care services. Functional Status Date Assessment Result Facility 05-20-2023 Functional status Patient at Baseline [facility] Work Phone: 05-12-2023 Functional status Patient at Baseline [facility] Work Phone: 05-07-2023 Functional status Patient is Pro gressing Toward Baseline [facility] Work Phone: 04-28-2023 Functional status Patient at Baseline [facility] Work Phone: Mental Status Date Assessment Result Facility 05-20-2023 Cognitive function Cognitive Sta tus Patient at Baseline [facility] Work Phone: 05-12-2023 Cognitive function Cognitive Sta tus Patient at Baseline [facility] Work Phone: 05-07-2023 Cognitive function Cognitive Sta tus Patient at Baseline [facility] Work Phone: 04-28-2023 Cognitive function Cognitive Sta tus Patient at Baseline [facility] Work Phone: Clinical Notes 2018 to [...] and physical needed. documented in this encounter [facility] 09-12-2024 Hospital Discharg e instructions Carlos Lima [...] prescribed by physician. If prescribed narcotic medications ([place], Percocet, or Roxicodone) attempt to wean off medications as soon as possible. FOLLOW UP: Call and make appointment to follow up in vascular surgery clinic as needed. SPECIAL INSTRUCTIONS: Ok to use left upper extremity AV graft for dialysis. documented in this encounter [facility] 05-27-2023 History of Presen t illness Narrative [...] Type of access used=Perm catheter Length of eetutwdze=068 Patient tolerated treatment well. Patient seen in [...] consent was obtained. -Plan for dialysis afterwards [facility] [place] Office: [phone] Email: [email or web address] attestation - Cindy Love MD - [...] in the next 1-2 weeks as outpatient. [facility] [place] O: C: Email: [email or web address] PHARMACY NOTE: The electrolyte replacement protocol for [...] or converted to UFH per the approved [facility] protocol and table as identified below. Ruddy [...] 9:53 PM documented in this encounter [facility] 05-27-2023 Hospital course Narrative Images from the original note were not included. [facility] Office: [phone] Les Geiger DO, Tank Heard DO, Bright Rollins DO, Rojas Alex DO, Malachi Lemons MD, Andressa Stewart MD, Uvrashi Rebollar MD, Reema Booker MD, Chaz Armstrong [...] Juve Moeller DO, Victorino Bruno MD, Jason Brown MD, Quang Grande MD, Christina Landsi CNP, Nadya Schultz CNP,, Spencer Valencia CNP, Mimi Bridges, CARMELLA, Muriel Mcafrland CNP, Gerri Roth CNP, Stefany Méndez TIEDOWN OPERATOR, Elvira Stuart, TIEDOWN OPERATOR, Ashley Mendes CNP, Felipa Stern CNP, Nevin Ovalle, FRANCHESCA, Thelma Navarrete CNP, Anabell Alvarez, BEATRICE [facility] Discharge Summary Patient ID: Ruddy Palmer : 1985 ACCOUNT: [id number] Patient Location : Patient's PCP: Denis Melvin MD Admit Date: 05/26/2023 Discharge Date: 05/27/23 Length of Stay: 0 Code Status: Full Code Admitting Physician: Bandar Mccurdy MD Discharge Physician: Urvashi Rebollar MD Active Discharge Diagnosis : Primary Problem Problem with vascular access Hospital Problems Active Hospital Problems Diagnosis Date Noted E-coli UTI [N39.0, B96.20] 05/27/2023 Acute on chronic respiratory failure with hypoxia ([facility]) [J96.21] 05/27/2023 RILEY (obstructive sleep apnea) [G47.33] 05/27/2023 Cognitive developmental delay [F81.9] 05/27/2023 Cerebral palsy (HCC) [G80.9] 05/27/2023 ESRD (end stage renal disease) (FORMERLY [facility]) [N18.6] 05/27/2023 Anemia, chronic disease [D63.8] 05/27/2023 Problem with vascular access [Z78.9] 05/26/2023 AV graft thrombosis, initial encounter ([facility]) [T82.868A] 05/26/2023 Admission Condition: fair Discharged Condition: stable Hospital Stay: Hospital Course: Ruddy Palmer is a 37 y.o. male who was admitted for the management of Problem with vascular access , presented to ER with Vascular Access Problem Patient had thrombosed AV fistula . He has known H/O ESRD on hemodialysis, Cerebral Palsy. He was recently admitted at [facility] for HCAP and discharged on Ertepenem for [...] patient's care. documented in this encounter [facility] 05-27-2023 Hospital Discharg e instructions Urvashi Rebollar [...] ARTEGRAFT performed by Justyn Alvarez MD at [facility] DIALYSIS FISTULA CREATION Left 08/18/2022 LEFT UPPER EXTREMITY FISTULAGRAM performed by Justyn Alvarez MD at [facility] FISTULAGRAM Left 08/18/2022 FISTULAGRAM Left FISTULAGRAM Left 10/27/2022 left upper extremity fistulagram with angioplasty of av fistula performed by Justyn Alvarez MD at [facility] HERNIA REPAIR X3 OTHER SURGICAL HISTORY multiple cleaning ear canals OTHER SURGICAL HISTORY Left 01/18/2022 Left AV fistula TONSILLECTOMY VASCULAR SURGERY Left 02/02/2023 UPPER EXTREMITY FISTULAGRAM with balloon angioplasty of fistula. performed by Justyn Alvarez MD at [facility] Immunization History: There is no immunization history on file for this patient. Active Problems: Patient Active Problem List Diagnosis Code Stenosis of AV fistula, initial encounter (FORMERLY [facility]) T82.858A Problem with vascular access Z78.9 AV graft thrombosis, initial encounter (FORM[facility]) T82.868A E-coli UTI N39.0, B96.20 Acute on chronic respiratory failure with hypoxia (FORMERLY [facility]) J96.21 RILEY (obstructive sleep apnea) G47.33 Cognitive developmental delay F81.9 Cerebral palsy (FORMERLY [facility]) G80.9 ESRD (end stage renal disease) (FORMERLY [facility]) N18.6 Anemia, chronic disease D63.8 Isolation/Infection: Isolation [...] MENTAL STATUS:} IV Access: { JOANNE IV ACCESS:176464606} Nursing Mobility/ADLs: Walking {CHP DME ADLs:530821246} Transfer {CHP DME ADLs:784202359} Bathing {CHP DME ADLs:633324046} Dressing {CHP DME ADLs:886405162} Toileting {CHP DME ADLs:271093823} Feeding {CHP DME ADLs:248459747} [employer]ic [employer] {CHP DME ADLs:864677908} Med Delivery { JOANNE MED Delivery:505716443} Wound Care Documentation and Therapy: Puncture 08/18/22 [...] Bladder: {YES / NO:} Urinary Catheter: {Urinary Catheter:964033094} Colostomy/Ileostomy/Ileal Conduit: {YES / NO:} Date of Last BM: Intake/Output Summary (Last 24 hours) at 05/27/2023 1701 Last data filed at 05/27/2023 1120 Gross per 24 hour Intake 500 ml Output -- Net 500 ml No intake/output data recorded. Safety Concerns: { JOANNE Safety Concerns:506996940} Impairments/Disabilities: { JOANNE Impairments/Disabilities:369574 273} Nutrition Therapy: Current Nutrition Therapy: { JOANNE Diet List:018362865} Routes of Feeding: {[facility] Other Feedings:377487936} Liquids: {[facility] liquid thickness:80081} Daily Fluid Restriction: {[facility] DME Yes amt example:401714251} Last Modified Barium Swallow with Video (Video Swallowing Test): {Done Not Done Date:} Treatments at the Time of Hospital Discharge: Respiratory Treatments: Oxygen Therapy: {Therapy; copd oxygen:78515} Ventilator: { CC Vent List:553015509} Rehab Therapies: {THERAPEUTIC INTERVENTION:6902868207} Weight Bearing Status/Restrictions: {[facility] Weight Bearin} Other Medical Equipment (for information only, NOT a DME order): {EQUIPMENT:601786210} Other Treatments: Patient's personal belongings (please select all that are sent with patient): {[facility] DME Belongings:866439467} RN SIGNATURE: {Esignature:645215835} CASE MANAGEMENT/SOCIAL WORK SECTION Inpatient Status Date: Readmission Risk Assessment Score: Readmission Risk Risk of Unplanned Readmission: 0 Discharging to Facility/ Agency Name: Address: Phone: Fax: Dialysis Facility (if applicable) Name: Address: Dialysis Schedule: Phone: Fax: Floral Merchandiser/Office Rep signature: {Belengnature:669588250} PHYSICIAN SECTION Prognosis: Guarded Condition at Discharge: [...] H&P PHYSICIAN SIGNATURE: documented in this encounter [facility] 05-25-2023 Evaluation note Encounter Date Diagnosis Assessment [...] be uncomfortable. Patient's mom as well as manager recruitment states he is doing quite well otherwise. [...] antibiotic treatment at home (ICD-10 - Z79.2) [facility] Other 09-16-2023 Progress note Author Melina Garcia May 20, 2023 1:40pm Note Date/Time May 20, 2023 1:39pm [facility] EN[facility] [address] [place], [place] [address] Nephrology Progress Note Signed Patient: Ruddy Palmer MR#: [id number] : 1985 Acct:[id number] Age/Sex: 37 / M Adm Date: 3 Loc: Room: [address] [place] [address] Type: ADM IN Attending Dr: Rajendra Pierce [...] 2 years and currently goes to the [facility] twice a week schedule Monday and Monday. 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 Objective Intake [...] 2 Mg Tablet) 2 mg PO SuTuWeThSa@0900 [facility] Stop: 05/17/24 08:59 Last Admin: 05/20/23 09:14 Dose: 2 mg Clonazepam (Clonazepam 0.25 Mg Tablet) 0.25 mg PO TID PRN PRN Reason: anxiety Stop: 11/13/23 22:49 Darbepoetin Tatianna (Darbepoetin Tatianna In Polysorbat 60 Mcg/Ml Vial) 60 mcg IV-PUSHFr@0900 [facility] Stop: 05/18/24 08:59 Last Admin: 05/19/23 10:07 Dose: 60 mcg Diltiazem HCl (Diltiazem 30 Mg Tablet) 30 mg PO TID [facility] Stop: 05/16/24 22:49 Last Admin: 05/20/23 09:14 [...] Last Infusion: 05/19/23 10:09 Dose: Infused Ipratropium Stilwell (Ipratropium Stilwell 0.5 Mg/2.5 Ml Vial.Neb) 0.5 mg INHALATION TID [facility] Stop: 05/16/24 22:59 Last Admin: 05/20/23 07:33 Dose: 0.5 mg Levalbuterol HCl (Levalbuterol Hcl *Nf* 1.25 Mg/3 Ml Vial.Neb) 1.25 mg INHALATION TID [facility]; Protocol Stop: 05/16/24 22:59 Last Admin: 05/20/23 [...] induced MCKENNA. He currently goes to the [facility] twice a week schedule. (3) Dialysis AV [...] signed by Melina Garcia MD> 05/20/23 1340 [facility] Work Phone: 1([phone]) 206-623609-16-2023 Progress note Author Rajendra Pierce May 20, 2023 11:45am Note Date/Time May 20, 2023 11:45am [facility] EN[facility] [address] [place] [address] Progress Note Signed Patient: Ruddy Palmer MR#: [id number] : 1985 Acct:[id number] Age/Sex: 37 / M Adm Date: 3 Loc: 4P Room: [address] [place] [address] Type: ADM IN Attending Dr: Rajendra Pierce MD Copies to: ~ Date of Service: 05/20/2023 Progress Narrative Note PROGRESS NOTE Progress Note: I called his mom Fabby and gave her update on his condition, status and tx plan. I answered all other questions. Fabby is appreciative of the care that her sonhad received here at . Documented By: Rajendra Pierce MD 05/20/23 114 Signed By: <Electronically signed by Rajendra Pierce MD> 05/20/23 1145 [facility] Work Phone: 1(185) 428-269609-16-2023 Discharge summary Author Rajendra Pierce May 20, 2023 11:43am Note Date/Time May 20, 2023 11:40am [facility] EN[facility] [address] [place] [address] Discharge Summary Signed Patient: Ruddy Palmer MR#: [id number] : 1985 Acct:[id number] Age/Sex: 37 / M Adm Date: 3 Loc: 4P Room: [address] [place] [address]: Rajendra Pierce MD Copies to: [...] ask your primary care provider to obtain [facility] records entirely to follow up on all of the abnormal physical, laboratory, and imaging findings that I have not addressed. Please return back to the emergency room or seek medical attention if your symptoms worsen or return. Discharging you from [facility] does not mean that your medical care [...] signed by Rajendra Pierce MD> 05/20/23 1143 [facility] Work Phone: 1([phone] 201-412809-16-2023 Progress note Author Rajendra Pierce May 20, 2023 10:59am Note Date/Time May 20, 2023 10:59am [facility] [address] [place], [place] [address] Hospitalist Progress Note Signed Patient: Ruddy Palmer MR#: [id number] : 1985 Acct:[id number] Age/Sex: 37 / M Adm Date: 3 Loc: 4 Room: [address] [place] [address] Type: ADM IN Attending Dr: Rajendra Pierce [...] .Q0M PRN Infusion Dialysis As Directed Ipratropium Stilwell 0.5 mg 05/18/23 09:00 05/20/23 07:33 Ipratropium Stilwell 0.5 Mg/2.5 Ml Vial.Neb INHALATION 05/16/24 22:59 [...] HD?2 days a week?Mondays and Fridays at [facility], [place]. Guardado ? Consult nephrology -Left [...] prior records Documented By: Rajendra Pierce MD 05/20/231056 Signed By: <Electronically signed by Rajendra Pierce MD> 05/20/231058 [facility] Work Phone: 1(135) 489-389409-15-2023 History and physical note Author Spencer Dyson May 19, 2023 8:09pm Note Date/Time May 17, 2023 10:09pm [facility] EN[facility] [address] [place] [address] Hospitalist H&P Signed Patient: Ruddy Palmer MR#: [id number] : 1985 Acct:[id number] Age/Sex: 37 / M Adm Date: 3 Loc: Room: [address] [place] [address] Type: ADM IN Attending Dr: Rajendra Pierce [...] of Systems Unobtainable due to mental condition [facility] Medical History (Updated 05/17/23 @ 22:22 by [...] parents, mother is caregiver at home, 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 Medications and Allergies Allergies ciprofloxacin [...] % (Auto) 9.9 % (.) 05/17/23 14:04 Island % (Auto) 14.0 % (.) 05/17/23 14:04 Eos % (Auto) 4.0 % (.) 05/17/23 14:04 Baso % (Auto) 0.8 % (.) 05/17/23 14:04 Nucleat RBC Rel Count 0.3 /100 WBC (0-0.5) 05/17/23 14:04 Neut # (Auto) 7.6 x10E3/uL (1.8-7.7) 05/17/23 14:04 Lymph # (Auto) 1.1 x10E3/uL (1.00-4.8) 05/17/23 14:04 Island # (Auto) 1.5 x10E3/uL (0.0-0.8) H 05/17/23 [...] pH 6.0 (5.0-9.0) 05/17/23 17:27 Ur Specific [place] 1.006 (1.001-1.030) 05/17/23 17:27 Urine Protein Trace [...] HD?2 days a week?Mondays and Fridays at [facility] [place] Dr. Guardado ? Consult nephrology Left [...] <Electronically signed by Spencer Dyson MD> 05/19/232008 [facility] Work Phone: [phone]) 370-308409-15-2023 Consult note Author Rojas No May 19, 2023 2:42pm Note Date/Time May 19, 2023 2:42pm [facility] EN[facility] [address] [place] [address] Vascular Surgery Consult Note Signed Patient: Ruddy Palmer MR#: [id number] : 1985 Acct:[id number] Age/Sex: 37 / M Adm Date: 3 Loc: 4 Room: [address] [place] [address] Type: ADM IN Attending Dr: Rajendra Pierce MD Copies to: MD Rojas Rutledge MD Rafik Massouh, MD~ HPI Consult HPI Reason for consult: Inadequate left arm fistula History of present illness: Mr. Palmer is a 37 year old male with a left upper arm autologous fistula who dialyzes in [facility]. He generally gets intervention for his access in [place]. I was asked to examine his dialysis access today as it is quite pulsatile and the flows by ultrasound are diminished. cc:: CC: Rajendra Pierce MD Data of Consult Consult date: 05/19/2023 Requesting Physician: Rajendra Pierce MD [facility] Medical History A-V fistula LUE Adult hyaline [...] [facility] Code(s): T82.590A - Other mechanical complication of surgically created arteriovenous fistula, initial encounter Status: Acute Documented By: Rojas No MD 05/19/23 144 0 Signed By: <Electronically signed by MD Rojas No> 05/19/23 1442 [facility] Work Phone: [phone] Progress note Author Jami Grimes May 19, 2023 2:40pm Note Date/Time May 19, 2023 2:40pm [facility] [address] [place] [address] Pulmonology Progress Note Signed Patient: Ruddy Palmer MR#: [id number] : 1985 Acct:[id number] Age/Sex: 37 / M Adm Date: 3 Loc: Room: [address] [place] [address] Type: ADM IN Attending Dr: Rajendra Pierce [...] signed by Jami Grimes MD> 05/19/23 1440 [facility] Work Phone: 1(740) 628-371109-15-2023 Progress note Author Rajendra Pierce May 19, 2023 1:13pm Note Date/Time May 19, 2023 1:07pm [facility] [address] [place], [place] [address] Progress Note Signed Patient: Ruddy Palmer MR#: [id number] : 1985 Acct:[id number] Age/Sex: 37 / M Adm Date: 3 Loc: Room: [address] [place] [address] Type: ADM IN Attending Dr: Rajendra Pierce [...] <Electronically signed by Rajendra Pierce MD> 05/19/233 [facility] Work Phone: 1(256) 577-265509-15-2023 Progress note Author Rajendra Pierce May 19, 2023 12:32pm Note Date/Time May 19, 2023 8:22am [facility] [address] [place] [address] Hospitalist Progress Note Signed Patient: Ruddy Palmer MR#: [id number] : 1985 Acct:[id number] Age/Sex: 37 / M Adm Date: 3 Loc: 4 Room: 2Z0406-2 Type: ADM IN Attending Dr: Rajendra Pierce [...] Tablet PO 05/17/24 08:59 2 mg SuTuWeThSa@0900 [facility] Administration Clonazepam 0.25 mg 05/18/23 11:47 Clonazepam 0.25 Mg Tablet PO 11/13/23 22:49 TID PRN anxiety Darbepoetin Tatianna 60 mcg 05/19/23 09:00 Darbepoetin Tatianna In Polysorbat 60 Mcg/Ml Vial IV-PUSH 05/18/24 08:59 Fr@0900 [facility] Diltiazem HCl 30 mg 05/17/23 22:50 05/18/23 [...] 07:46 .Q0M PRN Dialysis As Directed Ipratropium Stilwell 0.5 mg 05/18/23 09:00 05/18/23 20:50 Ipratropium Stilwell 0.5 Mg/2.5 Ml Vial.Neb INHALATION 05/16/24 22:59 [...] HD?2 days a week?Mondays and Fridays at [facility], [place] Dr. Guardado ? Consult nephrology -Left [...] by DO BALL Lissett Hernandez> 05/19/23 0822 [facility] Work Phone: [phone]) 725-255009-15-2023 Progress note Author Melina Garcia May 19, 2023 10:24am Note Date/Time May 19, 2023 10:24am [facility] EN[facility] [address] [place], [place] [address] Nephrology Progress Note Signed Patient: Ruddy Palmer MR#: [id number] : 1985 Acct:[id number] Age/Sex: 37 / M Adm Date: 3 Loc: Room: [address] [place] [address] Type: ADM IN Attending Dr: Rajendra Pierce [...] 2 years and currently goes to the [facility] twice a week schedule Monday and Monday. 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 Objective Intake [...] 2 Mg Tablet) 2 mg PO SuTuWeThSa@0900 [facility] Stop: 05/17/24 08:59 Last Admin: 05/18/23 08:43 Dose: 2 mg Clonazepam (Clonazepam 0.25 Mg Tablet) 0.25 mg PO TID PRN PRN Reason: anxiety Stop: 11/13/23 22:49 Darbepoetin Tatianna (Darbepoetin Tatianna In Polysorbat 60 Mcg/Ml Vial) 60 mcg IV-PUSHFr@0900 [facility] Stop: 05/18/24 08:59 Last Admin: 05/19/23 10:07 Dose: 60 mcg Diltiazem HCl (Diltiazem 30 Mg Tablet) 30 mg PO TID [facility] Stop: 05/16/24 22:49 Last Admin: 05/19/23 08:34 [...] Last Infusion: 05/19/23 10:09 Dose: Infused Ipratropium Stilwell (Ipratropium Stilwell 0.5 Mg/2.5 Ml Vial.Kelsey) 0.5 mg INHALATION TID [facility] Stop: 05/16/24 22:59 Last Admin: 05/19/23 09:00 Dose: 0.5 mg Levalbuterol HCl (Levalbuterol Hcl *Nf* 1.25 Mg/3 Ml Vial.Kelsey) 1.25 mg INHALATION TID [facility]; Protocol Stop: 05/16/24 22:59 Last Admin: 05/19/23 08:59 Dose: 1.25 mg Metoprolol Tartrate (Metoprolol Tartrate 25 Mg Tablet) 25 mg PO BID [facility] Stop: 05/16/24 22:49 Last Admin: 05/19/23 08:34 Dose: Not Given Non-Formulary Medication (Maltodextrin) 1 each PO DAILY PEN[facility] Stop: 05/17/24 08:59 Non-Formulary Medication (Dextromethorphan-Quinidine [Nuedexta]) 1 cap PO Q12H [facility] Stop: 05/16/24 22:59 Pantoprazole Sodium (Pantoprazole 40 Mg Tablet.) 40 mg PO DAILY [facility] Stop: 05/18/24 08:59 Sildenafil Citrate (Sildenafil Citrate 20 Mg Tablet) 20 mg PO TID [facility] Stop: 05/16/24 22:49 Last Admin: 05/19/23 08:34 [...] Rojas No M.D.05/18/2023 1:35 PM Dictation Location: [facility] Any impression(s) listed above is documentation that [...] induced MCKENNA. He currently goes to the [facility] twice a week schedule. (3) Dialysis AV [...] signed by Melina Garcia MD> 05/19/23 1024 [facility] Work Phone: [phone] Consult note Author Melina Garcia May 18, 2023 2:43pm Note Date/Time May 18, 2023 2:26pm [facility] EN[facility] [address] [place] [address] Nephrology Consult Note Signed Patient: Ruddy Palmer MR#: [id number] : 1985 Acct:[id number] Age/Sex: 37 / M Adm Date: 3 Loc: Room: [address] [place] [address] Type: ADM IN Attending Dr: Rajendra Pierce MD Copies to: MD Denis Faulkner MD Rafik Massouh, MD~ Providers Consult Date: 05/18/23 Requesting Provider: Raejndra Pierce MD Primary Care Provider: Denis Melvin [...] 2 years and currently goes to the [facility] twice a week schedule Monday and Monday. [...] of Systems Unobtainable due to mental status [facility] Medical History A-V fistula LUE Adult hyaline [...] 2 Mg Tablet) 2 mg PO SuTuWeThSa@0900 [facility] Stop: 05/17/24 08:59 Last Admin: 05/18/23 08:43 Dose: 2 mg Clonazepam (Clonazepam 0.25 Mg Tablet) 0.25 mg PO TID PRN PRN Reason: anxiety Stop: 11/13/23 22:49 Diltiazem HCl (Diltiazem 30 Mg Tablet) 30 mg PO TID [facility] Stop: 05/16/24 22:49 Last Admin: 05/18/23 13:27 Dose: 30 mg Ertapenem 0.5 gm/ Sodium (Chloride) 100 mls @ 200 mls/hr IV Q24H [facility] Stop: 05/17/24 18:59 Ipratropium Stilwell (Ipratropium Stilwell 0.5 Mg/2.5 Ml Vial.Neb) 0.5 mg INHALATION TID [facility] Stop: 05/16/24 22:59 Last Admin: 05/18/23 13:20 Dose: 0.5 mg Levalbuterol HCl (Levalbuterol Hcl *Nf* 1.25 Mg/3 Ml Vial.Neb) 1.25 mg INHALATION TID [facility]; Protocol Stop: 05/16/24 22:59 Last Admin: 05/18/23 [...] Skin: No rashes , 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 Results Labs 05/18/23 04:15 05/18/23 04:15 Labs: 05/17/23 05/17/23 05/18/23 14:04 17:27 04:15 BUN 40 H 44 H Creatinine 5.78 H 6.01 H Albumin 3.5 Urine Color Yellow Urine Appearance Clear Urine pH 6.0 Ur Specific [place] 1.006 Urine Protein Trace H Urine Glucose [...] Holli Alfonso M.D.05/17/2023 4:43 PM Dictation Location: [place] [address] A/V Fistula Ultrasound 05/18/23 05:00 IMPRESSION: This fistula has adequate size but there are several areas of stenosis noted. Overall flows are less than expected. Impression dictated by: Rojas No M.D.05/18/2023 1:35 PM Dictation Location: [place] [address] Any impression(s) listed above is documentation that [...] induced MCKENNA. He currently goes to the [facility] twice a week schedule. (3) Dialysis AV [...] call us with any question. Documented By: Melnia Garcia MD 05/18/23 1419 Signed By: <Electronically signed by Melina Garcia MD> 05/18/23 1443 [facility] Work Phone: [phone] Consult note Author Juve Blackwell May 18, 2023 1:06pm Note Date/Time May 18, 2023 10:45am [facility] EN[facility] [address] [place] [address] Pulmonology Consult Note Signed Patient: Ruddy Palmer MR#: [id number] : 1985 Acct:[id number] Age/Sex: 37 / M Adm Date: 3 Loc: Room: [address] [place] [address] Type: ADM IN Attending Dr: Rajendra Pierce MD Copies to: Carlos Rust MD, RES MD Denis Giang MD Rafik Massouh, MD~ HPI Date/Time of Consultation: Date of Service: 05/18/2023 Time of Service: 10:15 Consulting Provider: Jvue Blackwell Requesting Provider: Rajendra Pierce Reason for [...] point that 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 [facility] Medical History (Updated 05/18/23 @ 03:13 by [...] respiratory failure ismost likely due to insufficient RAIL ASSEMBLER response for respiratory compensation. We will [...] scenario, the patient's hypoventilation may be more RAIL ASSEMBLER related exacerbated by an acute issue with note of prior ESBL producing E. coli presumably from the urine and concernsfor prostatitis. Patient has been on ertapenem IV. His exam and laboratory values as well as radiographic studies do not suggest an obvious other etiology for worsening of RAIL ASSEMBLER function. Cultures are pending and will [...] <Electronically signed by MD Juve Blackwell> 05/18/23 1308 [facility] Work Phone: 1([phone]) [phone] Progress note Author Rajendra Pierce May 18, 2023 11:49am Note Date/Time May 18, 2023 8:41am [facility] EN[facility] [address] [place] [address] Hospitalist Progress Note Signed Patient: Ruddy Palmer MR#: [id number] : 1985 Acct:[id number] Age/Sex: 37 / M Adm Date: 3 Loc: 4 Room: [address] [place] [address] Type: ADM IN Attending Dr: Rajendra Pierce [...] Chloride IV 05/17/24 18:59 Q24H PENNY Ipratropium Stilwell 0.5 mg 05/18/23 09:00 Ipratropium Stilwell 0.5 Mg/2.5 Ml Vial.Neb INHALATION 05/16/24 22:59 TID [facility] Levalbuterol HCl 1.25 mg 05/18/23 09:00 Levalbuterol Hcl *Nf* 1.25 Mg/3 Ml Vial.Neb INHALATION 05/16/24 22:59 TID [facility] Protocol Metoprolol Tartrate 25 mg 05/17/23 22:50 [...] 1 Tab Tablet PO 05/17/24 21:59 QHS [facility] A&P - Hospitalist Assessment/Plan (1) Acute hypercapnic [...] HD?2 days a week?Mondays and Fridays at [facility], [place] is Dr. Guardado ? Consult nephrology -Left [...] <Electronically signed by DO LIZZY Hernandez> 05/18/23 1104 [facility] Work Phone: 1([phone]) 151-142109-08-2023 Discharge summary Author Michael Gonzalez May 12, 2023 1:55pm Note Date/Time May 12, 2023 1:55pm [facility] EN[facility] [address] [place] [address] Discharge Summary Signed Patient: Ruddy Palmer MR#: [id number] : 1985 Acct:[id number] Age/Sex: 37 / M Adm Date: 3 Loc: Room: [address] [place] [address]: Michael Gonzalez MD Copies to: [...] Plan Discharge Plan Patient Disposition: Home Health [facility] Activity: Ambulate as Tolerated Diet: Renal and [...] GI clinic to make an appointment at [facility] or [facility] for Endoscopy if needed. Other Ambulatory [...] signed by Michael Gonzalez MD> 05/12/23 1355 [facility] Work Phone: [phone]) [phone] Progress note Author Gabby Bedolla May 12, 2023 12:47pm Note Date/Time May 12, 2023 12:47pm [facility] EN[facility] [address] [place] [address] Nephrology Progress Note Signed Patient: Ruddy Palmer MR#: [id number] : 1985 Acct:[id number] Age/Sex: 37 / M Adm Date: 3 Loc: Room: [address] [place] [address] Type: ADM IN Attending Dr: Michael Gonzalez MD Copies to: ~ Date of Service: 05/12/2023 Subjective Subjective Narrative: This is a 37-year-old male patient with a past medical history of cerebral palsy, infantile intra cranial hemorrhage, hypertension, blindness and deafness,COPD, chronic respiratory failure, pulmonary hypertension, history of PE on Eliquis, history of end-stage renal disease on twice weekly hemodialysis at [facility]. Patient was brought in to the hospital [...] 2 Mg Tablet) 2 mg PO Camacho@0900 [facility] Stop: 05/09/24 08:59 Last Admin: 05/11/23 09:28 Dose: 2 mg Clonazepam (Clonazepam 0.5 Mg Tablet) 0.5 mg PO TID [facility] Stop: 11/07/23 21:59 Last Admin: 05/11/23 22:21 Dose: 0.5 mg Darbepoetin Tatianna (Darbepoetin Tatianna In Polysorbat 40 Mcg/Ml Vial) 40 mcg IV- PUSHFR@10 [facility] Stop: 05/11/24 09:59 Last Admin: 05/12/23 10:10 Dose: 40 mcg Diltiazem HCl (Diltiazem 30 Mg Tablet) 30 mg PO TID [facility] Stop: 05/08/24 21:59 Last Admin: 05/11/23 22:21 Dose: 30 mg Diphenhydramine HCl (Diphenhydramine 50 Mg/Ml Vial) 25 mg IV-PUSH Q8H PRN PRN Reason: Severe Rash or Itching Stop: 05/08/24 18:44 Ferric Sodium Gluconate Complex (Sodium Ferric Gluconat/Sucrose 62.5 Mg/5 Ml Vial) 62.5 mg IV-PUSH MO [facility] Stop: 05/14/24 08:01 Ertapenem 0.5 gm/ Sodium (Chloride) 100 mls @ 200 mls/hr IV Q24H [facility] Stop: 05/09/24 17:59 Last Infusion: 05/11/23 19:20 Dose: Infused Sodium Chloride (0.9 % Sodium Chloride) 500 mls @ 20 mls/hr IV PROTOCOL PRN PRN Reason: BLOOD TRANSFUSION Stop: 05/12/23 15:09 Sodium Chloride (0.9% Sodium Chloride 1,000 Ml) 1,000 mls @ 0 mls/hr MISCELLANE.Q0M PRN PRN Reason: Dialysis Stop: 05/11/24 08:01 Last Infusion: 05/12/23 10:12 Dose: Infused Ipratropium Stilwell (Ipratropium Stilwell 0.5 Mg/2.5 Ml Vial.Neb) 0.5 mg INHALATION QID.RESP [facility] Stop: 05/08/24 19:59 Last Admin: 05/12/23 12:14 Dose: 0.5 mg Lidocaine/Prilocaine (Lidocaine-Prilocaine Cr 2.5-2.5% 5 Gm Tube) 1 applic TOPICAL MOFR@0800 [facility] Stop: 05/11/24 07:59 Last Admin: 05/12/23 08:58 Dose: 1 applic Metoprolol Tartrate (Metoprolol Tartrate 25 Mg Tablet) 25 mg PO BID [facility] Stop: 05/08/24 20:59 Last Admin: 05/11/23 20:11 Dose: 25 mg Non-Formulary Medication (Dextromethorphan-Quinidine [Nuedexta]) 1 cap PO Q12H [facility] Stop: 05/10/24 14:29 Pantoprazole Sodium (Pantoprazole 40 Mg Vial) 40 mg IV-PUSH BID [facility] Stop: 05/08/24 20:59 Last Admin: 05/11/23 20:11 Dose: 40 mg Paricalcitol (Paricalcitol 10 Mcg/2 Ml Vial) 2 mcg IV-PUSH MoFr@09 [facility] Stop: 05/11/24 08:14 Last Admin: 05/12/23 10:10 [...] 1 Tab Tablet) 1 tab PO DAILY [facility] Stop: 05/09/24 08:59 Last Admin: 05/11/23 09:32 [...] schedule Monday and Monday. Patient goes to [facility]. Patient has functioning left upper extremity AVfistula [...] signed by Gabby Bedolla MD> 05/12/23 1247 [facility] Work Phone: [phone] 470-900009-07-2023 Consult note Author Elizabeth Benson May 11, 2023 7:42pm Note Date/Time May 11, 2023 7:28pm [facility] [address] [place] [address] Gastroenterology Consult Note Signed Patient: Ruddy Palmer MR#: [id number] : 1985 Acct:[id number] Age/Sex: 37 / M Adm Date: 3 Loc: Room: [address] [place] [address] Type: ADM IN Attending Dr: Michael Gonzalez [...] of Systems Unobtainable due to mental status [facility] Medical History Adult hyaline membrane disease Asthma Blind Cerebral palsy Cystic BPD (bronchopulmonary dysplasia) Hearing impaired Hypertension Non-verbal learning disorder Panacinar emphysema Pulmonary hypertension Social History Smoking Status: Never smoker Substance Use Type: None Social History Comments: lives with parents, mother is caregiver at home, 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 Medications and Allergies [...] <Electronically signed by Elizabeth Benson MD> 05/11/231941 [facility] Work Phone: [phone] 545-793809-07-2023 Progress note Author Michael Gonzalez May 11, 2023 4:04pm Note Date/Time May 11, 2023 2:21pm [facility] [address] [place] [address] Hospitalist Progress Note Signed with Addenda Patient: Ruddy Palmer MR#: [id number] : 1985 Acct:[id number] Age/Sex: 37 / M Adm Date: 3 Loc: Room: [address] [place] [address] Type: ADM IN Attending Dr: Michael Gonzalez [...] 17:59 200 mls/hr Q24H [facility] Administration Ipratropium Stilwell 0.5 mg 05/10/23 08:00 05/11/23 11:50 Ipratropium Stilwell 0.5 Mg/2.5 Ml Vial.Neb INHALATION 05/08/24 19:59 [...] <Electronically signed by Michael Gonzalez MD> 05/11/23 [facility]4 [facility] Work Phone: [phone] 211-252709-07-2023 Progress note Author Gabby Bedolla May 11, 2023 12:09pm Note Date/Time May 11, 2023 12:08pm [facility] [address] [place] [address] Nephrology Progress Note Signed Patient: Ruddy Palmer MR#: [id number] : 1985 Acct:[id number] Age/Sex: 37 / M Adm Date: 3 Loc: Room: [address] [place] [address] Type: ADM IN Attending Dr: Michael Gonzalez MD Copies to: ~ Date of Service: 05/11/2023 Subjective Subjective Narrative: This is a 37-year-old male patient with a past medical history of cerebral palsy, infantile intra cranial hemorrhage, hypertension, blindness and deafness,COPD, chronic respiratory failure, pulmonary hypertension, history of PE on Eliquis, history of end-stage renal disease on twice weekly hemodialysis at [facility]. Patient was brought in to the hospital [...] 2 Mg Tablet) 2 mg PO SuTuWeThSa@0900 [facility] Stop: 05/09/24 08:59 Last Admin: 05/11/23 09:28 Dose: 2 mg Diltiazem HCl (Diltiazem 30 Mg Tablet) 30 mg PO TID [facility] Stop: 05/08/24 21:59 Diphenhydramine HCl (Diphenhydramine 50 Mg/Ml Vial) 25 mg IV-PUSH Q8H PRN PRN Reason: Severe Rash or Itching Stop: 05/08/24 18:44 Ertapenem 0.5 gm/ Sodium (Chloride) 100 mls @ 200 mls/hr IV Q24H [facility] Stop: 05/09/24 17:59 Last Admin: 05/10/23 20:42 Dose: 200 mls/hr Ipratropium Stilwell (Ipratropium Stilwell 0.5 Mg/2.5 Ml Vial.Neb) 0.5 mg INHALATION QID.RESP [facility] Stop: 05/08/24 19:59 Last Admin: 05/11/23 11:50 Dose: 0.5 mg Lidocaine/Prilocaine (Lidocaine-Prilocaine Cr 2.5-2.5% 5 Gm Tube) 1 applic TOPICAL MOFR@0800 [facility] Stop: 05/11/24 07:59 Metoprolol Tartrate (Metoprolol Tartrate 25 Mg Tablet) 25 mg PO BID [facility] Stop: 05/08/24 20:59 Pantoprazole Sodium (Pantoprazole 40 Mg Vial) 40 mg IV-PUSH BID [facility] Stop: 05/08/24 20:59 Last Admin: 05/11/23 09:28 [...] schedule Monday and Monday. Patient goes to [facility]. Patient has functioning left upper extremity AVfistula [...] signed by Gabby Bedolla MD> 05/11/23 1202 [facility] Work Phone: [phone] Hospital Discharge instructionsAmbulatory Orders* Initiate Home Health [...] be arranged in a tertiary care center. [facility] Work Phone: [phone] Progress note Author Michael Gonzalez May 10, 2023 1:45pm Note Date/Time May 10, 2023 1:45pm [facility] [address] [place], [place] [id number] Hospitalist Progress Note Signed Patient: Ruddy Palmer MR#: [id number] : 1985 Acct:[id number] Age/Sex: 37 / M Adm Date: 3 Loc: Room: [address] [place] [address] Type: ADM IN Attending Dr: Michael Gonzalez [...] mls/hr PROTOCOL PRN Infusion BLOOD TRANSFUSION Ipratropium Stilwell 0.5 mg 05/10/23 08:00 05/10/23 12:06 Ipratropium Stilwell 0.5 Mg/2.5 Ml Vial.Neb INHALATION 05/08/24 19:59 [...] signed by Michael Gonzalez MD> 05/10/23 1345 [facility] Work Phone: [phone] Consult note Author Gabby Bedolla May 10, 2023 10:59am Note Date/Time May 10, 2023 10:55am [facility] [address] [place] [address] Nephrology Consult Note Signed Patient: Ruddy Palmer MR#: [id number] : 1985 Acct:[id number] Age/Sex: 37 / M Adm Date: 3 Loc: Room: [address] [place] [address] Type: ADM IN Attending Dr: Michael Gonzalez [...] renal disease on twice weekly hemodialysis at [facility]. 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 Medications & Allergies Allergies ciprofloxacin [...] 2 Mg Tablet) 2 mg PO SuTuWeThSa@0900 [facility] Stop: 05/09/24 08:59 Last Admin: 05/10/23 10:30 Dose: 2 mg Diltiazem HCl (Diltiazem 30 Mg Tablet) 30 mg PO TID [facility] Stop: 05/08/24 21:59 Diphenhydramine HCl (Diphenhydramine 50 Mg/Ml Vial) 25 mg IV-PUSH Q8H PRN PRN Reason: Severe Rash or Itching Stop: 05/08/24 18:44 Sodium Chloride (0.9 % Sodium Chloride) 500 mls @ 20 mls/hr IV PROTOCOL PRN PRN Reason: BLOOD TRANSFUSION Stop: 05/10/23 19:50 Last Infusion: 05/09/23 23:02 Dose: 0 mls/hr Meropenem (Merrem) 0.5 gm in 100 mls @ 200 mls/hr IV Q24H [facility] Last Infusion: 05/09/23 23:30 Dose: Infused Ipratropium Stilwell (Ipratropium Stilwell 0.5 Mg/2.5 Ml Vial.Neb) 0.5 mg INHALATION QID.RESP [facility] Stop: 05/08/24 19:59 Last Admin: 05/10/23 08:09 Dose: 0.5 mg Lidocaine/Prilocaine (Lidocaine-Prilocaine Cr 2.5-2.5% 5 Gm Tube) 1 applic TOPICAL PRN PRN PRN Reason: Dialysis Stop: 05/08/24 19:59 Metoprolol Tartrate (Metoprolol Tartrate 25 Mg Tablet) 25 mg PO BID [facility] Stop: 05/08/24 20:59 Pantoprazole Sodium (Pantoprazole 40 [...] Art Jr., D.O.05/09/2023 5:15 PM Dictation Location: [place] [address] Any impression(s) listed above is documentation that [...] schedule Monday and Monday. Patient goes to [facility]. Patient has functioning left upper extremity AVfistula [...] <Electronically signed by Gabby Bedolla MD> 05/10/23 1051 [facility] Work Phone: [phone]) [phone] History and physical note Author Michael Gonzalez May 09, 2023 8:02pm Note Date/Time May 09, 2023 7:01pm [facility] [address] [place] [address] Hospitalist H&P Signed Patient: Ruddy Palmer MR#: [id number] : 1985 Acct:[id number] Age/Sex: 37 / M Adm Date: 3 Loc: Room: [address] [place] [address] Type: ADM IN Attending Dr: Michael Gonzalez [...] % (Auto) 13.3 % (.) 05/09/23 16:23 Island % (Auto) 10.8 % (.) 05/09/23 16:23 Eos % (Auto) 1.2 % (.) 05/09/23 16:23 Baso % (Auto) 0.2 % (.) 05/09/23 16:23 Nucleat RBC Rel Count 0.1 /100 WBC (0-0.5) 05/09/23 16:23 Neut # (Auto) 7.5 x10E3/uL (1.8-7.7) 05/09/23 16:23 Lymph # (Auto) 1.3 x10E3/uL (1.00-4.8) 05/09/23 16:23 Island # (Auto) 1.1 x10E3/uL (0.0-0.8) H 05/09/23 [...] <Electronically signed by Michael Gonzalez MD> 05/09/232001 [facility] Work Phone: [phone] Discharge summary Author Ceferino Godinez May 07, 2023 12:59pm Note Date/Time May 07, 2023 12:59pm [facility] [address] [place] [address] Discharge Summary Signed Patient: Ruddy Palmer MR#: [id number] : 1985 Acct:[id number] Age/Sex: 37 / M Adm Date: 3 Loc: Room: [address] [place] [address]: Ceferino Godinez MD Copies to: [...] positive blood in the stool. We consulted renal nurse they did not find any reason for scope at this time. We increased omeprazole from once a day to twice daily. Patient will continue his hemodialysis as an outpatient. His next dialysis session willbe tomorrow. Details of his hospital stay, consultants notes, imaging studies, and biochemical lab results will be found in the electronic health record of [facility]. On the day of discharge patient was [...] % (Auto) 93.1, Lymph % (Auto) 4.9, Island % (Auto) 1.6, Eos % (Auto) 0.1, Baso % (Auto) 0.3, Nucleat RBC Rel Count 0.1, Neut # (Auto) 8.6 H, Lymph # (Auto) 0.5 L, Island # (Auto) 0.2, Eos # (Auto) 0.0, [...] Plan Discharge Plan Patient Disposition: Home Health [facility] Activity: No Activity Restriction Diet: Renal Additional [...] MD [Active Staff] - 05/25/23 2:30 pm eDnis Melvin MD [Primary Care Provider] - 05/10/23 10:45 am (Post hospital appointment. Please call to reschedule if needed.) Documented By: Ceferino Godinez MD 05/07/23 1253 Signed By: <Electronically signed by Ceferino Godinez MD> 05/07/23 1259 [facility] Work Phone: [phone] Progress note Author Jessica Macdonald May 07, 2023 10:51am Note Date/Time May 07, 2023 10:51am [facility] [address] [place] [address] Nephrology Progress Note Signed Patient: Ruddy Palmer MR#: [id number] : 1985 Acct:[id number] Age/Sex: 37 / M Adm Date: 3 Loc: Room: [address] [place] [address] Type: ADM IN Attending Dr: Ceferino Godinez [...] reported that he was seen by the [facility] many years ago whenhe was found to have a solitary kidney. Patient currently goes to the [facility] twice a week Monday and Monday schedule. [...] 100 Mg/Ml Vial) 400 mg INHALATION BID [facility] Stop: 05/04/24 09:29 Last Admin: 05/07/23 05:54 [...] 30 Mg Tablet) 30 mg PO TID [facility] Stop: 04/27/24 21:59 Last Admin: 05/07/23 08:47 Dose: 30 mg Ferric Sodium Gluconate Complex (Sodium Ferric Gluconat/Sucrose 62.5 Mg/5 Ml Vial) 62.5 mg IV-PUSH WEEKLY [facility] Stop: 04/30/24 08:59 Last Admin: 05/01/23 12:07 [...] PRN Reason: Dialysis Stop: 04/30/24 10:46 Ipratropium Stilwell (Ipratropium Stilwell 0.5 Mg/2.5 Ml Vial.Neb) 0.5 mg INHALATION QID [facility] Stop: 04/28/24 21:59 Last Admin: 05/07/23 09:58 Dose: 0.5 mg Levalbuterol HCl (Levalbuterol Hcl *Nf* 1.25 Mg/3 Ml Vial.Neb) 1.25 mg INHALATION Q4H.[facility]; Protocol Stop: 05/04/24 12:59 Last Admin: 05/07/23 09:58 Dose: 1.25 mg Lidocaine/Prilocaine (Lidocaine-Prilocaine Cr 2.5-2.5% 5 Gm Tube) 1 applic TOPICAL ONCE PRN PRN Reason: Dialysis Stop: 04/27/24 17:44 Last Admin: 05/05/23 08:57 Dose: 1 applic Methylprednisolone Sodium Succinate (Methylprednisolone Sod Succ 40 Mg/Ml Vial) 40 mg IV-PUSH Q8HR [facility] Stop: 05/04/24 13:59 Last Admin: 05/07/23 05:05 Dose: 40 mg Metoprolol Tartrate (Metoprolol Tartrate 25 Mg Tablet) 25 mg PO BID [facility] Stop: 04/27/24 20:59 Last Admin: 04/28/23 21:28 Dose: 25 mg Ondansetron HCl (Ondansetron 4 Mg/2 Ml Vial) 4 mg IV-PUSH Q6H PRN PRN Reason: Nausea And Vomiting Stop: 04/27/24 17:45 Pantoprazole Sodium (Pantoprazole 40 Mg Tablet.) 40 mg PO BID [facility] Stop: 05/05/24 20:59 Last Admin: 05/07/23 08:47 Dose: 40 mg Paricalcitol (Paricalcitol 10 Mcg/2 Ml Vial) 2 mcg IV-PUSH MoFr@11 [facility] Stop: 04/30/24 10:59 Last Admin: 05/05/23 10:30 Dose: 2 mcg Potassium Chloride (Potassium Chloride Er 20 Meq Tab.Er.Prt) 40 meq PO DAILY PRN PRN Reason: Hypokalemia Stop: 04/27/24 17:45 Sildenafil Citrate (Sildenafil Citrate 20 Mg Tablet) 20 mg PO TID [facility] Stop: 04/27/24 21:59 Last Admin: 05/07/23 08:47 [...] 2 years and currently goes to the [facility] twice a week on Monday schedule (2) [...] be at his dialysis unit in [place]. * Patient had PICC line to continue ertapenem 0.5 g daily for ESBL bacteremia. CT scan of the abdomen showed prostatomegaly and PSA is elevated suggestive of prostatitis as a source of E. coli. ID recommend 4 weeks of antibiotics. Documented By: Jessica Macdonald MD 05/07/23 1047 Signed By: <Electronically signed by MD Jessica Macdonald> 05/07/23 1057 [facility] Work Phone: [phone] Consult note Author Alejandro Escalera May 06, 2023 3:39pm Note Date/Time May 06, 2023 3:39pm [facility] [address] [place] [address] Gastroenterology Consult Note Signed Patient: Ruddy Palmer MR#: [id number] : 1985 Acct:[id number] Age/Sex: 37 / M Adm Date: 3 Loc: Room: [address] [place] [address] Type: ADM IN Attending Dr: Ceferino Godinez [...] negative unless noted below or in HPI [facility] Medical History (Updated 05/06/23 @ 15:37 by [...] % (Auto) 95.2 Lymph % (Auto) 3.9 Island % (Auto) 0.7 Eos % (Auto) 0.1 Baso % (Auto) 0.1 Nucleat RBC Rel Count 0.1 Neut # (Auto) 6.5 Lymph # (Auto) 0.3 L Island # (Auto) 0.0 Eos # (Auto) 0.0 [...] Acute Documented By: Alejandro Escalera MD 05/06/23 1580 Signed By: <Electronically signed by MD Alejandro Escalera> 05/06/23 1539 [facility] Work Phone: [phone] Progress note Author Ceferino Godinez May 06, 2023 1:50pm Note Date/Time May 06, 2023 1:50pm [facility] [address] [place] [address] Hospitalist Progress Note Signed Patient: Ruddy Palmer MR#: [id number] : 1985 Acct:[id number] Age/Sex: 37 / M Adm Date: 3 Loc: Room: [address] [place] [address] Type: ADM IN Attending Dr: Ceferino Godinez [...] 10:46 .Q0M PRN Dialysis As Directed Ipratropium Stilwell 0.5 mg 04/29/23 22:00 05/06/23 12:32 Ipratropium Stilwell 0.5 Mg/2.5 Ml Vial.Neb INHALATION 04/28/24 21:59 [...] to take him home however I consulted renal nurse. He had low H&H and occult blood in the stool. I want to get their opinion whether patient will be a candidate for any further scope or we will keep him under observation. If I get clearance from the gastroenterology then he will be able to go home tomorrow. Documented By: Ceferino Godinez MD 05/06/23 8637 Signed By: <Electronically signed by Ceferino Godinez MD> 05/06/23 1354 [facility] Work Phone: 1([phone] 475-163409-02-2023 Progress note Author Jessica Macdonald May 06, 2023 11:12am Note Date/Time May 06, 2023 11:12am [facility] [address] [place] [address] Nephrology Progress Note Signed Patient: Ruddy Palmer MR#: [id number] : 1985 Acct:[id number] Age/Sex: 37 / M Adm Date: 3 Loc: Room: [address] [place] [address] Type: ADM IN Attending Dr: Ceferino Godinez [...] reported that he was seen by the steeler many years ago whenhe was found to have a solitary kidney. Patient currently goes to the [facility] twice a week Monday and Monday schedule. [...] Mg/5 Ml Vial) 62.5 mg IV-PUSH WEEKLY [facility] Stop: 04/30/24 08:59 Last Admin: 05/01/23 12:07 [...] Reason: BLOOD TRANSFUSION Stop: 05/06/23 11:10 Ipratropium Stilwell (Ipratropium Stilwell 0.5 Mg/2.5 Ml Vial.Neb) 0.5 mg INHALATION QID [facility] Stop: 04/28/24 21:59 Last Admin: 05/06/23 07:45 Dose: 0.5 mg Levalbuterol HCl (Levalbuterol Hcl *Nf* 1.25 Mg/3 Ml Vial.Neb) 1.25 mg INHALATION Q4H.[facility]; Protocol Stop: 05/04/24 12:59 Last Admin: 05/06/23 07:45 Dose: 1.25 mg Lidocaine/Prilocaine (Lidocaine-Prilocaine Cr 2.5-2.5% 5 Gm Tube) 1 applic TOPICAL ONCE PRN PRN Reason: Dialysis Stop: 04/27/24 17:44 Last Admin: 05/05/23 08:57 Dose: 1 applic Methylprednisolone Sodium Succinate (Methylprednisolone Sod Succ 40 Mg/Ml Vial) 40 mg IV-PUSH Q8HR [facility] Stop: 05/04/24 13:59 Last Admin: 05/06/23 05:09 Dose: 40 mg Metoprolol Tartrate (Metoprolol Tartrate 25 Mg Tablet) 25 mg PO BID [facility] Stop: 04/27/24 20:59 Last Admin: 04/28/23 21:28 Dose: 25 mg Ondansetron HCl (Ondansetron 4 Mg/2 Ml Vial) 4 mg IV-PUSH Q6H PRN PRN Reason: Nausea And Vomiting Stop: 04/27/24 17:45 Pantoprazole Sodium (Pantoprazole 40 Mg Tablet.) 40 mg PO DAILY [facility] Stop: 04/28/24 08:59 Last Admin: 05/06/23 09:27 Dose: 40 mg Paricalcitol (Paricalcitol 10 Mcg/2 Ml Vial) 2 mcg IV-PUSH MoFr@11 [facility] Stop: 04/30/24 10:59 Last Admin: 05/05/23 10:30 [...] 2 years and currently goes to the [facility] twice a week on Monday schedule (2) [...] be at his dialysis unit in [place]. * Patient had PICC line to continue ertapenem 0.5 g daily for ESBL bacteremia. CT scan of the abdomen showed prostatomegaly and PSA is elevated suggestive of prostatitis as a source of E. coli. ID recommend 4 weeks of antibiotics. Documented By: Jessica Macdonald MD 05/06/231106 Signed By: <Electronically signed by MD Jessica Macdonald> 05/06/23 111 [facility] Work Phone: [phone]) [phone] Progress note Author Kostas Wade May 05, 2023 2:16pm Note Date/Time May 05, 2023 2:16pm [facility] [address] [place] [address] Infect. Disease Progress Note Signed Patient: Ruddy Palmer MR#: [id number] : 1985 Acct:[id number] Age/Sex: 37 / M Adm Date: 3 Loc: Room: [address] [place] [address] Type: ADM IN Attending Dr: Bradford Henriquez [...] 2.5 Mg Tablet) 2.5 mg PO BID [facility] Stop: 04/27/24 20:59 Last Admin: 05/05/23 08:42 Dose: Not Given Bumetanide (Bumetanide 2 Mg Tablet) 2 mg PO SuTuWeThSa@0900 [facility] Stop: 04/28/24 08:59 Last Admin: 05/04/23 08:04 Dose: 2 mg Clonazepam (Clonazepam 0.5 Mg Tablet) 0.5 mg PO TID [facility] Stop: 10/25/23 21:59 Last Admin: 05/05/23 08:42 Dose: Not Given Diltiazem HCl (Diltiazem 30 Mg Tablet) 30 mg PO TID [facility] Stop: 04/27/24 21:59 Last Admin: 05/05/23 08:42 Dose: Not Given Ferric Sodium Gluconate Complex (Sodium Ferric Gluconat/Sucrose 62.5 Mg/5 Ml Vial) 62.5 mg IV-PUSH WEEKLY [facility] Stop: 04/30/24 08:59 Last Admin: 05/01/23 12:07 [...] Reason: BLOOD TRANSFUSION Stop: 05/06/23 11:10 Ipratropium Stilwell (Ipratropium Stilwell 0.5 Mg/2.5 Ml Vial.Neb) 0.5 mg INHALATION QID [facility] Stop: 04/28/24 21:59 Last Admin: 05/05/23 08:27 Dose: 0.5 mg Levalbuterol HCl (Levalbuterol Hcl *Nf* 1.25 Mg/3 Ml Vial.Neb) 1.25 mg INHALATION Q4H.[facility]; Protocol Stop: 05/04/24 12:59 Lidocaine/Prilocaine (Lidocaine-Prilocaine Cr 2.5-2.5% 5 Gm Tube) 1 applic TOPICAL ONCE PRN PRN Reason: Dialysis Stop: 04/27/24 17:44 Last Admin: 05/05/23 08:57 Dose: 1 applic Methylprednisolone Sodium Succinate (Methylprednisolone Sod Succ 40 Mg/Ml Vial) 40 mg IV-PUSH Q8HR [facility] Stop: 05/04/24 13:59 Metoprolol Tartrate (Metoprolol Tartrate 25 Mg Tablet) 25 mg PO BID [facility] Stop: 04/27/24 20:59 Last Admin: 04/28/23 21:28 Dose: 25 mg Ondansetron HCl (Ondansetron 4 Mg/2 Ml Vial) 4 mg IV-PUSH Q6H PRN PRN Reason: Nausea And Vomiting Stop: 04/27/24 17:45 Pantoprazole Sodium (Pantoprazole 40 Mg Tablet.) 40 mg PO DAILY [facility] Stop: 04/28/24 08:59 Last Admin: 05/05/23 08:42 Dose: Not Given Paricalcitol (Paricalcitol 10 Mcg/2 Ml Vial) 2 mcg IV-PUSH MoFr@11 [facility] Stop: 04/30/24 10:59 Last Admin: 05/05/23 10:30 Dose: 2 mcg Potassium Chloride (Potassium Chloride Er 20 Meq Tab.Er.Prt) 40 meq PO DAILY PRN PRN Reason: Hypokalemia Stop: 04/27/24 17:45 Sildenafil Citrate (Sildenafil Citrate 20 Mg Tablet) 20 mg PO TID [facility] Stop: 04/27/24 21:59 Last Admin: 05/05/23 08:42 [...] signed by MD Kostas Wade> 05/05/23 1416 [facility] Work Phone: [phone] 105-368709-01-2023 Progress note Author Bradford Henriquez May 05, 2023 12:45pm Note Date/Time May 05, 2023 12:45pm [facility] [address] [place] [address] Hospitalist Progress Note Signed Patient: Ruddy Palmer MR#: [id number] : 1985 Acct:[id number] Age/Sex: 37 / M Adm Date: 3 Loc: 3T Room: [address] [place] [address] Type: ADM IN Attending Dr: Bradford Henriquez [...] Final 05/01/23-47 Organism 1 Escherichia coli (ESBL) [place] Count >100,000 CFU/ml Repeat blood cultures is [...] 05/06/23 11:10 PROTOCOL PRN BLOOD TRANSFUSION Ipratropium Stilwell 0.5 mg 04/29/23 22:00 05/05/23 08:27 Ipratropium Stilwell 0.5 Mg/2.5 Ml Vial.Neb INHALATION 04/28/24 21:59 0.5 mg QID PENNY Administration Levalbuterol HCl 1.25 mg 05/05/23 13:00 Levalbuterol Hcl *Nf* 1.25 Mg/3 Ml Vial.Neb INHALATION 05/04/24 12:59 Q4H.WA [facility] Protocol Lidocaine/Prilocaine 1 applic 04/28/23 17:45 05/05/23 [...] signed by Bradford Henriquez MD> 05/05/23 1245 [facility] Work Phone: 1(667) 499-912109-01-2023 Progress note Author Jessica [facility] May 05, 2023 11:16am Note Date/Time May 05, 2023 11:16am [facility] [address] [place] [address] Nephrology Progress Note Signed Patient: Ruddy Palmer MR#: [id number] : 1985 Acct:[id number] Age/Sex: 37 / M Adm Date: 3 Loc: Room: [address] [place] [address] Type: ADM IN Attending Dr: Bradford Henriquez [...] reported that he was seen by the steeler many years ago whenhe was found to have a solitary kidney. Patient currently goes to the [facility] twice a week Monday and Monday schedule. [...] 100 Mg/Ml Vial) 400 mg INHALATION BID [facility] Stop: 05/04/24 09:29 Last Admin: 05/05/23 09:34 Dose: Not Given Apixaban (Apixaban 2.5 Mg Tablet) 2.5 mg PO BID [facility] Stop: 04/27/24 20:59 Last Admin: 05/05/23 08:42 Dose: Not Given Bumetanide (Bumetanide 2 Mg Tablet) 2 mg PO SuTuWeThSa@0900 [facility] Stop: 04/28/24 08:59 Last Admin: 05/04/23 08:04 Dose: 2 mg Clonazepam (Clonazepam 0.5 Mg Tablet) 0.5 mg PO TID [facility] Stop: 10/25/23 21:59 Last Admin: 05/05/23 08:42 Dose: Not Given Diltiazem HCl (Diltiazem 30 Mg Tablet) 30 mg PO TID [facility] Stop: 04/27/24 21:59 Last Admin: 05/05/23 08:42 Dose: Not Given Ferric Sodium Gluconate Complex (Sodium Ferric Gluconat/Sucrose 62.5 Mg/5 Ml Vial) 62.5 mg IV-PUSH WEEKLY [facility] Stop: 04/30/24 08:59 Last Admin: 05/01/23 12:07 [...] Reason: BLOOD TRANSFUSION Stop: 05/06/23 11:10 Ipratropium Stilwell (Ipratropium Stilwell 0.5 Mg/2.5 Ml Vial.Neb) 0.5 mg INHALATION QID PENNY Stop: 04/28/24 21:59 Last Admin: 05/05/23 08:27 Dose: 0.5 mg Levalbuterol HCl (Levalbuterol Hcl *Nf* 1.25 Mg/3 Ml Vial.Neb) 1.25 mg INHALATION Q4H.SHABANA [facility]; Protocol Stop: 05/04/24 12:59 Lidocaine/Prilocaine (Lidocaine-Prilocaine Cr 2.5-2.5% 5 Gm Tube) 1 applic TOPICAL ONCE PRN PRN Reason: Dialysis Stop: 04/27/24 17:44 Last Admin: 05/05/23 08:57 Dose: 1 applic Methylprednisolone Sodium Succinate (Methylprednisolone Sod Succ 40 Mg/Ml Vial) 40 mg IV-PUSH Q8HR [facility] Stop: 05/04/24 13:59 Metoprolol Tartrate (Metoprolol Tartrate 25 Mg Tablet) 25 mg PO BID [facility] Stop: 04/27/24 20:59 Last Admin: 04/28/23 21:28 Dose: 25 mg Ondansetron HCl (Ondansetron 4 Mg/2 Ml Vial) 4 mg IV-PUSH Q6H PRN PRN Reason: Nausea And Vomiting Stop: 04/27/24 17:45 Pantoprazole Sodium (Pantoprazole 40 Mg Tablet.Dr) 40 mg PO DAILY [facility] Stop: 04/28/24 08:59 Last Admin: 05/05/23 08:42 Dose: Not Given Paricalcitol (Paricalcitol 10 Mcg/2 Ml Vial) 2 mcg IV-PUSH MoFr@11 [facility] Stop: 04/30/24 10:59 Last Admin: 05/05/23 10:30 Dose: 2 mcg Potassium Chloride (Potassium Chloride Er 20 Meq Tab.Er.Prt) 40 meq PO DAILY PRN PRN Reason: Hypokalemia Stop: 04/27/24 17:45 Sildenafil Citrate (Sildenafil Citrate 20 Mg Tablet) 20 mg PO TID [facility] Stop: 04/27/24 21:59 Last Admin: 05/05/23 08:42 [...] 2 years and currently goes to the [facility] twice a week on Monday schedule (2) [...] signed by MD Jessica Macdonald> 05/05/23 1116 [facility] Work Phone: [phone] 197-988608-31-2023 Progress note Author Jessica Macdonald May 04, 2023 12:22pm Note Date/Time May 04, 2023 12 :22pm [facility] [address] [place] [address] Nephrology Progress Note Signed Patient: Ruddy Palmer MR#: [id number] : 1985 Acct:[id number] Age/Sex: 37 / M Adm Date: 3 Loc: Room: [address] [place] [address] Type: ADM IN Attending Dr: Bradford Henriquez [...] reported that he was seen by the steeler many years ago whenhe was found to have a solitary kidney. Patient currently goes to the [facility] twice a week Monday and Monday schedule. [...] 2.5 Mg Tablet) 2.5 mg PO BID [facility] Stop: 04/27/24 20:59 Last Admin: 05/04/23 08:04 [...] PRN Reason: Dialysis Stop: 04/30/24 10:46 Ipratropium Stilwell (Ipratropium Stilwell 0.5 Mg/2.5 Ml Vial.Neb) 0.5 mg INHALATION QID [facility] Stop: 04/28/24 21:59 Last Admin: 05/04/23 09:09 Dose: 0.5 mg Levalbuterol HCl (Levalbuterol Hcl *Nf* 1.25 Mg/3 Ml Vial.Neb) 1.25 mg INHALATION QID [facility]; Protocol Stop: 04/28/24 21:59 Last Admin: 05/04/23 09:09 Dose: 1.25 mg Lidocaine/Prilocaine (Lidocaine-Prilocaine Cr 2.5-2.5% 5 Gm Tube) 1 applic TOPICAL ONCE PRN PRN Reason: Dialysis Stop: 04/27/24 17:44 Last Admin: 05/01/23 08:34 Dose: 1 applic Metoprolol Tartrate (Metoprolol Tartrate 25 Mg Tablet) 25 mg PO BID [facility] Stop: 04/27/24 20:59 Last Admin: 04/28/23 21:28 Dose: 25 mg Ondansetron HCl (Ondansetron 4 Mg/2 Ml Vial) 4 mg IV-PUSH Q6H PRN PRN Reason: Nausea And Vomiting Stop: 04/27/24 17:45 Pantoprazole Sodium (Pantoprazole 40 Mg Tablet.Dr) 40 mg PO DAILY [facility] Stop: 04/28/24 08:59 Last Admin: 05/04/23 08:04 Dose: 40 mg Paricalcitol (Paricalcitol 10 Mcg/2 Ml Vial) 2 mcg IV-PUSH MoFr@11 [facility] Stop: 04/30/24 10:59 Last Admin: 05/01/23 12:06 Dose: 2 mcg Potassium Chloride (Potassium Chloride Er 20 Meq Tab.Er.Prt) 40 meq PO DAILY PRN PRN Reason: Hypokalemia Stop: 04/27/24 17:45 Sildenafil Citrate (Sildenafil Citrate 20 Mg Tablet) 20 mg PO TID [facility] Stop: 04/27/24 21:59 Last Admin: 05/04/23 08:04 [...] Rojas Navarrete M.D.05/03/2023 7:23 PM Dictation Location: [place] [address] Any impression(s) listed above is documentation that [...] 2 years and currently goes to the [facility] twice a week on Monday schedule (2) [...] signed by MD Jessica Macdonald> 05/04/23 1222 [facility] Work Phone: [phone] Hospital Discharge instructionsAmbulatory Orders* Initiate Home Health [...] in 3 weeks, see order COntinue pureed [facility] Work Phone: 1(169) 491-372308-31-2023 Progress note Author Bradford Henriquez May 04, 2023 10:50am Note Date/Time May 04, 2023 10 :43am [facility] [address] [place] [address] Hospitalist Progress Note Signed Patient: Ruddy Palmer MR#: [id number] : 1985 Acct:[id number] Age/Sex: 37 / M Adm Date: 3 Loc: Room: [address] [place] [address] Type: ADM IN Attending Dr: Bradford Henriquez [...] Final 05/01/23-846 Organism 1 Escherichia coli (ESBL) [place] Count >100,000 CFU/ml Repeat blood cultures is [...] 10:46 .Q0M PRN Dialysis As Directed Ipratropium Stilwell 0.5 mg 04/29/23 22:00 05/04/23 09:09 Ipratropium Stilwell 0.5 Mg/2.5 Ml Vial.Neb INHALATION 04/28/24 21:59 [...] signed by Bradford Henriquez MD> 05/04/23 1050 [facility] Work Phone: [phone] 460-581508-31-2023 Progress note Author Kostas Wade May 04, 2023 10:46am Note Date/Time May 04, 2023 10 :43am [facility] [address] [place], [place] [id number] Infect. Disease Progress Note Signed Patient: Ruddy Palmer MR#: [id number] : 1985 Acct:[id number] Age/Sex: 37 / M Adm Date: 3 Loc: 3T Room: [address] [place] [address] Type: ADM IN Attending Dr: Bradford Henriquez [...] 0.5 Mg Tablet) 0.5 mg PO TID [facility] Stop: 10/25/23 21:59 Last Admin: 05/04/23 08:04 [...] PRN Reason: Dialysis Stop: 04/30/24 10:46 Ipratropium Stilwell (Ipratropium Stilwell 0.5 Mg/2.5 Ml Vial.Kelsey) 0.5 mg INHALATION QID [facility] Stop: 04/28/24 21:59 Last Admin: 05/04/23 09:09 Dose: 0.5 mg Levalbuterol HCl (Levalbuterol Hcl *Nf* 1.25 Mg/3 Ml Vial.Kelsey) 1.25 mg INHALATION QID [facility]; Protocol Stop: 04/28/24 21:59 Last Admin: 05/04/23 09:09 Dose: 1.25 mg Lidocaine/Prilocaine (Lidocaine-Prilocaine Cr 2.5-2.5% 5 Gm Tube) 1 applic TOPICAL ONCE PRN PRN Reason: Dialysis Stop: 04/27/24 17:44 Last Admin: 05/01/23 08:34 Dose: 1 applic Metoprolol Tartrate (Metoprolol Tartrate 25 Mg Tablet) 25 mg PO BID [facility] Stop: 04/27/24 20:59 Last Admin: 04/28/23 21:28 Dose: 25 mg Ondansetron HCl (Ondansetron 4 Mg/2 Ml Vial) 4 mg IV-PUSH Q6H PRN PRN Reason: Nausea And Vomiting Stop: 04/27/24 17:45 Pantoprazole Sodium (Pantoprazole 40 Mg Tablet.) 40 mg PO DAILY [facility] Stop: 04/28/24 08:59 Last Admin: 05/04/23 08:04 Dose: 40 mg Paricalcitol (Paricalcitol 10 Mcg/2 Ml Vial) 2 mcg IV-PUSH MoFr@11 [facility] Stop: 04/30/24 10:59 Last Admin: 05/01/23 12:06 Dose: 2 mcg Potassium Chloride (Potassium Chloride Er 20 Meq Tab.Er.Prt) 40 meq PO DAILY PRN PRN Reason: Hypokalemia Stop: 04/27/24 17:45 Sildenafil Citrate (Sildenafil Citrate 20 Mg Tablet) 20 mg PO TID [facility] Stop: 04/27/24 21:59 Last Admin: 05/04/23 08:04 [...] signed by MD Kostas Wade> 05/04/23 1046 [facility] Work Phone: [phone] Progress note Author [facility] May 03, 2023 11:54am Note Date/Time May 03, 2023 11 :54am [facility] [address] [place] [address] Nephrology Progress Note Signed Patient: Ruddy Palmer MR#: [id number] : 1985 Acct:[id number] Age/Sex: 37 / M Adm Date: 3 Loc: Room: [address] [place] [address] Type: ADM IN Attending Dr: Bradford Henriquez [...] reported that he was seen by the steeler many years ago whenhe was found to have a solitary kidney. Patient currently goes to the [facility] twice a week Monday and Monday schedule. [...] Mg/5 Ml Vial) 62.5 mg IV-PUSH WEEKLY [facility] Stop: 04/30/24 08:59 Last Admin: 05/01/23 12:07 [...] PRN Reason: Dialysis Stop: 04/30/24 10:46 Ipratropium Stilwell (Ipratropium Stilwell 0.5 Mg/2.5 Ml Vial.Neb) 0.5 mg INHALATION QID [facility] Stop: 04/28/24 21:59 Last Admin: 05/03/23 08:44 Dose: 0.5 mg Levalbuterol HCl (Levalbuterol Hcl *Nf* 1.25 Mg/3 Ml Vial.Neb) 1.25 mg INHALATION QID [facility]; Protocol Stop: 04/28/24 21:59 Last Admin: 05/03/23 08:43 Dose: 1.25 mg Lidocaine/Prilocaine (Lidocaine-Prilocaine Cr 2.5-2.5% 5 Gm Tube) 1 applic TOPICAL ONCE PRN PRN Reason: Dialysis Stop: 04/27/24 17:44 Last Admin: 05/01/23 08:34 Dose: 1 applic Metoprolol Tartrate (Metoprolol Tartrate 25 Mg Tablet) 25 mg PO BID [facility] Stop: 04/27/24 20:59 Last Admin: 04/28/23 21:28 Dose: 25 mg Non-Formulary Medication (Dextromethorphan-Quinidine [Nuedexta]) 1 cap PO Q12H [facility] Stop: 04/27/24 17:44 Ondansetron HCl (Ondansetron 4 Mg/2 Ml Vial) 4 mg IV-PUSH Q6H PRN PRN Reason: Nausea And Vomiting Stop: 04/27/24 17:45 Pantoprazole Sodium (Pantoprazole 40 Mg Tablet.Dr) 40 mg PO DAILY [facility] Stop: 04/28/24 08:59 Last Admin: 05/03/23 08:21 Dose: 40 mg Paricalcitol (Paricalcitol 10 Mcg/2 Ml Vial) 2 mcg IV-PUSH MoFr@11 [facility] Stop: 04/30/24 10:59 Last Admin: 05/01/23 12:06 Dose: 2 mcg Potassium Chloride (Potassium Chloride Er 20 Meq Tab.Er.Prt) 40 meq PO DAILY PRN PRN Reason: Hypokalemia Stop: 04/27/24 17:45 Sildenafil Citrate (Sildenafil Citrate 20 Mg Tablet) 20 mg PO TID [facility] Stop: 04/27/24 21:59 Last Admin: 05/03/23 08:21 [...] 2 years and currently goes to the [facility] twice a week on Monday schedule (2) [...] signed by MD Jessica Macdonald> 05/03/23 115 [facility] Work Phone: [phone]) 876-273808-30-2023 Progress note Author Kostas Wade May 03, 2023 11:27am Note Date/Time May 03, 2023 11 :27am [facility] [address] [place] [address] Infect. Disease Progress Note Signed Patient: Ruddy Plamer MR#: [id number] : 1985 Acct:[id number] Age/Sex: 37 / M Adm Date: 3 Loc: Room: [address] [place] [address] Type: ADM IN Attending Dr: Bradford Henriquez [...] 0.5 Mg Tablet) 0.5 mg PO TID [facility] Stop: 10/25/23 21:59 Last Admin: 05/03/23 08:21 Dose: 0.5 mg Diltiazem HCl (Diltiazem 30 Mg Tablet) 30 mg PO TID [facility] Stop: 04/27/24 21:59 Last Admin: 05/03/23 08:21 Dose: 30 mg Ferric Sodium Gluconate Complex (Sodium Ferric Gluconat/Sucrose 62.5 Mg/5 Ml Vial) 62.5 mg IV-PUSH WEEKLY [facility] Stop: 04/30/24 08:59 Last Admin: 05/01/23 12:07 Dose: 62.5 mg Sodium Chloride (0.9% Sodium Chloride 1,000 Ml) 1,000 mls @ 0 mls/hr MISCELLANE.Q0M PRN PRN Reason: Dialysis Stop: 04/27/24 15:23 Last Infusion: 05/01/23 12:09 Dose: Infused Ertapenem 0.5 gm/ Sodium (Chloride) 100 mls @ 200 mls/hr IV Q24H [facility] Stop: 04/29/24 11:29 Last Infusion: 05/02/23 15:00 Dose: Infused Sodium Chloride (0.9% Sodium Chloride 1,000 Ml) 1,000 mls @ 0 mls/hr MISCELLANE.Q0M PRN PRN Reason: Dialysis Stop: 04/30/24 08:32 Sodium Chloride (0.9% Sodium Chloride 1,000 Ml) 1,000 mls @ 0 mls/hr MISCELLANE.Q0M PRN PRN Reason: Dialysis Stop: 04/30/24 10:46 Ipratropium Stilwell (Ipratropium Stilwell 0.5 Mg/2.5 Ml Vial.Neb) 0.5 mg INHALATION QID [facility] Stop: 04/28/24 21:59 Last Admin: 05/03/23 08:44 Dose: 0.5 mg Levalbuterol HCl (Levalbuterol Hcl *Nf* 1.25 Mg/3 Ml Vial.Neb) 1.25 mg INHALATION QID [facility]; Protocol Stop: 04/28/24 21:59 Last Admin: 05/03/23 [...] 40 Mg Tablet.Dr) 40 mg PO DAILY [facility] Stop: 04/28/24 08:59 Last Admin: 05/03/23 08:21 Dose: 40 mg Paricalcitol (Paricalcitol 10 Mcg/2 Ml Vial) 2 mcg IV-PUSH MoFr@11 [facility] Stop: 04/30/24 10:59 Last Admin: 05/01/23 12:06 [...] <Electronically signed by MD Kostas Wade> 05/03/23 [facility] Work Phone: [phone]) [phone] Progress note Author Bradford Henriquez May 03, 2023 10:21am Note Date/Time May 03, 2023 10 :17am [facility] [address] [place] [address] Hospitalist Progress Note Signed Patient: Ruddy Palmer MR#: [id number] : 1985 Acct:[id number] Age/Sex: 37 / M Adm Date: 3 Loc: 3T Room: [address] [place] [address] Type: ADM IN Attending Dr: Bradford Henriquez [...] Final 05/01/23-47 Organism 1 Escherichia coli (ESBL) [place] Count >100,000 CFU/ml Repeat blood cultures is [...] 10:46 .Q0M PRN Dialysis As Directed Ipratropium Stilwell 0.5 mg 04/29/23 22:00 05/03/23 08:44 Ipratropium Stilwell 0.5 Mg/2.5 Ml Vial.Neb INHALATION 04/28/24 21:59 [...] signed by Bradford Henriquez MD> 05/03/23 1021 [facility] Work Phone: [phone]) [phone] Progress note Author Van Bernardo May 02, 2023 2:36pm Note Date/Time May 02, 2023 2: 29pm [facility] [address] [place], [place] [id number] Palliative Care Progress Note Signed Patient: Ruddy Palmer MR#: [id number] : 1985 Acct:[id number] Age/Sex: 37 / M Adm Date: 3 Loc: Room: [address] [place] [address] Type: ADM IN Attending Dr: Bradford Henriquez [...] ER from his dialysis unit?[facility] in [place] because he was febrile and hypotensive. Patient [...] a cognitive level of a 12-month to 83-pxqeq-ifm at baseline. She tells me that Ruddy [...] prefers he discharged to home instead of longterm facility when he is ready for discharge. She says she has plenty of help with caregivers. She says the caregivers help when she is working, and then when she is off work she is Ruddy'sprimary caregiver. She thinks Ruddy would be much more comfortable at home rather than longterm facility for rehab and IV antibiotics. We [...] % (Auto) 73.5 Lymph % (Auto) 8.8 Island % (Auto) 11.5 Eos % (Auto) 6.0 Baso % (Auto) 0.2 Nucleat RBC Rel Count 0.1 Neut # (Auto) 8.1 H Lymph # (Auto) 1.0 Island # (Auto) 1.3 H Eos # (Auto) [...] signed by DO Van Bernardo> 05/02/23 1436 [facility] Work Phone: 1(454) 528-462108-29-2023 Progress note Author Jessica Macdonald May 02, 2023 2:01pm Note Date/Time May 02, 2023 2: 01pm [facility] [address] [place] [address] Nephrology Progress Note Signed Patient: Ruddy Palmer MR#: [id number] : 1985 Acct:[id number] Age/Sex: 37 / M Adm Date: 3 Loc: Room: [address] [place] [address] Type: ADM IN Attending Dr: Bradford Henriquez [...] reported that he was seen by the steeler many years ago whenhe was found to have a solitary kidney. Patient currently goes to the [facility] twice a week Monday and Monday schedule. [...] 2.5 Mg Tablet) 2.5 mg PO BID [facility] Stop: 04/27/24 20:59 Last Admin: 05/02/23 12:43 Dose: 2.5 mg Bumetanide (Bumetanide 2 Mg Tablet) 2 mg PO SuTuWeThSa@0900 [facility] Stop: 04/28/24 08:59 Last Admin: 05/02/23 09:11 Dose: 2 mg Clonazepam (Clonazepam 0.5 Mg Tablet) 0.5 mg PO TID [facility] Stop: 10/25/23 21:59 Last Admin: 05/02/23 09:11 Dose: 0.5 mg Diltiazem HCl (Diltiazem 30 Mg Tablet) 30 mg PO TID [facility] Stop: 04/27/24 21:59 Last Admin: 05/02/23 09:11 Dose: 30 mg Ferric Sodium Gluconate Complex (Sodium Ferric Gluconat/Sucrose 62.5 Mg/5 Ml Vial) 62.5 mg IV-PUSH WEEKLY [facility] Stop: 04/30/24 08:59 Last Admin: 05/01/23 12:07 Dose: 62.5 mg Sodium Chloride (0.9% Sodium Chloride 1,000 Ml) 1,000 mls @ 0 mls/hr MISCELLANE.Q0M PRN PRN Reason: Dialysis Stop: 04/27/24 15:23 Last Infusion: 05/01/23 12:09 Dose: Infused Ertapenem 0.5 gm/ Sodium (Chloride) 100 mls @ 200 mls/hr IV Q24H [facility] Stop: 04/29/24 11:29 Last Infusion: 05/01/23 16:30 Dose: Infused Sodium Chloride (0.9% Sodium Chloride 1,000 Ml) 1,000 mls @ 0 mls/hr MISCELLANE.Q0M PRN PRN Reason: Dialysis Stop: 04/30/24 08:32 Sodium Chloride (0.9% Sodium Chloride 1,000 Ml) 1,000 mls @ 0 mls/hr MISCELLANE.Q0M PRN PRN Reason: Dialysis Stop: 04/30/24 10:46 Ipratropium Stilwell (Ipratropium Stilwell 0.5 Mg/2.5 Ml Vial.Kelsey) 0.5 mg INHALATION QID [facility] Stop: 04/28/24 21:59 Last Admin: 05/02/23 12:13 Dose: 0.5 mg Levalbuterol HCl (Levalbuterol Hcl *Nf* 1.25 Mg/3 Ml Vial.Kelsey) 1.25 mg INHALATION QID [facility]; Protocol Stop: 04/28/24 21:59 Last Admin: 05/02/23 12:13 Dose: 1.25 mg Lidocaine/Prilocaine (Lidocaine-Prilocaine Cr 2.5-2.5% 5 Gm Tube) 1 applic TOPICAL ONCE PRN PRN Reason: Dialysis Stop: 04/27/24 17:44 Last Admin: 05/01/23 08:34 Dose: 1 applic Metoprolol Tartrate (Metoprolol Tartrate 25 Mg Tablet) 25 mg PO BID [facility] Stop: 04/27/24 20:59 Last Admin: 04/28/23 21:28 Dose: 25 mg Non-Formulary Medication (Dextromethorphan-Quinidine [Nuedexta]) 1 cap PO Q12H [facility] Stop: 04/27/24 17:44 Ondansetron HCl (Ondansetron 4 Mg/2 Ml Vial) 4 mg IV-PUSH Q6H PRN PRN Reason: Nausea And Vomiting Stop: 04/27/24 17:45 Pantoprazole Sodium (Pantoprazole 40 Mg Tablet.) 40 mg PO DAILY [facility] Stop: 04/28/24 08:59 Last Admin: 05/02/23 09:11 Dose: 40 mg Paricalcitol (Paricalcitol 10 Mcg/2 Ml Vial) 2 mcg IV-PUSH MoFr@11 [facility] Stop: 04/30/24 10:59 Last Admin: 05/01/23 12:06 Dose: 2 mcg Potassium Chloride (Potassium Chloride Er 20 Meq Tab.Er.Prt) 40 meq PO DAILY PRN PRN Reason: Hypokalemia Stop: 04/27/24 17:45 Sildenafil Citrate (Sildenafil Citrate 20 Mg Tablet) 20 mg PO TID [facility] Stop: 04/27/24 21:59 Last Admin: 05/02/23 09:11 [...] Art Jr., D.OIsidra05/01/2023 3:38 PM Dictation Location: [place] [address] Any impression(s) listed above is documentation that [...] 2 years and currently goes to the [facility] twice a week on Monday schedule (2) [...] home Documented By: Jessica Macdonald MD 05/02/23 3429 Signed By: <Electronically signed by MD Jessica Macdonald> 05/02/23 1400 [facility] Work Phone: 1(624) [phone] Progress note Author Bradford Henriquez May 02, 2023 11:44am Note Date/Time May 02, 2023 11 :42am [facility] [address] [place] [address] Hospitalist Progress Note Signed Patient: Ruddy Palmer MR#: [id number] : 1985 Acct:[id number] Age/Sex: 37 / M Adm Date: 3 Loc: 3T Room: [address] [place] [address] Type: ADM IN Attending Dr: Bradford Henriquez [...] Final 05/01/23-846 Organism 1 Escherichia coli (ESBL) [place] Count >100,000 CFU/ml Repeat blood cultures is [...] 10:46 .Q0M PRN Dialysis As Directed Ipratropium Stilwell 0.5 mg 04/29/23 22:00 05/02/23 08:35 Ipratropium Stilwell 0.5 Mg/2.5 Ml Vial.Neb INHALATION 04/28/24 21:59 [...] signed by Bradford Henriquez MD> 05/02/23 1144 [facility] Work Phone: 1([phone]) 423-777308-29-2023 Progress note Author Kostas Wade May 02, 2023 11:36am Note Date/Time May 02, 2023 11 :36am [facility] [address] [place] [address] Infect. Disease Progress Note Signed Patient: Ruddy Palmer MR#: [id number] : 1985 Acct:[id number] Age/Sex: 37 / M Adm Date: 3 Loc: Room: [address] [place] [address] Type: ADM IN Attending Dr: Bradford Henriquez [...] 100 ml @ 200 mls/hr IV Q24H [facility] Rx#: [id number] Oral 100 / 350 200 / 200 [...] PRN Reason: Dialysis Stop: 04/30/24 10:46 Ipratropium Stilwell (Ipratropium Stilwell 0.5 Mg/2.5 Ml Vial.Neb) 0.5 mg INHALATION QID [facility] Stop: 04/28/24 21:59 Last Admin: 05/02/23 08:35 Dose: 0.5 mg Levalbuterol HCl (Levalbuterol Hcl *Nf* 1.25 Mg/3 Ml Vial.Kelsey) 1.25 mg INHALATION QID [facility]; Protocol Stop: 04/28/24 21:59 Last Admin: 05/02/23 08:35 Dose: 1.25 mg Lidocaine/Prilocaine (Lidocaine-Prilocaine Cr 2.5-2.5% 5 Gm Tube) 1 applic TOPICAL ONCE PRN PRN Reason: Dialysis Stop: 04/27/24 17:44 Last Admin: 05/01/23 08:34 Dose: 1 applic Metoprolol Tartrate (Metoprolol Tartrate 25 Mg Tablet) 25 mg PO BID [facility] Stop: 04/27/24 20:59 Last Admin: 04/28/23 21:28 Dose: 25 mg Non-Formulary Medication (Dextromethorphan-Quinidine [Nuedexta]) 1 cap PO Q12H [facility] Stop: 04/27/24 17:44 Ondansetron HCl (Ondansetron 4 Mg/2 Ml Vial) 4 mg IV-PUSH Q6H PRN PRN Reason: Nausea And Vomiting Stop: 04/27/24 17:45 Pantoprazole Sodium (Pantoprazole 40 Mg Tablet.) 40 mg PO DAILY [facility] Stop: 04/28/24 08:59 Last Admin: 05/02/23 09:11 Dose: 40 mg Paricalcitol (Paricalcitol 10 Mcg/2 Ml Vial) 2 mcg IV-PUSH MoFr@11 [facility] Stop: 04/30/24 10:59 Last Admin: 05/01/23 12:06 Dose: 2 mcg Potassium Chloride (Potassium Chloride Er 20 Meq Tab.Er.Prt) 40 meq PO DAILY PRN PRN Reason: Hypokalemia Stop: 04/27/24 17:45 Sildenafil Citrate (Sildenafil Citrate 20 Mg Tablet) 20 mg PO TID [facility] Stop: 04/27/24 21:59 Last Admin: 05/02/23 09:11 [...] signed by MD Kostas Wade> 05/02/23 113[address] [facility] Work Phone: [phone] 262-701608-28-2023 Consult note Author Van Bernardo May 01, 2023 5:18pm Note Date/Time May 01, 2023 2: 00pm [facility] [address] [place] [address] Palliative Care Consult Note Signed with Juan David Patient: Ruddy Palemr MR#: [id number] : 1985 Acct:[id number] Age/Sex: 37 / M Adm Date: 3 Loc: Room: [address] [place] [address] Type: ADM IN Attending Dr: Bradford Henriquez [...] do not think they want to pursue longterm facility at discharge. But they are hoping [...] [facility] [place] because he was febrile and hypotensive. Patient [...] a cognitive level of a 12-month to [id number] at baseline. She tells me that Ruddy [...] prefers he discharged to home instead of longterm facility when he is ready for discharge. She says she has plenty of help with caregivers. She says the caregivers help when she is working, and then when she is off work she is Ruddy'sprimary caregiver. She thinks Ruddy would be much more comfortable at home rather than longterm facility for rehab and IV antibiotics. We [...] of Systems Unobtainable due to mental condition [facility] Medical History (Updated 05/01/23 @ 14:42 by [...] 2 Mg Tablet) 2 mg PO SuTuWeThSa@0900 [facility] Stop: 04/28/24 08:59 Last Admin: 04/30/23 09:27 Dose: 2 mg Clonazepam (Clonazepam 0.5 Mg Tablet) 0.5 mg PO TID [facility] Stop: 10/25/23 21:59 Last Admin: 05/01/23 08:34 Dose: 0.5 mg Diltiazem HCl (Diltiazem 30 Mg Tablet) 30 mg PO TID [facility] Stop: 04/27/24 21:59 Last Admin: 05/01/23 08:20 Dose: Not Given Ferric Sodium Gluconate Complex (Sodium Ferric Gluconat/Sucrose 62.5 Mg/5 Ml Vial) 62.5 mg IV-PUSH WEEKLY [facility] Stop: 04/30/24 08:59 Last Admin: 05/01/23 12:07 Dose: 62.5 mg Sodium Chloride (0.9% Sodium Chloride 1,000 Ml) 1,000 mls @ 0 mls/hr MISCELLANE.Q0M PRN PRN Reason: Dialysis Stop: 04/27/24 15:23 Last Infusion: 05/01/23 12:09 Dose: Infused Ertapenem 0.5 gm/ Sodium (Chloride) 100 mls @ 200 mls/hr IV Q24H [facility] Stop: 04/29/24 11:29 Last Infusion: 05/01/23 07:00 Dose: Infused Sodium Chloride (0.9% Sodium Chloride 1,000 Ml) 1,000 mls @ 0 mls/hr MISCELLANE.Q0M PRN PRN Reason: Dialysis Stop: 04/30/24 08:32 Sodium Chloride (0.9% Sodium Chloride 1,000 Ml) 1,000 mls @ 0 mls/hr MISCELLANE.Q0M PRN PRN Reason: Dialysis Stop: 04/30/24 10:46 Ipratropium Stilwell (Ipratropium Stilwell 0.5 Mg/2.5 Ml Vial.Neb) 0.5 mg INHALATION QID [facility] Stop: 04/28/24 21:59 Last Admin: 05/01/23 07:21 Dose: 0.5 mg Levalbuterol HCl (Levalbuterol Hcl *Nf* 1.25 Mg/3 Ml Vial.Neb) 1.25 mg INHALATION QID [facility]; Protocol Stop: 04/28/24 21:59 Last Admin: 05/01/23 [...] 13:23 Lymph % (Auto) N/A 04/28/23 13:23 Island % (Auto) N/A 04/28/23 13:23 Eos % (Auto) N/A 04/28/23 13:23 Baso % (Auto) N/A 04/28/23 13:23 Nucleat RBC Rel Count N/A 04/28/23 13:23 Neut # (Auto) N/A 04/28/23 13:23 Lymph # (Auto) N/A 04/28/23 13:23 Island # (Auto) N/A 04/28/23 13:23 Eos # [...] 1.33 uIU/mL (0.45-5.33) 04/28/23 13:23 Urine Color [place] (Yellow) A 04/29/23 17:00 Urine Appearance Turbid (Clear) A 04/29/23 17:00 Urine pH 6.0 (5.0-9.0) 04/29/23 17:00 Ur Specific [place] 1.015 (1.001-1.030) 04/29/23 17:00 Urine Protein 300 [...] a cognitive level of a 12-month to [id number] at baseline. She tells me that Ruddy [...] prefers he discharged to home instead of longterm facility when he is ready for discharge. She says she has plenty of help with caregivers. She says the caregivers help when she is working, and then when she is off work she is Ruddy'sprimary caregiver. She thinks Ruddy would be much more comfortable at home rather than longterm facility for rehab and IV antibiotics. We [...] signed by DO Van Bernardo> 05/01/23 1656 [facility] Work Phone: 1([phone]) 526-751508-28-2023 Progress note Author Jessica Macdonald May 01, 2023 12:26pm Note Date/Time May 01, 2023 12 :16pm [facility] [address] [place] [address] Nephrology Progress Note Signed Patient: Ruddy Palmer MR#: [id number] : 1985 Acct:[id number] Age/Sex: 37 / M Adm Date: 3 Loc: Room: [address] [place] [address] Type: ADM IN Attending Dr: Bradford Henriquez [...] reported that he was seen by the steeler many years ago whenhe was found to have a solitary kidney. Patient currently goes to the [facility] twice a week Monday and Monday schedule. [...] 2.5 Mg Tablet) 2.5 mg PO BID [facility] Stop: 04/27/24 20:59 Last Admin: 05/01/23 08:34 Dose: 2.5 mg Bumetanide (Bumetanide 2 Mg Tablet) 2 mg PO SuTuWeThSa@0900 [facility] Stop: 04/28/24 08:59 Last Admin: 04/30/23 09:27 Dose: 2 mg Clonazepam (Clonazepam 0.5 Mg Tablet) 0.5 mg PO TID [facility] Stop: 10/25/23 21:59 Last Admin: 05/01/23 08:34 Dose: 0.5 mg Diltiazem HCl (Diltiazem 30 Mg Tablet) 30 mg PO TID [facility] Stop: 04/27/24 21:59 Last Admin: 05/01/23 08:20 Dose: Not Given Ferric Sodium Gluconate Complex (Sodium Ferric Gluconat/Sucrose 62.5 Mg/5 Ml Vial) 62.5 mg IV-PUSH WEEKLY [facility] Stop: 04/30/24 08:59 Last Admin: 05/01/23 12:07 Dose: 62.5 mg Sodium Chloride (0.9% Sodium Chloride 1,000 Ml) 1,000 mls @ 0 mls/hr MISCELLANE.Q0M PRN PRN Reason: Dialysis Stop: 04/27/24 15:23 Last Infusion: 05/01/23 12:09 Dose: Infused Ertapenem 0.5 gm/ Sodium (Chloride) 100 mls @ 200 mls/hr IV Q24H [facility] Stop: 04/29/24 11:29 Last Infusion: 05/01/23 07:00 Dose: Infused Sodium Chloride (0.9% Sodium Chloride 1,000 Ml) 1,000 mls @ 0 mls/hr MISCELLANE.Q0M PRN PRN Reason: Dialysis Stop: 04/30/24 08:32 Sodium Chloride (0.9% Sodium Chloride 1,000 Ml) 1,000 mls @ 0 mls/hr MISCELLANE.Q0M PRN PRN Reason: Dialysis Stop: 04/30/24 10:46 Ipratropium Stilwell (Ipratropium Stilwell 0.5 Mg/2.5 Ml Vial.Neb) 0.5 mg INHALATION QID [facility] Stop: 04/28/24 21:59 Last Admin: 05/01/23 07:21 Dose: 0.5 mg Levalbuterol HCl (Levalbuterol Hcl *Nf* 1.25 Mg/3 Ml Vial.Neb) 1.25 mg INHALATION QID [facility]; Protocol Stop: 04/28/24 21:59 Last Admin: 05/01/23 07:21 Dose: 1.25 mg Lidocaine/Prilocaine (Lidocaine-Prilocaine Cr 2.5-2.5% 5 Gm Tube) 1 applic TOPICAL ONCE PRN PRN Reason: Dialysis Stop: 04/27/24 17:44 Last Admin: 05/01/23 08:34 Dose: 1 applic Metoprolol Tartrate (Metoprolol Tartrate 25 Mg Tablet) 25 mg PO BID [facility] Stop: 04/27/24 20:59 Last Admin: 04/28/23 21:28 Dose: 25 mg Non-Formulary Medication (Dextromethorphan-Quinidine [Nuedexta]) 1 cap PO Q12H [facility] Stop: 04/27/24 17:44 Ondansetron HCl (Ondansetron 4 Mg/2 Ml Vial) 4 mg IV-PUSH Q6H PRN PRN Reason: Nausea And Vomiting Stop: 04/27/24 17:45 Pantoprazole Sodium (Pantoprazole 40 Mg Tablet.Dr) 40 mg PO DAILY [facility] Stop: 04/28/24 08:59 Last Admin: 05/01/23 08:34 Dose: 40 mg Paricalcitol (Paricalcitol 10 Mcg/2 Ml Vial) 2 mcg IV-PUSH MoFr@11 [facility] Stop: 04/30/24 10:59 Last Admin: 05/01/23 12:06 Dose: 2 mcg Potassium Chloride (Potassium Chloride Er 20 Meq Tab.Er.Prt) 40 meq PO DAILY PRN PRN Reason: Hypokalemia Stop: 04/27/24 17:45 Sildenafil Citrate (Sildenafil Citrate 20 Mg Tablet) 20 mg PO TID [facility] Stop: 04/27/24 21:59 Last Admin: 05/01/23 08:20 [...] 2 years and currently goes to the [facility] twice a week on Monday schedule (2) [...] <Electronically signed by MD Jessica Macdonald> 05/01/23 1222 [facility] Work Phone: 1([phone]) 726-732108-28-2023 Consult note Author Kostas Wade May 01, 2023 12:02pm Note Date/Time May 01, 2023 11 :57am [facility] [address] [place] [address] Infect. Disease Consult Note Signed Patient: Ruddy Palmer MR#: [id number] : 1985 Acct:[id number] Age/Sex: 37 / M Adm Date: 3 Loc: Room: [address] [place] [address] Type: ADM IN Attending Dr: Bradford Henriquez [...] have been positive for E. 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 Patient is coughing whenI saw him in dialysis but I do not see a sputum culture obtained CC: Bradford Henriquez MD Review of Systems Review of Systems Unobtainable due to mental condition [facility] Medical History (Updated 04/29/23 @ 10:27 by [...] Mg/5 Ml Vial) 62.5 mg IV-PUSH WEEKLY [facility] Stop: 04/30/24 08:59 Sodium Chloride (0.9% Sodium [...] PRN Reason: Dialysis Stop: 04/30/24 10:46 Ipratropium Stilwell (Ipratropium Stil[place] 0.5 Mg/2.5 Ml Vial.Neb) 0.5 mg INHALATION QID [facility] Stop: 04/28/24 21:59 Last Admin: 05/01/23 07:21 Dose: 0.5 mg Levalbuterol HCl (Levalbuterol Hcl *Nf* 1.25 Mg/3 Ml Vial.Neb) 1.25 mg INHALATION QID [facility]; Protocol Stop: 04/28/24 21:59 Last Admin: 05/01/23 07:21 Dose: 1.25 mg Lidocaine/Prilocaine (Lidocaine-Prilocaine Cr 2.5-2.5% 5 Gm Tube) 1 applic TOPICAL ONCE PRN PRN Reason: Dialysis Stop: 04/27/24 17:44 Last Admin: 05/01/23 08:34 Dose: 1 applic Metoprolol Tartrate (Metoprolol Tartrate 25 Mg Tablet) 25 mg PO BID [facility] Stop: 04/27/24 20:59 Last Admin: 04/28/23 21:28 Dose: 25 mg Non-Formulary Medication (Dextromethorphan-Quinidine [Nuedexta]) 1 cap PO Q12H [facility] Stop: 04/27/24 17:44 Ondansetron HCl (Ondansetron 4 Mg/2 Ml Vial) 4 mg IV-PUSH Q6H PRN PRN Reason: Nausea And Vomiting Stop: 04/27/24 17:45 Pantoprazole Sodium (Pantoprazole 40 Mg Tablet.) 40 mg PO DAILY [facility] Stop: 04/28/24 08:59 Last Admin: 05/01/23 08:34 Dose: 40 mg Paricalcitol (Paricalcitol 10 Mcg/2 Ml Vial) 2 mcg IV-PUSH MoFr@11 [facility] Stop: 04/30/24 10:59 Potassium Chloride (Potassium Chloride Er 20 Meq Tab.Er.Prt) 40 meq PO DAILY PRN PRN Reason: Hypokalemia Stop: 04/27/24 17:45 Sildenafil Citrate (Sildenafil Citrate 20 Mg Tablet) 20 mg PO TID [facility] Stop: 04/27/24 21:59 Last Admin: 05/01/23 08:20 [...] <Electronically signed by MD Kostas Wade> 05/01/23 1209 [facility] Work Phone: [phone] Progress note Author Bradford Henriquez May 01, 2023 8:54am Note Date/Time May 01, 2023 8: 46am [facility] [address] [place] [address] Hospitalist Progress Note Signed Patient: Ruddy Palmer MR#: [id number] : 1985 Acct:[id number] Age/Sex: 37 / M Adm Date: 3 Loc: Room: [address] [place] [address] Type: ADM IN Attending Dr: Bradford Henriquez [...] Final 05/01/23-0847 Organism 1 Escherichia coli (ESBL) [place] Count >100,000 CFU/ml ID is following Repeat [...] 08:32 .Q0M PRN Dialysis As Directed Ipratropium Stilwell 0.5 mg 04/29/23 22:00 05/01/23 07:21 Ipratropium [place]il[place] 0.5 Mg/2.5 Ml Vial.Neb INHALATION 04/28/24 21:59 [...] signed by Bradford Henriquez MD> 05/01/23 0854 [facility] Work Phone: [phone] Progress note Author Sofia Barber April 30, 2023 5:24pm Note Date/Time April 30, 2023 11 :59am [facility] [address] [place] [address] Hospitalist Progress Note Signed Patient: Ruddy Palmer MR#: [id number] : 1985 Acct:[id number] Age/Sex: 37 / M Adm Date: 3 Loc: Room: [address] [place] [address] Type: ADM IN Attending Dr: Sofia Barber [...] Chloride IV 04/29/24 11:29 Q24H [facility] Ipratropium [place] 0.5 mg 04/29/23 22:00 04/30/23 08:10 Ipratropium [place] 0.5 Mg/2.5 Ml Vial.Neb INHALATION 04/28/24 21:59 [...] <Electronically signed by Sofia Barber MD> 04/30/23 1725 [facility] Work Phone: [phone] 300-722608-27-2023 Progress note Author Melina Garcia April 30, 2023 11:00am Note Date/Time April 30, 2023 10 :43am [facility] [address] [place] [address] Nephrology Progress Note Signed Patient: Ruddy Palmer MR#: [id number] : 1985 Acct:[id number] Age/Sex: 37 / M Adm Date: 3 Loc: Room: [address] [place] [address] Type: ADM IN Attending Dr: Sofia Barber [...] reported that he was seen by the steeler many years ago when he was found to have a solitary kidney. Patient currently goes to the [facility] twice a week Monday and Monday schedule. 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 and does not [...] 2.5 Mg Tablet) 2.5 mg PO BID [facility] Stop: 04/27/24 20:59 Last Admin: 04/30/23 09:27 Dose: 2.5 mg Bumetanide (Bumetanide 2 Mg Tablet) 2 mg PO SuTuWeThSa@0900 [facility] Stop: 04/28/24 08:59 Last Admin: 04/30/23 09:27 Dose: 2 mg Clonazepam (Clonazepam 0.5 Mg Tablet) 0.5 mg PO TID [facility] Stop: 10/25/23 21:59 Last Admin: 04/30/23 09:27 Dose: 0.5 mg Diltiazem HCl (Diltiazem 30 Mg Tablet) 30 mg PO TID [facility] Stop: 04/27/24 21:59 Last Admin: 04/30/23 09:27 Dose: 30 mg Sodium Chloride (0.9% Sodium Chloride 1,000 Ml) 1,000 mls @ 0 mls/hr MISCELLANE.Q0M PRN PRN Reason: Dialysis Stop: 04/27/24 15:23 Last Admin: 04/29/23 11:11 Dose: 999 mls/hr Azithromycin (Zithromax) 500 mg in 250 mls @ 250 mls/hr IV Q24H [facility] Last Admin: 04/29/23 13:51 Dose: 250 mls/hr Ceftriaxone Sodium (Rocephin) 2 gm in 50 mls @ 100 mls/hr IV Q24H [facility] Last Admin: 04/29/23 13:49 Dose: 100 mls/hr Ipratropium Stilwell (Ipratropium Stilwell 0.5 Mg/2.5 Ml Vial.Kelsey) 0.5 mg INHALATION QID [facility] Stop: 04/28/24 21:59 Last Admin: 04/30/23 08:10 Dose: 0.5 mg Levalbuterol HCl (Levalbuterol Hcl *Nf* 1.25 Mg/3 Ml Vial.Kelsey) 1.25 mg INHALATION QID [facility]; Protocol Stop: 04/28/24 21:59 Last Admin: 04/30/23 08:09 Dose: 1.25 mg Lidocaine/Prilocaine (Lidocaine-Prilocaine Cr 2.5-2.5% 5 Gm Tube) 1 applic TOPICAL ONCE PRN PRN Reason: Dialysis Stop: 04/27/24 17:44 Metoprolol Tartrate (Metoprolol Tartrate 25 Mg Tablet) 25 mg PO BID [facility] Stop: 04/27/24 20:59 Last Admin: 04/28/23 21:28 Dose: 25 mg Non-Formulary Medication (Dextromethorphan-Quinidine [Nuedexta]) 1 cap PO Q12H [facility] Stop: 04/27/24 17:44 Ondansetron HCl (Ondansetron 4 Mg/2 Ml Vial) 4 mg IV-PUSH Q6H PRN PRN Reason: Nausea And Vomiting Stop: 04/27/24 17:45 Pantoprazole Sodium (Pantoprazole 40 Mg Tablet.) 40 mg PO DAILY [facility] Stop: 04/28/24 08:59 Last Admin: 04/30/23 09:27 [...] 20 Mg Tablet) 20 mg PO TID [facility] Stop: 04/27/24 21:59 Last Admin: 04/30/23 09:27 [...] H Creatinine 4.28 H D Urine Color [place] A Urine Appearance Turbid A Urine pH 6.0 Ur Specific [place] 1.015 Urine Protein 300 H Urine Glucose [...] 2 years and currently goes to the [facility] twice a week on Monday schedule (3) [...] signed by Melina Garcia MD> 04/30/23 1100 [facility] Work Phone: [phone] Progress note Author Sofia Barber April 30, 2023 1:33am Note Date/Time April 29, 2023 4: 14pm [facility] [address] [place] [address] Hospitalist Progress Note Signed Patient: Ruddy Palmer MR#: [id number] : 1985 Acct:[id number] Age/Sex: 37 / M Adm Date: 3 Loc: Room: [address] [place] [address] Type: ADM IN Attending Dr: Sofia Barber [...] E.Coli Bacteremia Still have fever in the contract 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 specialist, leukocytosis is better He was noted with [...] IV 100 mls/hr Q24H [facility] Administration Ipratropium Stilwell 0.5 mg 04/29/23 08:00 04/29/23 15:47 Ipratropium [place] 0.5 Mg/2.5 Ml Vial.Neb INHALATION 04/28/24 07:59 [...] signed by Sofia Barber MD> 04/30/23 0133 [facility] Work Phone: [phone] Consult note Author Melina Garcia April 29, 2023 10:48am Note Date/Time April 29, 2023 10 :05am [facility] [address] [place] [address] Nephrology Consult Note Signed Patient: Ruddy Palmer MR#: [id number] : 1985 Acct:[id number] Age/Sex: 37 / M Adm Date: 3 Loc: Room: [address] [place] [address] Type: ADM IN Attending Dr: Sofia Barber [...] reported that he was seen by the steeler many years ago when he was found to have a solitary kidney. Patient currently goes to the [facility] twice a week Monday and Monday schedule. [...] of Systems Unobtainable due to mental status [facility] Medical History (Updated 04/29/23 @ 10:27 by [...] 2.5 Mg Tablet) 2.5 mg PO BID [facility] Stop: 04/27/24 20:59 Last Admin: 04/28/23 21:28 Dose: 2.5 mg Bumetanide (Bumetanide 2 Mg Tablet) 2 mg PO SuTuWeThSa@0900 [facility] Stop: 04/28/24 08:59 Clonazepam (Clonazepam 0.5 Mg Tablet) 0.5 mg PO TID [facility] Stop: 10/25/23 21:59 Last Admin: 04/29/23 09:13 Dose: Not Given Diltiazem HCl (Diltiazem 30 Mg Tablet) 30 mg PO TID [facility] Stop: 04/27/24 21:59 Last Admin: 04/29/23 09:13 Dose: Not Given Sodium Chloride (0.9% Sodium Chloride 1,000 Ml) 1,000 mls @ 0 mls/hr MISCELLANE.Q0M PRN PRN Reason: Dialysis Stop: 04/27/24 15:23 Last Infusion: 04/28/23 16:46 Dose: Infused Ceftriaxone Sodium (Rocephin) 1 gm in 50 mls @ 100 mls/hr IV Q24H [facility] Azithromycin (Zithromax) 500 mg in 250 mls @ 250 mls/hr IV Q24H [facility] Ipratropium Stilwell (Ipratropium [place]il[place] 0.5 Mg/2.5 Ml Vial.Neb) 0.5 mg INHALATION Q8H [facility] Stop: 04/28/24 07:59 Last Admin: 04/29/23 08:01 Dose: 0.5 mg Levalbuterol HCl (Levalbuterol Hcl *Nf* 1.25 Mg/3 Ml Vial.Kelsey) 1.25 mg INHALATION Q8H [facility]; Protocol Stop: 04/28/24 07:59 Last Admin: 04/29/23 08:01 Dose: 1.25 mg Lidocaine/Prilocaine (Lidocaine-Prilocaine Cr 2.5-2.5% 5 Gm Tube) 1 applic TOPICAL ONCE PRN PRN Reason: Dialysis Stop: 04/27/24 17:44 Metoprolol Tartrate (Metoprolol Tartrate 25 Mg Tablet) 25 mg PO BID [facility] Stop: 04/27/24 20:59 Last Admin: 04/28/23 21:28 Dose: 25 mg Non-Formulary Medication (Dextromethorphan-Quinidine [Nuedexta]) 1 cap PO Q12H [facility] Stop: 04/27/24 17:44 Ondansetron HCl (Ondansetron 4 Mg/2 Ml Vial) 4 mg IV-PUSH Q6H PRN PRN Reason: Nausea And Vomiting Stop: 04/27/24 17:45 Pantoprazole Sodium (Pantoprazole 40 Mg Tablet.) 40 mg PO DAILY [facility] Stop: 04/28/24 08:59 Paricalcitol (Paricalcitol 10 Mcg/2 Ml Vial) 2 mcg IV-PUSH PRN PRN PRN Reason: Dialysis Stop: 05/04/24 09:04 Potassium Chloride (Potassium Chloride Er 20 Meq Tab.Er.Prt) 40 meq PO DAILY PRN PRN Reason: Hypokalemia Stop: 04/27/24 17:45 Sildenafil Citrate (Sildenafil Citrate 20 Mg Tablet) 20 mg PO TID [facility] Stop: 04/27/24 21:59 Last Admin: 04/29/23 09:12 [...] Skin: No rashes , warm to touch 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,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 and 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 [...] Rojas Navarrete M.D.04/28/2023 2:05 PM Dictation Location: [place] [address] Any impression(s) listed above is documentation that [...] 2 years and currently goes to the [facility] twice a week on Monday schedule (3) [...] <Electronically signed by Melina Garcia MD> 04/29/23 1146 [facility] Work Phone: [phone] History and physical note Author Sofia Barber April 29, 2023 1:26am Note Date/Time April 28, 2023 5: 45pm [facility] [address] [place] [address] Hospitalist H&P Signed Patient: Ruddy Palmer MR#: [id number] : 1985 Acct:[id number] Age/Sex: 37 / M Adm Date: 3 Loc: Room: [address] [place] [address] Type: ADM IN Attending Dr: Sofia Barber [...] Discussed with:?the medical team, the patient mother [facility] Medical History (Updated 04/28/23 @ 15:33 by [...] 13:23 Lymph % (Auto) N/A 04/28/23 13:23 Island % (Auto) N/A 04/28/23 13:23 Eos % (Auto) N/A 04/28/23 13:23 Baso % (Auto) N/A 04/28/23 13:23 Nucleat RBC Rel Count N/A 04/28/23 13:23 Neut # (Auto) N/A 04/28/23 13:23 Lymph # (Auto) N/A 04/28/23 13:23 Island # (Auto) N/A 04/28/23 13:23 Eos # [...] 3 Documented By: Sofia Barber MD 04/28/23 2997 Signed By: <Electronically signed by Sofia Barber MD> 04/29/23 0126 [facility] Work Phone: [phone]) 106-927908-25-2023 History and physical note Author Sofia Barber April 29, 2023 1:26am Note Date/Time April 28, 2023 5: 45pm [facility] [address] [place] [address] Hospitalist H&P Signed Patient: Ruddy Palmer MR#: [id number] : 1985 Acct:[id number] Age/Sex: 37 / M Adm Date: 3 Loc: Room: [address] [place] [address] Type: ADM IN Attending Dr: Sofia Barber [...] Discussed with:?the medical team, the patient mother [facility] Medical History (Updated 04/28/23 @ 15:33 by [...] 13:23 Lymph % (Auto) N/A 04/28/23 13:23 [place] % (Auto) N/A 04/28/23 13:23 Eos % (Auto) N/A 04/28/23 13:23 Baso % (Auto) N/A 04/28/23 13:23 Nucleat RBC Rel Count N/A 04/28/23 13:23 Neut # (Auto) N/A 04/28/23 13:23 Lymph # (Auto) N/A 04/28/23 13:23 [place] # (Auto) N/A 04/28/23 13:23 Eos # [...] 3 Documented By: Sofia Barber MD 04/28/23 8724 Signed By: <Electronically signed by Sofia Barber MD> 04/29/23 0126 [facility] Work Phone: 1(756) 110-154306-01-2023 History of Present illness Narrative* Frida Doan [...] and physical needed. [facility] Work Phone: [phone] Hospital Discharge instructions* Discharge Instructions* Naz Atkins DO - 02/02/2023 4:34 PM EDT May use fistula immediately for dialysis. Take tylenol as needed for pain. Follow up as needed with Dr. Alvarez. [facility] Phone: [phone]) [phone] History of Present illness Narrative* Fabby Vance RN - 10/27/2022 3:17 PM EST Discharged via WC. * Fabby Vance RN - 10/27/2022 3:05 PM EST Assisted with getting dressed. Took water and some pudding. * Fabby Vance RN - 10/27/2022 2:59 PM EST Discharge teaching completed with parents present. * Fabby Vance RN - 10/27/2022 2:41 PM EST Returned to [facility] post procedure at 1429. Family at [...] Leftupper arm prepped appropriately. 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 Patient discharged per wheelchair with family and belongings. * Julianne Reese RN - 08/18/2022 10:54 AM EST Received post procedure to [facility] to room 3. Assessment obtained. Restrictions [...] needs to be completed. [facility] Phone: [phone]) 911-479612-15-2022 Hospital Discharge instructions* Discharge Instructions* Justyn Alvarez MD - 08/18/2022 10:48 AM EST Okay to use the left upper extremity AV graft for dialysis. [facility] Phone: [phone]) [phone] Hospital Discharge instructions* Instructions* Leana Sauceda RN - 02/04/2022 Dialysis can use tunnel cath. Fistula marked [facility] Phone: [phone] History of Present illness Narrative* Leana Sauceda [...] access.. 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 documented in this encounterWe[facility]ather Phone: 1([phone]) 531-381201-18-2019 Consult note Author Rojas No May 19, 2023 2:42pm Note Date/Time May 19, 2023 2:42pm [facility] [address] [place] [address] Vascular Surgery Consult Note Signed Patient: Ruddy Palmer MR#: [id number] : 1985 Acct:[id number] Age/Sex: 37 / M Adm Date: 3 Loc: Room: [address] [place] [address] Type: ADM IN Attending Dr: Rajendra Pierce MD Copies to: MD Rojas Rutledge MD Rafik Massouh, MD~ HPI Consult HPI Reason for consult: Inadequate left arm fistula History of present illness: Mr. Palmer is a 37 year old male with a left upper arm autologous fistula who dialyzes in [facility]. He generally gets intervention for his access in [place]. I was asked to examine his dialysis access today as it is quite pulsatile and the flows by ultrasound are diminished. cc:: CC: Rajendra Pierce MD Data of Consult Consult date: 05/19/2023 Requesting Physician: Rajendra Pierce MD [facility] Medical History A-V fistula LUE Adult hyaline [...] [facility] Code(s): T82.590A - Other mechanical complication of surgically created arteriovenous fistula, initial encounter Status: Acute Documented By: Rojas No MD 05/19/23 144 0 Signed By: <Electronically signed by MD Rojas No> 05/19/23 1442 [facility] Work Phone: Consult note Author Melina Garcia April 29, 2023 10:48am Note Date/Time April 29, 2023 10 :05am [facility] [address] [place] [address] Nephrology Consult Note Signed Patient: Ruddy Palmer MR#: [id number] : 1985 Acct:[id number] Age/Sex: 37 / M Adm Date: 3 Loc: Room: [address] [place] [address] Type: ADM IN Attending Dr: Sofia Barber [...] reported that he was seen by the steeler many years ago when he was found to have a solitary kidney. Patient currently goes to the [facility] twice a week Monday and Monday schedule. [...] of Systems Unobtainable due to mental status [facility] Medical History (Updated 04/29/23 @ 10:27 by [...] 2.5 Mg Tablet) 2.5 mg PO BID [facility] Stop: 04/27/24 20:59 Last Admin: 04/28/23 21:28 Dose: 2.5 mg Bumetanide (Bumetanide 2 Mg Tablet) 2 mg PO SuTuWeThSa@0900 [facility] Stop: 04/28/24 08:59 Clonazepam (Clonazepam 0.5 Mg Tablet) 0.5 mg PO TID [facility] Stop: 10/25/23 21:59 Last Admin: 04/29/23 09:13 Dose: Not Given Diltiazem HCl (Diltiazem 30 Mg Tablet) 30 mg PO TID [facility] Stop: 04/27/24 21:59 Last Admin: 04/29/23 09:13 Dose: Not Given Sodium Chloride (0.9% Sodium Chloride 1,000 Ml) 1,000 mls @ 0 mls/hr MISCELLANE.Q0M PRN PRN Reason: Dialysis Stop: 04/27/24 15:23 Last Infusion: 04/28/23 16:46 Dose: Infused Ceftriaxone Sodium (Rocephin) 1 gm in 50 mls @ 100 mls/hr IV Q24H [facility] Azithromycin (Zithromax) 500 mg in 250 mls @ 250 mls/hr IV Q24H [facility] Ipratropium Stilwell (Ipratropium Stilwell 0.5 Mg/2.5 Ml Vial.Neb) 0.5 mg INHALATION Q8H [facility] Stop: 04/28/24 07:59 Last Admin: 04/29/23 08:01 Dose: 0.5 mg Levalbuterol HCl (Levalbuterol Hcl *Nf* 1.25 Mg/3 Ml Vial.Neb) 1.25 mg INHALATION Q8H [facility]; Protocol Stop: 04/28/24 07:59 Last Admin: 04/29/23 08:01 Dose: 1.25 mg Lidocaine/Prilocaine (Lidocaine-Prilocaine Cr 2.5-2.5% 5 Gm Tube) 1 applic TOPICAL ONCE PRN PRN Reason: Dialysis Stop: 04/27/24 17:44 Metoprolol Tartrate (Metoprolol Tartrate 25 Mg Tablet) 25 mg PO BID [facility] Stop: 04/27/24 20:59 Last Admin: 04/28/23 21:28 Dose: 25 mg Non-Formulary Medication (Dextromethorphan-Quinidine [Nuedexta]) 1 cap PO Q12H [facility] Stop: 04/27/24 17:44 Ondansetron HCl (Ondansetron 4 Mg/2 Ml Vial) 4 mg IV-PUSH Q6H PRN PRN Reason: Nausea And Vomiting Stop: 04/27/24 17:45 Pantoprazole Sodium (Pantoprazole 40 Mg Tablet.Dr) 40 mg PO DAILY [facility] Stop: 04/28/24 08:59 Paricalcitol (Paricalcitol 10 Mcg/2 Ml Vial) 2 mcg IV-PUSH PRN PRN PRN Reason: Dialysis Stop: 05/04/24 09:04 Potassium Chloride (Potassium Chloride Er 20 Meq Tab.Er.Prt) 40 meq PO DAILY PRN PRN Reason: Hypokalemia Stop: 04/27/24 17:45 Sildenafil Citrate (Sildenafil Citrate 20 Mg Tablet) 20 mg PO TID [facility] Stop: 04/27/24 21:59 Last Admin: 04/29/23 09:12 [...] Skin: No rashes , warm to touch 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 Disease Consult Note Signed Patient: Ruddy Palmer MR#: [id number] : 1985 Acct:[id number] Age/Sex: 37 / M Adm Date: 3 Loc: Room: [address] [place] [address] Type: ADM IN Attending Dr: Bradford Henriquez [...] have been positive for E. 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 Patient is coughing whenI saw him [...] 2.5 Mg Tablet) 2.5 mg PO BID [facility] Stop: 04/27/24 20:59 Last Admin: 05/01/23 08:34 Dose: 2.5 mg Bumetanide (Bumetanide 2 Mg Tablet) 2 mg PO SuTuWeThSa@0900 [facility] Stop: 04/28/24 08:59 Last Admin: 04/30/23 09:27 Dose: 2 mg Clonazepam (Clonazepam 0.5 Mg Tablet) 0.5 mg PO TID [facility] Stop: 10/25/23 21:59 Last Admin: 05/01/23 08:34 Dose: 0.5 mg Diltiazem HCl (Diltiazem 30 Mg Tablet) 30 mg PO TID [facility] Stop: 04/27/24 21:59 Last Admin: 05/01/23 08:20 Dose: Not Given Ferric Sodium Gluconate Complex (Sodium Ferric Gluconat/Sucrose 62.5 Mg/5 Ml Vial) 62.5 mg IV-PUSH WEEKLY [facility] Stop: 04/30/24 08:59 Sodium Chloride (0.9% Sodium [...] PRN Reason: Dialysis Stop: 04/30/24 10:46 Ipratropium Stilwell (Ipratropium Stilwell 0.5 Mg/2.5 Ml Vial.Neb) 0.5 mg INHALATION QID [facility] Stop: 04/28/24 21:59 Last Admin: 05/01/23 07:21 Dose: 0.5 mg Levalbuterol HCl (Levalbuterol Hcl *Nf* 1.25 Mg/3 Ml Vial.Kelsey) 1.25 mg INHALATION QID [facility]; Protocol Stop: 04/28/24 21:59 Last Admin: 05/01/23 07:21 Dose: 1.25 mg Lidocaine/Prilocaine (Lidocaine-Prilocaine Cr 2.5-2.5% 5 Gm Tube) 1 applic TOPICAL ONCE PRN PRN Reason: Dialysis Stop: 04/27/24 17:44 Last Admin: 05/01/23 08:34 Dose: 1 applic Metoprolol Tartrate (Metoprolol Tartrate 25 Mg Tablet) 25 mg PO BID [facility] Stop: 04/27/24 20:59 Last Admin: 04/28/23 21:28 Dose: 25 mg Non-Formulary Medication (Dextromethorphan-Quinidine [Nuedexta]) 1 cap PO Q12H [facility] Stop: 04/27/24 17:44 Ondansetron HCl (Ondansetron 4 [...] signed by MD Kostas Wade> 05/01/23 1202 [facility] Work Phone: Consult note Author Van Bernardo May 01, 2023 5:18pm Note Date/Time May 01, 2023 2: 00pm [facility] [address] [place] [address] Palliative Care Consult Note Signed with Juan David Patient: Ruddy Palmer MR#: [id number] : 1985 Acct:[id number] Age/Sex: 37 / M Adm Date: 3 Loc: Room: [address] [place] [address] Type: ADM IN Attending Dr: Bradford Henriquez [...] do not think they want to pursue longterm facility at discharge. But they are hoping [...] [facility] [place] because he was febrile and hypotensive. Patient [...] a cognitive level of a 12-month to 64-[id number]-[id number] at baseline. She tells me that Ruddy [...] prefers he discharged to home instead of longterm facility when he is ready for discharge. She says she has plenty of help with caregivers. She says the caregivers help when she is working, and then when she is off work she is Ruddy'sprimary caregiver. She thinks Ruddy would be much more comfortable at home rather than longterm facility for rehab and IV antibiotics. We [...] of Systems Unobtainable due to mental condition [facility] Medical History (Updated 05/01/23 @ 14:42 by [...] 2 Mg Tablet) 2 mg PO SuTuWeThSa@0900 [facility] Stop: 04/28/24 08:59 Last Admin: 04/30/23 09:27 Dose: 2 mg Clonazepam (Clonazepam 0.5 Mg Tablet) 0.5 mg PO TID [facility] Stop: 10/25/23 21:59 Last Admin: 05/01/23 08:34 Dose: 0.5 mg Diltiazem HCl (Diltiazem 30 Mg Tablet) 30 mg PO TID [facility] Stop: 04/27/24 21:59 Last Admin: 05/01/23 08:20 Dose: Not Given Ferric Sodium Gluconate Complex (Sodium Ferric Gluconat/Sucrose 62.5 Mg/5 Ml Vial) 62.5 mg IV-PUSH WEEKLY [facility] Stop: 04/30/24 08:59 Last Admin: 05/01/23 12:07 Dose: 62.5 mg Sodium Chloride (0.9% Sodium Chloride 1,000 Ml) 1,000 mls @ 0 mls/hr MISCELLANE.Q0M PRN PRN Reason: Dialysis Stop: 04/27/24 15:23 Last Infusion: 05/01/23 12:09 Dose: Infused Ertapenem 0.5 gm/ Sodium (Chloride) 100 mls @ 200 mls/hr IV Q24H [facility] Stop: 04/29/24 11:29 Last Infusion: 05/01/23 07:00 Dose: Infused Sodium Chloride (0.9% Sodium Chloride 1,000 Ml) 1,000 mls @ 0 mls/hr MISCELLANE.Q0M PRN PRN Reason: Dialysis Stop: 04/30/24 08:32 Sodium Chloride (0.9% Sodium Chloride 1,000 Ml) 1,000 mls @ 0 mls/hr MISCELLANE.Q0M PRN PRN Reason: Dialysis Stop: 04/30/24 10:46 Ipratropium Stilwell (Ipratropium Stilwell 0.5 Mg/2.5 Ml Vial.Neb) 0.5 mg INHALATION QID [facility] Stop: 04/28/24 21:59 Last Admin: 05/01/23 07:21 Dose: 0.5 mg Levalbuterol HCl (Levalbuterol Hcl *Nf* 1.25 Mg/3 Ml Vial.Neb) 1.25 mg INHALATION QID [facility]; Protocol Stop: 04/28/24 21:59 Last Admin: 05/01/23 [...] 13:23 Lymph % (Auto) N/A 04/28/23 13:23 Island % (Auto) N/A 04/28/23 13:23 Eos % (Auto) N/A 04/28/23 13:23 Baso % (Auto) N/A 04/28/23 13:23 Nucleat RBC Rel Count N/A 04/28/23 13:23 Neut # (Auto) N/A 04/28/23 13:23 Lymph # (Auto) N/A 04/28/23 13:23 Island # (Auto) N/A 04/28/23 13:23 Eos # [...] 1.33 uIU/mL (0.45-5.33) 04/28/23 13:23 Urine Color [place] (Yellow) A 04/29/23 17:00 Urine Appearance Turbid (Clear) A 04/29/23 17:00 Urine pH 6.0 (5.0-9.0) 04/29/23 17:00 Ur Specific [place] 1.015 (1.001-1.030) 04/29/23 17:00 Urine Protein 300 [...] a cognitive level of a 12-month to 82-jrtlw-opc at baseline. She tells me that Ruddy [...] prefers he discharged to home instead of longterm facility when he is ready for discharge. She says she has plenty of help with caregivers. She says the caregivers help when she is working, and then when she is off work she is Ruddy'sprimary caregiver. She thinks Ruddy would be much more comfortable at home rather than longterm facility for rehab and IV antibiotics. 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 [facility] Medical History (Updated 05/18/23 @ 03:13 by [...] respiratory failure ismost likely due to insufficient RAIL ASSEMBLER response for respiratory compensation. We will [...] scenario, the patient's hypoventilation may be more RAIL ASSEMBLER related exacerbated by an acute issue with note of prior ESBL producing E. coli presumably from the urine and concernsfor prostatitis. Patient has been on ertapenem IV. His exam and laboratory values as well as radiographic studies do not suggest an obvious other etiology for worsening of RAIL ASSEMBLER function. Cultures are pending and will [...] signed by MD Juve Blackwell> 05/18/23 1306 [facility] Work Phone: Consult note Author Melina Garcia May 18, 2023 2:43pm Note Date/Time May 18, 2023 2:26pm [facility] [address] [place] [address] Nephrology Consult Note Signed Patient: Ruddy Palmer MR#: [id number] : 1985 Acct:[id number] Age/Sex: 37 / M Adm Date: 3 Loc: Room: [address] [place] [address] Type: ADM IN Attending Dr: Rajendra Pierce [...] 2 years and currently goes to the [facility] twice a week schedule Monday and Monday. [...] of Systems Unobtainable due to mental status [facility] Medical History A-V fistula LUE Adult hyaline [...] 2 Mg Tablet) 2 mg PO SuTuWeThSa@0900 [facility] Stop: 05/17/24 08:59 Last Admin: 05/18/23 08:43 Dose: 2 mg Clonazepam (Clonazepam 0.25 Mg Tablet) 0.25 mg PO TID PRN PRN Reason: anxiety Stop: 11/13/23 22:49 Diltiazem HCl (Diltiazem 30 Mg Tablet) 30 mg PO TID [facility] Stop: 05/16/24 22:49 Last Admin: 05/18/23 13:27 Dose: 30 mg Ertapenem 0.5 gm/ Sodium (Chloride) 100 mls @ 200 mls/hr IV Q24H [facility] Stop: 05/17/24 18:59 Ipratropium Stilwell (Ipratropium Stilwell 0.5 Mg/2.5 Ml Vial.Neb) 0.5 mg INHALATION TID [facility] Stop: 05/16/24 22:59 Last Admin: 05/18/23 13:20 Dose: 0.5 mg Levalbuterol HCl (Levalbuterol Hcl *Nf* 1.25 Mg/3 Ml Vial.Neb) 1.25 mg INHALATION TID [facility]; Protocol Stop: 05/16/24 22:59 Last Admin: 05/18/23 13:20 Dose: 1.25 mg Metoprolol Tartrate (Metoprolol Tartrate 25 Mg Tablet) 25 mg PO BID [facility] Stop: 05/16/24 22:49 Last Admin: 05/18/23 08:43 Dose: 25 mg Non-Formulary Medication (Maltodextrin) 1 each PO DAILY [facility] Stop: 05/17/24 08:59 Non-Formulary Medication (Dextromethorphan-Quinidine [Nuedexta]) 1 cap PO Q12H [facility] Stop: 05/16/24 22:59 Pantoprazole Sodium (Pantoprazole 40 Mg Tablet.) 40 mg PO DAILY [facility] Stop: 05/18/24 08:59 Sildenafil Citrate (Sildenafil Citrate 20 Mg Tablet) 20 mg PO TID [facility] Stop: 05/16/24 22:49 Last Admin: 05/18/23 13:27 Dose: 20 mg Sodium Chloride (Sodium Chloride 0.9 % 10 Ml Syringe) 0 ml IV-PUSH PRN PRN PRN Reason: Flush Stop: 05/16/24 12:27 Last Admin: 05/17/23 19:14 Dose: 10 ml Sodium Chloride (Sodium Chloride 0.9 % 10 Ml Syringe) 0 ml IV-PUSH QSHIFT [facility] Stop: 05/17/24 05:59 Last Admin: 05/18/23 13:27 Dose: 10 ml Sodium Chloride (Sodium Chloride 0.9 % 10 Ml Syringe) 10 ml IV-PUSH Q8H [facility] Stop: 05/17/24 11:59 Last Admin: 05/18/23 13:27 Dose: 10 ml Sodium Chloride (Sodium Chloride 0.9 % 10 Ml Syringe) 0 ml IV-PUSH QSHIFT [facility] Stop: 05/17/24 13:59 Last Admin: 05/18/23 13:27 Dose: 10 ml Vitamin B Complex/Vit C/Folic Acid (Folic Acid/Vit Bcomp,C 1 Tab Tablet) 1 tab PO QHS [facility] Stop: 05/17/24 21:59 Exam Physical Exam Vital [...] Skin: No rashes , 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 Results Labs 05/18/23 04:15 05/18/23 04:15 Labs: 05/17/23 05/17/23 05/18/23 14:04 17:27 04:15 BUN 40 H 44 H Creatinine 5.78 H 6.01 H Albumin 3.5 Urine Color Yellow Urine Appearance Clear Urine pH 6.0 Ur Specific [place] 1.006 Urine Protein Trace H Urine Glucose [...] Rojas No M.D.05/18/2023 1:35 PM Dictation Location: [place] [address] Any impression(s) listed above is documentation that [...] induced MCKENNA. He currently goes to the [facility] twice a week schedule. (3) Dialysis AV [...] signed by Melina Garcia MD> 05/18/23 1443 [facility] Work Phone: Discharge summary Author Rajendra Pierce May 20, 2023 11:43am Note Date/Time May 20, 2023 11:40am [facility] [address] [place] [address] Discharge Summary Signed Patient: Ruddy Palmer MR#: [id number] : 1985 Acct:[id number] Age/Sex: 37 / M Adm Date: 3 Loc: Room: [address] [place] [address]: Rajendra Pierce MD Copies to: [...] ask her primary care doctor to obtain [facility] record entirely to address abnormalities seen on [...] ask your primary care provider to obtain [facility] records entirely to follow up on all of the abnormal physical, laboratory, and imaging findings that I have not addressed. Please return back to the emergency room or seek medical attention if your symptoms worsen or return. Discharging you from [facility] does not mean that your medical care [...] signed by Rajendra Pierce MD> 05/20/23 1143 [facility] Work Phone: Evaluation note* Diagnosis ESRD (end stage renal disease) on dialysis (HCC) End stage renal disease Preop testing Preoperative examination, unspecified documented in this encounter [employer] Phone: evaluation note* Diagnosis Stenosis of AV fistula, initial encounter ([facility]) documented in this encounter [facility] Phone: evaloowaee note* Diagnosis Stenosis of AV fistula, initial encounter ([facility]) documented in this encounter [facility] Phone: evalcxqlyp note* Diagnosis Onset Date Resolution Status Chronic renal failure acute Pneumonia acute [facility] Work Phone: Evaluation note* Diagnosis Onset Date Resolution Status Anemia of renal disease acut e Blood in stool acute Cerebral palsy acute Counseling regarding advance d care planning and goals of care acute E coli bacteremia acute ESRD (end stage renal disease) acute Heme + stool acute Pneumonia acute Prostatitis acute Secondary hyperparathyroidism acute Sepsis associated hypotension acute [facility] Work Phone: Evaluation note* Diagnosis Onset [...] e Cerebral palsy acute Symptomatic anemia acute [facility] Work Phone: Evaluation note* Diagnosis Onset [...] (end stage renal disease) acute Symptomatic anemia [facility] Work Phone: Evaluation note* Diagnosis Onset [...] renal disease) on dialysis acute Weakness acute [facility] Work Phone: Evaluation note* Diagnosis Onset [...] acute Sepsis associated hypotension acute Weakness acute [facility] Work Phone: Evaluation note* Diagnosis Problem with vascular access- Primary Problem with vascular access AV graft thrombosis, initial encounter ([facility]) Malfunction of arteriovenous graft, initial encounter ([facility]) Cognitive developmental delay Cerebral palsy, unspecified type ([facility]) AV graft thrombosis, initial encounter ([facility]) E-coli UTI Urinary tract infection, site not specified Acute on chronic respiratory failure with hypoxia (HCC) RILEY (obstructive sleep apnea) Obstructive sleep apnea (adult) (pediatric) Cognitive developmental delay Cerebral palsy (HCC) Infantile cerebral palsy, unspecified ESRD (end stage renal disease) (HCC) End stage renal disease Anemia, chronic disease Anemia of other chronic disease Malfunction of arteriovenous graft, initial encounter ([facility]) [facility]* Diagnosis History of pulmonary embolism [...] classified Pseudobulbar affect documented in this encounter [facility]* Diagnosis Complication of arteriovenous dialysis fistula- Primary Other complications due to other vascular device, implant, and graft S/P arteriovenous (AV) fistula creation Dialysis AV fistula malfunction (HCC) Mechanical complication of other vascular device, implant, and graft documented in this encounter [facility] HealthHistory and physical note Author Michael Gonzalez May 09, 2023 8:02pm Note Date/Time May 09, 2023 7:01pm [facility] [address] [place] [address] Hospitalist H&P Signed Patient: Ruddy Palmer MR#: [id number] : 1985 Acct:[id number] Age/Sex: 37 / M Adm Date: 3 Loc: Room: [address] [place] [address] Type: ADM IN Attending Dr: Michael Gonzalez [...] % (Auto) 13.3 % (.) 05/09/23 16:23 Island % (Auto) 10.8 % (.) 05/09/23 16:23 Eos % (Auto) 1.2 % (.) 05/09/23 16:23 Baso % (Auto) 0.2 % (.) 05/09/23 16:23 Nucleat RBC Rel Count 0.1 /100 WBC (0-0.5) 05/09/23 16:23 Neut # (Auto) 7.5 x10E3/uL (1.8-7.7) 05/09/23 16:23 Lymph # (Auto) 1.3 x10E3/uL (1.00-4.8) 05/09/23 16:23 Island # (Auto) 1.1 x10E3/uL (0.0-0.8) H 05/09/23 [...] <Electronically signed by Michael Gonzalez MD> 05/09/232001 [facility] Work Phone: History and physical note Author [facility] May 19, 2023 8:09pm Note Date/Time May 17, 2023 10:09pm [facility] [address] [place] [address] Hospitalist H&P Signed Patient: Ruddy Palmer MR#: [id number] : 1985 Acct:[id number] Age/Sex: 37 / M Adm Date: 3 Loc: Room: [address] [place] [address] Type: ADM IN Attending Dr: Rajendra Pierce [...] of Systems Unobtainable due to mental condition [facility] Medical History (Updated 05/17/23 @ 22:22 by [...] parents, mother is caregiver at home, 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 Medications and Allergies Allergies ciprofloxacin [...] % (Auto) 9.9 % (.) 05/17/23 14:04 Island % (Auto) 14.0 % (.) 05/17/23 14:04 Eos % (Auto) 4.0 % (.) 05/17/23 14:04 Baso % (Auto) 0.8 % (.) 05/17/23 14:04 Nucleat RBC Rel Count 0.3 /100 WBC (0-0.5) 05/17/23 14:04 Neut # (Auto) 7.6 x10E3/uL (1.8-7.7) 05/17/23 14:04 Lymph # (Auto) 1.1 x10E3/uL (1.00-4.8) 05/17/23 14:04 Island # (Auto) 1.5 x10E3/uL (0.0-0.8) H 05/17/23 [...] pH 6.0 (5.0-9.0) 05/17/23 17:27 Ur Specific [place] 1.006 (1.001-1.030) 05/17/23 17:27 Urine Protein Trace [...] HD?2 days a week?Mondays and Fridays at [facility], steeler is Dr. Guardado ? Consult nephrology Left [...] Signed By: <Electronically signed by VICTORIA Cardoza> 05/17/231 <Electronically signed by Spencer Dyson MD> 05/19/232008 [facility] Work Phone: History general Narrative - [...] lid x2 2011 Hospitalization History see above [facility] Other Hospital Discharge instructions* Instructions* Chula Curry, [...] incisions Fever over 100.5 [facility] Work [facility]: Hospital Discharge instructionsAmbulatory Orders* Initiate Home Health Time Frame: 1 Day, Location: Determined By Patient Additional Instructions I may not have addressed or treated all of your medical illnesses or the abnormal blood work or imaging studies during this hospitalization. Please ask your primary care provider to obtain [facility] records entirely to follow up on all of the abnormal physical, laboratory, and imaging findings that I have not addressed. Please return back to the emergency room or seek medical attention if your symptoms worsen or return. 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 - Maintain PICC line for IV antibiotics, routine care/flushes per protocol [facility] Work Phone: InstructionsNot on filedocumented in this encounter [employer] note Author Sofia Barber April 30, 2023 1:33am Note Date/Time April 29, 2023 4: 14pm [facility] EN[facility] [address] [place] [address] Hospitalist Progress Note Signed Patient: Ruddy Palmer MR#: [id number] : 1985 Acct:[id number] Age/Sex: 37 / M Adm Date: 3 Loc: Room: [address] [place] [address] Type: ADM IN Attending Dr: Sofia Barber [...] E.Coli Bacteremia Still have fever in the contract management specialist, leukocytosis is better He was noted with [...] IV 100 mls/hr Q24H [facility] Administration Ipratropium Stilwell 0.5 mg 04/29/23 08:00 04/29/23 15:47 Ipratropium [place]il[place] 0.5 Mg/2.5 Ml Vial.Neb INHALATION 04/28/24 07:59 [...] signed by Sofia Barber MD> 04/30/23 0133 [facility] Work Phone: Progress note Author Melina Garcia April 30, 2023 11:00am Note Date/Time April 30, 2023 10 :43am [facility] [address] [place] [address] Nephrology Progress Note Signed Patient: Ruddy Palmer MR#: [id number] : 1985 Acct:[id number] Age/Sex: 37 / M Adm Date: 3 Loc: Room: [address] [place] [address] Type: ADM IN Attending Dr: Sofia Barber [...] reported that he was seen by the steeler many years ago when he was found to have a solitary kidney. Patient currently goes to the [facility] twice a week Monday and Monday schedule. 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 and does not [...] 2.5 Mg Tablet) 2.5 mg PO BID [facility] Stop: 04/27/24 20:59 Last Admin: 04/30/23 09:27 Dose: 2.5 mg Bumetanide (Bumetanide 2 Mg Tablet) 2 mg PO SuTuWeThSa@0900 [facility] Stop: 04/28/24 08:59 Last Admin: 04/30/23 09:27 Dose: 2 mg Clonazepam (Clonazepam 0.5 Mg Tablet) 0.5 mg PO TID [facility] Stop: 10/25/23 21:59 Last Admin: 04/30/23 09:27 Dose: 0.5 mg Diltiazem HCl (Diltiazem 30 Mg Tablet) 30 mg PO TID [facility] Stop: 04/27/24 21:59 Last Admin: 04/30/23 09:27 Dose: 30 mg Sodium Chloride (0.9% Sodium Chloride 1,000 Ml) 1,000 mls @ 0 mls/hr MISCELLANE.Q0M PRN PRN Reason: Dialysis Stop: 04/27/24 15:23 Last Admin: 04/29/23 11:11 Dose: 999 mls/hr Azithromycin (Zithromax) 500 mg in 250 mls @ 250 mls/hr IV Q24H [facility] Last Admin: 04/29/23 13:51 Dose: 250 mls/hr Ceftriaxone Sodium (Rocephin) 2 gm in 50 mls @ 100 mls/hr IV Q24H [facility] Last Admin: 04/29/23 13:49 Dose: 100 mls/hr Ipratropium Stilwell (Ipratropium Stilwell 0.5 Mg/2.5 Ml Vial.Neb) 0.5 mg INHALATION QID [facility] Stop: 04/28/24 21:59 Last Admin: 04/30/23 08:10 Dose: 0.5 mg Levalbuterol HCl (Levalbuterol Hcl *Nf* 1.25 Mg/3 Ml Vial.Neb) 1.25 mg INHALATION QID [facility]; Protocol Stop: 04/28/24 21:59 Last Admin: 04/30/23 08:09 Dose: 1.25 mg Lidocaine/Prilocaine (Lidocaine-Prilocaine Cr 2.5-2.5% 5 Gm Tube) 1 applic TOPICAL ONCE PRN PRN Reason: Dialysis Stop: 04/27/24 17:44 Metoprolol Tartrate (Metoprolol Tartrate 25 Mg Tablet) 25 mg PO BID [facility] Stop: 04/27/24 20:59 Last Admin: 04/28/23 21:28 Dose: 25 mg Non-Formulary Medication (Dextromethorphan-Quinidine [Nuedexta]) 1 cap PO Q12H [facility] Stop: 04/27/24 17:44 Ondansetron HCl (Ondansetron 4 Mg/2 Ml Vial) 4 mg IV-PUSH Q6H PRN PRN Reason: Nausea And Vomiting Stop: 04/27/24 17:45 Pantoprazole Sodium (Pantoprazole 40 Mg Tablet.Dr) 40 mg PO DAILY [facility] Stop: 04/28/24 08:59 Last Admin: 04/30/23 09:27 [...] 20 Mg Tablet) 20 mg PO TID [facility] Stop: 04/27/24 21:59 Last Admin: 04/30/23 09:27 [...] H Creatinine 4.28 H D Urine Color [place] A Urine Appearance Turbid A Urine pH 6.0 Ur Specific [place] 1.015 Urine Protein 300 H Urine Glucose [...] 2 years and currently goes to the [facility] twice a week on Monday schedule (3) [...] signed by Melina Garcia MD> 04/30/23 1100 [facility] Work Phone: Progress note Author Sofia Barber April 30, 2023 5:24pm Note Date/Time April 30, 2023 11 :59am [facility] [address] [place] [address] Hospitalist Progress Note Signed Patient: Ruddy Palmer MR#: [id number] : 1985 Acct:[id number] Age/Sex: 37 / M Adm Date: 3 Loc: Room: [address] [place] [address] Type: ADM IN Attending Dr: Sofia Barber [...] Chloride IV 04/29/24 11:29 Q24H [facility] Ipratropium Stilwell 0.5 mg 04/29/23 22:00 04/30/23 08:10 Ipratropium Stilwell 0.5 Mg/2.5 Ml Vial.Neb INHALATION 04/28/24 21:59 [...] <Electronically signed by Sofia Barber MD> 04/30/23 1854 [facility] Work Phone: Progress note Author Bradford Henriquez May 01, 2023 8:54am Note Date/Time May 01, 2023 8: 46am [facility] EN[facility] [address] [place] [address] Hospitalist Progress Note Signed Patient: Ruddy Palmer MR#: [id number] : 1985 Acct:[id number] Age/Sex: 37 / M Adm Date: 3 Loc: 3T Room: [address] [place] [address] Type: ADM IN Attending Dr: Bradford Henriquez [...] Final 05/01/23 Organism 1 Escherichia coli (ESBL) [place] Count >100,000 CFU/ml ID is following Repeat [...] 08:32 .Q0M PRN Dialysis As Directed Ipratropium Stilwell 0.5 mg 04/29/23 22:00 05/01/23 07:21 Ipratropium Stilwell 0.5 Mg/2.5 Ml Vial.Neb INHALATION 04/28/24 21:59 [...] signed by Bradford Henriquez MD> 05/01/23 0854 [facility] Work Phone: Progress note Author Jessica Macdonald May 01, 2023 12:26pm Note Date/Time May 01, 2023 12 :16pm [facility] EN[facility] [address] [place] [address] Nephrology Progress Note Signed Patient: Ruddy Palmer MR#: [id number] : 1985 Acct:[id number] Age/Sex: 37 / M Adm Date: 3 Loc: Room: 9R0602-5 Type: ADM IN Attending Dr: Bradford Henriquez [...] reported that he was seen by the steeler many years ago whenhe was found to have a solitary kidney. Patient currently goes to the [facility] twice a week Monday and Monday schedule. [...] 2 Mg Tablet) 2 mg PO SuTuWeThSa@0900 [facility] Stop: 04/28/24 08:59 Last Admin: 04/30/23 09:27 Dose: 2 mg Clonazepam (Clonazepam 0.5 Mg Tablet) 0.5 mg PO TID [facility] Stop: 10/25/23 21:59 Last Admin: 05/01/23 08:34 Dose: 0.5 mg Diltiazem HCl (Diltiazem 30 Mg Tablet) 30 mg PO TID [facility] Stop: 04/27/24 21:59 Last Admin: 05/01/23 08:20 Dose: Not Given Ferric Sodium Gluconate Complex (Sodium Ferric Gluconat/Sucrose 62.5 Mg/5 Ml Vial) 62.5 mg IV-PUSH WEEKLY [facility] Stop: 04/30/24 08:59 Last Admin: 05/01/23 12:07 Dose: 62.5 mg Sodium Chloride (0.9% Sodium Chloride 1,000 Ml) 1,000 mls @ 0 mls/hr MISCELLANE.Q0M PRN PRN Reason: Dialysis Stop: 04/27/24 15:23 Last Infusion: 05/01/23 12:09 Dose: Infused Ertapenem 0.5 gm/ Sodium (Chloride) 100 mls @ 200 mls/hr IV Q24H [facility] Stop: 04/29/24 11:29 Last Infusion: 05/01/23 07:00 Dose: Infused Sodium Chloride (0.9% Sodium Chloride 1,000 Ml) 1,000 mls @ 0 mls/hr MISCELLANE.Q0M PRN PRN Reason: Dialysis Stop: 04/30/24 08:32 Sodium Chloride (0.9% Sodium Chloride 1,000 Ml) 1,000 mls @ 0 mls/hr MISCELLANE.Q0M PRN PRN Reason: Dialysis Stop: 04/30/24 10:46 Ipratropium Stilwell (Ipratropium Stilwell 0.5 Mg/2.5 Ml Vial.Neb) 0.5 mg INHALATION QID [facility] Stop: 04/28/24 21:59 Last Admin: 05/01/23 07:21 Dose: 0.5 mg Levalbuterol HCl (Levalbuterol Hcl *Nf* 1.25 Mg/3 Ml Vial.Neb) 1.25 mg INHALATION QID [facility]; Protocol Stop: 04/28/24 21:59 Last Admin: 05/01/23 [...] 2 years and currently goes to the [facility] twice a week on Monday schedule (2) [...] signed by MD Jessica Macdonald> 05/01/23 1226 [facility] Work Phone: Progress note Author Kostas Wade May 02, 2023 11:36am Note Date/Time May 02, 2023 11 :36am [facility] EN[facility] [address] [place] [address] Infect. Disease Progress Note Signed Patient: Ruddy Palmer MR#: [id number] : 1985 Acct:[id number] Age/Sex: 37 / M Adm Date: 3 Loc: Room: [address] [place] [address] Type: ADM IN Attending Dr: Bradford Henriquez [...] 100 ml @ 200 mls/hr IV Q24H [facility] Rx#: [id number] Oral 100 / 350 200 / 200 [...] Mg/5 Ml Vial) 62.5 mg IV-PUSH WEEKLY [facility] Stop: 04/30/24 08:59 Last Admin: 05/01/23 12:07 [...] PRN Reason: Dialysis Stop: 04/30/24 10:46 Ipratropium Stilwell (Ipratropium Stil[place] 0.5 Mg/2.5 Ml Vial.Neb) 0.5 mg INHALATION QID [facility] Stop: 04/28/24 21:59 Last Admin: 05/02/23 08:35 Dose: 0.5 mg Levalbuterol HCl (Levalbuterol Hcl *Nf* 1.25 Mg/3 Ml Vial.Neb) 1.25 mg INHALATION QID [facility]; Protocol Stop: 04/28/24 21:59 Last Admin: 05/02/23 [...] 40 Mg Tablet.Dr) 40 mg PO DAILY [facility] Stop: 04/28/24 08:59 Last Admin: 05/02/23 09:11 Dose: 40 mg Paricalcitol (Paricalcitol 10 Mcg/2 Ml Vial) 2 mcg IV-PUSH MoFr@11 [facility] Stop: 04/30/24 10:59 Last Admin: 05/01/23 12:06 [...] signed by MD Kostas Wade> 05/02/23 1136 [facility] Work Phone: Progress note Author Bradford Henriquez May 02, 2023 11:44am Note Date/Time May 02, 2023 11 :42am [facility] EN[facility] [address] [place] [address] Hospitalist Progress Note Signed Patient: Ruddy Palmer MR#: [id number] : 1985 Acct:[id number] Age/Sex: 37 / M Adm Date: 3 Loc: Room: [address] [place] [address] Type: ADM IN Attending Dr: Bradford Henriquez [...] Final 05/01/23-846 Organism 1 Escherichia coli (ESBL) [place] Count >100,000 CFU/ml Repeat blood cultures is [...] 10:46 .Q0M PRN Dialysis As Directed Ipratropium [place]ilwell 0.5 mg 04/29/23 22:00 05/02/23 08:35 Ipratropium [place] 0.5 Mg/2.5 Ml Vial.Neb INHALATION 04/28/24 21:59 [...] signed by Bradford Henriquez MD> 05/02/23 1144 [facility] Work Phone: Progress note Author Jessica Macdonald May 02, 2023 2:01pm Note Date/Time May 02, 2023 2: 01pm [facility] [address] [place] [address] Nephrology Progress Note Signed Patient: Ruddy Palmer MR#: [id number] : 1985 Acct:[id number] Age/Sex: 37 / M Adm Date: 3 Loc: Room: [address] [place] [address] Type: ADM IN Attending Dr: Bradford Henriquez [...] reported that he was seen by the [facility]er many years ago whenhe was found to have a solitary kidney. Patient currently goes to the [facility] twice a week Monday and Monday schedule. [...] 0.5 Mg Tablet) 0.5 mg PO TID [facility] Stop: 10/25/23 21:59 Last Admin: 05/02/23 09:11 Dose: 0.5 mg Diltiazem HCl (Diltiazem 30 Mg Tablet) 30 mg PO TID [facility] Stop: 04/27/24 21:59 Last Admin: 05/02/23 09:11 Dose: 30 mg Ferric Sodium Gluconate Complex (Sodium Ferric Gluconat/Sucrose 62.5 Mg/5 Ml Vial) 62.5 mg IV-PUSH WEEKLY [facility] Stop: 04/30/24 08:59 Last Admin: 05/01/23 12:07 Dose: 62.5 mg Sodium Chloride (0.9% Sodium Chloride 1,000 Ml) 1,000 mls @ 0 mls/hr MISCELLANE.Q0M PRN PRN Reason: Dialysis Stop: 04/27/24 15:23 Last Infusion: 05/01/23 12:09 Dose: Infused Ertapenem 0.5 gm/ Sodium (Chloride) 100 mls @ 200 mls/hr IV Q24H [facility] Stop: 04/29/24 11:29 Last Infusion: 05/01/23 16:30 Dose: Infused Sodium Chloride (0.9% Sodium Chloride 1,000 Ml) 1,000 mls @ 0 mls/hr MISCELLANE.Q0M PRN PRN Reason: Dialysis Stop: 04/30/24 08:32 Sodium Chloride (0.9% Sodium Chloride 1,000 Ml) 1,000 mls @ 0 mls/hr MISCELLANE.Q0M PRN PRN Reason: Dialysis Stop: 04/30/24 10:46 Ipratropium [place] (Ipratropium [place] 0.5 Mg/2.5 Ml Vial.Neb) 0.5 mg INHALATION QID [facility] Stop: 04/28/24 21:59 Last Admin: 05/02/23 12:13 Dose: 0.5 mg Levalbuterol HCl (Levalbuterol Hcl *Nf* 1.25 Mg/3 Ml Vial.Neb) 1.25 mg INHALATION QID [facility]; Protocol Stop: 04/28/24 21:59 Last Admin: 05/02/23 12:13 Dose: 1.25 mg Lidocaine/Prilocaine (Lidocaine-Prilocaine Cr 2.5-2.5% 5 Gm Tube) 1 applic TOPICAL ONCE PRN PRN Reason: Dialysis Stop: 04/27/24 17:44 Last Admin: 05/01/23 08:34 Dose: 1 applic Metoprolol Tartrate (Metoprolol Tartrate 25 Mg Tablet) 25 mg PO BID [facility] Stop: 04/27/24 20:59 Last Admin: 04/28/23 21:28 Dose: 25 mg Non-Formulary Medication (Dextromethorphan-Quinidine [Nuedexta]) 1 cap PO Q12H [facility] Stop: 04/27/24 17:44 Ondansetron HCl (Ondansetron 4 Mg/2 Ml Vial) 4 mg IV-PUSH Q6H PRN PRN Reason: Nausea And Vomiting Stop: 04/27/24 17:45 Pantoprazole Sodium (Pantoprazole 40 Mg Tablet.) 40 mg PO DAILY [facility] Stop: 04/28/24 08:59 Last Admin: 05/02/23 09:11 Dose: 40 mg Paricalcitol (Paricalcitol 10 Mcg/2 Ml Vial) 2 mcg IV-PUSH MoFr@11 [facility] Stop: 04/30/24 10:59 Last Admin: 05/01/23 12:06 Dose: 2 mcg Potassium Chloride (Potassium Chloride Er 20 Meq Tab.Er.Prt) 40 meq PO DAILY PRN PRN Reason: Hypokalemia Stop: 04/27/24 17:45 Sildenafil Citrate (Sildenafil Citrate 20 Mg Tablet) 20 mg PO TID [facility] Stop: 04/27/24 21:59 Last Admin: 05/02/23 09:11 [...] Art Jr., D.OIsidra05/01/2023 3:38 PM Dictation Location: [place] [address] Any impression(s) listed above is documentation that [...] 1 years and currently goes to the [facility] twice a week on Monday schedule (2) [...] home Documented By: Jessica Macdonald MD 05/02/23 5323 Signed By: <Electronically signed by MD Jessica Macdonald> 05/02/23 1400 [facility] Work Phone: Progress note Author Rajendra Pierce May 18, 2023 11:49am Note Date/Time May 18, 2023 8:41am [facility] EN[facility] [address] [place] [address] Hospitalist Progress Note Signed Patient: Ruddy Palmer MR#: [id number] : 1985 Acct:[id number] Age/Sex: 37 / M Adm Date: 3 Loc: Room: [address] [place] [address] Type: ADM IN Attending Dr: Rajendra Pierce [...] 2 Mg Tablet PO 05/17/24 08:59 SuTuWeThSa@0900 [facility] Clonazepam 0.5 mg 05/17/23 22:50 05/18/23 00:56 Clonazepam 0.5 Mg Tablet PO 11/13/23 22:49 Not Given TID [facility] Diltiazem HCl 30 mg 05/17/23 22:50 05/18/23 00:56 Diltiazem 30 Mg Tablet PO 05/16/24 22:49 30 mg TID [facility] Administration Ertapenem 0.5 gm/ Sodium 100 mls @ 200 mls/hr 05/18/23 19:00 Chloride IV 05/17/24 18:59 Q24H [facility] Ipratropium [place] 0.5 mg 05/18/23 09:00 Ipratropium [place] 0.5 Mg/2.5 Ml Vial.Neb INHALATION 05/16/24 22:59 [...] 1 Tab Tablet PO 05/17/24 21:59 QHS [facility] A&P - Hospitalist Assessment/Plan (1) Acute hypercapnic [...] HD?2 days a week?Mondays and Fridays at [facility], [place] is Dr. Guardado ? Consult nephrology -Left [...] bedside. Documented By: Rajendra Pierce MD 05/18/23 0800 Signed By: <Electronically signed by Rajendra Pierce MD> 05/18/23 1149 <Electronically signed by DO LIZZY Hernandez> 05/18/23 1106 [facility] Work Phone: Progress note Author Rajendra Pierce May 19, 2023 12:32pm Note Date/Time May 19, 2023 8:22am [facility] EN[facility] [address] [place], [place] [id number] Hospitalist Progress Note Signed Patient: Ruddy Palmer MR#: [id number] : 1985 Acct:[id number] Age/Sex: 37 / M Adm Date: 3 Loc: 4 Room: [address] [place] [address] Type: ADM IN Attending Dr: Rajendra Pierce [...] 07:46 .Q0M PRN Dialysis As Directed Ipratropium [place] 0.5 mg 05/18/23 09:00 05/18/23 20:50 Ipratropium [place] 0.5 Mg/2.5 Ml Vial.Neb INHALATION 05/16/24 22:59 [...] HD?2 days a week?Mondays and Fridays at [facility], [place] is Dr. Guardado ? Consult nephrology -Left [...] signed by DO LIZZY Hernandez> 05/19/23 0822 [facility] Work Phone: Progress note Author Melina Garcia May 19, 2023 10:24am Note Date/Time May 19, 2023 10:24am [facility] [address] [place] [address] Nephrology Progress Note Signed Patient: Ruddy Palmer MR#: [id number] : 1985 Acct:[id number] Age/Sex: 37 / M Adm Date: 3 Loc: Room: [address] [place] [address] Type: ADM IN Attending Dr: Rajendra Pierce [...] 2 years and currently goes to the [facility] twice a week schedule Monday and Monday. 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 Objective Intake [...] 2 Mg Tablet) 2 mg PO SuTuWeThSa@0900 [facility] Stop: 05/17/24 08:59 Last Admin: 05/18/23 08:43 Dose: 2 mg Clonazepam (Clonazepam 0.25 Mg Tablet) 0.25 mg PO TID PRN PRN Reason: anxiety Stop: 11/13/23 22:49 Darbepoetin Tatianna (Darbepoetin Tatianna In Polysorbat 60 Mcg/Ml Vial) 60 mcg IV-PUSHFr@0900 [facility] Stop: 05/18/24 08:59 Last Admin: 05/19/23 10:07 Dose: 60 mcg Diltiazem HCl (Diltiazem 30 Mg Tablet) 30 mg PO TID [facility] Stop: 05/16/24 22:49 Last Admin: 05/19/23 08:34 Dose: Not Given Heparin Sodium (Porcine) (Heparin 10,000 Unit/10 Ml Vial) 2,000 unit IV PRN PRN PRN Reason: Dialysis Stop: 05/18/24 07:46 Heparin Sodium (Porcine) (Heparin 10,000 Unit/10 Ml Vial) 1,000 unit IV PRN PRN PRN Reason: Dialysis Stop: 05/18/24 07:46 Ertapenem 0.5 gm/ Sodium (Chloride) 100 mls @ 200 mls/hr IV Q24H [facility] Stop: 05/17/24 18:59 Last Admin: 05/18/23 19:13 Dose: 200 mls/hr Sodium Chloride (0.9% Sodium Chloride 1,000 Ml) 1,000 mls @ 0 mls/hr MISCELLANE.Q0M PRN PRN Reason: Dialysis Stop: 05/18/24 07:46 Last Infusion: 05/19/23 10:09 Dose: Infused Ipratropium [place] (Ipratropium [place] 0.5 Mg/2.5 Ml Vial.Neb) 0.5 mg INHALATION TID [facility] Stop: 05/16/24 22:59 Last Admin: 05/19/23 09:00 Dose: 0.5 mg Levalbuterol HCl (Levalbuterol Hcl *Nf* 1.25 Mg/3 Ml Vial.Neb) 1.25 mg INHALATION TID [facility]; Protocol Stop: 05/16/24 22:59 Last Admin: 05/19/23 [...] 40 Mg Tablet.Dr) 40 mg PO DAILY [facility] Stop: 05/18/24 08:59 Sildenafil Citrate (Sildenafil Citrate 20 Mg Tablet) 20 mg PO TID [facility] Stop: 05/16/24 22:49 Last Admin: 05/19/23 08:34 [...] Rojas No M.D.05/18/2023 1:35 PM Dictation Location: [facility] Any impression(s) listed above is documentation [...] induced MCKENNA. He currently goes to the [facility] twice a week schedule. (3) Dialysis AV [...] signed by Melina Garcia MD> 05/19/23 1024 [facility] Work Phone: Progress note Author Rajendra Pierce May 19, 2023 1:13pm Note Date/Time May 19, 2023 1:07pm [facility] EN[facility] [address] [place] [address] Progress Note Signed Patient: Ruddy Palmer MR#: [id number] : 1985 Acct:[id number] Age/Sex: 37 / M Adm Date: 3 Loc: 4 Room: [address] [place] [address] Type: ADM IN Attending Dr: Rajendra Pierce [...] <Electronically signed by Rajendra Pierce MD> 05/19/231312 [facility] Work Phone: Progress note Author Jami Grimes May 19, 2023 2:40pm Note Date/Time May 19, 2023 2:40pm [facility] EN[facility] [address] [place] [address] Pulmonology Progress Note Signed Patient: Ruddy Palmer MR#: [id number] : 1985 Acct:[id number] Age/Sex: 37 / M Adm Date: 3 Loc: Room: [address] [place] [address] Type: ADM IN Attending Dr: Rajendra Pierce [...] signed by Jami Grimes MD> 05/19/23 1440 [facility] Work Phone: Progress note Author Rajendra Pierce May 20, 2023 10:59am Note Date/Time May 20, 2023 10:59am [facility] EN[facility] [address] [place] [address] Hospitalist Progress Note Signed Patient: Ruddy Palmer MR#: [id number] : 1985 Acct:[id number] Age/Sex: 37 / M Adm Date: 3 Loc: Room: [address] [place] [address] Type: ADM IN Attending Dr: Rajendra Pierce [...] .Q0M PRN Infusion Dialysis As Directed Ipratropium [place] 0.5 mg 05/18/23 09:00 05/20/23 07:33 Ipratropium [place] 0.5 Mg/2.5 Ml Vial.Neb INHALATION 05/16/24 22:59 [...] HD?2 days a week?Mondays and Fridays at [facility], [place] is Dr. Guardado ? Consult nephrology -Left [...] <Electronically signed by Rajendra Pierce MD> 05/20/23 1051 [facility] Work Phone: Progress note Author Rajendra Pierce May 20, 2023 11:45am Note Date/Time May 20, 2023 11:45am [facility] [address] [place] [address] Progress Note Signed Patient: Ruddy Palmer MR#: [id number] : 1985 Acct:[id number] Age/Sex: 37 / M Adm Date: 3 Loc: Room: [address] [place] [address] Type: ADM IN Attending Dr: Rajendra Pierce MD Copies to: ~ Date of Service: 05/20/2023 Progress Narrative Note PROGRESS NOTE Progress Note: I called his mom Fabby and gave her update on his condition, status and tx plan. I answered all other questions. Fabby is appreciative of the care that her sonhad received here at . Documented By: Rajendra Pierce MD 05/20/23 1143 Signed By: <Electronically signed by Rajendra Pierce MD> 05/20/23 1145 [facility] Work Phone: Progress note Author Melina Garcia May 20, 2023 1:40pm Note Date/Time May 20, 2023 1:39pm [facility] EN[facility] [address] [place] [address] Nephrology Progress Note Signed Patient: Ruddy Palmer MR#: [id number] : 1985 Acct:[id number] Age/Sex: 37 / M Adm Date: 3 Loc: Room: [address] [place] [address] Type: ADM IN Attending Dr: Rajendra Pierce [...] 2 years and currently goes to the [facility] twice a week schedule Monday and Monday. 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 Objective Intake [...] 2 Mg Tablet) 2 mg PO SuTuWeThSa@0900 [facility] Stop: 05/17/24 08:59 Last Admin: 05/20/23 09:14 [...] Last Infusion: 05/19/23 10:09 Dose: Infused Ipratropium [place] (Ipratropium [place] 0.5 Mg/2.5 Ml Vial.Neb) 0.5 mg INHALATION TID [facility] Stop: 05/16/24 22:59 Last Admin: 05/20/23 07:33 Dose: 0.5 mg Levalbuterol HCl (Levalbuterol Hcl *Nf* 1.25 Mg/3 Ml Vial.Neb) 1.25 mg INHALATION TID [facility]; Protocol Stop: 05/16/24 22:59 Last Admin: 05/20/23 07:32 Dose: 1.25 mg Metoprolol Tartrate (Metoprolol Tartrate 25 Mg Tablet) 25 mg PO BID [facility] Stop: 05/16/24 22:49 Last Admin: 05/20/23 09:14 Dose: 25 mg Non-Formulary Medication (Maltodextrin) 1 each PO DAILY [facility] Stop: 05/17/24 08:59 Non-Formulary Medication (Dextromethorphan-Quinidine [Nuedexta]) [...] induced MCKENNA. He currently goes to the [facility] twice a week schedule. (3) Dialysis AV [...] signed by Melina Garcia MD> 05/20/23 1340 [facility] Work Phone: [facility] N[facility]* Auth/Cert Specialty Diagnoses / Procedures Referred By Osiris t Referred To Contact Diagnoses End stage renal disease END STAGE RENAL DISEASE Procedures MS AV ANAST,UP ARM CEPHALIC VEIN TRANSPOSIT UPPER EXTREMITY AV FISTULA CREATION VS AV GRAFT Justyn Alvarez MD [address] [address] [address] [place] [address] [facility] [employer] [address] [place] [address] Referral ID Status Reason Start Date Expiration Date Visits Re quested Visits Authorized 1 1 [employer] Phone: Summary Purpose Family History No Family [...] Documents on File Type Date Recorded Patient Softwood Faller Expl anation DNR Physician Order 04/29/2021 3:20 PM DNR Physician Order 04/05/2021 3:14 PM Date Activated Date Inactivated Comments 04/12/2021 10:07 PM 04/25/2021 3:23 PM Date Activated Date Inactivated Comments 03/17/2021 1:14 PM 03/31/2021 8:27 PM Date Activated Date Inactivated Comments 03/17/2021 5:07 AM 03/17/2021 1:14 PM Documents on File Type Date Recorded Patient Softwood Faller Expl anation ACP-Guardianship 05/22/2024 5:12 PM ACP-Guardianship 08/08/2023 3:02 PM ACP-Do Not Resuscitate 08/08/2023 2:53 PM ACP-Do Not Resuscitate 06/16/2023 12:25 PM ACP-Guardianship 06/16/2023 12:25 PM ACP-Guardianship 06/13/2023 10:[address] [facility] PROBATE VISION, LETTER OF GUARDIANSHIP [...] BILATERAL VEIN MAPPING Justyn Alvarez MD [address] [facility] [place] [address] Referral ID Status Reason Start Date Expiration Date V isits Requested Visits Authorized [id number] Pending Review 12/13/2021 12/13/2022 1 1 Specialty Diagnoses / Procedures Referred By Contac t Referred To Contact 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 Cognitive developmental delay Cerebral palsy, unspecified type (HCC) Urvashi Rebollar MD [address] [facility] [address] [place] [address] Referral ID Status Reason Start Date Expiration Date V isits Requested Visits Authorized [id number] Open Specialty Services Required 05/27/2023 05/26/2024 1 1 Question Answer I certify that I, or a nurse practitioner or physician clinic assistant working with me, had an in-person encounter with the patient and the reason for the home care services is documented in the clinical note on: 05/27/2023 Will the referring provider be the attending provider for home health? [facility] of attending provider for home health Denis [...] section and content) DATE CREATED AUTHOR 02/23/2018 [facility] DATE CREATED AUTHOR AUTHOR'S ORGANIZ ATION 01/05/2022 [facility] DATE CREATED AUTHOR AUTHOR'S ORGANIZ ATION 2022 [facility] DATE CREATED AUTHOR AUTHOR'S ORGANIZ ATION 06/07/2023 Mary [facility] DATE CREATED AUTHOR AUTHOR'S ORGANIZ ATION 08/31/2023 [facility] EPIC DATE CREATED AUTHOR AUTHOR'S ORGANIZ ATION 09/17/2024 [facility] Reason for Visit (unrecogniz ed section and content) Specialty Diagnoses / Procedures Referred By Osiris monreal Referred To Contact Radiology Diagnoses ESRD (end stage renal disease) on dialysis (HCC) Preop testing Procedures VL UPPER EXTREMITY BILATERAL VEIN MAPPING Justyn Alvarez MD [address] [address] [address] [place] [address] Referral ID Status Reason Start Date Expiration Date V isits Requested Visits Authorized [id number] Pending Review 12/13/2021 12/13/2022 1 1 Specialty Diagnoses / Procedures Referred By Osiris monreal Referred To Contact Diagnoses Malfunction of arteriovenous dialysis fistula, initial encounter (HCC) Malfunction of arteriovenous dialysis fistula, initial encounter ([facility]) [T82.590A] Procedures MS OFFICE/OUTPT VISIT,PROCEDURE ONLY MS INJECT SINUS TRACT FOR DX W XRAY lue fistulagram Justyn Alvarez MD [address] [address] [address] [place] [address] [employer] [address] [place] [address] Referral ID Status Reason Start Date Expiration Date Visits Re quested Visits Authorized [id number] 1 1 Specialty Diagnoses / Procedures Referred By Osiris monreal Referred To Contact Diagnoses Malfunction of arteriovenous dialysis fistula, initial encounter (HCC) Malfunction of arteriovenous dialysis fistula, initial encounter (HCC) [T82.590A] Procedures MS INTRO CATH DIALYSIS CIRCUIT DX ANGRPH FLUOR S&I lue fistulagram Justyn Alvarez MD [address] [address] [address] [place] [address] [employer] [address] [place] [address] Referral ID Status Reason Start Date Expiration Date Visits Re quested Visits Authorized [id number] 1 1 Specialty Diagnoses / Procedures Referred By Contac t Referred To Contact Diagnoses Malfunction of arteriovenous dialysis fistula, initial encounter (HCC) MALFUNCTIONING FISTULA Procedures CHG ANGIOGRAPHY EXTREMITY UNILATERAL RS&I MS INTRO CATH DIALYSIS CIRCUIT DX ANGRPH FLUOR S&I UPPER EXTREMITY FISTULAGRAM Justyn Alvarez MD [address] [address] [address] [place] [address] [facility] [employer] [address] [place] [address] Referral ID Status Reason Start Date Expiration Date Visits Re quested Visits Authorized [id number] 1 1 Reason Comments Vascular Access Problem Reason Comments Med Refill Specialty Diagnoses / Procedures Referred By Contac t Referred To Contact Diagnoses Malfunction of arteriovenous dialysis fistula, initial encounter (HCC) Malfunction of arteriovenous dialysis fistula, initial encounter (HCC) [T82.590A] Procedures MS INTRO CATH DIALYSIS CIRCUIT DX ANGRPH FLUOR S&I UPPER EXTREMITY FISTULAGRAM Justyn Alvarez MD [address] [place] [address] [facility] [employer] [address] [place] [address] Referral ID Status Reason Start Date Expiration Date Visits Re quested Visits Authorized [id number] 1 1 Care Teams (unrecognized sec tion [...] Active Alejandro Escalera MD Other Provider Active Bottom Loader Relationship Specialty Start Date End Date Denis Melvin MD [address] [place] [address] PCP - General Family Medicine 05/13/21 Bottom Loader Relationship Specialty Start Date End Date Denis Melvin MD [address] [place] [address] PCP - General Family Medicine 05/13/21 Bottom Loader Relationship Specialty Start Date End Date Denis Melvin MD [id number] PCP - General Family Medicine 05/13/21 Bottom Loader Relationship Specialty Start Date End Date Denis Melvin MD [id number] PCP - General Family Medicine 05/13/21 Bottom Loader Relationship Specialty Start Date End Date Denis Melvin MD [id number] PCP - General Family Medicine 05/13/21 Bottom Loader Relationship Specialty Start Date End Date Denis Melvin MD [id number] PCP - General Family Medicine 05/13/21 Team [...] MD Other Provider Active Alondra Rose APRN [facility] Other Provider Active Jami Grimes MD Other Provider Active Juve Blackwell MD Other Provider Active Edna Blanco MD Other Provider Active Jared Horvath , Other Provider Active Kiya Ortega MD Other Provider Active Dre Kowalski MD Other Provider Active Antonio Lopez MD Other Provider Active Broderick Sesay , DO Other Provider Active Rajendra Pierce MD Attending Provider Active Rojas No MD Other Provider Active Bottom Loader Relationship Specialty Start Date End Date Denis Melvin MD [address] [place] [address] PCP - General Family Medicine 05/13/21 Team Status: Inactive Member Role Status Carlene Wade MD Attending Provider Active Bottom Loader Relationship Specialty Start Date End Date Denis Melvin MD PCP - General Family Medicine 06/08/20 Bottom Loader Relationship Specialty Start Date End Date Denis Melvin MD [address] [place] [address] PCP - General Family Medicine 01/31/23 Bottom Loader Relationship Specialty Start Date End Date Denis Melvin MD [address] [place] [address] PCP - General Family Medicine 05/13/21 Ordered [...] Comment: medication, date and expiration date verified [facility] and given to sterile field per [...] er: Cindy Stalin Akbani, MD - Comment: [id number] UNITS THROMBIN VERIFIED WITH SCRUB AND PLACED [...] Pre-Procedure(Cath) 1527 (New Bag - Prov ider: VICOTRIA Doss CRNA)1633 (Anesthesia Volume Adjustment - Provider: [...] BE BASED ON THE PRIMARY CLINICAL RECORDS. [employer] provides no warranty or guarantee of the accuracy or completeness of information in this document.
--- NOTE | 2024-10-19 16:30 | ED.GENADUL1 ---
HPI HPI - General Adult General Chief complaint: Extremity Injury, Upper Stated complaint: SPLINT OVER DIALYSIS PORT Time Seen by Provider: 10/19/24 16:12 Source: family Mode of arrival: Wheelchair Limitations: physical limitation History of Present Illness HPI narrative: Patient is a 39-year-old male with a history of blindness, cerebral palsy, end-stage renal disease on dialysis and oxygen by nasal cannula who returns to the emergency department with his mother. Mother provides the entire history as the patient is nonverbal. Patient was seen in this emergency department last night after a fall that was witnessed by both parents. He developed bruising and swelling of the hand and was evaluated here where he was found to have multiple metacarpal fractures of the left hand. A splint was placed, however the patient receives dialysis on Monday/Monday/Monday and his dialysis fistula is in the left bicep area. His splint was placed past the elbow is a short posterior splint. Parents are concerned that he will have a risk of infection or bleeding based on splint placement and are requesting that the splint be adjusted, they further complained that the splint seems to be poking him in the elbow. Related Data Home Medications ?Medication ?Instructions ?Recorded ?Confirmed apixaban 2.5 mg tablet (Eliquis) 2.5 mg PO Q12H 10/18/24 10/18/24 bumetanide 2 mg tablet 2 mg PO DAILY 10/18/24 10/18/24 calcium acetate(phosphat bind) 667 667 mg PO Q8H 10/18/24 10/18/24 mg capsule clonazepam 0.5 mg tablet 0.5 mg PO Q8H 10/18/24 10/18/24 dextromethorphan 20 mg-quinidine 1 cap PO Q12H 10/18/24 10/18/24 10 mg capsule (Nuedexta) diltiazem HCl 30 mg tablet 30 mg PO Q8H 10/18/24 10/18/24 ipratropium bromide 0.02 % 2.5 ml continuous nebulization Q8H 10/18/24 10/18/24 solution for inhalation levalbuterol HCl 1.25 mg/3 mL 1.25 mg inhalation Q8H 10/18/24 10/18/24 solution for nebulization metoprolol tartrate 25 mg tablet 25 mg PO Q12H 10/18/24 10/18/24 olanzapine 7.5 mg tablet 7.5 mg PO DAILY 10/18/24 10/18/24 omeprazole 20 mg capsule,delayed 20 mg PO Q12H 10/18/24 10/18/24 release sildenafil (pulm.hypertension) 20 20 mg PO Q8H 10/18/24 10/18/24 mg tablet Allergies Allergy/AdvReac Type Severity Reaction Status Date / Time ciprofloxacin (From Cipro) AdvReac Severe Hives Verified 10/19/24 15:55 latex AdvReac Severe Hives Verified 10/19/24 15:55 Opioid HPI Opioid Management Most Recent Opioid Data: Last Pain Scale 8 10/18/24 19:26 10/18/24 Review of Systems ROS Status of ROS unobtainable due to medical condition [facility] Medical History (Updated 10/19/24 @ 16:29 by RHIANNA Cleary) Premature of male Prematurity, weight 500-749 grams, with less than 24 completed weeks of gestation ?P07.02 - Extremely low weight , 500-749 grams (ICD-10) Asthma ?J45.909 - Unspecified asthma, uncomplicated (ICD-10) Hypertension ?I10 - Essential (primary) hypertension (ICD-10) Pulmonary hypertension ?I27.20 - Pulmonary hypertension, unspecified (ICD-10) Cerebral palsy ?G80.9 - Cerebral palsy, unspecified (ICD-10) Exam Narrative Exam Narrative: Gen.: Awake, alert, in no distress; on oxygen by nasal cannula Head: Normocephalic, atraumatic ENT: Moist mucous membranes Respiratory: No respiratory distress Extremities: Left hand with swelling and ecchymosis in various stages of healing. Short posterior splint applied extending to the distal humerus posteriorly. Dialysis graft noted to the left distal humerus Psych: Normal mood and affect Neuro: No focal neuro deficit Skin: Warm, dry, intact Constitutional Vital Signs, click to edit/add: Last Vital Signs Temp 99.5 F 10/19/24 15:52 Pulse 94 H 10/19/24 15:52 Resp 18 10/19/24 15:52 BP 107/66 10/19/24 15:52 Pulse Ox 95 10/19/24 15:52 O2 Del Method Room Air 10/19/24 15:52 Course Vital Signs Vital signs: Vital Signs Temperature 99.5 F 10/19/24 15:52 Pulse Rate 94 H 10/19/24 15:52 Respiratory Rate 18 10/19/24 15:52 Blood Pressure 107/66 10/19/24 15:52 Pulse Oximetry 95 10/19/24 15:52 Oxygen Delivery Method Room Air 10/19/24 15:52 Temperature 99.5 F 10/19/24 15:52 Pulse Rate 94 H 10/19/24 15:52 Respiratory Rate 18 10/19/24 15:52 Blood Pressure 107/66 10/19/24 15:52 Pulse Oximetry 95 10/19/24 15:52 Oxygen Delivery Method Room Air 10/19/24 15:52 Medical Decision Making MDM Narrative Medical decision making narrative: The OCL splint was removed, a shorter volar splint was applied extending from the fingers to the proximal forearm. No extension past the elbow due to dialysis graft. Patient remains neurovascularly intact. Pain medication offered, mother states he does not need any and he is doing well at this time. They will follow-up with orthopedics after his dialysis appointment. Return to the ER if symptoms change or worsen SUPERVISED APC VISIT, PHYSICIAN ATTESTATION: Based on the medical record the care appears appropriate. ? Medical Records Medical records reviewed: Yes I reviewed the patient's medical records Discharge Plan Discharge Chief Complaint: Extremity Injury, Upper Clinical Impression: Aftercare for cast or splint check or change Patient Disposition: Home, Self-Care Time of Disposition Decision: 16:29 Condition: Good Prescriptions / Home Meds: No Action bumetanide 2 mg tablet 2 mg PO DAILY diltiazem HCl 30 mg tablet 30 mg PO Q8H ipratropium bromide 0.02 % solution 2.5 ml continuous nebulization Q8H levalbuterol HCl 1.25 mg/3 mL solution for nebulization 1.25 mg INHALATION Q8H metoprolol tartrate 25 mg tablet 25 mg PO Q12H Nuedexta 20-10 mg capsule 1 cap PO Q12H clonazepam 0.5 mg tablet 0.5 mg PO Q8H omeprazole 20 mg capsule,delayed release(DR/EC) 20 mg PO Q12H sildenafil (pulm.hypertension) 20 mg tablet 20 mg PO Q8H Eliquis 2.5 mg tablet 2.5 mg PO Q12H calcium acetate(phosphat bind) 667 mg capsule 667 mg PO Q8H olanzapine 7.5 mg tablet 7.5 mg PO DAILY Print Language: Swedish Instructions: Hand Fracture (ED) Referrals: Simón Canales MD [Primary Care Provider] - 1 week Vinod Lynn MD [Physician] - As soon as possible
[2024-10-19 16:44] VITALS: BP 112/76; PULSE 90; O2SAT 96
== END 2024-10-19 16:35 | disposition home or self-care (01) ==
PROVIDERS: Emergency Provider Emergency Medicine; PCP Family Medicine
DX: Z46.89 Encounter for fitting and adjustment of other specified devices (principal); G80.9 Cerebral palsy, unspecified; H54.7 Unspecified visual loss; N18.6 End stage renal disease; Z99.2 Dependence on renal dialysis; Z99.81 Dependence on supplemental oxygen; S62.309A Unspecified fracture of unspecified metacarpal bone, initial encounter for closed fracture; W19.XXXA Unspecified fall, initial encounter
CPT/HCPCS: 99283

== ENCOUNTER 2024-10-28 09:06 | Outpatient (OUT) | payer MEDICARE, MEDICAID, SELFPAY ==
--- NOTE | 2024-10-28 | XR_ITS ---
The [address] [address] Patient Name: RIGO REDDY MRN: [id number] date: 1985 Sex: M Assigned Patient Location: Current Patient Location: .[facility] Accession/Order Number: [id number] Exam Date: 10/28/2024 11:30 Report Date: 10/28/2024 11:33 At the request of: NILAY PWOELL MD Procedure: XR hand LT min 3V LEFT HAND - 3 views CLINICAL DATA: Left hand pain following fall. Follow-up metacarpal fractures COMPARISON: 10/18/2024 AP, lateral and oblique views were obtained. There is osteopenia. There is artifact from a volar splint. Fractures are again seen at the bases of the first through fifth metacarpals. There is similar mild displacement. No obvious developing callus formation is noted. There is no new fracture or dislocation. Dorsal soft tissue swelling is present over the hand. XR/XR hand LT min 3V IMPRESSION: STABLE FRACTURES INVOLVING THE PROXIMAL METACARPALS Impression dictated by: Holli Alfonso M.D.10/28/2024 11:33 AM Dictation Location: [facility] Electronically authenticated by: [id number] Y Date: 10/28/2024 11:33
== END 2024-10-28 09:07 | disposition home or self-care (01) ==
LOC: EC 09:07
PROVIDERS: PCP Family Medicine; Visit Provider Orthopaedic Surgery
DX: S62.202D Unspecified fracture of first metacarpal bone, left hand, subsequent encounter for fracture with routine healing (principal); S62.301D Unspecified fracture of second metacarpal bone, left hand, subsequent encounter for fracture with routine healing; S62.303D Unspecified fracture of third metacarpal bone, left hand, subsequent encounter for fracture with routine healing; S62.305D Unspecified fracture of fourth metacarpal bone, left hand, subsequent encounter for fracture with routine healing; S62.307D Unspecified fracture of fifth metacarpal bone, left hand, subsequent encounter for fracture with routine healing
CPT/HCPCS: 73130

== ENCOUNTER 2024-11-04 09:10 | Outpatient (OUT) | payer MEDICARE, MEDICAID, SELFPAY ==
--- NOTE | 2024-11-04 | XR_ITS ---
The [address] [address] Patient Name: RIGO REDDY MRN: [id number] date: 1985 Sex: M Assigned Patient Location: Current Patient Location: Accession/Order Number: [id number] Exam Date: 11/04/2024 16:56 Report Date: 11/04/2024 16:58 At the request of: NILAY POWELL MD Procedure: XR hand LT min 3V LEFT HAND - 3 views REASON FOR EXAM: Follow-up hand fracture COMPARISON: Left hand series 10/28/2024 FINDINGS: Splint material is in place. The patient's known metacarpal fractures are grossly unchanged in alignment with fracture lines less conspicuous suggestive of healing response. No new fractures are seen. XR/XR hand LT min 3V IMPRESSION: HEALING METACARPAL FRACTURES. Impression dictated by: Maurilio Art Jr., DIsidraOIsidra11/04/2024 4:58 PM Dictation Location: [facility] Electronically authenticated by: [id number] Y Date: 11/04/2024 16:58
== END 2024-11-04 09:11 | disposition home or self-care (01) ==
LOC: EC 09:10
PROVIDERS: PCP Family Medicine; Visit Provider Orthopaedic Surgery
DX: S62.202D Unspecified fracture of first metacarpal bone, left hand, subsequent encounter for fracture with routine healing (principal); S62.301D Unspecified fracture of second metacarpal bone, left hand, subsequent encounter for fracture with routine healing; S62.303D Unspecified fracture of third metacarpal bone, left hand, subsequent encounter for fracture with routine healing; S62.307D Unspecified fracture of fifth metacarpal bone, left hand, subsequent encounter for fracture with routine healing; S62.305D Unspecified fracture of fourth metacarpal bone, left hand, subsequent encounter for fracture with routine healing
CPT/HCPCS: 73130

== ENCOUNTER 2024-12-02 09:41 | Outpatient (OUT) | payer MEDICARE, MEDICAID, SELFPAY ==
--- NOTE | 2024-12-02 09:42 | XR_ITS ---
[address] [address] Patient Name: RIGO REDDY MRN: [id number] date: 1985 Sex: M Assigned Patient Location: Current Patient Location: Accession/Order Number: [id number] Exam Date: 12/02/2024 10:13 Report Date: 12/02/2024 10:15 At the request of: NILAY POWELL MD Procedure: XR hand LT min 3V 3 views left hand plain film COMPARISON: 11/04/2024 HISTORY: Follow-up by left hand fractures ACUTE FINDINGS: Stable alignment of metacarpal fractures. Continued interval healing. DEGENERATIVE CHANGE: Moderate SOFT TISSUE FINDINGS: Unremarkable JOINT EFFUSION: None POSTOP CHANGES: None BONY MINERALIZATION: Diffuse osteopenia XR/XR hand LT min 3V IMPRESSION: Healing fractures with stable alignment Impression dictated by: Rojas Navarrete M.D.12/02/2024 10:15 AM Dictation Location: [place] [address] Electronically authenticated by: [id number] Y Date: 12/02/2024 10:15
== END 2024-12-02 09:42 | disposition home or self-care (01) ==
LOC: EC 09:42
PROVIDERS: PCP Family Medicine; Visit Provider Orthopaedic Surgery
DX: S62.202D Unspecified fracture of first metacarpal bone, left hand, subsequent encounter for fracture with routine healing (principal); S62.301D Unspecified fracture of second metacarpal bone, left hand, subsequent encounter for fracture with routine healing; S62.303D Unspecified fracture of third metacarpal bone, left hand, subsequent encounter for fracture with routine healing; S62.305D Unspecified fracture of fourth metacarpal bone, left hand, subsequent encounter for fracture with routine healing; S62.307D Unspecified fracture of fifth metacarpal bone, left hand, subsequent encounter for fracture with routine healing; M85.80 Other specified disorders of bone density and structure, unspecified site
CPT/HCPCS: 73130

== ENCOUNTER 2024-12-09 08:42 | Outpatient (REF) | payer MEDICARE, MEDICAID, SELFPAY ==
[2024-12-09 21:57] LABS: Bilirubin Urine NEGATIVE (NEGATIVE); Blood Urine LARGE (NEGATIVE); Clarity Urine CLEAR (CLEAR); Color Urine LT. YELLOW (YELLOW); Glucose Urine UA NEGATIVE (NEGATIVE); Ketones Urine NEGATIVE (NEGATIVE); Leukocyte Esterase Urine MODERATE (NEGATIVE); Nitrite Urine POSITIVE (NEGATIVE); Protein Urine >=300 mg/dL (NEG/TRACE); Specific Gravity Urine 1.015 (1.005-1.025); Urobilinogen Urine 0.2 EU/dL (0.2-1.0)
[2024-12-09 22:05] LABS: RBC Urine >100 #/HPF (0-2); WBC Urine 75-100 #/HPF (NONE SEEN)
[2024-12-09 22:06] LABS: Bacteria Urine NONE SEEN #/HPF (NONE SEEN); Cast Seen? NONE SEEN #/LPF (NONE SEEN); Crystals Seen? None Seen #/HPF (None Seen); Mucus Urine NONE SEEN (NONE SEEN); Squamous Epithelial Cell Urine NONE SEEN #/LPF (NONE/RARE); Urine Culture Indicated ALREADY ORDERED
== END 2024-12-09 08:43 | disposition home or self-care (01) ==
LOC: LAB 08:42
PROVIDERS: PCP Family Medicine; Visit Provider Family Medicine
DX: R31.9 Hematuria, unspecified (principal)
CPT/HCPCS: 81001; 87086; 96361

== ENCOUNTER 2024-12-30 09:19 | Outpatient (OUT) | payer MEDICARE, MEDICAID, SELFPAY ==
--- NOTE | 2024-12-30 | XR_ITS ---
The [id number] Patient Name: RIGO REDDY MRN: [id number] date: 1985 Sex: M Assigned Patient Location: Current Patient Location: Accession/Order Number: [id number] Exam Date: 12/30/2024 15:27 Report Date: 12/30/2024 15:28 At the request of: NILAY POWELL MD Procedure: XR hand LT min 3V LEFT HAND - 3 views REASON FOR EXAM: Follow-up fifth metacarpal fracture COMPARISON: Left hand 12/02/2024 FINDINGS: Fractures involving the second through fifth metacarpals grossly unchanged alignment with interval sclerosis/callus formation suggestive of healing response. XR/XR hand LT min 3V IMPRESSION: HEALING METACARPAL FRACTURES. Impression dictated by: Maurilio Art Jr., D.O. 12/30/2024 3:28 PM Dictation Location: [place] [address] Electronically authenticated by: [id number] Y Date: 12/30/2024 15:28
== END 2024-12-30 09:20 | disposition home or self-care (01) ==
LOC: EC 09:19
PROVIDERS: PCP Family Medicine; Visit Provider Orthopaedic Surgery
DX: S62.307D Unspecified fracture of fifth metacarpal bone, left hand, subsequent encounter for fracture with routine healing (principal); S62.305D Unspecified fracture of fourth metacarpal bone, left hand, subsequent encounter for fracture with routine healing; S62.303D Unspecified fracture of third metacarpal bone, left hand, subsequent encounter for fracture with routine healing; S62.301D Unspecified fracture of second metacarpal bone, left hand, subsequent encounter for fracture with routine healing; S62.202D Unspecified fracture of first metacarpal bone, left hand, subsequent encounter for fracture with routine healing
CPT/HCPCS: 73130

== ENCOUNTER 2025-01-06 20:59 | Outpatient (REF) | payer MEDICARE, MEDICAID, SELFPAY ==
[2025-01-06 22:23] LABS: Bilirubin Urine NEGATIVE (NEGATIVE); Blood Urine SMALL (NEGATIVE); Clarity Urine CLEAR (CLEAR); Color Urine YELLOW (YELLOW); Glucose Urine UA NEGATIVE (NEGATIVE); Ketones Urine NEGATIVE (NEGATIVE); Leukocyte Esterase Urine LARGE (NEGATIVE); Nitrite Urine NEGATIVE (NEGATIVE); Protein Urine 30 mg/dL (NEG/TRACE); Urobilinogen Urine 0.2 EU/dL (0.2-1.0)
[2025-01-06 22:32] LABS: RBC Urine NONE SEEN #/HPF (0-2); WBC Urine 75-100 #/HPF (NONE SEEN)
[2025-01-06 22:33] LABS: Bacteria Urine LARGE #/HPF (NONE SEEN); Cast Seen? NONE SEEN #/LPF (NONE SEEN); Crystals Seen? None Seen #/HPF (None Seen); Mucus Urine NONE SEEN (NONE SEEN); Squamous Epithelial Cell Urine NONE SEEN #/LPF (NONE/RARE); Urine Culture Indicated ALREADY ORDERED
== END 2025-01-06 21:00 | disposition home or self-care (01) ==
LOC: LAB 20:59
PROVIDERS: PCP Family Medicine; Visit Provider Family Medicine
DX: N39.0 Urinary tract infection, site not specified (principal)
CPT/HCPCS: 81001; 87086; 87088; 87186

== ENCOUNTER 2025-01-14 16:31 | Outpatient (OUT) | payer MEDICARE, MEDICAID, SELFPAY ==
--- NOTE | 2025-01-14 | XR_ITS ---
[address] [address] Patient Name: RIGO REDDY MRN: [id number] date: 1985 Sex: M Assigned Patient Location: [facility] Current Patient Location: [facility] Accession/Order Number: [id number] Exam Date: 01/14/2025 17:26 Report Date: 01/14/2025 17:28 At the request of: DENIS MELVIN MD Procedure: XR knee RT 3V 3 views right knee plain film COMPARISON: None HISTORY: Right knee pain ACUTE FINDINGS: No acute findings DEGENERATIVE CHANGE: Unremarkable SOFT TISSUE FINDINGS: Unremarkable JOINT EFFUSION: None POSTOP CHANGES: None BONE MINERALIZATION: Adequate XR/XR knee RT 3V IMPRESSION: Unremarkable exam Impression dictated by: Rojas Navarrete M.D. 01/14/2025 5:28 PM Dictation Location: [place] [address] Electronically authenticated by: [id number] Y Date: 01/14/2025 17:28
== END 2025-01-14 16:32 | disposition home or self-care (01) ==
LOC: RAD 16:32
PROVIDERS: PCP Family Medicine; Visit Provider Family Medicine
DX: M25.561 Pain in right knee (principal)
CPT/HCPCS: 73562

== ENCOUNTER 2025-02-13 15:55 | Outpatient (OUT) | payer MEDICARE, MEDICAID, SELFPAY ==
--- NOTE | 2025-02-13 16:30 | CT_ITS ---
The [address] [address] Patient Name: RIGO REDDY MRN: [id number] date: 1985 Sex: M Assigned Patient Location: CT Current Patient Location: CT Accession/Order Number: [id number] Exam Date: 02/13/2025 17:47 Report Date: 02/13/2025 17:52 At the request of: DENIS MELVIN MD Procedure: CT ankle LT wo con CT of both ankles TECHNIQUE: The CT exam was performed using one or more the following dose reduction techniques: Automated exposure control, adjustment of the MA and/or Kv according to patient size, or use of the iterative reconstruction technique. COMPARISON: None HISTORY: Increasing weakness with difficulty walking. Adequate bony alignment. No acute displaced fracture. Unremarkable soft tissues. No tarsal coalition. No obvious tendinopathy. No significant spurring. No significant degeneration. CT/CT ankle RT wo con IMPRESSION: No acute bony findings or significant degeneration of the right and left ankle. Impression dictated by: Rojas Navarrete M.D. 02/13/2025 5:52 PM Dictation Location: [place] [address] Electronically authenticated by: [id number] Y Date: 02/13/2025 17:52
--- NOTE | 2025-02-13 16:30 | CT_ITS ---
The [address] [address] Patient Name: RIGO REDDY MRN: [id number] date: 1985 Sex: M Assigned Patient Location: CT Current Patient Location: CT Accession/Order Number: [id number] Exam Date: 02/13/2025 17:47 Report Date: 02/13/2025 17:52 At the request of: DENIS MELVIN MD Procedure: CT ankle LT wo con CT of both ankles TECHNIQUE: The CT exam was performed using one or more the following dose reduction techniques: Automated exposure control, adjustment of the MA and/or Kv according to patient size, or use of the iterative reconstruction technique. COMPARISON: None HISTORY: Increasing weakness with difficulty walking. Adequate bony alignment. No acute displaced fracture. Unremarkable soft tissues. No tarsal coalition. No obvious tendinopathy. No significant spurring. No significant degeneration. CT/CT ankle LT wo con IMPRESSION: No acute bony findings or significant degeneration of the right and left ankle. Impression dictated by: Rojas Navarrete M.D. 02/13/2025 5:52 PM Dictation Location: [place] [address] Electronically authenticated by: [id number] Y Date: 02/13/2025 17:52
== END 2025-02-13 15:56 | disposition home or self-care (01) ==
LOC: CT 15:55
PROVIDERS: PCP Family Medicine; Visit Provider Family Medicine
DX: M25.572 Pain in left ankle and joints of left foot (principal); M25.571 Pain in right ankle and joints of right foot; M25.551 Pain in right hip; M25.552 Pain in left hip; M25.561 Pain in right knee; M25.562 Pain in left knee
CPT/HCPCS: 73700

== ENCOUNTER 2025-02-18 15:44 | Outpatient (OUT) | payer MEDICARE, MEDICAID, SELFPAY ==
--- OUTSIDE RECORDS SUMMARY | 2025-02-05 12:18 | XMS_ITS ---
Author Organization The [facility] in [place] Address [address] [place] [address] Care Team Providers Care Stress Test Technician Name Role Phone Quinn Canales Primary Care Provider Quinton Gonzales Unavailable [phone] REASON FOR VISIT Ipratropium [place] Encounters Encounter Location Date Provider Diagnosis [facility] [address] [place] [address] 02/05/2025 Quinton Gonzales Plan Of Treatment Next Appt Details Provider Name:Quinn Canales, 01:00:00 PM, [address] [place], [address], Provider Name:Quinton Gonzales, 07/15/2025 11:00:00 AM, [address] [place], [address], Progress Notes * Ruddy PALMERDOB:1985 (39 yo M)Acc No.[id number]:02/05/2025 Patient: Ruddy ABBOTT :1985 A ge:39 Y S ex:Male Address:[address] [place], [address] * true * Date: Generated for Printi ng/Faxing/eTransmitting on: 0 02/18/2025 03:46 PM EDT
--- OUTSIDE RECORDS SUMMARY | 2025-02-13 14:33 | XMS_ITS ---
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 Name Role Phone AllyQuinn Primary Care Provider [phone] knee Encounters Encounter Location Date Provider Diagnosis [facility] [address] [place] [address] 02/13/2025 Quinn Canales Plan Of Treatment Next Appt Details Provider Name:Quinn Browning Ally, 01:00:00 PM, [address] [place], [address], Provider Name:Quinton Gonzales, 07/15/2025 11:00:00 AM, [address] [place], [address], Progress Notes * Ruddy PALMERDOB:1985 (39 yo M)Acc No.[id number]:02/13/2025 Patient: Ruddy ABBOTT :1985 A ge:39 Y S ex:Male Address:[address] [place], [address] * true * Date: Generated for Printi ng/Faxing/eTransmitting on: 0 02/18/2025 03:47 PM EDT
--- OUTSIDE RECORDS SUMMARY | 2025-02-18 05:21 | XMS_ITS ---
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 Name Role Phone Quinn Canales Primary Care Provider REASON FOR VISIT deep nasty cough Medications Medication SIG (Take, Route, Frequency, Duration) Notes Start Date End Date Status predniSONE 20 MG 3 tablets Orally Onc e a day for 5 days 02/18/2025 Active Amoxicillin-Pot Clavulanate 875-125 MG 1 tablet Orally every 12 hrs for 10 days 02/18/2025 Active Encounters Encounter Location Date Provider Diagnosis [facility] [address] [place] [address] 02/18/2025 Quinn Canales Plan Of Treatment Medication Medication Name Sig Start Date Stop Date Notes predniSONE 20 MG 3 tablets Orally Onc e a day for 5 days 02/18/2025 Amoxicillin-Pot Clavulanate 875-125 MG 1 tablet Orally every 12 hrs for 10 days 02/18/2025 Next Appt Details Provider Name:Quinn Canales, 01:00:00 PM, [address] [place], [address], Provider Name:Quinton Gonzales, 07/15/2025 11:00:00 AM, [address] [place], [address], Progress Notes * Ruddy PALMERDOB:1985 (39 yo M)Acc No.[id number]:02/18/2025 Patient: Ruddy ABBOTT :1985 A ge:39 Y S ex:Male Address:[address] [place] [address], [address] * Refills Start predniSONE Tablet, 20 MG, Orally, 15 Tablet, 3 tablets, Once a day, 5 days Start Amoxicillin-Pot Clavulanate Tablet, 875-125 MG, Orally, 20 Tablet, 1 tablet, every 12 hrs, 10 days, Refills=1 * true * Date: Generated for Therese ortiz/Nolan/Zehraitting on: 0 02/18/2025 03:47 PM EDT
--- OUTSIDE RECORDS SUMMARY | 2025-02-18 15:46 | XMS_ITS | Patient Health Record ---
Author Organization [facility] Address [address] [place] [address] Care Team Providers [employer] Operator Name Role Phone Simón Canales Primary Care Provider UnavailVinod Sandoval Unavailable [phone] Leonel Tatiana Unavailable Allergies No Known Allergies Results Component Value Reference Range Notes SCC- HAND 3 VIEW LEFT [id number] Reviewed date:11/14/2024 11:55:45 AM Interpretation: Performing Lab: Notes/Report: SCC- HAND 3 VIEW LEFT [id number] Reviewed date:01/13/2025 01:45:51 PM Interpretation: Performing Lab: Notes/Report: SCC- HAND 3 VIEW LEFT [id number] Reviewed date:11/21/2024 01:53:34 PM Interpretation: Performing Lab: Notes/Report: Reason For Referral No Information Social History Tobacco Use: Social History Observation Description Date Details (start date - stop date) Never Smoker NA - NA AUDIT-C (Standard) Question Answer Notes Did you have a drink containing alcohol in the p ast year? No Points 0 Interpretation Negative Tobacco Control (Standard) Question Answer Notes Tobacco use: Nonsmoker Problems Problem Type SNOMED Code ICD Code Onset Dates Problem Status W/U Status Risk Notes Problem [id number] Unspecified fracture of first metacarpal bone, left hand, subsequent encounter for fracture with routine healing (S62.202D) Active confirmed Problem [id number] Unspecified fracture of second metacarpal bone, left hand, subsequent encounter for fracture with routine healing (S62.301D) Active confirmed Problem [id number] Unspecified fracture of third metacarpal bone, left hand, subsequent encounter for fracture with routine healing (S62.303D) Active confirmed Problem [id number] Unspecified fracture of fourth metacarpal bone, left hand, subsequent encounter for fracture with routine healing (S62.305D) Active confirmed Problem [id number] Unspecified fracture of fifth metacarpal bone, left hand, subsequent encounter for fracture with routine healing (S62.307D) Active confirmed Problem [id number] Closed nondisplaced fracture of fourth metacarpal bone of left hand, unspecified portion of metacarpal, initial encounter (S62.305A) Active confirmed Problem [id number] Closed nondisplaced fracture of fifth metacarpal bone of left hand, unspecified portion of metacarpal, initial encounter (S62.307A) Active confirmed Problem [id number] Closed fracture of first metacarpal bone of left hand, unspecified fracture morphology, unspecified portion of metacarpal, initial encounter (S62.202A) Active confirmed Problem 535366965 Closed nondisplaced fracture of second metacarpal bone of left hand, unspecified portion of metacarpal, initial encounter (S62.301A) Active confirmed Problem [id number] Closed nondisplaced fracture of third metacarpal bone of left hand, unspecified portion of metacarpal, initial encounter (S62.303A) Active confirmed Encounters Encounter Location Date Provider Diagnosis [facility] Office [address] [place] [id number] 10/22/2024 [facility] [place] Closed fracture of first metacarpal bone of left hand, unspecified fracture morphology, unspecified portion of metacarpal, initial encounter S62.202A ; Closed nondisplaced fracture of second metacarpal bone of left hand, unspecified portion of metacarpal, initial encounter S62.301A ; Closed nondisplaced fracture of third metacarpal bone of left hand, unspecified portion of metacarpal, initial encounter S62.303A ; Closed nondisplaced fracture of fourth metacarpal bone of left hand, unspecified portion of metacarpal, initial encounter S62.305A and Closed nondisplaced fracture of fifth metacarpal bone of left hand, unspecified portion of metacarpal, initial encounter S62.307A [facility] Office [address] [place] [phone] 10/28/2024 Vinod Lynn Closed fracture of first metacarpal bone of left hand, unspecified fracture morphology, unspecified portion of metacarpal, initial encounter S62.202A ; Closed nondisplaced fracture of second metacarpal bone of left hand, unspecified portion of metacarpal, initial encounter S62.301A ; Closed nondisplaced fracture of third metacarpal bone of left hand, unspecified portion of metacarpal, initial encounter S62.303A ; Closed nondisplaced fracture of fourth metacarpal bone of left hand, unspecified portion of metacarpal, initial encounter S62.305A and Closed nondisplaced fracture of fifth metacarpal bone of left hand, unspecified portion of metacarpal, initial encounter S62.307A [facility] [address] [address] 11/04/2024 Tatiana Castaneda Closed fracture of first metacarpal bone of left hand, unspecified fracture morphology, unspecified portion of metacarpal, initial encounter S62.202A ; Closed nondisplaced fracture of second metacarpal bone of left hand, unspecified portion of metacarpal, initial encounter S62.301A ; Closed nondisplaced fracture of third metacarpal bone of left hand, unspecified portion of metacarpal, initial encounter S62.303A ; Closed nondisplaced fracture of fifth metacarpal bone of left hand, unspecified portion of metacarpal, initial encounter S62.307A and Closed nondisplaced fracture of fourth metacarpal bone of left hand, unspecified portion of metacarpal, initial encounter S62.305A [facility] [address] [address] 12/02/2024 Tatiana Castaneda Closed fracture of first metacarpal bone of left hand, unspecified fracture morphology, unspecified portion of metacarpal, initial encounter S62.202A ; Closed nondisplaced fracture of second metacarpal bone of left hand, unspecified portion of metacarpal, initial encounter S62.301A ; Closed nondisplaced fracture of third metacarpal bone of left hand, unspecified portion of metacarpal, initial encounter S62.303A ; Closed nondisplaced fracture of fourth metacarpal bone of left hand, unspecified portion of metacarpal, initial encounter S62.305A and Closed nondisplaced fracture of fifth metacarpal bone of left hand, unspecified portion of metacarpal, initial encounter S62.307A [address] [address] 12/30/2024 [facility] Unspecified fracture of fifth metacarpal bone, left hand, subsequent encounter for fracture with routine healing S62.307D ; Unspecified fracture of fourth metacarpal bone, left hand, subsequent encounter for fracture with routine healing S62.305D ; Unspecified fracture of third metacarpal bone, left hand, subsequent encounter for fracture with routine healing S62.303D ; Unspecified fracture of second metacarpal bone, left hand, subsequent encounter for fracture with routine healing S62.301D and Unspecified fracture of first metacarpal bone, left hand, subsequent encounter for fracture with routine healing S62.202D Assessments Encounter Date Diagnosis (ICD Code) Assessment Notes Treatment Notes Treatment Clinical Notes Section Notes 10/22/2024 Closed fracture of first metacarpal bone of left hand, unspecified fracture morphology, unspecified portion of metacarpal, initial encounter (ICD-10 - S62.202A) Left 2-5 metacarpal base fractures 10/22/2024 Closed nondisplaced fracture of second metacarpal bone of left hand, unspecified portion of metacarpal, initial encounter (ICD-10 - S62.301A) Left 2-5 metacarpal base fractures 10/28/2024 Closed fracture of first metacarpal bone of left hand, unspecified fracture morphology, unspecified portion of metacarpal, initial encounter (ICD-10 - S62.202A) 10/28/2024 Closed nondisplaced fracture of second metacarpal bone of left hand, unspecified portion of metacarpal, initial encounter (ICD-10 - S62.301A) 11/04/2024 Closed fracture of first metacarpal bone of left hand, unspecified fracture morphology, unspecified portion of metacarpal, initial encounter (ICD-10 - S62.202A) 11/04/2024 Closed nondisplaced fracture of second metacarpal bone of left hand, unspecified portion of metacarpal, initial encounter (ICD-10 - S62.301A) 12/02/2024 Closed fracture of first metacarpal bone of left hand, unspecified fracture morphology, unspecified portion of metacarpal, initial encounter (ICD-10 - S62.202A) 12/02/2024 Closed nondisplaced fracture of second metacarpal bone of left hand, unspecified portion of metacarpal, initial encounter (ICD-10 - S62.301A) 12/30/2024 Unspecified fracture of fourth metacarpal bone, left hand, subsequent encounter for fracture with routine healing (ICD-10 - S62.305D) 12/30/2024 Unspecified fracture of fifth metacarpal bone, left hand, subsequent encounter for fracture with routine healing (ICD-10 - S62.307D) 12/30/2024 Unspecified fracture of third metacarpal bone, left hand, subsequent encounter for fracture with routine healing (ICD-10 - S62.303D) 12/02/2024 Closed nondisplaced fracture of third metacarpal bone of left hand, unspecified portion of metacarpal, initial encounter (ICD-10 - S62.303A) 11/04/2024 Closed nondisplaced fracture of third metacarpal bone of left hand, unspecified portion of metacarpal, initial encounter (ICD-10 - S62.303A) 10/28/2024 Closed nondisplaced fracture of third metacarpal bone of left hand, unspecified portion of metacarpal, initial encounter (ICD-10 - S62.303A) 10/22/2024 Closed nondisplaced fracture of third metacarpal bone of left hand, unspecified portion of metacarpal, initial encounter (ICD-10 - S62.303A) Left 2-5 metacarpal base fractures 10/28/2024 Closed nondisplaced fracture of fourth metacarpal bone of left hand, unspecified portion of metacarpal, initial encounter (ICD-10 - S62.305A) 12/02/2024 Closed nondisplaced fracture of fourth metacarpal bone of left hand, unspecified portion of metacarpal, initial encounter (ICD-10 - S62.305A) 10/22/2024 Closed nondisplaced fracture of fourth metacarpal bone of left hand, unspecified portion of metacarpal, initial encounter (ICD-10 - S62.305A) Left 2-5 metacarpal base fractures 11/04/2024 Closed nondisplaced fracture of fifth metacarpal bone of left hand, unspecified portion of metacarpal, initial encounter (ICD-10 - S62.307A) 12/30/2024 Unspecified fracture of second metacarpal bone, left hand, subsequent encounter for fracture with routine healing (ICD-10 - S62.301D) 10/22/2024 Closed nondisplaced fracture of fifth metacarpal bone of left hand, unspecified portion of metacarpal, initial encounter (ICD-10 - S62.307A) Left 2-5 metacarpal base fractures 12/02/2024 Closed nondisplaced fracture of fifth metacarpal bone of left hand, unspecified portion of metacarpal, initial encounter (ICD-10 - S62.307A) 12/30/2024 Unspecified fracture of first metacarpal bone, left hand, subsequent encounter for fracture with routine healing (ICD-10 - S62.202D) 10/28/2024 Closed nondisplaced fracture of fifth metacarpal bone of left hand, unspecified portion of metacarpal, initial encounter (ICD-10 - S62.307A) 11/04/2024 Closed nondisplaced fracture of fourth metacarpal bone of left hand, unspecified portion of metacarpal, initial encounter (ICD-10 - S62.305A) 10/22/2024 Other Patient evaluat ed by myself and Dr. Lynn today. Patients splint appropriately extends past the MCP joints of the fingers and we will maintain this for now given his swelling. We discussed with his parents that he does not need surgery for these fractures. We will see him back in 1 week to repeat x-rays. Left 2-5 metacarpal base fractures 10/28/2024 Other We will continue with the splint. He will follow-up in 1 week to repeat x-rays and reassess his progress. If the splint is coming off a ladder causing problems consideration could be made for cast at that time. Import medication 11/04/2024 Other Patient is doin g well and I discussed casting patient today for further protection given his swelling has decreased. Patient's mother agrees and thinks he will be okay with cast removal. I did place a short arm cast with extension up almost to the DIP joints of fingers 2-5. We will see him back in 4 weeks to remove cast and repeat x-rays. 12/02/2024 Other Patient is karolyn damico well and we will discontinue use of the cast today. I will have him use a wrist brace with activity, he can remove for hygiene and sleeping. I discussed with his caregivers that they can start working on range of motion of the wrist and fingers. They do not think he would do well in physical therapy with following commands. We will see him back in 4 weeks to repeat x-rays and reassess his progress. 12/30/2024 Other Patient is karolyn damico well and is about 10 and half weeks out from his injury. I encouraged his caregivers to keep having him use the hand as tolerated to prevent any stiffness and start regaining strength. We will see him back in 2 months to repeat x-rays and reassess his progress. Plan Of Treatment Pending Test Test Name Order Date SCC- HAND 3 VIEW LEFT [id number] 12/02/2024 Next Appt Details Provider Name:Vinod Yap and, 03/10/2025 09:00:00 AM, [address] [facility], [address], [place], [address], Insurance Providers Payer Name Payer Address Payer Phone Subscriber Number Group Number Insured Name Patient Relationship to Insured Coverage Start Date Coverage End Date [place] [address] [id number] RIGO REDDY Self - [facility] [address] [place] [address] [id number] RIGO REDDY Self - patient is the insured
--- OUTSIDE RECORDS SUMMARY | 2025-02-18 15:46 | XMS_ITS ---
Author Organization [employer] tem Address [id number] [address] [place] [address] Care Team Providers Care Credit Card Interviewer Name Role Phone Simón Canales MD Primary Care Provider [phone] Dialysis Access Sites Type Status Location Placement Date Removal Da te Hemodialysis Catheter Double 08/05/21 Cuffed Left Chest Active Left Breast 08/05/2021 Hemodialysis Catheter Double 07/11/21 Left Chest Active Left Breast 07/11/2021 Hemodialysis Catheter Double 03/26/21 Cuffed Left Internal Jugular Active Left Neck (side) - Anterior 03/26/2021 Hemodialysis Catheter Double 07/14/21 Cuffed Left Chest Inactive Left Breast 07/14/2021 08/05/2021 Hemodialysis Catheter Triple 03/20/21 Uncuffed Left Internal Jugular Inactive Left Neck (side) - Anterior 03/20/2021 03/26/2021 Procedures Procedure Name Priority Date/Time Associated Diagnosis Comments BUN Routine 12/27/2024 2:55 PM EDT Diagnosis unknown BUN Routine 12/27/2024 11:15 AM EDT Diagnosis unknown ALBUMIN Routine 12/25/2024 11:15 AM EDT End stage renal disease ([facility]) Dependence on renal dialysis CALCIUM Routine 12/25/2024 11:15 AM EDT End stage renal disease ([facility]) Dependence on renal dialysis HEMOGLOBIN Routine 12/25/2024 11:15 AM EDT End stage renal disease ([facility]) Dependence on renal dialysis POTASSIUM Routine 12/25/2024 11:15 AM EDT End stage renal disease ([facility]) Dependence on renal dialysis PHOSPHORUS Routine 12/25/2024 11:15 AM EDT End stage renal disease ([facility]) Dependence on renal dialysis BUN Routine 12/25/2024 11:15 AM EDT End stage renal disease ([facility]) Dependence on renal dialysis from Last 3 Months Allergies Active Allergy Reactions Criticality Noted Date Comments Ciprofloxacin Hcl Hives 03/17/2021 Latex Hives,Other (See Comments) Medications sildenafiL, pulm.hypertensi on, (REVATIO) 20 mg tablet Take 1 tablet (20 mg total) by mouth 3 (three) times a day. Active omeprazole (PriLOSEC) 20 mg capsule Take 1 capsule (20 mg total) by mouth in the morning and 1 capsule (20 mg total) before bedtime. Active clonazePAM (KlonoPIN) 0.5 mg tablet Take 1 tablet (0.5 mg total) by mouth in the morning and 1 tablet (0.5 mg total) before bedtime. Active dextromethorpha n-quiNIDine (NUEDEXTA) 20-10 mg capsule Take 1 capsule by mouth in the morning and 1 capsule before bedtime. Active levalbuterol (XOPENEX) 1.25 mg/3 mL nebulizer solution Inhale 3 mL (1.25 mg total) by nebulization 3 (three) times a day. Active bumetanide (BUMEX) 2 mg tablet Take 1 tablet (2 mg total) by mouth daily. Take only on non-hemodialysis days. 30 tablet 1 1 Active Additional Information Patient taking differently:2 mg oral Daily,Take only on non-hemodialysis days. M, W, F, Young, Informant: Father, Reported on 08/04/2022 magnesium oxide (MAG-OX) 400 mg tablet Take 1 tablet (400 mg total) by mouth 2 (two) times a day. 60 tablet 1 1 Active ipratropium (ATROVENT) 0.02 % nebulizer solution Inhale 2.5 mL (0.5 mg total) by nebulization in the morning and 2.5 mL (0.5 mg total) at noon and 2.5 mL (0.5 mg total) in the evening. Active psyllium (METAMUCIL) powder Take 1 packet by mouth in the morning. Active metoprolol tartrate (LOPRESSOR) 25 mg tablet Take 1 tablet (25 mg total) by mouth 2 (two) times a day. 60 tablet 1 Active dilTIAZem (CARDIZEM) 30 mg tablet Take 1 tablet (30 mg total) by mouth 3 (three) times a day. 1 Active acetaminophen (TYLENOL EXTRA STRENGTH) 500 mg tablet Take 2 tablets (1,000 mg total) by mouth every 8 (eight) hours as needed. 2 Active busPIRone (BUSPAR) 10 mg tablet Take 1 tablet (10 mg total) by mouth in the morning. 2 Active RENAL VITAMIN 0.8 mg tablet Take 1 tablet by mouth in the morning. 2 Active calcium acetate,phospha t bind, (PHOSLO) 667 mg capsule Take 1 capsule (667 mg total) by mouth. Active carboxymethylce llulose sodium 1 % drops 1 drop. Active lidocaine-prilo jose (EMLA) cream APPLY to dialysis access site 1 (ONE) HOUR prior to treatment MONDAY, MONDAY, and Monday 3 Active clindamycin (CLINDAGEL) 1 % gel Apply topically as needed. 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 Never 04/12/2021 How often do you get together with friends or re latives? Never 04/12/2021 How often do you attend scientologist or presybeterian serv ices? Never 04/12/2021 Do you belong to any clubs o r organizations such as scientologist groups, unions, fraternal or athletic groups, or school groups? No 04/12/2021 How often do you attend meet ings of the clubs or organizations you belong to? Never 04/12/2021 Are you , , di vorced, , never , or living with a partner? Never 04/12/2021 AUDIT-C Answer Date Recorded Q1: How often do you have a drink containing alc ohol? Never 04/12/2021 Average Number of Drinks Not on file 021 Q3: How often do you have si x or more drinks on one occasion? Never 04/12/2021 Overall Financial Resource Strain (CARDIA) Answe r Date Recorded How hard is it for you to pa y for the very basics like food, housing, medical care, and heating? Not hard at all 04/12/2021 PHQ-2 Answer Date Recorded Total Score 1 04/12/2021 [facility] - Occupational Stress Questionnaire Answer Date Recorded Do you feel stress - tense, restless, nervous, or anxious, or unable to sleep at night because your mind is troubled all the time - these days? Not at all 04/12/2021 Exercise Vital Sign Answer Date Recorde d On average, how many days pe r week do you engage in moderate to strenuous exercise (like a brisk walk)? 7 days 04/12/2021 On average, how many minutes do you engage in exercise at this level? 60 min 04/12/2021 PRAPARE - Transportation Answer Date Re corded In the past 12 months, has l ack of transportation kept you from medical appointments or from getting medications? No 05/2021 In the past 12 months, has l ack of transportation kept you from meetings, work, or from getting things needed for daily living? No 04/12/2021 Childcare Answer Date Recorded Do problems getting child ca re make it difficult for you to work or study? No 04/12/2021 Employment Answer Date Recorded Do you need help finding a [employer] career center and/or a training program? No 04/12/2021 Purpose - Life Answer Date Recorded I have a purpose and direction in my life. Anabelith er Agree nor Disagree 04/12/2021 Sex and Gender Information Value Date Recorded Sex Assigned at Male 04/01/2021 4:15 PM EDT Legal Sex Male 11:21 AM EDT Gender Identity Male 04/01/2021 4:15 PM EDT Sexual Orientation Not on file Last Filed Vital Signs Vital Sign Reading Time Taken Comments Blood Pressure 106/52 08/04/2022 2:30 PM EST patient could not sit still Pulse 62 08/04/2022 2:30 PM EST Temperature 36.2 C (97.2 F) 08/05/2021 3:25 PM EST Respiratory Rate 12 08/05/2021 3:35 PM EST Oxygen Saturation 93% 08/05/2021 3:3 5 PM EST Inhaled Oxygen Concentration - - Weight 61 kg (134 lb 7.7 oz) 08/10/2023 2:57 PM EST Height 175.3 cm (5' 9 ) 08/10/2023 2:57 PM EST Body Mass Index 19.86 08/10/2023 2:57 PM EST Results * BUN (12/27/2024 2:55 PM EDT) Only the most recent of3 resultswithin the time period is included. BUN 14 5 - 23 mg/dL 12/27/2024 6:46 PM EDT [facility] PLASMA 12/27/2024 2:55 PM EDT 12/27/2024 6:23 PM EDT us Wolf Guardado MD LAB BLOOD ORDERABLES Final Res ult Performing Organization Address [facility]/ZIP Co de Phone Number [facility] [address] [facility], [address] [place] [address] * (ABNORMAL) Hemoglobin (12/25/2024 11:15 AM EDT) Hemoglobin 10.3(L) 13.0 - 17.0 g/dL 12/25/2024 9:34 PM EDT [facility] Blood / Unknown 12/25/2024 1 1:15 AM EDT 12/25/2024 6:35 PM EDT us Not In System Ref Prov LAB BLOOD ORDERABLES Edit ed Result - Final Performing Organization Address [facility]/ZIP Co de Phone Number [facility] [address] [facility], [address] [place] [address] * (ABNORMAL) Potassium (12/25/2024 11:15 AM EDT) Potassium, Bld 3.0(L) 3.5 - 5.0 mmol/L 12/25/2024 7:35 PM EDT [facility] PLASMA 12/25/2024 11:1 5 AM EDT 12/25/2024 6:35 PM EDT us Not In System Ref Prov LAB BLOOD ORDERABLES Edit ed Result - Final Performing Organization Address City/[facility]/ZIP Co de Phone Number [facility] [address] [facility], [address] [place] [id number] * Phosphorus (12/25/2024 11:15 AM EDT) Phosphorus 2.4 2.4 - 4.9 mg/dL 12/25/2024 7:35 PM EDT [facility] PLASMA 12/25/2024 11:1 5 AM EDT 12/25/2024 6:35 PM EDT us Not In System Ref Prov LAB BLOOD ORDERABLES Edit ed Result - Final [facility] 0 [facility], [address] [place] [address] * Calcium (12/25/2024 11:15 AM EDT) Calcium 8.7 8.5 - 10.5 mg/dL 12/25/2024 7:35 PM EDT [facility] PLASMA 12/25/2024 11:1 5 AM EDT 12/25/2024 6:35 PM EDT us Not In System Ref Prov LAB BLOOD ORDERABLES Edit ed Result - Final [facility] [address] [facility], [address] [place] [address] * Albumin (12/25/2024 11:15 AM EDT) Albumin 4.2 3.2 - 5.3 g/dL 12/25/2024 7:35 PM EDT [facility] PLASMA 12/25/2024 11:1 5 AM EDT 12/25/2024 6:35 PM EDT us Not In System Ref Prov LAB BLOOD ORDERABLES Edit ed Result - Final [facility] [address] [facility], [address] [place] [address] from Last 3 Months
--- OUTSIDE RECORDS SUMMARY | 2025-02-18 15:46 | XMS_ITS | Clinical Summary ---
Author Organization [employer] Address [id number] [address] [place] [address] Care Team Providers Care Hospitality Team Member Name Role Phone Simón Canales MD Primary Care Provider [phone] Allergies Active Allergy Reactions Criticality Noted Date [...] 04/12/2021 Acute renal failure (ARF) 03/17/2021 Sepsis Resolved Problems Problem Noted Date Diagnosed Date Resolved Date Multiple subsegmental pulmon piero emboli without acute cor pulmonale 03/31/2021 07/13/2021 watermaster (current) use of anticoagulants 03/24/2021 07/13/2021 Pulmonary embolism 03/24/2021 Encounters Date Type Department Care Team Description 12/27/2024 9:57 PM EDT - 12/27/2024 11:59 PM EDT Hospital Encounter [facility] [address] [facility] [place] [address] Diagnosis unknown (Primary Dx) Discharge Disposition: Home 12/27/2024 6:20 PM EDT - 12/27/2024 9:56 PM EDT Hospital Encounter [facility] [address] [facility] [place] [address] Diagnosis unknown (Primary Dx) Discharge Disposition: Home 12/25/2024 6:29 PM EDT - 12/25/2024 11:59 PM EDT Hospital Encounter [facility] [address] [facility] [address] [place] [address] End stage renal disease ([facility]) (Primary Dx); Dependence on renal dialysis Discharge Disposition: Home from Last 3 Months Immunizations No known immunizations Social History Tobacco [...] Never 04/12/2021 How often do you attend scientology or restorationist serv ices? Never 04/12/2021 Do you belong to any clubs o r organizations such as scientology groups, unions, fraternal or athletic groups, or [...] Answer Date Recorded Total Score 1 04/12/2021 [facility] - Occupational Stress Questionnaire Answer Date Recorded [...] Recorded Do you need help finding a l ocal career center and/or a training program? No 04/12/2021 Purpose - Life Answer Date Recorded I have a purpose and direction in my life. Calixto conde Agree nor Disagree 04/12/2021 Sex and Gender [...] Mass Index 19.86 08/10/2023 2:57 PM EST Plan of Treatment Health Maintenance Due Date Last Done Comments Depression Screening 1996 DTaP,Tdap and Td Vaccines (6 - Tdap) 04/09/1999 04/08/1999, 10/30/1989, 03/19/1986, Additional history exists Adult BMI Screening 08/10/2024 08/10/2023 Tobacco Screening 08/10/2024 08/10/2023 Influenza Vaccine 05/05/2025 06/14/2024, 07/01/2022 Goals Goal Patient Goal Type Associated Problems Recent Progress Patient-Stated? Author Discharge home General Yes Cony Gonzalez LISW Note: Evaluation of progress towards goal: Pts family plan for pt to discharge home with family support; decline need for home care services. Medical Devices Not on file Procedures Procedure Name Priority Date/Time Associated Diagnosis Comments BUN Routine 12/27/2024 2:55 PM EDT Diagnosis unknown BUN Routine 12/27/2024 11:15 AM EDT Diagnosis unknown ALBUMIN Routine 12/25/2024 11:15 AM EDT End stage renal disease ([facility]) Dependence on renal dialysis CALCIUM Routine 12/25/2024 11:15 AM EDT End stage renal disease ([facility]) Dependence on renal dialysis HEMOGLOBIN Routine 12/25/2024 11:15 AM EDT End stage renal disease ([facility]) Dependence on renal dialysis POTASSIUM Routine 12/25/2024 11:15 AM EDT End stage renal disease ([facility]) Dependence on renal dialysis PHOSPHORUS Routine 12/25/2024 11:15 AM EDT End stage renal disease ([facility]) Dependence on renal dialysis BUN Routine 12/25/2024 11:15 AM EDT End stage renal disease ([facility]) Dependence on renal dialysis from Last 3 Months Results * BUN (12/27/2024 2:55 PM EDT) Only the most recent of3 resultswithin the time period is included. BUN 14 5 - 23 mg/dL 12/27/2024 6:46 PM EDT [facility] PLASMA 12/27/2024 2:55 PM EDT 12/27/2024 6:23 PM EDT us Wolf Guardado MD LAB BLOOD ORDERABLES Final Res ult Performing Organization Address City/[facility]/ZIP Co de Phone Number [facility] [address] [facility], [address] [place] [address] * (ABNORMAL) Hemoglobin (12/25/2024 11:15 AM EDT) Hemoglobin 10.3(L) 13.0 - 17.0 g/dL 12/25/2024 9:34 PM EDT [facility] Blood / Unknown 12/25/2024 1 1:15 AM EDT 12/25/2024 6:35 PM EDT us Not In System Ref Prov LAB BLOOD ORDERABLES Edit ed Result - Final [facility] [address] [facility], [address] [place] [address] * (ABNORMAL) Potassium (12/25/2024 11:15 AM EDT) Potassium, Bld 3.0(L) 3.5 - 5.0 mmol/L 12/25/2024 7:35 PM EDT [facility] PLASMA 12/25/2024 11:1 5 AM EDT 12/25/2024 6:35 PM EDT us Not In System Ref Prov LAB BLOOD ORDERABLES Edit ed Result - Final Performing Organization Address [facility]/ZIP Co de Phone Number [facility] [address] [facility], [address] [place] [address] * Phosphorus (12/25/2024 11:15 AM EDT) Phosphorus 2.4 2.4 - 4.9 mg/dL 12/25/2024 7:35 PM EDT [facility] PLASMA 12/25/2024 11:1 5 AM EDT 12/25/2024 6:35 PM EDT us Not In System Ref Prov LAB BLOOD ORDERABLES Edit ed Result - Final Performing Organization Address City/[facility]/ZIP Co de Phone Number [facility] [address] [facility], [address] [place] [address] * Calcium (12/25/2024 11:15 AM EDT) Calcium 8.7 8.5 - 10.5 mg/dL 12/25/2024 7:35 PM EDT [facility] PLASMA 12/25/2024 11:1 5 AM EDT 12/25/2024 6:35 PM EDT us Not In System Ref Prov LAB BLOOD ORDERABLES Edit ed Result - Final [facility] [address] [facility], [address] [place] [address] * Albumin (12/25/2024 11:15 AM EDT) Albumin 4.2 3.2 - 5.3 g/dL 12/25/2024 7:35 PM EDT [facility] PL[facility]MA 12/25/2024 11:1 5 AM EDT 12/25/2024 6:35 PM EDT us Not In System Ref Prov LAB BLOOD ORDERABLES Edit ed Result - Final Performing Organization Address City/[facility]/ZIP Co de Phone Number [facility] [address] [facility], [address] [place] [address] from Last 3 Months Insurance MEDICARE Advance Directives Documents on File Type Date Recorded Patient Litigation Assistant Expl anation DNR Physician Order 04/29/2021 3:20 PM DNR Physician Order 04/05/2021 3:14 PM * DNR Comfort Care Arrest (DNR-CCA) [place] (Latest Code Status on File) Date Activated Date Inactivated Comments 04/12/2021 10:07 PM 04/25/2021 3:23 PM * DNR Comfort Care Arrest (DNR-CCA) [place] Date Activated Date Inactivated Comments 03/17/2021 1:14 PM 03/31/2021 8:27 PM * Full Code Date Activated Date Inactivated Comments 03/17/2021 5:07 AM 03/17/2021 1:14 PM Care Teams Hospitality Team Member Relationship Specialty Start Date End Date Simón Canales MD PCP - General Family Medicine 06/08/20
--- OUTSIDE RECORDS SUMMARY | 2025-02-18 15:46 | XMS_ITS | Encounter Summary ---
Author Organization [facility] Address [address] [place] [address] Care Team Providers Care Livestock Farmer Name Role Phone Simón Canales MD Primary Care Provider +- Encounter Details Date Type Department Care Team ([facility] Contact Info) Description 01/27/2023 Abstract [facility] [address] [phone] Wesley Marvin MD [address] [phone] Social History Tobacco Use Types Packs/Day Years Used Date Smoking Tobacco: Never Tobacco Cessation:Counseling Given: Not Answered Alcohol Use Standard Drinks/Week Comments Never 0 (1 standard drink = 0.6 oz pur e alcohol) Caffeine: none Sex and Gender Information Value Date Recorded Sex Assigned at Not on file Legal Sex Male 6:43 PM EDT Gender Identity Not on file Sexual Orientation Not on file documented as of this encounter Plan of Treatment Upcoming Encounters Date Type Department Care Team ([facility] Contact Info) Description 10/28/2025 3:45 PM EST Office Visit [facility] [address] [facility] [address] [place] [phone] Wesley Marvin MD [address] [facility] [address] [place], [place] [phone] documented as of this encounter Visit Diagnoses Not on filedocumented in this encounter Care Teams Livestock Farmer Relationship Specialty Start Date End Date Simón Canales MD PCP - General Family Medicine 01/31/23 documented as of this encounter
--- OUTSIDE RECORDS SUMMARY | 2025-02-18 15:46 | XMS_ITS | Encounter Summary ---
Author Organization [employer] Address [id number] [address] [place] [address] Care Team Providers Care Office Worker Name Role Phone Simón Canales MD Primary Care Provider [phone] Reason for Visit * Reason Comments Med Refill Encounter Details Date Type Department Care Team (Late st Contact Info) Description 07/02/2022 Refill [facility] [address] [place] [phone] Josue Key MD [address] [place] [address] History of pulmonary embolism Social History Tobacco Use Types Packs/Day Years Used Date Smoking Tobacco: Never Smokeless Tobacco: Never Alcohol Use Standard Drinks/Week Comments Never 0 [...] Never 04/12/2021 How often do you attend baptist or caodaism serv ices? Never 04/12/2021 Do you belong to any clubs o r organizations such as baptist groups, unions, fraternal or athletic groups, or [...] Answer Date Recorded Total Score 1 04/12/2021 [facility] Occupat ional Health - Occupational Stress [...] Recorded Do you need help finding a [employer] career center and/or a training program? No 04/12/2021 Purpose - Life Answer Date Recorded I have a purpose and direction in my life. Calixto conde Agree nor Disagree 04/12/2021 Sex and Gender Information Value Date Recorded Sex Assigned at Male 04/01/2021 4:15 PM EDT Legal Sex Male 11:21 AM EDT Gender Identity Male 04/01/2021 4:15 PM EDT Sexual Orientation Not on file documented as of this encounter Plan of Treatment Not on file documented as of this encounter Goals Goal Patient Goal Type Associated Problems Recent Progress Patient-Stated? Author Discharge home General Yes Cony Gonzalez LISW Note: Evaluation of progress towards goal: Pts family plan for pt to discharge home with family support; decline need for home care services. documented as of this encounter Visit Diagnoses Diagnosis History of pulmonary embolism Personal history of venous thrombosis and embolism documented in this encounter Additional Health Concerns Assessment Noted Time PHQ-9 Depression Total Score: 1 04/12/20 21 8:12 PM EDT documented as of this encounter Care Teams Office Worker Relationship Specialty Start Date End Date Simón Canales MD PCP - General Family Medicine 06/08/20 documented as of this encounter
--- NOTE | 2025-02-18 15:47 | CT_ITS ---
The [address] [address] Patient Name: RIGO REDDY MRN: [id number] date: 1985 Sex: M Assigned Patient Location: CT Current Patient Location: CT Accession/Order Number: [id number] Exam Date: 02/18/2025 23:29 Report Date: 02/18/2025 23:32 At the request of: DENIS MELVIN MD Procedure: CT hip RT wo con CT hip RT wo con 02/18/2025 4:05 PM SIGNS AND SYMPTOMS: Hip pain acute right TECHNIQUE: Multidetector CT axial slices of the right hip without IV contrast. Multiplanar reformats were performed and viewed on a separate workstation and reviewed to further define anatomy and possible pathology. CT was performed with one or more of the following dose reduction techniques: Automated exposure control, adjustment of the mA and/or kV according to patient size, or use of iterative reconstruction technique. COMPARISON: 10/18/2024 FINDINGS: Serpiginous subcortical sclerosis is noted along the femoral head with partial collapse of the articular surface and subarticular trabecular consistent with avascular necrosis. There is mild narrowing of the right hip joint space. The visualized pelvic viscera are within normal limits. No evidence of dislocation. CT/CT hip RT wo con IMPRESSION: Serpiginous subcortical sclerosis is noted along the femoral head with partial collapse of the articular surface and subarticular trabecular consistent with avascular necrosis. Impression dictated by: Wesley Colon M.D. 02/18/2025 11:32 PM Dictation Location: [place] [address] Electronically authenticated by: [id number] Y Date: 02/18/2025 23:32
--- NOTE | 2025-02-18 15:47 | CT_ITS ---
The [address] [address] Patient Name: RIGO REDDY MRN: [id number] date: 1985 Sex: M Assigned Patient Location: CT Current Patient Location: CT Accession/Order Number: [id number] Exam Date: 02/18/2025 23:32 Report Date: 02/18/2025 23:36 At the request of: DENIS MELVIN MD Procedure: CT hip LT wo con CT hip LT wo con 02/18/2025 4:05 PM SIGNS AND SYMPTOMS: ^Hip pain acute left TECHNIQUE: Multidetector CT axial slices of the left hip without IV contrast. Multiplanar reformats were performed and viewed on a separate workstation and reviewed to further define anatomy and possible pathology. CT was performed with one or more of the following dose reduction techniques: Automated exposure control, adjustment of the mA and/or kV according to patient size, or use of iterative reconstruction technique. COMPARISON: 10/18/2024 FINDINGS: The left hip joint space shows mild narrowing. Femoral head is intact. Visualized left hemipelvis is intact. No acute displaced fracture. No dislocation. The visualized pelvic viscera are within normal limits. CT/CT hip LT wo con IMPRESSION: No acute bony injury. Mild degenerative changes are noted in the left hip joint space. Impression dictated by: Wesley Colon M.D. 02/18/2025 11:36 PM Dictation Location: [place] [address] Electronically authenticated by: [id number] Y Date: 02/18/2025 23:36
--- OUTSIDE RECORDS SUMMARY | 2025-02-18 15:47 | XMS_ITS | Clinical Summary ---
Author Organization [facility] Address [address] [place] [address] Care Team Providers Care Powder Truck Driver Name Role Phone Unavailable Primary Care Provider Unavailabl e Social History Tobacco Use Types Packs/Day Years Used Date Smoking Tobacco: Never Assessed [place] Safety & Environment Answer Date Rec orded Fear of Current or Ex-Partner Not on file Emotionally Abused Not on file 10/26/2023 Physically Abused Not on file 10/26/2023 Sexually Abused Not on file 10/26/2023 Physically or Sexually Abused Not on file Sex and Gender Information Value Date Recorded Sex Assigned at Not on file Legal Sex Male 9:18 PM EDT Gender Identity Not on file Sexual Orientation Not on file Plan of Treatment Not on file
--- OUTSIDE RECORDS SUMMARY | 2025-02-18 15:47 | XMS_ITS | Patient Health Record ---
Author Organization [facility] in [place] Address [address] [place] [address] Care Team Providers Care Damage Adjuster Name Role Phone Quinn Canales Primary Care Provider [phone] Dea Cochran Elisabeth [phone] Allergies Allergen (clinical drug ingredient) Drug/Non Drug Allergy documented on EMR Reaction Allergy Type Onset Date Status Latex Latex rash Allergy Active ciprofloxacin Ciprofloxacin hives Drug Allergy Active Results Component Value Reference Range Notes XR Chest PA and Lateral (Rou isadora CXR) * Reviewed date:08/22/2024 03:57:51 PM Interpretation: Performing Lab: Notes/Report: CT Chest w/o contrast Reviewed date:09/30/2024 08:25:35 AM Interpretation: Performing Lab: Notes/Report: XR KNEE RT 3V Reviewed date:01/14/2025 06:10:29 PM Interpretation: Performing Lab: Notes/Report: Source Facility: [place] [address] [place] [address] XRay Report Signed Patient: RIGO PALMER MR#: [id number] : 1985 Acct:[id number] Age/Sex: 39 / M ADM Date: 01/14/25 Loc: RAD Attending Dr: Denis Canales M.D. Ordering Physician: Denis Canales M.D. Date of Service: 01/14/25 Procedure(s): XR knee RT 3V Accession Number(s): [id number] cc: Denis Canales M.D. [address] [address] Patient Name: RIGO PALMER MRN: [id number]:[id number] date: 1985 Sex: M Assigned Patient Location: RAD Current Patient Location: RAD Accession/Order Number: [id number] Exam Date: 01/14/2025 17:26 Report Date: 01/14/2025 17:28 At the request of: DENIS CANALES MD Procedure: XR knee RT 3V 3 views right knee plain film COMPARISON: None HISTORY: Right knee pain ACUTE FINDINGS: No acute findings DEGENERATIVE CHANGE: Unremarkable SOFT TISSUE FINDINGS: Unremarkable JOINT EFFUSION: None POSTOP CHANGES: None BONE MINERALIZATION: Adequate XR/XR knee RT 3V IMPRESSION: Unremarkable exam Impression dictated by: Rojas Navarrete M.D. 01/14/2025 5:28 PM Dictation Location: [place] [address] Electronically authenticated by: [id number] Y Date: 01/14/2025 17:28 Dictated By: Rojas Navarrete D.O. Signed By: 01/14/25 173 DD/ 1728 TD/TT: Woods Laborer: [place] [address] XRay Report Signed Patient: RIGO PALMER MR#: [id number] : 1985 Acct:[id number] Age/Sex: 39 / M ADM Date: 01/14/25 Loc: RAD Attending Dr: Yuly Canales M.D. Ordering Physician: Denis Canales M.D. Date of Service: 01/14/25 Procedure(s): XR kne e RT 3V Accession Number(s): [id number] cc: Denis Canales M.D. [address] [address] Patient Name: RIGO PALMER MRN: [id number]:[id number] date: 1985 Sex: M Assigned Patient Location: RAD Current Patient Location: RAD Accession/Order Numb er: [id number] Exam Date: 01/14/2025 17:26 Report Date: 01/14/2025 17:28 At the request of: DENIS CANALES MD Procedure: XR knee RT 3V 3 views right knee p matthew film COMPARISON: None HISTORY: Right knee pain ACUTE FINDINGS: No a cute findings DEGENERATIVE CHANGE: Unremarkable SOFT TISSUE FINDINGS : Unremarkable JOINT EFFUSION: None POSTOP CHANGES: None BONE MINERALIZATION: Adequate X R/XR knee RT 3V IMPRESSION: Unremark able exam Impression dictated by: Rojas Navarrete M.D. 01/14/2025 5:28 PM Dictation Location: [place] [address] Electronically authenticated by: [id number] Y Date: 01/14/2025 17:28 Dictated By: Rojas Navarrete D.O. Signed By: 01/14/25 1730 DD/ 1728 TD/TT: Woods Laborer: CBC AUTO DIFF Reviewed date:04/04/2024 07:09:42 PM Interpretation: Performing Lab: Notes/Report: [facility] , White Blood Count 7.7 4.0-11.0 10 3/uL Red Blood Count 3.51 4.70-6.10 10 6/uL Hemoglobin 11.2 14.0-18.0 g/dL Hematocrit 34.6 42.0-54.0 % Mean Corpuscular Volume 98.6 80.0-94.0 fL Mean Corpuscular Hemoglobin 31.9 25.9-34.0 pg Mean Corpuscular HGB Conc 32.4 29.9-35.2 g/dL Red Cell Distribution Width 13.7 11.0-15.0 % Platelet Count 192 150-450 10 3/uL Mean Platelet Volume 10.0 9.5-13.5 fL Neutrophils Percent Auto 51.8 43.0-75.0 % Lymphocytes Percent Auto 31.2 20.5-60.0 % Monocytes Percent Auto 9.9 1.7-12.0 % Eosinophils Percent Auto 6.7 0.9-7.0 % Basophils Percent Auto 0.1 0.2-2.0 % Immature Granulocytes Pct Auto 0.3 0.0-0.5 % Neutrophils Absolute Auto 4.0 1.4-6.5 10 3/uL Lymphocytes Absolute Auto 2.4 1.2-3.8 10 3/uL Monocytes Absolute Auto 0.8 0.3-0.8 10 3/uL Eosinophils Absolute Auto 0.5 0.0-0.7 10 3/uL Basophils Absolute Auto 0.0 0.0-0.1 10 3/uL Immature Granulocytes Abs Auto 0.02 0.00-0.03 10 3/uL Performing Lab: see note ML - [facility] FREE T3 Reviewed date:04/04/2024 07:09:42 PM Interpretation: Performing Lab: Notes/Report: [facility] , Free T3 2.39 2.18-3.98 pg/mL Performing Lab: see note ML - [facility] GLYCOHEMOGLOBIN A1C Reviewed date:04/04/2024 07:09:42 PM Interpretation: Performing Lab: Notes/Report: [facility] , Glycohemoglobin A1C 5.1 4.5-6.2 % ADA RECOMMENDED LIMIT 4.0 - 6.0 ADA THERAPEUTIC TARGET < 7.0 ACTION SUGGESTED > 7.0 Estimated Average Glucose 100 Performing Lab: see note ML - [facility] LIPID PROFILE Reviewed date:04/04/2024 07:09:42 PM Interpretation: Performing Lab: Notes/Report: [facility] , Triglycerides 129 <=150 mg/dL Cholesterol 173 <=200 mg/dL HDL Cholesterol 56 40-60 mg/dL > or =60 mg/dl - LOW CARDIOVASCULAR RISK <40 mg/dl - HIGH CARDIOVASCULAR RISK LDL Cholesterol Calculated 91.2 <100 mg/dl OPTIMAL 100-129 mg/dl NEAR OR ABOVE OPTIMAL 130-159 mg/dl BORDERLINE HIGH 160-189 mg/dl HIGH >190 mg/dl VERY HIGH VLDL CHOLESTEROL 25.8 Chol HDL Ratio 3.1 3.3 - 4.4 LOW RISK 4.4 - 7.1 AVERAGE RISK 7.1 - 11.0 MODERATE RISK >11.0 HIGH RISK Performing Lab: see note - [facility] LB PROF 14(COMP METB) Reviewed date:04/04/2024 07:09:42 PM Interpretation: Performing Lab: Notes/Report: [facility] , Sodium 140 136-145 mmol/L Potassium 5.1 3.5-5.1 mmol/L Chloride 106 98-107 mmol/L Carbon Dioxide 20.8 21.0-32.0 mmol/L Anion Gap 18.3 Glucose 95 74-106 mg/dL Blood Urea Nitrogen 30.0 7.0-18.0 mg/dL Creatinine 3.76 0.70-1.30 mg/dL Estimated GFR ( Leonora 22 >=60 Estimated GFR (Non- Rachel 18 >=60 BUN Creatinine Ratio 8.0 Calcium 9.5 8.5-10.1 mg/dL Bilirubin Total 0.3 0.2-1.0 mg/dL Aspartate Amino Transferase 21 15-37 U/L Alanine Aminotransferase 28 16-63 U/L Alkaline Phosphatase 166 46-116 U/L Total Protein 7.0 6.4-8.2 g/dL Albumin Level 4.0 3.4-5.0 g/dL Globulin 3.0 Albumin Globulin Ratio 1.3 Performing Lab: see note ML - [facility] PSA SCREENING Reviewed date:04/04/2024 07:09:42 PM Interpretation: Performing Lab: Notes/Report: [facility] , Prostate Specific Antigen Scrn 0.93 <=4.00 ng/mL Performing Lab: see note ML - [facility] LB T4 Reviewed date:04/04/2024 07:09:42 PM Interpretation: Performing Lab: Notes/Report: [facility] , T4 Thyroxine 8.00 4.50-12.10 ug/dL Performing Lab: see note ML - [facility] LB TSH Reviewed date:04/04/2024 07:09:42 PM Interpretation: Performing Lab: Notes/Report: [facility] , Thyroid Stimulating Hormone 1.949 0.358-3.740 uIU/mL Performing Lab: see note ML - [facility] LB Occult Blood* Reviewed date:04/09/2024 08:33:41 PM Interpretation: Performing Lab: Notes/Report: [facility] , Occult Blood Negative Performing Lab: see note ML - [facility] LB CT chest wo con Reviewed date:10/01/2024 07:46:26 AM Interpretation: Performing Lab: Notes/Report: Source Facility: [facility]-[address] [place] [address] [place] [address] CT Scan Report Signed Patient: RIGO PALMER MR#: [id number] : 1985 Acct:[id number] Age/Sex: 39 / M ADM Date: 09/26/24 Loc: CT Attending Dr: Dea Cochran D.O. Ordering Physician: Dea Cochran D.O. Date of Service: 09/26/24 Procedure(s): CT chest wo con Accession Number(s): [id number] cc: Denis aCnales M.D. [place] [address] Patient Name: RIGO PALMER MRN: [facility]:[id number] date: 1985 Sex: M Assigned Patient Location: CT Current Patient Location: Accession/Order Number: [id number] Exam Date: 09/26/2024 15:28 Report Date: 09/27/2024 07:53 At the request of: DEA COCHRAN Procedure: CT chest wo con EXAMINATION: CT chest wo con HISTORY: Solitary Pulmonary Nodule COMPARISON: 03/18/2021, 08/22/2024 TECHNIQUE: Multi-planar CT images were created with IV contrast. Axial, Coronal, and Sagittal images. Dose reduction techniques were achieved by using automated exposure control and/or adjustment of mA and/or kV according to patient size and/or use of iterative reconstruction technique. FINDINGS: LUNGS: Severe diffuse bilateral centrilobular emphysema. Moderate diffuse bronchiectasis with peribronchial thickening. Scattered stable nodules the largest solid noncalcified nodule in the right lung measures 7.9 mm along the major fissure axial image #29. Area of ill-defined soft tissue density medial basilar segment of the left lower lobe measuring 1.8 x 1.4 cm, axial image 77 PLEURA: No mass, effusion, or pneumothorax. VASCULATURE: No abnormality. SIRENA: No mass or adenopathy. MEDIASTINUM: No mass or adenopathy. CARDIAC: No enlargement or pericardial effusion Coronary arteries: Mild calcifications AORTA: No aortic aneurysm. CHEST WALL: No mass or axillary adenopathy. BONES: No bone lesion or fracture. LIMITED ABDOMEN: Severe bilateral renal atrophy OTHER: Negative. CT/CT chest wo con IMPRESSION: Stable emphysema and scattered pulmonary nodules Lung-RADS 2 FINDINGS: Solid nodule(s): <6 mm or new <4 mm; part solid nodule(s) <6 mm total diameter on baseline screening; nonsolid nodule(s) (GGN): <20 mm or greater than/equal to 20 mm and unchanged or slowly growing; category 3 or 4 nodules unchanged for greater than/equal to 3 months. MANAGEMENT: Continue annual screening with LDCT in 12 months. Electronically authenticated by: JUSTYN ZARAGOZA Date: 09/27/2024 07:53 Dictated By: Justyn Zaragoza M.D. Signed By: 09/27/24 0756 DD/ 0753 TD/TT: Woods Laborer: [place] [address] CT Scan Report Signed Patient: RIGO PALMER MR#: [id number] : 1985 Acct:[id number] Age/Sex: 39 / M ADM Date: 09/26/24 Loc: CT Attending Dr: Dea Cochran D.O. Ordering Physician: Dea Cochran D.O. Date of Service: 09/26/24 Procedure(s): CT jose st wo con Accession Number(s): [id number] cc: Denis Canales M.D. [place] [address] Patient Name: RIGO PALMER MRN: [id number] date: 1985 Sex: M Assigned Patient Location: CT Current Patient Location: Accession/Order Numb er: [id number] Exam Date: 09/26/2024 15:28 Report Date: 09/27/2024 07:53 At the request of: DEA COCHRAN Procedure: CT chest wo con EXAMINATION: CT ches t wo con HISTORY: Solitary Pulmonary Nodule COMPARISON: 1, 08/22/2024 TECHNIQUE: Multi-renay cassidy CT images were created with IV contrast. Axial, Coronal, and Sagitta l images. Dose reduction techniques were achieved by using automated exposure control and/or adjustment of mA and/or kV according to patient size and/or use of iterative reconstruction technique. FINDINGS: LUNGS: Severe diffus e bilateral centrilobular emphysema. Moderate diffuse bronchiectasis with peribronchial thickening. Scattered stable nodules the largest solid noncalcified nodule in the right lung measures 7.9 mm along the major fissure axial image #29. Area of ill-defined soft tissue density medial basilar segment of t he left lower lobe measuring 1.8 x 1.4 cm, axial image 77 PLEURA: No mass, effusion, or pneumothorax. VASCULATURE: No abnormality. SIRENA: No mass or adenopathy. MEDIASTINUM: No mass or adenopathy. CARDIAC: No enlargem ent or pericardial effusion Coronary arteries: M ild calcifications AORTA: No aortic aneurysm. CHEST WALL: No mass or axillary adenopathy. BONES: No bone lesio n or fracture. LIMITED ABDOMEN: Sev ere bilateral renal atrophy OTHER: Negative. C T/CT chest wo con IMPRESSION: Stable emphysema and scattered pulmonary nodules Lung-RADS 2 FINDINGS: Solid nodule(s): <6 mm or new <4 mm; part solid nodule(s) <6 mm total diameter on baseline screening; nonsolid nodule(s) (GGN): <20 mm or greater than/equal to 20 mm and unchanged or slowly growing; category 3 or 4 nodules unchanged for greate r than/equal to 3 months. MANAGEMENT: Continue annual screening with LDCT in 12 months. Electronically authenticated by: JUSTYN ZARAGOZA Date: 09/27/2024 07:53 Dictated By: Oz Zaragoza M.D. Signed By: 09/27/24 0756 DD/ 0753 TD/TT: Woods Laborer: XR HAND LT MIN 3V Reviewed date:12/02/2024 09:08:20 PM Interpretation: Performing Lab: Notes/Report: Source Facility: [place] [address] [place] [address] XRay Report Signed Patient: RIGO PALMER MR#: [id number] : 1985 Acct:[id number] Age/Sex: 39 / M ADM Date: 12/02/24 Loc: EC Attending Dr: Vinod Powell M.D. Ordering Physician: Vinod Powell M.D. Date of Service: 12/02/24 Procedure(s): XR hand LT min 3V Accession Number(s): [id number] cc: Vinod Powell M.D.; Denis Canales M.D. [address] [address] Patient Name: RIGO PALMER MRN: [id number] date: 1985 Sex: M Assigned Patient Location: Current Patient Location: Accession/Order Number: [id number] Exam Date: 12/02/2024 10:13 Report Date: 12/02/2024 10:15 At the request of: VINOD POWELL MD Procedure: XR hand LT min 3V 3 views left hand plain film COMPARISON: 11/04/2024 HISTORY: Follow-up by left hand fractures ACUTE FINDINGS: Stable alignment of metacarpal fractures. Continued interval healing. DEGENERATIVE CHANGE: Moderate SOFT TISSUE FINDINGS: Unremarkable JOINT EFFUSION: None POSTOP CHANGES: None BONY MINERALIZATION: Diffuse osteopenia XR/XR hand LT min 3V IMPRESSION: Healing fractures with stable alignment Impression dictated by: Rojas Navarreet M.D.12/02/2024 10:15 AM Dictation Location: [place] [address] Electronically authenticated by: [id number] Y Date: 12/02/2024 10:15 Dictated By: Rojas Navarrete D.O. Signed By: 12/02/24 1017 DD/ 1015 TD/TT: Woods Laborer: [place] [address] XRay Report Signed Patient: RIGO PALMER MR#: [id number] : 1985 Acct:[id number] Age/Sex: 39 / M ADM Date: 12/02/24 Loc: EC Attending Dr: Vinod Powell M.D. Ordering Physician: Vinod Powell M.D. Date of Service: 12/02/24 Procedure(s): XR tabor d LT min 3V Accession Number(s): [id number] cc: Vinod Powell M.D.; Denis Canales M.D. [address] [address] Patient Name: RIGO PALMER MRN: [id number] date: 1985 Sex: M Assigned Patient Location: Current Patient Location: Accession/Order Numb er: [id number] Exam Date: 12/02/2024 10:13 Report Date: 12/02/2024 10:15 At the request of: VINOD POWELL MD Procedure: XR hand L T min 3V [address] ain film COMPARISON: 11/04/2024 HISTORY: Follow-up b y left hand fractures ACUTE FINDINGS: Stab le alignment of metacarpal fractures. Continued interval healing. DEGENERATIVE CHANGE: Moderate SOFT TISSUE FINDINGS : Unremarkable JOINT EFFUSION: None POSTOP CHANGES: None BONY MINERALIZATION: Diffuse osteopenia X R/XR hand LT min 3V IMPRESSION: Healing fractures with stable alignment Impression dictated by: Rojas Navarrete M.D.12/02/2024 10:15 AM Dictation Location: [place] [address] Electronically authenticated by: [id number] Y Date: 12/02/2024 10:15 Dictated By: Rojas Navarrete D.O. Signed By: 12/02/24 1017 DD/ 1015 TD/TT: Woods Laborer: CISCO RANDOM W or MICROSCOPIC Reviewed date:12/10/2024 08:34:25 AM Interpretation: Performing Lab: Notes/Report: [facility] , Color Urine LT. YELLOW YELLOW Clarity Urine CLEAR CLEAR Specific [place] Urine 1.015 1.005-1.025 pH Urine 7.0 5.0-9.0 Protein Urine >=300 NEG/TRACE mg/dL Glucose Urine UA NEGATIVE NEGATIVE mg/dL Bilirubin Urine NEGATIVE NEGATIVE Ketones Urine NEGATIVE NEGATIVE mg/dL Blood Urine LARGE NEGATIVE Nitrite Urine POSITIVE NEGATIVE Urobilinogen Urine 0.2 0.2-1.0 EU/dL Leukocyte Esterase Urine MODERATE NEGATIVE WBC Urine 75-100 NONE SEEN #/HPF RBC Urine >100 0-2 #/HPF Bacteria Urine NONE SEEN NONE SEEN #/HPF Mucus Urine NONE SEEN NONE SEEN Squamous Epithelial Cell Urine NONE SEEN NONE/RARE #/LPF Crystals Seen? None Seen None Seen #/HPF Cast Seen? NONE SEEN NONE SEEN #/LPF Urine Culture Indicated ALREADY ORDERED Performing Lab: see note ML - The [facility] LB BUN Reviewed date:12/30/2024 10:05:30 AM Interpretation: Performing Lab:[facility] ([facility]), [address], [place]. [address] PH:[phone] Notes/Report: BLOOD UREA NITROGEN 14 5-23 mg/dL PERFORME D AT [facility] [address] [facility] [address], [place] [address] CT ANKLE LT WO CON Reviewed date:02/13/2025 06:33:55 PM Interpretation: Performing Lab: Notes/Report: Source Facility: [place] [address] CT Scan Report Signed Patient: RIGO PALMER MR#: [id number] : 1985 Acct:[id number] Age/Sex: 39 / M ADM Date: 02/13/25 Loc: CT Attending Dr: Denis Canlaes M.D. Ordering Physician: Denis Canales M.D. Date of Service: 02/13/25 Procedure(s): CT ankle LT wo con Accession Number(s): [id number] cc: Denis Canales M.D. [place] [address] Patient Name: RIGO PALMER MRN: [id number] date: 1985 Sex: M Assigned Patient Location: CT Current Patient Location: CT Accession/Order Number: [id number] Exam Date: 02/13/2025 17:47 Report Date: 02/13/2025 17:52 At the request of: DENIS CANALES MD Procedure: CT ankle LT wo con CT of both ankles TECHNIQUE: The CT exam was performed using one or more the following dose reduction techniques: Automated exposure control, adjustment of the MA and/or Kv according to patient size, or use of the iterative reconstruction technique. COMPARISON: None HISTORY: Increasing weakness with difficulty walking. Adequate bony alignment. No acute displaced fracture. Unremarkable soft tissues. No tarsal coalition. No obvious tendinopathy. No significant spurring. No significant degeneration. CT/CT ankle LT wo con IMPRESSION: No acute bony findings or significant degeneration of the right and left ankle. Impression dictated by: Rojas Navarrete M.D. 02/13/2025 5:52 PM [facility] Electronically authenticated by: [id number] Y Date: 02/13/2025 17:52 Dictated By: Rojas Navarrete D.O. Signed By: 02/13/251754 DD/ 51 TD/TT: Woods Laborer: [place] [address] CT Scan Report Signed Patient: RIGO PALMER MR#: [id number] : 1985 Acct:[id number] Age/Sex: 39 / M ADM Date: 02/13/25 Loc: CT Attending Dr: Yuly Canales M.D. Ordering Physician: Denis Canales M.D. Date of Service: 02/13/25 Procedure(s): CT ank le LT wo con Accession Number(s): [id number] cc: Denis Canales M.D. [place] [address] Patient Name: RIGO PALMER MRN: [id number] date: 1985 Sex: M Assigned Patient Location: CT Current Patient Location: CT Accession/Order Numb er: [id number] Exam Date: 02/13/2025 17:47 Report Date: 02/13/2025 17:52 At the request of: DENIS CANALES MD Procedure: CT ankle LT wo con CT of both ankles TECHNIQUE: The CT ex am was performed using one or more the following dose reduction techniques : Automated exposure control, adjustment of the MA and/or Kv according to jair ent size, or use of the iterative reconstruction technique. COMPARISON: None HISTORY: Increasing weakness with difficulty walking. Adequate bony alignm ent. No acute displaced fracture. Unremarkable soft tissues. No tarsal coalition. No obvious tendinopathy. No significant spurring. No signifi cant degeneration. C T/CT ankle LT wo con IMPRESSION: No acute bony findings or significant degeneration of the right and left ankle. Impression dictated by: Rojas Navarrete M.D. 02/13/2025 5:52 PM Dictation Location: [email or web address] Electronically authenticated by: [id number] Y Date: 02/13/2025 17:52 Dictated By: Rojas Navarrete D.O. Signed By: 02/13/251754 DD/ 51 TD/TT: Woods Laborer: CT ANKLE RT WO CON Reviewed date:02/13/2025 06:33:55 PM Interpretation: Performing Lab: Notes/Report: Source Facility: [place] [address] CT Scan Report Signed Patient: RIGO PALMER MR#: [id number] : 1985 Acct:[id number] Age/Sex: 39 / M ADM Date: 02/13/25 Loc: CT Attending Dr: Denis Canales M.D. Ordering Physician: Denis Canales M.D. Date of Service: 02/13/25 Procedure(s): CT ankle RT wo con Accession Number(s): [id number] cc: Denis Canales M.D. [place] [address] Patient Name: RIGO PALMER MRN: [id number] date: 1985 Sex: M Assigned Patient Location: CT Current Patient Location: CT Accession/Order Number: [id number] Exam Date: 02/13/2025 17:47 Report Date: 02/13/2025 17:52 At the request of: DENIS CANALES MD Procedure: CT ankle LT wo con CT of both ankles TECHNIQUE: The CT exam was performed using one or more the following dose reduction techniques: Automated exposure control, adjustment of the MA and/or Kv according to patient size, or use of the iterative reconstruction technique. COMPARISON: None HISTORY: Increasing weakness with difficulty walking. Adequate bony alignment. No acute displaced fracture. Unremarkable soft tissues. No tarsal coalition. No obvious tendinopathy. No significant spurring. No significant degeneration. CT/CT ankle RT wo con IMPRESSION: No acute bony findings or significant degeneration of the right and left ankle. Impression dictated by: Rojas Navarrete M.D. 02/13/2025 5:52 PM Dictation Location: [email or web address] Electronically authenticated by: [id number] Y Date: 02/13/2025 17:52 Dictated By: Rojas Navarrete D.O. Signed By: 02/13/251754 DD/ 51 TD/TT: Woods Laborer: [place] [address] CT Scan Report Signed Patient: RIGO PALMER MR#: [id number] : 1985 Acct:[id number] Age/Sex: 39 / M ADM Date: 02/13/25 Loc: CT Attending Dr: Yuly Canales M.D. Ordering Physician: Denis Canales M.D. Date of Service: 02/13/25 Procedure(s): CT ank le RT wo con Accession Number(s): [id number] cc: Denis Canales M.D. [place] [address] Patient Name: RIGO PALMER MRN: [id number] date: 1985 Sex: M Assigned Patient Location: CT Current Patient Location: CT Accession/Order Numb er: [id number] Exam Date: 02/13/2025 17:47 Report Date: 02/13/2025 17:52 At the request of: DENIS CANALES MD Procedure: CT ankle LT wo con CT of both ankles TECHNIQUE: The CT ex am was performed using one or more the following dose reduction techniques : Automated exposure control, adjustment of the MA and/or Kv according to jair ent size, or use of the iterative reconstruction technique. COMPARISON: None HISTORY: Increasing weakness with difficulty walking. Adequate bony alignm ent. No acute displaced fracture. Unremarkable soft tissues. No tarsal coalition. No obvious tendinopathy. No significant spurring. No signifi cant degeneration. C T/CT ankle RT wo con IMPRESSION: No acute bony findings or significant degeneration of the right and left ankle. Impression dictated by: Rojas Navarrete M.D. 02/13/2025 5:52 PM Dictation Location: [email or web address] Electronically authenticated by: [id number] Y Date: 02/13/2025 17:52 Dictated By: Rojas Navarrete D.O. Signed By: 02/13/251754 DD/ 51 TD/TT: Woods Laborer: CISCO RANDOM W or MICROSCOPIC Reviewed date:01/07/2025 09:20:25 AM Interpretation: Performing Lab: Notes/Report: [facility] , Color Urine YELLOW YELLOW Clarity Urine CLEAR CLEAR Specific [place] Urine 1.010 1.005-1.025 pH Urine 6.0 5.0-9.0 Protein Urine 30 NEG/TRACE mg/dL Glucose Urine UA NEGATIVE NEGATIVE mg/dL Bilirubin Urine NEGATIVE NEGATIVE Ketones Urine NEGATIVE NEGATIVE mg/dL Blood Urine SMALL NEGATIVE Nitrite Urine NEGATIVE NEGATIVE Urobilinogen Urine 0.2 0.2-1.0 EU/dL Leukocyte Esterase Urine LARGE NEGATIVE WBC Urine 75-100 NONE SEEN #/HPF RBC Urine NONE SEEN 0-2 #/HPF Bacteria Urine LARGE NONE SEEN #/HPF Mucus Urine NONE SEEN NONE SEEN Squamous Epithelial Cell Urine NONE SEEN NONE/RARE #/LPF Crystals Seen? None Seen None Seen #/HPF Cast Seen? NONE SEEN NONE SEEN #/LPF Urine Culture Indicated ALREADY ORDERED Performing Lab: see note ML - [facility] LB XR HAND LT MIN 3V Reviewed date:12/30/2024 07:21:18 PM Interpretation: Performing Lab: Notes/Report: Source Facility: [facility]-[address] [place] [address] [place] [address] XRay Report Signed Patient: RIGO PALMER MR#: [id number] : 1985 Acct:[id number] Age/Sex: 39 / M ADM Date: 12/30/24 Loc: EC Attending Dr: Vinod Powell M.D. Ordering Physician: Vinod Powell M.D. Date of Service: 12/30/24 Procedure(s): XR hand LT min 3V Accession Number(s): [id number] cc: Vinod Powell M.D.; Denis Canales M.D. [place] [address] Patient Name: RIGO PALMER MRN: [id number] date: 1985 Sex: M Assigned Patient Location: Current Patient Location: EC Accession/Order Number: [id number] Exam Date: 12/30/2024 15:27 Report Date: 12/30/2024 15:28 At the request of: VINOD POWELL MD Procedure: XR hand LT min 3V LEFT HAND - 3 views REASON FOR EXAM: Follow-up fifth metacarpal fracture COMPARISON: Left hand 12/02/2024 FINDINGS: Fractures involving the second through fifth metacarpals grossly unchanged alignment with interval sclerosis/callus formation suggestive of healing response. XR/XR hand LT min 3V IMPRESSION: HEALING METACARPAL FRACTURES. Impression dictated by: Maurilio Art Jr., D.O. 12/30/2024 3:28 PM Dictation Location: [place] [address] Electronically authenticated by: [id number] Y Date: 12/30/2024 15:28 Dictated By: Maurilio Art M.D. Signed By: 12/30/24 1531 DD/ 1528 TD/TT: Woods Laborer: [place] [address] XRay Report Signed Patient: RIGO PALMER MR#: [id number] : 1985 Acct:[id number] Age/Sex: 39 / M ADM Date: 12/30/24 Loc: EC Attending Dr: Vinod oPwell M.D. Ordering Physician: Vinod Powell M.D. Date of Service: 12/30/24 Procedure(s): XR tabor d LT min 3V Accession Number(s): [id number] cc: Vinod Powell M.D.; Denis Canales M.D. The [address] [address] Patient Name: RIGO PALMER MRN: [id number] date: 1985 Sex: M Assigned Patient Location: Current Patient Location: Accession/Order Numb er: [id number] Exam Date: 12/30/2024 15:27 Report Date: 12/30/2024 15:28 At the request of: VINOD POWELL MD Procedure: XR hand L T min 3V LEFT HAND - 3 views REASON FOR EXAM: Follow-up fifth metacarpal fracture COMPARISON: Left tabor d 12/02/2024 FINDINGS: Fractures involving the second through fifth metacarpals grossly unchanged alignment with inter ramon sclerosis/callus formation suggestive of healing response. X R/XR hand LT min 3V IMPRESSION: HEALING METACARPAL FRACTURES. Impression dictated by: Maurilio Art Jr., D.O. 12/30/2024 3:28 PM Dictation Location: [place] [address] Electronically authenticated by: [id number] Y Date: 12/30/2024 15:28 Dictated By: Maurilio Art M.D. Signed By: 12/30/24 1531 DD/ 1528 TD/TT: Woods Laborer: BUCKY Reviewed date:12/30/2024 10:19:40 AM Interpretation: Performing Lab:[facility] ([facility]), [address] [place] [address], [address] [place] [address]. [address] PH:[phone] Notes/Report: BLOOD UREA NITROGEN 67 5-23 mg/dL PERFORME D AT [address] [place] [address] Urine Culture - [facility] Reviewed date:12/12/2024 08:04:01 PM Interpretation: Performing Lab: Notes/Report: [facility] , Urine Culture - [facility] See Below For Report Urine Culture - [facility] <9,000 colonies/ml mixed Urine Culture - [facility] bacterial skin contaminants Urine Culture - [facility] <9,000 colonies/ml mixed Urine Culture - [facility] 2 Days Urine Culture - [facility] <9,000 colonies/ml mixed Urine Culture - [facility] Urine Culture - [facility] <9,000 colonies/ml mixed Urine Culture - [facility] Testing performed a [facility] Urine Culture - [facility] <9,000 colonies/ml mixed Urine Culture - [facility] [address] [place] [address] Urine Culture - [facility] <9,000 colonies/ml mixed Performing Lab: see note ML - [facility] LB XR HAND LT MIN 3V Reviewed date:11/04/2024 09:00:17 PM Interpretation: Performing Lab: Notes/Report: Source Facility: [place] [address] [place] [address] XRay Report Signed Patient: RIGO PALMER MR#: [id number] : 1985 Acct:[id number] Age/Sex: 39 / M ADM Date: 11/04/24 Loc: EC Attending Dr: Vinod Powell M.D. Ordering Physician: Vinod Powell M.D. Date of Service: 11/04/24 Procedure(s): XR hand LT min 3V Accession Number(s): [id number] cc: Vinod Powell M.D.; Denis Canales M.D. The [place] [address] Patient Name: RIGO PALMER MRN: [id number] date: 1985 Sex: M Assigned Patient Location: Current Patient Location: Accession/Order Number: [id number] Exam Date: 11/04/2024 16:56 Report Date: 11/04/2024 16:58 At the request of: VINOD POWELL MD Procedure: XR hand LT min 3V LEFT HAND - 3 views REASON FOR EXAM: Follow-up hand fracture COMPARISON: Left hand series 10/28/2024 FINDINGS: Splint material is in place. The patient's known metacarpal fractures are grossly unchanged in alignment with fracture lines less conspicuous suggestive of healing response. No new fractures are seen. XR/XR hand LT min 3V IMPRESSION: HEALING METACARPAL FRACTURES. Impression dictated by: Maurilio Art Jr., D.O.11/04/2024 4:58 PM Dictation Location: [place] [address] Electronically authenticated by: [id number] Y Date: 11/04/2024 16:58 Dictated By: Maurilio Art M.D. Signed By: 11/04/24 1700 DD/ 57 TD/TT: Woods Laborer: The [place] [id number] XRay Report Signed Patient: RIGO PALMER MR#: [id number] : 1985 Acct:[id number] Age/Sex: 39 / M ADM Date: 11/04/24 Loc: EC Attending Dr: Vinod Powell M.D. Ordering Physician: Vinod Powell M.D. Date of Service: 11/04/24 Procedure(s): XR tabor d LT min 3V Accession Number(s): [id number] cc: Vinod Powell M.D.; Denis Canales M.D. [place] [address] Patient Name: RIGO PALMER MRN: [id number] date: 1985 Sex: M Assigned Patient Location: Current Patient Location: Accession/Order Numb er: [id number] Exam Date: 11/04/2024 16:56 Report Date: 11/04/2024 16:58 At the request of: VINOD POWELL MD Procedure: XR hand L T min 3V LEFT HAND - 3 views REASON FOR EXAM: Follow-up hand fracture COMPARISON: Left tabor d series 10/28/2024 FINDINGS: Splint material is i n place. The patient's known metacarpal fractures are grossly unchanged in alignment with fracture lines less conspicuous suggestive of healing response. No new fractures are seen. X R/XR hand LT min 3V IMPRESSION: HEALING METACARPAL FRACTURES. Impression dictated by: Reagan Knapp Jr.OIsidra11/04/2024 4:58 PM Dictation Location: [place] [address] Electronically authenticated by: [id number] Y Date: 11/04/2024 16:58 Dictated By: Maurilio Art M.D. Signed By: 11/04/24 170 DD/ 57 TD/TT: Woods Laborer: XR HAND LT MIN 3V Reviewed date:10/28/2024 01:57:13 PM Interpretation: Performing Lab: Notes/Report: Source Facility: [facility]-[address] [place] [address] [address] [place] [address] XRay Report Signed Patient: RIGO PALMER MR#: [id number] : 1985 Acct:[id number] Age/Sex: 39 / M ADM Date: 10/28/24 Loc: EC Attending Dr: Vinod Powell M.D. Ordering Physician: Vinod Powell M.D. Date of Service: 10/28/24 Procedure(s): XR hand LT min 3V Accession Number(s): [id number] cc: Vinod Powell M.D.; Denis Canales M.D. The [address] [address] Patient Name: RIGO PALMER MRN: [id number] date: 1985 Sex: M Assigned Patient Location: Current Patient Location: ED.MAIN Accession/Order Number: [id number] Exam Date: 10/28/2024 11:30 Report Date: 10/28/2024 11:33 At the request of: VINOD POWELL MD Procedure: XR hand LT min 3V LEFT HAND - 3 views CLINICAL DATA: Left hand pain following fall. Follow-up metacarpal fractures COMPARISON: 10/18/2024 AP, lateral and oblique views were obtained. There is osteopenia. There is artifact from a volar splint. Fractures are again seen at the bases of the first through fifth metacarpals. There is similar mild displacement. No obvious developing callus formation is noted. There is no new fracture or dislocation. Dorsal soft tissue swelling is present over the hand. XR/XR hand LT min 3V IMPRESSION: STABLE FRACTURES INVOLVING THE PROXIMAL METACARPALS Impression dictated by: Holli Alfonso M.D.10/28/2024 11:33 AM Dictation Location: [place] [address] Electronically authenticated by: [id number] Y Date: 10/28/2024 11:33 Dictated By: Holli Alfonso M.D. Signed By: 10/28/24 1135 DD/ 1133 TD/TT: Woods Laborer: The [address] [address] XRay Report Signed Patient: RIGO PALMER MR#: [id number] : 1985 Acct:[id number] Age/Sex: 39 / M ADM Date: 10/28/24 Loc: EC Attending Dr: Vinod Powell M.D. Ordering Physician: Vinod Powell M.D. Date of Service: 10/28/24 Procedure(s): XR tabor d LT min 3V Accession Number(s): [id number] cc: Vinod Powell M.D.; Denis Canales M.D. [place] [address] Patient Name: RIGO PALMER MRN: [id number] date: 1985 Sex: M Assigned Patient Location: Current Patient Location: ED.MAIN Accession/Order Numb er: [id number] Exam Date: 10/28/2024 11:30 Report Date: 10/28/2024 11:33 At the request of: VINOD POWELL MD Procedure: XR hand L T min 3V LEFT HAND - 3 views CLINICAL DATA: Left hand pain following fall. Follow-up metacarpal fractures COMPARISON: 10/18/2024 AP, lateral and obli que views were obtained. There is osteopenia. There is artifact from a vola r splint. Fractures are again seen at the bases of the first through fifth metacarpals. There is similar mild displacement. No obvious developing callus formation is noted. There is no new fracture or dislocation. Dorsal soft tissue swelling is present over the hand. X R/XR hand LT min 3V IMPRESSION: STABLE FRACTURES INVOLVING THE PROXIMAL METACARPALS Impression dictated by: Holli Alfonso M.D.10/28/2024 11:33 AM Dictation Location: [place] [address] Electronically authenticated by: [id number] Y Date: 10/28/2024 11:33 Dictated By: Holli Alfonso M.D. Signed By: 10/28/24 1135 DD/ 1133 TD/TT: Woods Laborer: XR hip BI w PEL 1V Reviewed date:10/19/2024 01:53:46 PM Interpretation: Performing Lab: Notes/Report: Source Facility: [place] [address] [place] [address] XRay Report Signed Patient: RIGO PALMER MR#: [id number] : 1985 Acct:[id number] Age/Sex: 39 / M ADM Date: 10/18/24 Loc: ER Attending Dr: Ordering Physician: Bettye Medeiros Date of Service: 10/18/24 Procedure(s): XR hip BI w PEL 1V Accession Number(s): [id number] cc: Bettye Medeiros; Denis Canales M.D. The [place] [address] Patient Name: RIGO PALMER MRN: [id number] date: 1985 Sex: M Assigned Patient Location: ED.MAIN Current Patient Location: Accession/Order Number: [id number] Exam Date: 10/18/2024 18:44 Report Date: 10/18/2024 21:23 At the request of: BETTYE MEDEIROS Procedure: XR hip BI w PEL 1V EXAM: XR hip BI w PEL 1V HISTORY: fall COMPARISON: None. TECHNIQUE: 5 views of bilateral hips FINDINGS: No acute fracture seen. Joint alignment is normal. Joint spaces are preserved. Soft tissues appear unremarkable. XR/XR hip BI w PEL 1V IMPRESSION: No acute fracture amount. Electronically authenticated by: MARJORIE COE Date: 10/18/2024 21:23 Dictated By: Marjorie Coe M.D. Signed By: 10/18/242125 DD/ 22 TD/TT: Woods Laborer: [place] [address] XRay Report Signed Patient: RIGO PALMER MR#: [id number] : 1985 Acct:[id number] Age/Sex: 39 / M ADM Date: 10/18/24 Loc: ER Attending Dr: Ordering Physician: Bettye Medeiros Date of Service: 10/18/24 Procedure(s): XR hip BI w PEL 1V Accession Number(s): [id number] cc: Bettye Medeiros; Denis Canales M.D. The [place] [id number] Patient Name: RIGO PALMER MRN: [id number] date: 1985 Sex: M Assigned Patient Location: ED.MAIN Current Patient Location: Accession/Order Numb er: [id number] Exam Date: 10/18/2024 18:44 Report Date: 10/18/2024 21:23 At the request of: BETTYE MEDEIROS Procedure: XR hip BI w PEL 1V EXAM: XR hip BI w PEL 1V HISTORY: fall COMPARISON: None. TECHNIQUE: 5 views o f bilateral hips FINDINGS: No acute fracture seen. Joint alignment is normal. Joint spaces are preserved. Soft tiss ues appear unremarkable. X R/XR hip BI w PEL 1V IMPRESSION: No acute fracture amount. Electronically authenticated by: MARJORIE COE Date: 10/18/2024 21:23 Dictated By: Marjorie Coe M.D. Signed By: 10/18/242125 DD/ 22 TD/TT: Woods Laborer: CT head/brain wo con Reviewed date:10/19/2024 01:53:46 PM Interpretation: Performing Lab: Notes/Report: Source Facility: [place] [address] [place] [address] CT Scan Report Signed Patient: RIGO PALMER MR#: [id number] : 1985 Acct:[id number] Age/Sex: 39 / M ADM Date: 10/18/24 Loc: ER Attending Dr: Ordering Physician: Bettye Medeiros Date of Service: 10/18/24 Procedure(s): CT head/brain wo con Accession Number(s): [id number] cc: Denis Canales M.D. [place] [address] Patient Name: RIGO PALMER MRN: [facility]:[id number] date: 1985 Sex: M Assigned Patient Location: ED.MAIN Current Patient Location: ED.MAIN Accession/Order Number: [id number] Exam Date: 10/18/2024 18:44 Report Date: 10/18/2024 20:35 At the request of: BETTYE MEDEIROS Procedure: CT head/brain wo con EXAMINATION: CT head/brain wo con HISTORY: fall COMPARISON: None. TECHNIQUE: CT head without intravenous contrast. Dose reduction techniques were achieved by using: automated exposure control and/or adjustment of mA and /or kV according to patient size and/or use of iterative reconstruction technique. FINDINGS: There is moderate prominence of the ventricles and sulci. There is no evidence for acute intracranial hemorrhage. There is mild hypoattenuation in the supratentorial white matter, most compatible with chronic microvascular ischemia. There is no mass effect or midline shift. There are no abnormal extraaxial fluid collections. CT/CT head/brain wo con IMPRESSION: Negative for acute intracranial hemorrhage or convincing acute intracranial process. There is moderate ventriculomegaly, which could be from central cerebral atrophy without overt hydrocephalus. Electronically authenticated by: RIGO RUFF Date: 10/18/2024 20:35 Dictated By: Rigo Ruff M.D. Signed By: 10/18/242037 DD/ 34 TD/TT: Woods Laborer: [place] [address] CT Scan Report Signed Patient: RIGO PALMER MR#: [id number] : 1985 Acct:[id number] Age/Sex: 39 / M ADM Date: 10/18/24 Loc: ER Attending Dr: Ordering Physician: Bettye Medeiros Date of Service: 10/18/24 Procedure(s): CT head/brain wo con Accession Number(s): [id number] cc: Denis Canales M.D. [place] [id number] Patient Name: RIGO PALMER MRN: [id number] date: 1985 Sex: M Assigned Patient Location: ED.MAIN Current Patient Location: ED.MAIN Accession/Order Numb er: [id number] Exam Date: 10/18/2024 18:44 Report Date: 10/18/2024 20:35 At the request of: BETTYE MEDEIROS Procedure: CT head/b rain wo con EXAMINATION: CT head/brain wo con HISTORY: fall COMPARISON: None. TECHNIQUE: CT head without intravenous contrast. Dose reduction techniques were achieved by using: automated exposure control and/or adjustment of mA and /or kV according to patient size and/or use of iterative reconstruc tion technique. FINDINGS: There is moderate prominence of the ventricles and sulci. There is no evidence for acute intracranial hemorrhage. There is mild hypoattenuation in the supratentorial w sea matter, most compatible with chronic microvascular ischemia. There is n o mass effect or midline shift. There are no abnormal extraaxial fluid collections. C T/CT head/brain wo con IMPRESSION: Negative for acute intracranial hemorrhage or convincing acute intracranial process. There is moderate ventriculomegaly, which could be from central cerebral atrophy without over t hydrocephalus. Electronically authenticated by: RIGO RUFF Date: 10/18/2024 20:35 Dictated By: Lali Ruff M.D. Signed By: 10/18/242037 DD/ 34 TD/TT: Woods Laborer: CT chest wo con Reviewed date:10/19/2024 01:53:46 PM Interpretation: Performing Lab: Notes/Report: Source Facility: [place] [address] [place] [address] CT Scan Report Signed Patient: RIGO PALMER MR#: [id number] : 1985 Acct:[id number] Age/Sex: 39 / M ADM Date: 10/18/24 Loc: ER Attending Dr: Ordering Physician: Bettye Medeiros Date of Service: 10/18/24 Procedure(s): CT chest wo con Accession Number(s): [id number] cc: Denis Canales M.D. [place] [address] Patient Name: RIGO PALMER MRN: [facility]:[id number] date: 1985 Sex: M Assigned Patient Location: ER Current Patient Location: ER Accession/Order Number: [id number] Exam Date: 10/18/2024 19:15 Report Date: 10/18/2024 22:08 At the request of: BETTYE MEDEIROS Procedure: CT chest wo con CT CHEST WITHOUT CONTRAST. HISTORY: fall COMPARISON: CT chest dated 09/26/2024 TECHNIQUE: Unenhanced chest CT including axial, sagittal and coronal reformatted images. FINDINGS: LUNGS: Redemonstrated severe emphysema. No airspace disease. There are no pleural effusions. No pneumothorax. AORTA: No aortic aneurysm. LYMPH NODES: No enlarged mediastinal lymph nodes by CT criteria. HEART: Normal size. No pericardial effusion. Coronary artery calcification. UPPER ABDOMEN: Cholelithiasis. MUSCULOSKELETAL: Axial skeleton shows no acute abnormality. CT/CT chest wo con IMPRESSION: No acute traumatic injury in the chest. No evidence of acute rib fracture. No airspace disease. Electronically authenticated by: LES WICK Date: 10/18/2024 22:08 Dictated By: Les Wick M.D. Signed By: 10/18/242210 DD/ 07 TD/TT: Woods Laborer: [place] [address] CT Scan Report Signed Patient: RIGO PALMER MR#: [id number] : 1985 Acct:[id number] Age/Sex: 39 / M ADM Date: 10/18/24 Loc: ER Attending Dr: Ordering Physician: Bettye Medeiros Date of Service: 10/18/24 Procedure(s): CT jose st wo con Accession Number(s): [id number] cc: Denis Canales M.D. [place] [id number] Patient Name: RIGO PALMER MRN: [id number] date: 1985 Sex: M Assigned Patient Location: ER Current Patient Location: ER Accession/Order Numb er: [id number] Exam Date: 10/18/2024 19:15 Report Date: 10/18/2024 22:08 At the request of: BETTYE MEDEIROS Procedure: CT chest wo con CT CHEST WITHOUT CONTRAST. HISTORY: fall COMPARISON: CT chest dated 09/26/2024 TECHNIQUE: Unenhance d chest CT including axial, sagittal and coronal reformatted images. FINDINGS: LUNGS: Redemonstrate d severe emphysema. No airspace disease. There are no pleural effusions. N o pneumothorax. AORTA: No aortic aneurysm. LYMPH NODES: No enla rged mediastinal lymph nodes by CT criteria. HEART: Normal size. No pericardial effusion. Coronary artery calcification. UPPER ABDOMEN: Cholelithiasis. MUSCULOSKELETAL: Axi al skeleton shows no acute abnormality. C T/CT chest wo con IMPRESSION: No acute traumatic injury in the chest. No evidence of acute rib fracture. No airspace disease. Electronically authenticated by: LES WICK Date: 10/18/2024 22:08 Dictated By: Miranda Wick M.D. Signed By: 10/18/242210 DD/ 07 TD/TT: Woods Laborer: XR HAND LT MIN 3V Reviewed date:10/19/2024 01:53:46 PM Interpretation: Performing Lab: Notes/Report: Source Facility: [place] [address] XRay Report Signed Patient: RIGO PALMER MR#: [id number] : 1985 Acct:[id number] Age/Sex: 39 / M ADM Date: 10/18/24 Loc: ER Attending Dr: Ordering Physician: Bettye Medeiros Date of Service: 10/18/24 Procedure(s): XR hand LT min 3V Accession Number(s): [id number] cc: Bettye Medeiros; Denis Canales M.D. [place] [id number] Patient Name: RIGO PALMER MRN: [id number] date: 1985 Sex: M Assigned Patient Location: ED.MAIN Current Patient Location: ER Accession/Order Number: [id number] Exam Date: 10/18/2024 18:44 Report Date: 10/18/2024 21:41 At the request of: BETTYE MEDEIROS Procedure: XR hand LT min 3V EXAM: XR hand LT min 3V HISTORY: fall COMPARISON: None. TECHNIQUE: 3 views of the left hand FINDINGS: Acute mildly impacted and mildly displaced fractures of the base of the first, second, third, fourth and fifth metacarpals is seen. Joint alignment is normal. Joint spaces are preserved. Soft tissue swelling is seen. XR/XR hand LT min 3V IMPRESSION: Acute mildly impacted and mildly displaced fractures of the base of the first, second, third, fourth and fifth metacarpals Electronically authenticated by: MARJORIE COE Date: 10/18/2024 21:41 Dictated By: Marjorie Coe M.D. Signed By: 10/18/242142 DD/ 40 TD/TT: Woods Laborer: [place] [address] XRay Report Signed Patient: RIGO PALMER MR#: [id number] : 1985 Acct:[id number] Age/Sex: 39 / M ADM Date: 10/18/24 Loc: ER Attending Dr: Ordering Physician: Bettye Medeiros Date of Service: 10/18/24 Procedure(s): XR tabor d LT min 3V Accession Number(s): [id number] cc: Bettye Medeiros; Denis Canales M.D. [address] [address] Patient Name: RIGO PALMER MRN: [id number] date: 1985 Sex: M Assigned Patient Location: ED.MAIN Current Patient Location: ER Accession/Order Numb er: [id number] Exam Date: 10/18/2024 18:44 Report Date: 10/18/2024 21:41 At the request of: BETTYE MEDEIROS Procedure: XR hand L T min 3V EXAM: XR hand LT min 3V HISTORY: fall COMPARISON: None. TECHNIQUE: 3 views o f the left hand FINDINGS: Acute mild ly impacted and mildly displaced fractures of the base of the first, second, third, fourth and fifth metacarpals is seen. Joint alignment is normal. Joint spa mariam are preserved. Soft tissue swelling is seen. X R/XR hand LT min 3V IMPRESSION: Acute mildly impacte d and mildly displaced fractures of the base of the first, second, third, fourt h and fifth metacarpals Electronically authenticated by: MARJORIE COE Date: 10/18/2024 21:41 Dictated By: Marjorie Coe M.D. Signed By: 10/18/242142 DD/ 40 TD/TT: Woods Laborer: XR chest 2V Reviewed date:08/26/2024 07:08:01 AM Interpretation: Performing Lab: Notes/Report: Source Facility: [place] [address] XRay Report Signed Patient: RIGO PALMER MR#: [id number] : 1985 Acct:[id number] Age/Sex: 38 / M ADM Date: 08/22/24 Loc: RAD Attending Dr: Dea Cochran D.O. Ordering Physician: Dea Cochran D.O. Date of Service: 08/22/24 Procedure(s): XR chest 2V Accession Number(s): [id number] cc: Denis Canales M.D.; Dea Cochran D.O. The [place] [address] Patient Name: RIGO PALMER MRN: [id number] date: 1985 Sex: M Assigned Patient Location: [facility] Current Patient Location: [facility] Accession/Order Number: [id number] Exam Date: 08/22/2024 15:23 Report Date: 08/22/2024 15:45 At the request of: DEA COCHRAN Procedure: XR chest 2V EXAM: CHEST 2 VIEWS HISTORY: Acute Cough TECHNIQUE: PA and lateral views chest. COMPARISON: None. FINDINGS: The lungs are hyperinflated with background emphysema that is worse in the right upper lobe. There is no focal lung consolidation, pleural effusion or pneumothorax. There is a vague 8 mm nodule in the right upper lobe. Pulmonary vasculature is within normal limits. The cardiomediastinal silhouette is normal. XR/XR chest 2V IMPRESSION: 1. Chronic obstructive pulmonary disease without focal consolidation or effusion. Recommend followup imaging if symptoms worsen or persist. 2. Vague 8 mm nodule in the right upper lobe. Given background emphysema, recommend nonemergent/outpatient chest CT for further evaluation. Electronically authenticated by: NANCY HO Date: 08/22/2024 15:45 Dictated By: Nancy Ho M.D. Signed By: 08/22/24 1548 DD/ 1545 TD/TT: Woods Laborer: [place] [address] XRay Report Signed Patient: RIGO PALMER MR#: [id number] : 1985 Acct:[id number] Age/Sex: 38 / M ADM Date: 08/22/24 Loc: RAD Attending Dr: Dea Cochran D.O. Ordering Physician: Dea Cochran D.O. Date of Service: 08/22/24 Procedure(s): XR jose st 2V Accession Number(s): [id number] cc: Denis Canales M.D. ; Dea Cochran D.O. [place] [id number] Patient Name: RIGO PALMER MRN: [id number] date: 1985 Sex: M Assigned Patient Location: [facility] Current Patient Location: [facility] Accession/Order Numb er: [id number] Exam Date: 15:23 Report Date: 08/22/2024 15:45 At the request of: DEA COCHRAN Procedure: XR chest 2V EXAM: CHEST 2 VIEWS HISTORY: Acute Cough TECHNIQUE: PA and lateral views chest. COMPARISON: None. FINDINGS: The lungs are hyperinflated with background emphysema that is worse in the right upper lobe. Th ere is no focal lung consolidation, pleural effusion or pneumothorax. There is a vague 8 mm nodule in the right upper lobe. Pulmonary vasculature is withi n normal limits. The cardiomediastinal silhouette is normal. X R/XR chest 2V IMPRESSION: 1. Chronic obstructi ve pulmonary disease without focal consolidation or effusion. Recommend followup imaging if symptoms worsen or persist. 2. Vague 8 mm nodule in the right upper lobe. Given background emphysema, recommend nonemergent/outpatient chest CT for further evaluation. Electronically authenticated by: NANCY HO Date: 08/22/2024 15:45 Dictated By: Nancy Ho M.D. Signed By: 08/22/24 1548 DD/ 1545 TD/TT: [facility] Laborer: Urine [facility] - [facility] Reviewed date:01/09/2025 02:58:25 PM Interpretation: Performing Lab: Notes/Report: [facility] , Urine Culture - [facility] See Below For Report Urine Culture - [facility] Testing performed at [facility] O:ECESBL Isolated Urine Culture - [facility] [place] Count Organism: 1.1 Antibiotic Interpretation TRINA Status Urine Culture - [facility] [address] [place] [address] Urine Culture - [facility] Testing performed at [facility] O:ECESBL Isolated Urine Culture - [facility] [place] Count Organism: 1.1 Antibiotic Interpretation TRINA Status Urine Culture - [facility] See Below For Report Urine Culture - [facility] Testing performed at [facility] O:ECESBL Isolated Urine Culture - [facility] [place] Count Organism: 1.1 Antibiotic Interpretation TRINA Status Urine Culture - [facility] See Below For Report Urine Culture [facility] Testing performed at [facility] O:ECESBL Isolated Urine Culture - [facility] [place] Count Organism: 1.1 Antibiotic Interpretation TRINA Status Urine Culture - [facility] >100,000 [facility]rine Culture [facility] Testing performed at [facility] O:ECESBL Isolated Urine Culture - [facility] [place] Count Organism: 1.1 Antibiotic Interpretation TRINA Status Urine Culture - [facility] See Below For Report Urine Culture - [facility] Testing performed at [facility] O:ECESBL Isolated Urine Culture - [facility] [place] Count Organism: 1.1 Antibiotic Interpretation RTINA Status Urine Culture - [facility] Amikacin S F Urine Culture - [facility] Testing performed at [facility] O:ECESBL Isolated Urine Culture - [facility] [place] Count Organism: 1.1 Antibiotic Interpretation TRINA Status Urine Culture - [facility] Amoxicillin/Clavula karthik S F Urine Culture - [facility] Testing performed at [facility] O:ECESBL Isolated Urine Culture - [facility] [place] Count Organism: 1.1 Antibiotic Interpretation TRINA Status Urine Culture - [facility] Ampicillin R F Urine Culture - [facility] Testing performed at [facility] O:ECESBL Isolated Urine Culture - [facility] [place] Count Organism: 1.1 Antibiotic Interpretation TRINA Status Urine Culture [facility] Aztreonam R F Urine Culture [facility] Testing performed at [facility] O:ECESBL Isolated Urine Culture - [facility] [place] Count Organism: 1.1 Antibiotic Interpretation TRINA Status Urine Culture [facility] Ceftazidime R F Urine Culture - [facility] Testing performed at [facility] O:ECESBL Isolated Urine Culture - [facility] [place] Count Organism: 1.1 Antibiotic Interpretation TRINA Status Urine Culture - [facility] Ceftazidime/Avibact am S F Urine Culture - [facility] Testing performed at [facility] O:ECESBL Isolated Urine Culture - [facility] [place] Count Organism: 1.1 Antibiotic Interpretation TRINA Status Urine Culture - [facility] Ceftolozane/Tazobac horn S F Urine Culture - [facility] Testing performed at [facility] O:ECESBL Isolated Urine Culture - [facility] [place] Count Organism: 1.1 Antibiotic Interpretation TRINA Status Urine Culture - [facility] Ciprofloxacin R F Urine Culture - [facility] Testing performed at [facility] O:ECESBL Isolated Urine Culture - [facility] [place] Count Organism: 1.1 Antibiotic Interpretation TRINA Status Urine Culture [facility] Ertapenem S F Urine Culture - [facility] Testing performed at [facility] O:ECESBL Isolated Urine Culture - [facility] [place] Count Organism: 1.1 Antibiotic Interpretation TRINA Status Urine Culture [facility] Gentamicin R F Urine Culture [facility] Testing performed at [facility] O:ECESBL Isolated Urine Culture - [facility] [place] Count Organism: 1.1 Antibiotic Interpretation TRINA Status Urine Culture - [facility] Levofloxacin R F Urine Culture [facility] Testing performed at [facility] O:ECESBL Isolated Urine Culture - [facility] [place] Count Organism: 1.1 Antibiotic Interpretation TRINA Status Urine Culture [facility] Meropenem S F Urine Culture [facility] Testing performed at [facility] O:ECESBL Isolated Urine Culture - [facility] [place] Count Organism: 1.1 Antibiotic Interpretation TRINA Status Urine Culture - [facility] Meropenem/Vaborbact am S F Urine Culture [facility] Testing performed at [facility] O:ECESBL Isolated Urine Culture - [facility] [place] Count Organism: 1.1 Antibiotic Interpretation TRINA Status Urine Culture [facility] Nitrofurantoin S F Urine Culture [facility] Testing performed at [facility] O:ECESBL Isolated Urine Culture - [facility] [place] Count Organism: 1.1 Antibiotic Interpretation TRINA Status Urine Culture [facility] Tetracycline R F Urine Culture [facility] Testing performed at [facility] O:ECESBL Isolated Urine Culture - [facility] [place] Count Organism: 1.1 Antibiotic Interpretation TRINA Status Urine Culture [facility] Tigecycline S F Urine Culture [facility] Testing performed at [facility] O:ECESBL Isolated Urine Culture - [facility] [place] Count Organism: 1.1 Antibiotic Interpretation TRINA Status Urine Culture [facility] Tobramycin R F Urine Culture [facility] Testing performed at [facility] O:ECESBL Isolated Urine Culture - [facility] [place] Count Organism: 1.1 Antibiotic Interpretation TRINA Status Urine Culture [facility] Ampicillin/Sulbactam R F Urine Culture [facility] Testing performed at [facility] O:ECESBL Isolated Urine Culture - [facility] [place] Count Organism: 1.1 Antibiotic Interpretation TRINA Status Urine Culture - [facility] Cefazolin R F Urine Culture [facility] Testing performed at [facility] O:ECESBL Isolated Urine Culture - [facility] [place] Count Organism: 1.1 Antibiotic Interpretation TRINA Status Urine Culture - [facility] Cefepime R F Urine Culture - [facility] Testing performed at [facility] O:ECESBL Isolated Urine Culture - [facility] [place] Count Organism: 1.1 Antibiotic Interpretation TRINA Status Urine Culture - [facility] Ceftriaxone R F Urine Culture - [facility] Testing performed at [facility] O:ECESBL Isolated Urine Culture - [facility] [place] Count Organism: 1.1 Antibiotic Interpretation TRINA Status Urine Culture - [facility] Cefuroxime R F Urine Culture - [facility] Testing performed at [facility] O:ECESBL Isolated Urine Culture - [facility] [place] Count Organism: 1.1 Antibiotic Interpretation TRINA Status Urine Culture - [facility] Piperacillin/Tazoba ctam S F Urine Culture - [facility] Testing performed at [facility] O:ECESBL Isolated Urine Culture - [facility] [place] Count Organism: 1.1 Antibiotic Interpretation TRINA Status Urine Culture - [facility] Trimethoprim/Sulfa R F Urine Culture - [facility] Testing performed at [facility] O:ECESBL Isolated Urine Culture - [facility] [place] Count Organism: 1.1 Antibiotic Interpretation TRINA Status Performing Lab: see note ML - [facility] SEE REPORT - Band Maker Id information not found for 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 Reason For Referral No Information Medications Medication SIG (Take, Route, Frequency, Duration) Notes Start Date End Date Status Calcium Acetate (Phos Binder) 667 MG Oral for 30 Days Active OLANZapine 7.5 MG 1 tablet Orally Once a day Active Bumetanide 2 MG 1 tablet Orally Once a day on non hemodialysis days for 30 days Active Nuedexta 20-10 MG 1 capsule Orally BID Active Levalbuterol HCl 1.25 MG/3ML 3mL Inhalation Q8H for 90 days Active clonazePAM 0.5 MG 1 tablet at bedtime Orally TID Active Clindamycin Palmitate HCl - 20 ml Orally every 8 hrs Topical 1% Active Omeprazole 20 mg TAKE 1 CAPSULE BY [facility] TWICE DAILY for 30 Active Eliquis 2.5 MG as directed Orally BID Active dilTIAZem HCl 30 MG take 1 tablet Orally every 8 hours for 30 days Active Renal Vitamin 0.8 MG 1 tablet Orally Onc e a day Active EMLA Dialysis Active Sodium Chloride 0.9 % 3mL Inhalation TID for 30 10/01/2024 Active Sildenafil Citrate 20 MG 1 tablet Orally TID for 90 days Active Amoxicillin-Pot Clavulanate 875-125 MG 1 tablet Orally Twice a day for 14 days 01/09/2025 Active Amoxicillin 500 MG 2 capsule Orally twi ce daily for 14 days 01/09/2025 Active Ipratropium Cobb 0.02 % 2.5mL Inhalation Q8H for 90 days Active Benefiber - as directed Orally 06/08/2023 Active Mucinex 600 MG 2 tablet as needed Orally every 12 hrs 06/10/2024 Active Bactrim DS 800-160 MG 1 tablet Orally bi d for 10 days 12/31/2024 Active Metoprolol Tartrate 25 MG 1 tablet with food Orally Twice a day for 30 days Active Ipratropium Cobb 0.02 % 2.5mL Inhalation Q8H for 90 days Active predniSONE 20 MG 3 tablets Orally Onc e a day for 5 days 02/18/2025 Active Amoxicillin-Pot Clavulanate 875-125 MG 1 tablet Orally every 12 hrs for 10 days 02/18/2025 Active Immunizations Vaccine Route Administration Date Status Comme nts SARS-COV-2 (COVID 19 Moderna - Booster 0.25mL) Unknown 09/01/2021 Administered Social History Tobacco Use: Social History Observation Description Date Details (start date - stop date) Never Smoker NA - NA Tobacco Control (Standard) Question Answer Notes Tobacco use: Nonsmoker Problems Problem Type SNOMED Code ICD Code Onset Dates Problem Status W/U Status Risk Notes Problem 28056258 Unspecified Escherichia coli [E. coli] as the cause of diseases classified elsewhere (B96.20) Active confirmed Problem 297787147 Anemia, unspecified (D64.9) Active confirmed Problem Uncomplicated mild persistent asthma (241144508) Mild persistent asthma, uncomplicated (J45.30) Active confirmed Albuterol = Tachycardia & tremors Problem Bronchiolectasis (15838678) Bronchiectasis, uncomplicated (J47.9) Active confirmed Secondary to bronchopulmonary dysplasia Problem Chronic respiratory failure (25679471) Chronic respiratory failure with hypoxia (J96.11) Active confirmed Problem Chronic respiratory failure (53658900) Chronic respiratory failure with hypercapnia (J96.12) Active confirmed Problem 84991718 Other fecal abnormalities (R19.5) Active confirmed Problem 381246901187 Bacteremia (R78.81) Active confirmed Problem Solitary pulmonary nodule (308100702) Solitary pulmonary nodule (R91.1) Active confirmed RUL, unchange d since 06/2016 Problem 79388984 Hyperparathyroi dism (E21.3) Active confirmed Problem 383544901 Albuminuria (R80.9) Active confirmed Problem Intellectual disability (402562018) Intellectual disability (F79) Active confirmed Problem Bronchopulmonary dysplasia (85475879) 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 Problem Pulmonary Embolism (82923091) Multiple pulmonary emboli (I26.99) Active confirmed Managed by J obst Problem Hearing loss (95372248) Auditory impairment (H91.90) Active confirmed Problem Long-term current use of anticoagulant (560727595) Long-term (current) use of anticoagulants (Z79.01) Active confirmed Warfarin - Managed by Chema Problem Panacinar emphysema (7372650) 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 Problem Hypertensive pulmonary arterial disease (93245954) Secondary pulmonary arterial hypertension (I27.21) Active confirmed Problem Pulmonary hypertension (36579430) Pulmonary hypertension (I27.20) Active confirmed Problem End stage renal disease (19474424) End stage chronic kidney disease (N18.6) Active confirmed Problem Congenital blindness (65984745) Congenital blindness (H54.7) Active confirmed Problem Dependence on renal dialysis (024628813) Hemodialysis status (Z99.2) Active confirmed Vital Signs Heart Rate 69 /min 01/14/2025 Weight reported by caregiver Temperature 96.8 degrees Fahrenheit 01/14/2025 Weig ht reported by caregiver Respiratory Rate 18 /min 01/14/2025 Weight repo rted by caregiver Oximetry 98 % 01/14/2025 Weight reported by caregiver Blood pressure diastolic 73 mm Hg 01/14/2025 Rusty ght reported by caregiver Height 70 in 01/14/2025 Weight reported by caregiver Blood pressure systolic 135 mm Hg 01/14/2025 Weig ht reported by caregiver Weight 150.0 lbs 01/14/2025 Weight reported by caregiver BMI 21.52 kg/m2 01/14/2025 Weight reported by caregiver Encounters Encounter Location Date Provider Diagnosis [facility] [address] [place] [address] 11/14/2024 Quinn Canales Chronic respiratory failure with hypercapnia J96.12 ; Mild persistent asthma, uncomplicated J45.30 and Pulmonary hypertension I27.20 [facility] [address] [place] [address] 07/09/2024 Dea Cochran Chronic respiratory failure with hypoxia J96.11 ; Chronic respiratory failure with hypercapnia J96.12 ; Secondary pulmonary arterial hypertension I27.21 ; Mild persistent asthma, uncomplicated J45.30 ; 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 ; Bronchiectasis, uncomplicated J47.9 ; 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 ; Solitary pulmonary nodule R91.1 ; Multiple pulmonary emboli I26.99 ; End stage chronic kidney disease N18.6 ; Hemodialysis status Z99.2 ; Intellectual disability F79 ; Congenital 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 ; Auditory impairment H91.90 and Long-term (current) use of anticoagulants Z79.01 [facility] [address] [place] [address] 06/05/2024 Quinn Cristinay Acute bronchiolitis J21.9 [facility] [address] [place] [address] 01/14/2025 Dea Cochran Chronic respiratory failure with hypercapnia J96.12 ; Mild persistent asthma, uncomplicated J45.30 ; Chronic respiratory failure with hypoxia J96.11 ; Secondary pulmonary arterial hypertension I27.21 ; 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 ; Bronchiectasis, uncomplicated J47.9 ; 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 ; Solitary pulmonary nodule R91.1 ; Multiple pulmonary emboli I26.99 ; End stage chronic kidney disease N18.6 ; Hemodialysis status Z99.2 ; Intellectual disability F79 ; Congenital 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 ; Auditory impairment H91.90 and Long-term (current) use of anticoagulants Z79.01 [facility] [address] [place] [address] 03/15/2024 Quinn Canales End stage renal dise ase N18.6 ; Hypertension secondary to other renal disorders I15.1 ; Anemia, unspecified type D64.9 ; Chronic respiratory failure with hypoxia J96.11 and Hyperparathyroidism E21.3 [facility] [address] [place] [address] 04/04/2024 Quinn Canales [facility] [address] [place] [address] 04/09/2024 Quinn Canales [facility] [address] [place] [address] 05/23/2024 Quinn Canales Bronchiectasis, uncomplicated J47.9 [facility] [address] [place] [address] 06/10/2024 Quinn Canales [facility] [address] [place] [address] 08/12/2024 Dea Cochran Acute bronchitis, unspecified J20.9 [facility] [address] [place] [address] 08/20/2024 Dea [facility] Acute cough R05.1 [facility] [address] [place] [address] 08/26/2024 Dea [facility] Solitary pulmonary n odule R91.1 [facility] [address] [place] [address] 09/22/2024 Quinn Canales Acute bronchitis, unspecified J20.9 [facility] [address] [facility] [place] [address] 10/01/2024 Dea Cochran Acute bronchitis, unspecified J20.9 and Bronchiectasis, uncomplicated J47.9 [facility] [address] [facility] [place] [address] 10/25/2024 Quinn Canales [facility] [address] [facility] [place] [address] 11/03/2024 Quinn Canales [facility] [address] [facility] [place] [address] 12/09/2024 Quinn Canales Hematuria R31.9 [facility] [address] [place] [facility] [place] [address] 12/10/2024 Quinn Canales [facility] [address] [facility] [place] [address] 12/19/2024 Quinn Canales [facility] [address] [place] [facility] [place] [address] 12/31/2024 Quinn Canales [facility] [address] [facility] [place] [address] 01/02/2025 Quinn Canales [facility] [address] [place] [facility] [place] [address] 01/06/2025 Quinn Canales UTI (urinary tract infection) N39.0 [facility] [address] [facility] [place] [address] 01/07/2025 uQinn Canales [facility] [address] [facility] [place] [address] 01/08/2025 Quinn Canales [facility] [address] [facility] [place] [address] 01/14/2025 Quinn Canales Right knee pain M25. 561 [facility] [address] [facility] [place] [address] 01/14/2025 Quinn Canales [facility] [address] [facility] [place] [address] 01/31/2025 Quinn Canales Knee pain, right M25 .561 ; Knee pain, left M25.562 ; Hip pain, acute, right M25.551 ; Hip pain, acute, left M25.552 ; Ankle pain, left M25.572 and Ankle pain, right M25.571 [facility] [address] [place] [address] 02/04/2025 Quinn Canales [facility] [address] [place] [address] 02/05/2025 Dea Cochran [facility] [address] [place] [address] 02/13/2025 Quinn Canales [facility] [address] [place] [address] 02/18/2025 Quinn Canales Assessments Encounter Date Diagnosis (ICD Code) Assessment Notes Treatment Notes Treatment Clinical Notes Section Notes 11/14/2024 Mild persistent asthma, uncomplicated (ICD-10 - J45.30) Albuterol = Tachycardia & tremors 11/14/2024 Chronic respiratory failure with hypercapnia (ICD-10 - J96.12) 07/09/2024 Chronic respiratory failure with hypoxia (ICD-10 - J96.11) Jmsh-rk-ypcv encounter performed with the patient to document continued need for supplemental oxygen (O2). -Flow & directions: 2L/min O2 ATC; increases up to 5L/min with hemodialysis -Adherence to recommended usage: Father notes he wears O2 27/03 -Symptom control on O2: Rigo appears comfortable using O2 -Recommendations: Father reports SpO2 encroaching 100% on 3L/min @ rest. Explained with his hypercapnia, goal SpO2 is actually 88-92% to avoid hyperoxia-induced hypercapnia. Decrease O2 to 2L/min when sedentary and spot check his SpO2 during these periods. 06/05/2024 Acute bronchiolitis (ICD-10 - J21.9) 01/14/2025 Mild persistent asthma, uncomplicated (ICD-10 - J45.30) Albuterol = Tachycardia & tremors Recovering from pneumonia treated clinically - no CXR was done. Increased RLL crackles - he has had crackles in RLL in the past, but they typically have cleared with repeated breathing (but patient does not follow instructions). Patient has not been taking Mucinex - discussed restarting it at least for the next 2 weeks at 600mg - 2 tabs (1200mg) BID. Fluid intake is iffy given HD status. If he does not improve, will need imaging and further w/up. Pnlt-pz-cnjh encounter performed with the patient to document continued need for a nebulizer with nebulized medications. -Patient lacks the mental capacity and coordination to utilize traditional inhalers -Current nebulized medications: Levalbuterol, ipratropium -Symptom control: Less evidence of SOB -Reported side or adverse effects: None -Recommendations: Renew/reorder/rep lace nebulizer tubes and supplies, nebulizer as needed/required 01/14/2025 Chronic respiratory failure with hypercapnia (ICD-10 - J96.12) Rgjn-pr-smhn encounter performed with the patient to document continued need for NIV therapy. -Current DME: [facility] -Compliance was reviewed from 09/12/2024 - 12/10/2024 -Total days used: 89/90 (99%) -Total of all days >4 hours of use: 85/90 (94%) -Current mode: Trilogy Carter -Air leak average: 52.7L/min -Average Vt: 485mL -Mask/harness fitting: No issues reported. -Recommendations: Compliance has improved. No issues noted by mother/caregiver. Has air leak, but he is getting the pressures and volumes needed. Continue using it @ HS/naps and PRN dyspnea. -Note: This zknh-nd-znwu visit comes with my authorization that the patient's DME may request to renew, reorder, and/or replace tubing, supplies, mask, and/or PAP device (if applicable). 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) 05/23/2024 Bronchiectasis, uncomplicated (ICD-10 - J47.9) Secondary to bronchopulmonary dysplasia 08/12/2024 Acute bronchitis, unspecified (ICD-10 - J20.9) 08/20/2024 Acute cough (ICD-10 - R05.1) 08/26/2024 Solitary pulmonary nodule (ICD-10 - R91.1) RUL, unchanged since 06/201609/22/2024 Acute bronchitis, unspecified (ICD-10 - J20.9) 10/01/2024 Acute bronchitis, unspecified (ICD-10 - J20.9) 10/01/2024 Bronchiectasis, uncomplicated (ICD-10 - J47.9) Secondary to bronchopulmonary dysplasia 12/09/2024 Hematuria (ICD-10 - R31.9) 01/06/2025 UTI (urinary tract infection) (ICD-10 - N39.0) 01/14/2025 Right knee pain (ICD-10 - M25.561) 03/15/2024 End stage renal disease (ICD-10 - N18.6) 01/31/2025 Knee pain, right (ICD-10 - M25.561) 01/31/2025 Knee pain, left (ICD-10 - M25.562) 03/15/2024 Anemia, unspecified type (ICD-10 - D64.9) 01/31/2025 Hip pain, acute, right (ICD-10 - M25.551) 01/14/2025 Chronic respiratory failure with hypoxia (ICD-10 - J96.11) Tnsu-cn-oywy encounter performed with the patient to document continued need for supplemental oxygen (O2). -Flow & directions: 2L/min O2 ATC; increases up to 5L/min with hemodialysis -Adherence to recommended usage: Caregiver states patient uses O2 -Symptom control on O2: He does not appear dyspneic -Recommendations: Continue O2. Goal SpO2 = 88-92% to avoid hyperoxia-induced hypercapnia. 07/09/2024 Chronic respiratory failure with hypercapnia (ICD-10 - J96.12) Hyca-zu-xddq encounter performed with the patient to document continued need for NIV therapy. -Current DME: [facility] -Compliance was reviewed from 06/09/2024 - 07/08/2024 -Total days used: (70%) -Total of all days >4 hours of use: 08/03 (37%) -Current mode: Trilogy Carter -Air leak average: 49.9L/min -Average Vt: 496mL -Mask/harness fitting: No issues reported. -Recommendations: Compliance is decreased from last visit. Looking into data further, some parameters appear erratic such as I:E and minute ventilation when compared day to day. Based on prior encounters, I do feel that Rigo's caregivers are doing their best to have him wear the NIV. They are encouraged to have him use it at bedtime, with naps, and as needed for shortness of breath. -Note: This wgsg-nl-bmop visit comes with my authorization that the patient's DME may request to renew, reorder, and/or replace tubing, supplies, mask, and/or PAP device (if applicable). 11/14/2024 Pulmonary hypertension (ICD-10 - I27.20) 01/14/2025 Secondary pulmonary arterial hypertension (ICD-10 - I27.21) Patient remains on Revatio. Other than a brief time during HD, there have been no reports of hypotension. Ejcl-wb-elzv performed regarding continued need for Revatio (sildenafil). Given patient's multiple issues, family has elected not to proceed with any cardiac catheterization. 07/09/2024 Secondary pulmonary arterial hypertension (ICD-10 - I27.21) Patient remains on Revatio. He has not had significant issues associated with his pulmonary hypertension since started on it several years ago. Due to patient's multiple medical conditions, the family elected not to proceed with right sided heart catheterization as the risks were felt to be greater than benefits. Recommend continuing rev audio at this time as he is doing well. No significant issues of hypotension have been noted. 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 [id number] encounter performed with the patient to document continued need for a nebulizer with nebulized medications. 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 01/14/2025 Multiple pulmonary emboli (ICD-10 - I26.99) Managed by Chema Followed by Chema. 07/09/2024 Solitary pulmonary nodule (ICD-10 - R91.1) RUL, unchanged since 06/2016 No further w/up planned. 07/09/2024 Multiple pulmonary emboli (ICD-10 - I26.99) Managed by Chema Followed by Keit. 01/14/2025 End stage chronic kidney disease (ICD-10 - N18.6) On HD M&F. 07/09/2024 End stage chronic kidney disease (ICD-10 - N18.6) On HD M&F. 01/14/2025 Hemodialysis status (ICD-10 - Z99.2) Anticipated life-long HD at this point. 07/09/2024 Hemodialysis status (ICD-10 - Z99.2) Anticipated life-long HD at this point. 01/14/2025 Intellectual disability (ICD-10 - F79) Parents are his caregivers. He continues to peer to be in excellent health considering his multiple medical issues. 01/14/2025 Congenital blindness (ICD-10 - H54.7) 07/09/2024 Intellectual disability (ICD-10 - F79) Parents are his caregivers. He continues to peer to be in excellent health considering his multiple medical issues. 01/14/2025 Auditory impairment (ICD-10 - H91.90) 07/09/2024 Congenital blindness (ICD-10 - H54.7) 01/14/2025 Long-term (current) use of anticoagulants (ICD-10 - Z79.01) Warfarin - Managed by Jobst 07/09/2024 Auditory impairment (ICD-10 - H91.90) 07/09/2024 Long-term (current) use of anticoagulants (ICD-10 - Z79.01) Warfarin - Managed by Sokratit 06/05/2024 Other Recommended keeping a rescue inhaler on hand and to be aware of asthma triggers. Go to ER if breathing becomes difficult and prevents you from participating in normal daily activities Plan Of Treatment Pending Test Test Name Order Date CMP (COMPLETE METABOLIC PANEL) UA (URINALYSIS, COMPLETE) 12/09/2024 UA (URINALYSIS, COMPLETE) 01/23/2017 UA (URINALYSIS, COMPLETE) 01/06/2025 ALBUMIN, BLOOD 01/23/2017 MAGNESIUM 01/23/2017 CBC NO DIFF 01/23/2017 BMP (BASIC MET PANEL - W/GFR) 01/23/2017 MICROALBUMIN with ALB/CREAT RATIO, URINE (MALB)) 01/23/2017 PHOSPHORUS 01/23/2017 Urine Culture 01/06/2025 CBC W/AUTO DIFF 03/15/2024 STOOL OCCULT BLOOD 03/15/2024 CULTURE URINE 12/09/2024 GLYCOHEMOGLOBIN A1C 03/15/2024 LIPID PROFILE 03/15/2024 URINE MICROSCOPIC ONLY 12/09/2024 URINE MICROSCOPIC ONLY 01/06/2025 THYROID PANEL (T4/TSH/FREE T3) PSA, SCREENING 03/15/2024 CT HIP LEFT WO CONTRAST 01/31/2025 CT HIP RIGHT WO CONTRAST 01/31/2025 CT KNEE RIGHT WO CONTRAST 01/31/2025 CT KNEE LEFT WO CONTRAST 01/31/2025 CT ANKLE RIGHT WO CONTRAST 01/31/2025 CT ANKLE LEFT WO CONTRAST 01/31/2025 Next Appt Details Provider Name:Quinn Canales, 01:00:00 PM, [address] [place], [address], Provider Name:Dea Cochran, 07/15/2025 11:00:00 AM, [address] [facility], [place], [address], Insurance Providers Payer Name Payer Address Payer Phone Subscriber Number Group Number Insured Name Patient Relationship to Insured Coverage Start Date Coverage End Date [place] [address] [place] [address] [id number] Rigo Palmer Self - patient is the insured 5 [place]ID [place] 2ND INS [address] [place], [place] [id number] Rigo Palmer Self - patient is the insured 4 Medical (General) History Medical History History ICD Code 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 Mild persistent asthma, uncomplicated J4 5.30 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 Bronchiectasis, uncomplicated J47.9 Chronic respiratory failure with hypoxia J96.11 Chronic respiratory failure with hyperca pnia J96.12 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 Multiple pulmonary emboli I26.99 Solitary pulmonary nodule R91.1 Essential hypertension I10 End stage chronic kidney disease N18.6 Hemodialysis status Z99.2 Cerebral palsy G80.9 Congenital 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 Auditory impairment H91.90 Intellectual disability F79 Long-term (current) use of anticoagulant s Z79.01 Congestive heart failure (CHF) I50.9 cerebral palsy Surgical History Surgery Date(Month/Year) dialysis fistula portacath placement Eye Surgery- attempt to reattach retina 1984, second attempt 1985 Left Inguinal Hernia Repair 1984 Inguinal Hernia repair 1984 fistula umbilical hernia repair Cleaning of ear canals Surgical / procedural histor y tonsils and adenoids removed, ear tubes inserted, central line IV inserted, cleaning of ear canals, entropion repair of right lower eye lid (twice), eye surgery reattach retina Hospitalization History Reason Date(Month/Year) Vascular Graft Re[facility]- [facility] ([facility]) 08[place] [place] [place] [place] U[place] 04/21/2018
--- OUTSIDE RECORDS SUMMARY | 2025-02-18 15:47 | XMS_ITS | Referral Summary ---
Author Organization [facility] Address [address] [address] Care Team Providers Care Recreation Center Director Name Role Phone Unavailable Primary Care Provider [...]
--- OUTSIDE RECORDS SUMMARY | 2025-02-18 15:47 | XMS_ITS | Encounter Summary ---
Author Organization [facility] Address [address] [place] [address] Care Team Providers Care Journeyman Plumber Name Role Phone Simón Canales MD Primary Care Provider [phone] Encounter Details Date Type Department Care Team ([facility] st Contact Info) Description 05/27/2021 Abstract [facility] [address] [facility] [address] [place] [id number] Gavin Chen MD [address] [place], [place] [id number] Social History Tobacco Use Types Packs/Day Years Used Date Smoking Tobacco: Never Assessed Sex and Gender Information Value Date Recorded Sex Assigned at Male 06/29/2023 8:11 PM EDT Legal Sex Male 12:47 PM EST Gender Identity Male 06/29/2023 8:11 PM EDT Sexual Orientation Not on file documented as of this encounter Plan of Treatment Not on file documented as of this encounter Visit Diagnoses Not on filedocumented in this encounter Care Teams Journeyman Plumber Relationship Specialty Start Date End Date Simón Canales MD [address] [place] [address] PCP - General Family Medicine 05/13/21 documented as of this encounter
--- OUTSIDE RECORDS SUMMARY | 2025-02-18 15:47 | XMS_ITS | Clinical Summary ---
Author Organization [facility] Address [address] [address] Care Team Providers Care Rn Flight Name Role Phone Simón Canales MD Primary Care Provider [phone] Allergies Active Allergy Reactions Criticality Noted Date Comments Ciprofloxacin Hcl Hives 03/17/2021 Latex Hives 05/13/2021 Medications bumetanide (BUMEX) 2 MG tablet Take 1 tablet by mouth daily 1 Active clonazePAM (KLONOPIN) 0.5 MG tablet Take 1 tablet by mouth 3 times daily as needed for Anxiety. Active dilTIAZem (CARDIZEM) 30 MG tablet Take 1 tablet by mouth 3 times daily 1 Active ipratropium (ATROVENT) 0.02 % nebulizer solution Inhale 2.5 mLs into the lungs 3 times daily Active levalbuterol (XOPENEX) 1.25 MG/3ML nebulizer solution Inhale 3 mLs into the lungs 3 times daily Active metoprolol tartrate (LOPRESSOR) 25 MG tablet Take 1 tablet by mouth 2 times daily 1 Active omeprazole (PRILOSEC) 20 MG delayed release capsule Take 1 capsule by mouth 2 times daily Active sildenafil (REVATIO) 20 MG tablet Take 1 tablet by mouth 3 times daily Active NUEDEXTA 20-10 MG CAPS per capsule TAKE 1 CAPSULE BY MOUTH TWICE DAILY 2 Active B Oyhgqlr-O-Kyspf n-E-Min-FA (DIALYVITE 3000) 3 MG TABS Take by mouth Active clindamycin (CLINDAGEL) 1 % gel Apply topically 2 times daily Apply topically 2 times daily. Active carboxymethylce llulose 1 % ophthalmic solution Place 1 drop into both eyes 2 times daily Active calcium acetate (PHOSLO) 667 MG CAPS capsule Take 1 capsule by mouth 3 times daily (with meals) Active FIBER, CORN DEXTRIN, PO Take by mouth Acti ve apixaban (ELIQUIS) 2.5 MG TABS tablet Take 1 tablet by mouth 2 times daily Active OLANZapine (ZYPREXA) 7.5 MG tablet Take 1 tablet by mouth nightly Active Active Problems Problem Noted Date Diagnosed Date Dialysis AV fistula malfunction 08/04/2023 S/P arteriovenous (AV) fistula creation 06/13/20 E-coli UTI 05/27/2023 Acute on chronic respiratory failure with hypoxi a 05/27/2023 RILEY (obstructive sleep apnea) 05/27/2023 Cognitive developmental delay 05/27/2023 Cerebral palsy 05/27/2023 ESRD (end stage renal disease) 05/27/2023 Anemia, chronic disease 05/27/2023 Problem with vascular access 05/26/2023 AV graft thrombosis, initial encounter Stenosis of AV fistula, initial encounter 2021 Social History Tobacco Use Types Packs/Day Years Used Date Smoking Tobacco: Never Smokeless Tobacco: Never Tobacco Cessation:Counseling Given: Not Answered Alcohol Use Standard Drinks/Week Comments Never 0 (1 standard drink = 0.6 oz pur e alcohol) [facility] Utilities Answer Date Recorded In the past 12 months has e [employer], gas, oil, or water [employer] threatened to shut off services in your home? No 08/05/2023 Hunger Vital Sign Answer Date Recorded Within the past 12 months, y ou worried that your food would run out before you got the money to buy more. Never true 08/05/20 Within the past 12 months, t he food you bought just didn't last and you didn't have money to get more. Never true 08/05/2023 PRAPARE - Transportation Answer Date Re corded In the past 12 months, has l ack of transportation kept you from medical appointments or from getting medications? No 10/2022 In the past 12 months, has l ack of transportation kept you from meetings, work, or from getting things needed for daily living? No 08/05/2023 Housing Stability Vital Sign Answer Chema e Recorded In the last 12 months, was t here a time when you were not able to pay the mortgage or rent on time? No 08/05/2023 In the last 12 months, how many places have you lived? 1 08/05/2023 In the last 12 months, was t here a time when you did not have a steady place to sleep or slept in a usp (including now)? No 08/05/2023 Interpersonal Safety ([facility] HRSN) Answer Date Recorded How often does anyone, celi montoya family and friends, physically hurt you? 1 08/05/2023 How often does anyone, celi montoya family and friends, scream or curse at you? Not on file 08/05/2023 How often does anyone, celi montoya family and friends, insult or talk down to you? Not on file 08/05/2023 How often does anyone, celi montoya family and friends, threaten you with harm? Not on file 08/05/2023 Food Insecurity Answer Date Recorded Within the past 12 months, y ou worried that your food would run out before you got the money to buy more. 1 08/05/2023 Within the past 12 months, t he food you bought just didn't last and you didn't have money to get more. 1 08/05/2023 Interpersonal Safety Domain Source: IP Abuse Scr eening Answer Date Recorded Read-Only, Retired: Physical Abuse Unable to ass ess 08/05/2023 Verbal abuse Not on file 08/05/2023 Emotional abuse Not on file 08/05/2023 Financial abuse Not on file 08/05/2023 Sexual abuse Not on file 08/05/2023 Sex and Gender Information Value Date Recorded Sex Assigned at Male 06/29/2023 8:11 PM EDT Legal Sex Male 12:47 PM EST Gender Identity Male 06/29/2023 8:11 PM EDT Sexual Orientation Not on file Last Filed Vital Signs Vital Sign Reading Time Taken Comments Blood Pressure 160/73 09/12/2024 6:00 PM EST Pulse 72 09/12/2024 6:00 PM EST Temperature 36 C (96.8 F) 09/12/2024 2:33 PM EST Respiratory Rate 12 09/12/2024 2:33 PM EST Oxygen Saturation 100% 09/12/2024 6:00 PM EST Inhaled Oxygen Concentration - - Weight 64.9 kg (143 lb) 05/21/2024 12:45 PM EDT Height 170.2 cm (5' 7 ) 05/21/2024 12:45 PM EDT Body Mass Index 22.4 05/21/2024 12:45 PM EDT Plan of Treatment Health Maintenance Due Date Last Done Comments Depression Screen 1996 Varicella vaccine (1 of 2 - 13+ 2-dose series) 1997 DTaP/Tdap/Td vaccine (6 - Tdap) 04/09/1999 04/08/1999, 10/30/1989, 03/19/1986, Additional history exists HIV screen 1999 Hepatitis C screen 2002 Pneumococcal 0-49 years Vaccine (1 of 2 - PCV) 2003 Annual Wellness Visit (Medicare) 07/31/2023 COVID-19 Vaccine ( season) 2024 08/01/2022, 09/01/2021, 10/29/2020, Additional history exists Lipids 2024 Flu vaccine (Season Ended) 2025 06/26/2023, Shingles vaccine (1 of 2) 2034 Polio vaccine Completed 03/19/1986, 11/02, 06/21/1985, Additional history exists Hib vaccine Completed 09/24/1986 Hepatitis B vaccine Completed 08/30/1999, 04/08/1999, 02/26/1999 GFR test (Diabetes, CKD 3-4, OR last GFR 15-59) Discontinued 08/07/2023, 08/06/2023, 08/05/2023, Additional history exists HPV vaccine Aged Out No longer eligi ble based on patient's age to complete this topic Hepatitis A vaccine Aged Out No longe r eligible based on patient's age to complete this topic Meningococcal (ACWY) vaccine Aged Out No longer eligible based on patient's age to complete this topic Meningococcal B vaccine Aged Out No l onger eligible based on patient's age to complete this topic Medical Devices Implanted Type Area Student Teaching Coordinator Device Identifier Shelf Expiration Date Model / Serial / Lot Graft Vasc L40cm Dia6mm Bov Car Art Cllgn For Func Had Accs - [id number] Implanted:Qty : 1 on 01/18/2022 by Osmar Alvarez MD at [facility] Vascular grafts Left: Arm [employer]WD 05/01/2024 [id number] / / [id number] Graft Vasc L300mm Od4-7mm Univ Eptfe Str Std Wall Tapr - [id number] Implanted:Qty : 1 on 06/13/2023 by Osmar Alvarez MD at [facility] Vascular grafts Left: Arm BARD [employer]-WD [id number] 09/08/2027 [id number] / / [id number] Procedures Procedure Name Priority Date/Time Associated Diagnosis Comments BASIC METABOLIC PANEL W/ REFLEX TO MG FOR LOW K Routine 08/07/2023 6:29 AM EST from Last 3 Months or Most Recently Relevant to Health Maintenance Results * (ABNORMAL) Basic Metabolic Panel w/ Reflex to MG (08/07/2023 6:29 AM EST) Sodium 139 135 - 144 mmol/L 08/07/2023 6:29 AM EST [facility] Potassium 4.2 3.7 - 5.3 mmol/L 08/07/2023 6:29 AM EST [facility] Chloride 100 98 - 107 mmol/L 08/07/2023 6:29 AM EST [facility] CO2 24 20 - 31 mmol/L 08/07/2023 6:29 AM EST [facility] Anion Gap 15 9 - 17 mmol/L 08/07/2023 6:29 AM EST [facility] Glucose 93 70 - 99 mg/dL 08/07/2023 6:29 AM EST [facility] BUN 77(H) 6 - 20 mg/dL 08/07/2023 6:29 AM EST [facility] Creatinine 5.9(HH) 0.7 - 1.2 mg/dL 08/07/2023 6:29 AM EST [facility] Comment:Previous Alert Value Reported Est, Glom Filt Rate 12(L) >60 mL/min/1. 73m2 08/07/2023 6:29 AM EST [facility] Comment: These results are not intended for [...] following therapy that affects renal tubular secretion. Calcium 9.0 8.6 - 10.4 mg/dL 08/07/2023 6:29 AM EST [facility] Blood BLOOD SPECIMEN / Unknown 08/07/2023 6:29 AM EST 08/07/2023 6:47 AM EST Mimi Bridges APRN - LILIYA CHEMISTRY ORDERABLES Hanny mei Result [facility] [address] [id number], [facility] [phone] from Last 3 Months or Most Recently Relevant to Health Maintenance [place] [address] MEDICAID [place] Advance Directives Documents on File Type Date Recorded Patient Boot Maker Expl anation ACP-Guardianship 05/22/2024 5:12 PM ACP-Guardianship 08/08/2023 3:02 PM ACP-Do Not Resuscitate 08/08/2023 2:53 PM ACP-Do Not Resuscitate 06/16/2023 12:25 PM ACP-Guardianship 06/16/2023 12:25 PM ACP-Guardianship 06/13/2023 10:[address] [facility] PROBATE VISION, LETTER OF GUARDIANSHIP ACP-Do Not Resuscitate 06/13/2023 10:40 AM DNR COMFORT CARE ACP-Guardianship 05/30/2023 2:51 PM ACP-Do Not Resuscitate 05/30/2023 2:51 PM * Full Code (Latest Code Status on File) Date Activated Date Inactivated Comments 09/12/2024 2:10 PM 09/12/2024 8:26 PM * Full Code Date Activated Date Inactivated Comments 05/21/2024 12:42 PM 05/21/2024 6:06 PM * DNR-CCA Date Activated Date Inactivated Comments 08/05/2023 5:43 AM 08/07/2023 11:22 PM * Full Code Date Activated Date Inactivated Comments 08/05/2023 12:10 AM 08/05/2023 5:43 AM * Full Code Date Activated Date Inactivated Comments 06/13/2023 6:08 PM 06/14/2023 8:59 PM Care Teams Rn Flight Relationship Specialty Start Date End Date Simón Canales MD [address] [place] [address] PCP - General Family Medicine 05/13/21
--- OUTSIDE RECORDS SUMMARY | 2025-02-18 15:47 | XMS_ITS | Clinical Summary ---
Author Organization [facility] Address [address] [place] [address] Phone Care Team Providers Care Geotechnical Laboratory Technician Name Role Phone Aries Reed MD Primary Care Provider + Social History Tobacco Use Types Packs/Day Years Used Date Smoking Tobacco: Never Assessed Sex and Gender Information Value Date Recorded Sex Assigned at Not on file Legal Sex Male 11:02 AM EST Gender Identity Not on file Sexual Orientation Not on file Plan of Treatment Not on file Care Teams Geotechnical Laboratory Technician Relationship Specialty Start Date End Date Aries Reed MD PCP - General 12/09/11
== END 2025-02-18 15:45 | disposition home or self-care (01) ==
LOC: CT 15:44
PROVIDERS: PCP Family Medicine; Visit Provider Family Medicine
DX: M25.572 Pain in left ankle and joints of left foot (principal); M25.571 Pain in right ankle and joints of right foot; M25.552 Pain in left hip; M25.551 Pain in right hip; M25.561 Pain in right knee; M25.562 Pain in left knee; M87.051 Idiopathic aseptic necrosis of right femur
CPT/HCPCS: 73700

== ENCOUNTER 2025-02-20 15:34 | Outpatient (OUT) | payer MEDICARE, MEDICAID, SELFPAY ==
--- NOTE | 2025-02-20 | CT_ITS ---
The [address] [address] Patient Name: RIGO REDDY MRN: [id number] date: 1985 Sex: M Assigned Patient Location: CT Current Patient Location: CT Accession/Order Number: [id number] Exam Date: 02/20/2025 16:09 Report Date: 02/20/2025 16:18 At the request of: DENIS MELVIN MD Procedure: CT knee LT wo con CT right knee without contrast TECHNIQUE: The CT exam was performed using one or more the following dose reduction techniques: Automated exposure control, adjustment of the MA and/or Kv according to patient size, or use of the iterative reconstruction technique. COMPARISON: Plain film imaging 01/14/2025 HISTORY: Bilateral knee pain. Increased weakness. Difficulty walking. Distal femur intact. Proximal tibia and fibula intact. Adequate bony alignment. No acute displaced fracture. Minor marginal spurring. Adequate joint spaces. No joint effusion. No gross muscular or subcutaneous abnormality seen with CT examination. Decreased bony mineralization. No gross internal derangement seen. CT/CT knee RT wo con IMPRESSION: Mildly degeneration. Decreased mineralization. No acute bony findings. No joint effusion. Continued concern for internal arrangement may be further assessed with MRI the right knee. CT left knee without contrast TECHNIQUE: The CT exam was performed using one or more the following dose reduction techniques: Automated exposure control, adjustment of the MA and/or Kv according to patient size, or use of the iterative reconstruction technique. COMPARISON: None HISTORY: Bilateral knee pain The distal femur, proximal tibia and fibula intact. Adequate alignment. No joint effusion. Mild medial joint space narrowing. Marginal spurring. No acute displaced fracture. No muscular or subcutaneous abnormality seen with CT exam. Decreased bony mineralization. No gross internal derangement identified. IMPRESSION: Mild degeneration. No acute findings. No joint effusion. Decreased bony mineralization. Continued concern for internal arrangement may be further assessed with MRI of the left knee. Impression dictated by: Rojas Navarrete M.D. 02/20/2025 4:18 PM Dictation Location: [place] [address] Electronically authenticated by: [id number] Y Date: 02/20/2025 16:18
--- NOTE | 2025-02-20 | CT_ITS ---
The [address] [address] Patient Name: RIGO REDDY MRN: [id number] date: 1985 Sex: M Assigned Patient Location: CT Current Patient Location: CT Accession/Order Number: [id number] Exam Date: 02/20/2025 16:09 Report Date: 02/20/2025 16:18 At the request of: DENIS MELVIN MD Procedure: CT knee LT wo con CT right knee without contrast TECHNIQUE: The CT exam was performed using one or more the following dose reduction techniques: Automated exposure control, adjustment of the MA and/or Kv according to patient size, or use of the iterative reconstruction technique. COMPARISON: Plain film imaging 01/14/2025 HISTORY: Bilateral knee pain. Increased weakness. Difficulty walking. Distal femur intact. Proximal tibia and fibula intact. Adequate bony alignment. No acute displaced fracture. Minor marginal spurring. Adequate joint spaces. No joint effusion. No gross muscular or subcutaneous abnormality seen with CT examination. Decreased bony mineralization. No gross internal derangement seen. CT/CT knee LT wo con IMPRESSION: Mildly degeneration. Decreased mineralization. No acute bony findings. No joint effusion. Continued concern for internal arrangement may be further assessed with MRI the right knee. CT left knee without contrast TECHNIQUE: The CT exam was performed using one or more the following dose reduction techniques: Automated exposure control, adjustment of the MA and/or Kv according to patient size, or use of the iterative reconstruction technique. COMPARISON: None HISTORY: Bilateral knee pain The distal femur, proximal tibia and fibula intact. Adequate alignment. No joint effusion. Mild medial joint space narrowing. Marginal spurring. No acute displaced fracture. No muscular or subcutaneous abnormality seen with CT exam. Decreased bony mineralization. No gross internal derangement identified. IMPRESSION: Mild degeneration. No acute findings. No joint effusion. Decreased bony mineralization. Continued concern for internal arrangement may be further assessed with MRI of the left knee. Impression dictated by: Rojas Navarrete M.D. 02/20/2025 4:18 PM Dictation Location: [place] [address] Electronically authenticated by: [id number] Y Date: 02/20/2025 16:18
== END 2025-02-20 15:35 | disposition home or self-care (01) ==
LOC: CT 15:34
PROVIDERS: PCP Family Medicine; Visit Provider Family Medicine
DX: M25.572 Pain in left ankle and joints of left foot (principal); M25.571 Pain in right ankle and joints of right foot; M25.551 Pain in right hip; M25.552 Pain in left hip; M25.561 Pain in right knee; M25.562 Pain in left knee
CPT/HCPCS: 73700